=== PATIENT | male | born 1940 | race Caucasian/White ===

== ENCOUNTER → 2020-06-11 08:27 | Outpatient (BNVA) | payer OTHER, MEDICARE, SELFPAY | PROVIDERS: PCP Pediatrics; Visit Provider Internal Medicine Cardiovascular Disease | DX: I48.0 Paroxysmal atrial fibrillation (principal); I10 Essential (primary) hypertension; Z79.01 Long term (current) use of anticoagulants; Z79.899 Other long term (current) drug therapy | CPT/HCPCS: 99212 ==

== ENCOUNTER → 2020-12-11 10:09 | Outpatient (REF) | payer OTHER, MEDICARE, SELFPAY ==
--- NOTE | 2020-12-11 10:13 | CA_ITS ---
Transthoracic Echocardiogram Patient (Last, First, Middle): Rm Palumbo, Gender: Male Date of : 1940 Age: 80 Procedure Date: 12/11/2020 Procedure Type: Transthoracic Echocardiogram Location: OP Height: 177.8 cm Weight: 97.52 kg BSA: 2.15 m2 Heart Rate: bpm BP: 134 / 60 mmHg Senior Quality Control Inspector: Referring MD: Lazaro Blake MD Symptoms: I48.0 - Paroxysmal atrial fibrillation Study Quality: Good ECG Rhythm: Sinus Conclusions: - The left ventricular systolic function is normal. The visually estimated ejection fraction is between 60-65%. - E/E prime ratio is between 8 and 15 consistent with indeterminate filling pressures. Evidence suggests grade I (mild) diastolic dysfunction. - Possible basal inferior hypokinesis in some views. - There is mild calcification of the aortic valve. - There is mild mitral annular calcification. There is mild to moderate mitral valve regurgitation. Findings Left Ventricle Normal left ventricular cavity size. There is mildly increased left ventricular wall thickness. The left ventricular systolic function is normal. The visually estimated ejection fraction is between 60-65%. E/E prime ratio is between 8 and 15 consistent with indeterminate filling pressures. Evidence suggests grade I (mild) diastolic dysfunction. Right Ventricle Normal right ventricular cavity size and systolic function. Atria Both atria are normal in size. Aortic Valve There is a normal trileaflet aortic valve. There is mild calcification of the aortic valve. There is no aortic valve stenosis. There is no aortic valve regurgitation. Mitral Valve There is mild anterior mitral leaflet thickening. There is mild mitral annular calcification. There is mild to moderate mitral valve regurgitation. There is no mitral valve stenosis. Pulmonic Valve The pulmonic valve was not well visualized. Tricuspid Valve There is trace tricuspid valve regurgitation. The pulmonary artery systolic pressure is normal. Great Vessels Top normal ascending aortic size at 3.7 cm. Venous The inferior vena cava is normal in size and collapses greater than 50% with inspiration. Pericardium/Pleural There is no evidence of pericardial effusion. Prior Study Comparison Changes noted compared to prior study dated: 12/08/2017. See comments on wall motion. Measurements 2D Linear Measurements RVIDd: 3.18 RVIDd Index: 1.48 IVSd: 1.01 0.6-0.9/0.6-1.0 cm LVIDd: 4.49 3.9-5.3/4.2-5.9 cm LVIDd Index: 2.09 2.4-3.2/2.2-3.1 cm/m2 LVIDs: 2.78 2.0-3.6 cm LVPWd: 1.19 0.7-1.1 cm Ao Root: 3.80 2.1-3.5 cm LA Diam: 4.50 2.7-3.8/3.0-4.0 cm LAIDs Index: 2.09 1.5-2.3 cm/m2 LV Mass: 217.26 67-162/88-224 g LV Mass Index: 101.05 43-95/49-115 g/m2 LVOT Diam: 2.50 3.0+(-)1.3 cm 2D Systolic Function EF 4C: 56.90 >55% EF 2C: 60.20 >55% EF BiP: 59.00 >55% Mitral Valve MV Pk E: 0.96 MV PK A: 1.30 MV Decel Time: 248.00 E/A: 0.70 E'Lateral: 9.14 E'Medial: 5.66 E/E' Med: 16.90 E/E' Lat: 10.40 MR Vol - PW Dopp: 45.36 MR VTI: 1.62 MR ERO: 28.00 MR Alias Julio: 0.36 MR RAD: 0.80 Aortic Valve AoV Pk Julio: 1.22 AoV Mn Julio: 1.00 AoV VTI: 0.26 AoV Pk Grad: 6.00 Aov Mn Grad: 4.00 CHRIS Cont.VTI: 4.87 LVOT LVOT Pk Julio: 1.02 LVOT Mn Julio: 0.70 LVOT VTI: 0.25 LVOT Pk Grad: 4.00 LVOT Mn Grad: 2.00 LVOT Diam: 2.50 LVOT Area: 4.91 Diastolic Function MV Pk E: 0.96 MV Pk A: 1.30 E/A: 0.70 E'Medial: 5.66 E/E' Med: 16.90 E' Laterial: 9.14 E/E' Lat: 10.40 Tricuspid Valve TR Pk Julio: 2.55 TR Pk Grad: 26.00 RA Press: 3.00 RVSP: 29.00 Great Vessels Aorta Ao Root-2D: 3.80 2.0-3.7 cm Ao Asc: 3.70 2.1-3.4 cm Ao Arch: 3.40 Updated in Other Vendor System with Status of Final Tonio Tidwell MD electronically signed on 12/12/2020 12:50:35 PM with status of Final
== END ==
LOC: HO.CARD 10:09
PROVIDERS: Visit Provider Internal Medicine Cardiovascular Disease
DX: I10 Essential (primary) hypertension (principal); I48.0 Paroxysmal atrial fibrillation
CPT/HCPCS: 93306

== ENCOUNTER → 2020-12-12 08:29 | Outpatient (BNVA) | payer OTHER, MEDICARE, SELFPAY | PROVIDERS: PCP Pediatrics; Visit Provider Internal Medicine Cardiovascular Disease | DX: I48.0 Paroxysmal atrial fibrillation (principal); I10 Essential (primary) hypertension | CPT/HCPCS: 93005; 99212 ==

== ENCOUNTER 2020-12-17 14:47 | Emergency (ER) | payer OTHER, MEDICARE, SELFPAY ==
--- NOTE | ~2020-12-17 | CT_ITS ---
EXAMINATION: CT HEAD WITHOUT CONTRAST CLINICAL INFORMATION: Left-sided headache. Blurry vision. Sensation radiating down left side of body COMPARISON: CT head 03/25/2019. TECHNIQUE: Contiguous axial imaging was performed from the skull base to vertex without intravenous administration of contrast. This CT examination was performed using dose optimization techniques as appropriate, variously including the following: *Automated exposure control *Adjustment of mA and/or kV according to patient size (this includes techniques or standardized protocols for targeted exams where dose is matched to indication/reason for exam; i.e. extremities or head) *Use of iterative reconstruction technique DLP: 689 mGy-cm FINDINGS: There is no evidence of acute intracranial hemorrhage or territorial infarction. No abnormal mass effect or midline shift is seen. Up to white matter differentiation is well preserved. No extra-axial fluid collections are identified. The ventricles are normal in size. There is no abnormal attenuation within the brain parenchyma. The osseous structures and soft tissues are normal. The mastoid air cells and visualized portions of the paranasal sinuses are well aerated. CT/CT head/brain wo con IMPRESSION: No acute intracranial pathology.
[2020-12-17 15:08] VITALS: BP 139/70; PULSE 65; RESP 18; TEMP 37.2; O2SAT 95; BMI 30.8
--- NOTE | 2020-12-17 15:52 | ECG_ITS ---
Test Reason : LLANOS/blurry vision Blood Pressure : / mmHG Vent. Rate : 057 BPM Atrial Rate : 057 BPM P-R Int : 212 ms QRS Dur : 082 ms QT Int : 420 ms P-R-T Axes : 091 009 030 degrees QTc Int : 408 ms Sinus bradycardia with 1st degree A-V block Otherwise normal ECG When compared with ECG of 25-MAR-2019 14:08, No significant change was found Referred By: Majo Chen Electronically Signed By:Remington Johnson
--- NOTE | 2020-12-17 15:54 | ED.GENADULT ---
HPI - General Adult General Chief complaint: General Medical <FEMI Turner - Last Filed: 12/17/20 17:02> Stated complaint: double vision <FEMI Turner - Last Filed: 12/17/20 17:02> Time Seen by Provider: 12/17/20 15:37 <FEMI Turner Last Filed: 12/17/20 17:02> Source: patient <FEMI Turner Last Filed: 12/17/20 17:02> Mode of arrival: ambulatory <FEMI Turner - Last Filed: 12/17/20 17:02> History of Present Illness HPI narrative: 80-year-old male with a past medical history of hypertension, proximal AFib on Xarelto, presenting to the ED complaining of left-sided headache intermittent x1 year worsening over the past few weeks. Admits today was the worst episode which woke him up from sleep with associated blurry vision lasting about 15 seconds and nausea. Reports pain radiates down left side of body. Admits to mild residual headache at present, denies blurry vision now. Denies head trauma/falls, CP/SOB, abdominal pain, weakness, numbness, tingling <FEMI Turner Last Filed: 12/17/20 17:02> Related Data Home medications: Home Medications Medication Instructions Recorded Confirmed citalopram 20 mg tablet 20 mg PO DAILY 06/11/20 06/11/20 diclofenac sodium 1 % topical gel 1 ea TOPICAL QID 06/11/20 06/11/20 albuterol sulfate 90 mcg/actuation 2 puff INHALATION Q4H PRN 12/12/20 aerosol inhaler Previous Rx's Medication Instructions Recorded rivaroxaban 20 mg tablet 20 mg PO DAILY 90 Days #90 tab 05/27/20 diltiazem HCl 180 mg 180 mg PO DAILY #90 cap 10/07/20 capsule,extended release 24 hr <FEMI Turner Last Filed: 12/17/20 17:02> Allergies/adverse reactions: Allergies Allergy/AdvReac Type Severity Reaction Status Date / Time penicillin V Allergy Severe Hives Verified 12/17/20 15:08 piroxicam [PIROXICAM] Allergy Intermediate HIVES/SOB Verified 12/17/20 15:08 rofecoxib [From VIOXX] Allergy Intermediate HIVES/SOB Verified 12/17/20 15:08 Penicillins [PENICILLINS] Allergy Unknown UNKNOWN Verified 12/17/20 15:08 phenacetin [PHENACETIN] Allergy Unknown UNK Verified 12/17/20 15:08 From VICODIN Allergy Intermediate HIVES/SOB Uncoded 04/04/20 16:43 <FEMI Turner - Last Filed: 12/17/20 17:02> Review of Systems Review of Systems: Constitutional: No Fever, No Chills ENT/Mouth: No Hearing loss, No Ear Pain, No Nasal Congestion, No sore throat, No Rhinorrhea, No Swallowing Difficulty Eyes: No Eye Pain, + Vision Changes (resolved) Cardiovascular: No Chest Pain, No SOB, No Edema, No Palpitations Respiratory: No Cough, No Sputum, No Dyspnea Gastrointestinal: + Nausea, No Vomiting, No Diarrhea, No Constipation, No Abdominal pain Genitourinary: No Dysuria, No Urinary Frequency, No Hematuria, No Urinary Flow Changes, No Hesitancy Musculoskeletal: No joint pain, No Myalgias, No Joint Swelling Skin: No Skin Lesions, No rash Neuro: No Weakness, No Numbness, + Paresthesias, No Loss of Consciousness No dizziness, + Headache <FEMI Turner Last Filed: 12/17/20 17:02> Yes all other systems are reviewed and are negative <FEMI Turner - Last Filed: 12/17/20 17:02> Neurologic: Denies Abnormal speech present <FEMI Turner Last Filed: 12/17/20 17:02> [facility] Past Medical History Attestation statement: The following information was validated with the patient. <FEMI Turner - Last Filed: 12/17/20 17:02> Medical History: Medical History HTN (hypertension) Paroxysmal atrial fibrillation Seizure disorder <FEMI Turner Last Filed: 12/17/20 17:02> Social History Social History: Social History Alcohol intake: current Alcohol intake frequency: holidays/special occasions only Alcohol type: beer Cigarette Packs Per Day: 1 Cigarettes Per Day: 20 Use of substances other than those prescribed or required for medical reasons: No Advance Directives: No Advance Directives Information Provided: Yes <FEMI Turner - Last Filed: 12/17/20 17:02> Physical Exam Vital Signs: Vital Signs: Last Vital Signs Temp 97.7 F 12/17/20 17:25 Pulse 58 12/17/20 17:25 Resp 13 12/17/20 17:25 BP 150/78 H 12/17/20 17:25 Pulse Ox 95 12/17/20 17:25 Body Mass Index 30.8 <FEMI Turner - Last Filed: 12/17/20 17:02> Vital Signs: Last Vital Signs Temp 97.7 F 12/17/20 17:25 Pulse 58 12/17/20 17:25 Resp 13 12/17/20 17:25 BP 150/78 H 12/17/20 17:25 Pulse Ox 95 12/17/20 17:25 Body Mass Index 30.8 <FEMI Reyes - Last Filed: 12/17/20 18:47> Const: General: cooperative, healthy appearing, no acute distress, alert, awake and Physically active <FEMI Turner - Last Filed: 12/17/20 17:02> Orientation/consciousness: patient oriented x3 <FEMI Turner - Last Filed: 12/17/20 17:02> Limitations: no limitations <FEMI Turner - Last Filed: 12/17/20 17:02> HENMT: Other: + tenderness to palpation to left temporal region. No deformity/cellulitis <FEMI uTrner - Last Filed: 12/17/20 17:02> Head: Yes normal to inspection and Yes atraumatic <FEMI Turner - Last Filed: 12/17/20 17:02> Ears: hearing grossly normal bilaterally <FEMI Turner - Last Filed: 12/17/20 17:02> General nose exam: Normal external nose present <FEMI Turner - Last Filed: 12/17/20 17:02> Face and sinus: Yes normal facial exam <FEMI Turner - Last Filed: 12/17/20 17:02> Throat: Yes posterior oropharynx normal <FEMI Turner - Last Filed: 12/17/20 17:02> Eyes: General: appearance normal, both eyes and all related structures <Majo Chen [place] - Last Filed: 12/17/20 17:02> Pupils: Equal, round and reactive pupils present <Majo Chen [place] - Last Filed: 12/17/20 17:02> EOM: EOMs intact bilaterally <Majo Chen [place] - Last Filed: 12/17/20 17:02> Neck: Neck: Yes normal visual inspection and Yes no meningeal signs <Majo Chen [place] - Last Filed: 12/17/20 17:02> Resp: Effort & Inspection: normal respiratory effort <Majo Chen [place] - Last Filed: 12/17/20 17:02> Auscultation: clear to auscultation bilaterally, no rales, no rhonchi and no wheezes <Majo Chen [place] - Last Filed: 12/17/20 17:02> Cardio: Rate: regular rate <Majo Chen [place] - Last Filed: 12/17/20 17:02> Heart sounds: S1 normal heart sound present and S2 normal heart sound present <Majo Chen [place] - Last Filed: 12/17/20 17:02> GI: Inspection: Yes normal to inspection <Majo Chen [place] - Last Filed: 12/17/20 17:02> Palpation (GI): Soft to palpation, nontender, no guarding and not rigid <Majo Chen [place] - Last Filed: 12/17/20 17:02> Skin: Rashes: no rashes <Majo Chen [place] - Last Filed: 12/17/20 17:02> Wounds: no wounds <Majo Chen, [place] - Last Filed: 12/17/20 17:02> Neuro: General: patient oriented x3, gait normal, tone normal, moves all extremities, no meningeal signs, no focal motor deficits and CN's II-XI intact bilaterally <Majo Chen [place] - Last Filed: 12/17/20 17:02> Cranial nerves: Yes Equal, round and reactive pupils present <Majo Chen [place] - Last Filed: 12/17/20 17:02> Cognition (Neuro): normal cognition <Majo Chen [place] - Last Filed: 12/17/20 17:02> Speech: No Abnormal speech present <FEMI Turner Last Filed: 12/17/20 17:02> Gait exam (Neuro): Normal gait present <FEMI Turner Last Filed: 12/17/20 17:02> Motor exam (neuro): 5/5 motor strength present throughout, Pronator motor function not present and no tremor noted <FEMI Turner Last Filed: 12/17/20 17:02> Coordination: [id number] test normal <FEMI Turner Last Filed: 12/17/20 17:02> Extrem: General: Yes normal to inspection and Yes no pedal edema <FEMI Turner Last Filed: 12/17/20 17:02> Course Course Course Narrative: -1700--ED care transferred to FEMI Orozco pending labs head CT and re-evaluation <FEMI Turner Last Filed: 12/17/20 17:02> Patient labs are normal. ESR are negative. Troponin negative. Negative for any electrolyte deficiencies. CT came back normal. Repeat neuro exam is intact. Patient informed to follow-up with PCP. <FEMI Reyes Last Filed: 12/17/20 18:47> Medical Decision Making MDM Narrative Medical decision making narrative: 80-year-old male with a past medical history of hypertension, proximal AFib on Xarelto, presenting to the ED complaining of left-sided headache intermittent x1 year worsening over the past few weeks. Admits today was the worst episode which woke him up from sleep with associated blurry vision lasting about 15 seconds and nausea. On exam VSS, NAD, no focal neuro deficits. Concern for temporal arteritis vs trigeminal neuralgia vs complicated migraine/tension headache. Lower concern for TIA/CVA with duration of symptoms & without neuro deficits on exam Plan: EKG, labs, UA, CT head, reassess <FEMI Turner Last Filed: 12/17/20 17:02> Lab Data Result diagrams: : 12/17/20 17:09 12/17/20 17:09 <FEMI Turner Last Filed: 12/17/20 17:02> Labs: Lab Results 12/17/20 12/17/20 12/17/20 Range/Units 17:09 17:09 17:09 WBC 6.5 (4.8-10.8) X10*3/uL RBC 4.40 L (4.60-5.80) X10*6/uL Hgb 14.4 (14.0-18.0) g/dl Hct 42.6 (42-52) % MCV 96.8 (80-98) fL MCH 32.7 (27.0-33.0) pg MCHC 33.8 (31.0-36.0) g/dl RDW 13.5 (11.0-16.0) % Plt Count 211 (160-400) X10*3/uL MPV 9.0 L (9.4-12.4) fL Immature Gran % (Auto) 0.3 (0.0-0.4) % Neut % (Auto) 73.0 (45-73) % Lymph % (Auto) 15.7 L (20-40) % [place] % (Auto) 8.0 (2-11) % Eos % (Auto) 2.5 (0-4) % Baso % (Auto) 0.5 (0-2) % Lymph # (Auto) 1.0 L (1.2-4.9) X10*3/uL [place] # (Auto) 0.5 (0.1-1.2) X10*3/uL Eos # (Auto) 0.2 (0.0-0.4) X10*3/uL Baso # (Auto) 0.0 (0.0-0.2) X10*3/uL Abs Immat Gran (auto) 0.02 (0.00-0.03) X10*3/uL Absolute Neuts (auto) 4.8 (2.0-8.3) X10*3/uL Absolute Nucleated RBC 0.000 (0.0-0.012) X10*3/uL Nucleated RBC % (auto) 0.0 (0.0-0.2) /100WBC ESR (0-15) MM/HR PT 18.1 H (10.8-13.0) SEC INR 1.5 H (0.9-1.1) APTT 38.8 H (24.1-38.0) SEC Sodium 141 (135-145) mmol/L Potassium 4.1 (3.3-5.1) mmol/L Chloride 104 (96-108) mmol/L Carbon Dioxide 30 H (22-29) mmol/L Anion Gap 11 L (12-20) BUN 18 H (9-16) mg/dL Creatinine 0.77 (0.5-1.4) mg/dL Estim Creat Clear Calc 89.6 Estimated GFR > 60 Random Glucose 94 (60-115) mg/dL Calcium 9.4 (8.4-10.2) mg/dL Magnesium 2.3 (1.6-2.6) mg/dL Total Bilirubin 0.4 (0.0-1.0) mg/dL Direct Bilirubin < 0.2 (0.0-0.5) mg/dL AST 15 (5-37) U/L ALT 10 (0-40) U/L Alkaline Phosphatase 53 (39-117) U/L Troponin I High Sens (<3.5-35.0) ng/L Total Protein 6.8 (6.5-8.0) g/dL Albumin 4.2 (3.5-5.0) g/dL Urine Color Urine Appearance Urine pH (5.0-8.0) Ur Specific Raymond (1.005-1.025) Urine Protein (NEG-TRACE) MG/DL Urine Glucose (UA) (NEG) MG/DL Urine Ketones (NEG) MG/DL Urine Blood (NEG) Urine Nitrite (NEG) Ur Leukocyte Esterase (NEG) 12/17/20 12/17/20 12/17/20 Range/Units 17:09 17:09 18:18 WBC (4.8-10.8) X10*3/uL RBC (4.60-5.80) X10*6/uL Hgb (14.0-18.0) g/dl Hct (42-52) % MCV (80-98) fL MCH (27.0-33.0) pg MCHC (31.0-36.0) g/dl RDW (11.0-16.0) % Plt Count (160-400) X10*3/uL MPV (9.4-12.4) fL Immature Gran % (Auto) (0.0-0.4) % Neut % (Auto) (45-73) % Lymph % (Auto) (20-40) % [place] % (Auto) (2-11) % Eos % (Auto) (0-4) % Baso % (Auto) (0-2) % Lymph # (Auto) (1.2-4.9) X10*3/uL [place] # (Auto) (0.1-1.2) X10*3/uL Eos # (Auto) (0.0-0.4) X10*3/uL Baso # (Auto) (0.0-0.2) X10*3/uL Abs Immat Gran (auto) (0.00-0.03) X10*3/uL Absolute Neuts (auto) (2.0-8.3) X10*3/uL Absolute Nucleated RBC (0.0-0.012) X10*3/uL Nucleated RBC % (auto) (0.0-0.2) /100WBC ESR 9 (0-15) MM/HR PT (10.8-13.0) SEC INR (0.9-1.1) APTT (24.1-38.0) SEC Sodium (135-145) mmol/L Potassium (3.3-5.1) mmol/L Chloride (96-108) mmol/L Carbon Dioxide (22-29) mmol/L Anion Gap (12-20) BUN (9-16) mg/dL Creatinine (0.5-1.4) mg/dL Estim Creat Clear Calc Estimated GFR Random Glucose (60-115) mg/dL Calcium (8.4-10.2) mg/dL Magnesium (1.6-2.6) mg/dL Total Bilirubin (0.0-1.0) mg/dL Direct Bilirubin (0.0-0.5) mg/dL AST (5-37) U/L ALT (0-40) U/L Alkaline Phosphatase (39-117) U/L Troponin I High Sens 4.7 (<3.5-35.0) ng/L Total Protein (6.5-8.0) g/dL Albumin (3.5-5.0) g/dL Urine Color YELLOW Urine Appearance HAZY Urine pH 7.0 (5.0-8.0) Ur Specific Raymond 1.015 (1.005-1.025) Urine Protein NEG (NEG-TRACE) MG/DL Urine Glucose (UA) NEG (NEG) MG/DL Urine Ketones NEG (NEG) MG/DL Urine Blood NEG (NEG) Urine Nitrite NEG (NEG) Ur Leukocyte Esterase NEG (NEG) <FEMI Turner - Last Filed: 12/17/20 17:02> Lab Results 12/17/20 12/17/20 12/17/20 Range/Units 17:09 17:09 17:09 WBC 6.5 (4.8-10.8) X10*3/uL RBC 4.40 L (4.60-5.80) X10*6/uL Hgb 14.4 (14.0-18.0) g/dl Hct 42.6 (42-52) % MCV 96.8 (80-98) fL MCH 32.7 (27.0-33.0) pg MCHC 33.8 (31.0-36.0) g/dl RDW 13.5 (11.0-16.0) % Plt Count 211 (160-400) X10*3/uL MPV 9.0 L (9.4-12.4) fL Immature Gran % (Auto) 0.3 (0.0-0.4) % Neut % (Auto) 73.0 (45-73) % Lymph % (Auto) 15.7 L (20-40) % [place] % (Auto) 8.0 (2-11) % Eos % (Auto) 2.5 (0-4) % Baso % (Auto) 0.5 (0-2) % Lymph # (Auto) 1.0 L (1.2-4.9) X10*3/uL [place] # (Auto) 0.5 (0.1-1.2) X10*3/uL Eos # (Auto) 0.2 (0.0-0.4) X10*3/uL Baso # (Auto) 0.0 (0.0-0.2) X10*3/uL Abs Immat Gran (auto) 0.02 (0.00-0.03) X10*3/uL Absolute Neuts (auto) 4.8 (2.0-8.3) X10*3/uL Absolute Nucleated RBC 0.000 (0.0-0.012) X10*3/uL Nucleated RBC % (auto) 0.0 (0.0-0.2) /100WBC ESR (0-15) MM/HR PT 18.1 H (10.8-13.0) SEC INR 1.5 H (0.9-1.1) APTT 38.8 H (24.1-38.0) SEC Sodium 141 (135-145) mmol/L Potassium 4.1 (3.3-5.1) mmol/L Chloride 104 (96-108) mmol/L Carbon Dioxide 30 H (22-29) mmol/L Anion Gap 11 L (12-20) BUN 18 H (9-16) mg/dL Creatinine 0.77 (0.5-1.4) mg/dL Estim Creat Clear Calc 89.6 Estimated GFR > 60 Random Glucose 94 (60-115) mg/dL Calcium 9.4 (8.4-10.2) mg/dL Magnesium 2.3 (1.6-2.6) mg/dL Total Bilirubin 0.4 (0.0-1.0) mg/dL Direct Bilirubin < 0.2 (0.0-0.5) mg/dL AST 15 (5-37) U/L ALT 10 (0-40) U/L Alkaline Phosphatase 53 (39-117) U/L Troponin I High Sens (<3.5-35.0) ng/L Total Protein 6.8 (6.5-8.0) g/dL Albumin 4.2 (3.5-5.0) g/dL Urine Color Urine Appearance Urine pH (5.0-8.0) Ur Specific Raymond (1.005-1.025) Urine Protein (NEG-TRACE) MG/DL Urine Glucose (UA) (NEG) MG/DL Urine Ketones (NEG) MG/DL Urine Blood (NEG) Urine Nitrite (NEG) Ur Leukocyte Esterase (NEG) 12/17/20 12/17/20 12/17/20 Range/Units 17:09 17:09 18:18 WBC (4.8-10.8) X10*3/uL RBC (4.60-5.80) X10*6/uL Hgb (14.0-18.0) g/dl Hct (42-52) % MCV (80-98) fL MCH (27.0-33.0) pg MCHC (31.0-36.0) g/dl RDW (11.0-16.0) % Plt Count (160-400) X10*3/uL MPV (9.4-12.4) fL Immature Gran % (Auto) (0.0-0.4) % Neut % (Auto) (45-73) % Lymph % (Auto) (20-40) % [place] % (Auto) (2-11) % Eos % (Auto) (0-4) % Baso % (Auto) (0-2) % Lymph # (Auto) (1.2-4.9) X10*3/uL [place] # (Auto) (0.1-1.2) X10*3/uL Eos # (Auto) (0.0-0.4) X10*3/uL Baso # (Auto) (0.0-0.2) X10*3/uL Abs Immat Gran (auto) (0.00-0.03) X10*3/uL Absolute Neuts (auto) (2.0-8.3) X10*3/uL Absolute Nucleated RBC (0.0-0.012) X10*3/uL Nucleated RBC % (auto) (0.0-0.2) /100WBC ESR 9 (0-15) MM/HR PT (10.8-13.0) SEC INR (0.9-1.1) APTT (24.1-38.0) SEC Sodium (135-145) mmol/L Potassium (3.3-5.1) mmol/L Chloride (96-108) mmol/L Carbon Dioxide (22-29) mmol/L Anion Gap (12-20) BUN (9-16) mg/dL Creatinine (0.5-1.4) mg/dL Estim Creat Clear Calc Estimated GFR Random Glucose (60-115) mg/dL Calcium (8.4-10.2) mg/dL Magnesium (1.6-2.6) mg/dL Total Bilirubin (0.0-1.0) mg/dL Direct Bilirubin (0.0-0.5) mg/dL AST (5-37) U/L ALT (0-40) U/L Alkaline Phosphatase (39-117) U/L Troponin I High Sens 4.7 (<3.5-35.0) ng/L Total Protein (6.5-8.0) g/dL Albumin (3.5-5.0) g/dL Urine Color YELLOW Urine Appearance HAZY Urine pH 7.0 (5.0-8.0) Ur Specific [place] 1.015 (1.005-1.025) Urine Protein NEG (NEG-TRACE) MG/DL Urine Glucose (UA) NEG (NEG) MG/DL Urine Ketones NEG (NEG) MG/DL Urine Blood NEG (NEG) Urine Nitrite NEG (NEG) Ur Leukocyte Esterase NEG (NEG) <FEMI Reyes - Last Filed: 12/17/20 18:47> Discharge Plan Discharge Prescriptions: No Action Xarelto 20 mg tablet 20 mg PO DAILY 90 Days Qty: 90 RF: 1 diltiazem HCl 180 mg capsule,extended release 24hr 180 mg PO DAILY Qty: 90 RF: 1 citalopram 20 mg tablet 20 mg PO DAILY RF: 0 diclofenac sodium 1 % gel 1 ea topical QID RF: 0 albuterol sulfate 90 mcg/actuation HFA aerosol inhaler 2 puff inhalation Q4H PRN (Reason: wheezing) RF: 0 <FEMI Turner - Last Filed: 12/17/20 17:02>
[2020-12-17 17:16] LABS: MANUAL DIFF FLAG NO
[2020-12-17 17:19] LABS: Basophils Percent Auto 0.5 % (0-2); Eosinophils Absolute Auto 0.2 X10*3/uL (0.0-0.4); Eosinophils Percent Auto 2.5 % (0-4); Hematocrit 42.6 % (42-52); Hemoglobin 14.4 g/dl (14.0-18.0); Imm Gran Abs Auto 0.02 X10*3/uL (0.00-0.03); Imm Gran Pct Auto 0.3 % (0.0-0.4); Lymphocytes Percent Auto 15.7 % (20-40); Mean Corpuscular HGB Conc 33.8 g/dl (31.0-36.0); Mean Corpuscular Hemoglobin 32.7 pg (27.0-33.0); Mean Corpuscular Volume 96.8 fL (80-98); Monocytes Absolute Auto 0.5 X10*3/uL (0.1-1.2); Neutrophils Absolute Auto 4.8 X10*3/uL (2.0-8.3); Platelet Count 211 X10*3/uL (160-400); Red Cell Distribution Width 13.5 % (11.0-16.0); White Blood Count 6.5 X10*3/uL (4.8-10.8)
[2020-12-17 17:25] VITALS: BP 150/78; PULSE 58; RESP 13; TEMP 36.5; O2SAT 95
[2020-12-17] MEDS: Acetaminophen 325 MG TABLET 650 MG PO (17:33)
[2020-12-17 17:47] LABS: Alanine Aminotransferase 10 U/L (0-40); Albumin Level 4.2 g/dL (3.5-5.0); Alkaline Phosphatase 53 U/L (39-117); Anion Gap 11 (12-20); Aspartate Amino Transferase 15 U/L (5-37); Bilirubin Direct < 0.2 mg/dL (0.0-0.5); Bilirubin Total 0.4 mg/dL (0.0-1.0); Blood Urea Nitrogen 18 mg/dL (9-16); Calcium 9.4 mg/dL (8.4-10.2); Carbon Dioxide 30 mmol/L (22-29); Chloride 104 mmol/L (96-108); Creatinine Clr Calc Pharmacy 89.6; Estimated Glomerular Filt Rate > 60; Glucose Random 94 mg/dL (60-115); Magnesium 2.3 mg/dL (1.6-2.6); Potassium 4.1 mmol/L (3.3-5.1); Sodium 141 mmol/L (135-145); Total Protein 6.8 g/dL (6.5-8.0)
[2020-12-17 17:53] LABS: INTERNATIONAL NORM RATIO 1.5 (0.9-1.1); Prothrombin Time 18.1 SEC (10.8-13.0)
[2020-12-17 17:55] LABS: Troponin-I High Sensitivity 4.7 ng/L (<3.5-35.0)
[2020-12-17 17:59] LABS: Partial Thromboplastin Time 38.8 SEC (24.1-38.0)
[2020-12-17 18:06] LABS: Erythrocyte Sedimentation Rate 9 MM/HR (0-15)
[2020-12-17 18:28] LABS: Glucose Urine UA NEG (NEG); Leukocyte Esterase Urine NEG (NEG); Nitrite Urine NEG (NEG); Specific Gravity - Urine 1.015 (1.005-1.025); Urine Blood NEG (NEG); Urine Ketones NEG (NEG); Urine Protein NEG (NEG-TRACE)
[2020-12-17 18:29] LABS: Appearance Urine HAZY; Color Urine YELLOW
== END 2020-12-17 19:07 | disposition home or self-care (01) ==
PROVIDERS: Physician Assistant; Emergency Provider Emergency Medicine Emergency Medical Services; PCP Pediatrics
DX: H53.2 Diplopia (principal); I48.91 Unspecified atrial fibrillation; R51.9 Headache, unspecified; I10 Essential (primary) hypertension; F17.210 Nicotine dependence, cigarettes, uncomplicated; Z79.01 Long term (current) use of anticoagulants; Z79.899 Other long term (current) drug therapy; Z71.6 Tobacco abuse counseling
CPT/HCPCS: 36415; 70450; 80048; 80076; 81003; 83735; 84484; 85025; 85610; 85652; 85730; 93005; 99284

== ENCOUNTER → 2021-05-22 12:39 | Outpatient (BNVA) | payer OTHER, SELFPAY | PROVIDERS: PCP Pediatrics; Referring Provider Pediatrics; Visit Provider Internal Medicine Cardiovascular Disease | DX: R07.89 Other chest pain (principal); I48.0 Paroxysmal atrial fibrillation; I10 Essential (primary) hypertension | CPT/HCPCS: 99212 ==

== ENCOUNTER → 2021-06-06 09:22 | Outpatient (REF) | payer OTHER, SELFPAY ==
--- NOTE | ~2021-06-06 | NM_ITS ---
Lexiscan Myocardial perfusion study Indication: Chest tightness, assess for coronary disease and ischemia Technique: The patient was brought in for a Lexiscan perfusion study on 06/06/2021 and was injected 0.4 mg of Lexiscan intravenously. Within a minute of this injection 35 mCi of sestamibi was given intravenously. Images were obtained using the SPECT gamma camera interlaced with the gating device. Images were obtained in supine position. Resting perfusion study was performed on 06/09/2021. Patient was administered 35 mCi of sestamibi intravenously at rest. Images were then obtained in supine position. Total DLP 89mGy-cm. Images were processed with the software and compared side to side in short axis, horizontal long axis and vertical long axis views. Findings: Raw acquisition was reviewed. The stress perfusion study showed diminished tracer uptake along the inferior wall. With CT attenuation correction, there is improvement and hence could be components of diaphragmatic attenuation artifact. The gated study shows normal LV systolic function with calculated LVEF of 64%. LV cavity is normal in size. The gated study shows normal wall thickening and contraction of segments. Resting study shows diminished tracer uptake along the inferior wall similar to the stress acquisition. There is improvement with CT attenuation correction. Gating at rest reveals normal wall motion with ejection fraction at 72%. The findings are consistent with no reversible defects. Fixed inferior defect suspected to be from diaphragmatic attenuation artifact. NM/NM zaheer perf SPECT rest & str Impression: 1. Myocardial perfusion imaging study shows no evidence of any ischemia or infarction. Fixed inferior defect suspected to be from diaphragmatic attenuation artifact. 2. Gated LVEF is 64% during stress and 72% during rest. 3. Transient ischemic dilatation not present. EKG component of the test reported separately.
--- NOTE | 2021-06-06 09:26 | CA_ITS ---
Acquisition Time: 2021-06-06 10:25:41 Total Exercise Time: 00:02:05 Test Indications: Chest Pain Medications: Protocol: LEXISCAN Max HR: 090 BPM 64% of Pred: 140 BPM Max BP: 176/050 mmHG Max Work Load: 1.5 METS Pharmacological stress test with Lexiscan injection, while walking on treadmill, without anginal symptoms, with isolated PACs and rare PVC, with normotensive response to injection, with nondiagnostic EKG for ischemia. Nuclear images pending. Test reviewed with Dr Johnson. Referred By: Lazaro Blake Overread By: SEGUNDO HOOD
== END ==
LOC: HO.CARD 09:22
PROVIDERS: PCP Pediatrics; Visit Provider Internal Medicine Cardiovascular Disease
DX: R07.89 Other chest pain (principal)
CPT/HCPCS: 78452; 93017; A9500; J0280; J2785

== ENCOUNTER 2021-11-13 10:22 | Emergency (ER) | payer OTHER, SELFPAY ==
--- NOTE | ~2021-11-13 | CT_ITS ---
EXAMINATION: CT ANGIOGRAM OF THE CHEST WITH AND WITHOUT CONTRAST (CT PULMONARY ANGIOGRAM FOR PE) CLINICAL INFORMATION: Reason for Exam recent travel, CP, SOB COMPARISON: 11/12/2015 TECHNIQUE: Prior to contrast administration, noncontrast localization images were obtained. Subsequently, multidetector volumetric imaging was performed from the thoracic inlet to below the diaphragms following the administration of 65 mL Omnipaque 350 intravenous contrast. No contrast reaction reported Sagittal, coronal, and MIP oblique sagittal reformatted images were obtained on the CT workstation, uploaded to PACS, and reviewed. This CT examination was performed using dose optimization techniques as appropriate, variously including the following: *Automated exposure control *Adjustment of mA and/or kV according to patient size (this includes techniques or standardized protocols for targeted exams where dose is matched to indication/reason for exam; i.e. extremities or head) *Use of iterative reconstruction technique Total exam dose-length product 479 mGy-cm FINDINGS: QUALITY OF STUDY/CONTRAST BOLUS: Satisfactory. PULMONARY ARTERIES: No central or segmental pulmonary emboli. May pulmonary artery is dilated to 36 mm congestive hypertension. THORACIC AORTA: No aneurysm or dissection. LUNG: No parenchymal consolidation. Mild emphysema. Diffuse mild subpleural reticulation suggestive of very early/mild pulmonary fibrosis. Mild diffuse bronchial thickening without bronchiectasis. PLEURA: No pleural effusion or pneumothorax. MEDIASTINUM: Mild cardiomegaly. No pericardial effusion. No hilar or mediastinal lymphadenopathy. No evidence of septal bowing or right heart strain. CHEST WALL/AXILLA: No axillary or internal mammary lymphadenopathy. OSSEOUS STRUCTURES: No acute or suspicious osseous abnormality. UPPER ABDOMEN: Cholecystectomy. Benign right renal cysts require no further follow-up. Diverticulosis. CT/CT angio chest PE protocol IMPRESSION: * No pulmonary embolism. * Mild emphysema and diffuse mild bronchial thickening as can be seen with bronchitis or asthma. * Evidence of pulmonary hypertension. * Mild cardiomegaly. * Triple vessel coronary calcifications. VTE: negative
--- NOTE | ~2021-11-13 | CT_ITS ---
EXAMINATION: CT HEAD WITHOUT CONTRAST CLINICAL INFORMATION: Increased weakness. COMPARISON: CT head from 12/17/2020. TECHNIQUE: Contiguous axial imaging was performed from the skull base to vertex without intravenous administration of contrast. This CT examination was performed using dose optimization techniques as appropriate, variously including the following: *Automated exposure control. *Adjustment of mA and/or kV according to patient size (this includes techniques or standardized protocols for targeted exams where dose is matched to indication/reason for exam; i.e. extremities or head). *Use of iterative reconstruction technique. DLP: 1159 mGy-cm FINDINGS: There is no evidence of acute intracranial hemorrhage or edematous territorial infarction. There is a lacunar infarct of the left caudate head that is new compared to 2020 but otherwise age indeterminate. No additional loss of pereira-white matter differentiation. Scattered hypoattenuation in the periventricular and deep white matter are consistent with moderate microangiopathy. Proportional prominence of the ventricles and sulcal spaces. No evidence for obstructive hydrocephalus. No abnormal mass effect or midline shift. No extra-axial fluid collections. No acute soft tissue or osseous abnormalities. Mild mucosal thickening the paranasal sinuses. Mild leftward nasal septal deviation. Small left-sided mastoid effusion. The right-sided mastoid air cells are clear. Bilateral lens extractions. CT/CT head/brain wo con IMPRESSION: 1. No evidence of acute intracranial hemorrhage or edematous territorial infarction. 2. Moderate underlying microangiopathy and generalized cerebral volume loss. There is a lacunar infarct in the left caudate head that is new compared to 2020 but otherwise age indeterminate.
[2021-11-13 10:33] VITALS: BP 160/70; PULSE 72; O2SAT 96
--- NOTE | 2021-11-13 10:34 | ED_ITS ---
HPI - General Adult General Chief complaint: Arrhythmia/Palpitations Stated complaint: INCR WEAKNESS,NOT FEELING WELL Time Seen by Provider: 11/13/21 10:34 Source: patient, family (mother) and EMS Mode of arrival: EMS Limitations: no limitations History of Present Illness HPI narrative: Patient is a 81 year old male presenting to the emergency department today with general weakness. Patient states that he has felt weak and had an episode of palpitations that resolved a few days ago. Patient states that he has a history of atrial fibrillation for which he is on Xarelto. Patient denies any current d izziness, lightheadedness, abdominal pain, nausea, vomiting, fever, chills, blurry vision, double vision, loss of vision, chest pain, difficulty breathing, shortness of breath, back pain, night sweats, pain with urination, increased urinary frequency, increased urinary urgency, blood in his urine or stool, syncope or a near syncopal episode, recent trauma or falls, bowel incontinence, bladder incontinence, bowel retention, bladder retention, or any other complaints at this time. Onset (ago): day(s) Treatments prior to arrival: none Related Data Home Medications Medication Instructions Recorded Confirmed citalopram 20 mg tablet 20 mg PO DAILY 06/11/20 05/22/21 diclofenac sodium 1 % topical gel 1 ea TOPICAL QID 06/11/20 05/22/21 albuterol sulfate 90 mcg/actuation 2 puff INHALATION Q4H PRN 12/12/20 05/22/21 aerosol inhaler ascorbic acid (vitamin C) 500 mg mg PO 05/22/21 05/22/21 capsule cholecalciferol (vitamin D3) 25 25 mcg PO DAILY 05/22/21 05/22/21 mcg (1,000 unit) capsule nitric oxide gas 100 PPM for ea INHALATION 05/22/21 05/22/21 inhalation tamsulosin 0.4 mg capsule 0.4 mg PO DAILY 05/22/21 05/22/21 Previous Rx's Medication Instructions Recorded rivaroxaban 20 mg tablet (Xarelto) 20 mg PO DAILY 90 Days #90 tab 12/25/20 diltiazem HCl 180 mg 180 mg PO DAILY #90 cap 04/18/21 capsule,extended release 24 hr Allergies Allergy/AdvReac Type Severity Reaction Status Date / Time penicillin V Allergy Severe Hives Verified 11/13/21 10:37 piroxicam [PIROXICAM] Allergy Intermediate HIVES/SOB Verified 11/13/21 10:37 rofecoxib [From VIOXX] Allergy Intermediate HIVES/SOB Verified 11/13/21 10:37 Penicillins [PENICILLINS] Allergy Unknown UNKNOWN Verified 11/13/21 10:37 phenacetin [PHENACETIN] Allergy Unknown UNK Verified 11/13/21 10:37 From VICODIN Allergy Intermediate HIVES/SOB Uncoded 04/04/20 16:43 Review of Systems Constitutional: Constitutional: Reports no additional constitutional complaints, Denies chills, Denies fever(s) and Denies night sweats Eyes: Eyes: Reports no additional eye complaints, Denies blurry vision, Denies change in vision, Denies diplopia, Denies eye discharge, Denies loss of vision and Denies eye pain ENT: Denies dizziness Cardiovascular: Cardiovascular: Reports no additional cardiovascular complaints, Denies chest pain, Denies lightheadedness, Denies Loss of Consciousness and Denies dyspnea Respiratory: Respiratory: Reports no additional respiratory complaints and Denies dyspnea Gastrointestinal: Gastrointestinal: Reports no additional gastrointestinal complaints, Denies abdominal pain, Denies melena, Denies hematochezia, Denies change in bowel habits and Denies change in stool character Genitourinary: Genitourinary: Reports no additional male genitourinary complaints, Denies hematuria, Denies oliguria, Denies difficulty urinating, Denies dysuria, Denies urinary frequency, Denies urinary hesitancy, Denies ur inary incontinence and Denies urinary urgency Musculoskeletal: Musculoskeletal: Reports no additional musculoskeletal complaints, Denies numbness and Denies tingling Neurologic: Denies dizziness, Denies loss of vision, Denies numbness and Denies tingling Psychiatric: Psychiatric: Reports no additional psychiatric complaints Endocrine: Endocrine: Reports no additional endocrine complaints Hematologic/Lymphatic: Hematologic/Lymphatic: Reports no additional hematologic/lymphatic complaints Allergic/Immunologic: Allergic/Immunologic: Reports no additional allergic/immunologic complaints PMFSH Past Medical History Attestation statement: The following information was validated with the patient. Source: old records reviewed Medical History HTN (hypertension) Paroxysmal atrial fibrillation Seizure disorder Social History Social History Alcohol intake: current Alcohol intake frequency: holidays/special occasions only Alcohol type: beer Patient Tobacco Use Status: Never used Tobacco Cigarette Packs Per Day: 1 Cigarettes Per Day: 20 Use of substances other than those prescribed or required for medical reasons: No Advance Directives: No Advance Directives Information Provided: No Physical Exam ED Vital Signs: Vital Signs - 24 hr 11/13/21 10:37 11/13/21 10:52 11/13/21 13:03 Temperature 97.5 F 98.5 F Pulse Rate 64 60 60 Respiratory Rate 18 17 18 Blood Pressure 148/68 H 143/67 H 139/63 Pulse Oximetry 95 94 95 BMI result Body Mass Index 34.1 Const General: cooperative, no acute distress, alert and awake Nutritional Appearance: well nourished Orientation/consciousness: patient oriented x3 Limitations: no limitations HENMT Head: Yes normal to inspection and Yes atraumatic Ears: hearing grossly normal bilaterally and external ears normal General nose exam: Normal external nose present, no nasal discharge noted and no epistaxis Face and sinus: Yes normal facial exam, No abrasion and No laceration Mouth: Normal oral and palatal mucosa present, no drooling and no muffled voice Eyes General: appearance normal, both eyes and all related structures Periorbital: periorbital findings normal Eyelids: Yes eyelids normal Conjunctivae: conjunctivae normal Pupils: Equal, round and reactive pupils present EOM: EOMs intact bilaterally Neck Neck: Yes normal visual inspection, Yes full ROM and Yes no lymphadenopathy Chest Chest palpation & inspection: normal inspection of the chest Resp Effort & Inspection: normal respiratory effort and able to speak in complete sentences Auscultation: clear to auscultation bilaterally Cardio Rate: regular rate Rhythm: regular rhythm GI Inspection: Yes normal to inspection Neuro General: patient oriented x3 and moves all extremities Cranial nerves: Yes Equal, round and reactive pupils present Cognition (Neuro): normal cognition Motor exam (neuro): 5/5 motor strength present throughout Sensory Exam: Normal double simultaneous stimulation for sensation Coordination: [id number]-[id number] test normal Extrem General: Yes normal to inspection, Yes full ROM and Yes capillary refill normal Psych Appearance: grossly normal Mental Status: mental status grossly normal Affect: normal affect Attitude: cooperative Thought process: Normal thought process present Thought content: Normal thought content present Insight: Good insight present (Psych) Medical Decision Making MDM Narrative Medical decision making narrative: Patient is an 81 year old male presenting to the emergency department today with generalized weakness. Patient's physical exam was unremarkable. Patient's blood work was unremarkable. Patient's urine showed no acute process. Patient's EKG was unremarkable. Patient's chest CT PE showed no acute process. I explained my physical exam findings as well as all test results to the patient and the patient's daughter. I answered all questions asked by the patient and the patient's daughter. I stressed the importance of the patient taking his medication as prescribed. I stressed the importance of the patient following up with his primary care provider and a coordinator of health services. I stressed the importance of the patient returning to the emergency department immediately if his symptoms were to worsen or if he were to develop any dizziness, shortness of breath, difficulty breathing, chest pain, blurry vision, loss of vision, nausea, vomiting, abdominal pain, fever, chills, back pain, or any other complaints. Patient and the patient's daughter verbalized agreement and understanding with this treatment plan and discharge. Differential Diagnosis Differential Diagnosis: weakness, electrolyte imbalance Medical Records Medical records reviewed: Yes I reviewed the patient's medical records. Lab Data Result diagrams: 11/13/21 11:00 11/13/21 11:00 Labs: Lab Results 11/13/21 11/13/21 11/13/21 Range/Units 11:00 11:00 11:00 WBC 5.6 (4.8-10.8) X10*3/uL RBC 4.35 L (4.60-5.80) X10*6/uL Hgb 13.6 L (14.0-18.0) g/dl Hct 41.5 L (42.0-52.0) % MCV 95.4 (80.0-98.0) fL MCH 31.3 (27.0-33.0) pg MCHC 32.8 (31.0-36.0) g/dl RDW 13.8 (11.0-16.0) % Plt Count 208 (160-400) X10*3/uL MPV 9.3 L (9.4-12.4) fL Immature Gran % (Auto) 0.2 (0.0-0.4) % Neut % (Auto) 79.6 H (45-73) % Lymph % (Auto) 12.2 L (20-40) % [place] % (Auto) 5.0 (2-11) % Eos % (Auto) 2.3 (0-4) % Baso % (Auto) 0.7 (0-2) % Lymph # (Auto) 0.7 L (1.2-4.9) X10*3/uL [place] # (Auto) 0.3 (0.1-1.2) X10*3/uL Eos # (Auto) 0.1 (0.0-0.4) X10*3/uL Baso # (Auto) 0.0 (0.0-0.2) X10*3/uL Abs Immat Gran (auto) 0.01 (0.00-0.03) X10*3/uL Absolute Neuts (auto) 4.5 (2.0-8.3) x10*3/uL Absolute Nucleated RBC 0.000 (0.0-0.012) X10*3/uL Nucleated RBC % (auto) 0.0 (0.0-0.2) /100WBC PT 21.6 H (9.9-13.0) SEC INR 1.9 H (0.9-1.1) APTT 44.5 H (24.1-38.0) SEC Sodium 139 (135-145) mmol/L Potassium 4.3 (3.3-5.1) mmol/L Chloride 102 (96-108) mmol/L Carbon Dioxide 29 (22-29) mmol/L Anion Gap 12 (12-20) BUN 13 (9-16) mg/dL Creatinine 0.83 (0.5-1.4) mg/dL Estim Creat Clear Calc 83.2 Estimated GFR > 60 Random Glucose 156 H D (60-115) mg/dL Calcium 9.4 (8.4-10.2) mg/dL Magnesium 2.0 (1.6-2.6) mg/dL Total Bilirubin 0.7 (0.0-1.0) mg/dL AST 14 (5-37) U/L ALT 9 (0-40) U/L Alkaline Phosphatase 49 (39-117) U/L Troponin I High Sens (<3.5-35.0) ng/L Total Protein 6.4 L (6.5-8.0) g/dL Albumin 3.8 (3.5-5.0) g/dL COVID-19 (DIANA) (Negative) COVID-19 Clin Com 11/13/21 11/13/21 Range/Units 11:00 11:00 WBC (4.8-10.8) X10*3/uL RBC (4.60-5.80) X10*6/uL Hgb (14.0-18.0) g/dl Hct (42.0-52.0) % MCV (80.0-98.0) fL MCH (27.0-33.0) pg MCHC (31.0-36.0) g/dl RDW (11.0-16.0) % Plt Count (160-400) X10*3/uL MPV (9.4-12.4) fL Immature Gran % (Auto) (0.0-0.4) % Neut % (Auto) (45-73) % Lymph % (Auto) (20-40) % [place] % (Auto) (2-11) % Eos % (Auto) (0-4) % Baso % (Auto) (0-2) % Lymph # (Auto) (1.2-4.9) X10*3/uL [place] # (Auto) (0.1-1.2) X10*3/uL Eos # (Auto) (0.0-0.4) X10*3/uL Baso # (Auto) (0.0-0.2) X10*3/uL Abs Immat Gran (auto) (0.00-0.03) X10*3/uL Absolute Neuts (auto) (2.0-8.3) x10*3/uL Absolute Nucleated RBC (0.0-0.012) X10*3/uL Nucleated RBC % (auto) (0.0-0.2) /100WBC PT (9.9-13.0) SEC INR (0.9-1.1) APTT (24.1-38.0) SEC Sodium (135-145) mmol/L Potassium (3.3-5.1) mmol/L Chloride (96-108) mmol/L Carbon Dioxide (22-29) mmol/L Anion Gap (12-20) BUN (9-16) mg/dL Creatinine (0.5-1.4) mg/dL Estim Creat Clear Calc Estimated GFR Random Glucose (60-115) mg/dL Calcium (8.4-10.2) mg/dL Magnesium (1.6-2.6) mg/dL Total Bilirubin (0.0-1.0) mg/dL AST (5-37) U/L ALT (0-40) U/L Alkaline Phosphatase (39-117) U/L Troponin I High Sens < 3.5 (<3.5-35.0) ng/L Total Protein (6.5-8.0) g/dL Albumin (3.5-5.0) g/dL COVID-19 (DIANA) Negative (Negative) COVID-19 Clin Com See Note Imaging Data CT scan - chest: Attestation: I personally reviewed and interpreted this imaging study as follows: Radiologist's impression: EXAMINATION: CT ANGIOGRAM OF THE CHEST WITH AND WITHOUT CONTRAST (CT PULMONARY ANGIOGRAM FOR PE) CLINICAL INFORMATION: Reason for Exam recent travel, CP, SOB COMPARISON: 11/12/2015? TECHNIQUE: Prior to contrast administration, noncontrast localization images were obtained. ? Subsequently, multidetector volumetric imaging was performed from the thoracic inlet to below the diaphragms following the administration of 65 mL Omnipaque 350 intravenous contrast. No contrast reaction reported Sagittal, coronal, and MIP oblique sagittal reformatted images were obtained on the CT workstation, uploaded to PACS, and reviewed. This CT examination was performed using dose optimization techniques as appropriate, variously including the following: *Automated exposure control *Adjustment of mA and/or kV according to patient size (this includes techniques or standardized protocols for targeted exams where dose is matched to indication/reason for exam; i.e. extremities or head) *Use of iterative reconstruction technique Total exam dose-length product 479 mGy-cm FINDINGS: QUALITY OF STUDY/CONTRAST BOLUS: Satisfactory. PULMONARY ARTERIES: No central or segmental pulmonary emboli. May pulmonary artery is dilated to 36 mm congestive hypertension. THORACIC AORTA: No aneurysm or dissection. LUNG: No parenchymal consolidation. Mild emphysema. Diffuse mild subpleural reticulation suggestive of very early/mild pulmonary fibrosis. Mild diffuse bronchial thickening without bronchiectasis. PLEURA: No pleural effusion or pneumothorax. MEDIASTINUM: Mild cardiomegaly. No pericardial effusion.? No hilar or mediastinal lymphadenopathy.? No evidence of septal bowing or right heart strain. CHEST WALL/AXILLA: No axillary or internal mammary lymphadenopathy. OSSEOUS STRUCTURES: No acute or suspicious osseous abnormality.? UPPER ABDOMEN: Cholecystectomy. Benign right renal cysts require no further follow-up. Diverticulosis. CT/CT angio chest PE protocol IMPRESSION: *? No pulmonary embolism. *? Mild emphysema and diffuse mild bronchial thickening as can be seen with bronchitis or asthma. *? Evidence of pulmonary hypertension. *? Mild cardiomegaly. *? Triple vessel coronary calcifications. ? VTE: negative Dictated By: Mickey Aviles MD Signed By: Electronically signed by Mickey Aviles MD 11/13/[address] scan - head: Attestation: I personally reviewed and interpreted this imaging study as follows: Radiologist's impression: EXAMINATION: CT HEAD WITHOUT CONTRAST CLINICAL INFORMATION: Increased weakness.? COMPARISON: CT head from 12/17/2020. TECHNIQUE: Contiguous axial imaging was performed from the skull base to vertex without intravenous administration of contrast. This CT examination was performed using dose optimization techniques as appropriate, variously including the following: *Automated exposure control. *Adjustment of mA and/or kV according to patient size (this includes techniques or standardized protocols for targeted exams where dose is matched to indication/reason for exam; i.e. extremities or head). *Use of iterative reconstruction technique. DLP: 1159 mGy-cm FINDINGS: There is no evidence of acute intracranial hemorrhage or edematous territorial infarction. There is a lacunar infarct of the left caudate head that is new compared to 2020 but otherwise age indeterminate. No additional loss of pereira-white matter differentiation. Scattered hypoattenuation in the periventricular and deep white matter are consistent with moderate microangiopathy. Proportional prominence of the ventricles and sulcal spaces. No evidence for obstructive hydrocephalus. No abnormal mass effect or midline shift. No extra-axial fluid collections. No acute soft tissue or osseous abnormalities. Mild mucosal thickening the paranasal sinuses. Mild leftward nasal septal deviation. Small left-sided mastoid effusion. The right-sided mastoid air cells are clear. Bilateral lens extractions. ? CT/CT head/brain wo con IMPRESSION: 1. No evidence of acute intracranial hemorrhage or edematous territorial infarction. 2. Moderate underlying microangiopathy and generalized cerebral volume loss. There is a lacunar infarct in the left caudate head that is new compared to 2020 but otherwise age indeterminate. Dictated By: Nitin Alvarez DO Signed By: Electronically signed by Nitin Alvarez DO 11/13/21 9845 Discharge Plan Discharge Clinical Impression: History of atrial fibrillation, COPD (chronic obstructive pulmonary disease) Patient Disposition: Home, Self-Care Instructions: Weakness (ED) Additional Instructions: Follow up with your primary care provider. Return to the emergency department immediately if your symptoms worsen or if you develop any dizziness, shortness of breath, difficulty breathing, chest pain, blurry vision, loss of vision, nausea, vomiting, abdominal pain, fever, chills, back pain, or any other complaints. Prescriptions: No Action Xarelto 20 mg tablet 20 mg PO DAILY 90 Days Qty: 90 3RF Rx Instructions: must administer with evening meal diltiazem HCl 180 mg capsule,extended release 24hr 180 mg PO DAILY Qty: 90 3RF citalopram 20 mg tablet 20 mg PO DAILY 0RF diclofenac sodium 1 % gel 1 ea topical QID 0RF albuterol sulfate 90 mcg/actuation HFA aerosol inhaler 2 puff inhalation Q4H PRN (Reason: wheezing) 0RF tamsulosin 0.4 mg capsule 0.4 mg PO DAILY 0RF cholecalciferol (vitamin D3) 25 mcg (1,000 unit) capsule 25 mcg PO DAILY 0RF ascorbic acid (vitamin C) 500 mg capsule PO 0RF nitric oxide gas 100 PPM gas inhalation 0RF [place] [facility] [place]] (Follow up with a lung specialist. ) Tona Hook MD [Primary Care Provider] - (Follow up with your PCP. ) Interventions: ED Discharge Assessment Last Done: 11/13/21 14:44 Discharge Date/Time: 11/13/21 14:46 Print Language: Irish
--- NOTE | 2021-11-13 10:35 | ECG_ITS ---
Test Reason : PALPITATIONS Blood Pressure : / mmHG Vent. Rate : 068 BPM Atrial Rate : 068 BPM P-R Int : 182 ms QRS Dur : 080 ms QT Int : 410 ms P-R-T Axes : 084 029 037 degrees QTc Int : 435 ms Normal sinus rhythm Normal ECG When compared with ECG of 17-DEC-2020 17:41, ID interval has decreased Referred By: Caroline Gaona Electronically Signed By:TIMMY ENRIQUEZ
[2021-11-13 10:37] VITALS: BP 148/68; PULSE 64; RESP 18; TEMP 36.4; O2SAT 95; BMI 34.1
[2021-11-13 10:52] VITALS: BP 143/67; PULSE 60; RESP 17; TEMP 36.9; O2SAT 94
[2021-11-13 11:12] LABS: MANUAL DIFF FLAG NO
[2021-11-13 11:17] LABS: Basophils Percent Auto 0.7 % (0-2); Eosinophils Absolute Auto 0.1 X10*3/uL (0.0-0.4); Eosinophils Percent Auto 2.3 % (0-4); Hematocrit 41.5 % (42.0-52.0); Hemoglobin 13.6 g/dl (14.0-18.0); Imm Gran Abs Auto 0.01 X10*3/uL (0.00-0.03); Imm Gran Pct Auto 0.2 % (0.0-0.4); Lymphocytes Absolute Auto 0.7 X10*3/uL (1.2-4.9); Lymphocytes Percent Auto 12.2 % (20-40); Mean Corpuscular HGB Conc 32.8 g/dl (31.0-36.0); Mean Corpuscular Hemoglobin 31.3 pg (27.0-33.0); Mean Corpuscular Volume 95.4 fL (80.0-98.0); Mean Platelet Volume 9.3 fL (9.4-12.4); Monocytes Absolute Auto 0.3 X10*3/uL (0.1-1.2); Neutrophils Absolute Auto 4.5 x10*3/uL (2.0-8.3); Neutrophils Percent Auto 79.6 % (45-73); Platelet Count 208 X10*3/uL (160-400); Red Blood Count 4.35 X10*6/uL (4.60-5.80); Red Cell Distribution Width 13.8 % (11.0-16.0); White Blood Count 5.6 X10*3/uL (4.8-10.8)
[2021-11-13 11:32] LABS: INTERNATIONAL NORM RATIO 1.9 (0.9-1.1); Prothrombin Time 21.6 SEC (9.9-13.0)
[2021-11-13 11:35] LABS: COVID-19 Test Negative (Negative); Partial Thromboplastin Time 44.5 SEC (24.1-38.0)
[2021-11-13 11:38] LABS: Troponin-I High Sensitivity < 3.5 ng/L (<3.5-35.0)
[2021-11-13 11:41] LABS: Alanine Aminotransferase 9 U/L (0-40); Albumin Level 3.8 g/dL (3.5-5.0); Alkaline Phosphatase 49 U/L (39-117); Anion Gap 12 (12-20); Aspartate Amino Transferase 14 U/L (5-37); Bilirubin Total 0.7 mg/dL (0.0-1.0); Blood Urea Nitrogen 13 mg/dL (9-16); Calcium 9.4 mg/dL (8.4-10.2); Carbon Dioxide 29 mmol/L (22-29); Chloride 102 mmol/L (96-108); Creatinine Clr Calc Pharmacy 83.2; Estimated Glomerular Filt Rate > 60; Glucose Random 156 mg/dL (60-115); Potassium 4.3 mmol/L (3.3-5.1); Sodium 139 mmol/L (135-145); Total Protein 6.4 g/dL (6.5-8.0)
[2021-11-13] MEDS: iohexoL 350 MG/ML 100 ML INFUS..BTL 65 ML IV (12:37)
[2021-11-13 13:03] VITALS: BP 139/63; PULSE 60; RESP 18; O2SAT 95
--- NOTE | 2021-11-13 13:06 | PC.NURSE ---
no change in assessment. remains NSR on monitor. head remains heavy with neck stiffness. no palpitations.
== END 2021-11-13 14:46 | disposition home or self-care (01) ==
PROVIDERS: Physician Assistant Medical; Emergency Provider Emergency Medicine; PCP Pediatrics
DX: I48.0 Paroxysmal atrial fibrillation (principal); J44.9 Chronic obstructive pulmonary disease, unspecified; I10 Essential (primary) hypertension; Z79.01 Long term (current) use of anticoagulants
CPT/HCPCS: 36415; 70450; 71275; 80053; 83735; 84484; 85025; 85610; 85730; 87635; 93005; 99284; Q9967

== ENCOUNTER → 2021-11-25 12:12 | Outpatient (BNVA) | payer OTHER, SELFPAY | PROVIDERS: PCP Pediatrics; Referring Provider Pediatrics; Visit Provider Internal Medicine Cardiovascular Disease | DX: I48.0 Paroxysmal atrial fibrillation (principal); R07.9 Chest pain, unspecified | CPT/HCPCS: 99212 ==

== ENCOUNTER 2022-02-03 09:28 | Outpatient (REF) | payer OTHER, SELFPAY ==
--- NOTE | ~2022-02-03 | US_ITS ---
EXAMINATION: US EXTRACRANIAL CAROTID DUPLEX, BILATERAL CLINICAL INFORMATION: Cerebral infarction, stroke COMPARISON: CTA from 03/25/2019 TECHNIQUE: Real-time ultrasound and Doppler techniques (integrating B-mode 2-D vascular images, Doppler spectral analysis and color-flow Doppler imaging) were utilized to interrogate the extracranial carotid arteries, the vertebral arteries and proximal subclavian arteries bilaterally. The degree of stenosis is determined by criteria similar to NASCET. FINDINGS: Right Side: 1. There is mild atherosclerotic plaque seen in the bifurcation/proximal ICA region. 2. The common carotid artery PSV proximally is 121 cm/s and distally 77 cm/s. 3. The proximal internal carotid artery velocities are 97 cm/s systolic and 50 cm/s diastolic. 4. The proximal external carotid artery PSV is 99 cm/s. 5. The vertebral artery shows antegrade flow. 6. The subclavian artery waveforms are normal. Left Side: 1. There is mild atherosclerotic plaque seen in the bifurcation/proximal ICA region. 2. The common carotid artery PSV proximally is 148 cm/s and distally 80 cm/s. 3. The proximal internal carotid artery velocities are 91 cm/s systolic and 17 cm/s diastolic. 4. The proximal external carotid artery PSV is 73 cm/s. 5. The vertebral artery shows antegrade flow. 6. The subclavian artery waveforms are normal. US/US carotid duplex BI IMPRESSION: 1. RIGHT: Minimal, non-hemodynamically significant stenosis of the proximal right internal carotid artery corresponding to a 0-49% stenosis by velocity criteria. 2. LEFT: Minimal, non-hemodynamically significant stenosis of the proximal left internal carotid artery corresponding to a 0-49% stenosis by velocity criteria.
== END 2022-02-03 09:29 | disposition home or self-care (01) ==
LOC: HO.US 09:28
PROVIDERS: Visit Provider Internal Medicine Cardiovascular Disease
DX: Z86.73 Personal history of transient ischemic attack (TIA), and cerebral infarction without residual deficits (principal)
CPT/HCPCS: 93880

== ENCOUNTER 2022-03-09 08:51 | Emergency (ER) | payer OTHER, SELFPAY ==
--- NOTE | ~2022-03-09 | XR_ITS ---
EXAMINATION: XR CHEST CLINICAL INFORMATION: Syncope. COMPARISON: 01/17/2018 chest radiograph. TECHNIQUE: 2 views of the chest were obtained. FINDINGS: No significant abnormality is noted involving the heart, lungs, mediastinum, bony thorax or soft tissues. XR/XR chest 2V IMPRESSION: No acute cardiopulmonary process.
--- NOTE | 2022-03-09 09:04 | ECG_ITS ---
Test Reason : near syncope Blood Pressure : / mmHG Vent. Rate : 068 BPM Atrial Rate : 068 BPM P-R Int : 180 ms QRS Dur : 080 ms QT Int : 392 ms P-R-T Axes : 044 012 036 degrees QTc Int : 416 ms Normal sinus rhythm Normal ECG When compared with ECG of 13-NOV-2021 10:32, No significant change was found Referred By: Generic ED Physician Electronically Signed By:FRED COELHO
[2022-03-09 09:07] VITALS: BP 109/67; PULSE 72; RESP 19; TEMP 36.6; O2SAT 95; BMI 31.6
[2022-03-09 09:22] LABS: MANUAL DIFF FLAG NO
[2022-03-09 09:23] LABS: Basophils Percent Auto 0.6 % (0-2); Eosinophils Absolute Auto 0.1 X10*3/uL (0.0-0.4); Eosinophils Percent Auto 2.1 % (0-4); Hematocrit 41.8 % (42.0-52.0); Hemoglobin 14.1 g/dl (14.0-18.0); Imm Gran Abs Auto 0.03 X10*3/uL (0.00-0.03); Imm Gran Pct Auto 0.5 % (0.0-0.4); Lymphocytes Absolute Auto 0.9 X10*3/uL (1.2-4.9); Lymphocytes Percent Auto 13.5 % (20-40); Mean Corpuscular HGB Conc 33.7 g/dl (31.0-36.0); Mean Corpuscular Hemoglobin 32.3 pg (27.0-33.0); Mean Corpuscular Volume 95.7 fL (80.0-98.0); Mean Platelet Volume 9.6 fL (9.4-12.4); Monocytes Absolute Auto 0.4 X10*3/uL (0.1-1.2); Monocytes Percent Auto 5.5 % (2-11); Neutrophils Absolute Auto 5.1 x10*3/uL (2.0-8.3); Neutrophils Percent Auto 77.8 % (45-73); Platelet Count 172 X10*3/uL (160-400); Red Blood Count 4.37 X10*6/uL (4.60-5.80); Red Cell Distribution Width 13.7 % (11.0-16.0); White Blood Count 6.6 X10*3/uL (4.8-10.8)
[2022-03-09 09:38] LABS: Anion Gap 15 (12-20); Blood Urea Nitrogen 15 mg/dL (9-16); Calcium 9.1 mg/dL (8.4-10.2); Carbon Dioxide 28 mmol/L (22-29); Chloride 101 mmol/L (96-108); Creatinine Clr Calc Pharmacy 78.3; Estimated Glomerular Filt Rate > 60; Glucose Random 153 mg/dL (60-115); Potassium 4.3 mmol/L (3.3-5.1); Sodium 140 mmol/L (135-145)
[2022-03-09 09:47] LABS: B Type Natriuretic Peptide 76 pg/mL (<100); Troponin-I High Sensitivity < 3.5 ng/L (<3.5-35.0)
--- NOTE | 2022-03-09 10:47 | ED_ITS ---
HPI - General Adult General Chief complaint: General Medical Stated complaint: Chest soreness/R arm pain Time Seen by Provider: 03/09/22 10:41 Source: patient Mode of arrival: ambulatory Limitations: no limitations History of Present Illness HPI narrative: This is 81 years old patient with history of paroxysmal atrial fibrillation anticoagulated with Xarelto presented to the emergency department complaining of intermittent chest pain sharp in the left chest for about 2 months, which was complaining of lightheadedness and dizziness. Denies any shortness of breath fever nausea vomiting and diarrhea Onset (ago): month(s) (2) Location: chest Radiation: non-radiation Severity: mild Quality: sharp Pain Consistency: intermittent Relieving factors: none Exacerbating factors: none Associated symptoms: denies other symptoms Related Data Home Medications Medication Instructions Recorded Confirmed diclofenac sodium 1 % topical gel 1 ea topical QID 06/11/20 05/22/21 albuterol sulfate 90 mcg/actuation 2 puff inhalation Q4H PRN wheezing 12/12/20 11/25/21 aerosol inhaler ascorbic acid (vitamin C) 500 mg mg PO 05/22/21 11/25/21 capsule nitric oxide gas 100 PPM for ea inhalation 05/22/21 05/22/21 inhalation atorvastatin 20 mg tablet 20 mg PO DAILY 11/25/21 11/25/21 citalopram 20 mg tablet 20 mg PO BID 11/25/21 11/25/21 levetiracetam 500 mg tablet 500 mg PO BID 11/25/21 11/25/21 tamsulosin 0.4 mg capsule 0.4 mg PO BID 11/25/21 11/25/21 Previous Rx's Medication Instructions Recorded diltiazem HCl 180 mg 180 mg PO DAILY #90 caps 04/18/21 capsule,extended release 24 hr rivaroxaban 20 mg tablet (Xarelto) 20 mg PO QPM #90 tabs 02/10/22 Allergies Allergy/AdvReac Type Severity Reaction Status Date / Time penicillin V Allergy Severe Hives Verified 11/13/21 10:37 piroxicam [PIROXICAM] Allergy Intermediate HIVES/SOB Verified 11/13/21 10:37 rofecoxib [From VIOXX] Allergy Intermediate HIVES/SOB Verified 11/13/21 10:37 Penicillins [PENICILLINS] Allergy Unknown UNKNOWN Verified 11/13/21 10:37 phenacetin [PHENACETIN] Allergy Unknown UNK Verified 11/13/21 10:37 From VICODIN Allergy Intermediate HIVES/SOB Uncoded 04/04/20 16:43 Review of Systems Review of Systems: Yes all other systems are reviewed and are negative Eyes: Eyes: Reports no additional eye complaints ENT: Reports system reviewed and no additional complaints, except as documented Cardiovascular: Cardiovascular: Reports no additional cardiovascular complaints Gastrointestinal: Gastrointestinal: Reports no additional gastrointestinal complaints Psychiatric: Psychiatric: Reports no additional psychiatric complaints [facility] Past Medical History Medical History HTN (hypertension) Paroxysmal atrial fibrillation Seizure disorder Social History Social History Alcohol intake: current Alcohol intake frequency: does not drink Alcohol type: beer Patient Tobacco Use Status: Former Tobacco user Cigarette Packs Per Day: 1 Cigarettes Per Day: 20 Use of substances other than those prescribed or required for medical reasons: No Advance Directives: Yes Advance Directives Information Provided: No Advance Directives on File: No Physical Exam ED Vital Signs: Vital Signs - 24 hr 03/09/22 09:07 03/09/22 10:52 03/09/22 14:27 Temperature 98 F Pulse Rate 72 57 54 Respiratory Rate 19 18 16 Blood Pressure 109/67 128/57 L 134/65 Pulse Oximetry 95 96 96 Oxygen Delivery Method Room Air Room Air Room Air BMI result Body Mass Index 31.6 Const General: cooperative, comfortable, no acute distress, well developed and alert Nutritional Appearance: average body habitus Orientation/consciousness: patient oriented x3 Limitations: no limitations [facility] Head: Yes normal to inspection General nose exam: Normal external nose present Face and sinus: Yes normal facial exam Mouth: Normal oral and palatal mucosa present Teeth and gingiva: dentition normal Throat: Yes posterior oropharynx normal Neck Neck: Yes normal visual inspection and Yes full ROM Thyroid: Thyroid normal Resp Effort & Inspection: normal respiratory effort Auscultation: clear to auscultation bilaterally Cardio Jugular venous distension: no JVD Rate: regular rate Rhythm: regular rhythm GI Inspection: Yes normal to inspection Palpation (GI): Soft to palpation, nontender and no guarding Skin General skin exam: no rashes or lesions noted, elasticity normal and turgor normal Lesions: no lesions Rashes: no rashes Neuro General: patient oriented x3 Course Course Course Narrative: tropi X 2 negative pain atypical,already anticoagulated,unlikely PE will d/c home.I 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 Dr Blake Medical Decision Making Lab Data Result diagrams: 03/09/22 09:16 03/09/22 09:16 Labs: Lab Results 03/09/22 03/09/22 03/09/22 Range/Units 09:16 09:16 09:16 WBC 6.6 (4.8-10.8) X10*3/uL RBC 4.37 L (4.60-5.80) X10*6/uL Hgb 14.1 (14.0-18.0) g/dl Hct 41.8 L (42.0-52.0) % MCV 95.7 (80.0-98.0) fL MCH 32.3 (27.0-33.0) pg MCHC 33.7 (31.0-36.0) g/dl RDW 13.7 (11.0-16.0) % Plt Count 172 (160-400) X10*3/uL MPV 9.6 (9.4-12.4) fL Immature Gran % (Auto) 0.5 H (0.0-0.4) % Neut % (Auto) 77.8 H (45-73) % Lymph % (Auto) 13.5 L (20-40) % [place] % (Auto) 5.5 (2-11) % Eos % (Auto) 2.1 (0-4) % Baso % (Auto) 0.6 (0-2) % Lymph # (Auto) 0.9 L (1.2-4.9) X10*3/uL [place] # (Auto) 0.4 (0.1-1.2) X10*3/uL Eos # (Auto) 0.1 (0.0-0.4) X10*3/uL Baso # (Auto) 0.0 (0.0-0.2) X10*3/uL Abs Immat Gran (auto) 0.03 (0.00-0.03) X10*3/uL Absolute Neuts (auto) 5.1 (2.0-8.3) x10*3/uL Absolute Nucleated RBC 0.000 (0.0-0.012) X10*3/uL Nucleated RBC % (auto) 0.0 (0.0-0.2) /100WBC Sodium 140 (135-145) mmol/L Potassium 4.3 (3.3-5.1) mmol/L Chloride 101 (96-108) mmol/L Carbon Dioxide 28 (22-29) mmol/L Anion Gap 15 (12-20) BUN 15 (9-16) mg/dL Creatinine 0.85 (0.5-1.4) mg/dL Estim Creat Clear Calc 78.3 Estimated GFR > 60 Random Glucose 153 H (60-115) mg/dL Calcium 9.1 (8.4-10.2) mg/dL Troponin I High Sens < 3.5 (<3.5-35.0) ng/L B-Natriuretic Peptide 76 (<100) pg/mL 03/09/22 Range/Units 11:40 WBC (4.8-10.8) X10*3/uL RBC (4.60-5.80) X10*6/uL Hgb (14.0-18.0) g/dl Hct (42.0-52.0) % MCV (80.0-98.0) fL MCH (27.0-33.0) pg MCHC (31.0-36.0) g/dl RDW (11.0-16.0) % Plt Count (160-400) X10*3/uL MPV (9.4-12.4) fL Immature Gran % (Auto) (0.0-0.4) % Neut % (Auto) (45-73) % Lymph % (Auto) (20-40) % [place] % (Auto) (2-11) % Eos % (Auto) (0-4) % Baso % (Auto) (0-2) % Lymph # (Auto) (1.2-4.9) X10*3/uL [place] # (Auto) (0.1-1.2) X10*3/uL Eos # (Auto) (0.0-0.4) X10*3/uL Baso # (Auto) (0.0-0.2) X10*3/uL Abs Immat Gran (auto) (0.00-0.03) X10*3/uL Absolute Neuts (auto) (2.0-8.3) x10*3/uL Absolute Nucleated RBC (0.0-0.012) X10*3/uL Nucleated RBC % (auto) (0.0-0.2) /100WBC Sodium (135-145) mmol/L Potassium (3.3-5.1) mmol/L Chloride (96-108) mmol/L Carbon Dioxide (22-29) mmol/L Anion Gap (12-20) BUN (9-16) mg/dL Creatinine (0.5-1.4) mg/dL Estim Creat Clear Calc Estimated GFR Random Glucose (60-115) mg/dL Calcium (8.4-10.2) mg/dL Troponin I High Sens < 3.5 (<3.5-35.0) ng/L B-Natriuretic Peptide (<100) pg/mL ECG Data Attestation: I personally reviewed and interpreted this ECG as follows: Prior ECG tracings: available for review Pacemaker model: EKG shows NSR rate [address]-T changes Discharge Plan Discharge Clinical Impression: Chest pain Patient Disposition: Home, Self-Care Instructions: Chest Pain (DC) Additional Instructions: Please follow-up with due to Sheath call and make an appointment,return if worse Prescriptions: No Action diltiazem HCl 180 mg capsule,extended release 24hr 180 mg PO DAILY Qty: 90 3RF Xarelto 20 mg tablet 20 mg PO QPM Qty: 90 0RF diclofenac sodium 1 % gel 1 ea topical QID citalopram 20 mg tablet 20 mg PO BID albuterol sulfate 90 mcg/actuation HFA aerosol inhaler 2 puff inhalation Q4H PRN (Reason: wheezing) ascorbic acid (vitamin C) 500 mg capsule PO nitric oxide gas 100 PPM gas inhalation tamsulosin 0.4 mg capsule 0.4 mg PO BID atorvastatin 20 mg tablet 20 mg PO DAILY levetiracetam 500 mg tablet 500 mg PO BID Referrals: Lazaro Blake MD [Physician] - 2 days Interventions: ED Discharge Assessment Last Done: 03/09/22 15:05 Discharge Date/Time: 03/09/22 15:06
[2022-03-09 10:52] VITALS: BP 128/57; PULSE 57; RESP 18; O2SAT 96
--- NOTE | 2022-03-09 10:53 | PC.NURSE ---
Pt reports episodes of dizziness and near syncope x 1 month. States episodes last approx 20 sec then resolve. SOB with exertion. NSR on monitor, erika in mid 50s. SKin pwd. Speaking full sentences
[2022-03-09 12:09] LABS: Troponin-I High Sensitivity < 3.5 ng/L (<3.5-35.0)
[2022-03-09 14:27] VITALS: BP 134/65; PULSE 54; RESP 16; O2SAT 96
== END 2022-03-09 15:06 | disposition home or self-care (01) ==
PROVIDERS: Emergency Provider Emergency Medicine; PCP Family Medicine
DX: R07.9 Chest pain, unspecified (principal); I10 Essential (primary) hypertension; I48.0 Paroxysmal atrial fibrillation; Z79.01 Long term (current) use of anticoagulants; Z79.02 Long term (current) use of antithrombotics/antiplatelets; Z79.899 Other long term (current) drug therapy; Z87.891 Personal history of nicotine dependence
CPT/HCPCS: 36415; 71046; 80048; 83880; 84484; 85025; 93005; 99283; 99284

== ENCOUNTER → 2022-03-12 10:33 | Outpatient (BNVA) | payer OTHER, SELFPAY | PROVIDERS: PCP Family Medicine; Visit Provider Internal Medicine Cardiovascular Disease | DX: R06.02 Shortness of breath (principal); R42 Dizziness and giddiness; I48.0 Paroxysmal atrial fibrillation; I10 Essential (primary) hypertension; Z79.01 Long term (current) use of anticoagulants | CPT/HCPCS: 99212 ==

== ENCOUNTER → 2022-03-19 10:08 | Outpatient (REF) | payer OTHER, SELFPAY ==
--- NOTE | 2022-03-19 10:11 | HM_ITS ---
* Total monitoring time 2 days and 20 hours. * Underlying rhythm is sinus. Average rate 66/Min. Range 56 to 91/Min. * No atrial fibrillation or flutter or AV blocks or pauses. * Rare supraventricular ectopy with minimal burden. * Rare ventricular ectopy with minimal burden. * Patient had reported several events including dizziness, near-syncope, shortness of breath, chest discomfort, palpitations, rapid heartbeat. Noted to correlate with supraventricular/ventricular ectopy as well as sinus rhythm. However, ectopy burden is minimal to account for the symptoms. MTDD
== END ==
LOC: HO.CARD 10:08
PROVIDERS: PCP Family Medicine; Visit Provider Internal Medicine Cardiovascular Disease
DX: I48.0 Paroxysmal atrial fibrillation (principal); R06.02 Shortness of breath
CPT/HCPCS: 93242

== ENCOUNTER 2022-05-12 08:47 | Emergency (ER) | payer OTHER, SELFPAY ==
--- NOTE | ~2022-05-12 | XR_ITS ---
EXAMINATION: XR CHEST CLINICAL INFORMATION: Chest pain. COMPARISON: March 09, 2022. TECHNIQUE: 2 views of the chest were obtained. FINDINGS: No significant abnormality is noted involving the heart, lungs, mediastinum, or soft tissues. Mild degenerative changes of the spine. XR/XR chest 2V IMPRESSION: Unremarkable examination.
--- NOTE | 2022-05-12 08:52 | ECG_ITS ---
Test Reason : chest pain Blood Pressure : / mmHG Vent. Rate : 062 BPM Atrial Rate : 062 BPM P-R Int : 200 ms QRS Dur : 080 ms QT Int : 404 ms P-R-T Axes : 025 006 028 degrees QTc Int : 410 ms Normal sinus rhythm Normal ECG When compared with ECG of 09-MAR-2022 09:08, No significant change was found Referred By: Generic ED Physician Electronically Signed By:CHESTER REYES MD
[2022-05-12 08:53] VITALS: BP 115/64; PULSE 64; RESP 20; TEMP 36.9; O2SAT 95; BMI 33.1
[2022-05-12 09:20] LABS: MANUAL DIFF FLAG NO
[2022-05-12 09:22] LABS: Basophils Percent Auto 0.7 % (0-2); Eosinophils Absolute Auto 0.2 X10*3/uL (0.0-0.4); Eosinophils Percent Auto 3.7 % (0-4); Hematocrit 40.9 % (42.0-52.0); Hemoglobin 13.6 g/dl (14.0-18.0); Imm Gran Abs Auto 0.02 X10*3/uL (0.00-0.03); Imm Gran Pct Auto 0.3 % (0.0-0.4); Lymphocytes Absolute Auto 0.8 X10*3/uL (1.2-4.9); Lymphocytes Percent Auto 13.1 % (20-40); Mean Corpuscular HGB Conc 33.3 g/dl (31.0-36.0); Mean Corpuscular Hemoglobin 31.9 pg (27.0-33.0); Mean Corpuscular Volume 95.8 fL (80.0-98.0); Mean Platelet Volume 9.3 fL (9.4-12.4); Monocytes Absolute Auto 0.4 X10*3/uL (0.1-1.2); Monocytes Percent Auto 6.6 % (2-11); Neutrophils Absolute Auto 4.5 x10*3/uL (2.0-8.3); Neutrophils Percent Auto 75.6 % (45-73); Platelet Count 208 X10*3/uL (160-400); Red Blood Count 4.27 X10*6/uL (4.60-5.80); Red Cell Distribution Width 13.5 % (11.0-16.0); White Blood Count 5.9 X10*3/uL (4.8-10.8)
[2022-05-12 09:38] LABS: Alanine Aminotransferase 11 U/L (0-40); Albumin Level 4.1 g/dL (3.5-5.0); Alkaline Phosphatase 46 U/L (39-117); Anion Gap 15 (12-20); Aspartate Amino Transferase 17 U/L (5-37); Bilirubin Direct 0.3 mg/dL (0.0-0.5); Bilirubin Total 0.7 mg/dL (0.0-1.0); Blood Urea Nitrogen 15 mg/dL (9-16); Calcium 8.7 mg/dL (8.4-10.2); Carbon Dioxide 25 mmol/L (22-29); Chloride 103 mmol/L (96-108); Creatinine Clr Calc Pharmacy 89.2; Estimated Glomerular Filt Rate > 60; Glucose Random 108 mg/dL (60-115); Lipase < 4 U/L (8-78); Potassium 4.4 mmol/L (3.3-5.1); Sodium 139 mmol/L (135-145); Total Protein 6.7 g/dL (6.5-8.0)
[2022-05-12 09:41] LABS: Troponin-I High Sensitivity < 3.5 ng/L (<3.5-35.0)
[2022-05-12 12:57] VITALS: BP 135/62; PULSE 57; RESP 20; TEMP 36.1; O2SAT 95
[2022-05-12 15:42] VITALS: BP 138/62; PULSE 61; RESP 18; TEMP 36.4; O2SAT 94
[2022-05-12 17:12] VITALS: BP 133/82; PULSE 61; RESP 12; TEMP 36.9; O2SAT 96
--- NOTE | 2022-05-12 17:15 | ED_ITS ---
HPI - Chest Pain General Chief Complaint: Chest Pain Stated Complaint: Chest Pain x 1 Day Dizziness Time Seen by Provider: 05/12/22 17:11 Source: patient, family and old records reviewed Mode of arrival: ambulatory Limitations: no limitations History of Present Illness HPI narrative: 81 yo male with hx of HTN, diffuse CAD with recent coronary CTA 03/2022 - declines CABG at this time if needed, carotid artery stenosis - declines surgery for that as well, PAF on xarelto, here with c/o 5-6 months of wake up L sided under the breast chest pain. He notes they cannot figure out why this his happening. He denies trauma or known injury/no prior procedures in this area. He notes today it was painful again - radiated up into the arm and woke him from sleep. He notes this happens almost every morning while he is sleeping but today was worse. MD complaint: chest pain Pertinent past history: coronary artery disease Onset (ago): month(s) (6) Timing of current episode: episodic Prior episodes: Yes Onset: during rest Pain location: left chest Pain radiation: left arm Severity: moderate Quality: other (well localized, tender, pain) Relieving factors: nothing Exacerbating factors: nothing Context: other (chronic issue) Associated symptoms: dyspnea Treatment prior to arrival: none Related Data Home Medications Medication Instructions Recorded Confirmed diclofenac sodium 1 % topical gel 1 ea topical QID 06/11/20 03/12/22 albuterol sulfate 90 mcg/actuation 2 puff inhalation Q4H PRN wheezing 12/12/20 03/12/22 aerosol inhaler ascorbic acid (vitamin C) 500 mg mg PO 05/22/21 03/12/22 capsule nitric oxide gas 100 PPM for ea inhalation 05/22/21 03/12/22 inhalation atorvastatin 20 mg tablet 20 mg PO DAILY 11/25/21 03/12/22 citalopram 20 mg tablet 20 mg PO BID 11/25/21 03/12/22 tamsulosin 0.4 mg capsule 0.4 mg PO BID 11/25/21 03/12/22 carboxymethylcellulose sodium 0.5 drp ophthalmic (eye) 03/12/22 03/12/22 % eye drops levetiracetam 1,000 mg tablet 1,000 mg PO BID 03/12/22 03/12/22 olopatadine 0.1 % eye drops 1 drp ophthalmic (eye) ONCE 03/12/22 03/12/22 Previous Rx's Medication Instructions Recorded diltiazem HCl 180 mg 180 mg PO DAILY #90 caps 04/20/22 capsule,extended release 24 hr rivaroxaban 20 mg tablet (Xarelto) 20 mg PO QPM #90 tabs 05/11/22 lidocaine 5 % topical cream 1 appl topical BID PRN pain #15 05/12/22 grams Allergies Allergy/AdvReac Type Severity Reaction Status Date / Time penicillin V Allergy Severe Hives Verified 03/12/22 10:36 piroxicam [PIROXICAM] Allergy Intermediate HIVES/SOB Verified 03/12/22 10:36 rofecoxib [From VIOXX] Allergy Intermediate HIVES/SOB Verified 03/12/22 10:36 Penicillins [PENICILLINS] Allergy Unknown UNKNOWN Verified 03/12/22 10:36 phenacetin [PHENACETIN] Allergy Unknown UNK Verified 03/12/22 10:36 From VICODIN Allergy Intermediate HIVES/SOB Uncoded 03/12/22 10:36 Review of Systems Review of Systems: Constitutional : No Weight loss, No Fever, No Chills ENT/Mouth : No sore throat, No Rhinorrhea Eyes: No Eye Pain, No Swelling Cardiovascular : pos Chest Pain, pos SOB, no Dyspnea on Exertion, No Orthopnea, No Edema, No Palpitations Respiratory : No Cough, No Sputum Gastrointestinal : no Nausea, No Vomiting, No Diarrhea, No abdominal Pain, No Hematochezia, No Melena Genitourinary : No Dysuria, No Urinary Frequency Musculoskeletal : No joint pain, No Myalgias, No Joint Swelling Skin : No Skin Lesions, No rash Neuro : No Weakness, No Numbness, No Dizziness, No Headache Psych : No Anxiety/Panic, No Depression Heme/Lymph: No Bruising, No Lymphadenopathy Endocrine : No Polyuria, No Polydipsia All other systems reviewed and are negative [facility] Past Medical History Attestation statement: The following information was validated with the patient. Medical History (Updated 05/12/22 @ 17:59 by Ana Gurrola DO) CAD (coronary artery disease) HTN (hypertension) Paroxysmal atrial fibrillation Seizure disorder Surgical History History of ear surgery History of left knee surgery History of right hip replacement S/P skin biopsy Social History Social History Alcohol intake: current Alcohol intake frequency: holidays/special occasions only Alcohol type: beer Patient Tobacco Use Status: Former Tobacco user Quit Date: 1999 Smoked: 30 +/- Advance Directives: No Advance Directives Information Provided: No Physical Exam Vital Signs: Vital Signs: Last Vital Signs Temp 98.5 F 05/12/22 17:12 Pulse 61 05/12/22 17:12 Resp 12 05/12/22 17:12 BP 133/82 05/12/22 17:12 Pulse Ox 96 05/12/22 17:12 O2 Del Method 05/12/22 17:12 BMI result Body Mass Index 33.1 Appearance: Alert. Oriented X3. No acute distress. Eyes: Pupils equal, round and reactive to light. ENT: Pharynx normal. Neck: Normal inspection. Neck supple. neg spurling's CVS: Normal heart rate and rhythm. Pulses normal. Chest: ttp along L anterior chest under L rib no mass - reproduces pain, no rash seen Respiratory: No respiratory distress. Breath sounds normal. Abdomen: Soft and nontender. Skin: Skin warm and dry. Normal skin color. Normal skin turgor. Extremities: No lower extremity edema. No calf ttp good distal pulses, L arm good pulses Neuro: Oriented X 3. No motor deficit. No sensory deficit. MDM - Chest Pain MDM Narrative Medical decision making narrative: 81 yo male with hx of HTN, diffuse CAD with recent coronary CTA 03/2022 - declines CABG at this time if needed, carotid artery stenosis - declines surgery for that as well, PAF on xarelto (doubt PE given compliance) at this time c/o somewhat atypical chest pain for 6 months, not exertional, wakes him from sleep, reproduceable in nature and well localized. His EKG and first troponin are negative. He does not want to undergo any procedure for his CAD or stenosis. Will repeat troponin and if negative DC to cardiology follow up - daughter at bedside and aware. Lab Data Result diagrams: 05/12/22 09:08 05/12/22 09:08 Labs: Lab Results 05/12/22 05/12/22 05/12/22 Range/Units 09:08 09:08 09:08 WBC 5.9 (4.8-10.8) X10*3/uL RBC 4.27 L (4.60-5.80) X10*6/uL Hgb 13.6 L (14.0-18.0) g/dl Hct 40.9 L (42.0-52.0) % MCV 95.8 (80.0-98.0) fL MCH 31.9 (27.0-33.0) pg MCHC 33.3 (31.0-36.0) g/dl RDW 13.5 (11.0-16.0) % Plt Count 208 (160-400) X10*3/uL MPV 9.3 L (9.4-12.4) fL Immature Gran % (Auto) 0.3 (0.0-0.4) % Neut % (Auto) 75.6 H (45-73) % Lymph % (Auto) 13.1 L (20-40) % [place] % (Auto) 6.6 (2-11) % Eos % (Auto) 3.7 (0-4) % Baso % (Auto) 0.7 (0-2) % Lymph # (Auto) 0.8 L (1.2-4.9) X10*3/uL [place] # (Auto) 0.4 (0.1-1.2) X10*3/uL Eos # (Auto) 0.2 (0.0-0.4) X10*3/uL Baso # (Auto) 0.0 (0.0-0.2) X10*3/uL Abs Immat Gran (auto) 0.02 (0.00-0.03) X10*3/uL Absolute Neuts (auto) 4.5 (2.0-8.3) x10*3/uL Absolute Nucleated RBC 0.000 (0.0-0.012) X10*3/uL Nucleated RBC % (auto) 0.0 (0.0-0.2) /100WBC Sodium 139 (135-145) mmol/L Potassium 4.4 (3.3-5.1) mmol/L Chloride 103 (96-108) mmol/L Carbon Dioxide 25 (22-29) mmol/L Anion Gap 15 (12-20) BUN 15 (9-16) mg/dL Creatinine 0.74 (0.5-1.4) mg/dL Estim Creat Clear Calc 89.2 Estimated GFR > 60 Random Glucose 108 (60-115) mg/dL Calcium 8.7 (8.4-10.2) mg/dL Total Bilirubin 0.7 (0.0-1.0) mg/dL Direct Bilirubin 0.3 (0.0-0.5) mg/dL AST 17 (5-37) U/L ALT 11 (0-40) U/L Alkaline Phosphatase 46 (39-117) U/L Troponin I High Sens < 3.5 (<3.5-35.0) ng/L Total Protein 6.7 (6.5-8.0) g/dL Albumin 4.1 (3.5-5.0) g/dL Lipase < 4 L (8-78) U/L ECG Data ECG #1: Attestation: I personally reviewed and interpreted this ECG as follows: ECG interpretation date: 05/12/22 ECG interpretation time: 18:01 Interpretation: Rate: 62 Rhythm: NSR [place]: normal Normal P waves. Normal RUPESH. Normal QRS complex. ST T wave : normal no ROSELIA qTC: normal prior studies: no acute ischemia The study has been interpreted contemporaneously by me. . Discharge Plan Discharge Clinical Impression: Chest pain Qualifiers: Chest pain type: intercostal pain Qualified Code(s): R07.82 - Intercostal pain Patient Disposition: Home, Self-Care Instructions: Chest Pain (ED) Additional Instructions: return to ED for any worsening symptoms or concerns please follow up with your post manager as planned given your chest pain Prescriptions: New lidocaine 5 % cream 1 appl topical BID PRN (Reason: pain) Qty: 15 0RF No Action diltiazem HCl 180 mg capsule,extended release 24hr 180 mg PO DAILY Qty: 90 3RF Xarelto 20 mg tablet 20 mg PO QPM Qty: 90 3RF diclofenac sodium 1 % gel 1 ea topical QID citalopram 20 mg tablet 20 mg PO BID albuterol sulfate 90 mcg/actuation HFA aerosol inhaler 2 puff inhalation Q4H PRN (Reason: wheezing) ascorbic acid (vitamin C) 500 mg capsule PO nitric oxide gas 100 PPM gas inhalation tamsulosin 0.4 mg capsule 0.4 mg PO BID atorvastatin 20 mg tablet 20 mg PO DAILY olopatadine 0.1 % drops 1 drp ophthalmic (eye) ONCE carboxymethylcellulose sodium 0.5 % drops ophthalmic (eye) levetiracetam 1,000 mg tablet 1,000 mg PO BID
[2022-05-12] MEDS: Acetaminophen 325 MG TABLET 650 MG PO (17:50)
[2022-05-12 18:07] LABS: Troponin-I High Sensitivity < 3.5 ng/L (<3.5-35.0)
--- NOTE | 2022-05-12 18:28 | PC.NURSE ---
Discharge instructions provided. Pt and daughter verbalize understanding.
== END 2022-05-12 18:29 | disposition home or self-care (01) ==
PROVIDERS: Emergency Provider Emergency Medicine; PCP Family Medicine
DX: R07.89 Other chest pain (principal); R06.02 Shortness of breath; Z79.899 Other long term (current) drug therapy; Z87.891 Personal history of nicotine dependence
CPT/HCPCS: 36415; 71046; 80048; 80076; 83690; 84484; 85025; 93005; 99283; 99285

== ENCOUNTER → 2022-05-26 09:26 | Outpatient (BNVA) | payer OTHER, SELFPAY | PROVIDERS: PCP Family Medicine; Referring Provider Family Medicine; Visit Provider Internal Medicine Cardiovascular Disease | DX: I25.10 Atherosclerotic heart disease of native coronary artery without angina pectoris (principal); I48.0 Paroxysmal atrial fibrillation | CPT/HCPCS: 99212 ==

== ENCOUNTER 2022-07-16 11:07 | Outpatient (REF) | payer OTHER, SELFPAY ==
--- NOTE | ~2022-07-16 | MR_ITS ---
EXAMINATION: MR CERVICAL SPINE WITHOUT CONTRAST CLINICAL INFORMATION: Paresthesias and white matter disease. COMPARISON: CTA of the head and neck on 02/04/2019. TECHNIQUE: MRI of the cervical spine was obtained using routine sequences without contrast. FINDINGS: VERTEBRAL BODIES AND PARASPINAL SOFT TISSUES: There is overall straightening of the normal cervical lordosis. There is a mild anterolisthesis of C7 on T1. There is multilevel narrowing of intervertebral disc height with loss of signal. There is mild chronic loss of vertebral body height of C5 superiorly, demonstrated on prior imaging. There are no acute fractures. Overall, marrow signal is homogenous. The regional soft tissues are unremarkable. CERVICOMEDULLARY JUNCTION AND VISUALIZED POSTERIOR FOSSA: The craniocervical and posterior fossa structures are normal. Accounting for artifact, spinal cord signal appears normal. SPINAL LEVELS: C2-C3: There is a central and left-sided soft disc protrusion which effaces CSF ventral to the spinal cord with no spinal cord compression or central stenosis. There are uncovertebral osteophytes and there is mild right foraminal narrowing. C3-C4: There is a prominent soft disc protrusion posteriorly in the midline which effaces CSF ventral to the cord and may impinge on the cord. There is some effacement of CSF around the cord and there is mild central stenosis. There are uncovertebral osteophytes with moderate right and mild left foraminal narrowing. C4-C5: There is a broad-based posterior disc osteophyte complex which effaces CSF around the cord. There is mild to moderate central stenosis. There are prominent uncovertebral osteophytes and there is moderate to severe bilateral foraminal narrowing. C5-C6: There is a broad-based posterior disc osteophyte complex which effaces CSF around the cord. There is mild central stenosis. There are uncovertebral osteophytes and there is moderate to severe bilateral foraminal narrowing. C6-C7: There is a shallow posterior disc protrusion without mass effect on the thecal sac and there is no cord compression or central stenosis. There are uncovertebral osteophytes and there is moderate left and mild right foraminal narrowing. C7-T1: There is mild bilateral facet arthropathy. Posterior disc contour is normal. There is no spinal cord compression or central stenosis. The neural foramina are patent bilaterally. T1-T2 and T2-T3: On the sagittal images there are posterior disc protrusions at both these levels without central stenosis or cord compression. There is mild right foraminal narrowing at T1-T2. MR/MR cervical spine wo con IMPRESSION: 1. At C3-C4 there is a prominent soft disc protrusion posteriorly in the midline which may impinge on the cord and there is mild central stenosis. There is moderate right and mild left foraminal narrowing. 2. At C4-C5 there is a broad-based posterior disc osteophyte complex with mild to moderate central stenosis. There is moderate to severe bilateral foraminal narrowing. 3. At C5-C6 there is a broad-based posterior disc osteophyte complex with mild central stenosis. There is moderate to severe bilateral foraminal narrowing. 4. At C6-C7 there is a shallow posterior disc protrusion without cord compression or central stenosis. There is moderate left and mild right foraminal narrowing. 5. At T1-T2 and T2-T3 there are posterior disc protrusions with right foraminal narrowing at T1-T2.
== END 2022-07-16 11:08 | disposition home or self-care (01) ==
LOC: HO.MRI 11:07
PROVIDERS: Visit Provider Internal Medicine
DX: R90.82 White matter disease, unspecified (principal); R20.2 Paresthesia of skin
CPT/HCPCS: 72141

== ENCOUNTER 2022-10-07 12:49 | Emergency (ER) | payer OTHER, SELFPAY ==
--- NOTE | ~2022-10-07 | XR_ITS ---
EXAMINATION: XR CHEST CLINICAL INFORMATION: Chest pain COMPARISON: Chest 05/12/2022 TECHNIQUE: 2 views of the chest were obtained. FINDINGS: The lungs are well-expanded and clear of acute pneumonic process. The heart size and pulmonary vascularity is normal. No gross bony abnormality seen. XR/XR chest 2V IMPRESSION: Unremarkable chest examination.
--- NOTE | 2022-10-07 12:52 | ECG_ITS ---
Test Reason : CHEST PAIN Blood Pressure : / mmHG Vent. Rate : 063 BPM Atrial Rate : 063 BPM P-R Int : 206 ms QRS Dur : 078 ms QT Int : 410 ms P-R-T Axes : 000 014 015 degrees QTc Int : 419 ms Normal sinus rhythm Normal ECG When compared with ECG of 12-MAY-2022 09:00, No significant change was found Referred By: Generic ED Physician Electronically Signed By:IRENE THOMPSON MD
[2022-10-07 12:56] VITALS: BP 119/62; PULSE 60; RESP 18; TEMP 37.1; O2SAT 94; BMI 30.1
--- NOTE | 2022-10-07 13:07 | ED_ITS ---
HPI - Chest Pain General Chief Complaint: Chest Pain Stated Complaint: chest pain Source: patient, RN notes reviewed and old records reviewed Mode of arrival: ambulatory Limitations: no limitations History of Present Illness HPI narrative: 81-year-old male past medical history significant for coronary artery disease, AFib Eliquis, hypertension presents for evaluation of chest pain. Patient reports that he had chest pain that lasted for about 20 minutes resolved prior to arrival. His symptoms started about an hour prior to arrival His symptoms woke him from sleep and was mostly in his left chest. The pain was at worst 5/10 The pain did not radiate. Did not have any palpitations or shortness of breath No other complaints or concerns this time Related Data Home Medications Medication Instructions Recorded Confirmed diclofenac sodium 1 % topical gel 1 ea topical QID 06/11/20 05/26/22 albuterol sulfate 90 mcg/actuation 2 puff inhalation Q4H PRN wheezing 12/12/20 05/26/22 aerosol inhaler ascorbic acid (vitamin C) 500 mg mg PO 05/22/21 05/26/22 capsule nitric oxide gas 100 PPM for ea inhalation 05/22/21 05/26/22 inhalation atorvastatin 20 mg tablet 20 mg PO DAILY 11/25/21 05/26/22 citalopram 20 mg tablet 20 mg PO BID 11/25/21 05/26/22 tamsulosin 0.4 mg capsule 0.4 mg PO BID 11/25/21 05/26/22 carboxymethylcellulose sodium 0.5 drp ophthalmic (eye) 03/12/22 05/26/22 % eye drops levetiracetam 1,000 mg tablet 1,000 mg PO BID 03/12/22 05/26/22 olopatadine 0.1 % eye drops 1 drp ophthalmic (eye) ONCE 03/12/22 05/26/22 Previous Rx's Medication Instructions Recorded diltiazem HCl 180 mg 180 mg PO DAILY #90 caps 04/20/22 capsule,extended release 24 hr rivaroxaban 20 mg tablet (Xarelto) 20 mg PO QPM #90 tabs 05/11/22 lidocaine 5 % topical cream 1 appl topical BID PRN pain #15 05/12/22 grams Allergies Allergy/AdvReac Type Severity Reaction Status Date / Time penicillin V Allergy Severe Hives Verified 03/12/22 10:36 piroxicam [PIROXICAM] Allergy Intermediate HIVES/SOB Verified 03/12/22 10:36 rofecoxib [From VIOXX] Allergy Intermediate HIVES/SOB Verified 03/12/22 10:36 Penicillins [PENICILLINS] Allergy Unknown UNKNOWN Verified 03/12/22 10:36 phenacetin [PHENACETIN] Allergy Unknown UNK Verified 03/12/22 10:36 From VICODIN Allergy Intermediate HIVES/SOB Uncoded 03/12/22 10:36 Review of Systems Constitutional: Constitutional: Reports as per HPI, Denies chills, Denies fatigue, Denies fever(s) and Denies headache(s) ENT: Denies headache(s) Cardiovascular: Cardiovascular: Reports chest pain and Denies dyspnea Respiratory: Respiratory: Denies cough and Denies dyspnea Gastrointestinal: Gastrointestinal: Denies abdominal pain, Denies constipation and Denies vomiting Genitourinary: Genitourinary: Denies difficulty urinating and Denies dysuria Neurologic: Denies headache(s) and Denies focal weakness Endocrine: Endocrine: Denies fatigue PMFSH Past Medical History Medical History CAD (coronary artery disease) HTN (hypertension) Paroxysmal atrial fibrillation Seizure disorder Surgical History History of ear surgery History of left knee surgery History of right hip replacement S/P skin biopsy Social History Social History Alcohol intake: current Alcohol intake frequency: holidays/special occasions only Alcohol type: beer Patient Tobacco Use Status: Former Tobacco user Quit Date: 1999 Smoked: 30 +/- Advance Directives: No Advance Directives Information Provided: Yes Physical Exam Vital Signs: Vital Signs: Last Vital Signs Temp 97.7 F 10/07/22 16:24 Pulse 60 10/07/22 16:24 Resp 18 10/07/22 16:24 BP 141/59 H 10/07/22 16:24 Pulse Ox 95 10/07/22 16:24 O2 Del Method 10/07/22 16:24 BMI result Body Mass Index 30.1 Const: General: healthy appearing, comfortable, no acute distress, alert and awake Nutritional Appearance: well nourished Orientation/consciousness: patient oriented x3 HEENT: Head: Yes normocephalic and Yes atraumatic Throat: Yes posterior o ropharynx normal Eyes: Eyelids: Yes eyelids normal Conjunctivae: conjunctivae normal Sclerae: sclerae normal Corneas: corneas normal Pupils: Equal, round and reactive pupils present EOM: EOMs intact bilaterally Neck: Neck: Yes full ROM Resp: Effort & Inspection: normal respiratory effort, able to speak in complete sentences, no audible wheezes and not labored Auscultation: clear to auscultation bilaterally Cardio: Rate: regular rate Rhythm: regular rhythm GI: Inspection: No distended Palpation (GI): Soft to palpation, not firm, nontender, no guarding and not rigid Auscultation: normoactive bowel sounds Skin: General skin exam: no rashes or lesions noted and elasticity normal Neuro: General: patient oriented x3 Cranial nerves: Yes CN's II-XII intact bilaterally, Yes Equal, round and reactive pupils present and Yes Bilaterally intact EOM present Cognition (Neuro): normal cognition Course Course Course Narrative: 81-year-old male past medical history significant for coronary artery disease, AFib, hypertension presenting for evaluation of chest pain. Patient reports left-sided chest pain that will, from sleep about an hour prior to arrival. He reports that the pain lasted about 20 minutes and is currently chest pain-free. Plan for EKG, labs including troponin and chest x-ray. Patient will be placed back in the waiting room until he can be appropriately bedded. He was advised to alert staff if his chest pain returns Medical Decision Making Medical Decision Making MDM Narrative: Patient had 20 minute of chest pain that resolved prior to arrival. He has been the ER for over 6 hours without any further recurrence of his chest pain. EKG is nonischemic, chest x-ray is clear, he has had troponin x2 that are negative. The patient's anticoagulant Eliquis has not missed any doses, this makes PE less likely. The patient is stable for discharge at this time. 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 No significant lab abnormalities 10/07/22 13:03 10/07/22 13:03 Labs: Lab Results 03/22/23 03/22/23 03/22/23 Range/Units 13:03 13:03 13:03 WBC 5.4 (4.8-10.8) X10*3/uL RBC 4.34 L (4.60-5.80) X10*6/uL Hgb 13.9 L (14.0-18.0) g/dl Hct 40.9 L (42.0-52.0) % MCV 94.2 (80.0-98.0) fL MCH 32.0 (27.0-33.0) pg MCHC 34.0 (31.0-36.0) g/dl RDW 13.7 (11.0-16.0) % Plt Count 189 (160-400) X10*3/uL MPV 9.6 (9.4-12.4) fL Immature Gran % (Auto) 0.2 (0.0-0.4) % Neut % (Auto) 68.1 (45-73) % Lymph % (Auto) 18.9 L (20-40) % Twiggs % (Auto) 9.2 (2-11) % Eos % (Auto) 3.0 (0-4) % Baso % (Auto) 0.6 (0-2) % Lymph # (Auto) 1.0 L (1.2-4.9) X10*3/uL Twiggs # (Auto) 0.5 (0.1-1.2) X10*3/uL Eos # (Auto) 0.2 (0.0-0.4) X10*3/uL Baso # (Auto) 0.0 (0.0-0.2) X10*3/uL Abs Immat Gran (auto) 0.01 (0.00-0.03) X10*3/uL Absolute Neuts (auto) 3.7 (2.0-8.3) x10*3/uL Absolute Nucleated RBC 0.000 (0.0-0.012) X10*3/uL Nucleated RBC % (auto) 0.0 (0.0-0.2) /100WBC PT (10.0-13.1) SEC INR (0.9-1.1) APTT (26.0-36.4) SEC Sodium 140 (135-145) mmol/L Potassium 4.2 (3.3-5.1) mmol/L Chloride 107 (96-108) mmol/L Carbon Dioxide 25 (22-29) mmol/L Anion Gap 12 (12-20) BUN 14 (9-16) mg/dL Creatinine 0.73 (0.5-1.4) mg/dL Estim Creat Clear Calc 91.9 Estimated GFR > 60 Random Glucose 98 (60-115) mg/dL Calcium 8.9 (8.4-10.2) mg/dL Troponin I High Sens < 3.5 (<3.5-35.0) ng/L 10/07/22 10/07/22 Range/Units 16:08 16:08 WBC (4.8-10.8) X10*3/uL RBC (4.60-5.80) X10*6/uL Hgb (14.0-18.0) g/dl Hct (42.0-52.0) % MCV (80.0-98.0) fL MCH (27.0-33.0) pg MCHC (31.0-36.0) g/dl RDW (11.0-16.0) % Plt Count (160-400) X10*3/uL MPV (9.4-12.4) fL Immature Gran % (Auto) (0.0-0.4) % Neut % (Auto) (45-73) % Lymph % (Auto) (20-40) % Twiggs % (Auto) (2-11) % Eos % (Auto) (0-4) % Baso % (Auto) (0-2) % Lymph # (Auto) (1.2-4.9) X10*3/uL Twiggs # (Auto) (0.1-1.2) X10*3/uL Eos # (Auto) (0.0-0.4) X10*3/uL Baso # (Auto) (0.0-0.2) X10*3/uL Abs Immat Gran (auto) (0.00-0.03) X10*3/uL Absolute Neuts (auto) (2.0-8.3) x10*3/uL Absolute Nucleated RBC (0.0-0.012) X10*3/uL Nucleated RBC % (auto) (0.0-0.2) /100WBC PT 16.1 H (10.0-13.1) SEC INR 1.4 H (0.9-1.1) APTT 37.9 H (26.0-36.4) SEC Sodium (135-145) mmol/L Potassium (3.3-5.1) mmol/L Chloride (96-108) mmol/L Carbon Dioxide (22-29) mmol/L Anion Gap (12-20) BUN (9-16) mg/dL Creatinine (0.5-1.4) mg/dL Estim Creat Clear Calc Estimated GFR Random Glucose (60-115) mg/dL Calcium (8.4-10.2) mg/dL Troponin I High Sens < 3.5 (<3.5-35.0) ng/L Independent Interpretation I performed an independent interpretation of an: EKG (Sinus rhythm with a rate of 63 beats per minute. No ST segment changes) and Plain X-Ray (No acute pat hology of the chest) Discharge Plan Discharge Clinical Impression: Atypical chest pain Patient Disposition: Home, Self-Care Instructions: Chest Pain (ED) Additional Instructions: Your workup in the emergency department today was reassuring. This includes your blood work, chest x-ray and EKG. It does not appear that your chest pain today was related to your heart Take Tylenol for any further pain and follow-up with her primary doctor Prescriptions: No Action diltiazem HCl 180 mg capsule,extended release 24hr 180 mg PO DAILY Qty: 90 3RF Xarelto 20 mg tablet 20 mg PO QPM Qty: 90 3RF lidocaine 5 % cream 1 appl topical BID PRN (Reason: pain) Qty: 15 0RF diclofenac sodium 1 % gel 1 ea topical QID citalopram 20 mg tablet 20 mg PO BID albuterol sulfate 90 mcg/actuation HFA aerosol inhaler 2 puff inhalation Q4H PRN (Reason: wheezing) ascorbic acid (vitamin C) 500 mg capsule PO nitric oxide gas 100 PPM gas inhalation tamsulosin 0.4 mg capsule 0.4 mg PO BID atorvastatin 20 mg tablet 20 mg PO DAILY olopatadine 0.1 % drops 1 drp ophthalmic (eye) ONCE carboxymethylcellulose sodium 0.5 % drops ophthalmic (eye) levetiracetam 1,000 mg tablet 1,000 mg PO BID
[2022-10-07 13:17] LABS: MANUAL DIFF FLAG NO
[2022-10-07 13:18] LABS: Basophils Percent Auto 0.6 % (0-2); Eosinophils Absolute Auto 0.2 X10*3/uL (0.0-0.4); Hematocrit 40.9 % (42.0-52.0); Hemoglobin 13.9 g/dl (14.0-18.0); Imm Gran Abs Auto 0.01 X10*3/uL (0.00-0.03); Imm Gran Pct Auto 0.2 % (0.0-0.4); Lymphocytes Percent Auto 18.9 % (20-40); Mean Corpuscular Volume 94.2 fL (80.0-98.0); Mean Platelet Volume 9.6 fL (9.4-12.4); Monocytes Absolute Auto 0.5 X10*3/uL (0.1-1.2); Monocytes Percent Auto 9.2 % (2-11); Neutrophils Absolute Auto 3.7 x10*3/uL (2.0-8.3); Neutrophils Percent Auto 68.1 % (45-73); Platelet Count 189 X10*3/uL (160-400); Red Blood Count 4.34 X10*6/uL (4.60-5.80); Red Cell Distribution Width 13.7 % (11.0-16.0); White Blood Count 5.4 X10*3/uL (4.8-10.8)
[2022-10-07 13:36] LABS: Anion Gap 12 (12-20); Blood Urea Nitrogen 14 mg/dL (9-16); Calcium 8.9 mg/dL (8.4-10.2); Carbon Dioxide 25 mmol/L (22-29); Chloride 107 mmol/L (96-108); Creatinine Clr Calc Pharmacy 91.9; Estimated Glomerular Filt Rate > 60; Glucose Random 98 mg/dL (60-115); Potassium 4.2 mmol/L (3.3-5.1); Sodium 140 mmol/L (135-145)
[2022-10-07 13:44] LABS: Troponin-I High Sensitivity < 3.5 ng/L (<3.5-35.0)
[2022-10-07 16:19] LABS: INTERNATIONAL NORM RATIO 1.4 (0.9-1.1); Prothrombin Time 16.1 SEC (10.0-13.1)
[2022-10-07 16:22] LABS: Partial Thromboplastin Time 37.9 SEC (26.0-36.4)
[2022-10-07 16:24] VITALS: BP 141/59; PULSE 60; RESP 18; TEMP 36.5; O2SAT 95
[2022-10-07 16:50] LABS: Troponin-I High Sensitivity < 3.5 ng/L (<3.5-35.0)
--- OUTSIDE RECORDS SUMMARY | 2022-10-07 18:42 | XMS_ITS | Encounter Summary ---
:1940 Author Organization [facility] Address [address] [place] [id number] Support Name Relationship Address Phone LINDEN PARDO Unavailable [address] [place] [address] LINDEN PARDO Unavailable [address] [place] [address] OLENANOBLE Unavailable [address] [facility] [place] [address] Insurance Providers: All historical and current Section Date Range: From patient's date of to the date document was created.This section includes the names of all active insurance providers for the patient. Insurance Type of Plan Start of End of Group Member Insurance Policy P atient's Provider Coverage Name Policy Policy Number ID Provider's Cherry's Relationship Coverage Coverage Telephone Name to Policy Number Cherry DANGELO ARREOLAT [id number] Jul 19, [id number] [phone] Rayne HILLMAN PATIENT ION 1 2017 26 1 SHELLEY PIERSON PRESCRIPT [id number] Jul 19, [id number] [phone] Rayne HILLMAN PATIENT ION 1 2017 [id number] 3 SHE[place]LEY MEDICARE MEDICARE PART Sep 16, PART B [id number] BUEHRL E PATIENT (WNR) (M) B 2005A [place] MEDICARE MEDICARE PART Sep 16, PART A [id number] BUEHRL E PATIENT (WNR) (M) A 2005A [place] MEDICARE MEDICARE PART Sep 16, PART B [id number] BUEHRL E PATIENT (WNR) (M) B 2005 [id number] [place] MEDICARE MEDICARE PART Sep 16, PART A [id number] BUEHRL E PATIENT (WNR) (M) A 2005 [id number] 2 [place] MEDICARE MEDICARE PART Sep 16, PART B [id number] BUEHRL E PATIENT (WNR) (M) B 2005 [id number] 2 [place] MEDICARE MEDICARE PART Sep 16, PART A [id number] BUEHRLE PATIENT (WNR) (M) A 2005 2 SRSUKI OPTUM RX PRESCRIPT RX Jul 19, THPRX [id number] [phone] BUEHR LE,M PATIENT ION 2022 26 5 ICHMAGGIE OPTUM RX PRESCRIPT RX Jul 19, THPRX [id number] [phone] BUEHR LE,M PATIENT ION 2022 [id number] ICHAEL [facility] Jul 19, [id number] [phone] BUEHR LE,M PATIENT HEALTH - 2018 [id number] [facility]EL [facility] Jul 19, [facility] [id number] [phone] BUEHRL E,M PATIENT HEALTH 2017 26 9 ICHAEL PLAN [facility] Jul 19, [id number] [phone] BUEHR LE,M PATIENT HEALTH [facility] 2017 26 9 ICHAEL PLAN TIMOTHYON ORELLANA [facility] Jul 21, [id number] BUEHRL E,M PATIENT HEALTH [facility] 2014 (WNR) [id number] ICHAEL PLAN CE Y [facility]IZ [facility] Jul 19, (WNR) [id number] [phone] BUEHRL E,M PATIENT HEALTHCARE RE(WN 2018 [id number] 9 ICHAEL (WNR) R) [employer]ICARE MCR Jul 19, [id number] BUEHRL E PATIENT MCR (WNR) ADVANTAGE (WNR) 2021 8 4 SR, Selected Encounter This section includes the information on record at PA for the Encounter. Date/Time Encounter Type Encounter Description Reason Provider Source Oct 22, 2021 11:00 Outpatient Encounter TELEPHONE TRIAGE AM IHE Encounter Template Text not used by PA Plan of Treatment: Future Appointments (+ 6 months) and Future Tests (+/- 45 days) The Plan of Treatment section includes future care activities for the [facility] This section includes future appointments and future orders which are active, pending orscheduled.Future Appointments This section includes appointments that were scheduled to occur 6 months from the date of the Encounter, up to a maximum of 20 appointments. The data comes from all PA treatment facilities. Appointment Date/Time Appointment Type Appointment Facili ty Name December 09, 2021 09:00 AM AMBULATORY - REHAB MEDICINE [facility] Jan 26[facility] 2022 02:[facility] Feb 10[facility] 2022 10:00 AM AMBULATORY - [facility] Mar 05, 2022 11:30 [facility] Mar 13, 2022 10:00 [facility] Social History: Smoking Status (Most current) and Tobacco Use (All prior to encounter date) This section includes the most current, and the historical, smoking and tobacco-related health factors from the PA facility where the Encounter took place.Current Smoking Status This section includes the most current smoking, or tobacco-related health factor, from the PA facility where the Encounter took place. Date/Time Current Smoking Status Comment Facility Aug 23, 2019 09:07 AM [facility]TOBAC[facility] QUIT [facility] Tobacco Use History This section includes a history of the smoking, or tobacco- related health factors, that were collected on or before the date of the Encounter. The data comes from the PA facility where the Encounter took place. Date/Time Smoking Status/Tobacco Use Comment [facility] Aug 23, 2019 09:07 AM PA-TOBACCO QUIT 15 YRS OR [facility] [place] [facility] Jun 28, 2018 10:50 AM [facility] Jun 28, 2018 10:50 AM PA-TOBACCO QUIT 15 YRS OR [facility] [place] [facility] Oct 14, 2017 09:20 AM QUIT TOBACCO USE > 7 YEARS [facility] [place] [facility] [facility] Oct 05, 2016 01:02 PM QUIT TOBACCO USE > 7 YEARS [facility] [place] [facility] [facility] Encounter Notes: All associated encounter notes This section contains the clinical notes associated to the Encounter. Date/Time Encounter Note(s) Provider Source Oct 22, 2021 11:00 AM TELEPHONE ENCOUNTER NOTE: YUE TONEY PA [facility] LOCAL TITLE: VISN 1 CCC ACTION REQUIRED [place] [facility] STANDARD TITLE: TELEPHONE ENCOUNTER NOTE DATE OF NOTE: OCT 22, 2021@11:00:23 ENTRY DATE: OCT 22, 2021@11:03:09 AUTHOR: YUE TONEY EXP COSIGNER: URGENCY: STATUS: COMPLETED VISN 1 CCC ACTION REQUIRED Has ADDENDA The patient, LEONARDO JACOBO ([id number]) called the call center. The following identifiers were used to verify th is patient: . SSN. Contact Type of call: ADMINISTRATIVE. Caller Response: ADM CALL RESOLVED Caller Area: [facility] Provider Info: LOCAL - [facility] [place] [facility] ([id number]) PACT: NO PACT 7 (Focus: Primary Care Only) Primary Care Provider: DALLAS CARTAGENA PH ONE:[phone] Radiological Equipment Specialist: Clinical Associate: ANGEL BILLINGSLEY PHONE:[phone] Surgical Supplies Sterilizer: RITIKA SIMMONS PACT Clinical Pharmacist: LADI HERNANDEZ PHONE:[phone] Clinical POC: Administrative POC: Surgical Supplies Sterilizer RITIKA SIMMONS Author: YUE TONEY Comments: reports that he has been unable to get through to audiology front services agent, after mulitilpe attempts. He requests a call abraham altamirano. Evaluation/Management Code: HC PRO PHONE CALL 5- 10 MIN ([phone]). Starting at: 10/22/2021 @ 11:00:23 AM Ending at: 10/22/2021 @ 11:02:07 AM Length: 1 minutes. Chief Complaint: Not applicable to call. Class Code: Other specified counseling. Patient's Email Address: [email or web address] YUE TONEY Signed: 10/22/2021 11:03 Receipt Acknowledged By: 10/22/2021 11:19 /alba/ GREGORIA KAUFFMAN AUDIOLOGY HEALTH MANAGER [facility] 10/22/2021 ADDENDUM STATUS: COMPLETED Forwarding to Audiology [facility]. /alba/ GREGORIA KAFUFMAN AUDIOLOGY HEALTH MANAGER RETAIL STORE Signed: 10/22/2021 11:20 Receipt Acknowledged By: * AWAITING SIGNATURE * RADHA VELAZQUEZ 10/22/2021 11:28 /alba/ PREETHI [facility]ED DELIVERY RN 10/22/2021 ADDENDUM STATUS: COMPLETED Called and left mess age for him to call the clinic back at [phone] /alba/ PREETHI [facility] DELIVERY RN Signed: 10/22/2021 11:29
--- OUTSIDE RECORDS SUMMARY | 2022-10-07 18:42 | XMS_ITS | Continuity of Care Document ---
:1940 Author Organization [facility] Care Team Providers Name Role Phone [facility] Unavailable Unavailable Problems Combined list of problems from Department of Defense and Veterans Affairs facilities. It does not include entries that were removed or entered in error. Problem Status Onset Problem Date of Comments Source Date Type Resolution Atrial fibrillation Active Condition Oct 05, 2016 [facility] Entered By: MALGORZATA TRUJILLO Comment: 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 H/O: osteoarthritis Active Condition Oct 05, 2016 [facility] Entered By: MALGORZATA TRUJILLO Comment: L knee HCS chronic limitation in ROM Oct 05, 2016 Entered By: MALGORZATA CREWS Comment: h/o R hip replacement Oct 05, 2016 Entered By: MALGORZATA CREWS Comment: h/o L rotator cuff repair Oct 05, 2016 Entered By: MALGORZATA CREWS Comment: h/o r ankle surgery related to trauma/fall Hepatitis C Active Condition Oct 05, 2016 [facility] Entered By: MALGORZATA TRUJILLO Comment: HCS referred to Hep C clinic 10/05/16 Jan 07, 2018 Entered By: POORNIMA NAVARRO Comment: Pt achieved SVR after 12 weeks of Harvoni in 2018 Lumbosacral Active Condition [facility] radicul[facility] [place] [facility] Multiple renal cysts Active Condition [facility] [place] [facility] Polyneuropathy Active Condition [place] [facility] Seizure disorder Active Condition Oct 05 [facility] Entered By: MALGORZATA TRUJILLOCH USETS Comment: HCS nonconvulsive seizures dx [facility]. lamotrigine. Neurology Dr. 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 Provider Comments: [place] Esophoria HCS Diagnosis: ICD-10-CM Active Diagnosis [facility] Z46.1 Encounter for [place] fitting and [place] adjustment of HCS hearing aidwith Provider Comments: Encounter for Fitting and Adjustment of Hearing Aid Diagnosis: ICD-10-CM Active Diagnosis [facility] H54.62 Unqualified W STRN visual loss, left [place] eye, normal vision H CS right eyewith Provider Comments: Unqualified Visual Loss, left Eye, Normal Vision right Eye Diagnosis: ICD-10-CM Active Diagnosis [facility] 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, left [place] eyewith Provider [facility] Comments: Vitreous Degeneration (PVD),Left Eye Diagnosis: ICD-10-CM Active Diagnosis [facility] H90.3 Sensorineural [place] hearing loss, [place] bilateralwith HCS Provider Comments: Sensorineural Hearing Loss, Bilateral Diagnosis: ICD-10-CM Active Diagnosis [facility] H53.2 Diplopiawith W STRN Provider Comments: [place] Diplopia [facility] Diagnosis: ICD-10-CM Active Diagnosis [facility] H10.45 Other chronic [place] allergic [place] conjunctivitiswith H CS Provider Comments: Conjunctivitis,Aller gic,Chronic Medications Combined list of outpatient medications from Department of Defense and Veterans Affairs facilities. Medications provided include 1) outpatient medications from the last 15 months, and 2) patient-reported medications. Medication Details Route Status Patient Prescription Prescription Last Ordering Order Source Instructions Expires Number Dispense Provider Date Date ACETAMINOPH TAKE ONE ORAL ACTIVE JERRY NAVARRO VA EN 500MG TABLET EN A 2016 CNTRL TAB BY MOUTH [facility] TWICE [place] DAILY [facility] HCS ALBUTEROL INHALE 2 INHALA ACTIVE MEREDITH CREWS VA 90MCG/ACTUA PUFFS BY TION TH M 2016 CNTRL T (CFC-F) MOUTH ORAL WSTRN INHL,ORAL,8 EVERY 4 [place] .5GM DOSE HOURS SETS COUNTER NEEDED HCS carboxymeth INSTILL Active 03/06/2023 [id number] OSHINS SANDI 03/10/ [place] ylcel 0.5% 1 DROP 2 , 2021 pton EYE DROP [2 INTO J [facility] X15ML] EACH EYE FOUR TIMES A DAY CARBOXYMETH INSTILL EACH ACTIVE 03/06/2023 [id number] OSHINS SANDI 03/05/ [facility] YLCELLULOSE 1 DROP EYE 3 ,2021 CNTR L NA 0.5% INTO J WSTRN SOLN,OPH EACH EYE [place] FOUR SETS TIMES A HCS DAY DEXAMETHASO INSTILL LEFT 09/17/2021 [id number] BORAS KI,A VA NE 1 DROP EYE 2 NDREW E 2021 CNTRL 0.1%/TOBRAM INTO THE WSTRN YCIN 0.3% LEFT EYE [place] SUSP,OPH THREE SETS TIMES A HCS DAY DILTIAZEM TAKE 2 ORAL ACTIVE CREWS,BE VA HCL 90MG CAPSULES TH M 2016 CNTRL 12HR CAP,SA BY MOUTH [facility] DAILY [place] [facility] KETOTIFEN INSTILL 08/19/2022 [id number] BORASKI , 12/13/ [place] 0.025 % EYE 1 DROP 2 2021 pton DROP [10 INTO [facility] ML] EACH EYE EVERY 12 HOURS (IF YOU WEAR CONTACT LENSES, WAIT 10 MINUTES BEFORE INSERTIN G LENSES) KETOTIFEN INSTILL EACH DISCONT 08/19/2022 [id number] BORASK I,A VA 0.025% 1 DROP EYE INUED 2 MADDY Moya 2021 CNTRL SOLN,OPH INTO WSTRN EACH EYE [place] EVERY 12 SETS HOURS HCS (IF YOU WEAR CONTACT LENSES, WAIT 10 MINUTES BEFORE INSERTIN G LENSES) MULTIVITAMI TAKE ONE ORAL ACTIVE JERRY NAVARRO 12/01/ VA NS CAP/TAB TABLET EN A 2016 CNTR[facility] BY MOUTH [facility] DAILY [place] [facility] OLOPATADINE INSTILL Active 01/27/2023 [id number] OSHINS SANDI 03/10/ [place] 0.1 % EYE 1 DROP 2 , 2021 pton DROP [5 ML] INTO [facility] EACH EYE TWICE DAILY OLOPATADINE INSTILL EACH ACTIVE 01/27/2023 [id number] OSHIN SKIE 04/08/ [facility] HCL 0.1% 1 DROP EYE 3 ,2021 CNTRL SOLN,OPH INTO J [facility]N EACH EYE [place] TWICE SETS DAILY HCS OLOPATADINE INSTILL EACH DISCONT 01/27/2023 [id number] OSHIN SKIE 01/26/ [facility] HCL 0.1% 1 DROP EYE INUED 2 ,2021 CNTRL SOLN,OPH INTO J WSTRN EACH EYE [place] TWICE SETS DAILY HCS RIVAROXABAN TAKE ONE ORAL ACTIVE ELEONORA,BE 10/05/ VA 20MG TAB TABLET 2016 CNTR[facility] BY MOUTH [facility] DAILY [place] [facility] Tobramycin INSTILL 09/17/2021 [id number] BORASK I, 09/30/ [place] Sulfate/Dex 1 DROP 2 2021 pton amethasone INTO THE [facility] (TobraDex LEFT EYE Eq.) THREE Suspension TIMES A 0.3%-0.1% DAY Optical Allergies, Adverse Reactions, Alerts Combined list of allergies from Department of Defense and Veterans Affairs facilities. It does not include entries that were removed or entered in error. Substance Category Reaction Severity Reaction Status Date Comments S ource type Reported Codeine Drug active Northa mpto allergy 7 n [facility] (disorder) CODEINE Propensity active [facility] to adverse 7 [place] reactions [place] to drug S HCS (finding) Hydrocodone Drug active No rthampto allergy 7 n [facility] (disorder) Piroxicam Drug active Nort hampto allergy 7 n [facility] (disorder) PIROXICAM Propensity active V A CNTRL to adverse 7 [place] reactions [place] to drug S HCS (finding) VICODIN Propensity active [facility] to adverse 7 [place] reactions [place] to drug S HCS (finding) Immunizations Combined list of available immunizations from the Department of Defense and Veterans Affairs facilities. Immunization Series Date Administered Site Reaction Lot CVX Drug St atus Comments Source Given By Number Code Shirt Closer COVID-19 2 complet MOD; VA (MODERNA), 2020 ed [id number]; CNTRL MRNA, LNP-S, 02 WSTRN PF, 100 1 [place] MCG/0.5 ML SET S DOSE HCS COVID-19 1 complet MOD; VA (MODERNA), 2020 ed [id number]; CNTRL MRNA, LNP-S, 02 WSTRN PF, 100 1 [place] MCG/0.5 ML SET S DOSE HCS INFLUENZA, complet VA UNSPECIFIED 2019 ed CN TRL FORMULATION WS TRN [place] [facility] PNEUMOCOCCAL complet VA POLYSACCHARID 2019 ed CNTRL E PPV23 [facility] [place] [facility] INFLUENZA, complet [place] VA SEASONAL, 2018 ed Jus CN TRL INJECTABLE office WS TRN [place] [facility] INFLUENZA, complet [facility] SEASONAL, 2017 ed CNTR L INJECTABLE WST RN [place] [facility] ZOSTER 2 complet VA RECOMBINANT 2017 ed CN TRL [facility] [place] [facility] ZOSTER 1 complet VA RECOMBINANT 2018 ed CN TRL [facility] [place] [facility] HEP A-HEP B complet Site: VA 2017 ed Left [facility]TR[facility] Deltoid [facility] [place] [facility] INFLUENZA, complet [facility] SEASONAL, 2017 ed CNTR L INJECTABLE WST RN [place] [facility] HEP A-HEP B complet Site: [facility] 2017 ed Left [facility] Deltoid [facility] [facility] HEP A-HEP B complet Site: [facility] 2017 ed Left [facility] Deltoid [facility] [place] [facility] FLU,3 YRS complet V A (HISTORICAL) 2016 ed C NTRL [place] [facility] PNEUMOCOCCAL complet Rive rbend VA CONJUGATE PCV 2016 ed CNTRL 13 [facility] [place] [facility] FLU,3 YRS complet [place] (H[place]ORICAL) 2015 ed - High CNTR[facility] dose [facility] [place] [facility] PNEUMOCOCCAL complet Rive rbend VA CONJUGATE PCV 2016 ed CNTRL 13 [facility] [place] [facility] ZOSTER complet [place] [facility] (HISTORICAL) 2016 ed C [facility]TRL [facility] [place] [facility] TDAP complet [place] [facility] 2016 ed bend [facility]L [facility] [place] [facility] FLU,3 YRS complet [place] [facility] (HISTORICAL) 2014 ed C NTRL [facility] [place] [facility] FLU,3 YRS complet [place] [facility] (HISTORICAL) 2013 ed C NTRL [place] [facility] PNEUMOCOCCAL complet Rive rbend [facility] CONJUGATE PCV 2013 ed CNTRL 13 [facility] [place] [facility] FLU,3 YRS complet [place] [facility] (HISTORICAL) 2012 ed C NTRL [facility] [place] [facility] TDAP complet [place] A 2012 ed CNTRL [facility] [place] [facility] FLU,3 YRS complet [place] [facility] (HISTORICAL) 2011 ed C NTRL [facility] [place] [facility] FLU,3 YRS complet [place] [facility] (HISTORICAL) 2010 ed C NTRL [facility] [place] [facility] TD(ADULT) 11/09/ 139 complet [place] [facility] UNSPECIFIED 2009 ed CN TRL FORMULATION WS TRN [place] [facility] FLU,3 YRS complet [place] [facility] (HISTORICAL) 2009 ed C NTRL [facility] [place] [facility] FLU,3 YRS complet [place] [facility] (HISTORICAL) 2009 ed -H1N1-P an CNTR[facility] demic flu [facility] [place] [facility] FLU,3 YRS complet [place] [facility] (HISTORICAL) 2008 ed C NTRL [place] [facility] ZOSTER complet [place] [facility] (HISTORICAL) 2007 ed C NTRL [facility] [place] [facility] FLU,3 YRS complet [place] [facility] (HISTORICAL) 2007 ed C NTRL [facility] [place] [facility] FLU,3 YRS complet [place] [facility] (HISTORICAL) 2006 ed C NTRL [facility] [facility] FLU,3 YRS complet [place] [facility] (HISTORICAL) 2005 ed C [facility]L [facility] [place] [facility] FLU,3 YRS complet [place] [facility] (HISTORICAL) 2004 ed C NTRL [place] [facility] PNEUMOCOCCAL complet Rive rbend VA CONJUGATE PCV 2004 ed CNTRL 13 [facility] [place] [facility] TD(ADULT) complet [place] [facility] UNSPECIFIED 2003 ed CN TRL FORMULATION WS [facility]N [place] [facility] Encounters Combined list of: 1) Encounters from Department of Veterans Affairs facilities going back up to the last 18 months. 2) Encounters from the Department of Defense facilities going back up to 280 months. Location Location Encounter Encounter Reason Attending ADM DC Stat us Disposition Source Details Type Number For Provider Date Date Visit HEARING 55795-4.63 Diagnos SOPHIAMATHEWHUBER 06/23 [facility] AID [id number] is: UREN CNTRL REPAIR/MOD ICD-10- WSTRN IFYING CM [place] Z46.1 SETS [facility] er for fitting and adjustm ent of hearing aid<br/ >with Provide r Comment s: Encount er for Fitting and Adjustm ent of Hearing Aid Outpatient [id number] 07/25 [facility] Encounter [id number] /2022 [facility] [place] [facility] Outpatient 01212-7.63 08/01 [facility] Encounter [id number] [facility] [place] [facility] EYE EXAM 73229-7.63 Diagnos ARYAAN 08/18 [facility] ESTABLISH [id number] is: JOHN PAUL E CNTR L PATIENT ICD-10- WSTRN CM [place] H10.45 SETS Other HCS chronic allergi c conjunc tivitis
wi th Provide r Comment s: Conjunc tivitis ,Allerg ic,Manuscripts Archivist sally Outpatient 56376-2.63 08/28 [facility] Encounter [id number] /2022 [facility] [place] [facility] Outpatient 63132-5.63 09/04 [facility] Encounter 1. [facility] [facility] OFFICE O/P 84091-5.63 Diagnos MERCOLIN,ROGER 10/07 VA EST LOW [id number] is: H B CNTRL 20-29 MIN ICD-10- WSTRN CM [place] H53.2 SETS [facility] a
w ith Provide r Comment s: Diplopi a Outpatient 41135-3.63 10/07 [facility] Encounter [id number] [facility] [place] [facility] Out[place] 61092-8.63 10/22 [facility] Encounter [id number] [facility] [facility] Outpatient 41565-2.63 11/18 [facility] Encounter [id number] /2022 [facility] [place] [facility] HEARING 10375-0.63 Diagnos MARISSA,C 12/09 [facility] AID [id number] is: MEHRDAD E CNTRL REPAIR/MOD ICD-10- WSTRN IFYING CM [place] Z46.1 SETS [facility] H[facility] er for fitting and adjustm ent of hearing aid<br/ >with Provide r Comment s: Encount er for Fitting and Adjustm ent of Hearing Aid EYE 22053-9.63 Diagnos TIMMY, 01/26 VA EXAM&TX [id number] is: VIVI Garcia CNT RL ESTAB PT ICD-10- WSTRN 1/>VST CM [place] H43.812 SETS Vitreou HCS s degener ation, left eye<br/ >with Provide r Comment s: Vitreou s Degener ation (PVD),L eft Eye HEARING 79541-1.63 Diagnos RAPHAEL CALLE 02/10 [facility] AID [id number] is: ALICE MEERA CNTRL REPAIR/MOD ICD-10- WSTRN IFYING CM [place] H90.3 SETS [facility] neural hearing loss, bilater al
with Provide r Comment s: [facility] neural Hearing Loss, Bilater al EYE 71836-6.63 Diagnos TIMMY, 03/05 VA EXAM&TX [id number] is: VIVI CNT RL ESTAB PT ICD-10- WSTRN 1/>VST CM [place] H43.812 SETS Vitreou HCS s degener ation, left eye<br/ >with Provide r Comment s: Vitreou s Degener ation (PVD),L eft Eye Outpatient 45377-0.63 03/11 [facility] Encounter [id number] /2022 [facility] [place] [facility] Outpatient 39536-6.63 03/11 [facility] Encounter [id number] /2022 [facility] [facility] Outpatient 06594-1.63 03/12 VA Encounter [id number] /2022 [facility] [place] [facility] EYE 55291-7.63 Diagnos IGLESIA KOENIG 03/13 VA EXAM&TX [id number] is: JOHN PAUL Moya CNTRL ESTAB PT ICD-10- WSTRN 1/>VST CM [place] H54.62 SETS [facility] fied visual loss, left eye, normal vision right eye<br/ >with Provide r Comment s: Unquali fied Visual Loss, left Eye, Normal Vision right Eye Outpatient 88519-4.63 03/18 [facility] Encounter [id number] /2022 [facility] [facility] Outpatient 03299-8.63 05/15 [facility] Encounter [id number] [facility] [place] [facility] Outpatient 56925-1.63 05/26 [facility] Encounter [id number] /2022 [facility] [place] [facility] BATTERY 78075-8.63 Diagnos CALLERAPHAEL 08/04 VA FOR [id number] is: ALICE ESTES CNTRL HEARING ICD-10- WSTRN DEVICE CM [place] Z46.1 SETS [facility] H[facility] er for fitting and adjustm ent of hearing aid<br/ >with Provide r Comment s: Encount er for Fitting and Adjustm ent of Hearing Aid DETERMINE [id number] Diagnos CHRISSYINDIAJESSE, 08/18 [facility] REFRACTIVE [id number] is: VIVI Garcia CNTRL STATE ICD-10- WSTRN CM [place] H50.51 SETS [facility] ia
with Provide r Comment s: Esophor ia Outpatient 44096-6.63 08/18 VA Encounter [id number] [facility] [place] [facility] FIT 67985-1.63 Diagnos KIMMY GRECO 08/18 [facility] SPECTACLES [id number] is: ZAN CN TRL MULTIFOCAL ICD-10- WSTRN CM [place] Z46.0 SETS [facility] HCS er for fit/adj st of spectac les and contact lenses< br/>wit h Provide r Comment s: Encount er for Fitting and Adjustm ent of Spectac les and Contact Lenses Outpatient 67207-7.63 08/21 [facility] Encounter [id number] /2023 [facility] [place] [facility] REPAIR & 10400-963 KIMMY Garcia 08/27 VA ADJUST [id number] is: ZAN CNTRL SPECTACLES ICD-10- WSTRN CM [place] Z46.0 SETS [facility] er for fit/adj st of spectac les and contact lenses< br/>wit h Provide r Comment s: Encount er for Fitting and Adjustm ent of Spectac les and Contact Lenses EYE EXAM 07816-4.63 Diagnos REANNA MARMOLEJO 10/06 [facility] ESTABLISH [id number] is: JOSE /2023 CNTRL PATIENT ICD-10- WSTRN CM [place] L71.8 SETS Other HCS rosacea
wi th Provide r Comment s: Rosacea NEC Social History Combined list of available smoking, tobacco, and other social history from Department of Defense andVeterans Affairs facilities. Social History Type Response Date Comment Source Tobacco smoking VA-TOBACCO QUIT 15 08/23/2019 AL CNT RL WSTRN status NHIS YRS OR MORE [place] [facility] History of tobacco VA-TOBACCO FORMER 08/23/2019 VA C NTRL [facility] use USER [place] [facility] History of tobacco VA-TOBACCO FORMER 06/28/2018 VA C NTRL [facility] use [facility]ER [place] [facility] History of tobacco QUIT TOBACCO USE > 7 10/14/2017 V A CNTRL WSTRN use YEARS AGO [place] [facility] History of tobacco QUIT TOBACCO USE > 7 10/05/2016 V A CNTRL WSTRN use YEARS AGO [place] [facility] This section is an DoD empty social history section. Plan of Care List of future care activities from Department of Veterans Affairs facilities. Additional future care activities may be listed in the Assessment and Plan section. Date/Time Care Activity Care Activity Detail Facility 03/05/2023 AMBULATORY - MEDICINE AMBULATORY - MEDICINE AL C NTRL [place] [facility]
--- OUTSIDE RECORDS SUMMARY | 2022-10-07 18:43 | XMS_ITS | Encounter Summary ---
:1940 Author Organization [facility] rs Address [address] [place] [address] Support Name Relationship Address Phone LINDEN PARDO Unavailable [address] [place] [address] LINDEN PARDO Unavailable [address] [place] [address] OLENANOBLE Unavailable [address] [place] [address] Insurance Providers: All historical and current Section [...] Number Cherry DANGELO ARREOLAT [id number] Jul 19, [id number] [phone] Rayne HILLMAN PATIENT ION 1 2017 26 1 SHELLEY PIERSON PRESCRIPT [id number] Jul 19, [id number] [phone] Rayne HILLMAN PATIENT ION 1 2017 [id number] SHELLEY MEDICARE MEDICARE PART Sep 16, PART B [id number] BUEHRL E PATIENT (WNR) (M) B 2005A [place] MEDICARE MEDICARE PART Sep 16, PART A [id number] BUEHRL E PATIENT (WNR) (M) A 2005A [place] MEDICARE MEDICARE PART Sep 16, PART B [id number] BUEHRL E PATIENT (WNR) (M) B 2005 [id number] [place] MEDICARE MEDICARE PART Sep 16, PART A [id number] BUEHRL E PATIENT (WNR) (M) A 2005 AH82 2 [place] MEDICARE MEDICARE PART Sep 16, PART B [id number] BUEHRL E PATIENT (WNR) (M) B 2005 AH82 2 [place] MEDICARE MEDICARE PART Sep 16, PART A [id number] BUEHRLE PATIENT (WNR) (M) A 2005 2 SRSUKI OPTUM RX PRESCRIPT RX Jul 19, THPRX [id number] [phone] BUEHR LE,M PATIENT ION 2022 26 5 ICHMAGGIE OPTUM RX PRESCRIPT RX Jul 19, THPRX [id number] [phone] BUEHR LE,M PATIENT ION 2022 [id number] ICHAEL [facility] Jul 19, [id number] [phone] BUEHR LE,M PATIENT HEALTH - 2018 [id number] ICHAEL [facility] Jul 19, [facility] [id number] [phone] BUEHRL E,M PATIENT HEALTH 2017 26 9 ICHAEL PLAN [facility] Jul 19, [id number] [phone] BUEHR LE,M PATIENT HEALTH [facility] 2017 26 9 ICHAEL [facility]AN [facility] Jul 21, [id number] [phone] BUEHRL E,M PATIENT HEALTH [facility] 2014 (WNR) [id number] ICHAEL PLAN [facility] Jul 19, (WNR) [id number] [phone] BUEHRL E,M PATIENT HEALTHCARE RE(WN 2018 [id number] 9 ICHAEL (WNR) R) [employer] MEDICARE MCR Jul 19, [id number] [phone] BUEHRL E PATIENT MCR (WNR) ADVANTAGE (WNR) 2021 8 4 SR, Selected Encounter This section includes the information on record at HI for the Encounter. Date/Time Encounter Type Encounter Description Reason Provider Source November 18, 2021 03:26 Outpatient Encounter COMMUNITY CARE PM CONSULT IHE Encounter Template Text not used by HI Plan of Treatment: Future Appointments (+ 6 months) and Future Tests (+/- 45 days) The Plan of Treatment section includes future care activities for the patient from [facility] This section includes future appointments and future orders which are active, pending orscheduled.Future Appointments This section includes appointments that were scheduled to occur 6 months from the date of the Encounter, up to a maximum of 20 appointments. The data comes from all HI treatment facilities. Appointment Date/Time Appointment Type Appointment Facili ty Name December 09, 2021 09:00 AM AMBULATORY - [facility]AB [facility] Jan 26, 2022 02:00 PM [facility]UL[facility] MEDICINE [facility] Feb 10, 2022 10:00 AM AMBULAT[facility] Mar 05, 2022 11:30 AM [facility] Mar 13, 2022 10:00 [facility] Social History: Smoking Status (Most current) and Tobacco Use (All prior to encounter date) This section includes the most current, and the historical, smoking and tobacco-related health factors from the HI facility where the Encounter took place.Current Smoking Status This section includes the most current smoking, or tobacco-related health factor, from the HI facility where the Encounter took place. Date/Time Current Smoking Status Comment Facility Aug 23, 2019 09:07 AM HI-TOBACCO QUIT 15 YRS OR HI CNTR [facility] Tobacco Use History This section includes a history of the smoking, or tobacco- related health factors, that were collected on or before the date of the Encounter. The data comes from the HI facility where the Encounter took place. Date/Time Smoking Status/Tobacco Use Comment [facility] Aug 23, 2019 09:07 AM HI-TOBACCO QUIT 15 YRS OR HI CNTR WSTRN [place] [facility] Jun 28, 2018 10:50 AM [facility]CO [facility] Jun 28, 2018 10:50 AM VA-TOBACCO QUIT 15 YRS OR HI CNTR WSTRN [place] [facility] Oct 14, 2017 09:20 AM QUIT TOBACCO USE > 7 YEARS [facility]TRL [place] A[place] HCS Oct 05, 2016 01:02 PM QUIT TOBACCO USE > 7 YEARS VA CN[facility]L [place] AGO [facility] Encounter Notes: All associated encounter notes This section contains the clinical notes associated to the Encounter. Date/Time Encounter Note(s) Provider Source November 18, 2021 03:26 PM NONVA NOTE: SEGUNDO MCFARLANE [facility] LOCAL TITLE: COMMUNITY CARE COORDINATION PLAN STANDARD TITLE: NONVA NOTE DATE OF NOTE: NOVEMBER 18, 2021@15:26 ENTRY DATE: NOVEMBER 18, 2021@15:26:15 AUTHOR: SEGUNDO MCFARLANE EXP COSIGNER: URGENCY: STATUS: COMPLETED self-presented to community emergency fa cility Emergency Notification Intake Date Presenting to the Facility: Oct [facility] Name: Hospital: [place], [place] Address: City: [place] State: Zip Code: Phone : Chief complaint: INCR WEAKNESS Primary Diagnosis: Patient Admitted? No Community Facility Point of Contact: Name: Karin Phone: info from ECRA /alba/ SEGUNDO MCFARLANE AMSA Signed: 11/18/2021 15:27 Receipt Acknowledged By: * AWAITING SIGNATURE * GUERDA LUA * AWAITING SIGNATURE * PINA MURILLO * AWAITING SIGNATURE * ANDERSON GUIDRY 11/18/2021 15:32 /es/ Rakesh Chu DNP, FN P-BC, CNL Primary Care Nurse Practitioner
--- OUTSIDE RECORDS SUMMARY | 2022-10-07 18:43 | XMS_ITS | Encounter Summary ---
:1940 Author Organization [facility] Address [address] [place] [id number] Support Name Relationship Address Phone LINDEN PARDO Unavailable [address] [place] [address] LINDEN PARDO Unavailable [address] [place] [address] OLENANOBLE Unavailable [address] [facility] [place] [address] Insurance Providers: All historical and current Section [...] Number Cherry DANGELO ARREOLAT [id number] Jul 19, [id number] [phone] Rayne HILLMAN PATIENT ION 1 2017 26 1 SHELLEY PIERSON PRESCRIPT [id number] Jul 19, [id number] [phone] Rayne HLILMAN PATIENT ION 1 2017 [id number] 3 SHELLEY MEDICARE MEDICARE PART Sep 16, PART B [id number] [id number] BUEHRL E PATIENT (WNR) (M) B 2005A [place] [employer] MEDICARE PART Sep 16, PART A [id number] BUEHRL E PATIENT (WNR) (M) A 2005A [place] [employer] MEDICARE PART Sep 16, PART B [id number] BUEHRL E PATIENT (WNR) (M) B 2005 [id number] [place] MEDIC[employer] MEDICARE PART Sep 16, PART A [id number] BUEHRL E PATIENT (WNR) (M) A 2005 [id number] 2 [place] MEDICARE MEDICARE PART Sep 16, PART B [id number] BUEHRL E PATIENT (WNR) (M) B 2005 [id number] 2 [place] MEDIC[employer] MEDICARE PART Sep 16, PART A [id number] BUEHRLE PATIENT (WNR) (M) A 2005 2 SRSUKI OPTUM RX PRESCRIPT RX Jul 19, THPRX [id number] [phone] BUEHR LE,M PATIENT ION 2022 26 5 ICHMAGGIE OPTUM RX PRESCRIPT RX Jul 19, THPRX [id number] [phone] BUEHR LE,M PATIENT ION 2022 [id number] ICHAEL [facility] Jul 19, [facility] [id number] [phone] BUEHR LE,M PATIENT HEALTH - 2018 [id number] ICHAEL [facility] Jul 19, [facility] [id number] [phone] BUEHRL E,M PATIENT HEALTH 2017 26 9 ICHAEL PLAN [facility] Jul 19, [id number] [phone] BUEHR LE,M PATIENT HEALTH [facility] 2017 26 9 ICHAEL PLAN TIMOTHYON [facility] Jul 21, [facility] [id number] [phone] BUEHRL E,M PATIENT HEALTH [facility] 2014 (WNR) [id number] ICHAEL PLAN [facility] Jul 19, (WNR) [id number] [phone] BUEHRL E,M PATIENT HEALTHCARE RE(WN 2018 7701 9 ICHAEL (WNR) R) [employer]ICARE MCR Jul 19, [id number] BUEHRL E PATIENT MCR (WNR) ADVANTAGE (WNR) 2021 8 4 SR, Selected Encounter This section includes the information on record at [place] for the Encounter. Date/Time Encounter Type Encounter Reason Provider Source Description Jan 26, 2022 EYE EXAM&TX OPTOMETRY ICD-10-CM H43.812 OSHINSKIE,LEA 02:00 PM ESTAB PT 1/>VST Vitreous NARD J degeneration, left eye with Provider Comments: Vitreous Degeneration (PVD),Left Eye IHE Encounter Template Text not used by [facility] Assessments - Encounter Diagnoses This section includes the primary and secondary diagnoses documented for the Encounter. Date/Time Primary/Secondary Diagnosis Name Provider Source Diagnosis Jan 26, 2022 PRIMARY Vitreous OSHINSKIE,[place]OR[place]IE [facility] 03:21 PM degeneration, [place] left eye Jan 26, 2022 SECONDARY Diplopia OSHINSKIE,[place] [facility] 03:21 PM [place] [facility] Jan 26, 2022 SECONDARY Dry eye syndrome [facility],[facility] W[facility] 03:21 PM of bilateral [place]ADI [place] [facility] lacrimal glands Jan 26, 2022 SECONDARY Hypermetropia, OSHINSKIE,[facility] CN[facility] WS TRN 03:21 PM bilateral [place]ADI [place] [facility] Jan 26, 2022 SECONDARY Other secondary OSHINSKIE,[facility] CN[facility] W STRN 03:21 PM cataract, [place]I [facility] [place] [facility] bilateral Jan 26, 2022 SECONDARY Presbyopia OSHINSKIE,[place] [facility] 03:21 PM [place] [facility] Jan 26, 2022 SECONDARY Presence of OSHINSKIE,[facility] CN[facility] W[facility] N 03:21 PM intraocular lens [place]ADI [place] [facility] Jan 26, 2022 SECONDARY Regular OSHINSKIE,[facility] W[facility] N 03:21 PM astigmatism, [place]ADI [place] [facility] bilateral Plan of Treatment: Future Appointments (+ 6 months) and Future Tests (+/- 45 days) The Plan of Treatment section includes future care activities for the patient from all [place] treatmentfacilities. This section includes future appointments and future orders which are active, pending orscheduled.Future Appointments This section includes appointments that were scheduled to occur 6 months from the date of the Encounter, up to a maximum of 20 appointments. The data comes from all [place] treatment facilities. Appointment Date/Time Appointment Type Appointment Facili ty Name Feb 10, 2022 10:00 AM AMBULATORY - REHAB MEDICINE [facility] [place] [facility] Mar 05, 2022 11:30 AM AMBULATORY - MEDICINE [facility] [place] [facility] Mar 13, 2022 10:00 AM AMBULATORY - MEDICINE [facility] [place] [facility] Social History: Smoking Status (Most current) and [...] Comment Facility Aug 23, 2019 09:07 AM VA-TOBACCO QUIT 15 YRS OR [facility] [place] [facility] Tobacco Use History This section includes a history of the smoking, or tobacco- related health factors, that were collected on or before the date of the Encounter. The data comes from the [facility] facility where the Encounter took place. Date/Time Smoking Status/Tobacco Use Comment [facility] Aug 23, 2019 09:07 AM VA-TOBACCO QUIT 15 YRS OR [facility] [place] [facility] Jun 28, 2018 10:50 AM VA-TOBACCO FORMER USER [facility] [place] [facility] Jun 28, 2018 10:50 AM VA-TOBACCO QUIT 15 YRS OR [facility] [place] [facility] Oct 14, 2017 09:20 AM QUIT TOBACCO USE > 7 YEARS [facility] [place] [facility] [facility] Oct 05, 2016 01:02 PM QUIT TOBACCO USE > 7 YEARS [facility] [place] [facility] [facility] Encounter Notes: All associated encounter notes This section contains the clinical notes associated to the Encounter. Date/Time Encounter Note(s) Provider Source Jan 26, 2022 01:38 OPTOMETRY NOTE: VIVI DECKER [facility] PM LOCAL TITLE: OPTOMETRY NOTE [facility] STANDARD TITLE: OPTOMETRY NOTE DATE OF NOTE: JAN 26, 2022@13:38 ENTRY DATE: JAN 26, 2022@13:38:43 AUTHOR: FEDERICO AGUILLON COSIGNER: VIVI DECKER URGENCY: STATUS: COMPLETED OPTOMETRY NOTE Has ADDENDA Active problems - Computerized Problem List is t he source for the followin. Benign Prostatic Hypertrophy without Outflow Obstruction (SCT [id number]) 2. Lumbosacral radiculopathy 3. Multiple renal cysts 4. Benign essential hypertension 5. Toxic polyneuropathy 6. Sleep apnea 7. Hepatitis C 8. H/O: osteoarthritis 9. Atrial fibrillation 10. Seizure disorder 11. Cerebral atrophy 12. Cognitive disorder Active Outpatient Medications (including Supplie s): Active Outpatient Medications Status 1) KETOTIFEN 0.025% OPH SOLN INSTILL 1 DROP INTO EACH ACTIVE EYE EVERY 12 HOURS (IF YOU WEAR CONTACT LENSES, WAIT 10 MINUTES BEFORE INSERTING LENSES) Active Non-VA Medications Status 1) Non-VA ACETAMINOPHEN 500MG TAB 500MG BY MOUTH TWICE ACTIVE DAILY 2) Non-VA ALBUTEROL 90MCG (CFC-F) 200D ORAL INHL 2 PUFFS ACTIVE BY MOUTH EVERY 4 HOURS NEEDED 3) Non-VA DILTIAZEM HCL 90MG 12HR SA CAP 180MG B Y MOUTH ACTIVE DAILY 4) Non-VA MULTIVITAMIN CAP/TAB 1 TABLET BY MOUTH DAILY ACTIVE 5) Non-VA RIVAROXABAN 20MG TAB 20MG BY MOUTH HALIMA LY ACTIVE 6 Total Medications No data for HEMOGLOBIN A1C Allergies: VICODIN, CODEINE, PIROXICAM All medications including th ose prescribed by outside VA's, community providers, and all OTC meds were review ed and reconciled with patient to the best of their abilities. This 81 year old MALE is seen today for a follow up for diplopia Last eye exam:09/2021 Reason for Visit/CC: Patient presents fo r follow up he states he no longer has double vision but has noticed there is a decreas e in his near vision OU. He still has itchy eyes in the morning, He is taking ketotifen in the morning and at night but it is not longer releiving his symp toms. He reports occassional, flashes in his left eye supe riorly with onset about 2 months prior mainly while he's reading. OHx: pseudophakia OU asymmetric cupping OS>OD previously reported 4 episodes of diplopia x <1 min 05/2020 sees a neurologist in community - had at least o ne mini stroke (-) Pain: (-) LLANOS: (-) Diplopia: (+) Flashes: Left eye superi ibrahima, occassionally happens when he's reading, onset about 2 months ago. . (-) Floaters: (-) Amaurosis Fugax/Tia's: (-) Eye Injury: (-) Eye Surgery: (-) TBI (-) FOHx: Current/Last Rx: OD +2.25 -2.00 x 105 1PD BRANDI 20/20 OS +1.25 -2.75 x 080 1PD BRANDI 20/20 Add: +2.25 DVA ( )sc (x)cc OD 20/20 OS 20/20 Pupils: PERRL (-)APD EOMs: SAFE OU, (-) pain/diplopia Confrontation Visual Stephenson: OD: FTFC OS: FTFC Subjective: DVA: OD +2.25 -2.00 x 105 1PD BRANDI 20/20 OS +1.25 -2.75 x 080 1PD BRANDI 20/20 Add: +2.25 All the above pe rformed by student, reviewed by attending Anterior segment: Performed by student, repeated by attending SLE: Lids/Lashes:Dermatiochalasis, trace inspissated meibomian glands OU Conjunctiva: clear and quiet OU Corneas: arcus, trace diffuse SPK OU Iris: flat OU Anterior Chamber: deep and quiet OU Angles:3/4:1 T&N OU Lens: PCIOL centered and clear OU, 1+PCO OD trac e PCO OS Performed by student, reviewed by attending TONOMETRY: Time:1:56pm OD 12 mm Hg OS 12 mm Hg Dilation: 1 gtt 1% Tropicamide OU and 1gtt 2.5% phenylephrine OU at (Pt. ed. on side effects) Time:1:58pm Performed by student, repeated by attending vitreous: PVD OS syneresis OD c/d OD 0.55 OS 0.70 disc color pink OU disc margins distinct ou macula clear OU vessels 2/3 periph intact, no holes, tears or breaks 360 ou Assessment/Plan: 1. Pseudophakia OU -stable -continue to monitor at yearly CEE 2. 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 3. Posterior capsular opacity OU -not visually significant at this time. -continue to monitor at yearly CEE 4. PVD OS -symptomatic for flashes of light -Pt educated on signs and symptoms of RD and to ld to call KATE if symptoms noted. -RTC in 4 weeks for DFE 5. 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 Large physiological cupping OU -normotensive IOPS previously and today -OCT previously shows no signs of glaucomatous disease. -Previous HVF WNL -continue to monitor at yearly CEE 7. 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 Patient Education: Glaucoma: Patient was educated regarding glaucoma/glaucoma suspect as well as the natural history of this diagnosis including prognosis. Stress importance of compliance and persistency with glaucoma medication when prescribed, timely follow up as well as the role of ancillary testing. Exclusion criteria for anc illary testing include significantly reduced acuity, mental sta tus changes affecting the patient's ability to attend to the test or other physical limitations that would prohibit t he patient's ability to participate in testing. /alba/ Vivi Decker OD Fee Basis Ply Cutter Signed: 01/26/2022 15:22 for FEDERICO AGUILLON OPTOMETRY STUDENT /filippo Decker OD Fee Basis Ply Cutter Cosigned: 01/26/2022 15:22 01/26/2022 ADDENDUM STATUS: COMPLETED I reviewed all findings with the child psychologist. I perfo rmed the slit lamp exam and dilated fundus exam. No sign s of RD or retinal breaks OU. Progress note reviewed and edited as needed. I established the plan of care and educated the patient about his conditions. /filippo Decker OD Fee Basis Ply Cutter Signed: 01/26/2022 15:23
--- OUTSIDE RECORDS SUMMARY | 2022-10-07 18:43 | XMS_ITS | Encounter Summary ---
:1940 Author Organization [facility] Address [address] [place] [id number] Support Name Relationship Address Phone LINDEN PARDO Unavailable [address] [place] [address] LINDEN PARDO Unavailable [address] [place] [address] OLEANNOBLE Unavailable [address] [facility] [place] [address] Insurance Providers: All historical and current Section [...] Number Cherry DANGELO ARREOLAT [id number] Jul 19, [id number] [phone] Rayne HILLMAN PATIENT ION 1 2017 26 1 SHELLEY PIERSON PRESCRIPT [id number] Jul 19, [id number] [phone] Rayne HILLMAN PATIENT ION 1 2017 [id number] 3 SHELLEY MEDICARE MEDICARE PART Sep 16, PART B [id number] BUEHRL E PATIENT (WNR) (M) B 2005A [place] MEDICARE MEDICARE PART Sep 16, PART A [id number] BUEHRL E PATIENT (WNR) (M) A 2005A [place] MEDICARE MEDICARE PART Sep 16, PART B [id number] BUEHRL E PATIENT (WNR) (M) B 2005 [id number] [place] MEDICARE MEDICARE PART Sep 16, PART A [id number] BUEHRL E PATIENT (WNR) (M) A 2005 [id number] 2 [place] MEDICARE MEDICARE PART Sep 16, PART B [id number] BUEHRL E PATIENT (WNR) (M) B 2005 [id number] 2 [place] MEDICARE MEDICARE PART Sep 16, PART A [id number] BUEHRLE PATIENT (WNR) (M) A 2005 2 SRSUKI OPTUM RX PRESCRIPT RX Jul 19, THPRX [id number] [phone] BUEHR LE,M PATIENT ION 2022 26 5 ICHMAGGIE OPTUM RX PRESCRIPT RX Jul 19, THPRX [id number] [phone] BUEHR LE,M PATIENT ION 2022 [id number] 5 ICHAEL [facility] Jul 19, [facility] [id number] [phone] BUEHR LE,M PATIENT HEALTH - 2018 [id number] [facility]EL [facility] Jul 19, [facility] [id number] [phone] BUEHRL E,M PATIENT HEALTH 2017 26 9 ICHAEL PLAN [facility] Jul 19, [id number] [phone] BUEHR LE,M PATIENT HEALTH [facility] 2017 26 9 ICHAEL PLAN TIMOTHYON ORELLANA [facility] Jul 21, [facility] [id number] [phone] BUEHRL E,M PATIENT HEALTH [facility] 2014 (WNR) [id number] ICHAEL PLAN CE Y ORGANIZ [facility] Jul 19, (WNR) [id number] [phone] BUEHRL E,M PATIENT HEALTHCARE RE(WN 2018 7701 9 ICHAEL (WNR) R) WELLCARE MEDICARE MCR Jul 19, [id number] BUEHRL E PATIENT MCR (WNR) ADVANTAGE (WNR) 2021 8 4 SR, Selected Encounter This section includes the information on record at [place] for the Encounter. Date/Time Encounter Type Encounter Reason Provider Source Description Mar 05, 2022 EYE EXAM&TX OPTOMETRY ICD-10-CM H43.812 OSHINSKIE,LEA 11:30 AM ESTAB PT 1/>VST Vitreous NARD J degeneration, left eye with Provider Comments: Vitreous Degeneration (PVD),Left Eye IHE Encounter Template Text not used by VA Assessments - Encounter Diagnoses This section includes the primary and secondary diagnoses documented for the Encounter. Date/Time Primary/Secondary Diagnosis Name Provider Source Diagnosis Mar 05, 2022 PRIMARY Vitreous OSHINSKIE,GEORGIE [place] [facility] 02:36 PM degeneration, [facility] [place] [facility] left eye Mar 05, 2022 SECONDARY Diplopia OSHINSKIE,GE[place]IE [place] [facility] 02:36 PM [facility] [place] [facility] Mar 05, 2022 SECONDARY Dry eye syndrome OSHINSKIE,GE[place]IE [place] [facility] 02:36 PM of bilateral [place] [place] [facility] lacrimal glands Mar 05, 2022 SECONDARY Other secondary OSHINSKIE,[facility]N 02:36 PM cataract, left [facility] [place] [facility] eye Mar 05, 2022 SECONDARY Other secondary OSHINSKIE,GE[place]IE [place] [facility] 02:36 PM cataract, right [facility] [place] [facility] eye Mar 05, 2022 SECONDARY Presence of OSHINSKIE,GE[place]IE [place] [facility] 02:36 PM intraocular lens [facility] [place] [facility] Plan of Treatment: Future Appointments (+ 6 months) and Future Tests (+/- 45 days) The Plan of Treatment section includes future care activities for the patient from all [place] treatmentfacilities. This section includes future appointments and future orders which are active, pending orscheduled.Future Appointments This section includes appointments that were scheduled to occur 6 months from the date of the Encounter, up to a maximum of 20 appointments. The data comes from all [place] treatment facilities. Appointment Date/Time Appointment Type Appointment Facili ty Name Mar 13, 2022 10:00 AM [facility] Aug 04, 2022 09:30 AM AMBULATORY - REHAB [facility]ICINE [facility]N [facility] Aug 18, 2022 10:00 AM [facility] Aug 27, 2022 09:30 AM AMBULATORY - MEDICINE [place] [facility] [place] [facility] Social History: Smoking Status (Most current) and Tobacco Use (All prior to encounter date) This section includes the most current, and the historical, smoking and tobacco-related health factors from the [place] facility where the Encounter took place.Current Smoking Status This section includes the most current smoking, or tobacco-related health factor, from the [place] facility where the Encounter took place. Date/Time Current Smoking Status Comment Facility Aug 23, 2019 09:07 AM [place]-TOBACCO QUIT 15 YRS OR [place] [facility] [place] [facility] Tobacco Use History This section includes a history of the smoking, or tobacco- related health factors, that were collected on or before the date of the Encounter. The data comes from the [place] facility where the Encounter took place. Date/Time Smoking Status/Tobacco Use Comment [facility] Aug 23, 2019 09:07 AM VA-TOBACCO QUIT 15 YRS OR [place] [facility] [place] [facility] Jun 28, 2018 10:50 AM VA-TOBACCO FORMER USER [place] [facility] [place] [facility] Jun 28, 2018 10:50 AM VA-TOBACCO QUIT 15 YRS OR [facility] [place] [facility] Oct 14, 2017 09:20 AM QUIT TOBACCO USE > 7 YEARS [facility] [place] [facility] Oct 05, 2016 01:02 PM QUIT TOBACCO USE > 7 YEARS [place] [facility] [place] [facility] Encounter Notes: All associated encounter notes This section contains the clinical notes associated to the Encounter. Date/Time Encounter Note(s) Provider Source Mar 05, 2022 11:23 OPTOMETRY NOTE: VIVI DECKER [place] [facility] TITLE: OPTOMETRY NOTE [facility] STANDARD TITLE: OPTOMETRY NOTE DATE OF NOTE: MAR 05, 2022@11:23 ENTRY DATE: MAR 05, 2022@11:23:56 AUTHOR: MAIKEL WANG EXP COSIGNER: VIVI SCHNEIDER URGENCY: STATUS: COMPLETED OPTOMETRY NOTE Has ADDENDA Active problems - Computerized Problem List is t he source for the followin. Benign Prostatic Hypertrophy without Outflow Obstruction ([facility] [id number]) 2. Lumbosacral radiculopathy 3. Multiple renal cysts 4. Benign essential hypertension 5. Toxic polyneuropathy 6. Sleep apnea 7. Hepatitis C 8. H/O: osteoarthritis 9. Atrial fibrillation 10. Seizure disorder 11. Cerebral atrophy 12. Cognitive disorder Active Outpatient Medications (including Supplie s): Active Outpatient Medications Status 1) OLOPATADINE HCL 0.1% OPH SOLN INSTILL 1 DROP INTO ACTIVE EACH EYE TWICE DAILY Active Non-VA Medications Status 1) Non-VA ACETAMINOPHEN [...] Non-VA RIVAROXABAN 20MG TAB 20MG BY MOUTH HLAIMA LY ACTIVE 6 Total Medications Allergies: VICODIN, CODEINE, PIROXICAM All medications including th ose prescribed by outside VA's, community providers, and all OTC meds were review ed and reconciled with patient to the best of their abilities. This 81 year old MALE is seen today for problem focused vist f/u w/ DFE for symptomatic PVD OS Chief Complaint: OD seems to lose focus sometimes with gl asses on at near lasting a few seconds then closes eyes or blinks and then it is fine. Eyes are still itching but better with the patanol. Interested in trying AT . Flashes and floaters still present from what he reported in January 2022 but n o large increase OHx: pseudophakia OU asymmetric cupping OS>OD previously reported 4 episodes of diplopia x <1 min 05/2020 sees a neurologist in community - had at least o ne mini stroke (-) Pain: (-) LLANOS: (-) Diplopia: (+) Flashes:Left eye superio rly, occassionally happens when he's reading, onset about 3 months ago. (-) Floaters: (-) Amaurosis Fugax/Tia's: (-) Eye Injury: (-) Eye Surgery: (-) TBI FOHx: (-) Glaucoma/ARMD/Blindness (-) Smoker/Length of Time/PPD: Current Rx with last BCVA: OD +2.25 -2.00 x 105 1PD BRANDI 20/20 OS +1.25 -2.75 x 080 1PD BRANDI 20/20 Add: +2.25 DVA ( )sc ( x )cc OD: 20/20 OS: 20/20 Pupils: PERRL (-)APD EOMs: SAFE OU, (-)Pain/Diplopia CVF (facial, peripheral): FTFC OU All the above pe rformed by student, reviewed by attending Anterior segment: Performed by student, repeated by attending Lids: dermatochalasis, MGD OU Conj: white and quiet OU Cornea: arcus, diffuse SPK OU AC: open OU Iris: flat and clear OU Lens: PCIOL cntered and clear OU, +1 PCO OD, tr PCO OS Tonometry: Performed by student, reviewed by attending OD 15 mmHg OS 15 mmHg Time:11:40 am Fundus exam: Dilated: xx @ 11:41 am Non dilated: Dilating Drops: 1GTT 1 % Tropicamide OU & 1GTT 2 .5% Phenylephrine OU (Pt. ed. on side effects, dilation warning given and verbal consent obtained) Patient advised not to drive if they feel they h ave any symptoms which could affect their ability to drive safely. Patient ad vised not to engage in any activities which could put themselves or others at risk if they feel they have any symptoms which could affect their ability to perform those activities safely. 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 Plan: 1.Pt educated and understands signs/sx of RD and to RTC immediately if any changes are notice. Monitor at CEE no signs of retinal tears or detachemnt 360. 2.Pt educated and understands. Advised to contin ue using pantanol bid OU in addition to Artificial tears qid OU now but not within 15 mins of each other. 3.Pt educated and understands. Monitor at CEE 4.Pt educated and understands,continue using cur rent Rx. 5.Pt educated and understand s. RTC if changes noticed or artifical tears do not help intermitten blur. Monitor at CEE. Not addressed today : -Refractive error -Large physiological cupping Return to Clinic 12 mo for CEE or earlier PRN Medication Reconciliation: Outpatient: Has the patient been taking medications as docu mented in the EMLR? YES: The patient has been taking medications as documented in the EMLR. Essential Medication List for Review used to co mplete this medication reconciliation. INCLUDED IN THIS LIST: Alphabetical list of act jessica outpatient prescriptions dispensed from this VA (local) an d dispensed from another [place] or [facility] facility (remote) as well as inpatien t orders (local, pending and active), local clinic medications, locally documented non-VA medications, and local prescriptions that have or been discontinued in the past 90 days. - All changes in medications, including all non -VA/Herbal/OTC medications were entered into CPRS. - If there were any medications the patient donald uld no longer take, they were discontinued. - The patient/caregiver was instructed to updat e this list, discard old lists, and take this list to the next appointme nt, whether with a VA or non-VA provider. /alba/ Vivi Decker OD Fee Basis Wood Inspector Signed: 03/05/2022 14:36 for DEIDRE WANG OPTOMETRY STUDENT /filippo Decker OD Fee Basis Wood Inspector Cosigned: 03/05/2022 14:36 03/05/2022 ADDENDUM STATUS: COMPLETED I reviewed all findings with the speedboat operator. I perfo rmed the slit lamp exam and dilated fundus exam. Has PVD but no signs of ret inal breaks OU. Progress note reviewed and edited as needed. I establi shed the plan of care and educated the patient about his conditions. /filippo Decker OD Fee Basis Wood Inspector Signed: 03/05/2022 14:37
--- OUTSIDE RECORDS SUMMARY | 2022-10-07 18:43 | XMS_ITS | Encounter Summary ---
:1940 Author Organization [facility] rs Address [address] [place] [address] Support Name Relationship Address Phone LINDEN PARDO Unavailable [address] [place] [address] LINDEN PARDO Unavailable [address] [place] [address] OLENANOBLE Unavailable 24 [facility] [place] [address] Insurance Providers: All historical and current Section [...] Telephone Name to Policy Number Cherry DANGELO PRESCRIPT [id number] Jul 19, [id number] [phone] Rayne HILLMAN PATIENT ION 1 2017 26 1 SHELLEY PIERSON PRESCRIPT [id number] Jul 19, [id number] [phone] Rayne HILLMAN PATIENT ION 1 2017 [id number] 3 SHELLEY MEDICARE MEDICARE PART Sep 16, PART B [id number] BUEHRL E PATIENT (WNR) (M) B 2005A [place] MEDICARE MEDICARE PART Sep 16, PART A [id number] BUEHRL E PATIENT (WNR) (M) A 2005A [place] MEDICARE MEDICARE PART Sep 16, PART B [id number] BUEHRL E PATIENT (WNR) (M) B 2005 [id number] [place] MEDICARE MEDICARE PART Sep 16, PART A [id number] BUEHRL E PATIENT (WNR) (M) A 2005 [id number] 2 [place] MEDICARE MEDICARE PART Sep 16, PART B [id number] BUEHRL E PATIENT (WNR) (M) B 2005 [id number] 2 [place] MEDICARE MEDICARE PART Sep 16, PART A [id number] BUEHRLE PATIENT (WNR) (M) A 2005 2 SRSUKI OPTUM RX PRESCRIPT RX Jul 19, THPRX [id number] [phone] BUEHR LE,M PATIENT ION 2022 26 5 ICHMAGGIE OPTUM RX PRESCRIPT RX Jul 19, THPRX [id number] [phone] BUEHR LE,M PATIENT ION 2022 [id number] 5 ICHAEL [facility] Jul 19, [id number] [phone] BUEHR LE,M PATIENT HEALTH - 2018 [id number] ICHAEL [facility] Jul 19, [facility] [id number] [phone] BUEHRL E,M PATIENT HEALTH 2017 26 9 ICHAEL PLAN [facility] Jul 19, [id number] [phone] BUEHR LE,M PATIENT HEALTH [facility] 2017 26 9 ICHAEL PLAN [facility] Jul 21, [id number] [phone] BUEHRL E,M PATIENT HEALTH [facility] FAM[facility] 2014 (WNR) [id number] ICHAEL PLAN CE Y ORGANIZ [facility] Jul 19, (WNR) [id number] [phone] BUEHRL E,M PATIENT HEALTHCARE RE(WN 2018 7701 9 ICHAEL (WNR) R) WELLCARE MEDICARE MCR Jul 19, [id number] BUEHRL E PATIENT MCR (WNR) ADVANTAGE (WNR) 2021 8 4 SR, Selected Encounter This section includes the information on record at [place] for the Encounter. Date/Time Encounter Type Encounter Reason Provider Source Description Feb 10, 2022 HEARING AID AUDIOLOGY ICD-10-CM H90.3 DANNY CALLE 10:00 AM REPAIR/MODIFYIN Sensorineural MEERA G hearing loss, bilateral with Provider Comments: Sensorineural Hearing Loss, Bilateral IHE Encounter Template Text not used by [place] Assessments - Encounter Diagnoses This section includes the primary and secondary diagnoses documented for the Encounter. Date/Time Primary/Secondary Diagnosis Name Provider Source Diagnosis Feb 10, 2022 PRIMARY Sensorineural DANNY CALLE [facility] N 11:53 AM hearing loss, [facility] bilateral Feb 10, 2022 SECONDARY Encounter for DANNY CALLE [facility] N 11:53 AM fitting and MEERA [facility] adjustment of hearing aid Plan of Treatment: Future Appointments (+ 6 months) and Future Tests (+/- 45 days) The Plan of Treatment section includes [facility] care [facility] the [facility] [place] [facility] This section includes future appointments and future orders which are active, pending orscheduled.Future Appointments This section includes appointments that were scheduled to occur 6 months from the date of the Encounter, up to a maximum of 20 appointments. The data comes from all [place] treatment facilities. Appointment Date/Time Appointment Type Appointment Facili ty Name Mar 05, 2022 11:30 AM AMBULATORY - MEDICINE [facility] Mar 13, 2022 10:00 AM AMBULATORY MEDICINE [facility] Aug 04, 2022 09:30 AM AMBULATORY - REHAB MEDICINE [facility] Social History: Smoking Status (Most current) and Tobacco Use (All prior to encounter date) This section includes the most current, and the historical, smoking and tobacco-related health factors from the [place] facility where the Encounter took place.Current Smoking Status This section includes the most current smoking, or tobacco-related health factor, from the [place] facility where the Encounter took place. Date/Time Current Smoking Status Comment Facility Aug 23[facility] 2019 09:07 [facility] Tobacco Use History This section includes a history of the smoking, or tobacco- related health factors, that were collected on or before the date of the Encounter. The data comes from the [place] facility where the Encounter took place. Date/Time Smoking Status/Tobacco Use Comment [facility] Aug 23, 2019 09:07 AM VA-TOBACCO QUIT 15 YRS OR [facility] [place] [facility] Jun 28, 2018 10:50 AM VA-TOBACCO FORMER USER [facility] [place] [facility] Jun 28, 2018 10:50 AM VA-TOBACCO QUIT 15 YRS OR [facility] [place] [facility] Oct 14, 2017 09:20 AM QUIT TOBACCO USE > 7 YEARS [facility] [place] [facility] Oct 05, 2016 01:02 PM QUIT TOBACCO USE > 7 YEARS [place] [facility] [place] [facility] Encounter Notes: All associated encounter notes This section contains the clinical notes associated to the Encounter. Date/Time Encounter Note(s) Provider Source Feb 10, 2022 07:14 AUDIOLOGY E & M NOTE: DANNY CALLE [facility] LOCAL TITLE: [facility]UDIOLOGY [facility] STANDARD TITLE: AUDIOLOGY E & M NOTE DATE OF NOTE: FEB 10, 2022@07:14 ENTRY DATE: FEB 10, 2022@07:14:23 AUTHOR: DANNY CALLE EXP COSIGNER: URGENCY: STATUS: COMPLETED Dx CODE: H90.3-Sensorineural Hearing Loss, Bilat eral; Z46.1- Encounter for Fitting/Adjusting Hearing Aid(s) APPOINTMENT TYPE: Hearing Re-Evaluation and Hear ing Aid Programming BACKGROUND/HISTORY: was seen 02/10/22 for a hearing re-evaluation and hearing aid programming appointment, accompanied by his daughter. He was fit with Roland Pica sso ITCs on 10/09/20. His last hearing evaluation was on 06/04/20 and he believes his hearing has decl ined since then, as he has increased difficulty in daily conversation. He d enies changes in tinnitus or vertigo. reports intermittent left ear pain that stopped two days ago. He states he saw his PCP who referred him to Audiology. He states it felt like a ball was moving around in his ear . Medical history includes: Active problems - Computerized Problem List is t he source for the followin. Benign Prostatic Hypertrophy without Outflow Obstruction ([facility] [id number]) 2. Lumbosacral radiculopathy 3. Multiple renal cysts 4. Benign essential hypertension 5. Toxic polyneuropathy 6. Sleep apnea 7. Hepatitis C 8. H/O: osteoarthritis 9. Atrial fibrillation 10. Seizure disorder 11. Cerebral atrophy 12. Cognitive disorder ASSESMENT: Results of today's testing are as follows: Otoscopy was WNL bilaterally . Normal tympanogram obtained in the right ear. Type C, negative pressure, obtained in the left ear. Pure tone audiometric testing under headphones r evealed a mild sloping to profound SNHL in both ears. SRT WORD RECOGNITION (Recorded [place] C[facility] 1/2 Word List) Right 35dBHL 80% @ 80dBHL/45dBm Left 35dBHL 88% @ 80dBHL/45dBm No significant changes were found when compared to the 06/04/20 audiological evaluation. HEARING AID CHECK: Both hearing aids were cleaned and checked, and found to be in good working order. Microphone covers and wax guards were ani nged. HEARING AID PROGRAMMING: A recalculation was done to today's hearing thre sholds. The patient liked the sound quality in office. He will try out the new settings and return as needed. EDUCATION/COUNSELING: The patient and daughter counseled re: today's h earing test results. They demonstrated satisfactory understanding of the e ducation and plan, and were given the opportunity to ask questions throughou t today's visit. Considering normal otoscopy and that the left ea r pain stopped, no further action is warranted at this time. Pyote will contact ENT should left ear pain return. PLAN: 1. Follow-up for hearing aid programming as need ed. 2. Hearing re-evaluation in 2-3 years, or sooner if change in hearing occurs. Patient Education Education provided on the following topics: Hear ing test results Education provided to: P, F Response to Education: VU Higuera Patient P Family F Significant Other SO Verbalizes Understanding VU Returns Demonstration RD Performs Independently PI Lacks Comprehension LC Refused Education RE Not Applicable NA /alba/ JAIRO CUEVAS STAFF MOBILE SECURITY ARCHITECT Signed: 02/10/2022 11:53
--- OUTSIDE RECORDS SUMMARY | 2022-10-07 18:43 | XMS_ITS | Encounter Summary ---
:1940 Author Organization [facility] rs Address [address] [place] [address] Support Name Relationship Address Phone LINDEN PARDO Unavailable [address] [place] [address] LINDEN PARDO Unavailable [address] [place] [address] OLENA, NOBLE Unavailable 24 [facility] [place] [address] Insurance Providers: All historical and current Section [...] Number Cherry DANGELO PRESCRIPT [id number] Jul 19, [id number] [phone] Rayne HILLMAN PATIENT ION 1 2017 26 1 SHELLEY PIERSON PRESCRIPT [id number] Jul 19, [id number] [phone] Rayne HILLMAN PATIENT ION 1 2017 [id number] 3 SHELLEY MEDICARE MEDICARE PART Sep 16, PART B [id number] BUEHRL E PATIENT (WNR) (M) B 2005A [place] MEDICARE MEDICARE PART Sep 16, PART A [id number] [id number] BUEHRL E PATIENT (WNR) (M) A 2005A [place] MEDICARE MEDICARE PART Sep 16, PART B [id number] BUEHRL E PATIENT (WNR) (M) B 2005 [id number] [place] MEDICARE MEDICARE PART Sep 16, PART A [id number] BUEHRL E PATIENT (WNR) (M) A 2005 AH82 2 [place] MEDICARE MEDICARE PART Sep 16, PART B [id number] BUEHRL E PATIENT (WNR) (M) B 2005 [id number] 2 [place] MEDICARE MEDICARE PART Sep 16, PART A [id number] BUEHRLE PATIENT (WNR) (M) A 2005 2 SRSUKI OPTUM RX PRESCRIPT RX Jul 19, THPRX [id number] [phone] BUEHR LE,M PATIENT ION 2022 26 5 ICHMAGGIE OPTUM RX PRESCRIPT RX Jul 19, THPRX [id number] [phone] BUEHR LE,M PATIENT ION 2022 [id number] 5 ICHAEL [facility] Jul 19, [id number] [phone] BUEHR LE,M PATIENT HEALTH - 2018 [id number] 48 [facility]EL [facility] Jul 19, [facility] [id number] [phone] BUEHRL E,M PATIENT HEALTH 2017 26 9 ICHAEL PLAN [facility] Jul 19, [id number] [phone] BUEHR LE,M PATIENT HEALTH [facility] 2017 26 9 ICHAEL [facility] Jul 21, [id number] [phone] BUEHRL E,M PATIENT HEALTH [facility] FAMIL 2014 (WNR) [id number] ICHAEL PLAN [facility] Jul 19, (WNR) [id number] [phone] BUEHRL E,M PATIENT HEALTHCARE RE(WN 2018 7701 9 ICHAEL (WNR) R) WELLCARE MEDICARE MCR Jul 19, [id number] BUEHRL E PATIENT MCR (WNR) ADVANTAGE (WNR) 2021 8 4 SR, Selected Encounter This section includes the information on record at [place] for the Encounter. Date/Time Encounter Type Encounter Reason Provider Source Description December 09, 2021 HEARING AID AUDIOLOGY ICD-10-CM Z46.1 GEMMA ANN 09:00 AM REPAIR/MODIFYIN Encounter for E G fitting and adjustment of hearing aid with Provider Comments: Encounter for Fitting and Adjustment of Hearing Aid IHE Encounter Template Text not used by [place] Assessments - Encounter Diagnoses This section includes the primary and secondary diagnoses documented for the Encounter. Date/Time Primary/Secondary Diagnosis Name Provider Source Diagnosis December 09, 2021 PRIMARY Encounter for GEMMA ANN [facility] N 09:15 AM fitting and [place] [facility] adjustment of hearing aid December 09, 2021 SECONDARY Sensorineural GEMMA ANN [facility] N 09:15 AM hearing loss, E [place] [facility] bilateral Plan of Treatment: Future Appointments (+ 6 months) and Future Tests (+/- 45 days) The Plan of Treatment section includes future care activities for the patient from all [place] treatmentfacilities. This section includes future appointments and future orders which are active, pending orscheduled.Future Appointments This section includes appointments that were scheduled to occur 6 months from the date of the Encounter, up to a maximum of 20 appointments. The data comes from all [place] treatment facilities. Appointment Date/Time Appointment Type Appointment Facili ty Name Jan 26, 2022 02:00 PM [facility] Feb 10, 2022 10:00 AM AMBULATORY - REHAB MEDICINE [facility] Mar 05, 2022 11:30 AM [facility] Mar 13, 2022 10:00 AM AMBULATORY MEDICINE [facility] Social History: Smoking Status (Most current) and Tobacco Use (All prior to encounter date) This section includes the most current, and the historical, smoking and tobacco-related health factors from the [place] facility where the Encounter took place.Current Smoking Status This section includes the most current smoking, or tobacco-related health factor, from the [place] facility where the Encounter took place. Date/Time Current Smoking Status Comment Facility Aug 23, 2019 09:07 AM [facility] Tobacco Use History This section includes a history of the smoking, or tobacco- related health factors, that were collected on or before the date of the Encounter. The data comes from the [place] facility where the Encounter took place. Date/Time Smoking Status/Tobacco Use Comment Facil ity Aug 23, 2019 09:07 AM VA-TOBACCO QUIT 15 YRS OR [facility] [place] [facility] Jun 28, 2018 10:50 AM VA-TOBACCO FORMER USER [facility] [place] [facility] Jun 28, 2018 10:50 AM VA-TOBACCO QUIT 15 YRS OR [facility] [place] [facility] Oct 14, 2017 09:20 AM QUIT TOBACCO USE > 7 YEARS [facility] [place] [facility] Oct 05, 2016 01:02 PM QUIT TOBACCO USE > 7 YEARS [facility] [place] [facility] Encounter Notes: All associated encounter notes This section contains the clinical notes associated to the Encounter. Date/Time Encounter Note(s) Provider Source December 09, 2021 08:41 AM AUDIOLOGY E & M NOTE: GEMMA ANN [facility] NTRL WSTRN LOCAL TITLE: AUDIOLOGY CLINIC [facility] STANDARD TITLE: AUDIOLOGY E & M NOTE DATE OF NOTE: DECEMBER 09, 2021@08:41 ENTRY DATE: DECEMBER 09, 2021@08:41:04 AUTHOR: GEMMA ANN EXP COSIGNER: URGENCY: STATUS: COMPLETED AUDIOLOGY CLINIC Has ADDENDA has a history of bilateral sensorineural hearing loss. He was seen on 12-09-21 for h earing aid follow up regarding his Roland ITCs. He reports he hears well with t hem but has occasional feedback and some itchiness. He asks about smaller aids, these are out of tri al. Otoscopy was WNLs, AU with minimal cerumen. Expl ained limitations of CICs and normal/expected feedback. Nitish th aids were cleaned and checked. Don covers and wax guards were replaced. Sound check was positive. Gain for soft mid frequencies was reduced by one step and average gain in the range was increased by 1. Recommended addressing itchy ears with PCP. [place] will contact the clinic as needed. /Garry Barba, [facility] STAFF INCOME TAX ANALYST Signed: 12/09/2021 09:19 01/13/2022 ADDENDUM STATUS: COMPLETED contacted the clinic with reports that h is hearing has decreased gradually. He would like to schedule a hearing evaluation, scheduled for 02/10 at 10:00am with Dr. Gibbs. 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 advis ed to contact removing physician's office ([facility]) re: intermittent left ear pain. reported understanding and notes he will contact them today. /alba/ Ricardo Murrell, [facility] Stereo Map Plotter Operator Signed: 01/13/2022 10:53 Receipt Acknowledged By: * AWAITING SIGNATURE * PREETHI MAXWELL
--- OUTSIDE RECORDS SUMMARY | 2022-10-07 18:44 | XMS_ITS | Encounter Summary ---
:1940 Author Organization [facility] Address [address] [place] [address] Support Name Relationship Address Phone LINDEN PARDO Unavailable [address] [place] [address] LINDEN PARDO Unavailable [address] [place] [address] OLENA, NOBLE Unavailable [address] [facility] [place] [address] Insurance Providers: All historical and current Section [...] Number Cherry DANGELO ARREOLAT [id number] Jul 19, [id number] [phone] Rayne HILLMAN PATIENT ION 1 2017 26 1 SHELLEY PIERSON PRESCRIPT [id number] Jul 19, [id number] [phone] Rayne HILLMAN PATIENT ION 1 2017 [id number] 3 SHELLEY MEDICARE MEDICARE PART Sep 16, PART B [id number] BUEHRL E PATIENT (WNR) (M) B 2005A [place] MEDICARE MEDICARE PART Sep 16, PART A [id number] BUEHRL E PATIENT (WNR) (M) A 2005A [place] MEDICARE MEDICARE PART Sep 16, PART B [id number] BUEHRL E PATIENT (WNR) (M) B 2005 [id number] [place] MEDICARE MEDICARE PART Sep 16, PART A [id number] BUEHRL E PATIENT (WNR) (M) A 2005 AH82 2 [place] MEDICARE MEDICARE PART Sep 16, PART B [id number] BUEHRL E PATIENT (WNR) (M) B 2005 [id number] 2 [place] MEDICARE MEDICARE PART Sep 16, PART A [id number] BUEHRLE PATIENT (WNR) (M) A 2005 2 SRSUKI OPTUM RX PRESCRIPT RX Jul 19, THPRX [id number] [phone] BUEHR LE,M PATIENT ION 2022 26 5 ICHMAGGIE OPTUM RX PRESCRIPT RX Jul 19, THPRX [id number] [phone] BUEHR LE,M PATIENT ION 2022 7701 5 ICHAEL [facility] Jul 19, [id number] [phone] BUEHR LE,M PATIENT HEALTH - 2018 7701 48 [facility]EL [facility] Jul [facility], [facility] [id number] [phone] BUEHRL E,M PATIENT HEALTH 2017 26 9 ICHAEL PLAN [facility] Jul 19, [id number] [phone] BUEHR LE,M PATIENT HEALTH [facility] 2017 26 9 ICHAEL PLAN TIMOTHYON [facility] Jul 21, [id number] [phone] BUEHRL E,M PATIENT HEALTH [facility] FAMIL 2014 (WNR) [id number] ICHAEL PLAN CE [facility]GANIZ [facility] Jul 19, (WNR) [id number] [phone] BUEHRL E,M PATIENT HEALTHCARE RE(WN 2018 7701 9 ICHAEL (WNR) R) WELLCARE MEDICARE MCR Jul 19, [id number] BUEHRL E PATIENT MCR (WNR) ADVANTAGE (WNR) 2021 8 4 SR, Selected Encounter This section includes the information on record at [place] for the Encounter. Date/Time Encounter Type Encounter Description Reason Provider Source Mar 11, 2022 09:54 Outpatient Encounter OPTOMETRY AM IHE Encounter Template Text not used by [place] Plan of Treatment: Future Appointments (+ 6 months) and Future Tests (+/- 45 days) The Plan of Treatment section includes future care activities for the patient from all [place] [facility]. This section includes future appointments and future orders which are active, pending orscheduled.Future Appointments This section includes appointments that were scheduled to occur 6 months from the date of the Encounter, up to a maximum of 20 appointments. The data comes from all [place] treatment facilities. Appointment Date/Time Appointment Type Appointment Facili ty Name Mar 13, 2022 10:00 AM AMBULATORY - MEDICINE [place] [facility] [place] [facility] Aug 04, 2022 09:30 AM AMBULATORY - REHAB MEDICINE [place] [facility] [place] [facility] Aug 18, 2022 10:00 AM AMBULATORY MEDICINE [place] [facility] [place] [facility] Aug 27, 2022 09:30 AM AMBULATORY MEDICINE [facility] W[facility]N [facility] Social History: Smoking Status (Most current) and Tobacco Use (All prior to encounter date) This section includes the most current, and the historical, smoking and tobacco-related health factors from the [place] facility where the Encounter took place.Current Smoking Status This section includes the most current smoking, or tobacco-related health factor, from the [place] facility where the Encounter took place. Date/Time Current Smoking Status Comment Facility Aug 23, 2019 09:07 AM [place]-TOBACCO QUIT 15 YRS OR [place] [facility] [place] [place] [facility] Tobacco Use History This section includes a history of the smoking, or tobacco- related health factors, that were collected on or before the date of the Encounter. The data comes from the [place] facility where the Encounter took place. Date/Time Smoking Status/Tobacco Use Comment [facility] Aug 23, 2019 09:07 AM VA-TOBACCO QUIT 15 YRS OR [facility] [place] [facility] Jun 28, 2018 10:50 AM VA-TOBACCO FORMER USER [place] [facility] [place] [facility] Jun 28, 2018 10:50 AM VA-TOBACCO QUIT 15 YRS OR [facility] [place] [facility] Oct 14, 2017 09:20 AM QUIT TOBACCO USE > 7 YEARS [place] [facility] [place] [place] [facility] Oct 05, 2016 01:02 PM QUIT TOBACCO USE > 7 YEARS [place] [facility] [place] [facility] Encounter Notes: All associated encounter notes This section contains the clinical notes associated to the Encounter. Date/Time Encounter Note(s) Provider Source Mar 11, 2022 09:54 TELEPHONE ENCOUNTER NOTE: LEONARDO OLMEDO [facility] WSTRN AM LOCAL TITLE: TELEPHONE NOTE/SPECIALTY CLINIC [place] [facility] STANDARD TITLE: TELEPHONE ENCOUNTER NOTE DATE OF NOTE: MAR 11, 2022@09:54 ENTRY DATE: MAR 11, 2022@09:54:33 AUTHOR: LEONARDO OLMEDO EXP COSIGNER: URGENCY: STATUS: COMPLETED TELEPHONE NOTE/SPECIALTY CLINIC Has ADDENDA Vet called stating that he w anted provider to know that experienced a curtain effect in his left eye. /alba/ LEONARDO OLMEDO ADVANCED MOBILE HOME SERVICER Signed: 03/11/2022 09:56 Receipt Acknowledged By: 03/11/2022 12:32 /alba/ Ronnie Guadarrama OD CHIEF OF OPTOMETRY for VIVI WARNER 03/11/2022 ADDENDUM STATUS: COMPLETED No answer left generic voicemail message /alba/ Ronnie Guadarrama OD CHIEF OF OPTOMETRY Signed: 03/11/2022 11:38 03/11/2022 ADDENDUM STATUS: COMPLETED just call in stated he is returning call to /alba/ PIYUSH HENDRICKSON Signed: 03/11/2022 12:10 Receipt Acknowledged By: 03/11/2022 12:15 /alba/ Ronnie Guadarrama OD CHIEF OF OPTOMETRY 03/11/2022 ADDENDUM STATUS: COMPLETED Spoke with patient now who i ndicates several days ago he experienced an episode of a semitransparent curtain coming down over the vision in his left eye which lasted for several minutes and then lifted. He h as a longstanding history of floaters right eye. Currently he denies any visu al symptoms either eye. In reviewing his medical record he has a history of previous mini stroke, hypertension as well as atrial fibrillation. He indicates he is unable to obtain transportation for to day or tomorrow but would be able to be seen Wednesday morning. Alerting Dr. Koenig who is a.m. provid er Wednesday to see if you would be able to accommodate this patient for reassessment to rule out amaurosis fugax related to comorbid vascular disease. Denies other physical symptoms suggestive amaurosis fugax related to GCA. /es/ Ronnie Guadarrama OD CHIEF OF OPTOMETRY Signed: 03/11/2022 12:31 Receipt Acknowledged By: 03/11/2022 13:01 /es/ SHALONDA KOENIG OD STAFF LEAF SIZE PICKER 03/11/2022 ADDENDUM STATUS: COMPLETED Patient may be overbooked for Wednesday morning bef ore 11 AM. /es/ SHALONDA KOENIG OD STAFF LEAF SIZE PICKER Signed: 03/11/2022 13:03 Receipt Acknowledged By: * AWAITING SIGNATURE * PIYUSH HENDRICKSON 03/11/2022 14:15 /es/ LEONARDO OLMEDO ADVANCED MOBILE HOME SERVICER 03/11/2022 ADDENDUM STATUS: COMPLETED Spoke with vet, scheduled overbook per provider for 03/13/22 at 10am. /es/ LEONARDO OLMEDO ADVANCED MOBILE HOME SERVICER Signed: 03/11/2022 14:16
--- OUTSIDE RECORDS SUMMARY | 2022-10-07 18:44 | XMS_ITS | Encounter Summary ---
:1940 Author Organization [facility] Address [address] [place] [address] Support Name Relationship Address Phone LINDEN PARDO Unavailable [address] [place] [address] LINDEN PARDO Unavailable [address] [place] [address] OLENA, NOBLE Unavailable [address] [facility] [place] [address] Insurance Providers: All historical and current Section [...] Number Cherry DANGELO ARREOLAT [id number] Jul 19, [id number] [phone] Rayne HILLMAN PATIENT ION 1 2017 26 1 SHELLEY PIERSON PRESCRIPT [id number] Jul 19, [id number] [phone] Rayne HILLMAN PATIENT ION 1 2017 [id number] 3 SHELLEY MEDICARE MEDICARE PART Sep 16, PART B [id number] BUEHRL E PATIENT (WNR) (M) B 2005A [place] MEDICARE MEDICARE PART Sep 16, PART A [id number] BUEHRL E PATIENT (WNR) (M) A 2005A [place] MEDICARE MEDICARE PART Sep 16, PART B [id number] BUEHRL E PATIENT (WNR) (M) B 2005 [id number] [place] MEDICARE MEDICARE PART Sep 16, PART A [id number] BUEHRL E PATIENT (WNR) (M) A 2005 AH82 2 [place] MEDICARE MEDICARE PART Sep 16, PART B [id number] BUEHRL E PATIENT (WNR) (M) B 2005 [id number] 2 [place] MEDICARE MEDICARE PART Sep 16, PART A [id number] BUEHRLE PATIENT (WNR) (M) A 2005 2 SRSUKI OPTUM RX PRESCRIPT RX Jul 19, THPRX [id number] [phone] BUEHR LE,M PATIENT ION 2022 26 5 ICHMAGGIE OPTUM RX PRESCRIPT RX Jul 19, THPRX [id number] [phone] BUEHR LE,M PATIENT ION 2022 [id number] 5 ICHAEL [facility] Jul 19, [id number] [phone] BUEHR LE,M PATIENT HEALTH - 2018 7701 48 [facility]EL [facility] Jul 19, [facility] [id number] [phone] BUEHRL E,M PATIENT HEALTH 2017 26 9 ICHAEL PLAN [facility] Jul 19, [id number] [phone] BUEHR LE,M PATIENT HEALTH [facility] 2017 26 9 ICHAEL PLAN TIMOTHYON ORELLANA [facility] Jul 21, [id number] BUEHRL E,M PATIENT HEALTH [facility] FAMIL 2014 (WNR) [id number] ICHAEL PLAN CE [facility] Jul 19, (WNR) [id number] [phone] BUEHRL E,M PATIENT HEALTHCARE RE(WN 2018 7701 9 ICHAEL (WNR) R) WELLCARE MEDICARE MCR Jul 19, [id number] BUEHRL E PATIENT MCR (WNR) ADVANTAGE (WNR) 2021 8 4 SR, Selected Encounter This section includes the information on record at [place] for the Encounter. Date/Time Encounter Type Encounter Description Reason Provider Source Mar 11, 2022 12:05 Outpatient Encounter OPTOMETRY PM IHE Encounter Template Text not used by [place] Plan of Treatment: Future Appointments (+ 6 months) and Future Tests (+/- 45 days) The Plan of Treatment section includes future care activities for the patient from all [place] [facility]. This section includes future appointments and future orders which are active, pending orscheduled.Future Appointments This section includes appointments that were scheduled to occur 6 months from the date of the Encounter, up to a maximum of 20 appointments. The data comes from all [place] treatment facilities. Appointment Date/Time Appointment Type Appointment Facili ty Name Mar 13, 2022 10:00 AM AMBULATORY - MEDICINE [place] [facility] [place] [facility] Aug 04, 2022 09:30 AM AMBULATORY - REHAB MEDICINE [place] [facility] [place] [facility] Aug 18, 2022 10:00 AM AMBULATORY MEDICINE [place] [facility] [place] [facility] Aug 27, 2022 09:30 AM AMBULATORY MEDICINE [facility] Social History: Smoking Status (Most current) and Tobacco Use (All prior to encounter date) This section includes the most current, and the historical, smoking and tobacco-related health factors from the [place] facility where the Encounter took place.Current Smoking Status This section includes the most current smoking, or tobacco-related health factor, from the [place] facility where the Encounter took place. Date/Time Current Smoking Status Comment Facility Aug 23, 2019 09:07 AM ME-TOBACCO QUIT 15 YRS OR ME CN[facility]L [place] [facility] Tobacco Use History This section includes a history of the smoking, or tobacco- related health factors, that were collected on or before the date of the Encounter. The data comes from the [place] facility where the Encounter took place. Date/Time Smoking Status/Tobacco Use Comment [facility] Aug 23, 2019 09:07 AM VA-TOBACCO QUIT 15 YRS OR [facility] [place] [place] [facility] Jun 28, 2018 10:50 AM VA-TOBACCO FORMER USER [place] [facility] [place] [facility] Jun 28, 2018 10:50 AM VA-TOBACCO QUIT 15 YRS OR [facility] [place] [facility] Oct 14, 2017 09:20 AM QUIT TOBACCO USE > 7 YEARS [place] [place] [facility] Oct 05, 2016 01:02 PM QUIT TOBACCO USE > 7 YEARS [place] [facility] [place] [facility] Encounter Notes: All associated encounter notes This section contains the clinical notes associated to the Encounter. Date/Time Encounter Note(s) Provider Source Mar 11, 2022 12:05 PM ADMINISTRATIVE NOTE: PIYUSH HENDRICKSON CN TRL WSTRN LOCAL TITLE: ADMINISTRATIVE RECALL NOTE [facility] STANDARD TITLE: ADMINISTRATIVE NOTE DATE OF NOTE: MAR 11, 2022@12:05 ENTRY DATE: MAR 11, 2022@12:05:23 AUTHOR: PIYUSH HENDRICKSON EXP COSIGNER: URGENCY: STATUS: COMPLETED ADMINISTRATIVE RECALL NOTE Has ADDENDA RTC orders: Unable to contact patient: Attempts to contact: 1st attempt: Left voicemail 2nd attempt: Letter mailed Disposition on Mar 25, 2022 3rd attempt: 4th attempt: rtc pid 02/25/2023 letter mailed /alba/ PIYUSH HENDRICKSON Signed: 03/11/2022 12:05 03/27/2022 ADDENDUM STATUS: COMPLETED Removing rtc due to failure to respond t o mandated contact efforts /alba/ PIYUSH HENDRICKSON Signed: 03/27/2022 10:46 Mar 11, 2022 12:05 PM LETTERS: PIYUSH HENDRICKSON CNTRL W STRN LOCAL TITLE: PATIENT LETTER (B) [facility] STANDARD TITLE: LETTERS DATE OF NOTE: MAR 11, 2022@12:05 ENTRY DATE: MAR 11, 2022@12:05:56 AUTHOR: PIYUSH HENDRICKSON EXP COSIGNER: URGENCY: STATUS: COMPLETED [facility] Toll Free Number [facility] scheduling can be minesh ched at ext. [phone] [facility]- ext. [phone] [facility]- ext. [phone] [facility]- ext. [phone] MAR 11, 2022 LEONARDO JACOBO [address] [place] [id number] Dear LEONARDO JACOBO Thank you for choosing the [facility] [place] [facility] as your primary choice for health care. As a partne r in your health care, we are contacting you in writing since we have been uns uccessful in our attempts to reach you to date. We want to assure you we are doing everything possible to schedule Veterans for their [place] medical care appo intments. Our records indicate you are due for an appointm ent in optometry . If you would like to be seen, please contact [place] Call Anna gonzalez at ext. [phone] to schedule an appointment. Thank you for your service to our nation, and we look forward to hearing from you soon. Sincerely, [facility] [address] [facility] [address] [place] [address] [place] [address] [facility] [facility] [address] [facility] [address] [place] [address] [place] [address] ext. [phone] [facility] [address] [address] [place] [address] ext. [phone] [facility] [address] [place] [address] ext. [phone]
--- OUTSIDE RECORDS SUMMARY | 2022-10-07 18:45 | XMS_ITS | Encounter Summary ---
:1940 Author Organization [facility] rs Address [address] [place] [address] Support Name Relationship Address Phone LINDEN PARDO Unavailable [address] [place] [address] LINDEN PARDO Unavailable [address] [place] [address] OLENANOBLE Unavailable [address] [place] [address] Insurance Providers: All historical and current Section [...] Number Cherry DANGELO PRESCRIPT [id number] Jul 19, [id number] [phone] Rayne HILLMAN PATIENT ION 1 2017 26 1 SHELLEY PIERSON PRESCRIPT [id number] Jul 19, [id number] [phone] Rayne HILLMAN PATIENT ION 1 2017 [id number] 3 SHELLEY MEDICARE MEDICARE PART Sep 16, PART B [id number] BUEHRL E PATIENT (WNR) (M) B 2005A [place] MEDICARE MEDICARE PART Sep 16, PART A [id number] BUEHRL E PATIENT (WNR) (M) A 2005A [place] MEDICARE MEDICARE PART Sep 16, PART B [id number] BUEHRL E PATIENT (WNR) (M) B 2005 [id number] [place] MEDICARE MEDICARE PART Sep 16, PART A [id number] BUEHRL E PATIENT (WNR) (M) A 2005 AH82 2 [place] MEDICARE MEDICARE PART Sep 16, PART B [id number] BUEHRL E PATIENT (WNR) (M) B 2005 AH82 2 [place] MEDICARE MEDICARE PART Sep 16, PART A [id number] BUEHRLE PATIENT (WNR) (M) A 2005 2 SRSUKI OPTUM RX PRESCRIPT RX Jul 19, THPRX [id number] [phone] BUEHR LE,M PATIENT ION 2022 26 5 ICHMAGGIE OPTUM RX PRESCRIPT RX Jul 19, THPRX [id number] [phone] BUEHR LE,M PATIENT ION 2022 [id number] 5 ICHAEL [facility] Jul 19, [id number] [phone] BUEHR LE,M PATIENT HEALTH - 2018 [id number] 48 [facility]CHAEL [facility] Jul 19, RUST [id number] [phone] BUEHRL E,M PATIENT HEALTH 2017 26 9 ICHAEL PLAN [facility] Jul 19, [id number] [phone] BUEHR LE,M PATIENT HEALTH [facility] 2017 26 9 ICHAEL PLAN TIMOTHYON ORELLANA [facility] Jul 21, [id number] [phone] BUEHRL E,M PATIENT HEALTH [facility] FAMIL 2014 (WNR) [id number] ICHAEL PLAN CE [facility]GAN[facility] Jul 19, (WNR) [id number] [phone] BUEHRL E,M PATIENT HEALTHCARE RE(WN 2018 7701 9 ICHAEL (WNR) R) WELLCARE MEDICARE MCR Jul 19, [id number] BUEHRL E PATIENT MCR (WNR) ADVANTAGE (WNR) 2021 8 4 SR, Selected Encounter This section includes the information on record at [place] for the Encounter. Date/Time Encounter Type Encounter Reason Provider Source Description Aug 04, 2022 [facility] ICD-10-CM Z46.1 DANNY CALLE 09:30 AM HEARING DEVICE Encounter for MEERA fitting and adjustment of hearing aid with Provider Comments: Encounter for Fitting and Adjustment of Hearing Aid IHE Encounter Template Text not used by [place] Assessments - Encounter Diagnoses This section includes the primary and secondary diagnoses documented for the Encounter. Date/Time Primary/Secondary Diagnosis Name Provider Source Diagnosis Aug 04, 2022 PRIMARY Encounter for GREGORIA KAUFFMAN [facility] 10:16 AM fitting and [facility] adjustment of hearing aid Aug 04, 2022 SECONDARY Sensorineural [facility] 10:16 AM hearing loss, [facility] [place] [facility] bilateral Plan of Treatment: Future Appointments (+ 6 months) and Future Tests (+/- 45 days) The Plan of Treatment section includes future care activities for the patient from all [place] treatmentfacilities. This section includes future appointments and future orders which are active, pending orscheduled.Future Appointments This section includes appointments that were scheduled to occur 6 months from the date of the Encounter, up to a maximum of 20 appointments. The data comes from all [place] treatment facilities. Appointment Date/Time Appointment Type Appointment Facili ty Name Aug 18, 2022 10:00 AM AMBULATORY - MEDICINE [facility] Aug 27, 2022 09:30 AM AMBULATORY MEDICINE [facility] Oct 06, 2022 11:30 AM AMBULATORY MEDICINE [facility] Social History: Smoking Status (Most current) and Tobacco Use (All prior to encounter date) This section includes the most current, and the historical, smoking and tobacco-related health factors from the [place] facility where the Encounter took place.Current Smoking Status This section includes the most current smoking, or tobacco-related health factor, from the [place] facility where the Encounter took place. Date/Time Current Smoking Status Comment Facility Aug [facility] 2019 09[facility] [facility] Tobacco Use History This section includes a history of the smoking, or tobacco- related health factors, that were collected on or before the date of the Encounter. The data comes from the [place] facility where the Encounter took place. Date/Time Smoking Status/Tobacco Use Comment Facil it Aug 23, 2019 09:07 AM VA-TOBACCO QUIT 15 YRS OR [facility] [place] [facility] Jun 28, 2018 10:50 AM VA-TOBACCO FORMER USER [facility] [place] [facility] Jun 28, 2018 10:50 AM VA-TOBACCO QUIT 15 YRS OR [facility] [place] [facility] Oct 14, 2017 09:20 AM QUIT TOBACCO USE > 7 YEARS [facility] [place] [facility] Oct 05, 2016 01:02 PM QUIT TOBACCO USE > 7 YEARS [facility] [place] [facility] [facility] Encounter Notes: All associated encounter notes This section contains the clinical notes associated to the Encounter. Date/Time Encounter Note(s) Provider Source Aug 04, 2022 07:37 AM AUDIOLOGY NOTE: GREGORIA KAUFFMAN [place] [facility] [place] [facility] LOCAL TITLE: AUDIOLOGY [facility] STANDARD TITLE: AUDIOLOGY NOTE DATE OF NOTE: AUG 04, 2022@07:37 ENTRY DATE: AUG 04, 2022@07:37:42 AUTHOR: GREGORIA KAUFFMAN EXP COSIGNER: RAPHAEL CALLE URGENCY: STATUS: COMPLETED AUDIOLOGY [facility] Has ADDENDA Atwood was seen today, August 04, 2022 for hearing aid problems/maintenance. SENSORINEURAL HEARING LOSS, BILATERAL Hearing Aid(s): Roland Bernal ITCs Date Issued: 10/09/2020 Atwood requested: [X]Hearing aid maintenance [X]Excessive battery drain- LEFT Atwood hears the low battery indicator daily. Action Taken: [X]Cleaned and checked hearing aids [X]Cleaned receivers [X]Replaced microphone covers [X]Replaced wax guards [X]Replaced batteries Bilateral sound check was positive. [X]Left hearing aid was sent in for repair. Once the repaired hearing aid has been received by the clinic, please restore and mail to the address on file. Plan: [X] to call prn [X]Once the repaired hearing aid has been received by the clinic, please restore and mail to the address on file. /alba/ GREGORIA KAUFFMAN AUDIOLOGY HEALTH MUSIC HISTORIAN Signed: 08/04/2022 10:17 /alba/ JAIRO CUEVAS STAFF MANAGER AMBULATORY Cosigned: 08/04/2022 10:59 08/07/2022 ADDENDUM STATUS: COMPLETED Left repaired hearing aid recieved and certified in ALBA. Programmed to last ERIC session and mailed to Atwood's address on file. /alba/ JAIRO HAYDEN, CCC-A STAFF MANAGER AMBULATORY Signed: 08/07/2022 17:05
--- OUTSIDE RECORDS SUMMARY | 2022-10-07 18:45 | XMS_ITS | Encounter Summary ---
:1940 Author Organization [facility] rs Address [address] [place] [id number] Support Name Relationship Address Phone LINDEN PARDO Unavailable [address] [place] [address] LINDEN PARDO Unavailable [address] [place] [address] OLENANOBLE Unavailable 24 [facility] [place] [address] Insurance Providers: All historical and current Section [...] Number Cherry DANGELO ARREOLAT [id number] Jul 19, [id number] [phone] Rayne HILLMAN PATIENT ION 1 2017 26 1 SHELLEY PIERSON PRESCRIPT [id number] Jul 19, [id number] [phone] Ryane HILLMAN PATIENT ION 1 2017 [id number] 3 SHELLEY MEDICARE MEDICARE PART Sep 16, PART B [id number] BUEHRL E PATIENT (WNR) (M) B 2005A [place] MEDICARE MEDICARE PART Sep 16, PART A [id number] BUEHRL E PATIENT (WNR) (M) A 2005A [place] MEDICARE MEDICARE PART Sep 16, PART B [id number] BUEHRL E PATIENT (WNR) (M) B 2005 [id number] [place] MEDICARE MEDICARE PART Sep 16, PART A [id number] BUEHRL E PATIENT (WNR) (M) A 2005 AH82 2 [place] MEDICARE MEDICARE PART Sep 16, PART B [id number] BUEHRL E PATIENT (WNR) (M) B 2005 [id number] 2 [place] MEDICARE MEDICARE PART Sep 16, PART A [id number] BUEHRLE PATIENT (WNR) (M) A 2005 2 SRSUKI OPTUM RX PRESCRIPT RX Jul 19, THPRX [id number] [phone] BUEHR LE,M PATIENT ION 2022 26 5 ICHMAGGIE OPTUM RX PRESCRIPT RX Jul 19, THPRX [id number] [phone] BUEHR LE,M PATIENT ION 2022 [id number] 5 ICHAEL [facility] Jul 19, [id number] [phone] BUEHR LE,M PATIENT HEALTH - 2018 [id number] 48 [facility]EL [facility] Jul [facility], [facility] [id number] [phone] BUEHRL E,M PATIENT HEALTH 2017 26 9 ICHAEL PLAN [facility] Jul 19, [id number] [phone] BUEHR LE,M PATIENT HEALTH [facility] 2017 26 9 ICHAEL [facility] Jul 21, [id number] [phone] BUEHRL E,M PATIENT HEALTH [facility] FAMIL 2014 (WNR) [id number] ICHAEL PLAN [facility] Jul 19, (WNR) [id number] [phone] BUEHRL E,M PATIENT HEALTHCARE RE(WN 2018 7701 9 ICHAEL (WNR) R) WELLCARE MEDICARE MCR Jul 19, [id number] BUEHRL E PATIENT MCR (WNR) ADVANTAGE (WNR) 2021 8 4 SR, Selected Encounter This section includes the information on record at [place] for the Encounter. Date/Time Encounter Type Encounter Description Reason Provider Source May 15, 2022 03:00 Outpatient Encounter [facility] PM CONSULT IHE Encounter Template Text not used by MD Plan of Treatment: Future Appointments (+ 6 months) and Future Tests (+/- 45 days) The Plan of Treatment section includes future care activities for the patient from all [facility] This section includes future appointments and future orders which are active, pending orscheduled.Future Appointments This section includes appointments that were scheduled to occur 6 months from the date of the Encounter, up to a maximum of 20 appointments. The data comes from all [place] treatment facilities. Appointment Date/Time Appointment Type Appointment Facili ty Name Aug 04, 2022 09:30 AM AMBULATORY - REHAB MEDICINE [place] [facility] [place] [facility] Aug 18, 2022 10:00 AM AMBULATORY - MEDICINE [place] [facility] [place] [facility] Aug 27, 2022 09:30 AM AMBULATORY - MEDICINE [place] [facility] [place] [place] [facility] Oct 06, 2022 11:30 AM [facility] [place] [facility] Social History: Smoking Status (Most current) and Tobacco Use (All prior to encounter date) This section includes the most current, and the historical, smoking and tobacco-related health factors from the [place] facility where the Encounter took place.Current Smoking Status This section includes the most current smoking, or tobacco-related health factor, from the [place] facility where the Encounter took place. Date/Time Current Smoking Status Comment Facility Aug 23, 2019 09:07 AM VA-TOBACCO QUIT 15 YRS OR [facility] [place] [facility] Tobacco Use History This section includes a history of the smoking, or tobacco- related health factors, that were collected on or before the date of the Encounter. The data comes from the [place] facility where the Encounter took place. Date/Time Smoking Status/Tobacco Use Comment [facility] Aug 23, 2019 09:07 AM VA-TOBACCO QUIT 15 YRS OR [facility] [place] [facility] Jun 28, 2018 10:50 AM VA-TOBACCO FORMER USER [facility] [place] [facility] Jun 28, 2018 10:50 AM VA-TOBACCO QUIT 15 YRS OR [facility] [place] [facility] Oct 14, 2017 09:20 AM QUIT TOBACCO USE > 7 YEARS [place] [facility] [place] [facility] [facility] Oct 05, 2016 01:02 PM QUIT TOBACCO USE > 7 YEARS [facility] [place] [facility] Encounter Notes: All associated encounter notes This section contains the clinical notes associated to the Encounter. Date/Time Encounter Note(s) Provider Source May 15, 2022 03:00 PM NONVA NOTE: SEGUNDO MCFARLANE [facility] TITLE: [facility] CARE-MARITA SELF PRESENTIN G CARE COORD PLAN STANDARD TITLE: NONVA NOTE DATE OF NOTE: MAY 15, 2022@15:00 ENTRY DATE: MAY 15, 2022@15:00:46 AUTHOR: SEGUNDO MCFARLANE EXP COSIGNER: URGENCY: STATUS: COMPLETED Emergency Notification Intake Date Presenting to the Facility: Apr Method of Contact: Notified from [employer] worklist Notification ID: [id number] [facility] Referral #: [facility] Name: Hospital: [facility] Address: City: [place] State: [place] Zip Code: Phone : Community Facility Point of Contact: Name: Ana Phone: Chief complaint: Chest Pain Primary Diagnosis: Disposition Discharged Date of discharge: Apr Discharge to Comment: ER Only /alba/ SEGUNDO MALDONADO Signed: 05/15/2022 15:02 Receipt Acknowledged By: * AWAITING SIGNATURE * MILKA HAIR * AWAITING SIGNATURE * PINA MURILLO * AWAITING SIGNATURE * ANDERSON GUIDRY
--- OUTSIDE RECORDS SUMMARY | 2022-10-07 18:45 | XMS_ITS | Encounter Summary ---
:1940 Author Organization [facility] Address [address] [place] [address] Support Name Relationship Address Phone LINDEN PARDO Unavailable [address] [place] [address] LINDEN PARDO Unavailable [address] [place] [address] OLENANOBLE Unavailable 24 [facility] [address] Insurance Providers: All historical and current Section [...] Number Cherry DANGELO ARREOLAT [id number] Jul 19, [id number] [phone] Rayne HILLMAN PATIENT ION 1 2017 26 1 SHELLEY PIERSON PRESCRIPT [id number] Jul 19, [id number] [phone] Rayne HILLMAN PATIENT ION 1 2017 [id number] 3 SHELLEY MEDICARE MEDICARE PART Sep 16, PART B [id number] BUEHRL E PATIENT (WNR) (M) B 2005A [place] MEDICARE MEDICARE PART Sep 16, PART A [id number] BUEHRL E PATIENT (WNR) (M) A 2005A [place] MEDICARE MEDICARE PART Sep 16, PART B [id number] BUEHRL E PATIENT (WNR) (M) B 2005 [id number] [place] MEDICARE MEDICARE PART Sep 16, PART A [id number] BUEHRL E PATIENT (WNR) (M) A 2005 AH82 2 [place] MEDICARE MEDICARE PART Sep 16, PART B [id number] BUEHRL E PATIENT (WNR) (M) B 2005 [id number] 2 SRSUKI MEDICARE MEDICARE PART Sep 16, PART A [id number] BUEHRLE PATIENT (WNR) (M) A 2005 2 SRSUKI OPTUM RX PRESCRIPT RX Jul 19, THPRX [id number] [phone] BUEHR LE,M PATIENT ION 2022 26 5 ICHMAGGIE OPTUM RX PRESCRIPT RX Jul 19, THPRX [id number] [phone] BUEHR LE,M PATIENT ION 2022 [id number] 5 ICHAEL [facility] Jul 19, [facility] [id number] [phone] BUEHR LE,M PATIENT HEALTH - 2018 [id number] 48 ICHAEL [facility] Jul 19, [facility] [id number] [phone] BUEHRL E,M PATIENT HEALTH 2017 26 9 ICHAEL PLAN [facility] Jul 19, [id number] [phone] BUEHR LE,M PATIENT HEALTH [facility] 2017 26 9 ICHAEL PLAN TIMOTHYON ORELLANA [facility] Jul 21, [facility] [id number] [phone] BUEHRL E,M PATIENT HEALTH [facility] FAM[facility] 2014 (WNR) [id number] ICHAEL PLAN CE [facility]IZ [facility] Jul 19, (WNR) [id number] [phone] BUEHRL E,M PATIENT HEALTHCARE RE(WN 2018 7701 9 ICHAEL (WNR) R) WELLCARE MEDICARE MCR Jul 19, [id number] BUEHRL E PATIENT MCR (WNR) ADVANTAGE (WNR) 2021 8 4 SR, Selected Encounter This section includes the information on record at [place] for the Encounter. Date/Time Encounter Type Encounter Reason Provider Source Description Mar 13, 2022 EYE EXAM&TX OPTOMETRY ICD-10-CM H54.62 SHALONDA KOENIG 10:00 AM ESTAB PT 1/>VST Unqualified E visual loss, left eye, normal vision right eye with Provider Comments: Unqualified Visual Loss, left Eye, Normal Vision right Eye IHE Encounter Template Text not used by VA Assessments - Encounter Diagnoses This section includes the primary and secondary diagnoses documented for the Encounter. Date/Time Primary/Secondary Diagnosis Name Provider Source Diagnosis Mar 13, 2022 PRIMARY Unqualified SHALONDA KOENIG [facility]10 [facility] visual loss, [place] [facility] eye, normal vision right eye Plan of Treatment: Future Appointments (+ 6 months) and Future Tests (+/- 45 days) The Plan of Treatment section includes future care activities for the patient from all [place] treatmentfacilities. This section includes future appointments and future orders which are active, pending orscheduled.Future Appointments This section includes appointments that were scheduled to occur 6 months from the date of the Encounter, up to a maximum of 20 appointments. The data comes from all [place] treatment facilities. Appointment Date/Time Appointment Type Appointment Facili ty Name Aug 04, 2022 09:30 AM AMBULATORY - REHAB MEDIC[facility] Aug 18, 2022 10:00 AM [facility] Aug 27, 2022 09:30 AM [facility] Social History: Smoking Status (Most current) and Tobacco Use (All prior to encounter date) This section includes the most current, and the historical, smoking and tobacco-related health factors from the [place] facility where the Encounter took place.Current Smoking Status This section includes the most current smoking, or tobacco-related health factor, from the [place] facility where the Encounter took place. Date/Time Current Smoking Status Comment Facility Aug 23, 2019 09:07 AM [facility] Tobacco Use History This section includes a history of the smoking, or tobacco- related health factors, that were collected on or before the date of the Encounter. The data comes from the [place] facility where the Encounter took place. Date/Time Smoking Status/Tobacco Use Comment Facil ity Aug 23, 2019 09:07 AM VA-TOBACCO QUIT 15 YRS OR [facility] [place] [facility] Jun 28, 2018 10:50 AM VA-TOBACCO FORMER USER [facility] [place] [facility] Jun 28, 2018 10:50 AM VA-TOBACCO QUIT 15 YRS OR [facility] [place] [facility] Oct 14, 2017 09:20 AM QUIT TOBACCO USE > 7 YEARS [facility] [place] [facility] [facility] Oct 05, 2016 01:02 PM QUIT TOBACCO USE > 7 YEARS [facility] [place] [facility] [facility] Encounter Notes: All associated encounter notes This section contains the clinical notes associated to the Encounter. Date/Time Encounter Note(s) Provider Source Mar 13, 2022 08:08 OPTOMETRY NOTE: SHALONDA KOENIG [place] [facility] [facility] LOCAL TITLE: OPTOMETRY NOTE(T) [place] [facility] STANDARD TITLE: OPTOMETRY NOTE DATE OF NOTE: MAR 13, 2022@08:08 ENTRY DATE: MAR 13, 2022@08:08:59 AUTHOR: SHALONDA KOENIG EXP COSIGNER: URGENCY: STATUS: COMPLETED Active Problems: Active Problem Benign Prostatic Hypertrophy withou 08/01/2021 [place] SNOW Lumbosacral radiculopathy M54.16 06/15/2017 ANDERSON DEAN Multiple renal cysts N28.1 04/14/2017 CARLENE CREWS Benign essential hypertension I10. 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 10/05/2016 MALGORZATA CREWS Cognitive disorder G31.84 12/15/2016 YEN GREEN Medications (VA): Active Outpatient Medications (including Supplies): Active Outpatient Medications Status 1) CARBOXYMETHYLCELLULOSE 0.5% OPH SOLN INSTILL 1 DROP ACTIVE INTO EACH EYE FOUR TIMES A DAY 2) OLOPATADINE HCL 0.1% OPH SOLN INSTILL 1 DROP INTO ACTIVE (S) EACH EYE TWICE DAILY Active Non-VA Medications [...] TAB 20MG BY MOUTH HALIMA LY ACTIVE 7 Total Medications Allergies: VICODIN, CODEINE, PIROXICAM S: 81-year-old male who indicates that several d ays ago he experienced an episode of a semitransparent curtain coming down over the vision in his left eye which lasted for several seconds and then lifted . This happened a couple of times again in the past few days. He has had carotid artery and coronary artery studies in the past. He is seeing finished goods planner noe frankel. He has a longstanding history of floaters right eye. Curr ently he denies any other visual symptoms either eye. FELY: 03/05/2022 (-) Pain: (-) LLANOS: (+) Diplopia: Chronic intermittent (+) Flashes: Left eye superi ibrahima, occassionally happens when he's reading, onset about 3 months ago. (-) Floaters: (-) Amaurosis Fugax/Tia's: (-) Eye Injury: (-) Eye Surgery: (-) TBI O: Visual acuity with curren t correction was 20/20 both eyes. Pupils were equal and round and reactive to light with no afferent defect. Extraocular muscles were intact and facial confrontation kahn were full. Lids and lashes were clear both eyes. Corneas and conjunctiva were cl ear both eyes. Anterior chambers were deep clear and quiet with open ang les. Iris was flat both eyes. Posterior chamber lenses were in place and clear . Intraocular pressures at 10:20 AM were 16 mmHg O U. Dilating Drops: 1GTT 1 % Tro picamide OU & 1GTT 2.5% Phenylephrine OU (Pt. ed. on side effects, dilation warning given and verbal consent obtained) Fundi were viewed with 90 dpt lens and BIO. Vitreous syneresis was seen with PVD OU and larg e floaters. Approximately 50% horizontal and vertical cupping was seen OD with tilted disc and 55% OS with tilted smaller disks. No notches or hemorrhages were seen. Normal pigmentary architecture of the macula was seen with a two t hird artery to vein ratio. Retinal peripheries were int act in all quadrants with no holes breaks or tears. No Hollenhorst plaques were seen in either eye t elijah. A: Symptoms of Hollenhorst plaque per history wi thout any visualized today. 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 P: Will notify PCP of patient's C/O and my exam today. He will pursue symptoms with PCP and cardiology. Education: After discussion and answeri ng all 's questions, Ely demonstrated and verbalized understanding of diagnosis and treatm ent. Yes [x] No [ ] Medication Reconciliation: Outpatient: Has the patient been taking medications as docu mented in the EMLR? YES: The patient has been taking medications as documented in the EMLR. Essential Medication List for Review used to co mplete this medication reconciliation. INCLUDED IN THIS LIST: Alphabetical list of act jessica outpatient prescriptions dispensed from this [facility] (local) an d dispensed from another VA or DoD facility (remote) as well as inpatien t [...] with a VA or non-VA provider. /alba/ SHALONDA KOENIG OD STAFF INSIDE SALES CONSULTANT Signed: 03/13/2022 12:10 Receipt Acknowledged By: * AWAITING SIGNATURE * DALLAS CARTAGENA
--- OUTSIDE RECORDS SUMMARY | 2022-10-07 18:45 | XMS_ITS | Encounter Summary ---
:1940 Author Organization [facility] rs Address [address] [place] [address] Support Name Relationship Address Phone LINDEN PARDO Unavailable [address] [place] [address] LINDEN PARDO Unavailable [address] [place] [address] OLENANOBLE Unavailable 24 [facility] [place] [address] Insurance Providers: All historical and current Section [...] Number Cherry DANGELO ARREOLAT [id number] Jul 19, [id number] [phone] Rayne HILLMAN PATIENT ION 1 2017 26 1 SHELLEY PIERSON PRESCRIPT [id number] Jul 19, [id number] [phone] Rayne HILLMAN PATIENT ION 1 2017 [id number] 3 SHELLEY MEDICARE MEDICARE PART Sep 16, PART B [id number] BUEHRL E PATIENT (WNR) (M) B 2005A [place] MEDICARE MEDICARE PART Sep 16, PART A [id number] [id number] BUEHRL E PATIENT (WNR) (M) A 2005A [place] MEDICARE MEDICARE PART Sep 16, PART B [id number] BUEHRL E PATIENT (WNR) (M) B 2005 [id number] [place] MEDICARE MEDICARE PART Sep 16, PART A [id number] BUEHRL E PATIENT (WNR) (M) A 2005 AH82 2 [place] MEDICARE MEDICARE PART Sep 16, PART B [id number] BUEHRL E PATIENT (WNR) (M) B 2005 [id number] 2 [place] MEDICARE MEDICARE PART Sep 16, PART A [id number] BUEHRLE PATIENT (WNR) (M) A 2005 2 SRSUKI OPTUM RX PRESCRIPT RX Jul 19, THPRX [id number] [phone] BUEHR LE,M PATIENT ION 2022 26 5 ICHMAGGIE OPTUM RX PRESCRIPT RX Jul 19, THPRX [id number] [phone] BUEHR LE,M PATIENT ION 2022 [id number] 5 ICHAEL [facility] Jul 19, [id number] [phone] BUEHR LE,M PATIENT HEALTH - 2018 [id number] 48 ICHAEL [facility] Jul 19, [facility] [id number] [phone] BUEHRL E,M PATIENT HEALTH 2017 26 9 ICHAEL PLAN [facility] Jul 19, [id number] [phone] BUEHR LE,M PATIENT HEALTH [facility] 2017 26 9 ICHAEL [facility]AN [facility] Jul 21, [id number] [phone] BUEHRL E,M PATIENT HEALTH [facility] 2014 (WNR) [id number] ICHAEL PLAN CE Y ORGANIZ [facility] Jul 19, (WNR) [id number] [phone] BUEHRL E,M PATIENT HEALTHCARE RE(WN 2018 7701 9 ICHAEL (WNR) R) WELLCARE MEDICARE MCR Jul 19, [id number] [phone] BUEHRL E PATIENT MCR (WNR) ADVANTAGE (WNR) 2021 8 4 SR, Selected Encounter This section includes the information on record at [place] for the Encounter. Date/Time Encounter Type Encounter Description Reason Provider Source Mar 12, 2022 03:36 Outpatient Encounter COMMUNITY CARE PM CONSULT IHE Encounter Template Text not used by [place] Plan of Treatment: Future Appointments (+ 6 months) and Future Tests (+/- 45 days) The Plan of Treatment section includes future care activities for the patient from [facility] [place] [facility] This section includes future appointments and future orders which are active, pending orscheduled.Future Appointments This section includes appointments that were scheduled to occur 6 months from the date of the Encounter, up to a maximum of 20 appointments. The data comes from all [place] treatment facilities. Appointment Date/Time Appointment Type Appointment Facili ty Name Mar 13, 2022 10:00 AM AMBULATORY - [place]ICINE [place] [facility] [place] [facility] Aug 04, 2022 09:30 AM AMBULATORY - REH[place] MEDICINE [place] [facility] [place] [facility] Aug 18, 2022 10:00 AM AMBULATORY MEDICINE [place] [facility] [place] [facility] Aug 27, 2022 09:30 AM AMBULATORY MEDICINE [facility] Social History: Smoking Status (Most current) and Tobacco Use (All prior to encounter date) This section includes the most current, and the historical, smoking and tobacco-related health factors from the [place] facility where the Encounter took place.Current Smoking Status This section includes the most current smoking, or tobacco-related health factor, from the [place] facility where the Encounter took place. Date/Time Current Smoking Status Comment Facility Aug 23, 2019 09:07 AM [place]-TOBACCO QUIT 15 YRS OR [place] [facility] [place] [facility] Tobacco Use History This section includes a history of the smoking, or tobacco- related health factors, that were collected on or before the date of the Encounter. The data comes from the [place] facility where the Encounter took place. Date/Time Smoking Status/Tobacco Use Comment [facility] Aug 23, 2019 09:07 AM VA-TOBACCO QUIT 15 YRS OR [place] [facility] [place] [facility] Jun 28, 2018 10:50 AM VA-TOBACCO FORMER USER [place] [facility] [place] [facility] Jun 28, 2018 10:50 AM VA-TOBACCO QUIT 15 YRS OR [place] [facility] [place] [facility] Oct 14, 2017 09:20 AM QUIT TOBACCO USE > 7 YEARS [place] [facility] [place] AGO [facility] Oct 05, 2016 01:02 PM QUIT TOBACCO USE > 7 YEARS [place] [facility] [place] AGO [facility] Encounter Notes: All associated encounter notes This section contains the clinical notes associated to the Encounter. Date/Time Encounter Note(s) Provider Source Mar 12, 2022 03:36 PM NONVA NOTE: SEGUNDO MCFARLANE KIMBERLY [facility] TITLE: [facility] CARE-MARITA SELF PRESENTIN G CARE COORD PLAN STANDARD TITLE: NONVA NOTE DATE OF NOTE: MAR 12, 2022@15:36 ENTRY DATE: MAR 12, 2022@15:36:20 AUTHOR: SEGUNDO MCFARLANE EXP COSIGNER: URGENCY: STATUS: COMPLETED Emergency Notification Intake Date Presenting to the Facility: Feb Method of Contact: Notified from Guardly worklist Notification ID: [id number] [facility] Referral #: [facility] Name: Hospital: [facility] Address: City: [place] State: [place] Zip Code: Phone : Community Facility Point of Contact: Name: Ana Phone: Chief complaint: CHEST SORENESS Primary Diagnosis: Disposition Discharged Date of discharge: Feb Discharge to Comment: ER Only /alba/ SEGUNDO MALDONADO Signed: 03/12/2022 15:37 Receipt Acknowledged By: * AWAITING SIGNATURE * PINA MURILLO * AWAITING SIGNATURE * ANDERSON GUIDRY * AWAITING SIGNATURE * D[place]AS CARTAGENA * AWAITING SIGNATURE * JOAO NAVA
--- OUTSIDE RECORDS SUMMARY | 2022-10-07 18:45 | XMS_ITS | Encounter Summary ---
:1940 Author Organization [facility] Address [address] [place] [address] Support Name Relationship Address Phone LINDEN PARDO Unavailable [address] [place] [address] LINDEN PARDO Unavailable [address] [place] [address] OLENANOBLE Unavailable 24 [facility] [place] [address] Insurance Providers: All historical and current Section [...] Number Cherry DANGELO PRESCRIPT [id number] Jul 19, [id number] [phone] Rayne HILLMAN PATIENT ION 1 2017 26 1 SHELLEY PIERSON PRESCRIPT [id number] Jul 19, [id number] [phone] Rayne HILLMAN PATIENT ION 1 2017 7701 3 SHELLEY MEDICARE MEDICARE PART Sep 16, PART B [id number] BUEHRL E PATIENT (WNR) (M) B 2005A [place] MEDICARE MEDICARE PART Sep 16, PART A [id number] [phone] BUEHRL E PATIENT (WNR) (M) A 2005A [place] MEDICARE MEDICARE PART Sep 16, PART B [id number] BUEHRL E PATIENT (WNR) (M) B 2005 [id number] 00 [place] MEDICARE MEDICARE PART Sep 16, PART A [id number] BUEHRL E PATIENT (WNR) (M) A 2005 AH82 2 [place] MEDICARE MEDICARE PART Sep 16, PART B [id number] BUEHRL E PATIENT (WNR) (M) B 2005 AH82 2 [place] MEDICARE MEDICARE PART Sep 16, PART A [id number] BUEHRLE PATIENT (WNR) (M) A 2005 2 SRSUKI OPTUM RX PRESCRIPT RX Jul 19, THPRX [id number] [phone] BUEHR LE,M PATIENT ION 2022 26 5 ICHMAGGIE OPTUM RX PRESCRIPT RX Jul 19, THPRX [id number] [phone] BUEHR LE,M PATIENT ION 2022 7701 5 ICHAEL [facility] Jul 19, [id number] [phone] BUEHR LEM PATIENT HEALTH - 2018 7701 48 [facility]EL [facility] [id number] [phone] BUEHRL Nita,M PATIENT HEALTH 2017 26 9 ICHAEL PLAN [facility] Jul 19, [id number] [phone] BUEHR LE,M PATIENT HEALTH [facility] 2017 26 9 ICHAEL [facility] Jul 21, [id number] [phone] BUEHRL NitaM PATIENT HEALTH [facility] 2013 (WNR) [id number] ICHAEL PLAN CE Y ORGANIZ [facility] Jul 19, (WNR) [id number] [phone] BUEHRL E,M PATIENT HEALTHCARE RE(WN 2018 7701 9 ICHAEL (WNR) R) WELLCARE MEDICARE MCR Jul 19, [id number] BUEHRL E PATIENT MCR (WNR) ADVANTAGE (WNR) 2021 8 4 SR, Selected Encounter This section includes the information on record at [place] for the Encounter. Date/Time Encounter Type Encounter Description Reason Provider Source May 26, 2022 03:42 Outpatient Encounter TELEPHONE/REHAB AND PM SUPPORT IHE Encounter Template Text not used by [place] Plan of Treatment: Future Appointments (+ 6 months) and Future Tests (+/- 45 days) The Plan of Treatment section includes future care activities for the patient from all [place] [facility]. This section includes future appointments and future orders which are active, pending orscheduled.Future Appointments This section includes appointments that were scheduled to occur 6 months from the date of the Encounter, up to a maximum of 20 appointments. The data comes from all [place] treatment facilities. Appointment Date/Time Appointment Type Appointment Facili ty Name Aug 04, 2022 09:30 AM AMBULATORY - REHAB MEDICINE [place] [facility] [place] [facility] Aug 18, 2022 10:00 AM [facility] [place] [facility] Aug 27, 2022 09:30 AM AMBULATORY - MEDICINE [place] [facility] [place] [facility] Oct 06, 2022 11:30 AM [facility]ORY [facility] Social History: Smoking Status (Most current) and Tobacco Use (All prior to encounter date) This section includes the most current, and the historical, smoking and tobacco-related health factors from the [place] facility where the Encounter took place.Current Smoking Status This section includes the most current smoking, or tobacco-related health factor, from the [place] facility where the Encounter took place. Date/Time Current Smoking Status Comment Facility Aug 23, 2019 09:07 AM [place]-TOBACCO QUIT 15 YRS OR [place] [facility] [place] [facility] Tobacco Use History This section includes a history of the smoking, or tobacco- related health factors, that were collected on or before the date of the Encounter. The data comes from the [place] facility where the Encounter took place. Date/Time Smoking Status/Tobacco Use Comment [facility] Aug 23, 2019 09:07 AM VA-TOBACCO QUIT 15 YRS OR VA [facility] [place] [facility] Jun 28, 2018 10:50 AM VA-TOBACCO FORMER USER [place] [facility] [place] [facility] Jun 28, 2018 10:50 AM VA-TOBACCO QUIT 15 YRS OR [facility] [place] [place] [facility] Oct 14, 2017 09:20 AM QUIT TOBACCO USE > 7 YEARS [place] [facility] [place] AGO [facility] Oct 05, 2016 01:02 PM QUIT TOBACCO USE > 7 YEARS [place] [facility] [place] AGO [facility] Encounter Notes: All associated encounter notes This section contains the clinical notes associated to the Encounter. Date/Time Encounter Note(s) Provider Source May 26, 2022 03:42 PM AUDIOLOGY NOTE: FLORENCE NUNEZ [place] [facility] W STR[facility] LOCAL TITLE: AUDIOLOGY [facility] STANDARD TITLE: AUDIOLOGY NOTE DATE OF NOTE: MAY 26, 2022@15:42 ENTRY DATE: MAY 26, 2022@15:42:43 AUTHOR: FLORENCE NUNEZ EXP COSIGNER: URGENCY: STATUS: COMPLETED AUDIOLOGY [facility] Has ADDENDA Marianna called to request ad ditional pieces that go on the end in the ear canal, stated the cushioned part. Please order for vete ran or call if need further info. /alba/ FLORENCE NUNEZ Advanced Emergency Medical Service Manager Signed: 05/26/2022 15:43 Receipt Acknowledged By: 05/27/2022 07:39 /alba/ GREGORIA KAUFFMAN AUDIOLOGY [facility] 05/27/2022 ADDENDUM STATUS: COMPLETED Wax guards were ordered for the this and will be mailed via Facter[employer] to the 's address on file. /filippo KAUFFMAN AUDIOLOGY [facility] Signed: 05/27/2022 07:40 /alba/ JAIRO CUEVAS STAFF RESEARCH CHEMIST Cosigned: 05/27/2022 08:53
--- OUTSIDE RECORDS SUMMARY | 2022-10-07 18:45 | XMS_ITS | Encounter Summary ---
:1940 Author Organization [facility] rs Address [address] [place] [address] Support Name Relationship Address Phone LINDEN PARDO Unavailable [address] [place] [address] LINDEN PARDO Unavailable [address] [place] [address] OLENANOBLE Unavailable 24 [facility] [place] [address] Insurance Providers: All historical and current Section [...] Number Cherry DANGELO ARREOLAT [id number] Jul 19, [id number] [phone] Rayne HILLMAN PATIENT ION 1 2017 26 1 SHELLEY PIERSON PRESCRIPT [id number] Jul 19, [id number] [phone] Rayne HILLMAN PATIENT ION 1 2017 [id number] 3 SHELLEY MEDICARE MEDICARE PART Sep 16, PART B [id number] BUEHRL E PATIENT (WNR) (M) B 2005A [place] MEDICARE MEDICARE PART Sep 16, PART A [id number] BUEHRL E PATIENT (WNR) (M) A 2005A [place] MEDICARE MEDICARE PART Sep 16, PART B [id number] BUEHRL E PATIENT (WNR) (M) B 2005 [id number] 00 [place] MEDICARE MEDICARE PART Sep 16, PART A [id number] BUEHRL E PATIENT (WNR) (M) A 2005 AH82 2 [place] MEDICARE MEDICARE PART Sep 16, PART B [id number] BUEHRL E PATIENT (WNR) (M) B 2005 AH82 2 [place] MEDICARE MEDICARE PART Sep 16, PART A [id number] BUEHRLE PATIENT (WNR) (M) A 2005 2 SRSUKI OPTUM RX PRESCRIPT RX Jul 19, THPRX [id number] [phone] BUEHR LE,M PATIENT ION 2022 26 5 ICHMAGGIE OPTUM RX PRESCRIPT RX Jul 19, THPRX [id number] [phone] BUEHR LE,M PATIENT ION 2022 [id number] 5 ICHAEL [facility] Jul 19, [id number] [phone] BUEHR LE,M PATIENT HEALTH - 2018 [id number] 48 ICHAEL [facility] Jul 19, [facility] [id number] [phone] BUEHRL E,M PATIENT HEALTH 2017 26 9 ICHAEL PLAN [facility] Jul 19, [id number] [phone] BUEHR LE,M PATIENT HEALTH [facility] 2017 26 9 ICHAEL PLAN [facility] Jul 21, [id number] [phone] BUEHRL E,M PATIENT HEALTH [facility] FAM[facility] 2014 (WNR) [id number] ICHAEL PLAN CE Y ORGANIZ [facility] Jul 19, (WNR) [id number] [phone] BUEHRL E,M PATIENT HEALTHCARE RE(WN 2018 7701 9 ICHAEL (WNR) R) WELLCARE MEDICARE MCR Jul 19, [id number] BUEHRL E PATIENT MCR (WNR) ADVANTAGE (WNR) 2021 8 4 SR, Selected Encounter This section includes the information on record at [place] for the Encounter. Date/Time Encounter Type Encounter Description Reason Provider Source Mar 18, 2022 09:40 Outpatient Encounter OPTOMETRY AM IHE Encounter Template Text not used by [place] Plan of Treatment: Future Appointments (+ 6 months) and Future Tests (+/- 45 days) The Plan of Treatment section includes future care activities for the patient from all [place] [facility]. This section includes future appointments and future orders which are active, pending orscheduled.Future Appointments This section includes appointments that were scheduled to occur 6 months from the date of the Encounter, up to a maximum of 20 appointments. The data comes from all [place] treatment facilities. Appointment Date/Time Appointment Type Appointment Facili ty Name Aug 04, 2022 09:30 AM AMBULATORY - REHAB MEDICINE [place] [facility] [place] [facility] Aug 18, 2022 10:00 AM AMBULATORY - MEDICINE [place] [facility] [place] [facility] Aug 27, 2022 09:30 AM AMBULATORY - MEDICINE [place] [facility] [place] [facility] Social History: Smoking Status (Most current) and Tobacco Use (All prior to encounter date) This section includes the most current, and the historical, smoking and tobacco-related health factors from the [place] facility where the Encounter took place.Current Smoking Status This section includes the most current smoking, or tobacco-related health factor, from the [place] facility where the Encounter took place. Date/Time Current Smoking Status Comment Facility Aug 23, 2019 09:07 AM [place]-TOBACCO QUIT 15 YRS OR [place] [facility] [place] [facility] Tobacco Use History This section includes a history of the smoking, or tobacco- related health factors, that were collected on or before the date of the Encounter. The data comes from the [place] facility where the Encounter took place. Date/Time Smoking Status/Tobacco Use Comment [facility] Aug 23, 2019 09:07 AM VA-TOBACCO QUIT 15 YRS OR VA [facility] [place] [facility] Jun 28, 2018 10:50 AM VA-TOBACCO FORMER USER [place] [facility] [place] [facility] Jun 28, 2018 10:50 AM VA-TOBACCO QUIT 15 YRS OR [facility] [place] [facility] Oct 14, 2017 09:20 AM QUIT TOBACCO USE > 7 YEARS [place] [facility] [place] [place] A[place] [facility] Oct 05, 2016 01:02 PM QUIT TOBACCO USE > 7 YEARS [place] [facility] [place] [place] [facility] Encounter Notes: All associated encounter notes This section contains the clinical notes associated to the Encounter. Date/Time Encounter Note(s) Provider Source Mar 18, 2022 09:40 AM TELEPHONE ENCOUNTER NOTE: ARABELLA NOE CNTRL WSTRN LOCAL TITLE: TELEPHONE NOTE/SPE[facility]TY [facility]IC [facility] STANDARD TITLE: TELEPHONE ENCOUNTER NOTE DATE OF NOTE: MAR 18, 2022@09:40 ENTRY DATE: MAR 18, 2022@09:40:50 AUTHOR: ARABELLA NOE EXP COSIGNER: URGENCY: STATUS: COMPLETED TELEPHONE NOTE/SPECIALTY CLINIC Has ADDENDA called stating he had multiple r ecurrances of a situation he described as a curtain being pulled over his eye ( pt stated this was discussed at recent appt 03/05/22). The most recent incident occured this morning for a longer duration. He is requesting a call back to discuss recommendations. Phone number on file has been confirmed. /alba/ ARABELLA NOE ADVANCED PRECISION STRUCTURAL METAL FITTER Signed: 03/18/2022 09:43 Receipt Acknowledged By: 03/18/2022 09:56 /alba/ Kilo Decker OD Fee Basis Security Assurance Analyst * AWAITING SIGNATURE * SHALONDA KOENIG 03/18/2022 ADDENDUM STATUS: COMPLETED Called pt and he describes total blackou t of vision OS this AM lasting about 3 minutes but vision has returned to normal. Advis ed pt call his PCP, bag patcher or neurologist stat. He reports he has called his bag patcher this AM and is waiting for a return call. /alba/ Kilo Decker OD Fee Basis Security Assurance Analyst Signed: 03/18/2022 09:57
--- OUTSIDE RECORDS SUMMARY | 2022-10-07 18:46 | XMS_ITS | Encounter Summary ---
:1940 Author Organization [facility] Address [address] [place] [address] Support Name Relationship Address Phone LINDEN PARDO Unavailable [address] [place] [address] LINDEN PARDO Unavailable [address] [place] [address] OLENANOBLE Unavailable [address] [facility] [place] [address] Insurance Providers: All historical and current Section [...] Number Cherry DANGELO ARREOLAT [id number] Jul 19, [id number] [phone] Rayne HILLMAN PATIENT ION 1 2017 26 1 SHELLEY PIERSNO PRESCRIPT [id number] Jul 19, [id number] [phone] Rayne HILLMAN PATIENT ION 1 2017 [id number] 3 SHELLEY MEDICARE MEDICARE PART Sep 16, PART B [id number] BUEHRL E PATIENT (WNR) (M) B 2005A [place] MEDICARE MEDICARE PART Sep 16, PART A [id number] BUEHRL E PATIENT (WNR) (M) A 2005A [place] MEDICARE MEDICARE PART Sep 16, PART B [id number] BUEHRL E PATIENT (WNR) (M) B 2005 [id number] [place] MEDICARE MEDICARE PART Sep 16, PART A [id number] BUEHRL E PATIENT (WNR) (M) A 2005 AH82 2 [place] MEDICARE MEDICARE PART Sep 16, PART B [id number] BUEHRL E PATIENT (WNR) (M) B 2005 AH82 2 [place] MEDICARE MEDICARE PART Sep 16, PART A [id number] BUEHRLE PATIENT (WNR) (M) A 2005 2 SRSUKI OPTUM RX PRESCRIPT RX Jul 19, THPRX [id number] [phone] BUEHR LE,M PATIENT ION 2022 [id number] 5 ICHMAGGIE OPTUM RX PRESCRIPT RX Jul 19, THPRX [id number] [phone] BUEHR LE,M PATIENT ION 2022 26 5 ICHAEL [facility] Jul 19, [id number] [phone] BUEHR LE,M PATIENT HEALTH - 2018 7701 48 ICHAEL [facility] Jul 19, [facility] [id number] [phone] BUEHRL E,M PATIENT HEALTH 2017 26 9 ICHAEL PLAN [facility] Jul 19, [id number] [phone] BUEHR LE,M PATIENT HEALTH [facility] 2017 26 9 ICHAEL PLAN [place] ORELLANA [facility] Jul 21, [facility] [id number] [phone] BUEHRL E,M PATIENT HEALTH [facility] FAM[facility] 2014 (WNR) [id number] ICHAEL PLAN CE Y ORGANIZ [facility] Jul 19, (WNR) [id number] [phone] BUEHRL E,M PATIENT HEALTHCARE RE(WN 2018 7701 9 ICHAEL (WNR) R) WELLCARE MEDICARE MCR Jul 19, [id number] BUEHRL E PATIENT MCR (WNR) ADVANTAGE (WNR) 2021 8 4 SR, Selected Encounter This section includes the information on record at [place] for the Encounter. Date/Time Encounter Type Encounter Description Reason Provider Source Aug 21, 2022 09:38 Outpatient Encounter OPTOMETRY AM IHE Encounter Template Text not used by [place] Plan of Treatment: Future Appointments (+ 6 months) and Future Tests (+/- 45 days) The Plan of Treatment section includes future care activities for the patient from all [place] treatmentfacilities. This section includes future appointments and future orders which are active, pending orscheduled.Future Appointments This section includes appointments that were scheduled to occur 6 months from the date of the Encounter, up to a maximum of 20 appointments. The data comes from all [place] treatment facilities. Appointment Date/Time Appointment Type Appointment Facili ty Name Aug 27, 2022 09:30 AM AMBULATORY - [place]ICINE [place] [facility] [place] [facility] Oct 06, 2022 11:30 AM [facility] [place] [facility] Social History: Smoking Status (Most current) and Tobacco Use (All prior to encounter date) This section includes the most current, and the historical, smoking and tobacco-related health factors from the [place] facility where the Encounter took place.Current Smoking Status This section includes the most current smoking, or tobacco-related health factor, from the [place] facility where the Encounter took place. Date/Time Current Smoking Status Comment Facility Aug 23, 2019 09:07 AM [place]-TOBACCO QUIT 15 YRS OR [place]L [place] [facility] Tobacco Use History This section includes a history of the smoking, or tobacco- related health factors, that were collected on or before the date of the Encounter. The data comes from the [place] facility where the Encounter took place. Date/Time Smoking Status/Tobacco Use Comment [facility] Aug 23, 2019 09:07 AM VA-TOBACCO QUIT 15 YRS OR [place] [facility] [place] [facility] Jun 28, 2018 10:50 AM VA-TOBACCO FORMER USER [place] [facility] Jun 28, 2018 10:50 AM VA-TOBACCO QUIT 15 YRS OR [facility] [place] [facility] Oct 14, 2017 09:20 AM QUIT TOBACCO USE > 7 YEARS [place] [facility] [place] [facility] Oct 05, 2016 01:02 PM QUIT TOBACCO USE > 7 YEARS [place] [facility] [place] [facility] Encounter Notes: All associated encounter notes This section contains the clinical notes associated to the Encounter. Date/Time Encounter Note(s) Provider Source Aug 21, 2022 09:38 AM TELEPHONE ENCOUNTER NOTE: ROXANN KNUTSON [place] [facility] [facility] LOCAL TITLE: TELEPHONE NOTE/[facility] STAND[facility] TITLE: TELEPHONE ENCOUNTER NOTE DATE OF NOTE: AUG 21, 2022@09:38 ENTRY DATE: AUG 21, 2022@09:38:53 AUTHOR: ROXANN KNUTSON EXP COSIGNER: URGENCY: STATUS: COMPLETED TELEPHONE NOTE/[facility] CLINIC Has ADDENDA called asking if had ordered 2 types of eye drops for him.Phone and address confirmed. /filippo KNUTSON SOLE SKIVER Signed: 08/21/2022 09:41 Receipt Acknowledged By: * AWAITING SIGNATURE * JARED MARMOLEJO 08/21/2022 10:46 /filippo Decker OD Fee Basis Sales Closer 08/21/2022 ADDENDUM STATUS: COMPLETED Refills requested for Refresh and olopatidine /filippo Decker OD Fee Basis Sales Closer Signed: 08/21/2022 10:47
--- OUTSIDE RECORDS SUMMARY | 2022-10-07 18:46 | XMS_ITS | Encounter Summary ---
:1940 Author Organization [facility] Address [address] [place] [address] Support Name Relationship Address Phone LINDEN PARDO Unavailable [address] [place] [address] LINDEN PARDO Unavailable [address] [place] [address] OLENANOBLE Unavailable [address] [facility] [place] [address] Insurance Providers: All historical and current Section [...] Number Cherry DANGELO ARREOLAT [id number] Jul 19, [id number] [phone] Rayne HILLMAN PATIENT ION 1 2017 26 1 SHELLEY PIERSON PRESCRIPT [id number] Jul 19, [id number] [phone] Rayne HILLMAN PATIENT ION 1 2017 7701 3 SHELLEY MEDICARE MEDICARE PART Sep 16, PART B [id number] [id number] BUEHRL E PATIENT (WNR) (M) B 2005A [place] MEDICARE MEDICARE PART Sep 16, PART A [id number] [id number] BUEHRL E PATIENT (WNR) (M) A 2005A [place] MEDICARE MEDICARE PART Sep 16, PART B [id number] [id number] BUEHRL E PATIENT (WNR) (M) B 2005 [id number] 00 [place] MEDICARE MEDICARE PART Sep 16, PART A [id number] BUEHRL E PATIENT (WNR) (M) A 2005 AH82 2 [place] MEDICARE MEDICARE PART Sep 16, PART B [id number] BUEHRL E PATIENT (WNR) (M) B 2005 AH82 2 SRSUKI MEDICARE MEDICARE PART Sep 16, PART A [id number] BUEHRLE PATIENT (WNR) (M) A 2005 2 SRSUKI OPTUM RX PRESCRIPT RX Jul 19, THPRX [id number] [phone] BUEHR LE,M PATIENT ION 2022 7701 5 ICHMAGGIE OPTUM RX PRESCRIPT RX Jul 19, THPRX [id number] [phone] BUEHR LE,M PATIENT ION 2022 26 5 ICHAEL [facility] Jul 19, [id number] [phone] BUEHR LE,M PATIENT HEALTH - 2018 7701 48 [facility]EL [facility] Jul [facility], [facility] [id number] [phone] BUEHRL E,M PATIENT HEALTH 2017 26 9 ICHAEL PLAN [facility] Jul 19, [id number] [phone] BUEHR LE,M PATIENT HEALTH [facility] 2017 26 9 ICHAEL PLAN [place]LLANA [facility] Jul 21, [facility] [id number] [phone] BUEHRL E,M PATIENT HEALTH [facility] FAMIL 2014 (WNR) [id number] ICHAEL PLAN CE Y ORGANIZ [facility] Jul 19, (WNR) [id number] [phone] BUEHRL E,M PATIENT HEALTHCARE RE(WN 2018 7701 9 ICHAEL (WNR) R) WELLCARE MEDICARE MCR Jul 19, [id number] BUEHRL E PATIENT MCR (WNR) ADVANTAGE (WNR) 2021 8 4 SR, Selected Encounter This section includes the information on record at [place] for the Encounter. Date/Time Encounter Type Encounter Reason Provider Source Description Aug 18, 2022 FIT SPECTACLES OPTOMETRY ICD-10-CM Z46.0 CARRIE GRECO 04:27 PM MULTIFOCAL Encounter for DELMI fit/adjst of spectacles and contact lenses with Provider Comments: Encounter for Fitting and Adjustment of Spectacles and Contact Lenses IHE Encounter Template Text not used by [facility] Assessments - Encounter Diagnoses This section includes the primary and secondary diagnoses documented for the Encounter. Date/Time Primary/Secondary Diagnosis Name Provider Source Diagnosis Aug 18, 2022 PRIMARY Encounter for [facility] fit/adjst of [place] [facility] spectacles and contact lenses Plan of Treatment: Future Appointments (+ 6 months) and Future Tests (+/- 45 days) The Plan of Treatment section includes future care activities for the patient from all [place] treatmentfacilities. This section includes future appointments and future orders which are active, pending orscheduled.Future Appointments This section includes appointments that were scheduled to occur 6 months from the date of the Encounter, up to a maximum of 20 appointments. The data comes from all [place] treatment facilities. Appointment Date/Time Appointment Type Appointment Facili ty Name Aug 27, 2022 09:30 AM [facility] Oct 06, 2022 11:30 AM [facility] Social History: Smoking Status (Most current) and Tobacco Use (All prior to encounter date) This section includes the most current, and the historical, smoking and tobacco-related health factors from the [place] facility where the Encounter took place.Current Smoking Status This section includes the most current smoking, or tobacco-related health factor, from the [place] facility where the Encounter took place. Date/Time Current Smoking Status Comment Facility Aug 23, 2019 09:07 [facility] [place] [facility] Tobacco Use History This section includes a history of the smoking, or tobacco- related health factors, that were collected on or before the date of the Encounter. The data comes from the [place] facility where the Encounter took place. Date/Time Smoking Status/Tobacco Use Comment [facility] Aug 23, 2019 09:07 AM [facility] [place] [facility] Jun 28, 2018 10:50 AM [place]-TOBACCO FORMER USER [facility] [place] [facility] Jun 28, 2018 10:50 AM VA-TOBACCO QUIT 15 YRS OR [facility] [place] [facility] Oct 14, 2017 09:20 AM QUIT TOBACCO USE > 7 YEARS [place] [facility] [place] [facility] Oct 05, 2016 01:02 PM QUIT TOBACCO USE > 7 YEARS [place] [facility] [place] [facility] Encounter Notes: All associated encounter notes This section contains the clinical notes associated to the Encounter. 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 /alba/ CARRIE ROSELON [facility] TECHINICIAN Signed: 08/18/2022 16:27
--- OUTSIDE RECORDS SUMMARY | 2022-10-07 18:46 | XMS_ITS | Encounter Summary ---
:1940 Author Organization [facility] Address [address] [place] [address] Support Name Relationship Address Phone LINDEN PARDO Unavailable [address] [place] [address] LINDEN PARDO Unavailable [address] [place] [address] OLENANOBLE Unavailable [address] [place] [address] Insurance Providers: All historical and current Section [...] Number Cherry DANGELO ARREOLAT [id number] Jul 19, [id number] [phone] Rayne HILLMAN PATIENT ION 1 2017 26 1 SHELLEY PIERSON PRESCRIPT [id number] Jul 19, [id number] [phone] Rayne HILLMAN PATIENT ION 1 2017 7701 3 SHELLEY MEDICARE MEDICARE PART Sep 16, PART B [id number] BUEHRL E PATIENT (WNR) (M) B 2005A [place] MEDICARE MEDICARE PART Sep 16, PART A [id number] BUEHRL E PATIENT (WNR) (M) A 2005A [place] MEDICARE MEDICARE PART Sep 16, PART B [id number] BUEHRL E PATIENT (WNR) (M) B 2005 [id number] 00 [place] MEDICARE MEDICARE PART Sep 16, PART A [id number] BUEHRL E PATIENT (WNR) (M) A 2005 AH82 2 [place] MEDICARE MEDICARE PART Sep 16, PART B [id number] BUEHRL E PATIENT (WNR) (M) B 2005 AH82 2 [place] MEDICARE MEDICARE PART Sep 16, PART A [id number] BUEHRLE PATIENT (WNR) (M) A 2005 2 SRSUKI OPTUM RX PRESCRIPT RX Jul 19, THPRX [id number] [phone] BUEHR LE,M PATIENT ION 2022 26 5 ICHMAGGIE OPTUM RX PRESCRIPT RX Jul 19, THPRX [id number] [phone] BUEHR LE,M PATIENT ION 2022 7701 5 ICHAEL [facility] Jul 19, [id number] [phone] BUEHR LE,M PATIENT HEALTH - 2018 7701 48 [facility]EL [facility] Jul 19, [facility] [id number] [phone] BUEHRL E,M PATIENT HEALTH 2017 26 9 ICHAEL PLAN [facility] Jul 19, [id number] [phone] BUEHR LE,M PATIENT HEALTH [facility] 2017 26 9 ICHAEL PLAN [place]HY[place] ORELLANA [facility] Jul 21, [id number] [phone] BUEHRL E,M PATIENT HEALTH [facility] FAMIL 2014 (WNR) [id number] ICHAEL PLAN CE Y ORGANIZ [facility] Jul 19, (WNR) [id number] [phone] BUEHRL E,M PATIENT HEALTHCARE RE(WN 2018 7701 9 ICHAEL (WNR) R) WELLCARE MEDICARE MCR Jul 19, [id number] BUEHRL E PATIENT MCR (WNR) ADVANTAGE (WNR) 2021 8 4 SR, Selected Encounter This section includes the information on record at [place] for the Encounter. Date/Time Encounter Type Encounter Description Reason Provider Source Aug 18, 2022 02:51 Outpatient Encounter OPTOMETRY PM IHE Encounter Template Text not used by CT Plan of Treatment: Future Appointments (+ 6 months) and Future Tests (+/- 45 days) The Plan of Treatment section includes future care activities for the patient from all [place] treatmentfacilities. This section includes future appointments and future orders which are active, pending orscheduled.Future Appointments This section includes appointments that were scheduled to occur 6 months from the date of the Encounter, up to a maximum of 20 appointments. The data comes from all [place] treatment facilities. Appointment Date/Time Appointment Type Appointment Facili ty Name Aug 27, 2022 09:30 AM AMBULATORY - MEDICINE [place] [facility] [place] [facility] Oct 06, 2022 11:30 AM AMBULATORY - MEDICINE [facility] CN[facility]L [place] [facility] Social History: Smoking Status (Most current) and Tobacco Use (All prior to encounter date) This section includes the most current, and the historical, smoking and tobacco-related health factors from the [place] facility where the Encounter took place.Current Smoking Status This section includes the most current smoking, or tobacco-related health factor, from the [place] facility where the Encounter took place. Date/Time Current Smoking Status Comment Facility Aug 23, 2019 09:[address]-TOBACCO QUIT [address] [place]L [place] [facility] Tobacco Use History This section includes a history of the smoking, or tobacco- related health factors, that were collected on or before the date of the Encounter. The data comes from the [place] facility where the Encounter took place. Date/Time Smoking Status/Tobacco Use Comment [facility] Aug 23, 2019 09:07 AM VA-TOBACCO QUIT 15 YRS OR VA CNTRL [place] [facility] Jun 28, 2018 10:50 AM VA-TOBACCO FORMER USER CT CNTRL WSTR[place] [facility] Jun 28, 2018 10:50 AM VA-TOBACCO QUIT 15 YRS OR VA CNTRL [place] [facility] Oct 14, 2017 09:20 AM QUIT TOBACCO USE > 7 YEARS [place] [facility] [place] [facility] Oct 05, 2016 01:02 PM QUIT TOBACCO USE > 7 YEARS [place] [facility] [place] [facility] Encounter Notes: All associated encounter notes This section contains the clinical notes associated to the Encounter. Date/Time Encounter Note(s) Provider Source Aug 18, 2022 02:51 PM OPTOMETRY NOTE: ASHWIN LINDER CNTRL W STRN LOCAL TITLE: OPTOMETRY NOTE [facility] TITLE: OPTOMETRY NOTE DATE OF NOTE: AUG 18, 2022@14:51 ENTRY DATE: AUG 18, 2022@14:51:44 AUTHOR: ASHWIN LINDER EXP COSIGNER: URGENCY: STATUS: COMPLETED LEONARDO JACOBO [id number] RX INFORMATION OD +2.25 -2.25 X105 Add:+2.50 Pzm:+2.00 Dir:OUT Prz2:0.00 Dir2: OS +1.25 -3.00 X87 Add:+2.50 Pzm:+1.00 Dir:DOWN Prz2:0.00 Dir2: FITTING INFORMATION FPD: NPD: [place]:R:28 L:27 SEG HT:R:22 L:22 Tint:None Shade:None VA Billable Items FRAME: MARK MONACO 23-20-831 Right Lens: PLASTIC VA PROGRESSIVE PHOTOCHROMIC CALLE 1.498 PLASTIC CR39 Left Lens: PLASTIC VA PROGRESSIVE PHOTOCHROMIC G MUSA 1.498 PLASTIC CR39 PRZM1 PRZM1 /alba/ ASHWIN LINDER DIRECTOR OF BUSINESS SERVICES Signed: 08/18/2022 14:51 Receipt Acknowledged By: * AWAITING SIGNATURE * CARRIE GRECO
--- OUTSIDE RECORDS SUMMARY | 2022-10-07 18:46 | XMS_ITS | Encounter Summary ---
:1940 Author Organization [facility] Address [address] [place] [address] Support Name Relationship Address Phone LINDEN PARDO Unavailable [address] [place] [address] LINDEN PARDO Unavailable [address] [place] [address] OLENANOBLE Unavailable 24 [place] [address] Insurance Providers: All historical and current Section [...] Number Cherry DANGELO ARREOLAT [id number] Jul 19, [id number] [phone] Rayne HILLMAN PATIENT ION 1 2017 26 1 SHELLEY PIERSON PRESCRIPT [id number] Jul 19, [id number] [phone] Rayne HILLMAN PATIENT ION 1 2017 7701 3 SHELLEY MEDICARE MEDICARE PART Sep 16, PART B [id number] BUEHRL E PATIENT (WNR) (M) B 2005A [place] MEDICARE MEDICARE PART Sep 16, PART A [id number] [id number] BUEHRL E PATIENT (WNR) (M) A 2005A [place] MEDICARE MEDICARE PART Sep 16, PART B [id number] BUEHRL E PATIENT (WNR) (M) B 2005 [id number] 00 [place] MEDICARE MEDICARE PART Sep 16, PART A [id number] BUEHRL E PATIENT (WNR) (M) A 2005 AH82 2 [place] MEDICARE MEDICARE PART Sep 16, PART B [id number] BUEHRL E PATIENT (WNR) (M) B 2005 AH82 2 SRSUKI MEDICARE MEDICARE PART Sep 16, PART A [id number] BUEHRLE PATIENT (WNR) (M) A 2005 2 SRSUKI OPTUM RX PRESCRIPT RX Jul 19, THPRX [id number] [phone] BUEHR LE,M PATIENT ION 2022 26 5 ICHMAGGIE OPTUM RX PRESCRIPT RX Jul 19, THPRX [id number] [phone] BUEHR LE,M PATIENT ION 2022 7701 5 ICHAEL [facility] Jul 19, [id number] [phone] BUEHR LE,M PATIENT HEALTH - 2018 7701 48 [facility]EL [facility], [facility] [id number] [phone] BUEHRL E,M PATIENT HEALTH 2017 26 9 ICHAEL PLAN [facility] Jul 19, [id number] [phone] BUEHR LE,M PATIENT HEALTH [facility] 2017 26 9 ICHAEL PLAN TIMOTHYON ORELLANA [facility] Jul 21, [id number] [phone] BUEHRL E,M PATIENT HEALTH [facility] FAMIL 2013 (WNR) [id number] ICHAEL PLAN CE Y ORGANIZ [facility] Jul 19, (WNR) [id number] [phone] BUEHRL E,M PATIENT HEALTHCARE RE(WN 2018 7701 9 ICHAEL (WNR) R) WELLCARE MEDICARE MCR Jul 19, [id number] BUEHRL E PATIENT MCR (WNR) ADVANTAGE (WNR) 2021 8 4 SR, Selected Encounter This section includes the information on record at [place] for the Encounter. Date/Time Encounter Type Encounter Reason Provider Source Description Aug 27, 2022 REPAIR & ADJUST OPTOMETRY ICD-10-CM Z46.0 CARRIE GRECO 09:30 AM SPECTACLES Encounter for DELMI fit/adjst of spectacles and contact lenses with Provider Comments: Encounter for Fitting and Adjustment of Spectacles and Contact Lenses IHE Encounter Template Text not used by [facility] Assessments - Encounter Diagnoses This section includes the primary and secondary diagnoses documented for the Encounter. Date/Time Primary/Secondary Diagnosis Name Provider Source Diagnosis Aug 27, 2022 PRIMARY Encounter for [facility] GRE[facility] AM fit/adjst of [place] [facility] spectacles and contact lenses Plan of Treatment: Future Appointments (+ 6 months) and Future Tests (+/- 45 days) The Plan of Treatment section includes future care activities for the patient from all [place] treatmentfacilities. This section includes future appointments and future orders which are active, pending orscheduled.Future Appointments This section includes appointments that were scheduled to occur 6 months from the date of the Encounter, up to a maximum of 20 appointments. The data comes from all [place] treatment facilities. Appointment Date/Time Appointment Type Appointment Facili ty Name Oct 06, 2022 11:30 AM [facility] [place] [facility] Social History: Smoking Status (Most current) and Tobacco Use (All prior to encounter date) This section includes the most current, and the historical, smoking and tobacco-related health factors from the [place] facility where the Encounter took place.Current Smoking Status This section includes the most current smoking, or tobacco-related health factor, from the [place] facility where the Encounter took place. Date/Time Current Smoking Status Comment Facility Aug 23, 2019 09:07 AM [place]-TOBACCO QUIT 15 YRS OR [place] CNTR [place] [facility] Tobacco Use History This section includes a history of the smoking, or tobacco- related health factors, that were collected on or before the date of the Encounter. The data comes from the [place] facility where the Encounter took place. Date/Time Smoking Status/Tobacco Use Comment [facility] Aug 23, 2019 09:07 AM [place]-TOBACCO QUIT 15 YRS OR [place] CNTRL [place]STR[place] [facility] Jun 28, 2018 10:50 AM [place]-TOBACCO [facility] [place] [facility] Jun 28, 2018 10:50 AM VA-TOBACCO QUIT 15 YRS OR VA CNTRL [place] [facility] Oct 14, 2017 09:20 AM QUIT TOBACCO USE > 7 YEARS [place] [facility] [place] [facility] Oct 05, 2016 01:02 PM QUIT TOBACCO USE > 7 YEARS [place]L [place] [facility] Encounter Notes: All associated encounter notes This section contains the clinical notes associated to the Encounter. Date/Time Encounter Note(s) Provider Source Aug 27, 2022 09:19 AM OPTOMETRY NOTE: CARRIE GRECO [facility] LOCAL TITLE: OPTOMETRY NOTE MAS [facility] STANDARD TITLE: OPTOMETRY NOTE DATE OF NOTE: AUG 27, 2022@09:19 ENTRY DATE: AUG 27, 2022@09:19:32 AUTHOR: CARRIE GRECO EXP COSIGNER: URGENCY: STATUS: COMPLETED Fit and adjusted 1 pair of eyeglasses per patien ts request. /alba/ CARRIE AWAD [facility] Signed: 08/27/2022 09:20
--- OUTSIDE RECORDS SUMMARY | 2022-10-07 18:46 | XMS_ITS | Encounter Summary ---
:1940 Author Organization [facility] Address [address] [place] [id number] Support Name Relationship Address Phone LINDEN PARDO Unavailable [address] [place] [address] LINDEN PARDO Unavailable [address] [place] [address] OLENANOBLE Unavailable [address] [facility] [place] [address] Insurance Providers: All historical and current Section [...] Number Cherry DANGELO ARREOLAT [id number] Jul 19, [id number] [phone] Rayne HILLMAN PATIENT ION 1 2017 26 1 SHELLEY PIERSON PRESCRIPT [id number] Jul 19, [id number] [id number] [phone] Rayne HILLMAN PATIENT ION 1 2017 [id number] 3 SHELLEY MEDICARE MEDICARE PART Sep 16, PART B [id number] BUEHRL E PATIENT (WNR) (M) B 2005A [place] MEDICARE MEDICARE PART Sep 16, PART A [id number] BUEHRL E PATIENT (WNR) (M) A 2005A [place] MEDIC[employer] MEDICARE PART Sep 16, PART B [id number] BUEHRL E PATIENT (WNR) (M) B 2005 [id number] [place] MEDICARE MEDICARE PART Sep 16, PART A [id number] BUEHRL E PATIENT (WNR) (M) A 2005 [id number] 2 [place] MEDICARE MEDICARE PART Sep 16, PART B [id number] BUEHRL E PATIENT (WNR) (M) B 2005 [id number] 2 SRSUKI MEDICARE MEDICARE PART Sep 16, PART A [id number] BUEHRLE PATIENT (WNR) (M) A 2005 2 SR,SUKI Hamilton OPTUM RX PRESCRIPT RX Jul 19, THPRX [id number] [phone] BUEHR LE,M PATIENT ION 2022 26 5 ICHMAGGIE OPTUM RX PRESCRIPT RX Jul 19, THPRX [id number] [phone] BUEHR LE,M PATIENT ION 2022 [id number] ICHAEL [facility] Jul 19, [id number] [phone] BUEHR LE,M PATIENT HEALTH - 2018 [id number] [facility]EL [facility] Jul 19, [facility] [id number] [phone] BUEHRL E,M PATIENT HEALTH 2017 26 9 ICHAEL PLAN [facility] Jul 19, [id number] [phone] BUEHR LE,M PATIENT HEALTH [facility] 2017 26 9 ICHAEL PLAN [facility]ON [facility] Jul 21, [id number] [phone] BUEHRL E,M PATIENT HEALTH [facility] FAMIL 2013 (WNR) [id number] ICHAEL PLAN [facility] Jul 19, (WNR) [id number] [phone] BUEHRL E,M PATIENT HEALTHCARE RE(WN 2018 7701 9 ICHAEL (WNR) R) [employer] MEDICARE MCR Jul 19, [id number] BUEHRL E PATIENT MCR (WNR) ADVANTAGE (WNR) 2021 8 4 SR, Selected Encounter This section includes the information on record at [place] for the Encounter. Date/Time Encounter Type Encounter Reason Provider Source Description Aug 18, 2022 DETERMINE OPTOMETRY ICD-10-CM GEORGIE WARNER 10:00 AM REFRACTIVE STATE H50.51 MADI J Esophoria with Provider Comments: Esophoria IHE Encounter Template Text not used by VA Assessments - Encounter Diagnoses This section includes the primary and secondary diagnoses documented for the Encounter. 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 This section includes future appointments and future orders which are active, pending orscheduled.Future Appointments This section includes appointments that were scheduled to occur 6 months from the date of the Encounter, up to a maximum of 20 appointments. The data comes from all [place] treatment facilities. Appointment Date/Time Appointment Type Appointment Facili ty Name Aug 27, 2022 09:30 AM AMBULATORY - MEDICINE [facility] Oct 06, 2022 11:30 AM AMBULATORY - MEDICINE [facility] Social History: Smoking Status (Most current) and Tobacco Use (All prior to encounter date) This section includes the most current, and the historical, smoking and tobacco-related health factors from the [place] facility where the Encounter took place.Current Smoking Status This section includes the most current smoking, or tobacco-related health factor, from the [place] facility where the Encounter took place. Date/Time Current Smoking Status Comment Facility Aug 23, 2019 09:07 AM MS-TOBACCO QUIT 15 YRS OR [facility] Tobacco Use History This section includes a history of the smoking, or tobacco- related health factors, that were collected on or before the date of the Encounter. The data comes from the [place] facility where the Encounter took place. Date/Time Smoking Status/Tobacco Use Comment Facil priyank Aug 23, 2019 09:07 AM VA-TOBACCO QUIT 15 YRS OR [facility] [place] [facility] Jun 28, 2018 10:50 AM VA-TOBACCO FORMER USER [facility] [place] [facility] Jun 28, 2018 10:50 AM VA-TOBACCO QUIT 15 YRS OR [facility] [place] [facility] Oct 14, 2017 09:20 AM QUIT TOBACCO USE > 7 YEARS [facility] [place] [facility] Oct 05, 2016 01:02 PM QUIT TOBACCO USE > 7 YEARS [facility] [place] [facility] Encounter Notes: All associated encounter notes This section contains the clinical notes associated to the Encounter. Date/Time Encounter Note(s) Provider Source Aug 18, 2022 10:25 OPTOMETRY NOTE: VIVI WARNER [facility] AM LOCAL TITLE: OPTOMETRY NOTE J EMORY [facility] STANDARD TITLE: OPTOMETRY NOTE DATE OF NOTE: AUG 18, 2022@10:25 ENTRY DATE: AUG 18, 2022@10:25:45 AUTHOR: VIVI WARNER EXP COSIGNER: URGENCY: STATUS: COMPLETED 81 yo MALE last examined in February 2022 with hx of dry eye, decompensated esophoria . Problem specific exam today since c/ o increased tearing and notes sometimes his vision looks l chela someone cut up a piece of paper and threw it on the floor. Denies eye pain Active Problem Benign Prostatic Hypertrophy withou 08/01/2021 [...] CREWS Cognitive disorder G31.84 12/15/2016 YEN GREEN Active Outpatient Medications (including Supplie s): Active Outpatient Medications Status 1) CARBOXYMETHYLCELLULOSE 0.5% [...] MOUTH HALIMA LY ACTIVE 7 Total Medications allergies: VICODIN, CODEINE, PIROXICAM HEMOGLOBIN A1C TREND Collection DT Spec HGBA1c 09/13/2018 09:12 BLOOD 5.3 03/11/2018 09:51 BLOOD 5.4 04/14/2017 10:05 BLOOD 5.2 10/05/2016 13:56 BLOOD 5.2 VA with OD 20/20 OS 20/25 current Rx OD +[id number] OS +1.25-2.68b300 with 1 BRANDI OU refraction OD +2.25-2.48y163 with 2 BRANDI 20/20 OS +1.25-3.38i773 with 1 BD 20/20 distance phoria horz 3 BRANDI vert 2 BD OS slit lamp cornea quick TBUT OD faster than OS trace staining OD, clear OS arcus OU AC D and Q OU lids/lashes clear OU iris flat OU conj bulbar white OU palpebral clear OU angles gr 4 IOP OD 14 OS 16 time: 10:15 am A 1) 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 Medication List: Allergies/ADRs (Tool #5) FACILITY ALLERGY/ADR -------- No Remote Allergy[facility]ADR [facility] [place] [facility] CODEINE [facility] [place] [facility] PIROXICAM [facility] [place] [facility] VICODIN Med. Reconciliation (Tool #1) INCLUDED IN THIS LIST: Alphabetical list of act jessica outpatient prescriptions dispensed from this MS (local) an d dispensed from another MS or [facility] facility (remote) as well as inpatien t orders (local pending and active), local clinic medications, locally docu mented non-VA medications, and local prescriptions that have or be en discontinued in the past 90 days. Non-VA Meds Last Documented On: December 01, 2016 NOTE The display of VA prescriptions disp ensed from another MS or [facility] facility (remote) is limited to active outp atient prescription entries matched to National Drug File at the [facility] emergency department site and may not include some items such as investigational drugs, compo unds, etc. NOT INCLUDED IN THIS LIST: Medications self-ent ered by the patient into personal health records (i.e. [employer]) ar e NOT included in this list. Non-VA medications documented outside thi s VA, remote inpatient orders (regardless of status) and remote clinic medications are NOT included in this list. The patient and provider must always discuss medications the patient is taking, regardless o f where the medication was dispensed or obtained. Non-VA ACETAMINOPHEN 500MG TAB TAKE ONE TABLET BY MOUTH TWICE DAILY Non-VA ALBUTEROL 90MCG (CFC-F) 200D ORAL INHL INHALE 2 PUFFS BY MOUTH EVERY 4 HOURS NEEDED OUTPT CARBOXYMETHYLCELLULOSE 0.5% OPH SOLN (Sta tus = Active) INSTILL 1 DROP INTO EACH EYE FOUR TIMES A DAY Rx# [id number] Last Released: 03/06/22 Qty/Days Sup ply: Rx Expiration Date: 03/06/23 Refills Remainin Non-VA DILTIAZEM HCL 90MG 12HR SA CAP TAKE 2 CAPSULES BY MOUTH DAILY Non-VA MULTIVITAMIN CAP/TAB TAKE ONE TABLET BY MOUTH DAILY OUTPT OLOPATADINE HCL 0.1% OPH SOLN (Status = A ctive) INSTILL 1 DROP INTO EACH EYE TWICE DAILY Rx# [id number] Last Released: 04/08/22 Qty/Days Shi pply: 05/17 Rx Expiration Date: 01/27/23 Refills Remainin Non-VA RIVAROXABAN 20MG TAB TAKE ONE TABLET BY MOUTH DAILY SUPPLIES PHARMACY TERMS AND POSSIBLE PATIENT A CTIONS INPT = MS inpatient order IV = MS intravenous medication OUTPT = MS outpatient prescription PHARMACY POSSIBLE PATIENT TERMS EXPLANATION ACTIONS -------- ------ ACTIVE A prescription that can be If you have r efills, filled at the local [place] pharmacy. you may reques t a refill of this prescription from your MS pharmacy. CLINIC A medication you received during If you have questions a visit to a MS clinic or about this medication emergency department. contact your [place] healthcare team. DISCONTINUED A prescription your provider has C ontact your VA stopped. It is no longer healthcare team if you available to be sent to you or need more of thi s picked up at the MS pharmacy medication. window. A prescription which is too old Contact your VA to fill. This does not refer to healthcare team if you the expiration date of the need more of this medication in the container. medication. NON-VA A medication that came from If this medi cation is someplace other than a VA medication informatio n pharmacy. This may be a is incorrect or out of prescription from either the VA date, please te ll your other providers that was filled VA healthcare t eam. outside the VA. Or, it may be an rtur-zcd-awyqczv (OTC), herbal, dietary supplement or sample medication. ON HOLD An active prescription that will Contac t your VA not be filled until pharmacy pharmacy when you need resolves the issue. more of this medication. PENDING This prescription order has been If you have been sent to the pharmacy for review instructed to s tart the and is not ready yet. this medication now, contact your VA pharmacy. SUSPENDED An active prescription that is Contac t your VA not scheduled to be filled yet. pharmacy if you need You should receive it before you this medicatio n run out. now. /alba/ Vivi Warner OD Fee Basis Bobbin Coil Winder Signed: 08/18/2022 10:34
--- OUTSIDE RECORDS SUMMARY | 2022-10-07 18:47 | XMS_ITS | Encounter Summary ---
:1940 Author Organization [facility] rs Address [address] [place] [address] Support Name Relationship Address Phone LINDEN PARDO Unavailable [address] [place] [address] LINDEN PADRO Unavailable [address] [place] [address] OLENANOBLE Unavailable [address] [facility] [address] Insurance Providers: All historical and current Section [...] Number Cherry DANGELO ARREOLAT [id number] Jul 19, [id number] [phone] Rayne HILLMAN PATIENT ION 1 2017 26 1 SHELLEY PIERSON PRESCRIPT [id number] Jul 19, [id number] [phone] Rayne HILLMNA PATIENT ION 1 2017 [id number] SHELLEY MEDICARE MEDICARE PART Sep 16, PART B [id number] [phone] BUEHRL E PATIENT (WNR) (M) B 2005A [place] MEDICARE MEDICARE PART Sep 16, PART A [id number] [phone] BUEHRL E PATIENT (WNR) (M) A 2005A [place] MEDIC[place] MEDICARE PART Sep 16, PART B [id number] BUEHRL E PATIENT (WNR) (M) B 2005 [id number] [place] MEDICARE MEDICARE PART Sep 16, PART A [id number] BUEHRL E PATIENT (WNR) (M) A 2005 [id number] 2 [place] MEDICARE MEDICARE PART Sep 16, PART B [id number] BUEHRL E PATIENT (WNR) (M) B 2005 [id number] 2 [place] MEDICARE MEDICARE PART Sep 16, PART A [id number] BUEHRLE PATIENT (WNR) (M) A 2005 2 SRSUKI OPTUM RX PRESCRIPT RX Jul 19, THPRX [id number] [phone] BUEHR LE,M PATIENT ION 2022 26 5 ICHMAGGIE OPTUM RX PRESCRIPT RX Jul 19, THPRX [id number] [phone] BUEHR LE,M PATIENT ION 2022 [id number] ICHAEL [facility] Jul 19, [id number] [phone] BUEHR LE,M PATIENT HEALTH - 2018 [id number] [facility]EL [facility] Jul 19, [facility] [id number] [phone] BUEHRL E,M PATIENT HEALTH 2017 26 9 ICHAEL PLAN [facility] Jul 19, [id number] [phone] BUEHR LE,M PATIENT HEALTH [facility] 2017 26 9 ICHAEL PLAN [facility] Jul 21, [id number] [phone] BUEHRL E,M PATIENT HEALTH [facility] FAMIL 2013 (WNR) [id number] ICHAEL PLAN [facility] Jul 19, (WNR) [id number] [phone] BUEHRL E,M PATIENT HEALTHCARE RE(WN 2018 7701 9 ICHAEL (WNR) R) [employer] MEDICARE MCR Jul 19, [id number] BUEHRL E PATIENT MCR (WNR) ADVANTAGE (WNR) 2021 8 4 SR, Selected Encounter This section includes the information on record at [place] for the Encounter. Date/Time Encounter Type Encounter Reason Provider Source Description Oct 06, 2022 EYE EXAM OPTOMETRY ICD-10-CM NICK MARMOLEJO 11:30 AM ESTABLISH L71.8 Other E PATIENT rosacea with Provider Comments: Rosacea NEC IHE Encounter Template Text not used by [facility] Assessments - Encounter Diagnoses This section includes the primary and secondary diagnoses documented for the Encounter. Date/Time Primary/Secondary Diagnosis Name Provider Source Diagnosis Oct 07, 2022 PRIMARY Other rosacea LACEY MARMOLEJO [facility] 07:14 [facility] Oct 07, 2022 SECONDARY Dry eye syndrome LACEY MARMOLEJO [facility] 07:14 AM of bilateral [facility] lacrimal glands Oct 07, 2022 SECONDARY Esophoria [facility]ACE[facility]JO [facility] Oct 07, 2022 SECONDARY Other visual LACEY MARMOLEJO [facility] 07:14 AM disturbances [facility] Oct 07, 2022 SECONDARY Presence of LACEY MARMOLEJO [facility] 07:14 AM intraocular lens [facility] Oct 07, 2022 SECONDARY Rhinophyma LACEY MARMOLEJO [facility] Oct 07, 2022 SECONDARY Squamous LACEY MARMOLEJO [facility] 07:14 AM blepharitis left [facility] eye, upper and lower eyelids Oct 07, 2022 SECONDARY Squamous LACEY MARMOLEJO [facility] 07:14 AM blepharitis right [facility] eye, upper and lower eyelids Plan of Treatment: Future Appointments (+ 6 months) and Future Tests (+/- 45 days) The Plan of Treatment section includes future care activities for the patient from all [place] treatmentfacilities. This section includes future appointments and future orders which are active, pending orscheduled.Future Appointments This section includes appointments that were scheduled to occur 6 months from the date of the Encounter, up to a maximum of 20 appointments. The data comes from all [place] treatment facilities. Appointment Date/Time Appointment Type Appointment Facili ty Name Mar 05, 2023 10:30 AM AMBULATORY - MEDICINE [facility] Social History: Smoking Status (Most current) and Tobacco Use (All prior to encounter date) This section includes the most current, and the historical, smoking and tobacco-related health factors from the [place] facility where the Encounter took place.Current Smoking Status This section includes the most current smoking, or tobacco-related health factor, from the [place] facility where the Encounter took place. Date/Time Current Smoking Status Comment Facility Aug 23, 2019 09:07 AM VA-TOBACCO QUIT 15 YRS OR [facility] [place] [facility] Tobacco Use History This section includes a history of the smoking, or tobacco- related health factors, that were collected on or before the date of the Encounter. The data comes from the [place] facility where the Encounter took place. Date/Time Smoking Status/Tobacco Use Comment [facility] Aug 23, 2019 09:07 AM VA-TOBACCO QUIT 15 YRS OR [facility] [place] [facility] Jun 28, 2018 10:50 AM VA-TOBACCO FORMER USER [facility] [place] [facility] Jun 28, 2018 10:50 AM VA-TOBACCO QUIT 15 YRS OR [facility] [place] [facility] Oct 14, 2017 09:20 AM QUIT TOBACCO USE > 7 YEARS [facility] [place] [facility] Oct 05, 2016 01:02 PM QUIT TOBACCO USE > 7 YEARS [facility] [place] [facility] Encounter Notes: All associated encounter notes This section contains the clinical notes associated to the Encounter. 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 Benign Prostatic Hypertrophy without Outflow Obstruction ([facility] [id number]) 2. Lumbosacral radiculopathy 3. Multiple renal cysts [...] 7 Total Medications Allergies: VICODIN, CODEINE, PIROXICAM All medications including th ose prescribed by outside VA's, community providers, and all OTC meds were review ed and reconciled with patient to the best of their abilities. This 81 year old MALE is see n today for Patient coming today for blurred vision Medical, eye, personal, and social history are all reviewed and is contributory or is not contributory to today's visit. Date of last eye exam: Location: [facility] Chief Complaint:Patient coming in today for Blurred Vision. NOticed it when he was looking at the ipad when you see the apps on the screen each line has 4 in row and now showing 8 and it was looking like it was sliding of the screen I closed his eyes a couple of times and it went back to normal. He states he has been getting light headed has been going on and off for a month.Does not check Blood sugar. Takes prescribed eye drops every da y as requested.NO flashes, OS floaters, OS pain not heavy pain only in the morning when he takes the drops in thhe am it goes away this has been long standing.Right now hurts a little bit, itchy pain.No headaches HISTORY AND REVIEW OF SYSTEMS: OHx: pseudophakia OU asymmetric cupping OS>OD previously reported 4 episodes of diplopia x <1 min 05/2020 sees a neurologist in community - had at least o ne mini stroke (-) Pain: (-) LLANOS: (+) Diplopia: Chronic intermittent (+) Flashes: Left eye superi ibrahima, occassionally happens when he's reading, onset about 3 months ago. (-) Floaters: (-) Amaurosis Fugax/Tia's: (-) Eye Injury: OS willow lorraine(wore eyepatch)u nsure more information (-) Eye Surgery: (-) TBI FOHx: (-) Glaucoma/ARMD/Blindness Mom-Glaucoma Dad-Gla ucoma (-) Smoker/Length of Time/PPD: quit @ 50 DIABETIC:NO Last A1C: EYE MEDICATION(S): pantanol bid OU Artificial tears qid OU VISION AND REFRACTION: Current Rx with last BCVA: OD +2.25-2.96a356 with 2 BRANDI 20/20 OS +1.25-3.42u640 with 1 BD 20/20 DVA ( )sc (XX)cc OD:20/20 OS:20/20- NV OU:20/20 Intraocular Pressure (IOP) Method: I-care Time:11:19am OD:12 OS:12 Pupils: PERRL (-)APD 2.5mm-2.0mm EOMs: SAFE OU,(-)Pain/Diplopia CVF(facial, peripheral): FTFC OU ANTERIOR CHAMBER (AC) Penlight or slit lamp (if available) exam appear s unremarkable. Visual Imaging Performed Today:no Additional Comments:NONE /alba/ CARRIE [facility] TECHINICIAN Signed: 10/06/2022 11:30 10/06/2022 ADDENDUM STATUS: COMPLETED Active problems - Computerized Problem List is t he source for the followin. Benign Prostatic Hypertrophy without Outflow Obstruction ([facility] [id number]) 2. Lumbosacral radiculopathy 3. Multiple renal cysts [...] 7 Total Medications Allergies: VICODIN, CODEINE, PIROXICAM All medications including those prescribed by [facility]'s, community providers, and all OTC meds were reviewed and reconciled wi th patient to the best of their abilities. 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 He a lso was noted to have an episode of amaurosis fugax left eye 2021. He indicates his solution strategist has recommended carotid endarterectomy which he is declined. He is on anticoagulation therapy with Xarelto. Today he complains of left eye discomfort which improves with instillation of lubricating drops as well as recent episode of v isual phenomenon that by description is almost suggestive of an ophthalmi c migraine. He denies repeat episode of transient vision loss. Chief Complaint: Left eye pain which improves wi th use of lubricating drops. Episode of transient visual phenomenon while looking at his tablet suggestive of kaleidoscope type symptoms o ften reported with visual migraine. Symptoms lasted just several minutes and then resolved. ++++++++++++++++++++++++++++++++++++++++ ++++++++++++++++++++++++++++++++++++++ ++++++++++++++++++++++++++++++++++++++++ ++++++++++++++++++++++++++++++++++++++ Patient history, visual acuity, entrance testing and tonometry all performed by sterile technician and reviewed now by attending prov ider. 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 Conj: Mild chronic injection each eye Cornea: Clear centrally without staining but wi th instantaneous tear break-up time and reduced tea r meniscus AC: 3+ quiet each eye Iris: Normal each eye Lens: Centered PCIOL each eye Vit: Posterior vitreous detachment left eye Fundus exam: Dilated: xxx Non dilated: C/D: 0.55 right 9.65 left eye with distinct dis c margins and good color Macula: Normal each eye A/V: 1/3 each eye Vessels: Mild tortuosity each eye Periphery: No obvious holes, tears, detachments each eye Impression: Rosacea facies with blepharitis and chronic dry eye disease still symptomatic despite use of Patanol twice a day and lubricating drops 4 times a day each eye. There is no evidence of corneal st aining seen on exam today but tear break-up time is instan taneous with obvious blepharitis and meibomian gland dysfunction. Bilateral pseudophakia looks perfect. History of decompensated esophoria with hypo com ponent well compensated with current prismatic correction. Recent episode of visual dis turbance more suggestive of ophthalmic migraine and repeat episode of amaurosis fugax. He is followe d by outside cardiology with previous recommendation for endarterectomy which was declined by patient but on appropriate anticoagulation regimen. Plan: Patient education as noted above Olopatadine 1 drop 1-2 times a day as needed for symptoms of ocular itching Continue lubricating drops 4 times a day each ey e for chronic dry eye disease Start Aleida mask 1-2 times a day for 5 minutes for meibomian gland dysfunction. No change in glasses indicated at present. Discussed symptoms of visual distortion which ar e more suggestive of Ophthalmic migraine but in a patient with known vascular insufficiency currently managed and treated by outside cardiology. Education: As noted above Return to Clinic keep scheduled follow-up for co mprehensive exam or sooner if need be. Ophthalmic medication reconciliation: He is pres cribed Patanol 1 drop twice a day as needed for ocular itching as well as lubr icating drops up to 4 times a day for dry eye disease. Medication Reconciliation: Outpatient: Has the patient been taking medications as docu mented in the EMLR? YES: The patient has been taking medications as documented in the EMLR. Essential Medication List for Review used to co mplete this medication reconciliation. INCLUDED IN THIS LIST: Alphabetical list of act jessica outpatient prescriptions dispensed from this VA (local) an d dispensed from another [place] or [facility] facility (remote) as well as [...] non-VA provider. Medication List: Allergies/ADRs (Tool #5) [facility] ALLERGY/ADR -------- No Remote Allergy[facility]ADR [facility] CODEINE [facility] PIROXICAM [facility] VICODIN Med. Reconciliation (Tool [...] of VA prescriptions disp ensed from another VA or DoD facility (remote) is limited to active outp atient prescription entries matched to National Drug File at the [facility] and may not include some items such as investigational drugs, compo unds, etc. NOT INCLUDED IN THIS LIST: Medications self-ent ered by the patient into personal health records (i.e. [employer]) ar e NOT included in this list. [...] EACH EYE FOUR TIMES A DAY Rx# [id number] Last Released: 09/02/22 Qty/Days Sup ply: Rx Expiration Date: 03/06/23 Refills Remainin Non-VA DILTIAZEM HCL 90MG 12HR SA CAP TAKE 2 CAPSULES BY MOUTH DAILY Non-VA MULTIVITAMIN CAP/TAB TAKE ONE TABLET BY MOUTH DAILY OUTPT OLOPATADINE HCL 0.1% OPH SOLN (Status = A ctive) INSTILL 1 DROP INTO EACH EYE TWICE DAILY Rx# [id number] Last Released: 08/27/22 Qty/Days Sup ply: 05/17 Rx Expiration Date: 01/27/23 Refills Remainin Non-VA RIVAROXABAN 20MG TAB TAKE ONE TABLET BY MOUTH DAILY SUPPLIES PHARMACY TERMS AND POSSIBLE PATIENT A CTIONS INPT = [place] inpatient order IV = [place] intravenous medication OUTPT = [place] outpatient prescription PHARMACY POSSIBLE PATIENT TERMS EXPLANATION ACTIONS -------- ------ ACTIVE A prescription that can be If you have r efills, filled at the local [place] pharmacy. you may reques t a refill of this prescription from your VA pharmacy. CLINIC A medication you received during If you have questions a visit to a [place] clinic or about this medication emergency department. contact your [place] healthcare team. DISCONTINUED A prescription your provider has C ontact your VA stopped. It is no longer healthcare team if you available to be sent to you or need more of thi s picked up at the [place] pharmacy medication. window. A prescription which is too old Contact your VA to fill. This does not refer to healthcare team if you the expiration date of the need more of this medication in the container. medication. NON-VA A medication that came from If this medi cation is someplace other than a [place] medication informatio n pharmacy. This may be a is incorrect or out of prescription from either the VA date, please te ll your other providers that was filled VA healthcare t eam. outside the VA. Or, it may be an tlpr-kiy-cwbtuij (OTC), herbal, dietary supplement or sample medication. ON HOLD An active prescription that will Contac t your VA not be filled until pharmacy pharmacy when you need resolves the issue. more of this medication. PENDING This prescription order has been If you have been sent to the pharmacy for review instructed to he coulter the and is not ready yet. this medication now, contact your VA pharmacy. SUSPENDED An active prescription that is Contac t your VA not scheduled to be filled yet. pharmacy if you need You should receive it before you this medicatio n run out. now. Declines printed copy of medication list now. Suicide Screen: C-SSRS Screening [place]-Suicide Severity Rating Scale (C-SSRS Screener) 1. Over the past month, have you wished you wer e or wished you could go to sleep and not wake up? No 2. Over the past month, have you had any actual thoughts of killing yourself? No 3. Over the past month, have you been thinking about how you might do this? Response not required due to responses to other questions. 4. Over the past month, have you had these thou ghts and had some intention of acting on them? Response not required due to responses to other questions. 5. Over the past month, have you started to wor k out or worked out the details of how to kill yourself? Response not required due to responses to other questions. 6. If yes, at any time in the past month did yo u intend to carry out this plan? Response not required due to responses to other questions. 7. In your lifetime, have you ever done anythin g, started to do anything, or prepared to do anything to end you r life (for example, collected pills, obtained a gun, gave away valu gely, went to the roof but didn't jump)? No 8. If YES, was this within the past 3 months? Response not required due to responses to other questions. /alba/ Ronnie Marmolejo OD CHIEF OF OPTOMETRY Signed: 10/07/2022 07:15
== END 2022-10-07 18:51 | disposition home or self-care (01) ==
PROVIDERS: Physician Assistant; Emergency Provider Internal Medicine; PCP Family Medicine
DX: R07.89 Other chest pain (principal); I10 Essential (primary) hypertension; I48.0 Paroxysmal atrial fibrillation; Z79.01 Long term (current) use of anticoagulants
CPT/HCPCS: 36415; 71046; 80048; 84484; 85025; 85610; 85730; 93005; 99283

== ENCOUNTER → 2022-10-15 10:32 | Outpatient (BNVA) | payer OTHER, SELFPAY | PROVIDERS: PCP Family Medicine; Visit Provider Internal Medicine Cardiovascular Disease | DX: R07.89 Other chest pain (principal); I25.10 Atherosclerotic heart disease of native coronary artery without angina pectoris; I48.0 Paroxysmal atrial fibrillation; I10 Essential (primary) hypertension; Z79.899 Other long term (current) drug therapy | CPT/HCPCS: 93005; 99212 ==

== ENCOUNTER 2022-10-22 08:24 | Outpatient (REF) | payer OTHER, SELFPAY ==
[2022-10-22 09:22] LABS: Anion Gap 12 (12-20); Blood Urea Nitrogen 13 mg/dL (9-16); Calcium 9.1 mg/dL (8.4-10.2); Carbon Dioxide 30 mmol/L (22-29); Chloride 104 mmol/L (96-108); Estimated Glomerular Filt Rate > 60; Glucose Random 96 mg/dL (60-115); Potassium 4.4 mmol/L (3.3-5.1); Sodium 142 mmol/L (135-145)
== END 2022-10-22 08:25 | disposition home or self-care (01) ==
LOC: HO.LAB 08:24
PROVIDERS: Visit Provider Internal Medicine Cardiovascular Disease
DX: I10 Essential (primary) hypertension (principal); I25.10 Atherosclerotic heart disease of native coronary artery without angina pectoris; I48.0 Paroxysmal atrial fibrillation; R06.02 Shortness of breath
CPT/HCPCS: 36415; 80048

== ENCOUNTER 2022-12-03 10:23 | Outpatient (REF) | payer OTHER, SELFPAY ==
--- NOTE | ~2022-12-03 | MR_ITS ---
EXAMINATION: MR BRAIN WITHOUT CONTRAST CLINICAL INFORMATION: Dementia. Compared cognition. COMPARISON: CT head from 11/13/2021. TECHNIQUE: MRI of the brain was obtained using routine sequences without contrast. FINDINGS: No focal restricted diffusion is demonstrated to suggest acute or subacute cerebral ischemia. No evidence of acute or chronic hemorrhagic products on heme-sensitive imaging. Scattered and partially confluent periventricular, deep white matter, and brainstem T2 FLAIR hyperintensities consistent with moderate underlying microangiopathy. Proportional prominence of the ventricles and sulcal spaces without evidence of obstructive hydrocephalus. No abnormal mass effect. No midline shift. Normal appearance of the pituitary gland. Normal positioning of the cerebellar tonsils. Normal arterial and venous vascular flow voids are present. Normal, homogeneous marrow signal. Mild mucosal thickening of the paranasal sinuses. Moderate left-sided mastoid effusion. No signal abnormalities within the right-sided mastoid. Bilateral lens extractions. MR/MR head/brain wo con IMPRESSION: 1. No acute intracranial abnormalities. 2. Moderate underlying microangiopathy and generalized cerebral volume loss. 3. Moderate left-sided mastoid effusion.
== END 2022-12-03 10:24 | disposition home or self-care (01) ==
LOC: HO.MRI 10:23
PROVIDERS: PCP Family Medicine; Visit Provider Psychiatry & Neurology Neurology
DX: R90.82 White matter disease, unspecified (principal); R20.2 Paresthesia of skin
CPT/HCPCS: 70551

== ENCOUNTER 2023-04-19 10:03 | Outpatient (AMB) | payer OTHER, SELFPAY ==
[2023-04-19 10:09] VITALS: BP 130/66; PULSE 69; BMI 31.9
--- NOTE | 2023-04-19 10:09 | A.OFFVIS_ITS ---
Intake Vital Signs 04/19/23 10:09 Height 5 ft 10 in Weight 222 lb 10.67 oz BMI 31.9 BP 130/66 Blood Pressure Location Lt brachial Position Sitting Pulse 69 Intake Visit Reasons: 6 mth f/up Intake Note: 6 month follow-up feeling ok lung are not great Roller Repairer Required: No Cattle Examiner: Cattle Examiner Present Accompanied by: Daughter Allergies penicillin V Allergy (Severe, Verified 03/12/22 10:36) Hives piroxicam [PIROXICAM] Allergy (Intermediate, Verified 03/12/22 10:36) HIVES/SOB rofecoxib [From VIOXX] Allergy (Intermediate, Verified 03/12/22 10:36) HIVES/SOB Penicillins [PENICILLINS] Allergy (Unknown, Verified 03/12/22 10:36) UNKNOWN phenacetin [PHENACETIN] Allergy (Unknown, Verified 03/12/22 10:36) UNK From VICODIN Allergy (Intermediate, Uncoded 03/12/22 10:36) HIVES/SOB Medication List - Last Reconciled 04/19/23 by Lazaro Blake MD albuterol sulfate 90 mcg/actuation 2 puffs inhalation Q4H PRN ascorbic acid (vitamin C) mg PO atorvastatin 20 mg PO DAILY carboxymethylcellulose sodium 0.5% drps ophthalmic (eye) citalopram 40 mg PO DAILY diclofenac sodium 1% 1 ea topical QID diltiazem HCl 180 mg PO DAILY levetiracetam 750 mg PO BID lidocaine 5% 1 appl topical BID PRN nitric oxide gas 100PPM ea inhalation olopatadine 0.1% 1 drp ophthalmic (eye) ONCE rivaroxaban (Xarelto) 20 mg PO QPM tamsulosin 0.4 mg PO BID HPI HPI Comments History of Present Illness Details Rm comes for follow-up. He has had no clear cardiac symptoms. Gets more short of breath and has been told that his pulmonary capacity is reduced to 82%. No wheezing. No orthopnea, PND, leg edema. No exertional chest pain. No prolonged palpitation irregular heartbeat. No bleeding issues or neurologic events. No lightheadedness, syncope. Takes all his medications. Had lab work done through your office, do not have a copy of the same. FOR[facility]LY [facility], LATER [facility] Medical History CAD (coronary artery disease) Seizure disorder Paroxysmal atrial fibrillation HTN (hypertension) Surgical History History of left knee surgery History of right hip replacement History of ear surgery S/P skin biopsy Social History Alcohol intake: current Alcohol intake frequency: holidays/special occasions only Alcohol type: beer Patient Tobacco Use Status: Former Tobacco user Quit Date: 1999 Smoked: 30 +/- Review of Systems Const Denies chills, Denies fatigue, Denies fever(s), Denies frequent falls, Denies weakness, Denies weight gain and Denies weight loss ENT Denies dizziness Card Denies chest pain, Denies leg edema, Denies lightheadedness, Denies palpitations, Denies dyspnea, Denies dyspnea on exertion, Denies orthopnea and Denies other (loss of consciousness) Resp Denies cough, Denies dyspnea and Denies dyspnea on exertion GI Denies hematochezia and Denies change in stool character Musc Denies abnormal gait, Denies muscle weakness, Denies numbness, Denies radiating pain into limb and Denies tingling Neuro Denies abnormal gait, Denies dizziness, Denies frequent falls, Denies numbness, Denies tingling and Denies weakness Endo Denies fatigue and Denies palpitations Physical Exam Vital Signs: Last Vital Signs Pulse 69 04/19/23 10:09 BP 130/66 04/19/23 10:09 BMI result Body Mass Index 31.9 Const General: cooperative, comfortable, no acute distress, alert, awake and well groomed Nutritional Appearance: obese Orientation/consciousness: patient oriented x3 Limitations: ambulation with cane Neck Neck: Yes trachea midline, Yes supple and Yes no JVD Resp Effort & Inspection: normal respiratory effort Auscultation: clear to auscultation bilaterally Cardio Jugular venous distension: no JVD Palpation: normal PMI Rate: regular rate Rhythm: regular rhythm Heart sounds: S1 normal heart sound present, S2 normal heart sound present, no click, no gallops, no murmurs and no rubs GI Auscultation: normal bowel sounds Skin General skin exam: no rashes or lesions noted Neuro General: patient oriented x3 and no focal motor deficits Extrem General: Yes no clubbing, cyanosis or edema Assessment & Plan Assessment & Plan (1) Paroxysmal atrial fibrillation: Code(s): I48.0 - Paroxysmal atrial fibrillation Plan: Paroxysmal atrial fibrillation without any concerning symptoms at this point time. Has remained suppressed. Will continue pursue rhythm control approach. Continue current therapy with Cardizem. Continue full oral anticoagulation Xarelto. Quarterly renal function test should be pursued. Avoidance stimulants such as caffeine alcohol. Continue aggressive blood pressure control. Advised to call me with any worsening symptoms. (2) CAD (coronary artery disease): Code(s): I25.10 - Atherosclerotic heart disease of lummi coronary artery without angina pectoris Plan: Diffuse nonobstructive calcified coronary artery disease without any concerning symptoms of angina. Continue aggressive risk factor modification. Target goal LDL less than 70 mg/dL. Blood pressure is currently well optimized. Advised to monitor blood pressure at home maintain a log. Goal blood pressure less than 130/84. Advised to maintain activity level as tolerated. Will follow up in the clinic 1 year's time, sooner p.r.n.. Thank you for allowing me to partake in his care Coding Level of Care Code Est Pt Level 4 (88905) Diagnoses Paroxysmal atrial fibrillation I48.0 CAD (coronary artery disease) I25.10
== END 2023-04-19 10:40 | disposition home or self-care (01) ==
PROVIDERS: Visit Provider Internal Medicine Cardiovascular Disease
DX: I48.0 Paroxysmal atrial fibrillation (principal); I25.10 Atherosclerotic heart disease of native coronary artery without angina pectoris
CPT/HCPCS: 99214

== ENCOUNTER → 2023-04-19 10:03 | Outpatient (BNVA) | payer OTHER, SELFPAY | PROVIDERS: Visit Provider Internal Medicine Cardiovascular Disease | DX: I48.0 Paroxysmal atrial fibrillation (principal); I25.10 Atherosclerotic heart disease of native coronary artery without angina pectoris | CPT/HCPCS: 99212 ==

== ENCOUNTER 2023-05-15 10:19 | Emergency (ER) | payer OTHER, SELFPAY ==
[2023-05-15 10:22] VITALS: BP 124/53; PULSE 71; RESP 17; TEMP 35.7; O2SAT 96; BMI 32.8
--- NOTE | 2023-05-15 11:14 | ED.WOUNDLAC ---
HPI - Wound/Laceration General Chief Complaint: Wound/Laceration Stated Complaint: l hand inj at home on lawnmower Time Seen by Provider: 05/15/23 10:32 Source: patient, family and RN notes reviewed Mode of arrival: ambulatory Limitations: no limitations History of Present Illness HPI narrative: This is a 82-year-old male, with a history of coronary artery disease, hypertension, paroxysmal atrial fibrillation on Xarelto, presented to the emergency department with complaints of left hand laceration which occurred 30 minutes prior to his arrival. Patient states that he accidentally hit the dorsum of his left hand on a piece of metal. Patient reports that the area immediately started to bleed. No numbness, tingling. Unsure of last tetanus. No other complaints or concerns at this time. Onset (ago): day(s) Patient tetanus UTD: No Associated symptoms: none Treatments prior to arrival: bandage Related Data Home Medications Medication Instructions Recorded Confirmed diclofenac sodium 1 % topical gel 1 ea topical QID 06/11/20 04/19/23 albuterol sulfate 90 mcg/actuation 2 puff inhalation Q4H PRN wheezing 12/12/20 04/19/23 aerosol inhaler ascorbic acid (vitamin C) 500 mg mg PO 05/22/21 04/19/23 capsule nitric oxide gas 100 PPM for ea inhalation 05/22/21 04/19/23 inhalation atorvastatin 20 mg tablet 20 mg PO DAILY 11/25/21 04/19/23 tamsulosin 0.4 mg capsule 0.4 mg PO BID 11/25/21 04/19/23 carboxymethylcellulose sodium 0.5 drp ophthalmic (eye) 03/12/22 04/19/23 % eye drops olopatadine 0.1 % eye drops 1 drp ophthalmic (eye) ONCE 03/12/22 04/19/23 citalopram 40 mg tablet 40 mg PO DAILY 04/19/23 04/19/23 levetiracetam 1,000 mg tablet 750 mg PO BID 04/19/23 04/19/23 Previous Rx's Medication Instructions Recorded diltiazem HCl 180 mg 180 mg PO DAILY #90 caps 04/20/22 capsule,extended release 24 hr rivaroxaban 20 mg tablet (Xarelto) 20 mg PO QPM #90 tabs 05/11/22 lidocaine 5 % topical cream 1 appl topical BID PRN pain #15 05/12/22 grams Allergies Allergy/AdvReac Type Severity Reaction Status Date / Time penicillin V Allergy Severe Hives Verified 03/12/22 10:36 piroxicam [PIROXICAM] Allergy Intermediate HIVES/SOB Verified 03/12/22 10:36 rofecoxib [From VIOXX] Allergy Intermediate HIVES/SOB Verified 03/12/22 10:36 Penicillins [PENICILLINS] Allergy Unknown UNKNOWN Verified 03/12/22 10:36 phenacetin [PHENACETIN] Allergy Unknown UNK Verified 03/12/22 10:36 From VICODIN Allergy Intermediate HIVES/SOB Uncoded 03/12/22 10:36 [facility] Past Medical History Medical History CAD (coronary artery disease) Seizure disorder Paroxysmal atrial fibrillation HTN (hypertension) Surgical History History of left knee surgery History of right hip replacement History of ear surgery S/P skin biopsy Social History Social History Alcohol intake: current Alcohol intake frequency: holidays/special occasions only Alcohol type: beer Patient Tobacco Use Status: Former Tobacco user Quit Date: 1999 Smoked: 30 +/- Advance Directives: Yes Advance Directives Information Provided: No Advance Directives on File: No Physical Exam Vital Signs: Vital Signs: Last Vital Signs Temp 96.2 F L 05/15/23 10:22 Pulse 71 05/15/23 10:22 Resp 17 05/15/23 10:22 BP 124/53 L 05/15/23 10:22 Pulse Ox 96 05/15/23 10:22 O2 Del Method Room Air 05/15/23 10:22 BMI result Body Mass Index 32.8 Const: Other: General: Awake, alert, and oriented X3. No acute distress. HEENT: Normal inspection CVS: Normal heart rate and rhythm. Pulses normal. Respiratory: No respiratory distress Skin: Left dorsum of the hand for 1.5 cm skin tear noted. No active bleeding. Left hand with no bony tenderness. Full range of motion of all digits and wrist. Radial pulse 2 + Neuro: Oriented X 3. No motor deficit. No sensory deficit. Medications Administered Discontinued Medications Generic Name Dose Route Start Last Admin Trade Name Mahadq PRN Reason Stop Dose Admin Diphtheria/Tetanus/Acell Pertussis 0.5 ml 05/15/23 11:16 05/15/23 11:23 Diphth,Pertus(Acell),Tet Adult 0.5 Ml Syringe IM 05/15/23 11:17 0.5 ml .ONCE ONE Administration Medical Decision Making Medical Decision Making MDM Narrative: This is a 82-year-old male presenting to the emergency department for evaluation of left hand skin tear which occurred 30 minutes prior to his arrival. Patient has an approximately 1.5 cm curved skin tear noted the dorsum of the left hand. No active bleeding. Patient with no bony tenderness. Wound cleansed with saline and Betadine. Steri-Strips applied to wound, see procedure note. Given wound care instructions. Patient tolerated procedure well. Tetanus updated in the department today. Given return precautions. Patient understands and agrees with plan. Patient stable for discharge. Differential Diagnosis Differential Diagnoses: The differential diagnosis associated with the presentation includes Skin tear, abrasion, laceration, contusion Procedures Procedure Narrative Procedure Narrative: Wound cleansed with saline and Betadine. Wound is superficial. Good wound approximation using 3 Steri-Strips and benzoin. Patient tolerated procedure well without any complications or concerns. Dressed with clean dry dressing. Discharge Plan Discharge Clinical Impression: Skin tear of hand without complication Patient Disposition: Home, Self-Care Instructions: Steristrips (ED), Laceration Without Closure (ED) Additional Instructions: Your seen in the emergency department for a skin tear on your left hand. We cleaned this area and applied Steri-Strips. Please allow the Steri-Strips to follow-up on its own. Do not pick at wound. Watch for any signs of infection including but not limited to increased redness, swelling, fevers or chills. Please return if any of these occur. We updated your tetanus vaccination in the department today. If any new or worsening symptoms occur please return for re-evaluation. Prescriptions: No Action diltiazem HCl 180 mg capsule,extended release 24hr 180 mg PO DAILY Qty: 90 3RF Xarelto 20 mg tablet 20 mg PO QPM Qty: 90 3RF lidocaine 5 % cream 1 appl topical BID PRN (Reason: pain) Qty: 15 0RF diclofenac sodium 1 % gel 1 ea topical QID albuterol sulfate 90 mcg/actuation HFA aerosol inhaler 2 puff inhalation Q4H PRN (Reason: wheezing) ascorbic acid (vitamin C) 500 mg capsule PO nitric oxide gas 100 PPM gas inhalation tamsulosin 0.4 mg capsule 0.4 mg PO BID atorvastatin 20 mg tablet 20 mg PO DAILY olopatadine 0.1 % drops 1 drp ophthalmic (eye) ONCE carboxymethylcellulose sodium 0.5 % drops ophthalmic (eye) levetiracetam 1,000 mg tablet 750 mg PO BID citalopram 40 mg tablet 40 mg PO DAILY
[2023-05-15] MEDS: Diphth,Pertus(ACell),Tet Adult 0.5 ML SYRINGE IM (11:23)
== END 2023-05-15 11:40 | disposition home or self-care (01) ==
PROVIDERS: Emergency Provider Student in an Organized Health Care Education/Training Program; PCP Family Medicine
DX: S61.412A Laceration without foreign body of left hand, initial encounter (principal); W28.XXXA Contact with powered lawn mower, initial encounter; I10 Essential (primary) hypertension; I48.0 Paroxysmal atrial fibrillation; Z87.891 Personal history of nicotine dependence; Z79.01 Long term (current) use of anticoagulants; Y93.9 Activity, unspecified; Y92.017 Garden or yard in single-family (private) house as the place of occurrence of the external cause; Y99.9 Unspecified external cause status
CPT/HCPCS: 90471; 90715; 99282; 99284

== ENCOUNTER 2023-09-23 17:55 | Emergency (ER) | payer OTHER, SELFPAY ==
--- NOTE | ~2023-09-23 | XR_ITS ---
EXAMINATION: XR CHEST CLINICAL INFORMATION: Cough. Weakness. COMPARISON: Chest radiograph dated 10/07/2022. TECHNIQUE: 2 views of the chest were obtained. FINDINGS: The trachea is in normal anatomic position. Heart size is normal. Both lungs are clear. There is no pleural effusion. There is no pneumothorax. There is no acute osseous abnormality. XR/XR chest 2V IMPRESSION: No acute cardiopulmonary disease.
[2023-09-23 17:59] VITALS: BP 117/54; PULSE 76; RESP 18; TEMP 36.8; O2SAT 92; BMI 31.0
--- NOTE | 2023-09-23 17:59 | ED_ITS ---
HPI - General Adult General Chief complaint: Dizziness Stated complaint: dizziness, not strength, anemic? cant walk Time Seen by Provider: 09/23/23 22:30 Source: patient, family (Patient's daughter) and old records reviewed Mode of arrival: ambulatory Limitations: no limitations History of Present Illness HPI narrative: 82-year-old male past medical history significant for congestive heart failure, coronary artery disease, paroxysmal AFib on Xarelto, hypertension presents for evaluation of weakness and dizziness. Patient reports starting to feel increased weakness for last few days. He reports a productive cough since yesterday that was worse today. He reports in the middle afternoon today he was unable to stand due to bilateral weakness This has since improved He reports feeling general malaise and body aches He denies any significant shortness of breath, chest pain Related Data Home Medications Medication Instructions Recorded Confirmed diclofenac sodium 1 % topical gel 1 ea topical QID 06/11/20 04/19/23 albuterol sulfate 90 mcg/actuation 2 puff inhalation Q4H PRN wheezing 12/12/20 04/19/23 aerosol inhaler ascorbic acid (vitamin C) 500 mg mg PO 05/22/21 04/19/23 capsule nitric oxide gas 100 PPM for ea inhalation 05/22/21 04/19/23 inhalation atorvastatin 20 mg tablet 20 mg PO DAILY 11/25/21 04/19/23 tamsulosin 0.4 mg capsule 0.4 mg PO BID 11/25/21 04/19/23 carboxymethylcellulose sodium 0.5 drp ophthalmic (eye) 03/12/22 04/19/23 % eye drops olopatadine 0.1 % eye drops 1 drp ophthalmic (eye) ONCE 03/12/22 04/19/23 citalopram 40 mg tablet 40 mg PO DAILY 04/19/23 04/19/23 levetiracetam 1,000 mg tablet 750 mg PO BID 04/19/23 04/19/23 Previous Rx's Medication Instructions Recorded lidocaine 5 % topical cream 1 appl topical BID PRN pain #15 05/12/22 grams diltiazem HCl 180 mg 180 mg PO DAILY #90 caps 05/17/23 capsule,extended release 24 hr rivaroxaban 20 mg tablet (Xarelto) 20 mg PO QPM #90 tabs 07/13/23 Allergies Allergy/AdvReac Type Severity Reaction Status Date / Time penicillin V Allergy Severe Hives Verified 03/12/22 10:36 piroxicam [PIROXICAM] Allergy Intermediate HIVES/SOB Verified 03/12/22 10:36 rofecoxib [From VIOXX] Allergy Intermediate HIVES/SOB Verified 03/12/22 10:36 Penicillins [PENICILLINS] Allergy Unknown UNKNOWN Verified 03/12/22 10:36 phenacetin [PHENACETIN] Allergy Unknown UNK Verified 03/12/22 10:36 From VICODIN Allergy Intermediate HIVES/SOB Uncoded 03/12/22 10:36 Review of Systems 2 Constitutional: Constitutional: Reports body ache(s), Denies chills, Denies fever(s), Reports malaise and Reports weakness Eyes: Eyes: Reports blurry vision (Intermittent but not currently) ENT: Denies vertigo and Reports dizziness Cardiovascular: Cardiovascular: Denies chest pain, Denies syncope, Denies rapid heart rate, Denies palpitations and Reports dyspnea Respiratory: Respiratory: Denies chest congestion, Reports cough and Reports dyspnea Gastrointestinal: Gastrointestinal: Denies abdominal pain, Denies nausea and Denies vomiting Musculoskeletal: Musculoskeletal: Denies back pain Integumentary/Breasts: Skin/Breast: Denies rash Neurologic: Denies vertigo, Reports dizziness, Denies syncope and Reports weakness Endocrine: Endocrine: Denies palpitations PMFSH Past Medical History Medical History CAD (coronary artery disease) Seizure disorder Paroxysmal atrial fibrillation HTN (hypertension) Surgical History History of left knee surgery History of right hip replacement History of ear surgery S/P skin biopsy Social History Social History Alcohol intake: current Alcohol intake frequency: holidays/special occasions only Alcohol type: beer Patient Tobacco Use Status: Former Tobacco user Quit Date: 1999 Years Smoked: 30 +/- Advance Directives: Yes Advance Directives Information Provided: No Advance Directives on File: No Physical Exam ED Vital Signs: Vital Signs - 24 hr 09/23/23 17:59 09/23/23 21:39 09/23/23 22:52 Temperature 98.2 F 98.6 F 98.7 F Pulse Rate 76 66 66 Respiratory Rate 18 16 16 Blood Pressure 117/54 L 125/57 L 136/61 Pulse Oximetry 92 95 94 Oxygen Delivery Method Room Air Room Air Room Air BMI result Body Mass Index 31.0 Const General: healthy appearing, comfortable, no acute distress, alert and awake Nutritional Appearance: well nourished Orientation/consciousness: patient oriented x3 HENMT Head: Yes normocephalic and Yes atraumatic Eyes Eyelids: Yes eyelids normal Conjunctivae: conjunctivae normal Sclerae: sclerae normal Corneas: corneas normal Pupils: Equal, round and reactive pupils present EOM: EOMs intact bilaterally Neck Neck: Yes full ROM Resp Effort & Inspection: normal respiratory effort, able to speak in complete sentences, no audible wheezes and not labored Auscultation: clear to auscultation bilaterally Cardio Rate: regular rate Rhythm: regular rhythm GI Inspection: No distended Palpation (GI): Soft to palpation, not firm, nontender, no guarding and not rigid Skin General skin exam: elasticity normal Neuro General: patient oriented x3 Cranial nerves: Yes Equal, round and reactive pupils present and Yes Bilaterally intact EOM present Cognition (Neuro): normal cognition Extrem Other: Moving all extremities well without any obvious deformities Course Course Course Narrative: This is a rapid medical exam: Additional HPI, ROS, PE not included below will be deferred to primary provider. Patient is an 82-year-old male with history of CAD, seizure disorder, paroxysmal afib, HTN presenting to the the ED with complaint of dizziness and difficulty with balance as well as weakness worsening throughout the week. Report changes in vision for several days. Today was so weak/dizzy he was unable to get up from bed. States forehead hurts and the pain radiates to posterior neck. NIHSS 0 in triage. Plan: EKG, labs, CXR, US, viral swabs Medical Decision Making Medical Decision Making MDM Narrative: 82-year-old male with past medical history as documented above presents for evaluation of cough, congestion, weakness, body aches. His vital signs are within normal limits, he has not hypoxic on room air. His viral swab for significant for COVID-19. His chest x-ray shows no pleural effusions or infiltrates. Patient's troponin is within normal limits at 9.4. He denies any chest pain. Patient's BNP is slightly elevated to 107 but only just above his baseline of around 90. He does have a history of congestive heart failure and has been on Lasix in the past. There is no evidence of acute CHF exacerbation. The patient is on numerous medications that interfere with COVID-19 treatment of Paxlovid. Discussed possible remainder in the ER overnight for rehab consideration. This was offered to the patient and daughter however felt that he does not need this at this time. The patient is able to stand and ambulate independently. The patient's daughter states that she will be able to help him get home today and check on him 1st thing in the morning. Patient is cleared for discharge, return precautions were given Differential Diagnosis Differential Diagnoses: The differential diagnosis associated with the presentation includes COVID-19 Weakness Pneumonia Bronchitis CHF CAD less likely Admission/Observation Consideration of admission/observation: Escalation of care including admission/observation considered Consider admission due to COVID-19 diagnosis but the patient is not septic and does not require oxygen supplementation Lab Data MDM Lab Attestation statement: I reviewed the patient's lab results. No leukocytosis or anemia. Normal platelet count. No significant electrolyte abnormalities. Troponin within normal limits as above. 09/23/23 18:58 09/23/23 18:58 Labs: Lab Results 09/23/23 Range/Units 18:58 WBC 6.4 (4.8-10.8) X10*3/uL RBC 4.42 L (4.60-5.80) X10*6/uL Hgb 14.0 (14.0-18.0) g/dl Hct 42.0 (42.0-52.0) % MCV 95.0 (80.0-98.0) fL MCH 31.7 (27.0-33.0) pg MCHC 33.3 (31.0-36.0) g/dl RDW 13.5 (11.0-16.0) % Plt Count 173 (160-400) X10*3/uL MPV 9.4 (9.4-12.4) fL Immature Gran % (Auto) 0.5 H (0.0-0.4) % Neut % (Auto) 78.9 H (45-73) % Lymph % (Auto) 8.0 L (20-40) % [place] % (Auto) 9.6 (2-11) % Eos % (Auto) 2.4 (0-4) % Baso % (Auto) 0.6 (0-2) % Lymph # (Auto) 0.5 L (1.2-4.9) X10*3/uL [place] # (Auto) 0.6 (0.1-1.2) X10*3/uL Eos # (Auto) 0.2 (0.0-0.4) X10*3/uL Baso # (Auto) 0.0 (0.0-0.2) X10*3/uL Abs Immat Gran (auto) 0.03 (0.00-0.03) X10*3/uL Absolute Neuts (auto) 5.0 (2.0-8.3) x10*3/uL Absolute Nucleated RBC 0.000 (0.0-0.012) X10*3/uL Nucleated RBC % (auto) 0.0 (0.0-0.2) /100WBC PT 27.6 H (11.1-13.3) SEC INR 2.3 H (0.9-1.1) Sodium 137 (135-145) mmol/L Potassium 3.7 (3.3-5.1) mmol/L Chloride 103 (96-108) mmol/L Carbon Dioxide 25 (22-29) mmol/L Anion Gap 13 (12-20) BUN 13 (9-16) mg/dL Creatinine 0.83 (0.5-1.4) mg/dL Estim Creat Clear Calc 78.1 Estimated GFR > 60 Random Glucose 113 (60-115) mg/dL Calcium 9.2 (8.4-10.2) mg/dL Total Bilirubin 0.3 (0.0-1.0) mg/dL AST 15 (5-37) U/L ALT 9 (0-40) U/L Alkaline Phosphatase 50 (39-117) U/L Troponin I High Sens 9.4 D (<3.5-35.0) ng/L B-Natriuretic Peptide 107 H (<100) pg/mL Total Protein 7.0 (6.5-8.0) g/dL Albumin 4.0 (3.5-5.0) g/dL Influenza Type A (PCR) NEGATIVE (Negative) Influenza Type B (PCR) NEGATIVE (Negative) RSV RNA Qual (PCR) NEGATIVE (Negative) SARS-CoV-2 RNA (RT-PCR) POSITIVE A (Negative) Independent Interpretation I performed an independent interpretation of an: EKG (Sinus rhythm with premature supraventricular complexes. Rate of [address] segment elevations or depressions.) and Plain X-Ray (No focal infiltrates or large pleural effusions) Radiology Impression Discussion of test interpretation with radiology: I have reviewed the radiologist's reading. (No acute cardiopulmonary process) External Record Review External record reviewed: Outpatient record, Prior outpatient labs and Outside ED record Prescription Management I considered prescription management with: Antiviral Chronic Conditions Patient?s care impacted by: Hypertension Discharge Plan Discharge Clinical Impression: COVID-19 Patient Disposition: Home, Self-Care Instructions: COVID-19 (Coronavirus Disease 2019) (ED) Additional Instructions: You tested positive for COVID-19 Your workup in the ER today was reassuring. This includes your blood work, EKG, chest x-ray Your weakness and dizziness is likely related to the COVID virus Unfortunately, you do not meet criteria for Paxlovid treatment due to numerous medication reactions Return for new or worsening symptoms Prescriptions: No Action diltiazem HCl 180 mg capsule,extended release 24hr 180 mg PO DAILY Qty: 90 3RF Xarelto 20 mg tablet 20 mg PO QPM Qty: 90 3RF lidocaine 5 % cream 1 appl topical BID PRN (Reason: pain) Qty: 15 0RF diclofenac sodium 1 % gel 1 ea topical QID albuterol sulfate 90 mcg/actuation HFA aerosol inhaler 2 puff inhalation Q4H PRN (Reason: wheezing) ascorbic acid (vitamin C) 500 mg capsule PO nitric oxide gas 100 PPM gas inhalation tamsulosin 0.4 mg capsule 0.4 mg PO BID atorvastatin 20 mg tablet 20 mg PO DAILY olopatadine 0.1 % drops 1 drp ophthalmic (eye) ONCE carboxymethylcellulose sodium 0.5 % drops ophthalmic (eye) levetiracetam 1,000 mg tablet 750 mg PO BID citalopram 40 mg tablet 40 mg PO DAILY
--- NOTE | 2023-09-23 18:03 | ECG_ITS ---
Test Reason : SOB Blood Pressure : / mmHG Vent. Rate : 071 BPM Atrial Rate : 071 BPM P-R Int : 188 ms QRS Dur : 078 ms QT Int : 394 ms P-R-T Axes : 000 -06 003 degrees QTc Int : 428 ms Sinus rhythm with Premature supraventricular complexes Otherwise normal ECG When compared with ECG of 07-OCT-2022 12:56, Premature supraventricular complexes are now Present Referred By: Elidia Bright Electronically Signed By:Remington Johnson
[2023-09-23 19:12] LABS: MANUAL DIFF FLAG NO
[2023-09-23 19:13] LABS: Basophils Percent Auto 0.6 % (0-2); Eosinophils Absolute Auto 0.2 X10*3/uL (0.0-0.4); Eosinophils Percent Auto 2.4 % (0-4); Imm Gran Abs Auto 0.03 X10*3/uL (0.00-0.03); Imm Gran Pct Auto 0.5 % (0.0-0.4); Lymphocytes Absolute Auto 0.5 X10*3/uL (1.2-4.9); Mean Corpuscular HGB Conc 33.3 g/dl (31.0-36.0); Mean Corpuscular Hemoglobin 31.7 pg (27.0-33.0); Mean Platelet Volume 9.4 fL (9.4-12.4); Monocytes Absolute Auto 0.6 X10*3/uL (0.1-1.2); Monocytes Percent Auto 9.6 % (2-11); Neutrophils Percent Auto 78.9 % (45-73); Platelet Count 173 X10*3/uL (160-400); Red Blood Count 4.42 X10*6/uL (4.60-5.80); Red Cell Distribution Width 13.5 % (11.0-16.0); White Blood Count 6.4 X10*3/uL (4.8-10.8)
[2023-09-23 19:18] LABS: INTERNATIONAL NORM RATIO 2.3 (0.9-1.1); Prothrombin Time 27.6 SEC (11.1-13.3)
[2023-09-23 19:33] LABS: Alanine Aminotransferase 9 U/L (0-40); Alkaline Phosphatase 50 U/L (39-117); Anion Gap 13 (12-20); Aspartate Amino Transferase 15 U/L (5-37); Bilirubin Total 0.3 mg/dL (0.0-1.0); Blood Urea Nitrogen 13 mg/dL (9-16); Calcium 9.2 mg/dL (8.4-10.2); Carbon Dioxide 25 mmol/L (22-29); Chloride 103 mmol/L (96-108); Creatinine Clr Calc Pharmacy 78.1; Estimated Glomerular Filt Rate > 60; Glucose Random 113 mg/dL (60-115); Potassium 3.7 mmol/L (3.3-5.1); Sodium 137 mmol/L (135-145)
[2023-09-23 19:38] LABS: B Type Natriuretic Peptide 107 pg/mL (<100)
[2023-09-23 19:40] LABS: Troponin-I High Sensitivity 9.4 ng/L (<3.5-35.0)
[2023-09-23 19:55] LABS: Influenza A PCR NEGATIVE (Negative); Influenza B PCR NEGATIVE (Negative); Resp Syncy Virus RNA Qual PCR NEGATIVE (Negative); SARS COV2 PCR INHOUSE POSITIVE (Negative)
[2023-09-23 21:39] VITALS: BP 125/57; PULSE 66; RESP 16; TEMP 37; O2SAT 95
--- NOTE | 2023-09-23 21:43 | PC.NURSE ---
pt has a cough and report chest soreness and denies chest pain. pt sat 95% on room air with no s/s of distress.
[2023-09-23 22:52] VITALS: BP 136/61; PULSE 66; RESP 16; TEMP 37.1; O2SAT 94
== END 2023-09-23 23:06 | disposition home or self-care (01) ==
PROVIDERS: Registered Nurse Emergency; Emergency Provider Emergency Medicine; PCP Family Medicine
DX: U07.1 COVID-19 (principal); R42 Dizziness and giddiness; R06.02 Shortness of breath; R05.9 Cough, unspecified; I25.10 Atherosclerotic heart disease of native coronary artery without angina pectoris; Z79.01 Long term (current) use of anticoagulants; Z79.899 Other long term (current) drug therapy; Z87.891 Personal history of nicotine dependence
CPT/HCPCS: 0241U; 36415; 71046; 80053; 83880; 84484; 85025; 85610; 93005; 99283; 99284

== ENCOUNTER → 2023-09-23 18:03 | Outpatient (BNV) | payer OTHER, SELFPAY | PROVIDERS: Emergency Provider Emergency Medicine; PCP Family Medicine; Visit Provider Internal Medicine Cardiovascular Disease | DX: R06.02 Shortness of breath (principal) | CPT/HCPCS: 93010 ==

== ENCOUNTER 2023-10-12 12:45 | Emergency (ER) | payer OTHER, SELFPAY ==
--- NOTE | ~2023-10-12 | CT_ITS ---
EXAMINATION: CT ABDOMEN AND PELVIS WITHOUT CONTRAST CLINICAL INFORMATION: Constipation with question of small bowel obstruction COMPARISON: CTA abdomen pelvis 11/12/2015 TECHNIQUE: Multidetector volumetric imaging was performed from the superior aspect of the liver through the pubic symphysis. Sagittal and coronal reformatted images were obtained on the technologist's workstation. This CT examination was performed using dose optimization techniques as appropriate, variously including the following: *Automated exposure control *Adjustment of mA and/or kV according to patient size (this includes techniques or standardized protocols for targeted exams where dose is matched to indication/reason for exam; i.e. extremities or head) *Use of iterative reconstruction technique DLP: 793 mGy-cm FINDINGS: LUNG BASES: The visualized lung bases are unremarkable. LIVER, GALLBLADDER, AND BILIARY TREE: The liver is normal in size, shape, and attenuation. No focal hepatic lesion or biliary ductal dilatation is present. Status post cholecystectomy. PANCREAS: There is fatty atrophy of the pancreas. SPLEEN: A coarse of cortical calcification is present in the spleen. ADRENAL GLANDS: Unremarkable. KIDNEYS AND URETERS: The kidneys are normal in size, shape, and attenuation. No hydronephrosis, hydroureter, or calculi seen. No perinephric stranding. Multiple bilateral benign Bosniak class I renal cysts are noted which require no additional imaging or follow-up. No solid renal masses are seen. BLADDER: Unremarkable. GASTROINTESTINAL TRACT: The small and large bowel are unremarkable aside from scattered colonic diverticula without diverticulitis. The appendix is unremarkable. ABDOMINAL WALL: No significant hernia is appreciated. LYMPH NODES: No retroperitoneal lymphadenopathy. VASCULAR: Calcific atherosclerotic changes are present in the aorta and iliofemoral vessels. There is no evidence of an abdominal aortic aneurysm. PELVIC VISCERA: The prostate and seminal vesicles are unremarkable. OSSEOUS STRUCTURES: A right total hip prosthesis is present. Mild degenerative changes are present in the left hip. Degenerative changes are seen throughout the spine most marked from L2 through S1. No bony destructive lesions are seen. CT/CT abdomen pelvis wo IV con IMPRESSION: 1. A cause for the patient's constipation has not been found. 2. There is no evidence of small bowel obstruction. 3. Incidental note made of cholecystectomy, fatty atrophy of the pancreas, benign Bosniak class I renal cysts which need no additional imaging or follow-up, colonic diverticulosis without diverticulitis and degenerative changes in the spine and left hip. Fleischner guidelines were followed.
[2023-10-12 13:12] VITALS: BP 130/59; PULSE 65; RESP 14; TEMP 37.2; O2SAT 98; BMI 32.7
--- NOTE | 2023-10-12 13:14 | ED.GENADULT ---
HPI - General Adult General Chief complaint: Abdominal Pain Stated complaint: Bowel obstruction Time Seen by Provider: 10/12/23 20:24 History of Present Illness HPI narrative: The patient is an 83-year-old male who felt that he was constipated several weeks ago. He ultimately was able to have a bowel movement about a week ago and felt better but has not had another 1 in the meantime. He has been using polyethylene glycol intermittently. He has a generalized sense of feeling bloated and uncomfortable but no focal abdominal pain. No nausea or vomiting. No fever, sweats, chills. Related Data Home Medications Medication Instructions Recorded Confirmed diclofenac sodium 1 % topical gel 1 ea topical QID 06/11/20 04/19/23 albuterol sulfate 90 mcg/actuation 2 puff inhalation Q4H PRN wheezing 12/12/20 04/19/23 aerosol inhaler ascorbic acid (vitamin C) 500 mg mg PO 05/22/21 04/19/23 capsule nitric oxide gas 100 PPM for ea inhalation 05/22/21 04/19/23 inhalation atorvastatin 20 mg tablet 20 mg PO DAILY 11/25/21 04/19/23 tamsulosin 0.4 mg capsule 0.4 mg PO BID 11/25/21 04/19/23 carboxymethylcellulose sodium 0.5 drp ophthalmic (eye) 03/12/22 04/19/23 % eye drops olopatadine 0.1 % eye drops 1 drp ophthalmic (eye) ONCE 03/12/22 04/19/23 citalopram 40 mg tablet 40 mg PO DAILY 04/19/23 04/19/23 levetiracetam 1,000 mg tablet 750 mg PO BID 04/19/23 04/19/23 Previous Rx's Medication Instructions Recorded lidocaine 5 % topical cream 1 appl topical BID PRN pain #15 05/12/22 grams diltiazem HCl 180 mg 180 mg PO DAILY #90 caps 05/17/23 capsule,extended release 24 hr rivaroxaban 20 mg tablet (Xarelto) 20 mg PO QPM #90 tabs 07/13/23 Allergies Allergy/AdvReac Type Severity Reaction Status Date / Time penicillin V Allergy Severe Hives Verified 03/12/22 10:36 piroxicam [PIROXICAM] Allergy Intermediate HIVES/SOB Verified 03/12/22 10:36 rofecoxib [From VIOXX] Allergy Intermediate HIVES/SOB Verified 03/12/22 10:36 Penicillins [PENICILLINS] Allergy Unknown UNKNOWN Verified 03/12/22 10:36 phenacetin [PHENACETIN] Allergy Unknown UNK Verified 03/12/22 10:36 From VICODIN Allergy Intermediate HIVES/SOB Uncoded 03/12/22 10:36 Review of Systems Review of Systems: Yes all other systems are reviewed and are negative [facility] Past Medical History Medical History CAD (coronary artery disease) Seizure disorder Paroxysmal atrial fibrillation HTN (hypertension) Surgical History History of left knee surgery History of right hip replacement History of ear surgery S/P skin biopsy Social History Social History Alcohol intake: current Alcohol intake frequency: holidays/special occasions only Alcohol type: beer Patient Tobacco Use Status: Former Tobacco user Quit Date: 1999 Smoked: 30 +/- Smoked in Last 30 Days: No Use of substances other than those prescribed or required for medical reasons: No Advance Directives: No Physical Exam ED Vital Signs: Vital Signs - 24 hr 10/12/23 20:03 10/12/23 22:06 Temperature 98.5 F 98.8 F Pulse Rate 62 68 Respiratory Rate 18 14 Blood Pressure 128/66 122/68 Pulse Oximetry 96 99 Oxygen Delivery Method Room Air Room Air BMI result Body Mass Index 32.7 Const Other: The patient is awake and alert, pleasant and cooperative, he does not appear acutely ill. HENMT Other: Face is symmetrical. Mucous membranes moist Eyes Other: Pupils are round equal, conjunctivae clear Neck Other: No JVD Resp Effort & Inspection: normal respiratory effort Auscultation: clear to auscultation bilaterally Cardio Rate: regular rate Rhythm: regular rhythm Heart sounds: S1 normal heart sound present and S2 normal heart sound present GI Other: Abdomen is somewhat protuberant but not focally tender. Rectal exam showed good rectal tone. No significant amount of stool in the rectal vault. No impaction. Stool was light brown and normal in color. Skin Other: Skin is pale and dry Neuro Other: The patient is awake and alert, pleasant cooperative. Normal function of cranial nerves and the arms. His legs seem chronically weak Extrem Other: No peripheral edema Course Course Course Narrative: RME: 83 yold male presents to the ED for constipation for the past 9 days. Patient states passing gas. labs, Abdominal CT scan ordered and SARS ordered Medications Administered Discontinued Medications Generic Name Dose Route Start Last Admin Trade Name Fretessa PRN Reason Stop Dose Admin Sodium Biphosphate/Sodium Phosphate 133 ml 10/12/23 20:31 10/12/23 20:58 Sodium Phosphate,[place]-Dibasic 133 Ml Enema GA 10/12/23 20:32 133 ml ONCE ONE Administration Medical Decision Making Medical Decision Making [facility] Narrative: The patient presents with constipation. He was given a Fleet enema with excellent results. He will be discharged to continue polyethylene glycol at home and should follow up with his regular doctor Lab Data 10/12/23 14:27 10/12/23 14:27 Labs: Lab Results 10/12/23 10/12/23 Range/Units 14:27 21:18 WBC 6.2 (4.8-10.8) X10*3/uL RBC 3.94 L (4.60-5.80) X10*6/uL Hgb 13.0 L (14.0-18.0) g/dl Hct 37.7 L (42.0-52.0) % MCV 95.7 (80.0-98.0) fL MCH 33.0 (27.0-33.0) pg MCHC 34.5 (31.0-36.0) g/dl RDW 13.3 (11.0-16.0) % Plt Count 190 (160-400) X10*3/uL MPV 9.8 (9.4-12.4) fL Immature Gran % (Auto) 0.5 H (0.0-0.4) % Neut % (Auto) 65.9 (45-73) % Lymph % (Auto) 19.5 L (20-40) % [place] % (Auto) 10.0 (2-11) % Eos % (Auto) 3.5 (0-4) % Baso % (Auto) 0.6 (0-2) % Lymph # (Auto) 1.2 (1.2-4.9) X10*3/uL [place] # (Auto) 0.6 (0.1-1.2) X10*3/uL Eos # (Auto) 0.2 (0.0-0.4) X10*3/uL Baso # (Auto) 0.0 (0.0-0.2) X10*3/uL Abs Immat Gran (auto) 0.03 (0.00-0.03) X10*3/uL Absolute Neuts (auto) 4.1 (2.0-8.3) x10*3/uL Absolute Nucleated RBC 0.000 (0.0-0.012) X10*3/uL Nucleated RBC % (auto) 0.0 (0.0-0.2) /100WBC Sodium 140 (135-145) mmol/L Potassium 4.5 D (3.3-5.1) mmol/L Chloride 106 (96-108) mmol/L Carbon Dioxide 27 (22-29) mmol/L Anion Gap 12 (12-20) BUN 16 (9-16) mg/dL Creatinine 0.75 (0.5-1.4) mg/dL Estim Creat Clear Calc 87.2 Estimated GFR > 60 Random Glucose 85 (60-115) mg/dL Calcium 9.3 (8.4-10.2) mg/dL Total Bilirubin 0.5 (0.0-1.0) mg/dL AST 15 (5-37) U/L ALT 10 (0-40) U/L Alkaline Phosphatase 54 (39-117) U/L Total Protein 6.7 (6.5-8.0) g/dL Albumin 3.8 (3.5-5.0) g/dL Lipase 8 (8-78) U/L Urine Color Yellow Urine Appearance Clear Urine pH 6.0 (5.0-9.0) Ur Specific [place] 1.020 (1.005-1.025) Urine Protein Negative (Neg-Trace) mg/dL Urine Glucose (UA) Negative (Negative) mg/dL Urine Ketones Negative (Negative) mg/dL Urine Blood Negative (Negative) Urine Nitrite Negative (Negative) Ur Leukocyte Esterase Negative (Negative) Influenza Type A (PCR) NEGATIVE (Negative) Influenza Type B (PCR) NEGATIVE (Negative) RSV RNA Qual (PCR) NEGATIVE (Negative) SARS-CoV-2 RNA (RT-PCR) NEGATIVE (Negative) Discharge Plan Discharge Clinical Impression: Acute constipation Patient Disposition: Home, Self-Care Instructions: Constipation (ED) Additional Instructions: Polyethylene glycol you have been taking. Take 17 g in 8 oz of water for at least a month (unless you develop significant loose stools). You can also take Metamucil daily. Please follow up with your regular doctor to discuss this issue further. Return to the emergency room if worse. Prescriptions: No Action diltiazem HCl 180 mg capsule,extended release 24hr 180 mg PO DAILY Qty: 90 3RF Xarelto 20 mg tablet 20 mg PO QPM Qty: 90 3RF lidocaine 5 % cream 1 appl topical BID PRN (Reason: pain) Qty: 15 0RF diclofenac sodium 1 % gel 1 ea topical QID albuterol sulfate 90 mcg/actuation HFA aerosol inhaler 2 puff inhalation Q4H PRN (Reason: wheezing) ascorbic acid (vitamin C) 500 mg capsule PO nitric oxide gas 100 PPM gas inhalation tamsulosin 0.4 mg capsule 0.4 mg PO BID atorvastatin 20 mg tablet 20 mg PO DAILY olopatadine 0.1 % drops 1 drp ophthalmic (eye) ONCE carboxymethylcellulose sodium 0.5 % drops ophthalmic (eye) levetiracetam 1,000 mg tablet 750 mg PO BID citalopram 40 mg tablet 40 mg PO DAILY Referrals: Grabiel Kasper MD [Primary Care Provider] - (Constipation) Interventions: ED Discharge Assessment Last Done: 10/12/23 22:06 Discharge Date/Time: 10/12/23 22:12
[2023-10-12 14:32] LABS: MANUAL DIFF FLAG NO
[2023-10-12 14:35] LABS: Basophils Percent Auto 0.6 % (0-2); Eosinophils Absolute Auto 0.2 X10*3/uL (0.0-0.4); Eosinophils Percent Auto 3.5 % (0-4); Hematocrit 37.7 % (42.0-52.0); Imm Gran Abs Auto 0.03 X10*3/uL (0.00-0.03); Imm Gran Pct Auto 0.5 % (0.0-0.4); Lymphocytes Absolute Auto 1.2 X10*3/uL (1.2-4.9); Lymphocytes Percent Auto 19.5 % (20-40); Mean Corpuscular HGB Conc 34.5 g/dl (31.0-36.0); Mean Corpuscular Volume 95.7 fL (80.0-98.0); Mean Platelet Volume 9.8 fL (9.4-12.4); Monocytes Absolute Auto 0.6 X10*3/uL (0.1-1.2); Neutrophils Absolute Auto 4.1 x10*3/uL (2.0-8.3); Neutrophils Percent Auto 65.9 % (45-73); Platelet Count 190 X10*3/uL (160-400); Red Blood Count 3.94 X10*6/uL (4.60-5.80); Red Cell Distribution Width 13.3 % (11.0-16.0); White Blood Count 6.2 X10*3/uL (4.8-10.8)
[2023-10-12 15:00] LABS: Alanine Aminotransferase 10 U/L (0-40); Albumin Level 3.8 g/dL (3.5-5.0); Alkaline Phosphatase 54 U/L (39-117); Anion Gap 12 (12-20); Aspartate Amino Transferase 15 U/L (5-37); Bilirubin Total 0.5 mg/dL (0.0-1.0); Blood Urea Nitrogen 16 mg/dL (9-16); Calcium 9.3 mg/dL (8.4-10.2); Carbon Dioxide 27 mmol/L (22-29); Chloride 106 mmol/L (96-108); Creatinine Clr Calc Pharmacy 87.2; Estimated Glomerular Filt Rate > 60; Glucose Random 85 mg/dL (60-115); Lipase 8 U/L (8-78); Potassium 4.5 mmol/L (3.3-5.1); Sodium 140 mmol/L (135-145); Total Protein 6.7 g/dL (6.5-8.0)
[2023-10-12 15:32] LABS: Influenza A PCR NEGATIVE (Negative); Influenza B PCR NEGATIVE (Negative); Resp Syncy Virus RNA Qual PCR NEGATIVE (Negative); SARS COV2 PCR INHOUSE NEGATIVE (Negative)
[2023-10-12 20:03] VITALS: BP 128/66; PULSE 62; RESP 18; TEMP 36.9; O2SAT 96
[2023-10-12] MEDS: Sodium Phosphate,Mono-Dibasic 133 ML ENEMA PR (20:58)
--- NOTE | 2023-10-12 21:01 | PC.NURSE ---
MD gave fleet enema, pt reports positive effect
[2023-10-12 21:28] LABS: Appearance Urine Clear; Color Urine Yellow; Glucose Urine UA Negative (Negative); Leukocyte Esterase Urine Negative (Negative); Nitrite Urine Negative (Negative); Urine Blood Negative (Negative); Urine Ketones Negative (Negative); Urine Protein Negative (Neg-Trace)
[2023-10-12 22:06] VITALS: BP 122/68; PULSE 68; RESP 14; TEMP 37.1; O2SAT 99
== END 2023-10-12 22:12 | disposition home or self-care (01) ==
PROVIDERS: Physician Assistant; Emergency Provider Emergency Medicine; PCP Family Medicine
DX: K59.00 Constipation, unspecified (principal); R14.0 Abdominal distension (gaseous); R10.9 Unspecified abdominal pain; Z11.52 Encounter for screening for COVID-19; Z20.822 Contact with and (suspected) exposure to COVID-19; Z79.899 Other long term (current) drug therapy
CPT/HCPCS: 0241U; 36415; 74176; 80053; 81003; 83690; 85025; 99284

== ENCOUNTER 2023-11-13 08:29 | Emergency (ER) | payer OTHER, SELFPAY ==
[2023-11-13] VITALS (8 sets, daily range): BP systolic 121–140; BP diastolic 55–87; PULSE 53–63; RESP 15–18; TEMP 36.6–36.8; O2SAT 94–98; BMI 31.1
--- NOTE | ~2023-11-13 | XR_ITS ---
EXAMINATION: XR CHEST CLINICAL INFORMATION: Chest pressure COMPARISON: Chest radiograph from 09/23/2023 TECHNIQUE: Frontal view of the chest was obtained. FINDINGS: Chronic interstitial lung markings. Bibasilar atelectasis. No pneumothorax. Trachea is midline. Cardiac mediastinal silhouette is not enlarged. Aorta demonstrates atherosclerotic calcific patient. No large pleural effusion. Multilevel degenerative changes of the thoracolumbar spine. Soft tissues are unremarkable. XR/XR chest 1V IMPRESSION: 1. Chronic interstitial lung markings. 2. Bibasilar atelectasis.
--- NOTE | ~2023-11-13 | CT_ITS ---
EXAMINATION: CT HEAD WITHOUT CONTRAST CLINICAL INFORMATION: Dizziness COMPARISON: MRI head from 12/03/2022, CT head from 08/07/2021 TECHNIQUE: Contiguous axial imaging was performed from the skull base to vertex without intravenous administration of contrast. This CT examination was performed using dose optimization techniques as appropriate, variously including the following: *Automated exposure control *Adjustment of mA and/or kV according to patient size (this includes techniques or standardized protocols for targeted exams where dose is matched to indication/reason for exam; i.e. extremities or head) *Use of iterative reconstruction technique DLP: 706 mGy-cm FINDINGS: There is no evidence of acute intracranial hemorrhage or territorial infarction. Chronic white matter small vessel ischemic changes. Cerebral atrophy. No abnormal mass effect or midline shift is seen. Up to white matter differentiation is well preserved. No extra-axial fluid collections are identified. The ventricles are normal in size. There is no abnormal attenuation within the brain parenchyma. The osseous structures and soft tissues are normal. The mastoid air cells and visualized portions of the paranasal sinuses are well aerated. Atherosclerotic calcifications. CT/CT head/brain wo IV con IMPRESSION: 1. No acute intracranial pathology. 2. Chronic white matter small vessel ischemic changes.
--- NOTE | 2023-11-13 08:32 | ECG_ITS ---
Test Reason : CHEST PRESSURE Blood Pressure : / mmHG Vent. Rate : 059 BPM Atrial Rate : 059 BPM P-R Int : 218 ms QRS Dur : 080 ms QT Int : 424 ms P-R-T Axes : 003 000 047 degrees QTc Int : 419 ms Sinus bradycardia with 1st degree A-V block Otherwise normal ECG When compared with ECG of 23-SEP-2023 18:46, Premature supraventricular complexes are no longer Present DE interval has increased Referred By: Herlinda Gagnon Electronically Signed By:IRENE THOMPSON MD
--- NOTE | 2023-11-13 09:10 | ED_ITS ---
HPI - Dizziness General Chief Complaint: Dizziness Stated Complaint: CHEST PRESSURE Time Seen by Provider: 11/13/23 08:31 Source: patient Mode of arrival: ambulatory History of Present Illness HPI Narrative: 83-year-old male who arrives via EMS with reports of 1 week of experiencing dizziness and lightheadedness for approximately 10 minutes associated with nausea as well as upper left-sided chest discomfort and last episode occurred today. Patient has taken all home medications, reports that he is otherwise been feeling well and denies any associated fever, chills, diarrhea or urinary symptoms. He denies any recent medication changes. Patient states that this morning he experienced double vision which has resolved and denies any current chest pain. Related Data Home Medications ?Medication ?Instructions ?Recorded ?Confirmed diclofenac sodium 1 % topical gel 1 ea topical QID 06/11/20 04/19/23 albuterol sulfate 90 mcg/actuation 2 puff inhalation Q4H PRN wheezing 12/12/20 04/19/23 aerosol inhaler ascorbic acid (vitamin C) 500 mg mg PO 05/22/21 04/19/23 capsule nitric oxide gas 100 PPM for ea inhalation 05/22/21 04/19/23 inhalation atorvastatin 20 mg tablet 20 mg PO DAILY 11/25/21 04/19/23 tamsulosin 0.4 mg capsule 0.4 mg PO BID 11/25/21 04/19/23 carboxymethylcellulose sodium 0.5 drp ophthalmic (eye) 03/12/22 04/19/23 % eye drops olopatadine 0.1 % eye drops 1 drp ophthalmic (eye) ONCE 03/12/22 04/19/23 citalopram 40 mg tablet 40 mg PO DAILY 04/19/23 04/19/23 levetiracetam 1,000 mg tablet 750 mg PO BID 04/19/23 04/19/23 Previous Rx's ?Medication ?Instructions ?Recorded lidocaine 5 % topical cream 1 appl topical BID PRN pain #15 05/12/22 grams diltiazem HCl 180 mg 180 mg PO DAILY #90 caps 05/17/23 capsule,extended release 24 hr rivaroxaban 20 mg tablet (Xarelto) 20 mg PO QPM #90 tabs 07/13/23 Allergies Allergy/AdvReac Type Severity Reaction Status Date / Time penicillin V Allergy Severe Hives Verified 11/13/23 08:57 piroxicam [PIROXICAM] Allergy Intermediate HIVES/SOB Verified 11/13/23 08:57 rofecoxib [From VIOXX] Allergy Intermediate HIVES/SOB Verified 11/13/23 08:57 Penicillins [PENICILLINS] Allergy Unknown UNKNOWN Verified 11/13/23 08:57 phenacetin [PHENACETIN] Allergy Unknown UNK Verified 11/13/23 08:57 From VICODIN Allergy Intermediate HIVES/SOB Uncoded 03/12/22 10:36 Review of Systems 2 Review of Systems: Pertinent positives and negatives as stated in [facility] Past Medical History Source: nursing notes reviewed Medical History CAD (coronary artery disease) Seizure disorder Paroxysmal atrial fibrillation HTN (hypertension) Surgical History History of left knee surgery History of right hip replacement History of ear surgery S/P skin biopsy Social History Social History Alcohol intake: current Alcohol intake frequency: holidays/special occasions only Alcohol type: beer Patient Tobacco Use Status: Former Tobacco user Quit Date: 1999 Smoked: 30 +/- Smoked in Last 30 Days: No Use of substances other than those prescribed or required for medical reasons: No Advance Directives: No Advance Directives Information Provided: No Do you have a plan to hurt others: No Plan Physical Exam 2 Vital Signs: Vital Signs: Last Vital Signs Temp 98 F 11/13/23 11:51 Pulse 53 11/13/23 11:51 Resp 18 11/13/23 11:51 BP 124/60 11/13/23 11:51 Pulse Ox 94 11/13/23 11:51 O2 Del Method Room Air 11/13/23 11:51 BMI result Body Mass Index 31.1 VITAL SIGNS: Reviewed. GENERAL: Well developed, well nourished, in no acute distress. HEAD: Normocephalic/atraumatic EYES: PERRLA, EOMI EARS: Ext canals without abnormality NOSE: Nares patent bilateral OROPHARYNX: no oral lesions noted, posterior pharynx clear NECK: Supple, no adenopathy LUNGS: Normal breath sounds. No adventitious sounds or accessory muscle use. CARDIOVASCULAR: Regular rate and rhythm without noted murmurs, no JVD or lower extremity edema. ABDOMEN: Soft, non-tender, non-distended with bowel sounds. MUSCULOSKELETAL: No tenderness, deformities, or effusions noted on gross inspection. EXTREMITIES: No cyanosis, clubbing or edema. SKIN: Inspection of the skin reveals no rashes NEUROLOGIC: Alert and oriented x 4. Strength and sensation to light touch were grossly intact x 4, no facial asymmetry, no pronator drift, no double vision, cranial nerves 2-12 are grossly intact. Medical Decision Making Medical Decision Making [facility] Narrative: 83-year-old male with history and clinical presentation, DDX: Postural hypotension possibly secondary to poor fluid intake, will rule out ACS and CHF. I reviewed all investigations and hematologic indices are chronically stable without leukocytosis/thrombocytopenia and there is a normocytic anemia. Coagulation studies are mildly elevated and reflect current use of chronic anticoagulation. Chemistry indices are negative for DARIUS/electrolyte or liver enzyme derangements and high sensitivity troponin is undetectable. EKG without acute changes, chest x-ray without evidence of infiltrate or venous congestion otherwise my interpretation is in agreement with radiology's impression. CT scan not significant for intracranial hemorrhage or mass effect. Orthostatics are negative. My interpretation is patient may be experiencing benign lightheadedness 1st thing in the morning as there has been no evidence to suggest underlying arrhythmia/volume abnormality/infection and no evidence to suggest intracranial hemorrhage and otherwise patient is nonfocal. Will obtain urinalysis and then discharged patient home with instructions to follow-up with Dr. Blake. Urinalysis negative for UTI or hematuria, patient is tolerating oral intake and is otherwise discharged. Differential Diagnosis Differential Diagnoses: The differential diagnosis associated with the presentation includes Please see the discussion above Admission/Observation Consideration of admission/observation: Escalation of care including admission/observation considered Please see the discussion above Lab Data [facility] Lab Attestation statement: I reviewed the patient's lab results. Please see the discussion above 11/13/23 09:13 11/13/23 09:13 Labs: Lab Results 11/13/23 11/13/23 Range/Units 09:13 11:56 WBC 6.0 (4.8-10.8) X10*3/uL RBC 4.18 L (4.60-5.80) X10*6/uL Hgb 13.7 L (14.0-18.0) g/dl Hct 40.1 L (42.0-52.0) % MCV 95.9 (80.0-98.0) fL MCH 32.8 (27.0-33.0) pg MCHC 34.2 (31.0-36.0) g/dl RDW 13.7 (11.0-16.0) % Plt Count 183 (160-400) X10*3/uL MPV 9.8 (9.4-12.4) fL Immature Gran % (Auto) 0.2 (0.0-0.4) % Neut % (Auto) 75.6 H (45-73) % Lymph % (Auto) 13.0 L (20-40) % [place] % (Auto) 7.0 (2-11) % Eos % (Auto) 3.5 (0-4) % Baso % (Auto) 0.7 (0-2) % Lymph # (Auto) 0.8 L (1.2-4.9) X10*3/uL [place] # (Auto) 0.4 (0.1-1.2) X10*3/uL Eos # (Auto) 0.2 (0.0-0.4) X10*3/uL Baso # (Auto) 0.0 (0.0-0.2) X10*3/uL Abs Immat Gran (auto) 0.01 (0.00-0.03) X10*3/uL Absolute Neuts (auto) 4.6 (2.0-8.3) x10*3/uL Absolute Nucleated RBC 0.000 (0.0-0.012) X10*3/uL Nucleated RBC % (auto) 0.0 (0.0-0.2) /100WBC PT 19.4 H D (11.1-13.3) SEC INR 1.6 H (0.9-1.1) Sodium 140 (135-145) mmol/L Potassium 4.1 (3.3-5.1) mmol/L Chloride 105 (96-108) mmol/L Carbon Dioxide 29 (22-29) mmol/L Anion Gap 10 L (12-20) BUN 14 (9-16) mg/dL Creatinine 0.75 (0.5-1.4) mg/dL Estim Creat Clear Calc 85.0 Estimated GFR > 60 Random Glucose 104 (60-115) mg/dL Calcium 9.2 (8.4-10.2) mg/dL Total Bilirubin 0.6 (0.0-1.0) mg/dL AST 14 (5-37) U/L ALT 9 (0-40) U/L Alkaline Phosphatase 52 (39-117) U/L Troponin I High Sens < 2.7 D (<3.5-35.0) ng/L Total Protein 6.8 (6.5-8.0) g/dL Albumin 3.9 (3.5-5.0) g/dL Urine Color Yellow Urine Appearance Clear Urine pH 6.5 (5.0-9.0) Ur Specific [place] 1.015 (1.005-1.025) Urine Protein Negative (Neg-Trace) mg/dL Urine Glucose (UA) Negative (Negative) mg/dL Urine Ketones Negative (Negative) mg/dL Urine Blood Negative (Negative) Urine Nitrite Negative (Negative) Ur Leukocyte Esterase Negative (Negative) Independent Interpretation I performed an independent interpretation of an: EKG Interpretation: Sinus bradycardia with first-degree AV block (this is a change from EKG 09/23/2023), HR-59, no STEMI, ID-to 18, QRS/QTC are within normal limits. The first-degree block is new. Radiology Impression Discussion of test interpretation with radiology: I have reviewed the radiologist's reading. Radiologist Impression: Please see the discussion above External Record Review External record reviewed: Outpatient record, Prior outpatient labs and Prior outpatient radiology Chronic Conditions Patient?s care impacted by: Hypertension Atrial fibrillation, chronic anticoagulation Critical Care Time Critical Care Time Critical Care Time: Yes Total Critical Care Time: 45 Attestation: I personally attest to this time spent taking care of the patient. Discharge Plan Discharge Clinical Impression: Light-headedness, Atypical chest pain Patient Disposition: Home, Self-Care Instructions: Lightheadedness (ED) Additional Instructions: 1. Resume all home medications as prescribed. 2. 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 Return to the ER for any worsening symptoms. Prescriptions: No Action diltiazem HCl 180 mg capsule,extended release 24hr 180 mg PO DAILY Qty: 90 3RF Xarelto 20 mg tablet 20 mg PO QPM Qty: 90 3RF lidocaine 5 % cream 1 appl topical BID PRN (Reason: pain) Qty: 15 0RF diclofenac sodium 1 % gel 1 ea topical QID albuterol sulfate 90 mcg/actuation HFA aerosol inhaler 2 puff inhalation Q4H PRN (Reason: wheezing) ascorbic acid (vitamin C) 500 mg capsule PO nitric oxide gas 100 PPM gas inhalation tamsulosin 0.4 mg capsule 0.4 mg PO BID atorvastatin 20 mg tablet 20 mg PO DAILY olopatadine 0.1 % drops 1 drp ophthalmic (eye) ONCE carboxymethylcellulose sodium 0.5 % drops ophthalmic (eye) levetiracetam 1,000 mg tablet 750 mg PO BID citalopram 40 mg tablet 40 mg PO DAILY Referrals: Grabiel Kasper MD [Primary Care Provider] - Lazaro Blake MD [Physician] - Print Language: Iraqi
[2023-11-13 09:18] LABS: MANUAL DIFF FLAG NO
[2023-11-13 09:21] LABS: Basophils Percent Auto 0.7 % (0-2); Eosinophils Absolute Auto 0.2 X10*3/uL (0.0-0.4); Eosinophils Percent Auto 3.5 % (0-4); Hematocrit 40.1 % (42.0-52.0); Hemoglobin 13.7 g/dl (14.0-18.0); Imm Gran Abs Auto 0.01 X10*3/uL (0.00-0.03); Imm Gran Pct Auto 0.2 % (0.0-0.4); Lymphocytes Absolute Auto 0.8 X10*3/uL (1.2-4.9); Mean Corpuscular HGB Conc 34.2 g/dl (31.0-36.0); Mean Corpuscular Hemoglobin 32.8 pg (27.0-33.0); Mean Corpuscular Volume 95.9 fL (80.0-98.0); Mean Platelet Volume 9.8 fL (9.4-12.4); Monocytes Absolute Auto 0.4 X10*3/uL (0.1-1.2); Neutrophils Absolute Auto 4.6 x10*3/uL (2.0-8.3); Neutrophils Percent Auto 75.6 % (45-73); Platelet Count 183 X10*3/uL (160-400); Red Blood Count 4.18 X10*6/uL (4.60-5.80); Red Cell Distribution Width 13.7 % (11.0-16.0)
[2023-11-13 09:26] LABS: INTERNATIONAL NORM RATIO 1.6 (0.9-1.1); Prothrombin Time 19.4 SEC (11.1-13.3)
[2023-11-13 09:33] LABS: Alanine Aminotransferase 9 U/L (0-40); Albumin Level 3.9 g/dL (3.5-5.0); Alkaline Phosphatase 52 U/L (39-117); Anion Gap 10 (12-20); Aspartate Amino Transferase 14 U/L (5-37); Bilirubin Total 0.6 mg/dL (0.0-1.0); Blood Urea Nitrogen 14 mg/dL (9-16); Calcium 9.2 mg/dL (8.4-10.2); Carbon Dioxide 29 mmol/L (22-29); Chloride 105 mmol/L (96-108); Estimated Glomerular Filt Rate > 60; Glucose Random 104 mg/dL (60-115); Potassium 4.1 mmol/L (3.3-5.1); Sodium 140 mmol/L (135-145); Total Protein 6.8 g/dL (6.5-8.0)
[2023-11-13 09:41] LABS: Troponin-I High Sensitivity < 2.7 ng/L (<3.5-35.0)
[2023-11-13 12:03] LABS: Appearance Urine Clear; Color Urine Yellow; Glucose Urine UA Negative (Negative); Leukocyte Esterase Urine Negative (Negative); Nitrite Urine Negative (Negative); PH 6.5 (5.0-9.0); Specific Gravity - Urine 1.015 (1.005-1.025); Urine Blood Negative (Negative); Urine Ketones Negative (Negative); Urine Protein Negative (Neg-Trace)
== END 2023-11-13 12:28 | disposition home or self-care (01) ==
PROVIDERS: Emergency Provider Student in an Organized Health Care Education/Training Program; PCP Family Medicine
DX: R42 Dizziness and giddiness (principal); R07.89 Other chest pain; I10 Essential (primary) hypertension; I48.0 Paroxysmal atrial fibrillation; G40.909 Epilepsy, unspecified, not intractable, without status epilepticus
CPT/HCPCS: 36415; 70450; 71045; 80053; 81003; 84484; 85025; 85610; 93005; 99284; 99285

== ENCOUNTER → 2023-11-13 08:32 | Outpatient (BNV) | payer OTHER, SELFPAY | PROVIDERS: Emergency Provider Student in an Organized Health Care Education/Training Program; PCP Family Medicine; Visit Provider Internal Medicine Cardiovascular Disease | DX: R00.1 Bradycardia, unspecified (principal) | CPT/HCPCS: 93010 ==

== ENCOUNTER 2023-12-02 13:23 | Outpatient (AMB) | payer OTHER, SELFPAY ==
[2023-12-02 13:31] VITALS: BP 124/62; PULSE 69; BMI 32.4
--- NOTE | 2023-12-02 13:31 | A.OFFVIS_ITS ---
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 Required: No Biomedical Specialist: Biomedical Specialist Present Allergies penicillin V Allergy (Severe, Verified 12/02/23 13:34) Hives piroxicam [PIROXICAM] Allergy (Intermediate, Verified 12/02/23 13:34) HIVES/SOB rofecoxib [From VIOXX] Allergy (Intermediate, Verified 12/02/23 13:34) HIVES/SOB Penicillins [PENICILLINS] Allergy (Unknown, Verified 12/02/23 13:34) UNKNOWN phenacetin [PHENACETIN] Allergy (Unknown, Verified 12/02/23 13:34) UNK From VICODIN Allergy (Intermediate, Uncoded 12/02/23 13:34) HIVES/SOB HPI HPI follow-up [facility] [place]: Details: mR is an 83-year-old male with past medical history of hypertension, paroxysmal atrial fibrillation, nonobstructive coronary disease who was recently seen in the emergency room for lightheadedness, nausea and discomfort in his chest. He ruled out for ACS. He now presents for follow-up. Today he reports that on the day he went to the emergency room he was feeling lightheaded. He was having some double vision. He had a pressure-like sensation in his mid chest. The episode did not last long and resolved on its own. He has not had any recurrent symptoms like this. He denies getting chest discomfort at rest or with activity. No presyncope, syncope, falls. No shortness of breath, PND, orthopnea or concern edema. He does get some mild swelling on the left ankle which is not new. He ambulates with a cane. No bleeding issues reported. Taking meds as directed. Family member present. [facility] Medical History CAD (coronary artery disease) Seizure disorder Paroxysmal atrial fibrillation HTN (hypertension) Surgical History History of left knee surgery History of right hip replacement History of ear surgery S/P skin biopsy Social History Alcohol intake: current Alcohol intake frequency: holidays/special occasions only Alcohol type: beer Patient Tobacco Use Status: Former Tobacco user Quit Date: 1999 Smoked: 30 +/- Review of Systems Const All systems reviewed & are unremarkable except as noted in HPI and below ENT Details: on episode of lightheadedness, nausea, chest discomfort Reports dizziness Card Reports chest pain, Denies chest pain at rest, Denies chest pain with activity, Denies rapid heart rate, Denies pedal edema, Denies edema, Denies leg edema, Denies lightheadedness, Denies palpitations, Denies dyspnea, Denies dyspnea on exertion and Denies orthopnea Resp Denies cough, Denies dyspnea and Denies dyspnea on exertion GI Denies hematochezia and Denies change in stool character Musc Reports abnormal gait (uses cane), Denies limited range of motion, Denies muscle cramps, Denies muscle weakness, Denies numbness, Denies radiating pain into limb, Denies stiffness and Denies tingling Neuro Reports abnormal gait (uses cane), Reports dizziness, Denies numbness and Denies tingling Endo Denies palpitations Physical Exam Vital Signs: Last Vital Signs Pulse 69 12/02/23 13:31 BP 124/62 12/02/23 13:31 BMI result Body Mass Index 32.4 Const General: cooperative, healthy appearing, comfortable and no acute distress Orientation/consciousness: patient oriented x3 Neck Neck: Yes normal visual inspection and Yes no JVD Resp Effort & Inspection: normal respiratory effort Auscultation: clear to auscultation bilaterally, no crackles, no rales, no rhonchi and no wheezes Cardio Jugular venous distension: no JVD Rate: regular rate Rhythm: regular rhythm Heart sounds: S1 normal heart sound present, S2 normal heart sound present, no murmurs and no rubs Neuro General: patient oriented x3 Extrem General: Yes normal to inspection and No no pedal edema Psych Appearance: grossly normal Mental Status: mental status grossly normal Speech and movement: Normal speech and movement present Assessment & Plan Assessment & Plan (1) Chest pain: Code(s): R07.9 - Chest pain, unspecified Category: Medical Plan: Report of an episode of lightheadedness, double vision, discomfort in his chest lasting several minutes. This prompted ER evaluation showing no acute findings. He ruled out for ACS. EKG showed sinus rhythm with first-degree AV block, no acute ST or T-wave abnormalities, rate 59. His symptoms have not reoccurred. Does have a known history of nonobstructive coronary artery disease and is on med management. At this time no anginal sounding symptoms. Offered nuclear stress test to evaluate for ischemia and he declines. He says he is currently feeling well and if he does have recurrent symptoms he will then agreed to the nuclear stress test. Signs and symptoms of angina reviewed with him. Will have him continue atorvastatin with ideal LDL goal less than 70. Continue diltiazem and Lasix. He has not on aspirin as he is on Xarelto. Cardiology follow-up in 3 months, sooner if needed. (2) Light-headedness: Code(s): R42 - Dizziness and giddiness Category: Medical Plan: As above (3) Paroxysmal atrial fibrillation: Code(s): I48.0 - Paroxysmal atrial fibrillation Category: Medical Plan: History of paroxysmal atrial fibrillation. Clinically suppressed. EKG done at time of ER visit on 11/13/2023 showed sinus rhythm. Pulse is regular on examination today. Will have him continue diltiazem for rate control. Continue Xarelto for anticoagulation. Labs from 11/13/2023 showed creatinine 0.75. Hematocrit 40.1. (4) HTN (hypertension): Code(s): I10 - Essential (primary) hypertension Category: Medical Plan: Well controlled at current time. No med changes made Plan Time spent on chart review, documentation, interview and assessment Coding Level of Care Code Est Pt Level 4 (74020) Diagnoses Chest pain R07.9 Light-headedness R42 Paroxysmal atrial fibrillation I48.0 HTN (hypertension) I10 Time Spent (min) 28
== END 2023-12-02 14:07 | disposition home or self-care (01) ==
PROVIDERS: PCP Family Medicine; Visit Provider Nurse Practitioner Family
DX: R07.9 Chest pain, unspecified (principal); R42 Dizziness and giddiness; I48.0 Paroxysmal atrial fibrillation; I10 Essential (primary) hypertension
CPT/HCPCS: 99214

== ENCOUNTER → 2023-12-02 13:23 | Outpatient (BNVA) | payer OTHER, SELFPAY | PROVIDERS: PCP Family Medicine; Visit Provider Nurse Practitioner Family | DX: R07.9 Chest pain, unspecified (principal); R42 Dizziness and giddiness; I48.0 Paroxysmal atrial fibrillation; I10 Essential (primary) hypertension | CPT/HCPCS: 99212 ==

== ENCOUNTER 2023-12-15 16:09 | Emergency (ER) | payer OTHER, SELFPAY ==
--- NOTE | ~2023-12-15 | XR_ITS ---
EXAMINATION: SINGLE VIEW CHEST AND KUB CLINICAL INFORMATION: Chest pain and constipation COMPARISON: Chest radiograph 11/13/2023, CT abdomen pelvis 10/12/2023 TECHNIQUE: Single view chest, single view abdomen FINDINGS: The heart and pulmonary vessels appear normal. Bibasilar atelectasis is again seen. No infiltrates, effusions or lung masses are seen. There is no evidence of CHF. Abdominal bowel gas pattern is unremarkable with gas and stool seen throughout the colon. No evidence of bowel obstruction. Degenerative changes are seen in the spine with biconvex thoracolumbar scoliosis. Right total hip prosthesis present. Marked degenerative changes in the left hip. Surgical clips are present in the upper abdomen. XR/XR KUB IMPRESSION: 1. No acute intrathoracic disease. 2. No evidence of bowel obstruction. 3. Other incidental findings as described above.
--- NOTE | ~2023-12-15 | XR_ITS ---
EXAMINATION: SINGLE VIEW CHEST AND KUB CLINICAL INFORMATION: Chest pain and constipation COMPARISON: Chest radiograph 11/13/2023, CT abdomen pelvis 10/12/2023 TECHNIQUE: Single view chest, single view abdomen FINDINGS: The heart and pulmonary vessels appear normal. Bibasilar atelectasis is again seen. No infiltrates, effusions or lung masses are seen. There is no evidence of CHF. Abdominal bowel gas pattern is unremarkable with gas and stool seen throughout the colon. No evidence of bowel obstruction. Degenerative changes are seen in the spine with biconvex thoracolumbar scoliosis. Right total hip prosthesis present. Marked degenerative changes in the left hip. Surgical clips are present in the upper abdomen. XR/XR chest 1V IMPRESSION: 1. No acute intrathoracic disease. 2. No evidence of bowel obstruction. 3. Other incidental findings as described above.
--- NOTE | 2023-12-15 16:10 | ECG_ITS ---
Test Reason : CP Blood Pressure : / mmHG Vent. Rate : 059 BPM Atrial Rate : 059 BPM P-R Int : 208 ms QRS Dur : 082 ms QT Int : 422 ms P-R-T Axes : 000 -04 029 degrees QTc Int : 417 ms Sinus bradycardia Otherwise normal ECG When compared with ECG of 13-NOV-2023 08:54, No significant change was found Referred By: Sudhakar Valentine Electronically Signed By:TIMMY ENRIQUEZ
[2023-12-15 16:32] VITALS: BP 136/62; PULSE 62; RESP 16; TEMP 37; O2SAT 96; BMI 34.0
--- NOTE | 2023-12-15 16:33 | ED.GENADULT ---
HPI - General Adult General Chief complaint: Abdominal Pain Stated complaint: Cheat pain Time Seen by Provider: 12/15/23 17:34 Related Data Home Medications ?Medication ?Instructions ?Recorded ?Confirmed diclofenac sodium 1 % topical gel 1 ea topical QID 06/11/20 04/19/23 albuterol sulfate 90 mcg/actuation 2 puff inhalation Q4H PRN wheezing 12/12/20 04/19/23 aerosol inhaler ascorbic acid (vitamin C) 500 mg mg PO 05/22/21 04/19/23 capsule nitric oxide gas 100 PPM for ea inhalation 05/22/21 04/19/23 inhalation atorvastatin 20 mg tablet 20 mg PO DAILY 11/25/21 04/19/23 tamsulosin 0.4 mg capsule 0.4 mg PO BID 11/25/21 04/19/23 carboxymethylcellulose sodium 0.5 drp ophthalmic (eye) 03/12/22 04/19/23 % eye drops olopatadine 0.1 % eye drops 1 drp ophthalmic (eye) ONCE 03/12/22 04/19/23 citalopram 40 mg tablet 40 mg PO DAILY 04/19/23 04/19/23 levetiracetam 1,000 mg tablet 750 mg PO BID 04/19/23 04/19/23 furosemide 20 mg tablet 20 mg PO DAILY 12/02/23 ketotifen fumarate 0.025 % (0.035 drp ophthalmic (eye) 12/02/23 %) eye drops (Eye Itch Relief) nitroglycerin 0.3 mg sublingual mg sublingual 12/02/23 tablet Previous Rx's ?Medication ?Instructions ?Recorded lidocaine 5 % topical cream 1 appl topical BID PRN pain #15 05/12/22 grams diltiazem HCl 180 mg 180 mg PO DAILY #90 caps 05/17/23 capsule,extended release 24 hr rivaroxaban 20 mg tablet (Xarelto) 20 mg PO QPM #90 tabs 07/13/23 Allergies Allergy/AdvReac Type Severity Reaction Status Date / Time penicillin V Allergy Severe Hives Verified 12/15/23 16:35 piroxicam [PIROXICAM] Allergy Intermediate HIVES/SOB Verified 12/15/23 16:35 rofecoxib [From VIOXX] Allergy Intermediate HIVES/SOB Verified 12/15/23 16:35 Penicillins [PENICILLINS] Allergy Unknown UNKNOWN Verified 12/15/23 16:35 phenacetin [PHENACETIN] Allergy Unknown UNK Verified 12/15/23 16:35 From VICODIN Allergy Intermediate HIVES/SOB Uncoded 12/02/23 13:34 [facility] Past Medical History Medical History (Updated 12/16/23 @ 00:01 by Laith Galicia) Chronic anticoagulation CAD (coronary artery disease) Seizure disorder Paroxysmal atrial fibrillation HTN (hypertension) Surgical History History of left knee surgery History of right hip replacement History of ear surgery S/P skin biopsy Social History Social History Alcohol intake: current Alcohol intake frequency: holidays/special occasions only Alcohol type: beer Patient Tobacco Use Status: Former Tobacco user Years Smoked: 30 +/- Physical Exam ED Vital Signs: BMI result Body Mass Index 34.0 Course Course Course Narrative: This is an RME done by FEIM Valentine: Additional HPI, ROS, PE not included below will be deferred to primary provider. 83 year old male hx a fib on xarelto, sob, cad, htn presents w/ constipation x four days worsening hx of this in the past now having L sided abd pain. He checked in with chest pain but doesn't complain of this at present was going on for a while Appearance: Alert.? Oriented X3.? No acute cardiopulmonary distress distress.? Head: Normocephalic, atraumatic, no step-offs or deformities CVS: Pulses normal.? Respiratory: No respiratory distress.? Abdomen: Soft and TTP on left side of abd .? Skin: ? Normal skin color. Extremities: 5/5 strength to bilateral upper and lower extremities Back: No midline tenderness, no C-spine tenderness, full range of motion, No CVA tenderness bilaterally Neuro: Oriented X 3.? No motor deficit.? No sensory deficit. Medical Decision Making Lab Data 12/15/23 16:30 12/15/23 16:30 Labs: Lab Results 12/15/23 12/15/23 Range/Units 16:15 16:30 WBC 5.2 (4.8-10.8) X10*3/uL RBC 4.13 L (4.60-5.80) X10*6/uL Hgb 13.5 L (14.0-18.0) g/dl Hct 39.4 L (42.0-52.0) % MCV 95.4 (80.0-98.0) fL MCH 32.7 (27.0-33.0) pg MCHC 34.3 (31.0-36.0) g/dl RDW 13.9 (11.0-16.0) % Plt Count 182 (160-400) X10*3/uL MPV 9.8 (9.4-12.4) fL Immature Gran % (Auto) 0.2 (0.0-0.4) % Neut % (Auto) 67.0 (45-73) % Lymph % (Auto) 20.0 (20-40) % Swift % (Auto) 8.9 (2-11) % Eos % (Auto) 3.1 (0-4) % Baso % (Auto) 0.8 (0-2) % Lymph # (Auto) 1.0 L (1.2-4.9) X10*3/uL Swift # (Auto) 0.5 (0.1-1.2) X10*3/uL Eos # (Auto) 0.2 (0.0-0.4) X10*3/uL Baso # (Auto) 0.0 (0.0-0.2) X10*3/uL Abs Immat Gran (auto) 0.01 (0.00-0.03) X10*3/uL Absolute Neuts (auto) 3.5 (2.0-8.3) x10*3/uL Absolute Nucleated RBC 0.000 (0.0-0.012) X10*3/uL Nucleated RBC % (auto) 0.0 (0.0-0.2) /100WBC Sodium 140 (135-145) mmol/L Potassium 4.0 (3.3-5.1) mmol/L Chloride 107 (96-108) mmol/L Carbon Dioxide 27 (22-29) mmol/L Anion Gap 10 L (12-20) BUN 16 (9-16) mg/dL Creatinine 0.78 (0.5-1.4) mg/dL Estim Creat Clear Calc 85.4 Estimated GFR > 60 Random Glucose 105 (60-115) mg/dL Calcium 8.9 (8.4-10.2) mg/dL Magnesium 2.2 (1.6-2.6) mg/dL Total Bilirubin 0.4 (0.0-1.0) mg/dL AST 16 (5-37) U/L ALT 13 (0-40) U/L Alkaline Phosphatase 50 (39-117) U/L Troponin I High Sens < 2.7 (<3.5-35.0) ng/L Total Protein 6.8 (6.5-8.0) g/dL Albumin 4.0 (3.5-5.0) g/dL Stool Occult Blood NEGATIVE (NEGATIVE) Discharge Plan Discharge Clinical Impression: Atypical chest pain, Abdominal discomfort Patient Disposition: Home, Self-Care Instructions: Chest Pain (ED), Acute Abdominal Pain (ED) Additional Instructions: Please follow-up with your primary care physician tomorrow. If you have any worsening or new symptoms, please return to the emergency room or call 911 Prescriptions: No Action diltiazem HCl 180 mg capsule,extended release 24hr 180 mg PO DAILY Qty: 90 3RF Xarelto 20 mg tablet 20 mg PO QPM Qty: 90 3RF lidocaine 5 % cream 1 appl topical BID PRN (Reason: pain) Qty: 15 0RF diclofenac sodium 1 % gel 1 ea topical QID albuterol sulfate 90 mcg/actuation HFA aerosol inhaler 2 puff inhalation Q4H PRN (Reason: wheezing) ascorbic acid (vitamin C) 500 mg capsule PO nitric oxide gas 100 PPM gas inhalation tamsulosin 0.4 mg capsule 0.4 mg PO BID atorvastatin 20 mg tablet 20 mg PO DAILY olopatadine 0.1 % drops 1 drp ophthalmic (eye) ONCE carboxymethylcellulose sodium 0.5 % drops ophthalmic (eye) levetiracetam 1,000 mg tablet 750 mg PO BID furosemide 20 mg tablet 20 mg PO DAILY ketotifen fumarate [Eye Itch Relief] 0.025 % (0.035 %) drops ophthalmic (eye) nitroglycerin 0.3 mg tablet, sublingual sublingual citalopram 40 mg tablet 40 mg PO DAILY Interventions: ED Discharge Assessment Last Done: 12/15/23 19:43 Discharge Date/Time: 12/15/23 19:44 Print Language: Armenian
[2023-12-15 16:34] LABS: MANUAL DIFF FLAG NO
[2023-12-15 16:35] LABS: Basophils Percent Auto 0.8 % (0-2); Eosinophils Absolute Auto 0.2 X10*3/uL (0.0-0.4); Eosinophils Percent Auto 3.1 % (0-4); Hematocrit 39.4 % (42.0-52.0); Hemoglobin 13.5 g/dl (14.0-18.0); Imm Gran Abs Auto 0.01 X10*3/uL (0.00-0.03); Imm Gran Pct Auto 0.2 % (0.0-0.4); Mean Corpuscular HGB Conc 34.3 g/dl (31.0-36.0); Mean Corpuscular Hemoglobin 32.7 pg (27.0-33.0); Mean Corpuscular Volume 95.4 fL (80.0-98.0); Mean Platelet Volume 9.8 fL (9.4-12.4); Monocytes Absolute Auto 0.5 X10*3/uL (0.1-1.2); Monocytes Percent Auto 8.9 % (2-11); Neutrophils Absolute Auto 3.5 x10*3/uL (2.0-8.3); Platelet Count 182 X10*3/uL (160-400); Red Blood Count 4.13 X10*6/uL (4.60-5.80); Red Cell Distribution Width 13.9 % (11.0-16.0); White Blood Count 5.2 X10*3/uL (4.8-10.8)
[2023-12-15 16:52] LABS: Alanine Aminotransferase 13 U/L (0-40); Alkaline Phosphatase 50 U/L (39-117); Anion Gap 10 (12-20); Aspartate Amino Transferase 16 U/L (5-37); Bilirubin Total 0.4 mg/dL (0.0-1.0); Blood Urea Nitrogen 16 mg/dL (9-16); Calcium 8.9 mg/dL (8.4-10.2); Carbon Dioxide 27 mmol/L (22-29); Chloride 107 mmol/L (96-108); Creatinine Clr Calc Pharmacy 85.4; Estimated Glomerular Filt Rate > 60; Glucose Random 105 mg/dL (60-115); Magnesium 2.2 mg/dL (1.6-2.6); Sodium 140 mmol/L (135-145); Total Protein 6.8 g/dL (6.5-8.0)
[2023-12-15 17:00] LABS: Troponin-I High Sensitivity < 2.7 ng/L (<3.5-35.0)
--- NOTE | 2023-12-15 17:59 | ED_ITS ---
HPI - General Adult General Chief complaint: Abdominal Pain Stated complaint: Cheat pain Time Seen by Provider: 12/15/23 17:34 Source: patient and family Mode of arrival: ambulatory Limitations: no limitations History of Present Illness ED Provider: Dr. Shima Llanos HPI narrative: patient comes to the emergency room stating that his outpatient providers asked him to come to emergency room to get checked out. According to the patient, patient has had constipation for 4 days. Patient took 3 stool softeners yesterday, patient states that he had good bowel movements yesterday and now no longer has any abdominal pain, no bloating, patient is asymptomatic. Patient states that he mentioned to his provider that sometimes when he coughs he gets chest pain, last time he had chest pain was over 3 days ago. Patient states that over last 3 days he has been completely asymptomatic. Regardless, his patient provided asking to come checked out in the emergency room. Patient states that sometimes when he coughs he has a little bit of chest pressure. As mentioned above, last time it happened was 3 days ago Related Data Home Medications ?Medication ?Instructions ?Recorded ?Confirmed diclofenac sodium 1 % topical gel 1 ea topical QID 06/11/20 04/19/23 albuterol sulfate 90 mcg/actuation 2 puff inhalation Q4H PRN wheezing 12/12/20 04/19/23 aerosol inhaler ascorbic acid (vitamin C) 500 mg mg PO 05/22/21 04/19/23 capsule nitric oxide gas 100 PPM for ea inhalation 05/22/21 04/19/23 inhalation atorvastatin 20 mg tablet 20 mg PO DAILY 11/25/21 04/19/23 tamsulosin 0.4 mg capsule 0.4 mg PO BID 11/25/21 04/19/23 carboxymethylcellulose sodium 0.5 drp ophthalmic (eye) 03/12/22 04/19/23 % eye drops olopatadine 0.1 % eye drops 1 drp ophthalmic (eye) ONCE 03/12/22 04/19/23 citalopram 40 mg tablet 40 mg PO DAILY 04/19/23 04/19/23 levetiracetam 1,000 mg tablet 750 mg PO BID 04/19/23 04/19/23 furosemide 20 mg tablet 20 mg PO DAILY 12/02/23 ketotifen fumarate 0.025 % (0.035 drp ophthalmic (eye) 12/02/23 %) eye drops (Eye Itch Relief) nitroglycerin 0.3 mg sublingual mg sublingual 12/02/23 tablet Previous Rx's ?Medication ?Instructions ?Recorded lidocaine 5 % topical cream 1 appl topical BID PRN pain #15 05/12/22 grams diltiazem HCl 180 mg 180 mg PO DAILY #90 caps 05/17/23 capsule,extended release 24 hr rivaroxaban 20 mg tablet (Xarelto) 20 mg PO QPM #90 tabs 07/13/23 Allergies Allergy/AdvReac Type Severity Reaction Status Date / Time penicillin V Allergy Severe Hives Verified 12/15/23 16:35 piroxicam [PIROXICAM] Allergy Intermediate HIVES/SOB Verified 12/15/23 16:35 rofecoxib [From VIOXX] Allergy Intermediate HIVES/SOB Verified 12/15/23 16:35 Penicillins [PENICILLINS] Allergy Unknown UNKNOWN Verified 12/15/23 16:35 phenacetin [PHENACETIN] Allergy Unknown UNK Verified 12/15/23 16:35 From VICODIN Allergy Intermediate HIVES/SOB Uncoded 12/02/23 13:34 Review of Systems 2 Review of Systems: Constitutional : No Weight loss, No Fever, No Chills, No Night Sweats, No Fatigue, No Malaise ENT/Mouth : No Hearing loss, No Ear Pain, No Nasal Congestion, No Sinus Pain, No Hoarseness, No sore throat, No Rhinorrhea, No Swallowing Difficulty Eyes: No Eye Pain, No Swelling, No Redness, No Foreign Body, No Discharge, No Vision Changes Cardiovascular : No Chest Pain, No SOB, No Dyspnea on Exertion, No Orthopnea, No Edema, No Palpitations Respiratory : No Cough, No Sputum, No Wheezing, No Smoke Exposure, No Dyspnea Gastrointestinal : No Nausea, No Vomiting, No Diarrhea, No Constipation, No abdominal Pain, , reports intermittent dark stool, not today. Genitourinary : no irregular bleeding, No Dysuria, No Urinary Frequency, No Hematuria, No Urinary Incontinence, No Urgency, No Flank Pain, No Urinary Flow Changes, No Hesitancy Musculoskeletal : No joint pain, No Myalgias, No Joint Swelling Skin : No Skin Lesions, No rash Neuro : No Weakness, No Numbness, No Paresthesias, No Loss of Consciousness, No Dizziness, No Headache Psych : No Anxiety/Panic, No Depression, No SI/HI/AH/VH, No Social Issues, Heme/Lymph: No Bruising, No Bleeding,No Lymphadenopathy Endocrine : No Polyuria, No Polydipsia, No Temperature Intolerance [facility] Past Medical History Medical History (Updated 12/15/23 @ 19:10 by Shima Llanos MD) Chronic anticoagulation CAD (coronary artery disease) Seizure disorder Paroxysmal atrial fibrillation HTN (hypertension) Surgical History History of left knee surgery History of right hip replacement History of ear surgery S/P skin biopsy Social History Social History Alcohol intake: current Alcohol intake frequency: holidays/special occasions only Alcohol type: beer Patient Tobacco Use Status: Former Tobacco user Quit Date: 1999 Smoked: 30 +/- Smoked in Last 30 Days: No Use of substances other than those prescribed or required for medical reasons: No Advance Directives: No Advance Directives Information Provided: No Physical Exam ED Vital Signs: Vital Signs - 24 hr 12/15/23 16:32 12/15/23 18:47 Temperature 98.6 F 97.6 F Pulse Rate 62 50 Respiratory Rate 16 16 Blood Pressure 136/62 123/62 Pulse Oximetry 96 97 Oxygen Delivery Method Room Air Room Air BMI result Body Mass Index 34.0 Const Other: Appearance: Alert. Oriented X3. No acute distress. Eyes: Pupils equal, round and reactive to light. ENT: Pharynx normal. Neck: Normal inspection. Neck supple. No lymph nodes noted. No crepitus CVS: Normal heart rate and rhythm. Pulses normal. Normal S1 and S2 Respiratory: No respiratory distress. Breath sounds normal. No Wheezing. No rales Abdomen: Soft and nontender. No rigidity. No distention. brown stool Skin: Skin warm and dry. Normal skin color. Normal skin turgor. Extremities: No lower extremity edema. No Lacerations. No Rash Neuro: Oriented X 3. No motor deficit. No sensory deficit. Moving all extremities. No slurred speech. CN 2 through 12 grossly intact Psych: calm, cooperative, normal affect Course Course Course Narrative: patient has been asymptomatic for 3 days, patient had a good bowel movement today. Patient has been completely asymptomatic. No chest pain or abdominal pain or cough for 3 days. - Patient mentioned that every so often he has brown left leg bowel movements, digital rectal exam shows brown stool, guaiac pending - Patient's labs pending. Medical Decision Making Medical Decision Making [facility] Narrative: - I discussed the labs with the patient, no significant abnormalities in hematology and chemistry, troponin negative. Patient remains asymptomatic. - KUB shows no acute intrathoracic or signs of bowel obstruction. - I discussed with the patient that in his visit with Cardiology on November 29, it was discussed the patient may be a good candidate for a stress test. However, patient states that there is no point of him going through a stress test because even if there is any blockage, he does not want any surgery or any cardiac intervention. Patient states that his late is waiting for him and if it is time for him to go, he accepts so - overall, at this time, patient asymptomatic, patient's family at bedside, patient feels well to go home. Differential Diagnosis Differential Diagnoses: The differential diagnosis associated with the presentation includes ( ACS, SBO, constipation) Admission/Observation Consideration of admission/observation: Escalation of care including admission/observation considered ( given patient's symptoms, observation considered) Lab Data [facility] Lab Attestation statement: I reviewed the patient's lab results. 12/15/23 16:30 12/15/23 16:30 Labs: Lab Results 12/15/23 12/15/23 Range/Units 16:15 16:30 WBC 5.2 (4.8-10.8) X10*3/uL RBC 4.13 L (4.60-5.80) X10*6/uL Hgb 13.5 L (14.0-18.0) g/dl Hct 39.4 L (42.0-52.0) % MCV 95.4 (80.0-98.0) fL MCH 32.7 (27.0-33.0) pg MCHC 34.3 (31.0-36.0) g/dl RDW 13.9 (11.0-16.0) % Plt Count 182 (160-400) X10*3/uL MPV 9.8 (9.4-12.4) fL Immature Gran % (Auto) 0.2 (0.0-0.4) % Neut % (Auto) 67.0 (45-73) % Lymph % (Auto) 20.0 (20-40) % [place] % (Auto) 8.9 (2-11) % Eos % (Auto) 3.1 (0-4) % Baso % (Auto) 0.8 (0-2) % Lymph # (Auto) 1.0 L (1.2-4.9) X10*3/uL [place] # (Auto) 0.5 (0.1-1.2) X10*3/uL Eos # (Auto) 0.2 (0.0-0.4) X10*3/uL Baso # (Auto) 0.0 (0.0-0.2) X10*3/uL Abs Immat Gran (auto) 0.01 (0.00-0.03) X10*3/uL Absolute Neuts (auto) 3.5 (2.0-8.3) x10*3/uL Absolute Nucleated RBC 0.000 (0.0-0.012) X10*3/uL Nucleated RBC % (auto) 0.0 (0.0-0.2) /100WBC Sodium 140 (135-145) mmol/L Potassium 4.0 (3.3-5.1) mmol/L Chloride 107 (96-108) mmol/L Carbon Dioxide 27 (22-29) mmol/L Anion Gap 10 L (12-20) BUN 16 (9-16) mg/dL Creatinine 0.78 (0.5-1.4) mg/dL Estim Creat Clear Calc 85.4 Estimated GFR > 60 Random Glucose 105 (60-115) mg/dL Calcium 8.9 (8.4-10.2) mg/dL Magnesium 2.2 (1.6-2.6) mg/dL Total Bilirubin 0.4 (0.0-1.0) mg/dL AST 16 (5-37) U/L ALT 13 (0-40) U/L Alkaline Phosphatase 50 (39-117) U/L Troponin I High Sens < 2.7 (<3.5-35.0) ng/L Total Protein 6.8 (6.5-8.0) g/dL Albumin 4.0 (3.5-5.0) g/dL Stool Occult Blood NEGATIVE (NEGATIVE) Radiology Impression Discussion of test interpretation with radiology: I have reviewed the radiologist's reading. Radiologist Impression: FINDINGS: The heart and pulmonary vessels appear normal. Bibasilar atelectasis is again seen. No infiltrates, effusions or lung masses are seen. There is no evidence of CHF. Abdominal bowel gas pattern is unremarkable with gas and stool seen throughout the colon. No evidence of bowel obstruction. Degenerative changes are seen in the spine with biconvex thoracolumbar scoliosis. Right total hip prosthesis present. Marked degenerative changes in the left hip. Surgical clips are present in the upper abdomen. XR/XR KUB IMPRESSION: 1. No acute intrathoracic disease. 2. No evidence of bowel obstruction. 3. Other incidental findings as described above. IMPRESSION: 1. No acute intrathoracic disease. 2. No evidence of bowel obstruction. 3. Other incidental findings as described above. Independent Historian Clinical information obtained from an independent historian. History obtained from or confirmed by: Other ( daughter) Critical Care Time Critical Care Time Critical Care Time: Yes Total Critical Care Time: 45 Attestation: I have personally provided critical care time. Time includes review of lab data, radiology results, discussion with consultants, and monitoring for potential decompensation. Intervention performed as documented. Discharge Plan Discharge Clinical Impression: Atypical chest pain, Abdominal discomfort Patient Disposition: Home, Self-Care Instructions: Chest Pain (ED), Acute Abdominal Pain (ED) Additional Instructions: Please follow-up with your primary care physician tomorrow. If you have any worsening or new symptoms, please return to the emergency room or call 911 Prescriptions: No Action diltiazem HCl 180 mg capsule,extended release 24hr 180 mg PO DAILY Qty: 90 3RF Xarelto 20 mg tablet 20 mg PO QPM Qty: 90 3RF lidocaine 5 % cream 1 appl topical BID PRN (Reason: pain) Qty: 15 0RF diclofenac sodium 1 % gel 1 ea topical QID albuterol sulfate 90 mcg/actuation HFA aerosol inhaler 2 puff inhalation Q4H PRN (Reason: wheezing) ascorbic acid (vitamin C) 500 mg capsule PO nitric oxide gas 100 PPM gas inhalation tamsulosin 0.4 mg capsule 0.4 mg PO BID atorvastatin 20 mg tablet 20 mg PO DAILY olopatadine 0.1 % drops 1 drp ophthalmic (eye) ONCE carboxymethylcellulose sodium 0.5 % drops ophthalmic (eye) levetiracetam 1,000 mg tablet 750 mg PO BID furosemide 20 mg tablet 20 mg PO DAILY ketotifen fumarate [Eye Itch Relief] 0.025 % (0.035 %) drops ophthalmic (eye) nitroglycerin 0.3 mg tablet, sublingual sublingual citalopram 40 mg tablet 40 mg PO DAILY Print Language: Panamanian
[2023-12-15 18:47] VITALS: BP 123/62; PULSE 50; RESP 16; TEMP 36.4; O2SAT 97
[2023-12-15 18:50] LABS: OBS1 NEGATIVE (NEGATIVE)
[2023-12-15 18:51] LABS: OBS Int Ctl Valid YES
[2023-12-15 19:43] VITALS: BP 132/67; PULSE 60; RESP 18; TEMP 36.7; O2SAT 95
== END 2023-12-15 19:44 | disposition home or self-care (01) ==
PROVIDERS: Physician Assistant; Emergency Provider Emergency Medicine; PCP Family Medicine
DX: R07.89 Other chest pain (principal); R10.9 Unspecified abdominal pain; I10 Essential (primary) hypertension; I48.0 Paroxysmal atrial fibrillation; R06.02 Shortness of breath; Z87.891 Personal history of nicotine dependence; Z79.899 Other long term (current) drug therapy; Z79.01 Long term (current) use of anticoagulants
CPT/HCPCS: 36415; 71045; 74018; 80053; 82272; 83735; 84484; 85025; 93005; 99283; 99284

== ENCOUNTER → 2023-12-15 16:10 | Outpatient (BNV) | payer OTHER, SELFPAY | PROVIDERS: Emergency Provider Emergency Medicine; PCP Family Medicine; Visit Provider Internal Medicine | DX: R07.9 Chest pain, unspecified (principal); R00.1 Bradycardia, unspecified | CPT/HCPCS: 93010 ==

== ENCOUNTER 2024-02-24 08:49 | Outpatient (AMB) | payer OTHER, SELFPAY ==
[2024-02-24 08:53] VITALS: BP 124/62; PULSE 70; BMI 32.5
--- NOTE | 2024-02-24 08:53 | A.OFFVIS_ITS ---
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 Allergies penicillin V Allergy (Severe, Verified 02/24/24 08:56) Hives piroxicam [PIROXICAM] Allergy (Intermediate, Verified 02/24/24 08:56) HIVES/SOB rofecoxib [From VIOXX] Allergy (Intermediate, Verified 02/24/24 08:56) HIVES/SOB Penicillins [PENICILLINS] Allergy (Unknown, Verified 02/24/24 08:56) UNKNOWN phenacetin [PHENACETIN] Allergy (Unknown, Verified 02/24/24 08:56) UNK From VICODIN Allergy (Intermediate, Uncoded 02/24/24 08:56) HIVES/SOB Medication List - Last Reconciled 02/24/24 by NIEVES Parnell albuterol sulfate 90 mcg/actuation 2 puffs inhalation Q4H PRN ascorbic acid (vitamin C) mg PO atorvastatin 20 mg PO DAILY carboxymethylcellulose sodium 0.5% drps ophthalmic (eye) citalopram 40 mg PO DAILY diclofenac sodium 1% 1 ea topical QID diltiazem HCl CD 180 mg PO DAILY furosemide 20 mg PO DAILY ketotifen fumarate 0.025%(0.035%) (Eye Itch Relief) drps ophthalmic (eye) levetiracetam 750 mg PO BID lidocaine 5% 1 appl topical BID PRN nitric oxide gas 100PPM ea inhalation nitroglycerin mg sublingual olopatadine 0.1% 1 drp ophthalmic (eye) ONCE rivaroxaban (Xarelto) 20 mg PO QPM tamsulosin 0.4 mg PO BID HPI HPI 3m follow up: Details: Rm is an 83-year-old male with past medical history of hypertension, paroxysmal atrial fibrillation, nonobstructive coronary disease who presents for follow-up. Today he reports that he has been doing well since his last visit in November. He has not had any recurrent chest discomfort. No chest symptoms brought on by physical activity. No lightheadedness, presyncope, syncope, falls. No shortness of breath, PND, orthopnea or concerning edema. He does get some mild swelling on the left ankle which is not new. He ambulates with a cane. No bleeding issues reported. Taking meds as directed. Family member present. FOR[facility]LY [facility], [facility] Medical History Chronic anticoagulation CAD (coronary artery disease) Seizure disorder Paroxysmal atrial fibrillation HTN (hypertension) Surgical History History of left knee surgery History of right hip replacement History of ear surgery S/P skin biopsy Social History Alcohol intake: current Alcohol intake frequency: holidays/special occasions only Alcohol type: beer Patient Tobacco Use Status: Former Tobacco user Years Smoked: 30 +/- Review of Systems Const All systems reviewed & are unremarkable except as noted in HPI and below ENT Denies dizziness Card Denies chest pain, Denies chest pain at rest, Denies chest pain with activity, Denies rapid heart rate, Denies pedal edema, Denies edema, Denies leg edema, Denies lightheadedness, Denies palpitations, Denies dyspnea, Denies dyspnea on exertion and Denies orthopnea Resp Denies cough, Denies dyspnea and Denies dyspnea on exertion GI Denies hematochezia and Denies change in stool character Musc Details: uses cane Denies abnormal gait, Denies limited range of motion, Denies muscle cramps, Denies muscle weakness, Denies numbness, Denies radiating pain into limb, Denies stiffness and Denies tingling Neuro Denies abnormal gait, Denies dizziness, Denies numbness and Denies tingling Endo Denies palpitations Physical Exam Vital Signs: Last Vital Signs Pulse 70 02/24/24 08:53 BP 124/62 02/24/24 08:53 BMI result Body Mass Index 32.5 Const General: cooperative, healthy appearing, comfortable and no acute distress Orientation/consciousness: patient oriented x3 Neck Neck: Yes normal visual inspection and Yes no JVD Resp Effort & Inspection: normal respiratory effort Auscultation: clear to auscultation bilaterally, no crackles, no rales, no rhonchi and no wheezes Cardio Jugular venous distension: no JVD Rate: regular rate Rhythm: regular rhythm Heart sounds: S1 normal heart sound present, S2 normal heart sound present, no murmurs and no rubs Neuro General: patient oriented x3 Extrem General: Yes normal to inspection and No no pedal edema Psych Appearance: grossly normal Mental Status: mental status grossly normal Speech and movement: Normal speech and movement present Assessment & Plan Assessment & Plan (1) Chest pain: Code(s): R07.9 - Chest pain, unspecified Category: Medical Plan: Prior to last visit reported an episode of lightheadedness, double vision, discomfort in his chest lasting several minutes. This prompted ER evaluation showing no acute findings. He ruled out for ACS. EKG showed sinus rhythm with first-degree AV block, no acute ST or T-wave abnormalities, rate 59. His symptoms have not reoccurred. Does have a known history of nonobstructive coronary artery disease and is on med management. At this time no anginal sounding symptoms. On last visit offered nuclear stress test to evaluate for ischemia and he declined. Since he has not had any recurrent symptoms will hold off on further cardiac testing at this time. Signs and symptoms of angina reviewed with him. Will have him continue atorvastatin with ideal LDL goal less than 70. Continue diltiazem and Lasix. He has not on aspirin as he is on Xarelto. Cardiology follow-up in 6 months, sooner if needed. (2) Paroxysmal atrial fibrillation: Code(s): I48.0 - Paroxysmal atrial fibrillation Category: Medical Plan: History of paroxysmal atrial fibrillation. Clinically suppressed. EKG done at time of ER visit on 11/13/2023 showed sinus rhythm. EKG done at time of ER visit for noncardiac reason 12/15/2023 showed sinus bradycardia, rate 59. Pulse is regular on examination today. Will have him continue diltiazem for rate control. Continue Xarelto for anticoagulation. Labs from 11/13/2023 showed creatinine 0.75. Hematocrit 40.1. (3) HTN (hypertension): Code(s): I10 - Essential (primary) hypertension Category: Medical Plan: Well controlled at current time. No med changes made Plan Time spent on chart review, documentation, interview and assessment Coding Level of Care Code Est Pt Level 4 (72269) Diagnoses Chest pain R07.9 Paroxysmal atrial fibrillation I48.0 HTN (hypertension) I10 Time Spent (min) 28
== END 2024-02-24 09:27 | disposition home or self-care (01) ==
PROVIDERS: PCP Family Medicine; Referring Provider Family Medicine; Visit Provider Nurse Practitioner Family
DX: R07.9 Chest pain, unspecified (principal); I48.0 Paroxysmal atrial fibrillation; I10 Essential (primary) hypertension
CPT/HCPCS: 99214

== ENCOUNTER → 2024-02-24 08:49 | Outpatient (BNVA) | payer OTHER, SELFPAY | PROVIDERS: PCP Family Medicine; Visit Provider Nurse Practitioner Family | DX: R07.9 Chest pain, unspecified (principal); I48.0 Paroxysmal atrial fibrillation; I10 Essential (primary) hypertension | CPT/HCPCS: 99212 ==

== ENCOUNTER → 2024-03-24 08:33 | Outpatient (REF) | payer OTHER, SELFPAY ==
--- NOTE | 2024-03-24 08:38 | CA_ITS ---
Transthoracic Echocardiogram Patient (Last, First, Middle): Rm Palumbo, Gender: Male Date of : 1940 Age: 83 Procedure Date: 03/24/2024 Procedure Type: Transthoracic Echocardiogram Location: OP Height: 180.34 cm Weight: 98.43 kg BSA: 2.18 m2 Heart Rate: 64 bpm BP: 154 / 70 mmHg Manager Product Management: SB Referring MD: Lazaro Blake MD Symptoms: I48.0 - Paroxysmal atrial fibrillation Study Quality: Adequate ECG Rhythm: Sinus Conclusions: - The left ventricular systolic function is normal. The calculated ejection fraction is 64% by biplane method. - There is mild mitral annular calcification. There is mild mitral valve regurgitation. Findings Left Ventricle Normal left ventricular cavity size. There is normal left ventricular wall thickness. The left ventricular systolic function is normal. The calculated ejection fraction is 64% by biplane method. There is no evidence of regional wall motion abnormalities. Diastolic function is normal for age. Right Ventricle Normal right ventricular cavity size and systolic function. Atria Both atria are normal in size. Aortic Valve There is a normal trileaflet aortic valve. There is no aortic valve stenosis. There is no aortic valve regurgitation. Mitral Valve There is mild mitral annular calcification. There is mild mitral valve regurgitation. There is no mitral valve stenosis. Pulmonic Valve The pulmonic valve is likely normal. Tricuspid Valve There is mild tricuspid valve regurgitation. There is no evidence of pulmonary hypertension. Great Vessels The asc aorta is normal in size. Venous The inferior vena cava is normal in size and collapses less than 50% with inspiration. Pericardium/Pleural There is no evidence of pericardial effusion. Prior Study Comparison No significant change compared to prior study dated: 12/11/2020. Measurements 2D Linear Measurements IVSd: 0.73 0.6-0.9/0.6-1.0 cm LVIDd: 5.19 3.9-5.3/4.2-5.9 cm LVIDd Index: 2.38 2.4-3.2/2.2-3.1 cm/m2 LVIDs: 4.30 2.0-3.6 cm LVPWd: 0.65 0.7-1.1 cm LA Diam: 4.10 2.7-3.8/3.0-4.0 cm LAIDs Index: 1.88 1.5-2.3 cm/m2 LV Mass: 149.28 67-162/88-224 g LV Mass Index: 68.48 43-95/49-115 g/m2 LVOT Diam: 2.40 3.0+(-)1.3 cm 2D Systolic Function EF 4C: 66.70 >55% EF 2C: 57.80 >55% EF BiP: 63.60 >55% Mitral Valve MV VTI: 0.43 MV Pk Julio: 1.18 MV Mn Julio: 0.74 MV Pk Grad: 6.00 MV Mn Grad: 3.00 MV Pk E: 1.10 MV PK A: 1.17 MV Decel Time: 369.00 E/A: 0.90 E'Lateral: 9.68 E'Medial: 6.96 E/E' Med: 15.80 E/E' Lat: 11.40 PHT: 108.00 MVA PHT: 2.04 MVA Continuity: 2.31 Decel Swift: 2.97 MR Vol - PW Dopp: 28.22 MR VTI: 1.66 MR ERO: 17.00 MR Alias Julio: 0.39 MR RAD: 0.60 Aortic Valve AoV Pk Julio: 1.06 AoV Pk Grad: 4.00 CHRIS: 4.01 LVOT LVOT Pk Julio: 0.92 LVOT Mn Julio: 0.62 LVOT VTI: 0.22 LVOT Pk Grad: 3.00 LVOT Mn Grad: 2.00 LVOT Diam: 2.40 LVOT Area: 4.52 Diastolic Function MV Pk E: 1.10 MV Pk A: 1.17 E/A: 0.90 E'Medial: 6.96 E/E' Med: 15.80 E' Laterial: 9.68 E/E' Lat: 11.40 Right Ventricle TAPSE (mm): 25.40 TVS' Julio: 12.10 Tricuspid Valve TR Pk Julio: 2.21 TR Pk Grad: 20.00 RA Press: 8.00 RVSP: 28.00 Great Vessels Aorta Sinus of Valsalva: 3.60 2.0-3.5 cm Ao Asc: 3.70 2.1-3.4 cm Pulmonary Veins Pulm Vein S/D 1.20 Pulmonary Valve PV Pk Ujlio: 0.72 Peak PV Grad: 2.00 Updated in Other Vendor System with Status of Final Tonio Tidwell MD electronically signed on 03/26/2024 11:37:12 AM with status of Final
== END ==
LOC: HO.CARD 08:33
PROVIDERS: PCP Family Medicine; Visit Provider Internal Medicine Cardiovascular Disease
DX: I48.0 Paroxysmal atrial fibrillation (principal)
CPT/HCPCS: 93306

== ENCOUNTER → 2024-03-24 08:38 | Outpatient (BNV) | payer OTHER, SELFPAY | PROVIDERS: PCP Family Medicine; Visit Provider Internal Medicine | DX: I34.0 Nonrheumatic mitral (valve) insufficiency (principal); I34.81 Nonrheumatic mitral (valve) annulus calcification; I36.1 Nonrheumatic tricuspid (valve) insufficiency | CPT/HCPCS: 93306 ==

== ENCOUNTER 2024-04-10 07:08 | Emergency (ER) | payer OTHER, SELFPAY ==
--- NOTE | ~2024-04-10 | US_ITS ---
EXAMINATION: US TRIPLEX LOWER EXTREMITY, LEFT CLINICAL INFORMATION: Left lower extremity swelling, R/O DVT COMPARISON: None available. TECHNIQUE: Color-flow triplex imaging with spectral analysis and compression Doppler were performed on the left lower extremity. FINDINGS: Respiratory variation, normal compression and augmented flow are noted throughout the left lower extremity. The visualized common femoral vein, superficial femoral vein, profunda femoral vein and popliteal vein show no evidence of deep venous thrombosis. There is no Fuchs's cyst. US/US venous duplex LE LT IMPRESSION: No evidence of deep venous thrombosis involving the left lower extremity. Electronically signed by: Leah Renteria DO 04/10/2024 10:23 AM EDT
--- NOTE | ~2024-04-10 | XR_ITS ---
EXAMINATION: XR CHEST CLINICAL INFORMATION: Chest pain. COMPARISON: December 15, 2023 TECHNIQUE: Frontal view of the chest was obtained. FINDINGS: Low lung volumes. No focal consolidation. No pleural effusion. Cardiac silhouette is unchanged. XR/XR chest 1V IMPRESSION: No acute abnormality. Electronically signed by: Adarsh Costello MD 04/10/2024 08:46 AM EDT
[2024-04-10 07:21] VITALS: BP 119/59; BP 135/61; PULSE 60; PULSE 61; RESP 16; TEMP 36.6; O2SAT 95; BMI 33.2
--- NOTE | 2024-04-10 07:26 | ECG_ITS ---
Test Reason : cp Blood Pressure : / mmHG Vent. Rate : 059 BPM Atrial Rate : 059 BPM P-R Int : 228 ms QRS Dur : 082 ms QT Int : 424 ms P-R-T Axes : 011 000 034 degrees QTc Int : 419 ms Sinus bradycardia with 1st degree A-V block with Premature atrial complexes Otherwise normal ECG When compared with ECG of 15-DEC-2023 16:18, Premature atrial complexes are now Present Referred By: Generic ED Physician Electronically Signed By:FRED COELHO
[2024-04-10 07:50] LABS: MANUAL DIFF FLAG NO
[2024-04-10 07:54] LABS: Basophils Percent Auto 0.7 % (0-2); Eosinophils Absolute Auto 0.2 X10*3/uL (0.0-0.4); Eosinophils Percent Auto 3.5 % (0-4); Hematocrit 40.1 % (42.0-52.0); Hemoglobin 13.7 g/dl (14.0-18.0); Imm Gran Abs Auto 0.02 X10*3/uL (0.00-0.03); Imm Gran Pct Auto 0.3 % (0.0-0.4); Lymphocytes Absolute Auto 0.7 X10*3/uL (1.2-4.9); Lymphocytes Percent Auto 12.4 % (20-40); Mean Corpuscular HGB Conc 34.2 g/dl (31.0-36.0); Mean Corpuscular Hemoglobin 32.9 pg (27.0-33.0); Mean Corpuscular Volume 96.2 fL (80.0-98.0); Mean Platelet Volume 9.8 fL (9.4-12.4); Monocytes Absolute Auto 0.4 X10*3/uL (0.1-1.2); Monocytes Percent Auto 7.5 % (2-11); Neutrophils Absolute Auto 4.3 x10*3/uL (2.0-8.3); Neutrophils Percent Auto 75.6 % (45-73); Platelet Count 176 X10*3/uL (160-400); Red Blood Count 4.17 X10*6/uL (4.60-5.80); Red Cell Distribution Width 13.4 % (11.0-16.0); White Blood Count 5.7 X10*3/uL (4.8-10.8)
--- NOTE | 2024-04-10 08:06 | ED_ITS ---
HPI - General Adult General Chief complaint: General Medical Stated complaint: WOKE UP W/L ARM/LEG SWELLING Time Seen by Provider: 04/10/24 08:05 History of Present Illness ED Provider: Dr. Josh Ruiz HPI narrative: 83-year-old male with a history of coronary artery disease, seizures, paroxysmal atrial fibrillation on chronic anticoagulation, hypertension, left knee surgery, right hip replacement who presents emergency department for evaluation of left calf swelling which started at 03:30 hours and has now resolved, left-sided chest pain with numbness and tingling in the left arm and left leg. Patient has been experiencing left-sided chest pain for several months. He states that the chest pain is become more frequent over the last week. Pain is not associated with exertion but comes on at rest. He states the pain will last less than a minute. He points to the area beneath his left breast and states that it is a soreness. He states that occasionally he feels lightheaded when he gets the pain. He denied any radiation of the pain to his neck jaw or back. He denied diaphoresis. He states that occasionally has difficulty swallowing his saliva and this caused him to cough but he denies any difficulty eating or drinking. Related Data Home Medications ?Medication ?Instructions ?Recorded ?Confirmed diclofenac sodium 1 % topical gel 1 ea topical QID 06/11/20 02/24/24 albuterol sulfate 90 mcg/actuation 2 puff inhalation Q4H PRN wheezing 12/12/20 02/24/24 aerosol inhaler ascorbic acid (vitamin C) 500 mg mg PO 05/22/21 02/24/24 capsule nitric oxide gas 100 PPM for ea inhalation 05/22/21 02/24/24 inhalation atorvastatin 20 mg tablet 20 mg PO DAILY 11/25/21 02/24/24 tamsulosin 0.4 mg capsule 0.4 mg PO BID 11/25/21 02/24/24 carboxymethylcellulose sodium 0.5 drp ophthalmic (eye) 03/12/22 02/24/24 % eye drops olopatadine 0.1 % eye drops 1 drp ophthalmic (eye) ONCE 03/12/22 02/24/24 citalopram 40 mg tablet 40 mg PO DAILY 04/19/23 02/24/24 levetiracetam 1,000 mg tablet 750 mg PO BID 04/19/23 02/24/24 furosemide 20 mg tablet 20 mg PO DAILY 12/02/23 02/24/24 ketotifen fumarate 0.025 % (0.035 drp ophthalmic (eye) 12/02/23 02/24/24 %) eye drops (Eye Itch Relief) nitroglycerin 0.3 mg sublingual mg sublingual 12/02/23 02/24/24 tablet Previous Rx's ?Medication ?Instructions ?Recorded lidocaine 5 % topical cream 1 appl topical BID PRN pain #15 05/12/22 grams diltiazem HCl 180 mg 180 mg PO DAILY #90 caps 05/17/23 capsule,extended release 24 hr rivaroxaban 20 mg tablet (Xarelto) 20 mg PO QPM #90 tabs 07/13/23 Allergies Allergy/AdvReac Type Severity Reaction Status Date / Time penicillin V Allergy Severe Hives Verified 04/10/24 07:23 piroxicam [PIROXICAM] Allergy Intermediate HIVES/SOB Verified 04/10/24 07:23 rofecoxib [From VIOXX] Allergy Intermediate HIVES/SOB Verified 04/10/24 07:23 Penicillins [PENICILLINS] Allergy Unknown UNKNOWN Verified 04/10/24 07:23 phenacetin [PHENACETIN] Allergy Unknown UNK Verified 04/10/24 07:23 From VICODIN Allergy Intermediate HIVES/SOB Uncoded 02/24/24 08:56 Review of Systems 2 Review of Systems: Yes all other systems are reviewed and are negative [facility] Past Medical History [facility] Narrative: Social history: He is a former smoker and stop smoking when he was 15 years old. He states he has a greater than 30 pack-year history of smoking. Occasionally drinks alcohol. He denies drug use. Medical History Chronic anticoagulation CAD (coronary artery disease) Seizure disorder Paroxysmal atrial fibrillation HTN (hypertension) Surgical History History of left knee surgery History of right hip replacement History of ear surgery S/P skin biopsy Social History Social History Alcohol intake: current Alcohol intake frequency: holidays/special occasions only Alcohol type: beer Patient Tobacco Use Status: Former Tobacco user Years Smoked: 30 +/- Advance Directives: Yes Advance Directives Information Provided: Yes Advance Directives on File: No Do you have a plan to hurt others: No Plan Physical Exam ED Vital Signs: Vital Signs - 24 hr 04/10/24 07:21 04/10/24 10:19 Temperature 97.9 F 97.9 F Pulse Rate 61 57 Respiratory Rate 16 18 Blood Pressure 119/59 L 134/62 Pulse Oximetry 95 94 Oxygen Delivery Method Room Air Room Air BMI result Body Mass Index 33.2 Vital signs were normal Exam: General: Awake, alert in no distress Head: Normocephalic, atraumatic EENT: PERRL, Lids normal, sclera normal, conjunctiva normal, nose normal , ears normal, throat without erythema or exudates Neck: Supple, no adenopathy Lung: breath sounds symmetric, no wheezing, rales or rhonchi Chest: symmetric movement, nontender Heart: regular rate and rhythm, normal S1, S2 no murmurs or rubs Abdomen: soft, non-tender, nondistended, normal bowel sounds Back: no vertebral tenderness, no CVAT Extremities: no deformities, moves all extremities symmetrically Neuro: Awake, alert, oriented, normal speech, cranial nerves intact, moves all extremities symmetrically Psych: Pleasant, cooperative Medical Decision Making Medical Decision Making MDM Narrative: 83-year-old male with a history of coronary artery disease, seizures, paroxysmal atrial fibrillation on chronic anticoagulation, hypertension, left knee surgery, right hip replacement who presents emergency department for evaluation of left calf swelling which started at 03:30 hours has now resolved and intermittent left-sided chest pain lasting 1 minute, located underneath his left breast, occasionally associated with lightheadedness with multiple episodes of the last month and increased episodes your last month which come on at rest and not related to exertion. Vital signs were normal. Physical examination was unremarkable. Differential diagnosis: ?Includes but is not limited to DVT, PE, myocardial infarction, myocardial ischemia, electrolyte abnormalities, anemia, dependent edema, fluid overload Course: My independent interpretation patient's laboratory evaluation as follows: CBC was normal. CMP was normal. Initial troponin was below detectable limits, 3 hour troponin was below detectable limits as well which is reassuring. Patient's duplex ultrasound revealed no DVT which is reassuring. I did discuss limitations of this test with the patient and the patient's daughter and if the patient's symptoms persist then he will need a repeat duplex ultrasound and 4-7 days. However, the patient was on Xarelto, he has been compliant with this medication and I think that DVT is unlikely. Patient's chest pain is atypical for coronary disease and I did discuss this with him and the need for follow up with his PCP. The patient's lower extremity swelling is most likely caused by a dependent edema and the fact that the patient was drinking large volumes of water daily and I did discuss this with him as well. Patient was to restrict his fluid intake to thirst only and to keep his legs elevated. He was given printed and verbal instructions discharged home. Admission/Observation Consideration of admission/observation: Escalation of care including admission/observation considered (Yes) Lab Data MDM Lab Attestation statement: I reviewed the patient's lab results. My independent interpretation of the patient's laboratory evaluation is as follows: CBC was normal. CMP was normal. First troponin was below detectable limits. 04/10/24 07:46 04/10/24 07:46 Labs: Lab Results 04/10/24 04/10/24 04/10/24 Range/Units 07:46 10:08 10:47 WBC 5.7 (4.8-10.8) X10*3/uL RBC 4.17 L (4.60-5.80) X10*6/uL Hgb 13.7 L (14.0-18.0) g/dl Hct 40.1 L (42.0-52.0) % MCV 96.2 (80.0-98.0) fL MCH 32.9 (27.0-33.0) pg MCHC 34.2 (31.0-36.0) g/dl RDW 13.4 (11.0-16.0) % Plt Count 176 (160-400) X10*3/uL MPV 9.8 (9.4-12.4) fL Immature Gran % (Auto) 0.3 (0.0-0.4) % Neut % (Auto) 75.6 H (45-73) % Lymph % (Auto) 12.4 L (20-40) % [place] % (Auto) 7.5 (2-11) % Eos % (Auto) 3.5 (0-4) % Baso % (Auto) 0.7 (0-2) % Lymph # (Auto) 0.7 L (1.2-4.9) X10*3/uL [place] # (Auto) 0.4 (0.1-1.2) X10*3/uL Eos # (Auto) 0.2 (0.0-0.4) X10*3/uL Baso # (Auto) 0.0 (0.0-0.2) X10*3/uL Abs Immat Gran (auto) 0.02 (0.00-0.03) X10*3/uL Absolute Neuts (auto) 4.3 (2.0-8.3) x10*3/uL Absolute Nucleated RBC 0.000 (0.0-0.012) X10*3/uL Nucleated RBC % (auto) 0.0 (0.0-0.2) /100WBC Hold Blue Top SEE NOTE Sodium 141 (135-145) mmol/L Potassium 4.1 (3.3-5.1) mmol/L Chloride 106 (96-108) mmol/L Carbon Dioxide 27 (22-29) mmol/L Anion Gap 12 (12-20) BUN 16 (9-16) mg/dL Creatinine 0.81 (0.5-1.4) mg/dL Estim Creat Clear Calc 83.8 Estimated GFR > 60 Random Glucose 109 (60-115) mg/dL Calcium 9.0 (8.4-10.2) mg/dL Total Bilirubin 0.5 (0.0-1.0) mg/dL AST 15 (5-37) U/L ALT 14 (0-40) U/L Alkaline Phosphatase 47 (39-117) U/L Troponin I High Sens < 2.7 < 2.7 (<3.5-35.0) ng/L B-Natriuretic Peptide 90 (<100) pg/mL Total Protein 6.5 (6.5-8.0) g/dL Albumin 3.9 (3.5-5.0) g/dL Urine Color Yellow Urine Appearance Clear Urine pH 6.5 (5.0-9.0) Ur Specific [place] 1.020 (1.005-1.025) Urine Protein Negative (Neg-Trace) mg/dL Urine Glucose (UA) Negative (Negative) mg/dL Urine Ketones Negative (Negative) mg/dL Urine Blood Negative (Negative) Urine Nitrite Negative (Negative) Ur Leukocyte Esterase Negative (Negative) Urine RBC 0-2 (0-2) /HPF Urine WBC 0-5 (0-5) /HPF Ur Squamous Epith Cells 0-2 (0-2) /HPF Urine Bacteria None Seen (None Seen) Hyaline Casts 0-2 (0-2) /LPF Independent Interpretation I performed an independent interpretation of an: EKG and Plain X-Ray Interpretation: My independent interpretation patient's 12 EKG done at 07:56 hours is as follows: Bradycardia with a first-degree AV block with a TN interval of 228 and a heart rate of 59, normal QRS and QTC intervals, no ST segment elevation, no ST segment depression, no significant T-wave abnormalities, no PACs, no PVCs . Compared to EKG dated 12/15/2023 bradycardia and first-degree AV block were present, no significant changes. My independent interpretation patient's one-view chest x-ray is as follows: No acute disease seen by me Radiology Impression Discussion of test interpretation with radiology: I have reviewed the radiologist's reading. Radiologist Impression: US venous duplex LE LT IMPRESSION: No evidence of deep venous thrombosis involving the left lower extremity. Electronically signed by: Leah Renteria DO 04/10/2024 10:23 AM EDT RP Dictated By: Leah Renteria XR chest 1V IMPRESSION: No acute abnormality. Electronically signed by: Adarsh Costello MD 04/10/2024 08:46 AM EDT RP Dictated By: Herman Costello MD Independent Historian Clinical information obtained from an independent historian. History obtained from or confirmed by: Other (Daughters) External Record Review External record reviewed: Office record (Cardiology note 02/24/2024) Chronic Conditions Patient?s care impacted by: Hypertension and Other (Coronary disease) Discharge Plan Discharge Clinical Impression: Chest pain, Left leg swelling Patient Disposition: Home, Self-Care Additional Instructions: Your laboratory evaluation was unremarkable. We did two high sensitive troponin I tests (this test is a marker of heart damage) and both were below detectable limits which is reassuring suggesting that the pain that your experiencing on the left side of chest is not caused by heart attack pain. The ultrasound of your left lower extremity did not reveal any blood clot which is also reassuring. Continue taking medications as prescribed by your providers and make sure you do not miss any of the doses of your blood thinner, Xarelto (rivaroxaban). At this time, I believe that the swelling in your legs is related to your body holding onto too much fluid (dependent edema). I want you to restrict the amount of water and fluids that you drink over the next week in only drink when your thirsty. This should help your body get rid of excess fluid Also keep your legs elevated and the should also reduce the swelling in your legs. Follow-up with your doctor in 2 days. Please return to the emergency department if your symptoms get worse or if you develop any symptoms that are concerning to you. Prescriptions: No Action diltiazem HCl 180 mg capsule,extended release 24hr 180 mg PO DAILY Qty: 90 3RF Xarelto 20 mg tablet 20 mg PO QPM Qty: 90 3RF lidocaine 5 % cream 1 appl topical BID PRN (Reason: pain) Qty: 15 0RF diclofenac sodium 1 % gel 1 ea topical QID albuterol sulfate 90 mcg/actuation HFA aerosol inhaler 2 puff inhalation Q4H PRN (Reason: wheezing) ascorbic acid (vitamin C) 500 mg capsule PO nitric oxide gas 100 PPM gas inhalation tamsulosin 0.4 mg capsule 0.4 mg PO BID atorvastatin 20 mg tablet 20 mg PO DAILY olopatadine 0.1 % drops 1 drp ophthalmic (eye) ONCE carboxymethylcellulose sodium 0.5 % drops ophthalmic (eye) levetiracetam 1,000 mg tablet 750 mg PO BID furosemide 20 mg tablet 20 mg PO DAILY ketotifen fumarate [Eye Itch Relief] 0.025 % (0.035 %) drops ophthalmic (eye) nitroglycerin 0.3 mg tablet, sublingual sublingual citalopram 40 mg tablet 40 mg PO DAILY Interventions: ED Discharge Assessment Last Done: 04/10/24 11:50 Discharge Date/Time: 04/10/24 11:50 Print Language: Thai
[2024-04-10 08:11] LABS: Alanine Aminotransferase 14 U/L (0-40); Albumin Level 3.9 g/dL (3.5-5.0); Alkaline Phosphatase 47 U/L (39-117); Anion Gap 12 (12-20); Aspartate Amino Transferase 15 U/L (5-37); Bilirubin Total 0.5 mg/dL (0.0-1.0); Blood Urea Nitrogen 16 mg/dL (9-16); Carbon Dioxide 27 mmol/L (22-29); Chloride 106 mmol/L (96-108); Creatinine Clr Calc Pharmacy 83.8; Estimated Glomerular Filt Rate > 60; Glucose Random 109 mg/dL (60-115); Potassium 4.1 mmol/L (3.3-5.1); Sodium 141 mmol/L (135-145); Total Protein 6.5 g/dL (6.5-8.0)
[2024-04-10 08:14] LABS: B Type Natriuretic Peptide 90 pg/mL (<100)
[2024-04-10 08:20] LABS: Troponin-I High Sensitivity < 2.7 ng/L (<3.5-35.0)
--- NOTE | 2024-04-10 09:38 | PC.NURSE ---
US at bedside at this time, patient aware of plan for repeating troponin at 1045. continues to rest comfortably in room, offering no complaints at this time. daughter at bedside.
[2024-04-10 10:14] LABS: Appearance Urine Clear; Color Urine Yellow; Glucose Urine UA Negative (Negative); Leukocyte Esterase Urine Negative (Negative); Nitrite Urine Negative (Negative); PH 6.5 (5.0-9.0); Urine Blood Negative (Negative); Urine Ketones Negative (Negative); Urine Protein Negative (Neg-Trace)
[2024-04-10 10:19] VITALS: BP 134/62; PULSE 57; RESP 18; TEMP 36.6; O2SAT 94
[2024-04-10 10:20] LABS: Bacteria Urine None Seen (None Seen); Hyaline Casts Urine 0-2 /LPF (0-2); RBC Urine 0-2 /HPF (0-2); Squamous Epithelial Cell Urine 0-2 /HPF (0-2); WBC Urine 0-5 /HPF (0-5)
--- NOTE | 2024-04-10 11:01 | PC.NURSE ---
repeat troponin obtained, awaiting results at this time. patient continues to rest comfortably w/out any obvious signs/symptoms of distress noted.
[2024-04-10 11:12] LABS: Troponin-I High Sensitivity < 2.7 ng/L (<3.5-35.0)
[2024-04-10 11:50] VITALS: BP 134/62; PULSE 57; RESP 18; TEMP 36.6; O2SAT 94
== END 2024-04-10 11:50 | disposition home or self-care (01) ==
PROVIDERS: Emergency Provider Emergency Medicine Emergency Medical Services
DX: R07.9 Chest pain, unspecified (principal); I48.0 Paroxysmal atrial fibrillation; I10 Essential (primary) hypertension; I25.10 Atherosclerotic heart disease of native coronary artery without angina pectoris; G40.909 Epilepsy, unspecified, not intractable, without status epilepticus; R42 Dizziness and giddiness; Z96.641 Presence of right artificial hip joint; Z79.899 Other long term (current) drug therapy; Z79.01 Long term (current) use of anticoagulants
CPT/HCPCS: 36415; 71045; 80053; 81001; 83880; 84484; 85025; 93005; 93971; 99284; 99285

== ENCOUNTER 2024-04-21 09:54 | Outpatient (AMB) | payer OTHER, SELFPAY ==
[2024-04-21 10:27] VITALS: BP 120/76; PULSE 63; BMI 31.0
--- NOTE | 2024-04-21 10:27 | MHC.OFFVIS ---
Vital Signs 04/21/24 10:27 Height 5 ft 10 in Weight 216 lb 0.848 oz BMI 31.0 BP 120/76 Blood Pressure Location Lt brachial Position Sitting Pulse 63 Intake Visit Reasons: 1 yr f/up s/p echo Intake Note: 1 year follow-up after echo with ekg feeling good Library Paraprofessional Required: No Allergies penicillin V Allergy (Severe, Verified 04/10/24 07:23) Hives piroxicam [PIROXICAM] Allergy (Intermediate, Verified 04/10/24 07:23) HIVES/SOB rofecoxib [From VIOXX] Allergy (Intermediate, Verified 04/10/24 07:23) HIVES/SOB Penicillins [PENICILLINS] Allergy (Unknown, Verified 04/10/24 07:23) UNKNOWN phenacetin [PHENACETIN] Allergy (Unknown, Verified 04/10/24 07:23) UNK From VICODIN Allergy (Intermediate, Uncoded 02/24/24 08:56) HIVES/SOB Medication List - Last Reconciled 04/21/24 by Lazaro Blake MD albuterol sulfate 90 mcg/actuation 2 puffs inhalation Q4H PRN ascorbic acid (vitamin C) mg PO atorvastatin 20 mg PO DAILY carboxymethylcellulose sodium 0.5% drps ophthalmic (eye) citalopram 40 mg PO DAILY diclofenac sodium 1% 1 ea topical QID diltiazem HCl CD 180 mg PO DAILY furosemide 20 mg PO DAILY ketotifen fumarate 0.025%(0.035%) (Eye Itch Relief) drps ophthalmic (eye) levetiracetam 750 mg PO BID lidocaine 5% 1 appl topical BID PRN nitric oxide gas 100PPM ea inhalation nitroglycerin mg sublingual olopatadine 0.1% 1 drp ophthalmic (eye) ONCE rivaroxaban (Xarelto) 20 mg PO QPM tamsulosin 0.4 mg PO BID HPI Comments Details: Rm comes for follow-up, accompanied by his daughter. He was seen after he had hospital presentation with chest pain and that time was felt that his chest pain was not cardiac in nature. He has not had any prolonged palpitation irregular heartbeat. He continues to remain worried about vascular issues. He had a carotid duplex couple years ago which had shown nonobstructive disease. Continues to have neurologic symptoms with numbness in his legs in his arms. No clear claudication type symptoms. No heart failure like symptoms. Takes all his medications. No bleeding issues or neurologic events. [facility] Medical History Chronic anticoagulation CAD (coronary artery disease) Seizure disorder Paroxysmal atrial fibrillation HTN (hypertension) Surgical History History of left knee surgery History of right hip replacement History of ear surgery S/P skin biopsy Social History Alcohol intake: current Alcohol intake frequency: holidays/special occasions only Alcohol type: beer Patient Tobacco Use Status: Former Tobacco user Years Smoked: 30 +/- Review of Systems Const Denies chills, Denies fatigue, Denies fever(s), Denies frequent falls, Denies weakness, Denies weight gain and Denies weight loss ENT Denies dizziness Card Denies chest pain, Denies leg edema, Denies lightheadedness, Denies palpitations, Denies dyspnea, Denies dyspnea on exertion, Denies orthopnea and Denies other (loss of consciousness) Resp Denies cough, Denies dyspnea and Denies dyspnea on exertion GI Denies hematochezia and Denies change in stool character Musc Denies abnormal gait, Denies muscle weakness, Denies numbness, Denies radiating pain into limb and Denies tingling Neuro Denies abnormal gait, Denies dizziness, Denies frequent falls, Denies numbness, Denies tingling and Denies weakness Endo Denies fatigue and Denies palpitations Physical Exam Vital Signs: Last Vital Signs Pulse 63 04/21/24 10:27 BP 120/76 04/21/24 10:27 BMI result Body Mass Index 31.0 Const General: cooperative, healthy appearing, comfortable and no acute distress Orientation/consciousness: patient oriented x3 Neck Neck: Yes normal visual inspection and Yes no JVD Resp Effort & Inspection: normal respiratory effort Auscultation: clear to auscultation bilaterally, no crackles, no rales, no rhonchi and no wheezes Cardio Jugular venous distension: no JVD Rate: regular rate Rhythm: regular rhythm Heart sounds: S1 normal heart sound present, S2 normal heart sound present, no murmurs and no rubs Neuro General: patient oriented x3 Extrem General: Yes normal to inspection and No no pedal edema Psych Appearance: grossly normal Mental Status: mental status grossly normal Speech and movement: Normal speech and movement present Office Procedures EKG Details: EKG shows normal sinus rhythm with normal EKG [id number], Complete Assessment & Plan Assessment & Plan (1) Paroxysmal atrial fibrillation: Code(s): I48.0 - Paroxysmal atrial fibrillation Category: Medical Plan: Paroxysmal atrial fibrillation without any obvious clinical recurrence. Continue rhythm control approach has done well for him. Continue Cardizem therapy. No indication for antiarrhythmic drug therapy. Advised to call me with new symptoms. Continue full oral anticoagulation, currently on Xarelto 20 mg daily. Semi annual renal function test should be pursued. Continue avoid stimulants. Stress mitigation strategies were discussed. (2) CAD (coronary artery disease): Code(s): I25.10 - Atherosclerotic heart disease of [place] coronary artery without angina pectoris Category: Medical Plan: Nonobstructive CAD as well as carotid disease. He is concerned about progressive carotid disease. Will suggest a carotid duplex to further assess for the same. Continue aggressive risk factor modification. Blood pressure is currently well optimized advised to monitor blood pressure at home maintain a log. Continue statin therapy with target goal LDL less than 70 mg/dL. None of his symptoms are suggestive of progressive coronary artery disease this was discussed with him. Will follow up in the clinic in 6 months time on his request. Thank you for allowing me to partake in his care Orders: Orders US carotid duplex BI Today I65.29 - Occlusion and stenosis of unspecified carotid artery Coding Level of Care Code Est Pt Level 4 (02322) Complex EM visit Add On G2211 Diagnoses Paroxysmal atrial fibrillation I48.0 CAD (coronary artery disease) I25.10 CPT Codes EKG - CPT: 18694-[id number], Complete ([id number])
== END 2024-04-21 10:59 | disposition home or self-care (01) ==
PROVIDERS: PCP Family Medicine; Visit Provider Internal Medicine Cardiovascular Disease
DX: I48.0 Paroxysmal atrial fibrillation (principal); I25.10 Atherosclerotic heart disease of native coronary artery without angina pectoris
CPT/HCPCS: 93010; 99214

== ENCOUNTER → 2024-04-21 09:54 | Outpatient (BNVA) | payer OTHER, SELFPAY | PROVIDERS: PCP Family Medicine; Visit Provider Internal Medicine Cardiovascular Disease | DX: I48.0 Paroxysmal atrial fibrillation (principal); I25.10 Atherosclerotic heart disease of native coronary artery without angina pectoris; I65.29 Occlusion and stenosis of unspecified carotid artery | CPT/HCPCS: 93005; 99212 ==

== ENCOUNTER 2024-04-26 14:02 | Outpatient (REF) | payer OTHER, SELFPAY ==
--- NOTE | ~2024-04-26 | US_ITS ---
EXAMINATION: US EXTRACRANIAL CAROTID DUPLEX, BILATERAL CLINICAL INFORMATION: Carotid artery stenosis COMPARISON: Carotid duplex on 02/03/2022 TECHNIQUE: Real-time ultrasound and Doppler techniques (integrating B-mode 2-D vascular images, Doppler spectral analysis and color-flow Doppler imaging) were utilized to interrogate the extracranial carotid arteries, the vertebral arteries and proximal subclavian arteries bilaterally. The degree of stenosis is determined by criteria similar to NASCET. FINDINGS: Right Side: 1. There is mild atherosclerotic plaque seen in the bifurcation/proximal ICA region. 2. The common carotid artery PSV proximally is 91 cm/s and distally 78 cm/s. 3. The proximal internal carotid artery velocities are 109 cm/s systolic and 15 cm/s diastolic. 4. The proximal external carotid artery PSV is 103 cm/s. 5. The vertebral artery shows antegrade flow. 6. The subclavian artery waveforms are normal. Left Side: 1. There is mild atherosclerotic plaque seen in the bifurcation/proximal ICA region. 2. The common carotid artery PSV proximally is 98 cm/s and distally 70 cm/s. 3. The proximal internal carotid artery velocities are 91 cm/s systolic and 16 cm/s diastolic. 4. The proximal external carotid artery PSV is 56 cm/s. 5. The vertebral artery shows antegrade flow. 6. The subclavian artery waveforms are normal. US/US carotid duplex BI IMPRESSION: 1. RIGHT: Minimal, non-hemodynamically significant stenosis of the proximal right internal carotid artery corresponding to a 0-49% stenosis by velocity criteria. 2. LEFT: Minimal, non-hemodynamically significant stenosis of the proximal left internal carotid artery corresponding to a 0-49% stenosis by velocity criteria. 3. There is no change in the category severity of disease when compared to the previous study dated 02/03/2022. Electronically signed by: Fernanda Lopez MD 04/30/2024 02:00 PM EDT
== END 2024-04-26 14:03 | disposition home or self-care (01) ==
LOC: HO.US 14:02
PROVIDERS: Visit Provider Internal Medicine Cardiovascular Disease
DX: I65.23 Occlusion and stenosis of bilateral carotid arteries (principal)
CPT/HCPCS: 93880

== ENCOUNTER 2024-05-09 07:27 | Emergency (ER) | payer OTHER, SELFPAY ==
--- NOTE | ~2024-05-09 | CT_ITS ---
EXAMINATION: CT ABDOMEN AND PELVIS WITH CONTRAST CLINICAL INFORMATION: Right flank and hip pain after fall COMPARISON: 10/12/2023 TECHNIQUE: Multidetector volumetric images were obtained from the superior aspect of the liver through the pubic symphysis following administration 85 mL of Omnipaque 350 intravenous contrast. Sagittal and coronal reformatted images were obtained on the technologist's workstation. Oral contrast: No This CT examination was performed using dose optimization techniques as appropriate, variously including the following: *Automated exposure control *Adjustment of mA and/or kV according to patient size (this includes techniques or standardized protocols for targeted exams where dose is matched to indication/reason for exam; i.e. extremities or head) *Use of iterative reconstruction technique DLP: 800 mGy-cm FINDINGS: LUNG BASES: Coronary calcifications and/or stents. Nonenlarged heart. No pericardial effusion. Scattered atelectasis. LIVER, GALLBLADDER, AND BILIARY TREE: The liver is normal in size, shape, and attenuation. Too small to characterize subcapsular upper liver hypodensity is statistically a cyst. No biliary ductal dilatation is present. The gallbladder has been surgically removed. PANCREAS: Unremarkable. SPLEEN: Splenic calcification. ADRENAL GLANDS: Unremarkable. KIDNEYS AND URETERS: The kidneys are normal in size, shape, and attenuation. No hydronephrosis, hydroureter, or calculi seen. Bilateral renal cysts, largest on the right measuring 4.8 cm, left, 2.3 cm. No perinephric stranding. BLADDER: Unremarkable. GASTROINTESTINAL TRACT: Decompressed stomach. Nonobstructive bowel pattern. Unremarkable terminal ileum and appendix. Diverticulosis without diverticulitis. ABDOMINAL WALL: No significant hernia is appreciated. LYMPH NODES: Normal. VASCULAR: Atherosclerotic calcifications nonaneurysmal aorta with patency of the mesenteric vessels. Unremarkable inferior vena cava and iliac veins. Patent portal system. PELVIC VISCERA: Prostate calcification. Phleboliths. OSSEOUS STRUCTURES: Degenerative changes lumbar spine and bilateral hips. Right total hip replacement without acute fracture. CT/CT abdomen pelvis w IV con IMPRESSION: 1. No acute intra-abdominal or pelvic pathology. 2. Bilateral renal cysts. 3. Diverticulosis without diverticulitis. Fleischner guidelines were followed. Electronically signed by: Angelita Anthony MD 05/09/2024 12:26 PM EDT
--- NOTE | ~2024-05-09 | CT_ITS ---
EXAMINATION: CT CHEST WITH CONTRAST CLINICAL INFORMATION: Right lower rib pain after fall COMPARISON: 04/10/2024 chest radiograph, 11/13/2021 CT angiogram TECHNIQUE: Multidetector volumetric CT imaging of the chest was obtained after the administration of 50 mL of Omnipaque 350 intravenous contrast without immediate adverse reactions. Axial MIP volume rendering provided. Sagittal and coronal reformatted images were obtained. This CT examination was performed using dose optimization techniques as appropriate, variously including the following: *Automated exposure control *Adjustment of mA and/or kV according to patient size (this includes techniques or standardized protocols for targeted exams where dose is matched to indication/reason for exam; i.e. 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 Slightly elevated left hemidiaphragm. Degenerative changes. Right total hip replacement. Advanced degenerative change left hip. LUNGS: Trachea bronchi are patent. Diffuse mild bronchial wall thickening. Mild centrilobular emphysema. Scattered atelectasis. No consolidations or lung nodules. MEDIASTINUM: Unremarkable thyroid. Nonspecific mediastinal lymph nodes. No pathologic lymphadenopathy. Nonenlarged heart. No pericardial effusion. Degree of coronary calcifications: Moderately severe. Nonaneurysmal aorta with atherosclerotic calcifications. Prominent pulmonary arteries with no intra-arterial filling defects. PLEURA: There is no pleural effusion. No pleural mass or thickening. No pneumothorax. AXILLA: No lymphadenopathy. UPPER ABDOMEN: Status post cholecystectomy. Right upper pole renal cyst. OSSEOUS STRUCTURES: No acute bony pathology. CT/CT chest w IV con IMPRESSION: 1. No acute intrathoracic pathology. 2. Mild emphysema, bronchial wall thickening and scattered atelectasis. 3. Unchanged prominent pulmonary arteries, question pulmonary arterial hypertension. Fleischner guidelines were followed. Electronically signed by: Angelita Anthony MD 05/09/2024 01:25 PM EDT
--- NOTE | ~2024-05-09 | CT_ITS ---
EXAMINATION CT HEAD WITHOUT CONTRAST CT CERVICAL SPINE WITHOUT CONTRAST CLINICAL INFORMATION: Fall on anticoagulation COMPARISON: CT head December 17, 2020 TECHNIQUE: CT of the head was performed without intravenous contrast. Reformatted axial, coronal, and sagittal images were reviewed. Then, multidetector CT of the cervical spine was performed without intravenous contrast. Reformatted axial, coronal and sagittal images were reviewed. This CT examination was performed using dose optimization techniques as appropriate, variously including the following: *Automated exposure control *Adjustment of mA and/or kV according to patient size (this includes techniques or standardized protocols for targeted exams where dose is matched to indication/reason for exam; i.e. extremities or head) *Use of iterative reconstruction technique DLP: 2151 mGy-cm FINDINGS: HEAD: No intracranial hemorrhage, extra-axial fluid collection, or midline shift is identified. Up-white matter differentiation is preserved. Prominence of the cerebral sulci with commensurate ventriculomegaly consistent with age-related cerebral volume loss. Mild periventricular chronic microangiopathic disease.. Basal cisterns are within normal limits. Paranasal sinuses are clear. Mastoid air cells and middle ear cavities are clear. No acute calvarial fractures. CERVICAL SPINE: Straightening of the normal cervical lordosis. There is no fracture, malalignment or prevertebral soft tissue abnormality seen in the cervical spine. There is no abnormal widening of the predental space, separation of the lateral masses of C1 or facet joint distraction. No acute fracture or traumatic spondylolisthesis. Multilevel degenerative changes are present throughout the cervical spine, worst at C4-5 and C5-6 on the left secondary to uncovertebral hypertrophy and resulting in mild to moderate neuroforaminal stenosis. On the right, there is mild neural foraminal stenosis at C5-6 secondary to uncovertebral hypertrophy. Calcifications of the posterior longitudinal ligament. The visualized portions of the lung parenchyma is unremarkable. Bilateral carotid calcifications. CT/CT cervical spine wo IV con IMPRESSION: CT HEAD: 1. No acute intracranial abnormality. 2. Age-related cerebral volume loss and chronic small vessel ischemic disease. CT CERVICAL SPINE: 1. No acute fracture or malalignment of the cervical spine. 2. Multilevel degenerative changes, worst at C5-6. Electronically signed by: Robert Law DO 05/09/2024 11:43 AM EDT
[2024-05-09 07:30] VITALS: BP 127/63; PULSE 66; RESP 16; TEMP 36.2; O2SAT 94; BMI 32.2
--- NOTE | 2024-05-09 07:35 | ECG_ITS ---
Test Reason : FALL Blood Pressure : / mmHG Vent. Rate : 059 BPM Atrial Rate : 059 BPM P-R Int : 210 ms QRS Dur : 080 ms QT Int : 420 ms P-R-T Axes : 057 002 040 degrees QTc Int : 415 ms Sinus bradycardia with 1st degree A-V block Otherwise normal ECG When compared with ECG of 10-APR-2024 07:56, Premature atrial complexes are no longer Present Referred By: Generic ED Physician Electronically Signed By:Remington Johnson
[2024-05-09 07:57] LABS: MANUAL DIFF FLAG NO
[2024-05-09 07:58] LABS: Basophils Percent Auto 0.7 % (0-2); Eosinophils Absolute Auto 0.2 X10*3/uL (0.0-0.4); Eosinophils Percent Auto 2.8 % (0-4); Hematocrit 40.8 % (42.0-52.0); Imm Gran Abs Auto 0.03 X10*3/uL (0.00-0.03); Imm Gran Pct Auto 0.5 % (0.0-0.4); Lymphocytes Absolute Auto 0.9 X10*3/uL (1.2-4.9); Lymphocytes Percent Auto 13.8 % (20-40); Mean Corpuscular HGB Conc 34.3 g/dl (31.0-36.0); Mean Corpuscular Hemoglobin 32.9 pg (27.0-33.0); Mean Corpuscular Volume 95.8 fL (80.0-98.0); Mean Platelet Volume 9.4 fL (9.4-12.4); Monocytes Absolute Auto 0.5 X10*3/uL (0.1-1.2); Monocytes Percent Auto 8.5 % (2-11); Neutrophils Absolute Auto 4.5 x10*3/uL (2.0-8.3); Neutrophils Percent Auto 73.7 % (45-73); Platelet Count 167 X10*3/uL (160-400); Red Blood Count 4.26 X10*6/uL (4.60-5.80); Red Cell Distribution Width 13.5 % (11.0-16.0); White Blood Count 6.1 X10*3/uL (4.8-10.8)
--- NOTE | 2024-05-09 08:06 | ED_ITS ---
HPI - Fall General Chief Complaint: Fall Stated Complaint: Fall yesterday - rib injury, SOB Time Seen by Provider: 05/09/24 07:55 Source: patient and family Mode of arrival: ambulatory Limitations: no limitations History of Present Illness ED Provider: Yury Hodge PA-C HPI Narrative: A 83-year-old man with a history of paroxysmal AFib on Xarelto, CAD, HTN, seizures, hx right hip replacement in the past who presents to the ER from home for evaluation after he tripped and fell last night around 17:00. Patient states he was coming in his [place] [address] and tripped over the step, falling onto his right side. He states he fell hard onto his right hip. He did not hit his head or lose consciousness. He was slowly able to get up on his own. He was reporting right-sided hip pain, right flank pain, right lower lip rib pain and had difficulty sleeping due to the pain. He also reports pain in his right upper back. He sustained skin tears to his right hand. He denies any headache or neck pain. He did not have any chest pain, dizziness or lightheadedness prior to the fall. He has been going to physical therapy for an unsteady gait. MD complaint: fall Onset (ago): hour(s) Fall from: standing Fall witnessed: no Place fall occurred: home Loss of consciousness: none Prolonged down time: no Symptoms prior to fall: none Context: tripped/slipped Location of injury: back, abdomen and pelvis Severity: moderate Severity scale (1-10): 5 Quality: aching Associated symptoms (after fall): shortness of breath and abdominal pain Related Data Home Medications ?Medication ?Instructions ?Recorded ?Confirmed diclofenac sodium 1 % topical gel 1 ea topical QID 06/11/20 04/21/24 albuterol sulfate 90 mcg/actuation 2 puff inhalation Q4H PRN wheezing 12/12/20 04/21/24 aerosol inhaler ascorbic acid (vitamin C) 500 mg mg PO 05/22/21 04/21/24 capsule nitric oxide gas 100 PPM for ea inhalation 05/22/21 04/21/24 inhalation atorvastatin 20 mg tablet 20 mg PO DAILY 11/25/21 04/21/24 tamsulosin 0.4 mg capsule 0.4 mg PO BID 11/25/21 04/21/24 carboxymethylcellulose sodium 0.5 drp ophthalmic (eye) 03/12/22 04/21/24 % eye drops olopatadine 0.1 % eye drops 1 drp ophthalmic (eye) ONCE 03/12/22 04/21/24 citalopram 40 mg tablet 40 mg PO DAILY 04/19/23 04/21/24 levetiracetam 1,000 mg tablet 750 mg PO BID 04/19/23 04/21/24 furosemide 20 mg tablet 20 mg PO DAILY 12/02/23 04/21/24 ketotifen fumarate 0.025 % (0.035 drp ophthalmic (eye) 12/02/23 04/21/24 %) eye drops (Eye Itch Relief) nitroglycerin 0.3 mg sublingual mg sublingual 12/02/23 04/21/24 tablet Previous Rx's ?Medication ?Instructions ?Recorded lidocaine 5 % topical cream 1 appl topical BID PRN pain #15 05/12/22 grams rivaroxaban 20 mg tablet (Xarelto) 20 mg PO QPM #90 tabs 07/13/23 diltiazem HCl 180 mg 180 mg PO DAILY #90 caps 05/09/24 capsule,extended release 24 hr Allergies Allergy/AdvReac Type Severity Reaction Status Date / Time penicillin V Allergy Severe Hives Verified 05/09/24 07:31 piroxicam [PIROXICAM] Allergy Intermediate HIVES/SOB Verified 05/09/24 07:31 rofecoxib [From VIOXX] Allergy Intermediate HIVES/SOB Verified 05/09/24 07:31 Penicillins [PENICILLINS] Allergy Unknown UNKNOWN Verified 05/09/24 07:31 phenacetin [PHENACETIN] Allergy Unknown UNK Verified 05/09/24 07:31 From VICODIN Allergy Intermediate HIVES/SOB Uncoded 02/24/24 08:56 Review of Systems 2 Review of Systems: Yes all other systems are reviewed and are negative [facility] Past Medical History Medical History Chronic anticoagulation CAD (coronary artery disease) Seizure disorder Paroxysmal atrial fibrillation HTN (hypertension) Surgical History History of left knee surgery History of right hip replacement History of ear surgery S/P skin biopsy Social History Social History Alcohol intake: current Alcohol intake frequency: holidays/special occasions only Alcohol type: beer Patient Tobacco Use Status: Former Tobacco user Years Smoked: 30 +/- Smoked in Last 30 Days: No Use of substances other than those prescribed or required for medical reasons: No Advance Directives: Yes Advance Directives on File: No Do you have a plan to hurt others: No Plan Physical Exam 2 Vital Signs: Vital Signs: Last Vital Signs Temp 97.7 F 05/09/24 13:40 Pulse 60 05/09/24 13:40 Resp 17 05/09/24 13:40 BP 146/69 H 05/09/24 13:40 Pulse Ox 96 05/09/24 13:40 O2 Del Method Room Air 05/09/24 12:00 BMI result Body Mass Index 32.2 Appearance: Alert elderly male sitting on the side of the stretcher. Oriented X3. No acute distress. Head: normocephalic, atraumatic. Eyes: Pupils equal, round and reactive to light. ENT: Pharynx normal. No tonsillar swelling or exudate. Neck: Normal inspection. Neck supple. No midline tenderness CVS: Normal heart rate and rhythm. Pulses normal. Respiratory: No respiratory distress. Breath sounds normal. Tender right lateral ribs. Abdomen: Obese, soft with RUQ tenderness. no HSM apprecaited. +BS x4 Skin: Skin warm and dry. Normal skin color. Normal skin turgor. No rashes. Extremities: No lower extremity edema. No joint swelling. FROM of the right elbow and right shoulder, minimally tender elbow. right lateral hip tender to touch, no deformity. pain with flexion. Neuro/psych: Oriented X 3. No motor deficit. No sensory deficit. CN II-XII intact. Normal speech and cognition. Medications Administered Discontinued Medications Generic Name Dose Route Start Last Admin Trade Name Freq PRN Reason Stop Dose Admin Iohexol 100 ml 05/09/24 09:22 05/09/24 09:22 Iohexol 350 Mg/Ml 100 Ml Infus..Btl IV 05/09/24 09:23 85 ml ONCE ONE Administration Medical Decision Making Medical Decision Making MDM Narrative: A 83-year-old man with a history of paroxysmal AFib on Xarelto, CAD, HTN, seizures, hx right hip replacement in the past who presents to the ER from home for evaluation after he tripped and fell last night around 17:00. patient has right lateral rib tenderness, RUQ tenderness, right hip pain/tenderness/ pain with ROM. concern for possible rib fractures, intrathoracic injury, intraabdominal injury. labs and CT scans were performed. CT scans without acute fracture or intraabdominal injury. no liver lac. patient most likely suffering from rib contusions and hip contusion. he is ambulatory. he would like to go home. comfortable w/ d/c home with outpatient follow up. Differential Diagnosis Differential Diagnoses: The differential diagnosis associated with the presentation includes hip fracture, pubic rami fracture, rib fracture, pulmonary contusion, pneumothorax, liver laceration, RP hematoma Admission/Observation Consideration of admission/observation: Escalation of care including admission/observation considered Lab Data MDM Lab Attestation statement: I reviewed the patient's lab results. stable H/H, normal renal function 05/09/24 07:51 05/09/24 07:51 Labs: Lab Results 05/09/24 05/09/24 Range/Units 07:51 10:46 WBC 6.1 (4.8-10.8) X10*3/uL RBC 4.26 L (4.60-5.80) X10*6/uL Hgb 14.0 (14.0-18.0) g/dl Hct 40.8 L (42.0-52.0) % MCV 95.8 (80.0-98.0) fL MCH 32.9 (27.0-33.0) pg MCHC 34.3 (31.0-36.0) g/dl RDW 13.5 (11.0-16.0) % Plt Count 167 (160-400) X10*3/uL MPV 9.4 (9.4-12.4) fL Immature Gran % (Auto) 0.5 H (0.0-0.4) % Neut % (Auto) 73.7 H (45-73) % Lymph % (Auto) 13.8 L (20-40) % [place] % (Auto) 8.5 (2-11) % Eos % (Auto) 2.8 (0-4) % Baso % (Auto) 0.7 (0-2) % Lymph # (Auto) 0.9 L (1.2-4.9) X10*3/uL [place] # (Auto) 0.5 (0.1-1.2) X10*3/uL Eos # (Auto) 0.2 (0.0-0.4) X10*3/uL Baso # (Auto) 0.0 (0.0-0.2) X10*3/uL Abs Immat Gran (auto) 0.03 (0.00-0.03) X10*3/uL Absolute Neuts (auto) 4.5 (2.0-8.3) x10*3/uL Absolute Nucleated RBC 0.000 (0.0-0.012) X10*3/uL Nucleated RBC % (auto) 0.0 (0.0-0.2) /100WBC Sodium 142 (135-145) mmol/L Potassium 3.9 (3.3-5.1) mmol/L Chloride 106 (96-108) mmol/L Carbon Dioxide 27 (22-29) mmol/L Anion Gap 13 (12-20) BUN 17 H (9-16) mg/dL Creatinine 0.77 (0.5-1.4) mg/dL Estim Creat Clear Calc 84.2 Estimated GFR > 60 Random Glucose 105 (60-115) mg/dL Calcium 9.4 (8.4-10.2) mg/dL Total Bilirubin 0.8 (0.0-1.0) mg/dL AST 24 (5-37) U/L ALT 21 (0-40) U/L Alkaline Phosphatase 51 (39-117) U/L Total Protein 6.8 (6.5-8.0) g/dL Albumin 4.1 (3.5-5.0) g/dL Urine Color Yellow Urine Appearance Clear Urine pH 7.0 (5.0-9.0) Ur Specific [place] >= 1.030 H (1.005-1.025) Urine Protein Negative (Neg-Trace) mg/dL Urine Glucose (UA) Negative (Negative) mg/dL Urine Ketones Negative (Negative) mg/dL Urine Blood Negative (Negative) Urine Nitrite Negative (Negative) Ur Leukocyte Esterase Negative (Negative) Independent Interpretation I performed an independent interpretation of an: CT Scan Interpretation: CT scans reviewed - no acute bleed or edema in the brain, no appreciated rib fx, no PTX, normal appearing liver without free fluid in the abdomen Radiology Impression Discussion of test interpretation with radiology: I have reviewed the radiologist's reading. Independent Historian Clinical information obtained from an independent historian. History obtained from or confirmed by: Other (adult daugther at bedside) External Record Review External record reviewed: Outpatient record, Prior outpatient labs and Prior outpatient radiology Prescription Management I considered prescription management with: Pain Medication Chronic Conditions Patient?s care impacted by: Other (afib) Social Determinants Patient?s care significantly limited by Social Determinants of Health including: Other Social Determinant of Health (lives home alone) Critical Care Time Critical Care Time Critical Care Time: No Discharge Plan Discharge Clinical Impression: Contusion of rib on right side, Contusion of hip Patient Disposition: Home, Self-Care Instructions: Hip Contusion (ED), Rib Contusion (ED) Additional Instructions: Your imaging today did not show any acute fractures or injuries. Recommend Tylenol 1000 mg every 6-8 hours as needed for pain. Use ice and or heat to the area as needed for pain. Use bacitracin to the skin tears once or twice per day. Follow-up with your doctor. If you develop new or worsening symptoms call 911 or come back to the ER for further evaluation. Prescriptions: No Action Xarelto 20 mg tablet 20 mg PO QPM Qty: 90 3RF diltiazem HCl 180 mg capsule,extended release 24hr 180 mg PO DAILY Qty: 90 1RF lidocaine 5 % cream 1 appl topical BID PRN (Reason: pain) Qty: 15 0RF diclofenac sodium 1 % gel 1 ea topical QID albuterol sulfate 90 mcg/actuation HFA aerosol inhaler 2 puff inhalation Q4H PRN (Reason: wheezing) ascorbic acid (vitamin C) 500 mg capsule PO nitric oxide gas 100 PPM gas inhalation tamsulosin 0.4 mg capsule 0.4 mg PO BID atorvastatin 20 mg tablet 20 mg PO DAILY olopatadine 0.1 % drops 1 drp ophthalmic (eye) ONCE carboxymethylcellulose sodium 0.5 % drops ophthalmic (eye) levetiracetam 1,000 mg tablet 750 mg PO BID furosemide 20 mg tablet 20 mg PO DAILY ketotifen fumarate [Eye Itch Relief] 0.025 % (0.035 %) drops ophthalmic (eye) nitroglycerin 0.3 mg tablet, sublingual sublingual citalopram 40 mg tablet 40 mg PO DAILY Referrals: Grabiel Kasper MD [Primary Care Provider] - Interventions: ED Discharge Assessment Last Done: 05/09/24 13:40 Discharge Date/Time: 05/09/24 13:49 Print Language: Panamanian
[2024-05-09 08:12] LABS: Alanine Aminotransferase 21 U/L (0-40); Albumin Level 4.1 g/dL (3.5-5.0); Alkaline Phosphatase 51 U/L (39-117); Anion Gap 13 (12-20); Aspartate Amino Transferase 24 U/L (5-37); Bilirubin Total 0.8 mg/dL (0.0-1.0); Blood Urea Nitrogen 17 mg/dL (9-16); Calcium 9.4 mg/dL (8.4-10.2); Carbon Dioxide 27 mmol/L (22-29); Chloride 106 mmol/L (96-108); Creatinine Clr Calc Pharmacy 84.2; Estimated Glomerular Filt Rate > 60; Glucose Random 105 mg/dL (60-115); Potassium 3.9 mmol/L (3.3-5.1); Sodium 142 mmol/L (135-145); Total Protein 6.8 g/dL (6.5-8.0)
[2024-05-09] MEDS: iohexoL 350 MG/ML 100 ML INFUS..BTL IV (09:22)
[2024-05-09 10:00] VITALS: BP 138/61; PULSE 55; RESP 16; TEMP 36.5; O2SAT 95
[2024-05-09 11:12] LABS: Appearance Urine Clear; Color Urine Yellow; Glucose Urine UA Negative (Negative); Leukocyte Esterase Urine Negative (Negative); Nitrite Urine Negative (Negative); Specific Gravity - Urine >= 1.030 (1.005-1.025); Urine Blood Negative (Negative); Urine Ketones Negative (Negative); Urine Protein Negative (Neg-Trace)
[2024-05-09 12:00] VITALS: BP 146/69; PULSE 60; RESP 17; O2SAT 96
[2024-05-09 13:40] VITALS: BP 146/69; PULSE 60; RESP 17; TEMP 36.5; O2SAT 96
== END 2024-05-09 13:49 | disposition home or self-care (01) ==
PROVIDERS: Emergency Provider Emergency Medicine; PCP Family Medicine
DX: S20.211A Contusion of right front wall of thorax, initial encounter (principal); S70.01XA Contusion of right hip, initial encounter; R00.1 Bradycardia, unspecified; R06.02 Shortness of breath; M54.2 Cervicalgia; R51.9 Headache, unspecified; W01.0XXA Fall on same level from slipping, tripping and stumbling without subsequent striking against object, initial encounter; Y93.89 Activity, other specified; Y92.89 Other specified places as the place of occurrence of the external cause; Y99.8 Other external cause status; Z79.899 Other long term (current) drug therapy
CPT/HCPCS: 36415; 70450; 71260; 72125; 74177; 80053; 81003; 85025; 93005; 99284; 99285; Q9967

== ENCOUNTER → 2024-05-09 07:35 | Outpatient (BNV) | payer OTHER, SELFPAY | PROVIDERS: Emergency Provider Emergency Medicine; PCP Family Medicine; Visit Provider Internal Medicine Cardiovascular Disease | DX: I44.0 Atrioventricular block, first degree (principal) | CPT/HCPCS: 93010 ==

== ENCOUNTER 2024-07-07 09:41 | Outpatient (AMB) | payer OTHER, SELFPAY ==
--- OUTSIDE RECORDS SUMMARY | 2024-07-07 09:43 | XMS_ITS | Continuity of Care Document ---
Author Name [facility] Organization [facility] Care Team Providers Care Commercial Lines Manager Name Role Phone [facility] Unavailable Unavailable Problems Combined list of problems from Department of Defense and Veterans Affairs facilities. It does not include entries that were removed or entered in error. Problem Status Onset Date Problem Type Date of Resolution Comments Source Atrial fibrillation Active Condition Oct 05, 2016 Entered By: MALGORZATA CREWS Comment: jnenifer. cardiology [facility]. 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 [facility] H/O: osteoarthritis Active Condition Oct 05, 2016 Entered By: MALGORZATA CREWS Comment: L knee chronic limitation in ROMOct 05, 2016 Entered By: MALGORZATA CREWS Comment: h/o R hip replacementOct 05, 2016 Entered By: MALGORZATA CREWS Comment: h/o L rotator cuff repairOct 05, 2016 Entered By: MALGORZATA CREWS Comment: h/o r ankle surgery related to trauma/fall [facility] Hepatitis C Active Condition Oct 05, 2016 Entered By: MALGORZATA CREWS Comment: referred to Hep C clinic 10/05/16Jan 07, 2018 Entered By: POORNIMA NAVARRO Comment: Pt achieved SVR after 12 weeks of Harvoni in 2018 [facility] Lumbosacral radiculopathy Active Condition [facility] Multiple renal cysts Active Condition [facility] Polyneuropathy Active Condition [facility] Seizure disorder Active Condition Nov 16, 2023 Entered By: POLLY CLIFFORD Comment: nonconvulsive seizures. on [facility], sees Dr. 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 Active Diagnosis [facility] Diagnosis: ICD-10-CM K59.00 Constipation, unspecified Active Diagnosis [facility] Diagnosis: ICD-10-CM Z46.1 Encounter for fitting and adjustment of hearing aid Active Diagnosis [facility] Diagnosis: ICD-10-CM J44.9 Chronic obstructive pulmonary disease, unspecified Active Diagnosis [facility] Diagnosis: ICD-10-CM 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 Diagnosis [facility] Diagnosis: ICD-10-CM H43.813 Vitreous degeneration, bilateral Active Diagnosis [facility] Diagnosis: ICD-10-CM Z46.0 Encounter for fit/adjst of spectacles and contact lenses Active Diagnosis [facility] Diagnosis: ICD-10-CM H04.123 Dry eye syndrome of bilateral lacrimal glands Active Diagnosis [facility] Medications Combined list of outpatient medications from Department of Defense and Veterans Affairs facilities.Medications provided include 1) outpatient medications from the last 15 months, and 2) patient-reported medications. Medication Details Route Status Patient Instructions Prescription Expires Prescription Number Last Dispense Date Ordering Provider Order Date Order Qty Source ACETAMINOPH EN 500MG TAB TAKE ONE TABLET BY MOUTH TWICE DAILY ORAL ACTIVE JERRY NAVARRO 2016 [facility] ALBUTEROL 90MCG/ACTUA T (CFC-F) INHL,ORAL,8 .5GM DOSE COUNTER INHALE 2 PUFFS BY MOUTH EVERY 4 HOURS NEEDED RESPIR ATORY (INHAL ATION) ACTIVE ELEONORA, [facility] 2016 [facility] ATORVASTATI N CA 40MG TAB TAKE ONE-HALF TABLET BY MOUTH AT BEDTIME ORAL ACTIVE FURCOLO,T ROQUE 2023 [facility] carboxymeth ylcel 0.5% EYE DROP [2 X15ML] INSTILL 1 DROP INTO EACH EYE FOUR TIMES A DAY 03/16/2024 [id number] VIVI WARNER 2023 15 [facility] CARBOXYMETH YLCELLULOSE NA 0.5% SOLN,OPH INSTILL 1 DROP INTO EACH EYE FOUR TIMES A DAY OPHTHA LMIC 03/16/2024 [id number] VIVI WARNER 2022 15 [facility] CITALOPRAM HYDROBROMID E 40MG TAB TAKE ONE TABLET BY MOUTH ONCE DAILY ORAL ACTIVE FURCOLO,T ROQUE 2023 [facility] DILTIAZEM HCL 90MG 12HR CAP,SA TAKE 2 CAPSULES BY MOUTH DAILY ORAL ACTIVE ELEONORA,[facility] 2016 [facility] FUROSEMIDE 20MG TAB TAKE ONE TABLET BY MOUTH ONCE DAILY NEEDED ORAL ACTIVE FURCOLO,T ROQUE 2023 [facility] KETOTIFEN 0.025 % EYE DROP [10 ML] INSTILL 1 DROP INTO EACH EYE EVERY 12 HOURS FOR ALLERGIC CONJUNCT IVITIS (IF YOU WEAR CONTACT LENSES, WAIT 10 MINUTES BEFORE INSERTIN G LENSES) 11/17/2023 [id number] SHALONDA KOENIG E 2023 15 [facility] KETOTIFEN 0.025% SOLN,OPH INSTILL 1 DROP INTO EACH EYE EVERY 12 HOURS FOR ALLERGIC CONJUNCT IVITIS (IF YOU WEAR CONTACT LENSES, WAIT 10 MINUTES BEFORE INSERTIN G LENSES) OPHTHA LMIC ACTIVE 01/21/2025 [id number] FURCOLO,T ROQUE 2023 15 [facility] KETOTIFEN 0.025% SOLN,OPH INSTILL 1 DROP INTO EACH EYE EVERY 12 HOURS FOR ALLERGIC CONJUNCT IVITIS (IF YOU WEAR CONTACT LENSES, WAIT 10 MINUTES BEFORE INSERTIN G LENSES) OPHTHA LMIC DISCONT INUED 11/17/2023 [id number] 4 Helena KOENIG NDREW E 2022 15 [facility] LEVETIRACET AM 500MG TAB TAKE TWO TABLETS BY MOUTH TWICE DAILY ORAL ACTIVE FURCOLO,T ROQUE 2023 [facility] MINERAL OIL,LIGHT/P ETROLATUM (PF) OINT,OPH APPLY THIN RIBBON INTO EACH EYE AT BEDTIME FOR DRY EYE OPHTHA LMIC 02/16/2024 [id number] 4 Helena KOENIG NDREW E 2022 3 [facility] MULTIVITAMI NS CAP/TAB TAKE ONE TABLET BY MOUTH DAILY ORAL ACTIVE JERRY NAVARRO 2016 [facility] NITROGLYCER IN 0.4MG TAB,SUBLING UAL DISSOLVE ONE TABLET UNDER THE TONGUE EVERY 5 MINUTES NEEDED SUBLIN GUAL ACTIVE FURCOLO,T ROQUE 2023 [facility] PSYLLIUM PWDR,ORAL TAKE 1 TEASPOON FUL BY MOUTH ONCE DAILY ORAL ACTIVE FURCOLO,T ROQUE 2023 [facility] RIVAROXABAN 20MG TAB TAKE ONE TABLET BY MOUTH DAILY ORAL ACTIVE MEREDITH CREWS 2016 [facility] SENNOSIDES 8.6MG TAB TAKE ONE TABLET BY MOUTH ONCE DAILY ORAL ACTIVE FURCOLO,T ROQUE 2023 [facility] TAMSULOSIN HCL 0.4MG CAP TAKE 1 CAPSULE BY MOUTH ONCE DAILY ORAL ACTIVE FURCOLO,T ROQUE 2023 [facility] UMECLIDINIU M 62.5MCG/ALFA ANTEROL 25MCG/ACTUA T INH,ORAL,30 D INHALE 1 INHALATI ON BY MOUTH ONCE DAILY RESPIR ATORY (INHAL ATION) ACTIVE FURCOLO,T ROQUE 2023 [facility] Allergies, Adverse Reactions, Alerts Combined list of allergies from Department of Defense and Veterans Affairs facilities. It does not include entries that were removed or entered in error. Substance Category Reaction Severity Reaction type Status Date Reported Comments Source Codeine Drug allergy (disorder) active 7 [facility] CODEINE Propensity to adverse reactions to drug (finding) active 7 [facility] Hydrocodone Drug allergy (disorder) Anxiety active 7 [facility] HYDROCODONE Drug allergy (disorder) active 4 [facility] Piroxicam Drug allergy (disorder) active 7 [facility] PIROXICAM Propensity to adverse reactions to drug (finding) active 7 [facility] VICODIN Propensity to adverse reactions to drug (finding) Anxiety active 7 [facility] Immunizations Combined list of available immunizations from the Department of Defense and Veterans Affairs facilities. Immunization Series Date Given Administered By Site Reaction Lot Number CVX Code Drug Android Framework Developer Status Comments Source INFLUENZA, UNSPECIFIED FORMULATION 2022 88 complet ed [facility] COVID-19 (MODERNA), MRNA, LNP-S, PF, 100 MCG/0.5 ML DOSE 2 2020 207 complet ed MOD; [id number]; 1 [facility] COVID-19 (MODERNA), MRNA, LNP-S, PF, 100 MCG/0.5 ML DOSE 1 2020 207 complet ed MOD; [id number]; 1 [facility] INFLUENZA, UNSPECIFIED FORMULATION 2019 88 complet ed [facility] PNEUMOCOCCAL POLYSACCHARID E PPV23 2019 33 complet ed [facility] INFLUENZA, SEASONAL, INJECTABLE 2018 141 complet ed [employer] [employer] [facility] INFLUENZA, SEASONAL, INJECTABLE 2017 141 complet ed [facility] ZOSTER RECOMBINANT 2 2017 187 complet ed [facility] ZOSTER RECOMBINANT 1 2017 187 complet ed [facility] HEP A-HEP B 2016 104 complet ed Site: Left Deltoid [facility] INFLUENZA, SEASONAL, INJECTABLE 2016 141 complet ed [facility] HEP A-HEP B 2016 104 complet ed Site: Left Deltoid [facility] HEP A-HEP B 2016 104 complet ed Site: Left Deltoid [facility] FLU,3 YRS (HISTORICAL) 2016 88 complet ed [facility] PNEUMOCOCCAL CONJUGATE PCV 13 2016 133 complet ed [place] [facility] FLU,3 YRS (HISTORICAL) 2015 88 complet ed [place] - High dose [facility] PNEUMOCOCCAL CONJUGATE PCV 13 2015 133 complet ed [place] [facility] ZOSTER (HISTORICAL) 2015 121 complet ed [place] [facility] TDAP 2015 115 complet ed [place] [facility] FLU,3 YRS (HISTORICAL) 2014 88 complet ed [place] [facility] FLU,3 YRS (HISTORICAL) 2013 88 complet ed [place] [facility] PNEUMOCOCCAL CONJUGATE PCV 13 2013 133 complet ed [place] [facility] FLU,3 YRS (HISTORICAL) 2012 88 complet ed [place] [facility] TDAP 2012 115 complet ed [place] [facility] FLU,3 YRS (HISTORICAL) 2011 88 complet ed [place] [facility] FLU,3 YRS (HISTORICAL) 2010 88 complet ed [place] [facility] TD(ADULT) UNSPECIFIED FORMULATION 2009 139 complet ed [place] [facility] FLU,3 YRS (HISTORICAL) 2009 88 complet ed [place] [facility] FLU,3 YRS (HISTORICAL) 2009 88 complet ed [place] -[id number] demic flu [facility] FLU,3 YRS (HISTORICAL) 2008 88 complet ed [place] [facility] ZOSTER (HISTORICAL) 2007 121 complet ed [place] [facility] FLU,3 YRS (HISTORICAL) 2007 88 complet ed [place] [facility] FLU,3 YRS (HISTORICAL) 2006 88 complet ed [place] [facility] FLU,3 YRS (HISTORICAL) 2005 88 complet ed [place] [facility] FLU,3 YRS (HISTORICAL) 2004 88 complet ed [place] [facility] PNEUMOCOCCAL CONJUGATE PCV 13 2004 133 complet ed [place] [facility] TD(ADULT) UNSPECIFIED FORMULATION 2003 139 complet ed [place] [facility] Vital Signs Combined list of inpatient and outpatient Vital Signs from Department of Defense and Veterans Affairs, ranging from 12 months to all on record, depending upon the facility. Vital Sign Value Date Comments Source SYSTOLIC BLOOD PRESSURE 127 11/16/19 24 11:00:02 [facility] DIASTOLIC BLOOD PRESSURE 74 024 11:00:02 [facility] PULSE OXIMETRY 94 11/16/2023 11:00:02 [facility] WEIGHT 218 11/16/2023 11:00:02 [facility] BMI 32kg/m2 11/16/2023 11:00:02 [facility] PAIN 0 11/16/2023 11:00:02 [facility] HEIGHT 69 11/16/2023 11:00:02 [facility] TEMPERATURE 98.5 11/16/2023 11:00:02 [facility] PULSE 68 11/16/2023 11:00:02 [facility] RESPIRATION 16 11/16/2023 11:00:02 [facility] Encounters Combined list of: 1) Encounters from Department of Veterans Affairs facilities going back up to thelas 18 months. 2) Encounters from the Department of Defense facilities going back up to 280 months. Location Location Details Encounter Type Encounter Number Reason For Visit Attending Provider ADM Date DC Date Status Disposition Source [facility] EYE EXAM ESTABLISH PATIENT [id number] Diagnos is: ICD-10- CM H04.123 Dry eye syndrom e of bilater al lacrima l glands< br/> IGLESIA KOENIG JOHN PAUL E 02/15 [facility] Outpatient [facility]counter [id number] 03/05 [facility] Outpatient Encounter [id number] 03/08 [facility] Outpatient Encounter [id number] 03/13 [facility] EAR IMPRESSION [id number] Diagnos is: ICD-10- CM Z46.1 Encount er for fitting and adjustm ent of hearing aid<br/ > Preet ANN 03/16 [facility] REPAIR & ADJUST SPECTACLES [id number] Diagnos is: ICD-10- CM Z46.0 Encount er for fit/adj st of spectac les and contact lenses< br/> RICHIE KIDD 03/17 [facility] DETERMINE REFRACTIVE STATE [id number] Diagnos is: ICD-10- CM H43.813 Vitreou s degener atsulaiman [place]
VIVI WARNER 03/17 [facility] Outpatient Encounter [id number] 03/25 [facility] Outpatient [facility]counter [id number] 03/27 [facility] Outpatient Encounter [id number] 04/04 [facility] Outpatient Encounter [id number] 05/03 [facility] Outpatient Encounter [id number] 06/03 [facility] Outpatient Encounter [id number] 06/17 [facility] HEARING AID REPAIR/MOD IFYING [id number] Diagnos is: ICD-10- CM Z46.1 Encount er for fitting and adjustm ent of hearing aid<br/ > RAPHAEL CALLE 07/01 [facility] Outpatient Encounter [id number] 07/20 [facility] Out[facility] Encounter [id number] 07/21 [facility] Outpatient Encounter [id number] 07/23 [facility] INTRM OPH EXAM EST PATIENT [id number] Diagnos is: ICD-10- CM 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<br/ > VIVI WARNER 07/30 [facility] Out[facility] Encounter [id number] 07/30 [facility] Outpatient Encounter [id number] 08/01 [facility] Outpatient Encounter [id number] 08/19 [facility] HEARING AID REPAIR/MOD IFYING [id number] Diagnos is: ICD-10- CM Z46.1 Encount er for fitting and adjustm ent of hearing aid<br/ > HUBER ESPINOZA 10/10 [facility] Outpatient Encounter [id number] SHAINA TERRAZAS 10/24 [facility] Outpatient Encounter [id number] 10/28 [facility] OFFICE O/P [place] 60 MIN [id number] Diagnos is: ICD-10- CM J44.9 Chronic obstruc tive pulmona ry disease , unspeci fied
FURCOLO,TI NA 11/15 [facility] Out[facility] Encounter [id number] 12/02 [facility] Outpatient Encounter [id number] 12/05 [facility] Outpatient Encounter [id number] 12/14 [facility] Outpatient Encounter [id number] 12/24 [facility] HEARING AID FITTING/CH ECKING [id number] Diagnos is: ICD-10- CM Z46.1 Encount er for fitting and adjustm ent of hearing aid<br/ > Preet ANN 12/26 [facility] OFFICE O/P EST LOW 20 MIN [id number] Diagnos is: ICD-10- CM K59.00 Constip ation, unspeci fied
FURCOLO,TI NA 12/30 [facility] Out[facility]counter [id number] 01/20 [facility] Outpatient [facility]counter [id number] 01/26 [facility] Outpatient Encounter [id number] 02/03 [facility] Outpatient Encounter [id number] 02/03 [facility] Outpatient Encounter [id number] 02/03 [facility] Outpatient Encounter [id number] 02/07 [facility] INTRM OPH EXAM EST PATIENT [id number] Diagnos is: ICD-10- CM 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
VIVI WARNER 02/09 [facility] Out[facility] Encounter [id number] 02/09 [facility] Outpatient Encounter [id number] 05/23 [facility] Outpatient Encounter [id number] 06/22 [facility] Outpatient Encounter [id number] 07/01 [facility] Out[facility] Encounter [id number]/[id number] [facility] Social History Combined list of available smoking, tobacco, and other social history from Department of Defense and Veterans Affairs facilities. Social History Type Response Date Comment Sourc e Tobacco smoking status NHIS VA-TOBACCO FORMER USER 10/29/2023 [facility] History of tobacco use VA-TOBACCO QUIT 15 YRS OR MORE 10/29/2023 [facility] History of tobacco use VA-TOBACCO QUIT 15 YRS OR MORE 08/23/2019 [facility] History of tobacco use VA-TOBACCO FORMER USER 06/28/2018 [facility] History of tobacco use QUIT TOBACCO USE > 7 YEARS AGO 10/14/2017 [facility] History of tobacco use QUIT TOBACCO USE > 7 YEARS AGO 10/05/2016 [facility] This section is an empty social history section. DoD Plan of Care List of future care activities from Department of Veterans Affairs facilities. Additional future care activities may be listed in the Assessment and Plan section. Date/Time Care Activity Care Activity Detail Facili ty 07/10/2024 AMBULATORY - MEDICINE AMBULATORY - [facility]ICI [facility] 11/13/2024 AMBULATORY - MEDICINE AMBULATORY - [facility]IC[facility] 06/30/2024 Laboratory - Commercial Sales Consultant ry Order BASIC METABOLIC PANEL (non-fasting) BLOOD (SST-SERUM) [facility] 06/30/2024 Laboratory - Commercial Sales Consultant ry Order CBC BLOOD (LAV-BLOOD) [facility] 06/30/2024 Laboratory - Commercial Sales Consultant ry Order TSH BLOOD (SST-SERUM) [facility] 06/30/2024 Laboratory - Commercial Sales Consultant ry Order LIPID PANEL, NON FASTING BLOOD (SST-SERUM) [facility] Advance Directives List of completed, amended, or rescinded Advance Directives on record at Department of [facility] facilities. An actual copy of the Directive is not included. Date Advance Directive Provider Source 11/16/2023 ADVANCE DIRECTIVE MARC METZGER [facility]
--- OUTSIDE RECORDS SUMMARY | 2024-07-07 09:43 | XMS_ITS ---
Author Name [facility] [place] Address [address] [place] [address] Care Team Providers Care Structural Metal Fabricator Apprentice Name Role Phone POLLY CLIFFORD Primary Care Provider Unavailabl e Insurance Providers: All historical and current Section Date Range: From patient's date of to the date document was created. This section includes the names of all active insurance providers for the patient. Insurance Provider Type of Coverage Plan Name Start of Policy Coverage End of Policy Coverage Group Number Member ID Insurance Provider's Telephone Number Policy Cherry's Name Patient's Relationship to Policy Cherry [facility] (WNR) MEDICARE ADVANTAGE [facility] (WNR) Jul 19, 2023 [id number] YULIRayne GARCIA PATIENT CAREMARK PRESCRIPT ION [id number] 1 Jul 19, 2017 [id number] [phone] Rayne JACOBO PATIENT CAR[facility]ARK PRESCRIPT ION [id number] 1 Jul 19, 2017 [id number] Rayne JACOBO PATIENT MEDICARE (WNR) MEDICARE (M) PART A Sep 16, 2005 PART A [id number] Rayne JACOBO PATIENT MEDICARE (WNR) MEDICARE (M) PART B Sep 16, 2005 PART B [id number] AVELINARENDY SRSUKI PATIENT MEDICARE (WNR) MEDICARE (M) PART A Sep 16, 2005 PART A AVELINARENDY SRSUKI PATIENT MEDICARE (WNR) MEDICARE (M) PART B Sep 16, 2005 PART B [id number] AVELINARENDY SRSUKI PATIENT MEDICARE (WNR) MEDICARE (M) PART A Sep 16, 2005 PART A [id number] AVELINARENDY SRSUKI PATIENT MEDICARE (WNR) MEDICARE (M) PART B Sep 16, 2005 PART B [id number] AVELINARSUKI SCHUMACHER SR PATIENT OPTUM RX PRESCRIPT ION RX Jul 19, 2022 THPRX [id number] [phone] Rayne JACOBO PATIENT OPTUM RX PRESCRIPT ION RX Jul 19, 2022 THPRX [id number] [phone] Rayne JACOBO PATIENT OPTUM RX PRESCRIPT ION RX Jul 19, 2022 THPRX [id number] [phone] Rayne JACOBO PATIENT [facility] Jul 19, 2017 [id number] AVELINASiddharthaRayne SCHUMACHER PATIENT [facility] Jul 19, 2017 [facility] [id number] Rayne JACOBO PATIENT [facility] KARIN Moya Jul 19, 2017 [id number] [phone] YULIRayne GARCIA PATIENT [facility] CE ORGANIZ US FAMIL Y Jul 21, 2013 (WNR) [id number] DONNELLRayne SHELLEY PATIENT [facility] (R) TRICA RE(WN R) Jul 19, 2017 (WNR) [id number] Rayne JACOBO SHELLEY PATIENT Selected Encounter This section includes the information on record at [place] for the Encounter. Date/Time Encounter Type Encounter Description Reason Pro vider Source Jul 21, 2023 09:04 AM Outpatient Encounter TELEPHONE/REHAB AND SUPPORT IHE Encounter Template Text not used by AR Plan of Treatment: Future Appointments (+ 6 months) and Future Tests (+/- 45 days) The Plan of Treatment section includes future care activities for the patient from all [place] [facility]. This section includes future appointments and future orders which are active, pending or scheduled. Future Appointments This section includes appointments that were scheduled to occur 6 months from the date of the Encounter, up to a maximum of 20 appointments. The data comes from all [place] treatment facilities. Appointment Date/Time Appointment Type Appointme nt Facility Name Jul 30, 2023 08:30 AM AMBULATORY - MEDICINE [facility] [place] [facility] Oct 11, 2023 02:30 PM AMBULATORY - REHAB MEDICIN E [place] [facility] [place] [facility] Nov 16, 2023 11:00 AM AMBULATORY - MEDICINE [facility] [place] [facility] Dec 27, 2023 01:00 PM AMBULATORY - REHAB MEDICIN E [place] [facility] [place] [facility] Dec 31, 2023 10:30 AM AMBULATORY - MEDICINE [facility] [place] [facility] Social History: Smoking Status (Most current) and Tobacco Use (All prior to encounter date) This section includes the most current, and the historical, smoking and tobacco- related health factors from the [place] facility where the Encounter took place. Current Smoking Status This section includes the most current smoking, or tobacco-related health factor, from the [place] facility where the Encounter took place. Date/Time Current Smoking Status Comment Facil ity Aug 23, 2019 09:07 AM AR-TOBACCO [facility] Tobacco Use History This section includes a history of the smoking, or tobacco-related health factors, that were collected on or before the date of the Encounter. The data comes from the [place] facility where the Encounter took place. Date/Time Smoking Status/Tobacco Use Comment F acility Aug 23, 2019 09:07 AM VA-TOBACCO QUIT 15 YRS OR MORE [place] [facility] [place] [facility] Jun 28, 2018 10:50 AM VA-TOBACCO FOR[facility]ER [facility] Jun 28, 2018 10:50 AM VA-TOBACCO QUIT 15 YRS OR MORE [place] [facility] [place] [facility] Oct 14, 2017 09:20 AM QUIT TOBACCO USE > [facility] Oct 05, 2016 01:02 PM QUIT TOBACCO USE > [address] [facility] Advance Directives: All historical and current Section Date Range: From patient's date of to the date document was created. This section includes ALL of a patient's completed or amended [place] Advance and Rescinded Directives. The entries below indicate that a directive exists for the patient, but an actual copy is not included with this document. The data comes from all [place] facilities. Date Advance Directives Provider Source Nov 16, 2023 ADVANCE DIRECTIVE MARC METZGER [facility] Encounter Notes: All associated encounter notes This section contains the clinical notes associated to the Encounter. Date/Time Encounter Note(s) Provider Source Aug 04, 2023 09:22 AM ADDENDUM: LOCAL TITLE: Addendum STANDARD TITLE: ADDENDUM DATE OF NOTE: AUG 04, 2023@09:22:58 ENTRY DATE: AUG 04, 2023@09:22:58 AUTHOR: RITIKA HARTMANN EXP COSIGNER: URGENCY: STATUS: COMPLETED called today states he has not been able to find his RIGHT hearing aid. Alerting Dr. Gibbs to review. /alba/ RITIKA HARTMANN Audiology Health Vessel Manager Signed: 08/04/2023 09:24 Receipt Acknowledged By: 08/04/2023 09:27 /alba/ JAIRO CUEVAS STAFF MANUFACTURING QUALITY INSPECTOR === --- Original Document --- 07/21/23 AUDIOLOGY DEVICE DAMAGED LOSS NOTE: Spoke to Laporte and he explained that he has lost his RIGHT hearing aid, I explained to him our loss and damage policy and to look for it for the next 2 weeks, and to contact clinic on or around 08/03/2023 if hearing aid is not located. Hearing aid under warranty until : 10/16/2023 /filippo NUNEZ SUPERVISORY SECURITY MANAGER Signed: 07/21/2023 09:05 RITIKA HARTMANN [place] [facility] [place] [facility] Jul 21, 2023 09:05 AM AUDIOLOGY ADMINISTRATIVE NOTE: LOCAL TITLE: AUDIOLOGY DEVICE DAMAGED LOSS NOTE STANDARD TITLE: AUDIOLOGY ADMINISTRATIVE NOTE DATE OF NOTE: JUL 21, 2023@09:05 ENTRY DATE: JUL 21, 2023@09:05:07 AUTHOR: FLORENCE NUNEZ EXP COSIGNER: URGENCY: STATUS: COMPLETED AUDIOLOGY DEVICE DAMAGED LOSS NOTE Has ADDENDA Spoke to Laporte and he explained that he has lost his RIGHT hearing aid, I explained to him our loss and damage policy and to look for it for the next 2 weeks, and to contact clinic on or around 08/03/2023 if hearing aid is not located. Hearing aid under warranty until : 10/16/2023 /filippo NUNEZ SUPERVISORY SECURITY MANAGER Signed: 07/21/2023 09:05 08/04/2023 ADDENDUM STATUS: COMPLETED called today states he has not been able to find his RIGHT hearing aid. Alerting Dr. Gibbs to review. /alba/ RITIKA HARTMANN Audiology Health Vessel Manager Signed: 08/04/2023 09:24 Receipt Acknowledged By: 08/04/2023 09:27 /alba/ JAIRO CUEVAS STAFF MANUFACTURING QUALITY INSPECTOR 08/04/2023 ADDENDUM STATUS: COMPLETED The right one-time L&D hearing aid was ordered on this date. Once device arrives restore user settings and mail to . /alba/ JAIRO CUEVAS STAFF MANUFACTURING QUALITY INSPECTOR Signed: 08/04/2023 09:29 08/11/2023 ADDENDUM STATUS: COMPLETED Right L&D hearing aid received and certified, restored user settings and mailed to address on file. /alba/ RITIKA HARTMANN Audiology Health Vessel Manager Signed: 08/11/2023 09:28 FLORENCE NUNEZ AR [facility]
--- OUTSIDE RECORDS SUMMARY | 2024-07-07 09:43 | XMS_ITS | Encounter Summary ---
Author Name [facility] [place] Address [address] [place] [address] Care Team Providers Care Basketball Assembler Name Role Phone POLLY CLIFFORD Primary Care [...] Cherry's Name Patient's Relationship to Policy Cherry [facility] (WNR) MEDICARE ADVANTAGE [facility] (WNR) Jul 19, 2023 [id number] YULIRayne GARCIA PATIENT CAR[facility] PRESCRIPT ION [id number] 1 Jul 19, 2017 [id number] Rayne JACOBO PATIENT CAR[facility] PRESCRIPT ION [id number] 1 Jul 19, 2017 [id number] [phone] Rayne JACOBO PATIENT MEDICARE (WNR) MEDICARE (M) PART A Sep 16, 2005 PART A [id number] Rayne JACOBO PATIENT MEDICARE (WNR) MEDICARE (M) PART B Sep 16, 2005 PART B [id number] AVELINARENDY SRSUKI PATIENT MEDICARE (WNR) MEDICARE (M) PART A Sep 16, 2005 PART A AVLEINARENDY SRSUKI PATIENT MEDICARE (WNR) MEDICARE (M) PART B Sep 16, 2005 PART B [id number] AVELINARENDY SRSUKI PATIENT MEDICARE (WNR) MEDICARE (M) PART A Sep 16, 2005 PART A [id number] AVELINARENDY SRSUKI PATIENT MEDICARE (WNR) MEDICARE (M) PART B Sep 16, 2005 PART B [id number] [phone] AVELINARSUKI SCHUMACHER SR PATIENT OPTUM RX PRESCRIPT ION RX Jul 19, 2022 THPRX [id number] Rayne JACOBO PATIENT OPTUM RX PRESCRIPT ION RX Jul 19, 2022 THPRX [id number] [phone] Rayne JACOBO PATIENT OPTUM RX PRESCRIPT ION RX Jul 19, 2022 THPRX [id number] Rayne JACOBO PATIENT [facility] Jul 19, 2017 [id number] [phone] AVELINASiddharthaRayne SCHUMACHER PATIENT [facility] Jul 19, 2017 [facility] [id number] Rayne JACOBO PATIENT [facility] KARIN Moya Jul 19, 2017 [id number] YULIRayne GARCIA PATIENT [facility] CE ORGANIZ US FAMIL Y Jul 21, 2013 (WNR) [id number] DONNELLRayne SHELLEY [facility]IENT [facility] ([facility] TRICA RE(WN R) Jul 19, 2017 (WNR) [id number] Rayne JACOBO SHELLEY PATIENT Selected Encounter This section includes the information on record at OR for the Encounter. Date/Time Encounter Type Encounter Description Reason Pro vider Source Jul 20, 2023 03:59 PM Outpatient Encounter TELEPHONE/REHAB AND SUPPORT IHE Encounter Template Text not used by OR Plan of Treatment: Future Appointments (+ 6 months) and Future Tests (+/- 45 days) The Plan of Treatment section includes future care activities for the patient [facility] [place] [facility]. This section includes future appointments and future orders which are active, pending or scheduled. Future Appointments This section includes appointments that were scheduled to occur 6 months from the date of the Encounter, up to a maximum of 20 appointments. The data comes from all [place] treatment facilities. Appointment Date/Time Appointment Type Appointme nt Facility Name Jul 30, 2023 08:30 AM AMBULATORY - MEDICINE [facility] [place] [facility] Oct 11, 2023 02:30 PM [facility] [place] [facility] Nov 16, 2023 11:00 AM AMBULATORY - MEDICINE [facility] [place] [facility] Dec 27, 2023 01:00 PM AMBULATORY - REHAB MEDICIN E [place] [facility] Dec 31, 2023 10:30 AM AMBULATORY - MEDICINE [facility] Social History: Smoking Status (Most current) and Tobacco Use (All prior to encounter date) This section includes the most current, and the historical, smoking and tobacco- related health factors from the [place] facility where the Encounter took place. Current Smoking Status This section includes the most current smoking, or tobacco-related health factor, from the [place] facility where the Encounter took place. Date/Time Current Smoking Status Comment Facil ity Aug 23, 2019 09:07 AM OR-TOBACCO QUIT 15 YRS OR MORE [facility] Tobacco Use History This section includes a history of the smoking, or tobacco-related health factors, that were collected on or before the date of the Encounter. The data comes from the [place] facility where the Encounter took place. Date/Time Smoking Status/Tobacco Use Comment F acility Aug 23, 2019 09:07 AM VA-TOBACCO [facility]IT [facility]RS [facility] Jun 28, 2018 10:50 AM VA-[facility]ACCO [facility] Jun 28, 2018 10:50 AM VA-TOBACCO QUIT 15 YRS OR MORE [facility] Oct 14, 2017 09:20 AM QUIT TOBACCO USE > 7 YE[facility] Oct 05, 2016 01:02 PM QUIT TOBACCO USE > 7 YEARS AGO [facility] Advance Directives: All historical and current Section Date Range: From patient's date of to the date document was created. This section includes ALL of a patient's completed or amended [place] Advance and Rescinded Directives. The entries below indicate that a directive exists for the patient, but an actual copy is not included with this document. The data comes from all [place] facilities. Date Advance Directives Provider Source Nov 16, 2023 ADVANCE DIRECTIVE DOMENICAMARC [facility] Encounter Notes: All associated encounter notes This section contains the clinical notes associated to the Encounter. Date/Time Encounter Note(s) Provider Source Jul 20, 2023 03:59 PM AUDIOLOGY E & M NO TE: [facility] TITLE: AUDIOLOGY CLINIC STANDARD TITLE: AUDIOLOGY E & M NOTE DATE OF NOTE: JUL 20, 2023@15:59 ENTRY DATE: JUL 20, 2023@15:59:37 AUTHOR: VINH PATIÑO EXP COSIGNER: URGENCY: STATUS: COMPLETED Pt. requests someone to get back to him about his L&D policy he called in today to notify audiology about losing his right hearing aid. Pt will await call back as I do not have access to ro yet. I am CC my traffic control supervisor Neisha Sun also to so my due diligence in the care of this . /alba/ VINH PATIÑO Advanced Clinical Radiologist Signed: 07/20/2023 16:04 Receipt Acknowledged By: 07/21/2023 09:06 /alba/ FLORENCE SUN SUPERVISORY RELAY DISPATCHER VINH PATIÑO [facility]
--- OUTSIDE RECORDS SUMMARY | 2024-07-07 09:44 | XMS_ITS | Encounter Summary ---
Author Name [place] Address [address] [place] [address] Care Team Providers Care Choir Accompanist Name Role Phone POLLY CLIFFORD Primary Care [...] Cherry's Name Patient's Relationship to Policy Cherry [facility] (WNR) MEDICARE ADVANTAGE [facility] (WNR) Jul 19, 2023 [id number] Rayne JACOBO PATIENT [facility] PRESCRIPT ION [id number] 1 Jul 19, 2017 [id number] Rayne JACOBO PATIENT [facility] PRESCRIPT ION [id number] 1 Jul 19, 2017 [id number] Rayne JACOBO PATIENT MEDICARE (WNR) MEDICARE (M) PART A Sep 16, 2005 PART A [id number] Rayne JACOBO PATIENT MEDICARE (WNR) MEDICARE () PART B Sep 16, 2005 PART B [id number] [phone] [id number] AVELINARENDY SRSUKI PATIENT MEDICARE (WNR) MEDICARE () PART A Sep 16, 2005 PART A [id number] AVELINARENDY SRSUKI PATIENT MEDICARE (WNR) MEDICARE () PART B Sep 16, 2005 PART B [id number] AVELINARENDY SRSUKI PATIENT MEDICARE (WNR) MEDICARE () PART A Sep 16, 2005 PART A [id number] AVELINARENDY SRSUKI PATIENT MEDICARE (WNR) MEDICARE () PART B Sep 16, 2005 PART B [id number] [phone] AVELINARSUKI SCHUMACHER SR PATIENT OPTUM RX PRESCRIPT ION RX Jul 19, 2022 THPRX [id number] Rayne JACOBO PATIENT OPTUM RX PRESCRIPT ION RX Jul 19, 2022 THPRX [id number] Rayne JACOBO PATIENT OPTUM RX PRESCRIPT ION RX Jul 19, 2022 THPRX [id number] [phone] Rayne JACOBO PATIENT [facility] Jul 19, 2017 [id number] [phone] Rayne JACOBO SHELLEY PATIENT [facility] Jul 19, 2017 [id number] YULIRayne GARCIA PATIENT [facility] KARIN Moya Jul 19, 2017 [id number] YULISTEPHANIEENDYRayne PATIENT [facility] CE ORGANIZ US FAMIL Y Jul 21, 2013 (R) [id number] Rayne JACOBO SHELLEY PATIENT [facility] GRADY MCCARTHY RE(WN R) Jul 19, 2017 (WNR) [id number] Rayne JACOBOMAGGIE PATIENT Selected Encounter This section includes the information on record at [place] for the Encounter. Date/Time Encounter Type Encounter Description Reason Pro vider Source Aug 01, 2023 11:35 AM Outpatient Encounter ADMIN PAT ACTIVTIES (MASNONCT) IHE Encounter Template Text not used by [place] Plan of Treatment: Future Appointments (+ 6 months) and Future Tests (+/- 45 days) The Plan of Treatment section includes future care activities for the patient from all [place] [facility]. This section includes future appointments and future orders which are active, pending or scheduled. Future Appointments This section includes appointments that were scheduled to occur 6 months from the date of the Encounter, up to a maximum of 20 appointments. The data comes from all [place] treatment facilities. Appointment Date/Time Appointment Type Appointme nt Facility Name Oct 11, 2023 02:30 PM AMBULATORY - [facility] Nov 16, 2023 11:00 AM [facility] Dec 27, 2023 01:00 PM [facility]UL[facility] Dec 31, 2023 10:30 AM [facility] Social History: Smoking Status (Most current) and Tobacco Use (All prior to encounter date) This section includes the most current, and the historical, smoking and tobacco- related health factors from the [place] facility where the Encounter took place. Current Smoking Status This section includes the most current smoking, or tobacco-related health factor, from the [place] facility where the Encounter took place. Date/Time Current Smoking Status Comment Facil ity Aug 23, 2019 09:07 AM CO-TOBACCO QUIT 15 YRS OR MORE [facility] Tobacco Use History This section includes a history of the smoking, or tobacco-related health factors, that were collected on or before the date of the Encounter. The data comes from the [place] facility where the Encounter took place. Date/Time Smoking Status/Tobacco Use Comment F acility Aug 23, 2019 09:07 AM CO-TOBACCO QUIT 15 YRS OR MORE [facility] Jun 28, 2018 10:50 AM VA-TOBACCO [facility] Jun 28, 2018 10:50 AM VA-TOBACCO QUIT 15 YRS OR MORE [facility] Oct 14, 2017 09:20 AM QUIT TOBACCO USE > 7 YEARS AGO [facility] Oct 05, 2016 01:02 PM QUIT TOBACCO USE > 7 YEARS AGO [facility] Advance Directives: All historical and current Section Date Range: From patient's date of to the date document was created. This section includes ALL of a patient's completed or amended [place] Advance and Rescinded Directives. The entries below indicate that a directive exists for the patient, but an actual copy is not included with this document. The data comes from all [place] facilities. Date Advance Directives Provider Source Nov 16, 2023 ADVANCE DIRECTIVE MARC METZGER [facility] Encounter Notes: All associated encounter notes This section contains the clinical notes associated to the Encounter. Date/Time Encounter Note(s) Provider Source Aug 01, 2023 11:35 AM ADMINISTRATIVE NOT E: LOCAL TITLE: CCC: SCHEDULING ADMINISTRATION STANDARD TITLE: ADMINISTRATIVE NOTE DATE OF NOTE: AUG 01, 2023@11:35 ENTRY DATE: AUG 01, 2023@11:35:40 AUTHOR: CURTIS BARROS EXP COSIGNER: URGENCY: STATUS: COMPLETED vet called stated he rec a message from audiology- typewriters functional tester unable to get though- wednesday- advised to call back on Wednesday // SPRING FIORELLA Signed: 08/01/2023 11:36 CURTIS BARROS [facility]
--- OUTSIDE RECORDS SUMMARY | 2024-07-07 09:44 | XMS_ITS | Encounter Summary ---
Author Name [place] Address [address] [place] [id number] Care Team Providers Care Meat Soaker Name Role Phone POLLY CLIFFORD Primary Care [...] Cherry's Name Patient's Relationship to Policy Cherry [facility] (WNR) MEDICARE ADVANTAGE [facility] (WNR) Jul 19, 2023 [id number] Rayne JACOBO PATIENT CAREMARK PRESCRIPT ION [id number] 1 Jul 19, 2017 [id number] Rayne JACOBO PATIENT CAREMARK PRESCRIPT ION [id number] 1 Jul 19, 2017 [id number] [phone] Rayne JACOBO PATIENT MEDICARE (WNR) MEDICARE (M) PART A Sep 16, 2005 PART A [id number] Rayne JACOBO PATIENT MEDICARE (WNR) MEDICARE () PART B Sep 16, 2005 PART B [id number] AVELINARENDY SRSUKI PATIENT MEDICARE (WNR) MEDICARE () PART A Sep 16, 2005 PART A AVELINARENDY SRSUKI PATIENT MEDICARE (WNR) MEDICARE () PART B Sep 16, 2005 PART B [id number] [phone] AVELINARENDY SRSUKI PATIENT MEDICARE (WNR) MEDICARE () PART A Sep 16, 2005 PART A [id number] AVELINARENDY SRSUKI PATIENT MEDICARE (WNR) MEDICARE () PART B Sep 16, 2005 PART B [id number] AVELINARSUKI SCHUMACHER SR PATIENT OPTUM RX PRESCRIPT ION RX Jul 19, 2022 THPRX [id number] Rayne JACOBO PATIENT OPTUM RX PRESCRIPT ION RX Jul 19, 2022 THPRX [id number] [phone] Rayne JACOBO PATIENT OPTUM RX PRESCRIPT ION RX Jul 19, 2022 THPRX [id number] [phone] Rayne JACOBO PATIENT [facility] Jul 19, 2017 [id number] DONNELLRayne SHELLEY PATIENT [facility] Jul 19, 2017 [facility] [id number] [phone] YULIRayne GARCIA PATIENT [facility] KARIN Moya Jul 19, 2017 [id number] YULIRayne GARCIA PATIENT [facility] FAM[facility] Y Jul 21, 2013 (R) [id number] DONNELLRayne SHELLEY PATIENT [facility] (R) GR[facility] DIA[facility] RE(WN R) Jul 19, 2017 (WNR) [id number] Rayne JACOBO PATIENT Selected Encounter This section includes the information on record at [place] for the Encounter. Date/Time Encounter Type Encounter Description Reason Provider Source Nov 16, 2023 11:00 AM OFFICE O/P [place] 60 MIN PRIMARY CARE/MEDICINE ICD-10-CM J44.9 Chronic obstructive pulmonary disease, unspecified FURCOLO,POLLY IHE Encounter Template Text not used by [place] Assessments - Encounter Diagnoses This section includes the primary and secondary diagnoses documented for the Encounter. Date/Time Primary/Secondary Diagnosis Diagnosis Name Provider Source Nov 16, 2023 11:56 AM PRIMARY Chronic obstructive pulmonary disease, unspecified FURCOLO,POLLY [facility] [place] [facility] Nov 16, 2023 11:56 AM SECONDARY Benign prostatic hyperplasia without lower urinry tract symp FURCOLO,POLLY [facility] [place] [facility] Nov 16, 2023 11:56 AM SECONDARY Chronic atrial fibrillation, unspecified FURCOLO,POLLY [facility] [place] [facility] Nov 16, 2023 11:56 AM SECONDARY Local-rel symptc epi w simp prt seiz,not ntrct, w/o stat epi FURCOLO,POLLY [facility] [place] [facility] Nov 16, 2023 11:56 AM SECONDARY Mild cognitive impairment of uncertain or unknown etiology FURCOLO,POLLY [facility] [place] [facility] Plan of Treatment: Future Appointments (+ 6 months) and Future Tests (+/- 45 days) The Plan of Treatment section includes future care activities for the patient from all [place] treatmentfacilities. This section includes future appointments and future orders which are active, pending or scheduled. Future Appointments This section includes appointments that were scheduled to occur 6 months from the date of the Encounter, up to a maximum of 20 appointments. The data comes from all [place] treatment facilities. Appointment Date/Time Appointment Type Appointme nt Facility Name Dec 27, 2023 01:00 PM AMBULATORY - REHAB MEDICIN E [facility] [place] [facility] Dec 31, 2023 10:30 AM AMBULATORY - MEDICINE IN [facility] [place] [facility] Feb 10, 2024 08:30 AM AMBULATORY - MEDICINE [facility] Active, Pending, and Scheduled Orders This section includes a listing of several types of active, pending, and scheduled orders, including clinic medications orders, diagnostic test orders, procedure orders and consult orders; where the start date of the order is 45 days before the date of the Encounter or 45 days after the date of theEncounter. The data comes from all [place] treatment facilities. Test Date/Time Test Type Test Details Facility Name Nov 05, 2023 12:00 AM Laboratory - Chemi stry Order BASIC METABOLIC PANEL (non-fasting) BLOOD (SST-SERUM) [facility] Nov 05, 2023 12:00 AM Laboratory - Chemi stry Order CBC BLOOD (LAV-BLOOD) [facility] Nov 05, 2023 12:00 AM Laboratory - Chemi stry Order LIPID PANEL, NON FASTING BLOOD (SST-SERUM) [facility] Nov 05, 2023 12:00 AM Laboratory - Chemi stry Order LIVER FUNCTION BLOOD (SST-SERUM) [facility] Vital Signs: All taken on the encounter date This section contains inpatient and outpatient Vital Signs collected on the date of the Encounter. Date/Time Temperature Pulse Blood Pressure Respiratory Rate SP02 Pain Height Weight Body Mass Index Source Nov 16, 2023 11:00 AM 98.5 68 127/74 16 94 0 69 218 32 [facility] Social History: Smoking Status (Most current) and Tobacco Use (All prior to encounter date) This section includes the most current, and the historical, smoking and tobacco- related health factors from the [place] facility where the Encounter took place. Current Smoking Status This section includes the most current smoking, or tobacco-related health factor, from the [place] facility where the Encounter took place. Date/Time Current Smoking Status Comment Facil ity Oct 29, 2023 06:12 PM IN-TOBACCO FORMER USER [facility] Tobacco Use History This section includes a history of the smoking, or tobacco-related health factors, that were collected on or before the date of the Encounter. The data comes from the [place] facility where the Encounter took place. Date/Time Smoking Status/Tobacco Use Comment F acility Oct 29, 2023 06:12 PM VA-TOBACCO QUIT 15 YRS OR MORE [facility] [place] [facility] Aug 23, 2019 09:07 AM VA-TOBACCO FORMER USER IN [facility] [place] [facility] Aug 23, 2019 09:07 AM VA-TOBACCO QUIT 15 YRS OR MORE IN [facility] [place] [facility] Jun 28, 2018 10:50 AM VA-TOBACCO FORMER USER IN [facility] [place] [facility] Jun 28, 2018 10:50 AM VA-TOBACCO QUIT 15 YRS OR MORE IN [facility] [place] [facility] Oct 14, 2017 09:20 AM QUIT TOBACCO USE > 7 YEARS AGO IN [facility] [place] [facility] Oct 05, 2016 01:02 PM QUIT TOBACCO USE > 7 YEARS AGO [facility] Advance Directives: All historical and current Section Date Range: From patient's date of to the date document was created. This section includes ALL of a patient's completed or amended [place] Advance and Rescinded Directives. The entries below indicate that a directive exists for the patient, but an actual copy is not included with this document. The data comes from all [place] facilities. Date Advance Directives Provider Source Nov 16, 2023 ADVANCE DIRECTIVE MARC METZGER [facility] Encounter Notes: All associated encounter notes This section contains the clinical notes associated to the Encounter. Date/Time Encounter Note(s) Provider Source Nov 16, 2023 12:12 PM PREVENTIVE MEDICINE NURSING NOTE: LOCAL TITLE: CLINICAL REMINDERS/NURSING STANDARD TITLE: PREVENTIVE MEDICINE NURSING NOTE DATE OF NOTE: NOV 16, 2023@12:12 ENTRY DATE: NOV 16, 2023@12:12:07 AUTHOR: MARC METZGER EXP COSIGNER: URGENCY: STATUS: COMPLETED Influenza Immunization: The patient has received the seasonal influenza vaccine for the current season at another location. Documented: INFLUENZA, UNSPECIFIED FORMULATION Historical Date Administered: Mar 27, 2023 Series: Complete Outside Location: Outside Healthcare Provider Information Source: FROM OTHER REGISTRY /alba/ MARC METZGER LPN License Practical Nurse Signed: 11/16/2023 12:[address] [facility] Nov 16, 2023 12:11 PM ADVANCE DIRECTIVE: LOCAL TITLE: ADVANCE DIRECTIVE STANDARD TITLE: ADVANCE DIRECTIVE DATE OF NOTE: NOV 16, 2023@12:11 ENTRY DATE: NOV 16, 2023@12:11:45 AUTHOR: MARC METZGER EXP COSIGNER: URGENCY: STATUS: COMPLETED * [ ]Advance Directive executed with . [X]Patient brought in his/her own Advance Directive. Scanned Advance Directive or Advance Directive/AOD Flowsheet is located in HashTip. /alba/ MARC METZGER LPN License Practical Nurse Signed: 11/16/2023 12:11 MARC METZGER [place] [facility] [place] [facility] Nov 16, 2023 11:09 AM PHYSICIAN NOTE: LOCAL TITLE: MD NOTE STANDARD TITLE: PHYSICIAN NOTE DATE OF NOTE: NOV 16, 2023@11:09 ENTRY DATE: NOV 16, 2023@11:09:08 AUTHOR: POLLY CLIFFORD EXP COSIGNER: URGENCY: STATUS: COMPLETED LEONARDO JACOBO is a 83 year old WHITE MALE who is being seen today in primary care to re-establish care. last seen 2019 by [facility]. CARE TEAM Community Primary Care Provider: Dr. Curry Nicholson [facility] Specialists: Community Specialists: [facility] Dr. Eduardo Son dental- DR. 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 was in ER recently for dizziness, visison change and some chest pain- when on toilet. pending eval by cardiology- might be thinking about carotid disease RELEVANT PAST MEDICAL HISTORY Active problems - Computerized Problem List is the source for the followin. Chronic obstructive pulmonary disease sees [employer] client insights consultant 2. Benign Prostatic Hypertrophy without Outflow Obstruction (SCT [id number]) 3. Lumbosacral radiculopathy 4. Multiple renal cysts 5. Benign essential hypertension 6. Toxic polyneuropathy 7. Sleep apnea mild 01/02 8. Hepatitis C referred to Hep C clinic 10/05/16 Pt achieved SVR after 12 weeks of Harvoni in 2018 9. H/O: osteoarthritis L knee chronic limitation in ROM h/o R hip replacement h/o L rotator cuff repair h/o r ankle surgery related to trauma/fall 10. Atrial fibrillation [facility] 11. Seizure disorder nonconvulsive seizures dx [employer]. lamotrigine. Neurology Dr. Jon 12. Cerebral atrophy no h/o head injury 13. 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 Alcohol Use: occasional, never problematics Tobacco Use: quit 1990, smoked for 31 x 1 ppd Pack Year: Drug Use: none Mobility: no longer drives- more confused, he organizes, Exercise: walks with walker, can go a few blocks ALLERGIES VICODIN, CODEINE, PIROXICAM, HYDROCODONE MEDICATIONS Active and Recently Outpatient Medications (excluding Supplies): Active Outpatient Medications Status ========= 1) CARBOXYMETHYLCELLULOSE NA 0.5% OPH SOLN INSTILL 1 ACTIVE DROP INTO EACH EYE FOUR TIMES A DAY 2) KETOTIFEN 0.025% OPH SOLN INSTILL 1 DROP INTO EACH ACTIVE EYE EVERY 12 HOURS FOR ALLERGIC CONJUNCTIVITIS (IF YOU WEAR CONTACT LENSES, WAIT 10 MINUTES BEFORE INSERTING LENSES) 3) LUBRICATING (PF) OPH OINT APPLY THIN RIBBON INTO EACH ACTIVE EYE AT BEDTIME FOR DRY EYE Active Non-VA Medications Status ========= 1) Non-VA ACETAMINOPHEN 500MG TAB 500MG BY MOUTH TWICE ACTIVE DAILY 2) Non-VA ALBUTEROL 90MCG (CFC-F) 200D ORAL INHL 2 PUFFS ACTIVE BY MOUTH EVERY 4 HOURS NEEDED 3) Non-VA CITALOPRAM HYDROBROMIDE 40MG TAB 40MG BY MOUTH ACTIVE ONCE DAILY 4) Non-VA DILTIAZEM HCL 90MG 12HR SA CAP 180MG BY MOUTH ACTIVE DAILY 5) Non-VA FUROSEMIDE 20MG TAB 20MG BY MOUTH ONCE DAILY ACTIVE NEEDED 6) Non-VA LEVETIRACETAM 500MG TAB 1000MG BY MOUTH TWICE ACTIVE DAILY 7) Non-VA MULTIVITAMIN CAP/TAB 1 TABLET BY MOUTH DAILY ACTIVE 8) Non-VA RIVAROXABAN 20MG TAB 20MG BY MOUTH DAILY ACTIVE 9) Non-VA TAMSULOSIN HCL 0.4MG CAP 0.4MG BY MOUTH ONCE ACTIVE DAILY 10) Non-VA [id number]/[id number] 30D INH 1 ACTIVE INHALATION BY MOUTH ONCE DAILY 13 Total Medications REVIEW OF SYMPTOMS POSITIVE FOR: dizziness NEGATIVE FOR: CONSTITUTION: no weight loss/gain, fatigue, fevers, night sweats HEENT: no vision problems, hearing loss,swallowing difficulties, sinus pain CV: no chest pain, palpitations, dyspnea on exertion, orthopnea RESP: no cough, shortness of breath, wheezing GI: no abdominal pain, N/V/D, constipation, blood in stool, normal appetite : no urinary frequency, nocturia, hematuria MUSC: no joint pain, joint swelling, muscle aches NEURO: no headaches, dizziness, memory loss, tremor, weakness PSYCH: no depression, anxiety, suicidal or homicidal thoughts SKIN: no rash, new skin lesions PHYSICAL EXAM Vitals: - - - - - - - B/P: 127/74 (11/16/2023 11:00) pulse: 68 (11/16/2023 11:00) resp: 16 (11/16/2023 11:00) temp: 98.5 F [36.9 C] (11/16/2023 11:00) Ht: 69 in [175.3 cm] (11/16/2023 11:00) Wgt: 218 lb [98.88 kg] (11/16/2023 11:00) BMI: BMI: 32.3 Exam: - - - - - - - General: A&O x 3, no acute distress, normal affect and mood Neck: normal thyroid, normal carotids- no bruits CV: RRR S1S2, no murmur Resp: LCTA bilat, no wheezing, rales or rhonchi Neuro: grossly intact, no visible tremor, normal memory and speech Extremities: normal movement of extremities, normal gait, normal strength no LE edema RECENT LABS CHEM 7 TREND LAB CUMULATIVE SELECTED Collection DT Spec GLUCOSE BUN CREATIN Sodium K+/Pot CL CO2 04/24/2019 08:47 SERUM 19 0.83 09/13/2018 09:12 SERUM 117 H 23 0.77 141 4.0 105 29 10/14/2017 10:24 SERUM 121 H 20 0.76 139 4.2 103 28 08/17/2017 14:14 SERUM 90 19 0.85 140 4.2 103 30 08/03/2017 14:43 SERUM 95 22 0.93 141 4.3 103 31 H LIVER PANEL TREND Collection DT Spec AST ALT T BILI ALK YVONNE T. PROT ALBUMIN 09/13/2018 09:12 SERUM 17 10 0.6 40 6.7 3.8 03/11/2018 09:51 SERUM 17 12 0.8 51 7.1 4.3 10/14/2017 10:24 SERUM 20 16 0.6 50 6.8 3.7 08/17/2017 14:14 SERUM 21 17 0.4 48 6.8 3.7 08/03/2017 14:43 SERUM 22 21 0.4 48 6.9 3.7 LIPID PANEL TREND Collection DT Spec CHOL HDL CHO/HDL LDL-c TRIG 09/13/2018 09:12 SERUM 166 47 3.5 99 101 04/14/2017 10:05 SERUM 168 49 3.4 101 91 10/05/2016 13:56 SERUM 162 53 3.1 87 111 CBC TREND Collection DT Spec WBC RBC HGB HCT MCV MCH PLT 09/13/2018 09:12 BLOOD 4.97 4.34 14.1 41.2 94.9 32.5 206 10/14/2017 10:24 BLOOD 5.98 4.41 14.5 41.9 95.0 32.9 H 237 08/17/2017 14:14 BLOOD 7.84 4.41 14.3 41.7 94.6 32.4 230 08/03/2017 14:43 BLOOD 6.45 4.51 14.5 42.2 93.6 32.2 236 04/14/2017 10:05 BLOOD 5.09 4.30 14.0 40.8 94.9 32.6 232 PSA TREND No data available HEMOGLOBIN A1C TREND Collection DT Spec HGBA1c 09/13/2018 09:12 BLOOD 5.3 03/11/2018 09:51 BLOOD 5.4 04/14/2017 10:05 BLOOD 5.2 10/05/2016 13:56 BLOOD 5.2 ASSESSMENT AND PLAN Active problems - Computerized Problem List is the source for the followin. Benign Prostatic Hypertrophy without Outflow Obstruction ([facility] [id number]) 2. Lumbosacral radiculopathy 3. Multiple renal cysts 4. Benign essential hypertension 5. Toxic polyneuropathy 6. Sleep apnea mild 01/02 7. Hepatitis C referred to Hep C clinic 10/05/16 Pt achieved SVR after 12 weeks of Harvoni in 2018 8. H/O: osteoarthritis L knee chronic limitation in ROM h/o R hip replacement h/o L rotator cuff repair h/o r ankle surgery related to trauma/fall 9. Atrial fibrillation [facility]arel[facility]. [facility] h/o [facility] 10. Seizure disorder nonconvulsive seizures dx [employer]. on [facility] Neurology Dr. Son 11. Cerebral atrophy no h/o head injury 12. Cognitive disorder - after dies in 2001, sold home to son, lives in small home all on one floor. no longer drives. daughetr helps and checks in daily FOLLOW UP f/u in 1 year VISIT TYPE: a HIGH complexity visit where over 60 minutes was spent in direct patient care, review of records and documentation. Upcoming Appointments: 04/06/2024 09:00 CWM/NO/OPTOMETRY/MERHAR /es/ POLLY CLIFFORD D.O. PHYSICIAN Signed: 11/16/2023 11:56 POLLY CLIFFORD IN [facility]
--- OUTSIDE RECORDS SUMMARY | 2024-07-07 09:44 | XMS_ITS | Encounter Summary ---
Author Name [place] Address [address] [place] [address] Care Team Providers Care Support Engineer Name Role Phone POLLY CLIFFORD Primary Care [...] Cherry's Name Patient's Relationship to Policy Cherry [facility] (WNR) MEDICARE ADVANTAGE [facility] ([facility] Jul 19, 2023 [id number] Rayne JACOBO PATIENT CAREMARK PRESCRIPT ION [id number] 1 Jul 19, 2017 [id number] Rayne JACOBO PATIENT CAREMARK PRESCRIPT ION [id number] 1 Jul 19, 2017 [id number] [phone] YULIRayne GARCIA PATIENT MEDICARE (WNR) MEDICARE (M) PART A Sep 16, 2005 PART A [id number] Rayne JACOBO PATIENT MEDICARE (WNR) MEDICARE () PART B Sep 16, 2005 PART B [id number] AVELINARENDY SRSUKI PATIENT MEDICARE (WNR) MEDICARE () PART A Sep 16, 2005 PART A [id number] YULIEHRLE SRSUKI PATIENT MEDICARE (WNR) MEDICARE (M) PART B Sep 16, 2005 PART B [id number] YULIEHRENDY SRSUKI PATIENT MEDICARE (WNR) MEDICARE (M) PART A Sep 16, 2005 PART A [id number] YULIEHRENDY SRSUKI PATIENT MEDICARE (WNR) MEDICARE () PART B Sep 16, 2005 PART B [id number] AVELINARENDY SRSUKI PATIENT OPTUM RX PRESCRIPT ION RX Jul 19, 2022 THPRX [id number] Rayne JACOBO PATIENT OPTUM RX PRESCRIPT ION RX Jul 19, 2022 THPRX [id number] Rayne JACOBO PATIENT OPTUM RX PRESCRIPT ION RX Jul 19, 2022 THPRX [id number] Rayne JACOBO PATIENT [facility] Jul 19, 2017 [id number] AVELINASiddharthaRayne SCHUMACHER PATIENT [facility] Jul 19, 2017 [facility] [id number] Rayne JACOBO PATIENT [facility] E Jul 19, 2017 [id number] [phone] Rayne JACOBO PATIENT [facility]GAN[facility] US FAMIL Y Jul 21, 2013 (WNR) [id number] DONNELLRayne SHELLEY PATIENT [facility] (WNR) [facility] RE(WN R) Jul 19, 2017 (WNR) [id number] DONNELLRayne PATIENT Selected Encounter This section includes the information on record at [place] for the Encounter. Date/Time Encounter Type Encounter Description Reason Pro vider Source Aug 19, 2023 02:19 PM Outpatient Encounter OPTOMETRY IHE Encounter Template Text not used by [place] Plan of Treatment: Future Appointments (+ 6 months) and Future Tests (+/- 45 days) The Plan of Treatment section includes future care activities for the patient from all [place] [facility] This section includes future appointments and future orders which are active, pending or scheduled. Future Appointments This section includes appointments that were scheduled to occur 6 months from the date of the Encounter, up to a maximum of 20 appointments. The data comes from all [place] treatment facilities. Appointment Date/Time Appointment Type Appointme nt Facility Name Oct 11, 2023 02:30 PM [facility] [place] [facility] Nov 16, 2023 11:00 AM AMBULATORY - MEDICINE [facility] [place] [place] [facility] Dec 27, 2023 01:00 PM AMBULATORY - REHAB MEDICIN [place] [facility] [place] [facility] Dec 31, 2023 10:30 AM [facility]UL[facility] Feb 10, 2024 08:30 AM [facility] Social History: Smoking Status (Most current) and Tobacco Use (All prior to encounter date) This section includes the most current, and the historical, smoking and tobacco- related health factors from the [place] facility where the Encounter took place. Current Smoking Status This section includes the most current smoking, or tobacco-related health factor, from the [place] facility where the Encounter took place. Date/Time Current Smoking Status Comment Facil ity Aug 23, 2019 09:07 AM [place]-TOBACCO QUIT 15 YRS OR MORE [facility] Tobacco Use History This section includes a history of the smoking, or tobacco-related health factors, that were collected on or before the date of the Encounter. The data comes from the [place] facility where the Encounter took place. Date/Time Smoking Status/Tobacco Use Comment F acility Aug 23, 2019 09:07 AM [place]-TOBACCO QUIT [facility]RS OR MORE [facility] Jun 28, 2018 10:50 AM [place]-TOBACCO FORMER USER [facility] Jun 28, 2018 10:50 AM VA-TOBACCO QUIT 15 YRS OR MORE [facility] Oct 14, 2017 09:20 AM QUIT TOBACCO USE > 7 YEARS AGO [facility] Oct 05, 2016 01:02 PM QUIT TOBACCO USE > 7 YEARS AGO [facility] Advance Directives: All historical and current Section Date Range: From patient's date of to the date document was created. This section includes ALL of a patient's completed or amended [place] Advance and Rescinded Directives. The entries below indicate that a directive exists for the patient, but an actual copy is not included with this document. The data comes from all [place] facilities. Date Advance Directives Provider Source Nov 16, 2023 ADVANCE DIRECTIVE DOMENICAMARC [facility] Encounter Notes: All associated encounter notes This section contains the clinical notes associated to the Encounter. Date/Time Encounter Note(s) Provider Source Aug 19, 2023 02:19 PM TELEPHONE ENCOUNTE R NOTE: LOCAL TITLE: TELEPHONE NOTE/SPECIALTY CLINIC STANDARD TITLE: TELEPHONE ENCOUNTER NOTE DATE OF NOTE: AUG 19, 2023@14:19 ENTRY DATE: AUG 19, 2023@14:19:34 AUTHOR: NORBERTO FARRELL EXP COSIGNER: URGENCY: STATUS: COMPLETED CLINIC CANCELLATION: Called and left message on voicemail. Patients appointment with CWM/NO/OPTOMETRY/MERHAR on 08/19/2023 Needs to be rescheduled with a PID of 03/09/2024) Letter mailed [phone] EXT: [id number] /es/ NORBERTO FARRELL Advanced Fur Farmer Signed: 08/19/2023 14:20 NORBERTO FARRELL [facility]
--- OUTSIDE RECORDS SUMMARY | 2024-07-07 09:44 | XMS_ITS | Encounter Summary ---
Author Name [facility] [place] Organization [facility] [place] Address [address] [place] [address] Care Team Providers Care Roaster Supervisor Name Role Phone POLLY CLIFFORD Primary Care [...] Cherry's Name Patient's Relationship to Policy Cherry [facility] (WNR) MEDICARE ADVANTAGE [facility] (WNR) Jul 19, 2023 [id number] Rayne JACOBO PATIENT CAREMARK PRESCRIPT ION [id number] 1 Jul 19, 2017 [id number] Rayne JACOBO PATIENT CAREMARK PRESCRIPT ION [id number] 1 Jul 19, 2017 [id number] Rayne JACOBO PATIENT MEDICARE (WNR) MEDICARE (M) PART A Sep 16, 2005 PART A [id number] Rayne JACOBO PATIENT MEDICARE (WNR) MEDICARE (M) PART B Sep 16, 2005 PART B [id number] [id number] AVELINARENDY SRSUKI PATIENT MEDICARE (WNR) MEDICARE (M) PART A Sep 16, 2005 PART A [id number] AVELINARENDY SRSUKI PATIENT MEDICARE (WNR) MEDICARE (M) PART B Sep 16, 2005 PART B [id number] [phone] AVELINARENDY SRSUKI PATIENT MEDICARE (WNR) MEDICARE (M) PART A Sep 16, 2005 PART A [id number] AVELINARENDY SRSUKI PATIENT MEDICARE (WNR) MEDICARE (M) PART B Sep 16, 2005 PART B [id number] AVELINARSUKI SCHUMACHER SR PATIENT OPTUM RX PRESCRIPT ION RX Jul 19, 2022 THPRX [id number] [phone] Rayne JACOBO PATIENT OPTUM RX PRESCRIPT ION RX Jul 19, 2022 THPRX [id number] Rayne JACOBO PATIENT OPTUM RX PRESCRIPT ION RX Jul 19, 2022 THPRX [id number] Rayne JACOBO PATIENT [facility] Jul 19, 2017 [id number] AVELINASiddharthaRayne SCHUMACHER PATIENT [facility] Jul 19, 2017 [facility] [id number] [phone] Rayne JACOBO PATIENT [facility] KARIN Moya Jul 19, 2017 [id number] YULIRayne GARCIA PATIENT [facility] CE ORGANIZ US FAMIL Y Jul 21, 2013 (WNR) [id number] DONNELLRayne SHELLEY PATIENT [facility] (R) TRICA RE(WN R) Jul 19, 2017 (WNR) [id number] Rayne JACOBO SHELLEY PATIENT Selected Encounter This section includes the information on record at ID for the Encounter. 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 Date/Time Primary/Secondary Diagnosis Diagnosis Name Provider Source Aug 03, 2023 08:52 AM PRIMARY Giant cell arteritis with polymyalgia rheumatica GEORGIE DECKER [facility] [place] [facility] Aug 03, 2023 08:52 AM SECONDARY Esophoria GEORGIE DECKER [facility] [place] [facility] Aug 03, 2023 08:52 AM SECONDARY Hypermetropia, bilateral OSHINSKIGEORGIE Moya [facility] [place] [facility] Aug 03, 2023 08:52 AM SECONDARY Presbyopia OSHIGEORGIE MOLINA ID [facility] [place] [facility] Aug 03, 2023 08:52 AM SECONDARY Presence of intraocular lens OSHIGUSKIGEORGIE Moya [facility] [place] [facility] Aug 03, 2023 08:52 AM SECONDARY Regular astigmatism, bilateral OSHINSKIGEORGIE Moya ID [facility] [place] [facility] Plan of Treatment: Future Appointments (+ 6 months) and Future Tests (+/- 45 days) The Plan of Treatment section includes future care activities for the patient from all ID treatmentfacilities. This section includes future appointments and future orders which are active, pending or scheduled. Future Appointments This section includes appointments that were scheduled to occur 6 months from the date of the Encounter, up to a maximum of 20 appointments. The data comes from all ID treatment facilities. Appointment Date/Time Appointment Type Appointme nt Facility Name Oct 11, 2023 02:30 PM AMBULATORY - REHAB MEDICIN E [facility] [place] [facility] Nov 16, 2023 11:00 AM AMBUL[facility] Dec 27, 2023 01:00 PM [facility] Dec 31, 2023 10:30 AM AMBULATORY - MEDICINE [facility] Social History: Smoking Status (Most current) and Tobacco Use (All prior to encounter date) This section includes the most current, and the historical, smoking and tobacco- related health factors from the ID facility where the Encounter took place. Current Smoking Status This section includes the most current smoking, or tobacco-related health factor, from the ID facility where the Encounter took place. Date/Time Current Smoking Status Comment Facil ity Aug 23, 2019 09:07 AM ID-TOBACCO QUIT 15 YRS OR MORE [facility] Tobacco Use History This section includes a history of the smoking, or tobacco-related health factors, that were collected on or before the date of the Encounter. The data comes from the ID facility where the Encounter took place. Date/Time Smoking Status/Tobacco Use Comment F acility Aug 23, 2019 09:07 AM ID-TOBACCO [facility]IT [facility]RS [facility] Jun 28, 2018 10:50 AM ID-TOBACCO FORMER USER [facility] Jun 28, 2018 10:50 AM ID-TOBACCO QUIT [facility] YRS OR [facility] Oct 14, 2017 09:20 AM QUIT TOBACCO USE > 7 YEARS AGO [facility] Oct 05, 2016 01:02 PM QUIT TOBACCO USE > 7 YEARS AGO [facility] Advance Directives: All historical and current Section Date Range: From patient's date of to the date document was created. This section includes ALL of a patient's completed or amended ID Advance and Rescinded Directives. The entries below indicate that a directive exists for the patient, but an actual copy is not included with this document. The data comes from all ID facilities. Date Advance Directives Provider Source Nov 16, 2023 ADVANCE DIRECTIVE MARC METZGER [facility] Encounter Notes: All associated encounter notes This section contains the clinical notes associated to the Encounter. Date/Time Encounter Note(s) Provider Source Jul 30, 2023 08:14 AM OPTOMETRY NOTE: LOCAL TITLE: OPTOMETRY NOTE STANDARD TITLE: OPTOMETRY NOTE DATE OF NOTE: JUL 30, 2023@08:14 ENTRY DATE: JUL 30, 2023@08:14:32 AUTHOR: BEENA GREEN COSIGNER: VIVI DECKER URGENCY: STATUS: COMPLETED OPTOMETRY NOTE Has ADDENDA Active problems - Computerized Problem List is the source for the followin. Benign Prostatic Hypertrophy without Outflow Obstruction ([facility] [id number]) 2. Lumbosacral radiculopathy 3. Multiple renal cysts 4. Benign essential hypertension 5. Toxic polyneuropathy 6. Sleep apnea 7. Hepatitis C 8. H/O: osteoarthritis 9. Atrial fibrillation 10. Seizure disorder 11. Cerebral atrophy 12. Cognitive disorder Active Outpatient Medications (including Supplies): Active Outpatient Medications Status 1) CARBOXYMETHYLCELLULOSE NA 0.5% OPH SOLN INSTILL [...] FOR DRY EYE Active Non-VA Medications Status 1) Non-VA ACETAMINOPHEN 500MG TAB 500MG BY MOUTH TWICE ACTIVE DAILY 2) Non-VA ALBUTEROL 90MCG (CFC-F) 200D ORAL INHL 2 PUFFS ACTIVE BY MOUTH EVERY 4 HOURS NEEDED 3) Non-VA DILTIAZEM HCL 90MG 12HR SA CAP 180MG BY MOUTH ACTIVE DAILY 4) Non-VA MULTIVITAMIN CAP/TAB 1 TABLET BY MOUTH DAILY ACTIVE 5) Non-VA RIVAROXABAN 20MG TAB 20MG BY MOUTH DAILY ACTIVE 8 Total Medications Allergies: VICODIN, CODEINE, PIROXICAM All medications including those prescribed by outside VA's, community providers, and all OTC meds were reviewed and reconciled with patient to the best of their abilities. This 82 year old MALE is seen today for recurring eye strain and LLANOS. Chief Complaint: Patient been feeling LLANOS in left eyebrow huyen for a minute, started a few months ago. He likes to read for 2-3 hours at a time. Got double vision for 1 minute one week ago while wearing glasses, had about 5 times between last visit and today. We have adjusted his prism glasses several times to try to eliminate the diplopia. He also states he has jaw pain on left side when chewing for the past several weeks. Also c/o intermittent blur but denies lee amaurosis. Last Eye Exam: February 2023 OHx: 1. Combined catracts OU (+) Pain: intermitent for 1 minute (-) LLANOS: (+) Diplopia: 5 episodes (-) Flashes: (-) Floaters: (-) Amaurosis Fugax/Tia's: (-) Eye Injury: (+) Eye Surgery: CE with PCIOL OU (-) TBI FOHx: (-) Glaucoma/ARMD/Blindness Social Hx: (-) Smoker/Length of Time/PPD: Pupils: PERRL (-)APD EOMs: SAFE OU, (-)Pain/Diplopia CVF (facial, peripheral): FTFC OU no scalp tenderness on left religion on palpation today Current Rx with last BCVA: OD: +2.25 -2.25 x105 2P BRANDI 20/20 OS: +1.25 -3.00 x087 1P BD 20/20 Add: +2.50 DVA ( )sc ( x )cc OD: 20/20 OS: 20/20 Subjective Refraction: BCVA: OD: +2.25 -2.25 x105 2P BRANDI 20/20 OS: +1.25 -3.00 x087 1P BD 20/20 Add: +2.50 All the above performed by student, reviewed by attending Anterior segment: Performed by student, repeated by attending Lids: Dermatochalasis OU Conj: Hyaline plaques OU Sclera: white OU Cornea: scattered pigment on endothelium OU temporal scar from cataracts surgery OU AC: 4x4 OU deep & quiet OU Iris: flat and clear OU (-)NVI OU (-)TID OU Lens: PCIOL with PCO and centered OD>OS (-)PXF OU Tonometry: Goldmann Aplanation Performed by student, reviewed by attending OD 17 mmHg OS 18 mmHg Time: 8:40 am Assesment and Plan: 1. Needs medical assessment for giant cell arteritis given jaw claudication and left temporal LLANOS. I wrote a note on letterhead and advised pt and daughter to call his private PCP immediately for assessment. He does not currently have a PCP in the [facility]. Also told if he ever experiences amaurosis to go immediately to ER. 2. Pseudophakia OU Patient was educated and understanding on findings. PCIOL was centered and clear, with no sign of visual disturbances. Continue monitoring during next CEE. He was seen to be considered for a YAG but the copy center specialist did not think it was necessary. 3. Hypermetropia, astigmatism and presbyopia OU Patient was educated on diagnosis. New Rx was order. Monitor yearly. 4. 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 Advised pt to take breaks every 20-30 minutes. We can consider new glasses if he still has diplopia after that. Return to Clinic in 6 months or earlier PRN /alba/ Vivi Decker OD Fee Basis Sales Exec Signed: 07/30/2023 10:03 for KRISTI BARNETT OPTOMETRY STUDENT /alba/ Vivi Decker OD Fee Basis Sales Exec Cosigned: 07/30/2023 10:03 07/30/2023 ADDENDUM STATUS: COMPLETED I interviewed the pt and conducted an external exam including palpation of the left temporal area. I advised the pt to seek immediate medical care for suspicion of giant cell artertis. Pt and daughter agree to plan. /alba/ Vivi Decker OD Fee Basis Sales Exec Signed: 07/30/2023 10:05 VIVI DECKER [facility]
--- OUTSIDE RECORDS SUMMARY | 2024-07-07 09:44 | XMS_ITS | Encounter Summary ---
Author Name [facility] [place] Organization [facility] [place] [facility] [place] Address [address] [place] [address] Care Team Providers Care Gear Grinder Name Role Phone POLLY CLIFFORD Primary Care [...] Cherry's Name Patient's Relationship to Policy Cherry [facility] (WNR) MEDICARE ADVANTAGE [facility] ([facility]) Jul 19, 2023 [id number] Rayne JACOBO PATIENT CAREMARK PRESCRIPT ION [id number] 1 Jul 19, 2017 [id number] [phone] Rayne JACOBO PATIENT CAREMARK PRESCRIPT ION [id number] 1 Jul 19, 2017 [id number] YULIRayne GARCIA PATIENT MEDICARE (WNR) MEDICARE (M) PART A Sep 16, 2005 PART A [id number] Rayne JACOBO PATIENT MEDICARE (WNR) MEDICARE () PART B Sep 16, 2005 PART B [id number] [phone] [id number] AVELINARENDY SRSUKI PATIENT MEDICARE (WNR) MEDICARE () PART A Sep 16, 2005 PART A YULIEHRLE SRSUKI PATIENT MEDICARE (WNR) MEDICARE (M) PART B Sep 16, 2005 PART B [id number] YULIEHRENDY SRSUKI PATIENT MEDICARE (WNR) MEDICARE (M) PART A Sep 16, 2005 PART A [id number] YULIEHRENDY SRSUKI PATIENT MEDICARE (WNR) MEDICARE () PART B Sep 16, 2005 PART B [id number] AVELINARENDY SRSUKI PATIENT OPTUM RX PRESCRIPT ION RX Jul 19, 2022 THPRX [id number] Rayne JACOBO PATIENT OPTUM RX PRESCRIPT ION RX Jul 19, 2022 THPRX [id number] [phone] Rayne JACOBO PATIENT OPTUM RX PRESCRIPT ION RX Jul 19, 2022 THPRX [id number] Rayne JACOBO PATIENT [facility] Jul 19, 2017 [id number] AVELINASiddharthaRayne SCHUMACHER PATIENT [facility] Jul 19, 2017 [facility] [id number] Rayne JACOBO PATIENT [facility] TON REYNA E Jul 19, 2017 [id number] Rayne JACOBO PATIENT [facility] CE ORGANIZ US FAMIL Y Jul 21, 2013 (WNR) [id number] DONNELLRayne SHELLEY PATIENT [facility] (WNR) TRICA RE(WN R) Jul 19, 2017 (WNR) [id number] DONNELLRayne PATIENT Selected Encounter This section includes the information on record at DC for the Encounter. Date/Time Encounter Type Encounter Description Reason Pro vider Source Jul 30, 2023 12:26 PM Outpatient Encounter OPTOMETRY IHE Encounter Template Text not used by DC Plan of Treatment: Future Appointments (+ 6 months) and Future Tests (+/- 45 days) The Plan of Treatment section includes future care activities for the patient from all DC treatmentfacilities. This section includes future appointments and future orders which are active, pending or scheduled. Future Appointments This section includes appointments that were scheduled to occur 6 months from the date of the Encounter, up to a maximum of 20 appointments. The data comes from all DC treatment facilities. Appointment Date/Time Appointment Type Appointme nt Facility Name Oct 11, 2023 02:30 PM [facility] Nov 16, 2023 11:00 AM [facility] Dec 27, 2023 01:00 PM [facility]BUL[facility] Dec 31, 2023 10:30 AM AMBULATORY - MEDICINE [facility] Social History: Smoking Status (Most current) and Tobacco Use (All prior to encounter date) This section includes the most current, and the historical, smoking and tobacco- related health factors from the DC facility where the Encounter took place. Current Smoking Status This section includes the most current smoking, or tobacco-related health factor, from the DC facility where the Encounter took place. Date/Time Current Smoking Status Comment Facil ity Aug 23, 2019 09:07 AM DC-TOBACCO QUIT 15 YRS OR MORE [facility] Tobacco Use History This section includes a history of the smoking, or tobacco-related health factors, that were collected on or before the date of the Encounter. The data comes from the DC facility where the Encounter took place. Date/Time Smoking Status/Tobacco Use Comment F acility Aug 23, 2019 09:07 AM DC-TOBACCO QUIT 15 YRS OR MORE [facility] Jun 28, 2018 10:50 AM VA-TOBACCO FORMER USER [facility] [place] [facility] Jun 28, 2018 10:50 AM VA-TOBACCO QUIT 15 YRS OR MORE DC [facility] [place] [facility] Oct 14, 2017 09:20 AM QUIT TOBACCO USE > 7 YEARS AGO DC [facility] [facility] Oct 05, 2016 01:02 PM QUIT TOBACCO USE > 7 YEARS AGO [facility] Advance Directives: All historical and current Section Date Range: From patient's date of to the date document was created. This section includes ALL of a patient's completed or amended DC Advance and Rescinded Directives. The entries below indicate that a directive exists for the patient, but an actual copy is not included with this document. The data comes from all [place] facilities. Date Advance Directives Provider Source Nov 16, 2023 ADVANCE DIRECTIVE MARC METZGER [facility] Encounter Notes: All associated encounter notes This section contains the clinical notes associated to the Encounter. Date/Time Encounter Note(s) Provider Source Jul 30, 2023 12:26 PM TELEPHONE ENCOUNTE R NOTE: LOCAL TITLE: TELEPHONE NOTE/SPECIALTY CLINIC STANDARD TITLE: TELEPHONE ENCOUNTER NOTE DATE OF NOTE: JUL 30, 2023@12:26 ENTRY DATE: JUL 30, 2023@12:26:40 AUTHOR: MARILYN NUNN EXP COSIGNER: URGENCY: STATUS: COMPLETED TELEPHONE NOTE/SPECIALTY CLINIC Has ADDENDA [facility] in [place] is requesting Veterans office visit from today, 07/30/2023 be faxed to their office @ /alba/ MARILYN NUNN MOLD MAKER APPRENTICE Signed: 07/30/2023 12:28 Receipt Acknowledged By: 07/30/2023 13:45 /es/ Kilo Decker OD Fee Basis Center Sales And Service Associate 07/30/2023 ADDENDUM STATUS: COMPLETED Office note faxed to [facility] in [place]. /alba/ KATARINA CLARK LEAD MOLD MAKER APPRENTICE Signed: 07/30/2023 14:33 MARILYN NUNN [facility]
--- OUTSIDE RECORDS SUMMARY | 2024-07-07 09:44 | XMS_ITS | Encounter Summary ---
Author Name [facility] [place] Address [address] [place] [address] Care Team Providers Care Validation Engineer Name Role Phone POLLY CLIFFORD Primary [...] Cherry's Name Patient's Relationship to Policy Cherry [facility] (WNR) MEDICARE ADVANTAGE [facility] Jul 19, 2023 [id number] Rayne JACOBO PATIENT CAREMARK PRESCRIPT ION [id number] 1 Jul 19, 2017 [id number] [phone] Rayne JACOBO PATIENT CAREMARK PRESCRIPT ION [id number] 1 Jul 19, 2017 [id number] [phone] YULIRayne GARCIA PATIENT MEDICARE (WNR) MEDICARE (M) PART A Sep 16, 2005 PART A [id number] [phone] Rayne JACOBO PATIENT MEDICARE (WNR) MEDICARE () PART B Sep 16, 2005 PART B [id number] AVELINARENDY SRSUKI PATIENT MEDICARE (WNR) MEDICARE () PART A Sep 16, 2005 PART A YULIEHRLE SRSUKI PATIENT MEDICARE (WNR) MEDICARE (M) PART B Sep 16, 2005 PART B [id number] YULIEHRENDY SRSUKI PATIENT MEDICARE (WNR) MEDICARE (M) PART A Sep 16, 2005 PART A [id number] YULIEHRENDY SRSUKI PATIENT MEDICARE (WNR) MEDICARE () PART B Sep 16, 2005 PART B [id number] [phone] AVELINARENDY SRSUKI PATIENT OPTUM RX PRESCRIPT ION RX Jul 19, 2022 THPRX [id number] Rayne JACOBO PATIENT OPTUM RX PRESCRIPT ION RX Jul 19, 2022 THPRX [id number] Rayne JACOBO PATIENT OPTUM RX PRESCRIPT ION RX Jul 19, 2022 THPRX [id number] Rayne JACOBO PATIENT [facility] Jul 19, 2017 [id number] [phone] AVELINASiddharthaRayne SCHUMACHER PATIENT [facility] Jul 19, 2017 [facility] [id number] Rayne JACOBO PATIENT [facility] TON REYNA E Jul 19, 2017 [id number] Rayne JACOBO PATIENT [facility] CE ORGANIZ US FAMIL Y Jul 21, 2013 (WNR) [id number] DONNELLRayne SHELLEY PATIENT [facility] (WNR) TRICA RE(WN R) Jul 19, 2017 (WNR) [id number] DONNELLRayne PATIENT Selected Encounter This section includes the information on record at [place] for the Encounter. Date/Time Encounter Type Encounter Description Reason Pro vider Source Jul 23, 2023 11:12 AM Outpatient Encounter OPTOMETRY IHE Encounter Template Text not used by [place] Plan of Treatment: Future Appointments (+ 6 months) and Future Tests (+/- 45 days) The Plan of Treatment section includes future care activities for the patient from all [place] [facility]. This section includes future appointments and future orders which are active, pending or scheduled. Future Appointments This section includes appointments that were scheduled to occur 6 months from the date of the Encounter, up to a maximum of 20 appointments. The data comes from all [place] treatment facilities. Appointment Date/Time Appointment Type Appointme nt Facility Name Jul 30, 2023 08:30 AM AMBULATORY - MED[facility]INE [facility] Oct 11, 2023 02:30 PM [facility] [place] [facility] Nov 16, 2023 11:00 AM AMBULATORY - MEDICINE [facility]L [place] [facility] Dec 27, 2023 01:00 PM AMBULATORY - REHAB MEDICIN E [place] [facility]TR [place] [facility] Dec 31, 2023 10:30 AM AMBULATORY - MEDICINE [facility] Social History: Smoking Status (Most current) and Tobacco Use (All prior to encounter date) This section includes the most current, and the historical, smoking and tobacco- related health factors from the [place] facility where the Encounter took place. Current Smoking Status This section includes the most current smoking, or tobacco-related health factor, from the [place] facility where the Encounter took place. Date/Time Current Smoking Status Comment Facil ity Aug 23, 2019 09:07 AM DE-TOBACCO QUIT 15 YRS OR MORE [facility] Tobacco Use History This section includes a history of the smoking, or tobacco-related health factors, that were collected on or before the date of the Encounter. The data comes from the [place] facility where the Encounter took place. Date/Time Smoking Status/Tobacco Use Comment F acility Aug 23, 2019 09:07 AM DE-TOBACCO QUIT 15 YRS OR MORE [facility] [place] [facility] Jun 28, 2018 10:50 AM DE-TOBACCO FORMER USER [place] [facility]L [place] [facility] Jun 28, 2018 10:50 AM DE-TOBACCO QUIT 15 YRS OR MORE [place] [facility] [place] [facility] Oct 14, 2017 09:20 AM QUIT TOBACCO USE > 7 [facility] [place] [facility] Oct 05, 2016 01:02 PM QUIT TOBACCO USE > 7 YEARS AGO [facility] Advance Directives: All historical and current Section Date Range: From patient's date of to the date document was created. This section includes ALL of a patient's completed or amended [place] Advance and Rescinded Directives. The entries below indicate that a directive exists for the patient, but an actual copy is not included with this document. The data comes from all [place] facilities. Date Advance Directives Provider Source Nov 16, 2023 ADVANCE DIRECTIVE DOMENICAMARC [facility] Encounter Notes: All associated encounter notes This section contains the clinical notes associated to the Encounter. Date/Time Encounter Note(s) Provider Source Jul 26, 2023 08:13 AM ADDENDUM: LOCAL TITLE: Addendum STANDARD TITLE: ADDENDUM DATE OF NOTE: JUL 26, 2023@08:13:03 ENTRY DATE: JUL 26, 2023@08:13:04 AUTHOR: SHALONDA KOENIG COSIGNER: URGENCY: STATUS: COMPLETED Offer patient appointment for today at 10:30 AM or 2 PM. /alba/ SHALONDA KOENIG OD STAFF BALL WORKER Signed: 07/26/2023 08:13 Receipt Acknowledged By: 07/26/2023 08:15 /alba/ ROXANN KNUTSON ADVANCED RESEARCH NURSE ====== --- Original Document --- 07/23/23 TELEPHONE NOTE/SPECIALTY CLINIC: Kaylene called asking to be seen sooner than 08/13/2023, stating that on 2 occasins his left eye has crossed. No appointmnets available at the time of this note, pt will will also c/b on Wednesday to check for cancelations. /alba/ ROXANN KNUTSON ADVANCED RESEARCH NURSE Signed: 07/23/2023 11:14 Receipt Acknowledged By: 07/26/2023 08:12 /filippo KOENIG OD STAFF BALL WORKER 07/26/2023 07:36 /alba/ Ronnie Marmolejo OD CHIEF OF OPTOMETRY for VIVI WARNER 07/26/2023 ADDENDUM STATUS: COMPLETED please offer appointment 07/30/23 at (;[address] Montoya /alba/ Ronnie Marmolejo OD CHIEF OF OPTOMETRY Signed: 07/26/2023 07:40 Receipt Acknowledged By: 07/26/2023 07:54 /alba/ ROXANN KNUTSON ADVANCED RESEARCH NURSE SHALONDA KOENIG [place] [facility] [place] [facility] Jul 26, 2023 07:37 AM ADDENDUM: LOCAL TITLE: Addendum STANDARD TITLE: ADDENDUM DATE OF NOTE: JUL 26, 2023@07:37:02 ENTRY DATE: JUL 26, 2023@07:37:03 AUTHOR: RONNIE MARMOLEJO COSIGNER: URGENCY: STATUS: COMPLETED please offer appointment 07/30/23 at (;[address] Montoya /alba/ Ronnie Marmolejo OD CHIEF OF OPTOMETRY Signed: 07/26/2023 07:40 Receipt Acknowledged By: 07/26/2023 07:54 /filippo KNUTSON ADVANCED RESEARCH NURSE ====== --- Original Document --- 07/23/23 TELEPHONE NOTE/SPECIALTY CLINIC: Kaylene called asking to be seen sooner than 08/13/2023, stating that on 2 occasins his left eye has crossed. No appointmnets available at the time of this note, pt will will also c/b on Wednesday to check for cancelations. /alba/ ROXANN KNUTSON ADVANCED RESEARCH NURSE Signed: 07/23/2023 11:14 Receipt Acknowledged By: * AWAITING SIGNATURE * SHALONDA KOENGI 07/26/2023 07:36 /alba/ Ronnie Marmolejo OD CHIEF OF OPTOMETRY for VIVI WARNER RONNIE MARMOLEJO CNTRL [place] [facility] Jul 23, 2023 11:12 AM TELEPHONE ENCOUNTE R NOTE: LOCAL TITLE: TELEPHONE NOTE/SPECIALTY CLINIC STANDARD TITLE: TELEPHONE ENCOUNTER NOTE DATE OF NOTE: JUL 23, 2023@11:12 ENTRY DATE: JUL 23, 2023@11:12:10 AUTHOR: ROXANN KNUTSON EXP COSIGNER: URGENCY: STATUS: COMPLETED TELEPHONE NOTE/SPECIALTY CLINIC Has ADDENDA Kaylene called asking to be seen sooner than 08/13/2023, stating that on 2 occasins his left eye has crossed. No appointmnets available at the time of this note, pt will will also c/b on Wednesday to check for cancelations. /filippo KNUTSON ADVANCED RESEARCH NURSE Signed: 07/23/2023 11:14 Receipt Acknowledged By: 07/26/2023 08:12 /alba/ SHALONDA KOENIG OD STAFF BALL WORKER 07/26/2023 07:36 /alba/ Ronnie Marmolejo OD CHIEF OF OPTOMETRY for VIVI WARNER 07/26/2023 ADDENDUM STATUS: COMPLETED please offer appointment 07/30/23 at (;[address] Montoya /filippo Marmolejo OD CHIEF OF OPTOMETRY Signed: 07/26/2023 07:40 Receipt Acknowledged By: 07/26/2023 07:54 /alba/ ROXANN KNUTSON ADVANCED RESEARCH NURSE 07/26/2023 ADDENDUM STATUS: COMPLETED Offer patient appointment for today at 10:30 AM or 2 PM. /filippo KOENIG OD STAFF BALL WORKER Signed: 07/26/2023 08:13 Receipt Acknowledged By: 07/26/2023 08:15 /alba/ ROXANN KNUTSON ADVANCED RESEARCH NURSE 07/26/2023 ADDENDUM STATUS: COMPLETED Appointment offered but declined . /alba/ ROXANN KNUTSON ADVANCED RESEARCH NURSE Signed: 07/26/2023 08:16 [facility]OXANN [facility]NUTSON [facility]
--- OUTSIDE RECORDS SUMMARY | 2024-07-07 09:44 | XMS_ITS | Encounter Summary ---
Author Name [place] Address [address] [place] [address] Care Team Providers Care Administrative Assistant Front Desk Name Role Phone POLLY CLIFFORD Primary Care [...] Cherry's Name Patient's Relationship to Policy [facility] (WNR) MEDICARE ADVANTAGE [facility] (WNR) Jul 19, 2023 [id number] YULIRayne GARICA PATIENT CAREMARK PRESCRIPT ION [id number] 1 Jul 19, 2017 [id number] [phone] Rayne JACOBO PATIENT CAREMARK PRESCRIPT ION [id number] 1 Jul 19, 2017 [id number] Rayne JACOBO PATIENT MEDICARE (WNR) MEDICARE (M) PART A Sep 16, 2005 PART A [id number] [phone] [id number] Rayne JACOBO PATIENT MEDICARE (WNR) MEDICARE () PART B Sep 16, 2005 PART B [id number] [phone] [id number] AVELINARENDY SRSUKI PATIENT MEDICARE (WNR) MEDICARE () PART A Sep 16, 2005 PART A AVELINARLE SRSUKI PATIENT MEDICARE (WNR) MEDICARE (M) PART B Sep 16, 2005 PART B [id number] AVELIANRENDY SRSUKI PATIENT MEDICARE (WNR) MEDICARE (M) PART A Sep 16, 2005 PART A [id number] [phone] YULIEHRENDY SRSUKI PATIENT MEDICARE (WNR) MEDICARE (M) PART B Sep 16, 2005 PART B [id number] AVELINARSUKI SCHUMACHER SR PATIENT OPTUM RX PRESCRIPT ION RX Jul 19, 2022 THPRX [id number] Rayne JACOBO PATIENT OPTUM RX PRESCRIPT ION RX Jul 19, 2022 THPRX [id number] Rayne JACOBO PATIENT OPTUM RX PRESCRIPT ION RX Jul 19, 2022 THPRX [id number] Rayne JACOBO PATIENT [facility] Jul 19, 2017 [id number] [phone] Rayne JACOBO PATIENT [facility] Jul 19, 2017 [facility] [id number] Rayne JACOBO PATIENT [facility] REYNA Moya Jul 19, 2017 [id number] [phone] Rayne JACOBO PATIENT [facility] CE ORGANIZ US FAMIL Y Jul 21, 2013 (WNR) [id number] DONNELLRayne SHELLEY PATIENT [facility] (R) TRICA RE(WN R) Jul 19, 2017 (WNR) [id number] Rayne JACOBO SHELLEY PATIENT Selected Encounter This section includes the information on record at CT for the Encounter. Date/Time Encounter Type Encounter Description Reason Provider Source Oct 11, 2023 02:30 PM HEARING AID REPAIR/MODIFYIN G AUDIOLOGY ICD-10-CM Z46.1 Encounter for fitting and adjustment of hearing aid ELISABETH ESPINOZA Nita Encounter Template Text not used by CT Assessments - Encounter Diagnoses This section includes the primary and secondary diagnoses documented for the Encounter. Date/Time Primary/Secondary Diagnosis Diagnosis Name Provider Source Oct 11, 2023 02:34 PM PRIMARY Encounter for fitting and adjustment of hearing aid CHRISTIANO HARTMANN R[facility] Oct 11, 2023 02:34 PM SECONDARY Sensorineural hearing loss, bilateral CHRISTIANO HARTMANN [facility] Plan of Treatment: Future Appointments (+ 6 months) and Future Tests (+/- 45 days) The Plan of Treatment section includes future care activities for the patient from all [facility]. This section includes future appointments and future orders which are active, pending or scheduled. Future Appointments This section includes appointments that were scheduled to occur 6 months from the date of the Encounter, up to a maximum of 20 appointments. The data comes from all [facility]. Appointment Date/Time Appointment Type Appointme nt Facility Name Nov 16, 2023 11:00 AM AMBULATORY - MEDICINE [facility] [place] [facility] Dec 27, 2023 01:00 PM AMBULATORY - REHAB MEDICIN E CT CNTR [place] [facility] Dec 31, 2023 10:30 AM AMBULATORY - MEDICINE [facility] [place]L [place] [facility] Feb 10, 2024 08:30 AM [facility] Active, Pending, and Scheduled Orders This section includes a listing of several types of active, pending, and scheduled orders, including clinic medications orders, diagnostic test orders, procedure orders and consult orders; where the start date of the order is 45 days before the date of the Encounter or 45 days after the date of theEncounter. The data comes from all [place] treatment facilities. Test Date/Time Test Type Test Details Facility Name Nov 05, 2023 12:00 AM Laboratory - Chemi stry Order BASIC METABOLIC PANEL (non-fasting) [facility]LOOD [facility]UM[facility] Nov 05, 2023 12:00 AM Laboratory - Chemi stry Order LIVER FUNCTION BLOOD (SST-SERUM) [facility] Nov 05, 2023 12:00 AM Laboratory - Chemi stry Order LIPID PANEL, NON FASTING BLOOD (SST-SERUM) [facility] Nov 05, 2023 12:00 AM Laboratory - Chemi stry Order CBC BLOOD (LAV-BLOOD) [facility] Social History: Smoking Status (Most current) and Tobacco Use (All prior to encounter date) This section includes the most current, and the historical, smoking and tobacco- related health factors from the CT facility where the Encounter took place. Current Smoking Status This section includes the most current smoking, or tobacco-related health factor, from the CT facility where the Encounter took place. Date/Time Current Smoking Status Comment Facil ity Aug 23, 2019 09:[address]-TOBACCO QUIT 15 YRS OR MORE [facility] Tobacco Use History This section includes a history of the smoking, or tobacco-related health factors, that were collected on or before the date of the Encounter. The data comes from the CT facility where the Encounter took place. Date/Time Smoking Status/Tobacco Use Comment F acility Aug 23, 2019 09:07 AM VA-TOBACCO QUIT 15 YRS OR MORE [facility] Jun 28, 2018 10:50 AM VA-TOBACCO FORMER USER [facility] Jun 28, 2018 10:50 AM VA-TOBACCO QUIT 15 YRS OR MORE [facility] Oct 14, 2017 09:20 AM QUIT TOBACCO USE > 7 YEARS AGO [facility] Oct 05, 2016 01:02 PM QUIT TOBACCO USE > 7 YEARS AGO [facility] Advance Directives: All historical and current Section Date Range: From patient's date of to the date document was created. This section includes ALL of a patient's completed or amended CT Advance and Rescinded Directives. The entries below indicate that a directive exists for the patient, but an actual copy is not included with this document. The data comes from all CT facilities. Date Advance Directives Provider Source Nov 16, 2023 ADVANCE [address] MARC METZGER [address] CNTRL [place]N [place] [facility] Encounter Notes: All associated encounter notes This section contains the clinical notes associated to the Encounter. Date/Time Encounter Note(s) Provider Source Oct 11, 2023 02:30 PM AUDIOLOGY NOTE: LOCAL TITLE: AUDIOLOGY [facility] STANDARD TITLE: AUDIOLOGY NOTE DATE OF NOTE: OCT 11, 2023@14:30 ENTRY DATE: OCT 11, 2023@14:31:12 AUTHOR: RITIKA HARTMANN COSIGNER: ELISABETH ESPINOZA URGENCY: STATUS: COMPLETED [place] was seen on October 11, 2023 reporting the left battery door wasn't closing. [place] wore in his [employer] Delikatesser ITCs that were issued on 10/09/20. Initial inspection revealed the door was not closed all the way on both. The right door was a little more stiff than the left. [place] instructed to push the door until he hears/feels it click. Both hearing aids were cleaned and checked. Replaced wax guards and kandice covers. Biologic check was good. [place] will contact clinic prn. Suicide Screen: C-SSRS Screening [place]-Suicide Severity Rating Scale (C-SSRS Screener) 1. Over the past month, have you wished you were or wished you could go to sleep and not wake up? No 2. Over the past month, have you had any actual thoughts of killing yourself? No 3. Over the past month, have you been thinking about how you might do this? Response not required due to responses to other questions. 4. Over the past month, have you had these thoughts and had some intention of acting on them? Response not required due to responses to other questions. 5. Over the past month, have you started to work out or worked out the details of how to kill yourself? Response not required due to responses to other questions. 6. If yes, at any time in the past month did you intend to carry out this plan? Response not required due to responses to other questions. 7. In your lifetime, have you ever done anything, started to do anything, or prepared to do anything to end your life (for example, collected pills, obtained a gun, gave away valuables, went to the roof but didn't jump)? No 8. If YES, was this within the past 3 months? Response not required due to responses to other questions. /alba/ RITIKA HARTMANN [facility] Toll Test Desk Worker Signed: 10/11/2023 14:37 /alba/ Ricardo Bae, [facility] Real Estate Services Coordinator Cosigned: 10/11/2023 15:00 RITIKA HARTMANNRL ELSIE TAVARES
--- OUTSIDE RECORDS SUMMARY | 2024-07-07 09:44 | XMS_ITS | Encounter Summary ---
Author Name [facility] [place] [facility] [place] [facility] [place] [facility] [place] Address [address] [place] [address] Care Team Providers Care Armament Mechanic Name Role Phone POLLY CHANDRA Primary Care Provider Unavailabl e Insurance Providers: [...] Cherry's Name Patient's Relationship to Policy Cherry [facility] (WNR) MEDICARE ADVANTAGE [facility] (WNR) Jul 19, 2023 [id number] YULIRayne GARCIA PATIENT [facility] PRESCRIPT ION [id number] 1 Jul 19, 2017 [id number] Rayne JACOBO PATIENT [facility] PRESCRIPT ION [id number] 1 Jul 19, 2017 [id number] YULIRayne GARCIA PATIENT MEDICARE (WNR) MEDICARE (M) PART A Sep 16, 2005 PART A [id number] Rayne JACOBO PATIENT MEDICARE (WNR) MEDICARE () PART B Sep 16, 2005 PART B [id number] AVELINARENDY SRSUKI PATIENT MEDICARE (WNR) MEDICARE () PART A Sep 16, 2005 PART A AVELINARLE SRSUKI PATIENT MEDICARE (WNR) MEDICARE (M) PART B Sep 16, 2005 PART B [id number] [phone] AVELINARENDY SRSUKI PATIENT MEDICARE (WNR) MEDICARE (M) PART A Sep 16, 2005 PART A [id number] [phone] AVELINARENDY SRSUKI PATIENT MEDICARE (WNR) MEDICARE () PART B Sep 16, 2005 PART B [id number] AVELINARSUKI SCHUMACHER SR PATIENT OPTUM RX PRESCRIPT ION RX Jul 19, 2022 THPRX [id number] Rayne JACOBO PATIENT OPTUM RX PRESCRIPT ION RX Jul 19, 2022 THPRX [id number] Rayne JACOBO PATIENT OPTUM RX PRESCRIPT ION RX Jul 19, 2022 THPRX [id number] Rayne JACOBO PATIENT [facility] Jul 19, 2017 [id number] YULIZAHRASiddharthaRayne SCHUMACHER PATIENT [facility] Jul 19, 2017 [facility] [id number] Rayne JACOBO PATIENT [facility] TON REYNA Moya Jul 19, 2017 [id number] YULIRayne GARCIA PATIENT [facility] Jul 21, 2013 (WNR) [id number] DONNELLRayne SHELLEY PATIENT [facility] (R) [facility](WN R) Jul 19, 2017 (WNR) [id number] Rayne JACOBO SHELLEY PATIENT Selected Encounter This section includes the information on record at [place] for the Encounter. Date/Time Encounter Type Encounter Description Reason Pro vider Source Oct 29, 2023 06:12 PM Outpatient Encounter PRIMARY CARE/MEDICINE IHE Encounter Template Text not used by [place] Plan of Treatment: Future Appointments (+ 6 months) and Future Tests (+/- 45 days) The Plan of Treatment section includes future care activities for the patient from all [place] [facility] This section includes future appointments and future orders which are active, pending or scheduled. Future Appointments This section includes appointments that were scheduled to occur 6 months from the date of the Encounter, up to a maximum of 20 appointments. The data comes from all [facility]. Appointment Date/Time Appointment Type Appointme nt Facility Name Nov 16, 2023 11:00 AM AMBULATORY - MEDICINE [facility] Dec 27, 2023 01:00 PM AMBULATORY - REHAB MEDICIN E [facility] Dec 31, 2023 10:30 AM [facility] Feb 10, 2024 08:30 AM AMBULATORY - MEDICINE [facility] Active, Pending, and Scheduled Orders This section includes a listing of several types of active, pending, and scheduled orders, including clinic medications orders, diagnostic test orders, procedure orders and consult orders; where the start date of the order is 45 days before the date of the Encounter or 45 days after the date of theEncounter. The data comes from all [facility]. Test Date/Time Test Type Test Details Facility Name Nov 05, 2023 12:00 AM Laboratory - Chemi stry Order BASIC METABOLIC PANEL (non-fasting) BLOOD (SST-SERUM) [facility] Nov 05, 2023 12:00 AM Laboratory - Chemi stry Order CBC BLOOD (LAV-BLOOD) [facility] Nov 05, 2023 12:00 AM Laboratory - Chemi stry Order LIPID PANEL, NON FASTING BLOOD (SST-SERUM) [facility] Nov 05, 2023 12:00 AM Laboratory - Chemi troy Order LIVER FUNCTION BLOOD (SST-SERUM) SP [facility] Social History: Smoking Status (Most current) and Tobacco Use (All prior to encounter date) This section includes the most current, and the historical, smoking and tobacco- related health factors from the [place] facility where the Encounter took place. Current Smoking Status This section includes the most current smoking, or tobacco-related health factor, from the [place] facility where the Encounter took place. Date/Time Current Smoking Status Comment Facil ity Oct 29, 2023 06:12 PM VA-TOBACCO FORMER USER [facility] Tobacco Use History This section includes a history of the smoking, or tobacco-related health factors, that were collected on or before the date of the Encounter. The data comes from the [place] facility where the Encounter took place. Date/Time Smoking Status/Tobacco Use Comment F acility Oct 29, 2023 06:12 PM VA-TOBACCO QUIT 15 YRS OR MORE [facility] Aug 23, 2019 09:07 AM VA-TOBACCO FORMER USER [facility] Aug 23, 2019 09:07 AM VA-TOBACCO QUIT 15 YRS OR MORE [facility] Jun 28, 2018 10:50 AM VA-TOBACCO FORMER USER [facility] Jun 28, 2018 10:50 AM [place]-TO[place]ACCO QUIT 15 YRS OR MORE [facility] Oct 14, 2017 09:20 AM QUIT TOBACCO USE > 7 YEARS AGO [facility] Oct 05, 2016 01:02 PM QUIT TOBACCO USE > 7 YEARS AGO [facility] Advance Directives: All historical and current Section Date Range: From patient's date of to the date document was created. This section includes ALL of a patient's completed or amended [place] Advance and Rescinded Directives. The entries below indicate that a directive exists for the patient, but an actual copy is not included with this document. The data comes from all [place] facilities. Date Advance Directives Provider Source Nov 16, 2023 ADVANCE DIRECTIVE MARC METZGER [facility] Encounter Notes: All associated encounter notes This section contains the clinical notes associated to the Encounter. Date/Time Encounter Note(s) Provider Source Oct 29, 2023 06:17 PM PREVENTIVE MEDICINE NURSING NOTE: LOCAL TITLE: CLINICAL REMINDERS/NURSING STANDARD TITLE: PREVENTIVE MEDICINE NURSING NOTE DATE OF NOTE: OCT 29, 2023@18:17 ENTRY DATE: OCT 29, 2023@18:17:19 AUTHOR: ANDERSON GORDILLO COSIGNER: URGENCY: STATUS: COMPLETED Advance Directive Screen MH AD: Patient does not have an Advance Directive completed and is requesting more information. The patient received education about Advance Directives and written notification of his/her rights. Vet was sent an advanced directive and was asked to fill out and bring in for PCP. Depression Screening: Perform PHQ-2 A PHQ-2 screen was performed. The score was 0 which is a negative screen for depression. Over the past two weeks, how often have you been bothered by the following problems? 1. Little interest or pleasure in doing things Not at all 2. Feeling down, depressed, or hopeless Not at all Homelessness/Food Insecurity Screen: In the past 2 months, have you been living in stable housing that you own, rent, or stay in as part of a household? Yes - Living in stable housing. Are you worried or concerned that in the next 2 months you may NOT have stable housing that you own, rent, or stay in as part of a household? No - Not worried about housing near future The reports the following: Within the past 12 months, you worried whether your food would run out before you got money to buy more. Never true Within the past 12 months, the food you bought just didn't last and you didn't have money to get more. Never true Falls & Incontinence Screen: Falls Screen: During the past 12 months, did the patient report any falls? 4. No falls within the past year. Incontinence Screen: During the past 12 months, has the patient has any characteristics of incontinence (ability, voiding, leakage, etc.)? No incontinence. PTSD Screening: PC-PTSD-5 A PTSD screening test (PC-PTSD-5) was negative (score=0). IN THE PAST MONTH, have you ever had any experience that was so frightening, horrible or traumatic. For example: A serious accident or fire a physical or sexual assault or abuse An earthquake or flood A war Seeing someone be killed or seriously injured Having a loved one through homicide or suicide 1. Have you ever experienced this kind of event? NO 2. Had nightmares about the event(s) or thought about the event(s) when you did not want to? Response not required due to responses to other questions. 3. Tried hard not to think about the event(s) or went out of your way to avoid situations that reminded you of the event(s)? Response not required due to responses to other questions. 4. Been constantly on guard, watchful, or easily startled? Response not required due to responses to other questions. 5. [place] numb or detached from people, activities, or your surroundings? Response not required due to responses to other questions. 6. [place] guilty or unable to stop blaming yourself or others for the event(s) or any problems the event(s) may have caused? Response not required due to responses to other questions. Tobacco Use Screening: The patient is a former tobacco user. The patient quit fifteen or more years ago. Alcohol Use Screen (AUDIT-C): Alcohol Screen: SCREEN FOR ALCOHOL (AUDIT-C) An alcohol screening test (AUDIT-C) was negative (score=0). 1. How often did you have a drink containing alcohol in the past year? Consider a drink to be a 12 ounce can or bottle of regular beer, 8 ounces of malt liquor, a 5 ounce glass of table wine, or a 1.5 ounce shot of liquor (like scotch, gin, or vodka). Never 2. How many drinks containing alcohol did you have on a typical day when you were drinking in the past year? Response not required due to responses to other questions. 3. How often did you have six or more drinks on one occasion in the past year? Response not required due to responses to other questions. Influenza Immunization: The patient declines to receive the recommended dose of seasonal influenza vaccine. Immunization: INFLUENZA, UNSPECIFIED FORMULATION Refusal Reason: PATIENT DECISION Patient refuses all immunization(s) in the FLU group Comment: Refuses Date Documented: 10/29/23 18:48 /alba/ ANDERSON GORDILLO MSN Ed., BSN MECHANICAL ENGINEERING COOP NURSE Signed: 10/29/2023 19:54 ANDERSON GORDILLO [facility] Oct 29, 2023 06:14 PM MEDICATION MGT NOTE: LOCAL TITLE: MEDICATION RECONCILIATION STANDARD TITLE: MEDICATION MGT NOTE DATE OF NOTE: OCT 29, 2023@18:14 ENTRY DATE: OCT 29, 2023@18:14:32 AUTHOR: ANDERSON GORDILLO EXP COSIGNER: URGENCY: STATUS: COMPLETED Vet was given an appt with Dr. Chandra on 11/16/23@1100. F: Medication reconciliation D: Vet says that he is on the following meds: 1. Albuterol UDH 2 puffs Q4hrs as needed for SOB 2. dilTIAZem (CARDIZEM CD) 180 MG by mouth Daily 24 hr capsule 0 04/18/2021 Active 3. XARELTO 20 mg Tab 0 by mouth Daily 03/14/2021 Active 4. citalopram (CELEXA) 40 MG by mouth Daily tablet 0 09/17/2021 Active 5. levETIRAcetam (KEPPRA) 750 MG by mouth BID tablet 0 10/15/2021 Active 6. tamsulosin (FLOMAX) 0.4 mg Capby daily BID 0 10/15/2021 Active 7. Carboxymethylcellullose 1gtt/OU QID 12. benzonatate (TESSALON) 100 MG capsule Take 1 capsule (100 mg total) by mouth 3 (three) times a day as needed for cough. 21 capsule 0 04/22/2021 04/29/2021 13. ketotifen (ZADITOR) 0.025 % (0.035 %) ophthalmic solution INSTILL 1 DROP INTO EACH EYE EVERY 12 HOURS (IF YOU WEAR CONTACT LENSES, WAIT 10 MINUTES BEFORE INSERTING LENSES) 0 06/17/2020 06/18/2021 14. Fluticasone 50mcg 1 spray each nare for nasal congestion 15. Furosemide 20mg by mouth as needed for leg swelling 16. Clartin 10mg by mouth Daily for allergies 17. Nitroglycerin 0.3 mg SL X 3 and then call 911. 18 Zinc 50mg by mouth Daily 19 Lipitor 20mg by mouth QHS 20. Calcium 500mg by mouth Daily Vet says that he has the following Medical Hx: 1. Benign prostatic hyperplasia without urinary obstruction- Enlarged prostate 2. Benign essential hypertension 3. Cerebral atrophy 4. H/O: osteoarthritis- Knee-Bilateral 5. Hepatitis C 6. Lumbosacral radiculopathy 7. Multiple renal cysts 8. Seizure disorder 9. 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 Hydrocodone 2. Piroxicam 3. Codeine 4. Vicodin Vekentrell says that he has the following Community Providers: 1. Tasneem TOSCANO- Retired General Work Place: [address] [place] [address] Tel: Merged With [facility] 2. Von TOSCANO - PCP General Work Place: [address] [place] [address] Tel: [facility] /es/ ANDERSON GORDILLO MSN Ed., BSN MECHANICAL ENGINEERING COOP NURSE Signed: 10/29/2023 19:39 Receipt Acknowledged By: 11/01/2023 08:51 /es/ TUCKER DIEZ MD STAFF PHYSICIAN for POLLY CHANDRA 11/01/2023 07:56 /es/ TIARA DANIELS, RN REGISTERED NURSE 11/01/2023 07:37 /es/ MARC METZGER LPN License Practical Nurse 11/01/2023 08:08 /es/ ANDERSON BOSS [place] [facility] Oct 29, 2023 06:13 PM LETTERS: LOCAL TITLE: PATIENT LETTER (B) STANDARD TITLE: LETTERS DATE OF NOTE: OCT 29, 2023@18:13 ENTRY DATE: OCT 29, 2023@18:13:53 AUTHOR: ANDERSON GORDILLO EXP COSIGNER: URGENCY: STATUS: COMPLETED [facility] [address] [address] * * Date: 10/29/23 Dear [place]: Leonardo Thank you for choosing the [facility] [place] [facility]. The Whole Health Program aims to support you in pursuing what matters most to you, and includes services that support your values and overall wellness. This includes the following offerings: * Yoga * Acupuncture * [place] Acupuncture for Acute Pain (offered weekly; drop-in or scheduled) * Individual health coaching * [employer] Truck [employer] * Biofeedback for Hypertension and Anxiety * Guided Imagery Group * Meditation Group * Cancer Support Group * Stress Management Group ( Stress Less ) The following require no referral from a provider, and can be initiated by you at any time: * Yoga * Meditation * [place]tree Acupuncture * Cancer Support Group * Individual Health Coaching * Stress Management Group ( Stress Less ) If interested in any of the above offerings, please reach out to the Whole Health Team at [phone]. To schedule consult-required services, or if you would like more information regarding [place] health care benefits, please call toll free at [phone]), visit the [place] website at www.[place].gov/healthbenefits, or contact your local [place] Medical Center. If you have any questions, please do not hesitate to contact the Department of 's Affairs call center. Sincerely. Dr. Dana Braxton [facility] Direct ANDERSON GORDILLO [place] [facility] Oct 29, 2023 06:12 PM LETTERS: LOCAL TITLE: PATIENT LETTER (B) STANDARD TITLE: LETTERS DATE OF NOTE: OCT 29, 2023@18:12 ENTRY DATE: OCT 29, 2023@18:12:10 AUTHOR: ANDERSON GORDILLO EXP COSIGNER: URGENCY: STATUS: [place] [address] [phone] * [phone] Ext [phone] * Date: 10/29/23 Dear : Leonardo Thank you for choosing the [facility] [place] [facility]. Please be a few minutes early to this appt- about 15 mins. We would like to update your demographic information. To schedule or if you would like more information regarding [place] health care benefits, please call toll free at [phone]), visit the [place] website at www.[place].gov[place], or contact your local [place] Medical Center. Welcome to patient aligned care team (Pact Team Eight) with (Dr. Chandra). Prior to meeting you at your new patient appointment we are requesting some of your past medical history so that we may provide you with the exceptional care you deserve. Please note that it is very helpful to have these documents prior to your appointment date as the more information we have the better we will be able to meet your needs: * Last History & Physical * Immunization records * Medication list * Diagnosis list * Most recent labs * Diagnostic screens (Colonoscopy, Abdominal Aortic Aneurysm screen, Mammograms, PAPS, etc.) We have scheduled the following appt with you to see your new PCP: Your appt is scheduled for (11/16/23@1100)- This appt will be about an hour long appt which will give you and your Provider a chance to get to know each other. We have noticed that you are due to receive the following Immunizations: 1. Covid 19 vaccine You may either bring your records with you to your scheduled appointment, or drop them off ahead of your appointment or you may have them faxed to ATTN: CWM/NO/PACT-EightHieu [place]on If you have any questions, please do not hesitate to contact the Department of [place] Affairs call center at Ext [phone]. Just so that you know if you're feeling sick we have sick call hours at the [facility], and the [facility]- Wed thru Wednesday 08-1530- first come first serve- walk-in basis. [facility] has sick call hours Wed-Wed- -12, and 3P-4P- first come, first serve, walk-in basis- no appt needed. You can utilize our sick call system once you have seen your Primary Care Physician for the first time. Audiology Phone number- [phone]- Ext [phone] Optometry Phone Number- [phone]- Ext [phone] Mental Health Clinic- [phone] Ext- [phone] Eligibility/Enrollment- [phone], or- [phone] [facility] [address] [phone] Ext [phone] RAINA Harrison [phone] [place] Transportation [phone] Ext [phone], or,[phone] [place] Act [phone] ( Call within 72hrs of being seen in an acute care setting) Sincerely. [facility] [address] [place] [address] Phone: Ext [phone] Upcoming Appointments: 11/16/23@1100- CWM/NO/PACT- Eight- [place] Christopher Chilson MSN Ed., BSN, RN [facility] Outpatient [facility] [address] [address] [place] [address] - Ext [phone] [facility] Outpatient [address] [address] [place] [address] [place] [address] ANDERSON GORDILLO [place] [facility]
--- OUTSIDE RECORDS SUMMARY | 2024-07-07 09:44 | XMS_ITS ---
Author Name [facility] [place] Address [address] [place] [address] Care Team Providers Care Rigging Engineer Name Role Phone POLLY CLIFFORD Primary [...] Cherry's Name Patient's Relationship to Policy Cherry [facility] (WNR) MEDICARE ADVANTAGE [facility] (R) Jul 19, 2023 [id number] Rayne JACOBO PATIENT CAREMARK PRESCRIPT ION [id number] 1 Jul 19, 2017 [id number] Rayne JCAOBO PATIENT CAREMARK PRESCRIPT ION [id number] 1 Jul 19, 2017 [id number] Rayne JACOBO PATIENT MEDICARE (WNR) MEDICARE (M) PART A Sep 16, 2005 PART A [id number] Rayne JACOBO PATIENT MEDICARE (WNR) MEDICARE () PART B Sep 16, 2005 PART B [id number] AVELINARENDY SRSUKI PATIENT MEDICARE (WNR) MEDICARE () PART A Sep 16, 2005 PART A [id number] YULIEHRLE SRSUKI PATIENT MEDICARE (WNR) MEDICARE (M) PART B Sep 16, 2005 PART B [id number] YULIEHRENDY SRSUKI PATIENT MEDICARE (WNR) MEDICARE (M) PART A Sep 16, 2005 PART A [id number] YULIEHRENDY SRSUKI PATIENT MEDICARE (WNR) MEDICARE () PART B Sep 16, 2005 PART B [id number] AVELINARENDY SRSUKI PATIENT OPTUM RX PRESCRIPT ION RX Jul 19, 2022 THPRX [id number] Rayne JACOBO PATIENT OPTUM RX PRESCRIPT ION RX Jul 19, 2022 THPRX [id number] Rayne JACOBO PATIENT OPTUM RX PRESCRIPT ION RX Jul 19, 2022 THPRX [id number] Rayne JACOBO PATIENT [facility] Jul 19, 2017 [id number] AVELINASiddharthaRayne SCHUMACHER PATIENT PENDING SALE TO [facility] Jul 19, 2017 [facility] [id number] [phone] Rayne JACOBO PATIENT [facility] Jul 19, 2017 [id number] Rayne JACOBO PATIENT [facility]ENDING S[facility] CE ORGANIZ US FAMIL Y Jul 21, 2013 (WNR) [id number] DONNELLRayne SHELLEY PATIENT [facility] (WNR) TRICA RE(WN R) Jul 19, 2017 (WNR) [id number] DONNELLRayne PATIENT Selected Encounter This section includes the information on record at [place] for the Encounter. Date/Time Encounter Type Encounter Description Reason Provider Source Oct 25, 2023 08:57 AM Outpatient Encounter TELEPHONE TRIAGE TATUM TERRAZASELL Nita Mclain IHNita Encounter Template Text not used by [place] Plan of Treatment: Future Appointments (+ 6 months) and Future Tests (+/- 45 days) The Plan of Treatment section includes future care activities for the patient [facility] This section includes future appointments and future orders which are active, pending or scheduled. Future Appointments This section includes appointments that were scheduled to occur 6 months from the date of the Encounter, up to a maximum of 20 appointments. The data comes from all [facility]. Appointment Date/Time Appointment Type Appointme nt Facility Name Nov 16, 2023 11:00 AM AMBULATORY - MEDICINE [facility] Dec 27, 2023 01:00 PM AMBULATORY - REHAB MEDICIN E [facility] Dec 31, 2023 10:30 AM AMBULATORY - MEDICINE [facility] Feb 10, 2024 08:30 AM AMBULATORY MEDICINE [facility] Active, Pending, and Scheduled Orders This section includes a listing of several types of active, pending, and scheduled orders, including clinic medications orders, diagnostic test orders, procedure orders and consult orders; where the start date of the order is 45 days before the date of the Encounter or 45 days after the date of theEncounter. The data comes from all [facility]. Test Date/Time Test Type Test Details Facility Name Nov 05, 2023 12:00 AM Laboratory - Chemi stry Order BASIC METABOLIC PANEL (non-fasting) BLOOD (SST-SERUM) [facility] Nov 05, 2023 12:00 AM Laboratory - Chemi stry Order CBC BLOOD (LAV-BLOOD) [facility] Nov 05, 2023 12:00 AM Laboratory - Chemi stry Order LIPID PANEL, NON FASTING BLOOD (SST-SERUM) [facility] Nov 05, 2023 12:00 AM Laboratory - Chemi stry Order LIVER FUNCTION BLOOD (SST-SERUM) SP [facility] Social History: Smoking Status (Most current) and Tobacco Use (All prior to encounter date) This section includes the most current, and the historical, smoking and tobacco- related health factors from the [place] facility where the Encounter took place. Current Smoking Status This section includes the most current smoking, or tobacco-related health factor, from the [place] facility where the Encounter took place. Date/Time Current Smoking Status Comment Facil ity Aug 23, 2019 09:07 AM [place]-TOBACCO QUIT 15 YRS OR MORE [facility] Tobacco Use History This section includes a history of the smoking, or tobacco-related health factors, that were collected on or before the date of the Encounter. The data comes from the [place] facility where the Encounter took place. Date/Time Smoking Status/Tobacco Use Comment F acility Aug 23, 2019 09:07 AM [place]-TOBACCO QUIT 15 YRS OR MORE [facility] Jun 28, 2018 10:50 AM MA-TOBACCO FORMER USER [facility] Jun 28, 2018 10:50 AM [place]-TOBACCO QUIT 15 YRS OR MORE [facility] Oct 14, 2017 09:20 AM QUIT TOBACCO USE > 7 YEARS AGO [facility] Oct 05, 2016 01:02 PM QUIT TOBACCO USE > 7 YEARS AGO [facility] Advance Directives: All historical and current Section Date Range: From patient's date of to the date document was created. This section includes ALL of a patient's completed or amended [place] Advance and Rescinded Directives. The entries below indicate that a directive exists for the patient, but an actual copy is not included with this document. The data comes from all [place] facilities. Date Advance Directives Provider Source Nov 16, 2023 ADVANCE DIRECTIVE MARC METZGER [facility] Encounter Notes: All associated encounter notes This section contains the clinical notes associated to the Encounter. Date/Time Encounter Note(s) Provider Source Oct 28, 2023 04:58 PM ADDENDUM: LOCAL TITLE: Addendum STANDARD TITLE: ADDENDUM DATE OF NOTE: OCT 28, 2023@16:58:31 ENTRY DATE: OCT 28, 2023@16:58:31 AUTHOR: LYLY KERRIGNER: URGENCY: STATUS: COMPLETED Please call to establish care in [place] /alba/ LYLY KERR PLASTER HELPER ERICA Signed: 10/28/2023 16:59 Receipt Acknowledged By: 11/02/2023 08:22 /alba/ ANDERSON GORDILLO MSN Ed., BSN WINDING INSPECTOR NURSE ========= --- Original Document --- 10/25/23 CCC: CLINICAL TRIAGE: Patient Demographics Patient Name: LEONARDO JACOBO Patient Primary Address: [address] [place] [address] Patient Primary Phone: [phone] Patient : 1940 Patient Age: 83 Caller/Recipient Relation to Patient: Self Emergency Contact: LINDEN PARDO Patient Disposition Patient/Caregiver agrees to plan of care: Yes Nursing Plan and Disposition Other course(s) of action Generated msg to PACT/Provider Alternative course of action Alternative courses of action: Per note Nurse Summary Nurse Summary: Calls to request VA PCP f/u Not currently assigned VA PCP States he has had a cough for which he saw non-VA PCP and it was noted he also has cerumen impaction States his symptoms are become more bothersome and would like to be seen at [place] for another option. Informed patient as no current PCP a referral will need to be enter to request, then he can be scheduled. States he would like VA PCP, however unable to wait for scheduling. Advised him to contact non-VA PCP or be seen in local UC/ED. He agrees, will call non-VA PCP for further treatment or report to UC. Informed him I will alert [facility] for new patient referral. Plan: -Alert to request for new PCP referral for [facility] -Will use non-VA resources for current symptoms as above Contact # Clinical Contact Center Codes Clinic/Location: V1 CWM PHONE CCC RN /es/ SHAINA TERRAZAS VISN 1 CCC RN Signed: 10/25/2023 08:57 Receipt Acknowledged By: 10/25/2023 10:30 /es/ JEAN-PIERRE NARVAEZ MSA PLASTER HELPER, [facility] 10/28/2023 16:57 /es/ LYLY KERR PLASTER HELPER [facility] 10/25/2023 14:04 /es/ BOB ANDERS PLASTER HELPER MUSEUM GUIDE LYLY KERR [place] [facility]N [place] Oct 25, 2023 08:57 AM RN PROGRESS NOTE: LOCAL TITLE: CCC: CLINICAL TRIAGE STANDARD TITLE: RN PROGRESS NOTE DATE OF NOTE: OCT 25, 2023@08:57:38 ENTRY DATE: OCT 25, 2023@08:57:38 AUTHOR: SHAINA TERRAZAS EXP COSIGNER: URGENCY: STATUS: COMPLETED CCC: CLINICAL TRIAGE Has ADDENDA Patient Demographics Patient Name: LEONARDO JACOBO Patient Primary Address: [address] [place] [address] Patient Primary Phone: [phone] Patient : 1940 Patient Age: 83 Caller/Recipient Relation to Patient: Self Emergency Contact: LINDEN PARDO Patient Disposition Patient/Caregiver agrees to plan of care: Yes Nursing Plan and Disposition Other course(s) of action Generated msg to PACT/Provider Alternative course of action Alternative courses of action: Per note Nurse Summary Nurse Summary: Calls to request VA PCP f/u Not currently assigned VA PCP States he has had a cough for which he saw non-VA PCP and it was noted he also has cerumen impaction States his symptoms are become more bothersome and would like to be seen at [place] for another option. Informed patient as no current PCP a referral will need to be enter to request, then he can be scheduled. States he would like VA PCP, however unable to wait for scheduling. Advised him to contact non-VA PCP or be seen in local UC/ED. He agrees, will call non-VA PCP for further treatment or report to UC. Informed him I will alert [facility] for new patient referral. Plan: -Alert to request for new PCP referral for [facility] -Will use non-VA resources for current symptoms as above Contact # Clinical Contact Center Codes Clinic/Location: V1 CWM PHONE LUCIEN RN /alba/ SHAINA RODRIGUEZ 1 LUCIEN RN Signed: 10/25/2023 08:57 Receipt Acknowledged By: 10/25/2023 10:30 /es/ JEAN-PIERRE NARVAEZ MSA PLASTER HELPER, [facility] 10/28/2023 16:57 /es/ LYLY KERR PLASTER HELPER ERICA 10/25/2023 14:04 /es/ BOB ANDERS PLASTER HELPER MUSEUM GUIDE 10/28/2023 ADDENDUM STATUS: COMPLETED Please call to establish care in [place] /alba/ LYLY KERR PLASTER HELPER ERICA Signed: 10/28/2023 16:59 Receipt Acknowledged By: * AWAITING SIGNATURE * ANDERSON GORDILLO JANELLE M [facility]
--- OUTSIDE RECORDS SUMMARY | 2024-07-07 09:45 | XMS_ITS | Encounter Summary ---
Author Name [place] Address [address] [place] [address] Care Team Providers Care National Coverage Specialist Name Role Phone POLLY CLIFFORD Primary Care [...] Cherry's Name Patient's Relationship to Policy Cherry [facility] (WNR) MEDICARE ADVANTAGE [facility] [facility]) Jul 19, 2023 [id number] Rayne JACOBO PATIENT CAREMARK PRESCRIPT ION [id number] 1 Jul 19, 2017 [id number] Rayne JACOBO PATIENT CAREMARK PRESCRIPT ION [id number] 1 Jul 19, 2017 [id number] [phone] [id number] YULIRayne GARCIA PATIENT MEDICARE (WNR) MEDICARE (M) PART A Sep 16, 2005 PART A [id number] Rayne JACOBO PATIENT MEDICARE (WNR) MEDICARE () PART B Sep 16, 2005 PART B [id number] [id number] AVELINARENDY SRSUKI PATIENT MEDICARE (WNR) MEDICARE () PART A Sep 16, 2005 PART A YULIEHRLE SRSUKI PATIENT MEDICARE (WNR) MEDICARE (M) PART B Sep 16, 2005 PART B [id number] [phone] YULIEHRENDY SRSUKI PATIENT MEDICARE (WNR) MEDICARE (M) PART A Sep 16, 2005 PART A [id number] [phone] YULIEHRENDY SRSUKI PATIENT MEDICARE (WNR) MEDICARE () PART B Sep 16, 2005 PART B [id number] AVELINARENDY SRSUKI PATIENT OPTUM RX PRESCRIPT ION RX Jul 19, 2022 THPRX [id number] Rayne JACOBO PATIENT OPTUM RX PRESCRIPT ION RX Jul 19, 2022 THPRX [id number] Rayne JACOBO PATIENT OPTUM RX PRESCRIPT ION RX Jul 19, 2022 THPRX [id number] Rayne JACOBO PATIENT [facility] Jul 19, 2017 [id number] AVELINASiddharthaRayne SCHUMACHER PATIENT [facility] Jul 19, 2017 RUST [id number] Rayne JACOBO PATIENT [facility] Jul 19, 2017 [id number] Rayne JACOBO PATIENT [facility] CE ORGANIZ US FAMIL Y Jul 21, 2013 (WNR) [id number] DONNELLRayne SHELLEY PATIENT [facility] (WNR) TRICA RE(WN R) Jul 19, 2017 (WNR) [id number] Rayne JACOBO SHELLEY PATIENT Selected Encounter This section includes the information on record at [place] for the Encounter. Date/Time Encounter Type Encounter Description Reason Pro vider Source Feb 10, 2024 09:17 AM Outpatient Encounter OPTOMETRY IHE Encounter Template Text not used by [place] Plan of Treatment: Future Appointments (+ 6 months) and Future Tests (+/- 45 days) The Plan of Treatment section includes future care activities for the patient from all [place] treatmentfacilities. This section includes future appointments and future orders which are active, pending or scheduled. Future Appointments This section includes appointments that were scheduled to occur 6 months from the date of the Encounter, up to a maximum of 20 appointments. The data comes from all [place] treatment facilities. Appointment Date/Time Appointment Type Appointme nt Facility Name Jul 10, 2024 08:30 AM AMBULATORY - MEDICINE [facility] Social History: Smoking Status (Most current) and Tobacco Use (All prior to encounter date) This section includes the most current, and the historical, smoking and tobacco- related health factors from the [place] facility where the Encounter took place. Current Smoking Status This section includes the most current smoking, or tobacco-related health factor, from the [place] facility where the Encounter took place. Date/Time Current Smoking Status Comment Facil ity Oct 29, 2023 06:12 PM VA-TOBACCO FORMER USER [place] [facility] [place] [facility] Tobacco Use History This section includes a history of the smoking, or tobacco-related health factors, that were collected on or before the date of the Encounter. The data comes from the [place] facility where the Encounter took place. Date/Time Smoking Status/Tobacco Use Comment F acility Oct 29, 2023 06:12 PM VA-TOBACCO QUIT 15 YRS OR MORE [place] [facility] [place] [place] [facility] Aug 23, 2019 09:07 AM VA-TOBACCO FORMER USER [place] [facility] [place] [facility] Aug 23, 2019 09:07 AM VA-TOBACCO QUIT 15 YRS OR MORE [place] [facility] [place] [facility] Jun 28, 2018 10:50 AM VA-TOBACCO FORMER USER [place] [facility] [place] [facility] Jun 28, 2018 10:50 AM VA-TOBACCO QUIT 15 YRS OR MORE [facility] Oct 14, 2017 09:20 AM QUIT TOBACCO USE > 7 YEARS AGO [facility] Oct 05, 2016 01:02 PM QUIT TOBACCO USE > 7 YEARS AGO [facility] Advance Directives: All historical and current Section Date Range: From patient's date of to the date document was created. This section includes ALL of a patient's completed or amended [place] Advance and Rescinded Directives. The entries below indicate that a directive exists for the patient, but an actual copy is not included with this document. The data comes from all [place] facilities. Date Advance Directives Provider Source Nov 16, 2023 ADVANCE DIRECTIVE MARC METZGER [facility] Encounter Notes: All associated encounter notes This section contains the clinical notes associated to the Encounter. Date/Time Encounter Note(s) Provider Source Feb 10, 2024 09:17 AM TELEPHONE ENCOUNTE R NOTE: LOCAL TITLE: TELEPHONE NOTE/SPECIALTY CLINIC STANDARD TITLE: TELEPHONE ENCOUNTER NOTE DATE OF NOTE: FEB 10, 2024@09:17 ENTRY DATE: FEB 10, 2024@09:17:24 AUTHOR: MATIAS WOODARD SA COSIGNER: URGENCY: STATUS: COMPLETED TELEPHONE NOTE/SPECIALTY CLINIC Has ADDENDA Called to schedule fololow up Optometry appointment with provider. Mikana just saw another provider on 02/10/2024 and provider put in an RTC PID of 08/12/2024. Appointment scheduled for 04/06/2024 at 9:00am no longer required. Mikana scheduled fo a future appointment with provider on 09/20/2024 at 3:00pm. Mikana aware and agreeable. /alba/ MATIAS WOODARD Signed: 02/10/2024 09:22 04/17/2024 ADDENDUM STATUS: COMPLETED AMSA was informed by Dr. Guadarrama that the Optometry appointment for 04/18/2024 at 9:30am is not needed unless the has an emergency eye issue. AMSA called and spoke to the and the stated he is not currently having any serious issues with his eyes, he just wanted an earlier appointment. AMSA stated that per provider and cprs note, that does not need to be scheduled before the PID date of 08/12/2024. ERICA rescheduled the for the original date he was scheduled on 09/20/2024 at 3:00pm. /alba/ MATIAS WOODARD Signed: 04/17/2024 16:26 MATIAS WOODARD [place] [facility]
--- OUTSIDE RECORDS SUMMARY | 2024-07-07 09:45 | XMS_ITS ---
Author Name [place] Address [address] [place] [address] Care Team Providers Care Food Chemist Name Role Phone POLLY CLIFFORD Primary Care [...] Cherry's Name Patient's Relationship to Policy Cherry [facility] (WNR) MEDICARE ADVANTAGE [facility] Jul 19, 2023 [id number] YULIRayne GARCIA PATIENT CAREMARK PRESCRIPT ION [id number] 1 Jul 19, 2017 [id number] Rayne JACOBO PATIENT CAREMARK PRESCRIPT ION [id number] 1 Jul 19, 2017 [id number] YULIZAHRASiddharthaRayne SCHUMACHER PATIENT MEDICARE (WNR) MEDICARE (M) PART A Sep 16, 2005 PART A [id number] [id number] [id number] Rayne JACOBO PATIENT MEDICARE (WNR) MEDICARE () PART B Sep 16, 2005 PART B [id number] AVELINARENDY SRSUKI PATIENT MEDICARE (WNR) MEDICARE () PART A Sep 16, 2005 PART A [id number] AVELINARLE SRSUKI PATIENT MEDICARE (WNR) MEDICARE () PART B Sep 16, 2005 PART B [id number] [phone] YULIEHRENDY SRSUKI PATIENT MEDICARE (WNR) MEDICARE () PART A Sep 16, 2005 PART A [id number] YULIEHRENDY SRSUKI PATIENT MEDICARE (WNR) MEDICARE () PART B Sep 16, 2005 PART B [id number] AVELINARSUKI SCHUMACHER SR PATIENT OPTUM RX PRESCRIPT ION RX Jul 19, 2022 THPRX [id number] Rayne JACOBO PATIENT OPTUM RX PRESCRIPT ION RX Jul 19, 2022 THPRX [id number] Rayne JACOBO PATIENT OPTUM RX PRESCRIPT ION RX Jul 19, 2022 THPRX [id number] Rayne JACOBO PATIENT [facility] Jul 19, 2017 [id number] AVELINASiddharthaRayne SCHUMACHER PATIENT [facility] Jul 19, 2017 [facility] [id number] Rayne JACOBO PATIENT [facility] Jul 19, 2017 [id number] 26 Rayne JACOBO PATIENT [facility] CE ORGANIZ US FAMIL Y Jul 21, 2013 (WNR) [id number] DONNELLRayne SHELLEY PATIENT [facility] (R) TRICA RE(WN R) Jul 19, 2017 (WNR) [id number] DONNELLRayne ROSA PATIENT Selected Encounter This section includes the information on record at [place] for the Encounter. Date/Time Encounter Type Encounter Description Reason Pro vider Source Jan 27, 2024 01:30 PM Outpatient Encounter COMMUNITY CARE CONSULT IHE Encounter Template Text not used by [place] Plan of Treatment: Future Appointments (+ 6 months) and Future Tests (+/- 45 days) The Plan of Treatment section includes future care activities for the patient from all [place] treatmentfacilities. This section includes future appointments and future orders which are active, pending or scheduled. Future Appointments This section includes appointments that were scheduled to occur 6 months from the date of the Encounter, up to a maximum of 20 appointments. The data comes from all [place] treatment facilities. Appointment Date/Time Appointment Type Appointme nt Facility Name Feb 10, 2024 08:30 AM AMBULATORY - MEDICINE [facility] Jul 10, 2024 08:30 AM AMBULATORY - MEDICINE [facility] [place] [facility] Social History: Smoking Status (Most current) and Tobacco Use (All prior to encounter date) This section includes the most current, and the historical, smoking and tobacco- related health factors from the [facility] facility where the Encounter took place. Current Smoking Status This section includes the most current smoking, or tobacco-related health factor, from the [place] facility where the Encounter took place. Date/Time Current Smoking Status Comment Facil ity Oct 29, 2023 06:12 PM [facility] Tobacco Use History This section includes a history of the smoking, or tobacco-related health factors, that were collected on or before the date of the Encounter. The data comes from the [place] facility where the Encounter took place. Date/Time Smoking Status/Tobacco Use Comment F acility Oct 29, 2023 06:12 PM VA-TOBACCO QUIT 15 YRS OR MORE [place] [facility] [place] [facility] Aug 23, 2019 09:07 AM VA-TOBACCO FORMER USER [place] [facility] Aug 23, 2019 09:07 AM VA-TOBACCO QUIT 15 YRS OR MORE [place] [facility] [place] [facility] Jun 28, 2018 10:50 AM VA-TOBACCO FORMER USER [place] [facility] [place] [facility] Jun 28, 2018 10:50 AM VA-TOBACCO QUIT 15 YRS OR MORE [place] [facility] [place] [facility] Oct 14, 2017 09:20 AM QUIT TOBACCO USE > 7 YEARS AGO [place] [facility] [place] [facility] Oct 05, 2016 01:02 PM QUIT TOBACCO USE > 7 YEARS AGO [facility] Advance Directives: All historical and current Section Date Range: From patient's date of to the date document was created. This section includes ALL of a patient's completed or amended [place] Advance and Rescinded Directives. The entries below indicate that a directive exists for the patient, but an actual copy is not included with this document. The data comes from all [place] facilities. Date Advance Directives Provider Source Nov 16, 2023 ADVANCE DIRECTIVE MARC METZGER [facility] Encounter Notes: All associated encounter notes This section contains the clinical notes associated to the Encounter. Date/Time Encounter Note(s) Provider Source Jan 27, 2024 01:30 PM NONVA NOTE: LOCAL TITLE: [facility] PRESENTING CARE COORD PLAN STANDARD TITLE: NONVA NOTE DATE OF NOTE: JAN 27, 2024@13:30 ENTRY DATE: JAN 27, 2024@13:30:31 AUTHOR: SEGUNDO MCFARLANE EXP COSIGNER: URGENCY: STATUS: COMPLETED Emergency Notification Intake Date Presenting to the Facility: November Method of Contact: Notified from [facility] worklist Notification ID: [id number] [facility] Referral #: [id number] [facility] Hospital Name: Hospital: [facility] Address: City: [place] State: [place] Zip Code: Phone : [facility] Facility Point of Contact: Name: Ana Phone: Chief complaint: CHEST PAIN Primary Diagnosis: Disposition Discharged Date of discharge: November Discharge to Comment: ER Only /alba/ SEGUNDO MALDONADO Signed: 01/27/2024 13:32 Receipt Acknowledged By: 01/28/2024 12:57 /es/ POLLY CLIFFORD D.O. PHYSICIAN 01/28/2024 16:02 /es/ TIARA DANIELS RN REGISTERED NURSE 01/27/2024 15:46 /es/ TEJA PETTY Registered Nurse Traffic Coordinator MCFARLANESEGUNDO WENHAM
--- OUTSIDE RECORDS SUMMARY | 2024-07-07 09:45 | XMS_ITS | Encounter Summary ---
Author Name [facility] [place] Address [address] [place] [address] Care Team Providers Care Dispersion Mixer Name Role Phone POLLY CLIFFORD Primary Care [...] Cherry's Name Patient's Relationship to Policy Cherry [facility] (WNR) MEDICARE ADVANTAGE [facility] (WNR) Jul 19, 2023 [id number] Rayne JACOBO PATIENT CAR[facility]ARK PRESCRIPT ION [id number] 1 Jul 19, 2017 [id number] [phone] Rayne JACOBO PATIENT [facility] PRESCRIPT ION [id number] 1 Jul 19, 2017 [id number] Rayne JACOBO PATIENT MEDICARE (WNR) MEDICARE (M) PART A Sep 16, 2005 PART A [id number] Rayne JACOBO PATIENT MEDICARE (WNR) MEDICARE () PART B Sep 16, 2005 PART B [id number] AVELINARENDY SRSUKI PATIENT MEDICARE (WNR) MEDICARE () PART A Sep 16, 2005 PART A AVELINARENDY SRSUKI PATIENT MEDICARE (WNR) MEDICARE () PART B Sep 16, 2005 PART B [id number] [phone] AVELINARENDY SRSUKI PATIENT MEDICARE (WNR) MEDICARE () PART A Sep 16, 2005 PART A [id number] AVELINARENDY SRSUKI PATIENT MEDICARE (WNR) MEDICARE () PART B Sep 16, 2005 PART B [id number] AVELINARSUKI SCHUMACHER SR PATIENT OPTUM RX PRESCRIPT ION RX Jul 19, 2022 THPRX [id number] [phone] Rayne JACOBO PATIENT OPTUM RX PRESCRIPT ION RX Jul 19, 2022 THPRX [id number] Rayne JACOBO PATIENT OPTUM RX PRESCRIPT ION RX Jul 19, 2022 THPRX [id number] Rayne JACOBO PATIENT [facility] Jul 19, 2017 [id number] Rayne JACOBO SHELLEY PATIENT [facility] Jul 19, 2017 [facility] [id number] YULIRayne GARCIA PATIENT [facility] KARIN Moya Jul 19, 2017 [id number] YULISTEPHANIEENDYRayne PATIENT [facility] CE ORGANIZ US FAMIL Y Jul 21, 2013 (R) [id number] Rayne JACOBO SHELLEY PATIENT [facility] GRADY MCCARTHY RE(WN R) Jul 19, 2017 (WNR) [id number] Rayne JACOBOMAGGIE PATIENT Selected Encounter This section includes the information on record at [place] for the Encounter. Date/Time Encounter Type Encounter Description Reason Pro vider Source Feb 08, 2024 08:35 AM Outpatient Encounter ADMIN PAT ACTIVTIES (MASNONCT) IHE Encounter Template Text not used by [place] Plan of Treatment: Future Appointments (+ 6 months) and Future Tests (+/- 45 days) The Plan of Treatment section includes future care activities for the patient from all [place] treatmentfacilities. This section includes future appointments and future orders which are active, pending or scheduled. Future Appointments This section includes appointments that were scheduled to occur 6 months from the date of the Encounter, up to a maximum of 20 appointments. The data comes from all [place] treatment facilities. Appointment Date/Time Appointment Type Appointme nt Facility Name Feb 10, 2024 08:30 AM [facility] Jul 10, 2024 08:30 AM [facility] Social History: Smoking Status (Most current) and Tobacco Use (All prior to encounter date) This section includes the most current, and the historical, smoking and tobacco- related health factors from the [place] facility where the Encounter took place. Current Smoking Status This section includes the most current smoking, or tobacco-related health factor, from the [place] facility where the Encounter took place. Date/Time Current Smoking Status Comment Facil ity Oct 29, 2023 06:12 PM VA-TOBACCO FORMER USER [facility] Tobacco Use History This section includes a history of the smoking, or tobacco-related health factors, that were collected on or before the date of the Encounter. The data comes from the [place] facility where the Encounter took place. Date/Time Smoking Status/Tobacco Use Comment F acility Oct 29, 2023 06:12 PM [place] QU[place] 15 YRS OR MORE [place] [facility] [place] [facility] Aug 23, 2019 09:07 AM VA-TOBACCO FORMER USER [place] [facility] [place] [facility] Aug 23, 2019 09:07 AM [place] QUIT 15 YRS OR [facility] Jun 28, 2018 10:50 AM VA-TOBACCO FORMER USER [place] [facility] [place] [facility] Jun 28, 2018 10:50 AM [place]-TOBACCO QUIT 15 YRS OR MORE [place] [facility] [place] [facility] Oct 14, 2017 09:20 AM QUIT TOBACCO USE > 7 YEARS AGO [place] [facility] [place] [facility] Oct 05, 2016 01:02 PM QUIT TOBACCO USE > 7 YEARS AGO [facility] Advance Directives: All historical and current Section Date Range: From patient's date of to the date document was created. This section includes ALL of a patient's completed or amended [place] Advance and Rescinded Directives. The entries below indicate that a directive exists for the patient, but an actual copy is not included with this document. The data comes from all [place] facilities. Date Advance Directives Provider Source Nov 16, 2023 ADVANCE DIRECTIVE MARC METZGER [facility] Encounter Notes: All associated encounter notes This section contains the clinical notes associated to the Encounter. Date/Time Encounter Note(s) Provider Source Feb 09, 2024 08:01 AM ADDENDUM: LOCAL TITLE: Addendum STANDARD TITLE: ADDENDUM DATE OF NOTE: FEB 09, 2024@08:01:20 ENTRY DATE: FEB 09, 2024@08:01:21 AUTHOR: ROXANN KNUTSON EXP COSIGNER: URGENCY: STATUS: COMPLETED Called and LVM for calls back.When calls back specilty call center [facility] please offer February 09 at 8:[address] Decker. /alba/ ROXANN KNUTSON ADVANCED SENIOR INTERIOR DESIGNER Signed: 02/09/2024 08:02 Receipt Acknowledged By: 02/09/2024 08:04 /alba/ Ronnie Marmolejo OD CHIEF OF OPTOMETRY === --- Original Document --- 02/08/24 CCC: SCHEDULING ADMINISTRATION: Patient Demographics Patient Name: LEONARDO JACOBO Patient Primary Phone: [phone] Patient Primary Address: [address] [place] [id number] Patient : 1940 Patient Age: 83 Caller/Recipient Relation to Patient: Self Administrative Administrative Note Reason: Other Administrative Note Comments: Vet spoke to [facility] machine strap buckler on 02/04/24 and Vet is inquiring of status update. Vet said he has not heard back from anyone yet. CC inform Vet of document note 02/04/24 administrative that pact team is going to forward to iron worker. Vet is requesting to speak with pact team to discuss the time frame of when forward symptoms to optometry and plan of care moving forward. Please call Vet to advise /alba/ LARY LEAL Signed: 02/08/2024 08:35 Receipt Acknowledged By: 02/08/2024 13:23 /es/ MARC METZGER LPN License Practical Nurse * AWAITING SIGNATURE * TIARA DANIELS 02/08/2024 ADDENDUM STATUS: COMPLETED spoke with . The reports stopping the use of carboxymethylcellulose eye drops and switching to saline as advised by the provider. although they feel better, still reports some pain/discomfort . Additionally he reports progressively worst vision since his last apt in August and requests to hear and to be seen by optometry sooner than his scheduled apt in March. /alba/ MARC METZGER LPN License Practical Nurse Signed: 02/08/2024 13:35 Receipt Acknowledged By: * AWAITING SIGNATURE * MELISSA DOS SANTOS 02/09/2024 08:04 /es/ Ronnie Marmolejo OD CHIEF OF OPTOMETRY 02/08/2024 ADDENDUM STATUS: COMPLETED Please offer overbook for this February 09 at 8:[address] Decker. /es/ Ronnie Marmolejo OD CHIEF OF OPTOMETRY Signed: 02/08/2024 16:44 Receipt Acknowledged By: * AWAITING SIGNATURE * ADE VILLALPANDO 02/09/2024 08:00 /alba/ ROXANN KNUTSON ADVANCED SENIOR INTERIOR DESIGNER ROXANN KNUTSON [place] [facility] [place] [facility] Feb 08, 2024 04:44 PM ADDENDUM: LOCAL TITLE: Addendum STANDARD TITLE: ADDENDUM DATE OF NOTE: FEB 08, 2024@16:44:21 ENTRY DATE: FEB 08, 2024@16:44:22 AUTHOR: RONNIE MARMOLEJOIGNER: URGENCY: STATUS: COMPLETED Please offer overbook for this February 09 at 8:[address] Decker. /es/ Ronnie Marmolejo OD CHIEF OF OPTOMETRY Signed: 02/08/2024 16:44 Receipt Acknowledged By: 02/09/2024 08:06 /es/ ADE VILLALPANDO ADVANCED SENIOR INTERIOR DESIGNER 02/09/2024 08:00 /es/ ROXANN KNUTSON ADVANCED SENIOR INTERIOR DESIGNER === --- Original Document --- 02/08/24 CCC: SCHEDULING ADMINISTRATION: Patient Demographics Patient Name: LEONARDO JACOBO Patient Primary Phone: [phone] Patient Primary Address: [address] [place] [address] Patient : 1940 Patient Age: 83 Caller/Recipient Relation to Patient: Self Administrative Administrative Note Reason: Other Administrative Note Comments: Vet spoke to [facility] machine strap buckler on 02/04/24 and Vet is inquiring of status update. Vet said he has not heard back from anyone yet. CC inform Vet of document note 02/04/24 administrative that pact team is going to forward to iron worker. Vet is requesting to speak with pact team to discuss the time frame of when forward symptoms to optometry and plan of care moving forward. Please call Vet to advise /es/ LARY LEAL Signed: 02/08/2024 08:35 Receipt Acknowledged By: 02/08/2024 13:23 /es/ MARC METZGER LPN License Practical Nurse * AWAITING SIGNATURE * TIARA DANIELS 02/08/2024 ADDENDUM STATUS: COMPLETED spoke with . The reports stopping the use of carboxymethylcellulose eye drops and switching to saline as advised by the provider. although they feel better, still reports some pain/discomfort . Additionally he reports progressively worst vision since his last apt in August and requests to hear and to be seen by optometry sooner than his scheduled apt in March. /alba/ MARC METZGER LPN License Practical Nurse Signed: 02/08/2024 13:35 Receipt Acknowledged By: * AWAITING SIGNATURE * MELISSA DOS SANTOS 02/09/2024 08:04 /es/ Ronnie Marmolejo OD CHIEF OF OPTOMETRY 02/09/2024 ADDENDUM STATUS: COMPLETED Called and LVM for calls back.When calls back specilty call center [facility] please offer February 09 at 8:[address] Decker. /es/ ROXANN KNUTSON ADVANCED SENIOR INTERIOR DESIGNER Signed: 02/09/2024 08:02 Receipt Acknowledged By: 02/09/2024 08:04 /alba/ Ronnie Marmolejo OD CHIEF OF OPTOMETRY RONNIE MARMOLEJO [place] [facility] [place] [facility] Feb 08, 2024 01:23 PM ADDENDUM: LOCAL TITLE: Addendum STANDARD TITLE: ADDENDUM DATE OF NOTE: FEB 08, 2024@13:23:09 ENTRY DATE: FEB 08, 2024@13:23:10 AUTHOR: MARC METZGER EXP COSIGNER: URGENCY: STATUS: COMPLETED spoke with . The reports stopping the use of carboxymethylcellulose eye drops and switching to saline as advised by the provider. although they feel better, still reports some pain/discomfort . Additionally he reports progressively worst vision since his last apt in August and requests to hear and to be seen by optometry sooner than his scheduled apt in March. /alba/ MARC METZGER LPN License Practical Nurse Signed: 02/08/2024 13:35 Receipt Acknowledged By: 02/09/2024 08:38 /alba/ MELISSA DOS SANTOS OPTOMETRY TECH 02/09/2024 08:04 /alba/ Ronnie Marmolejo OD CHIEF OF OPTOMETRY === --- Original Document --- 02/08/24 [facility]: SCHEDULING ADMINISTRATION: Patient Demographics Patient Name: LEONARDO JACOBO Patient Primary Phone: [phone] Patient Primary Address: [address] [place] [id number] Patient : 1940 Patient Age: 83 Caller/Recipient Relation to Patient: Self Administrative Administrative Note Reason: Other Administrative Note Comments: Vet spoke to [facility] machine strap buckler on 02/04/24 and Vet is inquiring of status update. Vet said he has not heard back from anyone yet. CC inform Vet of document note 02/04/24 administrative that pact team is going to forward to iron worker. Vet is requesting to speak with pact team to discuss the time frame of when forward symptoms to optometry and plan of care moving forward. Please call Vet to advise /alba/ LARY LEAL Signed: 02/08/2024 08:35 Receipt Acknowledged By: 02/08/2024 13:23 /es/ MARC METZGER LPN License Practical Nurse * AWAITING SIGNATURE * TIARA DANIELS 02/08/2024 ADDENDUM STATUS: COMPLETED Please offer overbook for this February 09 at 8:[address] Decker. /alba/ Ronnie Marmolejo OD CHIEF OF OPTOMETRY Signed: 02/08/2024 16:44 Receipt Acknowledged By: 02/09/2024 08:06 /es/ ADE VILLALPANDO ADVANCED SENIOR INTERIOR DESIGNER 02/09/2024 08:00 /alba/ ROXANN KNUTSON ADVANCED SENIOR INTERIOR DESIGNER 02/09/2024 ADDENDUM STATUS: COMPLETED Called and LVM for calls back.When [facility] back [facility] please offer February 09 at 8:[address] Decker. /alba/ ROXANN KNUTSON ADVANCED SENIOR INTERIOR DESIGNER Signed: 02/09/2024 08:02 Receipt Acknowledged By: 02/09/2024 08:04 /alba/ Ronnie Marmolejo OD CHIEF OF OPTOMETRY 02/09/2024 ADDENDUM STATUS: COMPLETED Patient schedualed to see on 02/09. /alba/ ROXANN KNUTSON ADVANCED SENIOR INTERIOR DESIGNER Signed: 02/09/2024 08:31 MARC METZGER [facility] [place] [facility] Feb 08, 2024 08:35 AM ADMINISTRATIVE NOT E: LOCAL TITLE: [facility]: SCHEDULING ADMINISTRATION STANDARD TITLE: ADMINISTRATIVE NOTE DATE OF NOTE: FEB 08, 2024@08:35:30 ENTRY DATE: FEB 08, 2024@08:35:31 AUTHOR: LARY LEAL COSIGNER: URGENCY: STATUS: COMPLETED CCC: SCHEDULING ADMINISTRATION Has ADDENDA Patient Demographics Patient Name: LEONARDO JACOBO Patient Primary Phone: [phone] Patient Primary Address: [address] [place] [address] Patient : 1940 Patient Age: 83 Caller/Recipient Relation to Patient: Self Administrative Administrative Note Reason: Other Administrative Note Comments: Vet spoke to [facility] machine strap buckler on 02/04/24 and Vet is inquiring of status update. Vet said he has not heard back from anyone yet. CC inform Vet of document note 02/04/24 administrative that pact team is going to forward to iron worker. Vet is requesting to speak with pact team to discuss the time frame of when forward symptoms to optometry and plan of care moving forward. Please call Vet to advise /alba/ LARY LEAL Signed: 02/08/2024 08:35 Receipt Acknowledged By: 02/08/2024 13:23 /alba/ MARC METZGER LPN License Practical Nurse 02/09/2024 10:06 /es/ TIARA DANIELS, RN REGISTERED NURSE 02/08/2024 ADDENDUM STATUS: COMPLETED spoke with . The reports stopping the use of carboxymethylcellulose eye drops and switching to saline as advised by the provider. although they feel better, still reports some pain/discomfort . Additionally he reports progressively worst vision since his last apt in August and requests to hear and to be seen by optometry sooner than his scheduled apt in March. /alba/ MARC METZGER LPN License Practical Nurse Signed: 02/08/2024 13:35 Receipt Acknowledged By: 02/09/2024 08:38 /es/ MELISSA DOS SANTOS OPTOMETRY TECH 02/09/2024 08:04 /alba/ Ronnie Marmolejo OD CHIEF OF OPTOMETRY 02/08/2024 ADDENDUM STATUS: COMPLETED Please offer overbook for this February 09 at 8:[address] Decker. /alba/ Ronnie Marmolejo OD CHIEF OF OPTOMETRY Signed: 02/08/2024 16:44 Receipt Acknowledged By: 02/09/2024 08:06 /alba/ ADE VILLALPANDO ADVANCED SENIOR INTERIOR DESIGNER 02/09/2024 08:00 /alba/ ROXANN KNUTSON ADVANCED SENIOR INTERIOR DESIGNER 02/09/2024 ADDENDUM STATUS: COMPLETED Called and LVM for calls back.When calls back specilty call center [facility] please offer February 09 at 8:[address] Decker. /alba/ ROXANN KNUTSON ADVANCED SENIOR INTERIOR DESIGNER Signed: 02/09/2024 08:02 Receipt Acknowledged By: 02/09/2024 08:04 /alba/ Ronnie Marmolejo OD CHIEF OF OPTOMETRY 02/09/2024 ADDENDUM STATUS: COMPLETED Patient schedualed to see on 02/09. /alba/ ROXANN KNUTSON ADVANCED SENIOR INTERIOR DESIGNER Signed: 02/09/2024 08:31 [facility]ARY LEAL [place] [facility]
--- OUTSIDE RECORDS SUMMARY | 2024-07-07 09:45 | XMS_ITS | Encounter Summary ---
Author Name [facility] [place] Address [address] [place] [address] Care Team Providers Care Nuclear Spectroscopist Name Role Phone POLLY CLIFFORD Primary Care [...] Cherry's Name Patient's Relationship to Policy Cherry [facility] (WNR) MEDICARE ADVANTAGE [facility] (WNR) Jul 19, 2023 [id number] Rayne JACOBO PATIENT [facility] PRESCRIPT ION [id number] 1 Jul 19, 2017 [id number] [phone] Rayne JACOBO PATIENT [facility] PRESCRIPT ION [id number] 1 Jul 19, 2017 [id number] Rayne JACOBO PATIENT MEDICARE (WNR) MEDICARE (M) PART A Sep 16, 2005 PART A [id number] Rayne JACOBO PATIENT MEDICARE (WNR) MEDICARE () PART B Sep 16, 2005 PART B [id number] [phone] [id number] AVELINARENDY SRSUKI PATIENT MEDICARE (WNR) MEDICARE () PART A Sep 16, 2005 PART A [id number] AVELINARENDY SRSUKI PATIENT MEDICARE (WNR) MEDICARE () PART B Sep 16, 2005 PART B [id number] AVELINARENDY SRSUKI PATIENT MEDICARE (WNR) MEDICARE () PART A Sep 16, 2005 PART A [id number] AVELINARENDY SRSUKI PATIENT MEDICARE (WNR) MEDICARE () PART B Sep 16, 2005 PART B [id number] [phone] AVELINARSUKI SCHUMACHER SR PATIENT OPTUM RX PRESCRIPT ION RX Jul 19, 2022 THPRX [id number] [phone] Rayne JACOBO PATIENT OPTUM RX PRESCRIPT ION RX Jul 19, 2022 THPRX [id number] Rayne JACOBO PATIENT OPTUM RX PRESCRIPT ION RX Jul 19, 2022 THPRX [id number] Rayne JACOBO PATIENT [facility] Jul 19, 2017 [id number] Rayne JACOBO SHELLEY PATIENT [facility] Jul 19, 2017 [facility] [id number] [phone] YULIRayne GARCIA PATIENT [facility] KARIN Moya Jul 19, 2017 [id number] YULISTEPHANIEENDYRayne PATIENT [facility] CE ORGANIZ US FAMIL Y Jul 21, 2013 (R) [id number] Rayne JACOBO SHELLEY PATIENT [facility] RE(WN R) Jul 19, 2017 (WNR) [id number] Rayne JACOBOMAGGIE PATIENT Selected Encounter This section includes the information on record at [place] for the Encounter. Date/Time Encounter Type Encounter Description Reason Pro vider Source December 06, 2023 01:21 PM Outpatient Encounter ADMIN PAT ACTIVTIES (MASNONCT) IHE Encounter Template Text not used by [place] Plan of Treatment: Future Appointments (+ 6 months) and Future Tests (+/- 45 days) The Plan of Treatment section includes future care activities for the patient from all [place] [facility]. This section includes future appointments and future orders which are active, pending or scheduled. Future Appointments This section includes appointments that were scheduled to occur 6 months from the date of the Encounter, up to a maximum of 20 appointments. The data comes from all [facility]. Appointment Date/Time Appointment Type Appointme nt Facility Name Dec 27, 2023 01:00 PM AMBULATORY - REHAB MEDICIN E [facility] Dec 31, 2023 10:30 AM AMBULATORY - MEDICINE [facility] Feb 10, 2024 08:30 AM AMBULATORY - MEDICINE [facility] Active, Pending, and Scheduled Orders This section includes a listing of several types of active, pending, and scheduled orders, including clinic medications orders, diagnostic test orders, procedure orders and consult orders; where the start date of the order is 45 days before the date of the Encounter or 45 days after the date of theEncounter. The data comes from all [facility]. Test Date/Time Test Type Test Details Facility Name Nov 05, 2023 12:00 AM Laboratory - Chemi stry Order BASIC METABOLIC PANEL (non-fasting) BLOOD (SST-SERUM) [facility] Nov 05, 2023 12:00 AM Laboratory - Chemi stry Order CBC BLOOD (LAV-BLOOD) [facility] Nov 05, 2023 12:00 AM Laboratory - Chemi stry Order LIPID PANEL, NON FASTING BLOOD (SST-SERUM) [facility] Nov 05, 2023 12:00 AM Laboratory - Chemi stry Order LIVER FUNCTION BLOOD (SST-SERUM) SP [facility] Social History: Smoking Status (Most current) [...] 29, 2023 06:12 PM VA-TOBACCO FORMER USER [facility] Tobacco Use History This section includes a history of the smoking, or tobacco-related health factors, that were collected on or before the date of the Encounter. The data comes from the [place] facility where the Encounter took place. Date/Time Smoking Status/Tobacco Use Comment F acility Oct 29, 2023 06:12 PM VA-TOBACCO QUIT 15 YRS OR MORE [facility] Aug 23, 2019 09:07 AM VA-TOBACCO FORMER USER [facility] Aug 23, 2019 09:07 AM VA-TOBACCO QUIT 15 YRS OR MORE [facility] Jun 28, 2018 10:50 AM VA-TOBACCO FORMER USER [facility] Jun 28, 2018 10:50 AM [place]-TOBACCO QUIT 15 YRS OR MORE [facility] Oct 14, 2017 09:20 AM QUIT TOBACCO USE > 7 YEARS AGO [facility] Oct 05, 2016 01:02 PM QUIT TOBACCO USE > 7 YEARS AGO [facility] Advance Directives: All historical and current Section Date Range: From patient's date of to the date document was created. This section includes ALL of a patient's completed or amended [place] Advance and Rescinded Directives. The entries below indicate that a directive exists for the patient, but an actual copy is not included with this document. The data comes from all [facility]. Date Advance Directives Provider Source Nov 16, 2023 ADVANCE DIRECTIVE MARC METZGER [facility] Encounter Notes: All associated encounter notes This section contains the clinical notes associated to the Encounter. Date/Time Encounter Note(s) Provider Source December 06, 2023 01:22 PM ADMINISTRATIVE NOT E: LOCAL TITLE: CCC: SCHEDULING ADMINISTRATION STANDARD TITLE: ADMINISTRATIVE NOTE DATE OF NOTE: DECEMBER 06, 2023@13:22:04 ENTRY DATE: DECEMBER 06, 2023@13:22:04 AUTHOR: RITIKA LANDIN COSIGNER: URGENCY: STATUS: COMPLETED CCC: SCHEDULING ADMINISTRATION Has ADDENDA Patient Demographics Patient Name: LEONARDO JACOBO Patient Primary Phone: [phone] Patient Primary Address: [address] [place] [id number] Patient : 1940 Patient Age: 83 Caller/Recipient Relation to Patient: Self Administrative Administrative Note Reason: Other Administrative Note Comments: [place] requesting a call back in regards to his benefits. Would like to know if Dental is covered. Call back to discuss. /alba/ RITIKA LANDIN [facility] Signed: 12/06/2023 13:22 Receipt Acknowledged By: 12/07/2023 13:28 /alba/ MARC METZGER LPN License Practical Nurse 12/06/2023 15:09 /alba/ TIARA DANIELS, JEOVANNY REGISTERED NURSE 12/06/2023 ADDENDUM STATUS: COMPLETED Attempted to call directly. left with direct phone number for call back. Generic , therefore, no personal information was left on machine in compliance with HIPAA. For return call, dental would not be covered for this as he is not service connected. /alba/ TIARA DANIELS, RN REGISTERED NURSE Signed: 12/06/2023 15:11 RITIKA LANDIN [facility]
--- OUTSIDE RECORDS SUMMARY | 2024-07-07 09:45 | XMS_ITS ---
Author Name [place] Address [address] [place] [address] Care Team Providers Care Bushwalking Guide Name Role Phone POLLY CLIFFORD Primary Care [...] Name Patient's Relationship to Policy Cherry [facility] (WNR) MEDICARE ADVANTAGE [facility] (R) Jul 19, 2023 [id number] Rayne JACOBO PATIENT [facility] PRESCRIPT ION [id number] 1 Jul 19, 2017 [id number] Rayne JACOBO PATIENT [facility] PRESCRIPT ION [id number] 1 Jul 19, 2017 [id number] Rayne JACOBO PATIENT MEDICARE (WNR) MEDICARE (M) PART A Sep 16, 2005 PART A [id number] Rayne JACOBO PATIENT MEDICARE (WNR) MEDICARE () PART B Sep 16, 2005 PART B [id number] AVELINARENDY SRSUKI PATIENT MEDICARE (WNR) MEDICARE () PART A Sep 16, 2005 PART A YULIEHRLE SRSUKI PATIENT MEDICARE (WNR) MEDICARE (M) PART B Sep 16, 2005 PART B [id number] [phone] YULIEHRENDY SRSUKI PATIENT MEDICARE (WNR) MEDICARE (M) PART A Sep 16, 2005 PART A [id number] [phone] YULIEHRENDY SRSUKI PATIENT MEDICARE (WNR) MEDICARE () PART B Sep 16, 2005 PART B [id number] AVELINARENDY SRSUKI PATIENT OPTUM RX PRESCRIPT ION RX Jul 19, 2022 THPRX [id number] [phone] Rayne JACOBO PATIENT OPTUM RX PRESCRIPT ION RX Jul 19, 2022 THPRX [id number] [phone] Rayne JACOBO PATIENT OPTUM RX PRESCRIPT ION RX Jul 19, 2022 THPRX [id number] Rayne JACOBO PATIENT [facility] Jul 19, 2017 [id number] AVELINASiddharthaRayne SCHUMACHER PATIENT [facility] Jul 19, 2017 [facility] [id number] Rayne JACOBO PATIENT [facility] T[facility] REYNA E Jul 19, 2017 [id number] Rayne JACOBO PATIENT [facility] CE ORGANIZ US FAMIL Y Jul 21, 2013 (WNR) [id number] DONNELLRayne SHELLEY PATIENT [facility] (WNR) TRICA RE(WN R) Jul 19, 2017 (WNR) [id number] DONNELLRayne ROSA PATIENT Selected Encounter This section includes the information on record at [place] for the Encounter. Date/Time Encounter Type Encounter Description Reason Pro vider Source December 15, 2023 03:34 PM Outpatient Encounter TELEPHONE TRIAGE IHE Encounter Template Text not used by [place] Plan of Treatment: Future Appointments (+ 6 months) and Future Tests (+/- 45 days) The Plan of Treatment section includes future care activities for the patient from all [place] [facility] This section includes future appointments and future orders which are active, pending or scheduled. Future Appointments This section includes appointments that were scheduled to occur 6 months from the date of the Encounter, up to a maximum of 20 appointments. The data comes from all [facility] facilities. Appointment Date/Time Appointment Type Appointme nt Facility Name Dec 27, 2023 01:00 PM AMBULATORY - REHAB MEDICIN E [facility] Dec 31, 2023 10:30 AM AMBULATORY - MEDICINE [facility] Feb 10, 2024 08:30 AM AMBULATORY - MEDICINE [facility] Active, Pending, and Scheduled Orders This section includes a listing of several types of active, pending, and scheduled orders, including clinic medications orders, diagnostic test orders, procedure orders and consult orders; where the start date of the order is 45 days before the date of the Encounter or 45 days after the date of theEncounter. The data comes from all [facility]. Test Date/Time Test Type Test Details [...] Chemi stry Order LIVER FUNCTION BLOOD (SST-SERUM) [facility] Social History: Smoking Status (Most current) and Tobacco Use (All prior to encounter date) This section includes the most current, and the historical, smoking and tobacco- related health factors from the [place] facility where the Encounter took place. Current Smoking Status This section includes the most current smoking, or tobacco-related health factor, from the [place] facility where the Encounter took place. Date/Time Current Smoking Status Comment Facil ity Oct 29, 2023 06:12 PM VA-TOBACCO FORMER USER [facility] Tobacco Use History This section includes a history of the smoking, or tobacco-related health factors, that were collected on or before the date of the Encounter. The data comes from the [place] facility where the Encounter took place. Date/Time Smoking Status/Tobacco Use Comment F accecile Oct 29, 2023 06:12 PM VA-TOBACCO QUIT 15 YRS OR MORE [facility] Aug 23, 2019 09:07 AM VA-TOBACCO [facility] Aug 23, 2019 09:07 AM [place]-TOBACCO QUIT 15 YRS OR MORE [facility] Jun 28, 2018 10:50 AM [facility] Jun 28, 2018 10:50 AM [place]-TOBACCO QUIT 15 YRS OR MORE [facility] Oct 14, 2017 09:20 AM QUIT TOBACCO USE > 7 YEARS AGO [facility] Oct 05, 2016 01:02 PM QUIT TOBACCO USE > 7 YEARS AGO [facility] Advance Directives: All historical and [...] Nov 16, 2023 ADVANCE DIRECTIVE MARC METZGER [facility] Encounter Notes: All associated encounter notes This section contains the clinical notes associated to the Encounter. Date/Time Encounter Note(s) Provider Source December 15, 2023 03:49 PM ADDENDUM: LOCAL TITLE: Addendum STANDARD TITLE: ADDENDUM DATE OF NOTE: DECEMBER 15, 2023@15:49:57 ENTRY DATE: DECEMBER 15, 2023@15:49:58 AUTHOR: TIARA DANIELS EXP COSIGNER: URGENCY: STATUS: COMPLETED ALERT TO [facility] to schedule for ED follow up. going to ED today, will need follow up. MUST GO TO ED FIRST /es/ TIARA DANIELS RN REGISTERED NURSE Signed: 12/15/2023 15:50 Receipt Acknowledged By: 12/16/2023 10:48 /es/ NATALIE WONG [facility] === --- Original Document --- 12/15/23 CCC: CLINICAL TRIAGE: Patient Demographics Patient Name: LEONARDO JACOBO Patient Primary Address: [address] [place] [address] Patient Primary Phone: [phone] Patient : 1940 Patient Age: 83 Caller/Recipient Relation to Patient: Self Emergency Contact: LINDEN PARDO Triage Summary Conducted triage/discussed symptoms Pain Score: 3 Utilized the Triage Tool: Yes Chief Complaint: Constipation System WHEN: 1 Nurse's Recommendation / WHEN: 911 System WHERE: Emergency department Nurse's Recommendation / WHERE: ED Other Patient Disposition Patient/Caregiver agrees to plan of care: Yes Patient is Urgent or Emergent Nursing Plan and Disposition Referred patient to higher level of care Instructed to go to Emergency Room (ER) Advised of Financial Disclaimer: Patient advised that recommendation for care provided during the call does not constitute an approval or authorization for payment by the [place] or its staff. Patient advised to report a community ED visit to the [facility] Office of Community Care at within 72 hours. Nurse Summary Nurse Summary: [place] calling to report intermittent constipation that has been bothering him for months. He notes that if he takes OTC Bisacodyl after several days of constipation, that he will then have normal bowel movements, but the constipation comes back a short time later. reports abdominal pain of 3/10 that sometimes spikes to 6/10. He also reports intermittent chest pain that radiates up his neck. He agrees to go to ED NOW for evaluation. He would like PACT to call him to schedule an appointment for the constipation. Clinical Contact Center Codes Clinic/Location: [facility] PHONE CCC RN TXCC Triage Complete Triage Date: 12/15/2023, 03:25 PM Triage Note: Phone Triage 15 Dec 2023 19:21:44 +0000 [facility] Demographics 83 y/o Male Results CC: Constipation Software suggested: , 911 Software suggested follow-up location: Emergency department Values and Measures Duration of CC: 2 Days Positive Responses HPI: abdominal pain HPI: chest pain HPI: discomfort in the neck, jaw, shoulder or arm HPI: palpitations, with the chest pain PMH: angina Negative Responses Denies: HPI: chest pain, duration longer than 10 minutes Denies: HPI: chest pain, similar to past angina Denies: HPI: diaphoresis, with chest pain Denies: HPI: dyspnea, with chest pain Denies: HPI: nausea, with chest pain Denies: PMH: heart attack /es/ МДИТРИЙ CHAPARRO Signed: 12/15/2023 15:34 Receipt Acknowledged By: * AWAITING SIGNATURE * MARC METZGER 12/15/2023 15:49 /es/ TIARA DANIELS, RN REGISTERED NURSE 12/16/2023 ADDENDUM STATUS: UNSIGNED You may not VIEW this UNSIGNED Addendum. TIARA DANIELS [place] [facility] December 15, 2023 03:34 PM RN PROGRESS NOTE: LOCAL TITLE: CCC: CLINICAL TRIAGE STANDARD TITLE: RN PROGRESS NOTE DATE OF NOTE: DECEMBER 15, 2023@15:34:13 ENTRY DATE: DECEMBER 15, 2023@15:34:14 AUTHOR: ДМИТРИЙ CHAPARRO EXP COSIGNER: URGENCY: STATUS: COMPLETED CCC: CLINICAL TRIAGE Has ADDENDA Patient Demographics Patient Name: LEONARDO JACOBO Patient Primary Address: [address] [place] [address] Patient Primary Phone: [phone] Patient : 1940 Patient Age: 83 Caller/Recipient Relation to Patient: Self Emergency Contact: LINDEN PARDO Triage Summary Conducted triage/discussed symptoms Pain Score: 3 Utilized the Triage Tool: Yes Chief Complaint: Constipation System WHEN: Nurse's Recommendation / WHEN: System WHERE: Emergency department Nurse's Recommendation / WHERE: ED Other Patient Disposition Patient/Caregiver agrees to plan of care: Yes Patient is Urgent or Emergent Nursing Plan and Disposition Referred patient to higher level of care Instructed to go to Emergency Room (ER) Advised of Financial Disclaimer: Patient advised that recommendation for care provided during the call does not constitute an approval or authorization for payment by the [place] or its staff. Patient advised to report a community ED visit to the [facility] Office of Community Care at within 72 hours. Nurse Summary Nurse Summary: calling to report intermittent constipation that has been bothering him for months. He notes that if he takes OTC Bisacodyl after several days of constipation, that he will then have normal bowel movements, but the constipation comes back a short time later. [place] reports abdominal pain of 3/10 that sometimes spikes to 6/10. He also reports intermittent chest pain that radiates up his neck. He agrees to go to ED NOW for evaluation. He would like PACT to call him to schedule an appointment for the constipation. Clinical Contact Center Codes Clinic/Location: [facility] PHONE CCC RN TXCC Triage Complete Triage Date: 12/15/2023, 03:25 PM Triage Note: Phone Triage 15 Dec 2023 19:21:44 +0000 [facility] Demographics 83 y/o Male Results CC: Constipation Software suggested: Software suggested follow-up location: Emergency department Values and Measures Duration of CC: 2 Days Positive Responses HPI: abdominal pain HPI: chest pain HPI: discomfort in the neck, jaw, shoulder or arm HPI: palpitations, with the chest pain PMH: angina Negative Responses Denies: HPI: chest pain, duration longer than 10 minutes Denies: HPI: chest pain, similar to past angina Denies: HPI: diaphoresis, with chest pain Denies: HPI: dyspnea, with chest pain Denies: HPI: nausea, with chest pain Denies: PMH: heart attack /alba/ ДМИТРИЙ CHAPARRO Signed: 12/15/2023 15:34 Receipt Acknowledged By: 12/17/2023 10:48 /es/ MARC METZGER LPN License Practical Nurse 12/15/2023 15:49 /es/ TIARA DANIELS RN REGISTERED NURSE 12/15/2023 ADDENDUM STATUS: COMPLETED ALERT TO [facility] to schedule for ED follow up. [place] going to ED today, will need follow up. MUST GO TO ED FIRST /alba/ TIARA DANIELS RN REGISTERED NURSE Signed: 12/15/2023 15:50 Receipt Acknowledged By: 12/16/2023 10:48 /es/ NATALIE MALDONADO 12/16/2023 ADDENDUM STATUS: COMPLETED [facility] CALLED ON THE TELEPHONE AND SCHEDULED A [facility] APPT SET FOR December @ 11AM. /alba/ NATALIE MALDONADO Signed: 12/16/2023 10:52 ДМИТРИЙ CHAPARRO CNTRL [facility]
--- OUTSIDE RECORDS SUMMARY | 2024-07-07 09:45 | XMS_ITS | Encounter Summary ---
Author Name [place] Address [address] [place] [address] Care Team Providers Care Scrubbing Machine Operator Name Role Phone POLLY CLIFFORD Primary Care [...] Cherry's Name Patient's Relationship to Policy Cherry [facility] (WNR) MEDICARE ADVANTAGE [facility] (WNR) Jul 19, 2023 [id number] Rayne JACOBO PATIENT [facility] PRESCRIPT ION [id number] 1 Jul 19, 2017 [id number] Rayne JACOBO PATIENT [facility] PRESCRIPT ION [id number] 1 Jul 19, 2017 [id number] [phone] Rayne JACOBO PATIENT MEDICARE (WNR) MEDICARE (M) PART A Sep 16, 2005 PART A [id number] Rayne JACOBO PATIENT MEDICARE (WNR) MEDICARE () PART B Sep 16, 2005 PART B [id number] AVELINARENDY SRSUKI PATIENT MEDICARE (WNR) MEDICARE () PART A Sep 16, 2005 PART A [id number] AVELINARENDY SRSUKI PATIENT MEDICARE (WNR) MEDICARE () PART B Sep 16, 2005 PART B [id number] AVELINARENDY SRSUKI PATIENT MEDICARE (WNR) MEDICARE () PART A Sep 16, 2005 PART A [id number] [phone] AVELINARENDY SRSUKI PATIENT MEDICARE (WNR) MEDICARE () PART B Sep 16, 2005 PART B [id number] AVELINARSUKI SCHUMACHER SR PATIENT OPTUM RX PRESCRIPT ION RX Jul 19, 2022 THPRX [id number] [phone] Rayne JACOBO PATIENT OPTUM RX PRESCRIPT ION RX Jul 19, 2022 THPRX [id number] Rayne JACOBO PATIENT OPTUM RX PRESCRIPT ION RX Jul 19, 2022 THPRX [id number] [phone] Rayne JACOBO PATIENT [facility] Jul 19, 2017 [id number] DONNELLRayne SHELLEY PATIENT [facility] Jul 19, 2017 [facility] [id number] YULIRayne GARCIA PATIENT [facility] KARIN Moya Jul 19, 2017 [id number] YULIRayne GARCIA PATIENT [facility] CE ORGANIZ US FAMIL Y Jul 21, 2013 (R) [id number] DONNELLRayne SHELLEY PATIENT [facility] (R) ENMA MCCARTHY RE(WN R) Jul 19, 2017 (WNR) [id number] Rayne JACOBOMAGGIE PATIENT Selected Encounter This section includes the information on record at [place] for the Encounter. Date/Time Encounter Type Encounter Description Reason Provider Source Dec 31, 2023 10:30 AM OFFICE O/P EST LOW 20 MIN PRIMARY CARE/MEDICINE ICD-10-CM K59.00 Constipation, unspecified FURCOLO,POLLY IHE Encounter Template Text not used by [place] Assessments - Encounter Diagnoses This section includes the primary and secondary diagnoses documented for the Encounter. Date/Time Primary/Secondary Diagnosis Diagnosis Name Provider Source Dec 31, 2023 11:02 AM PRIMARY Constipation, unspecified FURCOLO,POLLY [facility] Plan of Treatment: Future Appointments (+ 6 months) and Future Tests (+/- 45 days) The Plan of Treatment section includes future care activities for the patient from all [place] treatmentfacilities. This section includes future appointments and future orders which are active, pending or scheduled. Future Appointments This section includes appointments that were scheduled to occur 6 months from the date of the Encounter, up to a maximum of 20 appointments. The data comes from all [place] treatment facilities. Appointment Date/Time Appointment Type Appointme nt Facility Name Feb 10, 2024 08:30 AM AMBULATORY - MEDICINE [facility] Social History: Smoking Status (Most current) and Tobacco Use (All prior to encounter date) This section includes the most current, and the historical, smoking and tobacco- related health factors from the [facility] facility where the Encounter took place. Current Smoking Status This section includes the most current smoking, or tobacco-related health factor, from the [place] facility where the Encounter took place. Date/Time Current Smoking Status Comment Facil ity Oct 29, 2023 06:12 PM [place]-TO[place]CO [facility] 15 YRS OR MORE [facility] Tobacco Use History This section includes a history of the smoking, or tobacco-related health factors, that were collected on or before the date of the Encounter. The data comes from the [place] facility where the Encounter took place. Date/Time Smoking Status/Tobacco Use Comment F acility Oct 29, 2023 06:12 PM [place]-TOBACCO QUIT 15 YRS OR [facility] Aug 23, 2019 09:07 AM VA-TOBACCO FORMER USER [place] [facility] [place] [facility] Aug 23, 2019 09:07 AM VA-TOBACCO QUIT 15 YRS OR MORE [place] [facility] [place] [facility] Jun 28, 2018 10:50 AM VA-TOBACCO FORMER USER [place] [facility] [place] [facility] Jun 28, 2018 10:50 AM VA-TOBACCO QUIT 15 YRS OR MORE [place] [facility] [place] [facility] Oct 14, 2017 09:20 AM QUIT TOBACCO USE > 7 YEARS AGO [place] [facility] [place] [facility] Oct 05, 2016 01:02 PM QUIT TOBACCO USE > 7 YEARS AGO [place] [facility] Advance Directives: All historical and current Section Date Range: From patient's date of to the date document was created. This section includes ALL of a patient's completed or amended [place] Advance and Rescinded Directives. The entries below indicate that a directive exists for the patient, but an actual copy is not included with this document. The data comes from all [place] facilities. Date Advance Directives Provider Source Nov 16, 2023 ADVANCE DIRECTIVE MARC METZGER [place] [facility] Encounter Notes: All associated encounter notes This section contains the clinical notes associated to the Encounter. Date/Time Encounter Note(s) Provider Source Dec 31, 2023 10:47 AM TELEHEALTH NOTE: LOCAL TITLE: [place] VIDEO CONNECT PRIMARY CARE STANDARD TITLE: TELEHEALTH NOTE DATE OF NOTE: DEC 31, 2023@10:47 ENTRY DATE: DEC 31, 2023@10:47:52 AUTHOR: POLLY CLIFFORD EXP COSIGNER: URGENCY: STATUS: COMPLETED [place] Video Connect (VVC) Standard Documentation VVC Clinician Resources Only: E911 (Emergency Call Relay Center): [phone] National Veterans Crisis Line - 988 then press #1. SARAH Suicide Coordinator - [phone], Ext. [phone]; Back-up Ext. [phone] [place] PoliceSARAH Leeds - [phone] Introduction: Visit is being conducted by [place] i[employer]otope Connect. [place] identified with 2 identifiers: [X] Full Name [X] Date of [ ] VA ID Card Emergency Plan: [place] confirmed and/or provided the following information in case of emergency or technology failure. PATIENT PHONE - PHONE NUMBER [CELLULAR] - Is patient phone number correct, if not, enter below: 's phone number: [address], [place] [address] Ethridge's present location and address for appointment: same Eth[place]'s emergency contact name and phone number: same [place]ridge reported that location is private and safe: Yes Informed Consent: [place] informed of the risks and benefits of Telehealth video care. has the right to refuse video services. If refuses video visit, a [id number]-[id number] visit will be scheduled. verbalized consent for this video visit: Yes [place] provided consent for any other persons present for visit: Yes If yes, who and relationship to patient: Secure visit: Visit was locked for security and privacy:Yes Vital Signs Visualized during video visit: LEONARDO JACOBO is a 83 year old WHITE MALE who is being seen today in primary care for f/u of constipation. CARE TEAM Community Primary Care Provider: Tati [place] Specialists: Community Specialists[facility] Eduardo Son 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 RELEVANT PAST MEDICAL HISTORY Active problems - Computerized Problem List is the source for the followin. Chronic obstructive pulmonary disease sees [facility] slabber light 2. Benign Prostatic Hypertrophy without Outflow Obstruction (SCT [id number]) 3. Lumbosacral radiculopathy 4. Multiple renal cysts [...] to trauma/fall 10. Atrial fibrillation xarelto. cardiology [facility]. h/o cardioversion 11. Seizure disorder nonconvulsive seizures dx [facility]. lamotrigine. Neurology Dr. Jon 12. Cerebral atrophy no h/o head injury 13. 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 constipation- has changed diet to eat more bran and fiber. takes metamucil 2 x per day as well as stool softener. has improved. will be walking more as he is helping his daughter who is recovering from TKR. FOLLOW UP f/u in 6 mo with labs VISIT TYPE:a LOW complexity visit where less than 30 minutes was spent in direct patient care, review of records and documentation. /alba/ POLLY CLIFFORD D.O. PHYSICIAN Signed: 12/31/2023 11:02 POLLY CLIFFORD CNTRL WSTR[facility]
--- OUTSIDE RECORDS SUMMARY | 2024-07-07 09:45 | XMS_ITS | Encounter Summary ---
Author Name [place] Address [address] [place] [address] Care Team Providers Care Field Coil Winder Name Role Phone POLLY CLIFFORD Primary Care [...] Cherry's Name Patient's Relationship to Policy Cherry [facility] (WNR) MEDICARE ADVANTAGE [facility] ([facility]) Jul 19, 2023 [id number] Rayne JACOBO PATIENT CAREMARK PRESCRIPT ION [id number] 1 Jul 19, 2017 [id number] Rayne JACOBO PATIENT CAREMARK PRESCRIPT ION [id number] 1 Jul 19, 2017 [id number] [phone] YULIRayne GARCIA PATIENT MEDICARE (WNR) MEDICARE (M) PART A Sep 16, 2005 PART A [id number] Rayne JACOBO PATIENT MEDICARE (WNR) MEDICARE () PART B Sep 16, 2005 PART B [id number] AVELINARENDY SRSUKI PATIENT MEDICARE (WNR) MEDICARE () PART A Sep 16, 2005 PART A YULIEHRLE SRSUKI PATIENT MEDICARE (WNR) MEDICARE (M) PART B Sep 16, 2005 PART B [id number] [phone] YULIEHRENDY SRSUKI PATIENT MEDICARE (WNR) MEDICARE (M) PART A Sep 16, 2005 PART A [id number] [phone] YULIEHRENDY SRSUKI PATIENT MEDICARE (WNR) MEDICARE () PART B Sep 16, 2005 PART B [id number] AVELINARENDY SRSUKI PATIENT OPTUM RX PRESCRIPT ION RX Jul 19, 2022 THPRX [id number] Rayne JACOBO PATIENT OPTUM RX PRESCRIPT ION RX Jul 19, 2022 THPRX [id number] Rayne JACOBO PATIENT OPTUM RX PRESCRIPT ION RX Jul 19, 2022 THPRX [id number] [phone] Rayne JACOBO PATIENT [facility] Jul 19, 2017 [id number] AVELINASiddharthaRayne SCHUMACHER PATIENT [facility] Jul 19, 2017 [facility] [id number] Rayne JACOBO [facility] Jul 19, 2017 [id number] Rayne JACOBO PATIENT [facility] CE ORGANIZ US FAMIL Y Jul 21, 2013 (WNR) [id number] DONNELLRayne SHELLEY PATIENT [facility] (WNR) TRICA RE(WN R) Jul 19, 2017 (WNR) [id number] YULIZAHRAJOSE MIGUELRayne PATIENT Selected Encounter This section includes the information on record at [place] for the Encounter. Date/Time Encounter Type Encounter Description Reason Pro vider Source Feb 04, 2024 03:50 PM Outpatient Encounter OPTOMETRY IHE Encounter Template Text not used by [place] Plan of Treatment: Future Appointments (+ 6 months) and Future Tests (+/- 45 days) The Plan of Treatment section includes future care activities for the patient from all [place] treatmentfacilities. This section includes future appointments and future orders which are active, pending or scheduled. Future Appointments This section includes appointments that were scheduled to occur 6 months from the date of the Encounter, up to a maximum of 20 appointments. The data comes from all [place] treatment facilities. Appointment Date/Time Appointment Type Appointme nt Facility Name Feb 10, 2024 08:30 AM AMBULATORY - MEDICINE [facility] [place] [facility] Jul 10, 2024 08:30 AM AMBULATORY - MEDICINE [facility] [place] [facility] Social History: Smoking Status (Most current) and Tobacco Use (All prior to encounter date) This section includes the most current, and the historical, smoking and tobacco- related health factors from the [facility] facility where the Encounter took place. Current Smoking Status This section includes the most current smoking, or tobacco-related health factor, from the [place] facility where the Encounter took place. Date/Time Current Smoking Status Comment Facil ity Oct 29, 2023 06:12 PM [facility] [place] [facility] Tobacco Use History This section includes a history of the smoking, or tobacco-related health factors, that were collected on or before the date of the Encounter. The data comes from the [place] facility where the Encounter took place. Date/Time Smoking Status/Tobacco Use Comment F acility Oct 29, 2023 06:12 PM VA-TOBACCO QUIT 15 YRS OR MORE [facility] [place] [facility] Aug 23, 2019 09:07 AM VA-TOBACCO FORMER USER [facility] [place] [facility] Aug 23, 2019 09:07 AM VA-TOBACCO QUIT 15 YRS OR MORE [facility] [place] [facility] Jun 28, 2018 10:50 AM VA-TOBACCO FORMER USER [facility] [place] [facility] Jun 28, 2018 10:50 AM VA-TOBACCO QUIT 15 YRS OR MORE [facility] [place] [facility] Oct 14, 2017 09:20 AM QUIT TOBACCO USE > 7 YEARS AGO [facility] [place] [facility] Oct 05, 2016 01:02 PM QUIT TOBACCO USE > 7 YEARS AGO [facility] Advance Directives: All historical and current Section Date Range: From patient's date of to the date document was created. This section includes ALL of a patient's completed or amended [place] Advance and Rescinded Directives. The entries below indicate that a directive exists for the patient, but an actual copy is not included with this document. The data comes from all [place] facilities. Date Advance Directives Provider Source Nov 16, 2023 ADVANCE DIRECTIVE MARC METZGER [facility] Encounter Notes: All associated encounter notes This section contains the clinical notes associated to the Encounter. Date/Time Encounter Note(s) Provider Source Feb 04, 2024 04:08 PM ADDENDUM: LOCAL TITLE: Addendum STANDARD TITLE: ADDENDUM DATE OF NOTE: FEB 04, 2024@16:08:47 ENTRY DATE: FEB 04, 2024@16:08:48 AUTHOR: CARRIE GRECO EXP COSIGNER: URGENCY: STATUS: COMPLETED will forward to Chief Compliance Officer. /alba/ CARRIE ROSELON [facility] Signed: 02/04/2024 16:09 Receipt Acknowledged By: 02/07/2024 06:53 /alba/ Ronnie Guadarrama OD CHIEF OF OPTOMETRY for VIVI Garcia TIMMY === --- Original Document --- 02/04/24 ADMINISTRATIVE NOTE: [place] leaving message on [facility] Call Center voicemail wanting to: [xx] Speak to provider (name): ??PCP vs. Chief Compliance Officer Concern: Eye drops prescribed causing burning n eyes. [] Schedule/ reschedule appointment [] Cancelling an existing appt. [] Other: Clinic: [x] Provider calling [facility] along with calling [facility] Triage and [facility] scheduling today. PCP contacted w/ recommendation that vet stop use of eye drops and use normal saline. Chief Compliance Officer has been alerted. Please refer to CCC: CLINICAL TRIAGE Note written by Marilyn Pulido AND CCC: SCHEDULING ADMINISTRATION Note written by Kay Whaley For further details At the time that this note was written, it appears that the matter has been/is being addressed by PACT team. No further action taken by [facility] except to add Opt. [employer] as signers to this note to alert them to situation /es/ TERE HUSTON PHYSICAL THERAPIST Signed: 02/04/2024 16:05 Receipt Acknowledged By: 02/04/2024 16:13 /es/ MELISSA DOS SANTOS OPTOMETRY TECH 02/04/2024 16:08 /es/ CAR[facility]E GRECO [facility] * AWAITING SIGNATURE * LEAH VALIENTE ALISHA ANN [facility] [place] [facility] Feb 04, 2024 03:51 PM ADMINISTRATIVE NOTE: LOCAL TITLE: ADMINISTRATIVE NOTE STANDARD TITLE: ADMINISTRATIVE NOTE DATE OF NOTE: FEB 04, 2024@15:51 ENTRY DATE: FEB 04, 2024@15:51:37 AUTHOR: CHI PRECIADO EXP COSIGNER: URGENCY: STATUS: COMPLETED ADMINISTRATIVE NOTE Has ADDENDA [place] leaving message on [facility] Call Center voicemail wanting to: [xx] Speak to provider (name): ??PCP vs. Chief Compliance Officer Concern: Eye drops prescribed causing burning n eyes. [] Schedule/ reschedule appointment [] Cancelling an existing appt. [] Other: Clinic: [x] Provider [place] calling [facility] center along with calling [facility] Triage and [facility] scheduling today. PCP contacted w/ recommendation that vet stop use of eye drops and use normal saline. Chief Compliance Officer has been alerted. Please refer to CCC: CLINICAL TRIAGE Note written by Marilyn Pulido AND CCC: SCHEDULING ADMINISTRATION Note written by Kay Whaley For further details At the time that this note was written, it appears that the matter has been/is being addressed by PACT team. No further action taken by [facility] except to add Opt. [employer] as signers to this note to alert them to situation /es/ TERE HUSTON PHYSICAL THERAPIST Signed: 02/04/2024 16:05 Receipt Acknowledged By: 02/04/2024 16:13 /es/ MELISSA DOS SANTOS OPTOMETRY TECH 02/04/2024 16:08 /es/ CARRIE AWAD [facility] 02/10/2024 07:35 /es/ Leah Valiente Optometry Health Product Communications Manager 02/04/2024 ADDENDUM STATUS: COMPLETED will forward to Chief Compliance Officer. /alba/ CARRIE [facility] Signed: 02/04/2024 16:09 Receipt Acknowledged By: 02/07/2024 06:53 /es/ Ronnie Guadarrama OD CHIEF OF OPTOMETRY for [facility]
--- OUTSIDE RECORDS SUMMARY | 2024-07-07 09:45 | XMS_ITS | Encounter Summary ---
Author Name Department of [place] Organization Department of [place] Address [address] [place] [address] Care Team Providers Care Research Environmental Engineer Name Role Phone POLLY CLIFFORD Primary [...] Cherry's Name Patient's Relationship to Policy Cherry [facility] (WNR) MEDICARE ADVANTAGE [facility] (WNR) Jul 19, 2023 [id number] Rayne JACOBO PATIENT CAREMARK PRESCRIPT ION [id number] 1 Jul 19, 2017 [id number] [phone] Rayne JACOBO PATIENT CAREMARK PRESCRIPT ION [id number] 1 Jul 19, 2017 [id number] [phone] Rayne JACOBO PATIENT MEDICARE (WNR) MEDICARE (M) PART A Sep 16, 2005 PART A [id number] Rayne JACOBO PATIENT MEDICARE (WNR) MEDICARE () PART B Sep 16, 2005 PART B [id number] [phone] AVELINARENDY SRSUKI PATIENT MEDICARE (WNR) MEDICARE () PART A Sep 16, 2005 PART A AVELINARENDY SRSUKI PATIENT MEDICARE (WNR) MEDICARE () PART B Sep 16, 2005 PART B [id number] AVELINARENDY SRSUKI PATIENT MEDICARE (WNR) MEDICARE () PART A Sep 16, 2005 PART A [id number] AVELINARENDY SRSUKI PATIENT MEDICARE (WNR) MEDICARE () PART B Sep 16, 2005 PART B [id number] [phone] AVELINARSUKI SCHUMACHER SR PATIENT OPTUM RX PRESCRIPT ION RX Jul 19, 2022 THPRX [id number] Rayne JACOBO PATIENT OPTUM RX PRESCRIPT ION RX Jul 19, 2022 THPRX [id number] Rayne JACOBO PATIENT OPTUM RX PRESCRIPT ION RX Jul 19, 2022 THPRX [id number] Rayne JACOBO PATIENT [facility] TON [facility] Jul 19, 2017 [id number] Rayne JACOBO SHELLEY PATIENT [facility] Jul 19, 2017 [facility] [id number] [phone] YULIRayne GARCIA PATIENT [facility] KARIN Moya Jul 19, 2017 [id number] YULISTEPHANIEENDYRayne PATIENT [facility] CE ORGANIZ US FAMIL Y Jul 21, 2013 (R) [id number] Rayne JACOBO SHELLEY PATIENT [facility] TRICA RE(WN R) Jul 19, 2017 (WNR) [id number] Rayne JACOBOMAGGIE PATIENT Selected Encounter This section includes the information on record at [place] for the Encounter. Date/Time Encounter Type Encounter Description Reason Pro vider Source Dec 25, 2023 09:19 AM Outpatient Encounter ADMIN PAT ACTIVTIES (MASNONCT) IHE Encounter Template Text not used by MD Plan of Treatment: Future Appointments (+ 6 months) and Future Tests (+/- 45 days) The Plan of Treatment section includes future care activities for the patient from [facility]. This section includes future appointments and future orders which are active, pending or scheduled. Future Appointments This section includes appointments that were scheduled to occur 6 months from the date of the Encounter, up to a maximum of 20 appointments. The data comes from all [place] treatment facilities. Appointment Date/Time Appointment Type Appointme nt Facility Name Dec 27, 2023 01:00 PM AMBULAT[facility] Dec 31, 2023 10:30 AM [facility] Feb 10, 2024 08:30 AM [facility] Social History: Smoking Status (Most current) and Tobacco Use (All prior to encounter date) This section includes the most current, and the historical, smoking and tobacco- related health factors from the [place] facility where the Encounter took place. Current Smoking Status This section includes the most current smoking, or tobacco-related health factor, from the [place] facility where the Encounter took place. Date/Time Current Smoking Status Comment Facil ity Oct 29, 2023 06:12 PM VA-TOBACCO [facility] Tobacco Use History This section includes a history of the smoking, or tobacco-related health factors, that were collected on or before the date of the Encounter. The data comes from the [place] facility where the Encounter took place. Date/Time Smoking Status/Tobacco Use Comment F accecile Oct 29, 2023 06:12 PM VA-TOBACCO QUIT [address] [facility] [place] [facility] Aug 23, 2019 09:07 AM [facility] Aug 23, 2019 09:07 AM VA-TOBACCO QUIT [address] OR [facility] Jun 28, 2018 10:50 AM VA-TOBACCO FORMER USER [facility] Jun 28, 2018 10:50 AM VA-TOBACCO QUIT 15 YRS OR MORE [facility] [place] [facility] Oct 14, 2017 09:20 AM QUIT TOBACCO USE > 7 YEARS AGO [facility] Oct 05, 2016 01:02 PM QUIT TOBACCO USE > 7 YEARS AGO [facility] Advance Directives: All historical and current Section Date Range: From patient's date of to the date document was created. This section includes ALL of a patient's completed or amended [place] Advance and Rescinded Directives. The entries below indicate that a directive exists for the patient, but an actual copy is not included with this document. The data comes from all [place] facilities. Date Advance Directives Provider Source Nov 16, 2023 ADVANCE DIRECTIVE DOMENICAMARC [facility] Encounter Notes: All associated encounter notes This section contains the clinical notes associated to the Encounter. Date/Time Encounter Note(s) Provider Source Dec 25, 2023 09:19 AM ADMINISTRATIVE NOT E: LOCAL TITLE: CCC: SCHEDULING ADMINISTRATION STANDARD TITLE: ADMINISTRATIVE NOTE DATE OF NOTE: DEC 25, 2023@09:19 ENTRY DATE: DEC 25, 2023@09:19:12 AUTHOR: TEJA MARTINEZ EXP COSIGNER: URGENCY: STATUS: COMPLETED patient demographics verified other: pt called after hours for opthamology will call back next /alba/ TEJA MARTINEZ [facility] AMSA Signed: 12/25/2023 09:21 TEJA MARTINEZ [facility]
--- OUTSIDE RECORDS SUMMARY | 2024-07-07 09:45 | XMS_ITS | Encounter Summary ---
Author Name [place] Address [address] [place] [address] Care Team Providers Care Dining Host Name Role Phone POLLY CHANDRA Primary Care [...] Policy Cherry's Name Patient's Relationship to Policy Cheryr [facility] (WNR) MEDICARE ADVANTAGE [facility] (WNR) Jul 19, 2023 [id number] Rayne JACOBO PATIENT CAREMARK PRESCRIPT ION [id number] 1 Jul 19, 2017 [id number] [phone] Rayne JACOBO PATIENT CAREMARK PRESCRIPT ION [id number] 1 Jul 19, 2017 [id number] Rayne JACOBO PATIENT MEDICARE (WNR) MEDICARE (M) PART A Sep 16, 2005 PART A [id number] Rayne JACOBO PATIENT MEDICARE (WNR) MEDICARE () PART B Sep 16, 2005 PART B [id number] AVELINARENDY SRSUKI PATIENT MEDICARE (WNR) MEDICARE () PART A Sep 16, 2005 PART A AVELINARENDY SRSUKI PATIENT MEDICARE (WNR) MEDICARE () PART B Sep 16, 2005 PART B [id number] AVELINARENDY SRSUKI PATIENT MEDICARE (WNR) MEDICARE () PART A Sep 16, 2005 PART A [id number] AVELINARENDY SRSUKI PATIENT MEDICARE (WNR) MEDICARE () PART B Sep 16, 2005 PART B [id number] [phone] AVELINARSUKI SCHUMACHER SR PATIENT OPTUM RX PRESCRIPT ION RX Jul 19, 2022 THPRX [id number] Rayne JACOBO PATIENT OPTUM RX PRESCRIPT ION RX Jul 19, 2022 THPRX [id number] Rayne JACOBO PATIENT OPTUM RX PRESCRIPT ION RX Jul 19, 2022 THPRX [id number] Rayne JACOBO PATIENT [facility] TON [facility] Jul 19, 2017 [id number] [phone] Rayne JACOBO SHELLEY PATIENT [facility] Jul 19, 2017 [facility] [id number] YULIRayne GARCIA PATIENT [facility] KARIN Moya Jul 19, 2017 [id number] YULISTEPHANIEENDYRayne PATIENT [facility] CE ORGANIZ US FAMIL Y Jul 21, 2013 (R) [id number] Rayne JACOBO SHELLEY PATIENT [facility] ([facility]) GRADY MCCARTHY RE(WN R) Jul 19, 2017 (WNR) [id number] Rayne JACOBOMAGGIE PATIENT Selected Encounter This section includes the information on record at [place] for the Encounter. Date/Time Encounter Type Encounter Description Reason Pro vider Source Feb 04, 2024 02:37 PM Outpatient Encounter ADMIN PAT ACTIVTIES (MASNONCT) [...] 10, 2024 08:30 AM [facility] Jul 10, 2024 08:30 AM AMBULATORY MEDICINE [facility] Social History: Smoking Status (Most current) [...] 29, 2023 06:12 PM VA-TOBACCO FORMER USER [facility] Tobacco Use History This section includes a history of the smoking, or tobacco-related health factors, that were collected on or before the date of the Encounter. The data comes from the [place] facility where the Encounter took place. Date/Time Smoking Status/Tobacco Use Comment F acility Oct 29, 2023 06:12 PM [place]-TOBACCO QUIT 15 YRS OR MORE [facility] [place] [facility] Aug 23, 2019 09:07 AM VA-TOBACCO [facility] Aug 23, 2019 09:07 AM [place]-TOBACCO QUIT 15 YRS OR MORE [facility] Jun 28, 2018 10:50 AM VA-TOBACCO FORMER USER [place] [facility] [place] [facility] Jun 28, 2018 10:50 AM VA-TOBACCO QUIT 15 YRS OR MORE [facility] [place] [facility] Oct 14, 2017 09:20 AM QUIT TOBACCO USE > 7 YEARS AGO [facility] [place] [facility] Oct 05, 2016 01:02 PM QUIT TOBACCO USE > [facility] Advance Directives: All historical and [...] Nov 16, 2023 ADVANCE DIRECTIVE MARC METZGER [facility] Encounter Notes: All associated encounter notes This section contains the clinical notes associated to the Encounter. Date/Time Encounter Note(s) Provider Source Feb 04, 2024 03:15 PM ADDENDUM: LOCAL TITLE: Addendum STANDARD TITLE: ADDENDUM DATE OF NOTE: FEB 04, 2024@15:15:24 ENTRY DATE: FEB 04, 2024@15:15:25 AUTHOR: TIARA DANIELS EXP COSIGNER: URGENCY: STATUS: COMPLETED Per recommendation from Dr. Chandra, advised to discontinue use of drops if they are bothering him, for right now use normal saline. Will ALERT to Optometry for follow up. ALERT TO OPTOMETRY to schedule for follow up /alba/ TIARA DANIELS RN REGISTERED NURSE Signed: 02/04/2024 15:16 Receipt Acknowledged By: 02/07/2024 06:50 /alba/ Ronnie Guadarrama OD CHIEF OF OPTOMETRY for VIVI LOWERENATO === --- Original Document --- 02/04/24 CCC: SCHEDULING ADMINISTRATION: Patient Demographics Patient Name: LEONARDO JACOBO Patient Primary Phone: [phone] Patient Primary Address: [address] [place] [address] Patient : 1940 Patient Age: 83 Caller/Recipient Relation to Patient: Self Administrative Administrative Note Reason: Other Administrative Note Comments: per triage nurse vet to be seen within 2 weeks in person pcp for reaction to eye drops that he uses for dry eyes vet states eyes are itchy. call dropped while RN tried to transfer no answer when technical writer called back /filippo RAMOS [facility] v1 amsa Signed: 02/04/2024 14:37 Receipt Acknowledged By: 02/04/2024 15:57 /alba/ MARC METZGER LPN License Practical Nurse 02/04/2024 15:15 /alba/ TIARA DANIELS RN REGISTERED NURSE [facility]ELS [facility] Feb 04, 2024 02:37 PM ADMINISTRATIVE NOT E: LOCAL TITLE: CCC: SCHEDULING ADMINISTRATION STANDARD TITLE: ADMINISTRATIVE NOTE DATE OF NOTE: FEB 04, 2024@14:37:41 ENTRY DATE: FEB 04, 2024@14:37:42 AUTHOR: ANTOINETTE RAMOS COSIGNER: URGENCY: STATUS: COMPLETED CCC: SCHEDULING ADMINISTRATION Has ADDENDA Patient Demographics Patient Name: LEONARDO JACOBO Patient Primary Phone: [phone] Patient Primary Address: [address] [place] [address] Patient : 1940 Patient Age: 83 Caller/Recipient Relation to Patient: Self Administrative Administrative Note Reason: Other Administrative Note Comments: per triage nurse vet to be seen within 2 weeks in person pcp for reaction to eye drops that he uses for dry eyes vet states eyes are itchy. call dropped while RN tried to transfer no answer when technical writer called back /filippo RAMOS [facility] v1 amsa Signed: 02/04/2024 14:37 Receipt Acknowledged By: 02/04/2024 15:57 /alba/ MARC METZGER LPN License Practical Nurse 02/04/2024 15:15 /alba/ TIARA DANIELS RN REGISTERED NURSE 02/04/2024 ADDENDUM STATUS: COMPLETED Per recommendation from Dr. Chandra, advised to discontinue use of drops if they are bothering him, for right now use normal saline. Will ALERT to Optometry for follow up. ALERT TO OPTOMETRY to schedule for follow up /es/ TIARA DANIELS, RN REGISTERED NURSE Signed: 02/04/2024 15:16 Receipt Acknowledged By: * AWAITING SIGNATURE * VIVI WARNER [facility]
--- OUTSIDE RECORDS SUMMARY | 2024-07-07 09:45 | XMS_ITS ---
Author Name [place] Address [address] [place] [address] Care Team Providers Care Environmental Maintenance Worker Name Role Phone POLLY CLIFFORD Primary Care [...] Cherry's Name Patient's Relationship to Policy Cherry [facility] (WNR) MEDICARE ADVANTAGE [facility] (R) Jul 19, 2023 [id number] Rayne JACOBO PATIENT CAREMARK PRESCRIPT ION [id number] 1 Jul 19, 2017 [id number] Rayne JACOBO PATIENT CAREMARK PRESCRIPT ION [id number] 1 Jul 19, 2017 [id number] Rayne JACOBO PATIENT MEDICARE (WNR) MEDICARE (M) PART A Sep 16, 2005 PART A [id number] Rayne JACOBO PATIENT MEDICARE (WNR) MEDICARE () PART B Sep 16, 2005 PART B [id number] AVELINARENDY SRSUKI PATIENT MEDICARE (WNR) MEDICARE () PART A Sep 16, 2005 PART A [id number] YULIEHRLE SRSUKI PATIENT MEDICARE (WNR) MEDICARE (M) PART B Sep 16, 2005 PART B [id number] YULIEHRENDY SRSUKI PATIENT MEDICARE (WNR) MEDICARE (M) PART A Sep 16, 2005 PART A [id number] YULIEHRNEDY SRSUKI PATIENT MEDICARE (WNR) MEDICARE () PART B Sep 16, 2005 PART B [id number] AVELINARENDY SRSUKI PATIENT OPTUM RX PRESCRIPT ION RX Jul 19, 2022 THPRX [id number] Rayne JACOBO PATIENT OPTUM RX PRESCRIPT ION RX Jul 19, 2022 THPRX [id number] Rayne JACOBO PATIENT OPTUM RX PRESCRIPT ION RX Jul 19, 2022 THPRX [id number] Rayne JACOBO PATIENT [facility] Jul 19, 2017 [id number] [phone] AVELINASiddharthaRayne SCHUMACHER PATIENT [facility] Jul 19, 2017 [facility] [id number] [phone] Rayne JACOBO PATIENT [facility] REYNA E Jul 19, 2017 [id number] [phone] Rayne JACOBO PATIENT [facility] CE ORGANIZ US FAMIL Y Jul 21, 2013 (WNR) [id number] DONNELLRayne SHELLEY [facility] (WNR) [facility] RE(WN R) Jul 19, 2017 (WNR) [id number] DONNELLRayne PATIENT Selected Encounter This section includes the information on record at [place] for the Encounter. Date/Time Encounter Type Encounter Description Reason Pro vider Source Feb 04, 2024 02:38 PM Outpatient Encounter TELEPHONE TRIAGE IHE Encounter Template Text not used by [place] Plan of Treatment: Future Appointments (+ 6 months) and Future Tests (+/- 45 days) The Plan of Treatment section includes future care activities for the patient from all [place] treatmentfacilities. This section includes future appointments and [...] 10, 2024 08:30 AM AMBULATORY - [facility] Jul 10, 2024 08:30 AM [facility] Social History: Smoking Status (Most [...] Facil ity Oct 29, 2023 06:12 PM [place]-TOBACCO QUIT 15 YRS OR MORE [facility] Tobacco Use History This section includes a history of the smoking, or tobacco-related health factors, that were collected on or before the date of the Encounter. The data comes from the [place] facility where the Encounter took place. Date/Time Smoking Status/Tobacco Use Comment F acility Oct 29, 2023 06:12 PM VA-TOBACCO QUIT 15 YRS OR MORE [place] [facility] [facility] Aug 23, 2019 09:07 AM VA-TOBACCO FORMER USER [place] [facility] [place] [facility] Aug 23, 2019 09:07 AM VA-TOBACCO QUIT 15 YRS OR MORE [place] [facility] [place] [facility] Jun 28, 2018 10:50 AM VA-TOBACCO [facility]ER [facility] Jun 28, 2018 10:50 AM [place]-TOBACCO QUIT 15 YRS OR MORE [facility] Oct 14, 2017 09:20 AM QUIT TOBACCO USE > 7 YEARS AGO [facility] Oct 05, 2016 01:02 PM QUIT TOBACCO USE > 7 YEARS AGO [facility] Advance Directives: All historical and current [...] Source Nov 16, 2023 ADVANCE DIRECTIVE DOMENICAMARC [facility] Encounter Notes: All associated encounter notes This section contains the clinical notes associated to the Encounter. Date/Time Encounter Note(s) Provider Source Feb 04, 2024 02:38 PM RN PROGRESS NOTE: LOCAL TITLE: CCC: CLINICAL TRIAGE STANDARD TITLE: RN PROGRESS NOTE DATE OF NOTE: FEB 04, 2024@14:38:21 ENTRY DATE: FEB 04, 2024@14:38:21 AUTHOR: SHARAD DUMONT COSIGNER: URGENCY: STATUS: COMPLETED Patient Demographics Patient Name: LEONARDO JACOBO Patient Primary Address: [address] [place] [address] Patient Primary Phone: [phone] Patient : 1940 Patient Age: 83 Call Back Number: Caller/Recipient Relation to Patient: Self Emergency Contact: LINDEN PARDO Triage Summary Conducted triage/discussed symptoms Utilized the Triage Tool: Yes Chief Complaint: Eye Irritation Or Itching System WHEN: Within 2 Weeks Nurse's Recommendation / WHEN: Within 2 Weeks System WHERE: Clinic Nurse's Recommendation / WHERE: Clinic/[facility] Patient Disposition Patient/Caregiver agrees to plan of care: Yes Nursing Plan and Disposition Other course(s) of action Generated msg to PACT/Provider Provided guidance for worsening symptoms: *Caller/Patient* advised to call facilities [place] Clinical Contact Center or seek immediate medical attention for new or worsening symptoms Nurse Summary Nurse Summary: is having difficulty when administering eye drops, CARBOXYMETHYLCELLULOSE 0.5% SOLN,OPH 0.5% INSTILL ONE DROP INTO EACH EYE FOUR TIMES A DAY. He states they are causing burning and itching when he uses them. He would like to see PCP/eye clinic. Clinical Contact Center Codes Clinic/Location: V1 CWM PHONE CCC RN TXCC Triage Complete Triage Date: 02/04/2024, 02:24 PM Triage Note: Phone Triage 04 Feb 2024 18:21:48 +0000 [facility] Demographics 83 y/o Male Results CC: Eye Irritation Or Itching Software suggested: Within 2 Weeks Software suggested follow-up location: Clinic, consider virtual care Values and Measures Duration of CC: 1 Months Positive Responses HPI: increased tearing, bilateral, duration longer than 1 week HPI: symptoms, worsening Negative Responses Denies: HPI: conjunctival swelling Denies: HPI: entropion Denies: HPI: eye discharge, exudative Denies: HPI: eye pain Denies: HPI: eye pruritus, constant Denies: HPI: eye redness Denies: HPI: eyelid drainage, exudative Denies: HPI: eyelid erythema Denies: HPI: eyelid swelling Denies: HPI: scaly skin, eyelid /es/ OTIS DUMONT Signed: 02/04/2024 14:38 Receipt Acknowledged By: 02/04/2024 15:37 /alba/ MARC METZGER LPN License Practical Nurse 02/04/2024 14:48 /es/ TIARA DANIELS, RN REGISTERED NURSE SHARAD DUMONT CO [facility]
--- OUTSIDE RECORDS SUMMARY | 2024-07-07 09:45 | XMS_ITS | Encounter Summary ---
Author Name [facility] [place] Address [address] [place] [address] Care Team Providers Care Byproducts Extractor Name Role Phone POLLY CLIFFORD Primary Care [...] Name Patient's Relationship to Policy Cherry [facility] (WNR) MEDICARE ADVANTAGE [facility] (WNR) Jul 19, 2023 [id number] Rayne JACOBO PATIENT CAREMARK PRESCRIPT ION [id number] 1 Jul 19, 2017 [id number] Rayne JACOBO PATIENT CAREMARK PRESCRIPT ION [id number] 1 Jul 19, 2017 [id number] Rayne JACOBO PATIENT MEDICARE (WNR) MEDICARE (M) PART A Sep 16, 2005 PART A [id number] [id number] Rayne JACOBO PATIENT MEDICARE (WNR) MEDICARE () PART B Sep 16, 2005 PART B [id number] [id number] AVELINARENDY SRSUKI PATIENT MEDICARE (WNR) MEDICARE () PART A Sep 16, 2005 PART A AVELINARENDY SRSUKI PATIENT MEDICARE (WNR) MEDICARE () PART B Sep 16, 2005 PART B [id number] AVELINARENDY SRSUKI PATIENT MEDICARE (WNR) MEDICARE () PART A Sep 16, 2005 PART A [id number] AVELINARENDY SRSUKI PATIENT MEDICARE (WNR) MEDICARE () PART B Sep 16, 2005 PART B [id number] [phone] AVELINARSUKI SCHUMACHER SR PATIENT OPTUM RX PRESCRIPT ION RX Jul 19, 2022 THPRX [id number] Rayne JACOBO PATIENT OPTUM RX PRESCRIPT ION RX Jul 19, 2022 THPRX [id number] Rayne JACOBO PATIENT OPTUM RX PRESCRIPT ION RX Jul 19, 2022 THPRX [id number] Rayne JACOBO PATIENT [facility] TON [facility] Jul 19, 2017 [id number] Rayne JACOBO SHELLEY PATIENT [facility] Jul 19, 2017 [facility] [id number] [phone] YULIRayne GARCIA PATIENT [facility] KARIN Moya Jul 19, 2017 [id number] YULISTEPHANIEENDYRayne PATIENT [facility] CE ORGANIZ US FAMIL Y Jul 21, 2013 (R) [id number] [phone] Rayne JACOBO SHELLEY PATIENT [facility] GRADY MCCARTHY RE(WN R) Jul 19, 2017 (WNR) [id number] Rayne JACOBOMAGGIE PATIENT Selected Encounter This section includes the information on record at [place] for the Encounter. Date/Time Encounter Type Encounter Description Reason Pro vider Source Jan 21, 2024 10:29 AM Outpatient Encounter ADMIN PAT ACTIVTIES (MASNONCT) IHE Encounter Template Text not used by [place] Plan of Treatment: Future Appointments (+ 6 [...] [place] treatment facilities. Appointment Date/Time Appointment Type Appointme nt Facility Name Feb 10, 2024 08:30 AM [facility] Jul 10, 2024 08:30 AM [facility] Social History: Smoking Status (Most current) [...] 29, 2023 06:12 PM VA-TOBACCO FOR[facility] Tobacco Use History This section includes a history of the smoking, or tobacco-related health factors, that were collected on or before the date of the Encounter. The data comes from the [place] facility where the Encounter took place. Date/Time Smoking Status/Tobacco Use Comment F acility Oct 29, 2023 06:12 PM [place]-TOBACCO QUIT 15 YRS OR MORE [place] [facility]TR [place] [facility] Aug 23, 2019 09:07 AM VA-TOBACCO FORMER USER [place] CNTR [place] [facility] Aug 23, 2019 09:07 AM [place]-TOBACCO QUIT 15 YRS OR [facility] Jun 28, 2018 10:50 AM VA-TOBACCO FORMER USER [facility] Jun 28, 2018 10:50 AM VA-TOBACCO QUIT 15 YRS OR MORE [facility] Oct 14, 2017 09:20 AM QUIT TOBACCO USE > 7 YEARS AGO [facility] Oct 05, 2016 01:02 PM QUIT TOBACCO USE > 7 YEARS AGO [facility] Advance Directives: All historical and current Section Date Range: From patient's date of to the date document was created. This section includes ALL of a patient's completed or amended [place] Advance and Rescinded Directives. The entries below indicate that a directive exists for the patient, but an actual copy is not included with this document. The data comes from all [place] facilities. Date Advance Directives Provider Source Nov 16, 2023 ADVANCE DIRECTIVE MARC METZGER [facility] Encounter Notes: All associated encounter notes This section contains the clinical notes associated to the Encounter. Date/Time Encounter Note(s) Provider Source Jan 21, 2024 11:40 AM ADDENDUM: LOCAL TITLE: Addendum STANDARD TITLE: ADDENDUM DATE OF NOTE: JAN 21, 2024@11:40:16 ENTRY DATE: JAN 21, 2024@11:40:17 AUTHOR: JOAO ZELAYA COSIGNER: URGENCY: STATUS: COMPLETED Confirmed medications with Vet: Currently receiving from VA: Carboxymethylcellulose 0.5% one drop each eye four times daily Lubricating oint thin ribbon each eye at bedtime Ketotifen 0.025% one drop twice daily for allergic conjunctivitis Non VA medications: Acetaminophen 500mg twice daily as needed Albuterol 90mcg inhaler, 2 puffs every 4 hrs. as needed Citalopram Hydrobromide 40mg daily Diltiazem 180mg daily Furosemide 20mg daily Multivitamin daily Levetiracetam 100mg twice daily Rivaroxaban 20mg daily Tamsulosin 0.4mg daily Umeclidinium/Vilanterol one inhalation daily Medications Vet is also taking not currently on listing: Atorvastatin 20mg at bedtime Nitroglycerine as needed for chest pain Metamucil fiber daily Senna 8.6mg twice daily Alert to PCP for additional non va medications not on file currently Alert to central office frame wirer: Vet requesting renewal of Ketotifen for mail deliver /es/ Joao Zelaya MSN RN CNL Primary Care RN Signed: 01/21/2024 11:53 Receipt Acknowledged By: 01/21/2024 12:31 /es/ POLLY CLIFFORD D.O. PHYSICIAN 01/21/2024 12:45 /es/ ERIC MARTIN, OD Corn Husker Machine Operator === --- Original Document --- 01/21/24 CCC: SCHEDULING ADMINISTRATION: Patient Demographics Patient Name: LEONARDO JACOBO Patient Primary Phone: [phone] Patient Primary Address: [address] [place] [address] Patient : 1940 Patient Age: 83 Call Back Number: [phone] Caller/Recipient Relation to Patient: Self Administrative Administrative Note Reason: Other Administrative Note Comments: called this morning asking for a return call so that he can go over his current medications and the current dosages that he should be taking. Please call him back at your earliest chance. He can be reached at: [phone]. Thank you. /alba/ VASQUEZ RODRIGUEZ 1 [facility] Signed: 01/21/2024 10:29 Receipt Acknowledged By: * AWAITING SIGNATURE * MARC METZGER 01/21/2024 11:53 /es/ Joao Zelaya MSN RN CNL Primary Care RN for TIARA E JOAO DESAI CNTRL [facility]N [facility] Jan 21, 2024 10:29 AM ADMINISTRATIVE NOTE: LOCAL TITLE: CCC: SCHEDULING ADMINISTRATION STANDARD TITLE: ADMINISTRATIVE NOTE DATE OF NOTE: JAN 21, 2024@10:29:10 ENTRY DATE: JAN 21, 2024@10:29:10 AUTHOR: VASQUEZ BAGLEY EXP COSIGNER: URGENCY: STATUS: COMPLETED CCC: SCHEDULING ADMINISTRATION Has ADDENDA Patient Demographics Patient Name: LEONARDO JACOBO Patient Primary Phone: [phone] Patient Primary Address: [address] [place] [address] Patient : 1940 Patient Age: 83 Call Back Number: [phone] Caller/Recipient Relation to Patient: Self Administrative Administrative Note Reason: Other Administrative Note Comments: called this morning asking for a return call so that he can go over his current medications and the current dosages that he should be taking. Please call him back at your earliest chance. He can be reached at: [phone]. Thank you. /es/ VASQUEZ RODRIGUEZ 1 [facility] Signed: 01/21/2024 10:29 Receipt Acknowledged By: 01/21/2024 14:39 /es/ MARC METZGER LPN License Practical Nurse 01/21/2024 11:53 /es/ Joao WANG RN CNL Primary Care RN for TIARA DANIELS 01/21/2024 ADDENDUM STATUS: COMPLETED Confirmed medications with Vet: Currently receiving from VA: Carboxymethylcellulose 0.5% one drop each eye four times daily Lubricating oint thin ribbon each eye at bedtime Ketotifen 0.025% one drop twice daily for allergic conjunctivitis Non VA medications: Acetaminophen 500mg twice daily as needed Albuterol 90mcg inhaler, 2 puffs every 4 hrs. as needed Citalopram Hydrobromide 40mg daily Diltiazem 180mg daily Furosemide 20mg daily Multivitamin daily Levetiracetam 100mg twice daily Rivaroxaban 20mg daily Tamsulosin 0.4mg daily Umeclidinium/Vilanterol one inhalation daily Medications Vet is also taking not currently on listing: Atorvastatin 20mg at bedtime Nitroglycerine as needed for chest pain Metamucil fiber daily Senna 8.6mg twice daily Alert to PCP for additional non va medications not on file currently Alert to central office frame wirer: Vet requesting renewal of Ketotifen for mail deliver /es/ Joao Zelaya MSN RN CNL Primary Care RN Signed: 01/21/2024 11:53 Receipt Acknowledged By: 01/21/2024 12:31 /es/ POLLY CLIFFORD D.O. PHYSICIAN 01/21/2024 12:45 /alba/ ERIC MARTIN OD Corn Husker Machine Operator VASQUEZ BAGLEY CNTRL WSTRN [facility]
--- OUTSIDE RECORDS SUMMARY | 2024-07-07 09:45 | XMS_ITS ---
Author Name [place] Address [address] [place] [address] Care Team Providers Care Operating Room Registered Nurse Name Role Phone POLLY CLIFFORD Primary Care [...] Cherry's Name Patient's Relationship to Policy Cherry [facility] (WNR) MEDICARE ADVANTAGE [facility]) Jul 19, 2023 [id number] YULIRayne GARCIA PATIENT CAREMARK PRESCRIPT ION [id number] 1 Jul 19, 2017 [id number] Rayne JACOBO PATIENT CAREMARK PRESCRIPT ION [id number] 1 Jul 19, 2017 [id number] YULIZAHRASiddharthaRayne SCHUMACHER PATIENT MEDICARE (WNR) MEDICARE (M) PART A Sep 16, 2005 PART A [id number] Rayne JACOBO PATIENT MEDICARE (WNR) MEDICARE () PART B Sep 16, 2005 PART B [id number] AVELINARENDY SRSUKI PATIENT MEDICARE (WNR) MEDICARE () PART A Sep 16, 2005 PART A [id number] AVELINARLE SRSUKI PATIENT MEDICARE (WNR) MEDICARE () PART B Sep 16, 2005 PART B [id number] [phone] YULIEHRENDY SRSUKI PATIENT MEDICARE (WNR) MEDICARE () PART A Sep 16, 2005 PART A [id number] YULIEHRENDY SRSUKI PATIENT MEDICARE (WNR) MEDICARE () PART B Sep 16, 2005 PART B [id number] AVELINARSUKI SCHUMACHER SR PATIENT OPTUM RX PRESCRIPT ION RX Jul 19, 2022 THPRX [id number] Rayne JACOBO PATIENT OPTUM RX PRESCRIPT ION RX Jul 19, 2022 THPRX [id number] [phone] Rayne JACOBO PATIENT OPTUM RX PRESCRIPT ION RX Jul 19, 2022 THPRX [id number] Rayne JACOBO PATIENT [facility] TON [facility] Jul 19, 2017 [id number] [phone] AVELINASiddharthaRayne SCHUMACHER PATIENT [facility] Jul 19, 2017 [facility] [id number] Rayne JACOBO PATIENT [facility] REYNA E Jul 19, 2017 [id number] Rayne JACOBO PATIENT [facility] CE ORGANIZ US FAMIL Y Jul 21, 2013 (WNR) [id number] DONNELLRayne SHELLEY PATIENT [facility] (R) TRICA RE(WN R) Jul 19, 2017 (WNR) [id number] DONNELLRayne ROSA PATIENT Selected Encounter This section includes the information on record at [place] for the Encounter. Date/Time Encounter Type Encounter Description Reason Pro vider Source December 03, 2023 12:51 PM Outpatient Encounter COMMUNITY CARE CONSULT IHE Encounter Template Text not used by [place] Plan of Treatment: Future Appointments (+ 6 months) and Future Tests (+/- 45 days) The Plan of Treatment section includes future care activities for the patient from all [place] treatmentf[facility]. This section includes future appointments and future orders which are active, pending or scheduled. Future Appointments This section includes appointments that were scheduled to occur 6 months from the date of the Encounter, up to a maximum of 20 appointments. The data comes from all [facility] facilities. Appointment Date/Time Appointment Type Appointme nt Facility Name Dec 27, 2023 01:00 PM AMBULATORY - REHAB MEDICIN [facility] Dec 31, 2023 10:30 AM AMBULATORY - MEDICINE [facility] Feb 10, 2024 08:30 AM AMBULATORY - MEDICINE [facility] Active, Pending, and Scheduled Orders This section includes a listing of several types of active, pending, and scheduled orders, including clinic medications orders, diagnostic test orders, procedure orders and consult orders; where the start date of the order is 45 days before the date of the Encounter or 45 days after the date of theEncounter. The data comes from all [facility]. Test Date/Time Test Type Test Details Facility Name Nov 05, 2023 12:00 AM Laboratory - Chemi stry Order BASIC METABOLIC PANEL (non-fasting) BLOOD (SST-SERUM) [facility] Nov 05, 2023 12:00 AM Laboratory - Chemi stry Order CBC BLOOD (LAV-BLOOD) [facility] Nov 05, 2023 12:00 AM Laboratory - Chemi stry Order LIPID PANEL, NON FASTING BLOOD (SST-SERUM) [facility] Nov 05, 2023 12:00 AM Laboratory - Chemi stry Order LIVER FUNCTION BLOOD (SST-SERUM) [facility] Social History: Smoking Status (Most current) and Tobacco Use (All prior to encounter date) This section includes the most current, and the historical, smoking and tobacco- related health factors from the [place] facility where the Encounter took place. Current Smoking Status This section includes the most current smoking, or tobacco-related health factor, from the [place] facility where the Encounter took place. Date/Time Current Smoking Status Comment Facil ity Oct 29, 2023 06:12 PM VA-TOBACCO FORMER USER [facility] Tobacco Use History This section includes a history of the smoking, or tobacco-related health factors, that were collected on or before the date of the Encounter. The data comes from the [place] facility where the Encounter took place. Date/Time Smoking Status/Tobacco Use Comment F acility Oct 29, 2023 06:12 PM VA-TOBACCO QUIT [address] [facility] Aug 23, 2019 09:07 AM VA-TOBACCO FOR[facility] Aug 23, 2019 09:07 AM [place]-TOBACCO QUIT 15 YRS OR MORE [facility] WSN [facility] Jun 28, 2018 10:50 AM VA-TOBACCO [facility] Jun 28, 2018 10:50 AM [place]-TOBACCO QUIT 15 YRS OR MORE [facility] Oct 14, 2017 09:20 AM QUIT TOBACCO USE > [address] [facility] Oct 05, 2016 01:02 PM QUIT TOBACCO USE > 7 YEARS AGO [facility] Advance Directives: All historical and current [...] Nov 16, 2023 ADVANCE DIRECTIVE MARC METZGER [facility] Encounter Notes: All associated encounter notes This section contains the clinical notes associated to the Encounter. Date/Time Encounter Note(s) Provider Source December 03, 2023 12:51 PM NONVA NOTE: LOCAL TITLE: [facility] SELF PRESENTING CARE COORD PLAN STANDARD TITLE: NONVA NOTE DATE OF NOTE: DECEMBER 03, 2023@12:51 ENTRY DATE: DECEMBER 03, 2023@12:51:53 AUTHOR: SEGUNDO MCFARLANE EXP COSIGNER: URGENCY: STATUS: COMPLETED Emergency Notification Intake Date Presenting to the Facility: Oct Method of Contact: Notified from ECR worklist Notification ID: [id number] [facility] Referral #: [id number] [facility] Name: Hospital: [facility] Address: City: [place] State: Zip Code: Phone : [facility] Point of Contact: Name: Ana Phone: Chief complaint: CHEST PRESSURE Primary Diagnosis: Disposition Discharged Date of discharge: Oct Discharge to Comment: ER Only /alba/ SEGUNDO MALDONADO Signed: 12/03/2023 13:10 Receipt Acknowledged By: 12/03/2023 13:21 /es/ POLLY CLIFFORD D.O. PHYSICIAN 12/15/2023 07:21 /es/ Tigist WANG,RN,CCM TRANSFER/TRAVELING COORDINATOR 12/03/2023 15:54 /es/ TIARA DANIELS, JEOVANNY REGISTERED NURSE SEGUNDO MCFARLANE NOORVIK
--- OUTSIDE RECORDS SUMMARY | 2024-07-07 09:45 | XMS_ITS | Encounter Summary ---
Author Name [place] Address [address] [place] [address] Care Team Providers Care Cage Tender Name Role Phone POLLY CLIFFORD Primary Care [...] Cherry's Name Patient's Relationship to Policy Cherry [facility] (WNR) MEDICARE ADVANTAGE [facility] (WNR) Jul 19, 2023 [id number] YULIRayne GARCIA PATIENT [facility] PRESCRIPT ION [id number] 1 Jul 19, 2017 [id number] [phone] Rayne JACOBO PATIENT [facility] PRESCRIPT ION [id number] 1 Jul 19, 2017 [id number] [phone] Rayne JACOBO PATIENT MEDICARE (WNR) MEDICARE (M) PART A Sep 16, 2005 PART A [id number] [id number] Rayne JACOBO PATIENT MEDICARE (WNR) MEDICARE () PART B Sep 16, 2005 PART B [id number] AVELINARENDY SRSUKI PATIENT MEDICARE (WNR) MEDICARE () PART A Sep 16, 2005 PART A AVELINARLE SRSUKI PATIENT MEDICARE (WNR) MEDICARE (M) PART B Sep 16, 2005 PART B [id number] AVELINARENDY SRSUKI PATIENT MEDICARE (WNR) MEDICARE (M) PART A Sep 16, 2005 PART A [id number] YULIEHRENDY SRSUKI PATIENT MEDICARE (WNR) MEDICARE (M) PART B Sep 16, 2005 PART B [id number] AVELINARSUKI SCHUMACHER SR PATIENT OPTUM RX PRESCRIPT ION RX Jul 19, 2022 THPRX [id number] Rayne JACOBO PATIENT OPTUM RX PRESCRIPT ION RX Jul 19, 2022 THPRX [id number] Rayne JACOBO PATIENT OPTUM RX PRESCRIPT ION RX Jul 19, 2022 THPRX [id number] Rayne JACOBO [facility] Jul 19, 2017 [id number] [phone] Rayne JACOBO [facility]IENT [facility] Jul 19, 2017 [facility] [id number] [phone] Rayne JACOBO PATIENT [facility] REYNA Moya Jul 19, 2017 [id number] Rayne JACOBO [facility]IENT [facility] CE ORGANIZ US FAMIL Y Jul 21, 2013 (WNR) [id number] DONNELLRayne SHELLEY PATIENT [facility] (R) TRICA RE(WN R) Jul 19, 2017 (WNR) [id number] Rayne JACOBO SHELLEY PATIENT Selected Encounter This section includes the information on record at [place] for the Encounter. Date/Time Encounter Type Encounter Description Reason Provider Source Dec 27, 2023 01:00 PM HEARING AID FITTING/CHECKIN G AUDIOLOGY ICD-10-CM Z46.1 Encounter for fitting and adjustment of hearing aid GEMMA ANN Nita Encounter Template Text not used by [place] Assessments - Encounter Diagnoses This section includes the primary and secondary diagnoses documented for the Encounter. Date/Time Primary/Secondary Diagnosis Diagnosis Name Provider Source Dec 27, 2023 01:25 PM PRIMARY Encounter for fitting and adjustment of hearing aid [facility] Dec 27, 2023 01:25 PM SECONDARY Sensorineural hearing loss, bilateral GEMMA ANN [facility] [place] [facility] Plan of Treatment: Future Appointments (+ [...] Appointment Type Appointme nt Facility Name Dec 31, 2023 10:30 AM [facility] Feb 10, 2024 08:30 AM AMBULATORY - MEDICINE [facility] Social History: Smoking Status (Most current) and Tobacco Use (All prior to encounter date) This section includes the most current, and the historical, smoking and tobacco- related health factors from the [place] facility where the Encounter took place. Current Smoking Status This section includes the most current smoking, or tobacco-related health factor, from the [place] facility where the Encounter took place. Date/Time Current Smoking Status Comment Facil ity Oct 29, 2023 06:12 PM VA-TOBACCO [facility]ER [facility] Tobacco Use History This section includes a history of the smoking, or tobacco-related health factors, that were collected on or before the date of the Encounter. The data comes from the [place] facility where the Encounter took place. Date/Time Smoking Status/Tobacco Use Comment F acility Oct 29, 2023 06:12 PM VA-TOBACCO QUIT 15 YRS OR MORE [place] [facility] [place] [facility] Aug 23, 2019 09:07 AM VA-TOBACCO [facility] Aug 23, 2019 09:07 AM VA-TOBACCO QUIT 15 YRS OR MORE [facility] Jun 28, 2018 10:50 AM VA-TOBACCO FORMER USER [place] [facility] Jun 28, 2018 10:50 AM VA-TOBACCO QUIT 15 YRS OR MORE [facility] Oct 14, 2017 09:20 AM QUIT TOBACCO USE > 7 YEARS AGO [facility] Oct 05, 2016 01:02 PM QUIT TOBACCO USE > 7 YEARS AGO [facility] Advance Directives: All historical and [...] Nov 16, 2023 ADVANCE DIRECTIVE MARC METZGER [facility] Encounter Notes: All associated encounter notes This section contains the clinical notes associated to the Encounter. Date/Time Encounter Note(s) Provider Source Dec 27, 2023 11:51 AM AUDIOLOGY E & M NO TE: [facility] TITLE: AUDIOLOGY CLINIC STANDARD TITLE: AUDIOLOGY E & M NOTE DATE OF NOTE: DEC 27, 2023@11:51 ENTRY DATE: DEC 27, 2023@11:51:51 AUTHOR: GEMMA ANN COSIGNER: URGENCY: STATUS: COMPLETED [place] has a history of bilateral sensorineural hearing loss. He was seen on 12-27-23 for hearing aid follow up regarding his Roland ITCs. He reports he has difficulty hearing TV and the left aid is not as loud as the right. Otoscopy was WNLs AU. Wax guards and kandice covers were replaced. The listening check was positive for both hearing aids. Hearing aids were connected to [employer] and overall gain was increased 1 step for the right and 2 for the left. He noted improvement. Use of a media device is recommended. Ensured that the correct device is checked off for auto start in accessories. Ordered media device, should be shipped to upon receipt. will contact the clinic as needed. /alba/ Garry SPAIN, [facility]-A STAFF PLANIMETER OPERATOR Signed: 12/27/2023 13:29 GEMMA ANN [place] [facility]
--- OUTSIDE RECORDS SUMMARY | 2024-07-07 09:45 | XMS_ITS | Encounter Summary ---
Author Name [facility] [place] Address [address] [place] [address] Care Team Providers Care E Commerce Architect Name Role Phone POLLY CLIFFORD Primary Care [...] Cherry's Name Patient's Relationship to Policy Cherry [facility] (WNR) MEDICARE ADVANTAGE [facility] (WNR) Jul 19, 2023 [id number] Rayne JACOBO PATIENT [facility] PRESCRIPT ION [id number] 1 Jul 19, 2017 [id number] Rayne JACOBO PATIENT [facility] PRESCRIPT ION [id number] 1 Jul 19, 2017 [id number] [phone] Rayne JACOBO PATIENT MEDICARE ([place]NR) MEDICARE (M) PART A Sep 16, 2005 PART A [id number] [phone] [id number] Rayne JACOBO PATIENT MEDICARE ([place]NR) MEDICARE (M) PART B Sep 16, 2005 PART B [id number] AVELINARENDY SRSUKI PATIENT MEDICARE ([place]NR) MEDICARE (M) PART A Sep 16, 2005 PART A AVELINARENDY SRSUKI PATIENT MEDICARE ([place]NR) MEDICARE (M) PART B Sep 16, 2005 PART B [id number] AVELINARENDY SRSUKI PATIENT MEDICARE ([place]NR) MEDICARE (M) PART A Sep 16, 2005 PART A [id number] AVELINARENDY SRSUKI PATIENT MEDICARE ([place]) MEDICARE (M) PART B Sep 16, 2005 PART B [id number] AVELINARSUKI SCHUMACHER SR PATIENT OPTUM RX PRESCRIPT ION RX Jul 19, 2022 THPRX [id number] Rayne JACOBO PATIENT OPTUM RX PRESCRIPT ION RX Jul 19, 2022 THPRX [id number] Rayne JACOBO PATIENT OPTUM RX PRESCRIPT ION RX Jul 19, 2022 THPRX [id number] [phone] Rayne JACOBO PATIENT [facility] Jul 19, 2017 [id number] AVELINASiddharthaRayne SCHUMACHER PATIENT [facility] Jul 19, 2017 [facility] [id number] Rayne JACOBO PATIENT [facility] KARIN Moya Jul 19, 2017 [id number] YULIRayne GARCIA PATIENT [facility] CE ORGANIZ US FAMIL Y Jul 21, 2013 (WNR) [id number] DONNELLRayne SHELLEY PATIENT [facility] (R) TRICA RE(WN R) Jul 19, 2017 (WNR) [id number] Rayne JACOBO SHELLEY PATIENT Selected Encounter This section includes the information on record at [place] for the Encounter. Date/Time Encounter Type Encounter Description Reason Provider Source Feb 10, 2024 08:30 AM INTRM OPH EXAM EST PATIENT OPTOMETRY ICD-10-CM H10.45 Other chronic allergic conjunctivitis OSHINSKIE,LEA NARD J IHE Encounter Template Text not used by [place] Assessments - Encounter Diagnoses This section includes the primary and secondary diagnoses documented for the Encounter. Date/Time Primary/Secondary Diagnosis Diagnosis Name Provider Source Feb 11, 2024 08:30 AM PRIMARY Other chronic allergic conjunctivitis OSHINSKIE,LEA NARD J [facility] [place] [facility] Feb 11, 2024 08:30 AM SECONDARY Esophoria OSHINSKIE,LEA NARD J [facility] [place] [facility] Feb 11, 2024 08:30 AM SECONDARY Hypermetropia, bilateral OSHINSKIE,LEA NARD J [facility] [place] [facility] Feb 11, 2024 08:30 AM SECONDARY Other visual disturbances OSHINSKIE,LEA NARD J [facility] [place] [facility] Feb 11, 2024 08:30 AM SECONDARY Presbyopia OSHINSKIE,LEA NARD J [facility] [place] [facility] Feb 11, 2024 08:30 AM SECONDARY Presence of intraocular lens OSHINSKIE,LEA NARD J [facility] [place] [facility] Feb 11, 2024 08:30 AM SECONDARY Regular astigmatism, bilateral OSHINSKIE,LEA NARD J [facility] [place] [facility] Plan of Treatment: Future Appointments (+ 6 months) and Future Tests (+/- 45 days) The Plan of Treatment section includes future care activities for the patient from all [place] treatmentfacilities. This section includes future appointments and future orders which are active, pending or scheduled. Future Appointments This section includes appointments that were scheduled to occur 6 months from the date of the Encounter, up to a maximum of 20 appointments. The data comes from all [place] treatment facilities. Appointment Date/Time Appointment Type Appointme nt Facility Name Jul 10, 2024 08:30 AM [facility] Social History: Smoking Status (Most current) and Tobacco Use (All prior to encounter date) This section includes the most current, and the historical, smoking and tobacco- related health factors from the [place] facility where the Encounter took place. Current Smoking Status This section includes the most current smoking, or tobacco-related health factor, from the [place] facility where the Encounter took place. Date/Time Current Smoking Status Comment Facil ity Oct 29, 2023 06:12 PM [facility]AC[facility] Tobacco Use History This section includes a history of the smoking, or tobacco-related health factors, that were collected on or before the date of the Encounter. The data comes from the [place] facility where the Encounter took place. Date/Time Smoking Status/Tobacco Use Comment F accecile Oct 29, 2023 06:12 PM VA-TOBACCO QUIT 15 YRS OR [facility] Aug 23, 2019 09:07 AM VA-TOBACCO FORMER USER [place] [facility]TRL [facility] Aug 23, 2019 09:07 AM VA-TOBACCO QUIT 15 YRS OR MORE [facility] Jun 28, 2018 10:50 AM VA-TOBACCO [facility] Jun 28, 2018 10:50 AM VA-TOBACCO QUIT 15 YRS OR MORE [facility] Oct 14, 2017 09:20 AM QUIT TOBACCO USE > [facility] Oct 05, 2016 01:02 PM QUIT TOBACCO USE > 7 YEARS AGO [facility] Advance Directives: All historical and current Section Date Range: From patient's date of to the date document was created. This section includes ALL of a patient's completed or amended [place] Advance and Rescinded Directives. The entries below indicate that a directive exists for the patient, but an actual copy is not included with this document. The data comes from all [place] facilities. Date Advance Directives Provider Source Nov 16, 2023 ADVANCE DIRECTIVE MARC METZGER [facility] Encounter Notes: All associated encounter notes This section contains the clinical notes associated to the Encounter. Date/Time Encounter Note(s) Provider Source Feb 10, 2024 08:06 AM OPTOMETRY NOTE: LOCAL TITLE: OPTOMETRY NOTE STANDARD TITLE: OPTOMETRY NOTE DATE OF NOTE: FEB 10, 2024@08:06 ENTRY DATE: FEB 10, 2024@08:06:46 AUTHOR: YUE GILLIS COSIGNER: VIVI DECKER URGENCY: STATUS: COMPLETED OPTOMETRY NOTE Has ADDENDA Active problems - Computerized Problem List is the source for the followin. Chronic obstructive pulmonary disease 2. Benign Prostatic Hypertrophy without Outflow Obstruction (SCT [id number]) 3. Lumbosacral radiculopathy 4. Multiple renal cysts 5. Benign essential hypertension 6. Toxic polyneuropathy 7. Sleep apnea 8. Hepatitis C 9. H/O: osteoarthritis 10. Atrial fibrillation 11. Seizure disorder 12. Cerebral atrophy 13. Cognitive disorder Active Outpatient Medications (including Supplies): [...] MOUTH EVERY 4 HOURS NEEDED 3) Non-VA ATORVASTATIN CALCIUM 40MG TAB 20MG BY MOUTH AT ACTIVE BEDTIME 4) Non-VA CITALOPRAM HYDROBROMIDE 40MG TAB 40MG BY MOUTH ACTIVE ONCE DAILY 5) Non-VA DILTIAZEM HCL 90MG 12HR SA CAP 180MG BY MOUTH ACTIVE DAILY 6) Non-VA FUROSEMIDE 20MG TAB 20MG BY MOUTH ONCE DAILY ACTIVE NEEDED 7) Non-VA LEVETIRACETAM 500MG TAB 1000MG BY MOUTH TWICE ACTIVE DAILY 8) Non-VA MULTIVITAMIN CAP/TAB 1 TABLET BY MOUTH DAILY ACTIVE 9) Non-VA NITROGLYCERIN 0.4MG SL TAB 0.4MG UNDER THE ACTIVE TONGUE EVERY 5 MINUTES NEEDED 10) Non-VA PSYLLIUM ORAL PWD 1 TEASPOONFUL BY MOUTH ONCE ACTIVE DAILY 11) Non-VA RIVAROXABAN 20MG TAB 20MG BY MOUTH DAILY ACTIVE 12) Non-VA SENNOSIDES 8.6MG TAB 8.6MG BY MOUTH ONCE DAILY ACTIVE 13) Non-VA TAMSULOSIN HCL 0.4MG CAP 0.4MG BY MOUTH ONCE ACTIVE DAILY 14) Non-VA OZIXXODHNPQW29.5/TFPZEPRGPD41IC G 30D INH 1 ACTIVE INHALATION BY MOUTH ONCE DAILY 17 Total Medications Allergies: VICODIN, CODEINE, PIROXICAM, HYDROCODONE All medications including those prescribed by outside VA's, community providers, and all OTC meds were reviewed and reconciled with patient to the best of their abilities. This 83 year old MALE is seen today for problem-focused exam Chief Complaint: Pt presents w/ c/o intermittent blur OS>OD. Pt stopped using original ATs 2 weeks ago due to itching/burning feeling. Previously had been using ATs QID but it seems to not be working as it once did. Pt is also using ketotifen every 12 hours OU that was Rx'd by PCP, no associated side effects with this drop. Began instilling saline OU QHS which has not caused itching/burning but also has not improved his intermittent blur. Pt also states that intermittently he sees a mosaic pattern visual disturbance OS. This occurs 2x per month and is not associated with any head pain. Mosaic disturbance lasts for a few minutes or after blinking a few times . Pt's neurologist is aware of this symptom that began about 2 years ago, and he has been evaluated for head pain that starts at top of head as a ledezma and then travels down body to waist. Pt and daughter express that neurology has not been able to provide him with a diagnosis for this symptom, last neuro exam was 1 month ago. Has a hx of weather-related headaches that pt states are not migraines. Initially in exam, pt notes that he experiences an intermittent dimming of vision that not associated with mosaic pattern. This dimming lasts for 4-5 minutes and has been increasing in duration over the past few months (the last occurence being last week). Futher into exam pt denies dimming of vision OU. Denies sclap tenderness, pain with chewing, fatigue, loss of appetite, or sudden weight loss. Hx of diplopia when reading for long periods of time has now resolved. Pt is happy with current specs. No pertinent family hx reported at today's visit. OHx: -pseudophakia OU -mild PCO OU (evaluated for YAG and defered for present by ophthalmology) -dry eye OU -esophoria with intermittent diplopia when reading for long time -ref error and presbyopia OU (-) Pain: (+) LLANOS: see above (-) Diplopia: (-) Flashes: (x) Floaters: intermittent and longstanding (x Amaurosis Fugax/Tia's: dimming of vision, unsure which eye, lasts for 4-5 minutes, have been increasing in duration, last instance was last week (x Eye Injury: poked in eye with pussywillow 30 years ago (x) Eye Surgery: CE OU (-) TBI FOHx: (-) Glaucoma/ARMD/Blindness VITALS (most recent, as listed in the electronic record): B/P: 127/74 (11/16/2023 11:00) Pulse: 68 (11/16/2023 11:00) Temperature: 98.5 F [36.9 C] (11/16/2023 11:00) Weight: 218 lb [98.88 kg] (11/16/2023 11:00) Height: 69 in [175.3 cm] (11/16/2023 11:00) BMI: BMI: 32.3 PERTINENT LABS: HEMOGLOBIN A1C TREND Collection DT Spec HGBA1c 09/13/2018 09:12 BLOOD 5.3 03/11/2018 09:51 BLOOD 5.4 04/14/2017 10:05 BLOOD 5.2 10/05/2016 13:56 BLOOD 5.2 (-) Smoker/Length of Time/PPD: quit 50 years ago Current Rx with last BCVA: OD: +2.25 -2.25 x105 2P BRANDI 20/20 OS: +1.25 -3.00 x087 1P BD 20/20 Add: +2.50 DVA ( )sc ( x )cc glasses OD: 20/20-2 OS: 20/20-2 Pupils: PERRL (-)APD EOMs: SAFE OU, (-)Pain/Diplopia CVF (facial, peripheral): FTFC OU Subjective Refraction: not indicated All the above performed by student, reviewed by attending Anterior segment: Performed by student, repeated by attending Lids: dermatochalasis OU, MGD OU Conj: hyaline plaques OU, mild papillary reaction inf forices OU Cornea: endothelial pigment OU, post-sx temp scarring OU, no epithelial defects to suggest dry eye AC: >1:1 T&N OU and quiet OU Iris: flat and clear OU Lens: PCIOL well-centered with mild PCO OU Fundus exam: dilation deferred, fundus exam deferred Assessment/Plan: 1. Allergic Conjunctivitis OU most likely -pt educated on exam findings -treatment plan: continue with ketotifen BID OU, discontinue all other drops at present including artificial tears -pt to call if symptoms not resolved in 3-4 days with adherence to current treatment plan -RTC 6 months for CEE 2. 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 Pseudophakia with Posterior Capsular Opacification OU -stable OU -not visually significant or interfering with ADLs currently -mild PCO evaluated by ophthalmology who elected to defer YAG OU at present -monitor at E 4. Esophoria with Intermittent Diplopia OU -pt asymptomatic at present -continue with current specs with prism and taking breaks when reading for long periods of time -monitor at E 5. Hyperopia with astigmatism and presbyopia OU -no refraction performed today -monitor at E Return to Clinic 6 months for CEE or earlier PRN /alba/ Vivi Decker OD Fee Basis Color Drum Worker Signed: 02/10/2024 10:17 for YUE GILLIS OPTOMETRY STUDENT /alba/ Vivi Decker OD Fee Basis Color Drum Worker Cosigned: 02/10/2024 10:17 02/10/2024 ADDENDUM STATUS: COMPLETED I reviewed all findings with the regional economic liaison. I performed the slit lamp exam. No overt signs of dry eyes so will treat for allergic conjunctivitis. Progress note reviewed and edited as needed. I established the plan of care and educated the patient about his conditions. Pt deferred receiving a list of current medications /alba/ Vivi Decker OD Fee Basis Color Drum Worker Signed: 02/10/2024 10:18 VIVI DECKER [place] [facility]
--- OUTSIDE RECORDS SUMMARY | 2024-07-07 09:46 | XMS_ITS | Encounter Summary ---
Author Name [place] Address [address] [place] [address] Care Team Providers Care Legal Analyst Name Role Phone POLLY CLIFFORD Primary Care [...] Name Patient's Relationship to Policy Cherry [facility] (WNR) MEDICARE ADVANTAGE [facility] ([facility]) Jul 19, 2023 [id number] YULIRayne GARCIA PATIENT CAREMARK PRESCRIPT ION [id number] 1 Jul 19, 2017 [id number] [phone] Rayne JACOBO PATIENT CAREMARK PRESCRIPT ION [id number] 1 Jul 19, 2017 [id number] YULIZAHRASiddharthaRayne SCHUMACHER PATIENT MEDICARE (WNR) MEDICARE (M) PART A Sep 16, 2005 PART A [id number] Rayne JACOBO PATIENT MEDICARE (WNR) MEDICARE () PART B Sep 16, 2005 PART B [id number] AVELINARENDY SRSUKI PATIENT MEDICARE (WNR) MEDICARE () PART A Sep 16, 2005 PART A [id number] AVELINARLE SRSUKI PATIENT MEDICARE (WNR) MEDICARE () PART B Sep 16, 2005 PART B [id number] [phone] YULIEHRENDY SRSUKI PATIENT MEDICARE (WNR) MEDICARE () PART A Sep 16, 2005 PART A [id number] [phone] YULIEHRENDY SRSUKI PATIENT MEDICARE (WNR) MEDICARE () PART B Sep 16, 2005 PART B [id number] AVELINARSUKI SCHUMACHER SR PATIENT OPTUM RX PRESCRIPT ION RX Jul 19, 2022 THPRX [id number] Rayne JACOBO PATIENT OPTUM RX PRESCRIPT ION RX Jul 19, 2022 THPRX [id number] Rayne JACOBO PATIENT OPTUM RX PRESCRIPT ION RX Jul 19, 2022 THPRX [id number] [phone] Rayne JACOBO [facility] Jul 19, 2017 [id number] AVELINASiddharthaRayne SCHUMACHER PATIENT [facility] Jul 19, 2017 [facility] [id number] [phone] Rayne JACOBO PATIENT [facility] TON REYNA E Jul 19, 2017 [id number] [phone] Rayne JACOBO PATIENT [facility] CE ORGANIZ US FAMIL Y Jul 21, 2013 (WNR) [id number] DONNELLRayne SHELLEY PATIENT [facility] (R) TRICA RE(WN R) Jul 19, 2017 (WNR) [id number] YULIZAHRAJOSE MIGUELRayne PATIENT Selected Encounter This section includes the information on record at [place] for the Encounter. Date/Time Encounter Type Encounter Description Reason Pro vider Source May 23, 2024 04:10 PM Outpatient Encounter COMMUNITY CARE CONSULT IHE Encounter Template Text not used by [place] Plan of Treatment: Future Appointments (+ 6 months) and Future Tests (+/- 45 days) The Plan of Treatment section includes future care activities for the patient from all [place] [facility]. This section includes future appointments and future orders which are active, pending or scheduled. Future Appointments This section includes appointments that were scheduled to occur 6 months from the date of the Encounter, up to a maximum of 20 appointments. The data comes from all [facility] facilities. Appointment Date/Time Appointment Type Appointme nt Facility Name Jul 10, 2024 08:30 AM AMBULATORY - MEDICINE [facility] Nov 13, 2024 09:00 AM AMBULATORY MEDICINE [facility] Active, Pending, and Scheduled Orders This section includes a listing of several types of active, pending, and scheduled orders, including clinic medications orders, diagnostic test orders, procedure orders and consult orders; where the start date of the order is 45 days before the date of the Encounter or 45 days after the date of theEncounter. The data comes from all [facility]. Test Date/Time Test Type Test Details Facility Name Jun 30, 2024 12:00 AM Laboratory - Chemi stry Order BASIC METABOLIC PANEL (non-fasting) BLOOD (SST-SERUM) [facility] Jun 30, 2024 12:00 AM Laboratory - Chemi stry Order TSH BLOOD (SST-SERUM) [facility] Jun 30, 2024 12:00 AM Laboratory - Chemi stry Order CBC BLOOD (LAV-BLOOD) [facility] Jun 30, 2024 12:00 AM Laboratory - Chemi stry Order LIPID PANEL, NON FASTING BLOOD (SST-SERUM) [facility] Social History: Smoking Status (Most current) and Tobacco Use (All prior to encounter date) This section includes the most current, and the historical, smoking and tobacco- related health factors from the [place] facility where the Encounter took place. Current Smoking Status This section includes the most current smoking, or tobacco-related health factor, from the [place] facility where the Encounter took place. Date/Time Current Smoking Status Comment Ramon yost Oct 29, 2023 06:12 PM VA-TOBACCO FORMER USER [facility] Tobacco Use History This section includes a history of the smoking, or tobacco-related health factors, that were collected on or before the date of the Encounter. The data comes from the [place] facility where the Encounter took place. Date/Time Smoking Status/Tobacco Use Comment Prashanth price Oct 29, 2023 06:12 PM [place]-TOBACCO QUIT 15 YRS OR MORE [facility] Aug 23, 2019 09:07 AM VA-TOBACCO FORMER USER [place] CNTR [place] [facility] Aug 23, 2019 09:07 AM [place]-TOBACCO QUIT 15 YRS OR MORE [place] [facility] Jun 28, 2018 10:50 AM VA-TOBACCO FORMER USER [place] [facility] Jun 28, 2018 10:50 AM [place]-TOBACCO QUIT 15 YRS OR MORE [place] [facility] Oct 14, 2017 09:20 AM QUIT TOBACCO USE > 7 YEARS AGO [facility] [place] [facility] Oct 05, 2016 01:02 PM QUIT TOBACCO USE > 7 YEARS AGO [facility] Advance Directives: All historical and current Section Date Range: From patient's date of to the date document was created. This section includes ALL of a patient's completed or amended [place] Advance and Rescinded Directives. The entries below indicate that a directive exists for the patient, but an actual copy is not included with this document. The data comes from all [place] facilities. Date Advance Directives Provider Source Nov 16, 2023 ADVANCE DIRECTIVE CEZAR METZGERKA [facility] WSN [facility] Encounter Notes: All associated encounter notes This section contains the clinical notes associated to the Encounter. Date/Time Encounter Note(s) Provider Source May 23, 2024 04:10 PM NONVA NOTE: LOCAL TITLE: [facility] COORD PLAN STANDARD TITLE: NONVA NOTE DATE OF NOTE: MAY 23, 2024@16:10 ENTRY DATE: MAY 23, 2024@16:10:17 AUTHOR: SEGUNDO MCFARLANE COSIGNER: URGENCY: STATUS: COMPLETED Emergency Notification Intake Date Presenting to the Facility: Mar Method of Contact: Notified from ECR worklist Notification ID: [id number] [facility] Referral #: [id number] [facility] Name: Hospital: [facility] Address: City: [place] State: [place] Zip Code: Phone : Community Facility Point of Contact: Name: Ana Phone: Chief complaint: L ARM/LEG SWELLING Primary Diagnosis: Disposition Discharged Date of discharge: Mar Discharge to Comment: ER Only /alba/ SEGUNDO MALDONADO Signed: 05/23/2024 16:12 Receipt Acknowledged By: * AWAITING SIGNATURE * MILKA HAIR 05/31/2024 08:49 /es/ Tigist WANG,RN,[facility] TRANSFER/TRAVELING COORDINATOR * AWAITING SIGNATURE * TEJA PETTY * AWAITING SIGNATURE * JOAO GARCIA DAWN MARIE KENDRICK
--- OUTSIDE RECORDS SUMMARY | 2024-07-07 09:46 | XMS_ITS | Encounter Summary ---
Author Name [place] Address [address] [place] [address] Care Team Providers Care Coal Tram Driver Name Role Phone POLLY CLIFFORD Primary Care [...] Cherry's Name Patient's Relationship to Policy Cherry [facility] (WNR) MEDICARE ADVANTAGE [facility] ([facility]) Jul 19, 2023 [id number] Rayne JACOBO PATIENT CAREMARK PRESCRIPT ION [id number] 1 Jul 19, 2017 [id number] Rayne JACOBO PATIENT CAREMARK PRESCRIPT ION [id number] 1 Jul 19, 2017 [id number] YULIRayne GARCIA PATIENT MEDICARE (WNR) MEDICARE (M) PART A Sep 16, 2005 PART A [id number] [phone] Rayne JACOBO PATIENT MEDICARE (WNR) MEDICARE () PART B Sep 16, 2005 PART B [id number] AVELINARENDY SRSUKI PATIENT MEDICARE (WNR) MEDICARE () PART A Sep 16, 2005 PART A YULIEHRLE SRSUKI PATIENT MEDICARE (WNR) MEDICARE (M) PART B Sep 16, 2005 PART B [id number] [phone] YULIEHRENDY SRSUKI PATIENT MEDICARE (WNR) MEDICARE (M) PART A Sep 16, 2005 PART A [id number] YULIEHRENDY SRSUKI PATIENT MEDICARE (WNR) MEDICARE () PART B Sep 16, 2005 PART B [id number] AVELINARENDY SRSUKI PATIENT OPTUM RX PRESCRIPT ION RX Jul 19, 2022 THPRX [id number] Rayne JACOBO PATIENT OPTUM RX PRESCRIPT ION RX Jul 19, 2022 THPRX [id number] Rayne JACOBO PATIENT OPTUM RX PRESCRIPT ION RX Jul 19, 2022 THPRX [id number] Rayne JACOBO PATIENT [facility] T[facility] Jul 19, 2017 [id number] [phone] AVELINASiddharthaRayne SCHUMACHER PATIENT [facility] Jul 19, 2017 [facility] [id number] Rayne JACOBO PATIENT [facility] TON REYNA E Jul 19, 2017 [id number] Rayne JACOBO PATIENT [facility] CE ORGANIZ US FAMIL Y Jul 21, 2013 (WNR) [id number] DONNELLRayne SHELLEY PATIENT [facility] (WNR) TRICA RE(WN R) Jul 19, 2017 (WNR) [id number] YULIZAHRAJOSE MIGUELRayne PATIENT Selected Encounter This section includes the information on record at [place] for the Encounter. Date/Time Encounter Type Encounter Description Reason Pro vider Source Jul 01, 2024 08:38 AM Outpatient Encounter OPTOMETRY IHE Encounter Template Text not used by [place] Plan of Treatment: Future Appointments (+ 6 months) and Future Tests (+/- 45 days) The Plan of Treatment section includes future care activities for the patient from all [place] [facility]. This section includes future appointments and future orders which are active, pending or scheduled. Future Appointments This section includes appointments that were scheduled to occur 6 months from the date of the Encounter, up to a maximum of 20 appointments. The data comes from all [facility] facilities. Appointment Date/Time Appointment Type Appointme nt Facility Name Jul 10, 2024 08:30 AM AMBULATORY - MEDICINE [facility] Nov 13, 2024 09:00 AM AMBULATORY MEDICINE [facility] Active, Pending, and Scheduled Orders This section includes a listing of several types of active, pending, and scheduled orders, including clinic medications orders, diagnostic test orders, procedure orders and consult orders; where the start date of the order is 45 days before the date of the Encounter or 45 days after the date of theEncounter. The data comes from all [facility]. Test Date/Time Test Type Test Details Facility Name Jun 30, 2024 12:00 AM Laboratory - Chemi stry Order BASIC METABOLIC PANEL (non-fasting) BLOOD (SST-SERUM) [facility] Jun 30, 2024 12:00 AM Laboratory - Chemi stry Order TSH BLOOD (SST-SERUM) [facility] Jun 30, 2024 12:00 AM Laboratory - Chemi stry Order CBC BLOOD (LAV-BLOOD) [facility] Jun 30, 2024 12:00 AM Laboratory - Chemi stry Order LIPID PANEL, NON FASTING BLOOD (SST-SERUM) [facility] Social History: Smoking Status (Most current) and Tobacco Use (All prior to encounter date) This section includes the most current, and the historical, smoking and tobacco- related health factors from the [place] facility where the Encounter took place. Current Smoking Status This section includes the most current smoking, or tobacco-related health factor, from the [place] facility where the Encounter took place. Date/Time Current Smoking Status Comment Ramon yost Oct 29, 2023 06:12 PM [facility] Tobacco Use History This section includes a history of the smoking, or tobacco-related health factors, that were collected on or before the date of the Encounter. The data comes from the [place] facility where the Encounter took place. Date/Time Smoking Status/Tobacco Use Comment Prashanth price Oct 29, 2023 06:12 PM [place]-TOBACCO QUIT 15 YRS OR [facility] Aug 23, 2019 09:07 AM VA-TOBACCO FORMER USER [place] [facility] Aug 23, 2019 09:07 AM [place]-TOBACCO QUIT 15 YRS OR MORE [place] [facility] Jun 28, 2018 10:50 AM [place]-TOBACCO [facility] [place] [facility] Jun 28, 2018 10:50 AM [place]-TOBACCO QUIT 15 YRS OR MORE [place] [facility] [place] [facility] Oct 14, 2017 09:20 AM QUIT TOBACCO USE > 7 YEARS AGO [facility] Oct 05, 2016 01:02 PM QUIT TOBACCO USE > 7 [facility] Advance Directives: All historical and current Section Date Range: From patient's date of to the date document was created. This section includes ALL of a patient's completed or amended [place] Advance and Rescinded Directives. The entries below indicate that a directive exists for the patient, but an actual copy is not included with this document. The data comes from all [place] facilities. Date Advance Directives Provider Source Nov 16, 2023 ADVANCE DIRECTIVE MARC METZGER [facility]SN [facility] Encounter Notes: All associated encounter notes This section contains the clinical notes associated to the Encounter. Date/Time Encounter Note(s) Provider Source Jul 01, 2024 08:38 AM TELEPHONE ENCOUNTE R NOTE: LOCAL TITLE: TELEPHONE NOTE/SPECIALTY CLINIC STANDARD TITLE: TELEPHONE ENCOUNTER NOTE DATE OF NOTE: JUL 01, 2024@08:38 ENTRY DATE: JUL 01, 2024@08:38:42 AUTHOR: CHEMA BUSTILLO EXP COSIGNER: URGENCY: STATUS: COMPLETED Called and left message on voicemail. Patients appointment with dental on 12/21/2024 has been cancelled and needs to be rescheduled with a PID of 08/12/2024 Letter mailed. Appt to be rescheduled to a Wednesday. ADMINISTRATIVE CONTACT HAS orders: [facility] Able to contact patient: Spoke to Patient/Patient field representative/health education per policy utilizing HIPAA Guidelines. Attempts to contact: 1st attempt: Left voicemail 2nd attempt: Letter mailed Disposition on Jun 3rd attempt: 4th attempt: /alba/ CHEMA BUSTILLO ADVANCED SHAKER TENDER Signed: 07/01/2024 08:39 CHE[facility]USTILLO [facility]
--- OUTSIDE RECORDS SUMMARY | 2024-07-07 09:46 | XMS_ITS | Encounter Summary ---
Author Name [place] Address [address] [place] [address] Care Team Providers Care Thread Separator Name Role Phone POLLY CLIFFORD Primary Care [...] Cherry's Name Patient's Relationship to Policy Cherry [facility] (WNR) MEDICARE ADVANTAGE [facility] Jul 19, 2023 [id number] Rayne JACOBO PATIENT CAREMARK PRESCRIPT ION [id number] 1 Jul 19, 2017 [id number] Rayne JACOBO PATIENT CAREMARK PRESCRIPT ION [id number] 1 Jul 19, 2017 [id number] YULIRayne GARCIA PATIENT MEDICARE (WNR) MEDICARE (M) PART A Sep 16, 2005 PART A [id number] Rayne JACOBO PATIENT MEDICARE (WNR) MEDICARE () PART B Sep 16, 2005 PART B [id number] [id number] [id number] AVELINARENDY SRSUKI PATIENT MEDICARE (WNR) MEDICARE () PART A Sep 16, 2005 PART A YULIEHRLE SRSUKI PATIENT MEDICARE (WNR) MEDICARE (M) PART B Sep 16, 2005 PART B [id number] [phone] YULIEHRENDY SRSUKI PATIENT MEDICARE (WNR) MEDICARE (M) PART A Sep 16, 2005 PART A [id number] YULIEHRENDY SRSUKI PATIENT MEDICARE (WNR) MEDICARE () PART B Sep 16, 2005 PART B [id number] [phone] AVELINARENDY SRSUKI PATIENT OPTUM RX PRESCRIPT ION RX Jul 19, 2022 THPRX [id number] Rayne JACOBO PATIENT OPTUM RX PRESCRIPT ION RX Jul 19, 2022 THPRX [id number] Rayne JACOBO PATIENT OPTUM RX PRESCRIPT ION RX Jul 19, 2022 THPRX [id number] [phone] Rayne JACOBO PATIENT [facility] Jul 19, 2017 [id number] AVELINASiddharthaRayne SCHUMACHER PATIENT [facility] Jul 19, 2017 [facility] [id number] Rayne JACOBO PATIENT [facility] TON REYNA E Jul 19, 2017 [id number] Rayne JACOBO PATIENT [facility] CE ORGANIZ US FAMIL Y Jul 21, 2013 (WNR) [id number] DONNELLRayne SHELLEY PATIENT [facility] (WNR) TRICA RE(WN R) Jul 19, 2017 (WNR) [id number] YULIZAHRAJOSE MIGUELRayne PATIENT Selected Encounter This section includes the information on record at [place] for the Encounter. Date/Time Encounter Type Encounter Description Reason Pro vider Source Jul 05, 2024 02:58 PM Outpatient Encounter OPTOMETRY IHE Encounter Template Text not used by [place] Plan of Treatment: Future Appointments (+ 6 months) and Future Tests (+/- 45 days) The Plan of Treatment section includes future care activities for the patient from all [place] [facility]. This section includes future appointments and future [...] 10, 2024 08:30 AM AMBULATORY - MEDICINE [facility] Nov 13, 2024 09:00 AM AMBULATORY MEDICINE [facility] Active, Pending, and Scheduled Orders This section includes a listing of several types of active, pending, and scheduled orders, including clinic medications orders, diagnostic test orders, procedure orders and consult orders; where the start date of the order is 45 days before the date of the Encounter or 45 days after the date of theEncounter. The data comes from all [facility]. Test Date/Time Test Type Test Details Facility Name Jun 30, 2024 12:00 AM Laboratory - Chemi stry Order BASIC METABOLIC PANEL (non-fasting) BLOOD (SST-SERUM) [facility] Jun 30, 2024 12:00 AM Laboratory - Chemi stry Order TSH BLOOD (SST-SERUM) [facility] Jun 30, 2024 12:00 AM Laboratory - Chemi stry Order CBC BLOOD (LAV-BLOOD) [facility] Jun 30, 2024 12:00 AM Laboratory - Chemi stry Order LIPID PANEL, NON FASTING BLOOD (SST-SERUM) [facility] Social History: Smoking Status (Most current) and Tobacco Use (All prior to encounter date) This section includes the most current, and the historical, smoking and tobacco- related health factors from the [place] facility where the Encounter took place. Current Smoking Status This section includes the most current smoking, or tobacco-related health factor, from the [place] facility where the Encounter took place. Date/Time Current Smoking Status Comment Ramon yost Oct 29, 2023 06:12 PM [facility] Tobacco Use History This section includes a history of the smoking, or tobacco-related health factors, that were collected on or before the date of the Encounter. The data comes from the [place] facility where the Encounter took place. Date/Time Smoking Status/Tobacco Use Comment Prashanth price Oct 29, 2023 06:12 PM [place]-TOBACCO QUIT 15 YRS OR MORE [facility] Aug 23, 2019 09:07 AM VA-TOBACCO FORMER USER [place] [facility] Aug 23, 2019 09:07 AM VA-TOBACCO QUIT 15 YRS OR MORE [place] [facility] Jun 28, 2018 10:50 AM VA-TOBACCO [facility] [place] [facility] Jun 28, 2018 10:50 AM [place]-TOBACCO QUIT 15 YRS OR MORE [place] [facility]TR [place] [facility] Oct 14, 2017 09:20 AM QUIT TOBACCO USE > 7 YEARS AGO [facility] Oct 05, 2016 01:02 PM QUIT TOBACCO USE > 7 [facility] AGO [facility] Advance Directives: All historical and current Section Date Range: From patient's date of to the date document was created. This section includes ALL of a patient's completed or amended [place] Advance and Rescinded Directives. The entries below indicate that a directive exists for the patient, but an actual copy is not included with this document. The data comes from all [place] facilities. Date Advance Directives Provider Source Nov 16, 2023 ADVANCE DIRECTIVE MARC METZGER [facility] WSN [facility] Encounter Notes: All associated encounter notes This section contains the clinical notes associated to the Encounter. Date/Time Encounter Note(s) Provider Source Jul 05, 2024 03:07 PM ADDENDUM: LOCAL TITLE: Addendum STANDARD TITLE: ADDENDUM DATE OF NOTE: JUL 05, 2024@15:07:57 ENTRY DATE: JUL 05, 2024@15:07:59 AUTHOR: RONNIE MARMOLEJO EXP COSIGNER: URGENCY: STATUS: COMPLETED Offer Appointment 07/10 in am with me. /filippo Marmolejo OD CHIEF OF OPTOMETRY Signed: 07/05/2024 15:08 Receipt Acknowledged By: 07/05/2024 15:17 /filippo VILLALPANDO ADVANCED SULFURIC ACID PLANT SUPERVISOR === --- Original Document --- 07/05/24 TELEPHONE NOTE/SPECIALTY CLINIC: Norton calls stating that he is not able to wait until September for an eye exam. Checked to see if there were any cancellations with all providers. None. Norton complains of bilateral eye pain. Left eye hurts more than the right eye/ crossing itself from time to time but then corrects itself. Right eye vision will change giving him a stationary picture. This has never happened before and is concerned. Primary phone confirmed. Please advise. /filippo VILLALPANDO ADVANCED SULFURIC ACID PLANT SUPERVISOR Signed: 07/05/2024 15:02 Receipt Acknowledged By: * AWAITING SIGNATURE * ARYASHALONDA E 07/05/2024 15:08 /filippo Marmolejo OD CHIEF OF OPTOMETRY RONNIE MARMOLEJO [place] [facility] Jul 05, 2024 02:58 PM TELEPHONE KRYSTLE R NOTE: LOCAL TITLE: TELEPHONE NOTE/SPECIALTY CLINIC STANDARD TITLE: TELEPHONE ENCOUNTER NOTE DATE OF NOTE: JUL 05, 2024@14:58 ENTRY DATE: JUL 05, 2024@14:59:29 AUTHOR: ADE VILLALPANDO EXP COSIGNER: URGENCY: STATUS: COMPLETED TELEPHONE NOTE/SPECIALTY CLINIC Has ADDENDA Norton calls stating that he is not able to wait until September for an eye exam. Checked to see if there were any cancellations with all providers. None. Norton complains of bilateral eye pain. Left eye hurts more than the right eye/ crossing itself from time to time but then corrects itself. Right eye vision will change giving him a stationary picture. This has never happened before and is concerned. Primary phone confirmed. Please advise. /alba/ ADE VILLALPANDO ADVANCED SULFURIC ACID PLANT SUPERVISOR Signed: 07/05/2024 15:02 Receipt Acknowledged By: 07/05/2024 16:09 /alba/ SHALONDA KOENIG OD STAFF MANAGER [employer] 07/05/2024 15:08 /alba/ Ronnie Marmolejo OD CHIEF OF OPTOMETRY 07/05/2024 ADDENDUM STATUS: COMPLETED Offer Appointment 07/10 in am with me. /alba/ Ronnie Marmolejo OD CHIEF OF OPTOMETRY Signed: 07/05/2024 15:08 Receipt Acknowledged By: 07/05/2024 15:17 /alba/ ADE VILLALPANDO ADVANCED SULFURIC ACID PLANT SUPERVISOR 07/05/2024 ADDENDUM STATUS: COMPLETED Called and he agreed to come in 07/10/2024 - 830am. All set and scheduled. /alba/ ADE VILLALPANDO ADVANCED SULFURIC ACID PLANT SUPERVISOR Signed: 07/05/2024 15:25 ADE VILLALPANDO [place] CNTRL WSTRN [facility]
--- OUTSIDE RECORDS SUMMARY | 2024-07-07 09:46 | XMS_ITS | Encounter Summary ---
Author Name [facility] [facility] [place] [facility] [place] Address [address] [place] [address] Care Team Providers Care Per Diem Interpreter Name Role Phone POLLY CLIFFORD Primary Care [...] Cherry's Name Patient's Relationship to Policy Cherry [facility] (WNR) MEDICARE ADVANTAGE [facility] ([facility]) Jul 19, 2023 [id number] YULIRayne GARCIA PATIENT [facility] PRESCRIPT ION [id number] 1 Jul 19, 2017 [id number] [phone] Rayne JACOBO PATIENT [facility] PRESCRIPT ION [id number] 1 Jul 19, 2017 [id number] YULIZAHRASiddharthaRayne SCHUMACHER PATIENT MEDICARE (WNR) MEDICARE (M) PART A Sep 16, 2005 PART A [id number] Rayne JACOBO PATIENT MEDICARE (WNR) MEDICARE () PART B Sep 16, 2005 PART B [id number] AVELINARENDY SRSUKI PATIENT MEDICARE (WNR) MEDICARE () PART A Sep 16, 2005 PART A [id number] AVELINARLE SRSUKI PATIENT MEDICARE (WNR) MEDICARE () PART B Sep 16, 2005 PART B [id number] [phone] YULIEHRENDY SRSUKI PATIENT MEDICARE (WNR) MEDICARE () PART A Sep 16, 2005 PART A [id number] YULIEHRENDY SRSUKI PATIENT MEDICARE (WNR) MEDICARE () PART B Sep 16, 2005 PART B [id number] [phone] AVELINARSUKI SCHUMACHER SR PATIENT OPT[facility] RX PRESCRIPT ION RX Jul 19, 2022 THPRX [id number] Rayne JACOBO PATIENT [facility] RX PRESCRIPT ION RX Jul 19, 2022 THPRX [id number] Rayne JACOBO PATIENT [facility] RX PRESCRIPT ION RX Jul 19, 2022 THPRX [id number] Rayne JACOBO PATIENT [facility] Jul 19, 2017 [id number] [phone] AVELINASiddharthaRayne SCHUMACHER PATIENT [facility] Jul 19, 2017 [facility] [id number] Rayne JACOBO PATIENT [facility] T[facility] REYNA E Jul 19, 2017 [id number] Rayne JACOBO PATIENT [facility] Jul 21, 2013 (WNR) [id number] DONNELLRayne SHELLEY PATIENT [facility] (R) [facility] RE(WN R) Jul 19, 2017 (WNR) [id number] YULIZAHRAJOSE MIGUELRayne PATIENT Selected Encounter This section includes the information on record at [place] for the Encounter. Date/Time Encounter Type Encounter Description Reason Pro vider Source Jun 22, 2024 02:01 PM Outpatient Encounter COMMUNITY CARE CONSULT IHE Encounter Template Text not used by [place] Plan of Treatment: Future Appointments (+ 6 months) and Future Tests (+/- 45 days) The Plan of Treatment section includes future care activities for the patient from all [place] [facility]. This section includes future appointments and future orders which are active, pending or scheduled. Future Appointments This section includes appointments that were scheduled to occur 6 months from the date of the Encounter, up to a maximum of 20 appointments. The data comes from all [facility] facilities. Appointment Date/Time Appointment Type Appointme nt Facility Name Jul 10, 2024 08:30 AM AMBULATORY - MEDICINE [facility] Nov 13, 2024 09:00 AM AMBULATORY MEDICINE [facility] Active, Pending, and Scheduled Orders This section includes a listing of several types of active, pending, and scheduled orders, including clinic medications orders, diagnostic test orders, procedure orders and consult orders; where the start date of the order is 45 days before the date of the Encounter or 45 days after the date of theEncounter. The data comes from all [facility] [address]. Test Date/Time Test Type Test Details Facility Name Jun 30, 2024 12:00 AM Laboratory - Chemi stry Order BASIC METABOLIC PANEL (non-fasting) BLOOD (SST-SERUM) [facility] Jun 30, 2024 12:00 AM Laboratory - Chemi stry Order TSH BLOOD (SST-SERUM) [facility] Jun 30, 2024 12:00 AM Laboratory - Chemi stry Order CBC BLOOD (LAV-BLOOD) [facility] Jun 30, 2024 12:00 AM Laboratory - Chemi stry Order LIPID PANEL, NON FASTING BLOOD (SST-SERUM) [facility] Social History: Smoking Status (Most current) and Tobacco Use (All prior to encounter date) This section includes the most current, and the historical, smoking and tobacco- related health factors from the [place] facility where the Encounter took place. Current Smoking Status This section includes the most current smoking, or tobacco-related health factor, from the [place] facility where the Encounter took place. Date/Time Current Smoking Status Comment Ramon yost Oct 29, 2023 06:12 PM VA-TOBACCO FORMER USER [facility] Tobacco Use History This section includes a history of the smoking, or tobacco-related health factors, that were collected on or before the date of the Encounter. The data comes from the [place] facility where the Encounter took place. Date/Time Smoking Status/Tobacco Use Comment Prashanth price Oct 29, 2023 06:12 PM [place]-TOBACCO QUIT 15 YRS OR MORE [facility] Aug 23, 2019 09:07 AM VA-TOBACCO FORMER USER [place] [facility] Aug 23, 2019 09:07 AM [place]-TOBACCO QUIT 15 YRS OR MORE [place] [facility] Jun 28, 2018 10:50 AM [facility]AC[facility] Jun 28, 2018 10:50 AM [place]-TOBACCO QUIT 15 YRS OR MORE [place] [facility] Oct 14, 2017 09:20 AM QUIT TOBACCO USE > 7 YEARS AGO [facility] Oct 05, 2016 01:02 PM QUIT TOBACCO USE > 7 YEARS AGO [facility] Advance Directives: All historical and current Section Date Range: From patient's date of to the date document was created. This section includes ALL of a patient's completed or amended [place] Advance and Rescinded Directives. The entries below indicate that a directive exists for the patient, but an actual copy is not included with this document. The data comes from all [place] facilities. Date Advance Directives Provider Source Nov 16, 2023 ADVANCE DIRECTIVE CEZAR METZGERKA [facility] Encounter Notes: All associated encounter notes This section contains the clinical notes associated to the Encounter. Date/Time Encounter Note(s) Provider Source Jun 22, 2024 02:01 PM NONVA NOTE: LOCAL TITLE: [facility] COORD PLAN STANDARD TITLE: NONVA NOTE DATE OF NOTE: JUN 22, 2024@14:01 ENTRY DATE: JUN 22, 2024@14:01:23 AUTHOR: SEGUNDO MCFARLANE EXP COSIGNER: URGENCY: STATUS: COMPLETED Emergency Notification Intake Date Presenting to the Facility: Apr Method of Contact: Notified from ECR worklist Notification ID: [id number] [facility] Referral #: [id number] [facility] Hospital Name: Hospital: [facility] Address: City: [place] State: [place] Zip Code: Phone : Community Facility Point of Contact: Name: Dang Phone: Chief complaint: Fall Primary Diagnosis: Disposition Discharged Date of discharge: Apr Discharge to Comment: ER Only /alba/ SEGUNDO MALDONADO Signed: 06/22/2024 14:03 Receipt Acknowledged By: 06/28/2024 08:22 /es/ Tigist WANG,RN,CCM TRANSFER/TRAVELING COORDINATOR SEGUNDO MCFARLANE [place]
--- NOTE | 2024-07-07 09:49 | AM.OFFWIN_ITS ---
Intake Vital Signs 07/07/24 10:01 Height 5 ft 9 in Weight 221 lb BMI 32.6 BP 134/80 Blood Pressure Location Rt brachial Position Sitting Pulse 66 Pulse Source Pulse Oximeter Pulse Oximetry (%) 99 Oxygen Delivery Method Room Air Intake Visit Reasons: EP-bowel movement problems Intake Note: Patient here for bowel movement issues and has been happening every couple of months but this time it started Wednesday. Patient Tobacco Use Status: Former Tobacco user Allergies penicillin V Allergy (Severe, Verified 07/07/24 10:03) Hives piroxicam [PIROXICAM] Allergy (Intermediate, Verified 07/07/24 10:03) HIVES/SOB rofecoxib [From VIOXX] Allergy (Intermediate, Verified 07/07/24 10:03) HIVES/SOB Penicillins [PENICILLINS] Allergy (Unknown, Verified 07/07/24 10:03) UNKNOWN phenacetin [PHENACETIN] Allergy (Unknown, Verified 07/07/24 10:03) UNK From VICODIN Allergy (Intermediate, Uncoded 07/07/24 10:03) HIVES/SOB Do you need a note to return to daycare/school/sports/work: No HPI HPI Comments History of Present Illness Details Patient is an 83yo M who presents to office with bowel movement complaints Hehas hx of afib on Xarelto Daughter with him currently He said this has occurred a few times this year (third episode- has had enema in the ER in the past) PCP sent him here to the office for evaluation; no PCP in [place] system Last BM was Wednesday or before Wednesday daughter tried miralax, imodium, prune juice He eats regular meals throughout the day He drinks water all day long 36 oz of prune juice He said + abdominal distension + passing flatulence + nausea without vomiting No CP or SOB No blood in stools or with wiping; no bleeding No fever or chills 5/10 discomfort PFSH Medical History Chronic anticoagulation CAD (coronary artery disease) Seizure disorder Paroxysmal atrial fibrillation HTN (hypertension) Surgical History History of left knee surgery History of right hip replacement History of ear surgery S/P skin biopsy Social History Alcohol intake: current Alcohol intake frequency: holidays/special occasions only Alcohol type: beer Patient Tobacco Use Status: Former Tobacco user Years Smoked: 30 +/- Review of Systems Const Denies chills and Denies fever(s) Resp Denies cough GI Reports abdominal pain, Reports bloating, Reports constipation, Reports nausea and Denies vomiting Denies dysuria Physical Exam Vital Signs: Last Vital Signs Pulse 66 07/07/24 10:01 BP 134/80 07/07/24 10:01 Pulse Ox 99 07/07/24 10:01 Oxygen Delivery Method Room Air 07/07/24 10:01 BMI result Body Mass Index 32.6 General: Non-toxic, NAD. Speaking full sentences. Skin: Warm dry throughout Eye: EOMI HENT: Airway patent. moist mucosa. Uvula midline. No pharyngeal erythema or edema. No [employer] TE[employer]ER. Bilateral canals clear. TM non-erythematous, non-bulging. No TM perforation or hemotympanum noted. Respiratory: CTA bilaterally. No wheezes, rales or rhonchi Cardiac: RRR. No murmur Abdominal: BS decreased throughout. + distention without rebound or guarding. + slight ttp L sided abdomen, LLQ Neurology: Alert. No aphasia or facial droop. Gait without abnormality Psych: Good mood and affect Assessment & Plan Assessment & Plan (1) Constipation: Code(s): K59.00 - Constipation, unspecified Qualifiers: Constipation type: unspecified constipation type Qualified Code(s): K59.00 - Constipation, unspecified Plan: Patient seen and evaluated. KUB: I viewed + stool without obstruction Discussed results with pt and daughter Although he does not have an acute abdomen, I recommend ER eval for CT imaging and/or enema/rectal disimpaction Patient and daughter gave verbal understanding and had no additional questions or concerns at time of discharge Expect called to [place] ER Daughter driving to ER All questions answered Orders: Orders XR KUB Today K59.00 - Constipation, unspecified Coding Level of Care Code Est Pt Level 4 (24448) Diagnoses Constipation, unspecified constipation type K59.00 Constipation type: unspecified constipation type
[2024-07-07 10:01] VITALS: BP 134/80; PULSE 66; O2SAT 99; BMI 32.6
== END 2024-07-07 10:44 | disposition home or self-care (01) ==
PROVIDERS: PCP Family Medicine; Visit Provider Physician Assistant
DX: K59.00 Constipation, unspecified (principal)

== ENCOUNTER 2024-07-07 10:57 | Emergency (ER) | payer OTHER, SELFPAY ==
--- NOTE | 2024-07-07 11:00 | ED_ITS ---
HPI - General Adult General Chief complaint: Abdominal Pain Stated complaint: bowel blockage Time Seen by Provider: 07/07/24 13:06 Source: patient Mode of arrival: ambulatory Limitations: no limitations History of Present Illness ED Provider: Darline Ignacio NP HPI narrative: patient is an 83-year-old male with past medical history of CAD, seizure disorder, paroxysmal atrial fibrillation, hypertension who presents emergency department for evaluation of constipation. He admits to no BMs over the past 5 days possibly even longer. Is having mild discomfort to the lower abdomen but he states it is not significantly painful. He does feel bloated and admits that he has been passing gas. Despite his dietary changes including high-fiber, prune juice, Dulcolax and MiraLax he has not had any form of a bowel movement. He went to an urgent care and after having a KUB was referred to the emergency department for further evaluation. Patient does state that he is a bit forgetful, he believes he was last constipated in November, Does not recall what treatment was helpful to alleviate this. He denies any associated fevers, chills, nausea, vomiting, genitourinary symptoms, recent hematochezia or melena. Related Data Home Medications ?Medication ?Instructions ?Recorded ?Confirmed diclofenac sodium 1 % topical gel 1 ea topical QID 06/11/20 04/21/24 albuterol sulfate 90 mcg/actuation 2 puff inhalation Q4H PRN wheezing 12/12/20 04/21/24 aerosol inhaler ascorbic acid (vitamin C) 500 mg mg PO 05/22/21 04/21/24 capsule nitric oxide gas 100 PPM for ea inhalation 05/22/21 04/21/24 inhalation atorvastatin 20 mg tablet 20 mg PO DAILY 11/25/21 04/21/24 tamsulosin 0.4 mg capsule 0.4 mg PO BID 11/25/21 04/21/24 carboxymethylcellulose sodium 0.5 drp ophthalmic (eye) 03/12/22 04/21/24 % eye drops olopatadine 0.1 % eye drops 1 drp ophthalmic (eye) ONCE 03/12/22 04/21/24 citalopram 40 mg tablet 40 mg PO DAILY 04/19/23 04/21/24 levetiracetam 1,000 mg tablet 750 mg PO BID 04/19/23 04/21/24 furosemide 20 mg tablet 20 mg PO DAILY 12/02/23 04/21/24 ketotifen fumarate 0.025 % (0.035 drp ophthalmic (eye) 12/02/23 04/21/24 %) eye drops (Eye Itch Relief) nitroglycerin 0.3 mg sublingual mg sublingual 12/02/23 04/21/24 tablet Previous Rx's ?Medication ?Instructions ?Recorded lidocaine 5 % topical cream 1 appl topical BID PRN pain #15 05/12/22 grams diltiazem HCl 180 mg 180 mg PO DAILY #90 caps 05/09/24 capsule,extended release 24 hr rivaroxaban 20 mg tablet (Xarelto) 20 mg PO QPM #90 tabs 06/02/24 polyethylene glycol 3350 17 17 g PO DAILY #119 grams 07/07/24 gram/dose oral powder (Miralax) Allergies Allergy/AdvReac Type Severity Reaction Status Date / Time penicillin V Allergy Severe Hives Verified 07/07/24 11:02 piroxicam [PIROXICAM] Allergy Intermediate HIVES/SOB Verified 07/07/24 11:02 rofecoxib [From VIOXX] Allergy Intermediate HIVES/SOB Verified 07/07/24 11:02 Penicillins [PENICILLINS] Allergy Unknown UNKNOWN Verified 07/07/24 11:02 phenacetin [PHENACETIN] Allergy Unknown UNK Verified 07/07/24 11:02 From VICODIN Allergy Intermediate HIVES/SOB Uncoded 07/07/24 11:02 Review of Systems 2 Review of Systems: Yes all other systems are reviewed and are negative [facility] Past Medical History Attestation statement: The following information was validated with the patient. Source: old records reviewed Medical History Chronic anticoagulation CAD (coronary artery disease) Seizure disorder Paroxysmal atrial fibrillation HTN (hypertension) Surgical History History of left knee surgery History of right hip replacement History of ear surgery S/P skin biopsy Social History Social History Alcohol intake: current Alcohol intake frequency: holidays/special occasions only Alcohol type: beer Patient Tobacco Use Status: Former Tobacco user Years Smoked: 30 +/- Smoked in Last 30 Days: No Use of substances other than those prescribed or required for medical reasons: No Advance Directives: No Advance Directives Information Provided: Yes Physical Exam ED Vital Signs: Vital Signs - 24 hr 07/07/24 11:01 07/07/24 13:09 07/07/24 15:31 Temperature 98.3 F 98.8 F Pulse Rate 63 70 59 Respiratory Rate 20 16 16 Blood Pressure 135/67 148/61 H 158/81 H Pulse Oximetry 95 93 97 Oxygen Delivery Method Room Air Room Air Room Air BMI result Body Mass Index 31.2 Appearance: Alert.?Oriented to person, place and time. No acute distress.?Normal affect. CVS: Heart sounds normal. Normal heart rate and rhythm.? Pulses normal.?? Respiratory: No respiratory distress.? Lung sounds clear to auscultation bilaterally?? Abdomen: Soft and non-tender. Normoactive bowel sounds. No pulsatile mass.?? Skin: Skin warm and dry.? Normal skin color.? Extremities: No lower extremity edema.? Neuro: Moves all extremities spontaneously. Sensation intact bilaterally. No focal neuro deficits. Ambulates with normal steady gait. Course Course Course Narrative: This is a rapid medical exam performed by Hernán Bright NP: Additional HPI, ROS, PE not included below will be deferred to primary provider. Patient is an 83y/o M with pmhx of CAD, paroxysmal afib on Xarelto, HTN, seizure disorder presenting to the emergency department with complaint of constipation, no BM x 5 days. History of similar several times over the past year. Went to urgent care, had KUB, referred here. Is passing flatus, nausea without vomiting. Plan: labs, UA Reevaluation(s) Reevaluation #1: Patient without success despite mineral oil Fleet's enema in department today. Of note daughter reports that he is consuming a sufficient amount of water daily, 36 oz of prune juice, 3 days ago she trialed MiraLax, Imodium in addition to the prune juice without good effect. Reevaluation #2: Patient had a large successful bowel movement about 1 hour after receiving the mineral Fleet's enema. I discussed with patient and his daughter daily MiraLax and withholding if he develops any diarrhea. He reports feeling significantly improved and would like to be discharged at this time which I feel is reasonable. Medications Administered Discontinued Medications Generic Name Dose Route Start Last Admin Trade Name Shey PRN Reason Stop Dose Admin Mineral Oil 133 ml 07/07/24 14:06 07/07/24 15:23 Mineral Oil Enema 133 Ml Enema DC 07/07/24 14:07 133 ml ONCE ONE Administration Medical Decision Making Medical Decision Making [facility] Narrative: patient is an 83-year-old male with past medical history of CAD, seizure disorder, paroxysmal atrial fibrillation, hypertension, Constipation presenting to the emergency department for evaluation of constipation over the past 5 days at least and mild discomfort to the lower abdomen. On examination his abdomen is nontender, soft, low suspicion for acute surgical abdomen. On review of his medical record he was last treated for constipation in September of 2023 with a Fleet enema, and subsequently had excellent results from this, was able to be discharged home with advised met to take MiraLax and outpatient follow-up with PCP. Evaluation does not appear to have any notable stool within the rectal vault that would be amenable to manual disimpaction, plan for fleets enema on re-evaluation. At this time would defer CT of the abdomen and pelvis given his generally benign abdominal examination. He is tolerating oral intake and is without nausea and vomiting, I have a lower suspicion for bowel obstruction. I reviewed the KUB image from outpatient setting earlier today, I do not see evidence of obstructive bowel gas pattern. Differential Diagnosis Differential Diagnoses: The differential diagnosis associated with the presentation includes ( See narrative above) Admission/Observation Consideration of admission/observation: Escalation of care including admission/observation considered ( see narrative above) Lab Data MDM Lab Attestation statement: I reviewed the patient's lab results. CBC is without leukocytosis, has a mild normocytic anemia that does not meet transfusion criteria, no thrombocytopenia. No electrolyte derangement. No DARIUS. LFTs overall unremarkable, 07/07/24 11:13 07/07/24 11:13 Labs: Lab Results 07/07/24 Range/Units 11:13 WBC 8.3 (4.8-10.8) X10*3/uL RBC 4.06 L (4.60-5.80) X10*6/uL Hgb 13.3 L (14.0-18.0) g/dl Hct 39.1 L (42.0-52.0) % MCV 96.3 (80.0-98.0) fL MCH 32.8 (27.0-33.0) pg MCHC 34.0 (31.0-36.0) g/dl RDW 13.5 (11.0-16.0) % Plt Count 195 (160-400) X10*3/uL MPV 9.1 L (9.4-12.4) fL Immature Gran % (Auto) 0.4 (0.0-0.4) % Neut % (Auto) 77.3 H (45-73) % Lymph % (Auto) 12.1 L (20-40) % Floyd % (Auto) 8.1 (2-11) % Eos % (Auto) 1.7 (0-4) % Baso % (Auto) 0.4 (0-2) % Lymph # (Auto) 1.0 L (1.2-4.9) X10*3/uL Floyd # (Auto) 0.7 (0.1-1.2) X10*3/uL Eos # (Auto) 0.1 (0.0-0.4) X10*3/uL Baso # (Auto) 0.0 (0.0-0.2) X10*3/uL Abs Immat Gran (auto) 0.03 (0.00-0.03) X10*3/uL Absolute Neuts (auto) 6.4 (2.0-8.3) x10*3/uL Absolute Nucleated RBC 0.000 (0.0-0.012) X10*3/uL Nucleated RBC % (auto) 0.0 (0.0-0.2) /100WBC Sodium 140 (135-145) mmol/L Potassium 4.3 (3.3-5.1) mmol/L Chloride 105 (96-108) mmol/L Carbon Dioxide 29 (22-29) mmol/L Anion Gap 10 L (12-20) BUN 13 (9-16) mg/dL Creatinine 0.73 (0.5-1.4) mg/dL Estim Creat Clear Calc 87.5 Estimated GFR > 60 Random Glucose 92 (60-115) mg/dL Calcium 9.0 (8.4-10.2) mg/dL Total Bilirubin 0.5 (0.0-1.0) mg/dL AST 27 (5-37) U/L ALT 26 (0-40) U/L Alkaline Phosphatase 51 (39-117) U/L Total Protein 6.9 (6.5-8.0) g/dL Albumin 3.9 (3.5-5.0) g/dL Lipase 6 L (8-78) U/L External Record Review External record reviewed: Outpatient record and Prior outpatient radiology ( see narrative above) Tests considered The following testing was considered but not selected: defer CT abdomen and pelvis see narrative above Prescription Management I considered prescription management with: Other ( laxative) Chronic Conditions Patient?s care impacted by: Other ( see narrative above) Discharge Plan Discharge Clinical Impression: Constipation Qualifiers: Constipation type: unspecified constipation type Qualified Code(s): K59.00 - Constipation, unspecified Patient Disposition: Home, Self-Care Instructions: Constipation (ED), High Fiber Diet (ED) Additional Instructions: You were evaluated in the emergency department today for constipation which was relieved with an enema. As discussed I think it would be beneficial for you to take MiraLax daily. Please mix the powder into a large glass of water and be sure that you are staying well hydrated throughout the day. If you develop any episodes of diarrhea you may withhold the MiraLax. Return to emergency department any new or worsening symptoms or concerns. Prescriptions: New polyethylene glycol 3350 [Miralax] 17 gram/dose powder 17 g PO DAILY Qty: 119 0RF No Action diltiazem HCl 180 mg capsule,extended release 24hr 180 mg PO DAILY Qty: 90 1RF Xarelto 20 mg tablet 20 mg PO QPM Qty: 90 3RF lidocaine 5 % cream 1 appl topical BID PRN (Reason: pain) Qty: 15 0RF diclofenac sodium 1 % gel 1 ea topical QID albuterol sulfate 90 mcg/actuation HFA aerosol inhaler 2 puff inhalation Q4H PRN (Reason: wheezing) ascorbic acid (vitamin C) 500 mg capsule PO nitric oxide gas 100 PPM gas inhalation tamsulosin 0.4 mg capsule 0.4 mg PO BID atorvastatin 20 mg tablet 20 mg PO DAILY olopatadine 0.1 % drops 1 drp ophthalmic (eye) ONCE carboxymethylcellulose sodium 0.5 % drops ophthalmic (eye) levetiracetam 1,000 mg tablet 750 mg PO BID furosemide 20 mg tablet 20 mg PO DAILY ketotifen fumarate [Eye Itch Relief] 0.025 % (0.035 %) drops ophthalmic (eye) nitroglycerin 0.3 mg tablet, sublingual sublingual citalopram 40 mg tablet 40 mg PO DAILY Referrals: Grabiel Kasper MD [Primary Care Provider] - Print Language: Burkinan
[2024-07-07 11:01] VITALS: BP 135/67; PULSE 63; RESP 20; TEMP 36.8; O2SAT 95; BMI 31.2
--- OUTSIDE RECORDS SUMMARY | 2024-07-07 11:14 | XMS_ITS | Continuity of Care Document ---
Author Name [facility] Organization [facility] Care Team Providers Care Supersonic Engineer Name Role Phone [facility] Unavailable Unavailable Problems Combined list of problems from Department of Defense and Veterans Affairs facilities. It does not include entries that were removed or entered in error. Problem Status Onset Date Problem Type Date of Resolution Comments Source Atrial fibrillation Active Condition Oct 05, 2016 Entered By: MALGORZATA CREWS Comment: jennifer. cardiology [facility]. 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 on [facility], sees Dr. Son [facility] [...] TWICE DAILY ORAL ACTIVE JERRY NAVARRO 2016 [facility] ALBUTEROL 90MCG/ACTUA T (CFC-F) INHL,ORAL,8 .5GM DOSE COUNTER INHALE 2 PUFFS BY MOUTH EVERY 4 HOURS NEEDED RESPIR ATORY (INHAL ATION) ACTIVE ELEONORA, [facility] 2016 [facility] ATORVASTATI N CA 40MG TAB TAKE ONE-HALF TABLET BY MOUTH AT BEDTIME ORAL ACTIVE FURCOLO,T ROQUE 2023 [facility] carboxymeth ylcel 0.5% EYE DROP [2 X15ML] INSTILL 1 DROP INTO EACH EYE FOUR TIMES A DAY 03/16/2024 [id number] VIVI WARNER 2023 15 [facility] CARBOXYMETH YLCELLULOSE NA 0.5% SOLN,OPH INSTILL 1 DROP INTO EACH EYE FOUR TIMES A DAY OPHTHA LMIC 03/16/2024 [id number] VIVI WARNER 2022 15 [facility] CITALOPRAM HYDROBROMID E 40MG TAB TAKE ONE TABLET BY MOUTH ONCE DAILY ORAL ACTIVE FURCOLO,T ROQUE [facility] DILTIAZEM HCL 90MG 12HR CAP,SA TAKE 2 CAPSULES BY MOUTH DAILY ORAL ACTIVE [facility]A,[facility] FUROSEMIDE 20MG TAB TAKE ONE TABLET BY MOUTH ONCE DAILY NEEDED ORAL ACTIVE FURCOLO,T ROQUE 2023 [facility] KETOTIFEN 0.025 % EYE DROP [10 ML] INSTILL 1 DROP INTO EACH EYE EVERY 12 HOURS FOR ALLERGIC CONJUNCT IVITIS (IF YOU WEAR CONTACT LENSES, WAIT 10 MINUTES BEFORE INSERTIN G LENSES) 11/17/2023 [id number] SHALONDA KOENIG E 2023 15 [facility] KETOTIFEN 0.025% SOLN,OPH INSTILL 1 DROP INTO EACH EYE EVERY 12 HOURS FOR ALLERGIC CONJUNCT IVITIS (IF YOU WEAR CONTACT LENSES, WAIT 10 MINUTES BEFORE INSERTIN G LENSES) OPHTHA LMIC ACTIVE 01/21/2025 [id number] FURCOLO,T ROQUE 2023 15 [facility] KETOTIFEN 0.025% SOLN,OPH INSTILL 1 DROP INTO EACH EYE EVERY 12 HOURS FOR ALLERGIC CONJUNCT IVITIS (IF YOU WEAR CONTACT LENSES, WAIT 10 MINUTES BEFORE INSERTIN G LENSES) OPHTHA LMIC DISCONT INUED 11/17/2023 [id number] 4 Helena KOENIG NDREW E 2022 15 [facility] LEVETIRACET AM 500MG TAB TAKE TWO TABLETS BY MOUTH TWICE DAILY ORAL ACTIVE FURCOLO,T ROQUE 2023 [facility] MINERAL OIL,LIGHT/P ETROLATUM (PF) OINT,OPH APPLY THIN RIBBON INTO EACH EYE AT BEDTIME FOR DRY EYE OPHTHA LMIC 02/16/2024 [id number] 4 Helena KOENIG NDREW E 2022 3 [...] ONCE DAILY ORAL ACTIVE FURCOLO,T ROQUE [facility] TAMSULOSIN HCL 0.4MG CAP TAKE 1 CAPSULE BY MOUTH ONCE DAILY ORAL ACTIVE FURCOLO,T ROQUE 2023 [facility] UMECLIDINIU M 62.5MCG/ALFA ANTEROL 25MCG/ACTUA T INH,ORAL,30 D INHALE 1 INHALATI ON BY MOUTH ONCE DAILY RESPIR ATORY (INHAL ATION) ACTIVE FURCOLO,T ROQUE 2023 [facility] Allergies, Adverse Reactions, Alerts Combined list of allergies from Department of Defense and Veterans Affairs facilities. It does not include entries that were removed or entered in error. Substance Category Reaction Severity Reaction type Status Date Reported Comments Source Codeine Drug allergy (disorder) active 7 [facility] CODEINE Propensity to adverse reactions to drug (finding) active 7 [facility] [place] [facility] Hydrocodone Drug allergy (disorder) Anxiety active 7 [facility] HYDROCODONE Drug allergy (disorder) active 4 [facility] Piroxicam Drug allergy (disorder) active 7 [facility] PIROXICAM Propensity to adverse reactions to drug (finding) [facility] VICODIN Propensity to adverse reactions to drug (finding) Anxiety active 7 [facility] [place] [facility] Immunizations Combined list of available immunizations from the Department of Defense and Veterans Affairs facilities. Immunization Series Date Given Administered By Site Reaction Lot Number CVX Code Drug Whizzer Status Comments Source INFLUENZA, UNSPECIFIED FORMULATION 2022 88 complet ed [facility] COVID-19 (MODERNA), MRNA, LNP-S, PF, 100 MCG/0.5 ML DOSE 2 2020 207 complet ed MOD; [id number]; 1 [facility] COVID-19 (MODERNA), MRNA, LNP-S, PF, 100 MCG/0.5 ML DOSE 1 2020 207 complet ed MOD; [id number]; 1 [facility] [...] CONJUGATE PCV 13 2016 133 complet ed [place] [facility] FLU,3 YRS (HISTORICAL) 2015 88 complet ed [place] - High dose [facility] PNEUMOCOCCAL CONJUGATE PCV 13 2015 133 complet ed [place] [facility] ZOSTER (HISTORICAL) 2015 121 complet ed [place] [facility] TDAP 2015 115 complet ed [place] [facility] FLU,3 YRS (HISTORICAL) 2014 88 complet ed [place] [facility] FLU,3 YRS (HISTORICAL) 2013 88 complet ed [place] [facility] PNEUMOCOCCAL CONJUGATE PCV 13 2013 133 complet ed [place] [facility] FLU,3 YRS (HISTORICAL) 2012 88 complet ed [place] [facility] TDAP 2012 115 complet ed [place] [facility] FLU,3 YRS (HISTORICAL) 2011 88 complet ed [place] [facility] FLU,3 YRS (HISTORICAL) 2010 88 complet ed [place] [facility] TD(ADULT) UNSPECIFIED FORMULATION 2009 139 complet ed [place] [facility] FLU,3 YRS (HISTORICAL) 2009 88 complet ed [place] [facility] FLU,3 YRS (HISTORICAL) 2009 88 complet ed [place] -[id number] demic flu [facility] FLU,3 YRS (HISTORICAL) 2008 88 complet ed [place] [facility] ZOSTER (HISTORICAL) 2007 121 complet ed [place] [facility] FLU,3 YRS (HISTORICAL) 2007 88 complet ed [place] [facility] FLU,3 YRS (HISTORICAL) 2006 88 complet ed [place] [facility] FLU,3 YRS (HISTORICAL) 2005 88 complet ed [place] [facility] FLU,3 YRS (HISTORICAL) 2004 88 complet ed [place] [facility] PNEUMOCOCCAL CONJUGATE PCV 13 2004 133 complet ed [place] [facility] TD(ADULT) UNSPECIFIED FORMULATION 2003 139 complet ed [place] [facility] Vital [...] [facility] EYE EXAM ESTABLISH PATIENT [id number] Diagnos is: ICD-10- CM H04.123 Dry eye syndrom e of bilater al lacrima l glands< br/> IGLESIA KOENIG JOHN PAUL E 02/15 [facility] Outpatient Encounter [id number] 03/05 [facility] Out[facility]counter [id number] 03/08 [facility] Out[facility] Encounter [id number] 03/13 [facility] EAR IMPRESSION [id number] Diagnos is: ICD-10- CM Z46.1 Encount er for fitting and adjustm ent of hearing aid<br/ > Preet ANN 03/16 [facility] REPAIR & ADJUST SPECTACLES [id number] Diagnos is: ICD-10- CM Z46.0 Encount er for fit/adj st of spectac les and contact lenses< br/> RICHIE KIDD 03/17 [facility] DETERMINE REFRACTIVE STATE [id number] Diagnos is: ICD-10- CM H43.813 Vitreou s degener atsul[place]an [place]
VIVI WARNER 03/17 [facility] Out[facility] En[facility] [id number] 03/25 [facility] Out[facility] Encounter [id number] 03/27 [facility] Out[facility] Encounter [id number] 04/04 [facility] Out[facility] Encounter [id number] 05/03 [facility] Out[facility] Encounter [id number] 06/03 [facility] Out[facility] Encounter [id number] 06/17 [facility] HEARING AID REPAIR/MOD IFYING [id number] Diagnos is: ICD-10- CM Z46.1 Encount er for fitting and adjustm ent of hearing aid<br/ > RAPHAEL CALLE 07/01 [facility] Out[facility] En[facility] [id number] 07/20 [facility] Out[facility] Encounter [id number] 07/21 [facility] Out[facility] Encounter [id number] 07/23 [facility] INTRM OPH EXAM EST PATIENT [id number] Diagnos is: ICD-10- CM 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<br/ > VIVI WARNER 07/30 [facility] Out[facility] Encounter [id number] 07/30 [facility] Out[facility] Encounter [id number] 08/01 [facility] Out[facility] Encounter [id number] 08/19 [facility] HEARING AID REPAIR/MOD IFYING [id number] Diagnos is: ICD-10- CM Z46.1 Encount er for fitting and adjustm ent of hearing aid<br/ > HUBER ESPINOZA 10/10 [facility] Out[facility] Encounter [id number] SHAINA TERRAZAS 10/24 [facility] Out[facility] Encounter [id number] 10/28 [facility] OFFICE O/P NEW [place] 60 MIN [id number] Diagnos is: ICD-10- CM J44.9 Chronic obstruc tive pulmona ry disease , unspeci fied
FURCOLO,TI NA 11/15 [facility] En[facility] [id number] 12/02 [facility] Out[facility] Encounter [id number] 12/05 [facility] Out[facility] Encounter [id number] 12/14 [facility] Out[facility] Encounter [id number] 12/24 [facility] HEARING AID FITTING/CH ECKING [id number] Diagnos is: ICD-10- CM Z46.1 Encount er for fitting and adjustm ent of hearing aid<br/ > Preet ANN 12/26 [facility] OFFICE O/P EST LOW 20 MIN [id number] Diagnos is: ICD-10- CM K59.00 Constip ation, unspeci fied
FURCOLO,TI NA 12/30 [facility] En[facility] [id number] 01/20 [facility] Out[facility] Encounter [id number] 01/26 [facility] Out[facility] Encounter [id number] 02/03 [facility] Out[facility] Encounter [id number] 02/03 [facility] Out[facility] Encounter [id number] 02/03 [facility] Out[facility] Encounter [id number] 02/07 [facility] INTRM OPH EXAM EST PATIENT [id number] Diagnos is: ICD-10- CM 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
VIVI WARNER 02/09 [facility] Out[facility] Encounter [id number] 02/09 [facility] Out[facility] Encounter [id number] 05/23 [facility] Out[facility] Encounter [id number] 06/22 [facility] Out[facility] Encounter [id number] 07/01 [facility] Encounter [id number]/05 [facility] Social History Combined list of available smoking, [...] VA-TOBACCO QUIT 15 YRS OR MORE 08/23/2019 [facility] History of tobacco use VA-TOBACCO FORMER USER 06/28/2018 [facility] History of tobacco use QUIT TOBACCO USE > 7 YEARS AGO 10/14/2017 [facility] History of tobacco use QUIT TOBACCO USE > 7 YEARS AGO 10/05/2016 [facility] This section is an empty social history section. DoD Plan of Care List of future care activities from Department of Veterans Affairs facilities. Additional future care activities may be listed in the Assessment and Plan section. Date/Time Care Activity Care Activity Detail Facili ty 07/10/2024 AMBULATORY - MEDICINE AMBULATORY - [facility] 11/13/2024 AMBULATORY - MEDICINE AMBULATORY - [facility]IC[facility] 06/30/2024 Laboratory - Home Therapy Teacher ry Order BASIC METABOLIC PANEL (non-fasting) BLOOD (SST-SERUM) [facility] 06/30/2024 Laboratory - Home Therapy Teacher ry Order CBC BLOOD (LAV-BLOOD) [facility] 06/30/2024 Laboratory - Home Therapy Teacher ry Order TSH BLOOD (SST-SERUM) [facility] 06/30/2024 Laboratory - Home Therapy Teacher ry Order LIPID PANEL, NON FASTING BLOOD (SST-SERUM) [facility] Advance Directives List of completed, amended, or rescinded Advance Directives on record at Department of [facility] facilities. An actual copy of the Directive is not included. Date Advance Directive Provider Source 11/16/2023 ADVANCE DIRECTIVE MARC METZGER [facility]
[2024-07-07 11:19] LABS: Basophils Percent Auto 0.4 % (0-2); Eosinophils Absolute Auto 0.1 X10*3/uL (0.0-0.4); Eosinophils Percent Auto 1.7 % (0-4); Hematocrit 39.1 % (42.0-52.0); Hemoglobin 13.3 g/dl (14.0-18.0); Imm Gran Abs Auto 0.03 X10*3/uL (0.00-0.03); Imm Gran Pct Auto 0.4 % (0.0-0.4); Lymphocytes Percent Auto 12.1 % (20-40); MANUAL DIFF FLAG NO; Mean Corpuscular Hemoglobin 32.8 pg (27.0-33.0); Mean Corpuscular Volume 96.3 fL (80.0-98.0); Mean Platelet Volume 9.1 fL (9.4-12.4); Monocytes Absolute Auto 0.7 X10*3/uL (0.1-1.2); Monocytes Percent Auto 8.1 % (2-11); Neutrophils Absolute Auto 6.4 x10*3/uL (2.0-8.3); Neutrophils Percent Auto 77.3 % (45-73); Platelet Count 195 X10*3/uL (160-400); Red Blood Count 4.06 X10*6/uL (4.60-5.80); Red Cell Distribution Width 13.5 % (11.0-16.0); White Blood Count 8.3 X10*3/uL (4.8-10.8)
[2024-07-07 11:34] LABS: Alanine Aminotransferase 26 U/L (0-40); Albumin Level 3.9 g/dL (3.5-5.0); Alkaline Phosphatase 51 U/L (39-117); Anion Gap 10 (12-20); Aspartate Amino Transferase 27 U/L (5-37); Bilirubin Total 0.5 mg/dL (0.0-1.0); Blood Urea Nitrogen 13 mg/dL (9-16); Carbon Dioxide 29 mmol/L (22-29); Chloride 105 mmol/L (96-108); Creatinine Clr Calc Pharmacy 87.5; Estimated Glomerular Filt Rate > 60; Glucose Random 92 mg/dL (60-115); Lipase 6 U/L (8-78); Potassium 4.3 mmol/L (3.3-5.1); Sodium 140 mmol/L (135-145); Total Protein 6.9 g/dL (6.5-8.0)
[2024-07-07 13:09] VITALS: BP 148/61; PULSE 70; RESP 16; O2SAT 93
--- OUTSIDE RECORDS SUMMARY | 2024-07-07 13:19 | XMS_ITS | Continuity of Care Document ---
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 It does not include entries that were removed or entered in error. Problem Status Onset Date Problem Type Date of Resolution Comments Source Atrial fibrillation Active Condition Oct 05, 2016 Entered By: MALGORZATA CREWS Comment: jennifer. cardiology [facility]. 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 on [facility], sees Dr. Son [facility] [...] TWICE DAILY ORAL ACTIVE JERRY NAVARRO 2016 [facility] ALBUTEROL 90MCG/ACTUA T (CFC-F) INHL,ORAL,8 .5GM DOSE COUNTER INHALE 2 PUFFS BY MOUTH EVERY 4 HOURS NEEDED RESPIR ATORY (INHAL ATION) ACTIVE ELEONORA, [facility] 2016 [facility] ATORVASTATI N CA 40MG TAB TAKE ONE-HALF TABLET BY MOUTH AT BEDTIME ORAL ACTIVE FURCOLO,T ROQUE 2023 [facility] carboxymeth ylcel 0.5% EYE DROP [2 X15ML] INSTILL 1 DROP INTO EACH EYE FOUR TIMES A DAY 03/16/2024 [id number] VIVI WARNER 2023 15 [facility] CARBOXYMETH YLCELLULOSE NA 0.5% SOLN,OPH INSTILL 1 DROP INTO EACH EYE FOUR TIMES A DAY OPHTHA LMIC 03/16/2024 [id number] VIVI WARNER 2022 15 [facility] CITALOPRAM HYDROBROMID E 40MG TAB TAKE ONE TABLET BY MOUTH ONCE DAILY ORAL ACTIVE FURCOLO,T ROQUE 2023 [facility] DILTIAZEM HCL 90MG 12HR CAP,SA TAKE 2 CAPSULES BY MOUTH DAILY ORAL ACTIVE ELEONORA,MEREDITH [facility] 2016 [facility] FUROSEMIDE 20MG TAB TAKE ONE TABLET BY MOUTH ONCE DAILY NEEDED ORAL ACTIVE FURCOLO,T ROQUE 2023 [facility] KETOTIFEN 0.025 % EYE DROP [10 ML] INSTILL 1 DROP INTO EACH EYE EVERY 12 HOURS FOR ALLERGIC CONJUNCT IVITIS (IF YOU WEAR CONTACT LENSES, WAIT 10 MINUTES BEFORE INSERTIN G LENSES) 11/17/2023 [id number] SHALONDA KOENIG E 2023 15 [facility] KETOTIFEN 0.025% SOLN,OPH INSTILL 1 DROP INTO EACH EYE EVERY 12 HOURS FOR ALLERGIC CONJUNCT IVITIS (IF YOU WEAR CONTACT LENSES, WAIT 10 MINUTES BEFORE INSERTIN G LENSES) OPHTHA LMIC ACTIVE 01/21/2025 [id number] FURCOLO,T ROQUE 2023 15 [facility] KETOTIFEN 0.025% SOLN,OPH INSTILL 1 DROP INTO EACH EYE EVERY 12 HOURS FOR ALLERGIC CONJUNCT IVITIS (IF YOU WEAR CONTACT LENSES, WAIT 10 MINUTES BEFORE INSERTIN G LENSES) OPHTHA LMIC DISCONT INUED 11/17/2023 [id number] Helena KOENIG NDREW E 2022 15 [facility] LEVETIRACET AM 500MG TAB TAKE TWO TABLETS BY MOUTH TWICE DAILY ORAL ACTIVE FURCOLO,T ROQUE 2023 [facility] MINERAL OIL,LIGHT/P ETROLATUM (PF) OINT,OPH APPLY THIN RIBBON INTO EACH EYE AT BEDTIME FOR DRY EYE OPHTHA LMIC 02/16/2024 [id number] [place] KOENIG NDREW E 2022 3 [...] ONCE DAILY ORAL ACTIVE FURCOLO,T ROQUE 2023 [facility] TAMSULOSIN HCL 0.4MG CAP TAKE 1 CAPSULE BY MOUTH ONCE DAILY ORAL ACTIVE FURCOLO,T ROQUE 2023 [facility] UMECLIDINIU M 62.5MCG/ALFA ANTEROL 25MCG/ACTUA T INH,ORAL,30 D INHALE 1 INHALATI ON BY MOUTH ONCE DAILY RESPIR ATORY (INHAL ATION) ACTIVE FURCOLO,T ROQUE 2023 [facility] Allergies, Adverse Reactions, Alerts Combined list of allergies from Department of Defense and Veterans Affairs facilities. It does not include entries that were removed or entered in error. Substance Category Reaction Severity Reaction type Status Date Reported Comments Source Codeine Drug allergy (disorder) active 7 [facility] CODEINE Propensity to adverse reactions to drug (finding) active 7 [facility] [place] [facility] Hydrocodone Drug allergy (disorder) Anxiety active 7 [facility] HYDROCODONE Drug allergy (disorder) active 4 [facility] Piroxicam Drug allergy (disorder) active 7 [facility] PIROXICAM Propensity to adverse reactions to drug (finding) active 7 [facility] VICODIN Propensity to adverse reactions to drug (finding) Anxiety active 7 [facility] [place] [facility] Immunizations Combined list of available immunizations from the Department of Defense and Veterans Affairs facilities. Immunization Series Date Given Administered By Site Reaction Lot Number CVX Code Drug Health Assessment And Treatment Teacher Status Comments Source INFLUENZA, UNSPECIFIED FORMULATION 2022 88 complet ed [facility] COVID-19 (MODERNA), MRNA, LNP-S, PF, 100 MCG/0.5 ML DOSE 2 2020 207 complet ed MOD; [id number]; 1 [facility] COVID-19 (MODERNA), MRNA, LNP-S, PF, 100 MCG/0.5 ML DOSE 1 2020 207 complet ed MOD; [id number]; 1 [facility] [...] CONJUGATE PCV 13 2016 133 complet ed [place] [facility] FLU,3 YRS (HISTORICAL) 2015 88 complet ed [place] - High dose [facility] PNEUMOCOCCAL CONJUGATE PCV 13 2015 133 complet ed [place] [facility] ZOSTER (HISTORICAL) 2015 121 complet ed [place] [facility] TDAP 2015 115 complet ed [place] [facility] FLU,3 YRS (HISTORICAL) 2014 88 complet ed [place] [facility] FLU,3 YRS (HISTORICAL) 2013 88 complet ed [place] [facility] PNEUMOCOCCAL CONJUGATE PCV 13 2013 133 complet ed [place] [facility] FLU,3 YRS (HISTORICAL) 2012 88 complet ed [place] [facility] TDAP 2012 115 complet ed [place] [facility] FLU,3 YRS (HISTORICAL) 2011 88 complet ed [place] [facility] FLU,3 YRS (HISTORICAL) 2010 88 complet ed [place] [facility] TD(ADULT) UNSPECIFIED FORMULATION 2009 139 complet ed [place] [facility] FLU,3 YRS (HISTORICAL) 2009 88 complet ed [place] [facility] FLU,3 YRS (HISTORICAL) 2009 88 complet ed [place] -[id number] demic flu [facility] FLU,3 YRS (HISTORICAL) 2008 88 complet ed [place] [facility] ZOSTER (HISTORICAL) 2007 121 complet ed [place] [facility] FLU,3 YRS (HISTORICAL) 2007 88 complet ed [place] [facility] FLU,3 YRS (HISTORICAL) 2006 88 complet ed [place] [facility] FLU,3 YRS (HISTORICAL) 2005 88 complet ed [place] [facility] FLU,3 YRS (HISTORICAL) 2004 88 complet ed [place] [facility] PNEUMOCOCCAL CONJUGATE PCV 13 2004 133 complet ed [place] [facility] TD(ADULT) UNSPECIFIED FORMULATION 2003 139 complet ed [place] [facility] Vital [...] [facility] EYE EXAM ESTABLISH PATIENT [id number] Diagnos is: ICD-10- CM H04.123 Dry eye syndrom e of bilater al lacrima l glands< br/> IGLESIA KOENIG JOHN PAUL E 02/15 [facility] Outpatient Encounter [id number] 03/05 [facility] Out[facility] Encounter [id number] 03/08 [facility] Out[facility] Encounter [id number] 03/13 [facility] EAR IMPRESSION [id number] Diagnos is: ICD-10- CM Z46.1 Encount er for fitting and adjustm ent of hearing aid<br/ > Preet ANN 03/16 [facility] REPAIR & ADJUST SPECTACLES [id number] Diagnos is: ICD-10- CM Z46.0 Encount er for fit/adj st of spectac les and contact lenses< br/> RICHIE KIDD 03/17 [facility] DETERMINE REFRACTIVE STATE [id number] Diagnos is: ICD-10- CM H43.813 Vitreou s degener atsulaiman [place] al
VIVI WARNER 03/17 [facility] Out[facility] Encounter [id number] 03/25 [facility] Out[facility] En[facility] [id number] 03/27 [facility] Out[facility] Encounter [id number] 04/04 [facility] Out[facility] Encounter [id number] 05/03 [facility] Out[facility] Encounter [id number] 06/03 [facility] Out[facility] Encounter [id number] 06/17 [facility] HEARING AID REPAIR/MOD IFYING [id number] Diagnos is: ICD-10- CM Z46.1 Encount er for fitting and adjustm ent of hearing aid<br/ > RAPHAEL CALLE 07/01 [facility] Out[facility] En[facility] [id number] 07/20 [facility] Out[facility] Encounter [id number] 07/21 [facility] Out[facility] Encounter [id number] 07/23 [facility] INTRM OPH EXAM EST PATIENT [id number] Diagnos is: ICD-10- CM 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<br/ > VIVI WARNER 07/30 [facility] Out[facility] Encounter [id number] 07/30 [facility] Out[facility] Encounter [id number] 08/01 [facility] Out[facility] Encounter [id number] 08/19 [facility] HEARING AID REPAIR/MOD IFYING [id number] Diagnos is: ICD-10- CM Z46.1 Encount er for fitting and adjustm ent of hearing aid<br/ > HUBER ESPINOZA 10/10 [facility] Out[facility] Encounter [id number] SHAINA TERRAZAS 10/24 [facility] Out[facility] Encounter [id number] 10/28 [facility] OFFICE O/P NEW [place] 60 MIN [id number] Diagnos is: ICD-10- CM J44.9 Chronic obstruc tive pulmona ry disease , unspeci fied
FURCOLO,TI NA 11/15 [facility] Out[facility] En[facility] [id number] 12/02 [facility] Out[facility] Encounter [id number] 12/05 [facility] Out[facility] Encounter [id number] 12/14 [facility] Out[facility] Encounter [id number] 12/24 [facility] HEARING AID FITTING/CH ECKING [id number] Diagnos is: ICD-10- CM Z46.1 Encount er for fitting and adjustm ent of hearing aid<br/ > Preet ANN 12/26 [facility] OFFICE O/P EST LOW 20 MIN [id number] Diagnos is: ICD-10- CM K59.00 Constip ation, unspeci fied
FURCOLO,TI NA 12/30 [facility] Out[facility] En[facility] [id number] 01/20 [facility] Out[facility] Encounter [id number] 01/26 [facility] Out[facility] Encounter [id number] 02/03 [facility] Out[facility] Encounter [id number] 02/03 [facility] Out[facility] Encounter [id number] 02/03 [facility] Outpatient Encounter [id number] 02/07 [facility] INTRM OPH EXAM EST PATIENT [id number] Diagnos is: ICD-10- CM 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
VIVI WARNER 02/09 [facility] Out[facility] En[facility] [id number] 02/09 [facility] Out[facility] Encounter [id number] 05/23 [facility] Out[facility] Encounter [id number] 06/22 [facility] Out[facility] Encounter [id number] 07/01 [facility] Out[facility] Encounter [id number]/05 [facility] Social History Combined list of [...] VA-TOBACCO QUIT 15 YRS OR MORE 08/23/2019 [facility] History of tobacco use VA-TOBACCO FORMER USER 06/28/2018 [facility] History of tobacco use QUIT TOBACCO USE > 7 YEARS AGO 10/14/2017 [facility] History of tobacco use QUIT TOBACCO USE > 7 YEARS AGO 10/05/2016 [facility] [place] [facility] This section is an empty social history section. DoD Plan of Care List of future care activities from Department of Veterans Affairs facilities. Additional future care activities may be listed in the Assessment and Plan section. Date/Time Care Activity Care Activity Detail Facili ty 07/10/2024 AMBULATORY - MEDICINE AMBULATORY - [facility] 11/13/2024 AMBULATORY - MEDICINE AMBULATORY - [facility]IC[facility] 06/30/2024 Laboratory - Blood Typer ry Order BASIC METABOLIC PANEL (non-fasting) BLOOD (SST-SERUM) [facility] 06/30/2024 Laboratory - Blood Typer ry Order CBC BLOOD (LAV-BLOOD) [facility] 06/30/2024 Laboratory - Blood Typer ry Order TSH BLOOD (SST-SERUM) [facility] 06/30/2024 Laboratory - Blood Typer ry Order LIPID PANEL, NON FASTING BLOOD (SST-SERUM) [facility] Advance Directives List of completed, amended, or rescinded Advance Directives on record at Department of [facility] facilities. An actual copy of the Directive is not included. Date Advance Directive Provider Source 11/16/2023 ADVANCE DIRECTIVE [facility]
[2024-07-07] MEDS: Mineral OiL enema 133 ML ENEMA PR (15:23)
[2024-07-07 15:31] VITALS: BP 158/81; PULSE 59; RESP 16; TEMP 37.1; O2SAT 97
--- NOTE | 2024-07-07 16:22 | PC.NURSE ---
No relief after enema, provider alerted
[2024-07-07 17:41] LABS: Appearance Urine Clear; Color Urine Yellow; Glucose Urine UA Negative (Negative); Leukocyte Esterase Urine Negative (Negative); Nitrite Urine Negative (Negative); PH 7.5 (5.0-9.0); Specific Gravity - Urine 1.015 (1.005-1.025); Urine Blood Negative (Negative); Urine Ketones Negative (Negative); Urine Protein Negative (Neg-Trace)
[2024-07-07 18:05] VITALS: BP 158/81; PULSE 59; RESP 16; TEMP 37.1; O2SAT 97
== END 2024-07-07 18:10 | disposition home or self-care (01) ==
PROVIDERS: Registered Nurse Emergency; Emergency Provider Emergency Medicine Emergency Medical Services; PCP Family Medicine
DX: K59.00 Constipation, unspecified (principal); G40.909 Epilepsy, unspecified, not intractable, without status epilepticus; I25.10 Atherosclerotic heart disease of native coronary artery without angina pectoris; I48.0 Paroxysmal atrial fibrillation; Z79.899 Other long term (current) drug therapy; Z79.01 Long term (current) use of anticoagulants
CPT/HCPCS: 36415; 80053; 81003; 83690; 85025; 99284

== ENCOUNTER 2024-08-02 09:44 | Emergency (ER) | payer OTHER, SELFPAY ==
--- NOTE | 2024-08-02 | ECG_ITS ---
Test Reason : chest pain Blood Pressure : */* mmHG Vent. Rate : 60 BPM Atrial Rate : 60 BPM P-R Int : 232 ms QRS Dur : 84 ms QT Int : 410 ms P-R-T Axes : 84 -4 26 degrees QTcB Int : 410 ms Sinus rhythm with 1st degree A-V block Otherwise normal ECG When compared with ECG of 09-May-2024 07:38, No significant change was found Referred By: Generic ED Physician Electronically Signed By: Remington Johnson
--- NOTE | ~2024-08-02 | XR_ITS ---
EXAMINATION: XR CHEST CLINICAL INFORMATION: left sided chest pain COMPARISON: 04/10/2024, 12/15/2023. TECHNIQUE: 2 views of the chest were obtained. FINDINGS: Mildly elevated left hemidiaphragm. The cardiac, hilar, and mediastinal contours are normal. Aorta is mildly calcified but normal in contour. Diffuse pulmonary hyperaeration. Minimal left base scarring. The lungs are otherwise clear bilaterally. There is no pneumothorax or pleural effusion. There is no focal osseous or soft tissue abnormality. Degenerative changes in the spine and both shoulder joints. XR/XR chest 2V IMPRESSION: No active pulmonary disease. Electronically signed by: Germán Rooney MD 08/02/2024 10:55 AM DARLENE
[2024-08-02 10:03] LABS: MANUAL DIFF FLAG NO
[2024-08-02 10:06] VITALS: BP 132/64; PULSE 61; RESP 18; TEMP 36.6; O2SAT 96; BMI 32.5
[2024-08-02 10:07] LABS: Basophils Percent Auto 0.7 % (0-2); Eosinophils Absolute Auto 0.2 X10*3/uL (0.0-0.4); Eosinophils Percent Auto 3.1 % (0-4); Hematocrit 38.9 % (42.0-52.0); Hemoglobin 13.4 g/dl (14.0-18.0); Imm Gran Abs Auto 0.02 X10*3/uL (0.00-0.03); Imm Gran Pct Auto 0.3 % (0.0-0.4); Lymphocytes Absolute Auto 0.9 X10*3/uL (1.2-4.9); Lymphocytes Percent Auto 15.4 % (20-40); Mean Corpuscular HGB Conc 34.4 g/dl (31.0-36.0); Mean Corpuscular Hemoglobin 32.5 pg (27.0-33.0); Mean Corpuscular Volume 94.4 fL (80.0-98.0); Mean Platelet Volume 9.5 fL (9.4-12.4); Monocytes Absolute Auto 0.4 X10*3/uL (0.1-1.2); Neutrophils Absolute Auto 4.3 x10*3/uL (2.0-8.3); Neutrophils Percent Auto 73.5 % (45-73); Platelet Count 168 X10*3/uL (160-400); Red Blood Count 4.12 X10*6/uL (4.60-5.80); Red Cell Distribution Width 13.5 % (11.0-16.0); White Blood Count 5.8 X10*3/uL (4.8-10.8)
--- NOTE | 2024-08-02 10:07 | ED_ITS ---
HPI - Chest Pain General Chief Complaint: Chest Pain Stated Complaint: Chest Pain Time Seen by Provider: 08/02/24 10:07 Source: patient Mode of arrival: ambulatory Limitations: no limitations History of Present Illness ED Provider: RAJI URBANO PA-C HPI narrative: 83 year old male with pmhx significant for CAD, paroxysmal AFib on Xarelto presents to the ED today for evaluation of chest pain which began at 0830 this morning. States he was sitting at home when pain began. He was not exerting himself. Pain was a 4/10 at onset and has been improving. Currently 2/10. No radiation. Denies any associated palpitations or shortness of breath. Also endorses pain originating in his left hip, radiating down the leg. Denies any leg swelling. Denies injury/ trauma. Denies recent travel/ long car rides. Related Data Home Medications ?Medication ?Instructions ?Recorded ?Confirmed diclofenac sodium 1 % topical gel 1 ea topical QID 06/11/20 04/21/24 albuterol sulfate 90 mcg/actuation 2 puff inhalation Q4H PRN wheezing 12/12/20 04/21/24 aerosol inhaler ascorbic acid (vitamin C) 500 mg mg PO 05/22/21 04/21/24 capsule nitric oxide gas 100 PPM for ea inhalation 05/22/21 04/21/24 inhalation atorvastatin 20 mg tablet 20 mg PO DAILY 11/25/21 04/21/24 tamsulosin 0.4 mg capsule 0.4 mg PO BID 11/25/21 04/21/24 carboxymethylcellulose sodium 0.5 drp ophthalmic (eye) 03/12/22 04/21/24 % eye drops olopatadine 0.1 % eye drops 1 drp ophthalmic (eye) ONCE 03/12/22 04/21/24 citalopram 40 mg tablet 40 mg PO DAILY 04/19/23 04/21/24 levetiracetam 1,000 mg tablet 750 mg PO BID 04/19/23 04/21/24 furosemide 20 mg tablet 20 mg PO DAILY 12/02/23 04/21/24 ketotifen fumarate 0.025 % (0.035 drp ophthalmic (eye) 12/02/23 04/21/24 %) eye drops (Eye Itch Relief) nitroglycerin 0.3 mg sublingual mg sublingual 12/02/23 04/21/24 tablet Previous Rx's ?Medication ?Instructions ?Recorded lidocaine 5 % topical cream 1 appl topical BID PRN pain #15 05/12/22 grams diltiazem HCl 180 mg 180 mg PO DAILY #90 caps 05/09/24 capsule,extended release 24 hr rivaroxaban 20 mg tablet (Xarelto) 20 mg PO QPM #90 tabs 06/02/24 polyethylene glycol 3350 17 17 g PO DAILY #119 grams 07/07/24 gram/dose oral powder (Miralax) Allergies Allergy/AdvReac Type Severity Reaction Status Date / Time penicillin V Allergy Severe Hives Verified 08/02/24 10:07 piroxicam [PIROXICAM] Allergy Intermediate HIVES/SOB Verified 08/02/24 10:07 rofecoxib [From VIOXX] Allergy Intermediate HIVES/SOB Verified 08/02/24 10:07 Penicillins [PENICILLINS] Allergy Unknown UNKNOWN Verified 08/02/24 10:07 phenacetin [PHENACETIN] Allergy Unknown UNK Verified 08/02/24 10:07 From VICODIN Allergy Intermediate HIVES/SOB Uncoded 08/02/24 10:07 Review of Systems 2 Review of Systems: Constitutional: No fever, chills, fatigue, night sweats, weight changes ENT/Mouth: No ear pain, hearing loss, nasal congestion, sinus pain, rhinorrhea, sore throat Eyes: No eye pain, swelling, redness, vision changes, discharge Cardio: No palpitations, SCHAFFER, orthopnea, peripheral edema, +chest pain, +LLE pain Pulm: No SOB, cough, sputum, wheezing, dyspnea, hemoptysis GI: No nausea, vomiting, hematemesis, abdominal pain, diarrhea, constipation, hematochezia, melena : No irregular bleeding, dysuria, frequency, urgency, hesitancy, hematuria, flank pain, urinary flow changes, urinary incontinence or retention MSK: No back pain, neck pain, joint pain, myalgias Skin: No lesions, rashes Neuro: No weakness, numbness, paresthesias, LOC, dizziness, headache Psych: No anxiety/panic, depression, SI/HI, AH/VH All other systems reviewed and are negative. [facility] Past Medical History Attestation statement: The following information was validated with the patient. Source: old records reviewed and nursing notes reviewed Medical History Chronic anticoagulation CAD (coronary artery disease) Seizure disorder Paroxysmal atrial fibrillation HTN (hypertension) Surgical History History of left knee surgery History of right hip replacement History of ear surgery S/P skin biopsy Social History Social History Alcohol intake: current Alcohol intake frequency: holidays/special occasions only Alcohol type: beer Patient Tobacco Use Status: Former Tobacco user Years Smoked: 30 +/- Advance Directives: No Advance Directives Information Provided: Yes Do you have a plan to hurt others: No Plan Physical Exam 2 Vital Signs: Vital Signs: Last Vital Signs Temp 97.9 F 08/02/24 14:21 Pulse 63 08/02/24 14:21 Resp 21 H 08/02/24 14:21 BP 126/59 L 08/02/24 14:21 Pulse Ox 94 08/02/24 14:21 O2 Del Method Room Air 08/02/24 14:21 BMI result Body Mass Index 32.5 Vital signs stable General: Well appearing, in no acute distress. Skin: Warm, dry, intact. No rashes or lesions. Head: Normocephalic, atraumatic. EENT: Hearing is intact b/l. Conjunctiva clear. PERRLA. EOM intact. Moist mucous membranes.? Neck: Supple without LAD Cardiac: Chest wall symmetric. RRR. no jvd. Lungs: Normal respiratory effort without accessory muscle use. CTA bilaterally. No rales, rhonchi, or wheezes.? Abdomen: Soft, non-tender, non-distended. No rebound tenderness or guarding Back: No midline spinous or paraspinal tenderness. No step off deformity. Ext: Upper and lower extremities atraumatic, without tenderness, deformity, swelling or erythema. Full ROM throughout. no pitting edema. no calf tenderness b/l. Neuro: AOx3. Normal speech. Strength 5/5 intact throughout. No saddle anesthesia. Sensation intact to light touch. NV intact distally. Ambulating with steady gait. positive straight leg raise w/ left leg. Psych: Appropriate mood and affect. Responds appropriately to questions. Course Course Course Narrative: CBC without leukocytosis or left shift. Normocytic anemia, chronic when compared to priors. H&H above transfusion threshold. Chemistry without acute electrolyte abnormality requiring intervention. No DARIUS. Initial troponin 3.7. Delta troponin flat. BNP slightly elevated to 135. Patient was treated with 40 of IV Lasix. His lungs are clear, he was no pitting edema. Chest x-ray does not demonstrate effusion. I do not have concern for fluid overload at this time. Urine does not demonstrate infection. ekg showing sinus rhythm with first-degree AV block, rate of 60 beats per minute, QT 410, QTC 410, no acute ischemic changes or ST elevations. Unchanged from previous EKGs. >ON re-evaluation, patient reports he is completely asymptomatic. He has been ambulating with steady gait to the bathroom. no further episodes of chest pain. He is overall well-appearing. regarding his back pain, physical exam is consistent w/ sciatica. I feel he was safe for discharge at this time with outpatient cardiology follow-up. Both patient and his daughter are agreeable with this. Patient has remained stable throughout ED visit today. Discussed worrisome signs and symptoms and when to return to the ED. All questions answered at this time. Patient is agreeable with disposition and stable for discharge. Medications Administered Discontinued Medications Generic Name Dose Route Start Last Admin Trade Name Freq PRN Reason Stop Dose Admin Furosemide 40 mg 08/02/24 11:04 08/02/24 12:26 Furosemide 40 Mg/4 Ml Vial IVPUSH 08/02/24 11:05 40 mg ONCE ONE Administration Protocol Medical Decision Making Medical Decision Making [facility] Narrative: 83 year old male with pmhx significant for CAD, paroxysmal AFib on Xarelto presents to the ED today for evaluation of chest pain which began at 0830 this morning. Vital signs stable. Afebrile. Not hypoxic or tachycardic. He is nontoxic-appearing and in no acute distress. On exam, no signs of respiratory distress. Lungs are CTA bilaterally without crackles. RRR. No reproducible chest wall tenderness. No crepitus. No JVD or pitting edema. No calf tenderness bilaterally. No midline spinous tenderness or step-off deformity. Positive straight leg raise on left. Ambulating with steady gait. History without high risk features (not substernal, no exertional component, not relieved with rest).? Unremarkable echocardiogram on 03/24/2024. Exam without evidence of volume overload. EKG without signs of active ischemia. Given the timing of pain to ED presentation, plan to send delta troponin to evaluate for NSTEMI. Differential diagnosis also includes anemia, electrolyte abnormality, dehydration, CHF, arrhythmia costochondritis, pleuritis, sciatica. Unlikely fracture, cauda equina, Guillain-[place], epidural abscess, cord compression. Presentation not consistent with acute PE, pneumothorax, thoracic aortic dissection, cardiac effusion or tamponade, DVT. Plan: labs, troponin, EKG, CXR, reassessment Differential Diagnosis Differential Diagnoses: The differential diagnosis associated with the presentation includes as above. Admission/Observation not indicated. Lab Data MDM Lab Attestation statement: I reviewed the patient's lab results. as above. 08/02/24 09:59 08/02/24 09:59 Labs: Lab Results 08/02/24 08/02/24 08/02/24 Range/Units 09:59 10:28 13:23 WBC 5.8 (4.8-10.8) X10*3/uL RBC 4.12 L (4.60-5.80) X10*6/uL Hgb 13.4 L (14.0-18.0) g/dl Hct 38.9 L (42.0-52.0) % MCV 94.4 (80.0-98.0) fL MCH 32.5 (27.0-33.0) pg MCHC 34.4 (31.0-36.0) g/dl RDW 13.5 (11.0-16.0) % Plt Count 168 (160-400) X10*3/uL MPV 9.5 (9.4-12.4) fL Immature Gran % (Auto) 0.3 (0.0-0.4) % Neut % (Auto) 73.5 H (45-73) % Lymph % (Auto) 15.4 L (20-40) % [place] % (Auto) 7.0 (2-11) % Eos % (Auto) 3.1 (0-4) % Baso % (Auto) 0.7 (0-2) % Lymph # (Auto) 0.9 L (1.2-4.9) X10*3/uL [place] # (Auto) 0.4 (0.1-1.2) X10*3/uL Eos # (Auto) 0.2 (0.0-0.4) X10*3/uL Baso # (Auto) 0.0 (0.0-0.2) X10*3/uL Abs Immat Gran (auto) 0.02 (0.00-0.03) X10*3/uL Absolute Neuts (auto) 4.3 (2.0-8.3) x10*3/uL Absolute Nucleated RBC 0.000 (0.0-0.012) X10*3/uL Nucleated RBC % (auto) 0.0 (0.0-0.2) /100WBC Sodium 142 (135-145) mmol/L Potassium 3.9 (3.3-5.1) mmol/L Chloride 109 H (96-108) mmol/L Carbon Dioxide 28 (22-29) mmol/L Anion Gap 9 L (12-20) BUN 19 H (9-16) mg/dL Creatinine 0.81 (0.5-1.4) mg/dL Estim Creat Clear Calc 80.4 Estimated GFR > 60 Random Glucose 114 (60-115) mg/dL Calcium 8.8 (8.4-10.2) mg/dL Total Bilirubin 0.4 (0.0-1.0) mg/dL AST 21 (5-37) U/L ALT 15 (0-40) U/L Alkaline Phosphatase 56 (39-117) U/L Troponin I High Sens 3.7 3.4 (<3.5-35.0) ng/L B-Natriuretic Peptide 135 H (<100) pg/mL Total Protein 6.7 (6.5-8.0) g/dL Albumin 3.9 (3.5-5.0) g/dL Urine Color Yellow Urine Appearance Clear Urine pH 5.5 (5.0-9.0) Ur Specific [place] 1.010 (1.005-1.025) Urine Protein Negative (Neg-Trace) mg/dL Urine Glucose (UA) Negative (Negative) mg/dL Urine Ketones Negative (Negative) mg/dL Urine Blood Negative (Negative) Urine Nitrite Negative (Negative) Ur Leukocyte Esterase Negative (Negative) Independent Interpretation I performed an independent interpretation of an: EKG and Plain X-Ray Interpretation: The x-ray without focal consolidation or infiltrate. No effusion. ekg showing sinus rhythm with first-degree AV block, rate 60 beats per minute, no acute ischemic changes or ST elevations. Radiology Impression Discussion of test interpretation with radiology: I have reviewed the radiologist's reading. Radiologist Impression: EXAMINATION: XR CHEST CLINICAL INFORMATION: left sided chest pain COMPARISON: 04/10/2024, 12/15/2023. TECHNIQUE: 2 views of the chest were obtained. FINDINGS: Mildly elevated left hemidiaphragm. The cardiac, hilar, and mediastinal contours are normal. Aorta is mildly calcified but normal in contour. Diffuse pulmonary hyperaeration. Minimal left base scarring. The lungs are otherwise clear bilaterally. There is no pneumothorax or pleural effusion. There is no focal osseous or soft tissue abnormality. Degenerative changes in the spine and both shoulder joints. XR/XR chest 2V IMPRESSION: No active pulmonary disease. Electronically signed by: Germán Rooney MD 08/02/2024 10:55 AM [facility] [place], [place] Independent Historian Clinical information obtained from an independent historian. History obtained from or confirmed by: Other (daughter) External Record Review External record reviewed: Inpatient record, Office record, Outpatient record, Prior outpatient labs, Prior outpatient radiology, Primary care record and Outside ED record Prescription Management I considered prescription management with: Pain Medication Social Determinants Patient?s care significantly limited by Social Determinants of Health including: Other Social Determinant of Health Critical Care Time Critical Care Time Critical Care Time: No Discharge Plan Discharge Clinical Impression: Atypical chest pain, Elevated brain natriuretic peptide (BNP) level Patient Disposition: Home, Self-Care Instructions: Chest Pain (ED), Noncardiac Chest Pain (ED) Additional Instructions: You were evaluated in the Emergency Department today for chest pain. Your evaluation has shown no signs of medical conditions requiring emergent intervention at this time, however I recommend that you follow up with your primary care provider or your home energy inspector as soon as possible for further testing as an outpatient. If you do not have one, a referral has been provided. Please call them to make an appointment, they will not call you. Continue all home medications as prescribed. Return to the Emergency Department if you experience worsening or uncontrolled chest pain, shortness of breath, light headedness, feeling faint, nausea, vomiting, or any other concerning symptoms. Prescriptions: No Action diltiazem HCl 180 mg capsule,extended release 24hr 180 mg PO DAILY Qty: 90 1RF Xarelto 20 mg tablet 20 mg PO QPM Qty: 90 3RF lidocaine 5 % cream 1 appl topical BID PRN (Reason: pain) Qty: 15 0RF polyethylene glycol 3350 [Miralax] 17 gram/dose powder 17 g PO DAILY Qty: 119 0RF diclofenac sodium 1 % gel 1 ea topical QID albuterol sulfate 90 mcg/actuation HFA aerosol inhaler 2 puff inhalation Q4H PRN (Reason: wheezing) ascorbic acid (vitamin C) 500 mg capsule PO nitric oxide gas 100 PPM gas inhalation tamsulosin 0.4 mg capsule 0.4 mg PO BID atorvastatin 20 mg tablet 20 mg PO DAILY olopatadine 0.1 % drops 1 drp ophthalmic (eye) ONCE carboxymethylcellulose sodium 0.5 % drops ophthalmic (eye) levetiracetam 1,000 mg tablet 750 mg PO BID furosemide 20 mg tablet 20 mg PO DAILY ketotifen fumarate [Eye Itch Relief] 0.025 % (0.035 %) drops ophthalmic (eye) nitroglycerin 0.3 mg tablet, sublingual sublingual citalopram 40 mg tablet 40 mg PO DAILY Referrals: [facility] [place] [facility] [Provider Group] Grabiel Kasper MD [Primary Care Provider] - Interventions: ED Discharge Assessment Last Done: 08/02/24 14:21 Discharge Date/Time: 08/02/24 14:30 Print Language: Panamanian
[2024-08-02 10:22] LABS: Alanine Aminotransferase 15 U/L (0-40); Albumin Level 3.9 g/dL (3.5-5.0); Alkaline Phosphatase 56 U/L (39-117); Anion Gap 9 (12-20); Aspartate Amino Transferase 21 U/L (5-37); Bilirubin Total 0.4 mg/dL (0.0-1.0); Blood Urea Nitrogen 19 mg/dL (9-16); Calcium 8.8 mg/dL (8.4-10.2); Carbon Dioxide 28 mmol/L (22-29); Chloride 109 mmol/L (96-108); Creatinine Clr Calc Pharmacy 80.4; Estimated Glomerular Filt Rate > 60; Glucose Random 114 mg/dL (60-115); Potassium 3.9 mmol/L (3.3-5.1); Sodium 142 mmol/L (135-145); Total Protein 6.7 g/dL (6.5-8.0)
[2024-08-02 10:28] LABS: B Type Natriuretic Peptide 135 pg/mL (<100)
[2024-08-02 10:29] LABS: Troponin-I High Sensitivity 3.7 ng/L (<3.5-35.0)
[2024-08-02 10:51] LABS: Appearance Urine Clear; Color Urine Yellow; Glucose Urine UA Negative (Negative); Leukocyte Esterase Urine Negative (Negative); Nitrite Urine Negative (Negative); PH 5.5 (5.0-9.0); Urine Blood Negative (Negative); Urine Ketones Negative (Negative); Urine Protein Negative (Neg-Trace)
--- OUTSIDE RECORDS SUMMARY | 2024-08-02 12:06 | XMS_ITS | Continuity of Care Document ---
Author Name [facility] Organization [facility] Care Team Providers Care Mobile Pet Groomer Name Role Phone [facility] Unavailable Unavailable Problems Combined list of problems from Department of Defense and Veterans Affairs facilities. It does not include entries that were removed or entered in error. Problem Status Onset Date Problem Type Date of Resolution Comments Source Atrial fibrillation Active Condition Oct 05, 2016 Entered By: MALGORZATA CREWS Comment: jennifer. cardiology [facility]. 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 [facility] H/O: osteoarthritis Active Condition Oct 05, 2016 Entered By: MALGORZATA CREWS Comment: L knee chronic limitation in ROMOct 05, 2016 Entered By: MALGORZATA CREWS Comment: h/o R hip replacementOct 05, 2016 Entered By: MALGORZATA CREWS Comment: h/o L rotator cuff repairOct 05, 2016 Entered By: MALGORZATA CREWS Comment: h/o r ankle surgery related to trauma/fall [facility] Hepatitis C Active [...] By: POLLY CLIFFORD Comment: nonconvulsive seizures. on [facility], sees Dr. Son [facility] Sleep apnea Active Condition Jan 04, 2017 Entered By: MALGORZATA CREWS Comment: mild 01/02 [facility] Toxic polyneuropathy Active Condition [facility] Diagnosis: ICD-10-CM L71.8 Other rosacea Active Diagnosis [facility] [...] TWICE DAILY ORAL ACTIVE JERRY NAVARRO 2016 [facility] ALBUTEROL 90MCG/ACTUA T (CFC-F) INHL,ORAL,8 .5GM DOSE COUNTER INHALE 2 PUFFS BY MOUTH EVERY 4 HOURS NEEDED RESPIR ATORY (INHAL ATION) ACTIVE 2016 [facility] ATORVASTATI N CA 40MG TAB TAKE ONE-HALF TABLET BY MOUTH AT BEDTIME ORAL ACTIVE FURCOLO,T ROQUE 2023 [facility] CARBOXYMETH YLCELLULOSE NA 0.5% SOLN,OPH INSTILL 1 DROP INTO EACH EYE FOUR TIMES A DAY OPHTHA LMIC 03/16/2024 [id number] VIVI WARNER 2022 15 [facility] CITALOPRAM HYDROBROMID E 40MG TAB TAKE ONE TABLET BY MOUTH ONCE DAILY ORAL ACTIVE FURCOLO,T ROQUE 2023 [facility] DILTIAZEM HCL 90MG 12HR CAP,SA TAKE 2 CAPSULES BY MOUTH DAILY ORAL ACTIVE CREWS2016 [facility] EYELID CLEANSER,EY E SCRUB PAD USE 1 PAD TOPICALL Y ONCE DAILY TOPICA L ACTIVE 07/11/2025 [id number] 4 Rayne MARMOLEJO 2023 90 [facility] FUROSEMIDE 20MG TAB TAKE ONE TABLET BY MOUTH ONCE DAILY NEEDED ORAL ACTIVE FURCOLO,T ROQUE 2023 [facility] KETOTIFEN 0.025% SOLN,OPH INSTILL 1 DROP INTO EACH EYE EVERY 12 HOURS FOR ALLERGIC CONJUNCT IVITIS (IF YOU WEAR CONTACT LENSES, WAIT 10 MINUTES BEFORE INSERTIN G LENSES) OPHTHA LMIC ACTIVE 07/11/2025 [id number] 4 Rayne MARMOLEJO 2023 15 [facility] KETOTIFEN 0.025% SOLN,OPH INSTILL 1 DROP INTO EACH EYE EVERY 12 HOURS FOR ALLERGIC CONJUNCT IVITIS (IF YOU WEAR CONTACT LENSES, WAIT 10 MINUTES BEFORE INSERTIN G LENSES) OPHTHA LMIC DISCONT INUED 01/21/2025 [id number] FURCOLO,T ROQUE 2023 15 [facility] KETOTIFEN 0.025% SOLN,OPH INSTILL 1 DROP INTO EACH EYE EVERY 12 HOURS FOR ALLERGIC CONJUNCT IVITIS (IF YOU WEAR CONTACT LENSES, WAIT 10 MINUTES BEFORE INSERTIN G LENSES) OPHTHA LMIC DISCONT INUED 11/17/2023 [id number] 4 Helena KOENIG NDREW E 2022 15 [facility] LEVETIRACET AM 500MG TAB TAKE TWO TABLETS BY MOUTH TWICE DAILY ORAL ACTIVE FURCOLO,T ROQUE 2023 [facility] MINERAL OIL,LIGHT/P ETROLATUM (PF) OINT,OPH APPLY THIN RIBBON INTO EACH EYE AT BEDTIME FOR DRY EYE OPHTHA LMIC 02/16/2024 [id number] Helena KOENIG NDREW E 2022 3 [facility] MULTIVITAMI NS CAP/TAB TAKE ONE TABLET BY MOUTH DAILY ORAL ACTIVE JERRY NAVARRO 2016 [facility] NITROGLYCER IN 0.4MG TAB,SUBLING UAL DISSOLVE ONE TABLET UNDER THE TONGUE EVERY 5 MINUTES NEEDED SUBLIN GUAL ACTIVE FURCOLO,T ROQUE 2023 [facility] PEG-400 0.4%/PROPYL NGHIA GLYCOL 0.3% SOLN,OPH INSTILL 1 DROP INTO EACH EYE FOUR TIMES A DAY FOR DRY EYE OPHTHA LMIC ACTIVE 07/11/2025 [id number] 5 Rayne MRAMOLEJOELE 2023 45 [facility] PREDNISOLON E ACETATE 1% SUSP,OPH INSTILL 1 DROP INTO EACH EYE TWICE DAILY INFLAMMA TORY DRY EYE SHAKE WELL BEFORE USING OPHTHA LMIC ACTIVE 07/11/2025 [id number] 4 Rayne MARMOLEJOELE 2023 5 [facility] PSYLLIUM PWDR,ORAL TAKE 1 TEASPOON FUL BY MOUTH ONCE DAILY ORAL ACTIVE FURCOLO,T ROQUE 2023 [facility] RIVAROXABAN 20MG TAB TAKE ONE TABLET BY MOUTH DAILY ORAL ACTIVE CREWS,BE TH M 2016 [facility] SENNOSIDES 8.6MG TAB TAKE ONE TABLET BY MOUTH ONCE DAILY ORAL ACTIVE FURCOLO,T ROQUE 2023 [facility] TAMSULOSIN HCL 0.4MG CAP TAKE 1 CAPSULE BY MOUTH ONCE DAILY ORAL ACTIVE FURCOLO,T ROQUE 2023 [facility] UMECLIDINIU M 62.5MCG/ALFA ANTEROL 25MCG/ACTUA T INH,ORAL,30 D INHALE 1 INHALATI ON BY MOUTH ONCE DAILY RESPIR ATORY (INHAL ATION) ACTIVE FURCOLO,T ROQUE 2023 [facility] Allergies, Adverse Reactions, Alerts Combined list of allergies from Department of Defense and Veterans Affairs facilities. It does not include entries that were removed or entered in error. Substance Category Reaction Severity Reaction type Status Date Reported Comments Source CODEINE Propensity to adverse reactions to drug (finding) active 7 [facility] HYDROCODONE Propensity to adverse reactions to drug (finding) active 4 [facility] PIROXICAM Propensity to adverse reactions to drug (finding) [facility] VICODIN Propensity to adverse reactions to drug (finding) Anxiety active 7 [facility] Immunizations Combined list of available immunizations from the Department of Defense and Veterans Affairs facilities. Immunization Series Date Given Administered By Site Reaction Lot Number CVX Code Drug Striper Status Comments Source INFLUENZA, UNSPECIFIED FORMULATION 2022 88 complet ed [facility] COVID-19 (MODERNA), MRNA, LNP-S, PF, 100 MCG/0.5 ML DOSE 2 2020 207 complet ed MOD; [id number]; 1 [facility] COVID-19 (MODERNA), MRNA, LNP-S, PF, 100 MCG/0.5 ML DOSE 1 2020 207 complet ed MOD; [id number]; 1 [facility] [...] CONJUGATE PCV 13 2016 133 complet ed [place] [facility] FLU,3 YRS (HISTORICAL) 2015 88 complet ed [place] - High dose [facility] PNEUMOCOCCAL CONJUGATE PCV 13 2015 133 complet ed [place] [facility] ZOSTER (HISTORICAL) 2015 121 complet ed [place] [facility] TDAP 2015 115 complet ed [place] [facility] FLU,3 YRS (HISTORICAL) 2014 88 complet ed [place] [facility] FLU,3 YRS (HISTORICAL) 2013 88 complet ed [place] [facility] PNEUMOCOCCAL CONJUGATE PCV 13 2013 133 complet ed [place] [facility] FLU,3 YRS (HISTORICAL) 2012 88 complet ed [place] [facility] TDAP 2012 115 complet ed [place] [facility] FLU,3 YRS (HISTORICAL) 2011 88 complet ed [place] [facility] FLU,3 YRS (HISTORICAL) 2010 88 complet ed [place] [facility] TD(ADULT) UNSPECIFIED FORMULATION 2009 139 complet ed [place] [facility] FLU,3 YRS (HISTORICAL) 2009 88 complet ed [place] [facility] FLU,3 YRS (HISTORICAL) 2009 88 complet ed [place] -[id number] demic flu [facility] FLU,3 YRS (HISTORICAL) 2008 88 complet ed [place] [facility] ZOSTER (HISTORICAL) 2007 121 complet ed [place] [facility] FLU,3 YRS (HISTORICAL) 2007 88 complet ed [place] [facility] FLU,3 YRS (HISTORICAL) 2006 88 complet ed [place] [facility] FLU,3 YRS (HISTORICAL) 2005 88 complet ed [place] [facility] FLU,3 YRS (HISTORICAL) 2004 88 complet ed [place] [facility] PNEUMOCOCCAL CONJUGATE PCV 13 2004 133 complet ed [place] [facility] TD(ADULT) UNSPECIFIED FORMULATION 2003 139 complet ed [place] [facility] Vital [...] Veterans Affairs facilities going back up to thelast 18 months. 2) Encounters from the Department of Defense facilities going back up to 280 months. Location Location Details Encounter Type Encounter Number Reason For Visit Attending Provider ADM Date DC Date Status Disposition Source [facility] EYE EXAM ESTABLISH PATIENT [id number] Diagnos is: ICD-10- CM H04.123 Dry eye syndrom e of bilater al lacrima l glands< br/> IGLESIA KOENIG JOHN PAUL E 02/15 [facility] Outpatient Encounter [id number] 03/05 [facility] Out[facility]counter [id number] 03/08 [facility] Outpatient Encounter [id number] 03/13 [facility] EAR IMPRESSION [id number] Diagnos is: ICD-10- CM Z46.1 Encount er for fitting and adjustm ent of hearing aid<br/ > Preet ANN 03/16 [facility] REPAIR & ADJUST SPECTACLES [id number] Diagnos is: ICD-10- CM Z46.0 Encount er for fit/adj st of spectac les and contact lenses< br/> RICHIE KIDD 03/17 [facility] DETERMINE REFRACTIVE STATE [id number] Diagnos is: ICD-10- CM H43.813 Vitreou s degener ation, bilmu al
VIVI WARNER 03/17 [facility] Outpatient Encounter [id number] 03/25 [facility] [id number] 03/27 [facility] Out[facility] Encounter [id number] 04/04 [facility] Out[facility] Encounter [id number] 05/03 [facility] Outpatient Encounter [id number] 06/03 [facility] Out[facility] Encounter [id number] 06/17 [facility] HEARING AID REPAIR/MOD IFYING [id number] Diagnos is: ICD-10- CM Z46.1 Encount er for fitting and adjustm ent of hearing aid<br/ > RAPHAEL CALLE 07/01 [facility] Out[facility] Encounter [id number] 07/20 [facility] Out[facility] Encounter [id number] 07/21 [facility] Outpatient Encounter [id number] 07/23 [facility] INTRM OPH EXAM EST PATIENT [id number] Diagnos is: ICD-10- CM 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<br/ > SHARYNVIVI Moya Radha 07/30 [facility] Out[facility] Encounter [id number] 07/30 [facility] Out[facility] Encounter [id number] 08/01 [facility] Out[facility] Encounter [id number] 08/19 [facility] HEARING AID REPAIR/MOD IFYING [id number] Diagnos is: ICD-10- CM Z46.1 Encount er for fitting and adjustm ent of hearing aid<br/ > HUBER ESPINOZA 10/10 [facility] Out[facility] Encounter [id number] SHAINA TERRAZAS 10/24 [facility] Out[facility] Encounter [id number] 10/28 [facility] OFFICE O/P NEW [place] 60 MIN [id number] Diagnos is: ICD-10- CM J44.9 Chronic obstruc tive pulmona ry disease , unspeci fied
FURCOLO,TI NA 11/15 [facility] Out[facility] Encounter [id number] 12/02 [facility] Out[facility] Encounter [id number] 12/05 [facility] Out[facility] Encounter [id number] 12/14 [facility] Out[facility] Encounter [id number] 12/24 [facility] HEARING AID FITTING/CH ECKING [id number] Diagnos is: ICD-10- CM Z46.1 Encount er for fitting and adjustm ent of hearing aid<br/ > Preet ANN 12/26 [facility] OFFICE O/P EST LOW 20 MIN [id number] Diagnos is: ICD-10- CM K59.00 Constip ation, unspeci fied
FURCOOKIE SIMMONS NA 12/30 [facility] Out[facility] Encounter [id number] 01/20 [facility] Out[facility] Encounter [id number] 01/26 [facility] Outpatient Encounter [id number] 02/03 [facility] Out[facility] Encounter [id number] 02/03 [facility] Out[facility] Encounter [id number] 02/03 [facility] Out[facility] Encounter [id number] 02/07 [facility] INTRM OPH EXAM EST PATIENT [id number] Diagnos is: ICD-10- CM 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
VIVI WARNER 02/09 [facility] Out[facility] Encounter [id number] 02/09 [facility] Out[facility] Encounter [id number] 05/23 [facility] Out[facility] Encounter [id number] 06/22 [facility] Out[facility] Encounter [id number] 07/01 [facility] Out[facility] Encounter [id number] 07/05 [facility] INTRM OPH EXAM EST PATIENT [id number] Diagnos is: ICD-10- CM L71.8 Other rosacea
REANNA MARMOLEJO 07/10 [facility] Social History Combined list of available smoking, tobacco, and other social history from Department of Defense and Veterans Affairs facilities. Social History Type Response [facility] VA-TOBACCO QUIT 15 YRS OR MORE 10/29/2023 [facility] History of tobacco use DE-TOBACCO FORMER USER 10/29/2023 [facility] of [facility] History of tobacco use QUIT TOBACCO USE > 7 YEARS AGO 10/14/2017 [facility] History of tobacco use QUIT TOBACCO USE > 7 YEARS AGO 10/05/2016 [facility] Plan of Care List of future care activities from [facility] facilities. Additional future care activities may be listed in the Assessment and Plan section. Date/Time Care Activity Care Activity Detail Facili ty 11/13/2024 AMBULATORY - MEDICINE AMBULATORY - MEDICI [facility] 06/30/2024 Laboratory - Oil Dispenser ry Order BASIC METABOLIC PANEL (non-fasting) BLOOD (SST-SERUM) [facility] 06/30/2024 Laboratory - Oil Dispenser ry Order TSH BLOOD (SST-SERUM) [facility] 06/30/2024 Laboratory - Oil Dispenser ry Order CBC BLOOD (LAV-BLOOD) [facility] 06/30/2024 Laboratory - Oil Dispenser ry Order LIPID PANEL, NON FASTING BLOOD (SST-SERUM) [facility] Advance Directives List of completed, amended, or rescinded Advance Directives on record at [facility] facilities. An actual copy of the Directive is not included. Date Advance Directive Provider Source 11/16/2023 ADVANCE DIRECTIVE MARC METZGER [facility]
--- OUTSIDE RECORDS SUMMARY | 2024-08-02 12:08 | XMS_ITS ---
Author Name [facility] [facility] [place] Address [address] [place] [address] Care Team Providers Care Cabinet Installer Name Role Phone POLLY CLIFFORD Primary Care [...] Cherry's Name Patient's Relationship to Policy Cherry [facility] (WNR) MEDICARE ADVANTAGE [facility] (WNR) Jul 19, 2023 [id number] Rayne JACOBO PATIENT [facility] PRESCRIPT ION [id number] 1 Jul 19, 2017 [id number] [phone] Rayne JACOBO PATIENT [facility] PRESCRIPT ION [id number] 1 Jul 19, 2017 [id number] Rayne JACOBO PATIENT MEDICARE (WNR) MEDICARE (M) PART B Sep 16, 2005 PART B [id number] SUKI JACOBO SR PATIENT MEDICARE (WNR) MEDICARE (M) PART A Sep 16, 2005 PART A [id number] [phone] Rayne JACOBO PATIENT MEDICARE (WNR) MEDICARE (M) PART A Sep 16, 2005 PART A AVELINARENDY SRSUKI PATIENT MEDICARE (WNR) MEDICARE (M) PART B Sep 16, 2005 PART B [id number] AVELINARENDY SRSUKI PATIENT MEDICARE (WNR) MEDICARE (M) PART A Sep 16, 2005 PART A [id number] AVELINARENDY SRSUKI PATIENT MEDICARE (WNR) MEDICARE (M) PART B Sep 16, 2005 PART B [id number] AVELINARSUKI SCHUMACHER SR PATIENT OPTUM RX PRESCRIPT ION RX Jul 19, 2022 [id number] [phone] Rayne JACOBO PATIENT OPTUM RX PRESCRIPT ION RX Jul 19, 2022 THPRX [id number] Rayne JACOBO PATIENT OPTUM RX PRESCRIPT ION RX Jul 19, 2022 [id number] Rayne JACOBO PATIENT [facility] Jul 19, 2017 [id number] AVELINASiddharthaRayne SCHUMACHER PATIENT [facility] Jul 19, 2017 [facility] [id number] [phone] Rayne JACOBO PATIENT [facility] KARIN Moya Jul 19, 2017 [id number] YULIRayne GARCIA PATIENT [facility] Jul 21, 2013 (WNR) [id number] DONNELLRayne SHELLEY PATIENT [facility] (R) [facility](WN R) Jul 19, 2017 (WNR) [id number] Rayne JACOBO SHELLEY PATIENT Selected Encounter This section includes the information on record at [place] for the Encounter. Date/Time Encounter Type Encounter Description Reason Provider Source Jul 10, 2024 08:30 AM INTRM OPH EXAM EST PATIENT OPTOMETRY ICD-10-CM L71.8 Other rosacea FRANCIENICK Nita Encounter Template Text not used by [place] Assessments - Encounter Diagnoses This section includes the primary and secondary diagnoses documented for the Encounter. Date/Time Primary/Secondary Diagnosis Diagnosis Name Provider Source Jul 10, 2024 08:43 AM PRIMARY Other rosacea LACEY MARMOLEJO [place] [facility] [place] [facility] Jul 10, 2024 08:43 AM SECONDARY Dry eye syndrome of bilateral lacrimal glands LACEY MARMOLEJO [facility] [place] [facility] Jul 10, 2024 08:43 AM SECONDARY Meibomian gland dysfnct left eye, upper and lower eyelids LACEY MARMOLEJO [facility] [place] [facility] Jul 10, 2024 08:43 AM SECONDARY Meibomian gland dysfnct right eye, upper and lower eyelids LACEY MARMOLEJO [facility] [place] [facility] Jul 10, 2024 08:43 AM SECONDARY Other chronic allergic conjunctivitis LACEY MARMOLEJO [facility] [place] [facility] Plan of Treatment: Future Appointments (+ 6 months) and Future Tests (+/- 45 days) The Plan of Treatment section includes future care activities for the patient from all [place] treatmentfacilities. This section includes future appointments and future orders which are active, pending or scheduled. Future Appointments This section includes appointments that were scheduled to occur 6 months from the date of the Encounter, up to a maximum of 20 appointments. The data comes from all [place] treatment facilities. Appointment Date/Time Appointment Type Appointme nt Facility Name Nov 13, 2024 09:00 AM AMBULATORY - MEDICINE [facility] [place] [facility] Active, Pending, and Scheduled Orders This section includes a listing of several types of active, pending, and scheduled orders, including clinic medications orders, diagnostic test orders, procedure orders and consult orders; where the start date of the order is 45 days before the date of the Encounter or 45 days after the date of theEncounter. The data comes from all [place] treatment facilities. Test Date/Time Test Type Test Details Facility Name Jun 30, 2024 12:00 AM Laboratory - Chemi stry Order BASIC METABOLIC PANEL (non-fasting) BLOOD (SST-SERUM) [facility] [place] [facility] Jun 30, 2024 12:00 AM Laboratory - Chemi stry Order TSH BLOOD (SST[facility]SERUM) [facility] Jun 30, 2024 12:00 AM Laboratory - Chemi stry Order CBC BLOOD (LAV-BLOOD) [facility] Jun 30, 2024 12:00 AM Laboratory - Chemi stry Order LIPID PANEL, NON FASTING BLOOD (SST-SERUM) [facility] Social History: Smoking Status (Most current) and Tobacco Use (All prior to encounter date) This section includes the most current, and the historical, smoking and tobacco- related health factors from the [place] facility where the Encounter took place. Current Smoking Status This section includes the most current smoking, or tobacco-related health factor, from the [place] facility where the Encounter took place. Date/Time Current Smoking Status Comment Facil ity Oct 29, 2023 06:12 PM VA-TOBACCO FORMER USER [place] [facility] [place] [facility] Tobacco Use History This section includes a history of the smoking, or tobacco-related health factors, that were collected on or before the date of the Encounter. The data comes from the [place] facility where the Encounter took place. Date/Time Smoking Status/Tobacco Use Comment F acility Oct 29, 2023 06:12 PM VA-TOBACCO QUIT 15 YRS OR MORE [place] [facility] [place] [facility] Aug 23, 2019 09:07 AM VA-TOBACCO FORMER USER [place] [facility] [place] [facility] Aug 23, 2019 09:07 AM VA-TOBACCO QUIT 15 YRS OR MORE [place] [facility] [place] [facility] Jun 28, 2018 10:50 AM VA-TOBACCO FORMER USER [place] [facility] [place] [facility] Jun 28, 2018 10:50 AM VA-TOBACCO QUIT 15 YRS OR MORE [place] [facility] [place] [facility] Oct 14, 2017 09:20 AM QUIT TOBACCO USE > 7 YEARS AGO [facility] Oct 05, 2016 01:02 PM QUIT TOBACCO USE > 7 YEARS AGO [facility] Advance Directives: All historical and current Section Date Range: From patient's date of to the date document was created. This section includes ALL of a patient's completed or amended [place] Advance and Rescinded Directives. The entries below indicate that a directive exists for the patient, but an actual copy is not included with this document. The data comes from all [place] facilities. Date Advance Directives Provider Source Nov 16, 2023 ADVANCE DIRECTIVE MARC METZGER [facility] Encounter Notes: All associated encounter notes This section contains the clinical notes associated to the Encounter. Date/Time Encounter Note(s) Provider Source Jul 10, 2024 08:35 AM OPTOMETRY NOTE: LOCAL TITLE: OPTOMETRY NOTE STANDARD TITLE: OPTOMETRY NOTE DATE OF NOTE: JUL 10, 2024@08:35 ENTRY DATE: JUL 10, 2024@08:35:59 AUTHOR: RONNIE MARMOLEJO EXP COSIGNER: URGENCY: STATUS: COMPLETED Active problems - Computerized Problem List is the source for the followin. Chronic obstructive pulmonary disease 2. Benign Prostatic Hypertrophy without Outflow Obstruction ([facility] [id number]) 3. Lumbosacral radiculopathy 4. Multiple renal cysts 5. Benign essential hypertension 6. Toxic polyneuropathy 7. Sleep apnea 8. Hepatitis C 9. H/O: osteoarthritis 10. Atrial fibrillation 11. Seizure disorder 12. Cerebral atrophy 13. Cognitive disorder Active Outpatient Medications (including Supplies): Active Outpatient Medications Status 1) KETOTIFEN 0.025% OPH SOLN INSTILL 1 DROP INTO EACH EYE EVERY ACTIVE 12 HOURS (IF YOU WEAR CONTACT LENSES, WAIT 10 MINUTES BEFORE INSERTING LENSES) Indication: FOR ALLERGIC CONJUNCTIVITIS Active Non-VA Medications Status 1) Non-VA ACETAMINOPHEN 500MG TAB 500MG BY MOUTH TWICE DAILY ACTIVE 2) Non-VA ALBUTEROL 90MCG (CFC-F) 200D ORAL INHL 2 PUFFS BY ACTIVE MOUTH EVERY 4 HOURS NEEDED 3) Non-VA ATORVASTATIN CALCIUM 40MG TAB 20MG BY MOUTH AT ACTIVE BEDTIME Indication: FOR HIGH CHOLESTEROL 4) Non-VA CITALOPRAM HYDROBROMIDE 40MG TAB 40MG BY MOUTH ONCE ACTIVE DAILY Indication: FOR MAJOR DEPRESSIVE DISORDER 5) Non-VA DILTIAZEM HCL 90MG 12HR SA CAP 180MG BY MOUTH DAILY ACTIVE 6) Non-VA FUROSEMIDE 20MG TAB 20MG BY MOUTH ONCE DAILY ACTIVE NEEDED 7) Non-VA LEVETIRACETAM 500MG TAB 1000MG BY MOUTH TWICE DAILY ACTIVE 8) Non-VA MULTIVITAMIN CAP/TAB 1 TABLET BY MOUTH DAILY ACTIVE 9) Non-VA NITROGLYCERIN 0.4MG SL TAB 0.4MG UNDER THE TONGUE ACTIVE EVERY 5 MINUTES NEEDED Indication: FOR ACUTE CHEST PAIN 10) Non-VA PSYLLIUM ORAL PWD 1 TEASPOONFUL BY MOUTH ONCE DAILY ACTIVE 11) Non-VA RIVAROXABAN 20MG TAB 20MG BY MOUTH DAILY ACTIVE 12) Non-VA SENNOSIDES 8.6MG TAB 8.6MG BY MOUTH ONCE DAILY ACTIVE Indication: FOR CONSTIPATION 13) Non-VA TAMSULOSIN HCL 0.4MG CAP 0.4MG BY MOUTH ONCE DAILY ACTIVE 14) Non-VA BATTMORGMQOM42.5/VILANTERO L25MCG 30D INH 1 INHALATION ACTIVE BY MOUTH ONCE DAILY 15 Total Medications Allergies: VICODIN, CODEINE, PIROXICAM, HYDROCODONE All medications including those prescribed by outside VA's, community providers, and all OTC meds were reviewed and reconciled with patient to the best of their abilities. This 83 year old MALE is seen today for for problem focused visit. Medical, eye, personal, and social history are all reviewed and is contributory to today's visit for bilateral dry eye disease, bilateral chronic allergic conjunctivitis as well as bilateral pseudophakia. He also has a history of visual disturbance suggestive of of a migrainous headache. He is followed by neurology in the community currently is endorsing any active symptoms of visual disturbance. Today he presents complaining of bilateral eye pain occurring approximately twice a day lasting approximately 15 minutes which improves with use of clear eye lubricating drops. He also notes his eyes are very itchy when he gets the pain. Although he has previously been prescribed ketotifen twice a day as needed for itchy eyes he does not use this on a regular basis. He also was ordered a Aleida mask which he indicates he is never taken out of the package or use. He only uses the Clear Eyes when he gets the eye pain which she notes does help improve his symptoms. He denies eye pain upon waking in the morning but does note that his lids can be somewhat crusty when he wakes up. (+) Pain: (+) LLANOS: Followed by neurology and stable (-) Diplopia: (-) Flashes: (-) Floaters: (-) Amaurosis Fugax/Tia's: (+) Eye Injury: Childhood eye injury? Corneal abrasion without complication or sequelae (+) Eye Surgery: Previous cataract surgery (-) TBI: Chief Complaint: Bilateral eye pain left greater than right eye occurring twice a day and lasting for approximately 15 minutes. Eye pain improves with use of clear eyes lubricating drops. 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 Tear break-up time and tear meniscus are both reduced each eye. There is no evidence of superficial punctate keratitis. Although he was issued a Aleida mask previously he is never used it and is currently using lubricating drops on a as needed basis when he has eye pain. He also does not consistently use the ketotofen which was previously recommended twice a day as needed for itchy eyes due to chronic allergic conjunctivitis each eye. Start Aleida mask daily for 3 to 5 minutes. Reviewed directions now to microwave for 10 to 15 seconds and to check temperature before applying Aleida mask. Start lubricating drops 4 times a day each eye on a consistent daily basis. Start brief course of Pred forte 1 drop twice a day each eye for 10 days for both inflammatory and dry eyes as well as allergic conjunctivitis. Reminded to use ketotifen 1 drop twice a day as needed for itchy eyes. Order lid wipes to be used daily for mild blepharitis right and left upper lid. There is no evidence of ocular infection or intraocular inflammation seen on exam today. Bilateral pseudophakia looks perfect. Plan: Patient education as noted above reviewed exam findings now. Prefers all drops ordered for mail out. Pred forte 1 drop twice a day each eye for 10 days and then stop. Lubricating drops 1 drop 4 times a day each eye. Renew ketotifen 1 drop twice a day as needed for itchy eyes. Eyelid wipes used daily in the morning to clean eyelids and lashes. Keep scheduled follow-up September 2024 for comprehensive exam or sooner if need be. Education: As noted above Return to Clinic keep scheduled follow-up September 2024 1. Aleida mask daily: Microwave 15 seconds and check temperature before you apply to your eyes. Use 3-5 minutes each day. 2. Lubricating drops 4 times a day. 3. Use Pred Forte (1 drop 4 2 x a day for 10 days) Shake well before using. 4. Ketotifen: use 1 drop twice a day for itchy eyes 5. Eye lids wipes daily Medication Reconciliation: Outpatient: Has the patient been taking medications as documented in the EMLR? YES: The patient has been taking medications as documented in the EMLR. Essential Medication List for Review used to complete this medication reconciliation. INCLUDED IN THIS LIST: Alphabetical list of active outpatient prescriptions dispensed from this [place] (local) and dispensed from another [place] or [facility] facility (remote) as well as inpatient orders (local, pending and active), local clinic medications, locally documented non-VA medications, and local prescriptions that have or been discontinued in the past 90 days. - All changes in medications, including all non-VA/Herbal/OTC medications were entered into CPRS. Changes: Pred forte 1 drop twice a day for 10 days and stop lubricating drops 4 times a day each eye - If there were any medications the patient should no longer take, they were discontinued. - The patient/caregiver was instructed to update this list, discard old lists, and take this list to the next appointment, whether with a VA or non-VA provider. JLV Link Data on this list may not be complete. Please check [facility]. Allergies/ADRs (Tool #5) FACILITY ALLERGY/ADR -------- No Remote Allergy/ADR Data available for this patient [facility] [place] [facility] HYDROCODONE [facility] [place] PIROXICAM [facility] [place] VICODIN Med Recon NoGlossary (Tool #1) INCLUDED IN THIS LIST: Alphabetical list of active outpatient prescriptions dispensed from this VA (local) and dispensed from another [place] or [facility] facility (remote) as well as inpatient orders (local pending and active), local clinic medications, locally documented non-VA medications, and local prescriptions that have or been discontinued in the past 90 days. Non-VA Meds Last Documented On: Jan 21, 2024 NOTE The display of VA prescriptions dispensed from another [place] or [facility] facility (remote) is limited to active outpatient prescription entries matched to National Drug File at the originating site and may not include some items such as investigational drugs, compounds, etc. NOT INCLUDED IN THIS LIST: Medications self-entered by the patient into personal health records (i.e. [employer]) are NOT included in this list. Non-VA medications documented outside this [place], remote inpatient orders (regardless of status) and remote clinic medications are NOT included in this list. The patient and provider must always discuss medications the patient is taking, regardless of where the medication was dispensed or obtained. Non-VA ACETAMINOPHEN 500MG TAB TAKE ONE TABLET BY MOUTH TWICE DAILY Non-VA ALBUTEROL 90MCG (CFC-F) 200D ORAL INHL INHALE 2 PUFFS BY MOUTH EVERY 4 HOURS NEEDED Non-VA ATORVASTATIN CALCIUM 40MG TAB TAKE ONE-HALF TABLET BY MOUTH AT BEDTIME Indication: FOR HIGH CHOLESTEROL Non-VA CITALOPRAM HYDROBROMIDE 40MG TAB TAKE ONE TABLET BY MOUTH ONCE DAILY Indication: FOR MAJOR DEPRESSIVE DISORDER Non-VA DILTIAZEM HCL 90MG 12HR SA CAP TAKE 2 CAPSULES BY MOUTH DAILY Non-VA FUROSEMIDE 20MG TAB TAKE ONE TABLET BY MOUTH ONCE DAILY NEEDED unknown dose OUTPT KETOTIFEN 0.025% OPH SOLN (Status = Active) INSTILL 1 DROP INTO EACH EYE EVERY 12 HOURS FOR ALLERGIC CONJUNCTIVITIS (IF YOU WEAR CONTACT LENSES, WAIT 10 MINUTES BEFORE INSERTING LENSES) Rx# [id number] Last Released: 01/25/24 Qty/Days Supply: Rx Expiration Date: 01/21/25 Refills Remainin Indication: FOR ALLERGIC CONJUNCTIVITIS Non-VA LEVETIRACETAM 500MG TAB TAKE TWO TABLETS BY MOUTH TWICE DAILY Non-VA MULTIVITAMIN CAP/TAB TAKE ONE TABLET BY MOUTH DAILY Non-VA NITROGLYCERIN 0.4MG SL TAB DISSOLVE ONE TABLET UNDER THE TONGUE EVERY 5 MINUTES NEEDED Indication: FOR ACUTE CHEST PAIN Non-VA PSYLLIUM ORAL PWD TAKE 1 TEASPOONFUL BY MOUTH ONCE DAILY Non-VA RIVAROXABAN 20MG TAB TAKE ONE TABLET BY MOUTH DAILY Non-VA SENNOSIDES 8.6MG TAB TAKE ONE TABLET BY MOUTH ONCE DAILY Indication: FOR CONSTIPATION Non-VA TAMSULOSIN HCL 0.4MG CAP TAKE 1 CAPSULE BY MOUTH ONCE DAILY Non-VA [id number]/VILANTERO L25MCG 30D INH PZRBQIYPDTCX92.5/VILANTERO L25MCG 30D INH INHALE 1 INHALATION BY MOUTH ONCE DAILY SUPPLIES printed directions provided as noted above /alba/ Ronnie Marmolejo OD CHIEF OF OPTOMETRY Signed: 07/10/2024 08:51 RONNIE MARMOLEJO [facility]
[2024-08-02 12:26] VITALS: BP 117/62
[2024-08-02] MEDS: Furosemide 40 MG/4 ML VIAL IVPUSH (12:26)
[2024-08-02 13:27] VITALS: BP 126/59; PULSE 63; RESP 21; TEMP 36.6; O2SAT 94
[2024-08-02 13:51] LABS: Troponin-I High Sensitivity 3.4 ng/L (<3.5-35.0)
[2024-08-02 14:21] VITALS: BP 126/59; PULSE 63; RESP 21; TEMP 36.6; O2SAT 94
== END 2024-08-02 14:30 | disposition home or self-care (01) ==
PROVIDERS: Physician Assistant Medical; Emergency Provider Student in an Organized Health Care Education/Training Program; PCP Family Medicine
DX: R07.89 Other chest pain (principal); I25.10 Atherosclerotic heart disease of native coronary artery without angina pectoris; I48.91 Unspecified atrial fibrillation; I44.0 Atrioventricular block, first degree; R06.02 Shortness of breath; Z79.01 Long term (current) use of anticoagulants; Z79.899 Other long term (current) drug therapy
CPT/HCPCS: 36415; 71046; 80053; 81003; 83880; 84484; 85025; 93005; 96374; 99284; J1940

== ENCOUNTER → 2024-08-02 09:50 | Outpatient (BNV) | payer OTHER, SELFPAY | PROVIDERS: Emergency Provider Student in an Organized Health Care Education/Training Program; PCP Family Medicine; Visit Provider Internal Medicine Cardiovascular Disease | DX: R07.9 Chest pain, unspecified (principal); I44.0 Atrioventricular block, first degree | CPT/HCPCS: 93010 ==

== ENCOUNTER → 2024-08-02 10:32 | Outpatient (BNV) | payer OTHER, SELFPAY | PROVIDERS: Emergency Provider Student in an Organized Health Care Education/Training Program; PCP Family Medicine; Visit Provider Radiology Diagnostic Radiology | DX: R07.9 Chest pain, unspecified (principal) | CPT/HCPCS: 71046 ==

== ENCOUNTER 2024-09-15 07:53 | Emergency (ER) | payer OTHER, SELFPAY ==
--- NOTE | ~2024-09-15 | XR_ITS ---
EXAMINATION: XR ABDOMEN KUB CLINICAL INDICATION: constipated COMPARISON: 07/07/2024. TECHNIQUE: AP view of the abdomen. FINDINGS: There is mild gaseous distention of the sigmoid and descending colon. No pathologic dilatation seen. There is moderate retained fecal material in the right colon and transverse colon. There is no small bowel dilatation. No indirect evidence of free air. Surgical clips right upper quadrant. No abnormal soft tissue calcifications aside from vascular. Lung bases appear clear. Degenerative changes throughout the spine, and left hip joint. There is a right hip total arthroplasty. No complication evident. XR/XR KUB IMPRESSION: 1. Moderate retained stool in the right and transverse colon. 2. Gaseous distention of the descending and sigmoid colon. 3. No small bowel obstruction or acute abnormality. Electronically signed by: Germán Rooney MD 09/15/2024 09:37 AM EST
[2024-09-15 08:03] VITALS: BP 139/64; PULSE 57; RESP 20; TEMP 36.5; O2SAT 96; BMI 30.8
[2024-09-15 08:32] LABS: Basophils Percent Auto 0.8 % (0-2); Eosinophils Absolute Auto 0.2 X10*3/uL (0.0-0.4); Eosinophils Percent Auto 4.2 % (0-4); Hematocrit 40.6 % (42.0-52.0); Hemoglobin 13.6 g/dl (14.0-18.0); Imm Gran Abs Auto 0.01 X10*3/uL (0.00-0.03); Imm Gran Pct Auto 0.2 % (0.0-0.4); Lymphocytes Absolute Auto 0.9 X10*3/uL (1.2-4.9); MANUAL DIFF FLAG NO; Mean Corpuscular HGB Conc 33.5 g/dl (31.0-36.0); Mean Corpuscular Volume 95.5 fL (80.0-98.0); Mean Platelet Volume 9.7 fL (9.4-12.4); Monocytes Absolute Auto 0.4 X10*3/uL (0.1-1.2); Neutrophils Absolute Auto 3.7 x10*3/uL (2.0-8.3); Neutrophils Percent Auto 69.8 % (45-73); Platelet Count 180 X10*3/uL (160-400); Red Blood Count 4.25 X10*6/uL (4.60-5.80); Red Cell Distribution Width 13.5 % (11.0-16.0); White Blood Count 5.3 X10*3/uL (4.8-10.8)
[2024-09-15 08:49] LABS: Alanine Aminotransferase 12 U/L (0-40); Alkaline Phosphatase 62 U/L (39-117); Anion Gap 10 (12-20); Aspartate Amino Transferase 21 U/L (5-37); Bilirubin Direct 0.2 mg/dL (0.0-0.5); Bilirubin Total 0.4 mg/dL (0.0-1.0); Blood Urea Nitrogen 15 mg/dL (9-16); Calcium 9.1 mg/dL (8.4-10.2); Carbon Dioxide 27 mmol/L (22-29); Chloride 107 mmol/L (96-108); Estimated Glomerular Filt Rate > 60; Glucose Random 107 mg/dL (60-115); Lipase 7 U/L (8-78); Potassium 4.4 mmol/L (3.3-5.1); Sodium 140 mmol/L (135-145); Total Protein 7.1 g/dL (6.5-8.0)
--- NOTE | 2024-09-15 14:21 | ED.GENADULT ---
HPI - General Adult General Chief complaint: Abdominal Pain Stated complaint: bowel issue Time Seen by Provider: 09/15/24 14:20 Source: patient, family (daughter), RN notes reviewed and old records reviewed Mode of arrival: ambulatory Limitations: no limitations History of Present Illness ED Provider: Kaila HPI narrative: Patient is an 83-year-old male with history of HTN, paroxysmal AFib, CAD presenting to the emergency department with complaint of constipation for the past 3 days. States that he has not had any bowel reports prior to that for several days he had loose, stringy stools. Also reports urinary frequency. Denies abdominal pain. Denies fevers. Denies nausea or vomiting. Denies any hematochezia or melena. Has used Metamucil, stool softeners and prune juice at home without any change. History of similar symptoms in the past. Related Data Home Medications ?Medication ?Instructions ?Recorded ?Confirmed diclofenac sodium 1 % topical gel 1 ea topical QID 06/11/20 04/21/24 albuterol sulfate 90 mcg/actuation 2 puff inhalation Q4H PRN wheezing 12/12/20 04/21/24 aerosol inhaler ascorbic acid (vitamin C) 500 mg mg PO 05/22/21 04/21/24 capsule nitric oxide gas 100 PPM for ea inhalation 05/22/21 04/21/24 inhalation atorvastatin 20 mg tablet 20 mg PO DAILY 11/25/21 04/21/24 tamsulosin 0.4 mg capsule 0.4 mg PO BID 11/25/21 04/21/24 carboxymethylcellulose sodium 0.5 drp ophthalmic (eye) 03/12/22 04/21/24 % eye drops olopatadine 0.1 % eye drops 1 drp ophthalmic (eye) ONCE 03/12/22 04/21/24 citalopram 40 mg tablet 40 mg PO DAILY 04/19/23 04/21/24 levetiracetam 1,000 mg tablet 750 mg PO BID 04/19/23 04/21/24 furosemide 20 mg tablet 20 mg PO DAILY 12/02/23 04/21/24 ketotifen fumarate 0.025 % (0.035 drp ophthalmic (eye) 12/02/23 04/21/24 %) eye drops (Eye Itch Relief) nitroglycerin 0.3 mg sublingual mg sublingual 12/02/23 04/21/24 tablet Previous Rx's ?Medication ?Instructions ?Recorded lidocaine 5 % topical cream 1 appl topical BID PRN pain #15 05/12/22 grams diltiazem HCl 180 mg 180 mg PO DAILY #90 caps 05/09/24 capsule,extended release 24 hr rivaroxaban 20 mg tablet (Xarelto) 20 mg PO QPM #90 tabs 06/02/24 polyethylene glycol 3350 17 17 g PO DAILY #119 grams 07/07/24 gram/dose oral powder (Miralax) Allergies Allergy/AdvReac Type Severity Reaction Status Date / Time penicillin V Allergy Severe Hives Verified 09/15/24 08:06 piroxicam [PIROXICAM] Allergy Intermediate HIVES/SOB Verified 09/15/24 08:06 rofecoxib [From VIOXX] Allergy Intermediate HIVES/SOB Verified 09/15/24 08:06 Penicillins [PENICILLINS] Allergy Unknown UNKNOWN Verified 09/15/24 08:06 phenacetin [PHENACETIN] Allergy Unknown UNK Verified 09/15/24 08:06 From VICODIN Allergy Intermediate HIVES/SOB Uncoded 08/02/24 10:07 [facility] Past Medical History Medical History Chronic anticoagulation CAD (coronary artery disease) Seizure disorder Paroxysmal atrial fibrillation HTN (hypertension) Surgical History History of left knee surgery History of right hip replacement History of ear surgery S/P skin biopsy Social History Social History Alcohol intake: current Alcohol intake frequency: does not drink Alcohol type: beer Patient Tobacco Use Status: Former Tobacco user Years Smoked: 30 +/- Smoked in Last 30 Days: No Use of substances other than those prescribed or required for medical reasons: No Advance Directives: Yes Advance Directives Information Provided: No Advance Directives on File: No Do you have a plan to hurt others: No Plan Physical Exam ED Vital Signs: Vital Signs - 24 hr 09/15/24 08:03 09/15/24 15:46 09/15/24 16:25 Temperature 97.7 F 98.3 F Pulse Rate 57 63 63 Respiratory Rate 20 14 18 Blood Pressure 139/64 196/88 H 158/71 H Pulse Oximetry 96 95 95 Oxygen Delivery Method Room Air Room Air Room Air BMI result Body Mass Index 30.8 Medications Administered Discontinued Medications Generic Name Dose Route Start Last Admin Trade Name Shey PRN Reason Stop Dose Admin Sodium Biphosphate/Sodium Phosphate 133 ml 09/15/24 15:06 09/15/24 15:37 Sodium Phosphate,Breathitt-Dibasic 133 Ml Enema OK 09/15/24 15:07 133 ml ONCE ONE Administration Medical Decision Making Medical Decision Making [facility] Narrative: Patient is an 83-year-old male with history of HTN, paroxysmal AFib, CAD presenting to the emergency department with complaint of constipation for the past 3 days. On exam patient is awake, A+Ox3, VS WNL, afebrile, normal neurological exam without focal deficits, physical exam findings as above. Given reported symptoms and physical exam findings, initial differential includes but is not limited to constipation, obstruction, UTI. Labs unremarkable. KUB notable for moderate retained stool in right and transverse colon, gaseous distension of descending and sigmoid colon, no small bowel obstruction. My interpretation is in agreement with the radiologist's interpretation. Patient treated with Fleet's enema and was able to have large bowel movement afterwards. Advised patient to continue with stool softeners and Metamucil until his bowel movements returned to normal. Follow up with PCP as needed. Return precautions discussed at bedside. Patient verbalized understanding of and agreement plan. Differential Diagnosis Differential Diagnoses: The differential diagnosis associated with the presentation includes As per [facility] Lab Data [facility] Lab Attestation statement: I reviewed the patient's lab results. As per [facility] 09/15/24 08:25 09/15/24 08:25 Labs: Lab Results 09/15/24 09/15/24 Range/Units 08:25 15:15 WBC 5.3 (4.8-10.8) X10*3/uL RBC 4.25 L (4.60-5.80) X10*6/uL Hgb 13.6 L (14.0-18.0) g/dl Hct 40.6 L (42.0-52.0) % MCV 95.5 (80.0-98.0) fL MCH 32.0 (27.0-33.0) pg MCHC 33.5 (31.0-36.0) g/dl RDW 13.5 (11.0-16.0) % Plt Count 180 (160-400) X10*3/uL MPV 9.7 (9.4-12.4) fL Immature Gran % (Auto) 0.2 (0.0-0.4) % Neut % (Auto) 69.8 (45-73) % Lymph % (Auto) 17.0 L (20-40) % [place] % (Auto) 8.0 (2-11) % Eos % (Auto) 4.2 H (0-4) % Baso % (Auto) 0.8 (0-2) % Lymph # (Auto) 0.9 L (1.2-4.9) X10*3/uL [place] # (Auto) 0.4 (0.1-1.2) X10*3/uL Eos # (Auto) 0.2 (0.0-0.4) X10*3/uL Baso # (Auto) 0.0 (0.0-0.2) X10*3/uL Abs Immat Gran (auto) 0.01 (0.00-0.03) X10*3/uL Absolute Neuts (auto) 3.7 (2.0-8.3) x10*3/uL Absolute Nucleated RBC 0.000 (0.0-0.012) X10*3/uL Nucleated RBC % (auto) 0.0 (0.0-0.2) /100WBC Sodium 140 (135-145) mmol/L Potassium 4.4 (3.3-5.1) mmol/L Chloride 107 (96-108) mmol/L Carbon Dioxide 27 (22-29) mmol/L Anion Gap 10 L (12-20) BUN 15 (9-16) mg/dL Creatinine 0.77 (0.5-1.4) mg/dL Estim Creat Clear Calc 85.0 Estimated GFR > 60 Random Glucose 107 (60-115) mg/dL Calcium 9.1 (8.4-10.2) mg/dL Total Bilirubin 0.4 (0.0-1.0) mg/dL Direct Bilirubin 0.2 (0.0-0.5) mg/dL AST 21 (5-37) U/L ALT 12 (0-40) U/L Alkaline Phosphatase 62 (39-117) U/L Total Protein 7.1 (6.5-8.0) g/dL Albumin 4.0 (3.5-5.0) g/dL Lipase 7 L (8-78) U/L Urine Color Yellow Urine Appearance Clear Urine pH 8.0 (5.0-9.0) Ur Specific [place] 1.010 (1.005-1.025) Urine Protein Negative (Neg-Trace) mg/dL Urine Glucose (UA) Negative (Negative) mg/dL Urine Ketones Negative (Negative) mg/dL Urine Blood Negative (Negative) Urine Nitrite Negative (Negative) Ur Leukocyte Esterase Negative (Negative) Independent Interpretation I performed an independent interpretation of an: Plain X-Ray Interpretation: KUB notable for moderate retained stool in right and transverse colon, gaseous distension of descending and sigmoid colon, no small bowel obstruction. Radiology Impression Discussion of test interpretation with radiology: I have reviewed the radiologist's reading. Radiologist Impression: XR/XR KUB IMPRESSION: 1. Moderate retained stool in the right and transverse colon. 2. Gaseous distention of the descending and sigmoid colon. 3. No small bowel obstruction or acute abnormality. External Record Review External record reviewed: Inpatient record, Office record and Outpatient record Discharge Plan Discharge Clinical Impression: Constipation Qualifiers: Constipation type: unspecified constipation type Qualified Code(s): K59.00 - Constipation, unspecified Patient Disposition: Home, Self-Care Instructions: Constipation (DC), Fleet Enema (ED), High Fiber Diet (ED) Additional Instructions: You were evaluated in the emergency department today for constipation. You were able to have a large bowel movement after an enema in the emergency department. We recommend that you continue to use Metamucil and stool softeners until your bowel movements returned to normal. Be sure to drink plenty of water. Follow up with your primary care provider. Return to the emergency department if you develop abdominal pain, vomiting, fevers, ongoing constipation or any other new or concerning symptoms. Prescriptions: No Action diltiazem HCl 180 mg capsule,extended release 24hr 180 mg PO DAILY Qty: 90 1RF Xarelto 20 mg tablet 20 mg PO QPM Qty: 90 3RF lidocaine 5 % cream 1 appl topical BID PRN (Reason: pain) Qty: 15 0RF polyethylene glycol 3350 [Miralax] 17 gram/dose powder 17 g PO DAILY Qty: 119 0RF diclofenac sodium 1 % gel 1 ea topical QID albuterol sulfate 90 mcg/actuation HFA aerosol inhaler 2 puff inhalation Q4H PRN (Reason: wheezing) ascorbic acid (vitamin C) 500 mg capsule PO nitric oxide gas 100 PPM gas inhalation tamsulosin 0.4 mg capsule 0.4 mg PO BID atorvastatin 20 mg tablet 20 mg PO DAILY olopatadine 0.1 % drops 1 drp ophthalmic (eye) ONCE carboxymethylcellulose sodium 0.5 % drops ophthalmic (eye) levetiracetam 1,000 mg tablet 750 mg PO BID furosemide 20 mg tablet 20 mg PO DAILY ketotifen fumarate [Eye Itch Relief] 0.025 % (0.035 %) drops ophthalmic (eye) nitroglycerin 0.3 mg tablet, sublingual sublingual citalopram 40 mg tablet 40 mg PO DAILY Print Language: Greenlandic
[2024-09-15 15:21] LABS: Appearance Urine Clear; Color Urine Yellow; Glucose Urine UA Negative (Negative); Leukocyte Esterase Urine Negative (Negative); Nitrite Urine Negative (Negative); Urine Blood Negative (Negative); Urine Ketones Negative (Negative); Urine Protein Negative (Neg-Trace)
[2024-09-15] MEDS: Sodium Phosphate,Mono-Dibasic 133 ML ENEMA PR (15:37)
[2024-09-15 15:46] VITALS: BP 196/88; PULSE 63; RESP 14; TEMP 36.8; O2SAT 95
--- OUTSIDE RECORDS SUMMARY | 2024-09-15 16:14 | XMS_ITS | Encounter Summary ---
Author Name [facility] [facility] [place] Address [address] [place] [address] Care Team Providers Care Solderer Assembler Name Role Phone POLLY CLIFFORD Primary [...] Patient's Relationship to Policy Cherry [facility] (WNR) MEDICARE ADVANTAGE [facility] ([facility]) Jul 19, 2023 [id number] Rayne JACOBO PATIENT [employer] PRESCRIPT ION [id number] Jul 19, 2017 [id number] Rayne JACOBO PATIENT MEDICARE ([facility]) MEDICARE () PART A Sep 16, 2005 PART A [id number] [phone] YULIRayne GARCIA PATIENT MEDICARE ([facility]) MEDICARE () PART B Sep 16, 2005 PART B [id number] SUKI JACOBO SR PATIENT MEDICARE (WNR) MEDICARE (M) PART A Sep 16, 2005 PART A SUKI JACOBO SR PATIENT MEDICARE (WNR) MEDICARE (M) PART B Sep 16, 2005 PART B [id number] SUKI JACOBO SR PATIENT MEDICARE (WNR) MEDICARE (M) PART A Sep 16, 2005 PART A [id number] SUKI JACOBO SR PATIENT [facility] RX PRESCRIPT ION RX Jul 19, 2022 [id number] [id number] Rayne JACOBO PATIENT [facility] RX PRESCRIPT ION RX Jul 19, 2022 THPRX [id number] Rayne JACOBO PATIENT [facility] RX PRESCRIPT ION RX Jul 19, 2022 THPRX [id number] [phone] Rayne JACOBO PATIENT [facility] Jul 19, 2017 [id number] Rayne JACOBO PATIENT [facility] Jul 19, 2017 [facility] [id number] Rayne JACOBO PATIENT [facility] E Jul 19, 2017 [id number] Rayne JACOBO PATIENT [facility] Jul 21, 2013 (WNR) [id number] Rayne JACOBO PATIENT [facility] (WNR) TRICA RE(WN R) Jul 19, 2017 (WNR) [id number] Rayne JACOBO PATIENT Selected Encounter This section includes the information on record at [facility] for the Encounter. Date/Time Encounter Type Encounter Description Reason Pro vider Source Sep 07, 2024 08:11 AM Outpatient Encounter TELEPHONE TRIAGE IHE Encounter Template Text not used by [facility] Plan of Treatment: Future Appointments (+ 6 months) and Future Tests (+/- 45 days) The Plan of Treatment section includes [facility] care activities [facility] the [facility] [place] [facility] This section includes future appointments and future orders which are active, pending or scheduled. Future Appointments This section includes appointments that were scheduled to occur 6 months from the date of the Encounter, up to a maximum of 20 appointments. The data comes from all [facility] facilities. Appointment Date/Time Appointment Type Appointme nt Facility Name Sep 08, 2024 08:30 AM [facility] Sep 08, 2024 09[facility]00 AM [facility] Oct 12, 2024 08:00 AM AMBULATORY - REHAB MEDICIN E [facility] Active, Pending, and Scheduled Orders This section includes a listing of several types of active, pending, and scheduled orders, including clinic medications orders, diagnostic test orders, procedure orders and consult orders; where the start date of the order is 45 days before the date of the Encounter or 45 days after the date of theEncounter. The data comes from all [facility]. Test Date/Time Test Type Test Details Facility Name Sep 12, 2024 09:31 AM Consult Order PHYSICAL T HERAPY/[facility] OUTPT Cons Clothes Wringer's Choice [facility] Social History: Smoking Status (Most current) and Tobacco Use (All prior to encounter date) This section includes the most current, and the historical, smoking and tobacco- related health factors from the [place] facility where the Encounter took place. Current Smoking Status This section includes the most current smoking, or tobacco-related health factor, from the [place] facility where the Encounter took place. Date/Time Current Smoking Status Comment Facil ity Oct 29, 2023 06:12 PM VA-TOBACCO FORMER USER [facility] Tobacco Use History This section includes a history of the smoking, or tobacco-related health factors, that were collected on or before the date of the Encounter. The data comes from the [place] facility where the Encounter took place. Date/Time Smoking Status/Tobacco Use Comment F acility Oct 29, 2023 06:12 PM VA-TOBACCO QUIT 15 YRS OR MORE [facility] Aug 23, 2019 09:07 AM VA-TOBACCO FORMER USER [facility] Aug 23, 2019 09:07 AM VA-TOBACCO QUIT 15 YRS OR MORE [facility] [place] [facility] Jun 28, 2018 10:50 AM VA-TOBACCO FORMER USER [facility] [place] Jun 28, 2018 10:50 AM VA-TOBACCO QUIT 15 YRS OR MORE [facility] [place] Oct 14, 2017 09:20 AM QUIT TOBACCO USE > 7 YEARS AGO [facility] [place] [facility] Oct 05, 2016 01:02 PM QUIT TOBACCO USE > 7 YEARS AGO [facility] [place] [facility] Advance Directives: All historical and current Section Date Range: From patient's date of to the date document was created. This section includes ALL of a patient's completed or amended [place] Advance and Rescinded Directives. The entries below indicate that a directive exists for the patient, but an actual copy is not included with this document. The data comes from all [place] facilities. Date Advance Directives Provider Source Nov 16, 2023 ADVANCE DIRECTIVE MARC METZGER [place] [facility] Encounter Notes: All associated encounter notes This section contains the clinical notes associated to the Encounter. Date/Time Encounter Note(s) Provider Source Sep 07, 2024 08:11 AM RN PROGRESS NOTE: LOCAL TITLE: CCC: CLINICAL TRIAGE STANDARD TITLE: RN PROGRESS NOTE DATE OF NOTE: SEP 07, 2024@08:11:32 ENTRY DATE: SEP 07, 2024@08:11:32 AUTHOR: NICHOLE MCCRARY COSIGNER: URGENCY: STATUS: COMPLETED CCC: CLINICAL TRIAGE Has ADDENDA Patient Demographics Patient Name: LEONARDO JACOBO Patient Primary [address]: [address] [place] [id number] Patient Primary Phone: [phone] Patient : 1940 Patient Age: 83 Caller/Recipient Relation to Patient: Other If Other Describe Relation to Patient: linden Caller Name: daughter Emergency Contact: LINDEN PARDO Nursing Plan and Disposition Other course(s) of action Generated msg to PACT/Provider Nurse Summary Nurse Summary: Veterans daughterLinden reports [place] with knee pain. Daughter unsure which knee is painful, she is not currently with . Daughter reports some swelling to knee Requests call back from pact to [place] or her for appt Foreign [phone] [place] [phone] Advised caller that note will be forwarded to the provider and/or the PACT RN for review, further recommendations a, and/or follow-up. Clinical Contact Center Codes Clinic/Location: V1 [facility] RN IMPORTANT: This note was created by [facility] Clinical Contact Center staff. Please do not alert the staff member by adding them as a signer for future communications. Alerts are not monitored by this user. /alba/ Nichole RODRIGUEZ 2 CCC Nurse Signed: 09/07/2024 08:11 Receipt Acknowledged By: 09/08/2024 09:30 /alba/ MARC METZGER LPN License Practical Nurse 09/07/2024 09:05 /es/ LEONARDO BOWLES Registered Nurse 09/07/2024 ADDENDUM STATUS: COMPLETED Spoke with via tele. [place] states over the past 2 weeks his left knee has been a problem. There's something moving in there...It wan'ts to release...It's making me stumble and trying to buckle. referenced he had surgery on this knee long time ago, in high school they repaired the cartiledge . states the knee is swollen and has been using ice, he questions if there is fluid in his knee. endorses a pain level of 4 at rest, 7 w/movement. denies any recent traumatic trigger to this. [place] states he has been using APAP 500 mg in the AM, 250mg in the PM. Discussed w/PCP. Advised per PCP ok to take 1g Tylenol three times per day. No available PCP openings at this time. advised to come to sick call for eval. /alba/ LEONARDO BOWLES Registered Nurse Signed: 09/07/2024 09:04 NICHOLE MCCRARY [place] [facility]
--- OUTSIDE RECORDS SUMMARY | 2024-09-15 16:14 | XMS_ITS | Encounter Summary ---
Author Name [facility] [place] Address [address] [place] [id number] Care Team Providers Care Dressing Machine Operator Name Role Phone POLLY CLIFFORD [...] Cherry's Name Patient's Relationship to Policy Cherry [facility] (WNR) MEDICARE ADVANTAGE [facility] ([facility]) Jul 19, 2023 [id number] Rayne JACOBO PATIENT [facility] PRESCRIPT ION [id number] 1 Jul 19, 2017 [id number] [phone] Rayne JACOBO PATIENT MEDICARE (WN) MEDICARE (M) PART A Sep 16, 2005 PART A [id number] [id number] Rayne JACOBO PATIENT MEDICARE (WNR) MEDICARE (M) PART B Sep 16, 2005 PART B [id number] [id number] SUKI JACOBO SR PATIENT MEDICARE (WNR) MEDICARE (M) PART A Sep 16, 2005 PART A [id number] SUKI JACOBO SR PATIENT MEDICARE (WNR) MEDICARE (M) PART B Sep 16, 2005 PART B [id number] SUKI JACOBO SR PATIENT MEDICARE (WNR) MEDICARE (M) PART A Sep 16, 2005 PART A [id number] [phone] SUKI JACOBO SR PATIENT OPTUM RX PRESCRIPT ION RX Jul 19, 2022 THPRX [id number] [phone] Rayne JACOBO PATIENT OPTUM RX PRESCRIPT ION RX Jul 19, 2022 THPRX [id number] Rayne JACOBO PATIENT OPTUM RX PRESCRIPT ION RX Jul 19, 2022 THPRX [id number] [phone] Rayne JACOBO PATIENT [facility] Jul 19, 2017 [id number] [phone] AVELINASiddharthaRayne SCHUMACHER PATIENT [facility] Jul 19, 2017 [facility] [id number] Rayne JACOBO PATIENT [facility] TON ORELLANA E Jul 19, 2017 [id number] Rayne JACOBO PATIENT [facility] CE ORGANIZ US FAMIL Y Jul 21, 2013 (WNR) [id number] Rayne JACOBO PATIENT [facility] ([facility] TRICA RE(WN R) Jul 19, 2017 (WNR) [id number] [phone] Rayne JACOBO PATIENT Selected Encounter This section includes the information on record at [place] for the Encounter. Date/Time Encounter Type Encounter Description Reason Provider Source Aug 29, 2024 10:30 AM OFFICE O/P EST HI 40 MIN PRIMARY CARE/MEDICINE ICD-10-CM J44.9 Chronic obstructive pulmonary disease, unspecified FURCOLO,POLLY IHE Encounter Template Text not used by [place] Assessments - Encounter Diagnoses This section includes the primary and secondary diagnoses documented for the Encounter. Date/Time Primary/Secondary Diagnosis Diagnosis Name Provider Source Aug 29, 2024 11:23 AM PRIMARY Chronic obstructive pulmonary disease, unspecified FURCOLO,POLLY [facility] [place] [facility] Aug 29, 2024 11:23 AM SECONDARY Benign prostatic hyperplasia without lower urinry tract symp FURCOLO,POLLY [facility] [place] [facility] Aug 29, 2024 11:23 AM SECONDARY Chronic atrial fibrillation, unspecified FURCOLO,POLLY [facility] [place] [facility] Aug 29, 2024 11:23 AM SECONDARY Chronic hepatitis, unspecified FURCOLO,POLLY [facility] [place] [facility] Aug 29, 2024 11:23 AM SECONDARY Cyst of kidney, acquired FURCOLO,POLLY [facility] [place] [facility] Aug 29, 2024 11:23 AM SECONDARY Essential (primary) hypertension FURCOLO,POLLY [facility] [place] [facility] Aug 29, 2024 11:23 AM SECONDARY Local-rel symptc epi w simp prt seiz,not ntrct, w/o stat epi FURCOLO,POLLY [facility] [place] [facility] Aug 29, 2024 11:23 AM SECONDARY Mild cognitive impairment of uncertain or unknown etiology FURCOLO,POLLY [facility] [place] [facility] Aug 29, 2024 11:23 AM SECONDARY Polyneuropathy due to other toxic agents FURCOLO,POLLY [facility] [place] [facility] Aug 29, 2024 11:23 AM SECONDARY Radiculopathy, lumbar region FURCOLO,POLLY [facility] [place] [facility] Aug 29, 2024 11:23 AM SECONDARY Sleep apnea, unspecified FURCOLO,POLLY [facility] [place] [facility] Plan of Treatment: Future Appointments (+ 6 months) and Future Tests (+/- 45 days) The Plan of Treatment section includes future care activities for the patient from all [place] treatmentfacilities. This section includes future appointments and future orders which are active, pending or scheduled. Future Appointments This section includes appointments that were scheduled to occur 6 months from the date of the Encounter, up to a maximum of 20 appointments. The data comes from all [facility]. Appointment Date/Time Appointment Type Appointme nt Facility Name Sep 08, 2024 08:30 AM AMBULATORY - [facility] Sep 08, 2024 09:00 AM [facility] Oct 12, 2024 08:00 AM AMBULATORY - REHAB MEDICIN E [facility] Active, Pending, and Scheduled Orders This section includes a listing of several types of active, pending, and scheduled orders, including clinic medications orders, diagnostic test orders, procedure orders and consult orders; where the start date of the order is 45 days before the date of the Encounter or 45 days after the date of theEncounter. The data comes from all [facility]. Test Date/Time Test Type Test Details Facility Name Sep 12, 2024 09:31 AM Consult Order PHYSICAL T HERAPY/NHM OUTPT Cons Cotton Washer's Choice [facility] Vital Signs: All taken on the encounter date This section contains inpatient and outpatient Vital Signs collected on the date of the Encounter. Date/Time Temperature Pulse Blood Pressure Respiratory Rate SP02 Pain Height Weight Body Mass Index Source Aug 29, 2024 10:47 AM 98.4 56 133/71 16 96 0 220 33 [facility] Social History: Smoking Status (Most current) [...] 29, 2023 06:12 PM VA-TOBACCO FORMER USER [facility] Tobacco Use History This section includes a history of the smoking, or tobacco-related health factors, that were collected on or before the date of the Encounter. The data comes from the [place] facility where the Encounter took place. Date/Time Smoking Status/Tobacco Use Comment F acility Oct 29, 2023 06:12 PM VA-TOBACCO QUIT 15 YRS OR MORE [facility] Aug 23, 2019 09:07 AM VA-TOBACCO FOR[facility]ER [facility] Aug 23, 2019 09:07 AM VA-TOBACCO QUIT 15 YRS OR MORE [facility] Jun 28, 2018 10:50 AM VA-TOBACCO FOR[facility]ER [facility] Jun 28, 2018 10:50 AM VA-TOBACCO QUIT 15 YRS OR MORE [facility] Oct 14, 2017 09:20 AM QUIT TOBACCO USE > 7 YEARS AGO [facility] Oct 05, 2016 01:02 PM QUIT TOBACCO USE > 7 YEARS AGO [facility] Advance Directives: All historical and current [...] Nov 16, 2023 ADVANCE DIRECTIVE MARC METZGER [facility] Encounter Notes: All associated encounter notes This section contains the clinical notes associated to the Encounter. Date/Time Encounter Note(s) Provider Source Aug 29, 2024 12:14 PM CLINICAL WARNING: LOCAL TITLE: COMMUNICATION AUTHORIZATION STANDARD TITLE: CLINICAL WARNING DATE OF NOTE: AUG 29, 2024@12:14 ENTRY DATE: AUG 29, 2024@12:14:37 AUTHOR: MARC METZGER EXP COSIGNER: URGENCY: STATUS: COMPLETED Family/Caregiver Name: Primary: Linden Pardo Secondary: Tertiary: Authorized Clinic & Topics: All Clinic's & Topics: All Care/Coordination, Scheduling Appointments, Prescriptions, Test Results Primary Care: All Care/Coordination, Scheduling Appointments, Prescriptions, Test Results Mental Health: All Care/Coordination, Scheduling Appointments, Prescriptions, Test Results Specialty Care: All Care/Coordination, Scheduling Appointments, Prescriptions, Test Results I reeust and authorize [facility] [employer] [facility] to release the information specified below to [...] Practical Nurse Signed: 08/29/2024 12:17 MARC METZGER [place] [facility] [place] [facility] Aug 29, 2024 11:00 AM PHYSICIAN NOTE: LOCAL TITLE: MD NOTE STANDARD TITLE: PHYSICIAN NOTE DATE OF NOTE: AUG 29, 2024@11:00 ENTRY DATE: AUG 29, 2024@11:00:16 AUTHOR: POLLY CLIFFORD COSIGNER: URGENCY: STATUS: COMPLETED DONNELLLEONARDO Victor is a 83 year old WHITE MALE who is being seen today in primary care for ER f/u of chest pain CARE TEAM Community Primary Care Provider: Dr. Curry Nicholson [facility] Specialists: Community Specialists: [facility] Dr. Eduardo Son [facility] HISTORY PERIOD OF SERVICE - [place] [facility] CONNECTED % - [address] [place], food operations manager radar, air control, [phone] HISTORY OF PRESENT ILLNESS Patient presents today for to ER follow-up of chest pain RELEVANT PAST MEDICAL HISTORY Active problems - Computerized Problem List is the source for the followin. Chronic obstructive pulmonary disease sees [facility] environmental construction engineer 2. Benign Prostatic Hypertrophy without Outflow Obstruction (SCT [id number]) 3. Lumbosacral radiculopathy 4. Multiple renal cysts [...] 10. Atrial fibrillation xarelto. cardiology Dr. [facility]. h/o cardioversion 11. Seizure disorder nonconvulsive seizures. on [facility], sees Dr. Son 12. Cerebral atrophy no h/o head injury 13. 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 Chronic obstructive pulmonary disease sees [facility] environmental construction engineer 2. Benign Prostatic Hypertrophy without Outflow Obstruction ([facility] [id number]) 3. Lumbosacral radiculopathy 4. Multiple renal cysts [...] 10. Atrial fibrillation xarelto. cardiology Dr. [facility]. h/o cardioversion. on xarelto- no falls 11. [...] patient care, review of records and documentation. /filippo CLIFFORD D.O. PHYSICIAN Signed: 08/29/2024 11:23 POLLY CLIFFORD [facility] Aug 29, 2024 10:53 AM PREVENTIVE MEDICINE [...] Practical Nurse Signed: 08/29/2024 10:53 MARC METZGER [facility]
--- OUTSIDE RECORDS SUMMARY | 2024-09-15 16:14 | XMS_ITS ---
Author Name [place] Address [address] [place] [address] Care Team Providers Care Wood Technologist Name Role Phone POLLY CLIFFORD Primary Care [...] Cherry's Name Patient's Relationship to Policy Cherry [facility] (WNR) MEDICARE ADVANTAGE [facility] ([facility]) Jul 19, 2023 [id number] Rayne JACOBO PATIENT [facility] PRESCRIPT ION [id number] 1 Jul 19, 2017 [id number] Rayne JACOBO PATIENT MEDICARE ([facility]) MEDICARE () PART A Sep 16, 2005 PART A [id number] Rayne JACOBO PATIENT MEDICARE ([facility]) MEDICARE (M) PART B Sep 16, 2005 PART B [id number] SUKI JACOBO SR PATIENT MEDICARE (WNR) MEDICARE (M) PART A Sep 16, 2005 PART A [id number] SUKI JACOBO SR PATIENT MEDICARE (WNR) MEDICARE (M) PART B Sep 16, 2005 PART B [id number] [phone] SUKI JACOBO SR PATIENT MEDICARE (WNR) MEDICARE (M) PART A Sep 16, 2005 PART A [id number] SUKI JACOBO SR PATIENT OPTUM RX PRESCRIPT ION RX Jul 19, 2022 THPRX [id number] Rayne JACOBO PATIENT OPTUM RX PRESCRIPT ION RX Jul 19, 2022 THPRX [id number] [phone] Rayne JACOBO PATIENT OPTUM RX PRESCRIPT ION RX Jul 19, 2022 THPRX [id number] Rayne JACOBO PATIENT [facility] TON MAR Jul 19, 2017 [id number] [phone] Rayne JACOBO PATIENT [facility] Jul 19, 2017 RUST [id number] [phone] Rayne JACOBO PATIENT [facility] TON ORELLANA E Jul 19, 2017 [id number] Rayne JACOBO PATIENT [facility] CE ORGANIZ US FAMIL Y Jul 21, 2013 (WNR) [id number] Rayne JACOBO PATIENT [facility] ([facility]) [facility] TRICA RE(WN R) Jul 19, 2017 (WNR) [id number] [phone] Rayne JACOBO PATIENT Selected Encounter This section includes the information on record at [place] for the Encounter. Date/Time Encounter Type Encounter Description Reason Pro vider Source Aug 24, 2024 03:03 PM Outpatient Encounter COMMUNITY CARE CONSULT IHE Encounter Template Text not used by [place] Plan of Treatment: Future Appointments (+ 6 months) and Future Tests (+/- 45 days) The Plan of Treatment section includes future care activities for the patient from all [place] [facility] This section includes future appointments and future orders which are active, pending or scheduled. Future Appointments This section includes appointments that were scheduled to occur 6 months from the date of the Encounter, up to a maximum of 20 appointments. The data comes from all [facility]. Appointment Date/Time Appointment Type Appointme nt Facility Name Aug 29, 2024 10:30 AM [facility]UL[facility] - [facility] Sep 08, 2024 08:30 AM AMBULAT[facility] - [facility] Sep 08, 2024 09:00 AM [facility] Oct 12, 2024 08:00 AM AMBULATORY - REHAB MEDICIN E [facility] Active, Pending, and Scheduled Orders This section includes a listing of several types of active, pending, and scheduled orders, including clinic medications orders, diagnostic test orders, procedure orders and consult orders; where the start date of the order is 45 days before the date of the Encounter or 45 days after the date of theEncounter. The data comes from all [facility]. Test Date/Time Test Type Test Details Facility Name Sep 12, 2024 09:31 AM Consult Order PHYSICAL T HERAPY/NHM OUTPT Cons Development Advisor's Choice [facility] Social History: Smoking Status (Most current) [...] 29, 2023 06:12 PM VA-TOBACCO FORMER USER [facility] Tobacco Use History This section includes a history of the smoking, or tobacco-related health factors, that were collected on or before the date of the Encounter. The data comes from the [place] facility where the Encounter took place. Date/Time Smoking Status/Tobacco Use Comment F acility Oct 29, 2023 06:12 PM VA-TOBACCO QUIT 15 YRS OR MORE [place] [facility] [place] [facility] Aug 23, 2019 09:07 AM VA-TOBACCO FORMER USER [place] [facility] [place] [facility] Aug 23, 2019 09:07 AM VA-TOBACCO QUIT 15 YRS OR MORE [place] [facility] [place] [facility] Jun 28, 2018 10:50 AM VA-TOBACCO FORMER USER [place] [facility] [place] [facility] Jun 28, 2018 10:50 AM VA-TOBACCO QUIT 15 YRS OR MORE [place] [facility] [place] [facility] Oct 14, 2017 09:20 AM QUIT TOBACCO USE > 7 YEARS AGO [place] [facility] [place] [facility] Oct 05, 2016 01:02 PM QUIT TOBACCO USE > 7 YEARS AGO [place] [facility] [place] [facility] Advance Directives: All historical and [...] Nov 16, 2023 ADVANCE DIRECTIVE MARC METZGER [place] [facility] Encounter Notes: All associated encounter notes This section contains the clinical notes associated to the Encounter. Date/Time Encounter Note(s) Provider Source Aug 24, 2024 03:03 PM NONVA NOTE: LOCAL TITLE: [facility] COORD PLAN STANDARD TITLE: NONVA NOTE DATE OF NOTE: AUG 24, 2024@15:03 ENTRY DATE: AUG 24, 2024@15:03:40 AUTHOR: SEGUNDO MCFARLANE COSIGNER: URGENCY: STATUS: COMPLETED Emergency Notification Intake Date Presenting to the Facility: Jun Method of Contact: Notified from [facility] worklist Notification ID: [id number] [facility] Referral #: [id number] [facility] Name: Hospital: [facility] Address: City: [place] State: [place] Zip Code: Phone : Community Facility Point of Contact: Name: Ana Phone: Chief complaint: BOWEL BLOCKAGE Primary Diagnosis: Disposition Discharged Date of discharge: Jun Discharge to Comment: ER Only /alba/ SEGUNDO MALDONADO Signed: 08/24/2024 15:05 SEGUNDO MCFARLANE EMDEN
--- OUTSIDE RECORDS SUMMARY | 2024-09-15 16:14 | XMS_ITS ---
Author Name [facility] [place] [facility] [place] Address [address] [place] [address] Care Team Providers Care Supervisor Of Communications Name Role Phone POLLY CLIFFORD Primary Care [...] Cherry's Name Patient's Relationship to Policy Cherry [facility] (WNR) MEDICARE ADVANTAGE [facility] (WN) Jul 19, 2023 [id number] Rayne PALUMBO PATIENT [place] PRESCRIPT ION [id number] Jul 19, 2017 [id number] Rayne PALUMBO PATIENT MEDICARE (WN) MEDICARE () PART A Sep 16, 2005 PART A [id number] Rayne PALUMBO PATIENT MEDICARE (WNR) MEDICARE () PART B Sep 16, 2005 PART B [id number] [id number] USKI PALUMBO SR PATIENT MEDICARE (WNR) MEDICARE (M) PART A Sep 16, 2005 PART A [id number] SUKI PALUMBO SR PATIENT MEDICARE (WNR) MEDICARE (M) PART B Sep 16, 2005 PART B [id number] SUKI PALUMBO SR PATIENT MEDICARE (WNR) MEDICARE (M) PART A Sep 16, 2005 PART A [id number] [phone] SUKI PALUMBO SR PATIENT OPTUM RX PRESCRIPT ION RX Jul 19, 2022 THPRX [id number] Rayne PALUMBO PATIENT OPTUM RX PRESCRIPT ION RX Jul 19, 2022 THPRX [id number] Rayne PALUMBO PATIENT OPTUM RX PRESCRIPT ION RX Jul 19, 2022 THPRX [id number] [facility] TON [facility] Jul 19, 2017 [id number] [phone] Rayne PALUMBO PATIENT [facility] Jul 19, 2017 [facility] [id number] Rayne PALUMBO PATIENT PENDING SALE TO [facility] E Jul 19, 2017 [id number] [phone] Rayne PALUMBO PATIENT [facility] CE ORGANIZ US FAMIL Y Jul 21, 2013 (WNR) [id number] Rayne PALUMBO PATIENT [facility]ICA RE(WN R) Jul 19, 2017 (WNR) [id number] Rayne PALUMBO PATIENT Selected Encounter This section includes the information on record at [place] for the Encounter. Date/Time Encounter Type Encounter Description Reason Pro vider Source Aug 29, 2024 08:29 AM Outpatient Encounter PRIMARY CARE/MEDICINE IHE Encounter Template Text not used by [facility] Plan of Treatment: Future Appointments (+ 6 months) and Future Tests (+/- 45 days) The Plan of Treatment section includes future care activities for the [facility] [place] [facility] This section includes future appointments and future orders which are active, pending or scheduled. Future Appointments This section includes appointments that were scheduled to occur 6 months from the date of the Encounter, up to a maximum of 20 appointments. The data comes from all [facility] facilities. Appointment Date/Time Appointment Type Appointme nt Facility Name Sep 08, 2024 08:30 AM [facility] Sep 08, 2024 09:00 AM [facility] Oct 12, 2024 08:00 AM AMBULATORY - REHAB MEDICIN E [facility] Active, Pending, and Scheduled Orders This section includes a listing of several types of active, pending, and scheduled orders, including clinic medications orders, diagnostic test orders, procedure orders and consult orders; where the start date of the order is 45 days before the date of the Encounter or 45 days after the date of theEncounter. The data comes from all [facility]. Test Date/Time Test Type Test Details Facility Name Sep 12, 2024 09:31 AM Consult Order PHYSICAL T HERAPY/NHM OUTPT Cons Associate Civil Engineer's Choice [facility] Vital Signs: All taken on the encounter date This section contains inpatient and outpatient Vital Signs collected on the date of the Encounter. Date/Time Temperature Pulse Blood Pressure Respiratory Rate SP02 Pain Height Weight Body Mass Index Source Aug 29, 2024 10:47 AM 98.4 56 133/71 16 96 0 220 33 [facility] Social History: Smoking Status (Most [...] 29, 2023 06:12 PM VA-TOBACCO FORMER USER [facility] Tobacco Use History This section includes a history of the smoking, or tobacco-related health factors, that were collected on or before the date of the Encounter. The data comes from the [place] facility where the Encounter took place. Date/Time Smoking Status/Tobacco Use Comment F acility Oct 29, 2023 06:12 PM VA-TOBACCO QUIT 15 [facility] Aug 23, 2019 09:07 AM VA-TOBACCO FOR[facility] Aug 23, 2019 09:07 AM VA-TOBACCO QUIT 15 [facility]RS OR MORE [facility] Jun 28, 2018 10:50 AM [facility] Jun 28, 2018 10:50 AM [place]-TOBACCO QUIT 15 YRS OR MORE [facility] Oct 14, 2017 09:20 AM QUIT TOBACCO USE > 7 YEARS AGO [facility] Oct 05, 2016 01:02 PM QUIT TOBACCO USE > 7 YEARS AGO [facility] Advance Directives: All historical and current Section [...] Nov 16, 2023 ADVANCE DIRECTIVE MARC METZGER [facility] Encounter Notes: All associated encounter notes This section contains the clinical notes associated to the Encounter. Date/Time Encounter Note(s) Provider Source Aug 29, 2024 08:29 AM ADMINISTRATIVE NOT E: LOCAL TITLE: FAX/MAIL RECEIVED STANDARD TITLE: ADMINISTRATIVE NOTE DATE OF NOTE: AUG 29, 2024@08:29 ENTRY DATE: AUG 29, 2024@08:29:41 AUTHOR: MARC METZGER EXP COSIGNER: URGENCY: STATUS: COMPLETED Document Received On: Aug Document Type: Emergency Department Note Date of Service: Jul Facility and or Provider: [facility] Contact Information: PCP of Record: POLLY CLIFFORD Next visit with PCP: 08/29/2024 10:30 [facility] PACT EIGHT PRESCRIPTION CLERK LENSES Primary Care May keep copies of this document for up to 14 days and send the original for scanning. Chief Complaint Admit Date Chest Pain August 02, 2024 10:32am White Blood Count August 02, 2024 9:59am [...] 02, 2024 10:28am Negative Negative Urine Specific [place] August 02, 2024 10:28am 1.010 1.005-1.025 Urine [...] August 02, 2024 9:59am 56 uL 39-117 XRay Report Signed Patient: Rm Palumbo MR#: [id number] : 1940 Acct:[id number] Age/Sex: 83 / M ADM Date: 5 Loc: HO.ED Attending Dr: Ordering Physician: Afshan Haji Date of Service: 08/02/24 Procedure(s): XR chest 2V Accession Number(s): [id number] cc: Grabiel Kasper MD; Afshan Haji~ EXAMINATION: XR CHEST CLINICAL INFORMATION: left sided [...] chest 2V IMPRESSION: No active pulmonary disease. ] Hospital Discharge Instructions Additional Instructions You were evaluated in the Emergency Department today for chest pain. Your evaluation has shown no signs of medical conditions requiring emergent intervention at this time, however I recommend that you follow up with your primary care provider or your bankruptcy paralegal as soon as possible for further testing as an outpatient. If you do not have one, a referral has been provided. Please call them to make an appointment, they will not call you. Continue all home medications as prescribed. Return to the Emergency Department if you experience worsening or uncontrolled chest pain, shortness of breath, light headedness, feeling faint, nausea, vomiting, or any other concerning symptoms. /alba/ MARC METZGER LPN License Practical Nurse Signed: 08/29/2024 08:51 MARC METZGER [facility]
--- OUTSIDE RECORDS SUMMARY | 2024-09-15 16:14 | XMS_ITS | Continuity of Care Document ---
Author Name [facility] Organization [facility] Care Team Providers Care Curb Machine Operator Name Role Phone [facility] Unavailable Unavailable Problems Combined list of problems from Department of Defense and Veterans Affairs facilities. It does not include entries that were removed or entered in error. Problem Status Onset Date Problem Type Date of Resolution Comments Source Atrial fibrillation Active Condition Oct 05, 2016 Entered By: MALGORZATA CREWS Comment: jennifer. cardiology [facility]. h/o cardioversion [facility] Benign essential hypertension Active Condition [facility] Benign Prostatic Hypertrophy without Outflow Obstruction (SCT [id number]) Active Condition [facility] Cerebral atrophy Active Condition Oct 05, 2016 Entered By: MALGORZATA CREWS Comment: no h/o head injury [facility] Chronic obstructive pulmonary disease Active Condition Nov 15 Entered By: POLLY CLIFFORD Comment: sees [facility] cognos developer [facility] Cognitive disorder Active Condition Oct 05, 2016 Entered By: MALGORZATA CREWS Comment: 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 on [facility], sees Dr. Son [facility] Sleep apnea Active Condition Jan 04, 2017 Entered By: MALGORZATA CREWS Comment: mild 01/02 [facility] Toxic polyneuropathy Active Condition [facility] Diagnosis: ICD-10-CM M23.92 Unspecified internal derangement of left knee Active Diagnosis [facility] Diagnosis: ICD-10-CM M25.562 Pain in left knee Active Diagnosis [facility] Diagnosis: ICD-10-CM J44.9 Chronic [...] of spectacles and contact lenses Active Diagnosis [facility] Medications Combined list of outpatient medications from [...] TWICE DAILY [facility]AL [facility] ALBUTEROL 90MCG/ACTUA T (CFC-F) INHL,ORAL,8 .5GM DOSE COUNTER INHALE 2 PUFFS BY MOUTH EVERY 4 HOURS NEEDED RESPIR ATORY (INHAL ATION) ACTIVE MEREDITH CREWS [address] [facility] ATORVASTATI N CA 40MG TAB TAKE ONE-HALF TABLET BY MOUTH AT BEDTIME ORAL ACTIVE FURCOLO,T ROQUE 2023 [facility] carboxymeth ylcel 0.5% EYE DROP [2 X15ML] INSTILL 1 DROP INTO EACH EYE FOUR TIMES A DAY 03/16/2024 [id number] VIVI WARNER 2023 15 [facility] CARBOXYMETH YLCELLULOSE NA 0.5% SOLN,OPH INSTILL 1 DROP INTO EACH EYE FOUR TIMES A DAY OPHTHA LMIC 03/16/2024 [id number] VIVI WARNER [address] [facility] [facility] CITALOPRAM HYDROBROMID E 40MG TAB TAKE ONE TABLET BY MOUTH ONCE DAILY ORAL ACTIVE FURCOLO,T ROQUE [facility] DILTIAZEM HCL 90MG 12HR CAP,SA TAKE 2 CAPSULES BY MOUTH DAILY ORAL ACTIVE MEREDITH CREWS TH [facility] EYELID CLEANSER,EY E SCRUB PAD USE 1 PAD TOPICALL Y ONCE DAILY TOPICA L ACTIVE 07/11/2025 [id number] 4 Rayne MARMOLEJO 2023 90 [facility] FUROSEMIDE 20MG TAB TAKE ONE TABLET BY MOUTH ONCE DAILY NEEDED ORAL ACTIVE FURCOLO,T ROQUE 2023 [facility] KETOTIFEN 0.025 % EYE DROP [10 ML] INSTILL 1 DROP INTO EACH EYE EVERY 12 HOURS FOR ALLERGIC CONJUNCT IVITIS (IF YOU WEAR CONTACT LENSES, WAIT 10 MINUTES BEFORE INSERTIN G LENSES) 11/17/2023 [id number] 4 SHALONDA KOENIG 2023 15 [facility] KETOTIFEN 0.025% SOLN,OPH INSTILL 1 DROP INTO EACH EYE EVERY 12 HOURS FOR ALLERGIC CONJUNCT IVITIS (IF YOU WEAR CONTACT LENSES, WAIT 10 MINUTES BEFORE INSERTIN G LENSES) OPHTHA LMIC SUSPEND ED 07/11/2025 [id number] 5 Rayne MARMOLEJO MICHELAELE 2023 15 [facility] KETOTIFEN 0.025% SOLN,OPH INSTILL 1 DROP INTO EACH EYE EVERY 12 HOURS FOR ALLERGIC CONJUNCT IVITIS (IF YOU WEAR CONTACT LENSES, WAIT 10 MINUTES BEFORE INSERTIN G LENSES) OPHTHA LMIC DISCONT INUED 01/21/2025 [id number] 4 FURKARLALO,T ROQUE 2023 15 [facility] KETOTIFEN 0.025% SOLN,OPH INSTILL 1 DROP INTO EACH EYE EVERY 12 HOURS FOR ALLERGIC CONJUNCT IVITIS (IF YOU WEAR CONTACT LENSES, WAIT 10 MINUTES BEFORE INSERTIN G LENSES) OPHTHA LMIC DISCONT INUED 11/17/2023 [id number] Helena KOENIG 2022 15 [facility] LEVETIRACET AM 500MG TAB TAKE TWO TABLETS BY MOUTH TWICE DAILY ORAL ACTIVE FURCOLO,T ROQUE 2023 [facility] MINERAL OIL,LIGHT/P ETROLATUM (PF) OINT,OPH APPLY THIN RIBBON INTO EACH EYE AT BEDTIME FOR DRY EYE OPHTHA LMIC 02/16/2024 [id number] 4 ROGERHelena Henley NDREW E 2022 3 [facility] [...] A DAY FOR DRY EYE OPHTHA LMIC SUSPEND ED 07/11/2025 [id number] 5 Rayne MARMOLEJO ICHELE 2024 45 [facility] PREDNISOLON E ACETATE 1% SUSP,OPH INSTILL 1 DROP INTO EACH EYE TWICE DAILY INFLAMMA TORY DRY EYE SHAKE WELL BEFORE USING OPHTHA LMIC ACTIVE 07/11/2025 [id number] 5 Rayne MARMOLEJO ICHELE 2023 5 [facility] PSYLLIUM [...] 2023 [facility] TAMSULOSIN HCL 0.4MG CAP TAKE 1 CAPSULE BY MOUTH ONCE DAILY ORAL ACTIVE FURCOLO,T ROQUE 2023 [facility] UMECLIDINIU M 62.5MCG/ALFA ANTEROL 25MCG/ACTUA T INH,ORAL,30 D INHALE 1 INHALATI ON BY MOUTH ONCE DAILY RESPIR ATORY (INHAL ATION) ACTIVE FURCOLO,T ROQUE 2023 [facility] Allergies, Adverse Reactions, Alerts Combined list of allergies from Department of Defense and Veterans Affairs facilities. It does not include entries that were removed or entered in error. Substance Category Reaction Severity Reaction type Status Date Reported Comments Source Codeine Drug allergy (disorder) active 7 [facility] CODEINE Propensity to adverse reactions to drug (finding) active 7 [facility] Hydrocodone Drug allergy (disorder) Anxiety active 7 [facility] HYDROCODONE Drug allergy (disorder) active 4 [facility] Piroxicam Drug allergy (disorder) active 7 [facility] PIROXICAM Propensity to adverse reactions to drug (finding) active [address] [facility] VICODIN Propensity to adverse reactions to drug (finding) Anxiety active 7 [facility] [place] [facility] Immunizations Combined list of available immunizations from the Department of Defense and Veterans Affairs facilities. Immunization Series Date Given Administered By Site Reaction Lot Number CVX Code Drug Risk Manager Status Comments Source INFLUENZA, UNSPECIFIED FORMULATION 2023 88 complet ed [facility] INFLUENZA, UNSPECIFIED FORMULATION 2022 88 complet ed [facility] [place] [facility] COVID-19 (MODERNA), MRNA, LNP-S, PF, 100 MCG/0.5 ML DOSE 2 2020 207 complet ed MOD; [id number]; 1 [facility] COVID-19 (MODERNA), MRNA, LNP-S, PF, 100 MCG/0.5 ML DOSE 1 2020 207 complet ed MOD; [id number]; 1 [facility] [place] [facility] INFLUENZA, UNSPECIFIED FORMULATION 2019 88 complet ed [facility] [facility] PNEUMOCOCCAL POLYSACCHARID E PPV23 2019 33 complet ed [facility] INFLUENZA, SEASONAL, INJECTABLE 2018 141 complet ed [place] [facility] [facility] [...] CONJUGATE PCV 13 2016 133 complet ed [place] [facility] FLU,3 YRS (HISTORICAL) 2015 88 complet ed [place] - High dose [facility] PNEUMOCOCCAL CONJUGATE PCV 13 2015 133 complet ed [place] [facility] ZOSTER (HISTORICAL) 2015 121 complet ed [place] [facility] TDAP 2015 115 complet ed [place] [facility] FLU,3 YRS (HISTORICAL) 2014 88 complet ed [place] [facility] FLU,3 YRS (HISTORICAL) 2013 88 complet ed [place] [facility] PNEUMOCOCCAL CONJUGATE PCV 13 2013 133 complet ed [place] [facility] FLU,3 YRS (HISTORICAL) 2012 88 complet ed [place] [facility] TDAP 2012 115 complet ed [place] [facility] FLU,3 YRS (HISTORICAL) 2011 88 complet ed [place] [facility] FLU,3 YRS (HISTORICAL) 2010 88 complet ed [place] [facility] TD(ADULT) UNSPECIFIED FORMULATION 2009 139 complet ed [place] [facility] FLU,3 YRS (HISTORICAL) 2009 88 complet ed [place] [facility] FLU,3 YRS (HISTORICAL) 2009 88 complet ed [place] -[id number]-Ulh demic flu [facility] FLU,3 YRS (HISTORICAL) 2008 88 complet ed [place] [facility] ZOSTER (HISTORICAL) 2007 121 complet ed [place] [facility] FLU,3 YRS (HISTORICAL) 2007 88 complet ed [place] [facility] FLU,3 YRS (HISTORICAL) 2006 88 complet ed [place] [facility] FLU,3 YRS (HISTORICAL) 2005 88 complet ed [place] [facility] FLU,3 YRS (HISTORICAL) 2004 88 complet ed [place] [facility] PNEUMOCOCCAL CONJUGATE PCV 13 2004 133 complet ed [place] [facility] TD(ADULT) UNSPECIFIED FORMULATION 2003 139 complet ed [place] [facility] Vital Signs Combined list of inpatient and outpatient Vital Signs from Department of Defense and Veterans Affairs, ranging from 12 months to all on record, depending upon the facility. Vital Sign Value Date Comments Source SYSTOLIC BLOOD PRESSURE 129 09/08/19 25 09:12:51 [facility] DIASTOLIC BLOOD PRESSURE 55 025 09:12:51 [facility] PULSE OXIMETRY 96 09/08/2024 09:12:51 [facility] TEMPERATURE 98.1 09/08/2024 09:12:51 [facility] PULSE 61 09/08/2024 09:12:51 [facility] RESPIRATION 18 09/08/2024 09:12:51 [facility] SYSTOLIC BLOOD PRESSURE 133 08/29/19 10:47:38 [facility] DIASTOLIC BLOOD PRESSURE 71 025 10:47:38 [facility] PULSE OXIMETRY 96 08/29/2024 10:47:38 [facility] WEIGHT 220 08/29/2024 10:47:38 [facility] BMI 33 kg/m2 08/29/2024 10:47:38 [facility] PAIN 0 08/29/2024 10:47:38 [facility] TEMPERATURE 98.4 08/29/2024 10:47:38 [facility] PULSE 56 08/29/2024 10:47:38 [facility] RESPIRATION 16 08/29/2024 10:47:38 [facility] SYSTOLIC BLOOD PRESSURE 127 11/16/19 24 11:00:02 [facility] DIASTOLIC BLOOD PRESSURE 74 024 11:00:02 [facility] PULSE OXIMETRY 94 11/16/2023 11:00:02 [facility] WEIGHT 218 11/16/2023 11:00:02 [facility] BMI 32 kg/m2 11/16/2023 11:00:02 [facility] [...] from Department of Veterans Affairs facilities going backup to the last 18 months, not all VA inpatient encounters are included; 2) Encounters from the Department of Defense facilities going backup to 280 months. Location Location Details Encounter Type Encounter Number Reason For Visit Attending Provider ADM Date DC Date Status Disposition Source [facility] EAR IMPRESSION [id number] Diagnos is: ICD-10- CM Z46.1 Encount er for fitting and adjustm ent of hearing aid Preet ANN 03/16 [facility] REPAIR & ADJUST SPECTACLES [id number] Diagnos is: ICD-10- CM Z46.0 Encount er for fit/adj st of spectac les and contact lenses RICHIE KIDD 03/17 [facility] DETERMINE REFRACTIVE STATE [id number] Diagnos is: ICD-10- CM H43.813 Vitreou s kemer sulaiman us LEONARD J 03/17 [facility] Outpatient [facility]counter [id number] 03/25 [facility] Out[facility]counter [id number] 03/27 [facility] Out[facility]counter [id number] 04/04 [facility] Out[facility] Encounter [id number] 05/03 [facility] Out[facility]counter [id number] 06/03 [facility] Out[facility] Encounter [id number] 06/17 [facility] HEARING AID REPAIR/MOD IFYING [id number] Diagnos is: ICD-10- CM Z46.1 Encount er for fitting and adjustm ent of hearing aid RAPHAEL CALLE 07/01 [facility] Out[facility] Encounter [id number] 07/20 [facility] Out[facility] Encounter [id number] 07/21 [facility] Out[facility] Encounter [id number] 07/23 [facility] INTRM OPH EXAM EST PATIENT [id number] Diagnos is: ICD-10- CM 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 VIVI WARNER 07/30 [facility] Out[facility] Encounter [id number] 07/30 [facility] Outpatient Encounter [id number] 08/01 [facility] Out[facility] Encounter [id number] 08/19 [facility] HEARING AID REPAIR/MOD IFYING [id number] Diagnos is: ICD-10- CM Z46.1 Encount er for fitting and adjustm ent of hearing aid HUBER ESPINOZA 10/10 [facility] Out[facility] Encounter [id number] SHAINA TERRAZAS 10/24 [facility] Out[facility] Encounter [id number] 10/28 [facility] OFFICE O/P [place] 60 MIN [id number] Diagnos is: ICD-10- CM J44.9 Chronic obstruc tive pulmona ry disease , unspeci fied FURCOLO,TI NA 11/15 [facility] Out[facility] Encounter [id number] 12/02 [facility] Out[facility]counter [id number] 12/05 [facility] Outpatient [facility]counter [id number] 12/14 [facility] Out[facility] Encounter [id number] 12/24 [facility] HEARING AID FITTING/CH ECKING [id number] Diagnos is: ICD-10- CM Z46.1 Encount er for fitting and adjustm ent of hearing aid Preet ANN 12/26 [facility] OFFICE O/P EST LOW 20 MIN [id number] Diagnos is: ICD-10- CM K59.00 Constip ation, unspeci fied FURCOLO,TI NA 12/30 [facility] Outpatient Encounter [id number] 01/20 [facility] Out[facility] Encounter [id number] 01/26 [facility] Outpatient Encounter [id number] 02/03 [facility] Out[facility] Encounter [id number] 02/03 [facility] Out[facility] Encounter [id number] 02/03 [facility] Outpatient Encounter [id number] 02/07 [facility] INTRM OPH EXAM EST PATIENT [id number] Diagnos is: ICD-10- CM H10.45 Other chronic allergi c conjunc tiVIVI Currie 02/09 [facility] Out[facility] Encounter [id number] 02/09 [facility] Out[facility] Encounter [id number] 1.05/23 [facility] Out[facility] Encounter [id number] 05/28 [facility] Out[facility] Encounter [id number] 06/22 [facility]counter [id number] 1.07/01 [facility] Out[facility] Encounter [id number]/05 [facility] INTRM OPH EXAM EST PATIENT [id number] Diagnos is: ICD-10- CM L71.8 Other rosacea REANNA MARMOLEJO 07/10 [facility] Out[facility] Encounter [id number] 08/24 [facility] Out[facility] Encounter [id number] 08/29 [facility] OFFICE O/P EST HI 40 MIN [id number] Diagnos is: ICD-10- CM J44.9 Chronic obstruc tive pulmona ry disease , unspeci fied FURCOLO,TI NA 08/29 [facility] Outpatient [facility]counter [id number] 09/07 [facility] OFF/OP EST NOVEMBER X REQ PHY/QHP [id number] Diagnos is: ICD-10- CM M25.562 Pain in left knee REANNA BOWLES S 09/08 [facility] OFFICE O/P EST MOD 30 MIN [id number] Diagnos is: ICD-10- CM M23.92 Unspeci fied interna l derange ment of left knee KIMBERLEE WAGNER 09/08 [facility] Social History Combined list of available smoking, tobacco, and other social history from Department of Defense and Veterans Affairs facilities. Social History Type Response Date Comment Sourc e Tobacco smoking status NHIS VA-TOBACCO QUIT 15 YRS OR MORE 10/29/2023 [facility] History of tobacco use VA-TOBACCO FORMER USER 10/29/2023 [facility] History of tobacco use VA-TOBACCO QUIT 15 YRS OR MORE 08/23/2019 [facility] History of tobacco use VA-TOBACCO FORMER USER 06/28/2018 [facility] History of tobacco use QUIT TOBACCO USE > 7 YEARS AGO 10/14/2017 [facility] History of tobacco use QUIT TOBACCO USE > 7 YEARS AGO 10/05/[address] [facility] [place] [facility] This section is an empty social history section. DoD Plan of Care List of future care activities from Department of Veterans Affairs facilities. Additional future care activities may be listed in the Assessment and Plan section. Date/Time Care Activity Care Activity Detail Facili ty 10/12/2024 AMBULATORY - REHAB MEDICINE AMBULATORY - REHAB MEDICINE [facility] 09/12/2024 Consult Order PHYSICAL THERAPY /NH[facility] OUTPT Cons Public Affairs Specialist's Choice [facility] Advance Directives List of completed, amended, or rescinded Advance Directives on record at [facility] facilities. An actual copy of the Directive is not included. Date Advance Directive Provider Source 11/16/2023 ADVANCE DIRECTIVE MARC METZGER [facility]
--- OUTSIDE RECORDS SUMMARY | 2024-09-15 16:14 | XMS_ITS | Clinical Summary ---
Author Organization Patient Business Ser [facility] Address [address] [place] [address] Care Team Providers Care Stripper Opaquer Name Role Phone Grabiel Kasper MD Primary Care Pr ovider Allergies Active Allergy Reactions Criticality Noted Date Comments Codeine 10/05/2016 Hydrocodone Anxiety Low 10/05/2016 Hydrocodone-Acetaminoph en Anaphylaxis,Anxiety High 11/16/2005 Other Wheezing 12/07/2011 Penicillins 11/16/2005 does not recall RXN Phenacetin Medium 11/16/2005 does npt recall RXN Piroxicam Hives High 08/07/2008 Rofecoxib Anaphylaxis High 11/16/2005 Medications furosemide (LASIX) 20 mg tablet Take 1 tablet (20 mg total) by mouth 1 (one) time each day. Active loratadine (CLARITIN) 10 mg tablet Take 1 tablet (10 mg total) by mouth 1 (one) time each day. 4 Active fluticasone propionate (FLONASE) 50 mcg/actuation nasal spray Administer 1 spray into each nostril 1 (one) time each day. 4 Active rivaroxaban 1 mg/mL suspension for reconstitution Take 20 mg by mouth. Active acetaminophen (TYLENOL) 500 mg tablet Take 1 tablet (500 mg total) by mouth 2 (two) times a day. 7 Active Refresh Tears 0.5 % ophthalmic solution 4 Active clotrimazole-betam ethasone (LOTRISONE) 1-0.05 % cream Apply small amounts to affected area every 12 hours. Do not use for more than 14 days at a time 4 025 Active levETIRAcetam (KEPPRA) 1,000 mg tablet Take 1 tablet (1,000 mg total) by mouth 2 (two) times a day. 4 Active umeclidinium-vilan teroL (Anoro Ellipta) 62.5-25 mcg/actuation inhalerIndications :Chronic obstructive pulmonary disease, unspecified COPD type (CMS/HCC) Inhale 1 puff by mouth 1 (one) time each day. 1 each 4 025 Active tamsulosin (FLOMAX) 0.4 mg 24 hr capsule TAKE 1 CAPSULE BY MOUTH TWO TIMES A DAY 30 MINUTES AFTER SAME MEAL EACH DAY 180 capsule 1 4 Active ammonium lactate (LAC-HYDRIN) 12 % lotion Apply topically if needed. 4 Active Xarelto 20 mg tablet Take 1 tablet (20 mg total) by mouth 1 (one) time each day with dinner. 4 Active atorvastatin (LIPITOR) 20 mg tablet Take 1 tablet (20 mg total) by mouth at bedtime. 90 each 1 4 Active albuterol HFA (PROAIR HFA ; PROVENTIL HFA ; VENTOLIN HFA) 90 mcg/actuation inhaler Inhale 2 puffs by mouth every 4 (four) hours if needed for shortness of breath or wheezing. 6.7 g 2 4 Active nitroglycerin (NITROSTAT) 0.[address] 1 tablet (0.3 mg total) under the tongue every 5 (five) minutes if needed for chest pain. 90 tablet 4 Active dilTIAZem CD (CARDIZEM CD) 180 mg 24 hr capsule Take 1 capsule (180 mg total) by mouth 1 (one) time each day. 90 each 1 4 Active citalopram (CeleXA) 40 mg tablet TAKE 1 TABLET BY MOUTH DAILY 90 tablet 1 5 Active Active Problems Problem Noted Date Diagnosed Date Left carpal tunnel syndrome 06/14/2023 Lumbar radiculopathy 06/14/2023 Chronic venous insufficiency 11/18/2022 CAD (coronary artery disease) 10/13/2022 Overview (04/13/2024): Diffuse 3 vessel disease - Dr. Blake Actinic keratoses 08/20/2022 Stage 1 mild COPD by GOLD classification 022 Overview (04/13/2024): Last Assessment & Plan: Rm has stable stage I COPD. I explained him that the atypical chest pain is not the result of COPD and his dyspnea on exertion is the results of multiple factors including deconditioning and stage I COPD. I explained Rm and his daughter that if dyspnea exertion increases, he presented with more pronounced cough he should let me know immediately but in the meantime he should let him know his joint sealer regarding the left- sided chest pain. I do think that the pain is most likely muscular due to the fact that is reproducible when I touch the left side of his chest. Advised to come back to see me in 1 year or before if needed. Diffusion capacity of lung (dl), decreased 01/02 Overview (04/13/2024): Last Assessment & Plan: Differential diagnosis includes pulmonary hypertension. He may be affected also by the mild scaring tissue in both lungs. Further work-up is being done at this time. Dyspnea on exertion 12/10/2021 Overview (04/13/2024): Last Assessment & Plan: I explained Mr. Palumbo and his daughter that the dyspnea on exertion cannot be explained only by the mild abnormalities in his chest CT. He does not have pulmonary fibrosis or COPD. The isolated reduction in the diffusing capacity associated with atypical chest pain made me concerned about coronary artery disease. I do not see any recent echocardiogram assessing right-sided ventricular pressures so I have ordered 1. He may have some pulmonary hypertension in which case we will need to do further work-up. The plan is the followin. Echocardiogram 2. Depending of the results of the echocardiogram he may need a sleep study Once we have the echocardiogram if he has elevated pulmonary artery pressures in addition to the sleep study he may need also a cardiac catheterization of the left and right side of the heart. Cerebrovascular accident (CVA) 09/17/2021 Benign prostatic hyperplasia with urinary freque ncy 09/17/2021 Sleep apnea 06/13/2021 Overview (04/13/2024): Jan 04, 2017 Entered By: MALGORZATA CREWS Comment: mild 01/02 Last Assessment & Plan: Patient has sleep apnea. At some point he use a CPAP machine but he has not using since years. I advising the followin. Bring his old CPAP machine to the supplier (we do not know which one is the supplier, who ordered the study or where that he get the machine). 2. Wait for the results of the new sleep study to see if he needs Peripheral polyneuropathy 06/13/2021 Multiple renal cysts 06/13/2021 Osteoarthritis of right hip 09/17/2020 Depression 09/11/2020 Carotid artery stenosis 07/19/2019 Overview (04/13/2024): Carotid US: :IMPRESSION: 50-69% stenosis of the left internal carotid artery by visual inspection.0- 49% stenosis of the right internal carotid artery. Patient declined surgical intervention. Neural foraminal stenosis of cervical spine 11/18 Spinal stenosis, lumbar 02/26/2017 Atrial fibrillation 11/20/2015 Seizure disorder 11/20/2015 DDD (degenerative disc disease), lumbar 10/30/19 16 Gallstone 03/09/2013 Eczematous dermatitis 10/14/2012 Protein S deficiency 07/05/2009 Essential hypertension, benign 01/11/2006 Transient cerebral ischemia 11/16/2005 Overview (04/13/2024): Carotid US Mri normal 1997;p <50% 2011 Obesity (BMI 30.0-34.9) 11/16/2005 Diverticulitis of colon without hemorrhage 11/16 Hepatitis C, chronic 11/16/2005 Overview (04/13/2024): Genotype 1A. Hearing loss 11/16/2005 Encounters Date Type Department Care Team Description 07/18/2024 10:00 AM EST Treatment Outpatient [facility] [address] [phone] Lonnie Mackey, PT Gait instability (Primary Dx); Balance problem 07/14/2024 10:00 AM EST Treatment Outpatient [address] [phone] Damon Brantley, ASSEMBLY LEAD PERSON Gait instability (Primary Dx) 07/11/2024 10:30 AM EST Ancillary Procedure Pulmonolgy - [place] [address] [place] [id number] Judit Melgar Chronic obstructive pulmonary disease, unspecified COPD type ([facility]/HCC); ILD (interstitial lung disease) ([facility]/HCC) 07/03/2024 10:15 AM EST Treatment Outpatient [address] [phone] Damon Brantley, ASSEMBLY LEAD PERSON 06/30/2024 10:00 AM EST Treatment Outpatient [facility] - [address] [phone] Lonnie Mackey, PT Gait instability (Primary Dx); Balance problem 06/28/2024 3:00 PM EST Office Visit Adult Medicine [address] [phone] Angela Hernandez PA Thickened nail (Primary Dx); Referral of patient 06/27/2024 10:00 AM EST Treatment Outpatient [facility] - [address] [phone] Lonnie Mackey, PT Gait instability (Primary Dx); Balance problem 06/19/2024 10:15 AM EST Treatment Outpatient Rehabilitation [address] [phone] Damon Brantley, ASSEMBLY LEAD PERSON Gait instability (Primary Dx) from Last 3 Months Immunizations Name Administration Dates Next Due COVID-19 (Pfizer/Comirnaty) 12yo and older 04/14/2023 H1N1 Inj Preservative Free 09/23/2009 Hepatitis A Adult (Havrix; V aqta) 19yo and older 05/19/2017,10/08/2016 Hepatitis A-Hepatitis B Adul t (Twinrix) 18yo and older 05/19/2017,11/09/2016,10/08/2016 Hepatitis B (Afhrjhi-F-Cefsk , Recombivax HB-Adult) 19yo and older 05/19/2017,11/09/2016,10/08/2016 Influenza Quadravalent, 0.5m l (Fluzone High-dose) 65yo and older 04/13/2022,03/08/2021 Influenza trivalent, 0.5mL ( Fluzone High-dose) 65yo and older 04/12/2024,03/29/2023,04/13/2022,03/08,04/15/2020,03/31/2019,03/30/2018 ,04/08/2017,04/02/2016 Influenza trivalent, with pr eservative (Fluzone; Afluria) 6mo and older 03/19/2019,04/18/2018,03/26/2017,04/29,05/10/2014,03/29/2013,04/05/2012 ,05/04/2011,04/03/2010,04/17/2009,04/19,05/12/2007,05/20/2006, 5 Influenza, Unspecified 03/27/2023,2019,07/23/2016,04/03,04/29/2015,05/10/2014,03/29/2013 ,04/05/2012,05/04/2011,04/03/2010,02/2010,04/17/2009,05/14/2008, 7,05/20/2006,05/12/2005 Moderna SARS-CoV-2 COVID-19, mRNA, LNP-S, preservative free 10/15/2021,05/12/2021,09/25/2020,08/28 Pfizer (ages 12 & older) Biv alent, COVID-19 04/13/2022 Pfizer (ages 12 & older) ANTON S-CoV-2 COVID-19, mRNA, LNP-S, ellen-sucrose, preservative free 10/15/2021 Pneumococcal conjugate 13 va lent (Prevnar 13, PCV13) 2mo and older 07/19/2016,11/20/2015,11/19/2013,05/12 Pneumococcal conjugate 20 va lent (Prevnar 20, PCV 20) 2mo and older 04/14/2023 Pneumococcal polysaccharide 23 valent (Pneumovax 23) 2yo and older 09/18/2019,09/05/2013,05/15/2005 RSV, bivalent, protein subun it RSVpreF, 0.5mL, Preservative Free (ABRYSVO) 60yo and older or 32 through 36 wks of 04/14/2023 RSV, bivalent, protein subun it RSVpreF, 0.5mL, Preservative Free (Arexvy) 60yo and older 04/14/2023 Td Tetanus diptheria (Tdvax) 7yo and older 05/27/2010,09/20/2003,09/20/2003 Td, Unspecified 05/27/2010,09/20/2003 Tdap Tetanus diptheria acell ular pertussis (Boostrix; Adacel) 7yo and older 05/15/2023,10/18/2015,09/21/2012 Zoster Live 11/17/2015,07/09/2008 Zoster recombinant (Shingrix ) 19yo and older 06/07/2020,04/09/2020,12/22/2017,10/14 Surgical History Surgery Date Site/Laterality Comments KNEE ARTHROPLASTY PROCEDURE: NM ARTHRS KNEE ABRASION ARTHRP/SEMICONDUCTOR PROCESSING TECHNICIAN DRLG/MICROFX; COMMENT: x 2 left SHOULDER ARTHROSCOPY PROCEDURE: NM SURGICAL ARTHROSCOPY SHOULDER W/LSS&RESCJ ADS HERNIA REPAIR 2004 PROCEDURE: REPAIR UMBILICAL HERNIA OTHER SURGICAL HISTORY PROCEDURE: NM BIOPSY LIVER NEEDLE PERCUTANEOUS HIP ARTHROPLASTY 05/2007 PROCEDURE: HISTORICAL HIP REPLACEMENT OTHER SURGICAL HISTORY 11/13/2005 PROCEDURE: COLON CA SCRN NOT HI RSK IND HERNIA REPAIR PROCEDURE: LAPAROSCOPY, INGUINAL HERNIA REPAIR Medical History Medical History Date Comments Acute hepatitis C without me ntion of hepatic coma(070.51) 11/16/2005 DX:Acute hepatitis C without mention of hepatic coma(070.51); COMMENT: BLOOD TRANSFUSION late for hemolytic anemia Obesity, unspecified 11/16/2005 DX:Obesity, unspecified Diverticulosis of colon (wit hout mention of hemorrhage) 11/16/2005 DX:Diverticulosis of colon ( without mention of hemorrhage) Acquired hemolytic anemia, u nspecified (CMS/HCC) age 29 DX:Acquired hemolytic anemia , unspecified (HCC); COMMENT: Resolved - 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 Unspecified transient cerebr al ischemia 1997 DX:Unspecified transient cer ebral ischemia; COMMENT: Carotid US Mri normal 1997 Essential hypertension, benign 01/11/2006 D X:Essential hypertension, benign Chronic bronchitis (CMS/HCC) 09/23/2009 DX: Chronic bronchitis (HCC) Fibrosis of liver DX:Fibrosis of liver; COMMENT: Grade 3/4 bx 02/25 from Hep C Chest pain, atypical DX:Chest pa in, atypical; COMMENT: admit to [facility]; neg stress MIBI Lab test negative for COVID-19 virus 10/25/2020 DX:Lab test negative for COVID- 19 virus Actinic keratoses 08/20/2022 DX:Actinic ker atoses Acute cough 12/16/2022 DX:Acute cough Family History Medical History Relation Name Comments No Known Problems Aunt Cataracts Brother 1 Cataracts Brother 2 No Known Problems Daughter 1 Devora No Known Problems Daughter 2 Cataracts Father No Known Problems Maternal Grandfather No Known Problems Maternal Grandmother Cataracts Mother No Known Problems Other No Known Problems Paternal Grandfather No Known Problems Paternal Grandmother Cataracts Sister 1 Breast cancer Sister 2 Cataracts Sister 2 No Known Problems Son No Known Problems Uncle Blindness Neg Hx Glaucoma Neg Hx Macular degeneration Neg Hx Strabismus Neg Hx Relation Name Status Comments Aunt Brother 1 Brother 2 Alive 6 heathly x 1 d m and obesity and 4 TKR Daughter 1 Devora Alive Healthy Daughter 2 Alive Healthy Father DM, stomach can cer? Maternal Grandfather UK Maternal Grandmother Mother CVA, DM, Bladde r problem Other Paternal Grandfather , Leg gangrene Paternal Grandmother Sister 1 Sister 2 Alive 5 healthy x 2 D M and obesity , 2 TKR Son Alive Sleep apnea , k nee pain Uncle Social History Tobacco Use Types Packs/Day Years Used Date Smoking Tobacco: Former Cigarettes Q uit: 07/19/1989 Smokeless Tobacco: Former Tobacco Cessation:Counseling Given: Not Answered Alcohol Use Standard Drinks/Week Comments Yes 0 (1 standard drink = 0.6 oz pur e alcohol) Sex and Gender Information Value Date Recorded Sex Assigned at Not on file Legal Sex Male 6:44 AM EST Gender Identity Not on file Sexual Orientation Not on file Obstetrics History Last Filed Vital Signs Vital Sign Reading Time Taken Comments Blood Pressure 126/62 06/28/2024 2:44 PM EST Pulse 64 06/28/2024 2:44 PM EST Temperature 36.5 ??C (97.7 ??F) 06/28/2024 2:44 PM ES T Respiratory Rate 14 06/28/2024 2:44 PM EST Oxygen Saturation 96% 06/28/2024 2:44 PM EST Inhaled Oxygen Concentration - - Weight 98.9 kg (218 lb) 06/28/2024 2:44 PM EST Height 175.3 cm (5' 9 ) 06/28/2024 2:44 PM EST Body Mass Index 32.19 06/28/2024 2:44 PM EST Plan of Treatment Upcoming Encounters Date Type Department Care Team (Late st Contact Info) Description 10/06/2024 9:45 AM EDT Office Visit Adult Medicine [facility] [address] [place] [phone] Grabiel Kasper MD [address] [place] [address] 11/20/2024 9:30 AM EDT [facility] [address] [phone] Liza Luis MD [address] [address] Health Maintenance Due Date Last Done Comments Depression Screening 05/20/2020 Falls Risk Assessment 05/20/2020 Social Influencers of Health Screening 05/20/2020 Hypertension/CHF/CAD Annual BMP Blood Test 04/04/2025 04/04/2024, 04/04/2024, 04/04/2024 Cholesterol Screening (Lipid Panel) 04/04/2029 04/04/2024, 04/04/2024, 04/04/2024 DTaP,Tdap,and Td Vaccines (9 - Td or Tdap) 05/15/2033 05/15/2023, 10/18/2015, 09/21/2012, Additional history exists Hepatitis A Vaccines Completed 05/19/2017, 05/19/2017, 11/09/2016, Additional history exists Hepatitis B Vaccines Completed 05/19/2017, 05/19/2017, 11/09/2016, Additional history exists Zoster Vaccines Completed 06/07/2020, 03/20, 12/22/2017, Additional history exists Pneumococcal Vaccine: 50+ Years Completed 04/14/2023, 09/18/2019, 07/19/2016, Additional history exists RSV Immunization Patients 60+ Years Old Completed 04/14/2023, 04/14/2023 COVID-19 Vaccine Completed 04/12/2024, , 11/16/2022, Additional history exists Influenza Vaccine Completed 04/12/2024, , 03/27/2023, Additional history exists HIB Vaccines Aged Out No longer eligi ble based on patient's age to complete this topic HPV Vaccines Aged Out No longer eligi ble based on patient's age to complete this topic IPV Vaccines Aged Out No longer eligi ble based on patient's age to complete this topic MMR Vaccines Aged Out No longer eligi ble based on patient's age to complete this topic Meningococcal ACWY Vaccine Aged Out N o longer eligible based on patient's age to complete this topic Meningococcal B Vacine Aged Out No lo nger eligible based on patient's age to complete this topic RSV Immunization Patients Under 20 months Aged Out No longer eligible based on patient's age to complete this topic Varicella Vaccines Aged Out No longer eligible based on patient's age to complete this topic Procedures Procedure Name Priority Date/Time Associated Diagnosis Comments XR CHEST 2 VIEWS Routine 08/02/2024 8:44 AM EST PULMONARY FUNCTION TESTING Routine 07/11/2024 10:59 AM EST Chronic obstructive pulmonary disease, unspecified COPD type ([facility]) ILD (interstitial lung disease) ([facility]) HM ANNUAL BMP BLOOD TEST Routine 04/04/2024 LIPID PANEL Routine 04/04/2024 from Last 3 Months or Most Recently Relevant to Health Maintenance Results * XR Chest 2 Views (08/02/2024 8:44 AM EST) Anatomical Region Laterality Modality Body Radiographic Amarilys ging Result [facility] Historical Provider IMG XR PROCEDURES Final R esult * Pulmonary function testing: Carbon Monoxide Diffusing Capacity, Nitrogen Wash Out, Spirometry with Bronchodilator, Flow Volume Loop, Vital Capacity Test, Pulmonary Stress Test, 6 min walk (0:59 AM EST) Impressions Radha Coronel MD - 07/11/2024 10:59 AM EST DATE OF SERVICE: 07/11/24 SPIROMETRY: FEV1 is 81 % predicted and an FVC ??is 73 % predicted. The FEV1/FVC ratio is 108% of normal, significant response to bronchodilators noted. LUNG VOLUMES: Total lung capacity (TLC): 89% predicted. Residual volume (RV): 106% predicted RV/TLC ratio is 104% of normal DIFFUSION CAPACITY: DLCO 60% predicted. DlCO/VA 67% of predicted COMPARISONS: INTERPRETATION: This pulmonary function test shows reactive airway disease with diffusion impairment. ??This could be explained by COPD please correlate clinically ??Radha Coronel MD ?? Patient walked six minutes cane assist covering (160m/525ft) without Leg Fatigue, Mild to Moderate SOB was noted. Lowest oxygen saturation was 93%. Patient returned to PFT lab for Rest & Recovery. ??After 1 minute RA SpO2 = 95% HR = 87; After 2 min RA SpO2 = 95% HR = 66. No indication for supplemental Oxygen for today's Activity. Result [facility] Liza Luis MD PFT ORDERABLES Edited Result - Final * Annual BMP Blood Test (04/04/2024) Annual BMP Blood Test Abstracted Result [facility] Historical Provider HEALTH MAINTENANCE Final Result * Lipid panel (04/04/2024) LDL/HDL Ratio 2 0 - 4 Triglycerides 81 0 - 150 mg/dL Cholesterol 113 0 - 200 mg/dL HDL 49 >=40 mg/dL LDL Cholesterol 48 0 - 100 mg/dL Blood Venous blood specimen / Unknown Historical Provider LAB BLOOD ORDERABLES Christa l Result from Last 3 Months or Most Recently Relevant to Health Maintenance Insurance [employer] Care Teams Stripper Opaquer Relationship Specialty Start Date End Date Grabiel Kasper MD [address] [place], [place] PCP - General Internal Medicine 02/02/22
--- OUTSIDE RECORDS SUMMARY | 2024-09-15 16:15 | XMS_ITS | Encounter Summary ---
Author Organization [facility] Address [address] [place] [address] Care Team Providers Care Director Drug Safety Name Role Phone Grabiel Kasper MD Primary Care Pr ovider Encounter Details Date Type Department Care Team (Late st Contact Info) Description 05/05/2024 9:00 AM EDT Hospital Encounter TH HISTORIC ENCOUNTERS EASTERN CONVERSION ONLY Grabiel Kasper MD [address] [place] [address] [phone] Social History Tobacco Use Types Packs/Day Years Used Date Smoking Tobacco: Former Cigarettes Q uit: 07/19/1989 Smokeless Tobacco: Former Alcohol Use Standard Drinks/Week Comments Yes 0 [...] 9:45 AM EDT Office Visit Adult Medicine [address] [phone] Grabiel Kasper MD [address] [place] [phone] 11/20/2024 9:30 AM EDT Office Visit Pulmonolgy - [place] [address] [facility] [address] [place] [phone] Liza Luis MD 175 [facility] [address] [place] [address] documented as of this encounter Visit Diagnoses Not on filedocumented in this encounter Care Teams Director Drug Safety Relationship Specialty Start Date End Date Grabiel Kasper MD [address] [place], [place] PCP - General Internal Medicine 02/02/22 documented as of this encounter
--- OUTSIDE RECORDS SUMMARY | 2024-09-15 16:15 | XMS_ITS | Encounter Summary ---
Author Name [place] Address [address] [place] [id number] Care Team Providers Care Merchandise Director Name Role Phone POLLY CLIFFORD Primary Care [...] Cherry's Name Patient's Relationship to Policy Cherry [facility] (WNR) MEDICARE ADVANTAGE [facility] ([facility]) Jul 19, 2023 [id number] Rayne JAOCBOMAGGIE PATIENT CAREMARK PRESCRIPT ION [id number] 1 Jul 19, 2017 [id number] Rayne JACOBO PATIENT MEDICARE ([facility]) MEDICARE () PART B Sep 16, 2005 PART B [id number] SUKI JACOBO SR PATIENT MEDICARE ([facility]) MEDICARE () PART A Sep 16, 2005 PART A [id number] Rayne JACOBO PATIENT MEDICARE (WNR) MEDICARE (M) PART A Sep 16, 2005 PART A SUKI JACOBO SR PATIENT MEDICARE (WNR) MEDICARE (M) PART B Sep 16, 2005 PART B [id number] SUKI JACOBO SR PATIENT MEDICARE (WNR) MEDICARE (M) PART A Sep 16, 2005 PART A [id number] SUKI JACOBO SR PATIENT OPTUM RX PRESCRIPT ION RX Jul 19, 2022 THPRX [id number] Rayne JACOBO PATIENT OPTUM RX PRESCRIPT ION RX Jul 19, 2022 THPRX [id number] Rayne JACOBO PATIENT OPTUM RX PRESCRIPT ION RX Jul 19, 2022 THPRX [id number] [phone] Rayne JACOBO PATIENT [facility] Jul 19, 2017 [id number] [phone] Rayne JACOBO PATIENT [facility] Jul 19, 2017 [facility] [id number] [phone] Rayne JACOBO PATIENT [facility] TON ORELLANA E Jul 19, 2017 [id number] [phone] Rayne JACOBO PATIENT [facility] CE ORGANIZ US FAMIL Y Jul 21, 2013 (WNR) [id number] Rayne JACOBO PATIENT [facility] ([facility]) [facility] TRICA RE(WN R) Jul 19, 2017 (WNR) [id number] Rayne JACOBO PATIENT Selected Encounter This section includes the information on record at [place] for the Encounter. Date/Time Encounter Type Encounter Description Reason Provider Source Sep 08, 2024 09:00 AM OFFICE O/P EST MOD 30 MIN PRIMARY CARE/MEDICINE ICD-10-CM M23.92 Unspecified internal derangement of left knee ZHANNA WAGNER IHE Encounter Template Text not used by [place] Assessments - Encounter Diagnoses This section includes the primary and secondary diagnoses documented for the Encounter. Date/Time Primary/Secondary Diagnosis Diagnosis Name Provider Source Sep 08, 2024 10:17 AM PRIMARY Unspecified internal derangement of left knee ZHANNA WAGNER [facility] Plan of Treatment: Future Appointments (+ 6 months) and Future Tests (+/- 45 days) The Plan of Treatment section includes future care activities for the patient from all [place] [facility]. This section includes future appointments and future orders which are active, pending or scheduled. Future Appointments This section includes appointments that were scheduled to occur 6 months from the date of the Encounter, up to a maximum of 20 appointments. The data comes from all [facility] facilities. Appointment Date/Time Appointment Type Appointme nt Facility Name Oct 12, 2024 08:00 AM AMBULATORY - REHAB MEDICIN E [facility] Active, Pending, and Scheduled Orders This section includes a listing of several types of active, pending, and scheduled orders, including clinic medications orders, diagnostic test orders, procedure orders and consult orders; where the start date of the order is 45 days before the date of the Encounter or 45 days after the date of theEncounter. The data comes from all [facility] facilities. Test Date/Time Test Type Test Details Facility Name Sep 12, 2024 09:31 AM Consult Order PHYSICAL T HERAPY/NHM OUTPT Cons Shook Machine Operator's Choice [facility] Vital Signs: All taken on the encounter date This section contains inpatient and outpatient Vital Signs collected on the date of the Encounter. Date/Time Temperature Pulse Blood Pressure Respiratory Rate SP02 Pain Height Weight Body Mass Index Source Sep 08, 2024 09:12 AM 98.1 61 129/55 18 96 [facility] Social History: Smoking Status (Most current) and Tobacco Use (All prior to encounter date) This section includes the most current, and the historical, smoking and tobacco- related health factors from the [place] facility where the Encounter took place. Current Smoking Status This section includes the most current smoking, or tobacco-related health factor, from the [place] facility where the Encounter took place. Date/Time Current Smoking Status Comment Ramon ity Oct 29, 2023 06:12 PM VA-TOBACCO FORMER USER [facility] Tobacco Use History This section includes a history of the smoking, or tobacco-related health factors, that were collected on or before the date of the Encounter. The data comes from the [place] facility where the Encounter took place. Date/Time Smoking Status/Tobacco Use Comment F acility Oct 29, 2023 06:12 PM VA-TOBACCO QUIT 15 YRS OR MORE [facility]SN [facility] Aug 23, 2019 09:07 AM [facility] Aug 23, 2019 09:07 AM [place]-TO[place]ACCO QUIT 15 YRS OR MORE [facility] Jun 28, 2018 10:50 AM [facility] Jun 28, 2018 10:50 AM VA-TOBACCO QUIT 15 YRS OR MORE [facility] Oct 14, 2017 09:20 AM QUIT TOBACCO USE > 7 [facility] Oct 05, 2016 01:02 PM QUIT TOBACCO USE > 7 [facility] Advance Directives: All historical and current Section Date Range: From patient's date of to the date document was created. This section includes ALL of a patient's completed or amended [place] Advance and Rescinded Directives. The entries below indicate that a directive exists for the patient, but an actual copy is not included with this document. The data comes from all [place] facilities. Date Advance Directives Provider Source Nov 16, 2023 ADVANCE DIRECTIVE [facility]ARC [facility]GER [facility] Encounter Notes: All associated encounter notes This section contains the clinical notes associated to the Encounter. Date/Time Encounter Note(s) Provider Source Sep 12, 2024 08:35 AM ADDENDUM: LOCAL TITLE: Addendum STANDARD TITLE: ADDENDUM DATE OF NOTE: SEP 12, 2024@08:35:15 ENTRY DATE: SEP 12, 2024@08:35:16 AUTHOR: LEONARDO BOWLES COSIGNER: URGENCY: STATUS: COMPLETED Followed up with [place] and daughter Linden via tele. They state there has been improvement with the brace and tylenol but still recovering, not back to baseline. They haven't been able to take tylenol three times per day because the vet goes to bed at 5:30 pm. They are requesting PT Consult in [place]. Daughter Linden can drive to the sessions. Forward to PCP, please enter [facility] PT consult as requested. Thank you! /es/ LEONARDO BOWLES Registered Nurse Signed: 09/12/2024 08:40 Receipt Acknowledged By: 09/12/2024 09:30 /es/ POLLY CLIFFORD D.O. PHYSICIAN === --- Original Document --- 09/08/24 FEMI NOTE: SICK CALL VISIT HPI: 83-year-old male with below noted past medical history presents with daughter regarding left knee pain. [place] is requesting a knee support. There is [...] 0.4MG BY MOUTH ONCE DAILY ACTIVE Non-VA [id number]/VILANTER SO62IRA 30D INH 1 ACTIVE INHALATION BY MOUTH [...] range of motion of the joints with able to extend and hold as well as flex. There is no erythema. No excess warmth. Mild soft tissue swelling. No fluid wave. Negative ballottement. Mild crepitus palpable. Negative laxity with anterior posterior draw or valgus/varus stress. MDM: No clinical evidence of acute neurovascular, neurosensory or gross functional deficit at this time. [place] was placed in a hinged knee support [...] treatment planning, education and counseling of the patient/family/medicare biller, placing orders, communicating with other health care providers and documentation in the electronic health record. able to verbalize understanding of plan of care and agrees. >> MEDICATIONS Reviewed and reconciled with Foreign /alba/ ZHANNA SARGENT MS,PA-C PHYSICIAN WORK ENVIRONMENT SAFETY INSPECTOR Signed: 09/08/2024 10:17 Receipt Acknowledged By: 09/08/2024 10:54 /es/ POLLY CLIFFORD D.O. PHYSICIAN 09/12/2024 08:51 /alba/ LEONARDO BOWLES Registered Nurse LEONARDO BOWLES [place] [facility] [place] [facility] Sep 08, 2024 09:50 AM PHYSICIAN WORK ENVIRONMENT SAFETY INSPECTOR NOTE: LOCAL TITLE: PA NOTE STANDARD TITLE: PHYSICIAN WORK ENVIRONMENT SAFETY INSPECTOR NOTE DATE OF NOTE: SEP 08, 2024@09:50 ENTRY DATE: SEP 08, 2024@09:50:54 AUTHOR: ZHANNA WAGNER EXP COSIGNER: URGENCY: STATUS: COMPLETED PA NOTE Has ADDENDA SICK CALL VISIT HPI: 83-year-old male with below noted past medical history presents with daughter regarding left knee pain. [place] is requesting a knee support. There is [...] 0.4MG BY MOUTH ONCE DAILY ACTIVE Non-VA [id number]/VILANTER [id number] 30D INH 1 ACTIVE INHALATION BY MOUTH [...] range of motion of the joints with [place] able to extend and hold as well as flex. There is no erythema. No excess warmth. Mild soft tissue swelling. No fluid wave. Negative ballottement. Mild crepitus palpable. Negative laxity with anterior posterior draw or valgus/varus stress. MDM: No clinical evidence of acute neurovascular, neurosensory or gross functional deficit at this time. [place] was placed in a hinged knee support [...] treatment planning, education and counseling of the patient/family/medicare biller, placing orders, communicating with other health care providers and documentation in the electronic health record. able to verbalize understanding of plan of care and agrees. >> MEDICATIONS Reviewed and reconciled with [place] /es/ ZHANNA SARGENT MS,PA-C PHYSICIAN WORK ENVIRONMENT SAFETY INSPECTOR Signed: 09/08/2024 10:17 Receipt Acknowledged By: 09/08/2024 10:54 /es/ POLLY CLIFFORD D.O. PHYSICIAN 09/12/2024 08:51 /es/ LEONARDO BOWLES Registered Nurse 09/12/2024 ADDENDUM STATUS: COMPLETED Followed up with [place] and daughter Linden via tele. They state there has been improvement with the brace and tylenol but still recovering, not back to baseline. They haven't been able to take tylenol three times per day because the vet goes to bed at 5:30 pm. They are requesting PT Consult in [place]. Daughter Linden can drive to the sessions. Forward to PCP, please enter [facility] PT consult as requested. Thank you! /alba/ LEONARDO BOWLES Registered Nurse Signed: 09/12/2024 08:40 Receipt Acknowledged By: * AWAITING SIGNATURE * PLOLY CLIFFORD KEVYN JONAH [place] [facility]
--- OUTSIDE RECORDS SUMMARY | 2024-09-15 16:15 | XMS_ITS ---
Author Name [place] Address [address] [place] [address] Care Team Providers Care Scrap Crusher Name Role Phone DARRIN POLLY Primary Care Provider Unavailkhushbu garcia Insurance Providers: All historical and current Section Date Range: From patient's date of to the date document was created. This section includes the names of all active insurance providers for the patient. Insurance Provider Type of Coverage Plan Name Start of Policy Coverage End of Policy Coverage Group Number Member ID Insurance Provider's Telephone Number Policy Cherry's Name Patient's Relationship to Policy Cherry [facility] (WNR) MEDICARE ADVANTAGE [facility] ([facility]) Jul 19, 2023 [id number] Rayne JACOBO PATIENT CAREMARK PRESCRIPT ION [id number] 1 Jul 19, 2017 [id number] [phone] Rayne JACOBO PATIENT MEDICARE ([place]) MEDICARE () PART A Sep 16, 2005 PART A [id number] [phone] Rayne JACOBO PATIENT MEDICARE (WN) MEDICARE () PART B Sep 16, 2005 PART B [id number] [phone] AVELINARSUKI SCHUMACHER SR PATIENT MEDICARE (WNR) MEDICARE (M) PART A Sep 16, 2005 PART A AVELINARSUKI SCHUMACHER SR PATIENT MEDICARE (WNR) MEDICARE (M) PART B Sep 16, 2005 PART B [id number] [phone] SUKI JACOBO SR PATIENT MEDICARE (WNR) MEDICARE (M) PART A Sep 16, 2005 PART A [id number] AVELINARSUKI SCHUMACHER SR PATIENT OPTUM RX PRESCRIPT ION RX Jul 19, 2022 THPRX [id number] Rayne JACOBO PATIENT OPTUM RX PRESCRIPT ION RX Jul 19, 2022 THPRX [id number] Rayne JACOBO PATIENT OPTUM RX PRESCRIPT ION RX Jul 19, 2022 THPRX [id number] Rayne JACOBO PATIENT [facility] TON MAR Jul 19, 2017 [id number] Rayne JACOBO PATIENT [facility] Jul 19, 2017 [facility] [id number] Rayne JACOBO PATIENT [facility] TON ORELLANA E Jul 19, 2017 [id number] Rayne JACOBO PATIENT [facility] CE ORGANIZ US FAMIL Y Jul 21, 2013 (WNR) [id number] Rayne JACOBO PATIENT [facility] TRICA RE(WN R) Jul 19, 2017 (WNR) [id number] Rayne JACOBO PATIENT Selected Encounter This section includes the information on record at [place] for the Encounter. Date/Time Encounter Type Encounter Description Reason Provider Source Sep 08, 2024 08:30 AM OFF/OP EST MAY X REQ PHY/QHP PRIMARY CARE/MEDICINE ICD-10-CM M25.562 Pain in left knee LEONARDO BOWLES IHE Encounter Template Text not used by [place] Assessments - Encounter Diagnoses This section includes the primary and secondary diagnoses documented for the Encounter. Date/Time Primary/Secondary Diagnosis Diagnosis Name Provider Source Sep 08, 2024 09:38 AM PRIMARY Pain in left knee SUKI BOWLES [facility] Plan of Treatment: Future Appointments (+ 6 months) and Future Tests (+/- 45 days) The Plan of Treatment section includes future care activities for the patient from all [place] [facility]. This section includes future appointments and future orders which are active, pending or scheduled. Future Appointments This section includes appointments that were scheduled to occur 6 months from the date of the Encounter, up to a maximum of 20 appointments. The data comes from [facility]. Appointment Date/Time Appointment Type Appointme nt Facility Name Oct 12, 2024 08:00 AM AMBULATORY - REHAB MEDICIN E [facility] Active, Pending, and Scheduled Orders This section includes a listing of several types of active, pending, and scheduled orders, including clinic medications orders, diagnostic test orders, procedure orders and consult orders; where the start date of the order is 45 days before the date of the Encounter or 45 days after the date of theEncounter. The data comes from all [facility] facilities. Test Date/Time Test Type Test Details Facility Name Sep 12, 2024 09:31 AM Consult Order PHYSICAL T HERAPY/NHM OUTPT Cons Serging Machine Operator Automatic's Choice [facility] Vital Signs: All taken on the encounter date This section contains inpatient and outpatient Vital Signs collected on the date of the Encounter. Date/Time Temperature Pulse Blood Pressure Respiratory Rate SP02 Pain Height Weight Body Mass Index Source Sep 08, 2024 09:12 AM 98.1 61 129/55 18 96 [facility] Social History: Smoking Status (Most current) and Tobacco Use (All prior to encounter date) This section includes the most current, and the historical, smoking and tobacco- related health factors from the [place] facility where the Encounter took place. Current Smoking Status This section includes the most current smoking, or tobacco-related health factor, from the [place] facility where the Encounter took place. Date/Time Current Smoking Status Comment Ramon yost Oct 29, 2023 06:12 PM VA-TOBACCO FORMER USER [facility] Tobacco Use History This section includes a history of the smoking, or tobacco-related health factors, that were collected on or before the date of the Encounter. The data comes from the [place] facility where the Encounter took place. Date/Time Smoking Status/Tobacco Use Comment Prashanth price Oct 29, 2023 06:12 PM VA-TOBACCO QUIT 15 YRS OR MORE [facility] Aug 23, 2019 09:07 AM VA-TOBACCO [facility] Aug 23, 2019 09:07 AM [place]-TO[place]ACCO QUIT 15 YRS OR MORE [facility] Jun 28, 2018 10:50 AM [facility] Jun 28, 2018 10:50 AM VA-TOBACCO QUIT 15 YRS OR MORE [facility] Oct 14, 2017 09:20 AM QUIT TOBACCO USE > 7 YEARS AGO [facility] Oct 05, 2016 01:02 PM QUIT TOBACCO USE > 7 YEARS AGO [facility] Advance Directives: All historical and current Section Date Range: From patient's date of to the date document was created. This section includes ALL of a patient's completed or amended [place] Advance and Rescinded Directives. The entries below indicate that a directive exists for the patient, but an actual copy is not included with this document. The data comes from all [place] facilities. Date Advance Directives Provider Source Nov 16, 2023 ADVANCE DIRECTIVE MARC METZGER [facility] Encounter Notes: All associated encounter notes This section contains the clinical notes associated to the Encounter. Date/Time Encounter Note(s) Provider Source Sep 08, 2024 09:21 AM PRIMARY CARE NURSI NG OUTPATIENT NOTE: LOCAL TITLE: NURSING/PRIMARY CARE/AMB-OPT.CARE NOTE STANDARD TITLE: PRIMARY CARE NURSING OUTPATIENT NOTE DATE OF NOTE: SEP 08, 2024@09:21 ENTRY DATE: SEP 08, 2024@09:21:58 AUTHOR: LEONARDO BOWLES EXP COSIGNER: URGENCY: STATUS: COMPLETED Temperature: 98.1 F [36.7 C] (09/08/2024 09:12) Pulse: 61 (09/08/2024 09:12) Respiration: 18 (09/08/2024 09:12) Blood Pressure: 129/55 (09/08/2024 09:12) Height: 69 in [175.3 cm] (11/16/2023 11:00) Weight: 220 lb [99.79 kg] (08/29/2024 10:47) Pain: 0 (08/29/2024 10:47) Allergies: VICODIN, CODEINE, PIROXICAM, HYDROCODONE F: Left knee pain and swelling D/A: Fireworks Maker triaged over the phone yesterday and advised F2F evaluation. [place] states over the past 2 weeks his left knee has been a problem. There's something moving in there...It want's to release...It's making me stumble and trying to buckle. referenced he had surgery on this knee long time ago, in high school they repaired the cartilage . [place] states the knee is swollen and has been using ice, he questions if there is fluid in his knee. [place] endorses a pain level of 4 at rest, 7 w/movement. denies any recent traumatic trigger to this. Mago presents today to sick call with his daughter Devora. 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 He is not aware of any recent trauma or falls to his left knee and he lives alone. states he took 1,000mg of Tylenol last night and it helped with the pain. [place] and daughter are here hoping looking for advisement on pain management, improving the swelling, increasing mobility and seeing if he would be a good candidate for PT. Daughter states mago's activity has decreased since last May after he completed a course of PT. Left knee is tender to touch and more swollen than right. [place] observed w/antalgic gait ambulating with cane, but stable and maintaining control of his balance. R: [place] signed off to sick call provider. /alba/ LEONARDO BOWLES Registered Nurse Signed: 09/08/2024 09:38 LEONARDO BOWLES [facility]
[2024-09-15 16:25] VITALS: BP 158/71; PULSE 63; RESP 18; O2SAT 95
[2024-09-15 17:17] VITALS: BP 158/71; PULSE 63; RESP 18; TEMP -17.7; TEMP 0; O2SAT 95
== END 2024-09-15 17:18 | disposition home or self-care (01) ==
PROVIDERS: Registered Nurse Emergency; Emergency Provider Emergency Medicine; PCP Family Medicine
DX: K59.00 Constipation, unspecified (principal); I25.10 Atherosclerotic heart disease of native coronary artery without angina pectoris; R10.2 Pelvic and perineal pain; I10 Essential (primary) hypertension; R35.0 Frequency of micturition; Z79.899 Other long term (current) drug therapy
CPT/HCPCS: 36415; 74018; 80048; 80076; 81003; 83690; 85025; 99284

== ENCOUNTER → 2024-09-15 08:08 | Outpatient (BNV) | payer OTHER, SELFPAY | PROVIDERS: PCP Family Medicine; Visit Provider Radiology Diagnostic Radiology | DX: K56.41 Fecal impaction (principal); R14.0 Abdominal distension (gaseous) | CPT/HCPCS: 74018 ==

== ENCOUNTER 2024-10-22 15:45 | Emergency (ER) | payer OTHER, SELFPAY ==
--- NOTE | 2024-10-22 | ECG_ITS ---
Test Reason : cp Blood Pressure : */* mmHG Vent. Rate : 68 BPM Atrial Rate : 68 BPM P-R Int : 214 ms QRS Dur : 84 ms QT Int : 418 ms P-R-T Axes : 68 -4 26 degrees QTcB Int : 444 ms Sinus rhythm with 1st degree A-V block with Premature atrial complexes Otherwise normal ECG When compared with ECG of 02-Aug-2024 09:50, Premature atrial complexes are now Present Referred By: Generic ED Physician Electronically Signed By: Remington Johnson
--- NOTE | ~2024-10-22 | XR_ITS ---
CLINICAL HISTORY: chest pain 2 view chest x-ray Comparison: CR/SR - XR CHEST 2V - 08/02/24 10:52 EST CR/WV/SR - XR CHEST 2V - 09/23/23 18:42 EST Findings: No consolidation or effusion. Normal size heart. No acute fracture. IMPRESSION: 1. No acute findings. This document has been electronically signed by: Ramin Chase MD on 10/22/2024 16:47:53
[2024-10-22 15:57] VITALS: BP 137/58; PULSE 69; RESP 16; TEMP 36.7; O2SAT 94; BMI 31.4
--- NOTE | 2024-10-22 15:58 | ED.GENADULT ---
HPI - General Adult General Chief complaint: Chest Pain Stated complaint: chest pain upper left side Time Seen by Provider: 10/22/24 16:48 Source: patient Limitations: no limitations History of Present Illness ED Provider: Sarah Delgado PA-C HPI narrative: 84-year-old male with a history of hypertension, hyperlipidemia, coronary artery disease, paroxysmal AFib on rivaroxaban, COPD, seizure disorder on Keppra, who presents with a intermittent chest pain x3 weeks. Patient states he randomly we will develop left-sided chest discomfort, independent of activity. When patient has an episode at last for sec at a time. Denies associated shortness of breath, diaphoresis, nausea vomiting. Denies concurrent cough and cold symptoms or fever. Denies new activity or heavy lifting, exercise, the could have precipitated the discomfort. Denies unintentional weight gain or new pedal edema. Related Data Home Medications ?Medication ?Instructions ?Recorded ?Confirmed diclofenac sodium 1 % topical gel 1 ea topical QID 06/11/20 04/21/24 albuterol sulfate 90 mcg/actuation 2 puff inhalation Q4H PRN wheezing 12/12/20 04/21/24 aerosol inhaler ascorbic acid (vitamin C) 500 mg mg PO 05/22/21 04/21/24 capsule nitric oxide gas 100 PPM for ea inhalation 05/22/21 04/21/24 inhalation atorvastatin 20 mg tablet 20 mg PO DAILY 11/25/21 04/21/24 tamsulosin 0.4 mg capsule 0.4 mg PO BID 11/25/21 04/21/24 carboxymethylcellulose sodium 0.5 drp ophthalmic (eye) 03/12/22 04/21/24 % eye drops olopatadine 0.1 % eye drops 1 drp ophthalmic (eye) ONCE 03/12/22 04/21/24 citalopram 40 mg tablet 40 mg PO DAILY 04/19/23 04/21/24 levetiracetam 1,000 mg tablet 750 mg PO BID 04/19/23 04/21/24 furosemide 20 mg tablet 20 mg PO DAILY 12/02/23 04/21/24 ketotifen fumarate 0.025 % (0.035 drp ophthalmic (eye) 12/02/23 04/21/24 %) eye drops (Eye Itch Relief) nitroglycerin 0.3 mg sublingual mg sublingual 12/02/23 04/21/24 tablet Previous Rx's ?Medication ?Instructions ?Recorded lidocaine 5 % topical cream 1 appl topical BID PRN pain #15 05/12/22 grams diltiazem HCl 180 mg 180 mg PO DAILY #90 caps 05/09/24 capsule,extended release 24 hr rivaroxaban 20 mg tablet (Xarelto) 20 mg PO QPM #90 tabs 06/02/24 polyethylene glycol 3350 17 17 g PO DAILY #119 grams 07/07/24 gram/dose oral powder (Miralax) Allergies Allergy/AdvReac Type Severity Reaction Status Date / Time penicillin V Allergy Severe Hives Verified 10/22/24 15:58 piroxicam [PIROXICAM] Allergy Intermediate HIVES/SOB Verified 10/22/24 15:58 rofecoxib [From VIOXX] Allergy Intermediate HIVES/SOB Verified 10/22/24 15:58 Penicillins [PENICILLINS] Allergy Unknown UNKNOWN Verified 10/22/24 15:58 phenacetin [PHENACETIN] Allergy Unknown UNK Verified 10/22/24 15:58 From VICODIN Allergy Intermediate HIVES/SOB Uncoded 08/02/24 10:07 Review of Systems Review of Systems: Yes all other systems are reviewed and are negative Constitutional: Constitutional: Denies fatigue and Denies fever(s) Cardiovascular: Cardiovascular: Reports chest pain, Denies dyspnea and Reports dyspnea on exertion Respiratory: Respiratory: Denies cough, Denies dyspnea, Reports dyspnea on exertion and Denies wheezing Gastrointestinal: Gastrointestinal: Denies abdominal pain, Denies diarrhea, Denies nausea and Denies vomiting Endocrine: Endocrine: Denies fatigue Allergic/Immunologic: Allergic/Immunologic: Denies wheezing PMFSH Past Medical History Attestation statement: The following information was validated with the patient. Medical History Chronic anticoagulation CAD (coronary artery disease) Seizure disorder Paroxysmal atrial fibrillation HTN (hypertension) Surgical History History of left knee surgery History of right hip replacement History of ear surgery S/P skin biopsy Social History Social History Alcohol intake: current Alcohol intake frequency: holidays/special occasions only Alcohol type: beer Patient Tobacco Use Status: Former Tobacco user Years Smoked: 30 +/- Smoked in Last 30 Days: No Use of substances other than those prescribed or required for medical reasons: No Advance Directives: No Advance Directives Information Provided: Yes Do you have a plan to hurt others: No Plan Physical Exam ED Vital Signs: Vital Signs - 24 hr 10/22/24 15:57 Temperature 98.0 F Pulse Rate 69 Respiratory Rate 16 Blood Pressure 137/58 L Pulse Oximetry 94 Oxygen Delivery Method Room Air BMI result Body Mass Index 31.4 Const Other: Alert well-appearing Orientation/consciousness: patient oriented x3 Resp Other: Nonlabored respirations, lungs clear to auscultation no wheezing appropriate air movement Cardio Other: Normal peripheral perfusion, trace pedal edema Skin Other: Warm dry no rash Neuro General: patient oriented x3, gait normal, no focal motor deficits and CN's II-XI intact bilaterally Psych Other: Cooperative Course Course Course Narrative: RME performed by Caroline Gaona PA-C. Patient is a 84 year old assigned male at presenting to the emergency department with chest pain. Detailed physical exam and review of systems are deferred to the primary grade teacher. EKG, labs, imaging, and swabs ordered. Patient placed back in the waiting room pending room availability and results. Medical Decision Making Medical Decision Making MDM Narrative: 84-year-old male with a history of hypertension, hyperlipidemia, coronary artery disease, paroxysmal AFib on rivaroxaban, COPD, seizure disorder on Keppra, who presents with a intermittent chest pain x3 weeks. Patient states he randomly we will develop left-sided chest discomfort, independent of activity. When patient has an episode at last for sec at a time. Denies associated shortness of breath, diaphoresis, nausea vomiting. Denies concurrent cough and cold symptoms or fever. Denies new activity or heavy lifting, exercise, the could have precipitated the discomfort. Denies unintentional weight gain or new pedal edema. Problem: Age, known coronary artery disease, AFib History: Per patient I have considered the following differential diagnoses: ACS, new heart failure, costochondritis, viral syndrome, pneumonia, COPD exacerbation, musculoskeletal strain Plan: ACS was considered, the patient has known coronary artery disease. Screening labs including a troponin EKG and chest x-ray were obtained. The patient was not had fevers, or cough or cold symptoms to suggest viral syndrome or pneumonia. He also has not been using his home inhalers more frequently to suggest a COPD exacerbation. He has no mechanism of injury to suggest musculoskeletal strain. The patient does have dyspnea with exertion at times, this could be new heart failure. However, today he is not overtly hypertensive he is not volume overloaded on exam, his enzymes are not elevated, his chest x-ray is clear. This is not acute heart failure exacerbation. He likely will require a stress test and an echo as an outpatient. I have independently reviewed the following tests: Labs: No leukocytosis, not anemic, no electrolyte abnormality, 1st troponin 3.2, viral panel negative, delta troponin 3.4 EKG: Sinus rhythm with first-degree AV block some PVCs, rate 61, no ischemic changes no ectopy Chest x-ray:Findings: No consolidation or effusion. Normal size heart. No acute fracture. IMPRESSION: 1. No acute findings. Lab Data 10/22/24 16:12 10/22/24 16:12 Labs: Lab Results 10/22/24 10/22/24 Range/Units 16:12 17:23 WBC 5.5 (4.8-10.8) X10*3/uL RBC 4.12 L (4.60-5.80) X10*6/uL Hgb 13.3 L (14.0-18.0) g/dl Hct 38.0 L (42.0-52.0) % MCV 92.2 (80.0-98.0) fL MCH 32.3 (27.0-33.0) pg MCHC 35.0 (31.0-36.0) g/dl RDW 14.0 (11.0-16.0) % Plt Count 226 D (160-400) X10*3/uL MPV 9.3 L (9.4-12.4) fL Immature Gran % (Auto) 0.4 (0.0-0.4) % Neut % (Auto) 79.0 H (45-73) % Lymph % (Auto) 9.8 L (20-40) % [place] % (Auto) 6.3 (2-11) % Eos % (Auto) 4.0 (0-4) % Baso % (Auto) 0.5 (0-2) % Lymph # (Auto) 0.5 L (1.2-4.9) X10*3/uL [place] # (Auto) 0.4 (0.1-1.2) X10*3/uL Eos # (Auto) 0.2 (0.0-0.4) X10*3/uL Baso # (Auto) 0.0 (0.0-0.2) X10*3/uL Abs Immat Gran (auto) 0.02 (0.00-0.03) X10*3/uL Absolute Neuts (auto) 4.4 (2.0-8.3) x10*3/uL Absolute Nucleated RBC 0.000 (0.0-0.012) X10*3/uL Nucleated RBC % (auto) 0.0 (0.0-0.2) /100WBC PT 16.1 H (10.9-12.4) SEC INR 1.4 H (0.9-1.1) Sodium 140 (135-145) mmol/L Potassium 4.0 (3.3-5.1) mmol/L Chloride 107 (96-108) mmol/L Carbon Dioxide 24 (22-29) mmol/L Anion Gap 13 (12-20) BUN 14 (9-16) mg/dL Creatinine 0.77 (0.5-1.4) mg/dL Estim Creat Clear Calc 81.7 Estimated GFR > 60 Random Glucose 139 H (60-115) mg/dL Calcium 9.0 (8.4-10.2) mg/dL Magnesium 2.1 (1.6-2.6) mg/dL Total Bilirubin 0.3 (0.0-1.0) mg/dL AST 29 (5-37) U/L ALT 18 (0-40) U/L Alkaline Phosphatase 55 (39-117) U/L Troponin I High Sens 3.2 3.4 (<3.5-35.0) ng/L Total Protein 6.8 (6.5-8.0) g/dL Albumin 4.0 (3.5-5.0) g/dL Influenza Type A (PCR) NEGATIVE (Negative) Influenza Type B (PCR) NEGATIVE (Negative) RSV RNA Qual (PCR) NEGATIVE (Negative) SARS-CoV-2 RNA (RT-PCR) NEGATIVE (Negative) Discharge Plan Discharge Clinical Impression: Atypical chest pain Patient Disposition: Home, Self-Care Instructions: Chest Pain (ED) Additional Instructions: All of your screening labs including 2 cardiac enzymes were normal. There were no concerning changes on your EKG and the chest x-ray is clear. Keep your pending appointment with your primary care provider, I suspect that you will likely have further workup as an outpatient in regard to your chest pain related complaints. Prescriptions: No Action diltiazem HCl 180 mg capsule,extended release 24hr 180 mg PO DAILY Qty: 90 1RF Xarelto 20 mg tablet 20 mg PO QPM Qty: 90 3RF lidocaine 5 % cream 1 appl topical BID PRN (Reason: pain) Qty: 15 0RF polyethylene glycol 3350 [Miralax] 17 gram/dose powder 17 g PO DAILY Qty: 119 0RF diclofenac sodium 1 % gel 1 ea topical QID albuterol sulfate 90 mcg/actuation HFA aerosol inhaler 2 puff inhalation Q4H PRN (Reason: wheezing) ascorbic acid (vitamin C) 500 mg capsule PO nitric oxide gas 100 PPM gas inhalation tamsulosin 0.4 mg capsule 0.4 mg PO BID atorvastatin 20 mg tablet 20 mg PO DAILY olopatadine 0.1 % drops 1 drp ophthalmic (eye) ONCE carboxymethylcellulose sodium 0.5 % drops ophthalmic (eye) levetiracetam 1,000 mg tablet 750 mg PO BID furosemide 20 mg tablet 20 mg PO DAILY ketotifen fumarate [Eye Itch Relief] 0.025 % (0.035 %) drops ophthalmic (eye) nitroglycerin 0.3 mg tablet, sublingual sublingual citalopram 40 mg tablet 40 mg PO DAILY Print Language: Upper Sorbian
[2024-10-22 16:16] LABS: MANUAL DIFF FLAG NO
[2024-10-22 16:18] LABS: Basophils Percent Auto 0.5 % (0-2); Eosinophils Absolute Auto 0.2 X10*3/uL (0.0-0.4); Hemoglobin 13.3 g/dl (14.0-18.0); Imm Gran Abs Auto 0.02 X10*3/uL (0.00-0.03); Imm Gran Pct Auto 0.4 % (0.0-0.4); Lymphocytes Absolute Auto 0.5 X10*3/uL (1.2-4.9); Lymphocytes Percent Auto 9.8 % (20-40); Mean Corpuscular Hemoglobin 32.3 pg (27.0-33.0); Mean Corpuscular Volume 92.2 fL (80.0-98.0); Mean Platelet Volume 9.3 fL (9.4-12.4); Monocytes Absolute Auto 0.4 X10*3/uL (0.1-1.2); Monocytes Percent Auto 6.3 % (2-11); Neutrophils Absolute Auto 4.4 x10*3/uL (2.0-8.3); Platelet Count 226 X10*3/uL (160-400); Red Blood Count 4.12 X10*6/uL (4.60-5.80); White Blood Count 5.5 X10*3/uL (4.8-10.8)
[2024-10-22 16:25] LABS: INTERNATIONAL NORM RATIO 1.4 (0.9-1.1); Prothrombin Time 16.1 SEC (10.9-12.4)
--- NOTE | 2024-10-22 16:29 | ECG_ITS ---
Test Reason : cp Blood Pressure : */* mmHG Vent. Rate : 61 BPM Atrial Rate : 61 BPM P-R Int : 212 ms QRS Dur : 72 ms QT Int : 412 ms P-R-T Axes : 59 -8 0 degrees QTcB Int : 414 ms Sinus rhythm with 1st degree A-V block with Premature supraventricular complexes Otherwise normal ECG When compared with ECG of 22-Oct-2024 15:51, No significant change was found Referred By: Caroline Gaona Electronically Signed By: Remington Johnson
[2024-10-22 16:34] LABS: Alanine Aminotransferase 18 U/L (0-40); Alkaline Phosphatase 55 U/L (39-117); Anion Gap 13 (12-20); Aspartate Amino Transferase 29 U/L (5-37); Bilirubin Total 0.3 mg/dL (0.0-1.0); Blood Urea Nitrogen 14 mg/dL (9-16); Carbon Dioxide 24 mmol/L (22-29); Chloride 107 mmol/L (96-108); Creatinine Clr Calc Pharmacy 81.7; Estimated Glomerular Filt Rate > 60; Glucose Random 139 mg/dL (60-115); Magnesium 2.1 mg/dL (1.6-2.6); Sodium 140 mmol/L (135-145); Total Protein 6.8 g/dL (6.5-8.0)
[2024-10-22 16:41] LABS: Troponin-I High Sensitivity 3.2 ng/L (<3.5-35.0)
[2024-10-22 16:56] LABS: Influenza A PCR NEGATIVE (Negative); Influenza B PCR NEGATIVE (Negative); Resp Syncy Virus RNA Qual PCR NEGATIVE (Negative); SARS COV2 PCR INHOUSE NEGATIVE (Negative)
--- OUTSIDE RECORDS SUMMARY | 2024-10-22 17:06 | XMS_ITS | Clinical Summary ---
Author Organization Patient Business Ser [facility] Address [address] [place] [address] Care Team Providers Care White Mixing Operator Name Role Phone Grabiel Kasper MD Primary Care Pr ovider Allergies Active Allergy Reactions Criticality Noted Date Comments Codeine 10/05/2016 Hydrocodone Anxiety Low 10/05/2016 Hydrocodone-Acetaminoph en Anaphylaxis,Anxiety High 11/16/2005 Other Wheezing 12/07/2011 Penicillins 11/16/2005 does not recall RXN Phenacetin Medium 11/16/2005 does npt recall RXN Piroxicam Hives High 08/07/2008 Rofecoxib Anaphylaxis High 11/16/2005 Medications loratadine (CLARITIN) 10 mg tablet Take 1 tablet (10 mg total) by mouth 1 (one) time each day. 10/29/19 24 Active fluticasone propionate (FLONASE) 50 mcg/actuation nasal spray Administer 1 spray into each nostril 1 (one) time each day. 10/29/19 24 Active acetaminophen (TYLENOL) 500 mg tablet Take 1 tablet (500 mg total) by mouth 2 (two) times a day. 12/02/19 17 Active Refresh Tears 0.5 % ophthalmic solution 08/29/19 24 Active clotrimazole-betam ethasone (LOTRISONE) 1-0.05 % cream Apply small amounts to affected area every 12 hours. Do not use for more than 14 days at a time 04/19/20 24 025 Active levETIRAcetam (KEPPRA) 1,000 mg tablet Take 1 tablet (1,000 mg total) by mouth 2 (two) times a day. 04/13/20 24 Active umeclidinium-vilan teroL (Anoro Ellipta) 62.5-25 mcg/actuation inhalerIndications :Chronic obstructive pulmonary disease, unspecified COPD type (CMS/HCC) Inhale 1 puff by mouth 1 (one) time each day. 1 each 05/23/20 24 025 Active tamsulosin (FLOMAX) 0.4 mg 24 hr capsule TAKE 1 CAPSULE BY MOUTH TWO TIMES A DAY 30 MINUTES AFTER SAME MEAL EACH DAY 180 capsule 1 06/02/20 24 Active ammonium lactate (LAC-HYDRIN) 12 % lotion Apply topically if needed. 02/16/20 24 Active Xarelto 20 mg tablet Take 1 tablet (20 mg total) by mouth 1 (one) time each day with dinner. 06/02/20 24 Active atorvastatin (LIPITOR) 20 mg tablet Take 1 tablet (20 mg total) by mouth at bedtime. 90 each 1 06/28/20 24 Active albuterol HFA (PROAIR HFA ; PROVENTIL HFA ; VENTOLIN HFA) 90 mcg/actuation inhaler Inhale 2 puffs by mouth every 4 (four) hours if needed for shortness of breath or wheezing. 6.7 g 2 06/28/20 24 Active nitroglycerin (NITROSTAT) 0.[address] 1 tablet (0.3 mg total) under the tongue every 5 (five) minutes if needed for chest pain. 90 tablet 06/28/20 24 Active dilTIAZem CD (CARDIZEM CD) 180 mg 24 hr capsule Take 1 capsule (180 mg total) by mouth 1 (one) time each day. 90 each 1 06/28/20 24 Active citalopram (CeleXA) 40 mg tablet TAKE 1 TABLET BY MOUTH DAILY 90 tablet 1 07/25/19 25 Active furosemide (LASIX) 20 mg tabletIndications: Chronic venous insufficiency Take 1 tablet (20 mg total) by mouth 1 (one) time each day if needed (edema). 90 tablet 1 10/07/19 25 025 Active furosemide (LASIX) 20 mg tablet Take 1 tablet (20 mg total) by mouth 1 (one) time each day. 025 Discontin ued(Reord er) rivaroxaban 1 mg/mL suspension for reconstitution Take 20 mg by mouth. 025 Discontin ued(Dupli shahnaz order) Active Problems Problem Noted Date Diagnosed Date Primary osteoarthritis of left knee 10/06/2024 Malignant melanoma 04/13/2024 Overview (10/06/2024): Left inner ear; Following with dermatology; watchful waiting; patient declined extensive reconstruction of the left ear Left carpal tunnel syndrome 06/14/2023 Lumbar radiculopathy 06/14/2023 Chronic venous insufficiency 11/18/2022 Assessment & Plan (10/06/2024 11:49 AM EDT): Continue Lasix as needed Orders: furosemide (LASIX) 20 mg tablet; Take 1 tablet (20 mg total) by mouth 1 (one) time each day if needed (edema). CAD (coronary artery disease) 10/13/2022 Overview (04/13/2024): Diffuse 3 vessel disease - Dr. Blake Assessment & Plan (10/06/2024 11:49 AM EDT): Continue statin Orders: Lipid panel with reflex to direct LDL; Future Actinic keratoses 08/20/2022 Stage 1 mild COPD [...] meantime he should let him know his belt brander regarding the left- sided chest pain. I do think that the pain is most likely muscular due to the fact that is reproducible when I touch the left side of his chest. Advised to come back to see me in 1 year or before if needed. Assessment & Plan (10/06/2024 11:49 AM EDT): Continue follow-up with pulmonology. Continue Anoro daily and albuterol as needed Diffusion capacity of lung (dl), decreased 01/02 [...] prostatic hyperplasia with urinary freque ncy 09/17/2021 Assessment & Plan (10/06/2024 11:49 AM EDT): Continue Flomax 0.4 mg twice daily Sleep apnea 06/13/2021 Overview (04/13/2024): Jan 04, [...] Osteoarthritis of right hip 09/17/2020 Depression 09/11/2020 Assessment & Plan (10/06/2024 11:49 AM EDT): Stable. Continue Celexa 40 mg daily Carotid artery stenosis 07/19/2019 Overview (04/13/2024): Carotid US: :IMPRESSION: 50-69% stenosis of the left internal carotid artery by visual inspection.0- 49% stenosis of the right internal carotid artery. Patient declined surgical intervention. Neural foraminal stenosis of cervical spine 11/18 Spinal stenosis, lumbar 02/26/2017 Atrial fibrillation 11/20/2015 Assessment & Plan (10/06/2024 11:49 AM EDT): Continue cardiology follow-up. Continue Cardizem 180 mg daily and Xarelto 20 mg daily Orders: CBC and differential; Future Seizure disorder 11/20/2015 Assessment & Plan (10/06/2024 11:49 AM EDT): Continue neurology follow-up. Continue Keppra 750 mg twice daily DDD (degenerative disc disease), lumbar 10/30/19 16 Gallstone 03/09/2013 Eczematous dermatitis 10/14/2012 Protein S deficiency 07/05/2009 Assessment & Plan (10/06/2024 11:49 AM EDT): Continue Xarelto 20 mg daily Essential hypertension, benign 01/11/2006 Assessment & Plan (10/06/2024 11:49 AM EDT): Blood pressure is stable. Continue Cardizem 180 mg daily Orders: Comprehensive metabolic panel; Future Transient cerebral ischemia 11/16/2005 Overview (04/13/2024): Carotid US Mri normal 1997;p <50% 2011 Obesity (BMI 30.0-34.9) 11/16/2005 Hepatitis C, chronic 11/16/2005 Overview (04/13/2024): Genotype 1A. Hearing loss 11/16/2005 Resolved Problems Problem Noted Date Diagnosed Date Resolved Date Diverticulitis of colon without hemorrhage 11/16/2005 10/06/2024 Encounters Date Type Department Care Team Description 10/06/2024 10:45 AM EDT - 10/06/2024 11:59 PM EDT Hospital Encounter [address] [phone] Chronic pain of left knee Discharge Disposition: Home or Self Care 10/06/2024 10:40 AM EDT - 10/06/2024 11:59 PM EDT Hospital Encounter [address] [phone] Other constipation Discharge Disposition: Home or Self Care 10/06/2024 9:45 AM EDT Office Visit Adult Medicine [address] [phone] Grabiel Kasper MD Longstanding persistent atrial fibrillation (CMS/HCC) (Primary Dx); Chronic coronary microvascular dysfunction; Chronic venous insufficiency; Essential hypertension, benign; Protein S deficiency (CMS/HCC); Major depressive disorder in partial remission, unspecified whether recurrent (CMS/HCC); Stage 1 mild COPD by GOLD classification (CMS/HCC); Benign prostatic hyperplasia with urinary frequency; Seizure disorder (CMS/HCC); Discoloration and thickening of nails both feet; Chronic pain of left knee; Other constipation from Last 3 Months Immunizations Name Administration Dates Next Due COVID-19 (Pfizer/Comirnaty) 12yo and older 04/14/2023 H1N1 Inj Preservative Free 09/23/2009 Hepatitis A Adult (Havrix; V aqta) 19yo and older 05/19/2017,10/08/2016 Hepatitis A-Hepatitis B Adul t (Twinrix) 18yo and older 05/19/2017,11/09/2016,10/08/2016 Hepatitis B (Uluvzep-P-Fctdg , Recombivax HB-Adult) 19yo and older 05/19/2017,11/09/2016,10/08/2016 [...] Surgery Date Site/Laterality Comments KNEE ARTHROPLASTY PROCEDURE: AK ARTHRS KNEE ABRASION ARTHRP/SENIOR MEDICAL DIRECTOR DRLG/MICROFX; COMMENT: x 2 left SHOULDER ARTHROSCOPY PROCEDURE: AK SURGICAL ARTHROSCOPY SHOULDER W/LSS&RESCJ ADS HERNIA REPAIR 2004 PROCEDURE: REPAIR UMBILICAL HERNIA OTHER SURGICAL HISTORY PROCEDURE: AK BIOPSY LIVER NEEDLE PERCUTANEOUS HIP ARTHROPLASTY 05/2007 PROCEDURE: HISTORICAL HIP REPLACEMENT OTHER SURGICAL HISTORY 11/13/2005 PROCEDURE: COLON CA SCRN NOT HI RSK IND HERNIA REPAIR PROCEDURE: LAPAROSCOPY, INGUINAL HERNIA REPAIR Medical History Medical History Date Comments Acute hepatitis C without me ntion of hepatic coma(070.51) 11/16/2005 DX:Acute hepatitis C without mention of hepatic coma(070.51); COMMENT: BLOOD TRANSFUSION late 1959's for hemolytic anemia Obesity, unspecified 11/16/2005 DX:Obesity, unspecified Diverticulosis of colon (wit hout mention of hemorrhage) 11/16/2005 DX:Diverticulosis of colon ( without mention of hemorrhage) Acquired hemolytic anemia, unspecified age 29 DX:Acquired hemolytic anemia, unspecified (HCC); COMMENT: Resolved - Hep C [...] DX:Chest pa in, atypical; COMMENT: [place] [facility] neg stress MIBI Lab test negative for COVID-19 virus 10/25/2020 DX:Lab test negative for COVID- 19 virus Actinic keratoses 08/20/2022 DX:Actinic ker atoses Acute cough 12/16/2022 DX:Acute cough Diverticulitis of colon with out hemorrhage 11/16/2005 Family History Medical History Relation Name Comments [...] Father DM, stomach can cer? Maternal Grandfather Maternal Grandmother Mother CVA, DM, Bladde r [...] Sign Reading Time Taken Comments Blood Pressure 138/68 10/06/2024 9:30 AM EDT Pulse 67 10/06/2024 9:30 AM EDT Temperature 36.5 ??C (97.7 ??F) 10/06/2024 9:30 AM ED T Respiratory Rate 16 10/06/2024 9:30 AM EDT Oxygen Saturation 96% 06/28/2024 2:44 PM EST Inhaled Oxygen Concentration - - Weight 96.6 kg (213 lb) 10/06/2024 9:30 AM EDT Height 175.3 cm (5' 9 ) 10/06/2024 9:30 AM EDT Body Mass Index 31.45 10/06/2024 9:30 AM EDT Plan of Treatment Upcoming Encounters Date Type Department Care Team ([facility] st Contact Info) Description 10/31/2024 11:00 AM EDT Evaluation Outpatient Rehabilitation [address] [phone] Lonnie Mackey, PT 175 [place] [address] 10/31/2024 2:00 PM EDT Office Visit Gastroenterology [address] [phone] Isabel Schmitt, [place] [address] [address] 11/20/2024 9:30 AM EDT Office Visit Pulmonolgy - [place] [address] [phone] Liza Luis MD [address] [address] 12/21/2024 8:30 AM EDT Consult Orthopedic Surgery - [place] [address] [phone] Dank Rose, DPM [address] [address] 02/05/2025 9:00 AM EDT Office Visit Adult Medicine [facility] [address] [place] [phone] Grabiel Kasper MD [address] [place] [address] Health Maintenance Due Date Last Done Comments Depression Screening 05/20/2020 Falls Risk Assessment 05/20/2020 Social Influencers of Health Screening 05/20/2020 Hypertension/CHF/CAD Annual BMP Blood Test 10/09/2025 10/09/2024, 04/04/2024, 04/04/2024, Additional history exists Cholesterol Screening (Lipid Panel) 10/09/2029 10/09/2024, 04/04/2024, 04/04/2024, Additional history exists DTaP,Tdap,and Td Vaccines (9 - Td or Tdap) 05/15/2033 05/15/2023, 10/18/2015, 09/21/2012, Additional history exists Hepatitis A Vaccines Completed 05/19/2017, 05/19/2017, 11/09/2016, Additional history exists Hepatitis B Vaccines Completed 05/19/2017, 05/19/2017, 11/09/2016, Additional history exists Zoster Vaccines Completed 06/07/2020, 03/20, 12/22/2017, Additional history exists Pneumococcal Vaccine: 50+ Years Completed 04/14/2023, 09/18/2019, 07/19/2016, Additional history exists RSV Immunization Adult Patients Completed 04/14/2023, 04/14/2023 COVID-19 Vaccine Completed 04/12/2024, , 11/16/2022, Additional history exists Influenza Vaccine Completed 05/28/2024, , 03/29/2023, Additional history exists HIB Vaccines Aged Out [...] Procedure Name Priority Date/Time Associated Diagnosis Comments CBC WITH AUTO DIFFERENTIAL Routine 10/09/2024 8:54 AM EDT Longstanding persistent atrial fibrillation (CMS/HCC) LIPID PANEL WITH REFLEX TO DIRECT LDL Routine 10/09/2024 8:54 AM EDT Chronic coronary microvascular dysfunction COMPREHENSIVE METABOLIC PANEL Routine 10/09/2024 8:54 AM EDT Essential hypertension, benign THYROID STIMULATING HORMONE WITH REFLEX TO FREE T4 AND FREE T3 Routine 10/09/2024 8:54 AM EDT Other constipation CBC AND DIFFERENTIAL Routine 10/09/2024 8:54 AM EDT Longstanding persistent atrial fibrillation (CMS/HCC) XR ABDOMEN 1 VIEW Routine 10/06/2024 11: 08 AM EDT Other constipation XR KNEE 4+ VIEWS LEFT Routine 10/06/2024 11:08 AM EDT Chronic pain of left knee XR CHEST 2 VIEWS Routine 08/02/2024 8:44 AM EST from Last 3 Months Results * Thyroid stimulating hormone with reflex to free t4 and free t3 (10/09/2024 8:54 AM EDT) TSH 2.25 0.40 - 4.00 mcIU/mL LAB CHEMISTRY METHOD 10/09/2024 2:45 PM EDT [facility] Blood Venous blood specimen / Unknown Venipuncture / Unknown 10/09/2024 8:54 AM EDT 10/09/2024 8:54 AM EDT us Grabiel Kasper MD LAB BLOOD ORDERA BLES Final Result [facility] [address] [place] [address], [place] [phone] * Lipid panel with reflex to direct LDL (10/09/2024 8:54 AM EDT) Cholesterol 117 0 - 200 mg/dL LAB CHEMISTRY METHOD 10/09/2024 2:00 PM EDT [facility] Triglycerides 92 0 - 150 mg/dL LAB CHEMISTRY METHOD 10/09/2024 2:00 PM EDT [facility] HDL 45 >=40 mg/dL LAB CHEMISTRY METHOD 10/09/2024 2:00 PM EDT [facility] LDL Calculated 54 0 - 100 mg/dL LAB CHEMISTRY METHOD 10/09/2024 2:00 PM EDT [facility] VLDL Cholesterol Gabriele 18.4 mg/dL LAB CHEMISTRY METHOD 10/09/2024 2:00 PM EDT [facility] Non HDL Chol. (LDL+VLDL) 72 <145 mg/dL LAB CHEMISTRY METHOD 10/09/2024 2:00 PM EDT [facility] Chol/HDL Ratio 2.6 0.0 - 4.4 LAB CHEMISTRY METHOD 10/09/2024 2:00 PM EDT [facility] Blood Venous blood specimen / Unknown Venipuncture / Unknown 10/09/2024 8:54 AM EDT 10/09/2024 8:54 AM EDT Grabiel Kasper MD LAB BLOOD ORDERA BLES Final Result [facility] [address] [place] [address], [place] [phone] * (ABNORMAL) CBC auto differential (10/09/2024 8:54 AM EDT) [facility] WBC 6.7 4.8 - 10.8 K/mcL LAB HEMETOLOGY METHOD 10/09/2024 10:40 AM [facility] RBC 4.30(L) 4.50 - 5.50 M/mcL LAB HEMETOLOGY METHOD 10/09/2024 10:40 AM [facility] Hemoglobin 13.8 13.5 - 17.5 g/dL LAB HEMETOLOGY METHOD 10/09/2024 10:40 AM [facility] Hematocrit 41.3(L) 42.0 - 54.0 % LAB HEMETOLOGY METHOD 10/09/2024 10:40 AM [facility] MCV 95.2 79.0 - 98.0 FL LAB HEMETOLOGY METHOD 10/09/2024 10:40 AM [facility] MCH 31.8 27.0 - 32.0 pcg LAB HEMETOLOGY METHOD 10/09/2024 10:40 AM [facility] MCHC 33.4 32.0 - 37.0 g/dL LAB HEMETOLOGY METHOD 10/09/2024 10:40 AM [facility] RDW 13.6 11.0 - 15.0 % LAB HEMETOLOGY METHOD 10/09/2024 10:40 AM [facility] Platelets 221 130 - 400 K/mcL LAB HEMETOLOGY METHOD 10/09/2024 10:40 AM [facility] MPV 9.7 7.0 - 11.0 FL LAB HEMETOLOGY METHOD 10/09/2024 10:40 AM [facility] NRBC 0.0 <1.0 % LAB HEMETOLOGY METHOD 10/09/2024 10:40 AM [facility] NRBC Absolute 0.00 <0.10 K/mcL LAB HEMETOLOGY METHOD 10/09/2024 10:40 AM T [facility] Neutrophils Relative 74.4 % LAB HEMETOLOGY METHOD 10/09/2024 10:40 AM [facility] Lymphocytes Relative 10.4 % LAB HEMETOLOGY METHOD 10/09/2024 10:40 AM [facility] Monocytes Relative 9.1 % LAB HEMETOLOGY METHOD 10/09/2024 10:40 AM [facility] Eosinophils Relative 5.5 % LAB HEMETOLOGY METHOD 10/09/2024 10:40 AM [facility] Basophils Relative 0.3 % LAB HEMETOLOGY METHOD 10/09/2024 10:40 AM [facility] Immature Granulocytes Relative 0.3 % LAB HEMETOLOGY METHOD 10/09/2024 10:40 AM [facility] Neutrophils Absolute 5.00 1.50 - 7.00 K/mcL LAB HEMETOLOGY METHOD 10/09/2024 10:40 AM [facility] Lymphocytes Absolute 0.70(L) 1.00 - 5.00 K/mcL LAB HEMETOLOGY METHOD 10/09/2024 10:40 AM [facility] Monocytes Absolute 0.61 0.20 - 1.00 K/mcL LAB HEMETOLOGY METHOD 10/09/2024 10:40 AM [facility] Eosinophils Absolute 0.37 0.00 - 0.50 K/mcL LAB HEMETOLOGY METHOD 10/09/2024 10:40 AM [facility] Basophils Absolute 0.02 0.00 - 0.20 K/mcL LAB HEMETOLOGY METHOD 10/09/2024 10:40 AM [facility] Immature Granulocytes Absolute 0.02 0.00 - 0.03 K/mcL LAB HEMETOLOGY METHOD 10/09/2024 10:40 AM [facility] Blood Venous blood specimen / Unknown Venipuncture / Unknown 10/09/2024 8:54 AM EDT 10/09/2024 8:54 AM EDT Grabiel Kasper MD LAB BLOOD ORDERA BLES Final Result [facility] [address] [place] [address], * (ABNORMAL) Comprehensive metabolic panel (10/09/2024 8:54 AM EDT) Sodium 137 133 - 145 mmol/L LAB CHEMISTRY METHOD 10/09/2024 2:00 PM [facility] Potassium 4.0 3.5 - 5.5 mmol/L LAB CHEMISTRY METHOD 10/09/2024 2:00 PM [facility] Chloride 105 96 - 110 mmol/L LAB CHEMISTRY METHOD 10/09/2024 2:00 PM [facility] CO2 25 21 - 32 mmol/L LAB CHEMISTRY METHOD 10/09/2024 2:00 PM [facility] Anion Gap 7 3 - 11 LAB CHEMISTRY METHOD 10/09/2024 2:00 PM [facility] Glucose 109(H) 70 - 100 mg/dL LAB CHEMISTRY METHOD 10/09/2024 2:00 PM [facility] BUN 12 5 - 25 mg/dL LAB CHEMISTRY METHOD 10/09/2024 2:00 PM [facility] Creatinine 0.80 0.70 - 1.30 mg/dL LAB CHEMISTRY METHOD 10/09/2024 2:00 PM [facility] eGFR 88 >=60 mL/min/1. 73m2 LAB CHEMISTRY METHOD 10/09/2024 2:00 PM [facility] Comment:Calculation based on the??Chronic Kidney Disease Epidemiology Collaboration (CKD-EPI) equation refit??without adjustment for race. BUN/Creatinine Ratio 15.0 LAB CHEMISTRY METHOD 10/09/2024 2:00 PM EDT [facility] Calcium 9.0 8.5 - 10.5 mg/dL LAB CHEMISTRY METHOD 10/09/2024 2:00 PM [facility] AST (SGOT) 17 10 - 42 unit/L LAB CHEMISTRY METHOD 10/09/2024 2:00 PM T [facility] ALT (SGPT) 20 10 - 60 unit/L LAB CHEMISTRY METHOD 10/09/2024 2:00 PM T [facility] Alkaline Phosphatase 60 42 - 121 unit/L LAB CHEMISTRY METHOD 10/09/2024 2:00 PM [facility] Total Protein 6.8 6.0 - 8.0 g/dL LAB CHEMISTRY METHOD 10/09/2024 2:00 PM EDT [facility] Albumin 3.7 3.2 - 5.0 g/dL LAB CHEMISTRY METHOD 10/09/2024 2:00 PM [facility] Total Bilirubin 0.6 0.0 - 1.4 mg/dL LAB CHEMISTRY METHOD 10/09/2024 2:00 PM T [facility] Blood Venous blood specimen / Unknown Venipuncture / Unknown 10/09/2024 8:54 AM EDT 10/09/2024 8:54 AM EDT us Grabiel Kasper MD LAB BLOOD ORDERA BLES Final Result [facility] [address] [place] [address], [place] [phone] * XR Abdomen 1 View (10/06/2024 11:08 AM EDT) Anatomical Region Laterality Modality Body Radiographic Amarilys ging 10/06/2024 11:5 8 AM EDT Impressions 10/06/2024 12:05 PM EDT 1. ??Moderate stool load at the expected location of the descending and sigmoid colons. 2. ??Probable wall thickening surrounding the presumed intrarectal gas. Consider CT of abdomen/pelvis for better evaluation. -------- FINAL REPORT -------- Dictated By: Andrez Nascimento Dictated Date: 10/06/2024 11:58 ET Assigned Physician: Andrez Nascimento Reviewed and Electronically Signed By: Andrez Nascimento Signed Date: 10/06/2024 12:05 ET Workstation ID: [id number] Transcribed By: Self Edit Transcribed Date: 10/06/2024 11:58 ET Narrative 10/06/2024 12:05 PM EDT XR ABDOMEN 1 VIEW Reason: consitpation Comparison: None FINDINGS: Nonobstructive bowel gas pattern. ??Colonic loops, presumably transverse and redundant sigmoid colons are distended with gas. ??Moderate amount of stool load within the expected location of the descending and sigmoid colons. ??Findings suggesting possible wall thickening surrounding the presumed gas in the expected location of the rectum. Surgical clips in the right upper quadrant, likely from previous cholecystectomy. ??Advanced degenerative changes along the lumbar spine and left hip joint. ??Status post right hip replacement. Procedure Note Andrez Nascimento MD - 10/06/2024 XR ABDOMEN 1 VIEW Reason: consitpation Comparison: None FINDINGS: Nonobstructive bowel gas pattern. Colonic loops, presumably transverseand redundant sigmoid colons are distended with gas. Moderate amount ofstool load within the expected location of the descending and sigmoidcolons. Findings suggesting possible wall thickening surrounding thepresumed gas in the expected location of the rectum. Surgical clips in the right upper quadrant, likely from previouscholecystectomy. Advanced degenerative changes along the lumbar spine andleft hip joint. Status post right hip replacement. IMPRESSION: 1. Moderate stool load at the expected location of the descending andsigmoid colons. 2. Probable wall thickening surrounding the presumed intrarectal gas. Consider CT of abdomen/pelvis for better evaluation. -------- FINAL REPORT -------- Dictated By: Andrez Nascimento Dictated Date: 10/06/2024 11:58 ET Assigned Physician: Andrez Nascimento Reviewed and Electronically Signed By: Andrez Nascimento Signed Date: 10/06/2024 12:05 ET Workstation ID: [id number] Transcribed By: Self Edit Transcribed Date: 10/06/2024 11:58 ET Grabiel Kasper MD IMG XR PROCEDURE S Final Result * XR Knee 4+ Views Left (10/06/2024 11:08 AM EDT) Anatomical Region Laterality Modality Lower Extremities, Knee Left [facility] 10/06/2024 11:5 0 AM EDT Impressions 10/06/2024 11:52 AM EDT Mild degenerative changes in the medial femorotibial and patellofemoral compartments. -------- FINAL REPORT -------- Dictated By: Andrez Nascimento Dictated Date: 10/06/2024 11:50 ET Assigned Physician: Andrez Nascimento Reviewed and Electronically Signed By: Andrez Nascimento Signed Date: 10/06/2024 11:52 ET Workstation ID: [id number] Transcribed By: Self Edit Transcribed Date: 10/06/2024 11:50 ET Narrative 10/06/2024 11:52 AM EDT XR KNEE 4+ VIEWS LEFT Reason: left knee pain Comparison: None FINDINGS: Mild degenerative changes of the medial femorotibial compartment with joint space narrowing and small marginal osteophytes. ??Posterior patellar spur. ??Faint calcification of the lateral meniscus. ??Lateral translation of the patella. ??Hypertrophic changes at the level of the tibial tuberosity may reflect Brantwood-Schlatter's disease. ??No suprapatellar joint effusion. Procedure Note Andrez Nascimento MD - 10/06/2024 XR KNEE 4+ VIEWS LEFT Reason: left knee pain Comparison: None FINDINGS: Mild degenerative changes of the medial femorotibial compartment withjoint space narrowing and small marginal osteophytes. Posterior patellarspur. Faint calcification of the lateral meniscus. Lateral translationof the patella. Hypertrophic changes at the level of the tibialtuberosity may reflect Brantwood-Schlatter's disease. No suprapatellar jointeffusion. IMPRESSION: Mild degenerative changes in the medial femorotibial and patellofemoralcompartments. -------- FINAL REPORT -------- Dictated By: Andrez Nascimento Dictated Date: 10/06/2024 11:50 ET Assigned Physician: Andrez Nascimento Reviewed and Electronically Signed By: Andrez Nascimento Signed Date: 10/06/2024 11:52 ET Workstation ID: [id number] Transcribed By: Self Edit Transcribed Date: 10/06/2024 11:50 ET Grabiel Kasper MD IMG XR PROCEDURE S Final Result * XR Chest 2 Views (08/02/2024 8:44 AM EST) Anatomical Region Laterality Modality Body Radiographic Amarilys ging us Historical Provider IMAzalia XR PROCEDURES Final R esult from Last 3 Months Insurance [facility] Care Teams White Mixing Operator Relationship Specialty Start Date End Date Grabiel Kasper MD [address] [place], [place] PCP - General Internal Medicine 02/02/22
--- OUTSIDE RECORDS SUMMARY | 2024-10-22 17:06 | XMS_ITS | Encounter Summary ---
Author Name [facility] [place] [facility] [place] Address [address] [place] [address] Care Team Providers Care Retail Service Representative Name Role Phone POLLY CLIFFORD Primary Care [...] Cherry's Name Patient's Relationship to Policy Cherry [facility] (WNR) MEDICARE ADVANTAGE [facility] (WNR) Jul 19, 2023 [id number] Rayne JACOBO PATIENT [facility] PRESCRIPT ION [id number] 1 Jul 19, 2017 [id number] [phone] Rayne JACOBO PATIENT MEDICARE (WNR) MEDICARE () PART A Sep 16, 2005 PART A [id number] Rayne JACOBO PATIENT MEDICARE (WNR) MEDICARE () PART B Sep 16, 2005 PART B [id number] SUKI JACOBO SR PATIENT MEDICARE (WNR) MEDICARE (M) PART A Sep 16, 2005 PART A SUKI JACOBO SR PATIENT MEDICARE (WNR) MEDICARE (M) PART B Sep 16, 2005 PART B [id number] [phone] SUKI JACOBO SR PATIENT MEDICARE (WNR) MEDICARE (M) PART A Sep 16, 2005 PART A [id number] [phone] SUKI JACOBO SR PATIENT OPTUM RX PRESCRIPT ION RX Jul 19, 2022 THPRX [id number] [phone] Rayne JACOBO PATIENT OPTUM RX PRESCRIPT ION RX Jul 19, 2022 THPRX [id number] Rayne JACOBO PATIENT OPTUM RX PRESCRIPT ION RX Jul 19, 2022 THPRX [id number] [facility] Jul 19, 2017 [id number] [phone] Rayne JACOBO PATIENT [facility] Jul 19, 2017 [facility] [id number] Rayne JACOBO PATIENT [facility] TON ORELLANA E Jul 19, 2017 [id number] Rayne JACOBO PATIENT [facility] [place] [facility] ORGANIZ US FAMIL Y Jul 21, 2013 (WNR) [id number] [phone] Rayne JACOBO PATIENT [facility] TRICA RE(WN R) Jul 19, 2017 (WNR) [id number] Rayne JACOBO PATIENT Selected Encounter This [...] OSHINSKIE,LEA NARD J [facility] [place] [facility] Feb 11, 2024 08:30 AM SECONDARY Esophoria OSHINSKIE,LEA NARD J [facility] [place] [facility] Feb 11, 2024 08:30 AM SECONDARY Hypermetropia, bilateral OSHINSKIE,LEA NARD J [facility] [place] [facility] Feb 11, 2024 08:30 AM SECONDARY Other visual disturbances OSHINSKIE,LEA NARD J [facility] [place] [facility] Feb 11, 2024 08:30 AM SECONDARY Presbyopia OSHINSKIE,LEA NARD J [facility] [place] [facility] Feb 11, 2024 08:30 AM SECONDARY Presence of intraocular lens OSHINSKIE,LEA NARD J [facility] [place] [facility] Feb 11, 2024 08:30 AM SECONDARY Regular astigmatism, bilateral OSHINSKIE,LEA NARD J [facility] [place] [facility] Plan of Treatment: Future Appointments (+ 6 months) and Future Tests (+/- 45 days) The Plan of Treatment section includes future care activities for the patient from all [place] treatmentfacilities. This section includes future appointments and future orders which are active, pending or scheduled. Future Appointments This section includes appointments that were scheduled to occur 6 months from the date of the Encounter, up to a maximum of 20 appointments. The data comes from all [place] treatment facilities. Appointment Date/Time Appointment Type Appointme nt Facility Name Jul 10, 2024 08:30 AM AMBULATORY - MEDICINE [place] [facility] [place] [facility] Social History: Smoking Status (Most current) [...] Ramon ity Oct 29, 2023 06:12 PM ME-TOBACCO QUIT 15 YRS OR MORE [facility] Tobacco Use History This section includes a history of the smoking, or tobacco-related health factors, that were collected on or before the date of the Encounter. The data comes from the [place] facility where the Encounter took place. Date/Time Smoking Status/Tobacco Use Comment F acility Oct 29, 2023 06:12 PM VA-TOBACCO QUIT 15 YRS OR MORE [facility] Aug 23, 2019 09:07 AM VA-TOBACCO FORMER USER [facility] Aug 23, 2019 09:07 AM ME-TOBACCO QUIT 15 YRS OR MORE [facility] Jun 28, 2018 10:50 AM VA-TOBACCO FORMER USER [facility] Jun 28, 2018 10:50 AM ME-TOBACCO QUIT 15 YRS OR MORE [facility] Oct 14, 2017 09:20 AM QUIT TOBACCO USE > 7 YEARS AGO [facility] Oct 05, 2016 01:02 PM QUIT TOBACCO USE > 7 YEARS AGO [facility] Advance Directives: All historical and current Section Date Range: From patient's date of to the date document was created. This section includes ALL of a patient's completed or amended [place] Advance and Rescinded Directives. The entries below indicate that a directive exists for the patient, but an actual copy is not included with this document. The data comes from all [facility]. Date Advance Directives Provider Source Nov 16, 2023 ADVANCE DIRECTIVE MARC METZGER [facility] Encounter Notes: All associated encounter notes This section contains the clinical notes associated to the Encounter. Date/Time Encounter Note(s) Provider Source Feb 10, 2024 08:06 AM OPTOMETRY NOTE: LOCAL TITLE: OPTOMETRY NOTE STANDARD TITLE: OPTOMETRY NOTE DATE OF NOTE: FEB 10, 2024@08:06 ENTRY DATE: FEB 10, 2024@08:06:46 AUTHOR: YUE GILLIS: VIVI DECKER URGENCY: STATUS: COMPLETED OPTOMETRY NOTE Has ADDENDA Active problems - Computerized Problem List is the source for the followin. Chronic obstructive pulmonary disease 2. Benign Prostatic Hypertrophy without Outflow Obstruction ([facility] [id number]) 3. Lumbosacral radiculopathy 4. Multiple renal cysts [...] BY MOUTH ONCE ACTIVE DAILY 14) Non-VA [id number] G 30D INH 1 ACTIVE INHALATION BY [...] symptoms -continue care with neurology -monitor at CEE 3. Pseudophakia with Posterior Capsular Opacification OU -stable OU -not visually significant or interfering with ADLs currently -mild PCO evaluated by ophthalmology who elected to defer YAG OU at present -monitor at CEE 4. Esophoria with Intermittent Diplopia OU -pt asymptomatic at present -continue with current specs with prism and taking breaks when reading for long periods of time -monitor at CEE 5. Hyperopia with astigmatism and presbyopia OU -no refraction performed today -monitor at CEE Return to Clinic 6 months for CEE or earlier PRN /laba/ Vivi Decker OD Fee Basis Human Resources Associate Signed: 02/10/2024 10:17 for YUE GILLIS OPTOMETRY STUDENT /alba/ Vivi Decker OD Fee Basis Human Resources Associate Cosigned: 02/10/2024 10:17 02/10/2024 ADDENDUM STATUS: COMPLETED I reviewed all findings with the merchandise examiner. I performed the slit lamp exam. No overt signs of dry eyes so will treat for allergic conjunctivitis. Progress note reviewed and edited as needed. I established the plan of care and educated the patient about his conditions. Pt deferred receiving a list of current medications /alba/ Vivi Decker OD Fee Basis Human Resources Associate Signed: 02/10/2024 10:18 [facility]
--- OUTSIDE RECORDS SUMMARY | 2024-10-22 17:06 | XMS_ITS | Encounter Summary ---
Author Name [facility] [place] Address [address] [place] [address] Care Team Providers Care Basting Machine Operator Name Role Phone POLLY CLIFFORD [...] Cherry's Name Patient's Relationship to Policy Cherry [facility] (WNR) MEDICARE ADVANTAGE [facility] ([facility] Jul 19, 2023 [id number] Rayne JACOBO PATIENT [facility] PRESCRIPT ION [id number] 1 Jul 19, 2017 [id number] Rayne JACOBO PATIENT MEDICARE ([facility]) MEDICARE () PART A Sep 16, 2005 PART A [id number] Rayne JACOBO PATIENT MEDICARE ([facility]) MEDICARE () PART B Sep 16, 2005 PART B [id number] [phone] SUKI JACOBO SR PATIENT MEDICARE (WNR) MEDICARE (M) PART A Sep 16, 2005 PART A SUKI JACOBO SR PATIENT MEDICARE (WNR) MEDICARE (M) PART B Sep 16, 2005 PART B [id number] SUKI JACOBO SR PATIENT MEDICARE (WNR) MEDICARE (M) PART A Sep 16, 2005 PART A [id number] SUKI JACOBO SR PATIENT OPTUM RX PRESCRIPT ION RX Jul 19, 2022 THPRX [id number] Rayne JACOBO PATIENT OPTUM RX PRESCRIPT ION RX Jul 19, 2022 THPRX [id number] [phone] Rayne JACOBO PATIENT OPTUM RX PRESCRIPT ION RX Jul 19, 2022 THPRX [id number] Rayne JACOBO PATIENT [facility] Jul 19, 2017 [id number] [phone] Rayne JACOBO PATIENT [facility] Jul 19, 2017 [facility] [id number] Rayne JACOBO PATIENT [facility] Jul 19, 2017 [id number] Rayne JACOBO PATIENT [facility] CE ORGANIZ US FAMIL Y Jul 21, 2013 (WNR) [id number] Rayne JACOBO PATIENT [facility] (R) TRICA RE(WN R) Jul 19, 2017 (WNR) [id number] Rayne JACOBO PATIENT Selected Encounter This section includes the information on record at [place] for the Encounter. Date/Time Encounter Type Encounter Description Reason Provider Source 2024 09:00 AM THERAPEUTIC EXERCISES PHYSICAL THERAPY ICD-10-CM M25.562 Pain in left knee GENE LI E Encounter Template Text not used by [place] Assessments - Encounter Diagnoses This section includes the primary and secondary diagnoses documented for the Encounter. Date/Time Primary/Secondary Diagnosis Diagnosis Name Provider Source 2024 09:44 AM PRIMARY Pain in left knee GENE LI [place] [facility] [place] [facility] 2024 09:44 AM SECONDARY Low back pain, unspecified GENE LI [place] [facility] [place] [facility] Plan of Treatment: Future Appointments (+ 6 months) and Future Tests (+/- 45 days) The Plan of Treatment section includes future care activities for the [facility] [place] [facility]. This section includes future appointments and future orders which are active, pending or scheduled. Future Appointments This section includes appointments that were scheduled to occur 6 months from the date of the Encounter, up to a maximum of 20 appointments. The data comes from all [place] treatment facilities. Appointment Date/Time Appointment Type Appointme nt Facility Name Oct 23, 2024 01:00 PM AMBULATORY - REHAB MEDICIN E [place] [facility] [place] [facility] Nov 01, 2024 08:30 AM AMBULATORY - [facility] [place] [facility] Social History: Smoking Status (Most current) [...] Facil ity Oct 29, 2023 06:12 PM [place]-TOBACCO QUIT 15 YRS OR MORE [facility] Tobacco Use History This section includes a history of the smoking, or tobacco-related health factors, that were collected on or before the date of the Encounter. The data comes from the [place] facility where the Encounter took place. Date/Time Smoking Status/Tobacco Use Comment F accecile Oct 29, 2023 06:12 PM MA-TOBACCO QUIT 15 YRS OR MORE [place] [facility] [place] [facility] Aug 23, 2019 09:07 AM MA-TOBACCO FOR[facility] USER [facility] Aug 23, 2019 09:07 AM VA-TOBACCO QUIT 15 YRS OR MORE [facility] Jun 28, 2018 10:50 AM VA-TOBACCO FORMER USER [facility] Jun 28, 2018 10:50 AM [place]-TOBACCO QUIT 15 YRS OR MORE [facility] Oct 14, 2017 09:20 AM QUIT TOBACCO USE > 7 YEARS AGO [facility] Oct 05, 2016 01:02 PM QUIT TOBACCO USE > 7 YEARS AGO [facility] Advance Directives: All historical and current [...] Provider Source Nov 16, 2023 ADVANCE DIRECTIVE DOMENICAYOVANNYMARC [facility] Encounter Notes: All associated encounter notes This section contains the clinical notes associated to the Encounter. Date/Time Encounter Note(s) Provider Source 2024 09:38 AM PHYSICAL THERAPY NOTE: LOCAL TITLE: PHYSICAL THERAPY STANDARD TITLE: PHYSICAL THERAPY NOTE DATE OF NOTE: 2024@09:38 ENTRY DATE: 2024@09:38:12 AUTHOR: XOCHILT LI EXP COSIGNER: URGENCY: STATUS: COMPLETED Initial [...] possible Gerofit candidate /es/ AVEL PHAN LICENSE CLOTH DOFFER Signed: 2024 09:45 XOCHILT LI [facility]
--- OUTSIDE RECORDS SUMMARY | 2024-10-22 17:06 | XMS_ITS ---
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 I [...] Overview (04/13/2024): Genotype 1A. Hearing loss 11/16/2005 Current Oncology Plans No current plan information found. Past Plans No past plan information found. Radiation Treatments * No radiation treatments are documented for this patient in [facility]. Treatments may have been administered in another system. Lifetime Dose Tracking * Chemical Lifetime Dose Automatic Entry Manual Entr y CTDIvol 16.48 mGy 16.48 mGy 0 mGy Resolved Problems Problem Noted Date Diagnosed Date Resolved Date Diverticulitis of colon without hemorrhage 11/16/2005 10/06/2024
--- OUTSIDE RECORDS SUMMARY | 2024-10-22 17:06 | XMS_ITS | Encounter Summary ---
Author Organization [facility] Address [address] [place] [address] Care Team Providers Care Investigator Internal Revenue Name Role Phone Grabiel Kasper MD Primary Care Pr ovider Encounter Details Date Type Department Care Team (Late Contact Info) Description 05/05/2024 9:00 AM EDT Hospital Encounter TH HISTORIC ENCOUNTERS EASTERN CONVERSION ONLY Grabiel Kasper MD [address] [place] [phone] Social History Tobacco Use Types Packs/Day Years [...] Encounters Date Type Department Care Team (Late Contact Info) Description 10/31/2024 11:00 AM EDT Evaluation Outpatient Rehabilitation [address] [phone] Lonnie Mackey, PT [address] [place] [address] 10/31/2024 2:00 PM EDT Office Visit Gastroenterology - [place] 175 [facility] [address] [facility] [address] [place] [phone] Isabel Schmitt NP 175 [facility] [address] [place] [address] 11/20/2024 9:30 AM EDT Office Visit Pulmonolgy - [place] [address] [facility] [address] [place] [address] Liza Luis MD 175 [facility] [address] [place] [address] 12/21/2024 8:30 AM EDT Consult Orthopedic Surgery - [place] [address] [facility] [address] [place] [phone] Dank Rose, DPM [address] [facility] [address] [place] [address] 02/05/2025 9:00 AM EDT Office Visit Adult Medicine [facility] [address] [place] [phone] Grabiel Kasper MD [address] [place] [phone] documented as of this encounter Visit Diagnoses Not on filedocumented in this encounter Care Teams Investigator Internal Revenue Relationship Specialty Start Date End Date Grabiel Kasper MD [address] [facility], [place] PCP - General Internal Medicine 02/02/22 documented as of this encounter
--- OUTSIDE RECORDS SUMMARY | 2024-10-22 17:06 | XMS_ITS | Encounter Summary ---
Author Name [place] Organization [place] Address [address] [place] [id number] Care Team Providers Care Wood [employer] Factory Worker Name Role Phone POLLY CLIFFORD Primary [...] Cherry's Name Patient's Relationship to Policy Cherry [facility] (WNR) MEDICARE ADVANTAGE [facility] ([facility]) Jul 19, 2023 [id number] Rayne JACOBO PATIENT [facility] PRESCRIPT ION [id number] 1 Jul 19, 2017 [id number] Rayne JACOBO PATIENT MEDICARE (WN) MEDICARE (M) PART A Sep 16, 2005 PART A [id number] [phone] Rayne JACOBO PATIENT MEDICARE (WNR) MEDICARE (M) PART B Sep 16, 2005 PART B [id number] [phone] SUKI JACOBO SR PATIENT MEDICARE (WNR) MEDICARE (M) PART A Sep 16, 2005 PART A SUKI JACOBO SR PATIENT MEDICARE (WNR) MEDICARE (M) PART B Sep 16, 2005 PART B [id number] SUKI JACOBO SR PATIENT MEDICARE (WNR) MEDICARE (M) PART A Sep 16, 2005 PART A [id number] SUKI JACOBO SR PATIENT OPTUM RX PRESCRIPT ION RX Jul 19, 2022 THPRX [id number] Rayne JACOBO PATIENT OPTUM RX PRESCRIPT ION RX Jul 19, 2022 THPRX [id number] Rayne JACOBO PATIENT OPTUM RX PRESCRIPT ION RX Jul 19, 2022 THPRX [id number] [phone] Rayne JACOBO PATIENT [facility] Jul 19, 2017 [id number] YULIZAHRAJOSE MIGUELRayne PATIENT [facility] Jul 19, 2017 [facility] [id number] Rayne JACOBO PATIENT [facility] TON ORELLANA E Jul 19, 2017 [id number] YULIRayne GARCIA PATIENT [facility] CE ORGANIZ US FAMIL Y Jul 21, 2013 (WNR) [id number] [phone] Rayne JACOBO PATIENT [facility] ([facility]) [facility] TRICA RE(WN R) Jul 19, 2017 (WNR) [id number] Rayne JACOBO PATIENT Selected Encounter This section includes the information on record at [place] for the Encounter. Date/Time Encounter Type Encounter Description Reason Provider Source Nov 16, 2023 11:00 AM OFFICE O/P NEW HI 60 MIN PRIMARY CARE/MEDICINE ICD-10-CM J44.9 Chronic obstructive pulmonary disease, unspecified FURCOLO,POLLY IHE Encounter Template Text not used by [place] Assessments - Encounter Diagnoses This section includes the primary and secondary diagnoses documented for the Encounter. Date/Time Primary/Secondary Diagnosis Diagnosis Name Provider Source Nov 16, 2023 11:56 AM PRIMARY Chronic obstructive pulmonary disease, unspecified FURCOLO,POLLY [facility] [place] [facility] Nov 16, 2023 11:56 AM SECONDARY Benign prostatic hyperplasia without lower urinry tract symp FURCOLO,POLLY [facility] [place] [facility] Nov 16, 2023 11:56 AM SECONDARY Chronic atrial fibrillation, unspecified FURCOLO,POLLY [facility] [place] [facility] Nov 16, 2023 11:56 AM SECONDARY Local-rel symptc epi w simp prt seiz,not ntrct, w/o stat epi FURCOLO,POLLY [facility] [place] [facility] Nov 16, 2023 11:56 AM SECONDARY Mild cognitive impairment of uncertain or unknown etiology FURCOLO,POLLY [facility] [place] [facility] Plan of Treatment: Future Appointments (+ 6 months) and Future Tests (+/- 45 days) The Plan of Treatment section includes future care activities for the patient [facility] [place] [facility] This section includes future appointments and future orders which are active, pending or scheduled. Future Appointments This section includes appointments that were scheduled to occur 6 months from the date of the Encounter, up to a maximum of 20 appointments. The data comes from all [place] treatment facilities. Appointment Date/Time Appointment Type Appointme nt Facility Name Dec 27, 2023 01:00 PM AMBULATORY - REHAB MEDICIN E [facility] [place] [facility] Dec 31, 2023 10:30 AM AMBULATORY - MEDICINE [place] [facility] [facility] Feb 10, 2024 08:30 AM AMBULATORY - MEDICINE [place] [facility] [place] [facility] Vital Signs: All taken on the encounter date This section contains inpatient and outpatient Vital Signs collected on the date of the Encounter. Date/Time Temperature Pulse Blood Pressure Respiratory Rate SP02 Pain Height Weight Body Mass Index Source Nov 16, 2023 11:00 AM 98.5 68 127/74 16 94 0 69 218 32 [facility] [place] [facility] Social History: Smoking Status (Most current) and Tobacco Use (All prior to encounter date) This section includes the most current, and the historical, smoking and tobacco- related health factors from the [place] facility where the Encounter took place. Current Smoking Status This section includes the most current smoking, or tobacco-related health factor, from the [place] facility where the Encounter took place. Date/Time Current Smoking Status Comment Facil ity Oct 29, 2023 06:12 PM [place]-TOBACCO QUIT 15 YRS OR MORE [facility] Tobacco Use History This section includes a history of the smoking, or tobacco-related health factors, that were collected on or before the date of the Encounter. The data comes from the [place] facility where the Encounter took place. Date/Time Smoking Status/Tobacco Use Comment F acility Oct 29, 2023 06:12 PM VA-TOBACCO QUIT 15 YRS OR MORE [facility] Aug 23, 2019 09:07 AM VA-TOBACCO FOR[facility] USER [facility] Aug 23, 2019 09:07 AM VA-TOBACCO QUIT 15 YRS OR MORE [facility] Jun 28, 2018 10:50 AM [facility] Jun 28, 2018 10:50 AM [place]-TOBACCO QUIT 15 YRS OR MORE [facility] Oct 14, 2017 09:20 AM QUIT TOBACCO USE > 7 YEARS AGO [facility] Oct 05, 2016 01:02 PM QUIT TOBACCO USE > 7 YEARS AGO [facility] Advance Directives: All historical and current Section Date Range: From patient's date of to the date document was created. This section includes ALL of a patient's completed or amended [place] Advance and Rescinded Directives. The entries below indicate that a directive exists for the patient, but an actual copy is not included with this document. The data comes from all [facility]. Date Advance Directives Provider Source Nov 16, 2023 ADVANCE DIRECTIVE MARC METZGER [facility] Encounter Notes: All associated [...] Practical Nurse Signed: 11/16/2023 12:13 MARC METZGER [facility] Nov 16, 2023 12:11 PM ADVANCE DIRECTIVE: LOCAL TITLE: ADVANCE DIRECTIVE STANDARD TITLE: ADVANCE DIRECTIVE DATE OF NOTE: NOV 16, 2023@12:11 ENTRY DATE: NOV 16, 2023@12:11:45 AUTHOR: MARC METZGER EXP COSIGNER: URGENCY: STATUS: COMPLETED * [ ]Advance Directive executed with . [X]Patient brought in his/her own Advance Directive. Scanned Advance Directive or Advance Directive/AOD Flowsheet is located in [employer]. /alba/ MARC METZGER LPN License Practical Nurse Signed: 11/16/2023 12:11 MARC METZGER [facility] Nov 16, 2023 11:09 AM PHYSICIAN [...] TEAM Community Primary [facility]: [facility] Specialists: Community Specialists: [facility]- Dr. Eduardo Son dental- DR. 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 was in ER recently for dizziness, visison change and some chest pain- when on toilet. pending eval by cardiology- might be thinking about carotid disease RELEVANT PAST MEDICAL HISTORY Active problems - Computerized Problem List is the source for the followin. 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 Benign Prostatic Hypertrophy without Outflow Obstruction (SCT [id number]) 3. Lumbosacral radiculopathy 4. Multiple renal cysts [...] trauma/fall 10. Atrial fibrillation xarelto. cardiology Dr. Mack Khan [facility]. h/o cardioversion 11. Seizure disorder nonconvulsive seizures dx [facility]. lamotrigine. Neurology Dr. Dontrell 12. Cerebral atrophy no h/o head injury 13. 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 Lumbosacral radiculopathy 3. Multiple renal cysts [...] to trauma/fall 9. Atrial fibrillation xarelto. cardiology [facility]. h/o cardioversion 10. Seizure disorder nonconvulsive seizures dx [facility]. on [facility] Neurology Dr. Son 11. Cerebral atrophy no [...] D.O. PHYSICIAN Signed: 11/16/2023 11:56 POLLY CLIFFORD [place] [facility]
--- OUTSIDE RECORDS SUMMARY | 2024-10-22 17:06 | XMS_ITS | Encounter Summary ---
Author Name [place] Address [address] [place] [address] Care Team Providers Care Journeyman Powerhouse Operator Name Role Phone POLLY CLIFFORD Primary [...] Cherry's Name Patient's Relationship to Policy Cherry [facility] (WNR) MEDICARE ADVANTAGE [facility] ([facility]) Jul 19, 2023 [id number] Rayne JACOBO PATIENT [employer] PRESCRIPT ION [id number] 1 Jul 19, 2017 [id number] [phone] Rayne JACOBO PATIENT MEDICARE (WN) MEDICARE (M) PART A Sep 16, 2005 PART A [id number] Rayne JACOBO PATIENT MEDICARE (WNR) MEDICARE (M) PART B Sep 16, 2005 PART B [id number] SUKI JACOBO SR PATIENT MEDICARE (WNR) MEDICARE (M) PART A Sep 16, 2005 PART A SUKI JACOBO SR PATIENT MEDICARE (WNR) MEDICARE (M) PART B Sep 16, 2005 PART B [id number] SUKI JACOBO SR PATIENT MEDICARE (WNR) MEDICARE (M) PART A Sep 16, 2005 PART A [id number] SUKI JACOBO SR PATIENT OPTUM RX PRESCRIPT ION RX Jul 19, 2022 THPRX [id number] Rayne JACOBO PATIENT OPTUM RX PRESCRIPT ION RX Jul 19, 2022 THPRX [id number] [phone] Rayne JACOBO PATIENT OPTUM RX PRESCRIPT ION RX Jul 19, 2022 THPRX [id number] Rayne JACOBO PATIENT [facility] Jul 19, 2017 [id number] [phone] AVELINASiddharthaRayne SCHUMACHER PATIENT [facility] Jul 19, 2017 [facility] [id number] Rayne JACOBO PATIENT [facility] TON ORELLANA E Jul 19, 2017 [id number] [phone] Rayne JACOBO PATIENT [facility] CE ORGANIZ US FAMIL Y Jul 21, 2013 (WNR) [id number] Rayne JACOBO PATIENT [facility] ([facility]) [facility] TRICA RE(WN R) Jul 19, 2017 (WNR) [id number] Rayne JACOBO PATIENT Selected Encounter This section includes the information on record at [place] for the Encounter. Date/Time Encounter Type Encounter Description Reason Provider Source Aug 29, 2024 10:30 AM OFFICE O/P EST HI 40 MIN PRIMARY CARE/MEDICINE ICD-10-CM J44.9 Chronic obstructive pulmonary disease, unspecified FURCOLO,POLLY IHE Encounter Template Text not used by [place] Assessments - Encounter Diagnoses This section includes the primary and secondary diagnoses documented for the Encounter. Date/Time Primary/Secondary Diagnosis Diagnosis Name Provider Source Aug 29, 2024 11:23 AM PRIMARY Chronic obstructive pulmonary disease, unspecified FURCOLO,POLLY [facility] [place] [facility] Aug 29, 2024 11:23 AM SECONDARY Benign prostatic hyperplasia without lower urinry tract symp FURCOLO,POLLY [facility] [place] [facility] Aug 29, 2024 11:23 AM SECONDARY Chronic atrial fibrillation, unspecified FURCOLO,POLLY [facility] [place] [facility] Aug 29, 2024 11:23 AM SECONDARY Chronic hepatitis, unspecified FURCOLO,POLLY [facility] [place] [facility] Aug 29, 2024 11:23 AM SECONDARY Cyst of kidney, acquired FURCOLO,POLLY [facility] [place] [facility] Aug 29, 2024 11:23 AM SECONDARY Essential (primary) hypertension FURCOLO,POLLY [facility] [place] [facility] Aug 29, 2024 11:23 AM SECONDARY Local-rel symptc epi w simp prt seiz,not ntrct, w/o stat epi FURCOLO,POLLY [facility] [place] [facility] Aug 29, 2024 11:23 AM SECONDARY Mild cognitive impairment of uncertain or unknown etiology FURCOLO,POLLY [facility] [place] [facility] Aug 29, 2024 11:23 AM SECONDARY Polyneuropathy due to other toxic agents FURCOLO,POLLY [facility] [place] [facility] Aug 29, 2024 11:23 AM SECONDARY Radiculopathy, lumbar region FURCOLO,POLLY [facility] [place] [facility] Aug 29, 2024 11:23 AM SECONDARY Sleep apnea, unspecified FURCOLO,POLLY [facility] [place] [facility] Plan of Treatment: Future Appointments (+ 6 months) and Future Tests (+/- 45 days) The Plan of Treatment section includes future care activities for the patient from all [place] treatmentfacilities. This section includes future appointments and future orders which are active, pending or scheduled. Future Appointments This section includes appointments that were scheduled to occur 6 months from the date of the Encounter, up to a maximum of 20 appointments. The data comes from all [place] treatment facilities. Appointment Date/Time Appointment Type Appointme nt Facility Name Sep 08, 2024 08:30 AM AMBULATORY - MEDICINE [place] [facility] [place] [place] [facility] Sep 08, 2024 09:00 AM AMBULATORY - MEDICINE [place] [facility] [place] [facility] Sep 19, 2024 01:30 PM AMBULATORY - REHAB MEDICIN E [facility] [place] [facility] Sep 25, 2024 02:00 PM AMBULATORY - REHAB MEDICIN E [facility] [place] [facility] Oct 02, 2024 01:00 PM AMBULATORY - MEDICINE [place] [facility] [place] [facility] Oct 02, 2024 02:00 PM AMBULATORY - REHAB MEDICIN E [facility] [place] [facility] 2024 09:00 AM AMBULATORY - REHAB MEDICIN E [facility] [place] [facility] Oct 23, 2024 01:00 PM AMBULATORY - REHAB MEDICIN E [facility] [place] [facility] Nov 01, 2024 08:30 AM AMBULATORY - REHAB MEDICIN E [place] [facility] [place] [place] [facility] Vital Signs: All taken on the encounter date This section contains inpatient and outpatient Vital Signs collected on the date of the Encounter. Date/Time Temperature Pulse Blood Pressure Respiratory Rate SP02 Pain Height Weight Body Mass Index Source Aug 29, 2024 10:47 AM 98.4 56 133/71 16 96 0 220 33 [place] [facility] [place] [place] [facility] Social History: Smoking Status (Most current) and Tobacco Use (All prior to encounter date) This section includes the most current, and the historical, smoking and tobacco- related health factors from the [place] facility where the Encounter took place. Current Smoking Status This section includes the most current smoking, or tobacco-related health factor, from the [place] facility where the Encounter took place. Date/Time Current Smoking Status Comment Ramon yost Oct 29, 2023 06:12 PM VA-TOBACCO QUIT 15 YRS OR MORE [place] [facility] Tobacco Use History This section includes a history of the smoking, or tobacco-related health factors, that were collected on or before the date of the Encounter. The data comes from the [place] facility where the Encounter took place. Date/Time Smoking Status/Tobacco Use Comment F acility Oct 29, 2023 06:12 PM VA-TOBACCO QUIT [facility] YRS OR [facility] Aug 23, 2019 09:07 AM VA-[facility]BACCO [facility] Aug 23, 2019 09:07 AM VA-TOBACCO QUIT 15 YRS OR MORE [facility] Jun 28, 2018 10:50 AM [facility]ACCO [facility] Jun 28, 2018 10:50 AM [place]-TOBACCO QUIT 15 YRS OR MORE [facility] Oct 14, 2017 09:20 AM QUIT TOBACCO USE > 7 YEARS AGO [facility] Oct 05, 2016 01:02 PM QUIT TOBACCO USE > 7 YEARS AGO [facility] Advance Directives: All historical and current Section Date Range: From patient's date of to the date document was created. This section includes ALL of a patient's completed or amended [place] Advance and Rescinded Directives. The entries below indicate that a directive exists for the patient, but an actual copy is not included with this document. The data comes from all [place] facilities. Date Advance Directives Provider Source Nov 16, 2023 ADVANCE DIRECTIVE MARC METZGER [facility] Encounter Notes: All associated encounter [...] Results I reeust and authorize Departnt of Primekss to release the information specified below to [...] Practical Nurse Signed: 08/29/2024 12:17 MARC METZGER [place] [facility] [place] [facility] Aug 29, 2024 11:00 AM PHYSICIAN NOTE: LOCAL TITLE: MD NOTE STANDARD TITLE: PHYSICIAN NOTE DATE OF NOTE: AUG 29, 2024@11:00 ENTRY DATE: AUG 29, 2024@11:00:16 AUTHOR: POLLY CLIFFORD COSIGNER: URGENCY: STATUS: COMPLETED LEONARDO JACOBO is a 83 year old WHITE MALE who is being seen today in primary care for ER f/u of chest pain CARE TEAM Community Primary Care Provider: Brenda Bowens [place] Specialists: Community Specialists: [facility] Dr. Eduardo Son dental- DR. Albarran- 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 Chronic obstructive pulmonary disease sees [facility] milk tester 2. Benign Prostatic Hypertrophy without Outflow Obstruction (SCT [id number]) 3. Lumbosacral radiculopathy 4. Multiple renal cysts [...] trauma/fall 10. Atrial fibrillation [facility] 11. Seizure disorder nonconvulsive seizures. on [facility], sees Dr. Son 12. Cerebral atrophy no h/o head injury 13. 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 Chronic obstructive pulmonary disease sees [facility] milk tester 2. Benign Prostatic Hypertrophy without Outflow Obstruction ([facility] [id number]) 3. Lumbosacral radiculopathy 4. Multiple renal cysts [...] trauma/fall 10. Atrial fibrillation xarelto. cardiology Dr. Ottoh - [facility]. h/o cardioversion. on xarelto- no falls 11. [...] D.O. PHYSICIAN Signed: 08/29/2024 11:23 POLLY CLIFFORD [facility] Aug 29, 2024 10:53 AM PREVENTIVE [...] Practical Nurse Signed: 08/29/2024 10:53 MARC METZGER [facility]
--- OUTSIDE RECORDS SUMMARY | 2024-10-22 17:06 | XMS_ITS | Encounter Summary ---
Author Name Department [place] Organization [place] Address [address] [place] [id number] Care Team Providers Care Reproducer Name Role Phone POLLY CLIFFORD Primary Care [...] Cherry's Name Patient's Relationship to Policy Cherry [facility] (WNR) MEDICARE ADVANTAGE [facility] ([facility]) Jul 19, 2023 [id number] Rayne JACOBO PATIENT CAREMARK PRESCRIPT ION [id number] 1 Jul 19, 2017 [id number] Rayne JACOBO PATIENT MEDICARE (WN) MEDICARE (M) PART A Sep 16, 2005 PART A [id number] Rayne JACOBO PATIENT MEDICARE (WNR) MEDICARE (M) PART B Sep 16, 2005 PART B [id number] [phone] [id number] SUKI JACOBO SR PATIENT MEDICARE (WNR) MEDICARE (M) PART A Sep 16, 2005 PART A [id number] SUKI JACOBO SR PATIENT MEDICARE (WNR) MEDICARE (M) PART B Sep 16, 2005 PART B [id number] [phone] SUKI JACOBO SR PATIENT MEDICARE (WNR) MEDICARE (M) PART A Sep 16, 2005 PART A [id number] SUKI JACOBO SR PATIENT OPTUM RX PRESCRIPT ION RX Jul 19, 2022 THPRX [id number] Rayne JACOBO PATIENT OPTUM RX PRESCRIPT ION RX Jul 19, 2022 THPRX [id number] Rayne JACOBO PATIENT OPTUM RX PRESCRIPT ION RX Jul 19, 2022 THPRX [id number] [phone] Rayne JACOBO PATIENT [facility] Jul 19, 2017 [id number] AVELINASiddharthaRayne SCHUMACHER PATIENT [facility] Jul 19, 2017 [facility] [id number] Rayne JACOBO [facility] Jul 19, 2017 [id number] Rayne JACOBO PATIENT [facility] CE ORGANIZ US FAMIL Y Jul 21, 2013 (WNR) [id number] [phone] Rayne JACOBO PATIENT [facility] ([facility]) [facility] TRICA RE(WN R) Jul 19, 2017 (WNR) [id number] Rayne JACOBO PATIENT Selected Encounter This [...] 2023 11:02 AM PRIMARY Constipation, unspecified FURCOLO,POLLY [place] [facility] Plan of Treatment: Future Appointments (+ 6 months) and Future Tests (+/- 45 days) The Plan of Treatment section includes future care activities for the patient from all [place] [facility]. This section includes future appointments and future [...] 10, 2024 08:30 AM [facility] Social History: Smoking Status (Most current) and Tobacco Use (All prior to encounter date) This section includes the most current, and the historical, smoking and tobacco- related health factors from the [place] facility where the Encounter took place. Current Smoking Status This section includes the most current smoking, or tobacco-related health factor, from the [place] facility where the Encounter took place. Date/Time Current Smoking Status Comment Facil ity Oct 29, 2023 06:12 PM [facility]-TOBACCO [facility] Tobacco Use History This section includes a history of the smoking, or tobacco-related health factors, that were collected on or before the date of the Encounter. The data comes from the [place] facility where the Encounter took place. Date/Time Smoking Status/Tobacco Use Comment F acility Oct 29, 2023 06:12 PM VA-TOBACCO QUIT 15 YRS OR MORE [place] [facility] [facility] Aug 23, 2019 09:07 AM VA-TOBACCO FORMER USER [place] [facility] [facility] Aug 23, 2019 09:07 AM VA-TOBACCO QUIT 15 YRS OR MORE [place] [facility] [place] [facility] Jun 28, 2018 10:50 AM VA-TOBACCO FORMER USER [place] [facility] [place] [facility] Jun 28, 2018 10:50 AM VA-TOBACCO QUIT 15 YRS OR MORE [facility] Oct 14, 2017 09:20 AM QUIT TOBACCO USE > 7 YEARS AGO [facility] Oct 05, 2016 01:02 PM QUIT TOBACCO USE > 7 YEARS AGO [facility] Advance Directives: All historical and current [...] Nov 16, 2023 ADVANCE DIRECTIVE MARC METZGER [facility] Encounter Notes: All associated encounter notes This section contains the clinical notes associated to the Encounter. Date/Time Encounter Note(s) Provider Source Dec 31, 2023 10:47 AM TELEHEALTH NOTE: LOCAL TITLE: [place] VIDEO CONNECT PRIMARY CARE STANDARD TITLE: TELEHEALTH NOTE DATE OF NOTE: DEC 31, 2023@10:47 ENTRY DATE: DEC 31, 2023@10:47:52 AUTHOR: POLLY CLIFFORD EXP COSIGNER: URGENCY: STATUS: COMPLETED [place] Video Connect (VVC) Standard Documentation VVC Clinician Resources Only: E911 (Emergency Call Relay Center): [phone] National Veterans Crisis Line - 988 then press #1. [facility] Suicide Coordinator - [phone], Ext. [phone]; Back-up Ext. [phone] [place] PoliceSARAH Leeds - [phone] Introduction: Visit is being conducted by [place] [employer]. Wilson identified with 2 identifiers: [X] Full Name [X] Date of [ ] VA ID Card Emergency Plan: Wilson confirmed and/or provided the following information in case of emergency or technology failure. PATIENT PHONE - PHONE NUMBER [CELLULAR] - Is patient phone number correct, if not, enter below: 's phone number: [address], [place] [address] 's present location and address for appointment: same Wilson's emergency contact name and phone number: same Wilson reported that location is private and safe: Yes Informed Consent: informed of the risks and benefits of Telehealth video care. has the right to refuse video services. If refuses video visit, a enkz-ni-tmsc visit will be scheduled. Wilson verbalized consent for this video visit: Yes provided consent for any other persons present for visit: Yes If yes, who and relationship to patient: Secure visit: Visit was locked for security and privacy:Yes Vital Signs Visualized during video visit: LEONARDO JACOBO is a 83 year old WHITE MALE who is being seen today in primary care for f/u of constipation. CARE TEAM Community [facility] Specialists: Community Specialists: [facility] Dr. Eduardo Son dental- DR. 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 RELEVANT PAST MEDICAL HISTORY Active problems - Computerized Problem List is the source for the followin. Chronic obstructive pulmonary disease sees [facility] resident physician 2. Benign Prostatic Hypertrophy without Outflow Obstruction ([facility] [id number]) 3. Lumbosacral radiculopathy 4. Multiple renal cysts [...] to trauma/fall 10. Atrial fibrillation xarelto. cardiology [facility]. h/o cardioversion 11. Seizure disorder nonconvulsive seizures dx [facility]. lamotrigine. Neurology Dr. Jon 12. 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
--- OUTSIDE RECORDS SUMMARY | 2024-10-22 17:06 | XMS_ITS | Encounter Summary ---
Author Name [place] Address [address] [place] [address] Care Team Providers Care Research Aide Name Role Phone POLLY CLIFFORD Primary Care [...] Name Patient's Relationship to Policy Cherry [facility] (WNR) MEDICARE ADVANTAGE [facility] (WN) Jul 19, 2023 [id number] Rayne JACOBOMAGGIE PATIENT CAREMARK PRESCRIPT ION [id number] 1 Jul 19, 2017 [id number] [phone] Rayne JACOBOMAGGIE PATIENT MEDICARE ([facility]) MEDICARE () PART B Sep 16, 2005 PART B [id number] SUKI JACBOO SR PATIENT MEDICARE ([facility]) MEDICARE () PART A Sep 16, 2005 PART A [id number] [phone] [id number] Rayne JACOBO PATIENT MEDICARE (WNR) MEDICARE (M) PART A Sep 16, 2005 PART A SUKI JACOBO SR PATIENT MEDICARE (WNR) MEDICARE (M) PART B Sep 16, 2005 PART B [id number] SUKI JACOBO SR PATIENT MEDICARE (WNR) MEDICARE (M) PART A Sep 16, 2005 PART A [id number] SUKI JACOBO SR PATIENT OPTUM RX PRESCRIPT ION RX Jul 19, 2022 THPRX [id number] Rayne JACOBO PATIENT OPTUM RX PRESCRIPT ION RX Jul 19, 2022 THPRX [id number] Rayne JACOBO PATIENT OPTUM RX PRESCRIPT ION RX Jul 19, 2022 THPRX [id number] Rayne JACOBO PATIENT [facility] Jul 19, 2017 [id number] Rayne JACOBO PATIENT [facility] Jul 19, 2017 [facility] [id number] Rayne JACOBO PATIENT [facility] T[facility] E Jul 19, 2017 [id number] Rayne JACOBO PATIENT [facility] CE ORGANIZ US FAMIL Y Jul 21, 2013 (WNR) [id number] [phone] Rayne JACOBO PATIENT [facility] ([facility]) [facility] TRIC RE(WN R) Jul 19, 2017 (WNR) [id number] Rayne JACOBO PATIENT Selected Encounter This section includes the information on record at [place] for the Encounter. Date/Time Encounter Type Encounter Description Reason Provider Source Dec 27, 2023 01:00 PM HEARING AID FITTING/CHECKIN G AUDIOLOGY ICD-10-CM Z46.1 Encounter for fitting and adjustment of hearing aid GEMMA ANN IHE Encounter Template Text not used by [place] Assessments - Encounter Diagnoses This section includes the primary and secondary diagnoses documented for the Encounter. Date/Time Primary/Secondary Diagnosis Diagnosis Name Provider Source Dec 27, 2023 01:25 PM PRIMARY Encounter for fitting and adjustment of hearing aid MARISSAGEMMA E [facility] Dec 27, 2023 01:25 PM SECONDARY Sensorineural hearing loss, bilateral MARISSAGEMMA E [facility] Plan of Treatment: Future Appointments (+ 6 months) and Future Tests (+/- 45 days) The Plan of Treatment section includes future care activities for the patient from all [place] [facility]. This section includes future appointments and [...] 31, 2023 10:30 AM AMBULATORY - MEDICINE [facility] Feb 10, 2024 08:30 AM AMBULATORY - [facility] Social History: Smoking Status (Most current) [...] 29, 2023 06:12 PM VA-TOBACCO FORMER USER [facility] Tobacco Use History This section includes a history of the smoking, or tobacco-related health factors, that were collected on or before the date of the Encounter. The data comes from the [place] facility where the Encounter took place. Date/Time Smoking Status/Tobacco Use Comment F accecile Oct 29, 2023 06:12 PM VA-TOBACCO QUIT 15 YRS OR MORE [place] [facility] Aug 23, 2019 09:07 AM VA-TOBACCO [facility] Aug 23, 2019 09:07 AM VA-TOBACCO QUIT 15 YRS OR MORE [facility] Jun 28, 2018 10:50 AM [place]-TOBACCO FOR[facility] Jun 28, 2018 10:50 AM [place]-TOBACCO QUIT 15 YRS OR MORE [facility] Oct 14, 2017 09:20 AM QUIT TOBACCO USE > 7 YEARS AGO [facility] Oct 05, 2016 01:02 PM QUIT TOBACCO USE > 7 YEARS AGO [facility] Advance Directives: All historical and current Section Date Range: From patient's date of to the date document was created. This section includes ALL of a patient's completed or amended [place] Advance and Rescinded Directives. The entries below indicate that a directive exists for the patient, but an actual copy is not included with this document. The data comes from all [place] facilities. Date Advance Directives Provider Source Nov 16, 2023 ADVANCE DIRECTIVE MARC METZGER [facility] Encounter Notes: All associated encounter notes This section contains the clinical notes associated to the Encounter. Date/Time Encounter Note(s) Provider Source Dec 27, 2023 11:51 AM AUDIOLOGY E & M NO TE: [facility] TITLE: AUDIOLOGY CLINIC STANDARD TITLE: AUDIOLOGY E & M NOTE DATE OF NOTE: DEC 27, 2023@11:51 ENTRY DATE: DEC 27, 2023@11:51:51 AUTHOR: GEMMA ANN COSIGNER: URGENCY: STATUS: COMPLETED has a history of bilateral sensorineural hearing loss. He was seen on 12-27-23 for hearing aid follow up regarding his [facility] ITCs. He reports he has difficulty hearing TV and the left aid is not as loud as the right. Otoscopy was WNLs AU. Wax guards and kandice covers were replaced. The listening check was positive for both hearing aids. Hearing aids were connected to ERIC and overall gain was increased 1 step for the right and 2 for the left. He noted improvement. Use of a media device is recommended. Ensured that the correct device is checked off for auto start in accessories. Ordered media device, should be shipped to [facility] upon receipt. [facility] will contact the clinic as needed. /alba/ Garry SPAIN, [facility]-A STAFF APPLICATIONS SYSTEMS ENGINEER Signed: 12/27/2023 13:29 GEMMA ANN [place] CNTRL TRN [facility]
--- OUTSIDE RECORDS SUMMARY | 2024-10-22 17:06 | XMS_ITS ---
Author Name Department [place] Address [address] [place] [address] Care Team Providers Care Cryptoanalysis Teacher Name Role Phone POLLY CLIFFORD Primary Care [...] Cherry's Name Patient's Relationship to Policy Cherry [facility] (WNR) MEDICARE ADVANTAGE [facility] (WNR) Jul 19, 2023 [id number] Rayne JACOBO PATIENT CAREMARK PRESCRIPT ION [id number] 1 Jul 19, 2017 [id number] Rayne JACOBO PATIENT MEDICARE (WNR) MEDICARE () PART A Sep 16, 2005 PART A [id number] Rayne JACOBO PATIENT MEDICARE (WNR) MEDICARE () PART B Sep 16, 2005 PART B [id number] SUKI JACOBO SR PATIENT MEDICARE (WNR) MEDICARE (M) PART A Sep 16, 2005 PART A [id number] SUKI JACOBO SR PATIENT MEDICARE (WNR) MEDICARE (M) PART B Sep 16, 2005 PART B [id number] SUKI JACOBO SR PATIENT MEDICARE (WNR) MEDICARE (M) PART A Sep 16, 2005 PART A [id number] [phone] SUKI JACOBO SR PATIENT OPTUM RX PRESCRIPT ION RX Jul 19, 2022 THPRX [id number] Rayne JACOBO PATIENT OPTUM RX PRESCRIPT ION RX Jul 19, 2022 THPRX [id number] Rayne JACOBO PATIENT OPTUM RX PRESCRIPT ION RX Jul 19, 2022 THPRX [id number] [phone] Rayne JACOBO PATIENT [facility] Jul 19, 2017 [id number] [phone] Rayne JACOBO PATIENT [facility] Jul 19, 2017 [facility] [id number] Rayne JACOBO PATIENT [facility] TON ORELL[facility] E Jul 19, 2017 [id number] Rayne JACOBO PATIENT [facility] CE ORGANIZ US FAMIL Y Jul 21, 2013 (WNR) [id number] [phone] [facility] ([facility] TRICA RE(WN R) Jul 19, 2017 (WNR) [id number] [phone] Rayne JACOBO PATIENT Selected Encounter This section includes the information on record at [place] for the Encounter. Date/Time Encounter Type Encounter Description Reason Provider Source Oct 02, 2024 01:00 PM INTRM OPH EXAM EST PATIENT OPTOMETRY ICD-10-CM G43.909 Migraine, unsp, not intractable, without status migrainosus NICK MARMOLEJO UMANGNita Encounter Template Text not used by [place] Assessments - Encounter Diagnoses This section includes the primary and secondary diagnoses documented for the Encounter. Date/Time Primary/Secondary Diagnosis Diagnosis Name Provider Source Oct 04, 2024 07:32 AM PRIMARY Migraine, unsp, not intractable, without status migrainosus LACEY MARMOLEJO [place] [facility] Oct 04, 2024 07:32 AM SECONDARY Dry eye syndrome of bilateral lacrimal glands LACEY MARMOLEJO [place] [facility] Oct 04, 2024 07:32 AM SECONDARY Other chronic allergic conjunctivitis LACEY MARMOLEJO [place] [facility] Oct 04, 2024 07:32 AM SECONDARY Other subjective visual disturbances LACEY MARMOLEJO [place] [facility] Oct 04, 2024 07:32 AM SECONDARY Presence of intraocular lens LACEY MARMOLEJO [place] [facility] Plan of Treatment: Future Appointments (+ 6 months) and Future Tests (+/- 45 days) The Plan of Treatment section includes future care activities for the patient from all [place] [facility]. This section includes future appointments and future orders which are active, pending or scheduled. Future Appointments This section includes appointments that were scheduled to occur 6 months from the date of the Encounter, up to a maximum of 20 appointments. The data comes from all [place] treatment facilities. Appointment Date/Time Appointment Type Appointme nt Facility Name 2024 09:00 AM AMBULATORY - REHAB MEDICIN E [place] [facility] Oct 23, 2024 01:00 PM AMBULATORY - REHAB MEDICIN E [place] [facility] Nov 01, 2024 08:30 AM AMBULATORY - REHAB MEDICIN E [place] [facility] Social History: Smoking Status (Most [...] Facil ity Oct 29, 2023 06:12 PM [place]-TOBACCO QUIT 15 YRS OR MORE [facility] Tobacco Use History This section includes a history of the smoking, or tobacco-related health factors, that were collected on or before the date of the Encounter. The data comes from the [place] facility where the Encounter took place. Date/Time Smoking Status/Tobacco Use Comment Prashanth price Oct 29, 2023 06:12 PM VA-TOBACCO QUIT 15 YRS OR MORE [facility] [place] [facility] Aug 23, 2019 09:07 AM VA-TOBACCO FOR[facility] Aug 23, 2019 09:07 AM [place]-TOBACCO QUIT 15 YRS OR MORE [facility]N [place] [facility] Jun 28, 2018 10:50 AM [place]-TOBACCO [facility] [place] [facility] Jun 28, 2018 10:50 AM [place]-TOBACCO QUIT 15 YRS OR MORE [facility] WSN [facility] Oct 14, 2017 09:20 AM QUIT TOBACCO USE > 7 YEARS AGO [facility] [place] [facility] Oct 05, 2016 01:02 PM QUIT TOBACCO USE > 7 YEARS AGO [facility] Advance Directives: All historical and current [...] ADVANCE DIRECTIVE MARC METZGER [facility] Encounter Notes: All associated encounter notes This section contains the clinical notes associated to the Encounter. Date/Time Encounter Note(s) Provider Source Oct 02, 2024 12:49 PM OPTOMETRY NOTE: LOCAL TITLE: OPTOMETRY NOTE STANDARD TITLE: OPTOMETRY NOTE DATE OF NOTE: OCT 02, 2024@12:49 ENTRY DATE: OCT 02, 2024@12:49:54 AUTHOR: CHI CRUZ EXP COSIGNER: JARED MARMOLEJO URGENCY: STATUS: COMPLETED OPTOMETRY NOTE Has ADDENDA Active problems - Computerized Problem List is the source for the followin. Chronic obstructive pulmonary disease 2. Benign Prostatic Hypertrophy without Outflow Obstruction ([facility] [id number]) 3. Lumbosacral radiculopathy 4. Multiple renal cysts [...] BY MOUTH ONCE DAILY ACTIVE 14) Non-VA VMZQLFLWFINI05.5/VILANTERO L25MCG 30D INH 1 INHALATION ACTIVE BY [...] DANNY CRUZ OPTOMETRY STUDENT Signed: 10/02/2024 16:25 /filippo Marmolejo OD CHIEF OF OPTOMETRY Cosigned: 10/04/2024 [...] drops 2-4 times a day each eye /filippo Marmolejo OD CHIEF OF OPTOMETRY Signed: 10/04/2024 07:46 OSKAR CRUZ CNTRL [facility]
--- OUTSIDE RECORDS SUMMARY | 2024-10-22 17:06 | XMS_ITS | Continuity of Care Document ---
Author Name [facility] Organization [facility] Care Team Providers Care Assistant Professor Of Physics Name Role Phone [facility] Unavailable Unavailable Problems Combined list of problems from Department of Defense and Veterans Affairs facilities. It does not include entries that were removed or entered in error. Problem Status Onset Date Problem Type Date of Resolution Comments Source Atrial fibrillation Active Condition Oct 05, 2016 Entered By: MALGORZATA CREWS Comment: jennifer. cardiology [facility]. h/o cardioversion [facility] Benign essential hypertension Active Condition [facility] Benign Prostatic Hypertrophy without Outflow Obstruction (SCT [id number]) Active Condition [facility] Cerebral atrophy Active Condition Oct 05, 2016 Entered By: MALGORZATA CREWS Comment: no h/o head injury [facility] Chronic obstructive pulmonary disease Active Condition Nov 15 Entered By: POLLY CLIFFORD Comment: sees [facility] web applications architect [facility] Cognitive disorder Active Condition Oct 05, 2016 Entered By: MALGORZATA CREWS Comment: 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 [facility] [place] [facility] H/O: osteoarthritis Active Condition Oct 05, 2016 Entered By: MALGORZATA CREWS Comment: L knee chronic limitation in ROMOct 05, 2016 Entered By: MALGORZATA CREWS Comment: h/o R hip replacementOct 05, 2016 Entered By: MALGORZATA CREWS Comment: h/o L rotator cuff repairOct 05, 2016 Entered By: MALGORZATA CREWS Comment: h/o r ankle surgery related to trauma/fall [facility] Hepatitis C Active [...] By: POLLY CLIFFORD Comment: nonconvulsive seizures. [facility], sees Dr. Son [facility] Sleep apnea Active Condition Jan 04, 2017 Entered By: MALGORZATA CREWS Comment: mild 01/02 [facility] Toxic polyneuropathy Active Condition [facility] Diagnosis: ICD-10-CM M25.562 Pain in left knee Active Diagnosis [facility] Diagnosis: ICD-10-CM G43.909 Migraine, unsp, not intractable, without status migrainosus Active Diagnosis [facility] [...] MOUTH TWICE DAILY ORAL ACTIVE JERRY NAVARRO A 2016 [facility] [place] [place] ALBUTEROL 90MCG/ACTUA T (CFC-F) INHL,ORAL,8 .5GM DOSE COUNTER INHALE 2 PUFFS BY MOUTH EVERY 4 HOURS NEEDED RESPIR ATORY (INHAL ATION) ACTIVE 2016 [facility] [place] [facility] ATORVASTATI N CA 40MG TAB TAKE ONE-HALF TABLET BY MOUTH AT BEDTIME ORAL ACTIVE FURCOLO,T ROQUE 2023 [facility] CARBOXYMETH YLCELLULOSE NA 0.5% SOLN,OPH INSTILL 1 DROP INTO EACH EYE FOUR TIMES A DAY OPHTHA LMIC 03/16/2024 [id number] VIVI WARNER 2022 15 [facility] CITALOPRAM HYDROBROMID E 40MG TAB TAKE ONE TABLET BY MOUTH ONCE DAILY ORAL ACTIVE FURCOLO,T ROQUE 2023 [facility] DILTIAZEM HCL 90MG 12HR CAP,SA TAKE 2 CAPSULES BY MOUTH DAILY ORAL ACTIVE CREWS2016 [facility] [place] [facility] EYELID CLEANSER,EY E SCRUB PAD USE 1 PAD TOPICALL Y ONCE DAILY TOPICA L ACTIVE 07/11/2025 [id number] 4 Rayne MARMOLEJO 2023 90 [facility] FUROSEMIDE 20MG TAB TAKE ONE TABLET BY MOUTH ONCE DAILY NEEDED ORAL ACTIVE FURCOLO,T ROQUE 2023 [facility] KETOTIFEN 0.025% SOLN,OPH INSTILL 1 DROP INTO EACH EYE EVERY 12 HOURS FOR ALLERGIC CONJUNCT IVITIS (IF YOU WEAR CONTACT LENSES, WAIT 10 MINUTES BEFORE INSERTIN G LENSES) OPHTHA LMIC ACTIVE 07/11/2025 [id number] 5 Rayne MARMOLEJO 2023 15 [facility] KETOTIFEN 0.025% SOLN,OPH INSTILL 1 DROP INTO EACH EYE EVERY 12 HOURS FOR ALLERGIC CONJUNCT IVITIS (IF YOU WEAR CONTACT LENSES, WAIT 10 MINUTES BEFORE INSERTIN G LENSES) OPHTHA LMIC DISCONT INUED 01/21/2025 [id number] FURCOLO,T ROQUE 2023 15 [facility] KETOTIFEN 0.025% SOLN,OPH INSTILL 1 DROP INTO EACH EYE EVERY 12 HOURS FOR ALLERGIC CONJUNCT IVITIS (IF YOU WEAR CONTACT LENSES, WAIT 10 MINUTES BEFORE INSERTIN G LENSES) [facility]/17[facility]2023 [id number] 4 Helena KOENIG NDREW E 2022 15 [facility] LEVETIRACET AM 500MG TAB TAKE TWO TABLETS BY MOUTH TWICE DAILY ORAL ACTIVE FURCOLO,T ROQUE 2023 [facility] MINERAL OIL,LIGHT/P ETROLATUM (PF) OINT,OPH APPLY THIN RIBBON INTO EACH EYE AT BEDTIME FOR DRY EYE OPHTHA LMIC 02/16/2024 [id number] 4 Helena KOENIG NDREW E 2022 3 [...] FOR DRY EYE OPHTHA LMIC ACTIVE 07/11/2025 [id number] 5 Rayne MARMOLEJO ICHELE 2024 45 [facility] PREDNISOLON E ACETATE 1% SUSP,OPH INSTILL 1 DROP INTO EACH EYE TWICE DAILY INFLAMMA TORY DRY EYE SHAKE WELL BEFORE USING OPHTHA LMIC ACTIVE 07/11/2025 [id number] 5 Rayne MARMOLEJO ICHELE 2023 5 [facility] PSYLLIUM PWDR,ORAL TAKE 1 TEASPOON FUL BY MOUTH ONCE DAILY ORAL ACTIVE FURCOLO,T ROQUE 2023 [facility] RIVAROXABAN 20MG TAB TAKE ONE TABLET BY MOUTH DAILY ORAL ACTIVE CREWS,MEREDITH BENITEZ M 2016 [facility] SENNOSIDES 8.6MG TAB TAKE ONE TABLET BY MOUTH ONCE DAILY ORAL ACTIVE FURCOLO,T ROQUE 2023 [facility] TAMSULOSIN HCL 0.4MG CAP TAKE 1 CAPSULE BY MOUTH ONCE DAILY ORAL ACTIVE FURCOLO,T ROQUE 2023 [facility] [place] UMECLIDINIU M 62.5MCG/ALFA ANTEROL 25MCG/ACTUA T INH,ORAL,30 D INHALE 1 INHALATI ON BY MOUTH ONCE DAILY RESPIR ATORY (INHAL ATION) ACTIVE FURCOLO,T ROQUE 2023 [facility] Allergies, Adverse Reactions, Alerts Combined list of allergies from Department of Defense and Veterans Affairs facilities. It does not include entries that were removed or entered in error. Substance Category Reaction Severity Reaction type Status Date Reported Comments Source CODEINE Propensity to adverse reactions to drug (finding) active 7 [facility] HYDROCODONE Propensity to adverse reactions to drug (finding) active 4 [facility] PIROXICAM Propensity to adverse reactions to drug (finding) [facility] VICODIN Propensity to adverse reactions to drug (finding) Anxiety active 7 [facility] Immunizations Combined list of available immunizations from the Department of Defense and Veterans Affairs facilities. Immunization Series Date Given Administered By Site Reaction Lot Number CVX Code Drug Field Staff Status Comments Source INFLUENZA, UNSPECIFIED FORMULATION 2023 88 complet ed [facility] INFLUENZA, UNSPECIFIED FORMULATION 2022 88 complet ed [facility] COVID-19 (MODERNA), MRNA, LNP-S, PF, 100 MCG/0.5 ML DOSE 2 2020 207 complet ed MOD; [id number]; 1 [facility] COVID-19 (MODERNA), MRNA, LNP-S, PF, 100 MCG/0.5 ML DOSE 1 2020 207 complet ed MOD; [id number]; 1 [facility] [...] CONJUGATE PCV 13 2016 133 complet ed [place] [facility] FLU,3 YRS (HISTORICAL) 2015 88 complet ed [place] - High dose [facility] PNEUMOCOCCAL CONJUGATE PCV 13 2015 133 complet ed [place] [facility] ZOSTER (HISTORICAL) 2015 121 complet ed [place] [facility] TDAP 2015 115 complet ed [place] [facility] FLU,3 YRS (HISTORICAL) 2014 88 complet ed [place] [facility] FLU,3 YRS (HISTORICAL) 2013 88 complet ed [place] [facility] PNEUMOCOCCAL CONJUGATE PCV 13 2013 133 complet ed [place] [facility] FLU,3 YRS (HISTORICAL) 2012 88 complet ed [place] [facility] TDAP 2012 115 complet ed [place] [facility] FLU,3 YRS (HISTORICAL) 2011 88 complet ed [place] [facility] FLU,3 YRS (HISTORICAL) 2010 88 complet ed [place] [facility] TD(ADULT) UNSPECIFIED FORMULATION 2009 139 complet ed [place] [facility] FLU,3 YRS (HISTORICAL) 2009 88 complet ed [place] [facility] FLU,3 YRS (HISTORICAL) 2009 88 complet ed [place] -F1V6-Lkg demic flu [facility] FLU,3 YRS (HISTORICAL) 2008 88 complet ed [place] [facility] ZOSTER (HISTORICAL) 2007 121 complet ed [place] [facility] FLU,3 YRS (HISTORICAL) 2007 88 complet ed [place] [facility] FLU,3 YRS (HISTORICAL) 2006 88 complet ed [place] [facility] FLU,3 YRS (HISTORICAL) 2005 88 complet ed [place] [facility] FLU,3 YRS (HISTORICAL) 2004 88 complet ed [place] [facility] PNEUMOCOCCAL CONJUGATE PCV 13 2004 133 complet ed [place] [facility] TD(ADULT) UNSPECIFIED FORMULATION 2003 139 complet ed [place] [facility] Vital [...] [place] [facility] SYSTOLIC BLOOD PRESSURE 133 08/29/19 25 10:47:38 [facility] DIASTOLIC [...] Source [facility] Out[facility] Encounter [id number] 05/03 [facility] Out[facility] Encounter [id number] 06/03 [facility] Out[facility] Encounter [id number] 06/17 [facility] HEARING AID REPAIR/MOD IFYING [id number] Diagnos is: ICD-10- CM Z46.1 Encount er for fitting and adjustm ent of hearing aid RAPHAEL CALLE 07/01 [facility] Out[facility] Encounter [id number] 07/20 [facility] Out[facility] Encounter [id number] 07/21 [facility] Out[facility] Encounter [id number] 07/23 [facility] INTRM OPH EXAM EST PATIENT [id number] Diagnos is: ICD-10- CM 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 VIVI WARNER 07/30 [facility] Out[facility] Encounter [id number] 07/30 [facility] Out[facility] Encounter [id number] 08/01 [facility] Out[facility] Encounter [id number] 08/19 [facility] HEARING AID REPAIR/MOD IFYING [id number] Diagnos is: ICD-10- CM Z46.1 Encount er for fitting and adjustm ent of hearing aid HUBER ESPINOZA 10/10 [facility] Out[facility] Encounter [id number] SHAINA TERRAZAS 10/24 [facility] Encounter [id number] 10/28 [facility] OFFICE O/P NEW [place] 60 MIN [id number] Diagnos is: ICD-10- CM J44.9 Chronic obstruc tive pulmona ry disease , unspeci fied FURCOLO,TI NA 11/15 [facility] En[facility] [id number] 12/02 [facility] Out[facility] Encounter [id number] 12/05 [facility] Out[facility] Encounter [id number] 12/14 [facility] Out[facility] Encounter [id number] 12/24 [facility] HEARING AID FITTING/CH ECKING [id number] Diagnos is: ICD-10- CM Z46.1 Encount er for fitting and adjustm ent of hearing aid Preet ANN 12/26 [facility] OFFICE O/P EST LOW 20 MIN [id number] Diagnos is: ICD-10- CM K59.00 Constip ation, unspeci fied FURCOLO,TI NA 12/30 [facility] Out[facility] Encounter [id number] 01/20 [facility] Out[facility] Encounter [id number] 01/26 [facility] Out[facility] Encounter [id number] 02/03 [facility] Out[facility] Encounter [id number] 02/03 [facility] Out[facility] Encounter [id number] 02/03 [facility] Out[facility] Encounter [id number] 02/07 [facility] INTRM OPH EXAM EST PATIENT [id number] Diagnos is: ICD-10- CM H10.45 Other chronic allergi c conjunc VIVI Gupta 02/09 [facility] En[facility] [id number] 02/09 [facility] En[facility] [id number] 05/23 [facility] Out[facility] Encounter [id number] 05/28 [facility] Encounter [id number] 06/22 [facility] Out[facility] Encounter [id number] 07/01 [facility] Out[facility] Encounter [id number]/05 [facility] INTRM OPH EXAM EST PATIENT [id number] Diagnos is: ICD-10- CM L71.8 Other rosacea FRANCIE,CO JOSE 07/10 [facility] Out[facility] Encounter [id number] 08/24 [facility] Out[facility] Encounter [id number] 08/29 [facility] OFFICE O/P EST HI 40 MIN [id number] Diagnos is: ICD-10- CM J44.9 Chronic obstruc tive pulmona ry disease , unspeci fied FURCOLO,TI NA 08/29 [facility] Out[facility] Encounter [id number] 09/07 [facility] OFF/OP EST MAY X REQ PHY/QHP [id number] Diagnos is: ICD-10- CM M25.562 Pain in left knee REANNA BOWLES S 09/08 [facility] OFFICE O/P EST MOD 30 MIN [id number] Diagnos is: ICD-10- CM M23.92 Unspeci fied interna l derange ment of left knee KIMBERLEE WAGNER 09/08 [facility] Outpatient Encounter [id number]/19 [facility] THERAPEUTI C EXERCISES [id number] 1. Diagnos is: ICD-10- CM M25.562 Pain in left knee TONIO LAZAR M 09/19 [facility] THERAPEUTI C EXERCISES [id number] Diagnos is: ICD-10- CM M25.562 Pain in left knee GUILLERMO,M KENDY 09/25 [facility] Outpatient Encounter [id number] 09/27 [facility] INTRM OPH EXAM EST PATIENT [id number] Diagnos is: ICD-10- CM G43.909 Migrain e, unsp, not intract able, without status migrain osREANNA Mathis 10/02 [facility] THERAPEUTI C EXERCISES [id number] Diagnos is: ICD-10- CM M25.562 Pain in left knee Rayne LI KENDY 10/02 [facility] [place] [place] [facility] THERAPEUTI C EXERCISES [id number] Diagnos is: ICD-10- CM M25.562 Pain in left knee Rayne LI KENDY 10/10 [facility] [place] [facility] Social History Combined list of available smoking, tobacco, and other social history from Department of Defense and Veterans Affairs facilities. Social History Type Response Date Comment Sour e Tobacco smoking status NHIS RI-TOBACCO QUIT 15 YRS OR MORE 10/29/2023 [facility] [place] [facility] of [facility] OR [facility] 08/23/2019 [facility] History of tobacco use RI-TOBACCO FORMER USER [facility] History of tobacco use QUIT TOBACCO USE > 7 YEARS AGO [facility] History of tobacco use QUIT TOBACCO USE > 7 YEARS AGO 10/05/[facility] Plan of Care List of future care activities from Department of Veterans Affairs facilities. Additional future care activities may be listed in the Assessment and Plan section. Date/Time Care Activity Care Activity Detail Facili ty 10/23/2024 AMBULATORY - REHAB MEDICINE [facility] Advance Directives List of completed, amended, or rescinded Advance Directives on record at Department of Veterans Affairs facilities. An actual copy of the Directive is not included. Date Advance Directive Provider Source 11/16/2023 ADVANCE DIRECTIVE MARC METZGER [facility]
--- OUTSIDE RECORDS SUMMARY | 2024-10-22 17:06 | XMS_ITS | Encounter Summary ---
Author Name [facility] [place] Organization [place] Address [address] [place] [address] Care Team Providers Care Associate Store Manager Name Role Phone POLLY CLIFFORD Primary [...] Name Patient's Relationship to Policy Cherry [facility] (WNR) MEDICARE ADVANTAGE [facility] ([facility]) Jul 19, 2023 [id number] Rayne JACOBO SHELLEY PATIENT [facility] PRESCRIPT ION [id number] 1 Jul 19, 2017 [id number] [phone] Rayne JACOBO SHELLEY PATIENT MEDICARE ([facility]) MEDICARE () PART B Sep 16, 2005 PART B [id number] SUKI JACOBO SR PATIENT MEDICARE ([facility]) MEDICARE () PART A Sep 16, 2005 PART A [id number] Rayne JACOBO PATIENT MEDICARE (WNR) MEDICARE (M) PART A Sep 16, 2005 PART A SUKI JACOBO SR PATIENT MEDICARE (WNR) MEDICARE (M) PART B Sep 16, 2005 PART B [id number] [phone] SUKI JACOBO SR PATIENT MEDICARE (WNR) MEDICARE (M) PART A Sep 16, 2005 PART A [id number] SUKI JACOBO SR PATIENT OPTUM RX PRESCRIPT ION RX Jul 19, 2022 THPRX [id number] Rayne JACOBO PATIENT OPTUM RX PRESCRIPT ION RX Jul 19, 2022 THPRX [id number] [phone] Rayne JACOBO PATIENT OPTUM RX PRESCRIPT ION RX Jul 19, 2022 THPRX [id number] Rayne JACOBO PATIENT [facility] Jul 19, 2017 [id number] [phone] Rayne JACOBO PATIENT [facility] Jul 19, 2017 [facility] [id number] Rayne JACOBO PATIENT [facility] TON ORELL[facility] E Jul 19, 2017 [id number] [phone] Rayne JACOBO PATIENT [facility] CE ORGANIZ US FAMIL Y Jul 21, 2013 (WNR) [id number] Rayne JACOBO PATIENT [facility] ([facility] TRICA RE(WN R) Jul 19, 2017 (WNR) [id number] Rayne JACOBO PATIENT Selected Encounter This section includes the information on record at [place] for the Encounter. Date/Time Encounter Type Encounter Description Reason Provider Source Sep 19, 2024 01:30 PM THERAPEUTIC EXERCISES PHYSICAL THERAPY ICD-10-CM M25.562 Pain in left knee HAYDEE LAZAR [facility] Encounter Template Text not used by [place] Assessments - Encounter Diagnoses This section includes the primary and secondary diagnoses documented for the Encounter. Date/Time Primary/Secondary Diagnosis Diagnosis Name Provider Source Sep 20, 2024 07:43 AM PRIMARY Pain in left knee HAYDEE LAZAR [facility] Plan of Treatment: Future Appointments (+ 6 months) and Future Tests (+/- 45 days) The Plan of Treatment section includes future care activities for the patient from all [place] [facility]. This section includes future appointments and future orders which are active, pending or scheduled. Future Appointments This section includes appointments that were scheduled to occur 6 months from the date of the Encounter, up to a maximum of 20 appointments. The data comes from all [place] treatment facilities. Appointment Date/Time Appointment Type Appointme nt Facility Name Sep 25, 2024 02:00 PM [facility]UL[facility] Oct 02, 2024 01:00 PM [facility]UL[facility] Oct 02, 2024 02:00 PM AMBULAT[facility] 2024 09:00 AM AMBULATORY - [facility] Oct 23, 2024 01:00 PM AMBULATORY - REHAB MEDICIN E [place] [facility]L [facility]N [facility] Nov 01, 2024 08:30 AM AMBULAT[facility] Social History: Smoking Status (Most current) and Tobacco Use (All prior to encounter date) This section includes the most current, and the historical, smoking and tobacco- related health factors from the [place] facility where the Encounter took place. Current Smoking Status This section includes the most current smoking, or tobacco-related health factor, from the [place] facility where the Encounter took place. Date/Time Current Smoking Status Comment Ramon ity Oct 29, 2023 06:12 PM VA-TOBACCO FORMER USER [facility] Tobacco Use History This section includes a history of the smoking, or tobacco-related health factors, that were collected on or before the date of the Encounter. The data comes from the [place] facility where the Encounter took place. Date/Time Smoking Status/Tobacco Use Comment F acility Oct 29, 2023 06:12 PM AL-TOBACCO QUIT 15 YRS OR MORE [facility] Aug 23, 2019 09:07 AM VA-TOBACCO [facility] Aug 23, 2019 09:07 AM VA-TOBACCO QUIT 15 YRS OR MORE [facility] Jun 28, 2018 10:50 AM VA-TOBACCO [facility] Jun 28, 2018 10:50 AM VA-TOBACCO QUIT 15 YRS OR MORE [facility] Oct 14, 2017 09:20 AM QUIT TOBACCO USE > 7 YEARS AGO [facility] Oct 05, 2016 01:02 PM QUIT TOBACCO USE > 7 YEARS AGO [facility] Advance Directives: All historical and current Section Date Range: From patient's date of to the date document was created. This section includes ALL of a patient's completed or amended [place] Advance and Rescinded Directives. The entries below indicate that a directive exists for the patient, but an actual copy is not included with this document. The data comes from all [place] facilities. Date Advance Directives Provider Source Nov 16, 2023 ADVANCE DIRECTIVE MARC METZGER [facility] Encounter Notes: All associated encounter [...] has 2 daughter's that live locally in [place] []Full-time []Part-time []Seeking employment []Disabled [x]Retired Worked [employer] RED FLAGS: []Recent Trauma [x]Age (50+) []Hx of Cancer []Fever/chills/night sweats []Unexplained weight loss []Recent infection []Immunosuppression []Night pain []Saddle anesthesia []Bowel/bladder dysfunction [x]LE neurological deficit Active problems - Computerized Problem List is the source for the followin. Chronic obstructive pulmonary disease 2. Benign Prostatic Hypertrophy without Outflow Obstruction (SCT [id number]) 3. Lumbosacral radiculopathy 4. Multiple renal cysts [...] (L4) 5/5 5/5 Knee flexion Hamstrings (L4-S1) /5 5/5 Hip Internal Rotation : /5 4/5 Hip External Rotation : / 4/5 Ankle dorsiflexion Tibialis anterior (L4-L5) /5 5/5 Plantar flexion Gastrocnemius (S1) / 5/5 Inversion: 11/20 5/5 Eversion: 11/20 5/5 Hip abduction Abductors (L5) 4-/5 4/5 [...] (-) Posterior sag sign(PCL) Meniscal (+) L Janna Test (-) Apley's compression Test (-) Thessaly Test Muscle Length/Flexibility: Lam Test: Left: Normal Limited__mod___ Right: Normal Limited____mod____ Meg's Test: Left: Normal Limited__sig___ Right: Normal Limited___sig Hamstring (90-90): Left: Normal Limited__mod___ Right: Normal Limited___mod____ Stacia Test: Left: Normal__x___ Limited Right: Normal___x___ Limited Treatment administered: Patient education was provided for all aspects of care during this clinical encounter. THERAPEUTIC EXERCISE: MINUTES: Access Code: [email or web address] URL: [email or web address] [email or web address] Date: 09/19/2024 Prepared by: Haydee Lazar [...] b/l. Knee ligamentous testing was all negative. Janna test positive on L suggesting possible meniscal [...] as stated above. Suicide Screen: C-SSRS Screening Cassatt-Suicide Severity Rating Scale (C-SSRS Screener) 1. Over [...] PHYSICAL THERAPIST Signed: 09/20/2024 07:45 HAYDEE LAZAR [place] [facility]
--- OUTSIDE RECORDS SUMMARY | 2024-10-22 17:07 | XMS_ITS | Encounter Summary ---
Author Name [place] Address [address] [place] [id number] Care Team Providers Care Scarifier Operator Name Role Phone POLLY CLIFFORD Primary [...] Cherry's Name Patient's Relationship to Policy Cherry [facility] (WNR) MEDICARE ADVANTAGE [facility] ([facility]) Jul 19, 2023 [id number] Rayne JACOBO PATIENT CAR[facility] PRESCRIPT ION [id number] 1 Jul 19, 2017 [id number] Rayne JACOBO PATIENT MEDICARE (WN) MEDICARE (M) PART A Sep 16, 2005 PART A [id number] Rayne JACOBO PATIENT MEDICARE (WNR) MEDICARE () PART B Sep 16, 2005 PART B [id number] [id number] SUKI JACOBO SR PATIENT MEDICARE (WNR) MEDICARE (M) PART A Sep 16, 2005 PART A [id number] SUKI JACOBO SR PATIENT MEDICARE (WNR) MEDICARE (M) PART B Sep 16, 2005 PART B [id number] SUKI JACOBO SR PATIENT MEDICARE (WNR) MEDICARE (M) PART A Sep 16, 2005 PART A [id number] SUKI JACOBO SR PATIENT OPTUM RX PRESCRIPT ION RX Jul 19, 2022 THPRX [id number] Rayne JACOBO PATIENT OPTUM RX PRESCRIPT ION RX Jul 19, 2022 THPRX [id number] Rayne JACOBO PATIENT OPTUM RX PRESCRIPT ION RX Jul 19, 2022 THPRX [id number] Rayne JACOBO PATIENT [facility] Jul 19, 2017 [id number] [phone] AVELINASiddharthaRayne SCHUMACHER PATIENT [facility] Jul 19, 2017 [facility] [id number] Rayne JACOBO PATIENT [facility] TON ORELLANA E Jul 19, 2017 [id number] Rayne JACOBO PATIENT [facility] CE ORGANIZ US FAMIL Y Jul 21, 2013 (WNR) [id number] Rayne JACOBO PATIENT [facility] ([facility] TRICA RE(WN R) Jul 19, 2017 (WNR) [id number] Rayne JACOBO PATIENT Selected Encounter This section includes the information on record at [place] for the Encounter. Date/Time Encounter Type Encounter Description Reason Provider Source Sep 08, 2024 09:00 AM OFFICE O/P EST MOD 30 MIN PRIMARY CARE/MEDICINE ICD-10-CM M23.92 Unspecified internal derangement of left knee ZHANNA WAGNER E Encounter Template Text not used by [place] Assessments - Encounter Diagnoses This section includes the primary and secondary diagnoses documented for the Encounter. Date/Time Primary/Secondary Diagnosis Diagnosis Name Provider Source Sep 08, 2024 10:17 AM PRIMARY Unspecified internal derangement of left knee ZHANNA WAGNER [place] [facility] Plan of Treatment: Future Appointments (+ 6 months) and Future Tests (+/- 45 days) The Plan of Treatment section includes future care activities for the patient from all [place] [facility]. This section includes future appointments and future orders which are active, pending or scheduled. Future Appointments This section includes appointments that were scheduled to occur 6 months from the date of the Encounter, up to a maximum of 20 appointments. The data comes from all [place] treatment facilities. Appointment Date/Time Appointment Type Appointme nt Facility Name Sep 19, 2024 01:30 PM AMBULATORY - REHAB MEDICIN E [place] [facility] [place] [facility] Sep 25, 2024 02:00 PM AMBULATORY - REHAB MEDICIN E [facility] [place] [facility] Oct 02, 2024 01:00 PM AMBULATORY - MEDICINE [place] [place] [facility] Oct 02, 2024 02:00 PM AMBULATORY - REHAB MEDICIN E [facility] [place] [facility] 2024 09:00 AM AMBULATORY - REHAB MEDICIN E [place] [facility] [place] [facility] Oct 23, 2024 01:00 PM AMBULATORY - REHAB MEDICIN E [facility] [place] [facility] Nov 01, 2024 08:30 AM AMBULATORY - REHAB MEDICIN E [place] [facility] [facility] Vital Signs: All taken on the encounter date This section contains inpatient and outpatient Vital Signs collected on the date of the Encounter. Date/Time Temperature Pulse Blood Pressure Respiratory Rate SP02 Pain Height Weight Body Mass Index Source Sep 08, 2024 09:12 AM 98.1 61 129/55 18 96 [place] [facility] [place] [facility] Social History: Smoking Status (Most current) and Tobacco Use (All prior to encounter date) This section includes the most current, and the historical, smoking and tobacco- related health factors from the [place] facility where the Encounter took place. Current Smoking Status This section includes the most current smoking, or tobacco-related health factor, from the [place] facility where the Encounter took place. Date/Time Current Smoking Status Comment Ramon aguayoy Oct 29, 2023 06:12 PM MT-TOBACCO QUIT 15 YRS OR MORE [facility] Tobacco Use History This section includes a history of the smoking, or tobacco-related health factors, that were collected on or before the date of the Encounter. The data comes from the [place] facility where the Encounter took place. Date/Time Smoking Status/Tobacco Use Comment F accecile Oct 29, 2023 06:12 PM MT-TOBACCO QUIT 15 YRS OR MORE [facility] WSN [facility] Aug 23, 2019 09:07 AM VA-TOBACCO FORMER USER [place] CNT [facility] Aug 23, 2019 09:07 AM MT-TOBACCO QUIT 15 YRS OR MORE [facility] Jun 28, 2018 10:50 AM MT-TOBACCO [facility] Jun 28, 2018 10:50 AM MT-TOBACCO QUIT 15 YRS OR MORE [place] [facility] [place] [facility] Oct 14, 2017 09:20 AM QUIT TOBACCO USE > 7 YEARS AGO [facility] WSN [facility] Oct 05, 2016 01:02 PM QUIT TOBACCO USE > 7 YEARS AGO [facility] Advance Directives: All historical and current Section Date Range: From patient's date of to the date document was created. This section includes ALL of a patient's completed or amended [place] Advance and Rescinded Directives. The entries below indicate that a directive exists for the patient, but an actual copy is not included with this document. The data comes from all [place] facilities. Date Advance Directives Provider Source Nov 16, 2023 ADVANCE DIRECTIVE MARC METZGER [facility] Encounter Notes: All associated encounter notes This section contains the clinical notes associated to the Encounter. Date/Time Encounter Note(s) Provider Source Sep 12, 2024 08:35 AM ADDENDUM: LOCAL TITLE: Addendum STANDARD TITLE: ADDENDUM DATE OF NOTE: SEP 12, 2024@08:35:15 ENTRY DATE: SEP 12, 2024@08:35:16 AUTHOR: LEONARDO BOWLES EXP COSIGNER: URGENCY: STATUS: COMPLETED Followed up with and daughter Linedn via tele. They state there has been improvement with the brace and tylenol but still recovering, not back to baseline. They haven't been able to take tylenol three times per day because the vet goes to bed at 5:30 pm. They are requesting PT Consult in [place]. Daughter Linden can drive to the sessions. Forward to PCP, please enter [facility] PT consult as requested. Thank you! /es/ LEONARDO BOWLES Registered Nurse Signed: 09/12/2024 08:40 Receipt Acknowledged By: 09/12/2024 09:30 /alba/ POLLY CLIFFORD D.O. PHYSICIAN === --- Original Document --- 09/08/24 FEMI NOTE: SICK CALL VISIT HPI: 83-year-old male with below noted past medical history presents with daughter regarding left knee pain. [place] is requesting a knee support. There is [...] 0.4MG BY MOUTH ONCE DAILY ACTIVE Non-VA ELSHMYWVWDKQ71.5/VILANTER WL69TMD 30D INH 1 ACTIVE INHALATION BY MOUTH [...] or gross functional deficit at this time. [place] was placed in a hinged knee support [...] treatment planning, education and counseling of the patient/family/hospice care transitions coordinator, placing orders, communicating with other health care providers and documentation in the electronic health record. [place] able to verbalize understanding of plan of care and agrees. >> MEDICATIONS Reviewed and reconciled with /es/ ZHANNA SARGENT, MS,PA-C PHYSICIAN WINK CUTTER OPERATOR Signed: 09/08/2024 10:17 Receipt Acknowledged By: 09/08/2024 10:54 /alba/ POLLY CLIFFORD D.O. PHYSICIAN 09/12/2024 08:51 /alba/ LEONARDO BOWLES Registered Nurse LEONARDO BOWLES [facility] Sep 08, 2024 09:50 AM PHYSICIAN WINK CUTTER OPERATOR NOTE: LOCAL TITLE: PA NOTE STANDARD TITLE: PHYSICIAN WINK CUTTER OPERATOR NOTE DATE OF NOTE: SEP 08, 2024@09:50 ENTRY DATE: SEP 08, 2024@09:50:54 AUTHOR: ZHANNA WAGNER EXP COSIGNER: URGENCY: STATUS: COMPLETED FEMI NOTE Has ADDENDA SICK CALL VISIT HPI: 83-year-old male with below noted past medical history presents with daughter regarding left knee pain. [place] is requesting a knee support. There is [...] 03/23/2019 [place] C[place] Atrial fibrillation I48.20 11/16/2023 DARRINPOLLY Seizure disorder G40.109 11/16/2023 DARRIN,POLLY Cerebral atrophy R69. 10/05/2016 [place] Cognitive [...] 0.4MG BY MOUTH ONCE DAILY ACTIVE Non-VA IUVBDKHWQVOD21.5/VILANTER SP70RVS 30D INH 1 ACTIVE INHALATION BY MOUTH [...] treatment planning, education and counseling of the patient/family/hospice care transitions coordinator, placing orders, communicating with other health care providers and documentation in the electronic health record. able to verbalize understanding of plan of care and agrees. >> MEDICATIONS Reviewed and reconciled with /alba/ ZHANNA SARGENT MS,PA-C PHYSICIAN WINK CUTTER OPERATOR Signed: 09/08/2024 10:17 Receipt Acknowledged By: 09/08/2024 [...] pm. They are requesting PT Consult in [place]. Daughter Linden can drive to the sessions. Forward to PCP, please enter [facility] PT consult as requested. Thank you! /alba/ LEONARDO BOWLES Registered Nurse Signed: 09/12/2024 08:40 Receipt Acknowledged By: * AWAITING SIGNATURE * POLLY CLIFFORD KEVYN JONAH [facility]
[2024-10-22 17:59] LABS: Troponin-I High Sensitivity 3.4 ng/L (<3.5-35.0)
[2024-10-22 18:26] VITALS: BP 121/66; PULSE 58; RESP 18; TEMP 36.9
[2024-10-22 18:35] VITALS: BP 121/66; PULSE 58; RESP 18; TEMP 36.9; O2SAT 98
== END 2024-10-22 18:35 | disposition home or self-care (01) ==
PROVIDERS: Physician Assistant Medical; Emergency Provider Internal Medicine; PCP Family Medicine
DX: R07.89 Other chest pain (principal); I10 Essential (primary) hypertension; E78.5 Hyperlipidemia, unspecified; I48.0 Paroxysmal atrial fibrillation; J44.9 Chronic obstructive pulmonary disease, unspecified; R06.02 Shortness of breath; Z03.818 Encounter for observation for suspected exposure to other biological agents ruled out; Z79.02 Long term (current) use of antithrombotics/antiplatelets; Z79.899 Other long term (current) drug therapy; Z79.01 Long term (current) use of anticoagulants
CPT/HCPCS: 0241U; 36415; 71046; 80053; 83735; 84484; 85025; 85610; 93005; 99283; 99285

== ENCOUNTER → 2024-10-22 15:51 | Outpatient (BNV) | payer OTHER, SELFPAY | PROVIDERS: Emergency Provider Internal Medicine; PCP Family Medicine; Visit Provider Internal Medicine Cardiovascular Disease | DX: I44.0 Atrioventricular block, first degree (principal); I49.1 Atrial premature depolarization | CPT/HCPCS: 93010 ==

== ENCOUNTER → 2024-10-22 15:59 | Outpatient (BNV) | payer OTHER, SELFPAY | PROVIDERS: Visit Provider Radiology Diagnostic Radiology | DX: R07.9 Chest pain, unspecified (principal) | CPT/HCPCS: 71046 ==

== ENCOUNTER 2024-10-29 08:28 | Emergency (ER) | payer OTHER, SELFPAY ==
[2024-10-29 08:45] VITALS: BP 139/69; PULSE 63; RESP 18; TEMP 36.4; O2SAT 94; BMI 31.4
--- NOTE | 2024-10-29 09:42 | ED_ITS ---
HPI - General Adult General Chief complaint: Abdominal Pain Stated complaint: constipation Time Seen by Provider: 10/29/24 09:42 History of Present Illness ED Provider: Alexandra GALLEGOS narrative: The patient is an 84-year-old male who has a history of problems with co nstipation. He was here a little over a month ago for a similar complaint. At that time he was relieved with a Fleet enema. He says that he has been using [id number] stool softeners and he still feels like he is having problems with constipation. Symptoms have been worse over the last 2 weeks. His last movement was 4 days ago. He feels like something is stuck in his rectum. He has had no fever, sweats, chills. No nausea or vomiting. No abdominal pain. He says that this feels very much like the episode that he had when he was here at the end of August. Related Data Home Medications ?Medication ?Instructions ?Recorded ?Confirmed diclofenac sodium 1 % topical gel 1 ea topical QID 06/11/20 04/21/24 albuterol sulfate 90 mcg/actuation 2 puff inhalation Q4H PRN wheezing 12/12/20 04/21/24 aerosol inhaler ascorbic acid (vitamin C) 500 mg mg PO 05/22/21 04/21/24 capsule nitric oxide gas 100 PPM for ea inhalation 05/22/21 04/21/24 inhalation atorvastatin 20 mg tablet 20 mg PO DAILY 11/25/21 04/21/24 tamsulosin 0.4 mg capsule 0.4 mg PO BID 11/25/21 04/21/24 carboxymethylcellulose sodium 0.5 drp ophthalmic (eye) 03/12/22 04/21/24 % eye drops olopatadine 0.1 % eye drops 1 drp ophthalmic (eye) ONCE 03/12/22 04/21/24 citalopram 40 mg tablet 40 mg PO DAILY 04/19/23 04/21/24 levetiracetam 1,000 mg tablet 750 mg PO BID 04/19/23 04/21/24 furosemide 20 mg tablet 20 mg PO DAILY 12/02/23 04/21/24 ketotifen fumarate 0.025 % (0.035 drp ophthalmic (eye) 12/02/23 04/21/24 %) eye drops (Eye Itch Relief) nitroglycerin 0.3 mg sublingual mg sublingual 12/02/23 04/21/24 tablet Previous Rx's ?Medication ?Instructions ?Recorded lidocaine 5 % topical cream 1 appl topical BID PRN pain #15 05/12/22 grams rivaroxaban 20 mg tablet (Xarelto) 20 mg PO QPM #90 tabs 06/02/24 polyethylene glycol 3350 17 17 g PO DAILY #119 grams 07/07/24 gram/dose oral powder (Miralax) diltiazem HCl 180 mg 180 mg PO DAILY #90 caps 10/23/24 capsule,extended release 24 hr Allergies Allergy/AdvReac Type Severity Reaction Status Date / Time penicillin V Allergy Severe Hives Verified 10/29/24 08:47 piroxicam [PIROXICAM] Allergy Intermediate HIVES/SOB Verified 10/29/24 08:47 rofecoxib [From VIOXX] Allergy Intermediate HIVES/SOB Verified 10/29/24 08:47 Penicillins [PENICILLINS] Allergy Unknown UNKNOWN Verified 10/29/24 08:47 phenacetin [PHENACETIN] Allergy Unknown UNK Verified 10/29/24 08:47 From VICODIN Allergy Intermediate HIVES/SOB Uncoded 08/02/24 10:07 Review of Systems Review of Systems: Yes all other systems are reviewed and are negative [facility] Past Medical History Medical History Chronic anticoagulation CAD (coronary artery disease) Seizure disorder Paroxysmal atrial fibrillation HTN (hypertension) Surgical History History of left knee surgery History of right hip replacement History of ear surgery S/P skin biopsy Social History Social History Alcohol intake: current Alcohol intake frequency: holidays/special occasions only Alcohol type: beer Patient Tobacco Use Status: Former Tobacco user Years Smoked: 30 +/- Smoked in Last 30 Days: No Use of substances other than those prescribed or required for medical reasons: No Advance Directives: Yes Advance Directives Information Provided: Yes Advance Directives on File: No Physical Exam ED Vital Signs: Vital Signs - 24 hr 10/29/24 08:45 10/29/24 11:09 Temperature 97.6 F 97.6 F Pulse Rate 63 55 Respiratory Rate 18 18 Blood Pressure 139/69 130/61 Pulse Oximetry 94 94 Oxygen Delivery Method Room Air Room Air BMI result Body Mass Index 31.4 Const Other: The patient is awake, alert, pleasant, cooperative. He is an 84-year-old male who looks somewhat chronically ill but does not appear acutely ill at all. Orientation/consciousness: patient oriented x3 HENMT Other: Face is symmetrical. Mucous membranes moist. Eyes General: appearance normal, both eyes and all related structures Neck Neck: Yes full ROM and Yes no JVD Resp Effort & Inspection: normal respiratory effort Auscultation: clear to auscultation bilaterally Cardio Rate: regular rate Rhythm: regular rhythm Heart sounds: S1 normal heart sound present and S2 normal heart sound present GI Other: The abdomen was soft and nontender. Rectal exam revealed stool in the rectum without obvious impaction. Skin General skin exam: no rashes or lesions noted Neuro General: patient oriented x3, gait normal, moves all extremities, no focal motor deficits and CN's II-XI intact bilaterally Extrem General: Yes no pedal edema Medications Administered Discontinued Medications Generic Name Dose Route Start Last Admin Trade Name Freq PRN Reason Stop Dose Admin Sodium Biphosphate/Sodium Phosphate 133 ml 10/29/24 09:46 10/29/24 09:59 Sodium Phosphate,[place]-Dibasic 133 Ml Enema IN 10/29/24 09:47 133 ml ONCE ONE Administration Medical Decision Making Medical Decision Making [facility] Narrative: The patient is an 84-year-old male who presents with what seems to be constipation. He has had this problem before. Apparently he is supposed to be on MiraLax daily. However he lives alone and manages his medications on his own but has become more and more forgetful so the family is not sure of he has actually been taking the MiraLax daily. The patient was given a Fleet enema and had good stool output and felt much better. He seemed well enough for discharge. The patient will be discharged with is daughter's plan to make sure he takes MiraLax daily. He has a Gastroenterology appointment next week. Discharge Plan Discharge Clinical Impression: Acute constipation Patient Disposition: Home, Self-Care Additional Instructions: Please make sure that you take MiraLax every day. Keep your appointment with the commission specialist next week. Also follow up with your regular doctor. Return to the emergency room if worse. Prescriptions: No Action Xarelto 20 mg tablet 20 mg PO QPM Qty: 90 3RF diltiazem HCl 180 mg capsule,extended release 24hr 180 mg PO DAILY Qty: 90 3RF lidocaine 5 % cream 1 appl topical BID PRN (Reason: pain) Qty: 15 0RF polyethylene glycol 3350 [Miralax] 17 gram/dose powder 17 g PO DAILY Qty: 119 0RF diclofenac sodium 1 % gel 1 ea topical QID albuterol sulfate 90 mcg/actuation HFA aerosol inhaler 2 puff inhalation Q4H PRN (Reason: wheezing) ascorbic acid (vitamin C) 500 mg capsule PO nitric oxide gas 100 PPM gas inhalation tamsulosin 0.4 mg capsule 0.4 mg PO BID atorvastatin 20 mg tablet 20 mg PO DAILY olopatadine 0.1 % drops 1 drp ophthalmic (eye) ONCE carboxymethylcellulose sodium 0.5 % drops ophthalmic (eye) levetiracetam 1,000 mg tablet 750 mg PO BID furosemide 20 mg tablet 20 mg PO DAILY ketotifen fumarate [Eye Itch Relief] 0.025 % (0.035 %) drops ophthalmic (eye) nitroglycerin 0.3 mg tablet, sublingual sublingual citalopram 40 mg tablet 40 mg PO DAILY Referrals: Grabiel Kasper MD [Physician] - (Recurrent constipation) Interventions: ED Discharge Assessment Last Done: 10/29/24 11:09 Discharge Date/Time: 10/29/24 11:16 Print Language: Slovenian
--- OUTSIDE RECORDS SUMMARY | 2024-10-29 09:45 | XMS_ITS | Encounter Summary ---
Author Name [facility] [place] Organization [place] Address [address] [place] [address] Care Team Providers Care Specification Writer Name Role Phone POLLY CLIFFORD Primary Care [...] Cherry's Name Patient's Relationship to Policy Cherry [facility] (WNR) MEDICARE ADVANTAGE [facility] ([facility]) Jul 19, 2023 [id number] Rayne JACOBO PATIENT [facility] PRESCRIPT ION [id number] 1 Jul 19, 2017 [id number] Rayne JACOBO PATIENT MEDICARE ([facility]) MEDICARE () PART A Sep 16, 2005 PART A [id number] YULIRayne GARCIA PATIENT MEDICARE ([facility]) MEDICARE () PART B Sep 16, 2005 PART B [id number] SUKI JACOBO SR PATIENT MEDICARE (WNR) MEDICARE (M) PART A Sep 16, 2005 PART A SUKI JACOBO SR PATIENT MEDICARE (WNR) MEDICARE (M) PART B Sep 16, 2005 PART B [id number] [phone] SUKI JACOBO SR PATIENT MEDICARE (WNR) MEDICARE (M) PART A Sep 16, 2005 PART A [id number] [phone] SUKI JACOBO SR PATIENT [facility] RX PRESCRIPT ION RX Jul 19, 2022 THPRX [id number] Rayne JACOBO PATIENT [employer] RX PRESCRIPT ION RX Jul 19, 2022 THPRX [id number] Rayne JACOBO PATIENT [employer] RX PRESCRIPT ION RX Jul 19, 2022 THPRX [id number] Rayne JACOBO PATIENT [facility] Jul 19, 2017 [id number] Rayne JACOBO PATIENT [facility] Jul 19, 2017 [facility] [id number] Rayne JACOBO PATIENT [facility] TON ORELLANA E Jul 19, 2017 [id number] [phone] Rayne JACOBO PATIENT [facility] CE ORGANIZ US FAMIL Y Jul 21, 2013 (WNR) [id number] [phone] Rayne JACOBO PATIENT [facility] ([facility]) TRICA RE(WN R) Jul 19, 2017 (WNR) [id number] Rayne JACOBO PATIENT Selected Encounter This section includes the information on record at [place] for the Encounter. Date/Time Encounter Type Encounter Description Reason Provider Source Sep 19, 2024 01:30 PM THERAPEUTIC EXERCISES PHYSICAL THERAPY ICD-10-CM M25.562 Pain in left knee HAYDEE LAZAR [facility] Encounter Template Text not used by [place] Assessments - Encounter Diagnoses This section includes the primary and secondary diagnoses documented for the Encounter. Date/Time Primary/Secondary Diagnosis Diagnosis Name Provider Source Sep 20, 2024 07:43 AM PRIMARY Pain in left knee HAYDEE LAZAR [facility] Plan of Treatment: Future Appointments (+ 6 months) and Future Tests (+/- 45 days) The Plan of Treatment section includes future care activities for the patient from all [place] [facility]. This section includes future appointments and future [...] 02:00 PM [facility] Oct 02, 2024 01:00 PM [facility]ULATORY - [facility] Oct 02, 2024 02:00 PM [facility] 2024 09:00 AM [facility] Nov 01, 2024 08:30 AM [facility] Social History: Smoking Status (Most current) and [...] 29, 2023 06:12 PM VA-TOBACCO FORMER USER [facility] Tobacco Use History This section includes a history of the smoking, or tobacco-related health factors, that were collected on or before the date of the Encounter. The data comes from the [place] facility where the Encounter took place. Date/Time Smoking Status/Tobacco Use Comment F acility Oct 29, 2023 06:12 PM [place]-TOBACCO QUIT 15 YRS OR MORE [place] [facility] [place] [facility] Aug 23, 2019 09:07 AM VA-TOBACCO FORMER USER [place] [facility] [place] [facility] Aug 23, 2019 09:07 AM VA-TOBACCO QUIT 15 YRS OR MORE [place] [facility] [place] [facility] Jun 28, 2018 10:50 AM VA-TOBACCO FORMER USER [place] [facility] [place] [facility] Jun 28, 2018 10:50 AM VA-TOBACCO QUIT 15 YRS OR MORE [place] [facility] [place] [facility] Oct 14, 2017 09:20 AM QUIT TOBACCO USE > 7 YEARS AGO [place] [facility] [place] [facility] Oct 05, 2016 01:02 PM QUIT TOBACCO USE > 7 YE[facility] AGO [facility] Advance Directives: All historical and current Section [...] 16, 2023 ADVANCE DIRECTIVE MARC METZGER [facility] Encounter Notes: All associated encounter notes This [...] has 2 daughter's that live locally in [place] []Full-time []Part-time []Seeking employment []Disabled [x]Retired Worked [employer] on [place] RED FLAGS: []Recent Trauma [x]Age (50+) []Hx of Cancer []Fever/chills/night sweats []Unexplained weight loss []Recent infection []Immunosuppression []Night pain []Saddle anesthesia []Bowel/bladder dysfunction [x]LE neurological deficit Active problems - Computerized Problem List is the source for the followin. Chronic obstructive pulmonary disease 2. Benign Prostatic Hypertrophy without Outflow Obstruction (SCT [id number]) 3. Lumbosacral radiculopathy 4. Multiple renal cysts [...] / 4/5 Ankle dorsiflexion Tibialis anterior (L4-L5) 5/5 5/5 Plantar flexion Gastrocnemius (S1) 11/20 5/5 Inversion: 11/20 5/5 Eversion: / 5/5 Hip abduction Abductors (L5) 4-/5 4/5 [...] clinical encounter. THERAPEUTIC EXERCISE: MINUTES: Access Code: [email or web address] URL: [email or web address] Date: 09/19/2024 Prepared by: Haydee Lazar [...] as stated above. Suicide Screen: C-SSRS Screening [place]-Suicide Severity Rating Scale (C-SSRS Screener) 1. Over [...] PHYSICAL THERAPIST Signed: 09/20/2024 07:45 HAYDEE LAZAR [place] [facility]
--- OUTSIDE RECORDS SUMMARY | 2024-10-29 09:45 | XMS_ITS | Encounter Summary ---
Author Name [place] Address [address] [place] [address] Care Team Providers Care Tax Accounting Manager Name Role Phone POLLY CLIFFORD Primary [...] Name Patient's Relationship to Policy Cherry [facility] (WNR) MEDICARE ADVANTAGE [facility] ([facility]) Jul 19, 2023 [id number] Rayne JACOBO PATIENT [employer] PRESCRIPT ION [id number] 1 Jul 19, 2017 [id number] Rayne JACOBO PATIENT MEDICARE ([facility]) MEDICARE () PART A Sep 16, 2005 PART A [id number] YULIRayne GARCIA PATIENT MEDICARE ([facility]) MEDICARE () PART B Sep 16, 2005 PART B [id number] SUKI JACOBO SR PATIENT MEDICARE (WNR) MEDICARE (M) PART A Sep 16, 2005 PART A [id number] SUKI JACOBO SR PATIENT MEDICARE (WNR) MEDICARE (M) PART B Sep 16, 2005 PART B [id number] [phone] SUKI JACOBO SR PATIENT MEDICARE (WNR) MEDICARE (M) PART A Sep 16, 2005 PART A [id number] SUKI JACOBO SR PATIENT [facility] RX PRESCRIPT ION RX Jul 19, 2022 THPRX [id number] Rayne JACOBO PATIENT [facility] RX PRESCRIPT ION RX Jul 19, 2022 THPRX [id number] Rayne JACOBO PATIENT [employer] RX PRESCRIPT ION RX Jul 19, 2022 THPRX [id number] Rayne JACOBO PATIENT [facility] Jul 19, 2017 [id number] Rayne JACOBO PATIENT [facility] Jul 19, 2017 [facility] [id number] Rayne JACOBO PATIENT [facility] T[facility] E Jul 19, 2017 [id number] [phone] Rayne JACOBO PATIENT [facility], [facility]GAN[facility] FAMIL Y Jul 21, 2013 (WNR) [id number] Rayne JACOBO PATIENT [facility] (R) TRICA RE(WN R) Jul 19, 2017 (WNR) [id number] Rayne JACOBO PATIENT Selected Encounter This [...] PRIMARY Pain in left knee GENE LI [place] [facility] [place] [facility] 2024 09:44 AM SECONDARY Low back pain, unspecified GENE LI [place] [facility] [place] [facility] Plan of Treatment: Future Appointments (+ 6 months) and Future Tests (+/- 45 days) The Plan of Treatment section includes future care activities for the patient from all [place] [facility]. This section includes future appointments and future orders which are active, pending or scheduled. Future Appointments This section includes appointments that were scheduled to occur 6 months from the date of the Encounter, up to a maximum of 20 appointments. The data comes from all [place] treatment facilities. Appointment Date/Time Appointment Type Appointme nt Facility Name Nov 01, 2024 08:30 AM [facility] [place] [facility] Social History: Smoking Status (Most [...] 29, 2023 06:12 PM VA-TOBACCO [facility] Tobacco Use History This section includes a history of the smoking, or tobacco-related health factors, that were collected on or before the date of the Encounter. The data comes from the [place] facility where the Encounter took place. Date/Time Smoking Status/Tobacco Use Comment F acility Oct 29, 2023 06:12 PM VA-TOBACCO QUIT 15 YRS OR MORE [place] [facility] [place] [facility] Aug 23, 2019 09:07 AM VA-TOBACCO FORMER USER [place] [facility] [place] [facility] Aug 23, 2019 09:07 AM VA-TOBACCO QUIT 15 YRS OR MORE [place] [facility] [place] [facility] Jun 28, 2018 10:50 AM VA-TOBACCO [facility] Jun 28, 2018 10:50 AM [place]-TOBACCO QUIT 15 YRS OR MORE [facility] Oct 14, 2017 09:20 AM QUIT TOBACCO USE > 7 YEARS AGO [facility] Oct 05, 2016 01:02 PM QUIT TOBACCO USE > 7 YEARS AGO [facility] Advance Directives: All historical and current [...] Nov 16, 2023 ADVANCE DIRECTIVE MARC METZGER [facility] Encounter Notes: All associated encounter notes This section contains the clinical notes associated to the Encounter. Date/Time Encounter Note(s) Provider Source 2024 09:38 AM PHYSICAL THERAPY NOTE: LOCAL TITLE: PHYSICAL THERAPY STANDARD TITLE: PHYSICAL THERAPY NOTE DATE OF NOTE: 2024@09:38 ENTRY DATE: 2024@09:38:12 AUTHOR: XOCHILT LI COSIGNER: URGENCY: STATUS: COMPLETED Initial Evaluation date: [...] possible Gerofit candidate /es/ AVEL PHAN LICENSE CAN COVERER Signed: 2024 09:45 XOCHILT LI [facility] [place] [facility]
--- OUTSIDE RECORDS SUMMARY | 2024-10-29 09:46 | XMS_ITS ---
Author Organization Patient Business Ser [facility] Address [address] [place] [address] Care Team Providers Care Game Developer Name Role Phone Grabiel Kasper MD Primary Care Pr ovider Active Problems Problem Noted Date Diagnosed Date Primary osteoarthritis of left knee 10/06/2024 Malignant melanoma (CMS/HCC V24, CMS/HCC V28) Overview (10/06/2024): Left inner ear; Following with [...] 08/20/2022 Stage 1 mild COPD by GOLD cl assification ([facility] V24, [facility] V28) 04/28/2022 Overview (04/13/2024): Last Assessment & Plan: Rm [...] meantime he should let him know his customer advisor specialist regarding the left- sided chest pain. I [...] side of the heart. Cerebrovascular accident (CVA) ([facility] V24, [facility] V28) 09/17/2021 Benign prostatic hyperplasia with urinary freque [...] 11/18 Spinal stenosis, lumbar 02/26/2017 Atrial fibrillation ([facility] V24, [facility] V28) 0 11/20/2015 Assessment & Plan (10/06/2024 11:49 AM EDT): Continue cardiology follow-up. Continue Cardizem 180 mg daily and Xarelto 20 mg daily Orders: CBC and differential; Future Seizure disorder ([facility] V24, [facility] V28) 10/2015 Assessment & Plan (10/06/2024 11:49 AM EDT): Continue neurology follow-up. Continue Keppra 750 mg twice daily DDD (degenerative disc disease), lumbar 10/30/19 Gallstone 03/09/2013 Eczematous dermatitis 10/14/2012 Protein S deficiency ([facility] V24) 07/05/2009 Assessment & Plan (10/06/2024 11:49 AM EDT): Continue Xarelto 20 mg daily Essential hypertension, benign 01/11/2006 Assessment & Plan (10/06/2024 11:49 AM EDT): Blood pressure is stable. Continue Cardizem 180 mg daily Orders: Comprehensive metabolic panel; Future Transient cerebral ischemia 11/16/2005 Overview (04/13/2024): Carotid US Mri normal 1997;p <50% 2011 Obesity (BMI 30.0-34.9) 11/16/2005 Hepatitis C, chronic ([facility] V24, [facility] V28) 11/16/2005 Overview (04/13/2024): Genotype 1A. Hearing loss 11/16/2005 Current Oncology Plans No current plan information found. Past Plans No past plan information found. Radiation Treatments * No radiation treatments are documented for this patient in [facility]. Treatments may have been administered in another system. Lifetime Dose Tracking * Chemical Lifetime Dose Automatic Entry Manual Entr y CTDIvol 16.48 mGy 16.48 mGy 0 mGy Resolved Problems Problem Noted Date Diagnosed Date Resolved Date Diverticulitis of colon without hemorrhage 11/16/2005 10/06/2024
--- OUTSIDE RECORDS SUMMARY | 2024-10-29 09:46 | XMS_ITS | Encounter Summary ---
Author Organization [facility] Address [address] [place] [address] Care Team Providers Care Vegetable Cook Name Role Phone Grabiel Kasper MD Primary Care Pr ovider Encounter Details Date Type Department Care Team (Late Contact Info) Description 05/05/2024 9:00 AM EDT Hospital Encounter TH HISTORIC ENCOUNTERS EASTERN CONVERSION ONLY Grabiel Kasper MD [address] [place] [phone] Social History Tobacco Use Types Packs/Day Years [...] 10/31/2024 11:00 AM EDT Evaluation Outpatient Rehabilitation [address] [phone] Lonnie Mackey, PT [address] [place] [address] 10/31/2024 2:00 PM EDT Office Visit Gastroenterology - [place] 175 [facility] 175 [facility] [address] [place] [phone] Isabel Schmitt NP 175 [facility] [address] [place] [address] 11/20/2024 9:30 AM EDT Office Visit Pulmonolgy - [place] 175 [facility] [address] [place] [phone] Liza Luis MD 175 [facility] [address] [place] [address] 12/21/2024 8:30 AM EDT Consult Orthopedic Surgery - [place] [address] 175 [facility] [address] [place] [phone] Dank Rose, DPM 175 [facility] [address] [place] [address] 02/05/2025 9:00 AM EDT Office Visit Adult Medicine [facility] [address] [place] [phone] Grabiel Kasper MD [address] [place] [phone] documented as of this encounter Visit Diagnoses Not on filedocumented in this encounter Care Teams Vegetable Cook Relationship Specialty Start Date End Date Grabiel Kasper MD [address] [facility] [place] PCP - General Internal Medicine 02/02/22 documented as of this encounter
--- OUTSIDE RECORDS SUMMARY | 2024-10-29 09:46 | XMS_ITS | Encounter Summary ---
Author Name [place] Address [address] [place] [address] Care Team Providers Care Government Teacher Name Role Phone POLLY CLIFFORD Primary [...] Cherry's Name Patient's Relationship to Policy Cherry [facility] (WNR) MEDICARE ADVANTAGE [facility] Jul 19, 2023 [id number] Rayne JACOBO PATIENT [employer] PRESCRIPT ION [id number] 1 Jul 19, 2017 [id number] [phone] Rayne JACOBO PATIENT MEDICARE (WN) MEDICARE (M) PART A Sep 16, 2005 PART A [id number] Rayne JACOBO PATIENT MEDICARE (WNR) MEDICARE (M) PART B Sep 16, 2005 PART B [id number] [phone] SUKI JACOBO SR PATIENT MEDICARE (WNR) MEDICARE (M) PART A Sep 16, 2005 PART A SUKI JACOBO SR PATIENT MEDICARE (WNR) MEDICARE (M) PART B Sep 16, 2005 PART B [id number] [phone] SUKI JACOBO SR PATIENT MEDICARE (WNR) MEDICARE (M) PART A Sep 16, 2005 PART A [id number] SUKI JACOBO SR PATIENT [facility] RX PRESCRIPT ION RX Jul 19, 2022 THPRX [id number] Rayne JACOBO PATIENT [employer] RX PRESCRIPT ION RX Jul 19, 2022 THPRX [id number] Rayne JACOBO PATIENT [facility] RX PRESCRIPT ION RX Jul 19, 2022 THPRX [id number] [phone] Rayne JACOBO PATIENT [facility] Jul 19, 2017 [id number] [phone] YULIZAHRAJOSE MIGUELRayne PATIENT [facility] Jul 19, 2017 [facility] [id number] [phone] Rayne JACOBO PATIENT [facility] TON ORELLANA E Jul 19, 2017 [id number] YULIRayne GARCIA PATIENT [facility] CE ORGANIZ US FAMIL Y Jul 21, 2013 (WNR) [id number] [phone] Rayne JACOBO PATIENT [facility] TR[facility] RE(WN R) Jul 19, 2017 (WNR) [id number] [phone] Rayne JACOBO PATIENT Selected Encounter This section includes the information on record at [place] for the Encounter. Date/Time Encounter Type Encounter Description Reason Provider Source Nov 16, 2023 11:00 AM OFFICE O/P NEW HI 60 MIN PRIMARY CARE/MEDICINE ICD-10-CM J44.9 Chronic obstructive pulmonary disease, unspecified FURCOLO,POLLY IHE Encounter Template Text not used by [place] Assessments - Encounter Diagnoses This section includes the primary and secondary diagnoses documented for the Encounter. Date/Time Primary/Secondary Diagnosis Diagnosis Name Provider Source Nov 16, 2023 11:56 AM PRIMARY Chronic obstructive pulmonary disease, unspecified FURCOLO,POLLY [facility] [place] Nov 16, 2023 11:56 AM SECONDARY Benign prostatic hyperplasia without lower urinry tract symp FURCOLO,POLLY [facility] Nov 16, 2023 11:56 AM SECONDARY Chronic atrial fibrillation, unspecified FURCOLO,POLLY [facility] Nov 16, 2023 11:56 AM SECONDARY Local-rel symptc epi w simp prt seiz,not ntrct, w/o stat epi FURCOLO,POLLY [facility] Nov 16, 2023 11:56 AM SECONDARY Mild cognitive impairment of uncertain or unknown etiology FURCOLO,POLLY [facility] Plan of Treatment: Future Appointments (+ 6 months) and Future Tests (+/- 45 days) The Plan of Treatment section includes future care activities for the patient from all [place] [facility]. This section includes future appointments and future orders which are active, pending or scheduled. Future Appointments This section includes appointments that were scheduled to occur 6 months from the date of the Encounter, up to a maximum of 20 appointments. The data comes from all [place] treatment facilities. Appointment Date/Time Appointment Type Appointme nt Facility Name Dec 27, 2023 01:00 PM AMBULATORY - REHAB MEDICIN E [facility] Dec 31, 2023 10:30 AM AMBULATORY - MEDICINE [place] [facility] [place] Feb 10, 2024 08:30 AM AMBULATORY - MEDICINE [place] [facility] Vital Signs: All taken on the encounter date This section contains inpatient and outpatient Vital Signs collected on the date of the Encounter. Date/Time Temperature Pulse Blood Pressure Respiratory Rate SP02 Pain Height Weight Body Mass Index Source Nov 16, 2023 11:00 AM 98.5 68 127/74 16 94 0 69 218 32 [facility] Social History: Smoking Status (Most current) and Tobacco Use (All prior to encounter date) This section includes the most current, and the historical, smoking and tobacco- related health factors from the [place] facility where the Encounter took place. Current Smoking Status This section includes the most current smoking, or tobacco-related health factor, from the [place] facility where the Encounter took place. Date/Time Current Smoking Status Comment Facil ity Oct 29, 2023 06:12 PM VA-TOBACCO FORMER USER [facility] Tobacco Use History This section includes a history of the smoking, or tobacco-related health factors, that were collected on or before the date of the Encounter. The data comes from the [place] facility where the Encounter took place. Date/Time Smoking Status/Tobacco Use Comment F acility Oct 29, 2023 06:12 PM [facility]BACCO QUIT [facility] YRS OR [facility] Aug 23, 2019 09:07 AM VA-TOBACCO [facility] Aug 23, 2019 09:07 AM VA-TOBACCO QUIT 15 YRS OR MORE [facility] Jun 28, 2018 10:50 AM VA-TOBACCO FOR[facility] Jun 28, 2018 10:50 AM [place]-TOBACCO QUIT 15 YRS OR MORE [facility] Oct 14, 2017 09:20 AM QUIT TOBACCO USE > 7 YEARS AGO [facility] Oct 05, 2016 01:02 PM QUIT TOBACCO USE > 7 YEARS AGO [facility] Advance Directives: All historical and current Section Date Range: From patient's date of to the date document was created. This section includes ALL of a patient's completed or amended [place] Advance and Rescinded Directives. The entries below indicate that a directive exists for the patient, but an actual copy is not included with this document. The data comes from all [place] facilities. Date Advance Directives Provider Source Nov 16, 2023 ADVANCE DIRECTIVE MARC METZGER [facility] Encounter Notes: All associated encounter [...] Practical Nurse Signed: 11/16/2023 12:13 MARC METZGER [facility] Nov 16, 2023 12:11 PM ADVANCE DIRECTIVE: LOCAL TITLE: ADVANCE DIRECTIVE STANDARD TITLE: ADVANCE DIRECTIVE DATE OF NOTE: NOV 16, 2023@12:11 ENTRY DATE: NOV 16, 2023@12:11:45 AUTHOR: MARC METZGER EXP COSIGNER: URGENCY: STATUS: COMPLETED * [ ]Advance Directive executed with . [X]Patient brought in his/her own Advance Directive. Scanned Advance Directive or Advance Directive/AOD Flowsheet is located in [employer]. /filippo METZGER LPN License Practical Nurse Signed: 11/16/2023 12:11 MARC METZGER [facility] Nov 16, 2023 11:09 AM PHYSICIAN [...] 7. CARE TEAM Community Primary Care Provider: [facility] [place] [facility] Specialists: Community Specialists[facility] Eduardo Son dental- [facility] HISTORY PERIOD OF SERVICE - [place] SERVICE CONNECTED % - 0 [place], aoc director combat operations officer radar, air control, [phone] HISTORY OF PRESENT ILLNESS Patient presents today for to re-establish care. was in ER recently for dizziness, visison change and some chest pain- when on toilet. pending eval by cardiology- might be thinking about carotid disease RELEVANT PAST MEDICAL HISTORY Active problems - Computerized Problem List is the source for the followin. Chronic obstructive pulmonary disease sees [facility] manager wireless 2. Benign Prostatic Hypertrophy without Outflow Obstruction (SCT [id number]) 3. Lumbosacral radiculopathy 4. Multiple renal cysts [...] Atrial fibrillation xarelto. cardiology Dr. Mack [facility]. h/o cardioversion 11. Seizure disorder nonconvulsive seizures dx [facility]. lamotrigine. Neurology Dr. Jon 12. 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 Lumbosacral radiculopathy 3. Multiple renal cysts [...] to trauma/fall 9. Atrial fibrillation xarelto. cardiology [facility]. h/o cardioversion 10. Seizure disorder nonconvulsive seizures dx [facility]. on [facility] Neurology Dr. Son 11. Cerebral atrophy [...] D.O. PHYSICIAN Signed: 11/16/2023 11:56 POLLY CLIFFORD [facility]
--- OUTSIDE RECORDS SUMMARY | 2024-10-29 09:46 | XMS_ITS | Encounter Summary ---
Author Name [place] Address [address] [place] [address] Care Team Providers Care Pilot Highway Patrol Name Role Phone POLLY CLFIFORD Primary Care Provider Unavailabl e Insurance Providers: [...] Policy Cherry [facility] (WNR) MEDICARE ADVANTAGE [facility] Jul 19, 2023 [id number] Rayne JACOBO PATIENT [employer] PRESCRIPT ION [id number] Jul 19, 2017 [id number] Rayne JACOBO PATIENT MEDICARE (WN) MEDICARE (M) PART A Sep 16, 2005 PART A [id number] [phone] Rayne JACOBO PATIENT MEDICARE (WNR) MEDICARE (M) PART B Sep 16, 2005 PART B [id number] SUKI JACOBO SR PATIENT MEDICARE (WNR) MEDICARE (M) PART A Sep 16, 2005 PART A SUKI JACOBO SR PATIENT MEDICARE (WNR) MEDICARE (M) PART B Sep 16, 2005 PART B [id number] SUKI JACOBO SR PATIENT MEDICARE (WNR) MEDICARE (M) PART A Sep 16, 2005 PART A [id number] SUKI JACOBO SR PATIENT OPTUM RX PRESCRIPT ION RX Jul 19, 2022 THPRX [id number] Rayne JACOBO PATIENT OPTUM RX PRESCRIPT ION RX Jul 19, 2022 THPRX [id number] Rayne JACOBO PATIENT OPTUM RX PRESCRIPT ION RX Jul 19, 2022 THPRX [id number] Rayne JACOBO PATIENT [facility] Jul 19, 2017 [id number] [phone] AVELINASiddharthaRayne SCHUMACHER PATIENT [facility] Jul 19, 2017 [facility] [id number] Rayne JACOBO PATIENT [facility] TON ORELLANA E Jul 19, 2017 [id number] [phone] Rayne JACOBO PATIENT [facility]NOTE [facility]] CE ORGANIZ US FAMIL Y Jul 21, 2013 (WNR) [id number] [facility] TRICA RE(WN R) Jul 19, 2017 (WNR) [id number] Rayne JACOBO PATIENT Selected Encounter This section includes the information on record at [place] for the Encounter. Date/Time Encounter Type Encounter Description Reason Provider Source Dec 31, 2023 10:30 AM OFFICE O/P EST LOW 20 MIN PRIMARY CARE/MEDICINE ICD-10-CM K59.00 Constipation, unspecified FURCOLO,POLLY IHE Encounter Template Text not used by [place] Assessments - Encounter Diagnoses This section includes the primary and secondary diagnoses documented for the Encounter. Date/Time Primary/Secondary Diagnosis Diagnosis Name Provider Source Dec 31, 2023 11:02 AM PRIMARY Constipation, unspecified FURCOLO,POLLY [place] [facility] [place] [facility] Plan of Treatment: Future Appointments (+ 6 months) and Future Tests (+/- 45 days) The Plan of Treatment section includes future care activities for the patient from all [place] [facility]. This section includes future [...] 10, 2024 08:30 AM AMBULATORY - [facility] Social History: Smoking Status (Most current) [...] 29, 2023 06:12 PM [facility] Tobacco Use History This section includes a history of the smoking, or tobacco-related health factors, that were collected on or before the date of the Encounter. The data comes from the [place] facility where the Encounter took place. Date/Time Smoking Status/Tobacco Use Comment F acility Oct 29, 2023 06:12 PM VA-TOBACCO QUIT 15 YRS OR MORE [place] [facility] [place] [facility] Aug 23, 2019 09:07 AM VA-TOBACCO FORMER USER [place] [facility] [place] [facility] Aug 23, 2019 09:07 AM VA-TOBACCO QUIT 15 YRS OR MORE [place] [facility] [place] [facility] Jun 28, 2018 10:50 AM VA-TOBACCO FORMER USER [place] [facility] [place] [facility] Jun 28, 2018 10:50 AM VA-TOBACCO QUIT [facility] YRS OR [facility] Oct 14, 2017 09:20 AM QUIT TOBACCO USE > 7 YEARS AGO [facility] Oct 05, 2016 01:02 PM QUIT TOBACCO USE > 7 YEARS AGO [facility] Advance Directives: All historical and [...] Nov 16, 2023 ADVANCE DIRECTIVE MARC METZGER [facility] Encounter Notes: All associated encounter notes This section contains the clinical notes associated to the Encounter. Date/Time Encounter Note(s) Provider Source Dec 31, 2023 10:47 AM TELEHEALTH NOTE: LOCAL TITLE: [place] VIDEO CONNECT PRIMARY CARE STANDARD TITLE: TELEHEALTH NOTE DATE OF NOTE: DEC 31, 2023@10:47 ENTRY DATE: DEC 31, 2023@10:47:52 AUTHOR: POLLY CLIFFORD EXP COSIGNER: URGENCY: STATUS: COMPLETED [place] Video Connect (VVC) Standard Documentation VVC Clinician Resources Only: E911 (Emergency Call Relay Center): [phone] National Veterans Crisis Line - 9[address] #[address] [facility] Suicide Coordinator - [phone], Ext. [phone]; Back-up Ext. [phone] [place] PoliceSARAH Leeds - [phone] Introduction: Visit is being conducted by [place] ICU [facility] Connect. [place] identified with 2 identifiers: [X] Full Name [X] Date of [ ] VA ID Card Emergency Plan: [place] confirmed and/or provided the following information in case of emergency or technology failure. PATIENT PHONE - PHONE NUMBER [CELLULAR] - Is patient phone number correct, if not, enter below: [place]raw's phone number: [address], [place] [address] [place]'s present location and address for appointment: same [place]'s emergency contact name and phone number: same [place] reported that location is private and safe: Yes Informed Consent: [place] informed of the risks and benefits of Telehealth video care. has the right to refuse video services. If refuses video visit, a exym-ea-jpbr visit will be scheduled. [place] verbalized consent for this video visit: Yes [place] provided consent for any other persons present for visit: Yes If yes, who and relationship to patient: Secure visit: Visit was locked for security and privacy:Yes Vital Signs Visualized during video visit: LEONARDO JACOBO is a 83 year old WHITE MALE who is being seen today in primary care for f/u of constipation. CARE TEAM Community [facility] Special[facility]: Community Specialists: [facility] Dr. Eduardo Son dental- DR. 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 RELEVANT PAST MEDICAL HISTORY Active problems - Computerized Problem List is the source for the followin. Chronic obstructive pulmonary disease sees [facility] prescription eyeglass maker 2. Benign Prostatic Hypertrophy without Outflow Obstruction ([facility] [id number]) 3. Lumbosacral radiculopathy 4. Multiple renal cysts [...] to trauma/fall 10. Atrial fibrillation xarelto. cardiology [facility]. h/o cardioversion 11. Seizure disorder nonconvulsive seizures dx [facility]. lamotrigine. Neurology Dr. Jon 12. Cerebral atrophy no h/o head injury 13. 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 PAST SURGICAL HISTORY left knee arthroscopic surgery bilateral cataracts right THR FAMILY HISTORY Mother: 87- CAD Father: 87- CAD Siblings: 11 (he is the olderst of 12) SOCIAL HISTORY Background: born and raised in [place], [place], 1 year of college Sexual Orientation: heterosexual Marital Status: , in 2019 Children: 3 (Fela- is 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
--- OUTSIDE RECORDS SUMMARY | 2024-10-29 09:46 | XMS_ITS | Continuity of Care Document ---
Author Name [facility] Organization [facility] Care Team Providers Care Manager Technical Name Role Phone [facility] Unavailable Unavailable Problems Combined list of problems from Department of Defense and Veterans Affairs facilities. It does not include entries that were removed or entered in error. Problem Status Onset Date Problem Type Date of Resolution Comments Source Atrial fibrillation Active Condition Oct 05, 2016 Entered By: MALGORZATA CREWS Comment: jennifer. cardiology [facility]. h/o cardioversion [facility] [place] [facility] Benign essential hypertension Active Condition [facility] Benign Prostatic Hypertrophy without Outflow Obstruction (SCT [id number]) Active Condition [facility] Cerebral atrophy Active Condition Oct 05, 2016 Entered By: MALGORZATA CREWS Comment: no h/o head injury [facility] Chronic obstructive pulmonary disease Active Condition Nov 15 Entered By: POLLY CLIFFORD Comment: sees [facility] manager utility [facility] [place] [facility] Cognitive disorder Active Condition Oct 05, 2016 Entered By: MALGORZATA CREWS Comment: 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 [facility] [place] [facility] H/O: osteoarthritis Active Condition Oct 05, 2016 Entered By: MALGORZATA CREWS Comment: L knee chronic limitation in ROMOct 05, 2016 Entered By: MALGORZATA CREWS Comment: h/o R hip replacementOct 05, 2016 Entered By: MALGORZATA CREWS Comment: h/o L rotator cuff repairOct 05, 2016 Entered By: MALGORZATA CREWS Comment: h/o r ankle surgery related to trauma/fall [facility] [place] [facility] Hepatitis C Active [...] By: POLLY CLIFFORD Comment: nonconvulsive [facility] Son [facility] [...] DAILY ORAL ACTIVE JERRY NAVARRO A 2016 [facility] [place] [facility] ALBUTEROL 90MCG/ACTUA T (CFC-F) INHL,ORAL,8 .5GM DOSE COUNTER INHALE 2 PUFFS BY MOUTH EVERY 4 HOURS NEEDED RESPIR ATORY (INHAL ATION) ACTIVE 2016 [facility] [place] [facility] ATORVASTATI N CA 40MG TAB TAKE ONE-HALF TABLET BY MOUTH AT BEDTIME ORAL ACTIVE FURCOLO,T ROQUE 2023 [facility] [place] [facility] CARBOXYMETH YLCELLULOSE NA 0.5% SOLN,OPH INSTILL 1 DROP INTO EACH EYE FOUR TIMES A DAY OPHTHA LMIC 03/16/2024 [id number] VIVI WARNER 2022 15 [facility] [place] [facility] CITALOPRAM HYDROBROMID E 40MG TAB TAKE ONE TABLET BY MOUTH ONCE DAILY ORAL ACTIVE FURCOLO,T ROQUE 2023 [facility] [place] [facility] DILTIAZEM HCL 90MG 12HR CAP,SA TAKE 2 CAPSULES BY MOUTH DAILY ORAL ACTIVE CREWS2016 [facility] [place] [facility] EYELID CLEANSER,EY E SCRUB PAD USE 1 PAD TOPICALL Y ONCE DAILY TOPICA L ACTIVE 07/11/2025 [id number] 4 Rayne MARMOLEJO 2023 90 [facility] [place] [facility] FUROSEMIDE 20MG TAB TAKE ONE TABLET BY MOUTH ONCE DAILY NEEDED ORAL ACTIVE FURCOLO,T ROQUE 2023 [facility] [place] [facility] KETOTIFEN 0.025% SOLN,OPH INSTILL 1 DROP INTO EACH EYE EVERY 12 HOURS FOR ALLERGIC CONJUNCT IVITIS (IF YOU WEAR CONTACT LENSES, WAIT 10 MINUTES BEFORE INSERTIN G LENSES) OPHTHA LMIC ACTIVE 07/11/2025 [id number] 5 Rayne MARMOLEJO 2023 15 [facility] [place] KETOTIFEN 0.025% SOLN,OPH INSTILL 1 DROP INTO EACH EYE EVERY 12 HOURS FOR ALLERGIC CONJUNCT IVITIS (IF YOU WEAR CONTACT LENSES, WAIT 10 MINUTES BEFORE INSERTIN G LENSES) OPHTHA LMIC DISCONT INUED 01/21/2025 [id number] FURCOLO,T ROQUE 2023 15 [facility] [place] KETOTIFEN 0.025% SOLN,OPH INSTILL 1 DROP INTO EACH EYE EVERY 12 HOURS FOR ALLERGIC CONJUNCT IVITIS (IF YOU WEAR CONTACT LENSES, WAIT 10 MINUTES BEFORE INSERTIN G LENSES) [facility] 11/17/2023 [id number] 4 Helena KOENIG NDREW E 2022 15 [facility] [place] LEVETIRACET AM 500MG TAB TAKE TWO TABLETS BY MOUTH TWICE DAILY ORAL ACTIVE FURCOLO,T ROQUE 2023 [facility] [place] MINERAL OIL,LIGHT/P ETROLATUM (PF) OINT,OPH APPLY THIN RIBBON INTO EACH EYE AT BEDTIME FOR DRY EYE OPHTHA LMIC 02/16/2024 [id number] 4 [place]ena KOENIG NDREW E 2022 3 [...] FOR DRY EYE OPHTHA LMIC ACTIVE 07/11/2025 [id number] 5 Rayne MARMOLEJO ICHELE 2024 45 [facility] [place] [facility] PREDNISOLON E ACETATE 1% SUSP,OPH INSTILL 1 DROP INTO EACH EYE TWICE DAILY INFLAMMA TORY DRY EYE SHAKE WELL BEFORE USING OPHTHA LMIC ACTIVE 07/11/2025 [id number] 5 Rayne MARMOLEJO ICHELE 2023 5 [facility] [place] [facility] PSYLLIUM PWDR,ORAL TAKE 1 TEASPOON FUL BY MOUTH ONCE DAILY ORAL ACTIVE FURCOLO,T ROQUE 2023 [facility] [place] [facility] RIVAROXABAN 20MG TAB TAKE ONE TABLET BY MOUTH DAILY ORAL ACTIVE CREWS,MEREDITH BENITEZ M 2016 [facility] [place] [facility] [facility] SENNOSIDES 8.6MG TAB TAKE ONE TABLET BY MOUTH ONCE DAILY ORAL ACTIVE FURCOLO,T ROQUE 2023 [facility] [place] [facility] TAMSULOSIN HCL 0.4MG CAP TAKE 1 CAPSULE BY MOUTH ONCE DAILY ORAL ACTIVE FURCOLO,T ROQUE 2023 [facility] [place] [facility] UMECLIDINIU M 62.5MCG/ALFA ANTEROL 25MCG/ACTUA T INH,ORAL,30 D INHALE 1 INHALATI ON BY MOUTH ONCE DAILY RESPIR ATORY (INHAL ATION) ACTIVE FURCOLO,T ROQUE 2023 [facility] [place] [facility] [facility] Allergies, Adverse Reactions, Alerts Combined list of allergies from Department of Defense and Veterans Affairs facilities. It does not include entries that were removed or entered in error. Substance Category Reaction Severity Reaction type Status Date Reported Comments Source CODEINE Propensity to adverse reactions to drug (finding) active 7 [facility] HYDROCODONE Propensity to adverse reactions to drug (finding) active 4 [facility] [place] [facility] PIROXICAM Propensity to adverse reactions to drug (finding) active [address] [facility] [place] [facility] VICODIN Propensity to adverse reactions to drug (finding) Anxiety active 7 [facility] [place] [facility] Immunizations Combined list of available immunizations from the Department of Defense and Veterans Affairs facilities. 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 Status Comments Source INFLUENZA, UNSPECIFIED FORMULATION 2023 88 complet ed Completed Series, HISTORICA L INFORMATI ON - FROM PATIENT'S RECALL, [facility] INFLUENZA, UNSPECIFIED FORMULATION 2022 88 complet ed Completed Series, HISTORICA L INFORMATI ON - FROM OTHER REGISTRY, [facility] [place] COVID-19 (MODERNA), MRNA, LNP-S, PF, 100 MCG/0.5 ML DOSE 2 2020 207 complet ed MOD; [id number]; 1 [facility] [place] COVID-19 (MODERNA), MRNA, LNP-S, PF, 100 MCG/0.5 ML DOSE 1 2020 207 complet ed MOD; [id number]; 1 [facility] [place] [...] CONJUGATE PCV 13 2016 133 complet ed [place] [facility] [place] FLU,3 YRS (HISTORICAL) 2015 88 complet ed [place] - High dose [facility] [place] PNEUMOCOCCAL CONJUGATE PCV 13 2015 133 complet ed [place] [facility] [place] ZOSTER (HISTORICAL) 2015 121 complet ed [place] [facility] [place] TDAP 2015 115 complet ed [place] [facility] FLU,3 YRS (HISTORICAL) 2014 88 complet ed [place] [facility] FLU,3 YRS (HISTORICAL) 2013 88 complet ed [place] [facility] [place] PNEUMOCOCCAL CONJUGATE PCV 13 2013 133 complet ed [place] [facility] FLU,3 YRS (HISTORICAL) 2012 88 complet ed [place] [facility] TDAP 2012 115 complet ed [place] [facility] FLU,3 YRS (HISTORICAL) 2011 88 complet ed [place] [facility] FLU,3 YRS (HISTORICAL) 2010 88 complet ed [place] [facility] TD(ADULT) UNSPECIFIED FORMULATION 2009 139 complet ed [place] [facility] [place] FLU,3 YRS (HISTORICAL) 2009 88 complet ed [place] [facility] [place] FLU,3 YRS (HISTORICAL) 2009 88 complet ed [place] -[id number] demic flu [facility] [place] FLU,3 YRS (HISTORICAL) 2008 88 complet ed [place] [facility] [place] ZOSTER (HISTORICAL) 2007 121 complet ed [place] [facility] [place] FLU,3 YRS (HISTORICAL) 2007 88 complet ed [place] [facility] [place] FLU,3 YRS (HISTORICAL) 2006 88 complet ed [place] [facility] [place] FLU,3 YRS (HISTORICAL) 2005 88 complet ed [place] [facility] [place] FLU,3 YRS (HISTORICAL) 2004 88 complet ed [place] [facility] [place] PNEUMOCOCCAL CONJUGATE PCV 13 2004 133 complet ed [place] [facility] TD(ADULT) UNSPECIFIED FORMULATION 2003 139 complet ed [place] [facility] [place] Vital [...] [facility] En[facility] [id number] 05/03 [facility] [place] En[facility] [id number] 06/03 [facility] [place] Out[facility] Encounter [id number] 06/17 [facility] HEARING AID REPAIR/MOD IFYING [id number] Diagnos is: ICD-10- CM Z46.1 Encount er for fitting and adjustm ent of hearing aid RAPHAEL CALLE 07/01 [facility] [place] Out[facility] Encounter [id number] 07/20 [facility] Out[facility] Encounter [id number] 07/21 [facility] Out[facility] Encounter [id number] 07/23 [facility] INTRM OPH EXAM EST PATIENT [id number] Diagnos is: ICD-10- CM 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 VIVI WARNER 07/30 [facility] Out[facility] Encounter [id number] 07/30 [facility] Out[facility] Encounter [id number] 08/01 [facility] Out[facility] Encounter [id number] 08/19 [facility] HEARING AID REPAIR/MOD IFYING [id number] Diagnos is: ICD-10- CM Z46.1 Encount er for fitting and adjustm ent of hearing aid HUBER ESPINOZA 10/10 [facility] Out[facility] Encounter [id number] SHAINA TERRAZAS 10/24 [facility] Out[facility] Encounter [id number] 10/28 [facility] OFFICE O/P NEW [place] 60 MIN [id number] Diagnos is: ICD-10- CM J44.9 Chronic obstruc tive pulmona ry disease , unspeci fied FURCOLO,TI NA 11/15 [facility] Out[facility] En[facility] [id number] 12/02 [facility] [place] Out[facility] Encounter [id number] 12/05 [facility] Out[facility] Encounter [id number] 12/14 [facility] Out[facility] Encounter [id number] 12/24 [facility] HEARING AID FITTING/CH ECKING [id number] Diagnos is: ICD-10- CM Z46.1 Encount er for fitting and adjustm ent of hearing aid Preet ANN 12/26 [facility] OFFICE O/P EST LOW 20 MIN [id number] Diagnos is: ICD-10- CM K59.00 Constip ation, unspeci fied FURCOLO,TI NA 12/30 [facility] Out[facility] Encounter [id number] 01/20 [facility] Encounter [id number] 01/26 [facility] [place] Out[facility] Encounter [id number] 02/03 [facility] Out[facility] Encounter [id number] 02/03 [facility] [place] Out[facility] Encounter [id number] 02/03 [facility] [place] Out[facility] Encounter [id number] 02/07 [facility] INTRM OPH EXAM EST PATIENT [id number] Diagnos is: ICD-10- CM H10.45 Other chronic allergi c conjunc VIVI Gupta 02/09 [facility] Encounter [id number] 02/09 [facility] Encounter [id number] 1.05/23 [facility] Out[facility] Encounter [id number] 05/28 [facility] Out[facility] Encounter [id number] 06/22 [facility] [place] Out[facility] Encounter [id number] 1.07/01 [facility] [place] Out[facility] Encounter [id number]/05 [facility] INTRM OPH EXAM EST PATIENT [id number] Diagnos is: ICD-10- CM L71.8 Other rosacea FRANCIE,NC JOSE 07/10 [facility] Out[facility] Encounter [id number] 08/24 [facility] Out[facility] Encounter [id number] 08/29 [facility] OFFICE O/P EST HI 40 MIN [id number] Diagnos is: ICD-10- CM J44.9 Chronic obstruc tive pulmona ry disease , unspeci fied FURCOLO,TI NA 08/29 [facility] Out[facility] Encounter [id number] 09/07 [facility] OFF/OP EST MAY X REQ PHY/QHP [id number] Diagnos is: ICD-10- CM M25.562 Pain in left knee REANNA BOWLES S 09/08 [facility] OFFICE O/P EST MOD 30 MIN [id number] Diagnos is: ICD-10- CM M23.92 Unspeci fied interna l derange ment of left knee KIMBERLEE WAGNER 09/08 [facility] Out[facility] Encounter [id number]/19 [facility] THERAPEUTI C EXERCISES [id number] 1. Diagnos is: ICD-10- CM M25.562 Pain in left knee TONIO LAZAR M 09/19 [facility] THERAPEUTI C EXERCISES [id number] Diagnos is: ICD-10- CM M25.562 Pain in left knee Rayne LIIN 09/25 [facility] Outpatient Encounter [id number] 09/27 [facility] INTRM OPH EXAM EST PATIENT [id number] Diagnos is: ICD-10- CM G43.909 Migrain e, unsp, not intract able, without status migrain osus FRANCIEREANNA GARCIA 10/02 [facility] [place] [facility] [place] [facility] THERAPEUTI C EXERCISES [id number] Diagnos is: ICD-10- CM M25.562 Pain in left knee Rayne LIIN 10/02 [facility] [place] [facility] [place] [facility] THERAPEUTI C EXERCISES [id number] Diagnos is: ICD-10- CM M25.562 Pain in left knee Rayne LI KENDY 10/10 [facility] [place] [facility] Social History Combined list of available smoking, tobacco, and other social history from Department of Defense and Veterans Affairs facilities. Social History Type Response Date Comment Sour e Tobacco smoking status NHIS HI-TOBACCO FORMER USER [facility]20[facility] of [facility] of [facility] 08[facility]23[facility] History of tobacco use HI-TOBACCO FORMER USER 06/28/2018 [facility] History of tobacco use QUIT TOBACCO USE > 7 YEARS AGO 10/14/2017 [facility] History of tobacco use QUIT TOBACCO USE > 7 YEARS AGO 10/05/2016 [facility] Plan of Care List of future care activities from Department of Veterans Affairs facilities. Additional future care activities may be listed in the Assessment and Plan section. Date/Time Care Activity Care Activity Detail Facili ty 11/01/2024 AMBULATORY - REHAB MEDICINE AMBULATORY - REHAB MEDICINE [facility] Advance Directives List of completed, amended, or rescinded Advance Directives on record at Department of Veterans Affairs facilities. An actual copy of the Directive is not included. Date Advance Directive Provider Source 11/16/2023 ADVANCE DIRECTIVE MARC METZGER [facility]
--- OUTSIDE RECORDS SUMMARY | 2024-10-29 09:46 | XMS_ITS | Encounter Summary ---
Author Name [facility] [facility] [place] Address [address] [place] [address] Care Team Providers Care Utility Assembler Name Role Phone POLLY CLIFFORD Primary [...] Cherry [facility] (WNR) MEDICARE ADVANTAGE [facility] (WNR) Jul 19, 2023 [id number] Rayne JACOBO PATIENT [facility] PRESCRIPT ION [id number] 1 Jul 19, 2017 [id number] [phone] Rayne JACOBO PATIENT MEDICARE (WNR) MEDICARE () PART A Sep 16, 2005 PART A [id number] Rayne JACOBO PATIENT MEDICARE (WNR) MEDICARE () PART B Sep 16, 2005 PART B [id number] SUKI JACOBO SR PATIENT MEDICARE (WNR) MEDICARE (M) PART A Sep 16, 2005 PART A [id number] SUKI JACOBO SR PATIENT MEDICARE (WNR) MEDICARE (M) PART B Sep 16, 2005 PART B [id number] [phone] SUKI JACOBO SR PATIENT MEDICARE (WNR) MEDICARE (M) PART A Sep 16, 2005 PART A [id number] SUKI JACOBO SR PATIENT [facility] RX PRESCRIPT ION RX Jul 19, 2022 [id number] Rayne JACOBO PATIENT [facility] RX PRESCRIPT ION RX Jul 19, 2022 THPRX [id number] [phone] Rayne JACOBO PATIENT [facility] RX PRESCRIPT ION RX Jul 19, 2022 THPRX [id number] Rayne JACOBO PATIENT [facility] Jul 19, 2017 [id number] Rayne JACOBO PATIENT [facility] Jul 19, 2017 [facility] [id number] [phone] Rayne JACOBO PATIENT [facility] Jul 19, 2017 [id number] [phone] Rayne JACOBO PATIENT [facility] Jul 21, 2013 (WNR) [id number] [phone] Rayne JACOBO PATIENT [facility] RE(WN R) Jul 19, 2017 (WNR) [id number] [phone] Rayne JACOBO PATIENT Selected Encounter This [...] not intractable, without status migrainosus LACEY MARMOLEJO [facility] [place] [facility] Oct 04, 2024 07:32 AM SECONDARY Dry eye syndrome of bilateral lacrimal glands LACEY MARMOLEJO [facility] [place] [facility] Oct 04, 2024 07:32 AM SECONDARY Other chronic allergic conjunctivitis LACEY MARMOLEJO [facility] [place] [facility] Oct 04, 2024 07:32 AM SECONDARY Other subjective visual disturbances LACEY MARMOLEJO [facility] [place] [facility] Oct 04, 2024 07:32 AM SECONDARY Presence of intraocular lens LACEY MARMOLEJO [facility] [place] [facility] Plan of Treatment: Future Appointments (+ 6 months) and Future Tests (+/- 45 days) The Plan of Treatment section includes future care activities for the patient [facility] This section includes future appointments [...] 09:00 AM AMBULATORY - REHAB MEDICIN E [facility] [place] [facility] Nov 01, 2024 08:30 AM AMBULATORY - REHAB MEDICIN E [facility] [place] [facility] Social History: Smoking Status (Most current) [...] 29, 2023 06:12 PM [facility] Tobacco Use History This section includes a history of the smoking, or tobacco-related health factors, that were collected on or before the date of the Encounter. The data comes from the [place] facility where the Encounter took place. Date/Time Smoking Status/Tobacco Use Comment F acility Oct 29, 2023 06:12 PM AR-TOBACCO QUIT 15 YRS OR MORE [facility] Aug 23, 2019 09:07 AM VA-TOBACCO FORMER USER [facility] Aug 23, 2019 09:07 AM [facility]CO [facility]RS [facility] Jun 28, 2018 10:50 AM AR-TOBACCO FORMER USER [facility] Jun 28, 2018 10:50 AM AR-TOBACCO QUIT 15 YRS OR MORE [facility] Oct 14, 2017 09:20 AM QUIT TOBACCO USE > 7 YEARS AGO [facility] Oct 05, 2016 01:02 PM QUIT TOBACCO USE > 7 YEARS AGO [facility] Advance Directives: All [...] 16, 2023 ADVANCE DIRECTIVE MARC METZGER [facility] Encounter Notes: All [...] 2. Benign Prostatic Hypertrophy without Outflow Obstruction ([facility] [id number]) 3. Lumbosacral radiculopathy 4. Multiple renal cysts [...] BY MOUTH ONCE DAILY ACTIVE 14) Non-VA [id number]/VILANTERO L25MCG 30D INH 1 INHALATION ACTIVE BY [...] Signed: 10/04/2024 07:46 OSKAR CRUZ CNTRL WSTRSunil [facility]
--- OUTSIDE RECORDS SUMMARY | 2024-10-29 09:46 | XMS_ITS | Encounter Summary ---
Author Name Department [place] Organization [place] Address [address] [place] [address] Care Team Providers Care Experimental Aircraft Mechanic Name Role Phone POLLY CLIFFORD Primary Care [...] Cherry's Name Patient's Relationship to Policy Cherry [facility] (WNR) MEDICARE ADVANTAGE [facility] ([facility]) Jul 19, 2023 [id number] Rayne JACOBO PATIENT CAR[facility] PRESCRIPT ION [id number] 1 Jul 19, 2017 [id number] [phone] Rayne JACOBO PATIENT MEDICARE (WN) MEDICARE (M) PART A Sep 16, 2005 PART A [id number] Rayne JACOBO PATIENT MEDICARE (WNR) MEDICARE () PART B Sep 16, 2005 PART B [id number] SUKI JACOBO SR PATIENT MEDICARE (WNR) MEDICARE (M) PART A Sep 16, 2005 PART A [id number] SUKI JACOBO SR PATIENT MEDICARE (WNR) MEDICARE (M) PART B Sep 16, 2005 PART B [id number] SUKI JACOBO SR PATIENT MEDICARE (WNR) MEDICARE (M) PART A Sep 16, 2005 PART A [id number] SUKI JACOBO SR PATIENT OPTUM RX PRESCRIPT ION RX Jul 19, 2022 THPRX [id number] Rayne JACOBO PATIENT OPTUM RX PRESCRIPT ION RX Jul 19, 2022 THPRX [id number] Rayne JACOBO PATIENT OPTUM RX PRESCRIPT ION RX Jul 19, 2022 THPRX [id number] Rayne JACOBO PATIENT [facility] Jul 19, 2017 [id number] AVELINASiddharthaRayne SCHUMACHER PATIENT [facility] Jul 19, 2017 [facility] [id number] [phone] Rayne JACOBO PATIENT ON LICENSE OF [facility] TON ORELLANA E Jul 19, 2017 [id number] [phone] Rayne JACOBO PATIENT [facility] CE ORGANIZ US FAMIL Y Jul 21, 2013 (WNR) [id number] Rayne JACOBO PATIENT [facility] ([facility]) [facility] TRICA RE(WN R) Jul 19, 2017 (WNR) [id number] [phone] Rayne JACOBO PATIENT Selected Encounter This section includes the information on record at NH for the Encounter. Date/Time Encounter Type Encounter Description Reason Provider Source Sep 08, 2024 09:00 AM OFFICE O/P EST MOD 30 MIN PRIMARY CARE/MEDICINE ICD-10-CM M23.92 Unspecified internal derangement of left knee ZHANNA WAGNER E Encounter Template Text not used by NH Assessments - Encounter Diagnoses This section includes the primary and secondary diagnoses documented for the Encounter. Date/Time Primary/Secondary Diagnosis Diagnosis Name Provider Source Sep 08, 2024 10:17 AM PRIMARY Unspecified internal derangement of left knee ZHANNA WAGNER [facility] Plan of Treatment: Future Appointments (+ 6 months) and Future Tests (+/- 45 days) The Plan of Treatment section includes future care activities for the patient from [facility]. This section includes future appointments and future orders which are active, pending or scheduled. Future Appointments This section includes appointments that were scheduled to occur 6 months from the date of the Encounter, up to a maximum of 20 appointments. The data comes from all NH treatment facilities. Appointment Date/Time Appointment Type Appointme nt Facility Name Sep 19, 2024 01:30 PM AMBULATORY - REHAB MEDICIN E [place] [facility] [place] [facility] Sep 25, 2024 02:00 PM AMBULATORY - REHAB MEDICIN E [place] [facility] [place] [facility] Oct 02, 2024 01:00 PM AMBULATORY - MEDICINE [place] [facility] [place] [facility] Oct 02, 2024 02:00 PM AMBULATORY - REHAB MEDICIN E [place] [facility] [facility] 2024 09:00 AM AMBULATORY - REHAB MEDICIN E [place] [facility] [place] [facility] Nov 01, 2024 08:30 AM [facility] [place] [facility] Vital Signs: All taken on the encounter date This section contains inpatient and outpatient Vital Signs collected on the date of the Encounter. Date/Time Temperature Pulse Blood Pressure Respiratory Rate SP02 Pain Height Weight Body Mass Index Source Sep 08, 2024 09:12 AM 98.1 61 129/55 18 96 [place] [facility] [place] [facility] Social History: Smoking Status (Most current) and Tobacco Use (All prior to encounter date) This section includes the most current, and the historical, smoking and tobacco- related health factors from the NH facility where the Encounter took place. Current Smoking Status This section includes the most current smoking, or tobacco-related health factor, from the NH facility where the Encounter took place. Date/Time Current Smoking Status Comment Ramon yost Oct 29, 2023 06:12 PM VA-TO[facility]ACCO [facility] Tobacco Use History This section includes a history of the smoking, or tobacco-related health factors, that were collected on or before the date of the Encounter. The data comes from the [place] facility where the Encounter took place. Date/Time Smoking Status/Tobacco Use Comment Prashanth accecile Oct 29, 2023 06:12 PM VA-TOBACCO QUIT 15 YRS OR MORE [facility] Aug 23, 2019 09:07 AM [facility]AC[facility] Aug 23, 2019 09:07 AM NH-TOBACCO QUIT 15 YRS OR MORE [facility] Jun 28, 2018 10:50 AM [facility]ACCO [facility] Jun 28, 2018 10:50 AM NH-TOBACCO QUIT 15 YRS OR MORE [facility] Oct 14, 2017 09:20 AM QUIT TOBACCO USE > 7 YEARS AGO [facility] Oct 05, 2016 01:02 PM QUIT TOBACCO USE > 7 YEARS AGO [facility] Advance Directives: All historical and current Section Date Range: From patient's date of to the date document was created. This section includes ALL of a patient's completed or amended [place] Advance and Rescinded Directives. The entries below indicate that a directive exists for the patient, but an actual copy is not included with this document. The data comes from all [place] facilities. Date Advance Directives Provider Source Nov 16, 2023 ADVANCE DIRECTIVE MARC METZGER [facility] Encounter Notes: All associated encounter notes This section contains the clinical notes associated to the Encounter. Date/Time Encounter Note(s) Provider Source Sep 12, 2024 08:35 AM ADDENDUM: LOCAL TITLE: Addendum STANDARD TITLE: ADDENDUM DATE OF NOTE: SEP 12, 2024@08:35:15 ENTRY DATE: SEP 12, 2024@08:35:16 AUTHOR: WILBUR,LEONARDO S EXP COSIGNER: URGENCY: STATUS: COMPLETED Followed up with [place] and daughter Linden via tele. They state there has been improvement with the brace and tylenol but still recovering, not back to baseline. They haven't been able to take tylenol three times per day because the vet goes to bed at 5:30 pm. They are requesting PT Consult in [place]. Daughter Linden can drive to the sessions. Forward to PCP, please enter [facility] PT consult as requested. Thank you! [...] 0.4MG BY MOUTH ONCE DAILY ACTIVE Non-VA MTJDSEINQURJ53.5/VILANTER IM98LWW 30D INH 1 ACTIVE INHALATION BY MOUTH [...] range of motion of the joints with [place] able to extend and hold as well [...] treatment planning, education and counseling of the patient/family/pediatric acute care unit nurse, placing orders, communicating with other health care providers and documentation in the electronic health record. [place] able to verbalize understanding of plan of care and agrees. >> MEDICATIONS Reviewed and reconciled with [place] /es/ ZHANNA SARGENT MS,PA-C PHYSICIAN NEUROPHYSIOLOGIST Signed: 09/08/2024 10:17 Receipt Acknowledged By: 09/08/2024 10:54 /es/ POLLY CLIFFORD D.O. PHYSICIAN 09/12/2024 08:51 /alba/ LEONARDO BOWLES Registered Nurse LEONARDO BOWLES [place] [facility] [place] [facility] Sep 08, 2024 09:50 AM PHYSICIAN NEUROPHYSIOLOGIST NOTE: LOCAL TITLE: PA NOTE STANDARD TITLE: PHYSICIAN NEUROPHYSIOLOGIST NOTE DATE OF NOTE: SEP 08, 2024@09:50 ENTRY DATE: SEP 08, 2024@09:50:54 AUTHOR: ZHANNA WAGNER EXP COSIGNER: URGENCY: STATUS: COMPLETED FEMI NOTE Has ADDENDA SICK CALL VISIT HPI: 83-year-old male with below noted past medical history presents with daughter regarding left knee pain. [place] is requesting a knee support. There is [...] 03/23/2019 [place] Atrial fibrillation I48.20 11/16/2023 POLLY CLIFFORD Seizure disorder G40.109 11/16/2023 POLLY CLIFFORD Cerebral atrophy R69. 10/05/2016 [place] [facility] Cognitive [...] 0.4MG BY MOUTH ONCE DAILY ACTIVE Non-VA JXPDNGTAYYQY10.5/VILANTER VC90CVB 30D INH 1 ACTIVE INHALATION BY MOUTH [...] or gross functional deficit at this time. Foreign was placed in a hinged knee support [...] treatment planning, education and counseling of the patient/family/pediatric acute care unit nurse, placing orders, communicating with other health care providers and documentation in the electronic health record. able to verbalize understanding of plan of care and agrees. >> MEDICATIONS Reviewed and reconciled with /es/ ZHANNA SARGENT MS,PA-C PHYSICIAN NEUROPHYSIOLOGIST Signed: 09/08/2024 10:17 Receipt Acknowledged By: 09/08/2024 [...] pm. They are requesting PT Consult in [place]. Daughter Linden can drive to the sessions. Forward to PCP, please enter [facility] PT consult as requested. Thank you! /alba/ LEONARDO BOWLES Registered Nurse Signed: 09/12/2024 08:40 Receipt Acknowledged By: * AWAITING SIGNATURE * POLLY CLIFFORD,ZHANNA MUÑIZ [place] [facility]
--- OUTSIDE RECORDS SUMMARY | 2024-10-29 09:46 | XMS_ITS | Encounter Summary ---
Author Name [place] Address [address] [place] [address] Care Team Providers Care Sole Rounder Name Role Phone POLLY CLIFFORD Primary Care [...] Cherry's Name Patient's Relationship to Policy Cherry [facility] (WNR) MEDICARE ADVANTAGE [facility] ([facility]) Jul 19, 2023 [id number] Rayne JACOBO PATIENT [employer] PRESCRIPT ION [id number] 1 Jul 19, 2017 [id number] Rayne JACOBO PATIENT MEDICARE (WN) MEDICARE (M) PART A Sep 16, 2005 PART A [id number] Rayne JACOBO PATIENT MEDICARE (WNR) MEDICARE (M) PART B Sep 16, 2005 PART B [id number] 82 SUKI JACOBO SR PATIENT MEDICARE (WNR) MEDICARE (M) PART A Sep 16, 2005 PART A SUKI JACOBO SR PATIENT MEDICARE (WNR) MEDICARE (M) PART B Sep 16, 2005 PART B [id number] SUKI JACOBO SR PATIENT MEDICARE (WNR) MEDICARE (M) PART A Sep 16, 2005 PART A [id number] SUKI JACOBO SR PATIENT OPTUM RX PRESCRIPT ION RX Jul 19, 2022 THPRX [id number] Rayne JACOBO PATIENT OPTUM RX PRESCRIPT ION RX Jul 19, 2022 THPRX [id number] [phone] Rayne JACOBO PATIENT OPTUM RX PRESCRIPT ION RX Jul 19, 2022 THPRX [id number] [phone] Rayne JACOBO PATIENT [facility] Jul 19, 2017 [id number] AVELINASiddharthaRayne SCHUMACHER PATIENT [facility] Jul 19, 2017 [facility] [id number] Rayne JACOBO PATIENT [facility] TON ORELLANA E Jul 19, 2017 [id number] Rayne JACOBO PATIENT [facility] CE ORGANIZ US FAMIL Y Jul 21, 2013 (WNR) [id number] Rayne JACOBO PATIENT [facility] ([facility]) [facility] RE(WN R) Jul 19, 2017 (WNR) [id number] Rayne JACOBO PATIENT Selected Encounter This section includes the information on record at [place] for the Encounter. Date/Time Encounter Type Encounter Description Reason Provider Source Aug 29, 2024 10:30 AM OFFICE O/P EST HI 40 MIN PRIMARY CARE/MEDICINE ICD-10-CM J44.9 Chronic obstructive pulmonary disease, unspecified FURCOLO,POLLY IHE Encounter Template Text not used by [place] Assessments - Encounter Diagnoses This section includes the primary and secondary diagnoses documented for the Encounter. Date/Time Primary/Secondary Diagnosis Diagnosis Name Provider Source Aug 29, 2024 11:23 AM PRIMARY Chronic obstructive pulmonary disease, unspecified FURCOLO,POLLY [facility] [place] [facility] Aug 29, 2024 11:23 AM SECONDARY Benign prostatic hyperplasia without lower urinry tract symp FURCOLO,POLLY [facility] [place] [facility] Aug 29, 2024 11:23 AM SECONDARY Chronic atrial fibrillation, unspecified FURCOLO,POLLY [facility] [place] [facility] Aug 29, 2024 11:23 AM SECONDARY Chronic hepatitis, unspecified FURCOLO,POLLY [facility] [place] [facility] Aug 29, 2024 11:23 AM SECONDARY Cyst of kidney, acquired FURCOLO,POLLY [facility] [place] [facility] Aug 29, 2024 11:23 AM SECONDARY Essential (primary) hypertension FURCOLO,POLLY [facility] [place] [facility] Aug 29, 2024 11:23 AM SECONDARY Local-rel symptc epi w simp prt seiz,not ntrct, w/o stat epi FURCOLO,POLLY [facility] [place] [facility] Aug 29, 2024 11:23 AM SECONDARY Mild cognitive impairment of uncertain or unknown etiology FURCOLO,POLLY [facility] [place] [facility] Aug 29, 2024 11:23 AM SECONDARY Polyneuropathy due to other toxic agents FURCOLO,POLLY [facility] [place] [facility] Aug 29, 2024 11:23 AM SECONDARY Radiculopathy, lumbar region FURCOLO,POLLY [facility] [place] [facility] Aug 29, 2024 11:23 AM SECONDARY Sleep apnea, unspecified FURCOLO,POLLY [facility] [place] [facility] Plan of Treatment: Future Appointments (+ 6 [...] [place] treatment facilities. Appointment Date/Time Appointment Type Appointme nt Facility Name Sep 08, 2024 08:30 AM AMBULATORY - MEDICINE [place] [facility] Sep 08, 2024 09:00 AM AMBULATORY - MEDICINE [place] [facility] Sep 19, 2024 01:30 PM AMBULATORY - REHAB MEDICIN E [place] [facility] [place] [facility] Sep 25, 2024 02:00 PM AMBULATORY - REHAB MEDICIN E [place] [facility] [place] [facility] Oct 02, 2024 01:00 PM AMBULATORY - MEDICINE [place] [facility] Oct 02, 2024 02:00 PM AMBULATORY - REHAB MEDICIN E [place] [facility] [place] [facility] 2024 09:00 AM AMBULATORY - REHAB MEDICIN E [place] [facility] [place] [facility] Nov 01, 2024 08:30 AM AMBULATORY - REHAB MEDICIN E [place] [facility] [place] [facility] Vital Signs: All taken on the encounter date This section contains inpatient and outpatient Vital Signs collected on the date of the Encounter. Date/Time Temperature Pulse Blood Pressure Respiratory Rate SP02 Pain Height Weight Body Mass Index Source Aug 29, 2024 10:47 AM 98.4 56 133/71 16 96 0 220 33 [place] [facility] [facility] [facility] Social History: Smoking Status (Most current) and Tobacco Use (All prior to encounter date) This section includes the most current, and the historical, smoking and tobacco- related health factors from the [place] facility where the Encounter took place. Current Smoking Status This section includes the most current smoking, or tobacco-related health factor, from the [place] facility where the Encounter took place. Date/Time Current Smoking Status Comment Ramon yost Oct 29, 2023 06:12 PM [facility] Tobacco Use History This section includes a history of the smoking, or tobacco-related health factors, that were collected on or before the date of the Encounter. The data comes from the [place] facility where the Encounter took place. Date/Time Smoking Status/Tobacco Use Comment F acility Oct 29, 2023 06:12 PM VA-TOBACCO QUIT 15 YRS OR MORE [place] [facility] [place] [facility] Aug 23, 2019 09:07 AM VA-TOBACCO FORMER USER [place] [facility] Aug 23, 2019 09:07 AM VA-TOBACCO QUIT 15 YRS OR MORE [place] [facility] Jun 28, 2018 10:50 AM VA-TOBACCO FORMER USER [place] [facility] Jun 28, 2018 10:50 AM VA-TOBACCO QUIT 15 YRS OR MORE [place] [facility] Oct 14, 2017 09:20 AM QUIT TOBACCO USE > 7 YEARS AGO [place] [facility] Oct 05, 2016 01:02 PM QUIT TOBACCO USE > [facility] AGO [facility] Advance Directives: All historical and current Section Date Range: From patient's date of to the date document was created. This section includes ALL of a patient's completed or amended [place] Advance and Rescinded Directives. The entries below indicate that a directive exists for the patient, but an actual copy is not included with this document. The data comes from all [place] facilities. Date Advance Directives Provider Source Nov 16, 2023 ADVANCE DIRECTIVE MARC METZGER [facility] Encounter Notes: All associated encounter [...] Prescriptions, Test Results I reeust and authorize [facility] to release the information specified below to [...] Practical Nurse Signed: 08/29/2024 12:17 MARC METZGER [place] [facility] [place] [facility] Aug 29, 2024 11:00 AM PHYSICIAN NOTE: LOCAL TITLE: MD NOTE STANDARD TITLE: PHYSICIAN NOTE DATE OF NOTE: AUG 29, 2024@11:00 ENTRY DATE: AUG 29, 2024@11:00:16 AUTHOR: POLLY CLIFFORD COSIGNER: URGENCY: STATUS: COMPLETED YULIZAHRASiddharthaLEONARDO SCHUMACHER is a 83 year old WHITE MALE who is being seen today in primary care for ER f/u of chest pain CARE TEAM Community Primary Care Provider: Dr. Curry Nicholson [facility] Specialists: Community Specialists: cardiology Dr. Giron [facility] neurology- Dr. Eduardo Son dental- DR. 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 Chronic obstructive pulmonary disease sees [facility] gum dipper 2. Benign Prostatic Hypertrophy without Outflow Obstruction (SCT [id number]) 3. Lumbosacral radiculopathy 4. Multiple renal cysts [...] to trauma/fall 10. Atrial fibrillation xarelto. cardiology [facility]. h/o cardioversion 11. Seizure disorder nonconvulsive seizures. [facility], sees Dr. Son 12. Cerebral atrophy no h/o head injury 13. 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 Chronic obstructive pulmonary disease sees [facility] gum dipper 2. Benign Prostatic Hypertrophy without Outflow Obstruction (SCT [id number]) 3. Lumbosacral radiculopathy 4. Multiple renal cysts [...] 10. Atrial fibrillation xarelto. cardiology Dr. Giron - [facility]. h/o cardioversion. on xarelto- no falls [...] D.O. PHYSICIAN Signed: 08/29/2024 11:23 POLLY CLIFFORD [facility] Aug 29, 2024 10:53 AM PREVENTIVE MEDICINE [...] Practical Nurse Signed: 08/29/2024 10:53 MARC METZGER [facility]
--- OUTSIDE RECORDS SUMMARY | 2024-10-29 09:46 | XMS_ITS | Encounter Summary ---
Author Name [facility] [place] Address [address] [place] [address] Care Team Providers Care Supervisor Photoengraving Name Role Phone POLLY CLIFFORD Primary Care [...] Cherry's Name Patient's Relationship to Policy Cherry [facility] (WNR) MEDICARE ADVANTAGE [facility] (WN) Jul 19, 2023 [id number] Rayne JACOBO PATIENT [facility] PRESCRIPT ION [id number] 1 Jul 19, 2017 [id number] Rayne JACOBO PATIENT MEDICARE (WN) MEDICARE () PART A Sep 16, 2005 PART A [id number] Rayne JACOBO PATIENT MEDICARE (WNR) MEDICARE () PART B Sep 16, 2005 PART B [id number] [id number] SUKI JACOBO SR PATIENT MEDICARE (WNR) MEDICARE (M) PART A Sep 16, 2005 PART A [id number] SUKI JACOBO SR PATIENT MEDICARE (WNR) MEDICARE (M) PART B Sep 16, 2005 PART B [id number] SUKI JACOBO SR PATIENT MEDICARE (WNR) MEDICARE (M) PART A Sep 16, 2005 PART A [id number] SUKI JACOBO SR PATIENT OPTUM RX PRESCRIPT ION RX Jul 19, 2022 THPRX [id number] [phone] Rayne JACOBO PATIENT OPTUM RX PRESCRIPT ION RX Jul 19, 2022 THPRX [id number] Rayne JACOBO PATIENT OPTUM RX PRESCRIPT ION RX Jul 19, 2022 THPRX [id number] Rayne JACOBO PATIENT [facility] Jul 19, 2017 [id number] Rayne JACOBO PATIENT [facility] Jul 19, 2017 [facility] [id number] Rayne JACOBO PATIENT [facility] T[facility]RELL[facility] E Jul 19, 2017 [id number] Rayne JACOBO PATIENT [facility] CE ORGANIZ US FAMIL Y Jul 21, 2013 (WNR) [id number] Rayne JACOBO PATIENT [facility] TRIC RE(WN R) Jul 19, 2017 (WNR) [id number] Rayne JACOBO PATIENT Selected Encounter This section includes the information on record at [place] for the Encounter. Date/Time Encounter Type Encounter Description Reason Provider Source Dec 27, 2023 01:00 PM HEARING AID FITTING/CHECKIN G AUDIOLOGY ICD-10-CM Z46.1 Encounter for fitting and adjustment of hearing aid GEMMA ANN IHE Encounter Template Text not used by [place] Assessments - Encounter Diagnoses This section includes the primary and secondary diagnoses documented for the Encounter. Date/Time Primary/Secondary Diagnosis Diagnosis Name Provider Source Dec 27, 2023 01:25 PM PRIMARY Encounter for fitting and adjustment of hearing aid [facility] Dec 27, 2023 01:25 PM SECONDARY Sensorineural hearing loss, bilateral MARISSAGEMMA E [facility] Plan of Treatment: Future Appointments (+ 6 months) and Future Tests (+/- 45 days) The Plan of Treatment section includes future care activities for the patient from all [place] [facility]. This section includes future appointments and future orders which are active, pending or scheduled. Future Appointments This section includes appointments that were scheduled to occur 6 months from the date of the Encounter, up to a maximum of 20 appointments. The data comes from all [place] treatment facilities. Appointment Date/Time Appointment Type Appointme nt Facility Name Dec 31, 2023 10:30 AM AMBULATORY - MEDICINE [facility] Feb 10, 2024 08:30 AM AMBULAT[facility] - [facility] Social History: Smoking Status (Most current) [...] 29, 2023 06:12 PM VA-TOBACCO FORMER USER [facility] Tobacco Use History This section includes a history of the smoking, or tobacco-related health factors, that were collected on or before the date of the Encounter. The data comes from the [place] facility where the Encounter took place. Date/Time Smoking Status/Tobacco Use Comment F accecile Oct 29, 2023 06:12 PM VA-TOBACCO QUIT 15 YRS OR MORE [place] [facility] Aug 23, 2019 09:07 AM VA-TOBACCO [facility] Aug 23, 2019 09:07 AM VA-TOBACCO QUIT 15 YRS OR MORE [facility] Jun 28, 2018 10:50 AM [place]-TOBACCO [facility] Jun 28, 2018 10:50 AM [place]-TOBACCO QUIT 15 YRS OR MORE [facility] Oct 14, 2017 09:20 AM QUIT TOBACCO USE > 7 YEARS AGO [facility] Oct 05, 2016 01:02 PM QUIT TOBACCO USE > 7 YEARS AGO [facility] Advance Directives: All historical and [...] Nov 16, 2023 ADVANCE DIRECTIVE MARC METZGER [facility] Encounter Notes: All associated encounter notes This section contains the clinical notes associated to the Encounter. Date/Time Encounter Note(s) Provider Source Dec 27, 2023 11:51 AM AUDIOLOGY E & M NO TE: [facility] TITLE: AUDIOLOGY CLINIC STANDARD TITLE: AUDIOLOGY E & M NOTE DATE OF NOTE: DEC 27, 2023@11:51 ENTRY DATE: DEC 27, 2023@11:51:51 AUTHOR: GEMMA ANN COSIGNER: URGENCY: STATUS: COMPLETED has a history of bilateral sensorineural hearing loss. He was seen on 12-27-23 for hearing aid follow up regarding his [facility] ITCs. He reports he has difficulty hearing [...] Ordered media device, should be shipped to [facility] upon receipt. Force will contact the clinic as needed. /alba/ Garry SPAIN, [facility]-A STAFF FITTER ARMAMENT Signed: 12/27/2023 13:29 GEMMA ANN [place] CNTRL TRN [facility]
--- OUTSIDE RECORDS SUMMARY | 2024-10-29 09:46 | XMS_ITS ---
Author Name [facility] [place] Address [address] [place] [address] Care Team Providers Care Truck Hop Name Role Phone POLLY CLIFFORD Primary Care [...] Cherry's Name Patient's Relationship to Policy Cherry [facility] (WNR) MEDICARE ADVANTAGE [facility] (WNR) Jul 19, 2023 [id number] Rayne JACOBO PATIENT [facility] PRESCRIPT ION [id number] 1 Jul 19, 2017 [id number] Rayne JACOBO PATIENT MEDICARE (WNR) MEDICARE () PART A Sep 16, 2005 PART A [id number] Rayne JACOBO PATIENT MEDICARE (WNR) MEDICARE () PART B Sep 16, 2005 PART B [id number] SUKI JACOBO SR PATIENT MEDICARE (WNR) MEDICARE (M) PART A Sep 16, 2005 PART A [id number] SUKI JACOBO SR PATIENT MEDICARE (WNR) MEDICARE (M) PART B Sep 16, 2005 PART B [id number] SUKI JACOBO SR PATIENT MEDICARE (WNR) MEDICARE (M) PART A Sep 16, 2005 PART A [id number] [phone] SUKI JACOBO SR PATIENT OPTUM RX PRESCRIPT ION RX Jul 19, 2022 THPRX [id number] Rayne JACOBO PATIENT OPTUM RX PRESCRIPT ION RX Jul 19, 2022 THPRX [id number] [phone] Rayne JACOBO PATIENT OPTUM RX PRESCRIPT ION RX Jul 19, 2022 THPRX [id number] [phone] Rayne JACOBO PATIENT [facility] Jul 19, 2017 [id number] [phone] Rayne JACOBO PATIENT [facility] Jul 19, 2017 [facility] [id number] Rayne JACOBO PATIENT [facility] TON ORELLANA E Jul 19, 2017 [id number] Rayne JACOBO PATIENT [facility] CE ORGANIZ US FAMIL Y Jul 21, 2013 (WNR) [id number] Rayne JACOBO PATIENT [facility] ([facility] TRICA RE(WN R) Jul 19, 2017 (WNR) [id number] Rayne JACOBO PATIENT Selected Encounter This [...] OSHINSKIE,LEA NARD J [facility] [place] [facility] Feb 11, 2024 08:30 AM SECONDARY Esophoria OSHINSKIE,LEA NARD J [facility] [place] [facility] Feb 11, 2024 08:30 AM SECONDARY Hypermetropia, bilateral OSHINSKIE,LEA NARD J [facility] [place] [place] [facility] Feb 11, 2024 08:30 AM SECONDARY Other visual disturbances OSHINSKIE,LEA NARD J [facility] [place] [facility] Feb 11, 2024 08:30 AM SECONDARY Presbyopia OSHINSKIE,LEA NARD J [facility] [place] [facility] Feb 11, 2024 08:30 AM SECONDARY Presence of intraocular lens OSHINSKIE,LEA NARD J [facility] [place] [place] [facility] Feb 11, 2024 08:30 AM SECONDARY Regular astigmatism, bilateral OSHINSKIE,LEA NARD J [facility] [facility] Plan of Treatment: Future Appointments (+ [...] 10, 2024 08:30 AM AMBULATORY - MEDICINE [place] [facility] Social History: Smoking Status (Most current) [...] 29, 2023 06:12 PM [facility] Tobacco Use History This section includes a history of the smoking, or tobacco-related health factors, that were collected on or before the date of the Encounter. The data comes from the [place] facility where the Encounter took place. Date/Time Smoking Status/Tobacco Use Comment F acility Oct 29, 2023 06:12 PM VA-TOBACCO QUIT 15 YRS OR [facility] Aug 23, 2019 09:07 AM [facility]AC[facility] Aug 23, 2019 09:07 AM [place]-TO[place]ACCO QUIT 15 YRS OR MORE [facility] WSN [facility] Jun 28, 2018 10:50 AM [facility]BACCO [facility] Jun 28, 2018 10:50 AM [place]-TOBACCO QUIT 15 YRS OR MORE [facility] WSTRN [facility] Oct 14, 2017 09:20 AM QUIT TOBACCO USE > 7 YEARS AGO [facility] Oct 05, 2016 01:02 PM QUIT TOBACCO USE > 7 YE[facility] A[facility] Advance Directives: All historical and current [...] Nov 16, 2023 ADVANCE DIRECTIVE MARC METZGER [facility] Encounter Notes: All associated encounter notes [...] 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 Lumbosacral radiculopathy 4. Multiple renal cysts [...] BY MOUTH ONCE ACTIVE DAILY 14) Non-VA [id number] G 30D INH 1 ACTIVE INHALATION BY [...] PRN /alba/ Vivi Decker OD Fee Basis Freight Separator Signed: 02/10/2024 10:17 for YUE GILLIS OPTOMETRY STUDENT /filippo Decker OD Fee Basis Freight Separator Cosigned: 02/10/2024 10:17 02/10/2024 ADDENDUM STATUS: COMPLETED I reviewed all findings with the commodities trader. I performed the slit lamp exam. No overt signs of dry eyes so will treat for allergic conjunctivitis. Progress note reviewed and edited as needed. I established the plan of care and educated the patient about his conditions. Pt deferred receiving a list of current medications /alba/ Vivi Decker OD Fee Basis Freight Separator Signed: 02/10/2024 10:18 VIVI DECKER [place] [facility]
--- OUTSIDE RECORDS SUMMARY | 2024-10-29 09:46 | XMS_ITS | Clinical Summary ---
Author Organization Patient Business Ser [facility] Address [address] [place] [address] Care Team Providers Care Hose Stripper Name Role Phone Grabiel Kasper MD Primary [...] :Chronic obstructive pulmonary disease, unspecified COPD type (CMS/HCC V24, CMS/HCC V28) Inhale 1 puff by mouth 1 (one) [...] osteoarthritis of left knee 10/06/2024 Malignant melanoma ([facility] V24, [facility] V28) Overview (10/06/2024): Left inner ear; Following [...] 1 mild COPD by GOLD cl assification ([facility] V24, [facility] V28) 04/28/2022 Overview (04/13/2024): Last Assessment [...] meantime he should let him know his advanced manager regarding the left- sided chest pain. I [...] side of the heart. Cerebrovascular accident (CVA) ([facility] V24, CMS /[facility] V28) 09/17/2021 Benign prostatic hyperplasia with [...] 11/18 Spinal stenosis, lumbar 02/26/2017 Atrial fibrillation ([facility] V24, [facility] V28) 0 11/20/2015 Assessment & Plan (10/06/2024 11:49 AM EDT): Continue cardiology follow-up. Continue Cardizem 180 mg daily and Xarelto 20 mg daily Orders: CBC and differential; Future Seizure disorder ([facility] V24, [facility] V28) 10/2015 Assessment & Plan (10/06/2024 11:49 AM EDT): Continue neurology follow-up. Continue Keppra 750 mg twice daily DDD (degenerative disc disease), lumbar 10/30/19 16 Gallstone 03/09/2013 Eczematous dermatitis 10/14/2012 Protein S deficiency ([facility] V24) 07/05/2009 Assessment & Plan (10/06/2024 11:49 AM EDT): Continue Xarelto 20 mg daily Essential hypertension, benign 01/11/2006 Assessment & Plan (10/06/2024 11:49 AM EDT): Blood pressure is stable. Continue Cardizem 180 mg daily Orders: Comprehensive metabolic panel; Future Transient cerebral ischemia 11/16/2005 Overview (04/13/2024): Carotid US Mri normal 1997;p <50% 2011 Obesity (BMI 30.0-34.9) 11/16/2005 Hepatitis C, chronic ([facility]/HCC V24, CMS/HCC V28) 11/16/2005 Overview (04/13/2024): Genotype 1A. Hearing loss 11/16/2005 Resolved Problems Problem Noted Date Diagnosed Date Resolved Date Diverticulitis of colon without hemorrhage 11/16/2005 10/06/2024 Encounters Date Type Department Care Team Description 10/06/2024 10:45 AM EDT - 10/06/2024 11:59 PM EDT Hospital Encounter [address] [phone] Chronic pain of left knee Discharge Disposition: Home or Self Care 10/06/2024 10:40 AM EDT - 10/06/2024 11:59 PM EDT Hospital Encounter [address] [phone] Other constipation Discharge Disposition: Home or Self Care 10/06/2024 9:45 AM EDT Office Visit Adult Medicine [address] [phone] Grabiel Kasper MD Longstanding persistent atrial fibrillation ([facility]/HCC V24, CMS/HCC V28) (Primary Dx); Chronic coronary microvascular dysfunction; Chronic venous insufficiency; Essential hypertension, benign; Protein S deficiency (CMS/HCC V24); Major depressive disorder in partial remission, unspecified whether recurrent ([facility]/HCC V24); Stage 1 mild COPD by GOLD classification (CMS/HCC V24, CMS/HCC V28); Benign prostatic hyperplasia with urinary frequency; Seizure disorder (CMS/HCC V24, CMS/HCC V28); Discoloration and thickening of nails both feet; Chronic pain of left knee; Other constipation from Last 3 Months Immunizations Name Administration Dates Next Due COVID-19 (Pfizer/Comirnaty) 12yo and older 04/14/2023 H1N1 Inj Preservative Free 09/23/2009 Hepatitis A Adult (Havrix; V aqta) 19yo and older 05/19/2017,10/08/2016 Hepatitis A-Hepatitis B Adul t (Twinrix) 18yo and older 05/19/2017,11/09/2016,10/08/2016 Hepatitis B (Bpwmdhk-I-Riwiq , Recombivax HB-Adult) 19yo and older 05/19/2017,11/09/2016,10/08/2016 [...] Surgery Date Site/Laterality Comments KNEE ARTHROPLASTY PROCEDURE: [place] ARTHRS KNEE ABRASION ARTHRP/RADIOLOGY CLERK DRLG/MICROFX; COMMENT: x 2 left SHOULDER ARTHROSCOPY PROCEDURE: [place] SURGICAL ARTHROSCOPY SHOULDER W/LSS&RESCJ ADS HERNIA REPAIR 2004 PROCEDURE: REPAIR UMBILICAL HERNIA OTHER SURGICAL HISTORY PROCEDURE: [place] BIOPSY LIVER NEEDLE PERCUTANEOUS HIP ARTHROPLASTY 05/2007 [...] of hemorrhage) Acquired hemolytic anemia, u nspecified ([facility] V24, [facility] V28) age 29 DX:Acquired hemolytic anemi a, unspecified (HCC); COMMENT: Resolved - 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 Unspecified transient cerebr al ischemia 1997 DX:Unspecified transient cer ebral ischemia; COMMENT: Carotid US Mri normal 1997 Essential hypertension, benign 01/11/2006 D X:Essential hypertension, benign Chronic bronchitis ([facility]/HCC V24, [facility] V28) 09/23/2009 DX:Chronic bronchitis (HCC) Fibrosis of liver DX:Fibrosis of liver; COMMENT: 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 Chest pain, atypical DX:Chest pa in, atypical; COMMENT: admit to [facility]; neg stress MIBI Lab test negative for [...] Care Team (Late st Contact Info) Description 10/31/2024 11:00 AM EDT Evaluation Outpatient Rehabilitation [address] [phone] Lonnie Mackey, PT [address] [place] [address] 10/31/2024 2:00 PM EDT Office Visit Gastroenterology - [address] [phone] Isabel Schmitt, EYELET MAKER [address] [address] 11/20/2024 9:30 AM EDT Office Visit Pulmonolgy - [place] 175 [facility] [address] [place] [phone] Liza Luis MD 175 [facility] [address] [place] [address] 12/21/2024 8:30 AM EDT Consult Orthopedic Surgery - [place] [address] [phone] Dank Rose DPRayne [address] [address] 02/05/2025 9:00 AM EDT Office Visit Adult Medicine [facility] [address] [place] [phone] Grabiel Kasper MD [address] [place] [address] Health Maintenance Due Date Last Done Comments [...] age to complete this topic Meningococcal B Vaccine Aged Out No l onger eligible based on patient's age to complete [...] 8:54 AM EDT Longstanding persistent atrial fibrillation (CMS/HCC V24, CMS/HCC V28) LIPID PANEL WITH REFLEX TO DIRECT LDL Routine 10/09/2024 8:54 AM EDT Chronic coronary microvascular dysfunction COMPREHENSIVE METABOLIC PANEL Routine 10/09/2024 8:54 AM EDT Essential hypertension, benign THYROID STIMULATING HORMONE WITH REFLEX TO FREE T4 AND FREE T3 Routine 10/09/2024 8:54 AM EDT Other constipation CBC AND DIFFERENTIAL Routine 10/09/2024 8:54 AM EDT Longstanding persistent atrial fibrillation (CMS/HCC V24, CMS/HCC V28) XR ABDOMEN 1 VIEW Routine 10/06/2024 11: 08 AM EDT Other constipation XR KNEE 4+ VIEWS LEFT Routine 10/06/2024 11:08 AM EDT Chronic pain of left knee XR CHEST 2 VIEWS Routine 08/02/2024 8:44 AM EST from Last 3 Months Results * Thyroid stimulating hormone with reflex to free t4 and free t3 (10/09/2024 8:54 AM EDT) Pathologist [facility] TSH 2.25 0.40 - 4.00 mcIU/mL LAB CHEMISTRY METHOD 10/09/2024 2:45 PM EDT [facility] Blood Venous blood specimen / Unknown Venipuncture / Unknown 10/09/2024 8:54 AM EDT 10/09/2024 8:54 AM EDT Grabiel Kasper MD LAB BLOOD ORDERA BLES Final Result [facility] [address] [place] [address], [place] [phone] * Lipid panel with reflex to direct LDL (10/09/2024 8:54 AM EDT) Pathologist [facility] Cholesterol 117 0 - 200 mg/dL LAB CHEMISTRY METHOD 10/09/2024 2:00 PM EDT [facility] Triglycerides 92 0 - 150 mg/dL LAB CHEMISTRY METHOD 10/09/2024 2:00 PM EDT [facility] HDL 45 >=40 mg/dL LAB CHEMISTRY METHOD 10/09/2024 2:00 PM EDT [facility] LDL Calculated 54 0 - 100 mg/dL LAB CHEMISTRY METHOD 10/09/2024 2:00 PM EDT [facility] VLDL Cholesterol Gabriele 18.4 mg/dL LAB CHEMISTRY METHOD 10/09/2024 2:00 PM EDT [facility] Non HDL Chol. (LDL+VLDL) 72 <145 mg/dL LAB CHEMISTRY METHOD 10/09/2024 2:00 PM EDT [facility] Chol/HDL Ratio 2.6 0.0 - 4.4 LAB CHEMISTRY METHOD 10/09/2024 2:00 PM EDT [facility] Blood Venous blood specimen / Unknown Venipuncture / Unknown 10/09/2024 8:54 AM EDT 10/09/2024 8:54 AM EDT Grabiel Kasper MD LAB BLOOD ORDERA BLES Final Result [facility] [address] [place] [address], * (ABNORMAL) CBC auto differential (10/09/2024 8:54 AM EDT) WBC 6.7 4.8 - 10.8 K/mcL LAB HEMETOLOGY METHOD 10/09/2024 10:40 AM T [facility] RBC 4.30(L) 4.50 - 5.50 M/mcL LAB HEMETOLOGY METHOD 10/09/2024 10:40 AM [facility] Hemoglobin 13.8 13.5 - 17.5 g/dL LAB HEMETOLOGY METHOD 10/09/2024 10:40 AM [facility] Hematocrit 41.3(L) 42.0 - 54.0 % LAB HEMETOLOGY METHOD 10/09/2024 10:40 AM T [facility] MCV 95.2 79.0 - 98.0 FL LAB HEMETOLOGY METHOD 10/09/2024 10:40 AM EDT [facility] MCH 31.8 27.0 - 32.0 pcg LAB HEMETOLOGY METHOD 10/09/2024 10:40 AM [facility] MCHC 33.4 32.0 - 37.0 g/dL LAB HEMETOLOGY METHOD 10/09/2024 10:40 AM [facility] RDW 13.6 11.0 - 15.0 % LAB HEMETOLOGY METHOD 10/09/2024 10:40 AM [facility] Platelets 221 130 - 400 K/mcL LAB HEMETOLOGY METHOD 10/09/2024 10:40 AM [facility] MPV 9.7 7.0 - 11.0 FL LAB HEMETOLOGY METHOD 10/09/2024 10:40 AM [facility] NRBC 0.0 <1.0 % LAB HEMETOLOGY METHOD 10/09/2024 10:40 AM [facility] NRBC Absolute 0.00 <0.10 K/mcL LAB HEMETOLOGY METHOD 10/09/2024 10:40 AM [facility] Neutrophils Relative 74.4 % LAB HEMETOLOGY METHOD 10/09/2024 10:40 AM [facility] Lymphocytes Relative 10.4 % LAB HEMETOLOGY METHOD 10/09/2024 10:40 AM [facility] Monocytes Relative 9.1 % LAB HEMETOLOGY METHOD 10/09/2024 10:40 AM [facility] Eosinophils Relative 5.5 % LAB HEMETOLOGY METHOD 10/09/2024 10:40 AM [facility] Basophils Relative 0.3 % LAB HEMETOLOGY METHOD 10/09/2024 10:40 AM [facility] Immature Granulocytes Relative 0.3 % LAB HEMETOLOGY METHOD 10/09/2024 10:40 AM [facility] Neutrophils Absolute 5.00 1.50 - 7.00 K/mcL LAB HEMETOLOGY METHOD 10/09/2024 10:40 AM [facility] Lymphocytes Absolute 0.70(L) 1.00 - 5.00 K/mcL LAB HEMETOLOGY METHOD 10/09/2024 10:40 AM [facility] Monocytes Absolute 0.61 0.20 - 1.00 K/mcL LAB HEMETOLOGY METHOD 10/09/2024 10:40 AM EDT [facility] Eosinophils Absolute 0.37 0.00 - 0.50 K/[facility] LAB HEMETOLOGY METHOD 10/09/2024 10:40 AM EDT [facility] Basophils Absolute 0.02 0.00 - 0.20 K/mcL LAB HEMETOLOGY METHOD 10/09/2024 10:40 AM EDT [facility] Immature Granulocytes Absolute 0.02 0.00 - 0.03 K/[facility] LAB HEMETOLOGY METHOD 10/09/2024 10:40 AM T [facility] Blood Venous blood specimen / Unknown Venipuncture / Unknown 10/09/2024 8:54 AM EDT 10/09/2024 8:54 AM EDT Grabiel Kasper MD LAB BLOOD ORDERA BLES Final Result [facility] [address] [place] [address], * (ABNORMAL) Comprehensive metabolic panel (10/09/2024 8:54 AM EDT) Sodium 137 133 - 145 mmol/L LAB CHEMISTRY METHOD 10/09/2024 2:00 PM [facility] Potassium 4.0 3.5 - 5.5 mmol/L LAB CHEMISTRY METHOD 10/09/2024 2:00 PM [facility] Chloride 105 96 - 110 mmol/L LAB CHEMISTRY METHOD 10/09/2024 2:00 PM [facility] CO2 25 21 - 32 mmol/L LAB CHEMISTRY METHOD 10/09/2024 2:00 PM [facility] Anion Gap 7 3 - 11 LAB CHEMISTRY METHOD 10/09/2024 2:00 PM [facility] Glucose 109(H) 70 - 100 mg/dL LAB CHEMISTRY METHOD 10/09/2024 2:00 PM [facility] BUN 12 5 - 25 mg/dL LAB CHEMISTRY METHOD 10/09/2024 2:00 PM [facility] Creatinine 0.80 0.70 - 1.30 mg/dL LAB CHEMISTRY METHOD 10/09/2024 2:00 PM [facility] eGFR 88 >=60 mL/min/1. 73m2 LAB CHEMISTRY METHOD 10/09/2024 2:00 PM [facility] Comment:Calculation based on the??Chronic Kidney Disease Epidemiology Collaboration (CKD-EPI) equation refit??without adjustment for race. BUN/Creatinine Ratio 15.0 LAB CHEMISTRY METHOD 10/09/2024 2:00 PM [facility] Calcium 9.0 8.5 - 10.5 mg/dL LAB CHEMISTRY METHOD 10/09/2024 2:00 PM [facility] AST (SGOT) 17 10 - 42 unit/L LAB CHEMISTRY METHOD 10/09/2024 2:00 PM [facility] ALT (SGPT) 20 10 - 60 unit/L LAB CHEMISTRY METHOD 10/09/2024 2:00 PM [facility] Alkaline Phosphatase 60 42 - 121 unit/L LAB CHEMISTRY METHOD 10/09/2024 2:00 PM [facility] Total Protein 6.8 6.0 - 8.0 g/dL LAB CHEMISTRY METHOD 10/09/2024 2:00 PM [facility] Albumin 3.7 3.2 - 5.0 g/dL LAB CHEMISTRY METHOD 10/09/2024 2:00 PM [facility] Total Bilirubin 0.6 0.0 - 1.4 mg/dL LAB CHEMISTRY METHOD 10/09/2024 2:00 PM [facility] Blood Venous blood specimen / Unknown Venipuncture / Unknown 10/09/2024 8:54 AM EDT 10/09/2024 8:54 AM EDT Grabiel Kasper MD LAB BLOOD ORDERA BLES Final Result [facility] [address] [place] [address], * XR Abdomen 1 View (10/06/2024 11:08 [...] Signed Date: 10/06/2024 12:05 ET Workstation ID: [id number] Transcribed By: Self Edit Transcribed Date: 10/06/2024 [...] Signed Date: 10/06/2024 12:05 ET Workstation ID: [id number] Transcribed By: Self Edit Transcribed Date: 10/06/2024 11:58 ET Grabiel Kasper MD IMG XR PROCEDURE S Final Result * XR Knee 4+ Views Left (10/06/2024 11:08 AM EDT) Anatomical Region Laterality Modality Lower Extremities, Knee Left Radiogra phic Imaging 10/06/2024 11:5 0 AM EDT Impressions 10/06/2024 11:52 AM EDT Mild degenerative changes in the medial femorotibial and patellofemoral compartments. -------- FINAL REPORT -------- Dictated By: Andrez Nascimento Dictated Date: 10/06/2024 11:50 ET Assigned Physician: Andrez Nascimento Reviewed and Electronically Signed By: Andrez Nascimento Signed Date: 10/06/2024 11:52 ET Workstation ID: [id number] Transcribed By: Self Edit Transcribed Date: 10/06/2024 [...] level of the tibial tuberosity may reflect Sandwich-Schlatter's disease. ??No suprapatellar joint effusion. Procedure Note Andrez Nascimento MD - 10/06/2024 XR KNEE 4+ VIEWS LEFT Reason: left knee pain Comparison: None FINDINGS: Mild degenerative changes of the medial femorotibial compartment withjoint space narrowing and small marginal osteophytes. Posterior patellarspur. Faint calcification of the lateral meniscus. Lateral translationof the patella. Hypertrophic changes at the level of the tibialtuberosity may reflect Sandwich-Schlatter's disease. No suprapatellar jointeffusion. IMPRESSION: Mild degenerative changes in the medial femorotibial and patellofemoralcompartments. -------- FINAL REPORT -------- Dictated By: Andrez Nascimento Dictated Date: 10/06/2024 11:50 ET Assigned Physician: Andrez Nascimento Reviewed and Electronically Signed By: Andrez Nascimento Signed Date: 10/06/2024 11:52 ET Workstation ID: [id number] Transcribed By: Self Edit Transcribed Date: 10/06/2024 11:50 ET Grabiel SRINIVASAN XR PROCEDURE S Final Result * XR Chest 2 Views (08/02/2024 8:44 AM EST) Anatomical Region Laterality Modality Body Radiographic Amarilys ging us Historical Provider MD SRINIVASAN XR PROCEDURES Final R esult from Last 3 Months Insurance [employer] Care Teams Hose Stripper Relationship Specialty Start Date End Date Grabiel Kasper MD [address] [facility], [place] PCP - General Internal Medicine 02/02/22
[2024-10-29] MEDS: Sodium Phosphate,Mono-Dibasic 133 ML ENEMA PR (09:59)
--- NOTE | 2024-10-29 10:37 | PC.NURSE ---
flehelga enema/rectal exam performed/completed by . +effect w/ enema. pt assisted back into bed. call herrera placed within reach.
[2024-10-29 11:09] VITALS: BP 130/61; PULSE 55; RESP 18; TEMP 36.4; O2SAT 94
== END 2024-10-29 11:16 | disposition home or self-care (01) ==
PROVIDERS: Absent Provider Family Medicine; Emergency Provider Emergency Medicine
DX: K59.00 Constipation, unspecified (principal); I10 Essential (primary) hypertension; I48.0 Paroxysmal atrial fibrillation; Z79.01 Long term (current) use of anticoagulants; Z79.899 Other long term (current) drug therapy
CPT/HCPCS: 99284

== ENCOUNTER 2024-11-24 08:59 | Outpatient (AMB) | payer OTHER, SELFPAY ==
--- OUTSIDE RECORDS SUMMARY | 2024-11-24 09:12 | XMS_ITS | Encounter Summary ---
Author Organization [facility] Address [address] [place] [address] Care Team Providers Care Therapy Site Coordinator Name Role Phone Grabiel Kasper MD Primary Care Pr ovid Reason for Referral * Other Medical (Routine) - Authorized Specialty Diagnoses / Procedures Referred By Contac t Referred To Contact Sleep Medicine Diagnoses TERESA (obstructive sleep apnea) Procedures Home sleep test Liza Luis MD [address] [address] Phone: tel: fax: Sleep Medicine Services [address] [address] Phone: tel: fax: Referral ID Status Reason Start Date Expiration Date V isits Requested Visits Authorized [id number] Authorized 11/20/2024 11/20/2025 1 1 Reason for Visit * Reason Comments Follow-up Encounter Details Date Type Department Care Team ([facility] st Contact Info) Description 11/20/2024 9:30 AM EDT [facility] [address] [phone] Liza Luis MD [address] [address] Chronic obstructive pulmonary disease, unspecified COPD type ([facility] V24, [facility] V28) (Primary Dx); ILD (interstitial lung disease) ([facility] V24, [facility] V28); Ex-smoker; TERESA (obstructive sleep apnea) Social History Tobacco Use Types Packs/Day Years [...] on file documented as of this encounter Last Filed Vital Signs Vital Sign Reading Time Taken Comments Blood Pressure 122/51 11/20/2024 9:12 AM EDT Pulse 70 11/20/2024 9:12 AM EDT Temperature 35.7 ??C (96.2 ??F) 11/20/2024 9:12 AM ED T Respiratory Rate 16 11/20/2024 9:12 AM EDT Oxygen Saturation 96% 11/20/2024 9:12 AM EDT Inhaled Oxygen Concentration - - Weight 97.2 kg (214 lb 3.2 oz) 11/20/2024 9:12 A M EDT Height 177.8 cm (5' 10 ) 11/20/2024 9:12 AM EDT Body Mass Index 30.73 11/20/2024 9:12 AM EDT documented in this encounter Progress Notes * Liza Luis MD - 11/20/2024 9:30 AM EDT ADULT PULMONARY Followup CHIEF COMPLAINT or REASON FOR CONSULTATION: Follow-up Last seen 05/23/2024. Prior to that was seen by Schedule Supervisor, Dr. Randolph Guadarrama, 03/23/23. HISTORY OF PRESENT ILLNESS: Accompanied by daughter, Patricia. Rm Palumbo Sr. is a 84 y.o. old, ex smoker @ 60+ ppy, male h/o COPD, ILD, TERESA (refuses treatment), COVID infection (09/2023), CAD, HTN, atrial fibrillation (Xarelto), ascending aortic aneurysm (4.1 cm), PVD, HLD, CVA, protein S deficiency, chronic hepatitis C, BPH, seizure disorder, anxiety. Per EMR, patient is in need of a CABG but declined. COVID vaccinations: Moderna. Ex smoker: teen to 50s, 2 to 3 pack a day, @ 60+ ppy. No marijuana or recreational drug use. Occupation: [employer] and [employer] work for [employer] w/ asbestosis exposure. [place] for 1 year(No agent orange exposure). NO TB exposure. Pets: none. . FH: Sister lung cancer. Ridge Sleepiness Scale Sitting and reading: Would never doze Watching TV: Would never doze Sitting, inactive in a public place (e.g. a theatre or a meeting): Would never doze As a passenger in a car for an hour without a break: Would never doze Lying down to rest in the afternoon when circumstances permit: Moderate chance of dozing Sitting and talking to someone: Would never doze Sitting quietly after a lunch without alcohol: Would never doze In a car, while stopped for a few minutes in traffic: Would never doze Total score: 2 Since last seen: -Patient w/problem with his Atrial fibrillation, interest w/ proceed with cpap treatment. - Chest CT 06/09/2024 showed no new change. Subpleural interstitial abnormality in the upper lobe and bilateral lower lobe (stable), peribronchial thickening, no lung nodule, no infiltrate, ascendingaorta 4.1 cm, and no gross mediastinal hilar adenopathy. -Not been Hospitalized: REVIEW OF SYSTEMS: Review of Systems Constitutional: Negative for chills, decreased appetite, diaphoresis, fever, malaise/fatigue and night sweats. HENT: Negative for congestion. Cardiovascular: Positive for dyspnea on exertion. Negative for chest pain, irregular heartbeat and leg swelling. Respiratory: Positive for cough. Negative for hemoptysis, shortness of breath, snoring, sputum production and wheezing. Rare dry cough. Endocrine: Negative for cold intolerance and heat intolerance. Skin: Negative for rash. Gastrointestinal: Negative for abdominal pain, constipation, diarrhea and dysphagia. Genitourinary: Negative for dysuria. ALLERGIES: Allergies Allergen Reactions Hydrocodone-Acetaminophen Anaphylaxis and Anxiety Piroxicam Hives Rofecoxib Anaphylaxis Phenacetin does npt recall RXN Codeine Other Wheezing Penicillins does not recall RXN Hydrocodone Anxiety ACTIVE MEDICATIONS: Outpatient Medications Marked as Taking for the 11/20/24 encounter (Office Visit) with Liza Luis MD Medication Sig Dispense Refill atorvastatin (LIPITOR) 20 mg tablet Take 1 tablet (20 mg total) by mouth at bedtime. 90 each 1 citalopram (CeleXA) 40 mg tablet TAKE 1 TABLET BY MOUTH DAILY 90 tablet 1 diclofenac (VOLTAREN) 1 % topical gel Apply 1 g topically 3 (three) times a day. 90 g 2 dilTIAZem CD (CARDIZEM CD) 180 mg 24 hr capsule Take 1 capsule (180 mg total) by mouth 1 (one) timeeach day. 90 each 1 fluticasone propionate (FLONASE) 50 mcg/actuation nasal spray Administer 1 spray into each nostril 1 (one) time each day. furosemide (LASIX) 20 mg tablet Take 1 tablet (20 mg total) by mouth 1 (one) time each day if needed (edema). 90 tablet 1 lactulose (CHRONULAC) solution Take 30 mL (20 g total) by mouth 2 (two) times a day. 5400 mL 0 levETIRAcetam (KEPPRA) 1,000 mg tablet Take 1 tablet (1,000 mg total) by mouth 2 (two) times a day. loratadine (CLARITIN) 10 mg tablet Take 1 tablet (10 mg total) by mouth 1 (one) time each day. nitroglycerin (NITROSTAT) 0.[address] 1 tablet (0.3 mg total) under the tongue every 5 (five) minutes if needed for chest pain. 90 tablet 0 Refresh Tears 0.5 % ophthalmic solution tamsulosin (FLOMAX) 0.4 mg 24 hr capsule TAKE 1 CAPSULE BY MOUTH TWO TIMES A DAY 30 MINUTES AFTER SAME MEAL EACH DAY 180 capsule 1 topiramate (TOPAMAX) 25 mg tablet Take 1 tablet (25 mg total) by mouth 1 (one) time each day. umeclidinium-vilanteroL (Anoro Ellipta) 62.5-25 mcg/actuation inhaler Inhale 1 puff by mouth 1 (one) time each day. 1 each 11 Xarelto 20 mg tablet Take 1 tablet (20 mg total) by mouth 1 (one) time each day with dinner. PROVIDER ATTESTS THAT THE MEDICATION LIST WAS OBTAINED, REVIEWED AND UPDATED. PAST MEDICAL HISTORY: Patient Active Problem List Diagnosis Date Noted Primary osteoarthritis of left knee 10/06/2024 Malignant melanoma ([facility] V24, [facility] V28) 04/13/2024 Left carpal tunnel syndrome 06/14/2023 Lumbar radiculopathy 06/14/2023 Chronic venous insufficiency 11/18/2022 CAD (coronary artery disease) 10/13/2022 Actinic keratoses 08/20/2022 Stage 1 mild COPD by GOLD classification ([facility] V24, [facility] V28) 04/28/2022 Diffusion capacity of lung (dl), decreased 01/02/2022 Dyspnea on exertion 12/10/2021 Cerebrovascular accident (CVA) ([facility] V24, [facility] V28) 09/17/2021 Benign prostatic hyperplasia with urinary frequency 09/17/2021 Sleep apnea 06/13/2021 Peripheral polyneuropathy 06/13/2021 Multiple renal cysts 06/13/2021 Osteoarthritis of right hip 09/17/2020 Depression 09/11/2020 Carotid artery stenosis 07/19/2019 Neural foraminal stenosis of cervical spine 12/15/2017 Spinal stenosis, lumbar 02/26/2017 Atrial fibrillation ([facility] V24, [facility] V28) 11/20/2015 Seizure disorder ([facility] V24, [facility] V28) 11/20/2015 DDD (degenerative disc disease), lumbar 10/30/2015 Gallstone 03/09/2013 Eczematous dermatitis 10/14/2012 Protein S deficiency ([facility] V24) 07/05/2009 Essential hypertension, benign 01/11/2006 Transient cerebral ischemia 11/16/2005 Obesity (BMI 30.0-34.9) 11/16/2005 Hepatitis C, chronic ([facility] V24, [facility] V28) 11/16/2005 Hearing loss 11/16/2005 Past Surgical History: Procedure Laterality Date HERNIA REPAIR 2004 PROCEDURE: REPAIR UMBILICAL HERNIA HERNIA REPAIR PROCEDURE: LAPAROSCOPY, INGUINAL HERNIA REPAIR HIP ARTHROPLASTY 05/2007 PROCEDURE: HISTORICAL HIP REPLACEMENT KNEE ARTHROPLASTY PROCEDURE: CO ARTHRS KNEE ABRASION ARTHRP/RADIATOR REPAIRER DRLG/MICROFX; COMMENT: x 2 left OTHER SURGICAL HISTORY PROCEDURE: CO BIOPSY LIVER NEEDLE PERCUTANEOUS OTHER SURGICAL HISTORY 11/13/2005 PROCEDURE: COLON CA SCRN NOT HI RSK IND SHOULDER ARTHROSCOPY PROCEDURE: CO SURGICAL ARTHROSCOPY SHOULDER W/LSS&RESCJ ADS Past Surgical History: Procedure Laterality Date HERNIA REPAIR 2004 PROCEDURE: REPAIR UMBILICAL HERNIA HERNIA REPAIR PROCEDURE: LAPAROSCOPY, INGUINAL HERNIA REPAIR HIP ARTHROPLASTY 05/2007 PROCEDURE: HISTORICAL HIP REPLACEMENT KNEE ARTHROPLASTY PROCEDURE: CO ARTHRS KNEE ABRASION ARTHRP/RADIATOR REPAIRER DRLG/MICROFX; COMMENT: x 2 left OTHER SURGICAL HISTORY PROCEDURE: CO BIOPSY LIVER NEEDLE PERCUTANEOUS OTHER SURGICAL HISTORY 11/13/2005 PROCEDURE: COLON CA SCRN NOT HI RSK IND SHOULDER ARTHROSCOPY PROCEDURE: CO SURGICAL ARTHROSCOPY SHOULDER W/LSS&RESCJ ADS FAMILY HISTORY: Family History Problem Relation Name Age of Onset Cataracts Mother Cataracts Father Cataracts Sister Cataracts Brother Breast cancer Sister Cataracts Sister No Known Problems Daughter Devora No Known Problems Daughter No Known Problems Maternal Grandmother No Known Problems Maternal Grandfather No Known Problems Paternal Grandmother No Known Problems Paternal Grandfather Cataracts Brother No Known Problems Son No Known Problems Aunt No Known Problems Uncle No Known Problems Other Blindness Neg Hx Glaucoma Neg Hx Macular degeneration Neg Hx Strabismus Neg Hx SOCIAL HISTORY Social History Socioeconomic History Marital status: Spouse name: Not on file Number of children: Not on file Years of education: Not on file Highest education level: Not on file Occupational History Not on file Tobacco Use Smoking status: Former Current packs/day: 0.00 Types: Cigarettes Quit date: 07/19/1989 Years since quittin.3 Smokeless tobacco: Former Substance and Sexual Activity Alcohol use: Yes Drug use: No Sexual activity: Not on file Other Topics Concern Not on file Social History Narrative Lives with Mod exercise - walking 30 min.day IMMUNIZATION: Immunization History Administered Date(s) Administered COVID-19 (Pfizer/Comirnaty) 12yo and older 04/14/2023, 04/12/2024 H1N1 Inj Preservative Free 09/23/2009 Hepatitis A Adult (Havrix; Vaqta) 19yo and older 10/08/2016, 05/19/2017 Hepatitis A-Hepatitis B Adult (Twinrix) 18yo and older 10/08/2016, 11/09/2016, 05/19/2017 Hepatitis B (Ydydqlk-C-Cyvzc, Recombivax HB-Adult) 19yo and older 10/08/2016, 11/09/2016, 05/19/2017 Influenza Quadravalent, 0.5ml (Fluzone High-dose) 65yo and older 03/08/2021, 04/13/2022 Influenza trivalent, 0.5mL (Fluzone High-dose) 65yo and older 04/02/2016, 04/08/2017, 03/30/2018, 03/31/2019, 04/15/2020, 03/08/2021, 04/13/2022, 03/29/2023, 04/12/2024 Influenza trivalent, with preservative (Fluzone; Afluria) 6mo and older 05/15/2005, 05/20/2006, 05/12/2007, 05/14/2008, 04/17/2009, 04/03/2010, 05/04/2011, 04/05/2012, 03/29/2013, 05/10/2014, 04/29/2015, 03/26/2017, 04/18/2018, 03/19/2019 Influenza, Unspecified 05/12/2005, 05/20/2006, 06/12/2007, 05/14/2008, 04/17/2009, 09/23/2009, 04/03/2010, 05/04/2011, 04/05/2012, 03/29/2013, 05/10/2014, 04/29/2015, 04/03/2016, 07/23/2016, 04/18/2020, 03/27/2023 Moderna SARS-CoV-2 COVID-19, mRNA, LNP-S, preservative free 08/28/2020, 09/25/2020, 05/12/2021, 10/15/2021 Pfizer (ages 12 & older) Bivalent, COVID-19 04/13/2022, 11/16/2022 Pfizer (ages 12 & older) SARS-CoV-2 COVID-19, mRNA, LNP-S, ellen-sucrose, preservative free 10/15/2021 Pneumococcal conjugate 13 valent (Prevnar 13, PCV13) 2mo and older 05/12/2005, 11/19/2013, 11/20/2015, 07/19/2016 Pneumococcal conjugate 20 valent (Prevnar 20, PCV 20) 2mo and older 04/14/2023 Pneumococcal polysaccharide 23 valent (Pneumovax 23) 2yo and older 05/15/2005, 09/05/2013, 09/18/2019 RSV, bivalent, protein subunit RSVpreF, 0.5mL, Preservative Free (ABRYSVO) 60yo and older or 32 through 36 wks of 04/14/2023 RSV, bivalent, protein subunit RSVpreF, 0.5mL, Preservative Free (Arexvy) 60yo and older 04/14/2023 Td Tetanus diptheria (Tdvax) 7yo and older 09/20/2003, 09/20/2003, 05/27/2010 Td, Unspecified 09/20/2003, 05/27/2010 Tdap Tetanus diptheria acellular pertussis (Boostrix; Adacel) 7yo and older 09/21/2012, 10/18/2015,05/15/2023 Zoster Live 07/09/2008, 11/17/2015 Zoster recombinant (Shingrix) 19yo and older 10/14/2017, 12/22/2017, 04/09/2020, 06/07/2020 PHYSICAL EXAM: Visit Vitals BP 122/51 Pulse 70 Temp 35.7 ??C (96.2 ??F) (Temporal) Resp 16 Ht 1.778 m (70 ) Wt 97.2 kg (214 lb 3.2 oz) SpO2 96% BMI 30.73 kg/m?? Smoking Status Former BSA 2.15 m?? Physical Exam Constitutional: Appearance: Normal appearance. HENT: Head: Normocephalic and atraumatic. Nose: No congestion. Eyes: Pupils: Pupils are equal, round, and reactive to light. Cardiovascular: Rate and Rhythm: Normal rate and regular rhythm. Heart sounds: No murmur heard. Pulmonary: Effort: Pulmonary effort is normal. No respiratory distress. Breath sounds: Normal breath sounds. No stridor. No wheezing, rhonchi or rales. Abdominal: General: Bowel sounds are normal. There is no distension. Palpations: Abdomen is soft. Tenderness: There is no abdominal tenderness. Musculoskeletal: Right lower leg: No edema. Left lower leg: No edema. Neurological: Mental Status: He is alert. Diagnostic: CURRENTS ICD-10 PULMONARY DIAGNOSIS 1. Chronic obstructive pulmonary disease, unspecified COPD type ([facility] V24, [facility] V28) 2. ILD (interstitial lung disease) ([facility] V24, [facility] V28) 3. Ex-smoker 4. TERESA (obstructive sleep apnea) ASSESSMENT/PLAN: 1. COPD -Pathophysiology of COPD was discussed. Treatment options of the various inhalers, along with techniques of use, and side effects were discussed. Maintenace of care of obstructive lung disease healthsuch as various vaccinations, smoking cessation & avoidance of chemicals/fumes/inhalants were di scussed. All questions were answered. -Continue with Anoro, 1 puff daily. -Continue albuterol MDI, 2 puff every 6 as needed. 2. Interstitial lung disease, ILD-presumptive pulmonary fibrosis. -Reviewed and discussed CT chest image found on 06/09/2024. -Pathophysiology of ILD-pulmonary fibrosis was discussed. - Continue to observe. No intervention indicated at this time. -Follow-up PFT prior to next visit. 3. Ex-smoker @ 60+ ppy. - Does not qualify for low-dose screening CAT scan. -CT of the chest as above. 4. Asbestosis exposure. -Continue to observe. 5. TERESA. -Pathophysiology, diagnostic, and various treatment options regarding sleep apnea (TERESA/CSA/mixed apnea/OHS) were discussed. Risks and benefits of CPAP/Bipap/iVaps use along with risks of nontreatmentwere discussed. Patient agreed not to drive or operate heavy machinery if he/she should feel sleepy, dry chain puller to a safe part of the road and not resume until fully awake. Both the medical and financial implications of poor compliance with NIPPV were discussed. All issues regarding financial aspects of NIPPV to be addressed w/ DME vendor, and insurance company. All questions were answered. -Patient will like to proceed with Home sleep study and treatment. -Follow up with Grabiel Kasper MD for the other co-morbilities. RETURN TO THE NEXT VISIT: Based on physical exam, symptomatology, tests requested and baseline pulmonary evaluation/disease, I instructed the patient to come back to see me in 3 months for reevaluation after the test has beendone or earlier if the patient needed. Thanks Grabiel Kasper MD for allowing me to have the opportunity to assist in the care of this patient. This chart was generated by the Software [employer] EMR system and [employer] speech recognition software and may contain inherent errors or omissions not intended by the user. Grammatical errors, random word insertions, deletions, pronoun errors and incomplete sentences are occasional consequences of this technologydue to software limitations. Not all errors are caught or corrected. If there are questions or concerns about the content of this note or information contained within the body of this dictation they should be addressed directly with the author for clarification. @ELECSIG@ documented in this encounter Plan of Treatment Upcoming Encounters Date Type Department Care Team (Late st Contact Info) Description 12/05/2024 7:45 AM EDT Hospital Encounter [facility] [address] [place] [phone] Joey Suazo DO [address] [address] 12/08/2024 9:00 AM EDT Evaluation Outpatient Rehabilitation - [address] [phone] Lonnie Mackey, PT 175 [place] [address] 12/15/2024 9:30 AM EDT Office Visit Orthopedics - [address] [phone] Juve Menard PA [address] [place], [place] 12/20/2024 9:00 AM EDT Office Visit Adult Medicine South - [address] [phone] Angela Hernandez PA [address] [place] [address] 12/21/2024 8:30 AM EDT Consult Orthopedic Surgery - [place] [address] 175 [facility] [address] [place] [phone] Dank Rose DPRayne 175 [facility] [address] [place] [address] 02/05/2025 9:00 AM EDT Office Visit Adult Medicine [facility] [address] [place] [phone] Grabiel Kasper MD 444 [place] [address] 02/27/2025 9:00 AM EDT Office Visit Pulmonolgy - [place] 175 [facility] 200 [place] [phone] Liza Luis MD 175 [facility] 200 [place] [address] Scheduled Orders Name Type Priority Associated Diagnoses Orde r Schedule Home sleep test Sleep Center Routine TERESA (obstructive sleep apnea) Expected: 11/20/2024, Expires: 11/20/2025 documented as of this encounter Visit Diagnoses Diagnosis Chronic obstructive pulmonary disease, unspecified COPD type ([facility] V24, [facility] V28)- Primary ILD (interstitial lung disease) ([facility] V24, [facility] V28) Postinflammatory pulmonary fibrosis Ex-smoker Personal history of tobacco use, presenting hazards to health TERESA (obstructive sleep apnea) Obstructive sleep apnea (adult) (pediatric) documented in this encounter Care Teams Therapy Site Coordinator Relationship Specialty Start Date End Date Grabiel Kasper MD [address] [place], [place] PCP - General Internal Medicine 02/02/22 documented as of this encounter
--- OUTSIDE RECORDS SUMMARY | 2024-11-24 09:12 | XMS_ITS | Encounter Summary ---
Author Organization [facility] Address [address] [place] [address] Care Team Providers Care Roller Shop Utility Worker Name Role Phone Grabiel Kasper MD Primary Care Pr ovider Reason for Visit * Reason Onset Date Comments Medication Problem 11/22/2024 Encounter Details Date Type Department Care Team (Late st Contact Info) Description 11/22/2024 Telephone Adult Medicine [address] [phone] Grabiel Kasper MD [address] [place] [id number] Medication Problem Social History Tobacco Use Types Packs/Day Years [...] on file documented as of this encounter Progress Notes * Johanne Cueva RN - 11/22/2024 3:46 PM EDT Called and spoke to pt's daughter Devora. She states she made a comment regarding the amount of medications pt is taking and he latched onto it. They are wondering if there are any medications that could be eliminated. She was informed her would need an appointment in the office to review his medications. Pt has an appointment coming up with Angela Hernandez on 12/20/24 at 9:00 am for a medication review and this can be addressed at that appointment. She is in agreement with this plan. * Nicolasa Cazares - 11/22/2024 3:18 PM EDT Patient requests a call from a nurse about issues that has with his medications, no other info was provided by patient. Patient is aware a return call may be 24- 48 hrs documented in this encounter Plan of Treatment Upcoming Encounters Date Type Department Care Team (Late st Contact Info) Description 12/05/2024 7:45 AM EDT Hospital Encounter [facility] End[facility] [address] [place] [phone] Joey Suazo DO [address] [address] 12/08/2024 9:00 AM EDT Evaluation Outpatient Rehabilitation - [address] [phone] Lonnie Mackey, PT 175 [place] [address] 12/15/2024 9:30 AM EDT Office Visit Orthopedics - [address] [phone] Juve Menard PA [address] [place], [place] 12/20/2024 9:00 AM EDT Office Visit Adult Medicine South - [address] [place] [phone] Angela Hernandez PA [address] [place] [address] 12/21/2024 8:30 AM EDT Consult Orthopedic Surgery - [place] [address] [phone] Dank Rose, DPM [address] [address] 02/05/2025 9:00 AM EDT Office Visit Adult Medicine [facility] [address] [place], [place] [phone] Grabiel Kasper MD 444 [place] [address] 02/27/2025 9:00 AM EDT Office Visit Pulmonolgy - [place] [address] [phone] Liza Luis MD [address] [address] documented as of this encounter Visit Diagnoses Not on filedocumented in this encounter Care Teams Roller Shop Utility Worker Relationship Specialty Start Date End Date Grabiel Kasper MD [address] [place], [place] PCP - General Internal Medicine 02/02/22 documented as of this encounter
--- OUTSIDE RECORDS SUMMARY | 2024-11-24 09:12 | XMS_ITS ---
Author Organization [facility] Address [address] [place] [address] Care Team Providers Care Rotary Cutter Feeder Name Role Phone Grabiel Kasper MD Primary Care Pr ovider Active Problems Problem Noted Date Diagnosed Date Primary osteoarthritis of left knee 10/06/2024 Malignant melanoma ([facility] V24, [facility] V28) Overview (10/06/2024): [...] 1 mild COPD by GOLD cl assification ([facility] V24, [facility] V28) 04/28/2022 Overview [...] meantime he should let him know his machine learning intern regarding the left- sided chest pain. I [...] side of the heart. Cerebrovascular accident (CVA) ([facility] V24, [facility] V28) 09/17/2021 [...] 11/18 Spinal stenosis, lumbar 02/26/2017 Atrial fibrillation ([facility] V24, [facility] V28) 0 11/20/2015 Assessment & Plan (10/06/2024 11:49 AM EDT): Continue cardiology follow-up. Continue Cardizem 180 mg daily and Xarelto 20 mg daily Orders: CBC and differential; Future Seizure disorder ([facility] V24, [facility] V28) 10/2015 Assessment & Plan (10/06/2024 11:49 AM EDT): Continue neurology follow-up. Continue Keppra 750 mg twice daily DDD (degenerative disc disease), lumbar 10/30/19 16 Gallstone 03/09/2013 Eczematous dermatitis 10/14/2012 Protein S deficiency ([facility] V24) 07/05/2009 Assessment & Plan (10/06/2024 11:49 AM EDT): Continue Xarelto 20 mg daily Essential hypertension, benign 01/11/2006 Assessment & Plan (10/06/2024 11:49 AM EDT): Blood pressure is stable. Continue Cardizem 180 mg daily Orders: Comprehensive metabolic panel; Future Transient cerebral ischemia 11/16/2005 Overview (04/13/2024): Carotid US Mri normal 1997;p <50% 2011 Obesity (BMI 30.0-34.9) 11/16/2005 Hepatitis C, chronic ([facility] V24, [facility] V28) 11/16/2005 Overview (04/13/2024): Genotype 1A. Hearing loss 11/16/2005 Current Oncology Plans No current plan information found. Past Plans No past plan information found. Radiation Treatments * No radiation treatments are documented for this patient in [facility]. Treatments may have been administered in another system. Lifetime Dose Tracking * Chemical Lifetime Dose Automatic Entry Manual Entr y CTDIvol 16.48 mGy 16.48 mGy 0 mGy Resolved Problems Problem Noted Date Diagnosed Date Resolved Date Diverticulitis of colon without hemorrhage 11/16/2005 10/06/2024
--- OUTSIDE RECORDS SUMMARY | 2024-11-24 09:13 | XMS_ITS | Continuity of Care Document ---
Author Name [facility] Organization [facility] Care Team Providers Care Carbon Printer Name Role Phone [facility] Unavailable Unavailable Problems Combined list of problems from Department of Defense and Veterans Affairs facilities. It does not include entries that were removed or entered in error. Problem Status Onset Date Problem Type Date of Resolution Comments Source Atrial fibrillation Active Condition Oct 05, 2016 Entered By: MALGORZATA CREWS Comment: jennifer. cardiology [facility]. h/o cardioversion [facility] Benign essential hypertension Active Condition [facility] Benign Prostatic Hypertrophy without Outflow Obstruction (SCT [id number]) Active Condition [facility] Cerebral atrophy Active Condition Oct 05, 2016 Entered By: MALGORZATA CREWS Comment: no h/o head injury [facility] Chronic obstructive pulmonary disease Active Condition Nov 15 Entered By: POLLY CLIFFORD Comment: sees [facility] head of history [facility] Cognitive disorder Active Condition Oct 05, 2016 Entered By: MALGORZATA CREWS Comment: 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 [...] DAILY ORAL ACTIVE JERRY NAVARRO A 2016 [facility] ALBUTEROL 90MCG/ACTUA T (CFC-F) INHL,ORAL,8 .5GM DOSE COUNTER INHALE 2 PUFFS BY MOUTH EVERY 4 HOURS NEEDED RESPIR ATORY (INHAL ATION) ACTIVE 2016 [facility] ATORVASTATI N CA 40MG TAB TAKE ONE-HALF TABLET BY MOUTH AT BEDTIME ORAL ACTIVE FURCOLO,T ROQUE 2023 [facility] carboxymeth ylcel 0.5% EYE DROP [2 X15ML] INSTILL 1 DROP INTO EACH EYE FOUR TIMES A DAY 03/16/2024 [id number] VIVI WARNER 2023 15 [facility] CARBOXYMETH YLCELLULOSE NA 0.5% SOLN,OPH INSTILL 1 DROP INTO EACH EYE FOUR TIMES A DAY OPHTHA LMIC 03/16/2024 [id number] VIVI WARNER 2022 15 [facility] CITALOPRAM HYDROBROMID E 40MG TAB TAKE ONE TABLET BY MOUTH ONCE DAILY ORAL ACTIVE FURCOLO,T ROQUE 2023 [facility] DILTIAZEM HCL 90MG 12HR CAP,SA TAKE 2 CAPSULES BY MOUTH DAILY ORAL ACTIVE ELEONORA2016 [facility] EYELID CLEANSER,EY E SCRUB PAD USE 1 PAD TOPICALL Y ONCE DAILY TOPICA L ACTIVE 07/11/2025 [id number] 4 Rayne MARMOLEJO 2023 90 [facility] FUROSEMIDE 20MG TAB TAKE ONE TABLET BY MOUTH ONCE DAILY NEEDED ORAL ACTIVE FURCOLO,T ROQUE 2023 [facility] KETOTIFEN 0.025% SOLN,OPH INSTILL 1 DROP INTO EACH EYE EVERY 12 HOURS FOR ALLERGIC CONJUNCT IVITIS (IF YOU WEAR CONTACT LENSES, WAIT 10 MINUTES BEFORE INSERTIN G LENSES) OPHTHA LMIC ACTIVE 07/11/2025 [id number] Rayne MARMOLEJO 2023 15 [facility] KETOTIFEN 0.025% SOLN,OPH INSTILL 1 DROP INTO EACH EYE EVERY 12 HOURS FOR ALLERGIC CONJUNCT IVITIS (IF YOU WEAR CONTACT LENSES, WAIT 10 MINUTES BEFORE INSERTIN G LENSES) OPHTHA LMIC DISCONT INUED 01/21/2025 [id number] FURCOLO,T ROQUE 2023 15 [facility] KETOTIFEN 0.025% SOLN,OPH INSTILL 1 DROP INTO EACH EYE EVERY 12 HOURS FOR ALLERGIC CONJUNCT IVITIS (IF YOU WEAR CONTACT LENSES, WAIT 10 MINUTES BEFORE INSERTIN G LENSES) OPHTHA LMIC DISCONT INUED 11/17/2023 [id number] Helena KOENIG 2022 15 [facility] LEVETIRACET AM 500MG TAB TAKE TWO TABLETS BY MOUTH TWICE DAILY ORAL ACTIVE FURCOLO,T ROQUE 2023 [facility] MULTIVITAMI [...] FOR DRY EYE OPHTHA LMIC ACTIVE 07/11/2025 [id number] Rayne MARMOLEJO 2024 45 [facility] PREDNISOLON E ACETATE 1% SUSP,OPH INSTILL 1 DROP INTO EACH EYE TWICE DAILY INFLAMMA TORY DRY EYE SHAKE WELL BEFORE USING OPHTHA LMIC ACTIVE 07/11/2025 [id number] Rayne MARMOLEJO ICHELE 2023 5 [facility] PSYLLIUM PWDR,ORAL TAKE 1 TEASPOON FUL BY MOUTH ONCE DAILY ORAL ACTIVE FURCOLO,T ROQUE 2023 [facility] RIVAROXABAN 20MG TAB TAKE ONE TABLET BY MOUTH DAILY ORAL ACTIVE MEREDITH CREWS TH M 2016 [facility] SENNOSIDES 8.6MG TAB TAKE ONE TABLET BY MOUTH ONCE DAILY ORAL ACTIVE FURCOLO,T ROQUE 2023 [facility] TAMSULOSIN HCL 0.4MG CAP TAKE 1 CAPSULE BY MOUTH ONCE DAILY ORAL ACTIVE FURCOLO,T ROQUE 2023 [facility] UMECLIDINIU M 62.5MCG/ALFA ANTEROL 25MCG/ACTUA T INH,ORAL,30 D INHALE 1 INHALATI ON BY MOUTH ONCE DAILY RESPIR ATORY (INHAL ATION) ACTIVE FURCOLO,T ROQUE 2023 [facility] Allergies, Adverse Reactions, Alerts Combined list of allergies from Department of Defense and Veterans Affairs facilities. It does not include entries that were removed or entered in error. Substance Category Reaction Severity Reaction type Status Date Reported Comments Source Codeine Drug allergy (disorder) active 7 [facility] CODEINE Propensity to adverse reactions to drug (finding) [facility] Hydrocodone Drug allergy (disorder) Anxiety active 7 [facility] HYDROCODONE Drug allergy (disorder) active 4 [facility] Piroxicam Drug allergy (disorder) active 7 [facility] PIROXICAM Propensity to adverse reactions to drug (finding) active 7 [facility] VICODIN Propensity to adverse reactions to drug (finding) Anxiety active 7 [facility] Immunizations Combined list of available immunizations from the Department of Defense and Veterans Affairs facilities. Immunization Series Date Given Administered By Site Reaction Lot Number CVX Code Drug Guitar Maker Hand Status Comments Source INFLUENZA, UNSPECIFIED FORMULATION 2023 [...] DOSE 2 2020 207 complet ed MOD; [id number]; 1 [facility] COVID-19 (MODERNA), MRNA, LNP-S, PF, 100 MCG/0.5 ML DOSE 1 2020 207 complet ed MOD; [id number]; 1 [facility] [...] CONJUGATE PCV 13 2016 133 complet ed [place] [facility] FLU,3 YRS (HISTORICAL) 2015 88 complet ed [place] - High dose [facility] PNEUMOCOCCAL CONJUGATE PCV 13 2015 133 complet ed [place] [facility] ZOSTER (HISTORICAL) 2015 121 complet ed [place] [facility] TDAP 2015 115 complet ed [place] [facility] FLU,3 YRS (HISTORICAL) 2014 88 complet ed [place] [facility] FLU,3 YRS (HISTORICAL) 2013 88 complet ed [place] [facility] PNEUMOCOCCAL CONJUGATE PCV 13 2013 133 complet ed [place] [facility] FLU,3 YRS (HISTORICAL) 2012 88 complet ed [place] [facility] TDAP 2012 115 complet ed [place] [facility] FLU,3 YRS (HISTORICAL) 2011 88 complet ed [place] [facility] FLU,3 YRS (HISTORICAL) 2010 88 complet ed [place] [facility] TD(ADULT) UNSPECIFIED FORMULATION 2009 139 complet ed [place] [facility] FLU,3 YRS (HISTORICAL) 2009 88 complet ed [place] [facility] FLU,3 YRS (HISTORICAL) 2009 88 complet ed [place] -[id number] demic flu [facility] FLU,3 YRS (HISTORICAL) 2008 88 complet ed [place] [facility] ZOSTER (HISTORICAL) 2007 121 complet ed [place] [facility] FLU,3 YRS (HISTORICAL) 2007 88 complet ed [place] [facility] FLU,3 YRS (HISTORICAL) 2006 88 complet ed [place] [facility] FLU,3 YRS (HISTORICAL) 2005 88 complet ed [place] [facility] FLU,3 YRS (HISTORICAL) 2004 88 complet ed [place] [facility] PNEUMOCOCCAL CONJUGATE PCV 13 2004 133 complet ed [place] [facility] TD(ADULT) UNSPECIFIED FORMULATION 2003 139 complet ed [place] [facility] Vital Signs Combined list of inpatient and outpatient Vital Signs from Department of Defense and Veterans Affairs, ranging from 12 months to all on record, depending upon the facility. Vital Sign Value Date Comments Source SYSTOLIC BLOOD PRESSURE 129 09/08/19 09:12:51 [facility] DIASTOLIC [...] [facility] DIASTOLIC BLOOD PRESSURE 71 02/11/2 025 10:47:38 [facility] [...] 08/29/2024 10:47:38 [facility] Encounters Combined list of: 1) Encounters from Department of Veterans Affairs facilities going backup to the last 18 months, not all VA inpatient encounters are included; 2) Encounters from the Department of [facility] facilities going backup to 280 months. Location Location Details Encounter Type Encounter Number Reason For Visit Attending Provider ADM Date DC Date Status Disposition Source [facility] Outpatient Encounter [id number] 06/03 [facility] Outpatient Encounter [id number] 06/17 [facility] HEARING AID REPAIR/MOD IFYING [id number] Diagnos is: ICD-10- CM Z46.1 Encount er for fitting and adjustm ent of hearing aid RAPHAEL CALLE 07/01 [facility] Outpatient Encounter [id number] 07/20 [facility] Outpatient Encounter [id number] 07/21 [facility] Outpatient Encounter [id number] 07/23 [facility] INTRM OPH EXAM EST PATIENT [id number] Diagnos is: ICD-10- CM 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 VIVI WARNER 07/30 [facility] Outpatient Encounter [id number] 07/30 [facility] Outpatient Encounter [id number] 08/01 [facility] Outpatient Encounter [id number] 08/19 [facility] HEARING AID REPAIR/MOD IFYING [id number] Diagnos is: ICD-10- CM Z46.1 Encount er for fitting and adjustm ent of hearing aid HUBER ESPINOZA 10/10 [facility] Outpatient Encounter [id number] SHAINA TERRAZAS 10/24 [facility] Outpatient Encounter [id number] 10/28 [facility] OFFICE O/P NEW HI 60 MIN [id number] Diagnos is: ICD-10- CM J44.9 Chronic obstruc tive pulmona ry disease , unspeci fied FURCOLO,TI NA 11/15 [facility] Out[facility] Encounter [id number] 12/02 [facility] Outpatient Encounter [id number] 12/05 [facility] Outpatient Encounter [id number] 12/14 [facility] Outpatient Encounter [id number] 12/24 [facility] HEARING AID FITTING/CH ECKING [id number] Diagnos is: ICD-10- CM Z46.1 Encount er for fitting and adjustm ent of hearing aid Preet ANN 12/26 [facility] OFFICE O/P EST LOW 20 MIN [id number] Diagnos is: ICD-10- CM K59.00 Constip ation, unspeci fied FURCOLO,TI NA 12/30 [facility] Out[facility] Encounter [id number] 01/20 [facility] Outpatient Encounter [id number] 01/26 [facility] Outpatient Encounter [id number] 02/03 [facility] Outpatient Encounter [id number] 02/03 [facility] Outpatient Encounter [id number] 02/03 [facility] Outpatient Encounter [id number] 02/07 [facility] INTRM OPH EXAM EST PATIENT [id number] Diagnos is: ICD-10- CM H10.45 Other chronic allergi c conjunc tiviVIVI Tobar 02/09 [facility] Out[facility] Encounter [id number] 02/09 [facility] Outpatient Encounter [id number]/23 [facility] Outpatient Encounter [id number] 05/28 [facility] Outpatient Encounter [id number] 06/22 [facility] Outpatient Encounter [id number] 07/01 [facility] Outpatient Encounter [id number] 07/05 [facility] INTRM OPH EXAM EST PATIENT [id number] Diagnos is: ICD-10- CM L71.8 Other rosacea REANNA MARMOLEJO 07/10 [facility] Outpatient Encounter [id number] 08/24 [facility] Outpatient Encounter [id number] 08/29 [facility] OFFICE O/P EST HI 40 MIN [id number] Diagnos is: ICD-10- CM J44.9 Chronic obstruc tive pulmona ry disease , unspeci fied FURCOLO,TI NA 08/29 [facility] Outpatient [facility]counter [id number] 09/07 [facility] OFF/OP EST MAY X REQ PHY/QHP [id number] Diagnos is: ICD-10- CM M25.562 Pain in left knee REANNA BOWLES S 09/08 [facility] OFFICE O/P EST MOD 30 MIN [id number] Diagnos is: ICD-10- CM M23.92 Unspeci fied interna l derange ment of left knee KIMBERLEE WAGNER 09/08 [facility] Outpatient Encounter [id number] 09/19 [facility] THERAPEUTI C EXERCISES [id number] Diagnos is: ICD-10- CM M25.562 Pain in left knee TONIO LAZAR 09/19 [facility] THERAPEUTI C EXERCISES [id number] Diagnos is: ICD-10- CM M25.562 Pain in left knee Rayne LI KENDY 09/25 [facility] Outpatient Encounter [id number] 09/27 [facility] INTRM OPH EXAM EST PATIENT [id number] Diagnos is: ICD-10- CM G43.909 Migrain e, unsp, not intract able, without status migrain osREANNA Mathis 10/02 [facility] THERAPEUTI C EXERCISES [id number] Diagnos is: ICD-10- CM M25.562 Pain in left knee Rayne LI KENDY 10/02 [facility] THERAPEUTI C EXERCISES [id number] Diagnos is: ICD-10- CM M25.562 Pain in left knee Rayne LI KENDY 10/10 [facility] Outpatient Encounter [id number] 11/17 [facility] Social History Combined list of available smoking, tobacco, and other social history from Department of Defense and Veterans Affairs facilities. Social History Type Response Date Comment Sourc e Tobacco smoking status WVIS VA-TOBACCO QUIT 15 YRS OR MORE 10/29/2023 [facility] History of tobacco use [place]-TO[place]ACCO FORMER USER 10/29/2023 [facility] of [facility] 08/23/2019 [facility] History of tobacco use [place]-TOBACCO FORMER USER 06/28/2018 [facility] History of tobacco use QUIT TOBACCO USE > 7 YEARS AGO 10/14/2017 [facility] History of tobacco use QUIT TOBACCO USE > 7 YEARS AGO 10/05/2016 [facility] This section is an empty social history section. [facility] Plan of Care List of future care activities from Department of Veterans Affairs facilities. Additional future care activities may be listed in the Assessment and Plan section. Date/Time Care Activity Care Activity Detail Facili ty 11/29/2024 AMBULATORY - REHAB MEDICINE AMBULATORY - REHAB MEDICINE [facility] Advance Directives List of completed, amended, or rescinded Advance Directives on record at Department of [facility] facilities. An actual copy of the Directive is not included. Date Advance Directive Provider Source 11/16/2023 ADVANCE DIRECTIVE MARC METZGER [facility]
--- OUTSIDE RECORDS SUMMARY | 2024-11-24 09:13 | XMS_ITS | Encounter Summary ---
Author Organization [facility] Address [address] [place] [address] Care Team Providers Care Senior Energy Market Coordinator Name Role Phone Grabiel Kasper MD Primary Care Pr ovider Encounter Details Date Type Department Care Team (Late st Contact Info) Description 05/05/2024 9:00 AM EDT Hospital Encounter TH HISTORIC ENCOUNTERS EASTERN CONVERSION ONLY Grabiel Kasper MD [address] [place] [phone] Social History Tobacco Use Types Packs/Day Years [...] Description 12/05/2024 7:45 AM EDT Hospital Encounter [facility] Endoscopy [address] [place] [phone] Joey Suazo DO [address] [phone] 12/08/2024 9:00 AM EDT Evaluation Outpatient Rehabilitation [address] [phone] Lonnie Mackey, PT [address] [place] [address] 12/15/2024 9:30 AM EDT Office Visit Orthopedics [address] [phone] Juve Menard PA [address] [place] [address] 12/20/2024 9:00 AM EDT Office Visit Adult [address] [phone] Angela Hernandez PA [address] [place] [address] 12/21/2024 8:30 AM EDT Consult Orthopedic Surgery [facility] [address] [phone] Dank Rose, DPM [address] [address] 02/05/2025 9:00 AM EDT Office Visit Adult [address] [phone] Grabiel Kasper MD [address] [place] [address] 02/27/2025 9:00 AM EDT Office Visit Pulmonolgy [facility] [address] [phone] Liza Luis MD [address] [address] documented as of this encounter Visit Diagnoses Not on filedocumented in this encounter Care Teams Senior Energy Market Coordinator Relationship Specialty Start Date End Date Grabiel Kasper MD [address] [place], [place] PCP - General Internal Medicine 02/02/22 documented as of this encounter
--- NOTE | 2024-11-24 09:20 | A.OFFVIS_ITS ---
Vital Signs 11/24/24 09:21 Height 5 ft 9 in Weight 209 lb 7.026 oz BMI 30.9 BP 120/62 Blood Pressure Location Lt brachial Position Sitting Pulse 65 Pulse Source Monitor Intake Visit Reasons: 6m follow up Allergies penicillin V Allergy (Severe, Verified 10/29/24 08:47) Hives piroxicam [PIROXICAM] Allergy (Intermediate, Verified 10/29/24 08:47) HIVES/SOB rofecoxib [From VIOXX] Allergy (Intermediate, Verified 10/29/24 08:47) HIVES/SOB Penicillins [PENICILLINS] Allergy (Unknown, Verified 10/29/24 08:47) UNKNOWN phenacetin [PHENACETIN] Allergy (Unknown, Verified 10/29/24 08:47) UNK From VICODIN Allergy (Intermediate, Uncoded 08/02/24 10:07) HIVES/SOB Medication List - Last Reconciled 11/24/24 by Lazaro Blake MD albuterol sulfate 90 mcg/actuation 2 puffs inhalation Q4H PRN ascorbic acid (vitamin C) mg PO atorvastatin 20 mg PO DAILY carboxymethylcellulose sodium 0.5% drps ophthalmic (eye) citalopram 40 mg PO DAILY diclofenac sodium 1% 1 ea topical QID diltiazem HCl CD 180 mg PO DAILY furosemide 20 mg PO DAILY ketotifen fumarate 0.025%(0.035%) (Eye Itch Relief) drps ophthalmic (eye) levetiracetam 750 mg PO BID lidocaine 5% 1 appl topical BID PRN nitric oxide gas 100PPM ea inhalation nitroglycerin mg sublingual olopatadine 0.1% 1 drp ophthalmic (eye) ONCE polyethylene glycol 3350 (Miralax) 17 grams PO DAILY rivaroxaban (Xarelto) 20 mg PO QPM tamsulosin 0.4 mg PO BID HPI Comments Details: Myocardial comes for follow-up. He is accompanied by his daughter. He continues to have intermittent sharp chest pain sometimes radiating to the back. There was no clear exertional pattern to it but could be under stressful situations. Symptoms last for few minutes and then resolve on their own. Not had any prolonged exertional chest pain. Denies any orthopnea, PND, leg edema. Denies any prolonged palpitation irregular heartbeat. [facility] Medical History Chronic anticoagulation CAD (coronary artery disease) Seizure disorder Paroxysmal atrial fibrillation HTN (hypertension) Surgical History History of left knee surgery History of right hip replacement History of ear surgery S/P skin biopsy Social History Alcohol intake: current Alcohol intake frequency: holidays/special occasions only Alcohol type: beer Patient Tobacco Use Status: Former Tobacco user Years Smoked: 30 +/- Review of Systems Const Reports no additional complaints Eyes Reports no additional complaints ENT Reports no additional complaints Card Reports chest pain, Denies irregular heart rhythm, Denies lightheadedness and Denies dyspnea on exertion Resp Denies dyspnea on exertion GI Reports no additional complaints Skin/Breast Reports system reviewed and no additional complaints, except as documented Neuro Reports no additional complaints Physical Exam Vital Signs: Last Vital Signs Pulse 65 11/24/24 09:21 BP 120/62 11/24/24 09:21 BMI result Body Mass Index 30.9 Office Procedures EKG Details: EKG shows normal sinus rhythm with PACs otherwise normal EKG 39373-[id number], Complete Assessment & Plan Assessment & Plan (1) CAD (coronary artery disease): Code(s): I25.10 - Atherosclerotic heart disease of [place] coronary artery without angina pectoris Category: Medical Plan: CAD with mostly branch vessel disease in diagnose branch which was about 70% otherwise rest of the arteries had nonobstructive disease. Currently having atypical chest pain. Will suggest vasodilating myocardial perfusion imaging as patient can not exercise on the treadmill. Continue aggressive risk factor modification. Currently on statin therapy with atorvastatin 20 mg with target goal LDL less than 70 mg/dL. Blood pressure is currently well optimized. Currently on full oral anticoagulation with Xarelto and would avoid aspirin ther apy to reduce bleeding risk. (2) Paroxysmal atrial fibrillation: Code(s): I48.0 - Paroxysmal atrial fibrillation Category: Medical Plan: Paroxysmal atrial fibrillation without any obvious clinical recurrence at this point time. Avoidance of stimulants was discussed. Stress mitigation strategies were discussed. Continue diltiazem therapy. Advised to avoid stimulants. Given that he has not had any recurrent episodes of atrial fibrillation would avoid antiarrhythmic drug therapy. Continue full oral anticoagulation, currently on Xarelto 20 mg daily. Semi annual renal function test should be pursued. Will follow up in the clinic in 1 year's time, sooner p.r.n.. Thank you for allowing me to partake in his care Orders: Orders CA lexiscan stress w zaheer Today I25.10 - Atherosclerotic heart disease of [place] coronary artery without angina pectoris, R07.89 - Other chest pain Coding Level of Care Code Est Pt Level 4 (91541) Complex EM visit Add On G2211 Diagnoses CAD (coronary artery disease) I25.10 Paroxysmal atrial fibrillation I48.0 CPT Codes EKG - CPT: 18597-[id number], Complete ([id number])
[2024-11-24 09:21] VITALS: BP 120/62; PULSE 65; BMI 30.9
== END 2024-11-24 09:46 | disposition home or self-care (01) ==
PROVIDERS: PCP Family Medicine; Visit Provider Internal Medicine Cardiovascular Disease
DX: I25.10 Atherosclerotic heart disease of native coronary artery without angina pectoris (principal); I48.0 Paroxysmal atrial fibrillation
CPT/HCPCS: 93010; 99214

== ENCOUNTER → 2024-11-24 08:59 | Outpatient (BNVA) | payer OTHER, SELFPAY | PROVIDERS: PCP Family Medicine; Visit Provider Internal Medicine Cardiovascular Disease | DX: I25.10 Atherosclerotic heart disease of native coronary artery without angina pectoris (principal); I48.0 Paroxysmal atrial fibrillation; R07.89 Other chest pain; Z87.891 Personal history of nicotine dependence | CPT/HCPCS: 93005; 99212 ==

== ENCOUNTER → 2025-01-07 04:10 | Outpatient (BNV) | payer OTHER, SELFPAY | PROVIDERS: Admitting Provider Physician Assistant; Emergency Provider Internal Medicine; PCP Family Medicine; Visit Provider Radiology Diagnostic Radiology | DX: R07.9 Chest pain, unspecified (principal) | CPT/HCPCS: 71046 ==

== ENCOUNTER 2025-01-07 04:43 | Observation (INO) | payer OTHER, SELFPAY ==
[2025-01-07] VITALS (9 sets, daily range): BP systolic 126–160; BP diastolic 63–75; PULSE 52–62; RESP 11–17; TEMP 36.3–37; O2SAT 95–99; BMI 30.9; BMI 31.3
--- NOTE | 2025-01-07 | CA_ITS ---
Acquisition Time: 2025-01-08 10:19:50 Total Exercise Time: 00:02:00 Test Indications: CHEST PAIN Medications: SEE MED CHART Protocol: LEXISCAN Max HR: 75 BPM 55% of Pred: 136 BPM Max BP: 136/60 mmHG Max Work Load: 1.0 METS Pharmacological stress test with Lexiscan while pt marches in chair, with reports of SOB and headache, baseline 2/10 left sided dullache, with isolated PVC, with normotensive response to exercise. Nondiagnostic EKG for ischemia. In recovery, pt treated with IVP Aminophylline 75 mg to reverse Lexiscan after which pt feeling back to baseline. Nuclear images pending. Test reviewed with Dr. Tidwell. Referred By: Remington Johnson Electronically Signed By: Shun Siddiqi
--- NOTE | 2025-01-07 | ECG_ITS ---
Test Reason : CP Blood Pressure : */* mmHG Vent. Rate : 57 BPM Atrial Rate : 57 BPM P-R Int : 228 ms QRS Dur : 80 ms QT Int : 418 ms P-R-T Axes : 104 31 25 degrees QTcB Int : 406 ms Sinus bradycardia with 1st degree A-V block Otherwise normal ECG When compared with ECG of 22-Oct-2024 16:31, Premature supraventricular complexes are no longer Present Referred By: Generic ED Physician Electronically Signed By: Remington Johnson
--- NOTE | ~2025-01-07 | XR_ITS ---
CLINICAL HISTORY: cp 2 view chest x-ray Comparison: CR - XR CHEST 2V - 10/22/24 16:06 EDT Findings: The lungs are clear. Normal size heart. No acute fracture. IMPRESSION: 1. No acute findings. This document has been electronically signed by: Yuri Herzog MD on 01/07/2025 06:51:16
--- NOTE | ~2025-01-07 | NM_ITS ---
Lexiscan Myocardial perfusion study Indication: Chest pain Technique: The patient was brought in for a Lexiscan perfusion study on 01/08/2025 and was injected 0.4 mg of Lexiscan intravenously. Within a minute of this injection 30 mCi of sestamibi was given intravenously. Images were obtained using the SPECT gamma camera interlaced with the gating device. Images were obtained in supine position. Resting perfusion study was performed on 01/09/2025. Patient was administered 30 mCi of sestamibi intravenously at rest. Images were then obtained in supine position. Total DLP 69 mGy-cm. Images were processed with the software and compared side to side in short axis, horizontal long axis and vertical long axis views. Findings: Raw aquisition reviewed. The stress perfusion study showed decreased tracer uptake along the inferior wall, most prominent towards the inferior apex. There is improvement with CT attenuation correction suggestive of components of diaphragmatic attenuation artifact. The most distal part of inferior wall, the defect still remains. The gated study shows normal LV systolic function with calculated LVEF of 66%. LV cavity is normal in size. The gated study shows normal wall thickening and contraction of segments. Resting study shows decreased tracer uptake along the inferior wall, most prominent towards the apex. There is improvement with CT attenuation correction suggesting components of diaphragmatic attenuation artifact. In the most distal part of inferior wall, the defect still persists. Gating at rest reveals normal wall motion with ejection fraction at 72%. The findings are consistent with no clear reversible defects. Mostly fixed defect in the inferior wall including inferior apex but normal contractility. Suspect mainly diaphragmatic attenuation artifact. At the inferior apex cannot exclude nontransmural infarct. NM/NM zaheer perf SPECT rest & str Impression: 1. Myocardial perfusion imaging study shows no clear evidence of ischemia. Probably diaphragmatic attenuation artifact causing fixed defect of inferior wall, but cannot exclude a small nontransmural infarct at the inferior apex. 2. Gated LVEF is 66% during stress and 72% during rest. 3. Transient ischemic dilatation not present. EKG component of the test reported separately. Electronically signed by: Tonio Tidwell MD 01/09/2025 02:56 PM EDT
--- NOTE | 2025-01-07 05:20 | ED.CHESTPAIN ---
HPI - Chest Pain General Chief Complaint: Chest Pain Stated Complaint: CHEST PAIN Time Seen by Provider: 01/07/25 05:20 Source: patient Mode of arrival: ambulatory Limitations: no limitations History of Present Illness ED Provider: HPI narrative: Patient has a history of paroxysmal AFib on Xarelto, nonobstructive coronary artery disease comes here for chest pain which woke him up at 03:30 patient does get chest pain off and on but this time pain was different and very severe patient has had some water even then pain continued and lasted for about 30 minutes and then slowly eased off completely after giving nitroglycerin by the EMS now feeling much better EKG without any ST elevation per patient he never had similar pain in the past does get some pain off and on lasting only for few minutes but this pain was severe and scared him patient never had any cardiac catheterization. Denies any palpitation patient has a stress test years ago nothing in recent past Related Data Home Medications ?Medication ?Instructions ?Recorded ?Confirmed diclofenac sodium 1 % topical gel 1 ea topical QID 06/11/20 11/24/24 albuterol sulfate 90 mcg/actuation 2 puff inhalation Q4H PRN wheezing 12/12/20 11/24/24 aerosol inhaler ascorbic acid (vitamin C) 500 mg mg PO 05/22/21 11/24/24 capsule nitric oxide gas 100 PPM for ea inhalation 05/22/21 11/24/24 inhalation atorvastatin 20 mg tablet 20 mg PO DAILY 11/25/21 11/24/24 tamsulosin 0.4 mg capsule 0.4 mg PO BID 11/25/21 11/24/24 carboxymethylcellulose sodium 0.5 drp ophthalmic (eye) 03/12/22 11/24/24 % eye drops olopatadine 0.1 % eye drops 1 drp ophthalmic (eye) ONCE 03/12/22 11/24/24 citalopram 40 mg tablet 40 mg PO DAILY 04/19/23 11/24/24 levetiracetam 1,000 mg tablet 750 mg PO BID 04/19/23 11/24/24 furosemide 20 mg tablet 20 mg PO DAILY 12/02/23 11/24/24 ketotifen fumarate 0.025 % (0.035 drp ophthalmic (eye) 12/02/23 11/24/24 %) eye drops (Eye Itch Relief) nitroglycerin 0.3 mg sublingual mg sublingual 12/02/23 11/24/24 tablet Previous Rx's ?Medication ?Instructions ?Recorded lidocaine 5 % topical cream 1 appl topical BID PRN pain #15 05/12/22 grams rivaroxaban 20 mg tablet (Xarelto) 20 mg PO QPM #90 tabs 06/02/24 polyethylene glycol 3350 17 17 g PO DAILY #119 grams 07/07/24 gram/dose oral powder (Miralax) diltiazem HCl 180 mg 180 mg PO DAILY #90 caps 10/23/24 capsule,extended release 24 hr Allergies Allergy/AdvReac Type Severity Reaction Status Date / Time penicillin V Allergy Severe Hives Verified 01/07/25 04:59 piroxicam (PIROXICAM) Allergy Intermediate HIVES/SOB Verified 01/07/25 04:59 rofecoxib (From VIOXX) Allergy Intermediate HIVES/SOB Verified 01/07/25 04:59 Penicillins (PENICILLINS) Allergy Unknown UNKNOWN Verified 01/07/25 04:59 phenacetin (PHENACETIN) Allergy Unknown UNK Verified 01/07/25 04:59 From VICODIN Allergy Intermediate HIVES/SOB Uncoded 01/07/25 04:59 Review of Systems Review of Systems: Yes all other systems are reviewed and are negative PMFSH Past Medical History Medical History Chronic anticoagulation CAD (coronary artery disease) Seizure disorder Paroxysmal atrial fibrillation HTN (hypertension) Surgical History History of left knee surgery History of right hip replacement History of ear surgery S/P skin biopsy Social History Social History Alcohol intake: current Alcohol intake frequency: holidays/special occasions only Alcohol type: beer Patient Tobacco Use Status: Former Tobacco user Years Smoked: 30 +/- Smoked in Last 30 Days: No Use of substances other than those prescribed or required for medical reasons: No Advance Directives: Yes Advance Directives Information Provided: Yes Advance Directives on File: No Nutrition Risks: No Nutritional Risk Physical Exam Vital Signs: Vital Signs: Last Vital Signs Temp 98.1 F 01/07/25 04:58 Pulse 52 01/07/25 07:04 Resp 11 L 01/07/25 04:58 BP 132/64 01/07/25 07:04 Pulse Ox 97 01/07/25 04:58 O2 Del Method Room Air 01/07/25 04:58 BMI result Body Mass Index 30.9 Appearance: Alert. Oriented X3. No acute distress. Eyes: PERRLA, No Nystagmus ENT: Pharynx normal. Oral Mucosa moist Neck: Normal inspection. Neck supple. CVS: Normal heart rate and rhythm. Pulses normal. Respiratory: No respiratory distress. Equal air entry bilateral, no wheezing/rales/rhonchi Abdomen: Soft and nontender. Bowel sounds are present, no mass palpable, no CVA tenderness Skin: Skin warm and dry. Normal skin color. Normal skin turgor. Extremities: No lower extremity edema. No calf tenderness Neuro: Oriented X 3. No motor deficit. No sensory deficit.No cerebellar signs , cranial nerves II-XII intact Medications Administered Discontinued Medications Generic Name Dose Route Start Last Admin Trade Name Freq PRN Reason Stop Dose Admin Nitroglycerin 0.5 inch 01/07/25 06:19 01/07/25 07:04 Nitroglycerin 2 % Oint 1 Gm Packet TRANSDERMA 01/07/25 06:20 0.5 inch ONCE ONE Administration Medical Decision Making Medical Decision Making [facility] Narrative: Patient with left-sided chest pain lasted for 30 minutes without any ischemic changes in the EKG with history of hypertension and AFib on Xarelto initial troponin is negative patient clinically with ACS with atypical chest pain plan to admit for further evaluation case discussed with hospitalist Differential Diagnosis Differential Diagnoses: The differential diagnosis associated with the presentation includes ACS/atypical chest pain/AFib Admission/Observation Consideration of admission/observation: Escalation of care including admission/observation considered Consult Healthcare Provider Management of the patient was discussed with: Hospitalist Lab Data [facility] Lab Attestation statement: I reviewed the patient's lab results. 01/07/25 05:27 01/07/25 05:27 Labs: Lab Results 01/07/25 Range/Units 05:27 WBC 4.9 (4.8-10.8) X10*3/uL RBC 4.00 L (4.60-5.80) X10*6/uL Hgb 13.1 L (14.0-18.0) g/dl Hct 37.7 L (42.0-52.0) % MCV 94.3 (80.0-98.0) fL MCH 32.8 (27.0-33.0) pg MCHC 34.7 (31.0-36.0) g/dl RDW 14.1 (11.0-16.0) % Plt Count 174 (160-400) X10*3/uL MPV 9.1 L (9.4-12.4) fL Immature Gran % (Auto) 0.2 (0.0-0.4) % Neut % (Auto) 70.7 (45-73) % Lymph % (Auto) 16.4 L (20-40) % Valencia % (Auto) 8.0 (2-11) % Eos % (Auto) 3.9 (0-4) % Baso % (Auto) 0.8 (0-2) % Lymph # (Auto) 0.8 L (1.2-4.9) X10*3/uL Valencia # (Auto) 0.4 (0.1-1.2) X10*3/uL Eos # (Auto) 0.2 (0.0-0.4) X10*3/uL Baso # (Auto) 0.0 (0.0-0.2) X10*3/uL Abs Immat Gran (auto) 0.01 (0.00-0.03) X10*3/uL Absolute Neuts (auto) 3.5 (2.0-8.3) x10*3/uL Absolute Nucleated RBC 0.000 (0.0-0.012) X10*3/uL Nucleated RBC % (auto) 0.0 (0.0-0.2) /100WBC Sodium 142 (135-145) mmol/L Potassium 4.0 (3.3-5.1) mmol/L Chloride 108 (96-108) mmol/L Carbon Dioxide 26 (22-29) mmol/L Anion Gap 12 (12-20) BUN 15 (9-16) mg/dL Creatinine 0.74 (0.5-1.4) mg/dL Estim Creat Clear Calc 84.5 Estimated GFR > 60 Random Glucose 103 (60-115) mg/dL Calcium 9.0 (8.4-10.2) mg/dL Total Bilirubin 0.5 (0.0-1.0) mg/dL AST 20 (5-37) U/L ALT 12 (0-40) U/L Alkaline Phosphatase 52 (39-117) U/L Troponin I High Sens < 2.7 (<3.5-35.0) ng/L Total Protein 6.3 L (6.5-8.0) g/dL Albumin 3.9 (3.5-5.0) g/dL Independent Interpretation I performed an independent interpretation of an: EKG Interpretation: Sinus bradycardia ventricular rate 57 beats per minute prolonged ND interval no acute STT wave changes no acute ischemia Discharge Plan Discharge Clinical Impression: Acute chest pain, Paroxysmal atrial fibrillation Patient Disposition: Admitted As Inpatient
[2025-01-07 05:31] LABS: MANUAL DIFF FLAG NO
[2025-01-07 05:32] LABS: Basophils Percent Auto 0.8 % (0-2); Eosinophils Absolute Auto 0.2 X10*3/uL (0.0-0.4); Eosinophils Percent Auto 3.9 % (0-4); Hematocrit 37.7 % (42.0-52.0); Hemoglobin 13.1 g/dl (14.0-18.0); Imm Gran Abs Auto 0.01 X10*3/uL (0.00-0.03); Imm Gran Pct Auto 0.2 % (0.0-0.4); Lymphocytes Absolute Auto 0.8 X10*3/uL (1.2-4.9); Lymphocytes Percent Auto 16.4 % (20-40); Mean Corpuscular HGB Conc 34.7 g/dl (31.0-36.0); Mean Corpuscular Hemoglobin 32.8 pg (27.0-33.0); Mean Corpuscular Volume 94.3 fL (80.0-98.0); Mean Platelet Volume 9.1 fL (9.4-12.4); Monocytes Absolute Auto 0.4 X10*3/uL (0.1-1.2); Neutrophils Absolute Auto 3.5 x10*3/uL (2.0-8.3); Neutrophils Percent Auto 70.7 % (45-73); Platelet Count 174 X10*3/uL (160-400); Red Cell Distribution Width 14.1 % (11.0-16.0); White Blood Count 4.9 X10*3/uL (4.8-10.8)
[2025-01-07 05:45] LABS: Alanine Aminotransferase 12 U/L (0-40); Albumin Level 3.9 g/dL (3.5-5.0); Alkaline Phosphatase 52 U/L (39-117); Anion Gap 12 (12-20); Aspartate Amino Transferase 20 U/L (5-37); Bilirubin Total 0.5 mg/dL (0.0-1.0); Blood Urea Nitrogen 15 mg/dL (9-16); Carbon Dioxide 26 mmol/L (22-29); Chloride 108 mmol/L (96-108); Creatinine Clr Calc Pharmacy 84.5; Estimated Glomerular Filt Rate > 60; Glucose Random 103 mg/dL (60-115); Sodium 142 mmol/L (135-145); Total Protein 6.3 g/dL (6.5-8.0)
[2025-01-07 05:53] LABS: Troponin-I High Sensitivity < 2.7 ng/L (<3.5-35.0)
--- NOTE | 2025-01-07 06:36 | PM.IMHP ---
History of Present Illness Date of Service: 01/07/25 Attending physician on admission: Tate Rodriguez Chief Complaint: Chest pain Patient is an 84-year-old male with a past medical history significant for CAD, paroxysmal AFib on Xarelto, seizure disorder and HTN, who presented to the ED due to severe low sided chest pain which occurred around 230 this morning that woke him and he rated it a 9/10. Air/sided chest pain worsening over the past 2 weeks. EMS gave him aspirin 324 mg and nitroglycerin however pt's pain had resolved prior to recieving. he reports the pain lasted about 10 minutes but he still feels sore when he touches the left lateral chest. The patient has been having episodes of chest pain intermittently that resolve on their own. Is history of similar symptoms but has never had a cardiac catheterization. Workup in the ED showed negative troponin as well as EKG without ischemic changes. EKG did show sinus bradycardia with first-degree AV block. Chest x-ray is still pending however patient does not have URI symptoms, fever or white count. Plan to admit patient for observation with telemetry and cardiology consult. Review of Systems Constitutional: Constitutional: Denies body ache(s), Denies chills, Denies fatigue, Denies fever(s) and Denies headache(s) Eyes: Eyes: Denies change in vision and Denies loss of vision ENT: Denies headache(s), Denies nasal discharge and Denies sore throat Cardiovascular: Cardiovascular: Reports chest pain, Denies syncope, Denies rapid heart rate, Denies leg edema and Denies dyspnea Respiratory: Respiratory: Denies chest congestion, Denies cough, Denies dyspnea and Denies wheezing Gastrointestinal: Gastrointestinal: Denies abdominal pain, Denies diarrhea, Denies nausea and Denies vomiting Genitourinary: Genitourinary: Denies dysuria Musculoskeletal: Musculoskeletal: Denies myalgias Integumentary/Breasts: Skin/Breast: Denies rash Neurologic: Denies confusion, Denies syncope, Denies headache(s) and Denies loss of vision Psychiatric: Psychiatric: Denies confusion Endocrine: Endocrine: Denies fatigue Hematologic/Lymphatic: Hematologic/Lymphatic: Denies easy bleeding and Denies easy bruising Allergic/Immunologic: Allergic/Immunologic: Denies wheezing [facility] Medical History Chronic anticoagulation CAD (coronary artery disease) Seizure disorder Paroxysmal atrial fibrillation HTN (hypertension) Surgical History History of left knee surgery History of right hip replacement History of ear surgery S/P skin biopsy Social History Alcohol intake: current Alcohol intake frequency: holidays/special occasions only Alcohol type: beer Patient Tobacco Use Status: Former Tobacco user Years Smoked: 30 +/- Advance Directives: Yes Advance Directives Information Provided: Yes Advance Directives on File: No Meds Allergies Allergy/AdvReac Type Severity Reaction Status Date / Time penicillin V Allergy Severe Hives Verified 01/07/25 04:59 piroxicam (PIROXICAM) Allergy Intermediate HIVES/SOB Verified 01/07/25 04:59 rofecoxib (From VIOXX) Allergy Intermediate HIVES/SOB Verified 01/07/25 04:59 Penicillins (PENICILLINS) Allergy Unknown UNKNOWN Verified 01/07/25 04:59 phenacetin (PHENACETIN) Allergy Unknown UNK Verified 01/07/25 04:59 From VICODIN Allergy Intermediate HIVES/SOB Uncoded 01/07/25 04:59 Active Medications: Current Medications Acetaminophen (Acetaminophen 325 Mg Tablet) 975 mg PO Q6H PRN PRN Reason: Pain, Mild 1-3,fever,headache Calcium Carbonate (Calcium Carbonate 750 Mg Tab.Chew) 750 mg PO Q4H PRN PRN Reason: Heartburn Magnesium Hydroxide (Milk Of Magnesia 30 Ml Oral.Susp) 30 ml PO DAILY PRN PRN Reason: Constipation Melatonin (Melatonin 3 Mg Tablet) 6 mg PO BEDTIME PRN PRN Reason: Insomnia Ondansetron HCl (Ondansetron Hcl 4 Mg/2 Ml Vial) 4 mg IVPUSH Q8H PRN PRN Reason: Nausea and Vomiting Oxycodone HCl (Oxycodone Hcl Immed Release 5 Mg Tablet) 5 mg PO Q6H PRN PRN Reason: Pain, Severe (Pain Scale 7-10) Rivaroxaban (Rivaroxaban 20 Mg Tablet) 20 mg PO 1700 [facility] Sodium Chloride (0.9 % Sodium Chloride Flush 3 Ml Syringe) 3 ml IVFLUSH QSHIFT [facility] Home Medications ?Medication ?Instructions ?Recorded ?Confirmed ?Last Taken ?Type diclofenac sodium 1 % topical gel 1 ea topical QID 06/11/20 11/24/24 Unknown History albuterol sulfate 90 mcg/actuation 2 puff inhalation Q4H PRN wheezing 12/12/20 11/24/24 Unknown History aerosol inhaler ascorbic acid (vitamin C) 500 mg mg PO 05/22/21 11/24/24 Unknown History capsule nitric oxide gas 100 PPM for ea inhalation 05/22/21 11/24/24 Unknown History inhalation atorvastatin 20 mg tablet 20 mg PO DAILY 11/25/21 11/24/24 Unknown History tamsulosin 0.4 mg capsule 0.4 mg PO BID 11/25/21 11/24/24 Unknown History carboxymethylcellulose sodium 0.5 drp ophthalmic (eye) 03/12/22 11/24/24 Unknown History % eye drops olopatadine 0.1 % eye drops 1 drp ophthalmic (eye) ONCE 03/12/22 11/24/24 Unknown History citalopram 40 mg tablet 40 mg PO DAILY 04/19/23 11/24/24 Unknown History levetiracetam 1,000 mg tablet 750 mg PO BID 04/19/23 11/24/24 Unknown History furosemide 20 mg tablet 20 mg PO DAILY 12/02/23 11/24/24 Unknown History ketotifen fumarate 0.025 % (0.035 drp ophthalmic (eye) 12/02/23 11/24/24 Unknown History %) eye drops (Eye Itch Relief) nitroglycerin 0.3 mg sublingual mg sublingual 12/02/23 11/24/24 Unknown History tablet Physical Exam Vital Signs and Narrative: Vital Signs: Last Vital Signs Temp 98.1 F 01/07/25 04:58 Pulse 59 01/07/25 04:58 Resp 11 L 01/07/25 04:58 BP 128/65 01/07/25 04:58 Pulse Ox 97 01/07/25 04:58 O2 Del Method Room Air 01/07/25 04:58 BMI result Body Mass Index 30.9 General: AOx3, no acute distress Resp: CTA bilaterally CVS: S1, S2, RRR. pain with palpation left chest wall, pt can target specific spot. GI: +BS, NT, no distention Skin: Warm, dry Neuro: Cranial nerves II-XII grossly intact bilaterally. Motor grossly intact bilaterally Extremities: No pitting edema Psych: Appropriate affect Const: General: No confusion Orientation/consciousness: No confusion Neuro: General: No confusion Results Labs 01/07/25 05:27 01/07/25 05:27 Labs: Laboratory Results - last 24 hr 01/07/25 05:27 MCV 94.3 MCH 32.8 MCHC 34.7 RDW 14.1 Plt Count 174 MPV 9.1 L Immature Gran % (Auto) 0.2 Neut % (Auto) 70.7 Lymph % (Auto) 16.4 L [place] % (Auto) 8.0 Eos % (Auto) 3.9 Baso % (Auto) 0.8 Lymph # (Auto) 0.8 L [place] # (Auto) 0.4 Eos # (Auto) 0.2 Baso # (Auto) 0.0 Abs Immat Gran (auto) 0.01 Absolute Neuts (auto) 3.5 Absolute Nucleated RBC 0.000 Nucleated RBC % (auto) 0.0 Anion Gap 12 Estim Creat Clear Calc 84.5 Estimated GFR > 60 Random Glucose 103 Calcium 9.0 Total Bilirubin 0.5 AST 20 ALT 12 Alkaline Phosphatase 52 Troponin I High Sens < 2.7 Total Protein 6.3 L Albumin 3.9 Assessment and Plan (1) Acute chest pain: Status: Acute (2) Class 1 obesity: Status: Acute Plan Patient is an 84-year-old male with a past medical history significant for CAD, paroxysmal AFib on Xarelto, seizure disorder and HTN, who presented to the ED due to severe low sided chest pain which occurred around 230 this morning that woke him and he rated it a 9/10. Acute chest pain - troponin less than 2.7 - EKG without ischemic changes, does show sinus bradycardia with first-degree AV block - received aspirin 324 mg and nitroglycerin via EMS but sx resolved prior to receiving - already on Xarelto, PE unlikely, no shortness of breath or upper respiratory symptoms - chest x-ray negative - no leukocytosis, vital signs stable, afebrile - monitor on telemetry - cardiology consult CAD - Continue statin Paroxysmal AFib - continue rate control and Xarelto Seizure disorder - continue topamax and lamotrigine HTN - continue home meds Class 1 obesity - BMI 30.9 - weight loss encouraged Med rec pending Full code VTE prophylaxis: Xarelto Patient with acute chest pain requiring admission for observation with telemetry and cardiology consultation. Quality Stroke Does the patient have a stroke diagnosis?: No VTE Prior VTE?: No VTE Risk Level:: Medical - moderate - high VTE Device Contraindication: Treatment Not Indicated VTE Drug Contraindication: N/A - Med Ordered
--- OUTSIDE RECORDS SUMMARY | 2025-01-07 06:38 | XMS_ITS ---
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 I [...] side of the heart. Cerebrovascular accident (CVA) ([facility] V24, [facility] /[facility] V28) 09/17/2021 Benign prostatic hyperplasia with urinary [...] 11/18 Spinal stenosis, lumbar 02/26/2017 Atrial fibrillation ([facility] V24, [facility] V28) 0 11/20/2015 Assessment & Plan (10/06/2024 11:49 AM EDT): Continue cardiology follow-up. Continue Cardizem 180 mg daily and Xarelto 20 mg daily Orders: CBC and differential; Future Seizure disorder ([facility] V24, [facility] V28) 10/2015 Assessment & Plan (10/06/2024 11:49 AM EDT): Continue neurology follow-up. Continue Keppra 750 mg twice daily DDD (degenerative disc disease), lumbar 10/30/19 16 Gallstone 03/09/2013 Eczematous dermatitis 10/14/2012 Protein S deficiency ([facility] V24) 07/05/2009 Assessment & Plan (10/06/2024 11:49 AM EDT): Continue Xarelto 20 mg daily Essential hypertension, benign 01/11/2006 Assessment & Plan (10/06/2024 11:49 AM EDT): Blood pressure is stable. Continue Cardizem 180 mg daily Orders: Comprehensive metabolic panel; Future Transient cerebral ischemia 11/16/2005 Overview (04/13/2024): Carotid US Mri normal 1997;p <50% 2011 Obesity (BMI 30.0-34.9) 11/16/2005 Hepatitis C, chronic ([facility] V24, [facility] V28) 11/16/2005 Overview (04/13/2024): Genotype 1A. Hearing loss 11/16/2005 Current Oncology Plans No current plan information found. Past Plans No past plan information found. Radiation Treatments * No radiation treatments are documented for this patient in [facility]. Treatments may have been administered in another system. Lifetime Dose Tracking * Chemical Lifetime Dose Automatic Entry Manual Entr y CTDIvol 16.48 mGy 16.48 mGy 0 mGy Resolved Problems Problem Noted Date Diagnosed Date Resolved Date Diverticulitis of colon without hemorrhage 11/16/2005 10/06/2024
[2025-01-07] MEDS: Nitroglycerin 2 % Oint 1 GM Packet 0.5 INCH TRANSDERMA (07:04)
--- NOTE | 2025-01-07 08:00 | PC.NURSE ---
Pharmacy at bedside for Med Rec.
[2025-01-07] MEDS: Topiramate 25 MG TABLET PO (08:20)
[2025-01-07] MEDS: lamoTRIgine 25 MG TABLET PO (08:20)
[2025-01-07] MEDS: 0.9 % Sodium Chloride Flush 3 ML SYRINGE IVFLUSH ×2 (08:20→17:34)
--- NOTE | 2025-01-07 08:21 | PHA.MEDREC ---
Pharmacy Consult ? Medication Reconciliation Pharmacy has completed the medication reconciliation. Spoke with patient. Patient confirmed their medications with me. Patient confirmed to still be taking keppra although claims are out of date. Patient confirmed he did take his xarelto prior to coming in yesterday.
[2025-01-07 08:46] LABS: Troponin-I High Sensitivity < 2.7 ng/L (<3.5-35.0)
--- NOTE | 2025-01-07 12:12 | PM.CNCAR ---
History of Present Illness History of Present Illness Date of Service: 01/07/25 Requesting physician: Manjeet Medeiros Chief complaint: CHEST PAIN Narrative: [age] year gentleman who we have been asked to see for chest pain. He has been complaining of atypical chest pains and was seen by Dr. Blake in the office and was supposed to undergo Lexiscan. He walks with a cane and has some balance issues. He said he woke up with severe left-sided chest pain. He is describing pressure and sharp sensation. He said this continued for approximately 1-2 hours and then became a dull ache on the left side of the chest which is still present. He is saying he had assessment by Dr. Blake for same dull ache on the left side of the chest and was advised to undergo stress testing. He has some reproducible pain on the left side of the chest. He has paroxysmal atrial fibrillation and is on diltiazem and rivaroxaban. Blood pressure is well controlled. EKGs labs reviewed. His high sensitivity troponin levels are less than 2.7 x 2 PMFSH Past Medical History Medical History Chronic anticoagulation CAD (coronary artery disease) Seizure disorder Paroxysmal atrial fibrillation HTN (hypertension) Surgical History Surgical History History of left knee surgery History of right hip replacement History of ear surgery S/P skin biopsy Social History Social History Alcohol intake: current Alcohol intake frequency: holidays/special occasions only Alcohol type: beer Patient Tobacco Use Status: Former Tobacco user Years Smoked: 30 +/- Smoked in Last 30 Days: No Use of substances other than those prescribed or required for medical reasons: No Advance Directives: Yes Advance Directives Information Provided: Yes Advance Directives on File: No Nutrition Risks: No Nutritional Risk Meds Allergies Allergy/AdvReac Type Severity Reaction Status Date / Time penicillin V Allergy Severe Hives Verified 01/07/25 04:59 piroxicam (PIROXICAM) Allergy Intermediate HIVES/SOB Verified 01/07/25 04:59 rofecoxib (From VIOXX) Allergy Intermediate HIVES/SOB Verified 01/07/25 04:59 Penicillins (PENICILLINS) Allergy Unknown UNKNOWN Verified 01/07/25 04:59 phenacetin (PHENACETIN) Allergy Unknown UNK Verified 01/07/25 04:59 From VICODIN Allergy Intermediate HIVES/SOB Uncoded 01/07/25 04:59 Active Medications: Current Medications Acetaminophen (Acetaminophen 325 Mg Tablet) 975 mg PO Q6H PRN PRN Reason: Pain, Mild 1-3,fever,headache Calcium Carbonate (Calcium Carbonate 750 Mg Tab.Chew) 750 mg PO Q4H PRN PRN Reason: Heartburn Lamotrigine (Lamotrigine 25 Mg Tablet) 25 mg PO DAILY [facility] Last Admin: 01/07/25 08:20 Dose: 25 mg Magnesium Hydroxide (Milk Of Magnesia 30 Ml Oral.Susp) 30 ml PO DAILY PRN PRN Reason: Constipation Melatonin (Melatonin 3 Mg Tablet) 6 mg PO BEDTIME PRN PRN Reason: Insomnia Ondansetron HCl (Ondansetron Hcl 4 Mg/2 Ml Vial) 4 mg IVPUSH Q8H PRN PRN Reason: Nausea and Vomiting Oxycodone HCl (Oxycodone Hcl Immed Release 5 Mg Tablet) 5 mg PO Q6H PRN PRN Reason: Pain, Severe (Pain Scale 7-10) Rivaroxaban (Rivaroxaban 20 Mg Tablet) 20 mg PO DAILY@1700 [facility] Sodium Chloride (0.9 % Sodium Chloride Flush 3 Ml Syringe) 3 ml IVFLUSH QSHIFT [facility] Last Admin: 01/07/25 08:20 Dose: 3 ml Topiramate (Topiramate 25 Mg Tablet) 25 mg PO DAILY [facility] Last Admin: 01/07/25 08:20 Dose: 25 mg Home Medications ?Medication ?Instructions ?Recorded ?Confirmed ?Last Taken ?Type albuterol sulfate 90 mcg/actuation 2 puff inhalation Q4H PRN wheezing 12/12/20 01/07/25 Unknown History aerosol inhaler ascorbic acid (vitamin C) 500 mg 500 mg PO DAILY 05/22/21 01/07/25 Unknown History capsule atorvastatin 20 mg tablet 20 mg PO DAILY 11/25/21 01/07/25 Unknown History tamsulosin 0.4 mg capsule 0.4 mg PO BID 11/25/21 01/07/25 Unknown History carboxymethylcellulose sodium 0.5 1 drp ophthalmic (eye) TID PRN Dry 03/12/22 01/07/25 Unknown History % eye drops Eye(S) citalopram 40 mg tablet 40 mg PO DAILY 04/19/23 01/07/25 Unknown History levetiracetam 1,000 mg tablet 750 mg PO BID 04/19/23 01/07/25 Unknown History nitroglycerin 0.3 mg sublingual 0.3 mg sublingual Q5M 12/02/23 01/07/25 Unknown History tablet topiramate 25 mg tablet 25 mg PO DAILY 01/07/25 01/07/25 Unknown History Physical Exam Vital Signs: Vital Signs: Last Vital Signs Temp 98.0 F 01/07/25 08:00 Pulse 57 01/07/25 08:00 Resp 12 01/07/25 08:00 BP 134/64 01/07/25 08:00 Pulse Ox 96 01/07/25 08:00 O2 Del Method Room Air 01/07/25 08:00 BMI result Body Mass Index 30.9 GENERAL APPEARANCE: in no acute distress, pleasant. NECK: no carotid bruit, no jugular venous distention. SKIN: no suspicious lesions, warm and dry. HEART: no murmurs, regular rate and rhythm. LUNGS: clear to auscultation bilaterally. Left-sided chest tenderness. ABDOMEN: soft, nontender. EXTREMITIES: no edema. PERIPHERAL PULSES: equal. NEUROLOGIC: No gross deficits, AAO X 3 Objective Labs and Meds 01/07/25 05:27 01/07/25 05:27 Lab results: Laboratory Results - last 24 hr 01/07/25 01/07/25 05:27 08:19 WBC 4.9 RBC 4.00 L Hgb 13.1 L Hct 37.7 L MCV 94.3 MCH 32.8 MCHC 34.7 RDW 14.1 Plt Count 174 MPV 9.1 L Immature Gran % (Auto) 0.2 Neut % (Auto) 70.7 Lymph % (Auto) 16.4 L [place] % (Auto) 8.0 Eos % (Auto) 3.9 Baso % (Auto) 0.8 Lymph # (Auto) 0.8 L [place] # (Auto) 0.4 Eos # (Auto) 0.2 Baso # (Auto) 0.0 Abs Immat Gran (auto) 0.01 Absolute Neuts (auto) 3.5 Absolute Nucleated RBC 0.000 Nucleated RBC % (auto) 0.0 Sodium 142 Potassium 4.0 Chloride 108 Carbon Dioxide 26 Anion Gap 12 BUN 15 Creatinine 0.74 Estim Creat Clear Calc 84.5 Estimated GFR > 60 Random Glucose 103 Calcium 9.0 Total Bilirubin 0.5 AST 20 ALT 12 Alkaline Phosphatase 52 Troponin I High Sens < 2.7 < 2.7 Total Protein 6.3 L Albumin 3.9 Assessment and Plan (1) HTN (hypertension): Status: Acute (2) Acute chest pain: Status: Acute (3) Paroxysmal atrial fibrillation: Status: Acute Plan 84-year-old gentleman presenting for chest pain. He has been complaining of dull ache on the left side of the chest which is persistent and reproducible. This seems to be musculoskeletal in origin. He also had severe sharp chest discomfort along with pressure last night. His biomarkers and active. EKGs not showing any dynamic changes. He was due to get a Lexiscan. Keep him NPO and we will do stress testing on him inpatient. Blood pressure well controlled. Thank you for allowing me to participate in the care of your patient. Please feel free to contact me if you have any questions. Procedures Date of Service Date of Service: 01/07/25
[2025-01-07] MEDS: Rivaroxaban 20 MG TABLET PO (17:34)
[2025-01-07] MEDS: Acetaminophen 325 MG TABLET 975 MG PO (17:36)
[2025-01-07] MEDS: levETIRAcetam 250 MG TABLET 750 MG PO (18:36)
[2025-01-07] MEDS: dilTIAZem HCL CD 180 MG CAP.ER.24H PO (18:36)
[2025-01-07] MEDS: Atorvastatin Calcium 20 MG TABLET PO (18:37)
[2025-01-07] MEDS: Tamsulosin HCL 0.4 MG CAPSULE PO (22:00)
[2025-01-08 04:00] VITALS: BP 140/70; PULSE 54; RESP 16; TEMP 36.1; O2SAT 96
[2025-01-08 07:51] VITALS: BP 151/71; PULSE 52; RESP 18; TEMP 36.4; O2SAT 96
[2025-01-08 07:54] LABS: Hematocrit 38.7 % (42.0-52.0); Hemoglobin 13.2 g/dl (14.0-18.0); Mean Corpuscular HGB Conc 34.1 g/dl (31.0-36.0); Mean Corpuscular Hemoglobin 32.6 pg (27.0-33.0); Mean Corpuscular Volume 95.6 fL (80.0-98.0); Mean Platelet Volume 9.6 fL (9.4-12.4); Platelet Count 179 X10*3/uL (160-400); Red Blood Count 4.05 X10*6/uL (4.60-5.80); Red Cell Distribution Width 13.9 % (11.0-16.0); White Blood Count 5.1 X10*3/uL (4.8-10.8)
[2025-01-08 08:27] LABS: Anion Gap 10 (12-20); Blood Urea Nitrogen 16 mg/dL (9-16); Calcium 9.1 mg/dL (8.4-10.2); Carbon Dioxide 27 mmol/L (22-29); Chloride 107 mmol/L (96-108); Creatinine Clr Calc Pharmacy 79.6; Estimated Glomerular Filt Rate > 60; Glucose Random 100 mg/dL (60-115); Potassium 4.3 mmol/L (3.3-5.1); Sodium 140 mmol/L (135-145)
[2025-01-08] MEDS: levETIRAcetam 250 MG TABLET 750 MG PO ×2 (08:41→21:42)
[2025-01-08] MEDS: Tamsulosin HCL 0.4 MG CAPSULE PO ×2 (08:41→21:43)
[2025-01-08] MEDS: Escitalopram Oxalate 20 MG TABLET PO (08:41)
[2025-01-08 08:42] VITALS: PULSE 62
[2025-01-08] MEDS: Topiramate 25 MG TABLET PO (08:42)
[2025-01-08] MEDS: Atorvastatin Calcium 20 MG TABLET PO (08:42)
[2025-01-08] MEDS: Ascorbic Acid 500 MG TABLET PO (08:42)
[2025-01-08] MEDS: dilTIAZem HCL CD 180 MG CAP.ER.24H PO (08:42)
[2025-01-08] MEDS: 0.9 % Sodium Chloride Flush 3 ML SYRINGE IVFLUSH ×3 (08:44→21:43)
--- NOTE | 2025-01-08 09:46 | PM.PNCARD ---
Subjective Subjective Date of Service: 01/08/25 Interval history: seen and examined. Evaluated patient and also discussed with . It seems that he has been having atypical chest pains and ordered stress test as an outpatient. However, he landed up getting admitted for the same reason. Stress testing is being scheduled today. He apparently woke up with left-sided chest pain which was sharp and then became a dull ache. However, he does not get anything exertional. Known coronary disease based on prior coronary CTA. Review of Systems Review of Systems Yes all other systems are reviewed and are negative Constitutional: Reports as per HPI and Reports no additional constitutional complaints Eyes: Reports as per HPI and Denies no additional eye complaints Denies system reviewed and no additional complaints, except as documented and Reports as per HPI Cardiovascular: Reports as per HPI, Reports no additional cardiovascular complaints, Denies acrocyanosis, Denies cool extremities, Reports chest pain, Denies leg edema, Denies lightheadedness, Denies palpitations and Denies dyspnea Respiratory: Reports as per HPI, Denies no additional respiratory complaints and Denies dyspnea Gastrointestinal: Reports as per HPI and Denies no additional gastrointestinal complaints Genitourinary: Reports no additional male genitourinary complaints and Reports as per HPI Musculoskeletal: Reports no additional musculoskeletal complaints and Reports as per HPI Skin/Breast: Reports system reviewed and no additional complaints, except as docu Reports system reviewed and no additional complaints, except as documented and Reports as per HPI Psychiatric: Reports no additional psychiatric complaints and Reports as per HPI Endocrine: Reports no additional endocrine complaints, Reports as per HPI and Denies palpitations Hematologic/Lymphatic: Reports no additional hematologic/lymphatic complaints and Reports as per HPI Allergic/Immunologic: Reports no additional allergic/immunologic complaints and Reports as per HPI Physical Exam Vital Signs: Last Vital Signs Temp 97.6 F 01/08/25 07:51 Pulse 62 01/08/25 08:42 Resp 18 01/08/25 07:51 BP 151/71 H 01/08/25 07:51 Pulse Ox 96 01/08/25 07:51 O2 Del Method Room Air 01/08/25 07:51 BMI result Body Mass Index 31.3 Const General: comfortable and no acute distress Orientation/consciousness: patient oriented x3 HEENT Other: Unremarkable Head: Yes normal to inspection Neck Neck: Yes normal visual inspection Chest Chest palpation & inspection: normal inspection of the chest Resp Auscultation: clear to auscultation bilaterally Cardio Palpation: normal PMI Heart sounds: S1 normal heart sound present, S2 normal heart sound present, no gallops, no murmurs and no rubs GI Palpation (GI): Soft to palpation Back/Spine/Pelvis Other: unremarkable Skin General skin exam: no rashes or lesions noted Neuro General: patient oriented x3 Extrem General: Yes normal to inspection Psych Mental Status: mental status grossly normal Objective Labs and Meds 01/08/25 07:24 01/08/25 07:24 Lab results: Laboratory Results - last 24 hr 01/08/25 07:24 WBC 5.1 RBC 4.05 L Hgb 13.2 L Hct 38.7 L MCV 95.6 MCH 32.6 MCHC 34.1 RDW 13.9 Plt Count 179 MPV 9.6 Absolute Nucleated RBC 0.000 Nucleated RBC % (auto) 0.0 Sodium 140 Potassium 4.3 Chloride 107 Carbon Dioxide 27 Anion Gap 10 L BUN 16 Creatinine 0.79 Estim Creat Clear Calc 79.6 Estimated GFR > 60 Random Glucose 100 Calcium 9.1 Progress Note: A&P Assessment and plan (1) Precordial chest pain: Status: Acute (2) CAD (coronary artery disease): Status: Acute Plan Coronary CTA reviewed from 2021- Left main with < 30% stenosis. LAD with heavy calcification in the proximal to mid section with multifocal < 50% stenosis. Second diagonal with < 70% ostial stenosis. Second diagonal with about 50% ostial stenosis. Proximal part of distal LAD with multifocal about 50% stenosis. Circumflex is a small vessel. Ramus with heavy calcification in the proximal segment with multifocal, < 50% stenosis. Right coronary with heavy calcification from proximal to distal RCA with multifocal, < 50% stenosis. Currently, unremarkable troponins. EKG with underlying sinus rhythm, 57/Min; mild [place] prolongation but no ischemic changes. Atypical chest pain, normal EKG, negative biomarkers, known coronary disease with findings as described above in CTA from 2021. Plan is to get a pharmacological stress test with Lexiscan. Based on the findings, we will plan further care. Time Spent With Patient Time: Total time managing care of this patient today ____ minutes. Progress Note: Quality Stroke Does the patient have a stroke diagnosis?: No Procedures Date of Service Date of Service: 01/08/25
--- NOTE | 2025-01-08 10:28 | MHC.CM.PN ---
JERRICA 01/08. 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 Pt uses a cane, walker, and a wheelchair. Pts daughter will transport him home at discharge. HCP on file, but pt requested it be changed, as his Meghann 5 years ago. New HCP completed with pt naming his 2 daughters Devora and Genny, now on file. PCP: Dr. Grabiel Kasper
--- NOTE | 2025-01-08 10:35 | MHC.CM.PN ---
JERRICA 01/08. Pt self-care, lives at home alone. Pt uses a cane, walker, and a wheelchair. Pts daughter will transport him home at discharge. HCP on file, but pt requested it be changed, as his Meghann 5 years ago. New HCP completed with pt naming his 2 daughters Devora and Genny, now on file. PCP: Dr. Grabiel Kasper
[2025-01-08 12:00] VITALS: BP 142/63; PULSE 56; RESP 20; TEMP 36.4; O2SAT 96
[2025-01-08 15:42] VITALS: BP 136/63; PULSE 52; RESP 18; TEMP 36.3; O2SAT 96
[2025-01-08] MEDS: Rivaroxaban 20 MG TABLET PO (16:14)
[2025-01-08 19:07] VITALS: BP 127/61; PULSE 62; RESP 18; TEMP 37.1; O2SAT 96
--- NOTE | 2025-01-08 22:13 | P.PNIM_ITS ---
Subjective Subjective Date of Service: 01/08/25 Interval History: f/u on chest pain has had intermittent chest pain stress done, needs resting portion Physical Exam 2 Vital Signs: Vital Signs: Last Vital Signs Temp 98.7 F 01/08/25 19:07 Pulse 62 01/08/25 19:07 Resp 18 01/08/25 19:07 BP 127/61 01/08/25 19:07 Pulse Ox 96 01/08/25 19:07 O2 Del Method Room Air 01/08/25 19:07 BMI result Body Mass Index 31.3 Const: Other: General: AO X 3, no acute distress Resp: CTA bilateral CVS: S1,S2,RRR GI: +BS, NT, no distention Skin: No rash Neuro: motor grossly intact Psych: appropriate affect Objective Data Active Medications Acetaminophen (Acetaminophen 325 Mg Tablet) 975 mg PO Q6H PRN PRN Reason: Pain, Mild 1-3,fever,headache Last Admin: 01/07/25 17:36 Dose: 975 mg Documented By: PATRICIA Albuterol Sulfate (Albuterol Sulfate 90 Mcg 8 Gm Inhaler) 2 puff INHALE Q4H PRN PRN Reason: Wheezing Artificial Tears (Artificial Tears 15 Ml Drops) 1 drop EYE-BOTH TID PRN PRN Reason: Dry Eye(S) Ascorbic Acid (Ascorbic Acid 500 Mg Tablet) 500 mg PO DAILY [facility] Last Admin: 01/08/25 08:42 Dose: 500 mg Documented By: CORY Atorvastatin Calcium (Atorvastatin Calcium 20 Mg Tablet) 20 mg PO DAILY [facility] Last Admin: 01/08/25 08:42 Dose: 20 mg Documented By: CORY Calcium Carbonate (Calcium Carbonate 750 Mg Tab.Chew) 750 mg PO Q4H PRN PRN Reason: Heartburn Diltiazem HCl (Diltiazem Hcl Cd 180 Mg Cap.Er.24h) 180 mg PO DAILY [facility]; Protocol Last Admin: 01/08/25 08:42 Dose: 180 mg Documented By: CORY Escitalopram Oxalate (Escitalopram Oxalate 20 Mg Tablet) 20 mg PO DAILY [facility] Last Admin: 01/08/25 08:41 Dose: 20 mg Documented By: CORY Levetiracetam (Levetiracetam 250 Mg Tablet) 750 mg PO BID [facility] Last Admin: 01/08/25 21:42 Dose: 750 mg Documented By: SIMEON Magnesium Hydroxide (Milk Of Magnesia 30 Ml Oral.Susp) 30 ml PO DAILY PRN PRN Reason: Constipation Melatonin (Melatonin 3 Mg Tablet) 6 mg PO BEDTIME PRN PRN Reason: Insomnia Nitroglycerin (Nitroglycerin 0.4 Mg Tab.Subl) 0.4 mg SUBLINGUAL Q5MX3 PRN PRN Reason: Angina Ondansetron HCl (Ondansetron Hcl 4 Mg/2 Ml Vial) 4 mg IVPUSH Q8H PRN PRN Reason: Nausea and Vomiting Oxycodone HCl (Oxycodone Hcl Immed Release 5 Mg Tablet) 5 mg PO Q6H PRN PRN Reason: Pain, Severe (Pain Scale 7-10) Rivaroxaban (Rivaroxaban 20 Mg Tablet) 20 mg PO DAILY@1700 [facility] Last Admin: 01/08/25 16:14 Dose: 20 mg Documented By: CORY Sodium Chloride (0.9 % Sodium Chloride Flush 3 Ml Syringe) 3 ml IVFLUSH QSHIFT [facility] Last Admin: 01/08/25 21:43 Dose: 3 ml Documented By: SIMEON Tamsulosin HCl (Tamsulosin Hcl 0.4 Mg Capsule) 0.4 mg PO BID [facility] Last Admin: 01/08/25 21:43 Dose: 0.4 mg Documented By: SIMEON Topiramate (Topiramate 25 Mg Tablet) 25 mg PO DAILY [facility] Last Admin: 01/08/25 08:42 Dose: 25 mg Documented By: CORY Labs 01/08/25 07:24 01/08/25 07:24 Labs: Laboratory Results - last 24 hr 01/08/25 07:24 MCV 95.6 MCH 32.6 MCHC 34.1 RDW 13.9 Plt Count 179 MPV 9.6 Absolute Nucleated RBC 0.000 Nucleated RBC % (auto) 0.0 Anion Gap 10 L Estim Creat Clear Calc 79.6 Estimated GFR > 60 Random Glucose 100 Calcium 9.1 Assessment and Plan (1) Acute chest pain: Status: Acute Plan Patient is an 84-year-old male with a past medical history significant for CAD, paroxysmal AFib on Xarelto, seizure disorder and HTN, who presented to the ED due to severe low sided chest pain which occurred around 230 this morning that woke him and he rated it a 9/10. Acute chest pain, neg acs with troponin i stress with myoview, resting portion pending CAD - Continue statin Paroxysmal AFib - continue rate control and Xarelto Seizure disorder - continue topamax and keppra HTN - continue home meds Class 1 obesity - BMI 30.9 - weight loss encouraged Med rec pending Full code VTE prophylaxis: Xarelto Patient with acute chest pain requiring admission for observation with telemetry and cardiology consultation. Quality Stroke Does the patient have a stroke diagnosis?: No VTE Prior VTE?: No VTE Risk Level:: Medical - moderate - high VTE Device Contraindication: Treatment Not Indicated VTE Drug Contraindication: N/A - Med Ordered
[2025-01-09] VITALS: BP 132/62; PULSE 54; RESP 17; TEMP 36.9; O2SAT 95
[2025-01-09 03:59] VITALS: BP 149/68; PULSE 61; RESP 16; TEMP 37.2; O2SAT 95
[2025-01-09 07:20] VITALS: BP 144/56; PULSE 56; RESP 18; TEMP 36.4; O2SAT 96
[2025-01-09] MEDS: Ascorbic Acid 500 MG TABLET PO (08:14)
[2025-01-09] MEDS: Escitalopram Oxalate 20 MG TABLET PO (08:14)
[2025-01-09] MEDS: Topiramate 25 MG TABLET PO (08:14)
[2025-01-09] MEDS: 0.9 % Sodium Chloride Flush 3 ML SYRINGE IVFLUSH (08:14)
[2025-01-09] MEDS: levETIRAcetam 250 MG TABLET 750 MG PO (08:14)
[2025-01-09] MEDS: Tamsulosin HCL 0.4 MG CAPSULE PO (08:15)
[2025-01-09] MEDS: Atorvastatin Calcium 20 MG TABLET PO (08:15)
[2025-01-09] MEDS: dilTIAZem HCL CD 180 MG CAP.ER.24H PO (08:16)
--- NOTE | 2025-01-09 10:10 | PM.PNCARD ---
Subjective Subjective Date of Service: 01/09/25 Interval history: Patient had a 2nd portion of stress test today. He feels overall fine. No new concerns. Review of Systems Review of Systems Yes all other systems are reviewed and are negative Constitutional: Reports as per HPI and Reports no additional constitutional complaints Eyes: Reports as per HPI and Denies no additional eye complaints Denies system reviewed and no additional complaints, except as documented and Reports as per HPI Cardiovascular: Reports as per HPI, Reports no additional cardiovascular complaints, Denies acrocyanosis, Denies cool extremities, Reports chest pain, Denies leg edema, Denies lightheadedness, Denies palpitations and Denies dyspnea Respiratory: Reports as per HPI, Denies no additional respiratory complaints and Denies dyspnea Gastrointestinal: Reports as per HPI and Denies no additional gastrointestinal complaints Genitourinary: Reports no additional male genitourinary complaints and Reports as per HPI Musculoskeletal: Reports no additional musculoskeletal complaints and Reports as per HPI Skin/Breast: Reports system reviewed and no additional complaints, except as docu Reports system reviewed and no additional complaints, except as documented and Reports as per HPI Psychiatric: Reports no additional psychiatric complaints and Reports as per HPI Endocrine: Reports no additional endocrine complaints, Reports as per HPI and Denies palpitations Hematologic/Lymphatic: Reports no additional hematologic/lymphatic complaints and Reports as per HPI Allergic/Immunologic: Reports no additional allergic/immunologic complaints and Reports as per HPI Physical Exam Vital Signs: Last Vital Signs Temp 97.6 F 01/09/25 07:20 Pulse 56 01/09/25 07:20 Resp 18 01/09/25 07:20 BP 144/56 H 01/09/25 07:20 Pulse Ox 96 01/09/25 07:20 O2 Del Method Room Air 01/09/25 07:20 BMI result Body Mass Index 31.3 Const General: comfortable and no acute distress Orientation/consciousness: patient oriented x3 HEENT Other: Unremarkable Head: Yes normal to inspection Neck Neck: Yes normal visual inspection Chest Chest palpation & inspection: normal inspection of the chest Resp Auscultation: clear to auscultation bilaterally Cardio Palpation: normal PMI Heart sounds: S1 normal heart sound present, S2 normal heart sound present, no gallops, no murmurs and no rubs GI Palpation (GI): Soft to palpation Back/Spine/Pelvis Other: unremarkable Skin General skin exam: no rashes or lesions noted Neuro General: patient oriented x3 Extrem General: Yes normal to inspection Psych Mental Status: mental status grossly normal Objective Labs and Meds 01/08/25 07:24 01/08/25 07:24 Progress Note: A&P Assessment and plan (1) Precordial chest pain: Status: Acute (2) CAD (coronary artery disease): Status: Acute Plan Coronary CTA reviewed from 2021- Left main with < 30% stenosis. LAD with heavy calcification in the proximal to mid section with multifocal < 50% stenosis. Second diagonal with < 70% ostial stenosis. Proximal part of distal LAD with multifocal about 50% stenosis. Circumflex is a small vessel. Ramus with heavy calcification in the proximal segment with multifocal, < 50% stenosis. Right coronary with heavy calcification from proximal to distal RCA with multifocal, < 50% stenosis. Currently, unremarkable troponins. EKG with underlying sinus rhythm, 57/Min; mild [place] prolongation but no ischemic changes. Myocardial perfusion imaging study shows no ischemia. Fixed defect in the inferior wall thought to be from diaphragmatic attenuation artifact but at the inferior apex could not exclude a small nontransmural infarct. Overall, atypical chest pain, normal EKG, normal troponins, no ischemia on stress test but coronary disease based on CTA from 2021. We will plan on medical management for now. Add long-acting nitrates to see if that makes any difference. Discharge planning. We will arrange outpatient follow-up. Time Spent With Patient Time: Total time managing care of this patient today ____ minutes. Progress Note: Quality Stroke Does the patient have a stroke diagnosis?: No Procedures Date of Service Date of Service: 01/09/25
--- NOTE | 2025-01-09 11:10 | PM.DS ---
DS: Providers Provider Date of Service: 01/09/25 Date of admission: 01/07/25 06:22 Date of discharge: 01/09/25 Primary care physician: Grabiel Kasper MD Consults: 01/07/25 06:31 Consult to Cardiology Routine Consulting Provider: [facility] Reason for consultation: chest pain Has provider been notified: No DS: Diagnosis Discharge Diagnosis (1) Precordial chest pain: Status: Resolved (2) CAD (coronary artery disease): Status: Inactive DS: Summary Hospital Course Hospital Course: admission hpi Chief Complaint: Chest pain Patient is an 84-year-old male with a past medical history significant for CAD, paroxysmal AFib on Xarelto, seizure disorder and HTN, who presented to the ED due to severe low sided chest pain which occurred around 230 this morning that woke him and he rated it a 9/10. Air/sided chest pain worsening over the past 2 weeks. EMS gave him aspirin 324 mg and nitroglycerin however pt's pain had resolved prior to recieving. he reports the pain lasted about 10 minutes but he still feels sore when he touches the left lateral chest. The patient has been having episodes of chest pain intermittently that resolve on their own. Is history of similar symptoms but has never had a cardiac catheterization. Workup in the ED showed negative troponin as well as EKG without ischemic changes. EKG did show sinus bradycardia with first-degree AV block. Chest x-ray is still pending however patient does not have URI symptoms, fever or white count. Plan to admit patient for observation with telemetry and cardiology consult. Hospital course: Patient was admitted for management of chest pain, there was no evvidence of acute ACS by ECG or cardiac troponin being normal. Cardiology arraanged a stress test with myocardium perfusion imaging showing.. Time Attestation Discharge Coordination Time (in mins): 35 Quality: Safe Use of Opioids Does Pt have an Active Cancer Diagnosis on the Problem List?: No Quality: Stroke Does the patient have a stroke diagnosis?: No Physical Exam Vital Signs: Vital Signs: Selected Entries 01/09/25 07:20 Temperature 97.6 F Pulse Rate 56 Respiratory Rate 18 Blood Pressure 144/56 H Pulse Oximetry 96 Oxygen Delivery Me thod Room Air DS: Data Data Completed and Pending Labs on day of discharge: Laboratory Results - last 24 hr 01/08/25 07:24 WBC 5.1 RBC 4.05 L Hgb 13.2 L Hct 38.7 L MCV 95.6 MCH 32.6 MCHC 34.1 RDW 13.9 Plt Count 179 MPV 9.6 Absolute Nucleated RBC 0.000 Nucleated RBC % (auto) 0.0 Sodium 140 Potassium 4.3 Chloride 107 Carbon Dioxide 27 Anion Gap 10 L BUN 16 Creatinine 0.79 Estim Creat Clear Calc 79.6 Estimated GFR > 60 Random Glucose 100 Calcium 9.1 Discharge Plan Discharge Anticipated Discharge Date/Time: 01/09/25 12:41 Patient Disposition: Home, Self-Care Discharge Diagnosis: Chest pain Referrals: Grabiel Kasper MD [[place] Care Provider, [facility] - 1 Week Discharge Medications: New isosorbide mononitrate 30 mg tablet extended release 24 hr 30 mg PO DAILY Qty: 90 0RF Continued Xarelto 20 mg tablet 20 mg PO QPM Qty: 90 3RF diltiazem HCl 180 mg capsule,extended release 24hr 180 mg PO DAILY Qty: 90 3RF topiramate 25 mg tablet 25 mg PO DAILY albuterol sulfate 90 mcg/actuation HFA aerosol inhaler 2 puff inhalation Q4H PRN (Reason: wheezing) ascorbic acid (vitamin C) 500 mg capsule 500 mg PO DAILY tamsulosin 0.4 mg capsule 0.4 mg PO BID atorvastatin 20 mg tablet 20 mg PO DAILY carboxymethylcellulose sodium 0.5 % drops 1 drp ophthalmic (eye) TID PRN (Reason: Dry Eye(S)) levetiracetam 1,000 mg tablet 750 mg PO BID nitroglycerin 0.3 mg tablet, sublingual 0.3 mg sublingual Q5M citalopram 40 mg tablet 40 mg PO DAILY Discharge Orders: Discharge Order (Routine); Ordered 01/09/25 Ordered By: Manjeet Medeiros Diet: Advance to usual diet Activity on Discharge: As tolerated Stand Alone Forms: Patient Portal Discharge page Print Language: Maori Care Plan Goals: recovery from chest pain Health Concerns: chest pain Plan of Treatment: continue taking your medications as usual follow up with your heart doctor and regular docotor in a week take imdur 30 mg daily to prevent check pain, Dr. Blake will arrange for a follow up Assessment: see above Discharge Date/Time: 01/09/25 13:08
--- NOTE | 2025-01-09 13:10 | MHC.CM.PN ---
Pt has been medically cleared for DC, he will go home via private transport, plan is self care.
== END 2025-01-09 13:08 | disposition home or self-care (01) ==
LOC: HO.ED 05:33 → HO.EDOVER 06:36 → HO.IMC 16:38
PROVIDERS: Admitting Provider Physician Assistant; Emergency Provider Internal Medicine; PCP Family Medicine; Visit Provider Internal Medicine
DX: R07.2 Precordial pain (principal); I25.10 Atherosclerotic heart disease of native coronary artery without angina pectoris; I48.0 Paroxysmal atrial fibrillation; R07.9 Chest pain, unspecified; R06.02 Shortness of breath; R51.9 Headache, unspecified; G40.909 Epilepsy, unspecified, not intractable, without status epilepticus; I10 Essential (primary) hypertension; R00.1 Bradycardia, unspecified; E66.811 Obesity, class 1; Z68.30 Body mass index [BMI] 30.0-30.9, adult; Z79.01 Long term (current) use of anticoagulants; Z79.899 Other long term (current) drug therapy
CPT/HCPCS: 36415; 71046; 78452; 80048; 80053; 84484; 85025; 85027; 93005; 93017; 99222; 99285; A9500; J0280; J2785

== ENCOUNTER → 2025-01-07 06:22 | Outpatient (BNV) | payer OTHER, SELFPAY | PROVIDERS: Admitting Provider Physician Assistant; Emergency Provider Internal Medicine; PCP Family Medicine; Visit Provider Internal Medicine Cardiovascular Disease | DX: R07.2 Precordial pain (principal); I25.10 Atherosclerotic heart disease of native coronary artery without angina pectoris | CPT/HCPCS: 99232 ==

== ENCOUNTER → 2025-01-07 06:22 | Outpatient (BNV) | payer OTHER, SELFPAY | PROVIDERS: Admitting Provider Physician Assistant; Emergency Provider Internal Medicine; PCP Family Medicine; Visit Provider Physician Assistant | DX: R07.9 Chest pain, unspecified (principal); E66.811 Obesity, class 1 | CPT/HCPCS: 99222; 99232 ==

== ENCOUNTER 2025-02-02 12:40 | Outpatient (AMB) | payer OTHER, SELFPAY ==
[2025-02-02 13:07] VITALS: BP 122/66; PULSE 59; BMI 29.9
--- NOTE | 2025-02-02 13:07 | MHC.OFFVIS ---
Vital Signs 02/02/25 13:07 Height 5 ft 9 in Weight 202 lb 13.204 oz BMI 29.9 BP 122/66 Blood Pressure Location Lt brachial Position Sitting Pulse 59 Pulse Source Pulse Oximeter Intake Visit Reasons: 3 week f/up Allergies penicillin V Allergy (Severe, Verified 01/07/25 04:59) Hives piroxicam (PIROXICAM) Allergy (Intermediate, Verified 01/07/25 04:59) HIVES/SOB rofecoxib (From VIOXX) Allergy (Intermediate, Verified 01/07/25 04:59) HIVES/SOB Penicillins (PENICILLINS) Allergy (Unknown, Verified 01/07/25 04:59) UNKNOWN phenacetin (PHENACETIN) Allergy (Unknown, Verified 01/07/25 04:59) UNK From VICODIN Allergy (Intermediate, Uncoded 01/07/25 04:59) HIVES/SOB Medication List - Last Reconciled 02/02/25 by Shun Siddiqi NP albuterol sulfate 90 mcg/actuation 2 puffs inhalation Q4H PRN ascorbic acid (vitamin C) 500 mg PO DAILY atorvastatin 20 mg PO DAILY carboxymethylcellulose sodium 0.5% 1 drp ophthalmic (eye) TID PRN citalopram 40 mg PO DAILY diltiazem HCl CD 180 mg PO DAILY isosorbide mononitrate ER 30 mg PO DAILY levetiracetam 750 mg PO BID nitroglycerin 0.3 mg sublingual Q5M rivaroxaban (Xarelto) 20 mg PO QPM tamsulosin 0.4 mg PO BID topiramate 25 mg PO DAILY HPI Comments Details: This is an 84-year-old male patient coming in for a hospital discharge follow-up visit, accompanied by his daughter. Patient with a history of coronary artery disease, paroxysmal AFib, hypertension, and seizure disorder. Patient was recently seen in the hospital for chest pain that woke him up and underwent a myocardial perfusion study inpatient. Patient's workup was negative for ACS. Patient states that he has been feeling much better since hospital discharge and is denying any exertional chest pain, shortness of breath, palpitations, dizziness, orthopnea, PND, leg edema, presyncope, or syncope. Patient was discharged on isosorbide which he did not continue taking due to a miscommunication. Otherwise patient is reporting compliance with all of his medications. [facility] Medical History (Updated 02/02/25 @ 16:10 by Shun Siddiqi NP) Paroxysmal atrial fibrillation HTN (hypertension) CAD (coronary artery disease) Class 1 obesity Chronic anticoagulation CAD (coronary artery disease) Seizure disorder Surgical History History of left knee surgery History of right hip replacement History of ear surgery S/P skin biopsy Social History Household Members: None Housing: House Do you presently have visiting nurse or other home services: No Alcohol intake: current Alcohol intake frequency: holidays/special occasions only Alcohol type: beer Comment: pt refusing bed alarm Patient Tobacco Use Status: Former Tobacco user Years Smoked: 30 +/- service: No Review of Systems Const Denies weakness ENT Denies dizziness Card Denies chest pain, Denies chest pain with activity, Denies syncope, Denies rapid heart rate, Denies pedal edema, Denies edema, Denies leg edema, Denies lightheadedness, Denies palpitations, Denies dyspnea, Denies dyspnea on exertion and Denies orthopnea Resp Denies cough, Denies dyspnea and Denies dyspnea on exertion GI Denies hematochezia and Denies change in stool character Musc Denies abnormal gait, Denies muscle cramps, Denies muscle weakness, Denies numbness, Denies radiating pain into limb and Denies tingling Neuro Denies abnormal gait, Denies dizziness, Denies syncope, Denies numbness, Denies tingling and Denies weakness Endo Denies palpitations Physical Exam Vital Signs: Last Vital Signs Pulse 59 02/02/25 13:07 BP 122/66 02/02/25 13:07 BMI result Body Mass Index 29.9 Const General: cooperative, healthy appearing, comfortable and no acute distress Orientation/consciousness: patient oriented x3 HEENT Head: Yes normal to inspection Neck Neck: Yes normal visual inspection, Yes trachea midline and Yes supple Chest Chest palpation & inspection: normal inspection of the chest Resp Effort & Inspection: normal respiratory effort Auscultation: clear to auscultation bilaterally, no crackles, no rales, no rhonchi and no wheezes Cardio Jugular venous distension: no JVD Palpation: normal PMI Rate: regular rate Rhythm: regular rhythm Heart sounds: S1 normal heart sound present, S2 normal heart sound present, no click, no gallops, no murmurs and no rubs Peripheral pulses: Peripheral pulses 2+ throughout GI Inspection: Yes normal to inspection Palpation (GI): Soft to palpation Auscultation: normal bowel sounds Skin General skin exam: no rashes or lesions noted Neuro General: patient oriented x3 Extrem General: Yes normal to inspection, No no pedal edema and No calf tenderness Psych Appearance: grossly normal Mental Status: mental status grossly normal Speech and movement: Normal speech and movement present Assessment & Plan Assessment & Plan (1) CAD (coronary artery disease): Code(s): I25.10 - Atherosclerotic heart disease of mohegan coronary artery without angina pectoris Category: Medical Plan: History of nonobstructive coronary artery disease. Patient has been having some atypical chest pain for which patient was planned for a outpatient stress test. However due to recent hospital visit with chest pain, patient had a myocardial perfusion study with vasodilating agent inpatient on 01/08/2025 that showed no clear evidence of ischemia due to probable artifact causing fixed defect of inferior wall. However, at this time patient would like to continue with medical management given his resolution of symptoms. Patient is against any invasive procedures at this time. Therefore we will obtain a lipid profile with a goal of LDL less than 70. Continue statin therapy. We will resume patient back on isosorbide. Patient understands that in case of uncontrolled LDL, we may need to get a coronary CTA to which patient is agreeable on. (2) Paroxysmal atrial fibrillation: Code(s): I48.0 - Paroxysmal atrial fibrillation Category: Medical Plan: History of paroxysmal AFib. Continue Xarelto for full anticoagulation therapy. No reported signs of bleeding. Continue diltiazem for rate control approach. Recent kidney function within normal limits. (3) HTN (hypertension): Code(s): I10 - Essential (primary) hypertension Category: Medical Plan: Blood pressure is well-controlled. Continue current regimen. Advised monitoring blood pressures at home with a goal of less than 130/80. (4) Hospital discharge follow-up: Code(s): Z09 - Encounter for follow-up examination after completed treatment for conditions other than malignant neoplasm Plan: As above. Advised heart healthy diet, exercise as tolerated, medication adherence, and management of vascular risk factors. Follow up in [address] Blake. In the interim, patient will call the office with any concerns or change in symptoms. Advised to seek ER care in case of exertional chest pain not resolved with rest. This note was generated using voice recognition software. While every effort has been made to ensure accuracy and proper project development manager, there may be occasional errors that could affect the content or meaning of the described symptoms. Orders: Orders Lipid Panel Today I25.10 - Atherosclerotic heart disease of mohegan coronary artery without angina pectoris Medications: Refilled isosorbide mononitrate ER 30 mg PO DAILY 90 tabs 0RF Coding Level of Care Code Est Pt Level 4 (95673) Complex EM visit Add On G2211 Diagnoses CAD (coronary artery disease) I25.10 Paroxysmal atrial fibrillation I48.0 HTN (hypertension) I10 Hospital discharge follow-up Z09 Time Spent (min) 32 Comment Time spent in reviewing the chart, test results, assessment, counseling and documentation.
== END 2025-02-02 13:31 | disposition home or self-care (01) ==
LOC: HO.HCS 12:41
PROVIDERS: PCP Family Medicine
DX: I25.10 Atherosclerotic heart disease of native coronary artery without angina pectoris (principal); I48.0 Paroxysmal atrial fibrillation; I10 Essential (primary) hypertension; Z09 Encounter for follow-up examination after completed treatment for conditions other than malignant neoplasm
CPT/HCPCS: 99214

== ENCOUNTER → 2025-02-02 12:40 | Outpatient (BNVA) | payer OTHER, SELFPAY | PROVIDERS: PCP Family Medicine | DX: Z09 Encounter for follow-up examination after completed treatment for conditions other than malignant neoplasm (principal); I25.10 Atherosclerotic heart disease of native coronary artery without angina pectoris; I48.0 Paroxysmal atrial fibrillation; I10 Essential (primary) hypertension | CPT/HCPCS: 99212 ==

== ENCOUNTER 2025-04-08 06:43 | Emergency (ER) | payer OTHER, SELFPAY ==
--- OUTSIDE RECORDS SUMMARY | 2024-05-05 09:00 | XMS_ITS | Encounter Summary ---
Author Organization [facility] [place] [address] Care Team Providers Care It Service Manager Name Role Phone Grabiel Kasper MD Primary Care Pr ovider Encounter Details Date Type Department Care Team (Late st Contact Info) Description 05/05/2024 9:00 AM EDT Hospital Encounter TH HISTORIC ENCOUNTERS EASTERN CONVERSION ONLY Grabiel Kasper MD [address] [place] [address] Social History Tobacco Use Types Packs/Day Years Used Date Smoking Tobacco: Former Cigarettes Q uit: 07/19/1989 Smokeless Tobacco: Former Alcohol Use Standard Drinks/Week Comments Not Currently 0 (1 standard drink = 0.6 oz pur e alcohol) Interpersonal Safety Answer Date Record ed Physical Abuse 12/05/2024 Verbal Abuse 12/05/2024 Sex and Gender Information Value Date Recorded Sex Assigned at Not on file Legal Sex Male 6:44 AM EST Gender Identity Not on file Sexual Orientation Not on file documented as of this encounter Plan of Treatment Upcoming Encounters Date Type Department Care Team (Late st Contact Info) Description 05/01/2025 1:15 PM EDT Office Visit Adult Medicine [address] [phone] Angela Hernandez PA [address] [place] [address] 05/07/2025 2:30 PM EDT Office Visit Orthopedic Surgery - [place] [address] [phone] Dank Rose, DPM [address] [phone] 06/11/2025 2:00 PM EST Office Visit Adult Medicine [facility] [address] [place], [place] [phone] Grabiel Kasper MD [address] [place], [place] documented as of this encounter Goals Goal Patient Goal Type Associated Problems Recent Progress Patient-Stated? Author No pain General Yes Lonnie aMckey, PT PT STG x 8 visits from [facility] 12/08/24 General No Lonnie Mackey, PT [...] from poor to fair PT STG Frome [facility] 12-08-24 General No Lonnie Mackey, PT [...] on filedocumented in this encounter Care Teams It Service Manager Relationship Specialty Start Date End Date Grabiel Kasper MD [address] [facility], [place] PCP - General Internal Medicine 02/02/22 documented as of this encounter
--- NOTE | ~2025-04-08 | XR_ITS ---
CLINICAL HISTORY: Neurological symptoms Chest radiograph, 1 view Comparison: CR - XR CHEST 2V - 01/07/25 05:10 EDT Findings: The cardiomediastinal silhouette is not enlarged. Aortic arch calcifications. Pulmonary vascularity is unremarkable. No focal consolidation or effusion. No pneumothorax. IMPRESSION: No acute cardiopulmonary findings. This document has been electronically signed by: Gideon Lion DO on 04/08/2025 09:36:13
--- NOTE | ~2025-04-08 | CT_ITS ---
CLINICAL HISTORY: Intermittent diplopia CT head without contrast Comparison: 05/09/2024 Findings: No intra-axial mass, midline shift, hydrocephalus, or acute hemorrhage. Mild age-related cerebral hemispheric white matter ischemic changes. There is no sinus or mastoid fluid. Bilateral cataract surgery. No skull fracture. Tiny left parieto-occipital cortical calcification may be due to a granuloma. IMPRESSION: 1. No acute intracranial findings. This document has been electronically signed by: Amarilys Blanco MD on 04/08/2025 09:03:17
[2025-04-08 06:48] VITALS: BP 134/64; PULSE 62; RESP 16; TEMP 36.7; O2SAT 95; BMI 31.4
--- NOTE | 2025-04-08 07:02 | ECG_ITS ---
Test Reason : Intermittent diplopia Blood Pressure : */* mmHG Vent. Rate : 60 BPM Atrial Rate : 60 BPM P-R Int : 216 ms QRS Dur : 82 ms QT Int : 426 ms P-R-T Axes : 14 6 38 degrees QTcB Int : 426 ms Sinus rhythm with 1st degree A-V block with Premature atrial complexes Otherwise normal ECG When compared with ECG of 07-Jan-2025 04:47, Premature atrial complexes are now Present Referred By: Bob Mak Electronically Signed By: TIMMY ENRIQUEZ
--- NOTE | 2025-04-08 07:04 | ED_ITS ---
HPI - Eye Problem General Chief complaint: Eye Problems Stated complaint: Eye Problems Time Seen by Provider: 04/08/25 07:02 Source: patient and family Mode of arrival: ambulatory Limitations: no limitations History of Present Illness ED Provider: DR. Mak HPI Narrative: 84-year-old male came in for evaluation history of 2 months of intermittent on and off ?eyes are crossing ?and intermittent periods of double vision. Episodes last for less than 20 seconds then patient get back to his normal, no speech problem, no weakness, no numbness, patient discussed that with his PCP who advised him to come to the ED for further evaluation. Currently patient has no eye symptoms, no visual disturbance or double vision, no neurological deficit. Last episode of double vision was yesterday. No fever, no chills, no eye trauma. Related Data Home Medications ?Medication ?Instructions ?Recorded ?Confirmed albuterol sulfate 90 mcg/actuation 2 puff inhalation Q 4H PRN wheezing 12/12/20 02/02/25 aerosol inhaler ascorbic acid (vitamin C) 500 mg 500 mg PO DAILY 05/2202/02/25 capsule atorvastatin 20 mg tablet 20 mg PO DAILY 11/25/2101/16 tamsulosin 0.4 mg capsule 0.4 mg PO BID 11/25/2102/02 carboxymethylcellulose sodium 0.5 1 drp ophthalmic (ey e) TID PRN Dry 03/12/22 02/02/25 % eye drops Eye(S) citalopram 40 mg tablet 40 mg PO DAILY 04/19/2301/16 levetiracetam 1,000 mg tablet 750 mg PO BID 04/19/23 0 02/02/25 nitroglycerin 0.3 mg sublingual 0.3 mg sublingual Q5M 12/02/23 02/02/25 tablet topiramate 25 mg tablet 25 mg PO DAILY 01/07/2501/16 Previous Rx's ?Medication ?Instructions ?Recorded rivaroxaban 20 mg tablet (Xarelto) 20 mg PO QPM #90 ta bs 06/02/24 diltiazem HCl 180 mg 180 mg PO DAILY #90 caps 02/09 capsule,extended release 24 hr isosorbide mononitrate 30 mg 30 mg PO DAILY #90 tabs 0 02/02/25 tablet,extended release 24 hr Allergies Allergy/AdvReac Type Severity Reaction Status Date / Time penicillin V Allergy Severe Hives Verified 04/08/25 06:51 piroxicam (PIROXICAM) Allergy Intermediate HIVES/SOB Verified 04/08/25 06:51 rofecoxib (From VIOXX) Allergy Intermediate HIVES/SOB Verified 04/08/25 06:51 Penicillins (PENICILLINS) Allergy Unknown UNKNOWN Verified 04/08/25 06:51 phenacetin (PHENACETIN) Allergy Unknown UNK Verified 04/08/25 06:51 From VICODIN Allergy Intermediate HIVES/SOB Uncoded 04/08/25 06:51 Review of Systems 2 Review of Systems: All other systems are reviewed and are negative Constitutional: Reports as per HPI and Reports no additional constitutional complaints Eyes: Reports as per HPI and Reports no additional eye complaints Reports system reviewed and no additional complaints, except as documented Cardiovascular: Reports as per HPI and Reports no additional cardiovascular complaints Respiratory: Reports as per HPI and Reports no additional respiratory complaints Gastrointestinal: Reports as per HPI and Reports no additional gastrointestinal complaints Genitourinary: Reports no additional female genitourinary complaints Musculoskeletal: Reports no additional musculoskeletal complaints Skin/Breast: Reports system reviewed and no additional complaints, except as docu Psychiatric: Reports no additional psychiatric complaints Endocrine: Reports no additional endocrine complaints Hematologic/Lymphatic: Reports no additional hematologic/lymphatic complaints Allergic/Immunologic: Reports no additional allergic/immunologic complaints Reports system reviewed and no additional complaints, except as documented and Reports Abnormal speech present [facility] Past Medical History Medical History Paroxysmal atrial fibrillation HTN (hypertension) CAD (coronary artery disease) Class 1 obesity Chronic anticoagulation CAD (coronary artery disease) Seizure disorder Surgical History History of left knee surgery History of right hip replacement History of ear surgery S/P skin biopsy Social History Social History Household Members: None Housing: House Do you presently have visiting nurse or other home services: No Alcohol intake: current Alcohol intake frequency: holidays/special occasions only Alcohol type: beer Comment: pt refusing bed alarm Patient Tobacco Use Status: Former Tobacco user Years Smoked: 30 +/- Advance Directives: No Advance Directives Information Provided: Yes Do you have a plan to hurt others: No Plan service: No Physical Exam 2 Vital Signs: Vital Signs: Last Vital Signs Temp 98.1 F 04/08/25 10:25 Pulse 76 04/08/25 10:25 Resp 16 04/08/25 10:25 BP 119/60 04/08/25 10:25 Pulse Ox 96 04/08/25 10:25 O2 Del Method Room Air 04/08/25 10:25 BMI result Body Mass Index 31.4 Vital signs have been reviewed and appear to be correct. Blood pressure elevated. Heart rate normal. Respiratory rate normal. Temperature normal. Oxygen saturation normal. Appearance: Alert. Oriented X3. No acute distress. Head: Normal external exam. Normocephalic. Atraumatic. No Morrow signs noted. No raccoon eyes noted Eyes: VA right 20/40 left 20/30. Patient reports worsening of blurred vision with gazing to the right General: appearance normal, both eyes and all related structures Visual Stephenson: normal visual stephenson by confrontation Alignment and Position: alignment normal and position normal Periorbital: periorbital findings normal Eyelids: Yes eyelids normal Conjunctivae: conjunctivae normal Sclerae: sclerae normal Corneas: corneas normal Pupils: Equal, round and reactive pupils present and Pupil accommodation reflex normal EOM: EOM abnormal (Limited abduction of right eye) and No Nystagmus present Direct Ophthalmoscopy: normal light reflex, no photophobia, no papilledema and fundi normal bilaterally. External I ultrasound shows no retinal detachment, no vitreous hemorrhage, no dilated of optic nerve sheath or indication of papilledema. ENT: TM's Normal. Pharynx normal. Uvula midline. Moist mucous membranes. No trismus noted. No drooling noted. No muffled voice noted. Neck: Normal inspection. Neck supple. FROM. No adenopathy. Thyroid Normal. No meningeal signs. No neck mass noted. CVS: Normal heart rate and rhythm. Heart sound normal. No murmurs noted. Pulses normal throughout. Respiratory: No respiratory distress. Painless inspiration. Breath sounds normal. No wheezes/rales/rhonchi noted. Chest nontender. No accessory muscle usage noted or decreased air movement noted. Abdomen: Soft and nontender. Bowel sounds normal in all 4 quadrants. No distention noted. No organomegaly noted. No visible injury noted. Back: No CVA tenderness. Full range of motion noted. Skin: Skin warm and dry. Normal skin color. Normal skin turgor. No rashes/lesions/lacerations noted. Extremities: No lower extremity edema. Extremities exhibit normal range of motion. Extremities nontender. Neuro: Mental status: Normal attention, orientation, memory, and affect. Cranial nerves: Pupils are equal, round and reactive to light, EOMI, visual stephenson are fall, face is symmetric, facial sensations are normal. Motor examination normal muscle tone, strength to 4 extremities. DTR are +2, planter's are flexor. Sensory exam; normal coordination, no ataxia, gait stable. Cerebellar exam: Afsttv-uz-[id number] and qsrh-rd-kebv is normal. Extrapyramidal system: No tremors, no rigidity with normal facial expressions. Pronator drift not present NIH Stroke Scale Time: 10:27 Level of Consciousness: Alert Level of Consciousness Questions: Answers both questions correctly Level of Consciousness Commands: Performs both tasks correctly Best Gaze: Normal Visual: No visual loss Facial Palsy: Normal Motor Arm (Right): No drift Motor Arm (Left): No drift Motor Leg (Right): No drift Motor Leg (Left): No drift Limb Ataxia: Absent Sensory: Normal Best Language: No aphasia Dysarthia: Normal Extinction and Inattention: No abnormality Score: 0 Course Reevaluation(s) Reevaluation #1: 84-year-old male came in for evaluation of intermittent diplopia ?eyes cross ?patient has unremarkable eye/neuro exam with negative head CT. No acute issue at this point the patient's symptoms has been going for 2 months on and off, patient will need eye/neuro evaluation as an outpatient. Inflammatory marker with a normal Time: 10:28 Medical Decision Making Differential Diagnosis Differential Diagnoses: The differential diagnosis associated with the presentation includes (Myasthenia gravis, TIA, CVA, cranial nerve paralysis, intracranial pathology, electrolyte derangement, severe anemia, temporal arteritis.) Admission/Observation Consideration of admission/observation: Escalation of care including admission/observation considered Lab Data MDM Lab Attestation statement: I reviewed the patient's lab results. 04/08/25 07:22 04/08/25 07:22 Labs: Lab Results 04/08/25 04/08/25 Range/Units 07:22 07:57 WBC 6.1 (4.8-10.8) X10*3/uL RBC 4.07 L (4.60-5.80) X10*6/uL Hgb 13.5 L (14.0-18.0) g/dl Hct 39.4 L (42.0-52.0) % MCV 96.8 (80.0-98.0) fL MCH 33.2 H (27.0-33.0) pg MCHC 34.3 (31.0-36.0) g/dl RDW 14.5 (11.0-16.0) % Plt Count 189 (160-400) X10*3/uL MPV 9.6 (9.4-12.4) fL Immature Gran % (Auto) 0.3 (0.0-0.4) % Neut % (Auto) 78.8 H (45-73) % Lymph % (Auto) 11.5 L (20-40) % Harvey % (Auto) 5.6 (2-11) % Eos % (Auto) 3.1 (0-4) % Baso % (Auto) 0.7 (0-2) % Lymph # (Auto) 0.7 L (1.2-4.9) X10*3/uL Harvey # (Auto) 0.3 (0.1-1.2) X10*3/uL Eos # (Auto) 0.2 (0.0-0.4) X10*3/uL Baso # (Auto) 0.0 (0.0-0.2) X10*3/uL Abs Immat Gran (auto) 0.02 (0.00-0.03) X10*3/uL Absolute Neuts (auto) 4.8 (2.0-8.3) x10*3/uL Absolute Nucleated RBC 0.000 (0.0-0.012) X10*3/uL Nucleated RBC % (auto) 0.0 (0.0-0.2) /100WBC ESR 13 (0-15) MM/HR PT 20.5 H D (10.9-12.4) SEC INR 1.8 H (0.9-1.1) Sodium 140 (135-145) mmol/L Potassium 3.8 (3.3-5.1) mmol/L Chloride 109 H (96-108) mmol/L Carbon Dioxide 24 (22-29) mmol/L Anion Gap 11 L (12-20) BUN 14 (9-16) mg/dL Creatinine 0.86 (0.5-1.4) mg/dL Estim Creat Clear Calc 75.5 Estimated GFR > 60 Random Glucose 130 H (60-115) mg/dL Calcium 8.9 (8.4-10.2) mg/dL Total Bilirubin 0.7 (0.0-1.0) mg/dL Direct Bilirubin 0.3 (0.0-0.5) mg/dL AST 22 (5-37) U/L ALT 16 (0-40) U/L Alkaline Phosphatase 51 (39-117) U/L Troponin I High Sens 4.4 D (<3.5-35.0) ng/L C-Reactive Protein 0.29 (< or = 0.50) mg/dL Total Protein 6.6 (6.5-8.0) g/dL Albumin 4.2 (3.5-5.0) g/dL Lipase 8 (8-78) U/L Urine Color Yellow Urine Appearance Clear Urine pH 5.5 (5.0-9.0) Ur Specific [place] 1.020 (1.005-1.025) Urine Protein Negative (Neg-Trace) mg/dL Urine Glucose (UA) Negative (Negative) mg/dL Urine Ketones Negative (Negative) mg/dL Urine Blood Negative (Negative) Urine Nitrite Negative (Negative) Ur Leukocyte Esterase Negative (Negative) Independent Interpretation I performed an independent interpretation of an: Plain X-Ray (Chest: No acute cardiopulmonary findings.) and CT Scan (Head: No acute intracranial pathology.) Radiology Impression Discussion of test interpretation with radiology: I have reviewed the radiologist's reading. Discharge Plan Discharge Clinical Impression: Transient diplopia Patient Disposition: Home, Self-Care Instructions: Diplopia (ED) Prescriptions: No Action Xarelto 20 mg tablet 20 mg PO QPM Qty: 90 3RF diltiazem HCl 180 mg capsule,extended release 24hr 180 mg PO DAILY Qty: 90 3RF topiramate 25 mg tablet 25 mg PO DAILY albuterol sulfate 90 mcg/actuation HFA aerosol inhaler 2 puff inhalation Q4H PRN (Reason: wheezing) ascorbic acid (vitamin C) 500 mg capsule 500 mg PO DAILY tamsulosin 0.4 mg capsule 0.4 mg PO BID atorvastatin 20 mg tablet 20 mg PO DAILY carboxymethylcellulose sodium 0.5 % drops 1 drp ophthalmic (eye) TID PRN (Reason: Dry Eye(S)) levetiracetam 1,000 mg tablet 750 mg PO BID nitroglycerin 0.3 mg tablet, sublingual 0.3 mg sublingual Q5M isosorbide mononitrate 30 mg tablet extended release 24 hr 30 mg PO DAILY Qty: 90 0RF citalopram 40 mg tablet 40 mg PO DAILY Referrals: Kirk Osuna [Physician, Ophthalmology] Lincoln Jon MD [Physician, Neurology] Print Language: Maltese
[2025-04-08 07:29] LABS: MANUAL DIFF FLAG NO
[2025-04-08 07:32] LABS: Hematocrit 39.4 % (42.0-52.0); Hemoglobin 13.5 g/dl (14.0-18.0); Imm Gran Abs Auto 0.02 X10*3/uL (0.00-0.03); Imm Gran Pct Auto 0.3 % (0.0-0.4); Lymphocytes Absolute Auto 0.7 X10*3/uL (1.2-4.9); Mean Corpuscular HGB Conc 34.3 g/dl (31.0-36.0); Mean Corpuscular Hemoglobin 33.2 pg (27.0-33.0); Mean Corpuscular Volume 96.8 fL (80.0-98.0); NRBC Abs Auto 0.000 X10*3/uL (0.0-0.012); NRBC Pct Auto 0.0 /100WBC (0.0-0.2); Platelet Count 189 X10*3/uL (160-400); Red Blood Count 4.07 X10*6/uL (4.60-5.80); White Blood Count 6.1 X10*3/uL (4.8-10.8)
[2025-04-08 07:36] LABS: INTERNATIONAL NORM RATIO 1.8 (0.9-1.1); Prothrombin Time 20.5 SEC (10.9-12.4)
[2025-04-08 08:02] VITALS: BP 119/60; RESP 16; O2SAT 100
[2025-04-08 08:03] LABS: Alanine Aminotransferase 16 U/L (0-40); Albumin Level 4.2 g/dL (3.5-5.0); Alkaline Phosphatase 51 U/L (39-117); Anion Gap 11 (12-20); Aspartate Amino Transferase 22 U/L (5-37); Blood Urea Nitrogen 14 mg/dL (9-16); Calcium 8.9 mg/dL (8.4-10.2); Carbon Dioxide 24 mmol/L (22-29); Chloride 109 mmol/L (96-108); Creatinine Clr Calc Pharmacy 75.5; Estimated Glomerular Filt Rate > 60; Lipase 8 U/L (8-78); Potassium 3.8 mmol/L (3.3-5.1); Sodium 140 mmol/L (135-145); Total Protein 6.6 g/dL (6.5-8.0)
[2025-04-08 08:05] LABS: Appearance Urine Clear; Glucose Urine UA Negative (Negative); PH 5.5 (5.0-9.0); Specific Gravity - Urine 1.020 (1.005-1.025)
[2025-04-08 08:10] LABS: Troponin-I High Sensitivity 4.4 ng/L (<3.5-35.0)
--- OUTSIDE RECORDS SUMMARY | 2025-04-08 08:12 | XMS_ITS | Encounter Summary ---
Author Organization [facility] Address [address] [place] [address] Care Team Providers Care Wick Tender Name Role Phone Grabiel Kasper MD Primary Care [facility] Reason for Referral * Consultation (Routine) - Pending Review Specialty Diagnoses / Procedures Referred By Shaw pfeiffer Referred To Contact Dermatology Diagnoses Screening for malignant neoplasm of skin Grabiel Kasper MD [address] [place] [address] Phone: tel: fax: Referral ID Status Reason Start Date Expiration Date Visits Requested Visits Authorized [id number] Pending Review Specialty Services Required 03/15/2025 03/15/2026 1 1 Reason for Visit * Reason Onset Date Comments Referral 03/15/2025 Encounter Details Date Type Department Care Team (Late st Contact Info) Description 03/15/2025 Telephone Adult Medicine [address] [phone] Grabiel Kasper MD [address] [place] [address] Social History Tobacco Use Types Packs/Day Years [...] as of this encounter Progress Notes * Sinai Stanton - 03/15/2025 9:33 AM EDT Referral Request: What insurance does the patient have today? Payor: [employer] / Plan: [employer]AN / Product Type: *No Product type* / Referrals cannot be processed if the insurance is not accurate. If the insurance listed above in red is NO BILLING INFORMATION FOUND FOR THIS ENCOUTNER The patients correct insurance must be obtained and registered in [facility] or their referral can not be processed. Who is calling to request this referral? If the caller is not the patient, what is their name? not applicable Ask the patient WHO referred them to this specialty: Patient self referred FIRST and LAST NAME of SPECIALIST PATIENT is seeing: Dr. Edgard Rodriguez What specialty is this? dermatology DIAGNOSIS Patient is being seen for (Not a body part or a procedure): Z12.83 Have you seen this SPECIALIST for this PROBLEM/DX before? If YES, when? No Have you checked REVIEW or the APPT DESK to see if this referral has already been done or has visits left? yes Is this visit: Initial Visit Address of Specialist: [address] [place] [address] Phone # of Specialist: [phone] Fax #: (if applicable): [phone] Does patient have an appointment scheduled?: yes Date of appointment- (including a retro-request): 03/15/25 Is this appointment related to: Not MVA, worker compensation, or surgery related documented in this encounter Plan of Treatment Upcoming Encounters Date Type Department Care Team (Late st Contact Info) Description 05/01/2025 1:15 PM EDT Office Visit [address] [phone] Angela Hernandez PA [address] [place] [address] 05/07/2025 2:30 PM EDT Office Visit Orthopedic Surgery [facility] [address] [phone] Dank Rose, DPM [address] [phone] 06/11/2025 2:00 PM EST Office Visit [address] [phone] Grabiel Kasper MD [address] [place] [address] Scheduled Referrals Name Type Priority Associated Diagnoses Order Schedule Ambulatory referral to Dermatology Outpatient Referral Routine Screening for malignant neoplasm of skin 1 Occurrences starting 03/15/2025 until 03/15/2026 documented as of this encounter Goals Goal Patient Goal Type Associated Problems Recent Progress Patient-Stated? Author No pain General Yes Lonnie Mackey PT PT STG x 8 visits from [facility] 12/08/24 General No Lonnie Mackey, [...] recruitment from poor to fair PT STG Tha cam 12-08-24 General No Lonnie Mackey, PT Note: [x] = completed goal [] = NOT completed goal [] Pt will be able to perform sit<>supine without requiring UE support, [] Pt will be able to consistently negotiate stairs reciprocally , [] Pt will increased walking capacity to 1 hr to allow going to store documented as of this encounter Visit Diagnoses Diagnosis Screening for malignant neoplasm of skin- Primary Screening for malignant neoplasm of the skin documented in this encounter Care Teams Wick Tender Relationship Specialty Start Date End Date Grabiel Kasper MD [address] [place], [place] PCP - General Internal Medicine 02/02/22 documented as of this encounter
--- OUTSIDE RECORDS SUMMARY | 2025-04-08 08:12 | XMS_ITS ---
Author Organization Patient Business Ser [facility] [place] Address [address] [place] [address] Care Team Providers Care Organ Pipe Finisher Name Role Phone Grabiel Kasper MD Primary Care Pr ovider Active Problems Problem Noted Date Diagnosed Date Allergic rhinitis 02/05/2025 Assessment & Plan (02/05/2025 9:45 AM EDT): His intermittent cough is likely an allergic cough. Lungs are clear to ausculation. Advised to use Flonase twice daily. Orders: fluticasone propionate (FLONASE) 50 mcg/actuation nasal spray; Administer 1 spray into each nostril 2 (two) times a day. Primary osteoarthritis of left knee 10/06/2024 Malignant melanoma ([facility] V24, [facility] V28) Overview (10/06/2024): Left inner ear; Following with dermatology; watchful waiting; patient declined extensive reconstruction of the left ear Assessment & Plan (02/05/2025 9:45 AM EDT): Continue dermatology follow-up for routine exams. Has an appt for 03/21/25 Left carpal tunnel syndrome 06/14/2023 Lumbar radiculopathy 06/14/2023 Chronic venous insufficiency 11/18/2022 Assessment & Plan (10/06/2024 11:49 AM EDT): Continue Lasix as needed Orders: furosemide (LASIX) 20 mg tablet; Take 1 tablet (20 mg total) by mouth 1 (one) time each day if needed (edema). CAD (coronary artery disease) 10/13/2022 Overview (04/13/2024): Diffuse 3 vessel disease - Dr. Blake Assessment & Plan (02/05/2025 9:45 AM EDT): Continue cardiology follow-up. Continue Xarelto daily, atorvastatin 20 mg, Cardizem and Imdur 30 mg daily Assessment & Plan (10/06/2024 11:49 AM EDT): Continue statin Orders: Lipid panel with reflex to direct LDL; Future Actinic keratoses 08/20/2022 Assessment & Plan (02/05/2025 9:45 AM EDT): Continue dermatology follow-up for routine exams. 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 I do think that the pain is most likely muscular due to the fact that is reproducible when I touch the left side of his chest. Advised to come back to see me in 1 year or before if needed. Assessment & Plan (02/05/2025 9:45 AM EDT): Continue pulmonology follow-up. Continue Anoro daily and albuterol as needed Assessment & Plan (10/06/2024 11:49 AM EDT): [...] Last Assessment & Plan: I explained Mr. Palumob and his daughter that the dyspnea on [...] side of the heart. Cerebrovascular accident (CVA) (CMS/HCC V24, CMS /HCC V28) 09/17/2021 Benign prostatic hyperplasia with urinary freque ncy 09/17/2021 Assessment & Plan (02/05/2025 9:45 AM EDT): continue tamsulosin 0.4 mg p.o. daily Assessment & Plan (10/06/2024 11:49 AM EDT): [...] sleep study to see if he needs Assessment & Plan (02/05/2025 9:45 AM EDT): He is currently not interested in any sleep apnea treatment Peripheral polyneuropathy 06/13/2021 Multiple renal cysts 06/13/2021 Osteoarthritis of right hip 09/17/2020 Depression 09/11/2020 Assessment & Plan (02/05/2025 9:45 AM EDT): Will decrease citalopram to 20 mg daily. See HPI Orders: citalopram (CeleXA) 20 mg tablet; Take 1 tablet (20 mg total) by mouth 1 (one) time each day. Assessment & Plan (10/06/2024 11:49 AM EDT): Stable. Continue Celexa 40 mg daily Carotid artery stenosis 07/19/2019 Overview (04/13/2024): Carotid US: :IMPRESSION: 50-69% stenosis of the left internal carotid artery by visual inspection.0- 49% stenosis of the right internal carotid artery. Patient declined surgical intervention. Neural foraminal stenosis of cervical spine 11/18 Spinal stenosis, lumbar 02/26/2017 Atrial fibrillation ([facility] V24, [facility] V28) 0 11/20/2015 Assessment & Plan (02/05/2025 9:45 AM EDT): Continue Cardizem 180 mg daily and Xarelto 20 mg daily. Continue cardiology follow-up with Dr. Blake Orders: CBC and differential; Future Assessment & Plan (10/06/2024 11:49 AM EDT): Continue cardiology follow-up. Continue Cardizem 180 mg daily and Xarelto 20 mg daily Orders: CBC and differential; Future Seizure disorder ([facility] V24, CMS/HCC V28) 10/2015 Assessment & Plan (02/05/2025 9:45 AM EDT): Continue neurology follow up. Continue topamax 25ng daily Assessment & Plan (10/06/2024 11:49 AM EDT): Continue neurology follow-up. Continue Keppra 750 mg twice daily DDD (degenerative disc disease), lumbar 10/30/19 16 Gallstone 03/09/2013 Eczematous dermatitis 10/14/2012 Protein S deficiency ([facility] V24) 07/05/2009 Assessment & Plan (02/05/2025 9:45 AM EDT): Continue Xarelto daily Assessment & Plan (10/06/2024 11:49 AM EDT): Continue Xarelto 20 mg daily Essential hypertension, benign 01/11/2006 Assessment & Plan (02/05/2025 9:45 AM EDT): Well-controlled. Continue Cardizem Assessment & Plan (10/06/2024 11:49 AM EDT): Blood pressure is stable. Continue Cardizem 180 mg daily Orders: Comprehensive metabolic panel; Future Transient cerebral ischemia 11/16/2005 Overview (04/13/2024): Carotid US Mri normal 1997;p <50% 2011 Obesity (BMI 30.0-34.9) 11/16/2005 Hepatitis C, chronic (CMS/HCC V24, CMS/HCC V28) 11/16/2005 Overview (04/13/2024): Genotype 1A. Hearing loss 11/16/2005 Current Oncology Plans No current plan information found. Past Plans No past plan information found. Radiation Treatments * No radiation treatments are documented for this patient in [facility]. Treatments may have been administered in another system. Lifetime Dose Tracking * Chemical Lifetime Dose Automatic Entry Manual Entr y CTDIvol 16.48 mGy 16.48 mGy 0 mGy Resolved Problems Problem Noted Date Diagnosed Date Resolved Date Diverticulitis of colon without hemorrhage 11/16/2005 10/06/2024
--- OUTSIDE RECORDS SUMMARY | 2025-04-08 08:12 | XMS_ITS | Clinical Summary ---
Author Organization Patient Business Ser [facility] Address [address] [place] [address] Care Team Providers Care Audit Clerk Name Role Phone Grabiel Kasper MD Primary [...] 1 (one) time each day. 4 Active acetaminophen (TYLENOL) 500 mg tablet Take 1 tablet (500 mg total) by mouth 2 (two) times a day. 7 Active Refresh Tears 0.5 % ophthalmic solution 4 Active clotrimazole-betam ethasone (LOTRISONE) 1-0.05 % cream 4 04/14/20 25 Active umeclidinium-vilan teroL (Anoro Ellipta) 62.5-25 mcg/actuation inhalerIndications :Chronic obstructive pulmonary disease, unspecified COPD type (CMS/[facility] V24, CMS/HCC V28) Inhale 1 puff by mouth 1 (one) time each day. 1 each 4 05/23/20 25 Active ammonium lactate (LAC-HYDRIN) 12 % lotion Apply topically if needed. 4 Active Xarelto 20 mg tablet Take 1 tablet (20 mg total) by mouth 1 (one) time each day with dinner. 4 Active albuterol HFA (PROAIR HFA ; [...] each day. 90 each 1 4 Active furosemide (LASIX) 20 mg tabletIndications: Chronic venous insufficiency Take 1 tablet (20 mg total) by mouth 1 (one) time each day if needed (edema). 90 tablet 1 5 Active tamsulosin (FLOMAX) 0.4 mg 24 hr capsule TAKE 1 CAPSULE BY MOUTH TWO TIMES A DAY 30 MINUTES AFTER SAME MEAL EACH DAY 180 capsule 1 5 Active topiramate (TOPAMAX) 25 mg tablet Take 1 tablet (25 mg total) by mouth 1 (one) time each day. 5 Active diclofenac (VOLTAREN) 1 % topical gelIndications:Tatiana benitez osteoarthritis of left knee Apply 1 g topically 3 (three) times a day. 90 g 2 5 Active atorvastatin (LIPITOR) 20 mg tablet Take 1 tablet (20 mg total) by mouth at bedtime. 90 each 1 5 Active isosorbide mononitrate (IMDUR) 30 mg 24 hr tablet Take 1 tablet (30 mg total) by mouth 1 (one) time each day. 5 Active lactulose (CHRONULAC) solutionIndication s:Constipation, unspecified constipation type Take 30 mL (20 g total) by mouth 2 (two) times a day. 5400 mL 1 5 08/04/19 26 Active citalopram (CeleXA) 20 mg tabletIndications: Major depressive disorder with single episode, in partial remission ([facility] V24) Take 1 tablet (20 mg total) by mouth 1 (one) time each day. 90 each 1 5 08/04/19 26 Active fluticasone propionate (FLONASE) 50 mcg/actuation nasal sprayIndications:S easonal allergic rhinitis due to pollen SHAKE LIQUID AND USE 1 SPRAY IN EACH NOSTRIL TWICE DAILY 48 g 5 Active Active Problems Problem Noted Date [...] osteoarthritis of left knee 10/06/2024 Malignant melanoma ([facility] V24, [facility] V28) Overview (10/06/2024): Left inner ear; Following [...] COPD by GOLD cl assification (CMS/HCC V24, CMS/[facility] V28) 04/28/2022 Overview (04/13/2024): Last Assessment & Plan: 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 I explained him that the atypical chest pain is not the result of COPD and his dyspnea on exertion is the results of multiple factors including deconditioning and stage I COPD. I explained Leonardo and his daughter that if dyspnea exertion increases, he presented with more pronounced cough he should let me know immediately but in the meantime he should let him know his life skills coordinator regarding the left- sided chest pain. I [...] needed Diffusion capacity of lung (dl), decreased 06/17 /2022 Overview (04/13/2024): Last Assessment & Plan: Differential [...] side of the heart. Cerebrovascular accident (CVA) ([facility] V24, CMS /[facility] V28) 09/17/2021 Benign prostatic hyperplasia with urinary [...] 11/18 Spinal stenosis, lumbar 02/26/2017 Atrial fibrillation (CMS/HCC V24, CMS/[facility] V28) 0 11/20/2015 Assessment & Plan (02/05/2025 9:45 AM EDT): Continue Cardizem 180 mg daily and Xarelto 20 mg daily. Continue cardiology follow-up with Dr. Blake Orders: CBC and differential; Future Assessment & Plan (10/06/2024 11:49 AM EDT): Continue cardiology follow-up. Continue Cardizem 180 mg daily and Xarelto 20 mg daily Orders: CBC and differential; Future Seizure disorder (CMS/HCC V24, CMS/HCC V28) 10/2015 Assessment & Plan (02/05/2025 9:45 AM EDT): Continue neurology follow up. Continue topamax 25ng daily Assessment & Plan (10/06/2024 11:49 AM EDT): Continue neurology follow-up. Continue Keppra 750 mg twice daily DDD (degenerative disc disease), lumbar 10/30/19 16 Gallstone 03/09/2013 Eczematous dermatitis 10/14/2012 Protein S deficiency ([facility]/HCC V24) 07/05/2009 Assessment & Plan (02/05/2025 9:45 [...] Encounters Date Type Department Care Team Description 03/15/2025 Telephone Adult Medicine [address] [phone] Grabiel Kasper MD 02/27/2025 2:30 PM EDT Office Visit Orthopedics [address] [phone] Juve Menard PA Chronic pain of left knee (Primary Dx); Primary osteoarthritis of left knee 02/05/2025 9:00 AM EDT Office Visit Adult Medicine [address] [phone] Grabiel Kasper MD Longstanding persistent atrial fibrillation ([facility] V24, [facility] V28) (Primary Dx); Protein S deficiency ([facility] V24); Essential hypertension, benign; Major depressive disorder with single episode, in partial remission ([facility] V24); Stage 1 mild COPD by GOLD classification ([facility] V24, [facility] V28); Coronary artery disease involving [place] coronary artery of [place] heart without angina pectoris; Mixed hyperlipidemia; Benign prostatic hyperplasia with urinary frequency; Seizure disorder ([facility] V24, [facility] V28); Constipation, unspecified constipation type; Obstructive sleep apnea syndrome; Seasonal allergic rhinitis due to pollen; Actinic keratoses; Malignant melanoma, unspecified site ([facility] V24, [facility] V28) 02/02/2025 Telephone Orthopedics [address] [phone] Juve Menard PA 01/26/2025 8:45 AM EDT Office Visit Orthopedic[address] [phone] Juve Menard PA Chronic pain of left knee (Primary Dx); Primary osteoarthritis of left knee 01/18/2025 Telephone Adult Medicine [address] [phone] Grabiel Kasper MD from Last 3 Months Immunizations Name Administration Dates Next Due COVID-19 (Pfizer/Comirnaty) 12yo and older 04/14/2023 H1N1 Inj Preservative Free 09/23/2009 Hepatitis A Adult (Havrix; V aqta) 19yo and older 05/19/2017,10/08/2016 Hepatitis A-Hepatitis B Adul t (Twinrix) 18yo and older 05/19/2017,11/09/2016,10/08/2016 Hepatitis B (Pqqtuhx-X-Lupad , Recombivax HB-Adult) 19yo and older 05/19/2017,11/09/2016,10/08/2016 [...] History Surgery Date Site/Laterality Comments KNEE ARTHROPLASTY Left PROCEDURE: UT ARTHRS KNEE ABRASION ARTHRP/FURNACE AND WASH EQUIPMENT OPERATOR DRLG/MICROFX; COMMENT: x 2 left SHOULDER ARTHROSCOPY PROCEDURE: UT SURGICAL ARTHROSCOPY SHOULDER W/LSS&RESCJ ADS HERNIA REPAIR 2004 PROCEDURE: REPAIR UMBILICAL HERNIA OTHER SURGICAL HISTORY PROCEDURE: UT BIOPSY LIVER NEEDLE PERCUTANEOUS HIP ARTHROPLASTY 05/2007 Left PROCEDURE: HISTORICAL HIP REPLACEMENT OTHER SURGICAL HISTORY [...] of hemorrhage) Acquired hemolytic anemia, u nspecified (CMS/HCC V24, [facility] V28) age 29 DX:Acquired hemolytic anemi a, unspecified (HCC); COMMENT: Resolved - 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 Unspecified transient cerebr al ischemia 1997 DX:Unspecified transient cer ebral ischemia; COMMENT: Carotid US Mri normal 1997 Essential hypertension, benign 01/11/2006 D X:Essential hypertension, benign Chronic bronchitis ([facility] V24, [facility] V28) 09/23/2009 DX:Chronic bronchitis (HCC) Fibrosis of liver DX:Fibrosis of liver; COMMENT: Grade 3/4 bx 02/25 from Hep C Chest pain, atypical DX:Chest pa in, atypical; COMMENT: admit to [facility]; neg stress MIBI Lab test negative for COVID-19 virus 10/25/2020 DX:Lab test negative for COVID- 19 virus Actinic keratoses 08/20/2022 DX:Actinic ker atoses Acute cough 12/16/2022 DX:Acute cough Diverticulitis of colon with out hemorrhage 11/16/2005 Hyperlipidemia Aortic aneurysm ([facility] V24) Atrial fibrillation ([facility] V24, [facility] V28) CVA (cerebral vascular accid ent) ([facility] V24, [facility] V28) Seizures ([facility] V24, [facility] V28) COPD (chronic obstructive pu lmonary disease) ([facility] V24, [facility] V28) Sleep apnea Family History Medical History Relation Name Comments [...] Not Answered Alcohol Use Standard Drinks/Week Comments Not Currently [...] Sign Reading Time Taken Comments Blood Pressure 111/47 02/05/2025 8:39 AM EDT Pulse 71 02/05/2025 8:39 AM EDT Temperature 36.2 C (97.1 F) 02/05/2025 8:39 AM EDT Respiratory Rate 16 02/27/2025 1:59 PM EDT Oxygen Saturation 95% 02/05/2025 8:39 AM EDT Inhaled Oxygen Concentration - - Weight 93.9 kg (207 lb) 02/27/2025 1:59 PM EDT Height 175.3 cm (5' 9 ) 02/27/2025 1:59 PM EDT Body Mass Index 30.57 02/27/2025 1:59 PM EDT Plan of Treatment Upcoming Encounters Date Type Department Care Team (Late st Contact Info) Description 05/01/2025 1:15 PM EDT Office Visit Adult Medicine [address] [phone] Angela Hernandez PA [address] [place] [address] 05/07/2025 2:30 PM EDT Office Visit Orthopedic Surgery - [place] [phone] [phone] Dank Rose, DPM [address] [phone] 06/11/2025 2:00 PM EST Office Visit Adult Medicine [address] [phone] Grabiel Kasper MD [address] [place], [place] Health Maintenance Due Date Last Done Comments Social Influencers of Health Screening 05/20/2020 Depression Screening 07/19/2024 COVID-19 Vaccine (10 - Moderna risk season) 2025 04/12/2024, 04/14/2023, 11/16/2022, Additional history exists Influenza Vaccine (#1) 2025 , 03/29/2023, 03/27/2023, Additional history exists Hypertension/CHF/CAD Annual BMP Blood Test 10/09/2025 10/09/2024, 04/04/2024, 04/04/2024, Additional history exists Falls Risk Assessment 12/05/2025 12/05/2024 Cholesterol Screening (Lipid Panel) 10/09/2029 10/09/2024, 04/04/2024, [...] RSV Immunization Adult Patients Completed 04/14/2023, 04/14/2023 HIB Vaccines Aged Out No longer eligi [...] on patient's age to complete this topic Goals Goal Patient Goal Type Associated Problems Recent Progress Patient-Stated? Author No pain General Yes Lonnie Mackey, PT PT STG x 8 visits from [facility] 12/08/24 General No Lonnie Mackey, PT [...] from poor to fair PT STG Frome [facility] 12-08-24 General No Lonnie Mackey, PT Note: [x] = completed goal [] = NOT completed goal [] Pt will be able to perform sit<>supine without requiring UE support, [] Pt will be able to consistently negotiate stairs reciprocally , [] Pt will increased walking capacity to 1 hr to allow going to store Procedures Procedure Name Priority Date/Time Associated Diagnosis Comments UT ARTHROCENTESIS/ASPIRA TION/INJECTION MAJOR JOINT/BURSA W/O U/S GUIDANCE Routine 01/26/2025 8:45 AM EDT Primary osteoarthritis of left knee COMPREHENSIVE METABOLIC PANEL Routine 10/09/2024 8:54 AM EDT Essential hypertension, benign LIPID PANEL WITH REFLEX TO DIRECT LDL Routine 10/09/2024 8:54 AM EDT Chronic coronary microvascular dysfunction from Last 3 Months or Most Recently Relevant to Health Maintenance Results * UT ARTHROCENTESIS/ASPIRATION/INJECTION MAJOR JOINT/BURSA W/O U/S GUIDANCE (01/26/2025 8:45 AM EDT) Juve Bartlett PA - 01/26/2025 8:45 AM EDT FEMI Leal 01/26/2025 9:15 AM L Inj/Asp: L knee Indications: pain Details: 22 G needle, anterolateral approach Medications: 4 mL lidocaine 1 %; 80 mg methylPREDNISolone acetate 80 mg/mL Informed Consent: Site: Knee Laterality: Left Relevant images/test results available and reviewed: yes Health status cleared: Yes Procedure/treatment, purpose, treatment alternatives, risks/potential complications and benefits explained: yes Risk/complications/benefits details: Risks include but are not limited to: The treatment may not accomplish the desired results. Additionally bleeding, infection, damage to tendon, nerve, cartilage, muscle; thinning or lightening of the skin in the area of injection; flushing or redness of the face, elevated blood pressure or blood sugar, allergic reaction, rash, increased pain Benefits include relief of inflammation and pain Patient questions answered: yes Patient agrees, verbalizes understanding, and wants to proceed: yes Consent given by: Patient Informed consent discussion completed by Physician/ELIU with patient: Verbal Pre-procedure timeout performed: yes Juve KAHN IN CLINIC/BEDSIDE ORDERABLES Fin al Result * Lipid panel with reflex to direct LDL (10/09/2024 8:54 AM EDT) Cholesterol 117 0 - 200 mg/dL LAB CHEMISTRY METHOD 10/09/2024 2:00 PM EDT [facility] Triglycerides 92 0 - 150 mg/dL LAB CHEMISTRY METHOD 10/09/2024 2:00 PM EDT [facility] HDL 45 >=40 mg/dL LAB CHEMISTRY METHOD 10/09/2024 2:00 PM EDT [facility] LDL Calculated 54 0 - 100 mg/dL LAB CHEMISTRY METHOD 10/09/2024 2:00 PM EDT [facility] VLDL Cholesterol Gabriele 18.4 mg/dL LAB CHEMISTRY METHOD 10/09/2024 2:00 PM EDT [facility] Non HDL Chol. (LDL+VLDL) 72 <145 mg/dL LAB CHEMISTRY METHOD 10/09/2024 2:00 PM T [facility] Chol/HDL Ratio 2.6 0.0 - 4.4 LAB CHEMISTRY METHOD 10/09/2024 2:00 PM T [facility] Blood Venous blood specimen / Unknown Venipuncture / Unknown 10/09/2024 8:54 AM EDT 10/09/2024 8:54 AM EDT Grabiel Kasper MD LAB BLOOD ORDERA BLES Final Result [facility] [address] [place] [address], * (ABNORMAL) Comprehensive metabolic panel (10/09/2024 8:54 AM EDT) Sodium 137 133 - 145 mmol/L LAB CHEMISTRY METHOD 10/09/2024 2:[address] [facility] Potassium 4.0 3.5 - 5.5 mmol/L LAB CHEMISTRY METHOD 10/09/2024 2:[address] [facility] Chloride 105 96 - 110 mmol/L LAB CHEMISTRY METHOD 10/09/2024 2:[address] [facility] CO2 25 21 - 32 mmol/L LAB CHEMISTRY METHOD 10/09/2024 2:[address] [facility] Anion Gap 7 3 - 11 LAB CHEMISTRY METHOD 10/09/2024 2:[address] [facility] Glucose 109(H) 70 - 100 mg/dL LAB CHEMISTRY METHOD 10/09/2024 2:[address] [facility] BUN 12 5 - 25 mg/dL LAB CHEMISTRY METHOD 10/09/2024 2:[address] [facility] Creatinine 0.80 0.70 - 1.30 mg/dL LAB CHEMISTRY METHOD 10/09/2024 2:[address] [facility] eGFR 88 >=60 mL/min/1. 73m2 LAB CHEMISTRY METHOD 10/09/2024 2:[address] [facility] Comment:Calculation based on the Chronic Kidney Disease Epidemiology Collaboration (CKD-EPI) equation refit without adjustment for race. BUN/Creatinine Ratio 15.0 LAB CHEMISTRY METHOD 10/09/2024 2:[address] [facility] Calcium 9.0 8.5 - 10.5 mg/dL LAB CHEMISTRY METHOD 10/09/2024 2:[address] [facility] AST (SGOT) 17 10 - 42 unit/L LAB CHEMISTRY METHOD 10/09/2024 2:[address] [facility] ALT (SGPT) 20 10 - 60 unit/L LAB CHEMISTRY METHOD 10/09/2024 2:[address] [facility] Alkaline Phosphatase 60 42 - 121 unit/L LAB CHEMISTRY METHOD 10/09/2024 2:[address] [facility] Total Protein 6.8 6.0 - 8.0 g/dL LAB CHEMISTRY METHOD 10/09/2024 2:[address] [facility] Albumin 3.7 3.2 - 5.0 g/dL LAB CHEMISTRY METHOD 10/09/2024 2:[address] [facility] Total Bilirubin 0.6 0.0 - 1.4 mg/dL LAB CHEMISTRY METHOD 10/09/2024 2:[address] [facility] Blood Venous blood specimen / Unknown Venipuncture / Unknown 10/09/2024 8:54 AM EDT 10/09/2024 8:54 AM EDT us Oyinkansola Oyenike Ogundipe MD LAB BLOOD ORDERA BLES Final Result [facility] [address] [place] [address], from Last 3 Months or Most Recently Relevant to Health Maintenance Insurance [employer] Care Teams Audit Clerk Relationship Specialty Start Date End Date Grabiel Kasper MD [address] [facility], [place] PCP - General Internal Medicine 02/02/22
[2025-04-08 10:25] VITALS: BP 119/60; PULSE 76; RESP 16; TEMP 36.7; O2SAT 96
[2025-04-08 11:10] VITALS: BP 119/60; PULSE 76; RESP 16; TEMP 36.7; O2SAT 96
== END 2025-04-08 11:11 | disposition home or self-care (01) ==
PROVIDERS: Emergency Provider Emergency Medicine
DX: H53.2 Diplopia (principal); I44.0 Atrioventricular block, first degree; R29.90 Unspecified symptoms and signs involving the nervous system; R94.31 Abnormal electrocardiogram [ECG] [EKG]; Z79.899 Other long term (current) drug therapy; Z87.891 Personal history of nicotine dependence; Z51.81 Encounter for therapeutic drug level monitoring
CPT/HCPCS: 36415; 70450; 71045; 80048; 80076; 81003; 83690; 84484; 85025; 85610; 85652; 86140; 93005; 99284; 99285

== ENCOUNTER → 2025-04-08 07:02 | Outpatient (BNV) | payer OTHER, SELFPAY | PROVIDERS: Emergency Provider Emergency Medicine; Visit Provider Internal Medicine | DX: I44.0 Atrioventricular block, first degree (principal); I49.1 Atrial premature depolarization | CPT/HCPCS: 93010 ==

== ENCOUNTER → 2025-04-08 07:03 | Outpatient (BNV) | payer OTHER, SELFPAY | PROVIDERS: Emergency Provider Emergency Medicine; Visit Provider Radiology Diagnostic Radiology | DX: H53.2 Diplopia (principal); R29.818 Other symptoms and signs involving the nervous system | CPT/HCPCS: 70450; 71045 ==

== ENCOUNTER 2025-06-27 13:54 | Emergency (ER) | payer OTHER, SELFPAY ==
--- OUTSIDE RECORDS SUMMARY | 2021-06-02 14:35 | XMS_ITS | Encounter Summary ---
Author Organization [facility] Address [address] [place] [phone] Phone Care Team Providers Care Manager Of Transportation Name Role Phone Tona Hook MD Primary Care Provider + Encounter Details Date Type Department Care Team (Late st Contact Info) Description 06/02/2021 2:35 PM EST Hospital Encounter [facility] [address] [place] [phone] Jessi Davis PA [address] [phone] [email or web address] Social History Tobacco Use Types Packs/Day Years [...] documented as of this encounter Care Teams Manager Of Transportation Relationship Specialty Start Date End Date Tona Hook MD [address] [place] [address] PCP - General 05/04/17 05/27/23 documented as of this encounter Additional Source Comments The information contained in this document represents components of the legal health record. It is not the complete legal health record.[facility]
--- OUTSIDE RECORDS SUMMARY | 2024-05-05 08:00 | XMS_ITS | Encounter Summary ---
Author Organization [facility] [place] [address] Care Team Providers Care Energy And Sustainability Manager Name Role Phone Grabiel Kasper MD Primary Care Pr ovider Encounter Details Date Type Department Care Team (Late st Contact Info) Description 05/05/2024 9:00 AM EDT Hospital Encounter TH HISTORIC ENCOUNTERS EASTERN CONVERSION ONLY Grabiel Kasper MD [address] [place] [address] Social History Tobacco Use Types Packs/Day Years Used Date Smoking Tobacco: Former Cigarettes 2 Q uit: 07/19/1989 Smokeless Tobacco: Former Alcohol Use Standard Drinks/Week Comments Not Currently 0 (1 standard drink = 0.6 oz pur e alcohol) Interpersonal Safety Answer Date Record ed Physical Abuse Unrecognized value 12/05/2024 Verbal Abuse Unrecognized value 12/05/2024 Sex and Gender Information Value Date Recorded Sex Assigned at Not on file Legal Sex Male 6:44 AM EST Gender Identity Not on file Sexual Orientation Not on file documented as of this encounter Plan of Treatment Upcoming Encounters Date Type Department Care Team (Late st Contact Info) Description 07/26/2025 1:00 PM EST Office Visit Adult Medicine [address] [phone] Grabiel Kasper MD [address] [place] [address] 08/07/2025 9:45 AM EST Office Visit Orthopedic Surgery - [place] [address] [phone] Dank Rose, DPM [address] [phone] documented as of this encounter Goals Goal Patient Goal Type Associated Problems Recent Progress Patient-Stated? Author No pain General Yes Lonnie Mackey, PT PT STG x 8 visits from [facility] 12/08/24 General No Lonnie Mackey, PT Note: [x] = completed goal [] = NOT completed goal [] Pt will report a 2/10 pain level decrease, [] Pt will increase hip IR strength to 4+/5, [] Pt will present with hip abd strength of 4+/5 or higher on % and 4-/5 on L [] Pt will improve hip add strength to 3+/5 or higher on R and 4/5 on L [] Pt will be able to perform sit to stand without UE support x 1 rep [] Pt will improve VMO recruitment from poor to fair PT STG Frome [facility] 12-08-24 General No Lonnie Mackey, PT Note: [x] = completed goal [] = NOT completed goal [] Pt will be able to perform sit<>supine without requiring UE support, [] Pt will be able to consistently negotiate stairs reciprocally , [] Pt will increased walking capacity to 1 hr to allow going to store documented as of this encounter Visit Diagnoses Not on filedocumented in this encounter Care Teams Energy And Sustainability Manager Relationship Specialty Start Date End Date Grabiel Kasper MD [address] [place], [place] PCP - General Internal Medicine 02/02/22 documented as of this encounter
[2025-06-27 13:59] VITALS: BP 141/64; PULSE 73; RESP 20; TEMP 36.3; O2SAT 95; BMI 31.0
--- NOTE | 2025-06-27 14:01 | ED_ITS ---
HPI - General Adult General Chief complaint: Dizziness Stated complaint: diff walking head pain Related Data Home Medications ?Medication ?Instructions ?Recorded ?Confirmed albuterol sulfate 90 mcg/actuation 2 puff inhalation Q 4H PRN wheezing 12/12/20 02/02/25 aerosol inhaler ascorbic acid (vitamin C) 500 mg 500 mg PO DAILY 05/2202/02/25 capsule atorvastatin 20 mg tablet 20 mg PO DAILY 11/25/2101/16 tamsulosin 0.4 mg capsule 0.4 mg PO BID 11/25/2102/02 carboxymethylcellulose sodium 0.5 1 drp ophthalmic (ey e) TID PRN Dry 03/12/22 02/02/25 % eye drops Eye(S) citalopram 40 mg tablet 40 mg PO DAILY 04/19/2301/16 levetiracetam 1,000 mg tablet 750 mg PO BID 04/19/23 0 02/02/25 nitroglycerin 0.3 mg sublingual 0.3 mg sublingual Q5M 12/02/23 02/02/25 tablet topiramate 25 mg tablet 25 mg PO DAILY 01/07/2501/16 Previous Rx's ?Medication ?Instructions ?Recorded diltiazem HCl 180 mg 180 mg PO DAILY #90 caps 02/09 capsule,extended release 24 hr isosorbide mononitrate 30 mg 30 mg PO DAILY #90 tabs 0 02/02/25 tablet,extended release 24 hr rivaroxaban 20 mg tablet (Xarelto) 20 mg PO QPM #90 ta bs 04/26/25 Allergies Allergy/AdvReac Type Severity Reaction Status Date / Time penicillin V Allergy Severe Hives Verified 06/27/25 14:01 piroxicam (PIROXICAM) Allergy Intermediate HIVES/SOB Verified 06/27/25 14:01 rofecoxib (From VIOXX) Allergy Intermediate HIVES/SOB Verified 06/27/25 14:01 Penicillins (PENICILLINS) Allergy Unknown UNKNOWN Verified 06/27/25 14:01 phenacetin (PHENACETIN) Allergy Unknown UNK Verified 06/27/25 14:01 From VICODIN Allergy Intermediate HIVES/SOB Uncoded 04/08/25 06:51 [facility] Past Medical History Medical History Paroxysmal atrial fibrillation HTN (hypertension) CAD (coronary artery disease) Class 1 obesity Chronic anticoagulation CAD (coronary artery disease) Seizure disorder Surgical History History of left knee surgery History of right hip replacement History of ear surgery S/P skin biopsy Social History Social History Household Members: None Housing: House Do you presently have visiting nurse or other home services: No Alcohol intake: current Alcohol intake frequency: holidays/special occasions only Alcohol type: beer Comment: pt refusing bed alarm Patient Tobacco Use Status: Former Tobacco user Years Smoked: 30 +/- Advance Directives: No Advance Directives Information Provided: No Do you have a plan to hurt others: No Plan service: No Physical Exam ED Vital Signs: Vital Signs - 24 hr 06/27/25 13:59 Temperature 97.3 F Pulse Rate 73 Respiratory Rate 20 Blood Pressure 141/64 H Pulse Oximetry 95 Oxygen Delivery Method Room Air BMI result Body Mass Index 31.0 Course Course Course Narrative: This is an RME: Additional HPI, ROS, PE not included below will be deferred to primary provider. RME assessment and note performed by: Court Riley PA-C This is a 84-year-old male, with a past medical history of paroxysmal atrial fibrillation, hypertension, CAD, seizure disorder, who presents emergency department with concerns of unsteadiness and dizziness which has been ongoing for multiple months. Patient followed up with his primary care physician was told to come back to the emergency room for re-evaluation. Patient states that he feels very unstable with ambulation. he is neurologically intact, no focal deficits on examination, however did not have patient ambulate while in triage. Patient in March was seen for periods of double vision. He had a CT head revealing no acute findings. Plan: labs, EKG Medical Decision Making Lab Data 06/27/25 14:26 06/27/25 14:26 Labs: Lab Results 06/27/25 Range/Units 14:26 WBC 7.7 (4.8-10.8) X10*3/uL RBC 4.48 L (4.60-5.80) X10*6/uL Hgb 14.4 (14.0-18.0) g/dl Hct 42.4 (42.0-52.0) % MCV 94.6 (80.0-98.0) fL MCH 32.1 (27.0-33.0) pg MCHC 34.0 (31.0-36.0) g/dl RDW 14.5 (11.0-16.0) % Plt Count 182 (160-400) X10*3/uL MPV 9.6 (9.4-12.4) fL Immature Gran % (Auto) 0.3 (0.0-0.4) % Neut % (Auto) 76.9 H (45-73) % Lymph % (Auto) 14.2 L (20-40) % Starke % (Auto) 6.2 (2-11) % Eos % (Auto) 1.9 (0-4) % Baso % (Auto) 0.5 (0-2) % Lymph # (Auto) 1.1 L (1.2-4.9) X10*3/uL Starke # (Auto) 0.5 (0.1-1.2) X10*3/uL Eos # (Auto) 0.2 (0.0-0.4) X10*3/uL Baso # (Auto) 0.0 (0.0-0.2) X10*3/uL Abs Immat Gran (auto) 0.02 (0.00-0.03) X10*3/uL Absolute Neuts (auto) 5.9 (2.0-8.3) x10*3/uL Absolute Nucleated RBC 0.000 (0.0-0.012) X10*3/uL Nucleated RBC % (auto) 0.0 (0.0-0.2) /100WBC Sodium 143 (135-145) mmol/L Potassium 4.0 (3.3-5.1) mmol/L Chloride 107 (96-108) mmol/L Carbon Dioxide 30 H (22-29) mmol/L Anion Gap 10 L (12-20) BUN 17 H (9-16) mg/dL Creatinine 0.95 (0.5-1.4) mg/dL Estim Creat Clear Calc 65.9 Estimated GFR > 60 Random Glucose 136 H (60-115) mg/dL Calcium 9.2 (8.4-10.2) mg/dL Magnesium 2.3 (1.6-2.6) mg/dL Total Bilirubin 0.4 (0.0-1.0) mg/dL Direct Bilirubin 0.2 (0.0-0.5) mg/dL AST 19 (5-37) U/L ALT 15 (0-40) U/L Alkaline Phosphatase 50 (39-117) U/L Troponin I High Sens 3.3 (<3.5-35.0) ng/L Total Protein 6.7 (6.5-8.0) g/dL Albumin 4.3 (3.5-5.0) g/dL Discharge Plan Discharge Clinical Impression: Diagnosis unknown Patient Disposition: Left W/O Completing Treatment Prescriptions: No Action diltiazem HCl 180 mg capsule,extended release 24hr 180 mg PO DAILY Qty: 90 3RF Xarelto 20 mg tablet 20 mg PO QPM Qty: 90 3RF topiramate 25 mg tablet 25 mg PO DAILY albuterol sulfate 90 mcg/actuation HFA aerosol inhaler 2 puff inhalation Q4H PRN (Reason: wheezing) ascorbic acid (vitamin C) 500 mg capsule 500 mg PO DAILY tamsulosin 0.4 mg capsule 0.4 mg PO BID atorvastatin 20 mg tablet 20 mg PO DAILY carboxymethylcellulose sodium 0.5 % drops 1 drp ophthalmic (eye) TID PRN (Reason: Dry Eye(S)) levetiracetam 1,000 mg tablet 750 mg PO BID nitroglycerin 0.3 mg tablet, sublingual 0.3 mg sublingual Q5M isosorbide mononitrate 30 mg tablet extended release 24 hr 30 mg PO DAILY Qty: 90 0RF citalopram 40 mg tablet 40 mg PO DAILY Discharge Date/Time: 06/27/25 20:40
--- NOTE | 2025-06-27 14:11 | ECG_ITS ---
Test Reason : dizziness Blood Pressure : */* mmHG Vent. Rate : 80 BPM Atrial Rate : * BPM P-R Int : * ms QRS Dur : 80 ms QT Int : 370 ms P-R-T Axes : * -4 52 degrees QTcB Int : 426 ms Normal sinus rhythm with premature ventricular or aberrantly conducted complexes Abnormal ECG When compared with ECG of 08-Apr-2025 07:28, Premature ventricular complexes are now Present Referred By: Court Riley Electronically Signed By: IRENE THOMPSON MD
[2025-06-27 14:33] LABS: MANUAL DIFF FLAG NO
[2025-06-27 14:34] LABS: Hematocrit 42.4 % (42.0-52.0); Hemoglobin 14.4 g/dl (14.0-18.0); Imm Gran Abs Auto 0.02 X10*3/uL (0.00-0.03); Imm Gran Pct Auto 0.3 % (0.0-0.4); Lymphocytes Absolute Auto 1.1 X10*3/uL (1.2-4.9); Mean Corpuscular HGB Conc 34.0 g/dl (31.0-36.0); Mean Corpuscular Hemoglobin 32.1 pg (27.0-33.0); Mean Corpuscular Volume 94.6 fL (80.0-98.0); NRBC Abs Auto 0.000 X10*3/uL (0.0-0.012); NRBC Pct Auto 0.0 /100WBC (0.0-0.2); Platelet Count 182 X10*3/uL (160-400); Red Blood Count 4.48 X10*6/uL (4.60-5.80); White Blood Count 7.7 X10*3/uL (4.8-10.8)
[2025-06-27 14:51] LABS: Alanine Aminotransferase 15 U/L (0-40); Albumin Level 4.3 g/dL (3.5-5.0); Alkaline Phosphatase 50 U/L (39-117); Anion Gap 10 (12-20); Aspartate Amino Transferase 19 U/L (5-37); Blood Urea Nitrogen 17 mg/dL (9-16); Calcium 9.2 mg/dL (8.4-10.2); Carbon Dioxide 30 mmol/L (22-29); Chloride 107 mmol/L (96-108); Creatinine Clr Calc Pharmacy 65.9; Estimated Glomerular Filt Rate > 60; Magnesium 2.3 mg/dL (1.6-2.6); Potassium 4.0 mmol/L (3.3-5.1); Sodium 143 mmol/L (135-145); Total Protein 6.7 g/dL (6.5-8.0)
[2025-06-27 14:59] LABS: Troponin-I High Sensitivity 3.3 ng/L (<3.5-35.0)
--- OUTSIDE RECORDS SUMMARY | 2025-06-28 01:00 | XMS_ITS ---
Author Organization [facility] Address [address] [place] [address] Care Team Providers Care Pest Technician Name Role Phone Grabiel Kasper MD Primary [...] of the left ear Assessment & Plan (06/11/2025 2:52 PM EST): Advised to rescheduled missed [place] [facility] appt for routine surveillance Assessment & Plan (02/05/2025 9:45 AM EDT): Continue dermatology follow-up for routine exams. Has an appt for 03/21/25 Left carpal tunnel syndrome 06/14/2023 Lumbar radiculopathy 06/14/2023 Chronic venous insufficiency 11/18/2022 Assessment & Plan (06/11/2025 2:52 PM EST): Continue with lasix as needed Orders: furosemide (LASIX) 20 mg tablet; Take 1 tablet (20 mg total) by mouth 1 (one) time each day if needed (edema). Assessment & Plan (10/06/2024 11:49 AM EDT): Continue Lasix as needed Orders: furosemide (LASIX) 20 mg tablet; Take 1 tablet (20 mg total) by mouth 1 (one) time each day if needed (edema). CAD (coronary artery disease) 10/13/2022 Overview (04/13/2024): Diffuse 3 vessel disease - Dr. 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 I do think that the pain is most likely muscular due to the fact that is reproducible when I touch the left side of his chest. Advised to come back to see me in 1 year or before if needed. Assessment & Plan (06/11/2025 2:52 PM EST): Continue anoro and albuterol prn. Assessment & Plan (02/05/2025 9:45 AM EDT): [...] of the heart. Cerebrovascular accident (CVA) 09/17/2021 Assessment & Plan (06/11/2025 2:52 PM EST): Continue atorvastatin 20mg Benign prostatic hyperplasia with urinary freque ncy 09/17/2021 Assessment & Plan (06/11/2025 2:52 PM EST): Continue tamsulosin 0.4mg daily Assessment & Plan (02/05/2025 9:45 AM EDT): [...] hip 09/17/2020 Depression 09/11/2020 Assessment & Plan (06/11/2025 2:52 PM EST): Well controlled Continue Celexa 20 mg daily Assessment & Plan (02/05/2025 9:45 AM EDT): [...] internal carotid artery. Patient declined surgical intervention. Assessment & Plan (06/11/2025 2:52 PM EST): US done in December 2021- No hemodynamically significant internal carotid artery stenosis. 2. Bilateral antegrade vertebral artery flow. Continue atorvastatin 20mg Neural foraminal stenosis of cervical spine 11/18 Spinal stenosis, lumbar 02/26/2017 Atrial fibrillation 11/20/2015 Assessment & Plan (06/11/2025 2:52 PM EST): Continue Cardizem 180 mg daily and Xarelto 20 mg daily. He follows closely with cardiology-(Dr. Blake) ; seen on 02/02/25; has appt with Dr. Blake Jun 25. Assessment & Plan (02/05/2025 9:45 AM EDT): Continue Cardizem 180 mg daily and Xarelto 20 mg daily. Continue cardiology follow-up with Dr. Blake Orders: CBC and differential; Future Assessment & Plan (10/06/2024 11:49 AM EDT): Continue cardiology follow-up. Continue Cardizem 180 mg daily and Xarelto 20 mg daily Orders: CBC and differential; Future Seizure disorder 11/20/2015 Assessment & Plan (06/11/2025 2:52 PM EST): Continue topamax 25mg and neurology follow up Assessment & Plan (02/05/2025 9:45 AM EDT): Continue neurology follow up. Continue topamax 25ng daily Assessment & Plan (10/06/2024 11:49 AM EDT): Continue neurology follow-up. 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 Continue Cardizem Assessment & Plan (10/06/2024 11:49 AM EDT): Blood pressure is stable. Continue Cardizem 180 mg daily Orders: Comprehensive metabolic panel; Future Transient cerebral ischemia 11/16/2005 Overview (04/13/2024): Carotid US Mri normal 1997;p <50% 2011 Obesity (BMI 30.0-34.9) 11/16/2005 Hepatitis C, chronic 11/16/2005 Overview (04/13/2024): Genotype 1A. Hearing loss 11/16/2005 Current Treatment and Therapy Plans No current plan information found. Past Treatment and Therapy Plans No past plan information found. Lifetime Dose Tracking * Chemical Lifetime Dose Automatic Entry Manual Entr y CTDIvol 16.48 mGy 16.48 mGy 0 mGy Resolved Problems Problem Noted Date Diagnosed Date Resolved Date Diverticulitis of colon without hemorrhage 11/16/2005 10/06/2024
--- OUTSIDE RECORDS SUMMARY | 2025-06-28 01:01 | XMS_ITS | Encounter Summary ---
Author Organization [facility] Address [address] [place], [place] [id number] Phone Care Team Providers Care Concierge Manager Name Role Phone Tona Hook MD Primary Care Provider + Grabiel Kasper MD Primary Care Pr ovider Reason for Referral * MRI/CAT Scan - Closed Specialty Diagnoses / Procedures Referred By Shaw pfeiffer Referred To Contact Radiology Diagnoses Numbness of face Nausea Left sided numbness Procedures MRI Brain CHG MRI BRAIN COMBO CHG MRI BRAIN CONTRAST CHG MRI BRAIN Tan Son MD Phone: tel: fax: [email or web address] Referral ID Status Reason Start Date Expiration Date Visits Re quested Visits Authorized [id number] Closed 09/08/2021 10/05/2021 1 1 Encounter Details Date Type Department Care Team (Latest Contact Info) Description 08/14/2021 Transcribe Orders Virtual Department [address] [place] [id number] Tan Son MD [address] [place] [address], [address] [place] [address] [email or web address] Numbness of face (Primary Dx); Nausea; Left sided numbness Social History Tobacco Use Types Packs/Day Years Used Date Smoking Tobacco: Former Smokeless Tobacco: Never Alcohol Use Standard Drinks/Week Comments Yes 2 (1 standard drink = 0.6 oz pur e alcohol) Occasional Sex and Gender Information Value Date Recorded Sex Assigned at Not on file Legal Sex Male 10:12 PM EDT Gender Identity Not on file Sexual Orientation Not on file documented as of this encounter Plan of Treatment Not on file documented as of this encounter Results * MRI BRAIN WITH AND WITHOUT CONTRAST (09/08/2021 10:49 AM EST) Anatomical Region Laterality Modality Head Magnetic Resonan ce 09/08/2021 12:5 8 PM EST Impressions 09/08/2021 1:55 PM EST 1.Small acute/subacute deep left frontal lobe white matter infarction. Findings called to Dr. Son at the time of dictation. 2.Mild white matter disease may be due to chronic microangiopathy. Narrative 09/08/2021 1:55 PM EST COMPARISON: CT head 12/21/2014. TECHNIQUE: Exam performed on a 1.5 Leslye high-field MRI scanner. Axial T1, GRE, T2, 3 plane FLAIR and diffusion-weighted with ADC map, sagittal T1, followed by post-gadolinium axial, sagittal and coronal T1 sequences were obtained. MRI BRAIN FINDINGS: Brain: No cerebellar tonsil herniation. Pituitary gland is not enlarged. Small focus of restricted diffusion within the left frontal lobe deep white matter/zambrano radiata. No intraparenchymal susceptibility artifact to indicate hemorrhage. Stable moderate generalized cortical atrophy. There are a few subcentimeter T2 hyperintense white matter lesions throughout the subcortical and deep white matter. No enhancement. No mass, mass effect, midline shift or extra-axial fluid collections. Ventricles: No hydrocephalus. Stable mild enlargement due to atrophy. Vasculature: Normal vascular flow-voids. Orbits: Bilateral lens implants. Mastoids/Middle Ear/Paranasal Sinuses: Chronic small left mastoid effusion. Soft Tissues: Unremarkable. Bones: Moderate C4-5 disc disease. Procedure Note Cory Patterson MD - 09/08/2021 COMPARISON: CT head 12/21/2014. TECHNIQUE: Exam performed on a 1.5 Leslye high-field MRI scanner. AxialT1, GRE, T2, 3 plane FLAIR and diffusion-weighted with ADC map, sagittalT1, followed by post-gadolinium axial, sagittal and coronal T1 sequenceswere obtained. MRI BRAIN FINDINGS: Brain: No cerebellar tonsil herniation. Pituitary gland is not enlarged.Small focus of restricted diffusion within the left frontal lobe deepwhite matter/zambrano radiata. No intraparenchymal susceptibility artifactto indicate hemorrhage. Stable moderate generalized cortical atrophy.There are a few subcentimeter T2 hyperintense white matter lesionsthroughout the subcortical and deep white matter. No enhancement. No mass,mass effect, midline shift or extra-axial fluid collections. Ventricles: No hydrocephalus. Stable mild enlargement due to atrophy. Vasculature: Normal vascular flow-voids. Orbits: Bilateral lens implants. Mastoids/Middle Ear/Paranasal Sinuses: Chronic small left mastoideffusion. Soft Tissues: Unremarkable. Bones: Moderate C4-5 disc disease. IMPRESSION: 1.Small acute/subacute deep left frontal lobe white matter infarction.Findings called to Dr. Son at the time of dictation. 2.Mild white matter disease may be due to chronic microangiopathy. Tan Son MD IMG MR HEAD/NECK Final Resul t documented in this encounter Visit Diagnoses Diagnosis Numbness of face- Primary Disturbance of skin sensation Nausea Nausea alone Left sided numbness Numbness of face Disturbance of skin sensation Nausea Nausea alone Left sided numbness documented in this encounter Care Teams Concierge Manager Relationship Specialty Start Date End Date Tona Hook MD [address] [place] [id number] PCP - General 05/04/17 05/27/23 Grabiel Kasper MD [address] [place] [id number] PCP - General Family Medicine 05/28/23 documented as of this encounter Additional Source Comments The information contained in this document represents components of the legal health record. It is not the complete legal health record.[facility]
--- OUTSIDE RECORDS SUMMARY | 2025-06-28 01:01 | XMS_ITS | Encounter Summary ---
Author Organization [facility] Address [address] [place], [place] [id number] Phone Care Team Providers Care Bull Bucker Name Role Phone Tona Hook MD Primary Care Provider + Grabiel Kasper MD Primary Care Pr ovider Encounter Details Date Type Department Care Team (Late st Contact Info) Description 12/07/2017 Ancillary Orders Virtual Department [address] [place] [address] Miguelangel Sharma MD [address] [place] [id number] Aching pain Social History Tobacco Use Types Packs/Day Years Used Date Smoking Tobacco: Never Assessed Sex and Gender Information Value Date Recorded Sex Assigned at Not on file Legal Sex Male 10:12 PM EDT Gender Identity Not on file Sexual Orientation Not on file documented as of this encounter Plan of Treatment Not on file documented as of this encounter Results * MRI CERVICAL SPINE (BONE) WITHOUT CONTRAST (12/15/2017 6:14 PM EDT) Anatomical Region Laterality Modality C-spine Magnetic Resonan ce 12/15/2017 6:59 PM EDT Impressions 12/15/2017 9:56 PM EDT Multilevel degenerative changes. Central disc protrusion at the C3-4 flattens the cord, no abnormal cord signal. Severe neural foraminal narrowing from C4-5 through C6-7. POS - [id number] Edited by: Jenelle Unger on 12/15/2017 7:23 PM Narrative 12/15/2017 9:56 PM EDT HISTORY: Left-sided head pain that radiates to posterior ear and down to the left side of neck and left shoulder. Question narrowing of nerve canals. No trauma. COMPARISON: None CORRELATION: None. TECHNIQUE: Exam performed on a 1.5 Leslye high-field MRI scanner. Sagittal T1, T2 and STIR, axial T2* gradient echo and 3-D bright fluid sequences were obtained. FINDINGS: No abnormal cord signal detected. No significant narrowing at the craniocervical junction. Vertebral body heights are maintained. Subcentimeter fat-containing lesion within C6 likely represents a hemangioma. C2-3: Mild disc bulging. Bilateral uncovertebral spurring. Moderate to severe right and mild left facet arthropathy. Right neural foramen is mildly narrowed. No significant left neural foraminal narrowing or spinal canal stenosis. C3-4: Medium-sized central disc protrusion with annular tearing which has mass effect on and flattens the central ventral cord. Bilateral uncovertebral spurring and severe right and mild left facet arthropathy. Right neural foramen appears mild to moderately narrowed. No significant left neural foraminal narrowing. Spinal canal is moderately narrowed. C4-5: Severe loss of disc height with a small generalized disc osteophyte complex. Uncovertebral osteophytes on the right which appear partially fused. Smaller uncovertebral osteophytes on the left. Mild bilateral facet arthropathy. Right neural foramen is severely narrowed. Left neural foramen appears moderately narrowed. Spinal canal is mild to moderately narrowed. C5-6: Severe loss of disc height with generalized disc bulging. Bilateral uncovertebral osteophytes and mild facet arthropathy. Neural foramina are severely narrowed. Spinal canal is mild to moderately narrowed. C6-7: Severe loss of disc height with generalized disc bulging, bilateral uncovertebral osteophytes and mild bilateral facet arthropathy. Neural foramina are severely narrowed. Mild to moderate narrowing of the spinal canal. C7-T1: Minimal anterolisthesis of C7 secondary to facet arthropathy which is severe on the left and moderate on the right. Minimal disc bulging and uncovertebral spurring. Right neural foramen is probably moderately narrowed. Left is mildly narrowed. No significant spinal canal stenosis. Nonspecific left mastoid effusion. Procedure Note Brandon Leggett MD - 12/15/2017 HISTORY: Left-sided head pain that radiates to posterior ear and down tothe left side of neck and left shoulder. Question narrowing of nervecanals. No trauma. COMPARISON: None CORRELATION: None. TECHNIQUE: Exam performed on a 1.5 Leslye high-field MRI scanner. SagittalT1, T2 and STIR, axial T2* gradient echo and 3-D bright fluid sequenceswere obtained. FINDINGS: No abnormal cord signal detected. No significant narrowing at thecraniocervical junction. Vertebral body heights are maintained.Subcentimeter fat-containing lesion within C6 likely represents ahemangioma. C2-3: Mild disc bulging. Bilateral uncovertebral spurring. Moderate tosevere right and mild left facet arthropathy. Right neural foramen ismildly narrowed. No significant left neural foraminal narrowing or spinalcanal stenosis. C3-4: Medium-sized central disc protrusion with annular tearing which hasmass effect on and flattens the central ventral cord. Bilateraluncovertebral spurring and severe right and mild left facet arthropathy.Right neural foramen appears mild to moderately narrowed. No significantleft neural foraminal narrowing. Spinal canal is moderately narrowed. C4-5: Severe loss of disc height with a small generalized disc osteophytecomplex. Uncovertebral osteophytes on the right which appear partiallyfused. Smaller uncovertebral osteophytes on the left. Mild bilateralfacet arthropathy. Right neural foramen is severely narrowed. Leftneural foramen appears moderately narrowed. Spinal canal is mild tomoderately narrowed. C5-6: Severe loss of disc height with generalized disc bulging. Bilateraluncovertebral osteophytes and mild facet arthropathy. Neural foramina areseverely narrowed. Spinal canal is mild to moderately narrowed. C6-7: Severe loss of disc height with generalized disc bulging, bilateraluncovertebral osteophytes and mild bilateral facet arthropathy. Neuralforamina are severely narrowed. Mild to moderate narrowing of the spinalcanal. C7-T1: Minimal anterolisthesis of C7 secondary to facet arthropathy whichis severe on the left and moderate on the right. Minimal disc bulging anduncovertebral spurring. Right neural foramen is probably moderatelynarrowed. Left is mildly narrowed. No significant spinal canalstenosis. Nonspecific left mastoid effusion. IMPRESSION: Multilevel degenerative changes. Central disc protrusion at the C3-4flattens the cord, no abnormal cord signal. Severe neural foraminalnarrowing from C4-5 through C6-7. POS - [id number] Edited by: Jenelle Unger on 12/15/2017 7:23 PM us Miguelangel Sharma MD IMG MR XSPECIALTY Final Resul t documented in this encounter Visit Diagnoses Diagnosis Aching pain Generalized pain Aching pain Generalized pain documented in this encounter Additional Health Concerns Infection Onset Date Last Indicated Resolved Time CoV-Risk 06/02/2021 06/02/2021 06/12/2021 1:24 AM EST CoV-Risk 06/16/2021 06/16/2021 06/26/2021 1:24 AM EST documented as of this encounter Care Teams Bull Bucker Relationship Specialty Start Date End Date Tona Hook MD [address] [place] [address] PCP - General 05/04/17 05/27/23 Grabiel Kasper MD [address] [place] [id number] PCP - General Family Medicine 05/28/23 documented as of this encounter Additional Source Comments The information contained in this document represents components of the legal health record. It is not the complete legal health record.[facility]
--- OUTSIDE RECORDS SUMMARY | 2025-06-28 01:01 | XMS_ITS | Encounter Summary ---
Author Organization [facility] [place] [address] Care Team Providers Care Electroplater Name Role Phone Grabiel Kasper MD Primary Care Pr ovider Reason for Visit * Reason Onset Date Comments Dizziness 06/27/2025 Encounter Details Date Type Department Care Team (Late st Contact Info) Description 06/27/2025 Nurse Triage Adult Medicine [address] [phone] Grabiel Kasper MD [address] [place] [address] Social History Tobacco Use Types Packs/Day Years [...] Progress Notes * Johanne Cueva RN - 06/27/2025 11:28 AM EST He was instructed to go to the ER for further evaluation and treatment. He is in agreement with this plan and states he will go to [facility] ER. Reason for Disposition [1] Numbness (i.e., loss of sensation) of the face, arm or leg on one side of the body AND [2] sudden onset AND [3] present now Answer Assessment - Initial Assessment Questions 1. DESCRIPTION: Describe your dizziness. He describes it as room spinning and light headedness 2. VERTIGO: Do you feel like either you or the room is spinning or tilting? Yes 3. LIGHTHEADED: Do you feel lightheaded? (e.g., somewhat faint, woozy, weak upon standing) Yes 4. SEVERITY: How bad is it? Can you walk? He rates the vertigo as 9/10 when it occurs. None at this time. He is able to walk with a walker 5. ONSET: When did the dizziness begin? 1-2 months 6. AGGRAVATING FACTORS: Does anything make it worse? (e.g., standing, change in head position) Standing and bending over 7. CAUSE: What do you think is causing the dizziness? Unknown 8. RECURRENT SYMPTOM: Have you had dizziness before? If Yes, ask: When was the last time? Whathappened that time? No 9. OTHER SYMPTOMS: Do you have any other symptoms? (e.g., earache, headache, numbness, tinnitus, vomiting, weakness) He reports intermittent ringing in his ears 10. : Is there any chance you are ? When was your last menstrual period? No. Pt is a male. Protocols used: Dizziness - Eyteaed-H-WU * Fozia Hernández - 06/27/2025 9:33 AM EST Patient call requires triage: Symptoms patient is presenting: patient states he had a ct scan of his head done at [facility] but never got any results back - he is still having dizziness, unsteady gait and thinks he should see someone as he feels there is something wrong How long has patient had these symptoms?: worsening over past few days For ALL patients calling to schedule any appointment (routine, sick visit, follow up, consult, etc.) in the outpatient setting please ask the following questions: Do you have fever of higher than 101, sore throat with difficulty swallowing or severe shortness ofbreath? no If YES to any of these above symptoms, send a message to triage and do not book. Red dot. If no, an audio or video visit should be booked. Have you had close contact with someone with Coronavirus in the last 14 days? no Have you traveled abroad? no Have you traveled recently to another state outside of [place], [place], [place], [place], [place], [place]? no o If yes, did you quarantine for 14 days or have a negative covid test? no If yes to any of the above, patient is not to be scheduled in office until after 14 day quarantine or negative covid test. If pain or injury related was it due to an accident at work or from a motor vehicle accident? If yes, date of accident/Injury: No If yes, gather 3rd republican insurance information [employer] Party Information: not applicable PCP: Grabiel Kasper MD Payor: [id number] / Plan: [facility] / Product Type: *No Product type* / documented in this encounter Plan of Treatment Upcoming Encounters Date Type Department Care Team (Late st Contact Info) Description 07/26/2025 1:00 PM EST Office Visit Adult Medicine [address] [phone] Grabiel Kasper MD [address] [place] [address] 08/07/2025 9:45 AM EST Office Visit Orthopedic Surgery - [place] [address] [phone] Dank Rose DPM [address] [phone] documented as of this encounter Goals Goal Patient Goal Type Associated Problems Recent Progress Patient-Stated? Author No pain General Yes Lonnie Mackey, PT PT STG x 8 visits from [facility] 12/08/24 General No Lonnie Mackey, PT [...] from poor to fair PT STG Frome [facility] 12-08-24 General No Lonnie Mackey, PT [...] filedocumented in this encounter Additional Health Concerns Assessment Noted Time PHQ-9 Depression Total Score: 0 06/11/20 25 2:50 PM EST documented as of this encounter Care Teams Electroplater Relationship Specialty Start Date End Date Grabiel Kasper MD [address] [place], [place] PCP - General Internal Medicine 02/02/22 documented as of this encounter
--- OUTSIDE RECORDS SUMMARY | 2025-06-28 01:01 | XMS_ITS | Clinical Summary ---
Author Organization [facility] Address [address] [place], [place] [id number] Phone Care Team Providers Care Web Content Writer Name Role Phone Grabiel Kasper MD Primary Care Pr ovider Allergies Active Allergy Reactions Criticality Noted Date Comments Codeine 10/05/2016 Hydrocodone Anxiety Low 10/05/2016 Hydrocodone-Acetaminophen Anxiety Low 10/05/2016 Piroxicam 10/05/2016 Medications fluticasone propionate (FLOVENT HFA) 110 mcg/actuation inhalerIndicatio ns:uses PRN Indication s: uses PRN Active dilTIAZem (CARDIZEM CD) 180 MG 24 hr capsule 04/18/2021 Active XARELTO 20 mg Tab 03/14/2021 Active citalopram (CELEXA) 40 MG tablet 09/17/2021 Active levETIRAcetam (KEPPRA) 500 MG tablet 10/15/2021 Active tamsulosin (FLOMAX) 0.4 mg Cap 10/15/2021 Active tobramycin-dexam ethasone (TOBRADEX) ophthalmic suspension 08/18/2021 Active Active Problems Problem Noted Date Diagnosed Date Benign prostatic hyperplasia without urinary obs truction 10/22/2021 Atrial fibrillation 06/13/2021 Overview (06/13/2021): Oct 05, 2016 Entered By: MALGORZATA CREWS Comment: [place]. cardiology Dr. Giron [facility]. h/o cardioversion Benign essential hypertension 06/13/2021 Cerebral atrophy 06/13/2021 Overview (06/13/2021): Oct 05, 2016 Entered By: MALGORZATA CREWS Comment: no h/o head injury H/O: osteoarthritis 06/13/2021 Overview (06/13/2021): Oct 05, 2016 Entered By: MALGORZATA CREWS Comment: L knee chronic limitation in ROMOct 05, 2016 Entered By: MALGORZATA CREWS Comment: h/o R hip replacementOct 05, 2016 Entered By: MALGORZATA CREWS Comment: h/o L rotator cuff repairOct 05, 2016 Entered By: MALGORZATA CREWS Comment: h/o r ankle surgery related to trauma/fall Hepatitis C 06/13/2021 Overview (06/13/2021): Oct 05, 2016 Entered By: MALGORZATA CREWS Comment: referred to Hep C clinic 10/05/16Jan 07, 2018 Entered By: POORNIMA NAVARRO Comment: Pt achieved SVR after 12 weeks of Harvoni in 2018 Lumbosacral radiculopathy 06/13/2021 Multiple renal cysts 06/13/2021 Seizure disorder 06/13/2021 Overview (06/13/2021): Oct 05, 2016 Entered By: MALGORZATA CREWS Comment: 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 lamotrigine. Neurology Dr. 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 Immunizations Immunization Administration Dates Next Due COVID-19 (Pre-05/10) Moderna Vaccine, mRNA, PF 0 09/25/2020,08/28/2020 Social History Tobacco Use Types Packs/Day Years [...] on file Sexual Orientation Not on file Last Filed Vital Signs Vital Sign Reading Time Taken Comments Blood Pressure 146/78 10/22/2021 12:23 PM EDT Pulse 65 10/22/2021 12:23 PM EDT Temperature 36.8 C (98.2 F) 10/22/2021 12:23 PM EDT Respiratory Rate 16 10/22/2021 12:23 PM EDT Oxygen Saturation 95% 10/22/2021 12:23 PM EDT Inhaled Oxygen Concentration - - Weight 101.2 kg (223 lb) 10/22/2021 12:23 PM EDT Height 175.3 cm (5' 9 ) 09/02/2021 1:17 PM EST Body Mass Index 32.93 09/02/2021 1:17 PM EST Plan of Treatment Health Maintenance Due Date Last Done Comments BLOOD PRESSURE 1940 CREATININE LEVEL 1940 DEPRESSION SCREENING 1952 RSV VACCINE (1 - 1-dose 75+ series) 10/11/2015 INFLUENZA VACCINE (#1) 2025 , 04/18/2020, 04/15/2020, Additional history exists COVID-19 VACCINE (2024- season) 2025 10/15/2021, 05/12/2021, 09/25/2020, Additional history exists Adult Td,Tdap Booster 10/17/2025 10/18/2015 , 09/21/2012, 05/27/2010, Additional history exists HEPATITIS A VACCINES Completed 05/19/2017, 11/09/2016, 10/08/2016 PNEUMOCOCCAL VACCINES (50+ years) Completed 09/18/2019, 07/19/2016, 11/20/2015, Additional history exists ZOSTER VACCINES Completed 06/07/2020, 03/20, 12/22/2017, Additional history exists HIB VACCINES Aged Out No longer eligi ble based on patient's age to complete this topic MENINGOCOCCAL VACCINES (ACWY) Aged Out No longer eligible based on patient's age to complete this topic MENINGOCOCCAL VACCINES (B) Aged Out N o longer eligible based on patient's age to complete this topic Medical Devices Not on file [place] [address] [place] [address] [place] [place] [address] [place] [address] [place] [address] [place] [place] [address] [place] [address] HE[employer] PLAN Care Teams Web Content Writer Relationship Specialty Start Date End Date Grabiel Kasper MD PCP - General Family Medicine 05/28/23 Additional Source Comments The information contained in this document represents components of the legal health record. It is not the complete legal health record.[facility]
--- OUTSIDE RECORDS SUMMARY | 2025-06-28 01:01 | XMS_ITS | Encounter Summary ---
Author Organization [facility] Address [address] [place], [place] [phone] Phone Care Team Providers Care Nailer Operator Name Role Phone Tona Hook MD Primary Care Provider + Grabiel Kasper MD Primary Care Pr ovider Reason for Referral * Outpatient Procedure - Closed Specialty Diagnoses / Procedures Referred By Contac t Referred To Contact Radiology Diagnoses Cerebrovascular accident (CVA), unspecified mechanism Procedures US Carotid Duplex Complete (Bilateral) Tan Son MD Phone: tel: fax: mailto:[email or web address] Referral ID Status Reason Start Date Expiration Date Visits Re quested Visits Authorized [id number] Closed 12/17/2021 12/17/2022 1 1 Encounter Details Date Type Department Care Team (Latest Contact Info) Description 12/17/2021 Transcribe Orders Virtual Department [address] [place] [id number] Tan Son MD [address] [place] [address], [address] [place] [address] [email or web address] Cerebrovascular accident (CVA), unspecified mechanism (Primary Dx) Social History Tobacco Use Types Packs/Day Years [...] documented as of this encounter Results * US Carotid Duplex Complete (Bilateral) (12/26/2021 12:02 PM EDT) Anatomical Region Laterality Modality Heart, Thoracic Vasculature, Neck Ultrasound 12/26/2021 4:29 PM EDT Impressions 12/26/2021 5:02 PM EDT 1. No hemodynamically significant internal carotid artery stenosis. 2. Bilateral antegrade vertebral artery flow. Narrative 12/26/2021 5:02 PM EDT COMPARISON: None. CAROTID ULTRASOUND FINDINGS: RIGHT: Peak external carotid artery: 131 cm/sec Peak vertebral: 52 cm/sec and antegrade Carotid artery morphology: Mild calcified plaque in the bifurcation. Peak common carotid artery: 103/13 cm/sec Peak internal carotid artery: 124/20 cm/sec Normal peak systolic ratio. LEFT: Peak external carotid artery: 82 cm/sec Peak vertebral: 46 cm/sec and antegrade Carotid artery morphology: Mild calcified plaque and bifurcation. Peak common carotid artery: 125/19 cm/sec Peak internal carotid artery: 96/18 cm/sec Normal peak systolic ratio. Any stenosis measurement is relative to the distal ICA diameters. Procedure Note Cory Patterson MD - 12/26/2021 COMPARISON: None. CAROTID ULTRASOUND FINDINGS: RIGHT: Peak external carotid artery: 131 cm/sec Peak vertebral: 52 cm/sec and antegrade Carotid artery morphology: Mild calcified plaque in the bifurcation. Peak common carotid artery: 103/13 cm/sec Peak internal carotid artery: 124/20 cm/sec Normal peak systolic ratio. LEFT: Peak external carotid artery: 82 cm/sec Peak vertebral: 46 cm/sec and antegrade Carotid artery morphology: Mild calcified plaque and bifurcation. Peak common carotid artery: 125/19 cm/sec Peak internal carotid artery: 96/18 cm/sec Normal peak systolic ratio. Any stenosis measurement is relative to the distal ICA diameters. IMPRESSION: 1. No hemodynamically significant internal carotid artery stenosis. 2. Bilateral antegrade vertebral artery flow. us Tan Son MD CV US NEUROVASCULAR Final Re sult documented in this encounter Visit Diagnoses Diagnosis Cerebrovascular accident (CVA), unspecified mechanism- Primary Cerebrovascular accident (CVA), unspecified mechanism documented in this encounter Care Teams Nailer Operator Relationship Specialty Start Date End Date Tona Hook MD [address] [place] [address] PCP - General 05/04/17 05/27/23 Grabiel Kasper MD [address] [place] [id number] PCP - General Family Medicine 05/28/23 documented as of this encounter Additional Source Comments The information contained in this document represents components of the legal health record. It is not the complete legal health record.[facility]
--- OUTSIDE RECORDS SUMMARY | 2025-06-28 01:01 | XMS_ITS | Clinical Summary ---
Author Organization Patient Business [facility] Address [address] [place] [address] Care Team Providers Care Prepared Foods Production Team Member Name Role Phone Grabiel Kasper MD Primary Care Pr ovider Allergies Active Allergy Reactions Criticality Noted Date Comments Codeine 10/05/2016 Hydrocodone Anxiety Low 10/05/2016 Hydrocodone-Acetaminoph en Anaphylaxis,Anxiety High 11/16/2005 Other Wheezing 12/07/2011 Penicillins 11/16/2005 does not recall RXN Phenacetin Medium 11/16/2005 does npt recall RXN Piroxicam Hives High 08/07/2008 Rofecoxib Anaphylaxis High 11/16/2005 Medications acetaminophen (TYLENOL) 500 mg tablet Take 1 tablet (500 mg total) by mouth 2 (two) times a day. 12/02/19 17 Active Refresh Tears 0.5 % ophthalmic solution 08/29/19 24 Active ammonium lactate (LAC-HYDRIN) 12 % lotion Apply topically if needed. 02/16/20 24 Active Xarelto 20 mg tablet Take 1 tablet (20 mg total) by mouth 1 (one) time each day with dinner. 06/02/20 24 Active albuterol HFA (PROAIR HFA ; [...] day. 90 each 1 06/28/20 24 Active topiramate (TOPAMAX) 25 mg tablet Take 1 tablet (25 mg total) by mouth 1 (one) time each day. 11/02/19 25 Active diclofenac (VOLTAREN) 1 % topical gelIndications:Tatiana benitez osteoarthritis of left knee Apply 1 g topically 3 (three) times a day. 90 g 2 11/18/19 25 Active isosorbide mononitrate (IMDUR) 30 mg 24 hr tablet Take 1 tablet (30 mg total) by mouth 1 (one) time each day. 01/10/20 25 Active citalopram (CeleXA) 20 mg tabletIndications: Major depressive disorder with single episode, in partial remission ([facility] V24) Take 1 tablet (20 mg total) by mouth 1 (one) time each day. 90 each 1 02/06/20 25 026 Active fluticasone propionate (FLONASE) 50 mcg/actuation nasal sprayIndications:S easonal allergic rhinitis due to pollen SHAKE LIQUID AND USE 1 SPRAY IN EACH NOSTRIL TWICE DAILY 48 g 02/06/20 25 Active umeclidinium-vilan teroL (Anoro Ellipta) 62.5-25 mcg/actuation inhalerIndications :Chronic obstructive pulmonary disease, unspecified COPD type (CMS/HCC V24, CMS/[facility] V28) Inhale 1 puff by mouth 1 (one) time each day. 3 each 3 04/11/20 25 026 Active tamsulosin (FLOMAX) 0.4 mg 24 hr capsule TAKE 1 CAPSULE BY MOUTH TWO TIMES A DAY 30 MINUTES AFTER SAME MEAL EACH DAY 180 capsule 1 04/24/20 25 Active compression socks, medium misc 1 Application 1 (one) time each day. 20-40mm HG compression knee high 3 each 3 05/07/20 25 026 Active atorvastatin (LIPITOR) 20 mg tablet Take 1 tablet (20 mg total) by mouth at bedtime. 90 each 1 05/15/20 25 Active furosemide (LASIX) 20 mg tabletIndications: Chronic venous insufficiency Take 1 tablet (20 mg total) by mouth 1 (one) time each day if needed (edema). 90 tablet 1 06/11/20 25 026 Active lactulose (CHRONULAC) solutionIndication s:Constipation, unspecified constipation type Take 30 mL (20 g total) by mouth 2 (two) times a day. 5400 mL 1 06/11/20 25 026 Active loratadine (CLARITIN) 10 mg tablet Take 1 tablet (10 mg total) by mouth 1 (one) time each day. 10/29/19 24 025 Discontin ued(Thera py completed ) furosemide (LASIX) 20 mg tabletIndications: Chronic venous insufficiency Take 1 tablet (20 mg total) by mouth 1 (one) time each day if needed (edema). 90 tablet 1 10/07/19 25 025 Discontin ued(Reord er) lactulose (CHRONULAC) solutionIndication s:Constipation, unspecified constipation type Take 30 mL (20 g total) by mouth 2 (two) times a day. 5400 mL 1 02/06/20 25 025 Discontin ued(Reord er) Hospital, Clinic, or Other Facility Administered Medication Ordered Dose Route Frequency Start Date End Date Status lidocaine (XYLOCAINE) 1 % injection 4 mLIndications:Primary osteoarthritis of left knee 4 mL Once PRN Procedure 06/07/2025 06/07/2025 Ended methylPREDNISolone acetate (DEPO-Medrol) injection 80 mgIndications:Primary osteoarthritis of left knee 80 mg Once PRN Procedure 06/07/2025 06/07/2025 Ended Active Problems Problem Noted Date Diagnosed Date [...] 2:52 PM EST): Advised to rescheduled missed [place] [facility] appt for routine surveillance Assessment & [...] meantime he should let him know his radar repairer regarding the left- sided chest pain. I [...] Encounters Date Type Department Care Team Description 06/27/2025 Nurse Triage Adult Medicine [address] [phone] Grabiel Kasper MD 06/21/2025 12:07 PM EST - 06/21/2025 11:59 PM EST Hospital Encounter Radiology Department [address] [phone] Gait abnormality Discharge Disposition: Home or Self Care 06/11/2025 2:00 PM EST Office Visit Adult Medicine [address] [phone] Grabiel Kasper MD Longstanding persistent atrial fibrillation ([facility]/HCC V24, CMS/HCC V28) (Primary Dx); Mild episode of recurrent major depressive disorder (CMS/HCC V24); Essential hypertension, benign; Protein S deficiency (CMS/HCC V24); Stage 1 mild COPD by GOLD classification (CMS/HCC V24, CMS/HCC V28); Chronic venous insufficiency; Constipation, unspecified constipation type; Malignant melanoma, unspecified site (CMS/HCC V24, CMS/HCC V28); Coronary artery disease due to lipid rich plaque; Bilateral carotid artery stenosis; Cerebrovascular accident (CVA) due to other mechanism (CMS/HCC V24, CMS/HCC V28); Gait abnormality; Benign prostatic hyperplasia with urinary frequency; Seizure disorder (CMS/HCC V24, CMS/HCC V28) 06/07/2025 9:45 AM EST Office Visit Orthopedics [address] [phone] Juve Menard PA Primary osteoarthritis of left knee (Primary Dx) 06/07/2025 Telephone Adult [address] [phone] Grabiel Kasper MD 06/04/2025 8:10 AM EST Lab Draw Station [address] Longstanding persistent atrial fibrillation (CMS/HCC V24, CMS/HCC V28); Mixed hyperlipidemia 06/04/2025 Results Follow-Up [address] [phone] Grabiel Kasper MD 05/17/[address] [phone] Grabiel Kasper MD 05/17/[address] [phone] Grabiel Kasper MD 05/07/2025 2:30 PM EDT Office Visit Orthopedic Surgery [address] [phone] Dank Rose, DPM Peripheral venous insufficiency (Primary Dx); Bilateral femoral artery stenosis (CMS/HCC V24); Dermatophytosis of nail; Primary osteoarthritis of both feet; Pain in toe of right foot; Pain in toe of left foot 04/17/2025 Telephone Adult Medicine [address] [phone] Marycruz Alonzo MA 04/17/2025 Telephone Adult [address] [phone] Grabiel Kasper MD from Last 3 Months Immunizations Immunization Administration Dates Next Due COVID-19 (Pfizer/Comirnaty) 12yo and older 04/14/2023 H1N1 Inj Preservative Free 09/23/2009 Hepatitis A Adult (Havrix; V aqta) 19yo and older 05/19/2017,10/08/2016 Hepatitis A-Hepatitis B Adul t (Twinrix) 18yo and older 05/19/2017,11/09/2016,10/08/2016 Hepatitis B (Dldgbaq-Y-Bcdvb , Recombivax HB-Adult) 19yo and older 05/19/2017,11/09/2016,10/08/2016 Influenza Quadravalent, 0.5m l (Fluad) 65yo and older 05/12/2025 Influenza Quadravalent, 0.5m l (Fluzone High-dose) 65yo [...] subun it RSVpreF, 0.5mL, Preservative Free (ABRYSVO) 50yo and older or 32 through 36 wks of 04/14/2023 RSV, bivalent, protein subun it RSVpreF, 0.5mL, Preservative Free (Arexvy) 50yo and older 04/14/2023 Td Tetanus diptheria (Tdvax) 7yo and older 05/27/2010,09/20/2003,09/20/2003 Td, Unspecified 05/27/2010,09/20/2003 Tdap Tetanus diptheria acell ular pertussis (Boostrix; Adacel) 7yo and older 05/15/2023,10/18/2015,09/21/2012 Zoster Live 11/17/2015,07/09/2008 Zoster recombinant (Shingrix ) 19yo and older 06/07/2020,04/09/2020,12/22/2017,10/14 Surgical History Surgery Date Site/Laterality Comments KNEE ARTHROPLASTY Left PROCEDURE: DC ARTHRS KNEE ABRASION ARTHRP/KEYSEATER OPERATOR DRLG/MICROFX; COMMENT: x 2 left SHOULDER ARTHROSCOPY PROCEDURE: DC SURGICAL ARTHROSCOPY SHOULDER W/LSS&RESCJ ADS HERNIA REPAIR 2004 PROCEDURE: REPAIR UMBILICAL HERNIA OTHER SURGICAL HISTORY PROCEDURE: DC BIOPSY LIVER NEEDLE PERCUTANEOUS HIP ARTHROPLASTY 05/2007 [...] of hemorrhage) Acquired hemolytic anemia, u nspecified ([facility] V24, [facility] V28) age 29 DX:Acquired hemolytic anemi a, unspecified (HCC); COMMENT: Resolved - 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 Unspecified transient cerebr al ischemia 1997 DX:Unspecified transient cer ebral ischemia; COMMENT: Carotid US Mri normal 1997 Essential hypertension, benign 01/11/2006 D X:Essential hypertension, benign Chronic bronchitis ([facility] V24, [facility] V28) 09/23/2009 DX:Chronic bronchitis (HCC) Fibrosis of liver DX:Fibrosis of liver; COMMENT: Grade 3/4 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/25 from Hep C Chest pain, atypical DX:Chest pa in, atypical; COMMENT: [place] [facility] neg stress MIBI Lab test negative for COVID-19 virus 10/25/2020 DX:Lab test negative for COVID- 19 virus Actinic keratoses 08/20/2022 DX:Actinic ker atoses Acute cough 12/16/2022 DX:Acute cough Diverticulitis of colon with out hemorrhage 11/16/2005 Hyperlipidemia Aortic aneurysm ([facility] V24) Atrial fibrillation ([facility] V24, [facility] V28) CVA (cerebral vascular accid ent) ([facility] V24, [facility] V28) Seizures ([facility] V24, [facility] V28) COPD (chronic obstructive pu lmonary disease) ([facility] V24, [facility] V28) Sleep apnea Family [...] 2 Q uit: 07/19/1989 Smokeless Tobacco: Former Tobacco [...] Sign Reading Time Taken Comments Blood Pressure 140/56 06/11/2025 1:49 PM EST A Pulse 60 06/11/2025 1:49 PM EST Temperature 36.8 C (98.3 F) 06/11/2025 1:49 PM EST Respiratory Rate 14 06/11/2025 1:49 PM EST Oxygen Saturation 95% 02/05/2025 8:39 AM EDT Inhaled Oxygen Concentration - - Weight 96.6 kg (213 lb) 06/21/2025 12:29 PM EST Height 175.3 cm (5' 9 ) 06/11/2025 1:49 PM EST Body Mass Index 31.45 06/11/2025 1:49 PM EST Plan of Treatment Upcoming Encounters Date Type Department Care Team (Late st Contact Info) Description 07/26/2025 1:00 PM EST Office Visit Adult Medicine [address] [phone] Grabiel Kasper MD [address] [place] [phone] 08/07/2025 9:45 AM EST Office Visit Orthopedic Surgery - [place] [address] [phone] Dank Rose, DPM [address] [phone] Health Maintenance Due Date Last Done Comments Social Influencers of Health Screening 05/20/2020 COVID-19 Vaccine (10 - Moderna risk season) 2025 04/13/2025, 04/12/2024, 04/14/2023, Additional history exists Falls Risk Assessment 12/05/2025 12/05/2024 Hypertension/CHF/CAD Annual BMP Blood Test 06/04/2026 06/04/2025, 10/09/2024, 04/04/2024, Additional history exists Cholesterol Screening (Lipid Panel) 06/04/2030 06/04/2025, 10/09/2024, 04/04/2024, Additional history exists DTaP,Tdap,and Td Vaccines [...] RSV Immunization Adult Patients Completed 04/14/2023, 04/14/2023 Influenza Vaccine Completed 05/12/2025, , 04/12/2024, Additional history exists Depression Screening Completed 06/11/2025 HIB Vaccines Aged Out No longer eligi [...] PT PT STG x 8 visits from [facility] 12/08/24 General No Lonnie Mackey, [...] from poor to fair PT STG Frome [facility] 12-08-24 General No Lonnie Mackey, PT Note: [x] = completed goal [] = NOT completed goal [] Pt will be able to perform sit<>supine without requiring UE support, [] Pt will be able to consistently negotiate stairs reciprocally , [] Pt will increased walking capacity to 1 hr to allow going to store Procedures Procedure Name Priority Date/Time Associated Diagnosis Comments DC ARTHROCENTESIS/ASPIRA TION/INJECTION MAJOR JOINT/BURSA W/O U/S GUIDANCE Routine 06/07/2025 9:45 AM EST Primary osteoarthritis of left knee CBC WITH AUTO DIFFERENTIAL Routine 06/04/2025 8:18 AM EST Longstanding persistent atrial fibrillation (CMS/HCC V24, CMS/HCC V28) LIPID PANEL WITH REFLEX TO DIRECT LDL Routine 06/04/2025 8:18 AM EST Mixed hyperlipidemia COMPREHENSIVE METABOLIC PANEL Routine 06/04/2025 8:18 AM EST Mixed hyperlipidemia HEMOGLOBIN A1C Routine 06/04/2025 8:18 AM EST Mixed hyperlipidemia CBC AND DIFFERENTIAL Routine 06/04/2025 8:18 AM EST Longstanding persistent atrial fibrillation (CMS/HCC V24, CMS/HCC V28) from Last 3 Months Results * DC ARTHROCENTESIS/ASPIRATION/INJECTION MAJOR JOINT/BURSA W/O U/S GUIDANCE (06/07/2025 9:45 AM EST) Juve Bartlett PA - 06/07/2025 9:45 AM EST FEMI Leal 06/07/2025 9:48 AM L Inj/Asp: L knee Indications: pain [...] with patient: Verbal Pre-procedure timeout performed: yes us Juve KAHN IN CLINIC/BEDSIDE ORDERABLES Fin al Result * Lipid panel with reflex to direct LDL (06/04/2025 8:18 AM EST) [facility] Cholesterol 132 0 - 200 mg/dL LAB CHEMISTRY METHOD 06/04/2025 11:37 AM [facility] Triglycerides 73 0 - 150 mg/dL LAB CHEMISTRY METHOD 06/04/2025 11:37 AM [facility] HDL 62 >=40 mg/dL LAB CHEMISTRY METHOD 06/04/2025 11:37 AM [facility] LDL Calculated 55 0 - 100 mg/dL LAB CHEMISTRY METHOD 06/04/2025 11:37 AM [facility] Comment:Estimated LDL Calcul ated using equation: Total cholesterol - HDL cholesterol - (Triglycerides/5) VLDL Cholesterol Gabriele 14.6 mg/dL LAB CHEMISTRY METHOD 06/04/2025 11:37 AM [facility] Non HDL Chol. (LDL+VLDL) 70 <145 mg/dL LAB CHEMISTRY METHOD 06/04/2025 11:37 AM [facility] Chol/HDL Ratio 2.1 0.0 - 4.4 LAB CHEMISTRY METHOD 06/04/2025 11:37 AM [facility] Blood Venous blood specimen / Unknown Venipuncture / Unknown 06/04/2025 8:18 AM EST 06/04/2025 8:18 AM EST Grabiel Kasper MD LAB BLOOD ORDERA BLES Final Result [facility] [address] [place] [address], * (ABNORMAL) CBC auto differential (06/04/2025 8:18 AM EST) [facility] WBC 5.3 4.8 - 10.8 K/mcL LAB HEMETOLOGY METHOD 06/04/2025 10:53 AM [facility] RBC 4.30(L) 4.50 - 5.50 M/mcL LAB HEMETOLOGY METHOD 06/04/2025 10:53 AM [facility] Hemoglobin 13.7 13.5 - 17.5 g/dL LAB HEMETOLOGY METHOD 06/04/2025 10:53 AM [facility] Hematocrit 41.2(L) 42.0 - 54.0 % LAB HEMETOLOGY METHOD 06/04/2025 10:53 AM [facility] MCV 96.9 79.0 - 98.0 FL LAB HEMETOLOGY METHOD 06/04/2025 10:53 AM [facility] MCH 32.2(H) 27.0 - 32.0 pcg LAB HEMETOLOGY METHOD 06/04/2025 10:53 AM [facility] MCHC 33.3 32.0 - 37.0 g/dL LAB HEMETOLOGY METHOD 06/04/2025 10:53 AM [facility] RDW 14.1 11.0 - 15.0 % LAB HEMETOLOGY METHOD 06/04/2025 10:53 AM [facility] Platelets 238 130 - 400 K/mcL LAB HEMETOLOGY METHOD 06/04/2025 10:53 AM [facility] MPV 10.3 7.0 - 11.0 FL LAB HEMETOLOGY METHOD 06/04/2025 10:53 AM [facility] NRBC 0.0 <1.0 % LAB HEMETOLOGY METHOD 06/04/2025 10:53 AM [facility] NRBC Absolute 0.00 <0.10 K/mcL LAB HEMETOLOGY METHOD 06/04/2025 10:53 AM [facility] Neutrophils Relative 68.8 % LAB HEMETOLOGY METHOD 06/04/2025 10:53 AM [facility] Lymphocytes Relative 18.4 % LAB HEMETOLOGY METHOD 06/04/2025 10:53 AM [facility] Monocytes Relative 7.8 % LAB HEMETOLOGY METHOD 06/04/2025 10:53 AM [facility] Eosinophils Relative 3.4 % LAB HEMETOLOGY METHOD 06/04/2025 10:53 AM [facility] Basophils Relative 1.0 % LAB HEMETOLOGY METHOD 06/04/2025 10:53 AM [facility] Immature Granulocytes Relative 0.6 % LAB HEMETOLOGY METHOD 06/04/2025 10:53 AM [facility] Neutrophils Absolute 3.62 1.50 - 7.00 K/mcL LAB HEMETOLOGY METHOD 06/04/2025 10:53 AM [facility] Lymphocytes Absolute 0.97(L) 1.00 - 5.00 K/mcL LAB HEMETOLOGY METHOD 06/04/2025 10:53 AM [facility] Monocytes Absolute 0.41 0.20 - 1.00 K/mcL LAB HEMETOLOGY METHOD 06/04/2025 10:53 AM [facility] Eosinophils Absolute 0.18 0.00 - 0.50 K/mcL LAB HEMETOLOGY METHOD 06/04/2025 10:53 AM [facility] Basophils Absolute 0.05 0.00 - 0.20 K/mcL LAB HEMETOLOGY METHOD 06/04/2025 10:53 AM [facility] Immature Granulocytes Absolute 0.03 0.00 - 0.03 K/mcL LAB HEMETOLOGY METHOD 06/04/2025 10:53 AM [facility] Blood Venous blood specimen / Unknown Venipuncture / Unknown 06/04/2025 8:18 AM EST 06/04/2025 8:18 AM EST us Grabiel Kasper MD LAB BLOOD ORDERA BLES Final Result [facility] [address] [place] [address], * Hemoglobin A1c (06/04/2025 8:18 AM EST) Pathologist [facility] Hemoglobin A1C 5.4 <6.5 % LAB CHEMISTRY METHOD 06/04/2025 11:50 AM EST [facility] Mean Bld Glu Estim. 108 mg/dL LAB CHEMISTRY METHOD 06/04/2025 11:50 AM [facility] Blood Venous blood specimen / Unknown Venipuncture / Unknown 06/04/2025 8:18 AM EST 06/04/2025 8:18 AM EST Grabiel Kasper MD LAB BLOOD ORDERA BLES Final Result [facility] [address] [place] [address], * (ABNORMAL) Comprehensive metabolic panel (06/04/2025 8:18 AM EST) [facility] Sodium 140 133 - 145 mmol/L LAB CHEMISTRY METHOD 06/04/2025 11:37 AM [facility] Potassium 4.0 3.5 - 5.5 mmol/L LAB CHEMISTRY METHOD 06/04/2025 11:37 AM [facility] Chloride 108 96 - 110 mmol/L LAB CHEMISTRY METHOD 06/04/2025 11:37 AM [facility] CO2 27 21 - 32 mmol/L LAB CHEMISTRY METHOD 06/04/2025 11:37 AM [facility] Anion Gap 5 3 - 11 LAB CHEMISTRY METHOD 06/04/2025 11:37 AM [facility] Glucose 105(H) 70 - 100 mg/dL LAB CHEMISTRY METHOD 06/04/2025 11:37 AM [facility] BUN 16 5 - 25 mg/dL LAB CHEMISTRY METHOD 06/04/2025 11:37 AM [facility] Creatinine 0.82 0.70 - 1.30 mg/dL LAB CHEMISTRY METHOD 06/04/2025 11:37 AM [facility] eGFR 87 >=60 mL/min/1. 73m2 LAB CHEMISTRY METHOD 06/04/2025 11:37 AM [facility] Comment:Calculation based on the Chronic Kidney Disease Epidemiology Collaboration (CKD-EPI) equation refit without adjustment for race. BUN/Creatinine Ratio 19.5 LAB CHEMISTRY METHOD 06/04/2025 11:37 AM [facility] Calcium 9.1 8.5 - 10.5 mg/dL LAB CHEMISTRY METHOD 06/04/2025 11:37 AM [facility] AST (SGOT) 11 10 - 42 unit/L LAB CHEMISTRY METHOD 06/04/2025 11:37 AM [facility] ALT (SGPT) 19 10 - 60 unit/L LAB CHEMISTRY METHOD 06/04/2025 11:37 AM [facility] Alkaline Phosphatase 54 42 - 121 unit/L LAB CHEMISTRY METHOD 06/04/2025 11:37 AM [facility] Total Protein 6.8 6.0 - 8.0 g/dL LAB CHEMISTRY METHOD 06/04/2025 11:37 AM [facility] Albumin 3.9 3.2 - 5.0 g/dL LAB CHEMISTRY METHOD 06/04/2025 11:37 AM [facility] Total Bilirubin 0.5 0.0 - 1.4 mg/dL LAB CHEMISTRY METHOD 06/04/2025 11:37 AM [facility] Blood Venous blood specimen / Unknown Venipuncture / Unknown 06/04/2025 8:18 AM EST 06/04/2025 8:18 AM EST Grabiel Kasper MD LAB BLOOD ORDERA BLES Final Result [facility] [address] [place] [address], from Last 3 Months Insurance [facility] Care Teams Prepared Foods Production Team Member Relationship Specialty Start Date End Date Grabiel Kasper MD [address] [place], [place] PCP - General Internal Medicine 02/02/22
--- OUTSIDE RECORDS SUMMARY | 2025-06-28 01:01 | XMS_ITS | Encounter Summary ---
Author Organization [facility] [place] [address] Care Team Providers Care Helper Animal Laboratory Name Role Phone Grabiel Kasper MD Primary Care Pr ovider Reason for Visit * Reason Onset Date Comments faxed order 06/07/2025 Powerback group PT eval Encounter Details Date Type Department Care Team (Late st Contact Info) Description 06/07/2025 Telephone Adult Medicine [address] [phone] Grabiel Kasper MD [address] [place] [address] Social History Tobacco Use Types Packs/Day Years [...] encounter Progress Notes * Sinai Stanton - 06/07/2025 8:53 AM EST Powerback group PT eval received please sign and fax to [phone] documented in this encounter Plan of Treatment Upcoming Encounters Date Type Department Care Team (Late st Contact Info) Description 07/26/2025 1:00 PM EST Office Visit Adult Medicine [facility] [address] [place], [place] [phone] Grabiel Kasper MD [address] [place], [place] 08/07/2025 9:45 AM EST Office Visit Orthopedic Surgery [facility] [address] [phone] Dank Rose, DPM [address] [phone] documented as of this encounter Goals Goal Patient Goal Type Associated Problems Recent Progress Patient-Stated? Author No pain General Yes Lonnie Mackey, PT PT STG x 8 visits from [facility] 12/08/24 General No Lonnie Mackey, PT [...] from poor to fair PT STG Frome [facility] 12-08-24 General No Lonnie Mackey, PT [...] on filedocumented in this encounter Care Teams Helper Animal Laboratory Relationship Specialty Start Date End Date Grabiel Kasper MD [address] [place] [address] PCP - General Internal Medicine 02/02/22 documented as of this encounter
--- OUTSIDE RECORDS SUMMARY | 2025-06-28 01:01 | XMS_ITS | Encounter Summary ---
Author Organization [facility] Address [address] [place], [place] [phone] Phone Care Team Providers Care Engine Lathe Set Up Operator Name Role Phone Tona Hook MD Primary Care Provider + Grabiel Kasper MD Primary Care Pr ovider Encounter Details Date Type Department Care Team (Late st Contact Info) Description 08/14/2021 Procedure Pass [address] [address] Social History Tobacco Use Types Packs/Day Years [...] on file documented as of this encounter Visit Diagnoses Not on filedocumented in this encounter Care Teams Engine Lathe Set Up Operator Relationship Specialty Start Date End Date Tona Hook MD [address] [place] [id number] PCP - General 05/04/17 05/27/23 Grabiel Kasper MD [address] [place] [id number] PCP - General Family Medicine 05/28/23 documented as of this encounter Additional Source Comments The information contained in this document represents components of the legal health record. It is not the complete legal health record.[facility]
--- OUTSIDE RECORDS SUMMARY | 2025-06-28 01:01 | XMS_ITS | Encounter Summary ---
Author Organization [facility] Address [address] [place], [place] [id number] Phone Care Team Providers Care Architectural Modeler Name Role Phone Tona Hook MD Primary Care Provider + Grabiel Kasper MD Primary Care Pr ovider Encounter Details Date Type Department Care Team (Late st Contact Info) Description 12/07/2017 Procedure Pass [facility], [address] [address] Social History Tobacco Use Types Packs/Day Years Used Date Smoking Tobacco: Never Assessed Sex and Gender Information Value Date Recorded Sex Assigned at Not on file Legal Sex Male 10:12 PM EDT Gender Identity Not on file Sexual Orientation Not on file documented as of this encounter Last Filed Vital Signs Vital Sign Reading Time Taken Comments Blood Pressure - - Pulse - - Temperature - - Respiratory Rate - - Oxygen Saturation - - Inhaled Oxygen Concentration - - Weight 97.5 kg (215 lb) 12/09/2017 6:16 PM EDT Height 177.8 cm (5' 10 ) 12/09/2017 6:16 PM EDT Body Mass Index 30.85 12/09/2017 6:16 PM EDT documented in this encounter Plan of Treatment Not on file documented as of this encounter Visit Diagnoses Not on filedocumented in this encounter Additional Health Concerns Infection Onset Date Last Indicated Resolved Time CoV-Risk 06/02/2021 06/02/2021 06/12/2021 1:24 AM EST CoV-Risk 06/16/2021 06/16/2021 06/26/2021 1:24 AM EST documented as of this encounter Care Teams Architectural Modeler Relationship Specialty Start Date End Date Tona Hook MD [address] [place] [address] PCP - General 05/04/17 05/27/23 Grabiel Kasper MD [address] [place] [address] PCP - General Family Medicine 05/28/23 documented as of this encounter Additional Source Comments The information contained in this document represents components of the legal health record. It is not the complete legal health record.[facility]
--- OUTSIDE RECORDS SUMMARY | 2025-06-28 01:01 | XMS_ITS | Encounter Summary ---
Author Organization [facility] Address [address] [place] [address] Care Team Providers Care Prepress Stripper Name Role Phone Grabiel Kasper MD Primary Care Pr ovider Encounter Details Date Type Department Care Team (Late st Contact Info) Description 06/04/2025 Results Follow-Up [address] [phone] Grabiel Kasper MD [address] [place] [address] Social History Tobacco Use Types Packs/Day Years [...] 1:00 PM EST Office Visit Adult Medicine South - [place] [address] [place], [place] [phone] Grabiel Kasper MD [address] [place], [place] 08/07/2025 9:45 AM EST Office Visit Orthopedic Surgery - [place] [address] [phone] Dank Rose, DPM [address] [phone] documented as of this encounter Goals Goal Patient Goal Type Associated Problems Recent Progress Patient-Stated? Author No pain General Yes Lonnie Mackey, PT PT STG x [address] [facility] 12/08/24 General No Lonnie Mackey, PT [...] from poor to fair PT STG [facility] 12-08-24 General No Lonnie Mackey, PT [...] on filedocumented in this encounter Care Teams Prepress Stripper Relationship Specialty Start Date End Date Grabiel Kasper MD [address] [place], [place] PCP - General Internal Medicine 02/02/22 documented as of this encounter
== END 2025-06-27 20:40 | disposition left against medical advice (07) ==
LOC: HO.ED 20:41
PROVIDERS: Physician Assistant Medical; Emergency Provider Emergency Medicine
DX: R42 Dizziness and giddiness (principal); R26.81 Unsteadiness on feet; I48.0 Paroxysmal atrial fibrillation; I10 Essential (primary) hypertension; Z87.891 Personal history of nicotine dependence; Z79.01 Long term (current) use of anticoagulants
CPT/HCPCS: 36415; 80048; 80076; 83735; 84484; 85025; 93005; 99283

== ENCOUNTER → 2025-06-27 14:11 | Outpatient (BNV) | payer OTHER, SELFPAY | PROVIDERS: Emergency Provider Emergency Medicine; Visit Provider Internal Medicine Cardiovascular Disease | DX: R94.31 Abnormal electrocardiogram [ECG] [EKG] (principal); R42 Dizziness and giddiness | CPT/HCPCS: 93010 ==

== ENCOUNTER 2025-07-03 08:13 | Emergency (ER) | payer OTHER, SELFPAY ==
--- OUTSIDE RECORDS SUMMARY | 2021-06-02 14:35 | XMS_ITS | Encounter Summary ---
Author Organization [facility] Address [address] [place] [phone] Phone Care Team Providers Care Lens Hardener Name Role Phone Tona Hook MD Primary Care Provider + Encounter Details Date Type Department Care Team (Late st Contact Info) Description 06/02/2021 2:35 PM EST Hospital Encounter [facility] [address] [place] [phone] Jessi Davis PA [address] [phone] [email or web address] Social History Tobacco Use Types Packs/Day Years [...] documented as of this encounter Care Teams Lens Hardener Relationship Specialty Start Date End Date Tona Hook MD [address] [place] [address] PCP - General 05/04/17 05/27/23 documented as of this encounter Additional Source Comments The information contained in this document represents components of the legal health record. It is not the complete legal health record.[facility]
--- OUTSIDE RECORDS SUMMARY | 2024-05-05 08:00 | XMS_ITS | Encounter Summary ---
Author Organization [facility] [place] [address] Care Team Providers Care Molder Meat Name Role Phone Grabiel Kasper MD Primary Care Pr ovider Encounter Details Date Type Department Care Team (Late st Contact Info) Description 05/05/2024 9:00 AM EDT Hospital Encounter TH HISTORIC ENCOUNTERS EASTERN CONVERSION ONLY Grabiel Kasper MD [address] [place] [address] Social History Tobacco Use Types Packs/Day Years [...] 1:00 PM EST Office Visit Adult Medicine [address] [phone] Grabiel Kasper MD [address] [place] [address] 08/07/2025 9:45 AM EST Office Visit Orthopedic Surgery - [place] [address] [phone] Dank Rose, DPM [address] [phone] documented as of this encounter Goals Goal Patient Goal Type Associated Problems Recent Progress Patient-Stated? Author No pain General Yes Lonnie Mackey, PT PT STG x [address] [facility] 12/08/24 General No Lonnie Mackey, PT Note: [...] from poor to fair PT STG Frome [facility] 12-08-24 General No Lonnie Mackey, PT Note: [...] on filedocumented in this encounter Care Teams Molder Meat Relationship Specialty Start Date End Date Grabiel Kasper MD [address] [place], [place] PCP - General Internal Medicine 02/02/22 documented as of this encounter
--- NOTE | ~2025-07-03 | XR_ITS ---
EXAMINATION: XR CHEST CLINICAL INFORMATION: COUGH COMPARISON: April 08, 2025 TECHNIQUE: PA and lateral views. FINDINGS: Pulmonary reticular pattern. No gross consolidation, pleural effusion or pneumothorax. Cardiomediastinal silhouette size is normal. Calcified plaque thoracic aorta. Level spondylosis, axial skeleton. 15 mm gap at the right acromioclavicular joint, unchanged. XR/XR chest 2V IMPRESSION: Chronic interstitial lung disease. Consider COPD emphysematous type changes. No gross acute airspace disease. Electronically signed by: Alfonzo Moses MD 07/03/2025 09:04 AM [facility]
--- NOTE | ~2025-07-03 | CT_ITS ---
EXAMINATION: CT CHEST ANGIOGRAPHY WITH IV CONTRAST INDICATION: +DVT, on eliquis, CP, SOB COMPARISON: Previous chest CT most recent April 2024 and chest x-ray from earlier the same day TECHNIQUE: Helical CT scan of the chest was performed following administration of intravenous contrast (65 mL Omnipaque 350). The contrast bolus was timed to optimally opacify the pulmonary arteries. Thin sections were obtained through the pulmonary arteries. Coronal and sagittal reformatted images were generated. 3D/MIP reconstructed images are also obtained and reviewed. This CT exam was performed with one or more of the following dose reduction techniques: automated exposure control, adjustment of the mA and/or kV according to patient size, use of iterative reconstruction technique. DLP: 228 pulmonary arteries are prominent. The main pulmonary artery measures 3.8 cm diameter. This is slightly increased from 3.5 cm on April 2024 exam. mGy-cm CHEST: THYROID: The thyroid gland is unremarkable. PULMONARY ARTERIES: No intraluminal filling defects are identified within the pulmonary arteries to suggest pulmonary emboli. Pulmonary arteries are enlarged. Main pulmonary artery measures 3.8 cm in diameter increased in size from 3.5 cm on 2023 exam. No evidence of right heart strain. No reflux of contrast into the liver. LUNGS: The lungs are clear. No consolidation or pulmonary edema. Mild bronchial wall thickening of both lower lobes. Central airways are clear. MEDIASTINUM: Small mediastinal lymph nodes. No enlarged lymph nodes. ANDRÉS: There is no hilar lymphadenopathy. CARDIOVASCULATURE: The heart is enlarged. There is no pericardial effusion. The thoracic aorta is normal in caliber. DEGREE OF CORONARY CALCIFICATION: mild PLEURA: There is no pleural effusion. No pneumothorax. MAIN AIRWAYS: The mainstem bronchi and proximal branches are patent. AXILLA: There is no axillary lymphadenopathy. UPPER ABDOMEN: Right renal cyst. Small calcification in the peripheral spleen. Fatty infiltration of the pancreas. Cholecystectomy. Diverticulosis of the colon. BONES AND SOFT TISSUES: Degenerative changes of the spine. CT/CT angio chest PE protocol IMPRESSION: No evidence of pulmonary emboli. Dilated pulmonary arteries, main pulmonary artery measuring 3.8 cm. This is slightly increased from April 2024 exam questionable for pulmonary artery hypertension. Enlarged heart. Electronically signed by: Herlinda Barraza MD 07/03/2025 01:17 PM EST
--- NOTE | ~2025-07-03 | US_ITS ---
EXAMINATION: US TRIPLEX LOWER EXTREMITY, BILATERAL CLINICAL INFORMATION: Bilateral calf pain COMPARISON: 04/10/2024 TECHNIQUE: Color-flow triplex imaging with spectral analysis and compression Doppler were performed on the bilateral lower extremities. FINDINGS: Respiratory variation, normal compression and augmented flow are noted throughout the bilateral lower extremities. The visualized common femoral vein, superficial femoral vein, profunda femoral vein, popliteal vein and midcalf peroneal and posterior tibial venous segments show no evidence of deep venous thrombosis bilaterally. There is minimal echogenic material in the deep wall of the left mid femoral vein that is similar to slightly decreased compared with the prior. US/US venous duplex LE BI IMPRESSION: No evidence of acute deep venous thrombosis involving the bilateral lower extremities. 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 Chronic changes in the left common femoral vein are no longer demonstrated. Electronically signed by: Praveen Beckford MD 07/03/2025 11:19 AM DARLENE
[2025-07-03 08:28] VITALS: BP 135/64; PULSE 67; RESP 16; TEMP 36.6; O2SAT 96; BMI 31.7
--- OUTSIDE RECORDS SUMMARY | 2025-07-03 09:09 | XMS_ITS | Encounter Summary ---
Author Organization [facility] Address [address] [place], [place] [id number] Phone Care Team Providers Care Welding Manager Name Role Phone Tona Hook MD Primary Care Provider + Grabiel Kasper MD Primary Care Pr ovider Encounter Details Date Type Department Care Team (Late st Contact Info) Description 08/14/2021 Procedure Pass [address] [address] Social History Tobacco Use Types Packs/Day Years [...] on filedocumented in this encounter Care Teams Welding Manager Relationship Specialty Start Date End Date Tona Hook MD [address] [place] [address] PCP - General 05/04/17 05/27/23 Grabiel Kasper MD [address] [place] [address] PCP - General Family Medicine 05/28/23 documented as of this encounter Additional Source Comments The information contained in this document represents components of the legal health record. It is not the complete legal health record.[facility]
--- OUTSIDE RECORDS SUMMARY | 2025-07-03 09:09 | XMS_ITS | Encounter Summary ---
Author Organization [facility] Address [address] [place], [place] [id number] Phone Care Team Providers Care Vp Software Engineering Name Role Phone Tona Hook MD Primary Care Provider + Grabiel Kasper MD Primary Care Pr ovider Reason for Referral * Outpatient Procedure - Closed Specialty Diagnoses / Procedures Referred By Contac t Referred To Contact Radiology Diagnoses Cerebrovascular accident (CVA), unspecified mechanism Procedures US Carotid Duplex Complete (Bilateral) Tan Son MD Phone: tel: fax: [email or web address] Referral ID Status Reason Start Date Expiration Date Visits Re quested Visits Authorized [id number] Closed 12/17/2021 12/17/2022 1 1 Encounter Details Date Type Department Care Team (Latest Contact Info) Description 12/17/2021 Transcribe Orders Virtual Department [address] [place] [phone] Tan Son MD [address] [place] [address], [address] [place] [address] [email or web address] Cerebrovascular accident (CVA), unspecified mechanism (Primary [...] mechanism documented in this encounter Care Teams Vp Software Engineering Relationship Specialty Start Date End Date Tona Hook MD [address] [place] [address] PCP - General 05/04/17 05/27/23 Grabiel Kasper MD [address] [place] [address] PCP - General Family Medicine 05/28/23 documented as of this encounter Additional Source Comments The information contained in this document represents components of the legal health record. It is not the complete legal health record.[facility]
--- OUTSIDE RECORDS SUMMARY | 2025-07-03 09:09 | XMS_ITS ---
Author Organization [facility] Address [address] [place] [address] Care Team Providers Care Aerospace Engineer Name Role Phone Grabiel Kasper MD Primary [...] 2:52 PM EST): Advised to rescheduled missed [facility] appt for routine surveillance Assessment & [...] meantime he should let him know his pump operator byproducts regarding the left- sided chest pain. I [...]
--- OUTSIDE RECORDS SUMMARY | 2025-07-03 09:09 | XMS_ITS | Encounter Summary ---
Author Organization [facility] Address [address] [place], [place] [phone] Phone Care Team Providers Care Echocardiographer Name Role Phone Toan Hook MD Primary Care Provider + Grabiel Kasper MD Primary Care Pr ovider Reason for Referral * MRI/CAT Scan - Closed Specialty Diagnoses / Procedures Referred By Shaw pfeiffer Referred To Contact Radiology Diagnoses Numbness of face Nausea Left sided numbness Procedures MRI Brain CHG MRI BRAIN COMBO CHG MRI BRAIN CONTRAST CHG MRI BRAIN Tan Son MD Phone: tel: fax: [email or web address] Referral ID Status Reason Start Date Expiration Date Visits Re quested Visits Authorized [id number] Closed 09/08/2021 10/05/2021 1 1 Encounter Details Date Type Department Care Team (Latest Contact Info) Description 08/14/2021 Transcribe Orders Virtual Department [address] [place] [address] Tan Son MD [address] [place] [address], [address] [place] [address] [email or web address] Numbness of face (Primary Dx); Nausea; [...] numbness documented in this encounter Care Teams Echocardiographer Relationship Specialty Start Date End Date Tona Hook MD [address] [place] [address] PCP - General 05/04/17 05/27/23 Grabiel Kasper MD [address] [place] [address] PCP - General Family Medicine 05/28/23 documented as of this encounter Additional Source Comments The information contained in this document represents components of the legal health record. It is not the complete legal health record.[facility]
--- OUTSIDE RECORDS SUMMARY | 2025-07-03 09:09 | XMS_ITS | Clinical Summary ---
Author Organization [facility] Address [address] [place] [address] Care Team Providers Care Asthma Educator Name Role Phone Grabiel Kasper MD Primary [...] disorder with single episode, in partial remission ([facility] V24) Take 1 tablet (20 mg total) [...] pulmonary disease, unspecified COPD type (CMS/HCC V24, CMS/[facility] V28) Inhale 1 puff by mouth 1 [...] 2:52 PM EST): Advised to rescheduled missed [place] [facility] appt for routine surveillance Assessment & [...] meantime he should let 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 I [...] Team Description 06/27/2025 Nurse Triage Adult Medicine [address] [phone] Grabiel Kasper MD 06/21/2025 12:07 PM EST - 06/21/2025 11:59 PM EST Hospital Encounter Radiology Department [address] [phone] Gait abnormality Discharge Disposition: Home or Self Care 06/11/2025 2:00 PM EST Office Visit Adult Medicine [address] [phone] Grabiel Kasper MD Longstanding persistent atrial fibrillation ([facility]/HCC V24, CMS/HCC V28) (Primary Dx); Mild [...] 06/07/2025 9:45 AM EST Office Visit Orthopedics [address] [phone] Juve Menard PA Primary osteoarthritis of left knee (Primary Dx) 06/07/2025 Telephone Adult [address] [phone] Grabiel Kasper MD 06/04/2025 8:10 AM EST Lab Draw Station [address] Longstanding persistent atrial fibrillation (CMS/HCC V24, CMS/HCC V28); Mixed hyperlipidemia 06/04/2025 Results Follow-Up [address] [phone] Grabiel Kasper MD 05/17/[address] [phone] Grabiel Kasper MD 05/17/[address] [phone] Grabiel Kasper MD 05/07/2025 2:30 PM EDT Office Visit Orthopedic Surgery [address] [phone] Dank Rose, DPM Peripheral venous insufficiency (Primary Dx); Bilateral femoral artery stenosis (CMS/HCC V24); Dermatophytosis of nail; Primary osteoarthritis of both feet; Pain in toe of right foot; Pain in toe of left foot 04/17/2025 Telephone Adult Medicine [address] [phone] Marycruz Alonzo [place] 04/17/2025 Telephone Adult [address] [phone] Grabiel Kasper MD from Last 3 Months Immunizations Immunization Administration Dates Next Due COVID-19 (Pfizer/Comirnaty) 12yo and older 04/14/2023 H1N1 Inj Preservative Free 09/23/2009 Hepatitis A Adult (Havrix; V aqta) 19yo and older 05/19/2017,10/08/2016 Hepatitis A-Hepatitis B Adul t (Twinrix) 18yo and older 05/19/2017,11/09/2016,10/08/2016 Hepatitis B (Kqiomps-O-Lxrhv , Recombivax HB-Adult) 19yo and older 05/19/2017,11/09/2016,10/08/2016 [...] Date Site/Laterality Comments KNEE ARTHROPLASTY Left PROCEDURE: WA ARTHRS KNEE ABRASION ARTHRP/INSPECTOR RECEIVING DRLG/MICROFX; COMMENT: x 2 left SHOULDER ARTHROSCOPY PROCEDURE: WA SURGICAL ARTHROSCOPY SHOULDER W/LSS&RESCJ ADS HERNIA REPAIR 2004 PROCEDURE: REPAIR UMBILICAL HERNIA OTHER SURGICAL HISTORY PROCEDURE: WA BIOPSY LIVER NEEDLE PERCUTANEOUS HIP ARTHROPLASTY 05/2007 [...] of hemorrhage) Acquired hemolytic anemia, u nspecified ([facility] V24, [facility] V28) age 29 DX:Acquired hemolytic anemi a, unspecified (HCC); COMMENT: Resolved - 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 Unspecified transient cerebr al ischemia 1997 DX:Unspecified transient cer ebral ischemia; COMMENT: Carotid US Mri normal 1997 Essential hypertension, benign 01/11/2006 D X:Essential hypertension, benign Chronic bronchitis ([facility] V24, [facility] V28) 09/23/2009 DX:Chronic bronchitis (HCC) Fibrosis of liver DX:Fibrosis of liver; COMMENT: Grade 3/4 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/25 from Hep C Chest pain, atypical DX:Chest pa in, atypical; COMMENT: [place] [facility] neg stress MIBI Lab test negative for COVID-19 virus 10/25/2020 DX:Lab test negative for COVID- 19 virus Actinic keratoses 08/20/2022 DX:Actinic ker atoses Acute cough 12/16/2022 DX:Acute cough Diverticulitis of colon with out hemorrhage 11/16/2005 Hyperlipidemia Aortic aneurysm ([facility] V24) Atrial fibrillation ([facility] V24, [facility] V28) CVA (cerebral vascular accid ent) ([facility] V24, [facility] V28) Seizures ([facility] V24, [facility] V28) COPD (chronic obstructive pu lmonary disease) ([facility] V24, [facility] V28) Sleep apnea [...] 1:00 PM EST Office Visit Adult Medicine [address] [phone] Grabiel Kasper MD [address] [place] [address] 08/07/2025 9:45 AM EST Office Visit Orthopedic Surgery - [place] [address] [phone] Dank Rose, DPM [address] [phone] Health Maintenance Due Date Last [...] PT PT STG x 8 visits from [facility] 12/08/24 General No Lonnie Mackey, PT [...] from poor to fair PT STG Frome [facility] 12-08-24 General No Lonnie Mackey, PT Note: [x] = completed goal [] = NOT completed goal [] Pt will be able to perform sit<>supine without requiring UE support, [] Pt will be able to consistently negotiate stairs reciprocally , [] Pt will increased walking capacity to 1 hr to allow going to store Procedures Procedure Name Priority Date/Time Associated Diagnosis Comments WA ARTHROCENTESIS/ASPIRA TION/INJECTION MAJOR JOINT/BURSA W/O U/S GUIDANCE [...] V28) from Last 3 Months Results * WA ARTHROCENTESIS/ASPIRATION/INJECTION MAJOR JOINT/BURSA W/O U/S GUIDANCE (06/07/2025 [...] to direct LDL (06/04/2025 8:18 AM EST) [facility] Cholesterol 132 0 - 200 mg/dL LAB CHEMISTRY METHOD 06/04/2025 11:37 AM [facility] Triglycerides 73 0 - 150 mg/dL LAB CHEMISTRY METHOD 06/04/2025 11:37 AM [facility] HDL 62 >=40 mg/dL LAB CHEMISTRY METHOD 06/04/2025 11:37 AM [facility] LDL Calculated 55 0 - 100 mg/dL LAB CHEMISTRY METHOD 06/04/2025 11:37 AM [facility] Comment:Estimated LDL Calcul ated using equation: Total cholesterol - HDL cholesterol - (Triglycerides/5) VLDL Cholesterol Gabriele 14.6 mg/dL LAB CHEMISTRY METHOD 06/04/2025 11:37 AM [facility] Non HDL Chol. (LDL+VLDL) 70 <145 mg/dL LAB CHEMISTRY METHOD 06/04/2025 11:37 AM [facility] Chol/HDL Ratio 2.1 0.0 - 4.4 LAB CHEMISTRY METHOD 06/04/2025 11:37 AM [facility] Blood Venous blood specimen / Unknown Venipuncture / Unknown 06/04/2025 8:18 AM EST 06/04/2025 8:18 AM EST Grabiel Kasper MD LAB BLOOD ORDERA BLES Final Result [facility] [address] [place] [address], * (ABNORMAL) CBC auto differential (06/04/2025 8:18 AM EST) [facility] WBC 5.3 4.8 - 10.8 K/mcL LAB HEMETOLOGY METHOD 06/04/2025 10:53 AM [facility] RBC 4.30(L) 4.50 - 5.50 M/mcL LAB HEMETOLOGY METHOD 06/04/2025 10:53 AM [facility] Hemoglobin 13.7 13.5 - 17.5 g/dL LAB HEMETOLOGY METHOD 06/04/2025 10:53 AM [facility] Hematocrit 41.2(L) 42.0 - 54.0 % LAB HEMETOLOGY METHOD 06/04/2025 10:53 AM [facility] MCV 96.9 79.0 - 98.0 FL LAB HEMETOLOGY METHOD 06/04/2025 10:53 AM [facility] MCH 32.2(H) 27.0 - 32.0 pcg LAB HEMETOLOGY METHOD 06/04/2025 10:53 AM [facility] MCHC 33.3 32.0 - 37.0 g/dL LAB HEMETOLOGY METHOD 06/04/2025 10:53 AM [facility] RDW 14.1 11.0 - 15.0 % LAB HEMETOLOGY METHOD 06/04/2025 10:53 AM [facility] Platelets 238 130 - 400 K/mcL LAB HEMETOLOGY METHOD 06/04/2025 10:53 AM [facility] MPV 10.3 7.0 - 11.0 FL LAB HEMETOLOGY METHOD 06/04/2025 10:53 AM [facility] NRBC 0.0 <1.0 % LAB HEMETOLOGY METHOD 06/04/2025 10:53 AM [facility] NRBC Absolute 0.00 <0.10 K/mcL LAB HEMETOLOGY METHOD 06/04/2025 10:53 AM [facility] Neutrophils Relative 68.8 % LAB HEMETOLOGY METHOD 06/04/2025 10:53 AM [facility] Lymphocytes Relative 18.4 % LAB HEMETOLOGY METHOD 06/04/2025 10:53 AM [facility] Monocytes Relative 7.8 % LAB HEMETOLOGY METHOD 06/04/2025 10:53 AM [facility] Eosinophils Relative 3.4 % LAB HEMETOLOGY METHOD 06/04/2025 10:53 AM [facility] Basophils Relative 1.0 % LAB HEMETOLOGY METHOD 06/04/2025 10:53 AM [facility] Immature Granulocytes Relative 0.6 % LAB HEMETOLOGY METHOD 06/04/2025 10:53 AM [facility] Neutrophils Absolute 3.62 1.50 - 7.00 K/mcL LAB HEMETOLOGY METHOD 06/04/2025 10:53 AM [facility] Lymphocytes Absolute 0.97(L) 1.00 - 5.00 K/mcL LAB HEMETOLOGY METHOD 06/04/2025 10:53 AM [facility] Monocytes Absolute 0.41 0.20 - 1.00 K/mcL LAB HEMETOLOGY METHOD 06/04/2025 10:53 AM [facility] Eosinophils Absolute 0.18 0.00 - 0.50 K/mcL LAB HEMETOLOGY METHOD 06/04/2025 10:53 AM [facility] Basophils Absolute 0.05 0.00 - 0.20 K/mcL LAB HEMETOLOGY METHOD 06/04/2025 10:53 AM [facility] Immature Granulocytes Absolute 0.03 0.00 - 0.03 K/mcL LAB HEMETOLOGY METHOD 06/04/2025 10:53 AM [facility] Blood Venous blood specimen / Unknown Venipuncture / Unknown 06/04/2025 8:18 AM EST 06/04/2025 8:18 AM EST us Grabiel Kasper MD LAB BLOOD ORDERA BLES Final Result [facility] [address] [place] [address], * Hemoglobin A1c (06/04/2025 8:18 AM EST) Pathologist [facility] Hemoglobin A1C 5.4 <6.5 % LAB CHEMISTRY METHOD 06/04/2025 11:50 AM EST [facility] Mean Bld Glu Estim. 108 mg/dL LAB CHEMISTRY METHOD 06/04/2025 11:50 AM [facility] Blood Venous blood specimen / Unknown Venipuncture / Unknown 06/04/2025 8:18 AM EST 06/04/2025 8:18 AM EST Grabiel Kasper MD LAB BLOOD ORDERA BLES Final Result [facility] [address] [place] [address], * (ABNORMAL) Comprehensive metabolic panel (06/04/2025 8:18 AM EST) [facility] Sodium 140 133 - 145 mmol/L LAB CHEMISTRY METHOD 06/04/2025 11:37 AM [facility] Potassium 4.0 3.5 - 5.5 mmol/L LAB CHEMISTRY METHOD 06/04/2025 11:37 AM [facility] Chloride 108 96 - 110 mmol/L LAB CHEMISTRY METHOD 06/04/2025 11:37 AM [facility] CO2 27 21 - 32 mmol/L LAB CHEMISTRY METHOD 06/04/2025 11:37 AM [facility] Anion Gap 5 3 - 11 LAB CHEMISTRY METHOD 06/04/2025 11:37 AM [facility] Glucose 105(H) 70 - 100 mg/dL LAB CHEMISTRY METHOD 06/04/2025 11:37 AM [facility] BUN 16 5 - 25 mg/dL LAB CHEMISTRY METHOD 06/04/2025 11:37 AM [facility] Creatinine 0.82 0.70 - 1.30 mg/dL LAB CHEMISTRY METHOD 06/04/2025 11:37 AM [facility] eGFR 87 >=60 mL/min/1. 73m2 LAB CHEMISTRY METHOD 06/04/2025 11:37 AM [facility] Comment:Calculation based on the Chronic Kidney Disease Epidemiology Collaboration (CKD-EPI) equation refit without adjustment for race. BUN/Creatinine Ratio 19.5 LAB CHEMISTRY METHOD 06/04/2025 11:37 AM [facility] Calcium 9.1 8.5 - 10.5 mg/dL LAB CHEMISTRY METHOD 06/04/2025 11:37 AM [facility] AST (SGOT) 11 10 - 42 unit/L LAB CHEMISTRY METHOD 06/04/2025 11:37 AM [facility] ALT (SGPT) 19 10 - 60 unit/L LAB CHEMISTRY METHOD 06/04/2025 11:37 AM [facility] Alkaline Phosphatase 54 42 - 121 unit/L LAB CHEMISTRY METHOD 06/04/2025 11:37 AM [facility] Total Protein 6.8 6.0 - 8.0 g/dL LAB CHEMISTRY METHOD 06/04/2025 11:37 AM [facility] Albumin 3.9 3.2 - 5.0 g/dL LAB CHEMISTRY METHOD 06/04/2025 11:37 AM [facility] Total Bilirubin 0.5 0.0 - 1.4 mg/dL LAB CHEMISTRY METHOD 06/04/2025 11:37 AM [facility] Blood Venous blood specimen / Unknown Venipuncture / Unknown 06/04/2025 8:18 AM EST 06/04/2025 8:18 AM EST Grabiel Kasper MD LAB BLOOD ORDERA BLES Final Result [facility] [address] [place] [address], from Last 3 Months Insurance [facility] [employer] Care Teams Asthma Educator Relationship Specialty Start Date End Date Grabiel Kasper MD [address] [place], [place] PCP - General Internal Medicine 02/02/22
--- OUTSIDE RECORDS SUMMARY | 2025-07-03 09:09 | XMS_ITS | Clinical Summary ---
Author Organization [facility] Address [address] [place], [place] [phone] Phone Care Team Providers Care Extractor Tender Raw Stock Name Role Phone Grabiel Kasper MD Primary [...] MALGORZATA CREWS Comment: xamarioto. cardiology Dr. Giron [facility]. 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 Neurology Dr. Jon Sleep apnea 06/13/2021 [...] topic Medical Devices Not on file [place] [address] [address] [place] [address] [address] [place] [place] [address] [place] [address] HE[address] PLAN Care Teams Extractor Tender Raw Stock Relationship Specialty Start Date End Date Grabiel Kasper MD PCP - General Family Medicine 05/28/23 Additional Source Comments The information contained in this document represents components of the legal health record. It is not the complete legal health record.[facility]
--- OUTSIDE RECORDS SUMMARY | 2025-07-03 09:09 | XMS_ITS | Encounter Summary ---
Author Organization [facility] Address [address] [place], [place] [phone] Phone Care Team Providers Care Hospital Carrier Name Role Phone Tona Hook MD Primary Care Provider + Grabiel Kasper MD Primary Care Pr ovider Encounter Details Date Type Department Care Team (Late st Contact Info) Description 12/07/2017 Ancillary Orders Virtual Department [address] [place] [address] Miguelangel Sharma MD [address] [place] [id number] Aching pain Social History Tobacco Use Types [...] narrowing from C4-5 through C6-7. POS - [id number] Edited by: Jenelle Unger on 12/15/2017 7:23 [...] foraminalnarrowing from C4-5 through C6-7. POS - [id number] Edited by: Jenelle Unger on 12/15/2017 7:23 [...] documented as of this encounter Care Teams Hospital Carrier Relationship Specialty Start Date End Date Tona Hook MD [address] [place] [address] PCP - General 05/04/17 05/27/23 Grabiel Kasper MD [address] [place] [address] PCP - General Family Medicine 05/28/23 documented as of this encounter Additional Source Comments The information contained in this document represents components of the legal health record. It is not the complete legal health record.[facility]
--- OUTSIDE RECORDS SUMMARY | 2025-07-03 09:10 | XMS_ITS | Encounter Summary ---
Author Organization [facility] Address [address] [place], [place] [id number] Phone Care Team Providers Care Hot Metal Crane Operator Name Role Phone Tona Hook MD Primary Care Provider + Grabiel Kasper MD Primary Care Pr ovider Encounter Details Date Type Department Care Team (Late st Contact Info) Description 12/07/2017 Procedure Pass [facility], [address] [address] Social History Tobacco Use Types Packs/Day Years [...] documented as of this encounter Care Teams Hot Metal Crane Operator Relationship Specialty Start Date End Date Tona Hook MD [address] [place] [address] PCP - General 05/04/17 05/27/23 Grabiel Kasper MD [address] [place] [address] PCP - General Family Medicine 05/28/23 documented as of this encounter Additional Source Comments The information contained in this document represents components of the legal health record. It is not the complete legal health record.[facility]
--- OUTSIDE RECORDS SUMMARY | 2025-07-03 09:10 | XMS_ITS | Encounter Summary ---
Author Organization [facility] [place] [address] Care Team Providers Care Clinical Staff Educator Name Role Phone Grabiel Kasper MD Primary Care Pr ovider Reason for Visit * Reason Onset Date Comments faxed order 06/07/2025 Powerback group PT eval Encounter Details Date Type Department Care Team (Late st Contact Info) Description 06/07/2025 Telephone Adult Medicine [address] [phone] Grabiel Kasper MD [address] [place] [address] Social History Tobacco Use Types Packs/Day Years [...] eval received please sign and fax to [phone] documented in this encounter Plan of Treatment Upcoming Encounters Date Type Department Care Team (Late st Contact Info) Description 07/26/2025 1:00 PM EST Office Visit Adult Medicine [facility] [address] [place], [place] [phone] Grabiel Kasper MD [address] [place], [place] 08/07/2025 9:45 AM EST Office Visit Orthopedic Surgery [facility] [address] [phone] Dank Rose, DPM [address] [phone] documented as of this encounter Goals Goal Patient Goal Type Associated Problems Recent Progress Patient-Stated? Author No pain General Yes Lonnie Mackey, PT PT STG x 8 visits from [facility] 12/08/24 General No Lonnie Mackey, [...] poor to fair PT STG Frome [facility] 12-08-24 General No Lonnie Mackey, [...] on filedocumented in this encounter Care Teams Clinical Staff Educator Relationship Specialty Start Date End Date Grabiel Kasper MD [address] [facility] [place] [address] PCP - General Internal Medicine 02/02/22 documented as of this encounter
--- OUTSIDE RECORDS SUMMARY | 2025-07-03 09:10 | XMS_ITS | Encounter Summary ---
Author Organization [facility] Address [address] [place] [address] Care Team Providers Care Rock Contractor Name Role Phone Grabiel Kasper MD Primary Care Pr ovider Encounter Details Date Type Department Care Team (Late st Contact Info) Description 06/04/2025 Results Follow-Up [address] [phone] Grabiel Kasper MD [address] [place] [address] Social History Tobacco Use Types Packs/Day Years [...] EST Office Visit [place] Medicine [place] [address] [place], [place] [phone] Grabiel Kasper MD [address] [place], [place] 08/07/2025 9:45 AM EST Office Visit Orthopedic Surgery - [place] [id number] [phone] Dank Rose, DPM [address] [phone] documented as of this encounter Goals Goal Patient Goal Type Associated Problems Recent Progress Patient-Stated? Author No pain General Yes Lonnie Mackey, PT PT STG x 8 visits from [facility] 12/08/24 General No Lonnie [...] from poor to fair PT STG Frome [facility] 12-08-24 General No Lonnie [...] on filedocumented in this encounter Care Teams Rock Contractor Relationship Specialty Start Date End Date Grabiel Kasper MD [address] [place], [place] PCP - General Internal Medicine 02/02/22 documented as of this encounter
--- NOTE | 2025-07-03 09:38 | ED.URI ---
HPI - URI/Sore Throat General Chief Complaint: Upper Respiratory Symptoms Stated Complaint: upper resp symptoms Time Seen by Provider: 07/03/25 09:23 Source: patient and RN notes reviewed Mode of arrival: ambulatory Limitations: no limitations History of Present Illness ED Provider: Court Riley PA-C HPI Narrative: This is a 84-year-old male, with a past medical history of hypertension, paroxysmal atrial fibrillation, CAD, Hypertension, seizure disorder,who presents emergency department with concerns of productive cough x2 weeks, as well as sore chest from coughing. Patient reports that over the last week, patient has had upper chest pain that has progressively worsened, particularly with coughing. Cough is productive with milky colored sputum, denies any green, yellow, or bloody sputum. Patient reports that the coughing makes him dizzy at times. He does report some mild shortness for breath with exertion and with lying flat. He denies any fevers, chills, abdominal pain, nausea, vomiting or diarrhea. He denies any sick contacts. He does report some lower extremity swelling, left greater than right, with some associated calf discomfort. When asked about COPD or asthma, he denies any known history, he does report he was a former smoker, quit in the early 1960s. He denies taking any [id number] medications to treat his current symptoms. No other complaints or concerns at this time. MD elicited complaint: cough Consistency: constant Severity: moderate Exacerbating factors: supine positioning Relieving factors: nothing Associated symptoms: denies other symptoms Treatments prior to arrival: none Related Data Home Medications ?Medication ?Instructions ?Recorded ?Confirmed albuterol sulfate 90 mcg/actuation 2 puff inhalation Q4H PRN wheezing 12/12/20 02/02/25 aerosol inhaler ascorbic acid (vitamin C) 500 mg 500 mg PO DAILY 05/22/21 02/02/25 capsule atorvastatin 20 mg tablet 20 mg PO DAILY 11/25/21 02/02/25 tamsulosin 0.4 mg capsule 0.4 mg PO BID 11/25/21 02/02/25 carboxymethylcellulose sodium 0.5 1 drp ophthalmic (eye) TID PRN Dry 03/12/22 02/02/25 % eye drops Eye(S) citalopram 40 mg tablet 40 mg PO DAILY 04/19/23 02/02/25 levetiracetam 1,000 mg tablet 750 mg PO BID 04/19/23 02/02/25 nitroglycerin 0.3 mg sublingual 0.3 mg sublingual Q5M 12/02/23 02/02/25 tablet topiramate 25 mg tablet 25 mg PO DAILY 01/07/25 02/02/25 Previous Rx's ?Medication ?Instructions ?Recorded diltiazem HCl 180 mg 180 mg PO DAILY #90 caps 10/23/24 capsule,extended release 24 hr isosorbide mononitrate 30 mg 30 mg PO DAILY #90 tabs 02/02/25 tablet,extended release 24 hr rivaroxaban 20 mg tablet (Xarelto) 20 mg PO QPM #90 tabs 04/26/25 doxycycline hyclate 100 mg tablet 100 mg PO BID 5 days #10 tabs 07/03/25 Allergies Allergy/AdvReac Type Severity Reaction Status Date / Time penicillin V Allergy Severe Hives Verified 07/03/25 08:31 piroxicam (PIROXICAM) Allergy Intermediate HIVES/SOB Verified 07/03/25 08:31 rofecoxib (From VIOXX) Allergy Intermediate HIVES/SOB Verified 07/03/25 08:31 Penicillins (PENICILLINS) Allergy Unknown UNKNOWN Verified 07/03/25 08:31 phenacetin (PHENACETIN) Allergy Unknown UNK Verified 07/03/25 08:31 From VICODIN Allergy Intermediate HIVES/SOB Uncoded 07/03/25 08:31 Review of Systems Review of Systems: Constitutional : No Fever, No Chills ENT/Mouth : No sore throat, No Rhinorrhea Eyes: No Eye Pain, No Swelling, No Redness Cardiovascular : + Chest Pain,+SOB Respiratory : + Cough, +Sputum Gastrointestinal : No Nausea, No Vomiting, No Diarrhea, No abdominal Pain Genitourinary : No Dysuria, No Hematuria Musculoskeletal : No joint pain, No Myalgias, No Joint Swelling Skin : No Skin Lesions Neuro : No Weakness, No Numbness, No Headache All other systems reviewed and are negative Yes all other systems are reviewed and are negative Constitutional: Constitutional: Reports as per [facility] Past Medical History Medical History Paroxysmal atrial fibrillation HTN (hypertension) CAD (coronary artery disease) Class 1 obesity Chronic anticoagulation CAD (coronary artery disease) Seizure disorder Surgical History History of left knee surgery History of right hip replacement History of ear surgery S/P skin biopsy Social History Social History Household Members: None Housing: House Do you presently have visiting nurse or other home services: No Alcohol intake: current Alcohol intake frequency: holidays/special occasions only Alcohol type: beer Comment: pt refusing bed alarm Patient Tobacco Use Status: Former Tobacco user Years Smoked: 30 +/- Advance Directives: No Advance Directives Information Provided: Yes service: No Physical Exam Vital Signs: Vital Signs: Last Vital Signs Temp 97.9 F 07/03/25 08:28 Pulse 78 07/03/25 10:00 Resp 18 07/03/25 10:00 BP 132/66 07/03/25 10:00 Pulse Ox 97 07/03/25 10:00 O2 Del Method Room Air 07/03/25 10:00 BMI result Body Mass Index 31.7 Const: General: cooperative, comfortable and no acute distress Orientation/consciousness: patient oriented x3 Limitations: no limitations HEENT: Head: Yes normal to inspection, Yes normocephalic and Yes atraumatic Ears: hearing grossly normal bilaterally General nose exam: Normal external nose present Face and sinus: Yes normal facial exam Mouth: Normal oral and palatal mucosa present, oropharynx normal and moist mucous membranes Throat: Yes posterior oropharynx normal Eyes: General: appearance normal, both eyes and all related structures Eyelids: Yes eyelids normal Conjunctivae: conjunctivae normal Sclerae: sclerae normal Pupils: Equal, round and reactive pupils present EOM: EOMs intact bilaterally Neck: Neck: Yes normal visual inspection, Yes full ROM and Yes no lymphadenopathy Lymphatic: no lymphadenopathy noted Chest: Chest palpation & inspection: normal inspection of the chest Resp: Effort & Inspection: normal respiratory effort and able to speak in complete sentences Auscultation: clear to auscultation bilaterally, no crackles, no rales, no rhonchi and no wheezes Cardio: Rate: regular rate Rhythm: regular rhythm Heart sounds: S1 normal heart sound present and S2 normal heart sound present GI: Inspection: Yes normal to inspection Skin: General skin exam: no rashes or lesions noted Trauma: no lacerations or abrasions Wounds: no wounds Neuro: General: patient oriented x3 and moves all extremities Cranial nerves: Yes Equal, round and reactive pupils present Extrem: Other: Mild tenderness palpation in the left calf, no profound pitting edema noted to bilateral lower extremities. General: Yes normal to inspection Right upper extremity: normal to inspection Left upper extremity: normal to inspection Right lower extremity: normal to inspection Left lower extremity: normal to inspection Medications Administered Discontinued Medications Generic Name Dose Route Start Last Admin Trade Name Freq PRN Reason Stop Dose Admin Iohexol 100 ml 07/03/25 12:51 07/03/25 12:51 Iohexol 350 Mg/Ml 100 Ml Infus..Btl IV 07/03/25 12:52 65 ml ONCE ONE Administration Medical Decision Making Medical Decision Making [facility] Narrative: This is a 84-year-old male with a history of atrial fibrillation on Xarelto, who presents emergency department with concerns of 1 week history of productive cough, chest pain, mild shortness for breath and new lower extremity edema. I did not appreciate any profound lower extremity edema. Lungs are clear to auscultation bilaterally. Vital signs within normal limits. He is speaking in full sentences under no acute distress. Differential diagnoses include viral URI, COVID, flu, RSV, ACS-unlikely. She has been compliant on Xarelto therefore PE unlikely - He is not tachycardic, hypoxic, and does not have worsening pain with deep breathing. Plan: labs, EKG, chest x-ray, ultrasound LLE BL 11:27 AM 07/03/2025 (Court Riley PA-C): Labs returned, no leukocytosis, microcytic anemia noted, similar to previous. Chemistry revealing no significant electrolyte derangement. Trop 3.2, no indication for repeat given no changes to EKG, and chest pain has been for the last week. Pro BNP 591.2 however given age, this is normal. Chest x-ray shows chronic interstitial lung disease. He has no acute airspace disease. patient did test positive for influenza A. 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 >> CT of the chest was obtained, revealing no evidence of PE. Dilated pulmonary arteries, main pulmonary artery measuring 3.8 cm. This is slightly increased from April 2024 exam questionable for pulmonary artery hypertension. advised to follow-up with PCP regarding this. Enlarged heart. Discussed findings with patient and family at bedside. Symptoms consistent with influenza. Given that his symptoms have been ongoing for the last week, he is out of the window for starting Tamiflu. Patient was given prescription for doxycycline given increased sputum, and history of smoking. Given strict return precautions, he is speaking full sentences, vital signs stable. At this time, he can be safely discharged with strict return precautions. 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 He understands and agrees with plan. Patient stable for discharge. Differential Diagnosis Differential Diagnoses: The differential diagnosis associated with the presentation includes See above Admission/Observation Consideration of admission/observation: Escalation of care including admission/observation considered Lab Data [facility] Lab Attestation statement: I reviewed the patient's lab results. see MDM 07/03/25 10:38 07/03/25 10:38 Labs: Lab Results 07/03/25 07/03/25 Range/Units 08:48 10:38 WBC 6.1 (4.8-10.8) X10*3/uL RBC 4.32 L (4.60-5.80) X10*6/uL Hgb 13.8 L (14.0-18.0) g/dl Hct 41.7 L (42.0-52.0) % MCV 96.5 (80.0-98.0) fL MCH 31.9 (27.0-33.0) pg MCHC 33.1 (31.0-36.0) g/dl RDW 14.6 (11.0-16.0) % Plt Count 146 L (160-400) X10*3/uL MPV 9.7 (9.4-12.4) fL Immature Gran % (Auto) 0.2 (0.0-0.4) % Neut % (Auto) 83.3 H (45-73) % Lymph % (Auto) 6.5 L (20-40) % [place] % (Auto) 8.1 (2-11) % Eos % (Auto) 1.6 (0-4) % Baso % (Auto) 0.3 (0-2) % Lymph # (Auto) 0.4 L (1.2-4.9) X10*3/uL [place] # (Auto) 0.5 (0.1-1.2) X10*3/uL Eos # (Auto) 0.1 (0.0-0.4) X10*3/uL Baso # (Auto) 0.0 (0.0-0.2) X10*3/uL Abs Immat Gran (auto) 0.01 (0.00-0.03) X10*3/uL Absolute Neuts (auto) 5.1 (2.0-8.3) x10*3/uL Absolute Nucleated RBC 0.000 (0.0-0.012) X10*3/uL Nucleated RBC % (auto) 0.0 (0.0-0.2) /100WBC Sodium 142 (135-145) mmol/L Potassium 3.7 (3.3-5.1) mmol/L Chloride 107 (96-108) mmol/L Carbon Dioxide 27 (22-29) mmol/L Anion Gap 12 (12-20) BUN 14 (9-16) mg/dL Creatinine 0.80 (0.5-1.4) mg/dL Estim Creat Clear Calc 79.1 Estimated GFR > 60 Random Glucose 91 (60-115) mg/dL Calcium 9.1 (8.4-10.2) mg/dL Magnesium 2.0 (1.6-2.6) mg/dL Total Bilirubin 0.7 (0.0-1.0) mg/dL Direct Bilirubin 0.3 (0.0-0.5) mg/dL AST 21 (5-37) U/L ALT 14 (0-40) U/L Alkaline Phosphatase 52 (39-117) U/L Troponin I High Sens 3.2 (<3.5-35.0) ng/L NT-Pro-B Natriuret Pep 591.2 H (<300) pg/mL Total Protein 6.8 (6.5-8.0) g/dL Albumin 4.3 (3.5-5.0) g/dL Influenza Type A (PCR) POSITIVE A (Negative) Influenza Type B (PCR) NEGATIVE (Negative) RSV RNA Qual (PCR) NEGATIVE (Negative) SARS-CoV-2 RNA (RT-PCR) NEGATIVE (Negative) Independent Interpretation I performed an independent interpretation of an: EKG Interpretation: EKG normal sinus rhythm with frequent PVCs, otherwise no ST-elevation or depression Radiology Impression Discussion of test interpretation with radiology: I have reviewed the radiologist's reading. Radiologist Impression: CHEST: THYROID: The thyroid gland is unremarkable. PULMONARY ARTERIES: No intraluminal filling defects are identified within the pulmonary arteries to suggest pulmonary emboli. Pulmonary arteries are enlarged. Main pulmonary artery measures 3.8 cm in diameter increased in size from 3.5 cm on 2023 exam. No evidence of right heart strain. No reflux of contrast into the liver. LUNGS: The lungs are clear. No consolidation or pulmonary edema. Mild bronchial wall thickening of both lower lobes. Central airways are clear. MEDIASTINUM: Small mediastinal lymph nodes. No enlarged lymph nodes. ANDRÉS: There is no hilar lymphadenopathy. CARDIOVASCULATURE: The heart is enlarged. There is no pericardial effusion. The thoracic aorta is normal in caliber. DEGREE OF CORONARY CALCIFICATION: mild PLEURA: There is no pleural effusion. No pneumothorax. MAIN AIRWAYS: The mainstem bronchi and proximal branches are patent. AXILLA: There is no axillary lymphadenopathy. UPPER ABDOMEN: Right renal cyst. Small calcification in the peripheral spleen. Fatty infiltration of the pancreas. Cholecystectomy. Diverticulosis of the colon. BONES AND SOFT TISSUES: Degenerative changes of the spine. CT/CT angio chest PE protocol IMPRESSION: No evidence of pulmonary emboli. Dilated pulmonary arteries, main pulmonary artery measuring 3.8 cm. This is slightly increased from April 2024 exam questionable for pulmonary artery hypertension. Enlarged heart. Electronically signed by: Herlinda Barraza MD 07/03/2025 01:17 PM [facility] Dictated By: Herlinda Barraza MD FINDINGS: Respiratory variation, normal compression and augmented flow are noted throughout the bilateral lower extremities. The visualized common femoral vein, superficial femoral vein, profunda femoral vein, popliteal vein and midcalf peroneal and posterior tibial venous segments show no evidence of deep venous thrombosis bilaterally. There is minimal echogenic material in the deep wall of the left mid femoral vein that is similar to slightly decreased compared with the prior. US/US venous duplex LE BI IMPRESSION: No evidence of acute deep venous thrombosis involving the bilateral lower extremities. 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 Chronic changes in the left common femoral vein are no longer demonstrated. Electronically signed by: Praveen Beckford MD 07/03/2025 11:19 AM [facility] Dictated By: Praveen Beckford MD Discharge Plan Discharge Clinical Impression: Influenza Patient Disposition: Home, Self-Care Instructions: Influenza (ED) Additional Instructions: You were seen in the emergency department in you tested positive for influenza A. Influenza a is a virus, which take several days up to several weeks for you to have symptomatic improvement. Please drink plenty of fluids and get plenty of rest. If you develop any fevers, you may take Tylenol. Given that you have had increased cough, and congestion any of multiple medical problems, I am placing you on antibiotics. Please take full course even if your symptoms improve. We obtained ultrasounds of your legs, you do have a stable to slightly improved chronic change from a remote thrombus in your left femoral vein. You can follow-up with Dr. Crawford, from vascular surgery in regards to this. you are already on anticoagulation therefore please continue taking this medication. We also obtain a CT scan of your chest. There is no evidence of a blood clot. You have evidence of an enlarged heart as well as a dilated pulmonary artery, this can be followed by your primary care physician. If you develop any new or worsening symptoms including but not limited to severe chest pain, shortness of breath, please seek emergent care. Prescriptions: New doxycycline hyclate 100 mg tablet 100 mg PO BID 5 Days Qty: 10 0RF No Action diltiazem HCl 180 mg capsule,extended release 24hr 180 mg PO DAILY Qty: 90 3RF Xarelto 20 mg tablet 20 mg PO QPM Qty: 90 3RF topiramate 25 mg tablet 25 mg PO DAILY albuterol sulfate 90 mcg/actuation HFA aerosol inhaler 2 puff inhalation Q4H PRN (Reason: wheezing) ascorbic acid (vitamin C) 500 mg capsule 500 mg PO DAILY tamsulosin 0.4 mg capsule 0.4 mg PO BID atorvastatin 20 mg tablet 20 mg PO DAILY carboxymethylcellulose sodium 0.5 % drops 1 drp ophthalmic (eye) TID PRN (Reason: Dry Eye(S)) levetiracetam 1,000 mg tablet 750 mg PO BID nitroglycerin 0.3 mg tablet, sublingual 0.3 mg sublingual Q5M isosorbide mononitrate 30 mg tablet extended release 24 hr 30 mg PO DAILY Qty: 90 0RF citalopram 40 mg tablet 40 mg PO DAILY Referrals: Wilfred Crawford MD [Physician, Vascular Surgery] Grabiel Kasper MD [Primary Care Provider, Family Practice] Discharge Date/Time: 07/03/25 14:13 Print Language: Liberian
[2025-07-03 09:51] LABS: Resp Syncy Virus RNA Qual PCR NEGATIVE (Negative); SARS COV2 PCR INHOUSE NEGATIVE (Negative)
--- NOTE | 2025-07-03 09:56 | ECG_ITS ---
Test Reason : chest pain Blood Pressure : */* mmHG Vent. Rate : 72 BPM Atrial Rate : 72 BPM P-R Int : 200 ms QRS Dur : 94 ms QT Int : 384 ms P-R-T Axes : 42 1 67 degrees QTcB Int : 420 ms Sinus rhythm with frequent Premature ventricular complexes Otherwise normal ECG When compared with ECG of 27-Jun-2025 14:22, Sinus rhythm has replaced Atrial fibrillation Referred By: Court Riley Electronically Signed By: Remington Johnson
[2025-07-03 10:00] VITALS: BP 132/66; PULSE 78; RESP 18; O2SAT 97
[2025-07-03 10:42] LABS: MANUAL DIFF FLAG NO
[2025-07-03 10:52] LABS: Hematocrit 41.7 % (42.0-52.0); Hemoglobin 13.8 g/dl (14.0-18.0); Imm Gran Abs Auto 0.01 X10*3/uL (0.00-0.03); Imm Gran Pct Auto 0.2 % (0.0-0.4); Lymphocytes Absolute Auto 0.4 X10*3/uL (1.2-4.9); Mean Corpuscular HGB Conc 33.1 g/dl (31.0-36.0); Mean Corpuscular Hemoglobin 31.9 pg (27.0-33.0); Mean Corpuscular Volume 96.5 fL (80.0-98.0); NRBC Abs Auto 0.000 X10*3/uL (0.0-0.012); NRBC Pct Auto 0.0 /100WBC (0.0-0.2); Platelet Count 146 X10*3/uL (160-400); Red Blood Count 4.32 X10*6/uL (4.60-5.80); White Blood Count 6.1 X10*3/uL (4.8-10.8)
[2025-07-03 11:00] LABS: Alanine Aminotransferase 14 U/L (0-40); Albumin Level 4.3 g/dL (3.5-5.0); Alkaline Phosphatase 52 U/L (39-117); Anion Gap 12 (12-20); Aspartate Amino Transferase 21 U/L (5-37); Blood Urea Nitrogen 14 mg/dL (9-16); Calcium 9.1 mg/dL (8.4-10.2); Carbon Dioxide 27 mmol/L (22-29); Chloride 107 mmol/L (96-108); Creatinine Clr Calc Pharmacy 79.1; Estimated Glomerular Filt Rate > 60; Magnesium 2.0 mg/dL (1.6-2.6); Potassium 3.7 mmol/L (3.3-5.1); Sodium 142 mmol/L (135-145); Total Protein 6.8 g/dL (6.5-8.0)
[2025-07-03 11:07] LABS: NT Pro B Type Natriuretic Pept 591.2 pg/mL (<300); Troponin-I High Sensitivity 3.2 ng/L (<3.5-35.0)
[2025-07-03] MEDS: iohexoL 350 MG/ML 100 ML INFUS..BTL IV (12:51)
== END 2025-07-03 14:13 | disposition home or self-care (01) ==
PROVIDERS: Physician Assistant Medical; Emergency Provider Emergency Medicine Emergency Medical Services; PCP Family Medicine
DX: J10.1 Influenza due to other identified influenza virus with other respiratory manifestations (principal); I10 Essential (primary) hypertension; I48.0 Paroxysmal atrial fibrillation; Z79.01 Long term (current) use of anticoagulants; G40.909 Epilepsy, unspecified, not intractable, without status epilepticus; Z87.891 Personal history of nicotine dependence; Z79.899 Other long term (current) drug therapy; Z03.818 Encounter for observation for suspected exposure to other biological agents ruled out
CPT/HCPCS: 36415; 71046; 71275; 80048; 80076; 83735; 83880; 84484; 85025; 87637; 93005; 93970; 99284; 99285; Q9967

== ENCOUNTER → 2025-07-03 08:31 | Outpatient (BNV) | payer OTHER, SELFPAY | PROVIDERS: PCP Family Medicine; Visit Provider Radiology Diagnostic Radiology | DX: I28.8 Other diseases of pulmonary vessels (principal); M79.661 Pain in right lower leg; M79.662 Pain in left lower leg; J84.9 Interstitial pulmonary disease, unspecified | CPT/HCPCS: 71046; 71275; 93970 ==

== ENCOUNTER → 2025-07-03 09:56 | Outpatient (BNV) | payer OTHER, SELFPAY | PROVIDERS: Emergency Provider Emergency Medicine Emergency Medical Services; PCP Family Medicine; Visit Provider Internal Medicine Cardiovascular Disease | DX: I49.3 Ventricular premature depolarization (principal) | CPT/HCPCS: 93010 ==

== ENCOUNTER 2025-07-10 05:46 | Emergency (ER) | payer OTHER, SELFPAY ==
--- OUTSIDE RECORDS SUMMARY | 2021-06-02 14:35 | XMS_ITS | Encounter Summary ---
Author Organization [facility] Address [address] [place] [phone] Phone Care Team Providers Care Authorization Nurse Name Role Phone Tona Hook MD Primary Care Provider + Encounter Details Date Type Department Care Team (Late st Contact Info) Description 06/02/2021 2:35 PM EST Hospital Encounter [facility] [address] [place] [phone] Jessi Davis PA [address] [phone] [email or web address] Social History Tobacco Use Types Packs/Day Years Used Date Smoking Tobacco: Former Smokeless Tobacco: Never Alcohol Use Standard Drinks/Week Comments Yes 2 (1 standard drink = 0.6 oz pur e alcohol) Occasional Education Answer Date Recorded Are you interested in more education? Not on ramone e 11/13/2022 Are you concerned about learning? Not on file 11/13/2022 No 11/13/2022 No 11/13/2022 Digital Access Answer Date Recorded No 12/12/2022 No 12/12/2022 No 12/12/2022 Reliable internet access at home? Not on file 12/12/2022 Device with a working camera? Not on file Sex and Gender Information Value Date Recorded Sex Assigned at Not on file Legal Sex Male 10:12 PM EDT Gender Identity Not on file Sexual Orientation Not on file documented as of this encounter Plan of Treatment Not on file documented as of this encounter Procedures Procedure Name Priority Date/Time Associated Diagnosis Comments XR CHEST PA AND LATERAL 2 VIEWS Urgent/patient waiting 06/02/2021 2:42 PM EST Acute bronchitis, unspecified organism documented in this encounter Results * XR CHEST PA AND LATERAL 2 VIEWS (06/02/2021 2:42 PM EST) Anatomical Region Laterality Modality Chest Computed Radiogr aphy 06/02/2021 2:49 PM EST Impressions 06/02/2021 2:50 PM EST No acute abnormality. Narrative 06/02/2021 2:50 PM EST Reason for exam (per EHR order): Cough; cough x 4 weeks, h/o copd TECHNIQUE: Frontal and lateral radiographs of the chest. COMPARISON: None. FINDINGS: Support Devices / Implants / Lines and Tubes: None. Lungs and Pleura: No focal consolidation, pulmonary edema, pleural effusion or pneumothorax. Cardiomediastinal Silhouette: Normal. Miscellaneous Findings: None. Procedure Note Harsha Hodge MD - 06/02/2021 Reason for exam (per EHR order): Cough; cough x 4 weeks, h/o copd TECHNIQUE: Frontal and lateral radiographs of the chest. COMPARISON: None. FINDINGS: Support Devices / Implants / Lines and Tubes: None. Lungs and Pleura: No focal consolidation, pulmonary edema, pleuraleffusion or pneumothorax. Cardiomediastinal Silhouette: Normal. Miscellaneous Findings: None. IMPRESSION: No acute abnormality. Jessi Davis PA IMG XR CHEST Final Result documented in this encounter Visit Diagnoses Not on filedocumented in this encounter Additional Health Concerns Infection Onset Date Last Indicated Resolved Time CoV-Risk 06/02/2021 06/02/2021 06/12/2021 1:24 AM EST CoV-Risk 06/16/2021 06/16/2021 06/26/2021 1:24 AM EST documented as of this encounter Care Teams Authorization Nurse Relationship Specialty Start Date End Date Tona Hook MD [address] [place] [address] PCP - General 05/04/17 05/27/23 documented as of this encounter Additional Source Comments The information contained in this document represents components of the legal health record. It is not the complete legal health record.[facility]
--- OUTSIDE RECORDS SUMMARY | 2024-05-05 08:00 | XMS_ITS | Encounter Summary ---
Author Organization [facility] [place] [address] Care Team Providers Care Care Professionals Name Role Phone Grabiel Kasper MD Primary Care Pr ovider Encounter Details Date Type Department Care Team (Late st Contact Info) Description 05/05/2024 9:00 AM EDT Hospital Encounter TH HISTORIC ENCOUNTERS EASTERN CONVERSION ONLY Grabiel Kasper MD [address] [place] [address] Social History Tobacco Use Types Packs/Day Years [...] 1:00 PM EST Office Visit Adult Medicine [address] [phone] Grabiel Kasper MD [address] [place] [address] 08/07/2025 9:45 AM EST Office Visit Orthopedic Surgery - [place] [address] [phone] aDnk Rose, DPM [address] [phone] documented as of this encounter Goals Goal Patient Goal Type Associated Problems Recent Progress Patient-Stated? Author No pain General Yes Lonnie Mackey, PT PT STG x 8 visits from [facility] 12/08/24 General No Lonnie Mackey, [...] from poor to fair PT STG Frome [facility] 12-08-24 General No Lonnie Mackey, [...] on filedocumented in this encounter Care Teams Care Professionals Relationship Specialty Start Date End Date Grabiel Kasper MD [address] [place], [place] PCP - General Internal Medicine 02/02/22 documented as of this encounter
--- OUTSIDE RECORDS SUMMARY | 2024-08-29 05:30 | XMS_ITS | Encounter Summary ---
Author Name [facility] [place] [facility] [place] [facility] [place] [facility] [place] Address [address] [place] [address] Care Team Providers Care Product Safety Technical Assistant Name Role Phone POLLY CLIFFORD Primary Care Provider Unavailabl radha Insurance Providers: All historical and current Section Date Range: From patient's date of to the date document was created. This section includes the names of all active insurance providers for the patient. Insurance Provider Type of Coverage Plan Name Start of Policy Coverage End of Policy Coverage Group Number Member ID Insurance Provider's Telephone Number Policy Cherry's Name Patient's Relationship to Policy Cherry [facility] (WNR) MEDICARE ADVANTAGE [facility] Jul 19, 2023 [id number] Rayne JACOBO PATIENT [employer] PRESCRIPT ION [id number] Jul 19, 2017 [id number] Rayne JACOBO PATIENT MEDICARE (WN) MEDICARE (M) PART A Sep 16, 2005 PART A [id number] Rayne JACOBO PATIENT MEDICARE (WN) MEDICARE () PART B Sep 16, 2005 PART B [id number] AVELINARSUKI SCHUMACHER SR PATIENT MEDICARE (WNR) MEDICARE (M) PART A Sep 16, 2005 PART A AVELINARSUKI SCHUMACHER SR PATIENT MEDICARE (WNR) MEDICARE (M) PART B Sep 16, 2005 PART B [id number] [phone] SUKI JACOBO SR PATIENT MEDICARE (WNR) MEDICARE (M) PART A Sep 16, 2005 PART A [id number] AVELINARSUKI SCHUMACHER SR PATIENT [employer] RX PRESCRIPT ION RX Jul 19, 2022 [id number] [phone] Rayne JACOBO PATIENT [employer] RX PRESCRIPT ION RX Jul 19, 2022 THPRX [id number] Rayne JACOBO PATIENT [employer] RX PRESCRIPT ION RX Jul 19, 2022 THPRX [id number] [phone] [facility] Jul 19, 2017 [id number] [phone] [id number] SCHUMACHER PATIENT ON LICENSE OF [facility] Jul 19, 2017 RUST [id number] Rayne JACOBO PATIENT [facility] Jul 19, 2017 [id number] Rayne JACOBO PATIENT [facility] Y Jul 21, 2013 (WNR) [id number] [phone] Rayne JACOBO PATIENT [facility](WN R) Jul 19, 2017 (WNR) [id number] Rayne JACOBO PATIENT Selected Encounter This section includes the information on record at [place] for the Encounter. Date/Time Encounter Type Encounter Description Reason Provider Source Aug 29, 2024 10:30 AM OFFICE O/P EST HI 40 MIN PRIMARY CARE/MEDICINE ICD-10-CM J44.9 Chronic obstructive pulmonary disease, unspecified FURCOLO,POLLY IHE Encounter Template Text not used by [place] Assessments - Encounter Diagnoses This section includes the primary and secondary diagnoses documented for the Encounter. Date/Time Primary/Secondary Diagnosis Diagnosis Name Provider Source Aug 29, 2024 11:23 AM PRIMARY Chronic obstructive pulmonary disease, unspecified FURCOLO,POLLY [facility] [place] [facility] Aug 29, 2024 11:23 AM SECONDARY Benign prostatic hyperplasia without lower urinry tract symp FURCOLO,POLLY [facility] [place] [facility] Aug 29, 2024 11:23 AM SECONDARY Chronic atrial fibrillation, unspecified FURCOLO,POLLY [facility] [place] [facility] Aug 29, 2024 11:23 AM SECONDARY Chronic hepatitis, unspecified FURCOLO,POLLY [facility] [place] [facility] Aug 29, 2024 11:23 AM SECONDARY Cyst of kidney, acquired FURCOLO,POLLY [facility] [place] [facility] Aug 29, 2024 11:23 AM SECONDARY Essential (primary) hypertension FURCOLO,POLLY [facility] [place] [facility] Aug 29, 2024 11:23 AM SECONDARY Local-rel symptc epi w simp prt seiz,not ntrct, w/o stat epi FURCOLO,POLLY [facility] [place] [facility] Aug 29, 2024 11:23 AM SECONDARY Mild cognitive impairment of uncertain or unknown etiology FURCOLO,POLLY [facility] [place] [facility] Aug 29, 2024 11:23 AM SECONDARY Polyneuropathy due to other toxic agents FURCOLO,POLLY [facility] [place] [facility] Aug 29, 2024 11:23 AM SECONDARY Radiculopathy, lumbar region FURCOLO,POLLY [facility] [place] [facility] Aug 29, 2024 11:23 AM SECONDARY Sleep apnea, unspecified FURCOLO,POLLY [facility] [place] [facility] Plan of Treatment: Future Appointments (+ 6 months) and Future Tests (+/- 45 days) The Plan of Treatment section includes future care activities for the patient [facility] [place] [facility] This section includes future appointments and future orders which are active, pending or scheduled. Future Appointments This section includes appointments that were scheduled to occur 6 months from the date of the Encounter, up to a maximum of 20 appointments. The data comes from all [place] treatment facilities. Appointment Date/Time Appointment Type Appointme nt Facility Name Sep 08, 2024 08:30 AM AMBULATORY - MEDICINE [place] [facility] [place] [facility] Sep 08, 2024 09:00 AM AMBULATORY - MEDICINE [place] [facility] [place] [facility] Sep 19, 2024 01:30 PM AMBULATORY - REHAB MEDICIN E [facility] [place] [facility] Sep 25, 2024 02:00 PM AMBULATORY - REHAB MEDICIN E [facility] [place] [facility] Oct 02, 2024 01:00 PM AMBULATORY - MEDICINE [place] [facility] [place] [facility] Oct 02, 2024 02:00 PM AMBULATORY - REHAB MEDICIN E [facility] [place] [facility] 2024 09:00 AM AMBULATORY - REHAB MEDICIN E [facility] [place] [facility] November 29, 2024 11:00 AM AMBULATORY - REHAB MEDICIN E [facility] [place] [facility] December 14, 2024 01:00 PM AMBULATORY - MEDICINE [place] [facility] [place] [facility] Dec 26, 2024 10:00 AM AMBULATORY - REHAB MEDICIN E [facility] [place] [facility] Feb 06, 2025 02:00 PM AMBULATORY - REHAB MEDICIN E [place] [facility] [place] [facility] Vital Signs: All taken on the encounter date This section contains inpatient and outpatient Vital Signs collected on the date of the Encounter. Date/Time Temperature Pulse Blood Pressure Respiratory Rate SP02 Pain Height Weight Body Mass Index Source Aug 29, 2024 10:47 AM 98.4 56 133/71 16 96 0 220 33 [place] [facility] [place] [facility] Social History: Smoking Status (Most current) and Tobacco Use (All prior to encounter date) This section includes the most current, and the historical, smoking and tobacco- related health factors from the [place] facility where the Encounter took place. Current Smoking Status This section includes the most current smoking, or tobacco-related health factor, from the [place] facility where the Encounter took place. Date/Time Current Smoking Status Comment Ramon aguayoy Oct 29, 2023 06:12 PM VA-TOBACCO FORMER USER [facility] Tobacco Use History This section includes a history of the smoking, or tobacco-related health factors, that were collected on or before the date of the Encounter. The data comes from the [place] facility where the Encounter took place. Date/Time Smoking Status/Tobacco Use Comment Prashanth accecile Oct 29, 2023 06:12 PM VA-TOBACCO QUIT [facility] Aug 23, 2019 09:07 AM [facility]AC[facility] Aug 23, 2019 09:07 AM VA-TOBACCO QUIT 15 YRS OR MORE [facility] Jun 28, 2018 10:50 AM VA-TOBACCO FORMER USER [facility] Jun 28, 2018 10:50 AM VA-TOBACCO QUIT 15 YRS OR [facility] [place] [facility] Oct 14, 2017 09:20 AM QUIT TOBACCO USE > 7 YEARS AGO [facility] Oct 05, 2016 01:02 PM QUIT TOBACCO USE > 7 YEARS AGO [facility] Advance Directives: All historical and current Section Date Range: From patient's date of to the date document was created. This section includes ALL of a patient's completed or amended [place] Advance and Rescinded Directives. The entries below indicate that a directive exists for the patient, but an actual copy is not included with this document. The data comes from all [place] facilities. Date Advance Directives Provider Source Nov 16, 2023 ADVANCE DIRECTIVE MARC METZGER [facility] Encounter Notes: All associated encounter notes This section contains the clinical notes associated to the Encounter. Date/Time Encounter Note(s) Provider Source Aug 29, 2024 12:14 PM CLINICAL WARNING: LOCAL TITLE: COMMUNICATION AUTHORIZATION STANDARD TITLE: CLINICAL WARNING DATE OF NOTE: AUG 29, 2024@12:14 ENTRY DATE: AUG 29, 2024@12:14:37 AUTHOR: DOMENICA,MARC EXP COSIGNER: URGENCY: STATUS: COMPLETED Family/Caregiver Name: Primary: Linden Pardo Secondary: Tertiary: Authorized Clinic & Topics: All Clinic's & Topics: All Care/Coordination, Scheduling Appointments, Prescriptions, Test Results Primary Care: All Care/Coordination, Scheduling Appointments, Prescriptions, Test Results Mental Health: All Care/Coordination, Scheduling Appointments, Prescriptions, Test Results Specialty Care: All Care/Coordination, Scheduling Appointments, Prescriptions, Test Results I reeust and authorize Departnt of [employer] to release the information specified below to the organization, or indiviual named on this reqeust. I understand that the infomation to be released inclused information regardign the following conditon(s) [X] Drug Abuse [X] Alcohol Abuse [X] HIV [X] Sickle Cell Expiration: Date: [X] At [ ] Through [ ] At end of care // MARC METZGER LPN License Practical Nurse Signed: 08/29/2024 12:17 MARC METZGER [place] [facility] Aug 29, 2024 11:00 AM PHYSICIAN NOTE: LOCAL TITLE: MD NOTE STANDARD TITLE: PHYSICIAN NOTE DATE OF NOTE: AUG 29, 2024@11:00 ENTRY DATE: AUG 29, 2024@11:00:16 AUTHOR: POLLY CLIFFORD EXP COSIGNER: URGENCY: STATUS: COMPLETED LEONARDO JACOBO is a 83 year old WHITE MALE who is being seen today in primary care for ER f/u of chest pain CARE TEAM Community Primary Care Provider: Brenda Bowens [place] Specialists: Community Specialists: cardiology Dr. Giron [facility] neurology- Dr[facility] Eduardo [facility] HISTORY PERIOD OF SERVICE - [place] [facility] CONNECTED % - [place], ad operations coordinator marixa, air control, [phone] HISTORY OF PRESENT ILLNESS Patient presents today for to ER follow-up of chest pain RELEVANT PAST MEDICAL HISTORY Active problems - Computerized Problem List is the source for the followin. Chronic obstructive pulmonary disease sees [facility] clean room technician 2. Benign Prostatic Hypertrophy without Outflow Obstruction (SCT [id number]) 3. Lumbosacral radiculopathy 4. Multiple renal cysts [...] trauma/fall 10. Atrial fibrillation [facility] 11. Seizure disorder nonconvulsive seizures. on [facility], sees Dr. Son 12. Cerebral atrophy no h/o head injury 13. 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 no longer drives. daughter manages all his finances now. does all ADLs independently. ALLERGIES VICODIN, CODEINE, PIROXICAM, HYDROCODONE MEDICATIONS Active [...] BY MOUTH ONCE ACTIVE DAILY 10) Non-VA [id number] 30D INH 1 ACTIVE INHALATION BY MOUTH ONCE DAILY 13 Total Medications REVIEW OF SYMPTOMS POSITIVE FOR: occasioanl chest pain NEGATIVE FOR: CONSTITUTION: no weight loss/gain, fatigue, [...] - - - - - - B/P: 133/71 (08/29/2024 10:47) pulse: 56 (08/29/2024 10:47) resp: 16 (08/29/2024 10:47) temp: 98.4 F [36.9 C] (08/29/2024 10:47) Ht: 69 in [175.3 cm] (11/16/2023 11:00) Wgt: 220 lb [99.79 kg] (08/29/2024 10:47) BMI: BMI: 32.6 Exam: - - - - - - - RRR S1 S2 LCTA bilat some LE edema RECENT LABS FROM [facility]: White Blood Count August 02, 2024 9:59am 5.8 10*3/uL 4.8-10.8 Red Blood Count August 02, 2024 9:59am 4.12 10*6/uL 4.60-5.80 Hemoglobin August 02, 2024 9:59am 13.4 g/dL 14.0-18.0 Hematocrit August 02, 2024 9:59am 38.9 % 42.0-52.0 Mean Corpuscular Volume August 02, 2024 9:59am 94.4 fL 80.0-98.0 Mean Corpuscular Hemoglobin August 02, 2024 9:59am 32.5 pg 27.0-33.0 Mean Corpuscular Hemoglobin Concent August 02, 2024 9:59am 34.4 g/dL 31.0-36.0 Red Cell Distribution Width August 02, 2024 9:59am 13.5 % 11.0-16.0 Platelet Count August 02, 2024 9:59am 168 10*3/uL 160-400 Mean Platelet Volume August 02, 2024 9:59am 9.5 fL 9.4-12.4 Neutrophils (%) (Auto) August 02, 2024 9:59am 73.5 % 45-73 Immature Granulocyte % (Auto) August 02, 2024 9:59am 0.3 % 0.0-0.4 Lymphocytes (%) (Auto) August 02, 2024 9:59am 15.4 % 20-40 Monocytes (%) (Auto) August 02, 2024 9:59am 7.0 % 2-11 Eosinophils (%) (Auto) August 02, 2024 9:59am 3.1 % 0-4 Basophils (%) (Auto) August 02, 2024 9:59am 0.7 % 0-2 Nucleated Red Blood Cells % (auto) August 02, 2024 9:59am 0.0 /100{WBC} 0.0-0.2 Absolute Neutrophils (auto) August 02, 2024 9:59am 4.3 10*3/uL 2.0-8.3 Absolute Immature Granulocyte (auto August 02, 2024 9:59am 0.02 10* 3/uL 0.00-0.03 Lymphocytes # (Auto) August 02, 2024 9:59am 0.9 10*3/uL 1.2-4.9 Monocytes # (Auto) August 02, 2024 9:59am 0.4 10*3/uL 0.1-1.2 Eosinophils # (Auto) August 02, 2024 9:59am 0.2 10*3/uL 0.0-0.4 Basophils # (Auto) August 02, 2024 9:59am 0.0 10*3/uL 0.0-0.2 Nucleated RBC Absolute Count (auto) August 02, 2024 9:59am 0.000 10 *3/uL 0.0-0.012 Urine Color August 02, 2024 10:28am Yellow Urine Appearance August 02, 2024 10:28am Clear Urine pH August 02, 2024 10:28am 5.5 5.0-9.0 Urine Glucose (UA) August 02, 2024 10:28am Negative mg/dL Negative Urine Blood August 02, 2024 10:28am Negative Negative Urine Specific [place] August 02, 2024 10:28am 1.010 1.005-1.025 Urine Protein August 02, 2024 10:28am Negative mg/dL Neg- Trace Urine Ketones August 02, 2024 10:28am Negative mg/dL Negative Urine Nitrite August 02, 2024 10:28am Negative Negative Urine Leukocyte Esterase August 02, 2024 10:28am Negative Negative Sodium Level August 02, 2024 9:59am 142 mmol/L 135-145 Potassium Level August 02, 2024 9:59am 3.9 mmol/L 3.3-5.1 Chloride Level August 02, 2024 9:59am 109 mmol/L 96-108 Carbon Dioxide Level August 02, 2024 9:59am 28 mmol/L 22-29 Anion Gap August 02, 2024 9:59am 9 12-20 Blood Urea Nitrogen August 02, 2024 9:59am 19 mg/dL 9-16 Creatinine August 02, 2024 9:59am 0.81 mg/dL 0.5-1.4 Estimated Creatinine Clearance Calc August 02, 2024 9:59am 80.4 Estimat Glomerular Filtration Rate August 02, 2024 9:59am > 60 Random Glucose August 02, 2024 9:59am 114 mg/dL 60-115 Calcium Level August 02, 2024 9:59am 8.8 mg/dL 8.4-10.2 Total Bilirubin August 02, 2024 9:59am 0.4 mg/dL 0.0-1.0 Aspartate Amino Transf (AST/SGOT) August 02, 2024 9:59am 21 uL 5-37 Alanine Aminotransferase (ALT/SGPT) August 02, 2024 9:59am 15 uL 0-40 Troponin I High Sensitivity August 02, 2024 1:23pm 3.4 ng/L 0.0-35.0 B-Type Natriuretic Peptide August 02, 2024 9:59am 135 pg/mL <100 Total Protein August 02, 2024 9:59am 6.7 g/dL 6.5-8.0 Albumin August 02, 2024 9:59am 3.9 g/dL 3.5-5.0 Alkaline Phosphatase August 02, 2024 9:59am 56 uL 39-117 EXAMINATION: XR CHEST CLINICAL INFORMATION: left sided chest pain COMPARISON: 04/10/2024, 12/15/2023. TECHNIQUE: 2 views of the chest were obtained. FINDINGS: Mildly elevated left hemidiaphragm. The cardiac, hilar, and mediastinal contours are normal. Aorta is mildly calcified but normal in contour. Diffuse pulmonary hyperaeration. Minimal left base scarring. The lungs are otherwise clear bilaterally. There is no pneumothorax or pleural effusion. There is no focal osseous or soft tissue abnormality. Degenerative changes in the spine and both shoulder joints. XR/XR chest 2V IMPRESSION: No active pulmonary disease. ASSESSMENT AND PLAN Active problems - Computerized Problem List is the source for the followin. Chronic obstructive pulmonary disease sees [facility] clean room technician 2. Benign Prostatic Hypertrophy without Outflow Obstruction ([facility] [id number]) 3. Lumbosacral radiculopathy 4. Multiple renal cysts [...] trauma/fall 10. Atrial fibrillation xarelto. cardiology Dr. Giron [facility]. h/o cardioversion. on xarelto- no falls 11. Seizure disorder nonconvulsive seizures. on keppra, sees Dr. Son 12. Cerebral atrophy no h/o head injury 13. 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. lives independently- daughter nearby. no longer drives. daughter did take over finances. he is able todo all his ADLs independently FOLLOW UP f/u in 1 year VISIT TYPE: a HIGH complexity visit where over 60 minutes was spent in direct patient care, review of records and documentation. /alba/ POLLY CLIFFORD D.O. PHYSICIAN Signed: 08/29/2024 11:23 POLLY CLIFFORD [facility] Aug 29, 2024 10:53 AM PREVENTIVE MEDICINE NURSING NOTE: LOCAL TITLE: CLINICAL REMINDERS/NURSING STANDARD TITLE: PREVENTIVE MEDICINE NURSING NOTE DATE OF NOTE: AUG 29, 2024@10:53 ENTRY DATE: AUG 29, 2024@10:53:17 AUTHOR: MARC METZGER EXP COSIGNER: URGENCY: STATUS: COMPLETED Influenza Immunization: The patient has received the seasonal influenza vaccine for the current season at another location. Documented: INFLUENZA, UNSPECIFIED FORMULATION Historical Date Administered: May 28, 2024 Series: Complete Outside Location: Outside Healthcare Provider Information Source: FROM PATIENT'S RECALL /filippo METZGER LPN License Practical Nurse Signed: 08/29/2024 10:53 MARC METZGER [facility]
--- OUTSIDE RECORDS SUMMARY | 2024-09-08 04:00 | XMS_ITS | Encounter Summary ---
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 Name Role Phone POLLY CLIFFORD [...] Name Patient's Relationship to Policy Cherry [facility] (WNR) MEDICARE ADVANTAGE [facility] ([facility]) Jul 19, 2023 [id number] Rayne JACOBO PATIENT [facility] PRESCRIPT ION [id number] Jul 19, 2017 [id number] [phone] Rayne JACOBO PATIENT MEDICARE (WN) MEDICARE (M) PART A Sep 16, 2005 PART A [id number] Rayne JACOBO PATIENT MEDICARE (WN) MEDICARE () PART B Sep 16, 2005 PART B [id number] AVELINARSUKI SCHUMACHER SR PATIENT MEDICARE (WNR) MEDICARE (M) PART A Sep 16, 2005 PART A AVELINARSUKI SCHUMACHER SR PATIENT MEDICARE (WNR) MEDICARE (M) PART B Sep 16, 2005 PART B [id number] SUKI JACOBO SR PATIENT MEDICARE (WNR) MEDICARE (M) PART A Sep 16, 2005 PART A [id number] AVELINARSUKI SCHUMACHER SR PATIENT [facility] RX PRESCRIPT ION RX Jul 19, 2022 [id number] Rayne JACOBO PATIENT [facility] RX PRESCRIPT ION RX Jul 19, 2022 THPRX [id number] Rayne JACOBO PATIENT [facility] RX PRESCRIPT ION RX Jul 19, 2022 THPRX [id number] [phone] Rayne JACOBO PATIENT [facility] Jul 19, 2017 [id number] YULIZAHRAJOSE MIGUELRayne PATIENT [facility] REYNA Moya Jul 19, 2017 [id number] [phone] Rayne JACOBO PATIENT [facility] Jul 19, 2017 [facility] [id number] Rayne JACOBO PATIENT [facility] Jul 21, 2013 (WNR) [id number] AVELINASiddharthaRayne SCHUMACHER PATIENT [facility] ([facility]) [facility](WN R) Jul 19, 2017 (WNR) [id number] [phone] Rayne JACOBO PATIENT Selected Encounter This section includes the information on record at CT for the Encounter. Date/Time Encounter Type Encounter Description Reason Provider Source Sep 08, 2024 09:00 AM OFFICE O/P EST MOD 30 MIN PRIMARY CARE/MEDICINE ICD-10-CM M23.92 Unspecified internal derangement of left knee ZHANNA WAGNER [facility] Encounter Template Text not used by CT Assessments - Encounter Diagnoses This section includes the primary and secondary diagnoses documented for the Encounter. Date/Time Primary/Secondary Diagnosis Diagnosis Name Provider Source Sep 08, 2024 10:17 AM PRIMARY Unspecified internal derangement of left knee ZHANNA WAGNER [facility] [place] [facility] Plan of Treatment: Future Appointments (+ 6 months) and Future Tests (+/- 45 days) The Plan of Treatment section includes future care activities for the [facility] This section includes future appointments and future orders which are active, pending or scheduled. Future Appointments This section includes appointments that were scheduled to occur 6 months from the date of the Encounter, up to a maximum of 20 appointments. The data comes from all CT treatment facilities. Appointment Date/Time Appointment Type Appointme nt Facility Name Sep 19, 2024 01:30 PM AMBULATORY - REHAB MEDICIN E [facility] [place] [facility] Sep 25, 2024 02:00 PM AMBULATORY - REHAB MEDICIN E [facility] [place] [facility] Oct 02, 2024 01:00 PM AMBULATORY - MEDICINE CT [facility] [place] [facility] Oct 02, 2024 02:00 PM AMBULATORY - REHAB MEDICIN E [facility] [place] [facility] 2024 09:00 AM AMBULATORY - REHAB MEDICIN E [facility] [place] [facility] November 29, 2024 11:00 AM AMBULATORY - REHAB MEDICIN E [facility] [place] [facility] December 14, 2024 01:00 PM AMBULATORY - MEDICINE [facility] [place] [facility] Dec 26, 2024 10:00 AM AMBULATORY - REHAB MEDICIN E [facility] [place] [facility] Feb 06, 2025 02:00 PM AMBULATORY - REHAB MEDICIN E [facility] [place] [facility] Vital Signs: All taken on the encounter date This section contains inpatient and outpatient Vital Signs collected on the date of the Encounter. Date/Time Temperature Pulse Blood Pressure Respiratory Rate SP02 Pain Height Weight Body Mass Index Source Sep 08, 2024 09:12 AM 98.1 61 129/55 18 96 [facility] Social History: Smoking Status (Most current) [...] 29, 2023 06:12 PM VA-TOBACCO FORMER USER [facility] Tobacco Use History This section includes a history of the smoking, or tobacco-related health factors, that were collected on or before the date of the Encounter. The data comes from the CT facility where the Encounter took place. Date/Time Smoking Status/Tobacco Use Comment F accecile Oct 29, 2023 06:12 PM [facility]RS [facility] Aug 23, 2019 09:07 AM [facility]AC[facility] Aug 23, 2019 09:07 AM VA-TOBACCO QUIT 15 YRS OR MORE [facility] Jun 28, 2018 10:50 AM [facility]AC[facility] Jun 28, 2018 10:50 AM VA-TOBACCO QUIT 15 YRS OR MORE [facility] Oct 14, 2017 09:20 AM QUIT TOBACCO USE > 7 YEARS AGO [facility] Oct 05, 2016 01:02 PM QUIT TOBACCO USE > 7 YEARS AGO [facility] Advance Directives: All historical and current Section [...] Nov 16, 2023 ADVANCE DIRECTIVE MARC METZGER [facility] Encounter Notes: All associated encounter notes This section contains the clinical notes associated to the Encounter. Date/Time Encounter Note(s) Provider Source Sep 12, 2024 08:35 AM ADDENDUM: LOCAL TITLE: Addendum STANDARD TITLE: ADDENDUM DATE OF NOTE: SEP 12, 2024@08:35:15 ENTRY DATE: SEP 12, 2024@08:35:16 AUTHOR: LEONARDO BOWLES COSIGNER: URGENCY: STATUS: COMPLETED Followed up with [place] and daughter Linden via tele. They state there has been improvement with the brace and tylenol but still recovering, not back to baseline. They haven't been able to take tylenol three times per day because the vet goes to bed at 5:30 pm. They are requesting PT Consult in [place]. Daughter Linden can drive to the sessions. Forward to PCP, please enter [facility] PT consult as requested. Thank you! /alba/ LEONARDO BOWLES Registered Nurse Signed: 09/12/2024 08:40 Receipt Acknowledged By: 09/12/2024 09:30 /alba/ POLLY CLIFFORD D.O. PHYSICIAN === --- Original Document --- 09/08/24 FEMI NOTE: SICK CALL VISIT HPI: 83-year-old male with below noted past medical history presents with daughter regarding left knee pain. is requesting a knee support. There is been swelling. He does endorse clicking and buckling. There has been no locking of the joint. He has a remote history of meniscal arthroscopy approximately 30 years ago. Denies any acute injury. There is been no erythema. No edema of the lower extremity. REVIEW OF SYSTEMS: A 12 point review of systems is negative except as noted in the HPI. Active Medical Problems: Active Problem Chronic obstructive pulmonary disea 11/16/2023 FURCOLO,POLLY Benign Prostatic Hypertrophy withou 08/01/2021 [place] [facility] Lumbosacral radiculopathy M54.16 06/15/2017 [facility] GREEN Multiple renal cysts N28.1 04/14/2017 [place] [facility]WS Benign essential hypertension I10. 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 10/05/2016 [place] Cognitive disorder G31.84 12/15/2016 [place]EN Meds: Active Outpatient Medications (including Supplies): EYELID CLEANSER,EYE SCRUB PAD USE 1 PAD TOPICALLY ONCE ACTIVE DAILY Indication: BLEPHARITIS KETOTIFEN 0.025% OPH SOLN INSTILL 1 DROP INTO EACH EYE ACTIVE EVERY 12 HOURS (IF YOU WEAR CONTACT LENSES, WAIT 10 MINUTES BEFORE INSERTING LENSES) Indication: FOR ALLERGIC CONJUNCTIVITIS PEG 400 0.4%/PROP GLYCOL 0.3% OPH SOLN INSTILL 1 DROP INTO ACTIVE EACH EYE FOUR TIMES A DAY Indication: FOR DRY EYE PREDNISOLONE ACETATE 1% OPH SUSP INSTILL 1 DROP INTO EACH ACTIVE EYE TWICE DAILY SHAKE WELL BEFORE USING Indication: INFLAMMATORY DRY EYE Non-VA ACETAMINOPHEN 500MG TAB 500MG BY MOUTH TWICE DAILY ACTIVE Non-VA ALBUTEROL 90MCG (CFC-F) 200D ORAL INHL 2 PUFFS BY ACTIVE MOUTH EVERY 4 HOURS NEEDED Non-VA ATORVASTATIN CALCIUM 40MG TAB 20MG BY MOUTH AT ACTIVE BEDTIME Indication: FOR HIGH CHOLESTEROL Non-VA CITALOPRAM HYDROBROMIDE 40MG TAB 40MG BY MOUTH ONCE ACTIVE DAILY Indication: FOR MAJOR DEPRESSIVE DISORDER Non-VA DILTIAZEM HCL 90MG 12HR SA CAP 180MG BY MOUTH DAILY ACTIVE Non-VA FUROSEMIDE 20MG TAB 20MG BY MOUTH ONCE DAILY ACTIVE NEEDED Non-VA LEVETIRACETAM 500MG TAB 1000MG BY MOUTH TWICE DAILY ACTIVE Non-VA MULTIVITAMIN CAP/TAB 1 TABLET BY MOUTH DAILY ACTIVE Non-VA NITROGLYCERIN 0.4MG SL TAB 0.4MG UNDER THE TONGUE ACTIVE EVERY 5 MINUTES NEEDED Indication: FOR ACUTE CHEST PAIN Non-VA PSYLLIUM ORAL PWD 1 TEASPOONFUL BY MOUTH ONCE DAILY ACTIVE Non-VA RIVAROXABAN 20MG TAB 20MG BY MOUTH DAILY ACTIVE Non-VA SENNOSIDES 8.6MG TAB 8.6MG BY MOUTH ONCE DAILY ACTIVE Indication: FOR CONSTIPATION Non-VA TAMSULOSIN HCL 0.4MG CAP 0.4MG BY MOUTH ONCE DAILY ACTIVE Non-VA [id number]/VILANTER [id number] 30D INH 1 ACTIVE INHALATION BY MOUTH ONCE DAILY 18 Total Medications Allergies: VICODIN, CODEINE, PIROXICAM, HYDROCODONE Date Vital Measurement Qualifiers 09/08/2024 09:12 Temp F (C) 98.1 (36.7) Pulse 61 Respir 18 BP 129/55 POx (L/Min)(%) 96 At Rest FOCUSED EXAMINATION GEN: Well-developed elderly male seated in exam chair in no acute distress Vascular: Pulses intact left lower extremity Neuro: sensation is intact MSK: Full range of motion of the joints with [place] able to extend and hold as well as flex. There is no erythema. No excess warmth. Mild soft tissue swelling. No fluid wave. Negative ballottement. Mild crepitus palpable. Negative laxity with anterior posterior draw or valgus/varus stress. MDM: No clinical evidence of acute neurovascular, neurosensory or gross functional deficit at this time. [place] was placed in a hinged knee support brace with improved pain and sense of stability. He will continue with Tylenol 3 times daily as previously instructed. Applications of OTC mentholated ointments ad santiago. Follow-up with PCP for any PT consult at her discretion. RTC as needed. Defer x-ray at this time as index for yield is extremely low. ASSESSMENT/PLAN Internal derangement left knee As above On this date of the encounter, I spent 30 minutes on some or all of the following: chart review, history, physical examination, treatment planning, education and counseling of the patient/family/care information associate, placing orders, communicating with other health care providers and documentation in the electronic health record. able to verbalize understanding of plan of care and agrees. >> MEDICATIONS Reviewed and reconciled with [place] /alba/ ZHANNA SARGENT MS,[facility] PHYSICIAN CHAIN BUILDER LOOM CONTROL Signed: 09/08/2024 10:17 Receipt Acknowledged By: 09/08/2024 10:54 /alba/ POLLY CLIFFORD D.O. PHYSICIAN 09/12/2024 08:51 /es/ LEONARDO BOWLES Registered Nurse LEONARDO BOWLES [facility] [place] [facility] Sep 08, 2024 09:50 AM PHYSICIAN CHAIN BUILDER LOOM CONTROL NOTE: LOCAL TITLE: FEMI NOTE STANDARD TITLE: PHYSICIAN CHAIN BUILDER LOOM CONTROL NOTE DATE OF NOTE: SEP 08, 2024@09:50 ENTRY DATE: SEP 08, 2024@09:50:54 AUTHOR: ZHANNA WAGNER EXP COSIGNER: URGENCY: STATUS: COMPLETED FEMI NOTE Has ADDENDA SICK CALL VISIT HPI: 83-year-old male with below noted past medical history presents with daughter regarding left knee pain. is requesting a knee support. There is been swelling. He does endorse clicking and buckling. There has been no locking of the joint. He has a remote history of meniscal arthroscopy approximately 30 years ago. Denies any acute injury. There is been no erythema. No edema of the lower extremity. REVIEW OF SYSTEMS: A 12 point review of systems is negative except as noted in the HPI. Active Medical Problems: Active Problem Chronic obstructive pulmonary disea 11/16/2023 POLLY CLIFFORD Benign Prostatic Hypertrophy withou 08/01/2021 [place] Lumbosacral radiculopathy M54.16 06/15/2017 [place] GRE[place] Multiple renal cysts N28.1 04/14/2017 [place] Benign essential hypertension I10. 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 10/05/2016 [place] Cognitive disorder G31.84 12/15/2016 [place] Meds: Active Outpatient Medications (including Supplies): EYELID CLEANSER,EYE SCRUB PAD USE 1 PAD TOPICALLY ONCE ACTIVE DAILY Indication: BLEPHARITIS KETOTIFEN 0.025% OPH SOLN INSTILL 1 DROP INTO EACH EYE ACTIVE EVERY 12 HOURS (IF YOU WEAR CONTACT LENSES, WAIT 10 MINUTES BEFORE INSERTING LENSES) Indication: FOR ALLERGIC CONJUNCTIVITIS PEG 400 0.4%/PROP GLYCOL 0.3% OPH SOLN INSTILL 1 DROP INTO ACTIVE EACH EYE FOUR TIMES A DAY Indication: FOR DRY EYE PREDNISOLONE ACETATE 1% OPH SUSP INSTILL 1 DROP INTO EACH ACTIVE EYE TWICE DAILY SHAKE WELL BEFORE USING Indication: INFLAMMATORY DRY EYE Non-VA ACETAMINOPHEN 500MG TAB 500MG BY MOUTH TWICE DAILY ACTIVE Non-VA ALBUTEROL 90MCG (CFC-F) 200D ORAL INHL 2 PUFFS BY ACTIVE MOUTH EVERY 4 HOURS NEEDED Non-VA ATORVASTATIN CALCIUM 40MG TAB 20MG BY MOUTH AT ACTIVE BEDTIME Indication: FOR HIGH CHOLESTEROL Non-VA CITALOPRAM HYDROBROMIDE 40MG TAB 40MG BY MOUTH ONCE ACTIVE DAILY Indication: FOR MAJOR DEPRESSIVE DISORDER Non-VA DILTIAZEM HCL 90MG 12HR SA CAP 180MG BY MOUTH DAILY ACTIVE Non-VA FUROSEMIDE 20MG TAB 20MG BY MOUTH ONCE DAILY ACTIVE NEEDED Non-VA LEVETIRACETAM 500MG TAB 1000MG BY MOUTH TWICE DAILY ACTIVE Non-VA MULTIVITAMIN CAP/TAB 1 TABLET BY MOUTH DAILY ACTIVE Non-VA NITROGLYCERIN 0.4MG SL TAB 0.4MG UNDER THE TONGUE ACTIVE EVERY 5 MINUTES NEEDED Indication: FOR ACUTE CHEST PAIN Non-VA PSYLLIUM ORAL PWD 1 TEASPOONFUL BY MOUTH ONCE DAILY ACTIVE Non-VA RIVAROXABAN 20MG TAB 20MG BY MOUTH DAILY ACTIVE Non-VA SENNOSIDES 8.6MG TAB 8.6MG BY MOUTH ONCE DAILY ACTIVE Indication: FOR CONSTIPATION Non-VA TAMSULOSIN HCL 0.4MG CAP 0.4MG BY MOUTH ONCE DAILY ACTIVE Non-VA [id number]/VILANTER [id number] 30D INH 1 ACTIVE INHALATION BY MOUTH ONCE DAILY 18 Total Medications Allergies: VICODIN, CODEINE, PIROXICAM, HYDROCODONE Date Vital Measurement Qualifiers 09/08/2024 09:12 Temp F (C) 98.1 (36.7) Pulse 61 Respir 18 BP 129/55 POx (L/Min)(%) 96 At Rest FOCUSED EXAMINATION GEN: Well-developed elderly male seated in exam chair in no acute distress Vascular: Pulses intact left lower extremity Neuro: sensation is intact MSK: Full range of motion of the joints with [place] able to extend and hold as well as flex. There is no erythema. No excess warmth. Mild soft tissue swelling. No fluid wave. Negative ballottement. Mild crepitus palpable. Negative laxity with anterior posterior draw or valgus/varus stress. MDM: No clinical evidence of acute neurovascular, neurosensory or gross functional deficit at this time. was placed in a hinged knee support brace with improved pain and sense of stability. He will continue with Tylenol 3 times daily as previously instructed. Applications of OTC mentholated ointments ad santiago. Follow-up with PCP for any PT consult at her discretion. RTC as needed. Defer x-ray at this time as index for yield is extremely low. ASSESSMENT/PLAN Internal derangement left knee As above On this date of the encounter, I spent 30 minutes on some or all of the following: chart review, history, physical examination, treatment planning, education and counseling of the patient/family/care information associate, placing orders, communicating with other health care providers and documentation in the electronic health record. able to verbalize understanding of plan of care and agrees. >> MEDICATIONS Reviewed and reconciled with /alba/ ZHANNA SARGENT MS,PA-C PHYSICIAN CHAIN BUILDER LOOM CONTROL Signed: 09/08/2024 10:17 Receipt Acknowledged By: 09/08/2024 10:54 /es/ POLLY CLIFFORD D.O. PHYSICIAN 09/12/2024 08:51 /alba/ LEONARDO BOWLES Registered Nurse 09/12/2024 ADDENDUM STATUS: COMPLETED Followed up with and daughter Linden via tele. They state there has been improvement with the brace and tylenol but still recovering, not back to baseline. They haven't been able to take tylenol three times per day because the vet goes to bed at 5:30 pm. They are requesting PT Consult in [place]. Daughter Linden can drive to the sessions. Forward to PCP, please enter [facility] PT consult as requested. Thank you! /alba/ LEONARDO BOWLES Registered Nurse Signed: 09/12/2024 08:40 Receipt Acknowledged By: * AWAITING SIGNATURE * POLLY CLIFFORD KEVYN JONAH CT [facility]
--- OUTSIDE RECORDS SUMMARY | 2024-09-19 08:30 | XMS_ITS | Encounter Summary ---
Author Name [facility] [place] [facility] [place] Address [address] [place] [address] Care Team Providers Care Disk And Tape Machine Tender Name Role Phone POLLY CLIFFORD Primary [...] Cherry's Name Patient's Relationship to Policy Cherry [facility] (WNR) MEDICARE ADVANTAGE [facility] ([facility]) Jul 19, 2023 [id number] Rayne JACOBO PATIENT CAR[facility] PRESCRIPT ION [id number] 1 Jul 19, 2017 [id number] Rayne JACOBO PATIENT MEDICARE ([facility]) MEDICARE () PART A Sep 16, 2005 PART A [id number] Rayne JACOBO PATIENT MEDICARE ([facility]) MEDICARE () PART B Sep 16, 2005 PART B [id number] [phone] SUKI JACOBO SR PATIENT MEDICARE (WNR) MEDICARE (M) PART A Sep 16, 2005 PART A SUKI JACOBO SR PATIENT MEDICARE (WNR) MEDICARE (M) PART B Sep 16, 2005 PART B [id number] SUKI JACOBO SR PATIENT MEDICARE (WNR) MEDICARE (M) PART A Sep 16, 2005 PART A [id number] SUKI JACOBO SR PATIENT OPTUM RX PRESCRIPT ION RX Jul 19, 2022 THPRX [id number] [phone] Rayne JACOBO PATIENT OPTUM RX PRESCRIPT ION RX Jul 19, 2022 THPRX [id number] Rayne JACOBO PATIENT OPTUM RX PRESCRIPT ION RX Jul 19, 2022 THPRX [id number] Rayne JACOBO PATIENT [facility] Jul 19, 2017 [id number] [phone] Rayne JACOBO PATIENT [facility] Jul 19, 2017 [facility] [id number] Rayne JACOBO PATIENT [facility] TON ORELLANA E Jul 19, 2017 [id number] [phone] Rayne JACOBO PATIENT [facility] CE ORGANIZ US FAMIL Y Jul 21, 2013 (WNR) [id number] [phone] Rayne JACOBO PATIENT [facility] ([facility]) TRICA RE(WN R) Jul 19, 2017 (WNR) [id number] [phone] Rayne JACOBO PATIENT Selected Encounter This section includes the information on record at [place] for the Encounter. Date/Time Encounter Type Encounter Description Reason Provider Source Sep 19, 2024 01:30 PM THERAPEUTIC EXERCISES PHYSICAL THERAPY ICD-10-CM M25.562 Pain in left knee HAYDEE LAZAR [facility] Encounter Template Text not used by [place] Assessments - Encounter Diagnoses This section includes the primary and secondary diagnoses documented for the Encounter. Date/Time Primary/Secondary Diagnosis Diagnosis Name Provider Source Sep 20, 2024 07:43 AM PRIMARY Pain in left knee HAYDEE LAZAR [place] [facility] [facility] Plan of Treatment: Future Appointments [...] [place] treatment facilities. Appointment Date/Time Appointment Type Appointme nt Facility Name Sep 25, 2024 02:00 PM AMBULATORY - REHAB MEDICIN E [place] [facility] [place] [facility] Oct 02, 2024 01:00 PM AMBULATORY - MEDICINE [facility] [place] [facility] Oct 02, 2024 02:00 PM AMBULATORY - REHAB MEDICIN E [place] [facility] [place] [facility] 2024 09:00 AM AMBULATORY - REHAB MEDICIN E [place] [facility] [facility] November 29, 2024 11:00 AM AMBULATORY - REHAB MEDICIN E [place] [facility] [facility] December 14, 2024 01:00 PM AMBULATORY - MEDICINE [facility] [place] [facility] Dec 26, 2024 10:00 AM AMBULATORY - REHAB MEDICIN E [place] [facility] [place] [facility] Feb 06, 2025 02:00 PM AMBULATORY - REHAB MEDICIN E [place] [facility] [place] [facility] Social History: Smoking Status (Most [...] took place. Date/Time Current Smoking Status Comment Rmaon yost Oct 29, 2023 06:12 PM VA-TOBACCO FORMER USER [place] [facility] Tobacco Use History This section includes a history of the smoking, or tobacco-related health factors, that were collected on or before the date of the Encounter. The data comes from the [place] facility where the Encounter took place. Date/Time Smoking Status/Tobacco Use Comment F acility Oct 29, 2023 06:12 PM HI-TOBACCO QUIT 15 YRS OR MORE [facility] Aug 23, 2019 09:07 AM VA-TOBACCO FORMER USER [facility] Aug 23, 2019 09:07 AM HI-TOBACCO QUIT 15 YRS OR MORE [facility] Jun 28, 2018 10:50 AM HI-TOBACCO FORMER USER [facility] Jun 28, 2018 10:50 AM HI-TOBACCO QUIT 15 YRS OR MORE [facility] Oct 14, 2017 09:20 AM QUIT TOBACCO USE > 7 YEARS AGO [facility] Oct 05, 2016 01:02 PM QUIT TOBACCO USE > 7 YEARS AGO [facility] Advance Directives: All historical and current Section Date Range: From patient's date of to the date document was created. This section includes ALL of a patient's completed or amended [place] Advance and Rescinded Directives. The entries below indicate that a directive exists for the patient, but an actual copy is not included with this document. The data comes from all [place] facilities. Date Advance Directives Provider Source Nov 16, 2023 ADVANCE DIRECTIVE MARC METZGER [facility] Encounter Notes: All associated encounter notes This section contains the clinical notes associated to the Encounter. Date/Time Encounter Note(s) Provider Source Sep 19, 2024 01:39 PM PHYSICAL THERAPY C ONSULT: LOCAL TITLE: PHYSICAL THERAPY CONSULT STANDARD TITLE: PHYSICAL THERAPY CONSULT DATE OF NOTE: SEP 19, 2024@13:39 ENTRY DATE: SEP 19, 2024@13:39:08 AUTHOR: HAYDEE LAZAR EXP COSIGNER: URGENCY: STATUS: COMPLETED Initial Evaluation date: 09/19/24 Treatment #: 0 Treatment time: 45' Diagnosis: LBP Provider: POLLY CLIFFORD PT Treatment Precautions or Daily Instructions: H/o seizure disorder, Afib SUBJECTIVE: Pt is a 83 y/o male referred for L knee. H/o L meniscal arthroscopy ~30 yrs ago. C/o L knee pain, onset 3-4 wks ago with no trauma or acute injury prior. Reports increased difficultly with mobility in the past year due to knee pain but started getting worse the past couple months. Also experiencing some numbness/tingling of LLE. Baseline resting pain 5/10, aggravated when sleeping on L side. Pt denies increased pain with movement/activity, but states it's hard for him to tell because he isn't very active. Managing pain with OTC pain meds, also has knee brace which is helpful per pt. Arrived to clinic w/ [facility]PC but states he uses 4[facility] for longer distance community ambulation. Date of onset: 3-4 wks ago ( x ) Gradual ( ) Rapid CRISTHIAN: None Since onset: ( x ) Worsening ( ) Improving ( ) Staying the same C/O: ( x ) Pain: ( ) ROM: ( ) Strength: ( x ) Sensation: LLE Pain 0-10: Baseline at rest 5/10, doesn't increase much higher than that per pt Improves w/: OTC meds, knee brace Increases w/: Sleeping on L side Pt. goal: Strengthen legs, decrease pain, improve mobility Current Exercise Habits: Every day short 5-10 minute walks several times a day Social: Lives alone but has 2 daughter's that live locally in [place] []Full-time []Part-time []Seeking employment []Disabled [x]Retired Worked BM[employer] on [employer] RED FLAGS: []Recent Trauma [x]Age (50+) []Hx of Cancer []Fever/chills/night sweats []Unexplained weight loss []Recent infection []Immunosuppression []Night pain []Saddle anesthesia []Bowel/bladder dysfunction [x]LE neurological deficit Active problems - Computerized Problem List is the source for the followin. Chronic obstructive pulmonary disease 2. Benign Prostatic Hypertrophy without Outflow Obstruction ([facility] [id number]) 3. Lumbosacral radiculopathy 4. Multiple renal cysts 5. Benign essential hypertension 6. Toxic polyneuropathy 7. Sleep apnea 8. Hepatitis C 9. H/O: osteoarthritis 10. Atrial fibrillation 11. Seizure disorder 12. Cerebral atrophy 13. Cognitive disorder O: Palpation: Mild swelling in medial aspect of L knee w/ medial joint line tenderness. Patellar mobility and orientation WNL. ROM: Hip: b/l hip ER PROM significantly limited based on JOHN Knee: WNL Ankle: L DF limited at neutral Patellofemoral mobility: Gliding in all direction WNL and painfree Strength: L R Hip flexion Iliopsoas (L2) *pain 4/5 Hip Adduction: 5/5 5/5 Knee extension Quadricep (L4) 5/5 5/5 Knee flexion Hamstrings (L4-S1) 5/5 5/5 Hip Internal Rotation : /5 4/5 Hip External Rotation : /5 4/5 Ankle dorsiflexion Tibialis anterior (L4-L5) 5/5 5/5 Plantar flexion Gastrocnemius (S1) /5 5/5 Inversion: /5 5/5 Eversion: /5 5/5 Hip abduction Abductors (L5) 4-/5 4/5 Functional Movement Screen: Functional squat: Pain free, no knee valgus SLS: Increased pain in L knee with L SLS Special tests: Scour test: + b/l JOHN: + for pain on L side, significant mm tension b/l Ligamentous (-) valgus stress at 0 degrees(capsule & cruciate) (-) valgus stress at 30 degrees(MCL) (-) varus stress(LCL) (-) Anterior drawer(ACL) (-) Maria De Jesus(ACL) (-) Posterior drawer(PCL) (-) Posterior sag sign(PCL) Meniscal (+) L Cordelia Test (-) Apley's compression Test (-) Thessaly Test Muscle Length/Flexibility: Lam Test: Left: Normal Limited__mod___ Right: Normal Limited____mod____ Meg's Test: Left: Normal Limited__sig___ Right: Normal Limited___sig Hamstring (90-90): Left: Normal Limited__mod___ Right: Normal Limited___mod____ Stacia Test: Left: Normal__x___ Limited Right: Normal___x___ Limited Treatment administered: Patient education was provided for all aspects of care during this clinical encounter. THERAPEUTIC EXERCISE: MINUTES: Access Code: [email or web address] URL: [email or web address] Date: 09/19/2024 Prepared by: Haydee Lazar Exercises - Seated Hamstring Stretch - 3 x daily - 3 reps - 30 hold MANUAL THERAPY: MINUTES: GAIT TRAINING: MINUTES: NEUROMUSCULAR EDUCATION: MINUTES: SELF CARE/EDUCATION: MINUTES: A: : Pt is a 83 y/o male referred for L knee. H/o L meniscal arthroscopy ~30 yrs ago. C/o L knee pain, onset 3-4 wks ago with no trauma or acute injury prior. Following initial assessment, pt presents with impairments in ROM, strength, functional mobility, and activity tolerance. Hip ER PROM limited b/l based on JOHN test and L DF PROM limited at neutral. Strength testing showed weakness of b/l hips L>R, L hip pain with resisted L hip flexion. Scour test was positive b/l, JOHN positive for pain on L side and significant mm tension b/l. Knee ligamentous testing was all negative. [facility] test positive on L suggesting possible meniscal involvement medial side. Muscle length/flexibility testing showed significant tightness of b/l quads, moderate tightness of b/l hip flexors and HS. STG'S (4 weeks) 1. Perform 15-20 minutes of low-impact cardio 3x/week. 2. Pt will demonstrate 5/5 L hip strength. 3. Pt will increase walking tolerance to 30 mins w/ pain < 3/10. 4. Pt to be I with HEP P: Pt to be seen 1x/week for 4wks POC to include: HP/CP Low impact aerobic exercise begin with Hip strengthening on L open chain progressing to closed chain start Quads, HS, hip flexor S and piriformis trial figure 4 if tolerable Knee strengthening progressing to eccentric strength Pt ed on body mechanics HEP possible Gerofit candidate This treatment was primarily performed by Haydee Rodriguez, SPT, however, I, Haydee Lazar PT, DPT, was present during the course of this treatment in its entirety providing direct supervision for this student, I agree with treatment and plan of care as stated above. Suicide Screen: C-SSRS Screening Parmer-Suicide Severity Rating Scale (C-SSRS Screener) 1. Over [...] due to responses to other questions. /alba/ Haydee Lazar PT,DPT PHYSICAL THERAPIST Signed: 09/20/2024 07:45 HAYDEE LAZAR [place] [facility]
--- OUTSIDE RECORDS SUMMARY | 2024-10-02 08:00 | XMS_ITS | Encounter Summary ---
Author Name [facility] [place] Address [address] [place] [address] Care Team Providers Care Head Golf Professional Name Role Phone POLLY CLIFFORD Primary Care [...] Cherry's Name Patient's Relationship to Policy Cherry [facility] (WNR) MEDICARE ADVANTAGE [facility] (WNR) Jul 19, 2023 [id number] Rayne JACOBO PATIENT [employer] PRESCRIPT ION [id number] 1 Jul 19, 2017 [id number] Rayne JACOBO PATIENT MEDICARE (WNR) MEDICARE (M) PART A Sep 16, 2005 PART A [id number] Rayne JACOBO PATIENT MEDICARE (WNR) MEDICARE () PART B Sep 16, 2005 PART B [id number] SUKI JACOBO SR PATIENT MEDICARE (WNR) MEDICARE (M) PART A Sep 16, 2005 PART A SUKI JACOBO SR PATIENT MEDICARE (WNR) MEDICARE (M) PART B Sep 16, 2005 PART B [id number] SUKI JACOBO SR PATIENT MEDICARE (WNR) MEDICARE (M) PART A Sep 16, 2005 PART A [id number] SUKI JACOBO SR PATIENT OPTUM RX PRESCRIPT ION RX Jul 19, 2022 THPRX [id number] Rayne JACOBO PATIENT OPTUM RX PRESCRIPT ION RX Jul 19, 2022 THPRX [id number] Rayne JACOBO PATIENT OPTUM RX PRESCRIPT ION RX Jul 19, 2022 THPRX [id number] Rayne JACOBO PATIENT [facility] Jul 19, 2017 [id number] Rayne JACOBO PATIENT [facility] Jul 19, 2017 [facility] [id number] [phone] Rayne JACOBO PATIENT [facility] TON ORELLANA E Jul 19, 2017 [id number] Rayne JACOBO PATIENT [facility] CE ORGANIZ US FAMIL Y Jul 21, 2013 (WNR) [id number] Rayne JACOBO PATIENT [facility] (R) TRICA RE(WN R) Jul 19, 2017 (WNR) [id number] [phone] Rayne JACOBO PATIENT Selected Encounter This section includes the information on record at [place] for the Encounter. Date/Time Encounter Type Encounter Description Reason Provider Source Oct 02, 2024 01:00 PM INTRM OPH EXAM EST PATIENT OPTOMETRY ICD-10-CM G43.909 Migraine, unsp, not intractable, without status migrainosus FRANCIE,NICK Nita CORDERO Encounter Template Text not used by CT Assessments - Encounter Diagnoses This section includes the primary and secondary diagnoses documented for the Encounter. Date/Time Primary/Secondary Diagnosis Diagnosis Name Provider Source Oct 04, 2024 07:32 AM PRIMARY Migraine, unsp, not intractable, without status migrainosus LACEY MARMOLEJO CT [facility] [place] [facility] Oct 04, 2024 07:32 AM SECONDARY Dry eye syndrome of bilateral lacrimal glands LACEY MARMOLEJO CT [facility] [place] [facility] Oct 04, 2024 07:32 AM SECONDARY Other chronic allergic conjunctivitis LACEY MARMOLEJO CT [facility] [place] [facility] Oct 04, 2024 07:32 AM SECONDARY Other subjective visual disturbances LACEY MARMOLEJO CT [facility]TR[facility] [place] [facility] Oct 04, 2024 07:32 AM SECONDARY Presence of intraocular lens LACEY MARMOLEJO CT [facility] [place] [facility] Plan of Treatment: Future Appointments (+ 6 months) and Future Tests (+/- 45 days) The Plan of Treatment section includes future care activities for the patient [facility] This section includes future appointments and future orders which are active, pending or scheduled. Future Appointments This section includes appointments that were scheduled to occur 6 months from the date of the Encounter, up to a maximum of 20 appointments. The data comes from all CT treatment facilities. Appointment Date/Time Appointment Type Appointme nt Facility Name 2024 09:00 AM AMBULATORY - REH[facility] MEDICIN E [facility] [place] [facility] November 29, 2024 11:00 AM AMBULATORY - REHAB MEDICIN E [facility] [facility] December 14, 2024 01:00 PM AMBULATORY - MEDICINE VA C [facility] [place] [facility] Dec 26, 2024 10:00 AM AMBULATORY - REHAB MEDICIN E [facility] [facility] Feb 06, 2025 02:00 PM AMBULATORY - REHAB MEDICIN E [place] [facility] [facility] Social History: Smoking Status (Most current) [...] Ramon yost Oct 29, 2023 06:[address]-TOBACCO QUIT 15 YRS OR MORE [facility] Tobacco Use History This section includes a history of the smoking, or tobacco-related health factors, that were collected on or before the date of the Encounter. The data comes from the CT facility where the Encounter took place. Date/Time Smoking Status/Tobacco Use Comment Prashanth price Oct 29, 2023 06:[address]-TOBACCO QUIT 15 YRS OR MORE [facility] Aug 23, 2019 09:07 AM VA-TOBACCO FORMER USER CT CNTR [facility] [place] [facility] Aug 23, 2019 09:[address]-TOBACCO QUIT [address] [facility] Jun 28, 2018 10:50 AM VA-TOBACCO FORMER USER CT CNTR [facility] [place] [facility] Jun 28, 2018 10:[address]-TOBACCO QUIT [address] [facility] [place] [facility] Oct 14, 2017 09:20 AM QUIT [facility] [place] [facility] Oct 05, 2016 01:02 PM QUIT TOBACCO USE > 7 YEARS AGO [facility] Advance Directives: All historical and current Section [...] Nov 16, 2023 ADVANCE DIRECTIVE MARC METZGER [facility] Encounter Notes: All associated encounter notes This section contains the clinical notes associated to the Encounter. Date/Time Encounter Note(s) Provider Source Oct 02, 2024 12:49 PM OPTOMETRY NOTE: LOCAL TITLE: OPTOMETRY NOTE STANDARD TITLE: OPTOMETRY NOTE DATE OF NOTE: OCT 02, 2024@12:49 ENTRY DATE: OCT 02, 2024@12:49:54 AUTHOR: CHI CRUZ EXP COSIGNER: RONNIE MARMOLEJO URGENCY: STATUS: COMPLETED OPTOMETRY NOTE Has ADDENDA Active problems - Computerized Problem List is the source for the followin. Chronic obstructive pulmonary disease 2. Benign Prostatic Hypertrophy without Outflow Obstruction ([facility] [id number]) 3. Lumbosacral radiculopathy 4. Multiple renal cysts 5. Benign essential hypertension 6. Toxic polyneuropathy 7. Sleep apnea 8. Hepatitis C 9. H/O: osteoarthritis 10. Atrial fibrillation 11. Seizure disorder 12. Cerebral atrophy 13. Cognitive disorder Active Outpatient Medications (including Supplies): Active Outpatient Medications Status 1) EYELID CLEANSER,EYE SCRUB PAD USE 1 PAD TOPICALLY ONCE DAILY ACTIVE Indication: BLEPHARITIS 2) KETOTIFEN 0.025% OPH SOLN INSTILL 1 DROP INTO EACH EYE EVERY ACTIVE 12 HOURS (IF YOU WEAR CONTACT LENSES, WAIT 10 MINUTES BEFORE INSERTING LENSES) Indication: FOR ALLERGIC CONJUNCTIVITIS 3) PEG 400 0.4%/PROP GLYCOL 0.3% OPH SOLN INSTILL 1 DROP INTO ACTIVE EACH EYE FOUR TIMES A DAY Indication: FOR DRY EYE 4) PREDNISOLONE ACETATE 1% OPH SUSP INSTILL 1 DROP INTO EACH ACTIVE EYE TWICE DAILY SHAKE WELL BEFORE USING Indication: INFLAMMATORY DRY EYE Active Non-VA Medications Status 1) [...] BY MOUTH ONCE DAILY ACTIVE 14) Non-VA [id number]/VILANTERO L25MCG 30D INH 1 INHALATION ACTIVE BY MOUTH ONCE DAILY 18 Total Medications Allergies: VICODIN, CODEINE, PIROXICAM, HYDROCODONE All medications including those prescribed by outside VA's, community providers, and all OTC meds were reviewed and reconciled with patient to the best of their abilities. This 83 year old MALE is seen today for problem focused exam FELY: Jul 10 2024 Chief Complaint: OS bothering him with glasses on, keeps fluttering and keeps wants to cross x 2 weeks, does not happen every day. pt reports flutters look like fireflies in the morning in both eyes, fireflies last about 15-20 seconds. Pt reports when he wakes up eyes are tired, he is rubbing them, and they are itchy. H/o Sleep apnea but denies CPAP use. Pt reports he uses Pred forte twice a day, pt reports he does not know what a Aleida mask is. Reports he wrote instructions out for drops and it helps. Pt reports eye pain has gone away from complaint in June. OHx: -pseudophakia OU -mild PCO OU (evaluated [...] as listed in the electronic record): B/P: 129/55 (09/08/2024 09:12) Pulse: 61 (09/08/2024 09:12) Temperature: 98.1 F [36.7 C] (09/08/2024 09:12) Weight: 220 lb [99.79 kg] (08/29/2024 10:47) Height: 69 in [175.3 cm] (11/16/2023 11:00) BMI: BMI: 32.6 PERTINENT LABS: HEMOGLOBIN A1C TREND Collection DT Spec HGBA1c 09/13/2018 09:12 BLOOD 5.3 03/11/2018 09:51 BLOOD 5.4 04/14/2017 10:05 BLOOD 5.2 10/05/2016 13:56 BLOOD 5.2 (-) Smoker/Length of Time/PPD: Current Rx: OD: +2.25 -2.25 axis 105 2 PD BRANDI OS: +1.25 -3.00 axis 087 1 PD BD +2.50 add DVA ( )sc ( )cc - spectacles OD: 20/20-1 OS: 20/20 Pupils: PERRL (-)APD EOMs: SAFE OU, (-)Pain/Diplopia CVF (facial, peripheral): FTFC OU CT: with glasses on distance: Ortho Near: Ortho Pt reports no diplopia during visual acuity and cover testing. Subjective Refraction OD: +2.50 -2.25 axis 105 2 PD BRANDI OS: +1.25 -3.00 axis 087 1 PD BD +2.25 add All the above performed by student, reviewed by attending Anterior segment: Performed by student, repeated by attending * Lids: Dermatochalasis OU , ptosis with chronic MGD trace BUL/BLL blepharitis RUL Conj: Mild chronic injection each eye Cornea: Clear OU reduced TBUT and tear meniscus OU AC: Deep and quiet each eye Iris: Normal each eye Lens: Centered PCIOL each eye Tonometry: Performed by student, reviewed by attending * [X] GAT [ ] i[facility] [] Castaneda OD 11 mmHg OS 12 mmHg Time: 1:30pm Fundus exam: Dilated: Non dilated:XX declined Pt and caregiver declined, stated he needed to get to PT appointment at 2pm. Performed by student, repeated by attending * Assessment/Plan: 1. Other Visual Disturbance - longstanding history of ocular migraine, being followed by neurologist in community care - Pt instructed to discontinue eye rubbing in the morning. - Monitor 2. Allergic Conjunctivitis, OU - Continue to use Ketotifen - Pt educated on harmful effects of eye rubbing. - Monitor 2. Dry eyes OU; (symptomatic) - Pt. ed. on todays findings - instructed to continue using refresh - Monitor 3. Pseudophakia (OU) - PCIOLs appear well centered and stable today - Pt. ed. on findings - Monitor 4. Esophoria with intermittent diplopia - Asymptomatic today - Continue to take breaks when reading - Monitor in January at CEE 5. Hyperopia OU and presbyopia OU - Refractive status stable - Monitor Return to Clinic 4 months for CEE or earlier PRN /alba/ DANNY CRUZ OPTOMETRY STUDENT Signed: 10/02/2024 16:25 /alba/ Ronnie Marmolejo OD CHIEF OF OPTOMETRY Cosigned: 10/04/2024 07:33 10/04/2024 ADDENDUM STATUS: COMPLETED I saw the patient in conjunction with the student and agree to the stated findings and plan as noted below. Longstanding history of migrainous headaches followed in the community by neurology. Chronic bilateral allergic conjunctivitis with complaint of itchy eyes upon waking in the morning. Continue ketotifen 1 drop twice a day each. Bilateral dry eye disease with evidence of reduced tear break-up time, continue use of lubricating drops 2-4 times a day each eye. Bilateral pseudophakia looks perfect, no change in glasses indicated at present. Bilateral subjective visual disturbance related to eye rubbing. Discussed that if he rubs his eyes really hard seeing sparkling lights is expected due to release of false veins from stimulation of the retina. Discussed use of using lubricating drops and ketoprofen to reduce symptoms of ocular itching and irritation in order to help minimize eye rubbing. Plan: Patient education as noted above reviewed exam findings now. Review use of lubricating drops and ketotifen. Discussed not rubbing his eyes so vigorously every day. Keep scheduled follow-up as indicated. Ophthalmic medication reconciliation: Ketotifen 1 drop twice a day each eye Lubricating drops 2-4 times a day each eye /alba/ Ronnie Marmolejo OD CHIEF OF OPTOMETRY Signed: 10/04/2024 07:46 OSKAR CRUZ [facility]
--- OUTSIDE RECORDS SUMMARY | 2024-10-10 04:00 | XMS_ITS | Encounter Summary ---
Author Name [facility] [place] [facility] [place] Address [address] [place] [address] Care Team Providers Care Assistant Housekeeping Manager Name Role Phone POLLY CLIFFORD Primary Care [...] to Policy Cherry [facility] (WNR) MEDICARE ADVANTAGE [facility] ([facility]) Jul 19, 2023 [id number] Rayne JACOBO PATIENT [facility] PRESCRIPT ION [id number] Jul 19, 2017 [id number] [phone] Rayne JACOBO PATIENT MEDICARE ([facility]) MEDICARE () PART A Sep 16, 2005 PART A [id number] Rayne JACOBO PATIENT MEDICARE ([facility]) MEDICARE () PART B Sep 16, 2005 PART B [id number] SUKI JACOBO SR PATIENT MEDICARE (WNR) MEDICARE (M) PART A Sep 16, 2005 PART A SUKI JACOBO SR PATIENT MEDICARE (WNR) MEDICARE (M) PART B Sep 16, 2005 PART B [id number] [phone] SUKI JACOBO SR PATIENT MEDICARE (WNR) MEDICARE (M) PART A Sep 16, 2005 PART A [id number] SUKI JACOBO SR PATIENT [employer] RX PRESCRIPT ION RX Jul 19, 2022 [id number] [id number] Rayne JACOBO PATIENT [employer] RX PRESCRIPT ION RX Jul 19, 2022 THPRX [id number] Rayne JACOBO PATIENT [facility] RX PRESCRIPT ION RX Jul 19, 2022 THPRX [id number] [phone] Rayne JACOBO PATIENT [facility] Jul 19, 2017 [id number] [phone] Rayne JACOBO PATIENT [facility] Jul 19, 2017 [facility] [id number] Rayne JACOBO PATIENT [facility] Jul 19, 2017 [id number] [phone] Rayne JACOBO PATIENT [facility] Y Jul 21, 2013 (WNR) [id number] [phone] Rayne JACOBO PATIENT [facility] ([facility]) TRICA RE(WN R) Jul 19, 2017 (WNR) [id number] [phone] Rayne JACOBO PATIENT Selected Encounter This section includes the information on record at [place] for the Encounter. Date/Time Encounter Type Encounter Description Reason Provider Source 2024 09:00 AM THERAPEUTIC EXERCISES PHYSICAL THERAPY ICD-10-CM M25.562 Pain in left knee GENE LI E Encounter Template Text not used by [place] Assessments - Encounter Diagnoses This section includes the primary and secondary diagnoses documented for the Encounter. Date/Time Primary/Secondary Diagnosis Diagnosis Name Provider Source 2024 09:44 AM PRIMARY Pain in left knee GENE LI [place] [facility] [place] [facility] 2024 09:44 AM SECONDARY Low back pain, unspecified [facility] Plan of Treatment: Future Appointments (+ 6 months) and Future Tests (+/- 45 days) The Plan of Treatment section includes future care activities for the patient from all [place] [facility]. This section includes future appointments and future orders which are active, pending or scheduled. Future Appointments This section includes appointments that were scheduled to occur 6 months from the date of the Encounter, up to a maximum of 20 appointments. The data comes from all [place] treatment facilities. Appointment Date/Time Appointment Type Appointme nt Facility Name November 29, 2024 11:00 AM AMBULATORY - [place] [facility] [place] [facility] December 14, 2024 01:00 PM AMBULATORY [place]ICINE [place] [facility] [place] [facility] Dec 26, 2024 10:00 AM AMBUL[place]ORY [place] [facility] [place] [facility] Feb 06, 2025 02:00 PM [facility] [place] [facility] Social History: Smoking Status (Most current) [...] 29, 2023 06:12 PM VA-TOBACCO FOR[facility] Tobacco Use History This section includes a history of the smoking, or tobacco-related health factors, that were collected on or before the date of the Encounter. The data comes from the [place] facility where the Encounter took place. Date/Time Smoking Status/Tobacco Use Comment F acility Oct 29, 2023 06:12 PM VA-TOBACCO QUIT 15 YRS OR MORE [place] [facility] [place] [facility] Aug 23, 2019 09:07 AM VA-TOBACCO FORMER USER [place] [facility] [place] [facility] Aug 23, 2019 09:07 AM VA-TOBACCO QUIT 15 YRS OR MORE [place] [facility] [place] [facility] Jun 28, 2018 10:50 AM VA-TOBACCO FORMER USER [place] [facility] Jun 28, 2018 10:50 AM VA-TOBACCO QUIT 15 YRS OR MORE [place] [facility] Oct 14, 2017 09:20 AM QUIT TOBACCO USE > 7 YEARS A[facility] Oct 05, 2016 01:02 PM QUIT TOBACCO USE > 7 YEARS AGO [facility] Advance Directives: All historical and current [...] Nov 16, 2023 ADVANCE DIRECTIVE MARC METZGER [facility] Encounter Notes: All associated encounter notes This section contains the clinical notes associated to the Encounter. Date/Time Encounter Note(s) Provider Source 2024 09:38 AM PHYSICAL THERAPY NOTE: LOCAL TITLE: PHYSICAL THERAPY STANDARD TITLE: PHYSICAL THERAPY NOTE DATE OF NOTE: 2024@09:38 ENTRY DATE: 2024@09:38:12 AUTHOR: XCOHILT LI EXP COSIGNER: URGENCY: STATUS: COMPLETED Initial Evaluation date: 09/19/24 Treatment #: 3 Treatment time: 30' Diagnosis: LBP, pain in left knee Provider: POLLY CLIFFORD PT Treatment Precautions or Daily Instructions: H/o seizure disorder, AFib SUBJECTIVE: Feels that he's doing better, walking better, would like to continue OBJECTIVE: THERAPEUTIC EXERCISE: MINUTES: 15 mins Nu-step 10 mins L3 alternating forward lunge in pbars sit<> stand, 0 UE support MANUAL THERAPY: MINUTES: GAIT TRAINING: MINUTES: 15 mins amb with rollator, working on upright posture and stride length to reduce the risk of falls cueing provided for both, NEUROMUSCULAR EDUCATION: MINUTES: OTHER: MINUTES: MODALITIES: MINUTES: [] Contraindication screen completed prior to modality [] Skin intact pre/post SELF CARE/EDUCATION: MINUTES: Patient education was provided for all aspects of care during this clinical encounter. 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
--- OUTSIDE RECORDS SUMMARY | 2024-11-29 06:00 | XMS_ITS | Encounter Summary ---
Author Name [facility] [facility] [place] Address [address] [place] [address] Care Team Providers Care Membership Sales Advisor Name Role Phone POLLY CLIFFORD Primary Care [...] Cherry's Name Patient's Relationship to Policy Cherry [facility] (WNR) MEDICARE ADVANTAGE [facility] (WNR) Jul 19, 2023 [id number] Rayne JACOBO PATIENT [place] PRESCRIPT ION [id number] Jul 19, 2017 [id number] Rayne JACOBO PATIENT MEDICARE (WNR) MEDICARE (M) PART A Sep 16, 2005 PART A [id number] [phone] Rayne JACOBO PATIENT MEDICARE (WNR) MEDICARE (M) PART B Sep 16, 2005 PART B [id number] [phone] SUKI JACOBO SR PATIENT MEDICARE (WNR) MEDICARE (M) PART A Sep 16, 2005 PART A SUKI JACOBO SR PATIENT MEDICARE (WNR) MEDICARE (M) PART B Sep 16, 2005 PART B [id number] SUKI JACOBO SR PATIENT MEDICARE (WNR) MEDICARE (M) PART A Sep 16, 2005 PART A [id number] [phone] SUKI JACOBO SR PATIENT [employer] RX PRESCRIPT ION RX Jul 19, 2022 THPRX [id number] Rayne JACOBO PATIENT [employer] RX PRESCRIPT ION RX Jul 19, 2022 THPRX [id number] Rayne JACOBO PATIENT [employer] RX PRESCRIPT ION RX Jul 19, 2022 THPRX [id number] [phone] Rayne JACOBO PATIENT [facility] Jul 19, 2017 [id number] Rayne JACOBO PATIENT PENDING SALE TO [facility] Jul 19, 2017 [facility] [id number] [phone] Rayne JACOBO PATIENT [facility] ORELLANA E Jul 19, 2017 [id number] Rayne JACOBO PATIENT [facility] Y Jul 21, 2013 (WNR) [id number] Rayne JACOBO PATIENT [facility](WN R) Jul 19, 2017 (WNR) [id number] Rayne JACOBO PATIENT Selected Encounter This section includes the information on record at [place] for the Encounter. Date/Time Encounter Type Encounter Description Reason Provider Source November 29, 2024 11:00 AM HEARING AID REPAIR/MODIFYIN G AUDIOLOGY ICD-10-CM H90.3 Sensorineural hearing loss, bilateral [facility] Encounter Template Text not used by [place] Assessments - Encounter Diagnoses This section includes the primary and secondary diagnoses documented for the Encounter. Date/Time Primary/Secondary Diagnosis Diagnosis Name Provider Source November 29, 2024 11:17 AM PRIMARY Sensorineural hearing loss, bilateral [facility] November 29, 2024 11:17 AM SECONDARY Encounter for fitting and adjustment of hearing aid [facility] Plan of Treatment: Future Appointments (+ 6 months) and Future Tests (+/- 45 days) The Plan of Treatment section includes future care activities for the patient [facility] This section includes future appointments and future orders which are active, pending or scheduled. Future Appointments This section includes appointments that were scheduled to occur 6 months from the date of the Encounter, up to a maximum of 20 appointments. The data comes from all [place] treatment facilities. Appointment Date/Time Appointment Type Appointme nt Facility Name December 14, 2024 01:00 PM AMBULATORY - MEDICINE [facility] Dec 26, 2024 10:00 AM AMBULATORY - REHAB MEDICIN E [facility] Feb 06, 2025 02:00 PM AMBULATORY - REHAB MEDICIN E [facility] Social History: Smoking Status (Most current) [...] 29, 2023 06:12 PM VA-TOBACCO FORMER USER [facility] Tobacco Use History This section includes a history of the smoking, or tobacco-related health factors, that were collected on or before the date of the Encounter. The data comes from the [place] facility where the Encounter took place. Date/Time Smoking Status/Tobacco Use Comment F acility Oct 29, 2023 06:12 PM [place]-TOBACCO QUIT 15 YRS OR MORE [facility] [place] [facility] Aug 23, 2019 09:07 AM [facility] Aug 23[facility] 2019 09:07 AM VA-TOBACCO QUIT 15 YRS OR MORE [facility] Jun 28, 2018 10:50 AM [facility]ACCO [facility] Jun 28, 2018 10:50 AM VA-TOBACCO QUIT 15 YRS OR MORE [facility] Oct 14, 2017 09:20 AM QUIT TOBACCO USE > 7 YEARS AGO [facility] Oct 05, 2016 01:02 PM QUIT TOBACCO USE > 7 YEARS AGO [facility] Advance Directives: All historical [...] 16, 2023 ADVANCE DIRECTIVE MARC METZGER [facility] Encounter Notes: All associated encounter notes This section contains the clinical notes associated to the Encounter. Date/Time Encounter Note(s) Provider Source November 29, 2024 07:40 AM AUDIOLOGY E & M NOTE: LOCAL TITLE: AUDIOLOGY CLINIC STANDARD TITLE: AUDIOLOGY E & M NOTE DATE OF NOTE: NOVEMBER 29, 2024@07:40 ENTRY DATE: NOVEMBER 29, 2024@07:40:49 AUTHOR: DANNY DOOLEY COSIGNER: URGENCY: STATUS: COMPLETED AUDIOLOGY CLINIC Has ADDENDA Dx CODE: H90.3-Sensorineural Hearing Loss, Bilateral APPOINTMENT TYPE: Hearing Re-Evaluation and Hearing Aid Selection BACKGROUND/HISTORY: was seen 11/29/24 for a hearing re-evaluation and hearing aid selection appointment. He was fit with [place] [employer] ITCs on 10/09/20, and reports he forgot his left hearing aid at home. Overall he has been satisfied with the devices. He is eligible for new hearing aids through the [place] due to the age of the current devices. His last hearing evaluation was on 02/10/22 and he is unsure if his hearing has declined since then. He reports occasional bilateral tinnitus and occasional dizziness. ASSESMENT: Results of today's testing are as follows: Otoscopy was WNL bilaterally. Normal tympanograms obtained bilaterally. Pure tone audiometric testing under headphones in the right ear revealed a mild sloping to severe SNHL 250-8000Hz. Testing in the left ear revealed a mild sloping to profound SNHL 250-8000Hz. SRT WORD RECOGNITION (Recorded [place] [facility] 1/2 Word List) Right 35dBHL 80% @ 80dBHL/45dBm Left 35dBHL 92% @ 80dBHL/45dBm No significant changes were found when compared to the 02/10/22 audiological evaluation. HEARING AID CHECK: The right hearing aid was cleaned and checked, and found to be in good working order. Microphone covers and wax guard replaced. HEARING AID SELECTION: Different hearing aid options were discussed. He is interested in rechargeable technology similar to his previous hearing aids and does not have a pacemaker. He would like the push buttons enabled for VC. Neronote AI ITC R MPs were selected and ordered in [facility]. Impressions were taken without incident and with 's verbal consent. EDUCATION/COUNSELING: The patient was counseled re: today's hearing test results. He demonstrated satisfactory understanding of the education and plan, and was given the opportunity to ask questions throughout today's visit. PLAN: 1. RTC in about 1 month for a 60 minute hearing aid fitting appointment. 2. Hearing re-evaluation in 3-5 years, or sooner if change in hearing occurs. * Patient Education Education provided on the following topics: Hearing test results Education provided to: P Response to Education: VU Higuera Patient P Family F Significant Other SO Verbalizes Understanding VU Returns Demonstration RD Performs Independently PI Lacks Comprehension LC Refused Education RE Not Applicable NA * /alba/ DANNY DOOLEY STAFF MORTICIAN SUPPLIES SALES REPRESENTATIVE Signed: 11/29/2024 11:34 12/07/2024 ADDENDUM STATUS: COMPLETED Hearing aids received and certified, upcoming appointment scheduled on 12/26/2024. /alba/ RITIKA HARTMANN Audiology Health Finance Administrator Signed: 12/07/2024 07:12 DANNY DOOLEY CNTRL [facility]
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
--- OUTSIDE RECORDS SUMMARY | 2024-12-26 05:00 | XMS_ITS ---
Author Name [facility] [place] [facility] [place] Address [address] [place] [address] Care Team Providers Care Contract Forester Name Role Phone POLLY CLIFFORD Primary Care [...] Patient's Relationship to Policy Cherry [facility] (WNR) MEDICARE ADVANTAGE [facility] ([facility]) Jul 19, 2023 [id number] Rayne JACOBO PATIENT [place] PRESCRIPT ION [id number] Jul 19, 2017 [id number] Rayne JACOBO PATIENT MEDICARE ([facility]) MEDICARE () PART A Sep 16, 2005 PART A [id number] Rayne JACOBO PATIENT MEDICARE ([facility]) MEDICARE () PART B Sep 16, 2005 PART B [id number] SUKI JACOBO SR PATIENT MEDICARE (WNR) MEDICARE (M) PART A Sep 16, 2005 PART A SUKI JACOBO SR PATIENT MEDICARE (WNR) MEDICARE (M) PART B Sep 16, 2005 PART B [id number] SUKI JACOBO SR PATIENT MEDICARE (WNR) MEDICARE (M) PART A Sep 16, 2005 PART A [id number] SUKI JACOBO SR PATIENT [facility] RX PRESCRIPT ION RX Jul 19, 2022 [id number] Rayne JACOBO PATIENT [facility] RX PRESCRIPT ION RX Jul 19, 2022 THPRX [id number] Ranye JACOBO PATIENT [facility] RX PRESCRIPT ION RX Jul 19, 2022 THPRX [id number] Ranye JACOBO PATIENT [facility] Jul 19, 2017 [id number] [phone] Rayne JACOBO PATIENT [facility] Jul 19, 2017 [facility] [id number] Rayne JACOBO PATIENT [facility] E Jul 19, 2017 [id number] Rayne JACOBO PATIENT [facility] Jul 21, 2013 (WNR) [id number] Rayne JACOBO PATIENT [facility] ([facility]) [facility] TR[facility] RE(WN R) Jul 19, 2017 (WNR) [id number] Rayne JACOBO PATIENT Selected Encounter This section includes the information on record at [place] for the Encounter. Date/Time Encounter Type Encounter Description Reason Provider Source Dec 26, 2024 10:00 AM HEARING SERVICE AUDIOLOGY ICD-10-CM Z46.1 Encounter for fitting and adjustment of hearing aid CAMINITI,GEMMA E IHE Encounter Template Text not used by [place] Assessments - Encounter Diagnoses This section includes the primary and secondary diagnoses documented for the Encounter. Date/Time Primary/Secondary Diagnosis Diagnosis Name Provider Source Dec 26, 2024 10:51 AM PRIMARY Encounter for fitting and adjustment of hearing aid [facility] Dec 26, 2024 10:51 AM SECONDARY Sensorineural hearing loss, bilateral JAM [facility] Plan of Treatment: Future Appointments (+ 6 months) and Future Tests (+/- 45 days) The Plan of Treatment section includes future care activities for the patient [facility] [place] [facility] This section includes future appointments and future orders which are active, pending or scheduled. Future Appointments This section includes appointments that were scheduled to occur 6 months from the date of the Encounter, up to a maximum of 20 appointments. The data comes from all [place] treatment facilities. Appointment Date/Time Appointment Type Appointme nt Facility Name Feb 06, 2025 02:00 PM [facility] Social History: Smoking Status (Most current) and Tobacco Use (All prior to encounter date) This section includes the most current, and the historical, smoking and tobacco- related health factors from the [place] facility where the Encounter took place. Current Smoking Status This section includes the most current smoking, or tobacco-related health factor, from the [place] facility where the Encounter took place. Date/Time Current Smoking Status Comment Facil ity Oct 29, 2023 06:12 PM VA-TOBACCO FOR[facility] Tobacco Use History This section includes a history of the smoking, or tobacco-related health factors, that were collected on or before the date of the Encounter. The data comes from the [place] facility where the Encounter took place. Date/Time Smoking Status/Tobacco Use Comment F accecile Oct 29, 2023 06:12 PM VA-TOBACCO QUIT 15 YRS OR MORE [facility] [place] [facility] Aug 23, 2019 09:07 AM VA-TOBACCO FORMER USER [place] [facility] [place] [facility] Aug 23, 2019 09:07 AM [place] [facility]IT [facility] YRS OR MORE [facility] Jun 28, 2018 10:50 AM [place] Jun 28, 2018 10:50 AM [place]-TO[place]ACCO QUIT 15 YRS OR MORE [facility] Oct 14, 2017 09:20 AM QUIT TOBACCO USE > 7 YEARS AGO [facility] Oct 05, 2016 01:02 PM [...] Source Nov 16, 2023 ADVANCE DIRECTIVE DOMENICAMARC [facility] Encounter Notes: All associated encounter notes This section contains the clinical notes associated to the Encounter. Date/Time Encounter Note(s) Provider Source Dec 26, 2024 10:36 AM AUDIOLOGY NOTE: LOCAL TITLE: AUDIOLOGY STUDENT PROGRESS NOTE STANDARD TITLE: AUDIOLOGY NOTE DATE OF NOTE: DEC 26, 2024@10:36 ENTRY DATE: DEC 26, 2024@10:36:17 AUTHOR: ROCKY IYER COSIGNER: GEMMA ANN URGENCY: STATUS: COMPLETED AUDIOLOGY STUDENT PROGRESS NOTE Has ADDENDA Hearing Aid Fitting: Binaural Diagnosis: Z46.1 Hearing aid adjustment SUBJECTIVE (S): The Gambier was seen for hearing aid fitting and issuance. had previously been evaluated and found to exhibit significant hearing loss for which amplification was recommended. Gambier is a hearing aid user. How does the patient/client best learn? Verbal Instruction, Visual, and Hands-On Does the patient have any cultural and adventist beliefs, emotional barriers, physical or cognitive limitations, and communication barriers which may impact patient's ability to learn? No Desire and motivation to learn? Excellent OBJECTIVE (O): Otoscopy revealed clear canals AU. Physical fit of hearing aids was good. Gambier verified comfort. Verification of an appropriate acoustic response was obtained using Real Ear measurements (speech mapping) and NAL-NL2 targets. The Gambier reported good subjective benefit as well. Hearing aids were found to be meeting targets adequately and MPO was not exceeding estimated UCL. Settings stored in ERIC. ASSESSMENT (A): The following device(s) were issued: Make: JEREMI Model: EDGE AI ITC R MP Commercial Reporter size/power: n/a Earmold Information: n/a Domes/wax guards, etc.: Hear clear Serial Numbers: [id number]; [id number] Battery size: RECHARGEABLE Line Up Machine Operator: Snapd App PRM CHGR 2.0 CUSTOM; [id number] Trial Period ends: 05/30/25 Program Settings (VC, Programs, Buttons): R raises, L lowers Fitting Formula: NAL-NL2 Spare aids: Yes Counseling was completed throughout todays appointment using a standardized curriculum that includes but is not limited to; realistic expectations with amplification in adverse listening environments, acclimatization to own voice and environmental sounds (following real-ear measurements), the importance of consistent use of amplification, proper insertion/removal, care and maintenance including wax guards, signal and alerts of devices, and charging. The was provided the opportunity to practice in office and reports confidence/understanding in all items reviewed. The was informed of and agreed to [place] policy on hearing aid issuance: Users are responsible for the maintenance and security of their devices. Determination of need to replace a hearing aid is made by the [place] fraud examiner. Hearing aids will not be replaced in cases of neglect, abuse, or excessive loss. Items issued are for personal use only. Prognosis for successful hearing aid use is good. PLAN (P): 1. Contact clinic with any problems/concerns. 2. The International Outcome Inventory-Hearing Aids (IOI-LLANOS) will be mailed to the in four weeks. Gambier was asked to complete and mail back to clinic after completion. Patient Education Education provided on the following topics: Hearing aids Education provided to: P Response to Education: OWEN BERKOWITZ Patient P Family F Significant Other SO Verbalizes Understanding VU Returns Demonstration RD Performs Independently PI Lacks Comprehension LC Refused Education RE Not Applicable NA /alba/ ROCKY IYER Signed: 12/26/2024 13:44 /alba/ Garry SPAIN, [facility] STAFF UNDERGROUND MINER Cosigned: 12/26/2024 14:03 12/26/2024 ADDENDUM STATUS: COMPLETED Supervised and agree with the following, as written by director of student life clinician, Rocky Iyer. /alba/ Garry SPAIN, [facility] STAFF UNDERGROUND MINER Signed: 12/26/2024 14:03 02/07/2025 ADDENDUM STATUS: COMPLETED Gambier returned IOI-LLANOS Outcome Measure to the clinic via mail with an overall score of 35 Based on this score: i. No follow-up call is indicated _XX_ ii. Follow-up call is indicated and fitting clinician will be notified __ /alba/ RITIKA HARTMANN [facility]iology [facility] Batter Out Signed: 02/07/2025 07:58 ROCKY IYER [facility] [place] [facility]
--- OUTSIDE RECORDS SUMMARY | 2025-02-06 09:00 | XMS_ITS | Encounter Summary ---
Author Name [facility] [facility] [place] [facility] [place] Address [address] [place] [address] Care Team Providers Care Machine Fitter Name Role Phone POLYL CLIFFORD Primary Care Provider Unavailabl e Insurance [...] Cherry's Name Patient's Relationship to Policy Cherry [facility] (WNR) MEDICARE ADVANTAGE [facility] (WNR) Jul 19, 2023 [id number] Rayne JACOBO PATIENT [place] PRESCRIPT ION [id number] Jul 19, 2017 [id number] Rayne JACOBO PATIENT MEDICARE (WNR) MEDICARE (M) PART A Sep 16, 2005 PART A [id number] Rayne JACOBO PATIENT MEDICARE (WNR) MEDICARE (M) PART B Sep 16, 2005 PART B [id number] [phone] SUKI JACOBO SR PATIENT MEDICARE (WNR) MEDICARE (M) PART A Sep 16, 2005 PART A SUKI JACOBO SR PATIENT MEDICARE (WNR) MEDICARE (M) PART B Sep 16, 2005 PART B [id number] SUKI JACOBO SR PATIENT MEDICARE (WNR) MEDICARE (M) PART A Sep 16, 2005 PART A [id number] SUKI JACOBO SR PATIENT [facility] RX PRESCRIPT ION RX Jul 19, 2022 [id number] [phone] Rayne JACOBO PATIENT [facility] RX PRESCRIPT ION RX Jul 19, 2022 [facility] [id number] [phone] Rayne JACOBO PATIENT [facility] RX PRESCRIPT ION RX Jul 19, 2022 [id number] Rayne JACOBO PATIENT [facility] Jul 19, 2017 [id number] Rayne JACOBO PATIENT [facility] Jul 19, 2017 [facility] [id number] [phone] Rayne JACOBO PATIENT [facility] Jul 19, 2017 [id number] [phone] Rayne JACOBO PATIENT [facility] Jul 21, 2013 (WNR) [id number] Rayne JACOBO PATIENT [facility](WN R) Jul 19, 2017 (WNR) [id number] Rayne JACOBO PATIENT Selected Encounter This section includes the information on record at [place] for the Encounter. Date/Time Encounter Type Encounter Description Reason Provider Source Feb 06, 2025 02:00 PM HEARING AID REPAIR/MODIFYING AUDIOLOGY ICD-10-CM Z46.1 Encounter for fitting and adjustment of hearing aid SRINIVASAN MITCHELL [place] Encounter Template Text not used by [place] Assessments - Encounter Diagnoses This section includes the primary and secondary diagnoses documented for the Encounter. Date/Time Primary/Secondary Diagnosis Diagnosis Name Provider Source Feb 06, 2025 02:52 PM PRIMARY Encounter for fitting and adjustment of hearing aid SHAHBAZCHRISTIANO SALINAS [facility] Feb 06, 2025 02:52 PM SECONDARY Sensorineural hearing loss, bilateral CHRISTIANO HARTMANN RITA [facility] Plan of Treatment: Future Appointments (+ 6 months) and Future Tests (+/- 45 days) The Plan of Treatment section includes future care activities for the patient from all [place] treatmentfacilities. This section includes future appointments and future orders which are active, pending or scheduled. Active, Pending, and Scheduled Orders This section includes a listing of several types of active, pending, and scheduled orders, including clinic medications orders, diagnostic test orders, procedure orders and consult orders; where the start date of the order is 45 days before the date of the Encounter or 45 days after the date of theEncounter. The data comes from all [place] treatment facilities. Test Date/Time Test Type Test Details Facility Name Mar 08, 2025 08:31 AM Consult Order TBI OPTOME TRY OUTPT Cons Plant Controller's Choice [facility] Social History: Smoking Status (Most [...] 29, 2023 06:12 PM VA-TOBACCO FORMER USER [facility] Tobacco Use History This section includes a history of the smoking, or tobacco-related health factors, that were collected on or before the date of the Encounter. The data comes from the [place] facility where the Encounter took place. Date/Time Smoking Status/Tobacco Use Comment F acility Oct 29, 2023 06:12 PM [place] 15 YRS OR MORE [facility] Aug 23, 2019 09:07 AM VA-TOBACCO FORMER USER [facility] [place] [facility] Aug 23, 2019 09:07 AM VA-TOBACCO QUIT 15 YRS OR MORE [facility] [place] [facility] Jun 28, 2018 10:50 AM VA-TOBACCO FORMER USER [facility] [place] [facility] Jun 28, 2018 10:50 AM VA-TOBACCO QUIT 15 YRS OR MORE [facility] [place] [facility] Oct 14, 2017 09:20 AM QUIT TOBACCO USE > 7 YEARS AGO [facility] [place] [facility] Oct 05, 2016 01:02 PM QUIT TOBACCO USE > 7 YEARS AGO [facility] Advance Directives: All historical and current [...] Nov 16, 2023 ADVANCE DIRECTIVE MARC METZGER [facility] Encounter Notes: All associated encounter notes This section contains the clinical notes associated to the Encounter. Date/Time Encounter Note(s) Provider Source Feb 06, 2025 11:33 AM AUDIOLOGY NOTE: LOCAL TITLE: AUDIOLOGY HEALTH INSURANCE UNDERWRITER SALES STANDARD TITLE: AUDIOLOGY NOTE DATE OF NOTE: FEB 06, 2025@11:33 ENTRY DATE: FEB 06, 2025@11:33:58 AUTHOR: RITIKA HARTMANN COSIGNER: SRINIVASAN MITCHELL URGENCY: STATUS: COMPLETED February 06, 2025 History/Background: [place] was seen for a hearing aid follow up, unaccompanied. The [place] arrived 35 minutes late for his appointment. The presented today reporting his right hearing aid stopped working. He noted he replaced the batteries and wax guard with no improvement from the right aid. Hearing aids: Roland [employer]ITA MED[employer] ITCs MP Serial Numbers: [id number] Battery size: Rechargeable Date Issued: 12/26/2024 Hearing aid check: Both hearing aids were cleaned and checked. Initial inspection revealed cerumen blocking the right wax guard. Replaced wax guards and kandice covers. Biologic check was good for both devices. Otoscopy: Clear canals. Plan: The will follow up as needed. /alba/ RITIKA HARTMANN [facility] Dining Room Attendant Signed: 02/06/2025 14:52 /alba/ SRINIVASAN Jimenez CCC-A CHIEF, AUDIOLOGY/ESTIMATOR AND DRAFTER Cosigned: 02/06/2025 15:51 RITIKA HARTMANN [facility]
--- NOTE | ~2025-07-10 | CT_ITS ---
EXAMINATION: CT ABDOMEN PELVIS WITH IV CONTRAST HISTORY: right groin pain, abdominal distention COMPARISON: Comparison is made with the prior examination dated 05/09/2024. TECHNIQUE: CT scan of the abdomen and pelvis was performed following administration of 85 mL Omnipaque 350 using standard departmental protocol. Coronal and sagittal reformatted images were generated and reviewed. Oral contrast material was not administered at the request of the referring physician. This CT exam was performed with one or more of the following dose reduction techniques: automated exposure control, adjustment of the mA and/or kV according to patient size, use of iterative reconstruction technique. DLP: 711 mGy-cm FINDINGS: LOWER CHEST: The visualized lung bases are clear. There is no pleural effusion. CARDIOVASCULATURE: The heart is normal in size. There is no pericardial effusion. LIVER: The liver is normal in size and contour. No liver mass is identified. The hepatic and portal veins are patent. GALLBLADDER / BILE DUCTS: The gallbladder is surgically absent. There is no intra or extrahepatic biliary ductal dilatation. SPLEEN: The spleen is normal in size. No focal splenic lesion is identified. PANCREAS: The pancreas is unremarkable in appearance. ADRENAL GLANDS: Within normal limits. KIDNEYS/RETROPERITONEUM: No renal calculi are identified. There is no hydronephrosis. There are bilateral renal cysts measuring up to 4.6 cm on the right and 2.3 cm on the left. LYMPH NODES: No abdominal or pelvic lymphadenopathy. VASCULATURE: The abdominal aorta demonstrates atherosclerotic calcification, but is normal in caliber. MESENTERY/PERITONEUM: No free fluid. No masses. There is no free intraperitoneal gas. STOMACH: The stomach is collapsed, limiting evaluation. SMALL BOWEL: The small bowel is normal in caliber. COLON: There is diverticulosis of the descending and sigmoid colon, without evidence of diverticulitis. APPENDIX: Normal. URINARY BLADDER/PELVIC ORGANS: The urinary bladder is unremarkable. The prostate is normal in size. BONES / SOFT TISSUES: There is a right lower rectus sheath hematoma measuring approximately 7.5 x 5.7 x 12.1 cm. This causes mass effect on the urinary bladder. There is degenerative disc disease of the spine. CT/CT abdomen pelvis w IV con IMPRESSION: Right rectus sheath hematoma as described. Electronically signed by: Lv Dominguez MD 07/10/2025 09:14 AM EST
[2025-07-10 06:16] VITALS: BP 140/70; PULSE 65; O2SAT 98
[2025-07-10 06:18] VITALS: BP 136/64; PULSE 70; RESP 18; TEMP 36.4; O2SAT 92; BMI 32.4
--- OUTSIDE RECORDS SUMMARY | 2025-07-10 06:45 | XMS_ITS | Continuity of Care Document ---
Author Name [facility] Organization [facility] Care Team Providers Care Construction Recruiter Name Role Phone [facility] Unavailable Unavailable Problems Combined list of problems from Department of Defense and Veterans Affairs facilities. It does not include entries that were removed or entered in error. Problem Status Onset Date Problem Type Date of Resolution Comments Source Atrial fibrillation Active Condition Oct 05, 2016 Entered By: MALGORZATA CREWS Comment: jennifer. cardiology [facility]. h/o cardioversion [facility] Benign essential hypertension Active Condition [facility] Benign Prostatic Hypertrophy without Outflow Obstruction (SCT [id number]) Active Condition [facility] Cerebral atrophy Active Condition Oct 05, 2016 Entered By: MALGORZATA CREWS Comment: no h/o head injury [facility] Chronic obstructive pulmonary disease Active Condition Nov 15 Entered By: POLLY CLIFFORD Comment: sees [facility] shank threader [facility] Cognitive disorder Active Condition Oct 05, 2016 Entered By: MALGORZATA CREWS Comment: 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 [...] [facility] Diagnosis: ICD-10-CM H90.3 Sensorineural hearing loss, bilateral Active Diagnosis [facility] [...] 2) patient-reported medications. Medication Details Route Status Indication(s) Patie nt Instructions Prescription Expires Prescription Number Last Dispense Date Ordering Provider Order Date Order Qty Source ACETAMINOPH EN 500MG TAB TAKE ONE TABLET BY MOUTH TWICE DAILY ORAL ACTIVE JERRY NAVARRO 2016 [facility] ALBUTEROL 90MCG/ACTUA T (CFC-F) INHL,ORAL,8 .5GM DOSE COUNTER INHALE 2 PUFFS BY MOUTH EVERY 4 HOURS NEEDED RESPIR ATORY (INHAL ATION) ACTIVE 2016 [facility] ATORVASTATI N CA 40MG TAB TAKE ONE-HALF TABLET BY MOUTH AT BEDTIME ORAL ACTIVE FURCOLO,T ROQUE 2023 [facility] CARBOXYMETH YLCELLULOSE NA 1% GEL,OPH APPLY 1 DROP INTO EACH EYE FOUR TIMES DAILY NEEDED FOR DRY EYE CAN USE INTERCHA NGEABLY WITH REGULAR ARTIFICI AL TEARS FOR SEVERE DRYNESS OPHTHA LMIC ACTIVE 12/15/2025 [id number] MARIONO AH B 2024 45 [facility] CITALOPRAM HYDROBROMID E 40MG TAB TAKE ONE TABLET BY MOUTH ONCE DAILY ORAL ACTIVE FURCOLO,T ROQUE 2023 [facility] DILTIAZEM HCL 90MG 12HR CAP,SA TAKE 2 CAPSULES BY MOUTH DAILY ORAL ACTIVE 2016 [facility] EYELID CLEANSER,EY E SCRUB PAD USE 1 PAD TOPICALL Y ONCE DAILY TOPICA L ACTIVE 07/11/2025 [id number] Lisa MARMOLEJO 2023 90 [facility] FUROSEMIDE 20MG TAB TAKE ONE TABLET BY MOUTH ONCE DAILY NEEDED ORAL ACTIVE FURCOLO,T ROQUE 2023 [facility] KETOTIFEN 0.025% SOLN,OPH INSTILL 1 DROP INTO EACH EYE EVERY 12 HOURS FOR ALLERGIC CONJUNCT IVITIS (IF YOU WEAR CONTACT LENSES, WAIT 10 MINUTES BEFORE INSERTIN G LENSES) OPHTHA LMIC ACTIVE 07/11/2025 [id number] FRANCIELisa MICHELAELE 2023 15 [facility] [...] FOR DRY EYE OPHTHA LMIC ACTIVE 07/11/2025 [id number] 5 FRANCIELisa R 2024 45 [facility] PREDNISOLON E ACETATE 1% SUSP,OPH INSTILL 1 DROP INTO EACH EYE TWICE DAILY INFLAMMA TORY DRY EYE SHAKE WELL BEFORE USING OPHTHA LMIC DISCONT INUED BY PROVIDE R 07/11/2025 [id number] 5 Lisa MARMOLEJOELE 2023 5 [facility] [...] ONCE DAILY ORAL ACTIVE FURCOLO,T ROQUE 2023 [facility] UMECLIDINIU M 62.5MCG/ALFA ANTEROL 25MCG/ACTUA T INH,ORAL,30 D INHALE 1 INHALATI ON BY MOUTH ONCE DAILY RESPIR ATORY (INHAL ATION) ACTIVE FURCOLO,T ROQUE 2023 [facility] Allergies, Adverse Reactions, Alerts Combined list of allergies from [facility] ([place], [place]) and [facility] facilities. It does not include entries that were removed or entered in error. Substance Category Reaction Severity Reaction type Status Date Reported Comments Source Codeine Drug allergy (disorder) active 7 [facility] CODEINE Propensity to adverse reactions to drug (finding) [facility] Hydrocodone Drug allergy (disorder) Anxiety active 7 [facility] HYDROCODONE Drug allergy (disorder) active 4 [facility] Piroxicam Drug allergy (disorder) active 7 [facility] PIROXICAM Propensity to adverse reactions to drug (finding) active 7 [facility] VICODIN Propensity to adverse reactions to drug (finding) Anxiety active 7 [facility] Immunizations Combined list of available immunizations from the [facility] and [facility] facilities. Immunization Series Date Given Administered By Site Reaction Lot Number CVX Code Drug Disc Pad Knockout Worker Status Comments Source INFLUENZA, UNSPECIFIED FORMULATION 2023 88 complet ed Completed Series, HISTORICA L INFORMATI ON - FROM PATIENT'S RECALL, [facility] INFLUENZA, UNSPECIFIED FORMULATION 2022 88 complet ed Completed Series, HISTORICA L INFORMATI ON - FROM OTHER REGISTRY, [facility] COVID-19 (MODERNA), MRNA, LNP-S, PF, 100 MCG/0.5 ML DOSE 2 2020 207 complet ed MOD; [id number]; 1 [facility] COVID-19 (MODERNA), MRNA, LNP-S, PF, 100 MCG/0.5 ML DOSE 1 2020 207 complet ed MOD; [id number]; 1 [facility] [...] CONJUGATE PCV 13 2016 133 complet ed [place] [facility] FLU,3 YRS (HISTORICAL) 2015 88 complet ed [facility] - High dose [facility] PNEUMOCOCCAL CONJUGATE PCV 13 2015 133 complet ed [facility] [place] [facility] ZOSTER (HISTORICAL) 2015 121 complet ed [facility] TDAP 2015 115 complet ed [place] [facility] FLU,3 YRS (HISTORICAL) 2014 88 complet ed [place] [facility] FLU,3 YRS (HISTORICAL) 2013 88 complet ed [place] [facility] PNEUMOCOCCAL CONJUGATE PCV 13 2013 133 complet ed [place] [facility] FLU,3 YRS (HISTORICAL) 2012 88 complet ed [place] [facility] TDAP 2012 115 complet ed [place] [facility] FLU,3 YRS (HISTORICAL) 2011 88 complet ed [place] [facility] FLU,3 YRS (HISTORICAL) 2010 88 complet ed [place] [facility] TD(ADULT) UNSPECIFIED FORMULATION 2009 139 complet ed [place] [facility] FLU,3 YRS (HISTORICAL) 2009 88 complet ed [place] [facility] FLU,3 YRS (HISTORICAL) 2009 88 complet ed [facility] -[id number] demic flu [facility] FLU[facility]3 YRS (HISTORICAL) 2008 88 complet ed [place] [facility] ZOSTER (HISTORICAL) 2007 121 complet ed [place] [facility] FLU,3 YRS (HISTORICAL) 2007 88 complet ed [place] [facility] FLU,3 YRS (HISTORICAL) 2006 88 complet ed [place] [facility] FLU,3 YRS (HISTORICAL) 2005 88 complet ed [place] [facility] FLU,3 YRS (HISTORICAL) 2004 88 complet ed [place] [facility] PNEUMOCOCCAL CONJUGATE PCV 13 2004 133 complet ed [place] [facility] TD(ADULT) UNSPECIFIED FORMULATION 2003 139 complet ed [place] [facility] Vital [...] [facility] [id number] 01/20 [facility] En[facility] [id number] 01/26 [facility] [id number] 02/03 [facility] Out[facility] Encounter [id number] 02/03 [facility] Out[facility]counter [id number] 02/03 [facility] Out[facility] Encounter [id number] 02/07 [facility] INTRM OPH EXAM EST PATIENT [id number] Diagnos is: ICD-10- CM H10.45 Other chronic allergi c conjunc VIVI Gupta 02/09 [facility] Out[facility] Encounter [id number] 02/09 [facility] Out[facility] Encounter [id number] 05/23 [facility] Out[facility] Encounter [id number] 05/28 [facility] Out[facility] Encounter [id number] 06/22 [facility] Out[facility] Encounter [id number] 07/01 [facility] Out[facility] Encounter [id number]/[id number] [facility] INTRM OPH EXAM EST PATIENT [id number] 1. Diagnos is: ICD-10- CM L71.8 Other rosacea REANNA MARMOLEJO 07/10 [facility] Out[facility] Encounter [id number] 08/24 [facility] Out[facility] Encounter [id number] 08/29 [facility] OFFICE O/P EST HI 40 MIN [id number] Diagnos is: ICD-10- CM J44.9 Chronic obstruc tive pulmona ry disease , unspeci fied FURCOLO,TI NA 08/29 [facility] Out[facility] Encounter [id number] 09/07 [facility] OFF/OP EST MAY X REQ PHY/QHP [id number] Diagnos is: ICD-10- CM M25.562 Pain in left knee REANNA BOWLES BARTOLOME June 09/08 [facility] OFFICE O/P EST MOD 30 MIN [id number] Diagnos is: ICD-10- CM M23.92 Unspeci fied interna l derange ment of left knee KIMBERLEE WAGNER 09/08 [facility] Outpatient Encounter [id number]/19 [facility] THERAPEUTI C EXERCISES [id number] 1. Diagnos is: ICD-10- CM M25.562 Pain in left knee TONIO LAZAR 09/19 [facility] THERAPEUTI C EXERCISES [id number] Diagnos is: ICD-10- CM M25.562 Pain in left knee Lisa LI KENDY 09/25 [facility] Outpatient Encounter [id number] 09/27 [facility] INTRM OPH EXAM EST PATIENT [id number] Diagnos is: ICD-10- CM G43.909 Migrain e, unsp, not intract able, without status migrain osREANNA Mathis 10/02 [facility] THERAPEUTI C EXERCISES [id number] Diagnos is: ICD-10- CM M25.562 Pain in left knee Lisa LI KENDY 10/02 [facility] THERAPEUTI C EXERCISES [id number] Diagnos is: ICD-10- CM M25.562 Pain in left knee Lisa LI 10/10 [facility] Out[facility] Encounter [id number] 10/22 [facility] Outpatient Encounter [id number] 11/17 [facility] HEARING AID REPAIR/MOD IFYING [id number] Diagnos is: ICD-10- CM H90.3 Sensori neural hearing loss, bilater al BRADEN DOOLEY 11/29 [facility] Out[facility] Encounter [id number] 12/05 [facility] Outpatient Encounter [id number] 12/08 [facility] Outpatient Encounter [id number] 12/12 [facility] OFFICE O/P EST LOW 20 MIN [id number] Diagnos is: ICD-10- CM H04.123 Dry eye syndrom e of bilater al lacrima l glands MERCOLIN,ROGER H B 12/14 [facility] HEARING SERVICE [id number] Diagnos is: ICD-10- CM Z46.1 Encount er for fitting and adjustm ent of hearing aid Preet ANN 12/26 [facility] HEARING AID REPAIR/MOD IFYING [id number] Diagnos is: ICD-10- CM Z46.1 Encount er for fitting and adjustm ent of hearing aid REY MITCHELL 02/06 [facility] Outpatient Encounter [id number] 03/08 [facility] Outpatient Encounter [id number] 03/29 [facility] Outpatient Encounter [id number] 04/06 [facility] Social History Combined list of available smoking, tobacco, and other social history from Department of Defense and Veterans Affairs facilities. Social History Type Response Date Comment Sourc e Tobacco smoking status NHIS VA-TOBACCO FORMER USER 10/29/2023 [facility] History of tobacco use CO-TOBACCO QUIT 15 YRS OR MORE 10/29/2023 [facility] History of tobacco use CO-TOBACCO QUIT 15 YRS OR MORE 08/23/2019 [facility] History of tobacco use VA-TOBACCO FORMER USER 06/28/2018 [facility] History of tobacco use QUIT TOBACCO USE > 7 YEARS AGO 10/14/2017 [facility] History of tobacco use QUIT TOBACCO USE > 7 YEARS AGO 10/05/2016 [facility] This section is an empty social history section. DoD Plan of Care List of future care activities from Department of Veterans Affairs facilities. Additional future care activities may be listed in the Assessment and Plan section. Date/Time Care Activity Care Activity Detail Facili ty 08/27/2025 AMBULATORY - MEDICINE AMBULATORY - MEDICI NE [facility] Advance Directives List of completed, amended, or rescinded Advance Directives on record at Department of [facility] facilities. An actual copy of the Directive is not included. Date Advance Directive Provider Source 11/16/2023 ADVANCE DIRECTIVE MARC METZGER CO LAVONNERAlfonso [facility]
--- OUTSIDE RECORDS SUMMARY | 2025-07-10 06:47 | XMS_ITS | Clinical Summary ---
Author Organization [facility] Address [address] [place], [place] [id number] Phone Care Team Providers Care Prekindergarten Teacher Name Role Phone Grabiel Kasper MD Primary [...] MALGORZATA CREWS Comment: xamarioto. cardiology Dr. [facility]. 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 Neurology Dr. Jon Sleep apnea 06/13/2021 [...] topic Medical Devices Not on file [place] [address] [address] [address] [place] [address] [place] [address] [place] [place] [address] [place] [place] [address] HE[address] PLAN Care Teams Prekindergarten Teacher Relationship Specialty Start Date End Date Grabiel Kasper MD PCP - General Family Medicine 05/28/23 Additional Source Comments The information contained in this document represents components of the legal health record. It is not the complete legal health record.[facility]
--- OUTSIDE RECORDS SUMMARY | 2025-07-10 06:47 | XMS_ITS | Encounter Summary ---
Author Organization [facility] Address [address] [place], [place] [phone] Phone Care Team Providers Care Traffic Signal Repairer Name Role Phone Tona Hook MD Primary Care Provider + Grabiel Kasper MD Primary Care Pr ovider Reason for Referral * Outpatient Procedure - Closed Specialty Diagnoses / Procedures Referred By Contac t Referred To Contact Radiology Diagnoses Cerebrovascular accident (CVA), unspecified mechanism Procedures US Carotid Duplex Complete (Bilateral) Tan Son MD Phone: tel: fax: mailto: Referral ID Status Reason Start Date Expiration Date Visits Re quested Visits Authorized [id number] Closed 12/17/2021 12/17/2022 1 1 Encounter Details Date Type Department Care Team (Latest Contact Info) Description 12/17/2021 Transcribe Orders Virtual Department [address] [place] [address] Tan Son MD [address] [place] [address], [address] [place] [address] [email or web address] Cerebrovascular accident (CVA), unspecified mechanism (Primary [...] mechanism documented in this encounter Care Teams Traffic Signal Repairer Relationship Specialty Start Date End Date Tona Hook MD [address] [place] [address] PCP - General 05/04/17 05/27/23 Grabiel Kasper MD [address] [place] [address] PCP - General Family Medicine 05/28/23 documented as of this encounter Additional Source Comments The information contained in this document represents components of the legal health record. It is not the complete legal health record.[facility]
--- OUTSIDE RECORDS SUMMARY | 2025-07-10 06:47 | XMS_ITS | Encounter Summary ---
Author Organization [facility] Address [address] [place], [place] [phone] Phone Care Team Providers Care Cement And Concrete Plant Worker Name Role Phone Tona Hook MD Primary [...] BRAIN Tan Son MD Phone: tel: fax: mailto:[email or web address] Referral ID Status Reason Start Date Expiration Date Visits Re quested Visits Authorized [id number] Closed 09/08/2021 10/05/2021 1 1 Encounter Details Date Type Department Care Team (Latest Contact Info) Description 08/14/2021 Transcribe Orders Virtual Department [address] [place] [address] Tan Son MD [address] [place] [address], [address] [place] [address] [email or web address] Numbness of face (Primary Dx); Nausea; [...] numbness documented in this encounter Care Teams Cement And Concrete Plant Worker Relationship Specialty Start Date End Date Tona Hook MD [address] [place] [address] PCP - General 05/04/17 05/27/23 Grabiel Kasper MD [address] [place] [phone] PCP - General Family Medicine 05/28/23 documented as of this encounter Additional Source Comments The information contained in this document represents components of the legal health record. It is not the complete legal health record.[facility]
--- OUTSIDE RECORDS SUMMARY | 2025-07-10 06:47 | XMS_ITS ---
Author Organization [facility] [place] Address [address] [place] [address] Care Team Providers Care Nursery Hand Name Role Phone Grabiel Kasper MD Primary [...] 2:52 PM EST): Advised to rescheduled missed [facility] dermatology appt for routine surveillance Assessment & [...] meantime he should let him know his acreage reporter regarding the left- sided chest pain. I [...]
--- OUTSIDE RECORDS SUMMARY | 2025-07-10 06:47 | XMS_ITS | Encounter Summary ---
Author Organization [facility] Address [address] [place], [place] [id number] Phone Care Team Providers Care Flight Paramedic Name Role Phone Tona Hook MD Primary Care Provider + Grabiel Kasper MD Primary Care Pr ovider Encounter Details Date Type Department Care Team (Late st Contact Info) Description 08/14/2021 Procedure Pass [address] [address] Social History Tobacco Use Types Packs/Day Years [...] on filedocumented in this encounter Care Teams Flight Paramedic Relationship Specialty Start Date End Date Tona Hook MD [address] [place] [address] PCP - General 05/04/17 05/27/23 Grabiel Kasper MD [address] [place] [address] PCP - General Family Medicine 05/28/23 documented as of this encounter Additional Source Comments The information contained in this document represents components of the legal health record. It is not the complete legal health record.[facility]
--- OUTSIDE RECORDS SUMMARY | 2025-07-10 06:47 | XMS_ITS | Clinical Summary ---
Author Organization [facility] [place] Address [address] [place] [address] Care Team Providers Care Breaker Unit Assembler Name Role Phone Grabiel Kasper MD Primary [...] disorder with single episode, in partial remission ([facility] V24) Take 1 tablet (20 mg total) [...] pulmonary disease, unspecified COPD type (CMS/HCC V24, CMS/[facility] V28) Inhale 1 puff by mouth 1 [...] 1 02/06/20 25 025 Discontin ued(Reord er) Active Problems Problem Noted Date Diagnosed Date [...] 2:52 PM EST): Advised to rescheduled missed [place] dermatology appt for routine surveillance Assessment & [...] meantime he should let him know his unit secy regarding the left- sided chest pain. I [...] Encounters Date Type Department Care Team Description 07/04/[address] [phone] Grabiel Kasper MD 07/04/2025 Results Follow-Up [address] [phone] Grabiel Kasper MD 06/27/2025 Nurse Triage [address] [phone] Grabiel Kasper MD 06/21/2025 12:07 PM EST - 06/21/2025 11:59 PM EST Hospital Encounter Radiology Department [address] [phone] Gait abnormality Discharge Disposition: Home or Self Care 06/11/2025 2:00 PM EST Office Visit [address] [phone] Grabiel Kasper MD Longstanding persistent atrial fibrillation ([facility] V24, [facility] V28) (Primary Dx); Mild episode of recurrent major depressive disorder ([facility] V24); Essential hypertension, benign; Protein S deficiency ([facility] V24); Stage 1 mild COPD by GOLD classification ([facility]/HCC V24, CMS/HCC V28); Chronic venous insufficiency; Constipation, unspecified constipation type; Malignant melanoma, unspecified site (CMS/[facility] V24, [facility] V28); Coronary artery disease due to lipid rich plaque; Bilateral carotid artery stenosis; Cerebrovascular accident (CVA) due to other mechanism (CMS/HCC V24, [facility] V28); Gait abnormality; Benign prostatic hyperplasia with urinary frequency; Seizure disorder ([facility] V24, [facility] V28) 06/07/2025 9:45 AM EST Office Visit Orthopedics [address] [phone] Juve Menard PA Primary osteoarthritis of left knee (Primary Dx) 06/07/[address] [phone] Grabiel Kasper MD 06/04/2025 8:10 AM EST Lab Draw Station [address] Longstanding persistent atrial fibrillation (CMS/HCC V24, CMS/HCC V28); Mixed hyperlipidemia 06/04/2025 Results Follow-Up [address] [phone] Grabiel Kasper MD 05/17/[address] [phone] Grabiel Kasper MD 05/17/[address] [phone] Grabiel Kasper MD 05/07/2025 2:30 PM EDT Office Visit Orthopedic Surgery [address] [phone] Dank Rose, DPM Peripheral venous insufficiency (Primary Dx); Bilateral femoral artery stenosis (CMS/HCC V24); Dermatophytosis of nail; Primary osteoarthritis of both feet; Pain in toe of right foot; Pain in toe of left foot 04/17/2025 Telephone Adult Medicine [address] [phone] Marycruz Alonzo MA 04/17/2025 Telephone Adult [address] [phone] OgGrabiel covington MD from Last 3 Months Immunizations Immunization Administration Dates Next Due COVID-19 (Pfizer/Comirnaty) 12yo and older 04/14/2023 H1N1 Inj Preservative Free 09/23/2009 Hepatitis A Adult (Havrix; V aqta) 19yo and older 05/19/2017,10/08/2016 Hepatitis A-Hepatitis B Adul t (Twinrix) 18yo and older 05/19/2017,11/09/2016,10/08/2016 Hepatitis B (Mlrfpko-U-Wwkqi , Recombivax HB-Adult) 19yo and older 05/19/2017,11/09/2016,10/08/2016 [...] Date Site/Laterality Comments KNEE ARTHROPLASTY Left PROCEDURE: TN ARTHRS KNEE ABRASION ARTHRP/CITY BUS DRIVER DRLG/MICROFX; COMMENT: x 2 left SHOULDER ARTHROSCOPY PROCEDURE: TN SURGICAL ARTHROSCOPY SHOULDER W/LSS&RESCJ ADS HERNIA REPAIR 2004 PROCEDURE: REPAIR UMBILICAL HERNIA OTHER SURGICAL HISTORY PROCEDURE: TN BIOPSY LIVER NEEDLE PERCUTANEOUS HIP ARTHROPLASTY 05/2007 Left PROCEDURE: HISTORICAL HIP REPLACEMENT OTHER SURGICAL HISTORY 11/13/2005 PROCEDURE: COLON CA SCRN NOT HI RSK IND HERNIA REPAIR PROCEDURE: LAPAROSCOPY, INGUINAL HERNIA REPAIR Medical History Medical History Date Comments Acute hepatitis C without me ntion of hepatic coma(070.51) 11/16/2005 DX:Acute hepatitis C without mention of hepatic coma(070.51); COMMENT: BLOOD TRANSFUSION late 1959' for hemolytic anemia Obesity, unspecified 11/16/2005 DX:Obesity, unspecified Diverticulosis of colon (wit hout mention of hemorrhage) 11/16/2005 DX:Diverticulosis of colon ( without mention of hemorrhage) Acquired hemolytic anemia, u nspecified ([facility] V24, [facility] V28) age 29 DX:Acquired hemolytic anemi a, unspecified (HCC); COMMENT: Resolved - 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 Unspecified transient cerebr al ischemia 1997 DX:Unspecified transient cer ebral ischemia; COMMENT: Carotid US Mri normal 1997 Essential hypertension, benign 01/11/2006 D X:Essential hypertension, benign Chronic bronchitis [place] [place], [facility] V28) 09/23/2009 DX:Chronic bronchitis (HCC) Fibrosis of liver DX:Fibrosis of liver; COMMENT: 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 Chest pain, atypical DX:Chest pa in, atypical; COMMENT: admit to [facility]; neg stress MIBI Lab test negative for COVID-19 virus 10/25/2020 DX:Lab test negative for COVID- 19 virus Actinic keratoses 08/20/2022 DX:Actinic ker atoses Acute cough 12/16/2022 DX:Acute cough Diverticulitis of colon with out hemorrhage 11/16/2005 Hyperlipidemia Aortic aneurysm ([facility] V24) Atrial fibrillation ([facility] [place], [facility] V28) CVA (cerebral vascular accid ent) ([facility] V24, [facility] V28) Seizures [place] [place], [facility] V28) COPD (chronic obstructive pu lmonary disease) [place] [place], [facility] V28) Sleep apnea Family History Medical History [...] stomach can cer? Maternal Grandfather Maternal Grandmother [place] Mother CVA, DM, Bladde r problem Other Paternal Grandfather [place], Leg gangrene Paternal Grandmother Sister 1 Sister [...] 1:00 PM EST Office Visit Adult Medicine [address] [phone] Grabiel Kasper MD [address] [place], [place] 08/07/2025 9:45 AM EST Office Visit Orthopedic Surgery - [place] [address] [phone] Dank Rose, DPM [address] [phone] Health Maintenance Due Date Last [...] PT PT STG x 8 visits from [facility] 12/08/24 General No Lonnie Mackey, [...] from poor to fair PT STG Frome [facility] 12-08-24 General No Lonnie Mackey, PT Note: [x] = completed goal [] = NOT completed goal [] Pt will be able to perform sit<>supine without requiring UE support, [] Pt will be able to consistently negotiate stairs reciprocally , [] Pt will increased walking capacity to 1 hr to allow going to store Procedures Procedure Name Priority Date/Time Associated Diagnosis Comments MR BRAIN WO AND W CONTRAST Routine 06/21/2025 1:58 PM EST Gait abnormality TN ARTHROCENTESIS/ASPIRA TION/INJECTION MAJOR JOINT/BURSA W/O U/S GUIDANCE [...] V28) from Last 3 Months Results * MR Brain wo and w Contrast (06/21/2025 1:58 PM EST) Anatomical Region Laterality Modality Head and Neck Magnetic Resonan ce 07/03/2025 8:59 PM EST Impressions 07/03/2025 9:15 PM EST Mild white matter disease. Mild generalized atrophy. No acute intracranial pathology. -------- FINAL REPORT -------- Dictated By: Laine Hess Dictated Date: 07/03/2025 20:59 ET Assigned Physician: Laine Hess Reviewed and Electronically Signed By: Laine Hess Signed Date: 07/03/2025 21:15 ET Workstation ID: [id number] Transcribed By: Self Edit Transcribed Date: 07/03/2025 20:59 ET Narrative 07/03/2025 9:15 PM EST MR BRAIN WO AND W CONTRAST MRI BRAIN WITH AND WITHOUT CONTRAST HISTORY: Abnormal gait. Dizziness in walking. COMPARISON: Brain MRI 12/03/2022. Technique: MRI of the brain with and without contrast was performed utilizing the standard departmental protocol. [20] cc IV Dotarem was administered to the patient. FINDINGS: There are mild patchy and confluent areas of T2/FLAIR prolongation in the periventricular, deep and subcortical white matter. The ventricles and sulci are prominent. The ventricles and sulci are symmetric. There is no acute intracranial hemorrhage or acute infarct. There is no mass effect or midline shift. The basal cisterns are patent. There is no abnormal parenchymal enhancement. There is fluid signal in some of the left mastoid air cells. The paranasal sinuses and mastoid air cells are otherwise clear. There is no abnormality at the foramen magnum. Pituitary gland is grossly unremarkable. Infundibulum is midline. Incidental note is made of arachnoid granulations in the transverse sinus on the post contrast sequences. There is no abnormal parenchymal enhancement. Procedure Note Laine Hess MD - 07/03/2025 MR BRAIN WO AND W CONTRAST MRI BRAIN WITH AND WITHOUT CONTRAST HISTORY: Abnormal gait. Dizziness in walking. COMPARISON: Brain MRI 12/03/2022. Technique: MRI of the brain with and without contrast was performedutilizing the standard departmental protocol. [20] cc IV Dotarem wasadministered to the patient. FINDINGS: There are mild patchy and confluent areas of T2/FLAIR prolongation in theperiventricular, deep and subcortical white matter. The ventricles and sulci are prominent. The ventricles and sulci aresymmetric. There is no acute intracranial hemorrhage or acute infarct.There is no mass effect or midline shift. The basal cisterns are patent.There is no abnormal parenchymal enhancement. There is fluid signal in some of the left mastoid air cells. The paranasalsinuses and mastoid air cells are otherwise clear. There is no abnormality at the foramen magnum. Pituitary gland is grossly unremarkable. Infundibulum is midline. Incidental note is made of arachnoid granulations in the transverse sinuson the post contrast sequences. There is no abnormal parenchymal enhancement. IMPRESSION: Mild white matter disease. Mild generalized atrophy. No acute intracranialpathology. -------- FINAL REPORT -------- Dictated By: Laine Hess Dictated Date: 07/03/2025 20:59 ET Assigned Physician: Laine Hess Reviewed and Electronically Signed By: Laine Hess Signed Date: 07/03/2025 21:15 ET Workstation ID: [id number] Transcribed By: Self Edit Transcribed Date: 07/03/2025 20:59 ET Grabiel Kasper MD IMG MRI PROCEDUR ES Final Result * TN ARTHROCENTESIS/ASPIRATION/INJECTION MAJOR JOINT/BURSA W/O U/S GUIDANCE (06/07/2025 [...] to direct LDL (06/04/2025 8:18 AM EST) Cholesterol 132 0 - 200 mg/dL LAB CHEMISTRY METHOD 06/04/2025 11:37 AM EST [facility] Triglycerides 73 0 - 150 mg/dL LAB CHEMISTRY METHOD 06/04/2025 11:37 AM EST [facility] HDL 62 >=40 mg/dL LAB CHEMISTRY METHOD 06/04/2025 11:37 AM [facility] LDL Calculated 55 0 - 100 mg/dL LAB CHEMISTRY METHOD 06/04/2025 11:37 AM EST [facility] Comment:Estimated LDL Calcul ated [...] Result [facility] [address] [place] [address], * (ABNORMAL) CBC auto differential (06/04/2025 8:18 AM EST) WBC 5.3 4.8 - 10.8 K/mcL LAB [...] K/mcL LAB HEMETOLOGY METHOD 06/04/2025 10:53 AM EST [facility] Lymphocytes Absolute 0.97(L) 1.00 - 5.00 K/[facility] LAB HEMETOLOGY METHOD 06/04/2025 10:53 AM EST [facility] Monocytes Absolute 0.41 0.20 - 1.00 K/[facility] HEMETOLOGY METHOD 06/04/2025 10:53 AM EST [facility] Eosinophils Absolute 0.18 0.00 - 0.50 K/[facility] HEMETOLOGY METHOD 06/04/2025 10:53 AM EST [facility] Basophils Absolute 0.05 0.00 - 0.20 K/[facility] HEMETOLOGY METHOD 06/04/2025 10:53 AM [facility] Immature Granulocytes Absolute 0.03 0.00 - 0.03 K/[facility] HEMETOLOGY METHOD 06/04/2025 10:53 AM EST [facility] Blood Venous blood specimen / Unknown Venipuncture / Unknown 06/04/2025 8:18 AM EST 06/04/2025 8:18 AM EST Grabiel Kasper MD LAB BLOOD ORDERA BLES Final Result [facility] [address] [place] [address], * Hemoglobin A1c (06/04/2025 8:18 AM EST) Hemoglobin A1C 5.4 <6.5 % LAB CHEMISTRY METHOD 06/04/2025 11:50 AM EST [facility] Mean Bld Glu Estim. 108 mg/dL LAB CHEMISTRY METHOD 06/04/2025 11:50 AM EST [facility] Blood Venous blood specimen / Unknown Venipuncture / Unknown 06/04/2025 8:18 AM EST 06/04/2025 8:18 AM EST Grabiel Kasper MD LAB BLOOD ORDERA BLES Final Result [facility] [address] [place] [address], [place] [phone] * (ABNORMAL) Comprehensive metabolic panel (06/04/2025 8:18 AM EST) Sodium 140 133 - 145 mmol/L LAB [...] Result [facility] [address] [place] [address], from Last 3 Months Insurance [employer] Care Teams Breaker Unit Assembler Relationship Specialty Start Date End Date Grabiel Kasper MD [address] [facility], [place] PCP - General Internal Medicine 02/02/22
--- OUTSIDE RECORDS SUMMARY | 2025-07-10 06:47 | XMS_ITS | Encounter Summary ---
Author Organization [facility] Address [address] [place], [place] [phone] Phone Care Team Providers Care Snack Bar Attendant Name Role Phone Tona Hook MD Primary Care Provider + Grabiel Kasper MD Primary Care Pr ovider Encounter Details Date Type Department Care Team (Late st Contact Info) Description 12/07/2017 Ancillary Orders Virtual Department [address] [place] [address] Miguelangel Sharma MD [address] [place] [phone] Aching pain Social History Tobacco Use Types [...] narrowing from C4-5 through C6-7. POS - [id number] Edited by: Jenelle Unger on 12/15/2017 7:23 [...] foraminalnarrowing from C4-5 through C6-7. POS - [id number] Edited by: Jenelle Unger on 12/15/2017 7:23 [...] documented as of this encounter Care Teams Snack Bar Attendant Relationship Specialty Start Date End Date Tona Hook MD [address] [place] [address] PCP - General 05/04/17 05/27/23 Grabiel Kasper MD [address] [place] [address] PCP - General Family Medicine 05/28/23 documented as of this encounter Additional Source Comments The information contained in this document represents components of the legal health record. It is not the complete legal health record.[facility]
--- OUTSIDE RECORDS SUMMARY | 2025-07-10 06:48 | XMS_ITS | Encounter Summary ---
Author Organization [facility] [place] [address] Care Team Providers Care Armature Bander Name Role Phone Grabiel Kasper MD Primary Care Pr ovider Reason for Visit * Reason Onset Date Comments faxed order 06/07/2025 Powerback group PT eval Encounter Details Date Type Department Care Team (Late st Contact Info) Description 06/07/2025 Telephone Adult Medicine [address] [phone] Grabiel Kasper MD [address] [place] [address] Social History Tobacco Use Types Packs/Day Years [...] as of this encounter Progress Notes * Snow Denson MA - 07/09/2025 12:43 PM EST Signed and faxed. Copy scanned. * Sinaifide Stanton - 06/07/2025 8:53 AM EST Powerback group PT eval received please sign and fax to [phone] documented in this encounter Plan of Treatment Upcoming Encounters Date Type Department Care Team (Late st Contact Info) Description 07/26/2025 1:00 PM EST Office Visit Adult Medicine [facility] [address] [place] [address] Grabiel Kasper MD [address] [place] [address] 08/07/2025 9:45 AM EST Office Visit Orthopedic Surgery - [place] [address] [phone] Dank Rose, DPM [address] [phone] documented as of this encounter Goals Goal Patient Goal Type Associated Problems Recent Progress Patient-Stated? Author No pain General Yes Lonnie Mackey, PT PT STG x 8 visits from eval 12/08/24 General No Lonnie Mackey, PT Note: [...] on filedocumented in this encounter Care Teams Armature Bander Relationship Specialty Start Date End Date Grabiel Kasper MD [address] [place], [place] PCP - General Internal Medicine 02/02/22 documented as of this encounter
--- OUTSIDE RECORDS SUMMARY | 2025-07-10 06:48 | XMS_ITS | Encounter Summary ---
Author Organization [facility] Address [address] [place], [place] [phone] Phone Care Team Providers Care Thoroughbred Horse Farm Manager Name Role Phone Tona Hook MD Primary Care Provider + Grabiel Kasper MD Primary Care Pr ovider Encounter Details Date Type Department Care Team (Late st Contact Info) Description 12/07/2017 Procedure Pass [facility], [address] [address] Social History Tobacco Use Types Packs/Day Years [...] documented as of this encounter Care Teams Thoroughbred Horse Farm Manager Relationship Specialty Start Date End Date Tona Hook MD [address] [place] [address] PCP - General 05/04/17 05/27/23 Grabiel Kasper MD [address] [place] [address] PCP - General Family Medicine 05/28/23 documented as of this encounter Additional Source Comments The information contained in this document represents components of the legal health record. It is not the complete legal health record.[facility]
--- OUTSIDE RECORDS SUMMARY | 2025-07-10 06:48 | XMS_ITS | Encounter Summary ---
Author Organization [facility] Address [address] [place] [address] Care Team Providers Care Capping Machine Operator Name Role Phone Grabiel Kasper MD Primary Care Pr ovider Encounter Details Date Type Department Care Team (Late st Contact Info) Description 07/04/2025 Results Follow-Up [address] [phone] Grabiel Kasper MD [address] [place] [address] Social History Tobacco Use Types Packs/Day Years [...] EST Office Visit Adult Medicine [place] - [place] [address] [place], [place] [phone] Grabiel Kasper MD [address] [place], [place] 08/07/2025 9:45 AM EST Office Visit Orthopedic Surgery - [place] [address] [phone] Dank Rose, DPM [address] [phone] documented as of this encounter Goals Goal Patient Goal Type Associated Problems Recent Progress Patient-Stated? Author No pain General Yes Lonnie Mackey, PT PT STG x 8 visits from [facility] 12/08/24 General No Lonnie Mackey, [...] from poor to fair PT STG Frome [facility] 12-08-24 General No Lonnie Mackey, [...] documented as of this encounter Care Teams Capping Machine Operator Relationship Specialty Start Date End Date Grabiel Kasper MD [address] [facility], [place] PCP - General Internal Medicine 02/02/22 documented as of this encounter
--- OUTSIDE RECORDS SUMMARY | 2025-07-10 06:48 | XMS_ITS | Encounter Summary ---
Author Organization [facility] [place] [address] Care Team Providers Care Financial Management Analyst Name Role Phone Grabiel Kasper MD Primary Care Pr ovider Reason for Visit * Reason Onset Date Comments ER Follow up 07/04/2025 Encounter Details Date Type Department Care Team (Late st Contact Info) Description 07/04/2025 Telephone Adult Medicine [address] [phone] Grabiel Kasper MD [address] [place] [address] Social History Tobacco Use Types Packs/Day Years [...] Progress Notes * Johanne Cueva RN - 07/05/2025 9:23 AM EST Called and spoke to Devora teague's daughter. She states pt had a chest x-ray in the hospital as well as an ultrasound of his leg. He was diagnosed with the flu and has a blood clot in his leg. She states he is on anticoagulants. He is taking Xarelto 20 mg daily. He was prescribed antibiotics. His symptoms are improving per daughter. She was advised to monitor pt and take him to the ER or an UCC for any new or worsening symptoms. She is in agreement with this plan. * Constanza Tabor - 07/04/2025 2:22 PM EST Hospital/ER follow up appointment needed Hospital patient was treated at: [facility] Was this only an ER visit or was the patient admitted to the hospital? ER Visit only Date of visit if ER visit only: 07/03/25 If patient was admitted what was the date of discharge? N/A Reason/diagnosis for visit or stay: Cough, Phlegm, Difficulty breathing / Diagnosis: Flu When was the patient told to follow up? 1-2 Days Was visit or stay related to an injury? If yes, what was the date of injury (DOI)? No If yes, was the injury due to: Not 3rd alliance party related documented in this encounter Plan of Treatment Upcoming Encounters Date Type Department Care Team (Late st Contact Info) Description 07/26/2025 1:00 PM EST Office Visit Adult Medicine [address] [phone] Grabiel Kasper MD [address] [place] [address] 08/07/2025 9:45 AM EST Office Visit Orthopedic Surgery - [place] [employer] [address] [address] Dank Rose DPM [address] [phone] documented as of this encounter Goals Goal Patient Goal Type Associated Problems Recent Progress Patient-Stated? Author No pain General Yes Lonnie Mackey, PT PT STG x 8 visits from [facility] 12/08/24 General No Lonnie Mackey, PT [...] from poor to fair PT STG Frome [facility] 12-08-24 General No Lonnie Mackey, PT [...] documented as of this encounter Care Teams Financial Management Analyst Relationship Specialty Start Date End Date Grabiel Kasper MD [address] [facility], [place] PCP - General Internal Medicine 02/02/22 documented as of this encounter
--- OUTSIDE RECORDS SUMMARY | 2025-07-10 06:48 | XMS_ITS | Encounter Summary ---
Author Organization [facility] Address [address] [place] [address] Care Team Providers Care [employer] Name Role Phone Grabiel Kasper MD Primary Care Pr ovider Encounter Details Date Type Department Care Team (Late st Contact Info) Description 06/04/2025 Results Follow-Up [address] [phone] Grabiel Kasper MD [address] [place] [address] Social History Tobacco Use Types Packs/Day Years [...] EST Office Visit [facility] [place] [address] [place], [place] [phone] Grabiel Kasper MD [address] [place], [place] 08/07/2025 9:45 AM EST Office Visit Orthopedic Surgery - [place] [id number] [phone] Dank Rose, DPM [address] [phone] documented as of this encounter Goals Goal Patient Goal Type Associated Problems Recent Progress Patient-Stated? Author No pain General Yes Lonnie Mackey, PT PT STG x 8 visits from [facility] 12/08/24 General No Lonnie Mackey, [...] from poor to fair PT STG Frome [facility] 12-08-24 General No Lonnie Mackey, [...] on filedocumented in this encounter Care Teams [employer] Relationship Specialty Start Date End Date Grabiel Kasper MD [address] [place], [place] PCP - General Internal Medicine 02/02/22 documented as of this encounter
--- NOTE | 2025-07-10 06:56 | ED_ITS ---
HPI - General Adult General Chief complaint: General Medical Stated complaint: GROIN PAIN X2W,NO BM X2D PER EMS Time Seen by Provider: 07/10/25 06:49 Source: patient Mode of arrival: ambulatory Limitations: no limitations History of Present Illness ED Provider: DR. Mak HPI narrative: 84-year-old male PMHx CAD, paroxysmal AFib on Xarelto, seizure disorder, and HTN came in for evaluation of 2 days of right groin pain, no nausea, vomiting, no fever, no chillsno palpable mass, had 1 small bowel movement yesterday, not passing flatus, declined any history of intra-abdominal surgery. pain is worsening with coughing or walking, no clear relieving factor. Related Data Home Medications ?Medication ?Instructions ?Recorded ?Confirmed albuterol sulfate 90 mcg/actuation 2 puff inhalation Q 4H PRN wheezing 12/12/20 02/02/25 aerosol inhaler ascorbic acid (vitamin C) 500 mg 500 mg PO DAILY 05/2202/02/25 capsule atorvastatin 20 mg tablet 20 mg PO DAILY 11/25/2101/16 tamsulosin 0.4 mg capsule 0.4 mg PO BID 11/25/2102/02 carboxymethylcellulose sodium 0.5 1 drp ophthalmic (ey e) TID PRN Dry 03/12/22 02/02/25 % eye drops Eye(S) citalopram 40 mg tablet 40 mg PO DAILY 04/19/2301/16 levetiracetam 1,000 mg tablet 750 mg PO BID 04/19/23 0 02/02/25 nitroglycerin 0.3 mg sublingual 0.3 mg sublingual Q5M 12/02/23 02/02/25 tablet topiramate 25 mg tablet 25 mg PO DAILY 01/07/2501/16 Previous Rx's ?Medication ?Instructions ?Recorded diltiazem HCl 180 mg 180 mg PO DAILY #90 caps 02/09 capsule,extended release 24 hr isosorbide mononitrate 30 mg 30 mg PO DAILY #90 tabs 0 02/02/25 tablet,extended release 24 hr rivaroxaban 20 mg tablet (Xarelto) 20 mg PO QPM #90 ta bs 04/26/25 doxycycline hyclate 100 mg tablet 100 mg PO BID 5 days #10 tabs 07/03/25 Allergies Allergy/AdvReac Type Severity Reaction Status Date / Time penicillin V Allergy Severe Hives Verified 07/10/25 06:20 piroxicam (PIROXICAM) Allergy Intermediate HIVES/SOB Verified 07/10/25 06:20 rofecoxib (From VIOXX) Allergy Intermediate HIVES/SOB Verified 07/10/25 06:20 Penicillins (PENICILLINS) Allergy Unknown UNKNOWN Verified 07/10/25 06:20 phenacetin (PHENACETIN) Allergy Unknown UNK Verified 07/10/25 06:20 From VICODIN Allergy Intermediate HIVES/SOB Uncoded 07/10/25 06:20 Review of Systems 2 Review of Systems: all other systems are reviewed and are negative Constitutional: Reports as per HPI and Reports no additional constitutional complaints Eyes: Reports as per HPI and Reports no additional eye complaints Reports system reviewed and no additional complaints, except as documented Cardiovascular: Reports as per HPI and Reports no additional cardiovascular complaints Respiratory: Reports as per HPI and Reports no additional respiratory complaints Gastrointestinal: Reports as per HPI and Reports no additional gastrointestinal complaints Genitourinary: Reports no additional female genitourinary complaints Musculoskeletal: Reports no additional musculoskeletal complaints Skin/Breast: Reports system reviewed and no additional complaints, except as docu Psychiatric: Reports no additional psychiatric complaints Endocrine: Reports no additional endocrine complaints Hematologic/Lymphatic: Reports no additional hematologic/lymphatic complaints Allergic/Immunologic: Reports no additional allergic/immunologic complaints Reports system reviewed and no additional complaints, except as documented and Reports Abnormal speech present PMFSH Past Medical History Medical History Paroxysmal atrial fibrillation HTN (hypertension) CAD (coronary artery disease) Class 1 obesity Chronic anticoagulation CAD (coronary artery disease) Seizure disorder Surgical History History of left knee surgery History of right hip replacement History of ear surgery S/P skin biopsy Social History Social History Household Members: None Housing: House Do you presently have visiting nurse or other home services: No Alcohol intake: current Alcohol intake frequency: holidays/special occasions only Alcohol type: beer Comment: pt refusing bed alarm Patient Tobacco Use Status: Former Tobacco user Years Smoked: 30 +/- Smoked in Last 30 Days: No Use of substances other than those prescribed or required for medical reasons: No Advance Directives: Yes Advance Directives on File: Yes Advance Directives Date on File: 01/10/25 service: No Physical Exam ED Vital Signs: Vital Signs - 24 hr 07/10/25 06:18 07/10/25 08:03 07/10/25 09:40 Temperature 97.5 F 97.6 F 98.1 F Pulse Rate 70 72 62 Respiratory Rate 18 16 21 H Blood Pressure 136/64 134/60 148/65 H Pulse Oximetry 92 93 93 Oxygen Delivery Method Room Air Room Air Room Air BMI result Body Mass Index 32.4 Vital signs have been reviewed and appear to be correct. Blood pressure elevated. Heart rate normal. Respiratory rate normal. Temperature normal. Oxygen saturation normal. Appearance: Alert. Oriented X3. No acute distress. Head: Normal external exam. Normocephalic. Atraumatic. No Morrow signs noted. No raccoon eyes noted Eyes: PERRLA. EOMI. Conjunctiva and sclera normal. Eyelids normal. ENT: TM's Normal. Pharynx normal. Uvula midline. Moist mucous membranes. No trismus noted. No drooling noted. No muffled voice noted. Neck: Normal inspection. Neck supple. FROM. No adenopathy. Thyroid Normal. No meningeal signs. No neck mass noted. CVS: Normal heart rate and rhythm. Heart sound normal. No murmurs noted. Pulses normal throughout. Respiratory: No respiratory distress. Painless inspiration. Breath sounds normal. No wheezes/rales/rhonchi noted. Chest nontender. No accessory muscle usage noted or decreased air movement noted. Abdomen: Soft and nontender. Bowel sounds normal in all 4 quadrants. No distention noted. No organomegaly noted. No visible injury noted. Back: No CVA tenderness. Full range of motion noted. Skin: Skin warm and dry. Normal skin color. Normal skin turgor. No rashes/lesions/lacerations noted. Extremities: No lower extremity edema. Extremities exhibit normal range of motion. Extremities nontender. Neuro: Oriented X 3. Cranial nerve exam: II-XII are grossly intact No motor deficit. No sensory deficit. Reflexes normal. Course Reevaluation(s) Reevaluation #1: 84-year-old male on Xarelto for DVT came in with right-sided abdominal pain, CT is showing right lower rectus sheath hematoma measuring 7x 6 cm that appeared to be stable, patient had stable H&H while is here and stable vital signs otherwise no tachycardia, no hypotension,Patient's symptoms started 2 days ago. Time: 12:07 Medications Administered Discontinued Medications Generic Name Dose Route Start Last Admin Trade Name Freq PRN Reason Stop Dose Admin Iohexol 100 ml 07/10/25 08:52 07/10/25 08:52 Iohexol 350 Mg/Ml 100 Ml Infus..Btl IV 07/10/25 08:53 85 ml ONCE ONE Administration Medical Decision Making Differential Diagnosis Differential Diagnoses: The differential diagnosis associated with the presentation includes ( Colitis, diverticulitis, acute appendicitis, rectus sheath hematoma, pancreatitis, anemia, electrolyte derangement.) Admission/Observation Consideration of admission/observation: Escalation of care including admission/observation considered Lab Data MDM Lab Attestation statement: I reviewed the patient's lab results. 07/10/25 11:18 07/10/25 07:29 Labs: Lab Results 07/10/25 07/10/25 07/10/25 Range/Units 07:29 07:30 09:42 WBC 3.4 L (4.8-10.8) X10*3/uL RBC 4.02 L (4.60-5.80) X10*6/uL Hgb 12.9 L (14.0-18.0) g/dl Hct 37.6 L (42.0-52.0) % MCV 93.5 (80.0-98.0) fL MCH 32.1 (27.0-33.0) pg MCHC 34.3 (31.0-36.0) g/dl RDW 14.2 (11.0-16.0) % Plt Count 140 L (160-400) X10*3/uL MPV 9.7 (9.4-12.4) fL Immature Gran % (Auto) 0.6 H (0.0-0.4) % Neut % (Auto) 67.5 (45-73) % Lymph % (Auto) 19.8 L (20-40) % [place] % (Auto) 7.4 (2-11) % Eos % (Auto) 4.1 H (0-4) % Baso % (Auto) 0.6 (0-2) % Lymph # (Auto) 0.7 L (1.2-4.9) X10*3/uL [place] # (Auto) 0.3 (0.1-1.2) X10*3/uL Eos # (Auto) 0.1 (0.0-0.4) X10*3/uL Baso # (Auto) 0.0 (0.0-0.2) X10*3/uL Abs Immat Gran (auto) 0.02 (0.00-0.03) X10*3/uL Absolute Neuts (auto) 2.3 (2.0-8.3) x10*3/uL Absolute Nucleated RBC 0.000 (0.0-0.012) X10*3/uL Nucleated RBC % (auto) 0.0 (0.0-0.2) /100WBC PT 22.6 H (11.2-13.5) SEC INR 1.9 H (0.9-1.1) Sodium 142 (135-145) mmol/L Potassium 3.8 (3.3-5.1) mmol/L Chloride 110 H (96-108) mmol/L Carbon Dioxide 24 (22-29) mmol/L Anion Gap 12 (12-20) BUN 17 H (9-16) mg/dL Creatinine 0.67 (0.5-1.4) mg/dL Estim Creat Clear Calc 95.4 Estimated GFR > 60 Random Glucose 109 (60-115) mg/dL Lactic Acid 1.1 (0.5-2.0) mmol/L Calcium 8.7 (8.4-10.2) mg/dL Total Bilirubin 0.5 (0.0-1.0) mg/dL Direct Bilirubin 0.3 (0.0-0.5) mg/dL AST 40 H (5-37) U/L ALT 21 (0-40) U/L Alkaline Phosphatase 50 (39-117) U/L Total Protein 6.3 L (6.5-8.0) g/dL Albumin 3.8 (3.5-5.0) g/dL Lipase 8 (8-78) U/L Urine Color Yellow Urine Appearance Clear Urine pH 7.0 (5.0-9.0) Ur Specific [place] >= 1.030 H (1.005-1.025) Urine Protein Negative (Neg-Trace) mg/dL Urine Glucose (UA) Negative (Negative) mg/dL Urine Ketones Negative (Negative) mg/dL Urine Blood Negative (Negative) Urine Nitrite Negative (Negative) Ur Leukocyte Esterase Negative (Negative) 07/10/25 Range/Units 11:18 WBC 3.2 L (4.8-10.8) X10*3/uL RBC 4.01 L (4.60-5.80) X10*6/uL Hgb 12.8 L (14.0-18.0) g/dl Hct 37.5 L (42.0-52.0) % MCV 93.5 (80.0-98.0) fL MCH 31.9 (27.0-33.0) pg MCHC 34.1 (31.0-36.0) g/dl RDW 14.1 (11.0-16.0) % Plt Count 154 L (160-400) X10*3/uL MPV 9.8 (9.4-12.4) fL Immature Gran % (Auto) 0.3 (0.0-0.4) % Neut % (Auto) 62.1 (45-73) % Lymph % (Auto) 24.1 (20-40) % [place] % (Auto) 9.1 (2-11) % Eos % (Auto) 4.1 H (0-4) % Baso % (Auto) 0.3 (0-2) % Lymph # (Auto) 0.8 L (1.2-4.9) X10*3/uL [place] # (Auto) 0.3 (0.1-1.2) X10*3/uL Eos # (Auto) 0.1 (0.0-0.4) X10*3/uL Baso # (Auto) 0.0 (0.0-0.2) X10*3/uL Abs Immat Gran (auto) 0.01 (0.00-0.03) X10*3/uL Absolute Neuts (auto) 2.0 (2.0-8.3) x10*3/uL Absolute Nucleated RBC 0.000 (0.0-0.012) X10*3/uL Nucleated RBC % (auto) 0.0 (0.0-0.2) /100WBC PT (11.2-13.5) SEC INR (0.9-1.1) Sodium (135-145) mmol/L Potassium (3.3-5.1) mmol/L Chloride (96-108) mmol/L Carbon Dioxide (22-29) mmol/L Anion Gap (12-20) BUN (9-16) mg/dL Creatinine (0.5-1.4) mg/dL Estim Creat Clear Calc Estimated GFR Random Glucose (60-115) mg/dL Lactic Acid (0.5-2.0) mmol/L Calcium (8.4-10.2) mg/dL Total Bilirubin (0.0-1.0) mg/dL Direct Bilirubin (0.0-0.5) mg/dL AST (5-37) U/L ALT (0-40) U/L Alkaline Phosphatase (39-117) U/L Total Protein (6.5-8.0) g/dL Albumin (3.5-5.0) g/dL Lipase (8-78) U/L Urine Color Urine Appearance Urine pH (5.0-9.0) Ur Specific [place] (1.005-1.025) Urine Protein (Neg-Trace) mg/dL Urine Glucose (UA) (Negative) mg/dL Urine Ketones (Negative) mg/dL Urine Blood (Negative) Urine Nitrite (Negative) Ur Leukocyte Esterase (Negative) Independent Interpretation I performed an independent interpretation of an: CT Scan ( Abdomen and pelvis:Right rectus sheath hematoma as described. ) Radiology Impression Discussion of test interpretation with radiology: I have reviewed the radiologist's reading. Discharge Plan Discharge Clinical Impression: Hematoma of rectus sheath Patient Disposition: Home, Self-Care Instructions: Abdominal Pain (ED) Additional Instructions: seek immediate medical attention if increased abdominal pain, discoloration of the skin of your abdomen black and blue, nausea, vomiting, or fever. Prescriptions: No Action diltiazem HCl 180 mg capsule,extended release 24hr 180 mg PO DAILY Qty: 90 3RF Xarelto 20 mg tablet 20 mg PO QPM Qty: 90 3RF doxycycline hyclate 100 mg tablet 100 mg PO BID 5 Days Qty: 10 0RF topiramate 25 mg tablet 25 mg PO DAILY albuterol sulfate 90 mcg/actuation HFA aerosol inhaler 2 puff inhalation Q4H PRN (Reason: wheezing) ascorbic acid (vitamin C) 500 mg capsule 500 mg PO DAILY tamsulosin 0.4 mg capsule 0.4 mg PO BID atorvastatin 20 mg tablet 20 mg PO DAILY carboxymethylcellulose sodium 0.5 % drops 1 drp ophthalmic (eye) TID PRN (Reason: Dry Eye(S)) levetiracetam 1,000 mg tablet 750 mg PO BID nitroglycerin 0.3 mg tablet, sublingual 0.3 mg sublingual Q5M isosorbide mononitrate 30 mg tablet extended release 24 hr 30 mg PO DAILY Qty: 90 0RF citalopram 40 mg tablet 40 mg PO DAILY Referrals: Grabiel Kasper MD [Primary Care Provider, Family Practice] Print Language: Georgian
[2025-07-10 07:35] LABS: MANUAL DIFF FLAG NO
[2025-07-10 07:36] LABS: Hematocrit 37.6 % (42.0-52.0); Hemoglobin 12.9 g/dl (14.0-18.0); Imm Gran Abs Auto 0.02 X10*3/uL (0.00-0.03); Imm Gran Pct Auto 0.6 % (0.0-0.4); Lymphocytes Absolute Auto 0.7 X10*3/uL (1.2-4.9); Mean Corpuscular HGB Conc 34.3 g/dl (31.0-36.0); Mean Corpuscular Hemoglobin 32.1 pg (27.0-33.0); Mean Corpuscular Volume 93.5 fL (80.0-98.0); NRBC Abs Auto 0.000 X10*3/uL (0.0-0.012); NRBC Pct Auto 0.0 /100WBC (0.0-0.2); Platelet Count 140 X10*3/uL (160-400); Red Blood Count 4.02 X10*6/uL (4.60-5.80); White Blood Count 3.4 X10*3/uL (4.8-10.8)
[2025-07-10 07:49] LABS: INTERNATIONAL NORM RATIO 1.9 (0.9-1.1); Prothrombin Time 22.6 SEC (11.2-13.5)
[2025-07-10 07:54] LABS: Alanine Aminotransferase 21 U/L (0-40); Albumin Level 3.8 g/dL (3.5-5.0); Alkaline Phosphatase 50 U/L (39-117); Anion Gap 12 (12-20); Aspartate Amino Transferase 40 U/L (5-37); Blood Urea Nitrogen 17 mg/dL (9-16); Calcium 8.7 mg/dL (8.4-10.2); Carbon Dioxide 24 mmol/L (22-29); Chloride 110 mmol/L (96-108); Creatinine Clr Calc Pharmacy 95.4; Estimated Glomerular Filt Rate > 60; Lipase 8 U/L (8-78); Potassium 3.8 mmol/L (3.3-5.1); Sodium 142 mmol/L (135-145); Total Protein 6.3 g/dL (6.5-8.0)
[2025-07-10 08:03] VITALS: BP 134/60; PULSE 72; RESP 16; TEMP 36.4; O2SAT 93
--- NOTE | 2025-07-10 08:23 | PC.NURSE ---
patient a&ox3, iv inserted, labs drawn, patient navigator applied-sinus erika on monitor, pt c/o 8/10 groin area pain, rr equal/non labored- lungs diminished/clear- pt has dry cough states he recently had the flu and the cough was lingering. call herrera within reach, plan of care ongoing.
[2025-07-10] MEDS: iohexoL 350 MG/ML 100 ML INFUS..BTL IV (08:52)
[2025-07-10 09:40] VITALS: BP 148/65; PULSE 62; RESP 21; TEMP 36.7; O2SAT 93
[2025-07-10 09:55] LABS: Appearance Urine Clear; Glucose Urine UA Negative (Negative); PH 7.0 (5.0-9.0); Specific Gravity - Urine >= 1.030 (1.005-1.025)
[2025-07-10 11:23] LABS: MANUAL DIFF FLAG NO
[2025-07-10 11:26] LABS: Hematocrit 37.5 % (42.0-52.0); Hemoglobin 12.8 g/dl (14.0-18.0); Imm Gran Abs Auto 0.01 X10*3/uL (0.00-0.03); Imm Gran Pct Auto 0.3 % (0.0-0.4); Lymphocytes Absolute Auto 0.8 X10*3/uL (1.2-4.9); Mean Corpuscular HGB Conc 34.1 g/dl (31.0-36.0); Mean Corpuscular Hemoglobin 31.9 pg (27.0-33.0); Mean Corpuscular Volume 93.5 fL (80.0-98.0); NRBC Abs Auto 0.000 X10*3/uL (0.0-0.012); NRBC Pct Auto 0.0 /100WBC (0.0-0.2); Platelet Count 154 X10*3/uL (160-400); Red Blood Count 4.01 X10*6/uL (4.60-5.80); White Blood Count 3.2 X10*3/uL (4.8-10.8)
[2025-07-10 12:13] VITALS: BP 127/64; PULSE 59; RESP 16; O2SAT 95
[2025-07-10 12:42] VITALS: BP 127/64; PULSE 59; RESP 16; TEMP 36.8; O2SAT 95
== END 2025-07-10 12:43 | disposition home or self-care (01) ==
PROVIDERS: Emergency Provider Emergency Medicine; PCP Family Medicine
DX: S30.11XA Contusion of abdominal wall, initial encounter (principal); I48.0 Paroxysmal atrial fibrillation; I10 Essential (primary) hypertension; G40.909 Epilepsy, unspecified, not intractable, without status epilepticus; Z79.01 Long term (current) use of anticoagulants; X58.XXXA Exposure to other specified factors, initial encounter; Y93.89 Activity, other specified; Y92.89 Other specified places as the place of occurrence of the external cause; Y99.8 Other external cause status; Z79.899 Other long term (current) drug therapy
CPT/HCPCS: 36415; 74177; 80048; 80076; 81003; 83605; 83690; 85025; 85610; 99284; 99285; Q9967

== ENCOUNTER → 2025-07-10 06:53 | Outpatient (BNV) | payer OTHER, SELFPAY | PROVIDERS: Emergency Provider Emergency Medicine; PCP Family Medicine; Visit Provider Radiology Diagnostic Radiology | DX: S36.32XA Contusion of stomach, initial encounter (principal) | CPT/HCPCS: 74177 ==

== ENCOUNTER 2025-07-15 09:15 | Emergency (ER) | payer OTHER, SELFPAY ==
--- OUTSIDE RECORDS SUMMARY | 2021-06-02 14:35 | XMS_ITS | Encounter Summary ---
Author Organization [facility] Address [address] [place] [phone] Phone Care Team Providers Care Flight Dynamicist Name Role Phone Tona Hook MD Primary Care Provider + Encounter Details Date Type Department Care Team (Late st Contact Info) Description 06/02/2021 2:35 PM EST Hospital Encounter [facility] [address] [place] [phone] Jessi Davis PA [address] [phone] [email or web address] Social History Tobacco Use Types [...] documented as of this encounter Care Teams Flight Dynamicist Relationship Specialty Start Date End Date Tona Hook MD [address] [place] [address] PCP - General 05/04/17 05/27/23 documented as of this encounter Additional Source Comments The information contained in this document represents components of the legal health record. It is not the complete legal health record.[facility]
--- OUTSIDE RECORDS SUMMARY | 2024-05-05 08:00 | XMS_ITS | Encounter Summary ---
Author Organization [facility] [place] [address] Care Team Providers Care Ct Scan Technologist Name Role Phone Grabiel Kasper MD Primary Care Pr ovider Encounter Details Date Type Department Care Team (Late st Contact Info) Description 05/05/2024 9:00 AM EDT Hospital Encounter TH HISTORIC ENCOUNTERS EASTERN CONVERSION ONLY Grabiel Kasper MD [address] [place] [address] Social History Tobacco Use Types Packs/Day Years [...] 1:00 PM EST Office Visit Adult Medicine [address] [phone] Grabiel Kasper MD [address] [place] [address] 08/07/2025 9:45 AM EST Office Visit Orthopedic Surgery - [place] [address] [phone] Dank Rose, DPM [address] [phone] documented as of this encounter Goals Goal Patient Goal Type Associated Problems Recent Progress Patient-Stated? Author No pain General Yes Lonnie Mackey, PT PT STG x 8 visits from [facility] 12/08/24 General No Lonnie Mackey, PT Note: [...] from poor to fair PT STG Frome [facility] 12-08-24 General No Lonnie Mackey, PT Note: [...] on filedocumented in this encounter Care Teams Ct Scan Technologist Relationship Specialty Start Date End Date Grabiel Kasper MD [address] [place], [place] PCP - General Internal Medicine 02/02/22 documented as of this encounter
--- NOTE | ~2025-07-15 | XR_ITS ---
CLINICAL HISTORY: cough 1 view chest x-ray. Comparison: CT/REG/IL/SR - CT CHEST ANGIOGRAPHY WITH IV CONTRAST - 07/03/25 12:42 EST CR/SR - XR CHEST 2 VIEWS - 07/03/25 08:53 EST Findings: Normal lung volumes. Lungs are clear. No pneumothorax or pleural effusion. Heart size normal. No passive venous congestion. No midline shift or tracheal deviation. No acute fracture. Impression: 1. No acute cardiopulmonary disease. This document has been electronically signed by: Desean Leal MD on 07/15/2025 10:26:32
--- NOTE | ~2025-07-15 | XR_ITS ---
CLINICAL HISTORY: cough, crackles left base --- Additional Notes or Special Instructions: lateral please Chest Radiograph, lateral view Comparison: CR - XR CHEST 1V - 07/15/25 09:[address]/REG/UT/SR - CT CHEST ANGIOGRAPHY WITH IV CONTRAST - 07/03/25 12:42 EST CR/SR - XR CHEST 2 VIEWS - 07/03/25 08:53 EST CR - XR CHEST 1V - 04/08/25 07:33 EDT Findings: Cardiomegaly. Normal mediastinal contours. No pneumothorax. No opacity. No pleural effusion. No acute findings in the upper abdomen. No acute fracture. Impression: No acute findings. This document has been electronically signed by: Marimar Wang MD on 07/15/2025 14:46:13
--- NOTE | 2025-07-15 09:17 | ECG_ITS ---
Test Reason : cp Blood Pressure : */* mmHG Vent. Rate : 58 BPM Atrial Rate : 58 BPM P-R Int : 194 ms QRS Dur : 82 ms QT Int : 404 ms P-R-T Axes : * 24 41 degrees QTcB Int : 396 ms Sinus bradycardia with occasional Premature ventricular complexes Otherwise normal ECG When compared with ECG of 03-Jul-2025 10:09, No significant change was found Referred By: Generic ED Physician Electronically Signed By: IRENE THOMPSON MD
[2025-07-15 09:23] VITALS: BP 155/67; PULSE 68; RESP 20; TEMP 37.1; O2SAT 95; BMI 30.6
[2025-07-15 10:18] LABS: Hematocrit 39.3 % (42.0-52.0); Hemoglobin 13.4 g/dl (14.0-18.0); Imm Gran Abs Auto 0.03 X10*3/uL (0.00-0.03); Imm Gran Pct Auto 0.5 % (0.0-0.4); Lymphocytes Absolute Auto 0.7 X10*3/uL (1.2-4.9); Mean Corpuscular HGB Conc 34.1 g/dl (31.0-36.0); Mean Corpuscular Hemoglobin 31.8 pg (27.0-33.0); Mean Corpuscular Volume 93.1 fL (80.0-98.0); NRBC Abs Auto 0.000 X10*3/uL (0.0-0.012); NRBC Pct Auto 0.0 /100WBC (0.0-0.2); Platelet Count 256 X10*3/uL (160-400); Red Blood Count 4.22 X10*6/uL (4.60-5.80); White Blood Count 6.6 X10*3/uL (4.8-10.8)
[2025-07-15 10:19] LABS: MANUAL DIFF FLAG NO
[2025-07-15 10:33] LABS: Alanine Aminotransferase 21 U/L (0-40); Albumin Level 4.1 g/dL (3.5-5.0); Alkaline Phosphatase 58 U/L (39-117); Anion Gap 11 (12-20); Aspartate Amino Transferase 30 U/L (5-37); Blood Urea Nitrogen 15 mg/dL (9-16); Calcium 8.9 mg/dL (8.4-10.2); Carbon Dioxide 25 mmol/L (22-29); Chloride 109 mmol/L (96-108); Creatinine Clr Calc Pharmacy 85.2; Estimated Glomerular Filt Rate > 60; Lipase 8 U/L (8-78); Potassium 3.8 mmol/L (3.3-5.1); Sodium 141 mmol/L (135-145); Total Protein 6.7 g/dL (6.5-8.0)
[2025-07-15 10:40] LABS: NT Pro B Type Natriuretic Pept 351.1 pg/mL (<300); Troponin-I High Sensitivity 4.1 ng/L (<3.5-35.0)
[2025-07-15 11:21] LABS: Resp Syncy Virus RNA Qual PCR NEGATIVE (Negative); SARS COV2 PCR INHOUSE NEGATIVE (Negative)
[2025-07-15 11:27] VITALS: BP 139/69; PULSE 64; RESP 16; TEMP 36.8; O2SAT 96
--- OUTSIDE RECORDS SUMMARY | 2025-07-15 11:29 | XMS_ITS | Clinical Summary ---
Author Organization Patient Business Ser [facility] [place] Address [address] [place] [address] Care Team Providers Care Metal Drilling Machine Operator Name Role Phone Grabiel Kasper [...] disorder with single episode, in partial remission ([facility] V24) Take 1 tablet (20 mg total) [...] pulmonary disease, unspecified COPD type (CMS/HCC V24, CMS/[facility] V28) Inhale 1 puff by mouth 1 [...] mouth at bedtime. 90 each 1 05/15/20 Active furosemide (LASIX) 20 mg tabletIndications: Chronic venous insufficiency Take 1 tablet (20 mg total) by mouth 1 (one) time each day if needed (edema). 90 tablet 1 06/11/20 026 Active lactulose (CHRONULAC) solutionIndication s:Constipation, unspecified constipation type Take 30 mL (20 g total) by mouth 2 (two) times a day. 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 I [...] Type Department Care Team Description 07/04/2025 Telephone Adult Medicine [address] [phone] Grabiel Kasper MD 07/04/2025 Results Follow-Up [address] [phone] Grabiel Kasper MD 06/27/2025 Nurse Triage Adult Medicine South - [address] [phone] Grabiel Kasper MD 06/21/2025 12:07 PM EST - 06/21/2025 11:59 PM EST Hospital Encounter Radiology Department [address] [phone] Gait abnormality Discharge Disposition: Home or Self Care 06/11/2025 2:00 PM EST Office Visit Adult Medicine [address] [phone] Grabiel Kasper MD Longstanding persistent atrial fibrillation (CMS/HCC V24, CMS/HCC V28) (Primary Dx); Mild episode [...] 9:45 AM EST Office Visit Orthopedics [address] [phone] Juve Menard PA Primary osteoarthritis of left knee (Primary Dx) 06/07/2025 Telephone Adult [address] [phone] Grabiel Kasper MD 06/04/2025 8:10 AM EST Lab Draw Station [address] Longstanding persistent atrial fibrillation (CMS/HCC V24, CMS/HCC V28); Mixed hyperlipidemia 06/04/2025 Results Follow-Up Adult [address] [phone] Grabiel Kasper MD 05/17/2025 Telephone Adult [address] [phone] Grabiel Kasper MD 05/17/[address] [phone] Grabiel Kasper MD 05/07/2025 2:30 PM EDT Office Visit Orthopedic Surgery [address] [phone] Dank Rose, DPM Peripheral venous insufficiency (Primary Dx); Bilateral femoral artery stenosis (CMS/HCC V24); Dermatophytosis of nail; Primary osteoarthritis of both feet; Pain in toe of right foot; Pain in toe of left foot 04/17/2025 Telephone Adult Medicine [address] [phone] Marycruz Alonzo MA 04/17/2025 Telephone Adult [address] [phone] Grabiel Kasper MD from Last 3 Months Immunizations Immunization Administration Dates Next Due COVID-19 (Pfizer/Comirnaty) 12yo and older 04/14/2023 H1N1 Inj Preservative Free 09/23/2009 Hepatitis A Adult (Havrix; V aqta) 19yo and older 05/19/2017,10/08/2016 Hepatitis A-Hepatitis B Adul t (Twinrix) 18yo and older 05/19/2017,11/09/2016,10/08/2016 Hepatitis B (Gotqmir-X-Xmnsi , Recombivax HB-Adult) 19yo and older 05/19/2017,11/09/2016,10/08/2016 [...] Date Site/Laterality Comments KNEE ARTHROPLASTY Left PROCEDURE: [place] ARTHRS KNEE ABRASION ARTHRP/SENIOR ECONOMIST DRLG/MICROFX; COMMENT: x 2 left SHOULDER ARTHROSCOPY [...] Acquired hemolytic anemia, u nspecified (CMS/HCC V24, CMS/HCC V28) age 29 DX:Acquired hemolytic anemi a, unspecified (HCC); COMMENT: Resolved - 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 Unspecified transient cerebr al ischemia 1997 DX:Unspecified transient cer ebral ischemia; COMMENT: Carotid US Mri normal 1997 Essential hypertension, benign 01/11/2006 D X:Essential hypertension, benign Chronic bronchitis ([facility] V24, [facility] V28) 09/23/2009 DX:Chronic bronchitis (HCC) Fibrosis of liver DX:Fibrosis of liver; COMMENT: 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 Chest pain, atypical DX:Chest pa in, atypical; COMMENT: admit to [facility]; neg stress MIBI Lab test negative for COVID-19 virus 10/25/2020 DX:Lab test negative for COVID- 19 virus Actinic keratoses 08/20/2022 DX:Actinic ker atoses Acute cough 12/16/2022 DX:Acute cough Diverticulitis of colon with out hemorrhage 11/16/2005 Hyperlipidemia Aortic aneurysm ([facility] V24) Atrial fibrillation ([facility] V24, [facility] V28) CVA (cerebral vascular accid ent) ([facility] V24, [facility] V28) Seizures ([facility] V24, [facility] V28) COPD (chronic obstructive pu lmonary disease) ([facility] V24, [facility] V28) Sleep apnea Family History Medical History [...] 1:00 PM EST Office Visit Adult Medicine [address] [phone] Grabiel Kasper MD [address] [place] [address] 08/07/2025 9:45 AM EST Office Visit Orthopedic Surgery - [place] [address] [phone] Dank Rose DPM [address] [phone] Health Maintenance Due Date Last Done Comments [...] PT STG x 8 visits from [facility] 12/08/24 General No Lonnie Mackey PT Note: [x] = completed goal [] [...] poor to fair PT STG Frome [facility] 12-08-24 General No Lonnie Mackey, PT [...] Routine 06/21/2025 1:58 PM EST Gait abnormality AZ ARTHROCENTESIS/ASPIRA TION/INJECTION MAJOR JOINT/BURSA W/O U/S GUIDANCE [...] Signed Date: 07/03/2025 21:15 ET Workstation ID: [id number] Transcribed By: Self Edit Transcribed Date: 07/03/2025 [...] Signed Date: 07/03/2025 21:15 ET Workstation ID: [id number] Transcribed By: Self Edit Transcribed Date: 07/03/2025 20:59 ET Grabiel Kasper MD IMG MRI PROCEDUR ES Final Result * AZ ARTHROCENTESIS/ASPIRATION/INJECTION MAJOR JOINT/BURSA W/O U/S GUIDANCE (06/07/2025 9:45 AM EST) Narrative Juve Menard PA - 06/07/2025 9:45 AM EST FEMI [...] mg/dL LAB CHEMISTRY METHOD 06/04/2025 11:37 AM [facility] Triglycerides 73 0 - 150 mg/dL LAB CHEMISTRY METHOD 06/04/2025 11:37 AM [facility] HDL 62 >=40 mg/dL LAB CHEMISTRY METHOD 06/04/2025 11:37 AM [facility] LDL Calculated 55 0 - 100 mg/dL LAB CHEMISTRY METHOD 06/04/2025 11:37 AM [facility] Comment:Estimated LDL Calcul ated using equation: Total cholesterol - HDL cholesterol - (Triglycerides/5) VLDL Cholesterol Gabriele 14.6 mg/dL LAB CHEMISTRY METHOD 06/04/2025 11:37 AM [facility] Non HDL Chol. (LDL+VLDL) 70 <145 mg/dL LAB CHEMISTRY METHOD 06/04/2025 11:37 AM [facility] Chol/HDL Ratio 2.1 0.0 - 4.4 LAB CHEMISTRY METHOD 06/04/2025 11:37 AM [facility] Blood Venous blood specimen / Unknown Venipuncture / Unknown 06/04/2025 8:18 AM EST 06/04/2025 8:18 AM EST Grabiel Kasper MD LAB BLOOD ORDERA BLES Final Result [facility] [address] [place] [address], [place] [phone] * (ABNORMAL) CBC auto differential (06/04/2025 8:18 AM EST) [facility] WBC 5.3 4.8 - 10.8 K/mcL LAB HEMETOLOGY METHOD 06/04/2025 10:53 AM [facility] RBC 4.30(L) 4.50 - 5.50 M/mcL LAB HEMETOLOGY METHOD 06/04/2025 10:53 AM [facility] Hemoglobin 13.7 13.5 - 17.5 g/dL LAB HEMETOLOGY METHOD 06/04/2025 10:53 AM [facility] Hematocrit 41.2(L) 42.0 - 54.0 % LAB HEMETOLOGY METHOD 06/04/2025 10:53 AM [facility] MCV 96.9 79.0 - 98.0 FL LAB HEMETOLOGY METHOD 06/04/2025 10:53 AM [facility] MCH 32.2(H) 27.0 - 32.0 pcg LAB HEMETOLOGY METHOD 06/04/2025 10:53 AM [facility] MCHC 33.3 32.0 - 37.0 g/dL LAB HEMETOLOGY METHOD 06/04/2025 10:53 AM [facility] RDW 14.1 11.0 - 15.0 % LAB HEMETOLOGY METHOD 06/04/2025 10:53 AM [facility] Platelets 238 130 - 400 K/mcL LAB HEMETOLOGY METHOD 06/04/2025 10:53 AM [facility] MPV 10.3 7.0 - 11.0 FL LAB HEMETOLOGY METHOD 06/04/2025 10:53 AM [facility] NRBC 0.0 <1.0 % LAB HEMETOLOGY METHOD 06/04/2025 10:53 AM [facility] NRBC Absolute 0.00 <0.10 K/mcL LAB HEMETOLOGY METHOD 06/04/2025 10:53 AM [facility] Neutrophils Relative 68.8 % LAB HEMETOLOGY METHOD 06/04/2025 10:53 AM [facility] Lymphocytes Relative 18.4 % LAB HEMETOLOGY METHOD 06/04/2025 10:53 AM [facility] Monocytes Relative 7.8 % LAB HEMETOLOGY METHOD 06/04/2025 10:53 AM [facility] Eosinophils Relative 3.4 % LAB HEMETOLOGY METHOD 06/04/2025 10:53 AM [facility] Basophils Relative 1.0 % LAB HEMETOLOGY METHOD 06/04/2025 10:53 AM [facility] Immature Granulocytes Relative 0.6 % LAB HEMETOLOGY METHOD 06/04/2025 10:53 AM [facility] Neutrophils Absolute 3.62 1.50 - 7.00 K/mcL LAB HEMETOLOGY METHOD 06/04/2025 10:53 AM [facility] Lymphocytes Absolute 0.97(L) 1.00 - 5.00 K/mcL LAB HEMETOLOGY METHOD 06/04/2025 10:53 AM [facility] Monocytes Absolute 0.41 0.20 - 1.00 K/mcL LAB HEMETOLOGY METHOD 06/04/2025 10:53 AM [facility] Eosinophils Absolute 0.18 0.00 - 0.50 K/mcL LAB HEMETOLOGY METHOD 06/04/2025 10:53 AM [facility] Basophils Absolute 0.05 0.00 - 0.20 K/[facility] LAB HEMETOLOGY METHOD 06/04/2025 10:53 AM EST [facility] Immature Granulocytes Absolute 0.03 0.00 - 0.03 /[facility] LAB HEMETOLOGY METHOD 06/04/2025 10:53 AM EST [facility] Blood Venous blood specimen / Unknown Venipuncture / Unknown 06/04/2025 8:18 AM EST 06/04/2025 8:18 AM EST Grabiel Kasper MD LAB BLOOD ORDERA BLES Final Result [facility] [address] [place] [address], [place] [phone] * Hemoglobin A1c (06/04/2025 8:18 AM EST) Hemoglobin A1C 5.4 <6.5 % LAB CHEMISTRY METHOD 06/04/2025 11:50 AM EST [facility] Mean Bld Glu Estim. 108 mg/dL LAB CHEMISTRY METHOD 06/04/2025 11:50 AM EST [facility] Blood Venous blood specimen / Unknown Venipuncture / Unknown 06/04/2025 8:18 AM EST 06/04/2025 8:18 AM EST Grabiel Kasper MD LAB BLOOD ORDERA BLES Final Result [facility] [address] [place] [address], [place] [phone] * (ABNORMAL) Comprehensive metabolic panel (06/04/2025 8:18 AM EST) Sodium 140 133 - 145 mmol/L LAB CHEMISTRY METHOD 06/04/2025 11:37 AM EST [facility] Potassium 4.0 3.5 - 5.5 mmol/L LAB CHEMISTRY METHOD 06/04/2025 11:37 AM [facility] Chloride 108 96 - 110 mmol/L LAB CHEMISTRY METHOD 06/04/2025 11:37 AM [facility] CO2 27 21 - 32 mmol/L LAB CHEMISTRY METHOD 06/04/2025 11:37 AM [facility] Anion Gap 5 3 - 11 LAB CHEMISTRY METHOD 06/04/2025 11:37 AM [facility] Glucose 105(H) 70 - 100 mg/dL LAB CHEMISTRY METHOD 06/04/2025 11:37 AM [facility] BUN 16 5 - 25 mg/dL LAB CHEMISTRY METHOD 06/04/2025 11:37 AM [facility] Creatinine 0.82 0.70 - 1.30 mg/dL LAB CHEMISTRY METHOD 06/04/2025 11:37 AM [facility] eGFR 87 >=60 mL/min/1. 73m2 LAB CHEMISTRY METHOD 06/04/2025 11:37 AM [facility] Comment:Calculation based on the Chronic Kidney Disease Epidemiology Collaboration (CKD-EPI) equation refit without adjustment for race. BUN/Creatinine Ratio 19.5 LAB CHEMISTRY METHOD 06/04/2025 11:37 AM [facility] Calcium 9.1 8.5 - 10.5 mg/dL LAB CHEMISTRY METHOD 06/04/2025 11:37 AM [facility] AST (SGOT) 11 10 - 42 unit/L LAB CHEMISTRY METHOD 06/04/2025 11:37 AM [facility] ALT (SGPT) 19 10 - 60 unit/L LAB CHEMISTRY METHOD 06/04/2025 11:37 AM [facility] Alkaline Phosphatase 54 42 - 121 unit/L LAB CHEMISTRY METHOD 06/04/2025 11:37 AM [facility] Total Protein 6.8 6.0 - 8.0 g/dL LAB CHEMISTRY METHOD 06/04/2025 11:37 AM EST [facility] Albumin 3.9 3.2 - 5.0 g/dL LAB CHEMISTRY METHOD 06/04/2025 11:37 AM EST [facility] Total Bilirubin 0.5 0.0 - 1.4 mg/dL LAB CHEMISTRY METHOD 06/04/2025 11:37 AM EST [facility] Blood Venous blood specimen / Unknown Venipuncture / Unknown 06/04/2025 8:18 AM EST 06/04/2025 8:18 AM EST Grabiel Kasper MD LAB BLOOD ORDERA BLES Final Result [facility] [address] [place] [address], from Last 3 Months Insurance [employer] Care Teams Metal Drilling Machine Operator Relationship Specialty Start Date End Date Grabiel Kasper MD [address] [place], [place] PCP - General Internal Medicine 02/02/22
--- OUTSIDE RECORDS SUMMARY | 2025-07-15 11:29 | XMS_ITS | Encounter Summary ---
Author Organization [facility] Address [address] [place], [place] [phone] Phone Care Team Providers Care Quality Compliance Manager Name Role Phone Tona Hook MD Primary Care Provider + Grabiel Kasper MD Primary Care Pr ovider Encounter Details Date Type Department Care Team (Late st Contact Info) Description 08/14/2021 Procedure Pass [address] [address] Social History Tobacco Use Types Packs/Day Years [...] on filedocumented in this encounter Care Teams Quality Compliance Manager Relationship Specialty Start Date End Date Tona Hook MD [address] [place] [address] PCP - General 05/04/17 05/27/23 Grabiel Kasper MD [address] [place] [address] PCP - General Family Medicine 05/28/23 documented as of this encounter Additional Source Comments The information contained in this document represents components of the legal health record. It is not the complete legal health record.[facility]
--- OUTSIDE RECORDS SUMMARY | 2025-07-15 11:29 | XMS_ITS | Encounter Summary ---
Author Organization [facility] Address [address] [place], [place] [phone] Phone Care Team Providers Care Mothercraft Nurse Name Role Phone Tona Hook MD Primary Care Provider + Grabiel Kasper MD Primary Care Pr ovider Reason for Referral * Outpatient Procedure - Closed Specialty Diagnoses / Procedures Referred By Contac t Referred To Contact Radiology Diagnoses Cerebrovascular accident (CVA), unspecified mechanism Procedures US Carotid Duplex Complete (Bilateral) Tan Son MD Phone: tel: fax: mailto:[email or web address] Referral ID Status Reason Start Date Expiration Date Visits Re quested Visits Authorized [id number] Closed 12/17/2021 12/17/2022 1 1 Encounter Details Date Type Department Care Team (Latest Contact Info) Description 12/17/2021 Transcribe Orders Virtual Department [address] [place] [address] Tan Son MD [address] [place] [address], [address] [place] [address] [email or web address] Cerebrovascular accident (CVA), unspecified mechanism (Primary [...] mechanism documented in this encounter Care Teams Mothercraft Nurse Relationship Specialty Start Date End Date Tona Hook MD [address] [place] [address] PCP - General 05/04/17 05/27/23 Graibel Kasper MD [address] [place] [address] PCP - General Family Medicine 05/28/23 documented as of this encounter Additional Source Comments The information contained in this document represents components of the legal health record. It is not the complete legal health record.[facility]
--- OUTSIDE RECORDS SUMMARY | 2025-07-15 11:29 | XMS_ITS | Encounter Summary ---
Author Organization [facility] Address [address] [place], [place] [id number] Phone Care Team Providers Care Distribution Superintendent Name Role Phone Tona Hook MD Primary [...] BRAIN Tan Son MD Phone: tel: fax: mailto:[email or web address] Referral ID Status Reason Start Date Expiration Date Visits Re quested Visits Authorized [id number] Closed 09/08/2021 10/05/2021 1 1 Encounter Details Date Type Department Care Team (Latest Contact Info) Description 08/14/2021 Transcribe Orders Virtual Department [address] [place] [address] Tan Son MD [address] [place] [address], [address] [place] [address] [email or web address] Numbness of face (Primary Dx); Nausea; [...] numbness documented in this encounter Care Teams Distribution Superintendent Relationship Specialty Start Date End Date Tona Hook MD [address] [place] [address] PCP - General 05/04/17 05/27/23 Grabiel Kasper MD [address] [place] [address] PCP - General Family Medicine 05/28/23 documented as of this encounter Additional Source Comments The information contained in this document represents components of the legal health record. It is not the complete legal health record.[facility]
--- OUTSIDE RECORDS SUMMARY | 2025-07-15 11:29 | XMS_ITS ---
Author Organization [facility] Address [address] [place] [address] Care Team Providers Care Railroad Car Letterer Name Role Phone Grabiel Kasper MD Primary [...] 2:52 PM EST): Advised to rescheduled missed [place] [facility] appt for routine surveillance Assessment & [...] meantime he should let him know his fluid dynamicist regarding the left- sided chest pain. I [...]
--- OUTSIDE RECORDS SUMMARY | 2025-07-15 11:30 | XMS_ITS | Encounter Summary ---
Author Organization [facility] Address [address] [place] [address] Care Team Providers Care Sports Physiologist Name Role Phone Grabiel Kasper MD Primary Care Pr ovider Encounter Details Date Type Department Care Team (Late st Contact Info) Description 07/04/2025 Results Follow-Up [address] [phone] Grabiel Kasper MD [address] [place] [address] Social History Tobacco Use Types Packs/Day Years [...] EST Office Visit Adult Medicine South - [place] [address] [place], [place] [phone] Grabiel Kasper MD [address] [place], [place] 08/07/2025 9:45 AM EST Office Visit Orthopedic Surgery - [place] [address] [phone] Dank Rose, DPM [address] [phone] documented as of this encounter Goals Goal Patient Goal Type Associated Problems Recent Progress Patient-Stated? Author No pain General Yes Lonnie Mackey, PT PT STG x 8 visits from [facility] 12/08/24 General No Lonnie Mackey, PT [...] poor to fair PT STG Frome [facility] 12-08-24 General No Lonnie Mackey, PT [...] documented as of this encounter Care Teams Sports Physiologist Relationship Specialty Start Date End Date Grabiel Kasper MD [address] [facility], [place] PCP - General Internal Medicine 02/02/22 documented as of this encounter
--- OUTSIDE RECORDS SUMMARY | 2025-07-15 11:30 | XMS_ITS | Encounter Summary ---
Author Organization [facility] Address [address] [place] [address] Care Team Providers Care Hydramatic Specialist Name Role Phone Grabiel Kasper MD Primary Care Pr ovider Encounter Details Date Type Department Care Team (Late st Contact Info) Description 06/04/2025 Results Follow-Up [address] [phone] Grabiel Kasper MD [address] [place] [address] Social History Tobacco Use Types Packs/Day Years [...] EST Office Visit Adult Medicine South - [place] [address] [place], [place] [phone] Grabiel Kasper MD [address] [place], [place] 08/07/2025 9:45 AM EST Office Visit Orthopedic Surgery - [place] [address] [phone] Dank Rose, DPM [address] [phone] documented as of this encounter Goals Goal Patient Goal Type Associated Problems Recent Progress Patient-Stated? Author No pain General Yes Lonnie Mackey, PT PT STG x 8 visits from [facility] 12/08/24 General No Lonnie Mackey, PT [...] from poor to fair PT STG Frome [facility] 12-08-24 General No Lonnie Mackey, PT [...] on filedocumented in this encounter Care Teams Hydramatic Specialist Relationship Specialty Start Date End Date Grabiel Kasper MD [address] [place], [place] PCP - General Internal Medicine 02/02/22 documented as of this encounter
--- OUTSIDE RECORDS SUMMARY | 2025-07-15 11:30 | XMS_ITS | Clinical Summary ---
Author Organization [facility] Address [address] [place], [place] [phone] Phone Care Team Providers Care Rehabilitation Teacher Name Role Phone Grabiel Kasper MD [...] MALGORZATA CREWS Comment: xamarioto. cardiology Dr. Giron [facility]. 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 Neurology Dr. Jon Sleep apnea [...] topic Medical Devices Not on file Insurance [address] PLAN Member Subscriber Plan / P[facility] Name:Rm Palumbo Relation to Subscriber:Self Name:Rm Palumbo Payer ID:[id number] ([facility]) Type:O Address: [address] [address] [place] [address] [place] [address] HEALTH PLAN Member Subscriber Plan / Payer ([facility]Present) Name:Rm Palumbo Relation to Subscriber:Self Name:Rm Palumbo Payer ID:[id number] ([facility]) Type:HMO Address: [address] [address] [place] [address] [place] [address] HEALTH PLAN Care Teams Rehabilitation Teacher Relationship Specialty Start Date End Date Grabiel Kasper MD PCP - General Family Medicine 05/28/23 Additional Source Comments The information contained in this document represents components of the legal health record. It is not the complete legal health record.[facility]
--- OUTSIDE RECORDS SUMMARY | 2025-07-15 11:30 | XMS_ITS | Encounter Summary ---
Author Organization [facility] Address [address] [place], [place] [phone] Phone Care Team Providers Care Ground Crew Chief Name Role Phone Tona Hook MD Primary Care Provider + Grabiel Kasper MD Primary Care Pr ovider Encounter Details Date Type Department Care Team (Late st Contact Info) Description 12/07/2017 Procedure Pass [facility], [address] [address] Social History Tobacco Use Types Packs/Day Years [...] documented as of this encounter Care Teams Ground Crew Chief Relationship Specialty Start Date End Date Tona Hook MD [address] [place] [address] PCP - General 05/04/17 05/27/23 Grabiel Kasper MD [address] [place] [address] PCP - General Family Medicine 05/28/23 documented as of this encounter Additional Source Comments The information contained in this document represents components of the legal health record. It is not the complete legal health record.[facility]
--- OUTSIDE RECORDS SUMMARY | 2025-07-15 11:30 | XMS_ITS | Encounter Summary ---
Author Organization [facility] Address [address] [place], [place] [id number] Phone Care Team Providers Care Radiology Transporter Name Role Phone Tona Hook MD Primary Care Provider + Grabiel Kasper MD Primary Care Pr ovider Encounter Details Date Type Department Care Team (Late st Contact Info) Description 12/07/2017 Ancillary Orders Virtual Department [address] [place] [address] Miguelangel Sharma MD [address] [place] [id number] Aching pain Social History Tobacco Use Types [...] narrowing from C4-5 through C6-7. POS - [id number] Edited by: Jenelle Unger on 12/15/2017 7:23 [...] foraminalnarrowing from C4-5 through C6-7. POS - [id number] Edited by: Jenelle Unger on 12/15/2017 7:23 [...] documented as of this encounter Care Teams Radiology Transporter Relationship Specialty Start Date End Date Tona Hook MD [address] [place] [address] PCP - General 05/04/17 05/27/23 Grabiel Kasper MD [address] [place] [id number] PCP - General Family Medicine 05/28/23 documented as of this encounter Additional Source Comments The information contained in this document represents components of the legal health record. It is not the complete legal health record.[facility]
--- NOTE | 2025-07-15 11:31 | ED.CHESTPAIN ---
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 He has not been feeling well. He has had a lot of respiratory symptoms. He was seen here on June 27 but left the emergency room prior to seeing a provider. He returned on July 03 and has a fairly extensive workup including a DVT ultrasound of his legs and and a CT scan of his chest. The DVT ultrasound showed old clot in the left femoral vein but no acute clots. The CT scan of his chest was negative. He tested positive for influenza A. He was prescribed Tamiflu. He was also given a 5 day course of doxycycline given his history of smoking. The patient was doing reasonably well but today he had increased coughing which seemed to provoke pains in his legs and his abdomen and so he came back to the emergency room. He also feels that his ankles are somewhat swollen today. Related Data Home Medications ?Medication ?Instructions ?Recorded ?Confirmed albuterol sulfate 90 mcg/actuation 2 puff inhalation Q4H PRN wheezing 12/12/20 02/02/25 aerosol inhaler ascorbic acid (vitamin C) 500 mg 500 mg PO DAILY 05/22/21 02/02/25 capsule atorvastatin 20 mg tablet 20 mg PO DAILY 11/25/21 02/02/25 tamsulosin 0.4 mg capsule 0.4 mg PO BID 11/25/21 02/02/25 carboxymethylcellulose sodium 0.5 1 drp ophthalmic (eye) TID PRN Dry 03/12/22 02/02/25 % eye drops Eye(S) citalopram 40 mg tablet 40 mg PO DAILY 04/19/23 02/02/25 levetiracetam 1,000 mg tablet 750 mg PO BID 04/19/23 02/02/25 nitroglycerin 0.3 mg sublingual 0.3 mg sublingual Q5M 12/02/23 02/02/25 tablet topiramate 25 mg tablet 25 mg PO DAILY 01/07/25 02/02/25 Previous Rx's ?Medication ?Instructions ?Recorded diltiazem HCl 180 mg 180 mg PO DAILY #90 caps 10/23/24 capsule,extended release 24 hr isosorbide mononitrate 30 mg 30 mg PO DAILY #90 tabs 02/02/25 tablet,extended release 24 hr rivaroxaban 20 mg tablet (Xarelto) 20 mg PO QPM #90 tabs 04/26/25 doxycycline hyclate 100 mg tablet 100 mg PO BID 5 days #10 tabs 07/03/25 albuterol sulfate 90 mcg/actuation 2 puff inhalation Q4-6H PRN 07/15/25 aerosol inhaler (Ventolin HFA) shortness of breath or wheezing #8.5 grams azithromycin 250 mg tablet 250 mg PO DAILY 4 days #4 tabs 07/15/25 prednisone 20 mg tablet 40 mg (2 x 20 mg) PO DAILY 4 days 07/15/25 #8 tabs Allergies Allergy/AdvReac Type Severity Reaction Status Date / Time penicillin V Allergy Severe Hives Verified 07/15/25 09:27 piroxicam (PIROXICAM) Allergy Intermediate HIVES/SOB Verified 07/15/25 09:27 rofecoxib (From VIOXX) Allergy Intermediate HIVES/SOB Verified 07/15/25 09:27 Penicillins (PENICILLINS) Allergy Unknown UNKNOWN Verified 07/15/25 09:27 phenacetin (PHENACETIN) Allergy Unknown UNK Verified 07/15/25 09:27 From VICODIN Allergy Intermediate HIVES/SOB Uncoded 07/10/25 06:20 Review of Systems Review of Systems: Yes all other systems are reviewed and are negative PMFSH Past Medical History Medical History Paroxysmal atrial fibrillation HTN (hypertension) CAD (coronary artery disease) Class 1 obesity Chronic anticoagulation CAD (coronary artery disease) Seizure disorder Surgical History History of left knee surgery History of right hip replacement History of ear surgery S/P skin biopsy Social History Social History Household Members: None Housing: House Do you presently have visiting nurse or other home services: No Alcohol intake: current Alcohol intake frequency: holidays/special occasions only Alcohol type: beer Comment: pt refusing bed alarm Patient Tobacco Use Status: Former Tobacco user Years Smoked: 30 +/- Smoked in Last 30 Days: No Use of substances other than those prescribed or required for medical reasons: No Advance Directives: Yes Advance Directives on File: Yes Advance Directives Date on File: 01/10/25 Do you have a plan to hurt others: No Plan service: No Physical Exam Vital Signs: Vital Signs: Last Vital Signs Temp 98.3 F 07/15/25 14:02 Pulse 64 07/15/25 14:02 Resp 16 07/15/25 14:02 BP 139/69 07/15/25 14:02 Pulse Ox 96 07/15/25 14:02 O2 Del Method Room Air 07/15/25 14:02 BMI result Body Mass Index 30.6 Const: Other: The patient is an 84-year-old man who was awake and alert. He does not appear in acute distress. He was pleasant and cooperative. Orientation/consciousness: patient oriented x3 HEENT: Other: The face is symmetrical. ?Mucous membranes moist. Eyes: Other: Pupils are round equal, conjunctivae are clear, extraocular movements intact Neck: Neck: Yes normal visual inspection, Yes full ROM and Yes no JVD Resp: Other: No increased work of breathing. I felt there were some crackles at the left base. Possibly some end expiratory wheezes with coughing. Cardio: Rate: regular rate Rhythm: regular rhythm Heart sounds: S1 normal heart sound present and S2 normal heart sound present GI: Other: Abdomen is soft and nontender Skin: Other: The skin is dry and unremarkable Neuro: General: patient oriented x3, tone normal, moves all extremities, no focal motor deficits and CN's II-XI intact bilaterally Extrem: Other: There is no calf swelling or tenderness. No asymmetry. No peripheral edema. Medications Administered Discontinued Medications Generic Name Dose Route Start Last Admin Trade Name Freq PRN Reason Stop Dose Admin Albuterol Sulfate 4 puff 07/15/25 12:39 07/15/25 13:04 Albuterol Sulfate 90 Mcg 8 Gm Inhaler INHALE 07/15/25 12:40 4 puff ONCE ONE Administration Azithromycin 500 mg 07/15/25 13:37 07/15/25 13:44 Azithromycin 500 Mg Tablet PO 07/15/25 13:38 500 mg ONCE ONE Administration Prednisone 40 mg 07/15/25 13:37 07/15/25 13:44 Prednisone 20 Mg Tablet PO 07/15/25 13:38 40 mg ONCE ONE Administration Medical Decision Making Medical Decision Making [facility] Narrative: The patient is an 84-year-old male who was here primarily for a cough. He has a smoking history. He probably has some degree of COPD. His workup in the emergency room today is reassuring. No significant abnormal findings are apparent in his chest x-ray your labs. He does not look clinically ill although he was coughing frequently. On his physical exam I thought he had some crackles at the left base but I do not see any signs of a retrocardiac pneumonia and a lateral x-ray. The patient was recently put on a course of doxycycline without improvement. The patient has a inhalers including a steroid inhaler but he does not seem to be very facile with their use. I ordered some albuterol puffs and the respiratory therapist reviewed technique for an MDI with the an AeroChamber. The patient felt that this was significantly helpful. He will be discharged with a prescription for albuterol that he should use with a spacer. Also a course of prednisone and azithromycin. Lab Data 07/15/25 10:04 07/15/25 10:04 Labs: Lab Results 07/15/25 Range/Units 10:04 WBC 6.6 (4.8-10.8) X10*3/uL RBC 4.22 L (4.60-5.80) X10*6/uL Hgb 13.4 L (14.0-18.0) g/dl Hct 39.3 L (42.0-52.0) % MCV 93.1 (80.0-98.0) fL MCH 31.8 (27.0-33.0) pg MCHC 34.1 (31.0-36.0) g/dl RDW 14.5 (11.0-16.0) % Plt Count 256 D (160-400) X10*3/uL MPV 9.0 L (9.4-12.4) fL Immature Gran % (Auto) 0.5 H (0.0-0.4) % Neut % (Auto) 79.5 H (45-73) % Lymph % (Auto) 10.6 L (20-40) % Evangeline % (Auto) 6.8 (2-11) % Eos % (Auto) 2.3 (0-4) % Baso % (Auto) 0.3 (0-2) % Lymph # (Auto) 0.7 L (1.2-4.9) X10*3/uL Evangeline # (Auto) 0.5 (0.1-1.2) X10*3/uL Eos # (Auto) 0.2 (0.0-0.4) X10*3/uL Baso # (Auto) 0.0 (0.0-0.2) X10*3/uL Abs Immat Gran (auto) 0.03 (0.00-0.03) X10*3/uL Absolute Neuts (auto) 5.3 (2.0-8.3) x10*3/uL Absolute Nucleated RBC 0.000 (0.0-0.012) X10*3/uL Nucleated RBC % (auto) 0.0 (0.0-0.2) /100WBC Sodium 141 (135-145) mmol/L Potassium 3.8 (3.3-5.1) mmol/L Chloride 109 H (96-108) mmol/L Carbon Dioxide 25 (22-29) mmol/L Anion Gap 11 L (12-20) BUN 15 (9-16) mg/dL Creatinine 0.73 (0.5-1.4) mg/dL Estim Creat Clear Calc 85.2 Estimated GFR > 60 Random Glucose 99 (60-115) mg/dL Calcium 8.9 (8.4-10.2) mg/dL Total Bilirubin 0.8 (0.0-1.0) mg/dL Direct Bilirubin 0.3 (0.0-0.5) mg/dL AST 30 (5-37) U/L ALT 21 (0-40) U/L Alkaline Phosphatase 58 (39-117) U/L Troponin I High Sens 4.1 (<3.5-35.0) ng/L C-Reactive Protein 0.48 (< or = 0.50) mg/dL NT-Pro-B Natriuret Pep 351.1 H (<300) pg/mL Total Protein 6.7 (6.5-8.0) g/dL Albumin 4.1 (3.5-5.0) g/dL Lipase 8 (8-78) U/L Influenza Type A (PCR) NEGATIVE (Negative) Influenza Type B (PCR) NEGATIVE (Negative) RSV RNA Qual (PCR) NEGATIVE (Negative) SARS-CoV-2 RNA (RT-PCR) NEGATIVE (Negative) Discharge Plan Discharge Clinical Impression: Cough, Acute exacerbation of chronic obstructive pulmonary disease Patient Disposition: Home, Self-Care Instructions: How to Use a Metered-Dose Inhaler (DC), COPD (Chronic Obstructive Pulmonary Disease) (ED) Additional Instructions: For the most part your evaluation in the emergency room seems quite reassuring. You may have an episode of what we call a ?COPD exacerbation. ? You has been started on a course of prednisone and the antibiotic azithromycin. Both of these medications are taken once a day. Take your next doses tomorrow. Use the albuterol inhaler with the AeroChamber (spacer) as needed every 4 hours for cough or any shortness of breath. Use acetaminophen (Tylenol) as needed for pain. Follow up with your regular doctor soon. Return to the emergency room if significantly worse. Prescriptions: New azithromycin 250 mg tablet 250 mg PO DAILY 4 Days Qty: 4 0RF Rx Instructions: start on day 2 of therapy prednisone 20 mg tablet 40 mg PO DAILY 4 Days Qty: 8 0RF albuterol sulfate [Ventolin HFA] 90 mcg/actuation HFA aerosol inhaler 2 puff inhalation Q4-6H PRN (Reason: shortness of breath or wheezing) Qty: 8.5 0RF No Action diltiazem HCl 180 mg capsule,extended release 24hr 180 mg PO DAILY Qty: 90 3RF Xarelto 20 mg tablet 20 mg PO QPM Qty: 90 3RF doxycycline hyclate 100 mg tablet 100 mg PO BID 5 Days Qty: 10 0RF topiramate 25 mg tablet 25 mg PO DAILY albuterol sulfate 90 mcg/actuation HFA aerosol inhaler 2 puff inhalation Q4H PRN (Reason: wheezing) ascorbic acid (vitamin C) 500 mg capsule 500 mg PO DAILY tamsulosin 0.4 mg capsule 0.4 mg PO BID atorvastatin 20 mg tablet 20 mg PO DAILY carboxymethylcellulose sodium 0.5 % drops 1 drp ophthalmic (eye) TID PRN (Reason: Dry Eye(S)) levetiracetam 1,000 mg tablet 750 mg PO BID nitroglycerin 0.3 mg tablet, sublingual 0.3 mg sublingual Q5M isosorbide mononitrate 30 mg tablet extended release 24 hr 30 mg PO DAILY Qty: 90 0RF citalopram 40 mg tablet 40 mg PO DAILY Referrals: Grabiel Kasper MD [Primary Care Provider, Family Practice] Interventions: ED Discharge Assessment Last Done: 07/15/25 14:02 Discharge Date/Time: 07/15/25 14:03 Print Language: Albanian
[2025-07-15] MEDS: Albuterol Sulfate 90 MCG 8 GM INHALER 4 PUFF INHALE (13:04)
[2025-07-15 14:02] VITALS: BP 139/69; PULSE 64; RESP 16; TEMP 36.8; O2SAT 96
== END 2025-07-15 14:03 | disposition home or self-care (01) ==
PROVIDERS: Emergency Provider Emergency Medicine; PCP Family Medicine
DX: J44.1 Chronic obstructive pulmonary disease with (acute) exacerbation (principal); R05.9 Cough, unspecified; Z03.818 Encounter for observation for suspected exposure to other biological agents ruled out; R07.9 Chest pain, unspecified; I49.3 Ventricular premature depolarization; R60.0 Localized edema; R00.1 Bradycardia, unspecified; I10 Essential (primary) hypertension; I25.10 Atherosclerotic heart disease of native coronary artery without angina pectoris; Z87.891 Personal history of nicotine dependence
CPT/HCPCS: 36415; 71045; 80048; 80076; 83690; 83880; 84484; 85025; 86140; 87637; 93005; 99284

== ENCOUNTER → 2025-07-15 09:17 | Outpatient (BNV) | payer OTHER, SELFPAY | PROVIDERS: PCP Family Medicine; Visit Provider Internal Medicine Cardiovascular Disease | DX: R00.1 Bradycardia, unspecified (principal) | CPT/HCPCS: 93010 ==

== ENCOUNTER → 2025-07-15 09:31 | Outpatient (BNV) | payer OTHER, SELFPAY | PROVIDERS: PCP Family Medicine; Visit Provider Radiology Diagnostic Radiology | DX: R05.9 Cough, unspecified (principal); R09.89 Other specified symptoms and signs involving the circulatory and respiratory systems | CPT/HCPCS: 71045 ==